=== PATIENT | male | born 1960 | race Caucasian/White ===

== ENCOUNTER 2016-10-18 15:42 | Inpatient (IN) | payer MEDICAID, OTHER ==
[2016-10-18] MEDS ORDERED: Etomidate 20 mg/10ml Inj IV ONE (16:00)
[2016-10-18] MEDS ORDERED: Succinylcholine Chloride 20 mg/ml Syr (5 ml) IV ONE (16:00)
[2016-10-18] MEDS ORDERED: Enalaprilat 2.5 MG/2 ML IV STA (16:05)
--- NOTE | 2016-10-18 16:08 | CT ---
PROCEDURE: CT HEAD WITHOUT CONTRAST. HISTORY: code stroke COMPARISON: None available. TECHNIQUE: Axial computed tomography images were obtained through the head/brain without intravenous contrast. Radiation dose: Total exam DLP = 1321.05 mGy-cm. FINDINGS: HEMORRHAGE: There is acute left basal ganglia hemorrhage. There is intraventricular hemorrhage. There is mass effect upon the left lateral aspect of the 3rd ventricle by the hemorrhagic left basal ganglia. There is no generalized midline shift. There is blood seen in the lateral, 3rd and 4th ventricles and foraminae of Luschka. BRAIN: There is no intracranial mass identified. Minimal cerebral atrophy. Mild to moderate periventricular white matter lucency consistent with chronic microvascular ischemic change. VENTRICLES: As above. Intraventricular hemorrhage. No hydrocephalus. CALVARIUM: Unremarkable. PARANASAL SINUSES: Air-fluid level in the sphenoid sinus common nonspecific. Please correlate for clinical concern of acute sinusitis. MASTOID AIR CELLS: Unremarkable as visualized. No inflammatory changes. OTHER FINDINGS: None. IMPRESSION: Left basal ganglia acute hemorrhage, possibly hypertensive, with associated intraventricular hemorrhage and mass effect upon the left lateral aspect of the 3rd ventricle with the tip shift of the 3rd ventricle towards the right side. No generalized midline shift. Air-fluid level in sphenoid sinus common nonspecific. Please correlate for concern regarding acute sinusitis. Mild involutional changes. The findings in this examination were discussed, by telephone, with Dr. Cornelius at 4:02 p.m. on 10/18/2016.
[2016-10-18 16:14] LABS: BASO # 0.1 K/uL (0.0-0.2); BASO % 0.7 % (0.0-2.0); EOS # 0.1 K/uL (0.0-0.7); HEMATOCRIT 38.7 % (35.0-51.0); LYMPH # 1.9 K/uL (1.0-4.3); LYMPH % 22.3 % (20.0-40.0); MEAN CELL VOLUME 81.9 fL (80.0-94.0); MEAN CORPUSCULAR HGB CONC 32.9 g/dL (33.0-37.0); MEAN PLATELET VOLUME 8.5 fL (7.2-11.7); MONO # 0.4 K/uL (0.0-0.8); MONO % 5.1 % (0.0-10.0); RED CELL DISTRIBUTION WIDTH 14.7 % (11.5-14.5); WHITE BLOOD COUNT 8.4 K/uL (4.8-10.8)
[2016-10-18] MEDS ORDERED: Enalaprilat 2.5 MG/2 ML ONE (16:16)
[2016-10-18 16:25] LABS: INR 1.1
[2016-10-18 16:32] LABS: CHLORIDE 101 mmol/L (98-107); SODIUM 142 mmol/L (132-148)
[2016-10-18 16:33] LABS: POTASSIUM 3.7 mmol/L (3.6-5.2)
[2016-10-18 16:34] LABS: CHOLESTEROL 202 mg/dL (0-199); GFR AFRICAN-AMERICAN > 60
[2016-10-18 16:35] LABS: ALB/GLOB RATIO 1.2 (1.0-2.1); ALKALINE PHOSPHATASE 67 U/L (38-126); ALT/SGPT 26 U/L (21-72); AST/SGOT 29 U/L (17-59); BILIRUBIN,TOTAL 0.7 mg/dL (0.2-1.3); BLOOD UREA NITROGEN 26 mg/dL (9-20); CALCIUM 8.2 mg/dl (8.6-10.4); CARBON DIOXIDE 27 mmol/L (22-30); GLUCOSE,RANDOM 124 mg/dL (75-110); TOTAL PROTEIN 7.1 g/dL (6.3-8.3)
[2016-10-18] MEDS ORDERED: Labetalol 25mg/5ml Syringe ONE (17:05)
[2016-10-18] MEDS ORDERED: Labetalol 25mg/5ml Syringe IVP STA (17:09)
[2016-10-18] MEDS ORDERED: Labetalol 300 MG in Dextrose 5% In Water 240 ML IV STA (17:24)
--- NOTE | 2016-10-18 17:36 | CP.PCM.HP ---
<Jh Salas - Last Filed: 10/18/16 17:30> History of Present Illness - History of Present Illness History of Present Illness: Internal Medicine H&P Dr. Carrero CC: Intracranial Bleed HPI: This is a 56yo M with unknown past medical history presenting for medical evaluation of intracranial bleed. The patient arrived to the ED intubated and sedated. The patients ventilator is presently set to FiO2 100%, PEEP 5, tidal volume 500mL, and a respiratory rate of 14. The patient is accompanied by his daughter who last saw the patient this morning around 10-11AM. The patient was asymptomatic at that time according to the daughter. The patient recently [place]. The daughter is unsure of the patients past medical history. The patient is per the daughter, but is currently . 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" Present on Admission - Present on Admission Any Indicators Present on Admission: No History of DVT/PE: No History of Uncontrolled Diabetes: No Urinary Catheter: No Decubitus Ulcer Present: No Review of Systems - Review of Systems Systems not reviewed;Unavailable: Intubated Past Patient History - Infectious Disease Hx of Infectious Diseases: None - Past Social History Smoking Status: Never Smoked - PSYCHIATRIC Hx Substance Use: No Meds Allergies/Adverse Reactions: Allergies Allergy/AdvReac Type Severity Reaction Status Date / Time No Known Allergies Allergy Verified 10/18/16 15:57 Physical Exam - Constitutional Additional comments: Critically Ill, Intubated and Sedated - Head Exam Head Exam: NORMOCEPHALIC Additional comments: ET Tube in Place - Eye Exam Eye Exam: EOMI, Normal appearance. absent: Scleral icterus Pupil Exam: Fixed, Miosis. absent: NORMAL ACCOMODATION, PERRL Additional comments: pupils 2mm B/L Non-reactive to light - ENT Exam ENT Exam: Mucous Membranes Moist - Neck Exam Neck exam: Positive for: Normal Inspection - Respiratory Exam Respiratory Exam: Rhonchi, NORMAL BREATHING PATTERN. absent: Accessory Muscle Use, Clear to Auscultation Bilateral, Rales - Cardiovascular Exam Cardiovascular Exam: Tachycardia, RRR, +S1, +S2. absent: Diastolic murmur, REGULAR RHYTHM, Systolic Murmur - GI/Abdominal Exam GI & Abdominal Exam: Normal Bowel Sounds, Soft. absent: Distended, Firm, Guarding, Tenderness - Extremities Exam Extremities exam: Positive for: normal capillary refill, normal inspection, pedal pulses present - Neurological Exam Additional comments: Corneal Reflex Intact Intubated and Sedated - Skin Skin Exam: Dry, Intact, Normal Color, Warm Results - Vital Signs Recent Vital Signs: Last Vital Signs Temp Pulse 71 10/18/16 15:45 Resp 16 10/18/16 15:45 BP 186/101 H 10/18/16 15:45 Pulse Ox 100 10/18/16 15:45 - Labs Result Diagrams: 10/18/16 16:09 10/18/16 16:09 Labs: Laboratory Results - last 24 hr 10/18/16 16:09 WBC 8.4 RBC 4.72 Hgb 12.7 Hct 38.7 MCV 81.9 MCH 27.0 MCHC 32.9 L RDW 14.7 H Plt Count 269 MPV 8.5 Neut % (Auto) 70.9 Lymph % (Auto) 22.3 [place] % (Auto) 5.1 Eos % (Auto) 1.0 Baso % (Auto) 0.7 Neut # 6.0 Lymph # 1.9 [place] # 0.4 Eos # 0.1 Baso # 0.1 PT 12.0 INR 1.1 APTT 29 Sodium 142 Potassium 3.7 Chloride 101 Carbon Dioxide 27 Anion Gap 18 BUN 26 H Creatinine 1.3 Est GFR ( Amer) > 60 Est GFR (Non-Af Amer) 57 Random Glucose 124 H Hemoglobin A1c 5.7 Calcium 8.2 L Total Bilirubin 0.7 AST 29 ALT 26 Alkaline Phosphatase 67 Ammonia < 9 L Troponin I 0.0180 Total Protein 7.1 Albumin 3.9 Globulin 3.2 Albumin/Globulin Ratio 1.2 Triglycerides 63 Cholesterol 202 H LDL Cholesterol Direct 130 H HDL Cholesterol 52 Alcohol, Quantitative < 10 Assessment & Plan - Assessment and Plan (Free Text) Assessment: This is a 56yo M with unknown past medical history presenting for medical evaluation of intracranial bleed. The patient arrived to the ED intubated and sedated. Plan: Neuro: -Sedated s/p etomidate and succinylcholine for intubation -Neurology Consult- Dr. Simpson- recommendations appreciated -Neurosurgery Consult- Dr. Grajeda- as per ER physician conversation with Dr. Grajeda- no surgical intervention indicated -Decrease ICP: Hyperventilate, Decadron 10mg IV q8 -Sedation as needed -Ativan 1mg IV Q6 PRN seizure -10/[address]- Left basal ganglia acute hemorrhage, possibly hypertensive, with associated intraventricular hemorrhage and mass effect upon the left lateral aspect of the 3rd ventricle with the tip shift of the 3rd ventricle towards the right side. No generalized midline shift. Air-fluid level in sphenoid sinus common nonspecific. Please correlate for concern regarding acute sinusitis. Mild involutional changes. Cardio: -Hypertensive Emergency -Labetalol 300mg IV drip at 2mg/min Resp: -Intubated -Hyperventilate to reduce ICP -F/U ABG -10/18 CXR- ET Tube proximal to brisa, no acute pulmonary pathology- official read pending -AM CXR and ABG -Head of Bed to 30* -Keep O2 Sat >92% GI: -Protonix 40mg IV daily -NPO -Place NGT Endo: -Maintain euglycemia -Accucheck ACHS -Novolin R Sliding Scale Low Heme: -Intracranial Bleed -Contraindication for anticoagulation -F/U AM CBC -No Coagulopathy Renal: -Possible Pre-renal Dehydration -No IVF at this time MSK: -Bed Bound -PT Eval : -Plaza in place -Maintain Plaza Care Prophylaxis: -GI- Protonix 40mg IV Daily -DVT- contraindicated 2/2 to intracranial bleed Gus Salas PGY1 - Date & Time Date: 10/18/16 Time: 18:20 Decision To Admit - Pt Status Changed To: Hospital Disposition Of: Inpatient - Admit Certification Admit to Inpatient:: After my assessment, the patient will require hospitalization for at least two midnights. This is because of the severity of symptoms shown, intensity of services needed, and/or the medical risk in this patient being treated as an outpatient. - InPatient: Physician Admission Certification:: After my assessment, the patient will require hospitalization for at least two midnights. This is because of the severity of symptoms shown, intensity of services needed, and/or the medical risk in this patient being treated as an outpatient. Patient will be admitted to the ICU for intesive care and monitoring. - . Bed Request Type: ICU Admitting Physician: Hussein Carrero <Mathew Bailey - Last Filed: 10/18/16 18:32> Results - Vital Signs Recent Vital Signs: Last Vital Signs Temp Pulse 71 10/18/16 15:45 Resp 16 10/18/16 15:45 BP 179/128 H 10/18/16 17:49 Pulse Ox 100 10/18/16 18:01 - Labs Result Diagrams: 10/18/16 16:09 10/18/16 16:09 Attending/Attestation - Attestation I have personally seen and examined this patient.: Yes I have fully participated in the care of the patient.: Yes I have reviewed all pertinent clinical information: Yes Notes (Text): 10/18/16 18:32 Patient seen and examined in the emergency room. Case discussed with house staff. CAT scan of the head reviewed As per neurosurgery neurosurgical intervention indicated Started on labetalol for blood pressure control Ventilatory support and hyperventilation Prognosis poor <Hussein Carrero - Last Filed: 10/19/16 14:17> Results - Vital Signs Recent Vital Signs: Last Vital Signs Temp 98.3 F 10/19/16 12:00 Pulse 88 10/19/16 13:06 Resp 19 10/19/16 13:06 BP 148/99 H 10/19/16 13:06 Pulse Ox 100 10/19/16 13:06 - Labs Result Diagrams: 10/19/16 06:12 10/19/16 06:12 Labs: Laboratory Results - last 24 hr 10/19/16 10/19/16 10/19/16 04:00 05:21 06:12 WBC 12.5 H RBC 4.81 Hgb 12.7 Hct 39.1 MCV 81.3 MCH 26.4 L MCHC 32.5 L RDW 14.9 H Plt Count 271 MPV 8.7 Neut % (Auto) 86.6 H Lymph % (Auto) 8.2 L [place] % (Auto) 4.7 Eos % (Auto) 0.0 Baso % (Auto) 0.5 Neut # 10.8 H Lymph # 1.0 [place] # 0.6 Eos # 0.0 Baso # 0.1 Neutrophils % (Manual) 87 H Lymphocytes % (Manual) 10 L Monocytes % (Manual) 3 Platelet Estimate Normal Hypochromasia (manual) Slight Poikilocytosis (manual Slight Anisocytosis (manual) Slight Tear Drop Cells Slight Ovalocytes Slight Beto Cells Slight PT INR APTT Puncture Site Rrad pCO2 38 pO2 214 H HCO3 27.4 ABG pH 7.46 H ABG Total CO2 28.2 H ABG O2 Saturation 98.5 H ABG Base Excess 3.1 H Kalyan Test Pos ABG Potassium 3.7 A-a O2 Difference 166.0 Respiratory Index 0.8 Sodium 139.0 139 Chloride 108.0 H 98 Glucose 143 H Lactate 1.2 Mechanical Rate 20 FiO2 60.0 Tidal Volume 500 PEEP 5 Potassium 3.8 Carbon Dioxide 25 Anion Gap 20 BUN 19 Creatinine 1.2 Est GFR ( Amer) > 60 Est GFR (Non-Af Amer) > 60 Random Glucose 135 H Hemoglobin A1c 5.7 Calcium 8.2 L Phosphorus 4.2 Magnesium 1.8 Total Bilirubin 0.9 AST 29 ALT 39 Alkaline Phosphatase 66 Total Protein 7.5 Albumin 3.9 Globulin 3.6 Albumin/Globulin Ratio 1.1 Arterial Blood Potassium 3.7 Urine Color Urine Clarity Urine pH Ur Specific [place] Urine Protein Urine Glucose (UA) Urine Ketones Urine Blood Urine Nitrate Urine Bilirubin Urine Urobilinogen Ur Leukocyte Esterase Urine WBC (Auto) Urine RBC (Auto) Ur Squamous Epith Cells Urine Bacteria Urine Opiates Screen Urine Methadone Screen Ur Barbiturates Screen Ur Phencyclidine Scrn Ur Amphetamines Screen U Benzodiazepines Scrn U Oth Cocaine Metabols U Cannabinoids Screen 10/19/16 10/19/16 07:20 07:57 WBC RBC Hgb Hct MCV MCH MCHC RDW Plt Count MPV Neut % (Auto) Lymph % (Auto) [place] % (Auto) Eos % (Auto) Baso % (Auto) Neut # Lymph # [place] # Eos # Baso # Neutrophils % (Manual) Lymphocytes % (Manual) Monocytes % (Manual) Platelet Estimate Hypochromasia (manual) Poikilocytosis (manual Anisocytosis (manual) Tear Drop Cells Ovalocytes Beto Cells PT 12.2 INR 1.1 APTT 32 Puncture Site pCO2 pO2 HCO3 ABG pH ABG Total CO2 ABG O2 Saturation ABG Base Excess Kalyan Test ABG Potassium A-a O2 Difference Respiratory Index Sodium Chloride Glucose Lactate Mechanical Rate FiO2 Tidal Volume PEEP Potassium Carbon Dioxide Anion Gap BUN Creatinine Est GFR ( Amer) Est GFR (Non-Af Amer) Random Glucose Hemoglobin A1c Calcium Phosphorus Magnesium Total Bilirubin AST ALT Alkaline Phosphatase Total Protein Albumin Globulin Albumin/Globulin Ratio Arterial Blood Potassium Urine Color Yellow Urine Clarity Clear Urine pH 5.0 Ur Specific [place] 1.025 Urine Protein 1+ H Urine Glucose (UA) Normal Urine Ketones Negative Urine Blood 2+ H Urine Nitrate Negative Urine Bilirubin Negative Urine Urobilinogen Normal Ur Leukocyte Esterase 2+ H Urine WBC (Auto) 26 H Urine RBC (Auto) 26 H Ur Squamous Epith Cells < 1 Urine Bacteria Rare Urine Opiates Screen Negative Urine Methadone Screen Negative Ur Barbiturates Screen Negative Ur Phencyclidine Scrn Negative Ur Amphetamines Screen Negative U Benzodiazepines Scrn Negative U Oth Cocaine Metabols Negative U Cannabinoids Screen Negative Attending/Attestation - Attestation I have personally seen and examined this patient.: Yes I have fully participated in the care of the patient.: Yes I have reviewed all pertinent clinical information: Yes Notes (Text): Patient with unclear pmh admitted with AMS, found to have basal ganglia hemorrhage; intubated for airway protection; Mental status worsening; at time of exam, only responding to painful stimuli by moving left arm; otherwise obtunded; constricted pupils; Per neurosurgery, no meaningful intervention possible and prognosis very poor; On labetalol drip to control BP; Will continue to monitor progress with neurology/neurosurgery input.
--- NOTE | 2016-10-18 17:55 | C.PDOC ---
Time Seen by Provider: 10/18/16 15:51 Chief Complaint (Nursing): Altered Mental Status History Per: EMS History/Exam Limitations: Clinical Condition Onset/Duration Of Symptoms: Sudden Onset (Just [employer] DES[employer]) Current Symptoms Are (Timing): Still Present Usual Baseline: Alert Oriented, Ambulatory Exacerbating Factor(s): Unknown Use Of Anticoag/Antiplatelets: Unknown Severity: Severe Additional History Per: Prior Records Associated Symptoms: Other (Unresponsive) Past Medical History Reviewed: Historical Data, Nursing Documentation, Vital Signs Vital Signs: Last Vital Signs Temp Pulse 71 10/18/16 15:45 Resp 16 10/18/16 15:45 BP 179/128 H 10/18/16 17:49 Pulse Ox 100 10/18/16 15:45 - Medical History PMH: No Chronic Diseases Family History: States: Unknown Family Hx - Social History Hx Alcohol Use: No Hx Substance Use: No Review Of Systems Review Of Systems: ROS cannot be obtained secondary to pt's inabilty to answer questions. Physical Exam - Physical Exam Appears: Toxic, In Acute Distress, Other (Unresponsive) Skin: Normal Color, Warm, Dry Head: Atraumatic Eye(s): bilateral: Abnormal Pupil (equal, but small) Neck: Normal ROM, No Midline Cervical Tenderness, No Step Off Deformity, Supple Chest: Symmetrical, No Deformity Cardiovascular: Rhythm Regular Respiratory: Normal Breath Sounds, No Accessory Muscle Use Gastrointestinal/Abdominal: Soft, No Tenderness, No Distention Extremity: Normal ROM, No Deformity Neurological/Psych: No Response To Commands Pain Response: No Response To Pain ED Course And Treatment - Laboratory Results Result Diagrams: 10/18/16 16:09 10/18/16 16:09 Lab Interpretation: No Acute Changes ECG: Interpreted By Me, Viewed By Me ECG Rhythm: Sinus Rhythm, Nonspecific Changes Interpretation Of ECG: LVH Rate From EC O2 Sat by Pulse Oximetry: 100 Pulse Ox Interpretation: Normal - Radiology CXR: Interpreted by Me, Viewed By Me CXR Interpretation: Yes: Other (ETT in place) - CT Scan/US CT head Other Rad Studies (CT/US): Read By Radiologist, Radiology Report Reviewed CT/US Interpretation: IMPRESSION: Left basal ganglia acute hemorrhage, possibly hypertensive, with associated intraventricular hemorrhage and mass effect upon the left lateral aspect of the 3rd ventricle with the tip shift of the 3rd ventricle towards the right side. No generalized midline shift. Air- fluid level in sphenoid sinus common nonspecific. Please correlate for concern regarding acute sinusitis. Mild involutional changes. - Physician Consult Information Physician Contacted: Kamran Grajeda (Neurosurg.) Outcome Of Conversation: He states prognosis is extremely poor. No neurosurgical intervension is warranted. Endotracheal Intubation - Endotracheal Intubation Intubated With ETT Size: 7 (7.5) Blade Type Used: Curved Indication: Airway Protection Intubated: Orally Pre-Intubation Airway Assessment: Ventilated And Oxygenated Medications Used During Pre-Intubation: Etomidate Paralyzed With: Succinylcholine Post-Intubation Assessment: ETT Secured AT (cm): (24), Breath Sounds Equal Bilat , Placement Confirmed Via CXR, Color Change W/End Tidal CO2 Detector, Oxygen Saturation: (99) Progress - Interventions Interventions:: Observation, Oxygen - Medications Administered Intravenous: Antihypertensive - Data Reviewed Data Reviewed: Lab, Diagnostic imaging, EKG, Old records - Patient Status Patient status: Partially improved, Critical - Critical Care Citical Care: Excluding Proc Time Critical Care Time: 60 minutes - Continuity of Care Discussed patient case with:: Family-HIPPA compliant, ED Nurse, On-call PMD-pt unassigned Discussed pt. case with budget consultant/specialty: Neurological Surgery, Pulmonary/ Crit. Care - Patient Plan Patient Plan: Admission, ICU rTPA Inclusion/Exclusion - Inclusion Criteria for Altepase Patient is 18 years or Older: Yes Clinical DX Ischemic Stroke Cause Neurological Deficit: No Time of Onset Established Less Than 270 Mins Before [place] Begin: Yes - Exclusion Criteria for Altepase Evidence of an Intracranial Hemorrhage: Yes Disposition Discussed With : Hussein Carrero Comment: He accepted pt on hospitalist service. Doctor Will See Patient In The: Hospital - Disposition Disposition: HOSPITALIZED Disposition Time: 18:00 Condition: SERIOUS - Clinical Impression Clinical Impression: Nontraumatic acute hemorrhage of basal ganglia
--- NOTE | 2016-10-18 18:24 | CP.PCM.CON ---
<Jh Salas - Last Filed: 10/18/16 18:22> History of Present Illness - History of Present Illness History of Present Illness: Critical Care Consultation Note Dr. Bailey CC: Intracranial Bleed HPI: This is a 56yo M with unknown past medical history presenting for critical care evaluation of intracranial bleed. The patient arrived to the ED intubated and sedated. The patients ventilator is presently set to FiO2 100%, PEEP 5, tidal volume 500mL, and a respiratory rate of 14. The patient is accompanied by his daughter who last saw the patient this morning around 10-11AM. The patient was asymptomatic at that time according to the daughter. The patient recently immig[place] in [place]. The daughter is unsure of the patients past medical history. The patient is per the daughter, but is currently . PMH: Unknown Surg: Unknown Allergy: Unknown Social: Recent Immigrant from [facility] Works for an "[employer]" Review of Systems - Review of Systems Systems not reviewed;Unavailable: Intubated Past Patient History - Infectious Disease Hx of Infectious Diseases: None - Past Social History Smoking Status: Never Smoked - PSYCHIATRIC Hx Substance Use: No Meds Allergies/Adverse Reactions: Allergies Allergy/AdvReac Type Severity Reaction Status Date / Time No Known Allergies Allergy Verified 10/18/16 15:57 - Medications Medications: Current Medications Labetalol HCl 300 mg/ Dextrose 300 mls @ 120 mls/hr IV .Q2H30M STA; 2 MG/MIN PRN Reason: Protocol Stop: 10/18/16 19:53 Last Admin: 10/18/16 17:49 Dose: 120 mls/hr Pantoprazole Sodium (Protonix Inj) 40 mg IVP DAILY OMAR Physical Exam - Additional Findings Additional findings: - Constitutional Additional comments: Critically Ill, Intubated and Sedated - Head Exam Head Exam: NORMOCEPHALIC Additional comments: ET Tube in Place - Eye Exam Eye Exam: EOMI, Normal appearance. absent: Scleral icterus Pupil Exam: Fixed, Miosis. absent: NORMAL ACCOMODATION, PERRL Additional comments: pupils 2mm B/L Non-reactive to light - ENT Exam ENT Exam: Mucous Membranes Moist - Neck Exam Neck exam: Positive for: Normal Inspection - Respiratory Exam Respiratory Exam: Rhonchi, NORMAL BREATHING PATTERN. absent: Accessory Muscle Use, Clear to Auscultation Bilateral, Rales - Cardiovascular Exam Cardiovascular Exam: Tachycardia, RRR, +S1, +S2. absent: Diastolic murmur, REGULAR RHYTHM, Systolic Murmur - GI/Abdominal Exam GI & Abdominal Exam: Normal Bowel Sounds, Soft. absent: Distended, Firm, Guarding, Tenderness - Extremities Exam Extremities exam: Positive for: normal capillary refill, normal inspection, pedal pulses present - Neurological Exam Additional comments: Corneal Reflex Intact Intubated and Sedated - Skin Skin Exam: Dry, Intact, Normal Color, Warm Results - Vital Signs Recent Vital Signs: Last Vital Signs Temp Pulse 71 10/18/16 15:45 Resp 16 10/18/16 15:45 BP 179/128 H 10/18/16 17:49 Pulse Ox 100 10/18/16 18:01 - Labs Result Diagrams: 10/18/16 16:09 10/18/16 16:09 Labs: Laboratory Results - last 24 hr 10/18/16 10/18/16 16:09 16:13 WBC 8.4 RBC 4.72 Hgb 12.7 Hct 38.7 MCV 81.9 MCH 27.0 MCHC 32.9 L RDW 14.7 H Plt Count 269 MPV 8.5 Neut % (Auto) 70.9 Lymph % (Auto) 22.3 [place] % (Auto) 5.1 Eos % (Auto) 1.0 Baso % (Auto) 0.7 Neut # 6.0 Lymph # 1.9 [place] # 0.4 Eos # 0.1 Baso # 0.1 PT 12.0 INR 1.1 APTT 29 Sodium 142 Potassium 3.7 Chloride 101 Carbon Dioxide 27 Anion Gap 18 BUN 26 H Creatinine 1.3 Est GFR ( Amer) > 60 Est GFR (Non-Af Amer) 57 Random Glucose 124 H Hemoglobin A1c 5.7 Calcium 8.2 L Total Bilirubin 0.7 AST 29 ALT 26 Alkaline Phosphatase 67 Ammonia < 9 L Troponin I 0.0180 Total Protein 7.1 Albumin 3.9 Globulin 3.2 Albumin/Globulin Ratio 1.2 Triglycerides 63 Cholesterol 202 H LDL Cholesterol Direct 130 H HDL Cholesterol 52 Alcohol, Quantitative < 10 Blood Type O POSITIVE Antibody Screen Negative Assessment & Plan - Assessment and Plan (Free Text) Assessment: This is a 56yo M with unknown past medical history presenting for medical evaluation of intracranial bleed. The patient arrived to the ED intubated and sedated. Plan: Neuro: -Sedated s/p etomidate and succinylcholine for intubation -Neurology Consult- Dr. Simpson- recommendations appreciated -Neurosurgery Consult- Dr. Grajeda- as per ER physician conversation with Dr. Grajeda- no surgical intervention indicated -Decrease ICP: Hyperventilate, Decadron 10mg IV q8 -Sedation as needed -Ativan 1mg IV Q6 PRN seizure -10/[address]- Left basal ganglia acute hemorrhage, possibly hypertensive, with associated intraventricular hemorrhage and mass effect upon the left lateral aspect of the 3rd ventricle with the tip shift of the 3rd ventricle towards the right side. No generalized midline shift. Air-fluid level in sphenoid sinus common nonspecific. Please correlate for concern regarding acute sinusitis. Mild involutional changes. Cardio: -Hypertensive Emergency -Labetalol 300mg IV drip at 2mg/min Resp: -Intubated -Hyperventilate to reduce ICP -F/U ABG -10/18 CXR- ET Tube proximal to brisa, no acute pulmonary pathology- official read pending -AM CXR and ABG -Head of Bed to 30* -Keep O2 Sat >92% GI: -Protonix 40mg IV daily -NPO -Place NGT Endo: -Maintain euglycemia -Accucheck ACHS -Novolin R Sliding Scale Low Heme: -Intracranial Bleed -Contraindication for anticoagulation -F/U AM CBC -No Coagulopathy Renal: -Possible Pre-renal Dehydration -No IVF at this time MSK: -Bed Bound -PT Eval : -Plaza in place -Maintain Plaza Care Prophylaxis: -GI- Protonix 40mg IV Daily -DVT- contraindicated 2/2 to intracranial bleed Gus Salas PGY1 - Date & Time Date: 10/18/16 Time: 18:24 <Mathew Bailey - Last Filed: 10/18/16 18:34> Meds - Medications Medications: Current Medications Labetalol HCl 300 mg/ Dextrose 300 mls @ 120 mls/hr IV .Q2H30M STA; 2 MG/MIN PRN Reason: Protocol Stop: 10/18/16 19:53 Last Admin: 10/18/16 17:49 Dose: 120 mls/hr Pantoprazole Sodium (Protonix Inj) 40 mg IVP DAILY OMAR Results - Vital Signs Recent Vital Signs: Last Vital Signs Temp Pulse 71 10/18/16 15:45 Resp 16 10/18/16 15:45 BP 179/128 H 10/18/16 17:49 Pulse Ox 100 10/18/16 18:01 - Labs Result Diagrams: 10/18/16 16:09 10/18/16 16:09 Attending/Attestation - Attestation Notes (Text): 10/18/16 18:34 I have personally seen and examined this patient.: Yes I have fully participated in the care of the patient.: Yes I have reviewed all pertinent clinical information: Yes Notes (Text): 10/18/16 18:32 Patient seen and examined in the emergency room. Case discussed with house staff. CAT scan of the head reviewed As per neurosurgery neurosurgical intervention indicated Started on labetalol for blood pressure control Ventilatory support and hyperventilation Prognosis poor
[2016-10-18] MEDS ORDERED: Labetalol 300 MG in Dextrose 5% In Water 240 ML IV SCH (20:30)
[2016-10-18] MEDS: niCARdipine IV 25 MG in Sodium Chloride 0.9% 240 ML IV SCH (20:40)
[2016-10-18] MEDS: Dexamethasone 4 mg/1 ml IV SCH (22:00)
[2016-10-18] MEDS: (Novolin R) Insulin Human Regular 100 units/ml vial SC SCH (22:00)
[2016-10-19] MEDS: niCARdipine IV 25 MG in Sodium Chloride 0.9% 240 ML IV SCH ×4 (01:30→16:14)
[2016-10-19 05:33] LABS: ABG ALLEN TEST POS; ABG MECHANICAL RATE 20; ATERIAL BLOOD GAS PEEP 5; DRAW SITE RRAD
[2016-10-19] MEDS: Dexamethasone 4 mg/1 ml IV SCH (05:47)
[2016-10-19 06:31] LABS: CHLORIDE 98 mmol/L (98-107)
[2016-10-19 06:32] LABS: POTASSIUM 3.8 mmol/L (3.6-5.2); SODIUM 139 mmol/L (132-148)
[2016-10-19 06:34] LABS: AST/SGOT 29 U/L (17-59); BILIRUBIN,TOTAL 0.9 mg/dL (0.2-1.3); CARBON DIOXIDE 25 mmol/L (22-30); GFR AFRICAN-AMERICAN > 60
[2016-10-19 06:35] LABS: ALB/GLOB RATIO 1.1 (1.0-2.1); ALKALINE PHOSPHATASE 66 U/L (38-126); ALT/SGPT 39 U/L (21-72); BLOOD UREA NITROGEN 19 mg/dL (9-20); CALCIUM 8.2 mg/dl (8.6-10.4); GLUCOSE,RANDOM 135 mg/dL (75-110); MAGNESIUM 1.8 mg/dL (1.6-2.3); PHOSPHOROUS 4.2 mg/dL (2.5-4.5); TOTAL PROTEIN 7.5 g/dL (6.3-8.3)
[2016-10-19] MEDS: (Novolin R) Insulin Human Regular 100 units/ml vial SC SCH ×3 (06:35→18:02)
[2016-10-19 06:39] LABS: BASO # 0.1 K/uL (0.0-0.2); BASO % 0.5 % (0.0-2.0); HEMATOCRIT 39.1 % (35.0-51.0); LYMPH % 8.2 % (20.0-40.0); MEAN CELL VOLUME 81.3 fL (80.0-94.0); MEAN CORPUSCULAR HEMOGLOBIN 26.4 pg (27.0-31.0); MEAN CORPUSCULAR HGB CONC 32.5 g/dL (33.0-37.0); MEAN PLATELET VOLUME 8.7 fL (7.2-11.7); MONO # 0.6 K/uL (0.0-0.8); MONO % 4.7 % (0.0-10.0); PLATELET COUNT 271 K/uL (130-400); RED CELL DISTRIBUTION WIDTH 14.9 % (11.5-14.5); WHITE BLOOD COUNT 12.5 K/uL (4.8-10.8)
[2016-10-19] MEDS ORDERED: Mannitol 12.5 gm/50 ml Inj IV ONE ×2 (07:30→15:26)
[2016-10-19 07:49] LABS: RBC URINE 26 /hpf (0-3); URINE BILIRUBIN NEGATIVE (NEGATIVE); URINE BLOOD 2+ (NEGATIVE); URINE COLOR Yellow (YELLOW); URINE GLUCOSE (UA) NORMAL (Normal); URINE KETONE NEGATIVE (NEGATIVE); URINE LEUKOCYTE ESTERASE 2+ Leu/uL (Negative); URINE PROTEIN 1+ mg/dL (NEGATIVE); URINE UROBILINOGEN NORMAL mg/dL (0.2-1.0); WBC URINE 26 /hpf (0-5)
--- NOTE | 2016-10-19 08:03 | CON ---
DATE: 10/19/2016 REASON FOR CONSULTATION: Abnormal CAT scan and change in mental status. CHIEF COMPLAINT: The patient was brought in to [facility] Emergency Room via EMT with a history of found him collapsed in the bus. Immediate CAT scan was done. The CAT scan showed intracerebral bleed. From neurological point of view, I was called in to evaluate him for further management. HISTORY OF PRESENT ILLNESS: The patient a 56-year-old right-handed unfortunate [employer] person who recently migrated 2 years. He had been found unresponsive in the bus. The patient was br ought in to [facility] and the workup does show left basal ganglia bleed with extension into the ventricles. The patient was intubated to stabilize his cardiopulmonary status. No seizures, no myoclonic jerks have been observed since his admission. PAST MEDICAL HISTORY: Hypertensive as per his son. It is controlled with medication. PERSONAL HISTORY: Denies smoking. Social drinking. ALLERGIES: No known allergies. REVIEW OF SYSTEMS: As per H and P. MEDICATIONS: Lorazepam, dexamethasone, nicardipine, Novolin. PHYSICAL EXAMINATION: VITAL SIGNS: Blood pressure 163/101 with mean arterial pressure of 116, pulse rate 89 regular, respi ratory rate 16, temperature afebrile. NEUROLOGIC EXAMINATION: The patient is examined in the presence of his daughter and sons. He is obt unded. Some spontaneous movement noted on his left side leg and arm. Eyes are closed. NECK: Supple, no carotid bruit. HEART: Sounds regular. MENTAL STATUS: On forcible of passive opening of eyelid, pupil sluggishly reactive to light, some di sconjugate gaze noted. Left eye moved to the left. Good corneal reflex. Gag is present. Right hank e hemiplegic, left side is increased tone. DEEP TENDON REFLEXES: Absent throughout. Plantars are upgoing on the right side; left side was mute . SENSORY: Not responding to pain stimuli on both sides. CONCLUSION: The patient has been presenting with obtundation (global cerebral dysfunction with patch y brainstem dysfunction) with right hemiplegia and left decerebration posture on noxious stimuli, con sistent with increased intracerebral pressure. BLOOD WORKUP: WBC 12.5, hemoglobin 12.7, hematocrit 39.1, platelet 271. Sodium 139, potassium 3.8, chloride 98, bicarbonate 20, BUN 19, creatinine 1.2, GFR more than 60, glucose 135. Cholesterol 202, HDL 52. RECOMMENDATIONS: 1. Keep the head in elevation. Keep the mean arterial pressure around 100. 2. Mannitol can be given to decrease intracerebral pressure. 3. Decadron is no use. That can be and discontinued. 4. Will repeat CT of the head to assess the bleeding progress. 5. EEG and carotid Doppler to assess the cerebral blood flow. ADDENDUM: The patient's condition has been well discussed with all family members. They are aware o f his critical illness. Enoc Simpson MD cc: [id number] TT: 10/19/2016 08:03:17 Confirmation # [id number] Dictation # [id number]
[2016-10-19 08:06] LABS: URINE BACTERIA RARE (<OCC)
[2016-10-19 08:13] LABS: INR 1.1
[2016-10-19 08:25] LABS: NEUTROPHIL 87 % (50-75); TOTAL CELLS COUNTED 100
--- NOTE | 2016-10-19 08:55 | CP.CCUPN ---
<Maritza,Jh - Last Filed: 10/19/16 13:36> CCU Subjective - Physician Review Subjective (Free Text): 10/19/16 08:53 Patient seen and examined at the bedside. The patient appears in no acute distress. No acute events overnight. The nursing staff reports no issues. The patient's family remains present at the bedside. The patient is intubated. The nicardipine drip has been decreased from 25mg/hr to 20mg/hr. The patient was sent for a repeat CT scan of the head this morning as per Dr. Simpson and the neurology service. Today, the patient was given 1 dose of 12.5g of mannitol. The patient's decadron was DC and his magnesium was replaced. Critical Care Time Spent (in minutes): 90 CCU Objective - Vital Signs / Intake & Output Vital Signs (Last 4 hours): Vital Signs Pulse Resp BP Pulse Ox 10/19/16 07:05 90 21 148/96 H 100 10/19/16 07:00 90 22 100 10/19/16 06:55 87 21 150/93 H 100 10/19/16 06:06 87 21 150/93 H 100 10/19/16 06:00 88 21 100 10/19/16 05:05 93 H 22 148/88 100 10/19/16 05:00 92 H 21 100 Intake and Output (Last 8hrs): Intake & Output 10/18/16 10/19/16 10/19/16 22:59 06:59 14:59 Intake Total 315 225 25 Output Total 400 700 100 Balance -85 -475 -75 Weight 72.575 kg Intake: Intake, IV Amount 315 225 25 Left Antecubital 315 225 25 Oral 0 0 Output: Urine 400 700 100 Urethral (Plaza) 400 700 100 - Physical Exam Physical Exam Limitations: Positive for: Other (intubated) Head: Positive for: Atraumatic, Normocephalic Pupils: Positive for: PERRL (minimal, sluggish reactivity to light), Pinpoint ( 2mm b/l) Conjunctiva: Positive for: Normal Pharnyx: Positive for: Other (cough and gag reflex intact) Respiratory/Chest: Positive for: Clear to Auscultation, Good Air Exchange. Negative for: Respiratory Distress, Accessory Muscle Use Cardiovascular: Positive for: Regular Rate and Rhythm, Normal S1, S2. Negative for: Murmurs Abdomen: Positive for: Normal Bowel Sounds. Negative for: Tenderness, Distention, Peritoneal Signs Upper Extremity: Positive for: Normal Inspection. Negative for: Cyanosis, Edema Lower Extremity: Positive for: Normal Inspection. Negative for: Edema Skin: Positive for: Warm, Dry, Normal Color. Negative for: Rashes Other physical findings (Free Text): intubated - Medications Active Medications: Active Medications Generic Name Dose Route Start Last Admin Trade Name Freq PRN Reason Stop Dose Admin Nicardipine HCl 25 mg/ Sodium 250 mls @ 50 mls/hr 10/18/16 20:30 10/19/16 04:25 Chloride IV 50 mls/hr .Q5H OMAR Administration Insulin Human Regular 0 unit 10/18/16 22:00 10/19/16 06:35 Novolin R SC Not Given ACHS OMAR Protocol Lorazepam 1 mg 10/18/16 19:26 Ativan IVP Q6H PRN Seizure activity Pantoprazole Sodium 40 mg 10/19/16 10:00 Protonix Inj IVP DAILY OMAR - Patient Studies Lab Studies: Lab Studies 10/19/16 10/19/16 10/19/16 Range/Units 07:57 07:20 06:12 WBC 12.5 H (4.8-10.8) K/uL RBC 4.81 (4.40-5.90) Mil/uL Hgb 12.7 (12.0-18.0) g/dL Hct 39.1 (35.0-51.0) % MCV 81.3 (80.0-94.0) fL MCH 26.4 L (27.0-31.0) pg MCHC 32.5 L (33.0-37.0) g/dL RDW 14.9 H (11.5-14.5) % Plt Count 271 (130-400) K/uL MPV 8.7 (7.2-11.7) fL Neut % (Auto) 86.6 H (50.0-75.0) % Lymph % (Auto) 8.2 L (20.0-40.0) % Woodson % (Auto) 4.7 (0.0-10.0) % Eos % (Auto) 0.0 (0.0-4.0) % Baso % (Auto) 0.5 (0.0-2.0) % Neut # 10.8 H (1.8-7.0) K/uL Lymph # 1.0 (1.0-4.3) K/uL Woodson # 0.6 (0.0-0.8) K/uL Eos # 0.0 (0.0-0.7) K/uL Baso # 0.1 (0.0-0.2) K/uL Neutrophils % (Manual) 87 H (50-75) % Lymphocytes % (Manual) 10 L (20-40) % Monocytes % (Manual) 3 (0-10) % Platelet Estimate Normal (NORMAL) Hypochromasia (manual) Slight Poikilocytosis (manual Slight Anisocytosis (manual) Slight Tear Drop Cells Slight Ovalocytes Slight [place] Cells Slight PT 12.2 (9.7-12.2) SECONDS INR 1.1 APTT 32 (21-34) SECONDS Puncture Site pCO2 (35-45) mm/Hg pO2 (80-100) mm/Hg HCO3 (21-28) mmol/L ABG pH (7.35-7.45) ABG Total CO2 (22-28) mmol/L ABG O2 Saturation (95-98) % ABG Base Excess (-2.0-3.0) mmol/L Kalyan Test ABG Potassium (3.6-5.2) mmol/L A-a O2 Difference mm/Hg Respiratory Index Glucose (75-110) mg/dl Lactate (0.7-2.1) mmol/L Mechanical Rate FiO2 % Tidal Volume PEEP Sodium 139 (132-148) mmol/L Potassium 3.8 (3.6-5.2) mmol/L Chloride 98 (98-107) mmol/L Carbon Dioxide 25 (22-30) mmol/L Anion Gap 20 (10-20) BUN 19 (9-20) mg/dL Creatinine 1.2 (0.8-1.5) MG/DL Est GFR ( Amer) > 60 Est GFR (Non-Af Amer) > 60 Random Glucose 135 H (75-110) mg/dL Hemoglobin A1c (4.2-6.5) % Calcium 8.2 L (8.6-10.4) mg/dl Phosphorus 4.2 (2.5-4.5) mg/dL Magnesium 1.8 (1.6-2.3) mg/dL Total Bilirubin 0.9 (0.2-1.3) mg/dL AST 29 (17-59) U/L ALT 39 (21-72) U/L Alkaline Phosphatase 66 (38-126) U/L Total Protein 7.5 (6.3-8.3) g/dL Albumin 3.9 (3.5-5.0) g/dL Globulin 3.6 (2.2-3.9) gm/dL Albumin/Globulin Ratio 1.1 (1.0-2.1) Arterial Blood Potassium (3.6-5.2) mmol/L Urine Color Yellow (YELLOW) Urine Clarity Clear (Clear) Urine pH 5.0 (5.0-8.0) Ur Specific [place] 1.025 (1.003-1.030) Urine Protein 1+ H (NEGATIVE) mg/dL Urine Glucose (UA) Normal (Normal) mg/dL Urine Ketones Negative (NEGATIVE) mg/dL Urine Blood 2+ H (NEGATIVE) Urine Nitrate Negative (NEGATIVE) Urine Bilirubin Negative (NEGATIVE) Urine Urobilinogen Normal (0.2-1.0) mg/dL Ur Leukocyte Esterase 2+ H (Negative) Eula/uL Urine WBC (Auto) 26 H (0-5) /hpf Urine RBC (Auto) 26 H (0-3) /hpf Ur Squamous Epith Cells < 1 (0-5) /hpf Urine Bacteria Rare (<OCC) Urine Opiates Screen Negative (NEGATIVE) Urine Methadone Screen Negative (NEGATIVE) Ur Barbiturates Screen Negative (NEGATIVE) Ur Phencyclidine Scrn Negative (NEGATIVE) Ur Amphetamines Screen Negative (NEGATIVE) U Benzodiazepines Scrn Negative (NEGATIVE) U Oth Cocaine Metabols Negative (NEGATIVE) U Cannabinoids Screen Negative (NEGATIVE) 10/19/16 10/19/16 Range/Units 05:21 04:00 WBC (4.8-10.8) K/uL RBC (4.40-5.90) Mil/uL Hgb (12.0-18.0) g/dL Hct (35.0-51.0) % MCV (80.0-94.0) fL MCH (27.0-31.0) pg MCHC (33.0-37.0) g/dL RDW (11.5-14.5) % Plt Count (130-400) K/uL MPV (7.2-11.7) fL Neut % (Auto) (50.0-75.0) % Lymph % (Auto) (20.0-40.0) % Woodson % (Auto) (0.0-10.0) % Eos % (Auto) (0.0-4.0) % Baso % (Auto) (0.0-2.0) % Neut # (1.8-7.0) K/uL Lymph # (1.0-4.3) K/uL Woodson # (0.0-0.8) K/uL Eos # (0.0-0.7) K/uL Baso # (0.0-0.2) K/uL Neutrophils % (Manual) (50-75) % Lymphocytes % (Manual) (20-40) % Monocytes % (Manual) (0-10) % Platelet Estimate (NORMAL) Hypochromasia (manual) Poikilocytosis (manual Anisocytosis (manual) Tear Drop Cells Ovalocytes [place] Cells PT (9.7-12.2) SECONDS INR APTT (21-34) SECONDS Puncture Site Rrad pCO2 38 (35-45) mm/Hg pO2 214 H (80-100) mm/Hg HCO3 27.4 (21-28) mmol/L ABG pH 7.46 H (7.35-7.45) ABG Total CO2 28.2 H (22-28) mmol/L ABG O2 Saturation 98.5 H (95-98) % ABG Base Excess 3.1 H (-2.0-3.0) mmol/L Kalyan Test Pos ABG Potassium 3.7 (3.6-5.2) mmol/L A-a O2 Difference 166.0 mm/Hg Respiratory Index 0.8 Glucose 143 H (75-110) mg/dl Lactate 1.2 (0.7-2.1) mmol/L Mechanical Rate 20 FiO2 60.0 % Tidal Volume 500 PEEP 5 Sodium 139.0 (132-148) mmol/L Potassium (3.6-5.2) mmol/L Chloride 108.0 H (98-107) mmol/L Carbon Dioxide (22-30) mmol/L Anion Gap (10-20) BUN (9-20) mg/dL Creatinine (0.8-1.5) MG/DL Est GFR ( Amer) Est GFR (Non-Af Amer) Random Glucose (75-110) mg/dL Hemoglobin A1c 5.7 (4.2-6.5) % Calcium (8.6-10.4) mg/dl Phosphorus (2.5-4.5) mg/dL Magnesium (1.6-2.3) mg/dL Total Bilirubin (0.2-1.3) mg/dL AST (17-59) U/L ALT (21-72) U/L Alkaline Phosphatase (38-126) U/L Total Protein (6.3-8.3) g/dL Albumin (3.5-5.0) g/dL Globulin (2.2-3.9) gm/dL Albumin/Globulin Ratio (1.0-2.1) Arterial Blood Potassium 3.7 (3.6-5.2) mmol/L Urine Color (YELLOW) Urine Clarity (Clear) Urine pH (5.0-8.0) Ur Specific [place] (1.003-1.030) Urine Protein (NEGATIVE) mg/dL Urine Glucose (UA) (Normal) mg/dL Urine Ketones (NEGATIVE) mg/dL Urine Blood (NEGATIVE) Urine Nitrate (NEGATIVE) Urine Bilirubin (NEGATIVE) Urine Urobilinogen (0.2-1.0) mg/dL Ur Leukocyte Esterase (Negative) Eula/uL Urine WBC (Auto) (0-5) /hpf Urine RBC (Auto) (0-3) /hpf Ur Squamous Epith Cells (0-5) /hpf Urine Bacteria (<OCC) Urine Opiates Screen (NEGATIVE) Urine Methadone Screen (NEGATIVE) Ur Barbiturates Screen (NEGATIVE) Ur Phencyclidine Scrn (NEGATIVE) Ur Amphetamines Screen (NEGATIVE) U Benzodiazepines Scrn (NEGATIVE) U Oth Cocaine Metabols (NEGATIVE) U Cannabinoids Screen (NEGATIVE) Laboratory Results - last 24 hr 10/19/16 10/19/16 10/19/16 04:00 05:21 06:12 WBC 12.5 H RBC 4.81 Hgb 12.7 Hct 39.1 MCV 81.3 MCH 26.4 L MCHC 32.5 L RDW 14.9 H Plt Count 271 MPV 8.7 Neut % (Auto) 86.6 H Lymph % (Auto) 8.2 L Woodson % (Auto) 4.7 Eos % (Auto) 0.0 Baso % (Auto) 0.5 Neut # 10.8 H Lymph # 1.0 Woodson # 0.6 Eos # 0.0 Baso # 0.1 Neutrophils % (Manual) 87 H Lymphocytes % (Manual) 10 L Monocytes % (Manual) 3 Platelet Estimate Normal Hypochromasia (manual) Slight Poikilocytosis (manual Slight Anisocytosis (manual) Slight Tear Drop Cells Slight Ovalocytes Slight [place] Cells Slight PT INR APTT Puncture Site Rrad pCO2 38 pO2 214 H HCO3 27.4 ABG pH 7.46 H ABG Total CO2 28.2 H ABG O2 Saturation 98.5 H ABG Base Excess 3.1 H Kalyan Test Pos ABG Potassium 3.7 A-a O2 Difference 166.0 Respiratory Index 0.8 Sodium 139.0 139 Chloride 108.0 H 98 Glucose 143 H Lactate 1.2 Mechanical Rate 20 FiO2 60.0 Tidal Volume 500 PEEP 5 Potassium 3.8 Carbon Dioxide 25 Anion Gap 20 BUN 19 Creatinine 1.2 Est GFR ( Amer) > 60 Est GFR (Non-Af Amer) > 60 Random Glucose 135 H Hemoglobin A1c 5.7 Calcium 8.2 L Phosphorus 4.2 Magnesium 1.8 Total Bilirubin 0.9 AST 29 ALT 39 Alkaline Phosphatase 66 Total Protein 7.5 Albumin 3.9 Globulin 3.6 Albumin/Globulin Ratio 1.1 Arterial Blood Potassium 3.7 Urine Color Urine Clarity Urine pH Ur Specific [place] Urine Protein Urine Glucose (UA) Urine Ketones Urine Blood Urine Nitrate Urine Bilirubin Urine Urobilinogen Ur Leukocyte Esterase Urine WBC (Auto) Urine RBC (Auto) Ur Squamous Epith Cells Urine Bacteria Urine Opiates Screen Urine Methadone Screen Ur Barbiturates Screen Ur Phencyclidine Scrn Ur Amphetamines Screen U Benzodiazepines Scrn U Oth Cocaine Metabols U Cannabinoids Screen 10/19/16 10/19/16 07:20 07:57 WBC RBC Hgb Hct MCV MCH MCHC RDW Plt Count MPV Neut % (Auto) Lymph % (Auto) Woodson % (Auto) Eos % (Auto) Baso % (Auto) Neut # Lymph # Woodson # Eos # Baso # Neutrophils % (Manual) Lymphocytes % (Manual) Monocytes % (Manual) Platelet Estimate Hypochromasia (manual) Poikilocytosis (manual Anisocytosis (manual) Tear Drop Cells Ovalocytes Beto Cells PT 12.2 INR 1.1 APTT 32 Puncture Site pCO2 pO2 HCO3 ABG pH ABG Total CO2 ABG O2 Saturation ABG Base Excess Kalyan Test ABG Potassium A-a O2 Difference Respiratory Index Sodium Chloride Glucose Lactate Mechanical Rate FiO2 Tidal Volume PEEP Potassium Carbon Dioxide Anion Gap BUN Creatinine Est GFR ( Amer) Est GFR (Non-Af Amer) Random Glucose Hemoglobin A1c Calcium Phosphorus Magnesium Total Bilirubin AST ALT Alkaline Phosphatase Total Protein Albumin Globulin Albumin/Globulin Ratio Arterial Blood Potassium Urine Color Yellow Urine Clarity Clear Urine pH 5.0 Ur Specific [place] 1.025 Urine Protein 1+ H Urine Glucose (UA) Normal Urine Ketones Negative Urine Blood 2+ H Urine Nitrate Negative Urine Bilirubin Negative Urine Urobilinogen Normal Ur Leukocyte Esterase 2+ H Urine WBC (Auto) 26 H Urine RBC (Auto) 26 H Ur Squamous Epith Cells < 1 Urine Bacteria Rare Urine Opiates Screen Negative Urine Methadone Screen Negative Ur Barbiturates Screen Negative Ur Phencyclidine Scrn Negative Ur Amphetamines Screen Negative U Benzodiazepines Scrn Negative U Oth Cocaine Metabols Negative U Cannabinoids Screen Negative Fingerstick Blood Sugar Results: 131 Review of Systems - Review of Systems Systems not reviewed;Unavailable: Intubated Critical Care Progress Note - Ventilator Checklist Head of Bed 30 Degrees: Yes - Vent Settings MODE:: PRVC TIDAL VOLUME:: 500 RESP RATE:: 20 FIO2:: 100 PEEP:: 5 PRESSURE SUPPORT:: 0 - Extremities/Vascular Does the Patient have a Central Venous Catheter?: No Does the Patient have a Plaza Catheter?: Yes Does the Patient need a Plaza Catheter?: Yes - Prophylaxis GI Prophylaxis GI: PPI - Prophylaxis DVT Prophylaxis DVT: Not Indicated (intracranial hemorrhage) - Nutrition Nutrition: Nutrition Category Date Time Status NPO Diet [DIET] Diets 10/18/16 Breakfast Active Assessment/Plan - Assessment and Plan (Free Text) Assessment: This is a 56yo M with unknown past medical history presenting for medical evaluation of intracranial bleed. The patient arrived to the ED intubated. Today the patient remains intubated. 1 dose of 12.5g of mannitol was given in the presence of clinical brain herniation as per Dr. Simpson and neuro. Plan: Neuro: -intubated -Neurology Consult- Dr. Simpson- keep head of bed elevated. maintain MAP around 100. Mannitol 12.5g x 1. DC decadron. Repeat CT head, EEG with carotid dopplers -Neurosurgery Consult- Dr. Grajeda- as per ER physician conversation with Dr. Grajeda- no surgical intervention indicated- will review follow up repeat CT head -Decrease ICP: Hyperventilate, Mannitol 12.5g IV x1 -Sedation as needed -Ativan 1mg IV Q6 PRN seizure -10/19 CT Head- Little interval change in the known 2.0 x 2.7 cm acute hematoma in the left thalamus with intraventricular extension of hemorrhage. Interval mild worsening of obstructive hydrocephalus. -10/[address]- Left basal ganglia acute hemorrhage, possibly hypertensive, with associated intraventricular hemorrhage and mass effect upon the left lateral aspect of the 3rd ventricle with the tip shift of the 3rd ventricle towards the right side. No generalized midline shift. Air-fluid level in sphenoid sinus common nonspecific. Please correlate for concern regarding acute sinusitis. Mild involutional changes. Cardio: -Hypertensive Emergency- reslolved -Nicardipine Drip 20ml/hr Resp: -Intubated -Hyperventilate to reduce ICP -ABG: -10/19 pH 7.46, CO2 38, O2 214, HCO3 27.4 -Imaging -10/19 CXR- New nasogastric tube extends to distal esophagus, above the diaphragm. Repositioning is advised. ET tube unchanged. No infiltrate. -10/18 CXR- ET Tube proximal to brisa, no acute pulmonary pathology- official read pending -AM CXR and ABG -Head of Bed to 30* -Keep O2 Sat >92% GI: -Protonix 40mg IV daily -NPO -NGT advanced Endo: -Maintain euglycemia -Accucheck ACHS -Novolin R Sliding Scale Low Heme: -Intracranial Bleed -Contraindication for anticoagulation -F/U AM CBC -No Coagulopathy Renal: -Possible Pre-renal Dehydration -NS 500ml bolus -IVF- NS 125ml/hr MSK: -Bed Bound -PT Eval : -Plaza in place -Maintain Plaza Care Prophylaxis: -GI- Protonix 40mg IV Daily -DVT- contraindicated /2 to intracranial bleed Gus Salas PGY1 - Date & Time Date: 10/19/16 Time: 08:58 <Mathew Bailey - Last Filed: 10/19/16 15:29> CCU Objective - Vital Signs / Intake & Output Vital Signs (Last 4 hours): Vital Signs Temp Pulse Resp BP Pulse Ox 10/19/16 15:00 78 20 100 10/19/16 14:44 78 20 100 10/19/16 14:06 86 21 160/89 H 100 10/19/16 14:00 82 21 100 10/19/16 13:09 87 20 100 10/19/16 13:06 88 19 148/99 H 100 10/19/16 13:00 88 20 100 10/19/16 12:06 86 20 147/88 100 10/19/16 12:05 85 20 100 10/19/16 12:00 98.3 F 89 18 100 Intake and Output (Last 8hrs): Intake & Output 10/19/16 10/19/16 10/19/16 06:59 14:59 22:59 Intake Total 225 870 125 Output Total 700 410 40 Balance -475 460 85 Intake: Intake, IV Amount 225 870 125 Left Antecubital 225 95 0 Right Forearm 775 125 Oral 0 Output: Urine 700 410 40 Urethral (Plaza) 700 410 40 Other: # Bowel Movements 0 0 - Medications Active Medications: Active Medications Generic Name Dose Route Start Last Admin Trade Name Freq PRN Reason Stop Dose Admin Sodium Chloride 1,000 mls @ 125 mls/hr 10/19/16 12:30 10/19/16 13:12 Sodium Chloride 0.9% IV 125 mls/hr .Q8H OMAR Administration Nicardipine HCl 25 mg/ Sodium 250 mls @ 25 mls/hr 10/19/16 16:00 Chloride IV .Q10H OMAR Protocol 2.5 MG/HR Insulin Human Regular 0 unit 10/19/16 18:00 Novolin R SC Q6 OMAR Protocol Lorazepam 1 mg 10/18/16 19:26 Ativan IVP Q6H PRN Seizure activity Mannitol 100 gm 10/19/16 15:26 Mannitol IV 10/19/16 15:27 ONCE ONE Pantoprazole Sodium 40 mg 10/19/16 10:00 10/19/16 09:25 Protonix Inj IVP 40 mg DAILY OMAR Administration - Patient Studies Lab Studies: Lab Studies 10/19/16 10/19/16 10/19/16 Range/Units 07:57 07:20 06:12 WBC 12.5 H (4.8-10.8) K/uL RBC 4.81 (4.40-5.90) Mil/uL Hgb 12.7 (12.0-18.0) g/dL Hct 39.1 (35.0-51.0) % MCV 81.3 (80.0-94.0) fL MCH 26.4 L (27.0-31.0) pg MCHC 32.5 L (33.0-37.0) g/dL RDW 14.9 H (11.5-14.5) % Plt Count 271 (130-400) K/uL MPV 8.7 (7.2-11.7) fL Neut % (Auto) 86.6 H (50.0-75.0) % Lymph % (Auto) 8.2 L (20.0-40.0) % Woodson % (Auto) 4.7 (0.0-10.0) % Eos % (Auto) 0.0 (0.0-4.0) % Baso % (Auto) 0.5 (0.0-2.0) % Neut # 10.8 H (1.8-7.0) K/uL Lymph # 1.0 (1.0-4.3) K/uL Woodson # 0.6 (0.0-0.8) K/uL Eos # 0.0 (0.0-0.7) K/uL Baso # 0.1 (0.0-0.2) K/uL Neutrophils % (Manual) 87 H (50-75) % Lymphocytes % (Manual) 10 L (20-40) % Monocytes % (Manual) 3 (0-10) % Platelet Estimate Normal (NORMAL) Hypochromasia (manual) Slight Poikilocytosis (manual Slight Anisocytosis (manual) Slight Tear Drop Cells Slight Ovalocytes Slight [place] Cells Slight PT 12.2 (9.7-12.2) SECONDS INR 1.1 APTT 32 (21-34) SECONDS Puncture Site pCO2 (35-45) mm/Hg pO2 (80-100) mm/Hg HCO3 (21-28) mmol/L ABG pH (7.35-7.45) ABG Total CO2 (22-28) mmol/L ABG O2 Saturation (95-98) % ABG Base Excess (-2.0-3.0) mmol/L Kalyan Test ABG Potassium (3.6-5.2) mmol/L A-a O2 Difference mm/Hg Respiratory Index Glucose (75-110) mg/dl Lactate (0.7-2.1) mmol/L Mechanical Rate FiO2 % Tidal Volume PEEP Sodium 139 (132-148) mmol/L Potassium 3.8 (3.6-5.2) mmol/L Chloride 98 (98-107) mmol/L Carbon Dioxide 25 (22-30) mmol/L Anion Gap 20 (10-20) BUN 19 (9-20) mg/dL Creatinine 1.2 (0.8-1.5) MG/DL Est GFR ( Amer) > 60 Est GFR (Non-Af Amer) > 60 Random Glucose 135 H (75-110) mg/dL Hemoglobin A1c (4.2-6.5) % Calcium 8.2 L (8.6-10.4) mg/dl Phosphorus 4.2 (2.5-4.5) mg/dL Magnesium 1.8 (1.6-2.3) mg/dL Total Bilirubin 0.9 (0.2-1.3) mg/dL AST 29 (17-59) U/L ALT 39 (21-72) U/L Alkaline Phosphatase 66 (38-126) U/L Total Protein 7.5 (6.3-8.3) g/dL Albumin 3.9 (3.5-5.0) g/dL Globulin 3.6 (2.2-3.9) gm/dL Albumin/Globulin Ratio 1.1 (1.0-2.1) Arterial Blood Potassium (3.6-5.2) mmol/L Urine Color Yellow (YELLOW) Urine Clarity Clear (Clear) Urine pH 5.0 (5.0-8.0) Ur Specific [place] 1.025 (1.003-1.030) Urine Protein 1+ H (NEGATIVE) mg/dL Urine Glucose (UA) Normal (Normal) mg/dL Urine Ketones Negative (NEGATIVE) mg/dL Urine Blood 2+ H (NEGATIVE) Urine Nitrate Negative (NEGATIVE) Urine Bilirubin Negative (NEGATIVE) Urine Urobilinogen Normal (0.2-1.0) mg/dL Ur Leukocyte Esterase 2+ H (Negative) Eula/uL Urine WBC (Auto) 26 H (0-5) /hpf Urine RBC (Auto) 26 H (0-3) /hpf Ur Squamous Epith Cells < 1 (0-5) /hpf Urine Bacteria Rare (<OCC) Urine Opiates Screen Negative (NEGATIVE) Urine Methadone Screen Negative (NEGATIVE) Ur Barbiturates Screen Negative (NEGATIVE) Ur Phencyclidine Scrn Negative (NEGATIVE) Ur Amphetamines Screen Negative (NEGATIVE) U Benzodiazepines Scrn Negative (NEGATIVE) U Oth Cocaine Metabols Negative (NEGATIVE) U Cannabinoids Screen Negative (NEGATIVE) 10/19/16 10/19/16 Range/Units 05:21 04:00 WBC (4.8-10.8) K/uL RBC (4.40-5.90) Mil/uL Hgb (12.0-18.0) g/dL Hct (35.0-51.0) % MCV (80.0-94.0) fL MCH (27.0-31.0) pg MCHC (33.0-37.0) g/dL RDW (11.5-14.5) % Plt Count (130-400) K/uL MPV (7.2-11.7) fL Neut % (Auto) (50.0-75.0) % Lymph % (Auto) (20.0-40.0) % Woodson % (Auto) (0.0-10.0) % Eos % (Auto) (0.0-4.0) % Baso % (Auto) (0.0-2.0) % Neut # (1.8-7.0) K/uL Lymph # (1.0-4.3) K/uL Woodson # (0.0-0.8) K/uL Eos # (0.0-0.7) K/uL Baso # (0.0-0.2) K/uL Neutrophils % (Manual) (50-75) % Lymphocytes % (Manual) (20-40) % Monocytes % (Manual) (0-10) % Platelet Estimate (NORMAL) Hypochromasia (manual) Poikilocytosis (manual Anisocytosis (manual) Tear Drop Cells Ovalocytes [place] Cells PT (9.7-12.2) SECONDS INR APTT (21-34) SECONDS Puncture Site Rrad pCO2 38 (35-45) mm/Hg pO2 214 H (80-100) mm/Hg HCO3 27.4 (21-28) mmol/L ABG pH 7.46 H (7.35-7.45) ABG Total CO2 28.2 H (22-28) mmol/L ABG O2 Saturation 98.5 H (95-98) % ABG Base Excess 3.1 H (-2.0-3.0) mmol/L Kalyan Test Pos ABG Potassium 3.7 (3.6-5.2) mmol/L A-a O2 Difference 166.0 mm/Hg Respiratory Index 0.8 Glucose 143 H (75-110) mg/dl Lactate 1.2 (0.7-2.1) mmol/L Mechanical Rate 20 FiO2 60.0 % Tidal Volume 500 PEEP 5 Sodium 139.0 (132-148) mmol/L Potassium (3.6-5.2) mmol/L Chloride 108.0 H (98-107) mmol/L Carbon Dioxide (22-30) mmol/L Anion Gap (10-20) BUN (9-20) mg/dL Creatinine (0.8-1.5) MG/DL Est GFR ( Amer) Est GFR (Non-Af Amer) Random Glucose (75-110) mg/dL Hemoglobin A1c 5.7 (4.2-6.5) % Calcium (8.6-10.4) mg/dl Phosphorus (2.5-4.5) mg/dL Magnesium (1.6-2.3) mg/dL Total Bilirubin (0.2-1.3) mg/dL AST (17-59) U/L ALT (21-72) U/L Alkaline Phosphatase (38-126) U/L Total Protein (6.3-8.3) g/dL Albumin (3.5-5.0) g/dL Globulin (2.2-3.9) gm/dL Albumin/Globulin Ratio (1.0-2.1) Arterial Blood Potassium 3.7 (3.6-5.2) mmol/L Urine Color (YELLOW) Urine Clarity (Clear) Urine pH (5.0-8.0) Ur Specific [place] (1.003-1.030) Urine Protein (NEGATIVE) mg/dL Urine Glucose (UA) (Normal) mg/dL Urine Ketones (NEGATIVE) mg/dL Urine Blood (NEGATIVE) Urine Nitrate (NEGATIVE) Urine Bilirubin (NEGATIVE) Urine Urobilinogen (0.2-1.0) mg/dL Ur Leukocyte Esterase (Negative) [place]/uL Urine WBC (Auto) (0-5) /hpf Urine RBC (Auto) (0-3) /hpf Ur Squamous Epith Cells (0-5) /hpf Urine Bacteria (<OCC) Urine Opiates Screen (NEGATIVE) Urine Methadone Screen (NEGATIVE) Ur Barbiturates Screen (NEGATIVE) Ur Phencyclidine Scrn (NEGATIVE) Ur Amphetamines Screen (NEGATIVE) U Benzodiazepines Scrn (NEGATIVE) U Oth Cocaine Metabols (NEGATIVE) U Cannabinoids Screen (NEGATIVE) Laboratory Results - last 24 hr 10/19/16 10/19/16 10/19/16 04:00 05:21 06:12 WBC 12.5 H RBC 4.81 Hgb 12.7 Hct 39.1 MCV 81.3 MCH 26.4 L MCHC 32.5 L RDW 14.9 H Plt Count 271 MPV 8.7 Neut % (Auto) 86.6 H Lymph % (Auto) 8.2 L [place] % (Auto) 4.7 Eos % (Auto) 0.0 Baso % (Auto) 0.5 Neut # 10.8 H Lymph # 1.0 Woodson # 0.6 Eos # 0.0 Baso # 0.1 Neutrophils % (Manual) 87 H Lymphocytes % (Manual) 10 L Monocytes % (Manual) 3 Platelet Estimate Normal Hypochromasia (manual) Slight Poikilocytosis (manual Slight Anisocytosis (manual) Slight Tear Drop Cells Slight Ovalocytes Slight Beto Cells Slight PT INR APTT Puncture Site Rrad pCO2 38 pO2 214 H HCO3 27.4 ABG pH 7.46 H ABG Total CO2 28.2 H ABG O2 Saturation 98.5 H ABG Base Excess 3.1 H Kalyan Test Pos ABG Potassium 3.7 A-a O2 Difference 166.0 Respiratory Index 0.8 Sodium 139.0 139 Chloride 108.0 H 98 Glucose 143 H Lactate 1.2 Mechanical Rate 20 FiO2 60.0 Tidal Volume 500 PEEP 5 Potassium 3.8 Carbon Dioxide 25 Anion Gap 20 BUN 19 Creatinine 1.2 Est GFR ( Amer) > 60 Est GFR (Non-Af Amer) > 60 Random Glucose 135 H Hemoglobin A1c 5.7 Calcium 8.2 L Phosphorus 4.2 Magnesium 1.8 Total Bilirubin 0.9 AST 29 ALT 39 Alkaline Phosphatase 66 Total Protein 7.5 Albumin 3.9 Globulin 3.6 Albumin/Globulin Ratio 1.1 Arterial Blood Potassium 3.7 Urine Color Urine Clarity Urine pH Ur Specific [place] Urine Protein Urine Glucose (UA) Urine Ketones Urine Blood Urine Nitrate Urine Bilirubin Urine Urobilinogen Ur Leukocyte Esterase Urine WBC (Auto) Urine RBC (Auto) Ur Squamous Epith Cells Urine Bacteria Urine Opiates Screen Urine Methadone Screen Ur Barbiturates Screen Ur Phencyclidine Scrn Ur Amphetamines Screen U Benzodiazepines Scrn U Oth Cocaine Metabols U Cannabinoids Screen 10/19/16 10/19/16 07:20 07:57 WBC RBC Hgb Hct MCV MCH MCHC RDW Plt Count MPV Neut % (Auto) Lymph % (Auto) [place] % (Auto) Eos % (Auto) Baso % (Auto) Neut # Lymph # [place] # Eos # Baso # Neutrophils % (Manual) Lymphocytes % (Manual) Monocytes % (Manual) Platelet Estimate Hypochromasia (manual) Poikilocytosis (manual Anisocytosis (manual) Tear Drop Cells Ovalocytes Beto Cells PT 12.2 INR 1.1 APTT 32 Puncture Site pCO2 pO2 HCO3 ABG pH ABG Total CO2 ABG O2 Saturation ABG Base Excess [place] Test ABG Potassium A-a O2 Difference Respiratory Index Sodium Chloride Glucose Lactate Mechanical Rate FiO2 Tidal Volume PEEP Potassium Carbon Dioxide Anion Gap BUN Creatinine Est GFR ( Amer) Est GFR (Non-Af Amer) Random Glucose Hemoglobin A1c Calcium Phosphorus Magnesium Total Bilirubin AST ALT Alkaline Phosphatase Total Protein Albumin Globulin Albumin/Globulin Ratio Arterial Blood Potassium Urine Color Yellow Urine Clarity Clear Urine pH 5.0 Ur Specific [place] 1.025 Urine Protein 1+ H Urine Glucose (UA) Normal Urine Ketones Negative Urine Blood 2+ H Urine Nitrate Negative Urine Bilirubin Negative Urine Urobilinogen Normal Ur Leukocyte Esterase 2+ H Urine WBC (Auto) 26 H Urine RBC (Auto) 26 H Ur Squamous Epith Cells < 1 Urine Bacteria Rare Urine Opiates Screen Negative Urine Methadone Screen Negative Ur Barbiturates Screen Negative Ur Phencyclidine Scrn Negative Ur Amphetamines Screen Negative U Benzodiazepines Scrn Negative U Oth Cocaine Metabols Negative U Cannabinoids Screen Negative Critical Care Progress Note - Nutrition Nutrition: Nutrition Category Date Time Status NPO Diet [DIET] Diets 10/18/16 Breakfast Active Attending/Attestation - Attestation I have personally seen and examined this patient.: Yes I have fully participated in the care of the patient.: Yes I have reviewed all pertinent clinical information: Yes Notes (Text): 10/19/16 15:27 Patient seen and examined in the intensive care unit. Case discussed withthe morning rounds. Remains intubated on ventilatory support Seen by neurology Positive gag and corneal reflexes Pupils pinpoint Mannitol 100 g 1 dose EEG Repeat CAT scan of the head noted Neurosurgical follow-up Started on Cardene drip at 2.5 mg per hour to keep the systolic pressure between 140s to 150
--- NOTE | 2016-10-19 09:30 | CT ---
PROCEDURE: CT HEAD WITHOUT CONTRAST. HISTORY: F/U COMPARISON: None available. TECHNIQUE: Axial computed tomography images were obtained through the head/brain without intravenous contrast. Radiation dose: Total exam DLP = 1130.89 mGy-cm. FINDINGS: HEMORRHAGE: Since the prior examination, there has been no significant interval change in the known 2.0 x 2.7 cm acute hematoma in the left thalamus with intraventricular extension of hemorrhage and resultant obstructive hydrocephalus. BRAIN: No mass effect or edema. No atrophy or chronic microvascular ischemic changes. VENTRICLES: Interval mild worsening of hydrocephalus. CALVARIUM: Unremarkable. PARANASAL SINUSES: There are fluid levels in the sphenoid, an expected finding in intubated patient. The remaining visualized paranasal sinuses are clear. MASTOID AIR CELLS: Unremarkable as visualized. No inflammatory changes. OTHER FINDINGS: None. IMPRESSION: Little interval change in the known 2.0 x 2.7 cm acute hematoma in the left thalamus with intraventricular extension of hemorrhage. Interval mild worsening of obstructive hydrocephalus.
--- NOTE | 2016-10-19 10:53 | CON ---
DATE: 10/18/2016 A rather unfortunate gentleman was found unresponsive, brought to the [facility] ER, found to be completely unresponsive with worsening clinical status. CT of the brain documented a large thalamic bleed. I was thus contacted. I reviewed the CAT scan. This is a basically massive deep mesencephalic hemorrhage, which is no t really compatible with any meaningful chance for survival. The hemorrhage has completely blown out his left thalamus. It has ruptured down into the mid brain, even down to the left joel. There is b lood filling the fourth ventricle and aqueduct, although at this point, there is really no hydrocepha jacqeulin. The entire brain looks quite disturbed. There is scattered subarachnoid blood. Again, I do no t think this is compatible with any meaningful survival. I related this impression to Dr. Cornelius in the ER, perhaps suggested not initiating any aggressive care, as again, the patient's prognosis is dismal. Kamran Grajeda MD cc: [id number] TT: 10/19/2016 10:53:00 Confirmation # [id number] Dictation # [id number] nav
--- NOTE | 2016-10-19 11:10 | RAD ---
HISTORY: ET Tube Evaluation COMPARISON: 10/18/2016 FINDINGS: LUNGS: No active pulmonary disease. PLEURA: No significant pleural effusion identified, no pneumothorax apparent. CARDIOVASCULAR: Normal heart size. ET tube unchanged. New nasogastric tube extends to the distal esophagus. It is seen to terminate above the diaphragm. . There is placement of the portion of the nasogastric tube external to the patient overlying the thorax and upper abdomen. Repositioning of the nasogastric tube is advised. OSSEOUS STRUCTURES: No significant abnormalities. VISUALIZED UPPER ABDOMEN: Normal. OTHER FINDINGS: None. IMPRESSION: New nasogastric tube extends to distal esophagus, above the diaphragm. Repositioning is advised. ET tube unchanged. No infiltrate.
--- NOTE | 2016-10-19 11:26 | RAD ---
HISTORY: AMS COMPARISON: None available. TECHNIQUE: Chest, one view. FINDINGS: Endotracheal tube terminates approximately 5.4 cm above the level of the brisa. LUNGS: No focal consolidation. Please note that chest x-ray has limited sensitivity for the detection of pulmonary masses. PLEURA: No significant pleural effusion identified. No definite pneumothorax . CARDIOVASCULAR: The cardiomediastinal silhouette appears within normal limits of size. OSSEOUS STRUCTURES: Degenerative changes. VISUALIZED UPPER ABDOMEN: Unremarkable. OTHER FINDINGS: None. IMPRESSION: Endotracheal tube terminates approximately 5.4 cm above the level of the brisa.
[2016-10-19] MEDS ORDERED: Propofol 10 mg/ml Inj (20 ML) ONE (11:34)
[2016-10-19] MEDS ORDERED: Propofol 10 mg/ml Inj (20 ML) IV ONE (11:53)
--- NOTE | 2016-10-19 11:59 | CON ---
DATE: 10/19/2016 This is a 56-year-old individual that [place] train, brought to the [facility] ER, found to have a very large thalamic hemorrhage that ruptured throughout the basal ganglia and down into the brainstem. I had counseled the Emergency Room physician last night that there is reall y no chance here of a meaningful recovery and I would suggest not initiating aggressive care. In any case, the patient was intubated, he was admitted to the ICU. He had a followup CT. Today, he is no w currently having a triple lumen central venous catheter placed. Thus, the patient is currently unavailable for examination to me. His CAT scan is basically unchange d. Most specifically as far as I am concerned, there has been no development of hydrocephalus despit e the intraventricular hemorrhage. By report from the nursing staff, he is only moving his left side slightly. He has disconjugate gaze. He is completely unresponsive. IMPRESSION AND PLAN: I reiterate my opinion that there really is minimal, if any, chance of a meanin gful recovery here and I believe the family should be spoken to about perhaps backing off the very ag gressive care he is currently receiving. Kamran Grajeda MD cc: [id number] TT: 10/19/2016 11:58:14 Confirmation # [id number] Dictation # [id number] samuel
[2016-10-19] MEDS ORDERED: Sodium Chloride 0.9% 500 ML IV ONE (12:26)
--- NOTE | 2016-10-19 12:26 | RAD ---
HISTORY: S/P TLC Attempt COMPARISON: 10/19/2016 FINDINGS: LUNGS: Endotracheal tube extending into the mid thoracic trachea. NG tube extending into the stomach. Additional external tubes and wires. No focal infiltrate or effusion. PLEURA: No significant pleural effusion identified, no pneumothorax apparent. CARDIOVASCULAR: Normal. OSSEOUS STRUCTURES: No significant abnormalities. VISUALIZED UPPER ABDOMEN: Normal. OTHER FINDINGS: None. IMPRESSION: Endotracheal tube extending into the mid thoracic trachea. NG tube extending into the stomach. Additional external tubes and wires. No focal infiltrate or effusion.
[2016-10-19] MEDS: Sodium Chloride 0.9% 1,000 ML IV SCH ×2 (13:12→20:47)
--- NOTE | 2016-10-19 16:39 | CP.PCM.PN ---
Subjective - Date & Time of Evaluation Date of Evaluation: 10/19/16 Time of Evaluation: 16:20 - Subjective Subjective: Patient's family reported that he moved his R arm; otherwise nursing reporting that patient moving both legs and L arm; Objective - Vital Signs/Intake and Output Vital Signs (last 24 hours): Temp Pulse Resp BP Pulse Ox 98.3 F 78 20 160/89 H 100 10/19/16 12:00 10/19/16 15:00 10/19/16 15:00 10/19/16 14:06 10/19/16 15:00 Intake and Output: 10/19/16 10/19/16 06:59 18:59 Intake Total 540 995 Output Total 1100 450 Balance -560 545 - Medications Medications: Current Medications Sodium Chloride (Sodium Chloride 0.9%) 1,000 mls @ 125 mls/hr IV .Q8H OMAR Last Admin: 10/19/16 13:12 Dose: 125 mls/hr Nicardipine HCl 25 mg/ Sodium (Chloride) 250 mls @ 25 mls/hr IV .Q10H OMAR; 2.5 MG/HR PRN Reason: Protocol Last Admin: 10/19/16 16:14 Dose: 25 mls/hr Mannitol (Mannitol) 250 mls @ 500 mls/hr IV .Q30M OMAR Stop: 10/19/16 16:59 Last Admin: 10/19/16 16:18 Dose: 500 mls/hr Insulin Human Regular (Novolin R) 0 unit SC Q6 OMAR PRN Reason: Protocol Lorazepam (Ativan) 1 mg IVP Q6H PRN PRN Reason: Seizure activity Pantoprazole Sodium (Protonix Inj) 40 mg IVP DAILY OMAR Last Admin: 10/19/16 09:25 Dose: 40 mg - Labs Labs: 10/19/16 06:12 10/19/16 06:12 PT 12.2 SECONDS (9.7-12.2) 10/19/16 07:57 INR 1.1 10/19/16 07:57 APTT 32 SECONDS (21-34) 10/19/16 07:57 - Constitutional Appears: Non-toxic, No Acute Distress - Head Exam Head Exam: NORMAL INSPECTION - Eye Exam Eye Exam: absent: Conjunctival injection, Scleral icterus Additional comments: pupils constricted - ENT Exam Additional comments: intubated - Neck Exam Neck Exam: Normal Inspection - Respiratory Exam Respiratory Exam: Clear to Ausculation Bilateral, NORMAL BREATHING PATTERN - Cardiovascular Exam Cardiovascular Exam: REGULAR RHYTHM, +S1, +S2 - GI/Abdominal Exam GI & Abdominal Exam: Soft. absent: Distended, Tenderness - Extremities Exam Extremities Exam: absent: Pedal Edema - Neurological Exam Additional comments: Obtunded; responds to painful stimuli; opens eyelids partially; - Skin Skin Exam: Warm. absent: Cyanosis Assessment and Plan (1) Intracranial hemorrhage Assessment & Plan: Basal ganglia hemorrhage; no role for surgical intervention per neurosurgery; no brain edema on CT today; Status: Acute (2) Hypertensive emergency Assessment & Plan: On nicardipine drip with goal SBP 140-150; Status: Acute (3) Altered mental status Assessment & Plan: Patient obtunded but more reactive today; seen by clinical staff to be moving 3/ 4 extremities; on keppra for seizure prophylaxis; Status: Acute (4) CVA (cerebral vascular accident) Assessment & Plan: Secondary to ICH; not moving R arm on my exam; clinically will need to follow extent of brain injury; Status: Acute
--- NOTE | 2016-10-19 18:15 | RAD ---
HISTORY: tlc placed COMPARISON: Chest x-ray performed 10/19/16 TECHNIQUE: Chest, one view. FINDINGS: Nasogastric tube extends expected location of the stomach. Left IJ approach central venous catheter terminates at the expected location of the left innominate vein. The endotracheal tube terminates approximately 5.4 cm above the brisa. LUNGS: No focal consolidation. Please note that chest x-ray has limited sensitivity for the detection of pulmonary masses. PLEURA: No significant pleural effusion identified. No definite pneumothorax . CARDIOVASCULAR: Heart size appears within normal limits. OSSEOUS STRUCTURES: Degenerative changes of the spine. VISUALIZED UPPER ABDOMEN: Unremarkable. OTHER FINDINGS: None. IMPRESSION: Left IJ approach central venous catheter terminates at the expected location of the left innominate vein. Nasogastric tube extends expected location of the stomach. The endotracheal tube terminates approximately 5.4 cm above the brisa.
--- NOTE | 2016-10-19 21:38 | EEG ---
DATE: 10/19/2016 SUBJECTIVE: This is a 16-channel electroencephalogram of obtunded adult. The study was performed at the bedside. The patient was intubated. The resting electroencephalogram consists of 20-30 microvo lt diffuse theta activity superimposed with delta activity seen in bilateral cortical leads. The EKG artifact contaminated the background rhythm. The photic stimulation did not evoke driving response noted at 2-20 Hz. IMPRESSION: This is abnormal electroencephalogram because of persistent slowing throughout the recor d suggestive of bilateral cerebral dysfunction. This is probably secondary to metabolic vascular or degenerative process. Please correlate the finding with the neurological and radiological studies. Enoc Simpson MD cc: [id number] TT: 10/19/2016 21:38:02 Confirmation # [id number] Dictation # [id number] hn
[2016-10-20] MEDS: (Novolin R) Insulin Human Regular 100 units/ml vial SC SCH ×4 (00:23→18:30)
[2016-10-20] MEDS: niCARdipine IV 25 MG in Sodium Chloride 0.9% 240 ML IV SCH ×5 (03:24→23:10)
[2016-10-20] MEDS: Sodium Chloride 0.9% 1,000 ML IV SCH ×3 (04:51→23:12)
[2016-10-20 05:35] LABS: ABG ALLEN TEST POS; ABG MECHANICAL RATE 20; ATERIAL BLOOD GAS PEEP 5; DRAW SITE RRAD
[2016-10-20 06:03] LABS: BASO % 0.1 % (0.0-2.0); HEMATOCRIT 37.8 % (35.0-51.0); LYMPH # 1.1 K/uL (1.0-4.3); LYMPH % 7.2 % (20.0-40.0); MEAN CELL VOLUME 81.3 fL (80.0-94.0); MEAN CORPUSCULAR HEMOGLOBIN 26.5 pg (27.0-31.0); MEAN CORPUSCULAR HGB CONC 32.6 g/dL (33.0-37.0); MEAN PLATELET VOLUME 8.9 fL (7.2-11.7); MONO % 6.7 % (0.0-10.0); PLATELET COUNT 243 K/uL (130-400); RED CELL DISTRIBUTION WIDTH 14.4 % (11.5-14.5); WHITE BLOOD COUNT 15.1 K/uL (4.8-10.8)
[2016-10-20 06:12] LABS: CHLORIDE 103 mmol/L (98-107); SODIUM 142 mmol/L (132-148)
[2016-10-20 06:15] LABS: ALB/GLOB RATIO 1.1 (1.0-2.1); ALKALINE PHOSPHATASE 62 U/L (38-126); AST/SGOT 23 U/L (17-59); BILIRUBIN,TOTAL 0.6 mg/dL (0.2-1.3); BLOOD UREA NITROGEN 22 mg/dL (9-20); CALCIUM 8.3 mg/dl (8.6-10.4); CARBON DIOXIDE 26 mmol/L (22-30); GFR AFRICAN-AMERICAN > 60; GLUCOSE,RANDOM 147 mg/dL (75-110); PHOSPHOROUS 3.5 mg/dL (2.5-4.5)
[2016-10-20 06:16] LABS: ALT/SGPT 29 U/L (21-72); MAGNESIUM 2.2 mg/dL (1.6-2.3)
[2016-10-20] MEDS ORDERED: Mannitol 12.5 gm/50 ml Inj IV ONE (07:30)
[2016-10-20 07:54] LABS: INR 1.1
--- NOTE | 2016-10-20 08:26 | CARD ---
APPROVED REPORT EKG Measurement Heart [id number] MT [id number] <Conclusion> Normal sinus rhythm Voltage criteria for left ventricular hypertrophy Abnormal ECG
--- NOTE | 2016-10-20 08:47 | RAD ---
HISTORY: ET Tube Eval COMPARISON: Chest x-ray performed 10/19/16 TECHNIQUE: Chest, one view. FINDINGS: Distal tip of an endotracheal tube terminates approximately 4.6 cm above the brisa. Left IJ approach central venous catheter terminates at the expected location of the left innominate vein. Nasogastric tube extends the expected location of the stomach. LUNGS: No focal consolidation. Please note that chest x-ray has limited sensitivity for the detection of pulmonary masses. PLEURA: No significant pleural effusion identified. No definite pneumothorax . CARDIOVASCULAR: Heart size appears within normal limits. OSSEOUS STRUCTURES: Degenerative changes of the spine. VISUALIZED UPPER ABDOMEN: Unremarkable. OTHER FINDINGS: None. IMPRESSION: Distal tip of an endotracheal tube terminates approximately 4.6 cm above the brias. Left IJ approach central venous catheter terminates at the expected location of the left innominate vein. Nasogastric tube extends the expected location of the stomach.
--- NOTE | 2016-10-20 08:55 | CP.CCUPN ---
<Jh Salas - Last Filed: 10/20/16 10:43> CCU Subjective - Physician Review Subjective (Free Text): 10/19/16 08:53 Patient seen and examined at the bedside. The patient appears in no acute distress. No acute events overnight. The nursing staff reports no issues. The patient's family remains present at the bedside. The patient is intubated. The nicardipine drip has been decreased from 25mg/hr to 20mg/hr. The patient was sent for a repeat CT scan of the head this morning as per Dr. Simpson and the neurology service. Today, the patient was given 1 dose of 12.5g of mannitol. The patient's decadron was DC and his magnesium was replaced. 10/20/16 08:52 Patient seen and examined at the bedside. The patient appears in no acute distress. No acute events overnight. The nursing staff reports no issues. The patient's family remains present at the bedside. The patient is intubated ( PEEP 5, RATE 20, FiO2 60, TV 500mL, Peak 14). The patient's clinical condition remains unchaged from prior examination. The patient has good strength in his left extremities, but minimal ability to move his right extremities. Today, the patient was given another 100g of mannitol, and a repeat CT head was ordered for evaluation of the intreacranial bleed and hydrocephalous. Critical Care Time Spent (in minutes): 90 CCU Objective - Vital Signs / Intake & Output Vital Signs (Last 4 hours): Vital Signs Pulse Resp BP Pulse Ox 10/20/16 07:06 104 H 16 152/92 H 100 10/20/16 07:00 89 16 100 10/20/16 06:34 74 21 100 10/20/16 06:06 95 H 18 160/94 H 100 10/20/16 06:01 95 H 100 10/20/16 05:31 87 18 100 10/20/16 05:06 88 19 152/75 H 100 10/20/16 05:00 89 20 100 Intake and Output (Last 8hrs): Intake & Output 10/19/16 10/20/16 10/20/16 22:59 06:59 14:59 Intake Total 1825 1390 185 Output Total 1295 1130 100 Balance 530 260 85 Weight 73.482 kg Intake: Intake, IV Amount 1685 1230 165 Left Antecubital 140 Right Forearm 625 Right Antecubital 500 Left Proximal Port 45 230 40 Internal Jugular Left Distal Port Internal 375 1000 125 Jugular Tube Feeding 140 160 20 Output: Urine 1295 1130 100 Urethral (Plaza) 1295 1130 100 Other: # Bowel Movements 0 - Physical Exam Head: Positive for: Atraumatic, Normocephalic Pupils: Positive for: PERRL (minimal reactivity, intact corneal reflex), Pinpoint (2mm b/l) Conjunctiva: Positive for: Normal Pharnyx: Positive for: Other (cough and gag reflex intact) Respiratory/Chest: Positive for: Clear to Auscultation, Good Air Exchange. Negative for: Respiratory Distress, Accessory Muscle Use Cardiovascular: Positive for: Regular Rate and Rhythm, Normal S1, S2. Negative for: Murmurs Abdomen: Positive for: Normal Bowel Sounds. Negative for: Tenderness, Distention, Peritoneal Signs Upper Extremity: Positive for: Normal Inspection. Negative for: Cyanosis, Edema Lower Extremity: Positive for: Normal Inspection. Negative for: Edema Neurological: Positive for: Other (5/5 strength L extremities, minimal 0-1/5 strength R extremities, (-) Babinski B/L) Skin: Positive for: Warm, Dry, Normal Color. Negative for: Rashes - Medications Active Medications: Active Medications Generic Name Dose Route Start Last Admin Trade Name Freq PRN Reason Stop Dose Admin Sodium Chloride 1,000 mls @ 125 mls/hr 10/19/16 12:30 10/20/16 04:51 Sodium Chloride 0.9% IV 125 mls/hr .Q8H OMAR Administration Nicardipine HCl 25 mg/ Sodium 250 mls @ 25 mls/hr 10/19/16 16:00 10/20/16 06:43 Chloride IV 50 mls/hr .Q10H OMAR Administration Protocol 2.5 MG/HR Mannitol 250 mls @ 166.667 mls/hr 10/20/16 09:00 Mannitol IV 10/20/16 10:29 .Q1H30M ONE Mannitol 250 mls @ 166.667 mls/hr 10/20/16 09:00 Mannitol IV 10/20/16 10:29 .Q1H30M ONE Insulin Human Regular 0 unit 10/19/16 18:00 10/20/16 05:32 Novolin R SC Not Given Q6 OMAR Protocol Lorazepam 1 mg 10/18/16 19:26 Ativan IVP Q6H PRN Seizure activity Pantoprazole Sodium 40 mg 10/19/16 10:00 10/19/16 09:25 Protonix Inj IVP 40 mg DAILY OMAR Administration - Patient Studies Lab Studies: Microbiology Studies 10/18/16 Unknown MRSA Culture (Admit) - Final Nose MRSA NOT DETECTED Lab Studies 10/20/16 10/20/16 10/20/16 Range/Units 05:57 05:29 05:25 WBC 15.1 H (4.8-10.8) K/uL RBC 4.65 (4.40-5.90) Mil/uL Hgb 12.3 (12.0-18.0) g/dL Hct 37.8 (35.0-51.0) % MCV 81.3 (80.0-94.0) fL MCH 26.5 L (27.0-31.0) pg MCHC 32.6 L (33.0-37.0) g/dL RDW 14.4 (11.5-14.5) % Plt Count 243 (130-400) K/uL MPV 8.9 (7.2-11.7) fL Neut % (Auto) 86.0 H (50.0-75.0) % Lymph % (Auto) 7.2 L (20.0-40.0) % Maury % (Auto) 6.7 (0.0-10.0) % Eos % (Auto) 0.0 (0.0-4.0) % Baso % (Auto) 0.1 (0.0-2.0) % Neut # 13.0 H (1.8-7.0) K/uL Lymph # 1.1 (1.0-4.3) K/uL Maury # 1.0 H (0.0-0.8) K/uL Eos # 0.0 (0.0-0.7) K/uL Baso # 0.0 (0.0-0.2) K/uL PT 11.9 (9.7-12.2) SECONDS INR 1.1 APTT 31 (21-34) SECONDS Puncture Site Rrad pCO2 37 (35-45) mm/Hg pO2 187 H (80-100) mm/Hg HCO3 26.9 (21-28) mmol/L ABG pH 7.46 H (7.35-7.45) ABG Total CO2 27.4 (22-28) mmol/L ABG O2 Saturation 98.4 H (95-98) % ABG Base Excess 2.5 (-2.0-3.0) mmol/L Kalyan Test Pos ABG Potassium 4.0 (3.6-5.2) mmol/L A-a O2 Difference 195.0 mm/Hg Respiratory Index 1.0 Glucose 151 H (75-110) mg/dl Lactate 0.8 (0.7-2.1) mmol/L Mechanical Rate 20 FiO2 60.0 % Tidal Volume 500 PEEP 5 Sodium 142 140.0 (132-148) mmol/L Potassium 4.0 (3.6-5.2) mmol/L Chloride 103 114.0 H (98-107) mmol/L Carbon Dioxide 26 (22-30) mmol/L Anion Gap 17 (10-20) BUN 22 H (9-20) mg/dL Creatinine 1.1 (0.8-1.5) MG/DL Est GFR ( Amer) > 60 Est GFR (Non-Af Amer) > 60 POC Glucose (mg/dL) 133 H (65-110) mg/dL Random Glucose 147 H (75-110) mg/dL Calcium 8.3 L (8.6-10.4) mg/dl Phosphorus 3.5 (2.5-4.5) mg/dL Magnesium 2.2 (1.6-2.3) mg/dL Total Bilirubin 0.6 (0.2-1.3) mg/dL AST 23 (17-59) U/L ALT 29 (21-72) U/L Alkaline Phosphatase 62 (38-126) U/L Total Protein 7.0 (6.3-8.3) g/dL Albumin 3.6 (3.5-5.0) g/dL Globulin 3.4 (2.2-3.9) gm/dL Albumin/Globulin Ratio 1.1 (1.0-2.1) Arterial Blood Potassium 4.0 (3.6-5.2) mmol/L 10/19/16 10/19/16 10/19/16 Range/Units 23:26 17:52 12:12 WBC (4.8-10.8) K/uL RBC (4.40-5.90) Mil/uL Hgb (12.0-18.0) g/dL Hct (35.0-51.0) % MCV (80.0-94.0) fL MCH (27.0-31.0) pg MCHC (33.0-37.0) g/dL RDW (11.5-14.5) % Plt Count (130-400) K/uL MPV (7.2-11.7) fL Neut % (Auto) (50.0-75.0) % Lymph % (Auto) (20.0-40.0) % Maury % (Auto) (0.0-10.0) % Eos % (Auto) (0.0-4.0) % Baso % (Auto) (0.0-2.0) % Neut # (1.8-7.0) K/uL Lymph # (1.0-4.3) K/uL Maury # (0.0-0.8) K/uL Eos # (0.0-0.7) K/uL Baso # (0.0-0.2) K/uL PT (9.7-12.2) SECONDS INR APTT (21-34) SECONDS Puncture Site pCO2 (35-45) mm/Hg pO2 (80-100) mm/Hg HCO3 (21-28) mmol/L ABG pH (7.35-7.45) ABG Total CO2 (22-28) mmol/L ABG O2 Saturation (95-98) % ABG Base Excess (-2.0-3.0) mmol/L Kalyan Test ABG Potassium (3.6-5.2) mmol/L A-a O2 Difference mm/Hg Respiratory Index Glucose (75-110) mg/dl Lactate (0.7-2.1) mmol/L Mechanical Rate FiO2 % Tidal Volume PEEP Sodium (132-148) mmol/L Potassium (3.6-5.2) mmol/L Chloride (98-107) mmol/L Carbon Dioxide (22-30) mmol/L Anion Gap (10-20) BUN (9-20) mg/dL Creatinine (0.8-1.5) MG/DL Est GFR ( Amer) Est GFR (Non-Af Amer) POC Glucose (mg/dL) 119 H 116 H 139 H (65-110) mg/dL Random Glucose (75-110) mg/dL Calcium (8.6-10.4) mg/dl Phosphorus (2.5-4.5) mg/dL Magnesium (1.6-2.3) mg/dL Total Bilirubin (0.2-1.3) mg/dL AST (17-59) U/L ALT (21-72) U/L Alkaline Phosphatase (38-126) U/L Total Protein (6.3-8.3) g/dL Albumin (3.5-5.0) g/dL Globulin (2.2-3.9) gm/dL Albumin/Globulin Ratio (1.0-2.1) Arterial Blood Potassium (3.6-5.2) mmol/L 10/19/16 Range/Units 06:31 WBC (4.8-10.8) K/uL RBC (4.40-5.90) Mil/uL Hgb (12.0-18.0) g/dL Hct (35.0-51.0) % MCV (80.0-94.0) fL MCH (27.0-31.0) pg MCHC (33.0-37.0) g/dL RDW (11.5-14.5) % Plt Count (130-400) K/uL MPV (7.2-11.7) fL Neut % (Auto) (50.0-75.0) % Lymph % (Auto) (20.0-40.0) % Maury % (Auto) (0.0-10.0) % Eos % (Auto) (0.0-4.0) % Baso % (Auto) (0.0-2.0) % Neut # (1.8-7.0) K/uL Lymph # (1.0-4.3) K/uL Maury # (0.0-0.8) K/uL Eos # (0.0-0.7) K/uL Baso # (0.0-0.2) K/uL PT (9.7-12.2) SECONDS INR APTT (21-34) SECONDS Puncture Site pCO2 (35-45) mm/Hg pO2 (80-100) mm/Hg HCO3 (21-28) mmol/L ABG pH (7.35-7.45) ABG Total CO2 (22-28) mmol/L ABG O2 Saturation (95-98) % ABG Base Excess (-2.0-3.0) mmol/L Kalyan Test ABG Potassium (3.6-5.2) mmol/L A-a O2 Difference mm/Hg Respiratory Index Glucose (75-110) mg/dl Lactate (0.7-2.1) mmol/L Mechanical Rate FiO2 % Tidal Volume PEEP Sodium (132-148) mmol/L Potassium (3.6-5.2) mmol/L Chloride (98-107) mmol/L Carbon Dioxide (22-30) mmol/L Anion Gap (10-20) BUN (9-20) mg/dL Creatinine (0.8-1.5) MG/DL Est GFR ( Amer) Est GFR (Non-Af Amer) POC Glucose (mg/dL) 131 H (65-110) mg/dL Random Glucose (75-110) mg/dL Calcium (8.6-10.4) mg/dl Phosphorus (2.5-4.5) mg/dL Magnesium (1.6-2.3) mg/dL Total Bilirubin (0.2-1.3) mg/dL AST (17-59) U/L ALT (21-72) U/L Alkaline Phosphatase (38-126) U/L Total Protein (6.3-8.3) g/dL Albumin (3.5-5.0) g/dL Globulin (2.2-3.9) gm/dL Albumin/Globulin Ratio (1.0-2.1) Arterial Blood Potassium (3.6-5.2) mmol/L Laboratory Results - last 24 hr 10/19/16 10/19/16 10/19/16 06:31 12:12 17:52 WBC RBC Hgb Hct MCV MCH MCHC RDW Plt Count MPV Neut % (Auto) Lymph % (Auto) Maury % (Auto) Eos % (Auto) Baso % (Auto) Neut # Lymph # Maury # Eos # Baso # PT INR APTT Puncture Site pCO2 pO2 HCO3 ABG pH ABG Total CO2 ABG O2 Saturation ABG Base Excess Kalyan Test ABG Potassium A-a O2 Difference Respiratory Index Sodium Chloride Glucose Lactate Mechanical Rate FiO2 Tidal Volume PEEP Potassium Carbon Dioxide Anion Gap BUN Creatinine Est GFR ( Amer) Est GFR (Non-Af Amer) POC Glucose (mg/dL) 131 H 139 H 116 H Random Glucose Calcium Phosphorus Magnesium Total Bilirubin AST ALT Alkaline Phosphatase Total Protein Albumin Globulin Albumin/Globulin Ratio Arterial Blood Potassium 10/19/16 10/20/16 10/20/16 23:26 05:25 05:29 WBC RBC Hgb Hct MCV MCH MCHC RDW Plt Count MPV Neut % (Auto) Lymph % (Auto) Maury % (Auto) Eos % (Auto) Baso % (Auto) Neut # Lymph # Maury # Eos # Baso # PT INR APTT Puncture Site Rrad pCO2 37 pO2 187 H HCO3 26.9 ABG pH 7.46 H ABG Total CO2 27.4 ABG O2 Saturation 98.4 H ABG Base Excess 2.5 Kalyan Test Pos ABG Potassium 4.0 A-a O2 Difference 195.0 Respiratory Index 1.0 Sodium 140.0 Chloride 114.0 H Glucose 151 H Lactate 0.8 Mechanical Rate 20 FiO2 60.0 Tidal Volume 500 PEEP 5 Potassium Carbon Dioxide Anion Gap BUN Creatinine Est GFR ( Amer) Est GFR (Non-Af Amer) POC Glucose (mg/dL) 119 H 133 H Random Glucose Calcium Phosphorus Magnesium Total Bilirubin AST ALT Alkaline Phosphatase Total Protein Albumin Globulin Albumin/Globulin Ratio Arterial Blood Potassium 4.0 10/20/16 05:57 WBC 15.1 H RBC 4.65 Hgb 12.3 Hct 37.8 MCV 81.3 MCH 26.5 L MCHC 32.6 L RDW 14.4 Plt Count 243 MPV 8.9 Neut % (Auto) 86.0 H Lymph % (Auto) 7.2 L Maury % (Auto) 6.7 Eos % (Auto) 0.0 Baso % (Auto) 0.1 Neut # 13.0 H Lymph # 1.1 Maury # 1.0 H Eos # 0.0 Baso # 0.0 PT 11.9 INR 1.1 APTT 31 Puncture Site pCO2 pO2 HCO3 ABG pH ABG Total CO2 ABG O2 Saturation ABG Base Excess Kalyan Test ABG Potassium A-a O2 Difference Respiratory Index Sodium 142 Chloride 103 Glucose Lactate Mechanical Rate FiO2 Tidal Volume PEEP Potassium 4.0 Carbon Dioxide 26 Anion Gap 17 BUN 22 H Creatinine 1.1 Est GFR ( Amer) > 60 Est GFR (Non-Af Amer) > 60 POC Glucose (mg/dL) Random Glucose 147 H Calcium 8.3 L Phosphorus 3.5 Magnesium 2.2 Total Bilirubin 0.6 AST 23 ALT 29 Alkaline Phosphatase 62 Total Protein 7.0 Albumin 3.6 Globulin 3.4 Albumin/Globulin Ratio 1.1 Arterial Blood Potassium Fingerstick Blood Sugar Results: 133 Review of Systems - Review of Systems Systems not reviewed;Unavailable: Intubated Critical Care Progress Note - Ventilator Checklist Head of Bed 30 Degrees: Yes - Vent Settings MODE:: PRVC TIDAL VOLUME:: 500 RESP RATE:: 20 FIO2:: 60 PEEP:: 5 PRESSURE SUPPORT:: 0 - Extremities/Vascular Does the Patient have a Central Venous Catheter?: Yes Insertion Site: Internal Jugular Vein Does the Patient need a Central Venous Catheter?: Yes Does the Patient have a Plaza Catheter?: Yes Does the Patient need a Plaza Catheter?: Yes - Restraints Justification for Restraints: High risk for self extubation, High risk for removing IV access - Prophylaxis GI Prophylaxis GI: PPI - Prophylaxis DVT Prophylaxis DVT: Not Indicated - Nutrition Nutrition: Nutrition Category Date Time Status NPO Diet [DIET] Diets 10/18/16 Breakfast Active Assessment/Plan - Assessment and Plan (Free Text) Assessment: This is a 56yo M with unknown past medical history presenting for medical evaluation of intracranial bleed. The patient arrived to the ED intubated. Today the patient remains intubated. Another dose of 100g of mannitol was given in the presence of clinical brain herniation/hydrocephalous as per Dr. Simpson and neuro. The patient is for repeat CT head today. Plan: Neuro: -intubated -Neurology Consult- Dr. Simpson- keep head of bed elevated. maintain MAP around 100. Mannitol 12.5g x 1. DC decadron. Repeat CT head, EEG with carotid dopplers -Neurosurgery Consult- Dr. Grajeda- minimal chance for recovery, revisit plan of care -Decrease ICP: Hyperventilate, Mannitol 100g IV x1 -Sedation as needed -Ativan 1mg IV Q6 PRN seizure -Repeat CT head today -10/19 CT Head- Little interval change in the known 2.0 x 2.7 cm acute hematoma in the left thalamus with intraventricular extension of hemorrhage. Interval mild worsening of obstructive hydrocephalus. -10/[address]- Left basal ganglia acute hemorrhage, possibly hypertensive, with associated intraventricular hemorrhage and mass effect upon the left lateral aspect of the 3rd ventricle with the tip shift of the 3rd ventricle towards the right side. No generalized midline shift. Air-fluid level in sphenoid sinus common nonspecific. Please correlate for concern regarding acute sinusitis. Mild involutional changes. -[facility]- 9 -[facility]- 14 Cardio: -Hypertensive Emergency- resolved -Nicardipine Drip- titrate to SBP 140-150 -A-Line placed 10/20/16 -TLC Left IJ placed 10/19/16 Resp: -Intubated: FiO2 50, PEEP 5, Rate 20, TV 500mL -FiO2 reduced from 60%-50% -ABG: -10/20 pH 7.46, CO2 37, O2 187, HCO3 26.9 -10/19 pH 7.46, CO2 38, O2 214, HCO3 27.4 -Imaging -10/20 CXR- Distal tip of an endotracheal tube terminates approximately 4.6 cm above the brisa. Left IJ approach central venous catheter terminates at the expected location of the left innominate vein. Nasogastric tube extends the expected location of the stomach. -10/19 CXR- New nasogastric tube extends to distal esophagus, above the diaphragm. Repositioning is advised. ET tube unchanged. No infiltrate. -10/18 CXR- ET Tube proximal to brisa, no acute pulmonary pathology- official read pending -AM CXR and ABG -Head of Bed to 30* -Keep O2 Sat >92% GI: -Protonix 40mg IV daily -NPO -NGT advanced Endo: -Maintain euglycemia -Accucheck ACHS -Novolin R Sliding Scale Low Heme: -Intracranial Bleed -Contraindication for anticoagulation -F/U AM CBC -No Coagulopathy Renal: -Possible Pre-renal Dehydration -NS 500ml bolus -IVF- NS 125ml/hr -Serum Osm 300 -Repeat BMP- is serum osm <310 redose mannitol 100g IV MSK: -Bed Bound -PT Eval : -Plaza in place -Maintain Plaza Care Prophylaxis: -GI- Protonix 40mg IV Daily -DVT- contraindicated 2/2 to intracranial bleed Gus Nassarndi PGY1 - Date & Time Date: 10/20/16 Time: 10:52 <Moose Larsen - Last Filed: 10/20/16 16:56> CCU Objective - Vital Signs / Intake & Output Vital Signs (Last 4 hours): Vital Signs Temp Pulse Resp BP Pulse Ox 10/20/16 16:43 98 H 19 150/81 10/20/16 16:28 109 H 21 168/85 H 100 10/20/16 16:21 139/61 10/20/16 16:13 97 H 20 159/91 H 100 10/20/16 16:00 99.0 F 97 H 20 100 10/20/16 15:58 98 H 21 155/83 H 100 10/20/16 15:43 107 H 20 163/90 H 100 10/20/16 15:28 101 H 21 160/81 H 10/20/16 15:13 106 H 21 161/81 H 98 10/20/16 15:00 97 H 19 100 10/20/16 14:58 106 H 21 152/83 H 99 10/20/16 14:43 102 H 21 149/87 99 10/20/16 14:28 93 H 20 133/79 100 10/20/16 14:13 138/78 10/20/16 14:00 90 20 100 10/20/16 13:58 93 H 19 139/80 99 10/20/16 13:43 97 H 21 164/85 H 10/20/16 13:28 91 H 20 145/76 99 10/20/16 13:13 103 H 20 154/88 H 10/20/16 13:00 100 H 21 100 10/20/16 12:58 160/90 H Intake and Output (Last 8hrs): Intake & Output 10/20/16 10/20/16 10/20/16 06:59 14:59 22:59 Intake Total 1390 1570 410 Output Total 1130 1325 400 Balance 260 245 10 Intake: Intake, IV Amount 1230 1390 350 Left Proximal Port 230 390 100 Internal Jugular Left Distal Port Internal 1000 1000 250 Jugular Tube Feeding 160 180 60 Output: Urine 1130 1325 400 Urethral (Plaza) 1130 1325 400 - Medications Active Medications: Active Medications Generic Name Dose Route Start Last Admin Trade Name Freq PRN Reason Stop Dose Admin Sodium Chloride 1,000 mls @ 125 mls/hr 10/19/16 12:30 10/20/16 04:51 Sodium Chloride 0.9% IV 125 mls/hr .Q8H OMAR Administration Nicardipine HCl 25 mg/ Sodium 250 mls @ 25 mls/hr 10/19/16 16:00 10/20/16 12:02 Chloride IV 50 mls/hr .Q10H OMAR Administration Protocol 2.5 MG/HR Insulin Human Regular 0 unit 10/19/16 18:00 10/20/16 12:12 Novolin R SC Not Given Q6 OMAR Protocol Lorazepam 1 mg 10/18/16 19:26 Ativan IVP Q6H PRN Seizure activity Pantoprazole Sodium 40 mg 10/19/16 10:00 10/20/16 09:39 Protonix Inj IVP 40 mg DAILY OMAR Administration - Patient Studies Lab Studies: Microbiology Studies 10/18/16 Unknown MRSA Culture (Admit) - Final Nose MRSA NOT DETECTED Lab Studies 10/20/16 10/20/16 10/20/16 Range/Units 11:35 05:57 05:29 WBC 15.1 H (4.8-10.8) K/uL RBC 4.65 (4.40-5.90) Mil/uL Hgb 12.3 (12.0-18.0) g/dL Hct 37.8 (35.0-51.0) % MCV 81.3 (80.0-94.0) fL MCH 26.5 L (27.0-31.0) pg MCHC 32.6 L (33.0-37.0) g/dL RDW 14.4 (11.5-14.5) % Plt Count 243 (130-400) K/uL MPV 8.9 (7.2-11.7) fL Neut % (Auto) 86.0 H (50.0-75.0) % Lymph % (Auto) 7.2 L (20.0-40.0) % Maury % (Auto) 6.7 (0.0-10.0) % Eos % (Auto) 0.0 (0.0-4.0) % Baso % (Auto) 0.1 (0.0-2.0) % Neut # 13.0 H (1.8-7.0) K/uL Lymph # 1.1 (1.0-4.3) K/uL Maury # 1.0 H (0.0-0.8) K/uL Eos # 0.0 (0.0-0.7) K/uL Baso # 0.0 (0.0-0.2) K/uL Neutrophils % (Manual) 84 H (50-75) % Lymphocytes % (Manual) 13 L (20-40) % Monocytes % (Manual) 3 (0-10) % Platelet Estimate Normal (NORMAL) Large Platelets Present Giant Platelets Present Poikilocytosis (manual Slight Anisocytosis (manual) Slight Microcytosis (manual) Slight Macrocytosis (manual) Slight Target Cells Slight Ovalocytes Slight [place] Cells Slight PT 11.9 (9.7-12.2) SECONDS INR 1.1 APTT 31 (21-34) SECONDS Puncture Site pCO2 (35-45) mm/Hg pO2 (80-100) mm/Hg HCO3 (21-28) mmol/L ABG pH (7.35-7.45) ABG Total CO2 (22-28) mmol/L ABG O2 Saturation (95-98) % ABG Base Excess (-2.0-3.0) mmol/L Kalyan Test ABG Potassium (3.6-5.2) mmol/L A-a O2 Difference mm/Hg Respiratory Index Glucose (75-110) mg/dl Lactate (0.7-2.1) mmol/L Mechanical Rate FiO2 % Tidal Volume PEEP Sodium 142 (132-148) mmol/L Potassium 4.0 (3.6-5.2) mmol/L Chloride 103 (98-107) mmol/L Carbon Dioxide 26 (22-30) mmol/L Anion Gap 17 (10-20) BUN 22 H (9-20) mg/dL Creatinine 1.1 (0.8-1.5) MG/DL Est GFR ( Amer) > 60 Est GFR (Non-Af Amer) > 60 POC Glucose (mg/dL) 85 133 H (65-110) mg/dL Random Glucose 147 H (75-110) mg/dL Calcium 8.3 L (8.6-10.4) mg/dl Phosphorus 3.5 (2.5-4.5) mg/dL Magnesium 2.2 (1.6-2.3) mg/dL Total Bilirubin 0.6 (0.2-1.3) mg/dL AST 23 (17-59) U/L ALT 29 (21-72) U/L Alkaline Phosphatase 62 (38-126) U/L Total Protein 7.0 (6.3-8.3) g/dL Albumin 3.6 (3.5-5.0) g/dL Globulin 3.4 (2.2-3.9) gm/dL Albumin/Globulin Ratio 1.1 (1.0-2.1) Arterial Blood Potassium (3.6-5.2) mmol/L 10/20/16 10/19/16 10/19/16 Range/Units 05:25 23:26 17:52 WBC (4.8-10.8) K/uL RBC (4.40-5.90) Mil/uL Hgb (12.0-18.0) g/dL Hct (35.0-51.0) % MCV (80.0-94.0) fL MCH (27.0-31.0) pg MCHC (33.0-37.0) g/dL RDW (11.5-14.5) % Plt Count (130-400) K/uL MPV (7.2-11.7) fL Neut % (Auto) (50.0-75.0) % Lymph % (Auto) (20.0-40.0) % Maury % (Auto) (0.0-10.0) % Eos % (Auto) (0.0-4.0) % Baso % (Auto) (0.0-2.0) % Neut # (1.8-7.0) K/uL Lymph # (1.0-4.3) K/uL Maury # (0.0-0.8) K/uL Eos # (0.0-0.7) K/uL Baso # (0.0-0.2) K/uL Neutrophils % (Manual) (50-75) % Lymphocytes % (Manual) (20-40) % Monocytes % (Manual) (0-10) % Platelet Estimate (NORMAL) Large Platelets Giant Platelets Poikilocytosis (manual Anisocytosis (manual) Microcytosis (manual) Macrocytosis (manual) Target Cells Ovalocytes [place] Cells PT (9.7-12.2) SECONDS INR APTT (21-34) SECONDS Puncture Site Rrad pCO2 37 (35-45) mm/Hg pO2 187 H (80-100) mm/Hg HCO3 26.9 (21-28) mmol/L ABG pH 7.46 H (7.35-7.45) ABG Total CO2 27.4 (22-28) mmol/L ABG O2 Saturation 98.4 H (95-98) % ABG Base Excess 2.5 (-2.0-3.0) mmol/L Kalyan Test Pos ABG Potassium 4.0 (3.6-5.2) mmol/L A-a O2 Difference 195.0 mm/Hg Respiratory Index 1.0 Glucose 151 H (75-110) mg/dl Lactate 0.8 (0.7-2.1) mmol/L Mechanical Rate 20 FiO2 60.0 % Tidal Volume 500 PEEP 5 Sodium 140.0 (132-148) mmol/L Potassium (3.6-5.2) mmol/L Chloride 114.0 H (98-107) mmol/L Carbon Dioxide (22-30) mmol/L Anion Gap (10-20) BUN (9-20) mg/dL Creatinine (0.8-1.5) MG/DL Est GFR ( Amer) Est GFR (Non-Af Amer) POC Glucose (mg/dL) 119 H 116 H (65-110) mg/dL Random Glucose (75-110) mg/dL Calcium (8.6-10.4) mg/dl Phosphorus (2.5-4.5) mg/dL Magnesium (1.6-2.3) mg/dL Total Bilirubin (0.2-1.3) mg/dL AST (17-59) U/L ALT (21-72) U/L Alkaline Phosphatase (38-126) U/L Total Protein (6.3-8.3) g/dL Albumin (3.5-5.0) g/dL Globulin (2.2-3.9) gm/dL Albumin/Globulin Ratio (1.0-2.1) Arterial Blood Potassium 4.0 (3.6-5.2) mmol/L 10/19/16 10/19/16 Range/Units 12:12 06:31 WBC (4.8-10.8) K/uL RBC (4.40-5.90) Mil/uL Hgb (12.0-18.0) g/dL Hct (35.0-51.0) % MCV (80.0-94.0) fL MCH (27.0-31.0) pg MCHC (33.0-37.0) g/dL RDW (11.5-14.5) % Plt Count (130-400) K/uL MPV (7.2-11.7) fL Neut % (Auto) (50.0-75.0) % Lymph % (Auto) (20.0-40.0) % Maury % (Auto) (0.0-10.0) % Eos % (Auto) (0.0-4.0) % Baso % (Auto) (0.0-2.0) % Neut # (1.8-7.0) K/uL Lymph # (1.0-4.3) K/uL Maury # (0.0-0.8) K/uL Eos # (0.0-0.7) K/uL Baso # (0.0-0.2) K/uL Neutrophils % (Manual) (50-75) % Lymphocytes % (Manual) (20-40) % Monocytes % (Manual) (0-10) % Platelet Estimate (NORMAL) Large Platelets Giant Platelets Poikilocytosis (manual Anisocytosis (manual) Microcytosis (manual) Macrocytosis (manual) Target Cells Ovalocytes [place] Cells PT (9.7-12.2) SECONDS INR APTT (21-34) SECONDS Puncture Site pCO2 (35-45) mm/Hg pO2 (80-100) mm/Hg HCO3 (21-28) mmol/L ABG pH (7.35-7.45) ABG Total CO2 (22-28) mmol/L ABG O2 Saturation (95-98) % ABG Base Excess (-2.0-3.0) mmol/L Kalyan Test ABG Potassium (3.6-5.2) mmol/L A-a O2 Difference mm/Hg Respiratory Index Glucose (75-110) mg/dl Lactate (0.7-2.1) mmol/L Mechanical Rate FiO2 % Tidal Volume PEEP Sodium (132-148) mmol/L Potassium (3.6-5.2) mmol/L Chloride (98-107) mmol/L Carbon Dioxide (22-30) mmol/L Anion Gap (10-20) BUN (9-20) mg/dL Creatinine (0.8-1.5) MG/DL Est GFR ( Amer) Est GFR (Non-Af Amer) POC Glucose (mg/dL) 139 H 131 H (65-110) mg/dL Random Glucose (75-110) mg/dL Calcium (8.6-10.4) mg/dl Phosphorus (2.5-4.5) mg/dL Magnesium (1.6-2.3) mg/dL Total Bilirubin (0.2-1.3) mg/dL AST (17-59) U/L ALT (21-72) U/L Alkaline Phosphatase (38-126) U/L Total Protein (6.3-8.3) g/dL Albumin (3.5-5.0) g/dL Globulin (2.2-3.9) gm/dL Albumin/Globulin Ratio (1.0-2.1) Arterial Blood Potassium (3.6-5.2) mmol/L Laboratory Results - last 24 hr 10/19/16 10/19/16 10/19/16 06:31 12:12 17:52 WBC RBC Hgb Hct MCV MCH MCHC RDW Plt Count MPV Neut % (Auto) Lymph % (Auto) Maury % (Auto) Eos % (Auto) Baso % (Auto) Neut # Lymph # Maury # Eos # Baso # Neutrophils % (Manual) Lymphocytes % (Manual) Monocytes % (Manual) Platelet Estimate Large Platelets Giant Platelets Poikilocytosis (manual Anisocytosis (manual) Microcytosis (manual) Macrocytosis (manual) Target Cells Ovalocytes Beto Cells PT INR APTT Puncture Site pCO2 pO2 HCO3 ABG pH ABG Total CO2 ABG O2 Saturation ABG Base Excess [place] Test ABG Potassium A-a O2 Difference Respiratory Index Sodium Chloride Glucose Lactate Mechanical Rate FiO2 Tidal Volume PEEP Potassium Carbon Dioxide Anion Gap BUN Creatinine Est GFR ( Amer) Est GFR (Non-Af Amer) POC Glucose (mg/dL) 131 H 139 H 116 H Random Glucose Calcium Phosphorus Magnesium Total Bilirubin AST ALT Alkaline Phosphatase Total Protein Albumin Globulin Albumin/Globulin Ratio Arterial Blood Potassium 10/19/16 10/20/16 10/20/16 23:26 05:25 05:29 WBC RBC Hgb Hct MCV MCH MCHC RDW Plt Count MPV Neut % (Auto) Lymph % (Auto) Maury % (Auto) Eos % (Auto) Baso % (Auto) Neut # Lymph # Maury # Eos # Baso # Neutrophils % (Manual) Lymphocytes % (Manual) Monocytes % (Manual) Platelet Estimate Large Platelets Giant Platelets Poikilocytosis (manual Anisocytosis (manual) Microcytosis (manual) Macrocytosis (manual) Target Cells Ovalocytes [place] Cells PT INR APTT Puncture Site Rrad pCO2 37 pO2 187 H HCO3 26.9 ABG pH 7.46 H ABG Total CO2 27.4 ABG O2 Saturation 98.4 H ABG Base Excess 2.5 Kalyan Test Pos ABG Potassium 4.0 A-a O2 Difference 195.0 Respiratory Index 1.0 Sodium 140.0 Chloride 114.0 H Glucose 151 H Lactate 0.8 Mechanical Rate 20 FiO2 60.0 Tidal Volume 500 PEEP 5 Potassium Carbon Dioxide Anion Gap BUN Creatinine Est GFR ( Amer) Est GFR (Non-Af Amer) POC Glucose (mg/dL) 119 H 133 H Random Glucose Calcium Phosphorus Magnesium Total Bilirubin AST ALT Alkaline Phosphatase Total Protein Albumin Globulin Albumin/Globulin Ratio Arterial Blood Potassium 4.0 10/20/16 10/20/16 05:57 11:35 WBC 15.1 H RBC 4.65 Hgb 12.3 Hct 37.8 MCV 81.3 MCH 26.5 L MCHC 32.6 L RDW 14.4 Plt Count 243 MPV 8.9 Neut % (Auto) 86.0 H Lymph % (Auto) 7.2 L Maury % (Auto) 6.7 Eos % (Auto) 0.0 Baso % (Auto) 0.1 Neut # 13.0 H Lymph # 1.1 Maury # 1.0 H Eos # 0.0 Baso # 0.0 Neutrophils % (Manual) 84 H Lymphocytes % (Manual) 13 L Monocytes % (Manual) 3 Platelet Estimate Normal Large Platelets Present Giant Platelets Present Poikilocytosis (manual Slight Anisocytosis (manual) Slight Microcytosis (manual) Slight Macrocytosis (manual) Slight Target Cells Slight Ovalocytes Slight [place] Cells Slight PT 11.9 INR 1.1 APTT 31 Puncture Site pCO2 pO2 HCO3 ABG pH ABG Total CO2 ABG O2 Saturation ABG Base Excess Kalyan Test ABG Potassium A-a O2 Difference Respiratory Index Sodium 142 Chloride 103 Glucose Lactate Mechanical Rate FiO2 Tidal Volume PEEP Potassium 4.0 Carbon Dioxide 26 Anion Gap 17 BUN 22 H Creatinine 1.1 Est GFR ( Amer) > 60 Est GFR (Non-Af Amer) > 60 POC Glucose (mg/dL) 85 Random Glucose 147 H Calcium 8.3 L Phosphorus 3.5 Magnesium 2.2 Total Bilirubin 0.6 AST 23 ALT 29 Alkaline Phosphatase 62 Total Protein 7.0 Albumin 3.6 Globulin 3.4 Albumin/Globulin Ratio 1.1 Arterial Blood Potassium Critical Care Progress Note - Nutrition Nutrition: Nutrition Category Date Time Status NPO Diet [DIET] Diets 10/18/16 Breakfast Active Attending/Attestation - Attestation I have personally seen and examined this patient.: Yes I have fully participated in the care of the patient.: Yes I have reviewed all pertinent clinical information: Yes Notes (Text): 10/20/16 16:56 Today: October Patient seen and examined, Medical records reviewed Pain issues, skin care, head of the bed elevation, GI/DVT prophylaxis, glycemic control were addressed, And management discussed and formulated. Agree with above treatment plans as transcribed in Dr. Salas note
[2016-10-20 09:01] LABS: GIANT PLATELETS PRESENT; LARGE PLATELETS PRESENT; NEUTROPHIL 84 % (50-75); TOTAL CELLS COUNTED 100
--- NOTE | 2016-10-20 13:23 | CT ---
PROCEDURE: CT HEAD WITHOUT CONTRAST. HISTORY: Intracranial Bleed Evaluation COMPARISON: 10/19/2016 TECHNIQUE: Axial computed tomography images were obtained through the head/brain without intravenous contrast. Radiation dose: Total exam DLP = 910.61 mGy-cm. FINDINGS: HEMORRHAGE: There is no significant interval change in size of 2.6 x 2.4 cm left thalamic hematoma with surrounding vasogenic edema and 4 mm midline shift from left to right. Again seen is intraventricular extension of hemorrhage with obstructive hydrocephalus, not significantly changed since the prior examination. There is mild periventricular edema. There is no evidence of herniation. BRAIN: Montoya-white matter differentiation is preserved. There is no evidence of extra-axial fluid collection VENTRICLES: Persistent moderate obstructive hydrocephalus. CALVARIUM: The skull base and calvarium are normal. PARANASAL SINUSES: There is fluid in the sphenoid sinus and mucoperiosteal thickening in the ethmoid air cells. The maxillary and frontal sinuses are clear. MASTOID AIR CELLS: Predominantly clear. OTHER FINDINGS: None. IMPRESSION: No significant interval change in known 2.6 x 2.4 cm left thalamic subacute hematoma with surrounding vasogenic edema, 4 mm midline shift from left to right and moderate obstructive hydrocephalus. No evidence of herniation. Continued follow-up imaging is advised.
--- NOTE | 2016-10-20 16:34 | PN ---
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 PHYSICAL EXAMINATION: VITAL SIGNS: Blood pressure 164/85,[id number], respiratory rate 16, temperature 98.2, pulse rate 97, regular. NEUROLOGIC: The patient is examined in the presence of his daughter. The patient is spontaneously opening the eyelid. Does not respond to visual threat. Corneal reflexes are present. Gag is intact. Right side flaccid, left side increased tone. Plantars are upgoing on both sides. His eye opening is spontaneous and I do not think it is related to any physiological response. CT of the head reviewed by me showed increasing ventricular size suggestive of obstructive hydrocephalus secondary to the bleed. Electroencephalogram shows bilateral slow activities without any paroxysmal activities. RECOMMENDATIONS: The patient's condition has been discussed with her daughter as well as CAT scan studies also showed to the patient's daughter to make her aware of his clinical illness. Enoc Simpson MD cc: [id number] TT: 10/20/2016 16:34:16 Confirmation # [id number] Dictation # [id number] DIXON
[2016-10-20 17:27] LABS: CHLORIDE 101 mmol/L (98-107); SODIUM 141 mmol/L (132-148)
[2016-10-20 17:28] LABS: POTASSIUM 3.8 mmol/L (3.6-5.2)
[2016-10-20 17:30] LABS: CARBON DIOXIDE 29 mmol/L (22-30); GFR AFRICAN-AMERICAN > 60
[2016-10-20 17:31] LABS: BLOOD UREA NITROGEN 18 mg/dL (9-20); GLUCOSE,RANDOM 137 mg/dL (75-110)
--- NOTE | 2016-10-20 20:18 | CP.PCM.PN ---
Subjective - Date & Time of Evaluation Date of Evaluation: 10/20/16 Time of Evaluation: 17:40 - Subjective Subjective: Per daughter, patient seen to move R arm; Objective - Vital Signs/Intake and Output Vital Signs (last 24 hours): Temp Pulse Resp BP Pulse Ox 99.4 F 103 H 22 162/73 H 100 10/20/16 20:00 10/20/16 20:11 10/20/16 20:11 10/20/16 20:11 10/20/16 20:11 Intake and Output: 10/20/16 10/21/16 18:59 06:59 Intake Total 2390 215 Output Total 2625 Balance -235 215 - Medications Medications: Current Medications Sodium Chloride (Sodium Chloride 0.9%) 1,000 mls @ 125 mls/hr IV .Q8H OMAR Last Admin: 10/20/16 17:18 Dose: 125 mls/hr Nicardipine HCl 25 mg/ Sodium (Chloride) 250 mls @ 25 mls/hr IV .Q10H OMAR; 2.5 MG/HR PRN Reason: Protocol Last Admin: 10/20/16 18:00 Dose: 50 mls/hr Insulin Human Regular (Novolin R) 0 unit SC Q6 OMAR PRN Reason: Protocol Last Admin: 10/20/16 18:30 Dose: Not Given Lorazepam (Ativan) 1 mg IVP Q6H PRN PRN Reason: Seizure activity Pantoprazole Sodium (Protonix Inj) 40 mg IVP DAILY OMAR Last Admin: 10/20/16 09:39 Dose: 40 mg - Labs Labs: 10/20/16 05:57 10/20/16 17:16 PT 11.9 SECONDS (9.7-12.2) 10/20/16 05:57 INR 1.1 10/20/16 05:57 APTT 31 SECONDS (21-34) 10/20/16 05:57 - Constitutional Appears: Non-toxic, No Acute Distress - Head Exam Head Exam: NORMAL INSPECTION - Eye Exam Eye Exam: Normal appearance. absent: Scleral icterus - ENT Exam ENT Exam: Mucous Membranes Moist - Neck Exam Neck Exam: Normal Inspection Additional comments: Intubated - Respiratory Exam Respiratory Exam: Clear to Ausculation Bilateral, NORMAL BREATHING PATTERN - Cardiovascular Exam Cardiovascular Exam: REGULAR RHYTHM, +S1, +S2 - Extremities Exam Extremities Exam: Normal Inspection. absent: Pedal Edema - Neurological Exam Neurological Exam: Altered Additional comments: Opens eyes to verbal stimuli; not following commands; spontaneously moving L arm and leg, minimal sporadic movement of R leg, no movement of R arm; - Skin Skin Exam: Warm. absent: Cyanosis Assessment and Plan (1) Intracranial hemorrhage Assessment & Plan: Accompanying vasogenic edema noted on head CT today; received mannitol to decrease intracranial pressure; will check serum osm; Status: Acute (2) Hypertensive emergency Assessment & Plan: On nicardipine drip with goal BP 140's-150; Status: Acute (3) Altered mental status Assessment & Plan: Progressively more alert since presentation, however, far from baseline; Status: Acute (4) CVA (cerebral vascular accident) Assessment & Plan: R side flaccid and L side spastic per neuro; discussed with daughter that overall prognosis for any meaningful recovery will take time to assess; Status: Acute
[2016-10-21] MEDS: (Novolin R) Insulin Human Regular 100 units/ml vial SC SCH ×2 (00:19→06:35)
[2016-10-21] MEDS: Sodium Chloride 0.9% 1,000 ML IV SCH ×2 (00:22→04:40)
[2016-10-21] MEDS: niCARdipine IV 25 MG in Sodium Chloride 0.9% 240 ML IV SCH ×4 (04:37→23:53)
[2016-10-21 05:47] LABS: ABG ALLEN TEST POS; ABG MECHANICAL RATE 20; ATERIAL BLOOD GAS PEEP 5; DRAW SITE RB
[2016-10-21 06:25] LABS: BASO % 0.1 % (0.0-2.0); HEMATOCRIT 37.2 % (35.0-51.0); LYMPH % 6.2 % (20.0-40.0); MEAN CELL VOLUME 80.7 fL (80.0-94.0); MEAN CORPUSCULAR HEMOGLOBIN 26.8 pg (27.0-31.0); MEAN CORPUSCULAR HGB CONC 33.2 g/dL (33.0-37.0); MEAN PLATELET VOLUME 8.8 fL (7.2-11.7); MONO # 1.4 K/uL (0.0-0.8); MONO % 8.1 % (0.0-10.0); PLATELET COUNT 241 K/uL (130-400); RED CELL DISTRIBUTION WIDTH 14.8 % (11.5-14.5); WHITE BLOOD COUNT 16.8 K/uL (4.8-10.8)
[2016-10-21 06:36] LABS: CHLORIDE 104 mmol/L (98-107)
[2016-10-21 06:37] LABS: POTASSIUM 3.5 mmol/L (3.6-5.2); SODIUM 146 mmol/L (132-148)
[2016-10-21 06:39] LABS: ALB/GLOB RATIO 1.1 (1.0-2.1); ALKALINE PHOSPHATASE 73 U/L (38-126); ALT/SGPT 35 U/L (21-72); AST/SGOT 29 U/L (17-59); BILIRUBIN,TOTAL 0.9 mg/dL (0.2-1.3); BLOOD UREA NITROGEN 20 mg/dL (9-20); CARBON DIOXIDE 28 mmol/L (22-30); GFR AFRICAN-AMERICAN > 60; TOTAL PROTEIN 7.1 g/dL (6.3-8.3)
[2016-10-21 06:40] LABS: CALCIUM 8.1 mg/dl (8.6-10.4); GLUCOSE,RANDOM 147 mg/dL (75-110); MAGNESIUM 2.1 mg/dL (1.6-2.3); PHOSPHOROUS 3.4 mg/dL (2.5-4.5)
[2016-10-21] MEDS ORDERED: Potassium Chloride 20 mEq/15 ml LIQ UD PO STA (07:15)
--- NOTE | 2016-10-21 08:15 | PN ---
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 PHYSICAL EXAMINATION: VITAL SIGNS: Blood pressure 177/84, mean arterial pressure of 98, respiratory rate 23, pulse rate 12 3. NEUROLOGIC: The patient is comatose. Eyes are closed. On forcibly opening the eyelid, disconjugate gaze. Corneal reflex is sluggish. Gag intact on manipulating the endotracheal tube. Flaccid right hemiplegia. Increased tone on his left side. Plantars are upgoing on both sides. CONCLUSION: Postanoxic encephalopathy secondary to intracerebral bleed. RECOMMENDATIONS: The patient's condition has not improved since he was admitted. Considering the WB C count is going up, patient may be treated appropriately with empirical antibiotics. Continue DVT p rophylaxis. No anticoagulation for the next 6 weeks. Considering his prognosis, it is not good for long-term management. The patient should be benefitted on tracheostomy and PEG placement. Enoc Simpson MD cc: [id number] TT: 10/21/2016 08:15:02 Confirmation # [id number] Dictation # [id number] samuel
--- NOTE | 2016-10-21 08:49 | RAD ---
HISTORY: ET Tube Eval COMPARISON: 10/20/2016 FINDINGS: LUNGS: Lines and tubes in stable position. Mild venous congestion. Right hilar prominence. Multiple overlying external tubes and wires. PLEURA: No significant pleural effusion identified, no pneumothorax apparent. CARDIOVASCULAR: Normal. OSSEOUS STRUCTURES: No significant abnormalities. VISUALIZED UPPER ABDOMEN: Normal. OTHER FINDINGS: None. IMPRESSION: Lines and tubes in stable position. Mild venous congestion. Right hilar prominence. Multiple overlying external tubes and wires.
[2016-10-21 08:59] LABS: NEUTROPHIL 86 % (50-75); TOTAL CELLS COUNTED 100
[2016-10-21] MEDS ORDERED: Potassium Chloride 20 mEq/15 ml LIQ UD PO ONE (09:21)
--- NOTE | 2016-10-21 14:04 | CP.CCUPN ---
<MaritzaJh - Last Filed: 10/21/16 13:51> CCU Subjective - Physician Review Subjective (Free Text): 10/19/16 08:53 Patient seen and examined at the bedside. The patient appears in no acute distress. No acute events overnight. The nursing staff reports no issues. The patient's family remains present at the bedside. The patient is intubated. The nicardipine drip has been decreased from 25mg/hr to 20mg/hr. The patient was sent for a repeat CT scan of the head this morning as per Dr. Simpson and the neurology service. Today, the patient was given 1 dose of 12.5g of mannitol. The patient's decadron was DC and his magnesium was replaced. 10/20/16 08:52 Patient seen and examined at the bedside. The patient appears in no acute distress. No acute events overnight. The nursing staff reports no issues. The patient's family remains present at the bedside. The patient is intubated ( PEEP 5, RATE 20, FiO2 60, TV 500mL, Peak 14). The patient's clinical condition remains unchaged from prior examination. The patient has good strength in his left extremities, but minimal ability to move his right extremities. Today, the patient was given another 100g of mannitol, and a repeat CT head was ordered for evaluation of the intreacranial bleed and hydrocephalous. 10/21/16 14:04 Patient seen and examined at the bedside. The patient appears in no acute distress. No acute events overnight. The nursing staff reports no issues. The patient's family remains present at the bedside. The patient is intubated ( PEEP 5, RATE 16, FiO2 30, TV 500mL, Peak 16). The patient, clinically, remains unchanged from prior examination. Today, the patient was noted to have transient A-Fib vs PACs, so an EKG was preformed. Cardiac echo was also ordered. For BP control, the patient was switched to PO meds to maintain BP at goal (SBP 140-150). The patient's potassium was replaced. Critical Care Time Spent (in minutes): 90 CCU Objective - Vital Signs / Intake & Output Vital Signs (Last 4 hours): Vital Signs Temp Pulse Resp BP Pulse Ox 10/21/16 12:17 121 H 24 153/74 H 97 10/21/16 12:00 99.2 F 129 H 25 H 99 10/21/16 11:47 157/77 H 10/21/16 11:32 118 H 23 99 10/21/16 11:17 116 H 21 153/77 H 10/21/16 11:04 109 H 20 100 10/21/16 11:00 105 H 20 100 10/21/16 10:47 106 H 21 147/71 98 10/21/16 10:36 107 H 22 146/79 99 10/21/16 10:24 102 H 21 99 10/21/16 10:17 122 H 21 173/82 H 98 10/21/16 10:00 122 H 24 100 Intake and Output (Last 8hrs): Intake & Output 10/20/16 10/21/16 10/21/16 22:59 06:59 14:59 Intake Total 1710 1800 1585 Output Total 1540 1090 725 Balance 170 710 860 Weight 73.482 kg Intake: IV 0 Intake, IV Amount 1400 1400 1165 Left Proximal Port 400 400 540 Internal Jugular Left Distal Port Internal 1000 1000 625 Jugular Left Antecubital 0 Right Forearm 0 Oral 120 Tube Feeding 310 400 300 Output: Urine 1540 1090 725 Urethral (Dumas) 1540 1090 725 - Physical Exam Head: Positive for: Atraumatic, Normocephalic Pupils: Positive for: PERRL (minimal reactivity, intact corneal reflex), Pinpoint (2mm b/l) Conjunctiva: Positive for: Normal Pharnyx: Positive for: Other (cough and gag reflex intact) Respiratory/Chest: Positive for: Clear to Auscultation, Good Air Exchange. Negative for: Respiratory Distress, Accessory Muscle Use Cardiovascular: Positive for: Regular Rate and Rhythm, Normal S1, S2. Negative for: Murmurs Abdomen: Positive for: Normal Bowel Sounds. Negative for: Tenderness, Distention, Peritoneal Signs Upper Extremity: Positive for: Normal Inspection. Negative for: Cyanosis, Edema Lower Extremity: Positive for: Normal Inspection. Negative for: Edema Neurological: Positive for: Other (5/5 strength L extremities, minimal 0-1/5 strength R extremities, (-) Babinski B/L, no response to pain right extremities) Skin: Positive for: Warm, Dry, Normal Color. Negative for: Rashes - Medications Active Medications: Active Medications Generic Name Dose Route Start Last Admin Trade Name Freq PRN Reason Stop Dose Admin Amlodipine Besylate 5 mg 10/21/16 12:30 10/21/16 12:38 Norvasc PO 5 mg DAILY OMAR Administration Nicardipine HCl 25 mg/ Sodium 250 mls @ 25 mls/hr 10/19/16 16:00 10/21/16 10:42 Chloride IV 12 mg/hr .Q10H OMAR Titration Protocol 2.5 MG/HR Labetalol HCl 100 mg 10/21/16 11:45 10/21/16 12:06 Trandate PO 100 mg Q12 OMAR Administration Lisinopril 5 mg 10/21/16 11:45 10/21/16 12:06 Zestril PO 5 mg DAILY OMAR Administration Pantoprazole Sodium 40 mg 10/19/16 10:00 10/21/16 10:00 Protonix Inj IVP 40 mg DAILY OMAR Administration - Patient Studies Lab Studies: Lab Studies 10/21/16 10/21/16 10/21/16 Range/Units 13:03 06:11 06:10 WBC 16.8 H (4.8-10.8) K/uL RBC 4.61 (4.40-5.90) Mil/uL Hgb 12.4 (12.0-18.0) g/dL Hct 37.2 (35.0-51.0) % MCV 80.7 (80.0-94.0) fL MCH 26.8 L (27.0-31.0) pg MCHC 33.2 (33.0-37.0) g/dL RDW 14.8 H (11.5-14.5) % Plt Count 241 (130-400) K/uL MPV 8.8 (7.2-11.7) fL Neut % (Auto) 85.6 H (50.0-75.0) % Lymph % (Auto) 6.2 L (20.0-40.0) % Garrett % (Auto) 8.1 (0.0-10.0) % Eos % (Auto) 0.0 (0.0-4.0) % Baso % (Auto) 0.1 (0.0-2.0) % Neut # 14.4 H (1.8-7.0) K/uL Lymph # 1.0 (1.0-4.3) K/uL Garrett # 1.4 H (0.0-0.8) K/uL Eos # 0.0 (0.0-0.7) K/uL Baso # 0.0 (0.0-0.2) K/uL Neutrophils % (Manual) 86 H (50-75) % Lymphocytes % (Manual) 5 L (20-40) % Monocytes % (Manual) 9 (0-10) % Toxic Granulation Present Platelet Estimate Normal (NORMAL) RBC Morphology Normal PT 11.7 (9.7-12.2) SECONDS INR 1.0 APTT 29 (21-34) SECONDS Puncture Site pCO2 (35-45) mm/Hg pO2 (80-100) mm/Hg HCO3 (21-28) mmol/L ABG pH (7.35-7.45) ABG Total CO2 (22-28) mmol/L ABG O2 Saturation (95-98) % ABG Base Excess (-2.0-3.0) mmol/L Kalyan Test ABG Potassium (3.6-5.2) mmol/L A-a O2 Difference mm/Hg Respiratory Index Glucose (75-110) mg/dl Lactate (0.7-2.1) mmol/L Mechanical Rate FiO2 % Tidal Volume PEEP Sodium (132-148) mmol/L Potassium (3.6-5.2) mmol/L Chloride (98-107) mmol/L Carbon Dioxide (22-30) mmol/L Anion Gap (10-20) BUN (9-20) mg/dL Creatinine (0.8-1.5) MG/DL Est GFR ( Amer) Est GFR (Non-Af Amer) POC Glucose (mg/dL) (65-110) mg/dL Random Glucose (75-110) mg/dL Serum Osmolality 310 H 306 H (272-300) mosm/kg Calcium (8.6-10.4) mg/dl Phosphorus (2.5-4.5) mg/dL Magnesium (1.6-2.3) mg/dL Total Bilirubin (0.2-1.3) mg/dL AST (17-59) U/L ALT (21-72) U/L Alkaline Phosphatase (38-126) U/L Total Protein (6.3-8.3) g/dL Albumin (3.5-5.0) g/dL Globulin (2.2-3.9) gm/dL Albumin/Globulin Ratio (1.0-2.1) Arterial Blood Potassium (3.6-5.2) mmol/L 10/21/16 10/21/16 10/21/16 Range/Units 06:07 06:03 05:21 WBC (4.8-10.8) K/uL RBC (4.40-5.90) Mil/uL Hgb (12.0-18.0) g/dL Hct (35.0-51.0) % MCV (80.0-94.0) fL MCH (27.0-31.0) pg MCHC (33.0-37.0) g/dL RDW (11.5-14.5) % Plt Count (130-400) K/uL MPV (7.2-11.7) fL Neut % (Auto) (50.0-75.0) % Lymph % (Auto) (20.0-40.0) % Garrett % (Auto) (0.0-10.0) % Eos % (Auto) (0.0-4.0) % Baso % (Auto) (0.0-2.0) % Neut # (1.8-7.0) K/uL Lymph # (1.0-4.3) K/uL Garrett # (0.0-0.8) K/uL Eos # (0.0-0.7) K/uL Baso # (0.0-0.2) K/uL Neutrophils % (Manual) (50-75) % Lymphocytes % (Manual) (20-40) % Monocytes % (Manual) (0-10) % Toxic Granulation Platelet Estimate (NORMAL) RBC Morphology PT (9.7-12.2) SECONDS INR APTT (21-34) SECONDS Puncture Site Rb pCO2 38 (35-45) mm/Hg pO2 79 L (80-100) mm/Hg HCO3 28.5 H (21-28) mmol/L ABG pH 7.48 H (7.35-7.45) ABG Total CO2 29.5 H (22-28) mmol/L ABG O2 Saturation 97.3 (95-98) % ABG Base Excess 4.6 H (-2.0-3.0) mmol/L Kalyan Test Pos ABG Potassium 3.4 L (3.6-5.2) mmol/L A-a O2 Difference 230.0 mm/Hg Respiratory Index 2.9 Glucose 145 H (75-110) mg/dl Lactate 0.6 L (0.7-2.1) mmol/L Mechanical Rate 20 FiO2 50.0 % Tidal Volume 500 PEEP 5 Sodium 146 147.0 (132-148) mmol/L Potassium 3.5 L (3.6-5.2) mmol/L Chloride 104 116.0 H (98-107) mmol/L Carbon Dioxide 28 (22-30) mmol/L Anion Gap 18 (10-20) BUN 20 (9-20) mg/dL Creatinine 1.1 (0.8-1.5) MG/DL Est GFR ( Amer) > 60 Est GFR (Non-Af Amer) > 60 POC Glucose (mg/dL) 139 H (65-110) mg/dL Random Glucose 147 H (75-110) mg/dL Serum Osmolality (272-300) mosm/kg Calcium 8.1 L (8.6-10.4) mg/dl Phosphorus 3.4 (2.5-4.5) mg/dL Magnesium 2.1 (1.6-2.3) mg/dL Total Bilirubin 0.9 (0.2-1.3) mg/dL AST 29 (17-59) U/L ALT 35 (21-72) U/L Alkaline Phosphatase 73 (38-126) U/L Total Protein 7.1 (6.3-8.3) g/dL Albumin 3.7 (3.5-5.0) g/dL Globulin 3.4 (2.2-3.9) gm/dL Albumin/Globulin Ratio 1.1 (1.0-2.1) Arterial Blood Potassium 3.4 L (3.6-5.2) mmol/L 10/20/16 10/20/16 10/20/16 Range/Units 23:50 18:01 17:16 WBC (4.8-10.8) K/uL RBC (4.40-5.90) Mil/uL Hgb (12.0-18.0) g/dL Hct (35.0-51.0) % MCV (80.0-94.0) fL MCH (27.0-31.0) pg MCHC (33.0-37.0) g/dL RDW (11.5-14.5) % Plt Count (130-400) K/uL MPV (7.2-11.7) fL Neut % (Auto) (50.0-75.0) % Lymph % (Auto) (20.0-40.0) % Garrett % (Auto) (0.0-10.0) % Eos % (Auto) (0.0-4.0) % Baso % (Auto) (0.0-2.0) % Neut # (1.8-7.0) K/uL Lymph # (1.0-4.3) K/uL Garrett # (0.0-0.8) K/uL Eos # (0.0-0.7) K/uL Baso # (0.0-0.2) K/uL Neutrophils % (Manual) (50-75) % Lymphocytes % (Manual) (20-40) % Monocytes % (Manual) (0-10) % Toxic Granulation Platelet Estimate (NORMAL) RBC Morphology PT (9.7-12.2) SECONDS INR APTT (21-34) SECONDS Puncture Site pCO2 (35-45) mm/Hg pO2 (80-100) mm/Hg HCO3 (21-28) mmol/L ABG pH (7.35-7.45) ABG Total CO2 (22-28) mmol/L ABG O2 Saturation (95-98) % ABG Base Excess (-2.0-3.0) mmol/L Kalyan Test ABG Potassium (3.6-5.2) mmol/L A-a O2 Difference mm/Hg Respiratory Index Glucose (75-110) mg/dl Lactate (0.7-2.1) mmol/L Mechanical Rate FiO2 % Tidal Volume PEEP Sodium 141 (132-148) mmol/L Potassium 3.8 (3.6-5.2) mmol/L Chloride 101 (98-107) mmol/L Carbon Dioxide 29 (22-30) mmol/L Anion Gap 15 (10-20) BUN 18 (9-20) mg/dL Creatinine 1.2 (0.8-1.5) MG/DL Est GFR ( Amer) > 60 Est GFR (Non-Af Amer) > 60 POC Glucose (mg/dL) 156 H 138 H (65-110) mg/dL Random Glucose 137 H (75-110) mg/dL Serum Osmolality (272-300) mosm/kg Calcium 8.0 L (8.6-10.4) mg/dl Phosphorus (2.5-4.5) mg/dL Magnesium (1.6-2.3) mg/dL Total Bilirubin (0.2-1.3) mg/dL AST (17-59) U/L ALT (21-72) U/L Alkaline Phosphatase (38-126) U/L Total Protein (6.3-8.3) g/dL Albumin (3.5-5.0) g/dL Globulin (2.2-3.9) gm/dL Albumin/Globulin Ratio (1.0-2.1) Arterial Blood Potassium (3.6-5.2) mmol/L Laboratory Results - last 24 hr 10/20/16 10/20/16 10/20/16 17:16 18:01 23:50 WBC RBC Hgb Hct MCV MCH MCHC RDW Plt Count MPV Neut % (Auto) Lymph % (Auto) Garrett % (Auto) Eos % (Auto) Baso % (Auto) Neut # Lymph # Garrett # Eos # Baso # Neutrophils % (Manual) Lymphocytes % (Manual) Monocytes % (Manual) Toxic Granulation Platelet Estimate RBC Morphology PT INR APTT Puncture Site pCO2 pO2 HCO3 ABG pH ABG Total CO2 ABG O2 Saturation ABG Base Excess Kalyan Test ABG Potassium A-a O2 Difference Respiratory Index Glucose Lactate Mechanical Rate FiO2 Tidal Volume PEEP Sodium 141 Potassium 3.8 Chloride 101 Carbon Dioxide 29 Anion Gap 15 BUN 18 Creatinine 1.2 Est GFR ( Amer) > 60 Est GFR (Non-Af Amer) > 60 POC Glucose (mg/dL) 138 H 156 H Random Glucose 137 H Serum Osmolality Calcium 8.0 L Phosphorus Magnesium Total Bilirubin AST ALT Alkaline Phosphatase Total Protein Albumin Globulin Albumin/Globulin Ratio Arterial Blood Potassium 10/21/16 10/21/16 10/21/16 05:21 06:03 06:07 WBC RBC Hgb Hct MCV MCH MCHC RDW Plt Count MPV Neut % (Auto) Lymph % (Auto) Garrett % (Auto) Eos % (Auto) Baso % (Auto) Neut # Lymph # Garrett # Eos # Baso # Neutrophils % (Manual) Lymphocytes % (Manual) Monocytes % (Manual) Toxic Granulation Platelet Estimate RBC Morphology PT INR APTT Puncture Site Rb pCO2 38 pO2 79 L HCO3 28.5 H ABG pH 7.48 H ABG Total CO2 29.5 H ABG O2 Saturation 97.3 ABG Base Excess 4.6 H Kalyan Test Pos ABG Potassium 3.4 L A-a O2 Difference 230.0 Respiratory Index 2.9 Glucose 145 H Lactate 0.6 L Mechanical Rate 20 FiO2 50.0 Tidal Volume 500 PEEP 5 Sodium 147.0 146 Potassium 3.5 L Chloride 116.0 H 104 Carbon Dioxide 28 Anion Gap 18 BUN 20 Creatinine 1.1 Est GFR ( Amer) > 60 Est GFR (Non-Af Amer) > 60 POC Glucose (mg/dL) 139 H Random Glucose 147 H Serum Osmolality Calcium 8.1 L Phosphorus 3.4 Magnesium 2.1 Total Bilirubin 0.9 AST 29 ALT 35 Alkaline Phosphatase 73 Total Protein 7.1 Albumin 3.7 Globulin 3.4 Albumin/Globulin Ratio 1.1 Arterial Blood Potassium 3.4 L 10/21/16 10/21/16 10/21/16 06:10 06:11 13:03 WBC 16.8 H RBC 4.61 Hgb 12.4 Hct 37.2 MCV 80.7 MCH 26.8 L MCHC 33.2 RDW 14.8 H Plt Count 241 MPV 8.8 Neut % (Auto) 85.6 H Lymph % (Auto) 6.2 L Garrett % (Auto) 8.1 Eos % (Auto) 0.0 Baso % (Auto) 0.1 Neut # 14.4 H Lymph # 1.0 Garrett # 1.4 H Eos # 0.0 Baso # 0.0 Neutrophils % (Manual) 86 H Lymphocytes % (Manual) 5 L Monocytes % (Manual) 9 Toxic Granulation Present Platelet Estimate Normal RBC Morphology Normal PT 11.7 INR 1.0 APTT 29 Puncture Site pCO2 pO2 HCO3 ABG pH ABG Total CO2 ABG O2 Saturation ABG Base Excess Kalyan Test ABG Potassium A-a O2 Difference Respiratory Index Glucose Lactate Mechanical Rate FiO2 Tidal Volume PEEP Sodium Potassium Chloride Carbon Dioxide Anion Gap BUN Creatinine Est GFR ( Amer) Est GFR (Non-Af Amer) POC Glucose (mg/dL) Random Glucose Serum Osmolality 306 H 310 H Calcium Phosphorus Magnesium Total Bilirubin AST ALT Alkaline Phosphatase Total Protein Albumin Globulin Albumin/Globulin Ratio Arterial Blood Potassium EKG/Cardiology Studies: Cardiology / EKG Studies 10/21/16 10:17 EKG [ELECTROCARDIOGRAM] Stat Comment: Mode Of Transportation: Reason For Exam: pvcs Fingerstick Blood Sugar Results: 139 Review of Systems - Review of Systems Systems not reviewed;Unavailable: Intubated Critical Care Progress Note - Ventilator Checklist Head of Bed 30 Degrees: Yes - Vent Settings MODE:: ASSIST CONTROL TIDAL VOLUME:: 500 RESP RATE:: 16 FIO2:: 30 PEEP:: 5 PRESSURE SUPPORT:: 0 - Prophylaxis GI Prophylaxis GI: PPI - Prophylaxis DVT Prophylaxis DVT: Not Indicated - Nutrition Nutrition: Nutrition Category Date Time Status NPO Diet [DIET] Diets 10/18/16 Breakfast Active Assessment/Plan (1) Altered mental status Current Visit: Yes Status: Resolved Comment: intubated (2) CVA (cerebral vascular accident) Current Visit: Yes Status: Acute (3) Hypertensive emergency Current Visit: Yes Status: Resolved (4) Intracranial hemorrhage Current Visit: Yes Status: Chronic (5) HTN (hypertension) Current Visit: Yes Status: Chronic - Assessment and Plan (Free Text) Assessment: This is a 56yo M with unknown past medical history presenting for medical evaluation of intracranial bleed. The patient arrived to the ED intubated. Today the patient remains intubated. Another dose of 100g of mannitol was given in the presence of clinical brain herniation/hydrocephalous as per Dr. Simpson and neuro. Plan: Neuro: -Intubated -Neurology consult - Dr. Simpson continue DVT prophylaxis. no anticoagulation for next 6 weeks. Consider empirical antibiotics for upward trending WBC. Patient may benefit from tracheostomy and PEG placement. -Sedation as needed -10/19 CT Head: little interval change in the known 2.0 x 2.7 acute hematoma in left thalamus with intra ventricular extension of hemorrhage. Interval mild worsening of obstructive hydrocephalus. -10/18 CT Head: Left basal ganglia acute hemorrhage, possibly hypertensive with associated intraventricular hemorrhage and mass effect upon the left lateral aspect of the 3rd ventricle with the tip shift of the 3rd ventricle towards the right side. No generalized midline shift. Air-fluid level in sphenoid sinus common nonspecific. --Please correlate for concern regarding acute sinusitis. Mild involutional changes. -GCS - 8T (E4 VT M3) -[place] [facility] 16 Cardio: -Hypertensive emergency resolved -Amlodipine 5 mg PO daily -Labetalol 100 mg PO Q12 -Lisinopril 5mg PO daily -TLC left IJ @ 15 cm placed 10/19/16 Resp: -Intubated: FiO2 30 PEEP 5 Rate 16 TV 500ml -FiO2 was reduced from 50%-30% 10/21/16 -FiO2 was reduced from 60%-50% 10/20/16 -ABG: -10/21 pH 7.48, CO2 38, O2 79, HCO3 28.5 -10/20 pH 7.46, CO2 37, O2 187 HCO3 26.9 -10/19 pH 7.46, CO2 38, O2 214, HCO3 27.4 -Imaging 10/21 CXR- Mild venous congestion. Right hilar prominence, lines and tubes in stable position. 10/20 CXR - Distal tip of an endotracheal tube terminates approximately 4.6 cm above the brisa. Left IJ approach Central venous catheter terminates at expected location of the left innominate vein. Nasogastric tube extends to expected location of the stomach 10/19 CXR New nasogastric tube extends to distal esophagus, above the diaphragm. Repositioning is advised. ET tube unchanged. No infiltrate. 10/18 CXR ET tube proximal to brisa, no acute pulmonary pathology official read pending -f/u AM CXR and ABG -Head of bed to 30* -Keep O2 Sat >92% GI: -Protonix 40 mg IV daily -NPO -NGT was advanced 10/20 Endo: -Maintain euglycemia -Accucheck ACHS -Novolin R sliding scale low Heme: -Intracranial bleed -Contraindication for anticoagulation -F/u AM CBC -No coagulopathy Renal: -Possible pre-renal dehydration -Serum Osm 307 using POC glucose of 139 -Hypokalemia - replcaed with 40mwq po - replace as needed MSK: -Bed bound : -Dumas in place -Maintain dumas care ID: Leukocytosis ID Consult- Dr. Chavez Prophylaxis: -GI- Protonix 40 mg IVP daily -DVT- contraindicated / to intracranial bleed Gus De Leóni PGY1 - Date & Time Date: 10/21/16 Time: 14:04 <Love Fraga - Last Filed: 10/21/16 18:26> CCU Objective - Vital Signs / Intake & Output Vital Signs (Last 4 hours): Vital Signs Temp Pulse Resp BP Pulse Ox 10/21/16 18:14 112 H 28 H 150/63 94 L 10/21/16 18:00 100 H 20 96 10/21/16 17:59 104 H 21 137/60 96 10/21/16 17:44 140/63 10/21/16 17:30 124 H 27 H 94 L 10/21/16 17:15 118 H 25 H 158/81 H 97 10/21/16 17:05 98 H 22 99 10/21/16 17:00 102 H 22 99 10/21/16 16:59 147/69 10/21/16 16:44 113 H 26 H 147/84 99 10/21/16 16:29 114 H 25 H 99 10/21/16 16:14 114 H 25 H 149/72 99 10/21/16 16:07 118 H 26 H 99 10/21/16 16:00 102.1 F H 115 H 26 H 99 10/21/16 15:59 111 H 25 H 143/79 99 10/21/16 15:47 109 H 24 145/74 10/21/16 15:44 117 H 26 H 151/72 H 99 10/21/16 15:39 101 H 23 99 10/21/16 15:29 109 H 26 H 137/69 99 10/21/16 15:14 96 H 21 139/79 99 10/21/16 15:00 103 H 23 100 10/21/16 14:59 100 H 22 130/63 100 10/21/16 14:44 101 H 22 133/72 100 10/21/16 14:29 102 H 22 134/61 100 Intake and Output (Last 8hrs): Intake & Output 10/21/16 10/21/16 10/21/16 06:59 14:59 22:59 Intake Total 1800 1985 610 Output Total 1090 850 350 Balance 710 1135 260 Intake: IV 0 Intake, IV Amount 1400 1465 350 Left Proximal Port 400 840 350 Internal Jugular Left Distal Port Internal 1000 625 Jugular Left Antecubital 0 Right Forearm 0 Oral 120 60 Tube Feeding 400 400 200 Output: Urine 1090 850 350 Urethral (Dumas) 1090 850 350 - Medications Active Medications: Active Medications Generic Name Dose Route Start Last Admin Trade Name Freq PRN Reason Stop Dose Admin Amlodipine Besylate 5 mg 10/21/16 12:30 10/21/16 12:38 Norvasc PO 5 mg DAILY OMAR Administration Moxifloxacin HCl 250 mls @ 167 mls/hr 10/21/16 18:00 10/21/16 17:19 Avelox Iv 400mg/250ml Ns IVPB 167 mls/hr Q24H OMAR Administration Levetiracetam 500 mg/ Sodium 105 mls @ 420 mls/hr 10/21/16 17:00 10/21/16 17:18 Chloride IVPB 420 mls/hr Q12H OMAR Administration Nicardipine HCl 25 mg/ Sodium 250 mls @ 50 mls/hr 10/21/16 18:15 Chloride IV .Q5H OMAR Protocol 5 MG/HR Labetalol HCl 100 mg 10/21/16 11:45 10/21/16 12:06 Trandate PO 100 mg Q12 OMAR Administration Lisinopril 5 mg 10/21/16 11:45 10/21/16 12:06 Zestril PO 5 mg DAILY OMAR Administration Pantoprazole Sodium 40 mg 10/19/16 10:00 10/21/16 10:00 Protonix Inj IVP 40 mg DAILY OMAR Administration - Patient Studies Lab Studies: Lab Studies 10/21/16 10/21/16 10/21/16 Range/Units 16:58 13:03 06:11 WBC 16.8 H (4.8-10.8) K/uL RBC 4.61 (4.40-5.90) Mil/uL Hgb 12.4 (12.0-18.0) g/dL Hct 37.2 (35.0-51.0) % MCV 80.7 (80.0-94.0) fL MCH 26.8 L (27.0-31.0) pg MCHC 33.2 (33.0-37.0) g/dL RDW 14.8 H (11.5-14.5) % Plt Count 241 (130-400) K/uL MPV 8.8 (7.2-11.7) fL Neut % (Auto) 85.6 H (50.0-75.0) % Lymph % (Auto) 6.2 L (20.0-40.0) % Garrett % (Auto) 8.1 (0.0-10.0) % Eos % (Auto) 0.0 (0.0-4.0) % Baso % (Auto) 0.1 (0.0-2.0) % Neut # 14.4 H (1.8-7.0) K/uL Lymph # 1.0 (1.0-4.3) K/uL Garrett # 1.4 H (0.0-0.8) K/uL Eos # 0.0 (0.0-0.7) K/uL Baso # 0.0 (0.0-0.2) K/uL Neutrophils % (Manual) 86 H (50-75) % Lymphocytes % (Manual) 5 L (20-40) % Monocytes % (Manual) 9 (0-10) % Toxic Granulation Present Platelet Estimate Normal (NORMAL) RBC Morphology Normal PT 11.7 (9.7-12.2) SECONDS INR 1.0 APTT 29 (21-34) SECONDS Puncture Site pCO2 (35-45) mm/Hg pO2 (80-100) mm/Hg HCO3 (21-28) mmol/L ABG pH (7.35-7.45) ABG Total CO2 (22-28) mmol/L ABG O2 Saturation (95-98) % ABG Base Excess (-2.0-3.0) mmol/L Kalyan Test ABG Potassium (3.6-5.2) mmol/L A-a O2 Difference mm/Hg Respiratory Index Glucose (75-110) mg/dl Lactate (0.7-2.1) mmol/L Mechanical Rate FiO2 % Tidal Volume PEEP Sodium (132-148) mmol/L Potassium (3.6-5.2) mmol/L Chloride (98-107) mmol/L Carbon Dioxide (22-30) mmol/L Anion Gap (10-20) BUN (9-20) mg/dL Creatinine (0.8-1.5) MG/DL Est GFR ( Amer) Est GFR (Non-Af Amer) POC Glucose (mg/dL) (65-110) mg/dL Random Glucose (75-110) mg/dL Serum Osmolality 310 H (272-300) mosm/kg Calcium (8.6-10.4) mg/dl Phosphorus (2.5-4.5) mg/dL Magnesium (1.6-2.3) mg/dL Total Bilirubin (0.2-1.3) mg/dL AST (17-59) U/L ALT (21-72) U/L Alkaline Phosphatase (38-126) U/L Total Protein (6.3-8.3) g/dL Albumin (3.5-5.0) g/dL Globulin (2.2-3.9) gm/dL Albumin/Globulin Ratio (1.0-2.1) Arterial Blood Potassium (3.6-5.2) mmol/L Urine Color Yellow (YELLOW) Urine Clarity Hazy (Clear) Urine pH 5.0 (5.0-8.0) Ur Specific [place] 1.019 (1.003-1.030) Urine Protein 1+ H (NEGATIVE) mg/dL Urine Glucose (UA) 1+ H (Normal) mg/dL Urine Ketones Negative (NEGATIVE) mg/dL Urine Blood 3+ H (NEGATIVE) Urine Nitrate Negative (NEGATIVE) Urine Bilirubin Negative (NEGATIVE) Urine Urobilinogen Normal (0.2-1.0) mg/dL Ur Leukocyte Esterase Trace (Negative) Eula/uL Urine WBC (Auto) 5 (0-5) /hpf Urine RBC (Auto) 34 H (0-3) /hpf Urine Bacteria Rare (<OCC) 10/21/16 10/21/16 10/21/16 Range/Units 06:10 06:07 06:03 WBC (4.8-10.8) K/uL RBC (4.40-5.90) Mil/uL Hgb (12.0-18.0) g/dL Hct (35.0-51.0) % MCV (80.0-94.0) fL MCH (27.0-31.0) pg MCHC (33.0-37.0) g/dL RDW (11.5-14.5) % Plt Count (130-400) K/uL MPV (7.2-11.7) fL Neut % (Auto) (50.0-75.0) % Lymph % (Auto) (20.0-40.0) % [place] % (Auto) (0.0-10.0) % Eos % (Auto) (0.0-4.0) % Baso % (Auto) (0.0-2.0) % Neut # (1.8-7.0) K/uL Lymph # (1.0-4.3) K/uL Garrett # (0.0-0.8) K/uL Eos # (0.0-0.7) K/uL Baso # (0.0-0.2) K/uL Neutrophils % (Manual) (50-75) % Lymphocytes % (Manual) (20-40) % Monocytes % (Manual) (0-10) % Toxic Granulation Platelet Estimate (NORMAL) RBC Morphology PT (9.7-12.2) SECONDS INR APTT (21-34) SECONDS Puncture Site pCO2 (35-45) mm/Hg pO2 (80-100) mm/Hg HCO3 (21-28) mmol/L ABG pH (7.35-7.45) ABG Total CO2 (22-28) mmol/L ABG O2 Saturation (95-98) % ABG Base Excess (-2.0-3.0) mmol/L [place] Test ABG Potassium (3.6-5.2) mmol/L A-a O2 Difference mm/Hg Respiratory Index Glucose (75-110) mg/dl Lactate (0.7-2.1) mmol/L Mechanical Rate FiO2 % Tidal Volume PEEP Sodium 146 (132-148) mmol/L Potassium 3.5 L (3.6-5.2) mmol/L Chloride 104 (98-107) mmol/L Carbon Dioxide 28 (22-30) mmol/L Anion Gap 18 (10-20) BUN 20 (9-20) mg/dL Creatinine 1.1 (0.8-1.5) MG/DL Est GFR ( Amer) > 60 Est GFR (Non-Af Amer) > 60 POC Glucose (mg/dL) 139 H (65-110) mg/dL Random Glucose 147 H (75-110) mg/dL Serum Osmolality 306 H (272-300) mosm/kg Calcium 8.1 L (8.6-10.4) mg/dl Phosphorus 3.4 (2.5-4.5) mg/dL Magnesium 2.1 (1.6-2.3) mg/dL Total Bilirubin 0.9 (0.2-1.3) mg/dL AST 29 (17-59) U/L ALT 35 (21-72) U/L Alkaline Phosphatase 73 (38-126) U/L Total Protein 7.1 (6.3-8.3) g/dL Albumin 3.7 (3.5-5.0) g/dL Globulin 3.4 (2.2-3.9) gm/dL Albumin/Globulin Ratio 1.1 (1.0-2.1) Arterial Blood Potassium (3.6-5.2) mmol/L Urine Color (YELLOW) Urine Clarity (Clear) Urine pH (5.0-8.0) Ur Specific [place] (1.003-1.030) Urine Protein (NEGATIVE) mg/dL Urine Glucose (UA) (Normal) mg/dL Urine Ketones (NEGATIVE) mg/dL Urine Blood (NEGATIVE) Urine Nitrate (NEGATIVE) Urine Bilirubin (NEGATIVE) Urine Urobilinogen (0.2-1.0) mg/dL Ur Leukocyte Esterase (Negative) E[place]/uL Urine WBC (Auto) (0-5) /hpf Urine RBC (Auto) (0-3) /hpf Urine Bacteria (<OCC) 10/21/16 10/20/16 Range/Units 05:21 23:50 WBC (4.8-10.8) K/uL RBC (4.40-5.90) Mil/uL Hgb (12.0-18.0) g/dL Hct (35.0-51.0) % MCV (80.0-94.0) fL MCH (27.0-31.0) pg MCHC (33.0-37.0) g/dL RDW (11.5-14.5) % Plt Count (130-400) K/uL MPV (7.2-11.7) fL Neut % (Auto) (50.0-75.0) % Lymph % (Auto) (20.0-40.0) % Garrett % (Auto) (0.0-10.0) % Eos % (Auto) (0.0-4.0) % Baso % (Auto) (0.0-2.0) % Neut # (1.8-7.0) K/uL Lymph # (1.0-4.3) K/uL Garrett # (0.0-0.8) K/uL Eos # (0.0-0.7) K/uL Baso # (0.0-0.2) K/uL Neutrophils % (Manual) (50-75) % Lymphocytes % (Manual) (20-40) % Monocytes % (Manual) (0-10) % Toxic Granulation Platelet Estimate (NORMAL) RBC Morphology PT (9.7-12.2) SECONDS INR APTT (21-34) SECONDS Puncture Site Rb pCO2 38 (35-45) mm/Hg pO2 79 L (80-100) mm/Hg HCO3 28.5 H (21-28) mmol/L ABG pH 7.48 H (7.35-7.45) ABG Total CO2 29.5 H (22-28) mmol/L ABG O2 Saturation 97.3 (95-98) % ABG Base Excess 4.6 H (-2.0-3.0) mmol/L Kalyan Test Pos ABG Potassium 3.4 L (3.6-5.2) mmol/L A-a O2 Difference 230.0 mm/Hg Respiratory Index 2.9 Glucose 145 H (75-110) mg/dl Lactate 0.6 L (0.7-2.1) mmol/L Mechanical Rate 20 FiO2 50.0 % Tidal Volume 500 PEEP 5 Sodium 147.0 (132-148) mmol/L Potassium (3.6-5.2) mmol/L Chloride 116.0 H (98-107) mmol/L Carbon Dioxide (22-30) mmol/L Anion Gap (10-20) BUN (9-20) mg/dL Creatinine (0.8-1.5) MG/DL Est GFR ( Amer) Est GFR (Non-Af Amer) POC Glucose (mg/dL) 156 H (65-110) mg/dL Random Glucose (75-110) mg/dL Serum Osmolality (272-300) mosm/kg Calcium (8.6-10.4) mg/dl Phosphorus (2.5-4.5) mg/dL Magnesium (1.6-2.3) mg/dL Total Bilirubin (0.2-1.3) mg/dL AST (17-59) U/L ALT (21-72) U/L Alkaline Phosphatase (38-126) U/L Total Protein (6.3-8.3) g/dL Albumin (3.5-5.0) g/dL Globulin (2.2-3.9) gm/dL Albumin/Globulin Ratio (1.0-2.1) Arterial Blood Potassium 3.4 L (3.6-5.2) mmol/L Urine Color (YELLOW) Urine Clarity (Clear) Urine pH (5.0-8.0) Ur Specific [place] (1.003-1.030) Urine Protein (NEGATIVE) mg/dL Urine Glucose (UA) (Normal) mg/dL Urine Ketones (NEGATIVE) mg/dL Urine Blood (NEGATIVE) Urine Nitrate (NEGATIVE) Urine Bilirubin (NEGATIVE) Urine Urobilinogen (0.2-1.0) mg/dL Ur Leukocyte Esterase (Negative) [place]/uL Urine WBC (Auto) (0-5) /hpf Urine RBC (Auto) (0-3) /hpf Urine Bacteria (<OCC) Laboratory Results - last 24 hr 10/20/16 10/21/16 10/21/16 23:50 05:21 06:03 WBC RBC Hgb Hct MCV MCH MCHC RDW Plt Count MPV Neut % (Auto) Lymph % (Auto) Garrett % (Auto) Eos % (Auto) Baso % (Auto) Neut # Lymph # Garrett # Eos # Baso # Neutrophils % (Manual) Lymphocytes % (Manual) Monocytes % (Manual) Toxic Granulation Platelet Estimate RBC Morphology PT INR APTT Puncture Site Rb pCO2 38 pO2 79 L HCO3 28.5 H ABG pH 7.48 H ABG Total CO2 29.5 H ABG O2 Saturation 97.3 ABG Base Excess 4.6 H Kalyan Test Pos ABG Potassium 3.4 L A-a O2 Difference 230.0 Respiratory Index 2.9 Sodium 147.0 Chloride 116.0 H Glucose 145 H Lactate 0.6 L Mechanical Rate 20 FiO2 50.0 Tidal Volume 500 PEEP 5 Potassium Carbon Dioxide Anion Gap BUN Creatinine Est GFR ( Amer) Est GFR (Non-Af Amer) POC Glucose (mg/dL) 156 H 139 H Random Glucose Serum Osmolality Calcium Phosphorus Magnesium Total Bilirubin AST ALT Alkaline Phosphatase Total Protein Albumin Globulin Albumin/Globulin Ratio Arterial Blood Potassium 3.4 L Urine Color Urine Clarity Urine pH Ur Specific [place] Urine Protein Urine Glucose (UA) Urine Ketones Urine Blood Urine Nitrate Urine Bilirubin Urine Urobilinogen Ur Leukocyte Esterase Urine WBC (Auto) Urine RBC (Auto) Urine Bacteria 10/21/16 10/21/16 10/21/16 06:07 06:10 06:11 WBC 16.8 H RBC 4.61 Hgb 12.4 Hct 37.2 MCV 80.7 MCH 26.8 L MCHC 33.2 RDW 14.8 H Plt Count 241 MPV 8.8 Neut % (Auto) 85.6 H Lymph % (Auto) 6.2 L Garrett % (Auto) 8.1 Eos % (Auto) 0.0 Baso % (Auto) 0.1 Neut # 14.4 H Lymph # 1.0 Garrett # 1.4 H Eos # 0.0 Baso # 0.0 Neutrophils % (Manual) 86 H Lymphocytes % (Manual) 5 L Monocytes % (Manual) 9 Toxic Granulation Present Platelet Estimate Normal RBC Morphology Normal PT 11.7 INR 1.0 APTT 29 Puncture Site pCO2 pO2 HCO3 ABG pH ABG Total CO2 ABG O2 Saturation ABG Base Excess Kaly[place] Test ABG Potassium A-a O2 Difference Respiratory Index Sodium 146 Chloride 104 Glucose Lactate Mechanical Rate FiO2 Tidal Volume PEEP Potassium 3.5 L Carbon Dioxide 28 Anion Gap 18 BUN 20 Creatinine 1.1 Est GFR ( Amer) > 60 Est GFR (Non-Af Amer) > 60 POC Glucose (mg/dL) Random Glucose 147 H Serum Osmolality 306 H Calcium 8.1 L Phosphorus 3.4 Magnesium 2.1 Total Bilirubin 0.9 AST 29 ALT 35 Alkaline Phosphatase 73 Total Protein 7.1 Albumin 3.7 Globulin 3.4 Albumin/Globulin Ratio 1.1 Arterial Blood Potassium Urine Color Urine Clarity Urine pH Ur Specific [place] Urine Protein Urine Glucose (UA) Urine Ketones Urine Blood Urine Nitrate Urine Bilirubin Urine Urobilinogen Ur Leukocyte Esterase Urine WBC (Auto) Urine RBC (Auto) Urine Bacteria 10/21/16 10/21/16 13:03 16:58 WBC RBC Hgb Hct MCV MCH MCHC RDW Plt Count MPV Neut % (Auto) Lymph % (Auto) Garrett % (Auto) Eos % (Auto) Baso % (Auto) Neut # Lymph # Garrett # Eos # Baso # Neutrophils % (Manual) Lymphocytes % (Manual) Monocytes % (Manual) Toxic Granulation Platelet Estimate RBC Morphology PT INR APTT Puncture Site pCO2 pO2 HCO3 ABG pH ABG Total CO2 ABG O2 Saturation ABG Base Excess [place]aly[place] Test ABG Potassium A-a O2 Difference Respiratory Index Sodium Chloride Glucose Lactate Mechanical Rate FiO2 Tidal Volume PEEP Potassium Carbon Dioxide Anion Gap BUN Creatinine Est GFR ( Amer) Est GFR (Non-Af Amer) POC Glucose (mg/dL) Random Glucose Serum Osmolality 310 H Calcium Phosphorus Magnesium Total Bilirubin AST ALT Alkaline Phosphatase Total Protein Albumin Globulin Albumin/Globulin Ratio Arterial Blood Potassium Urine Color Yellow Urine Clarity Hazy Urine pH 5.0 Ur Specific [place] 1.019 Urine Protein 1+ H Urine Glucose (UA) 1+ H Urine Ketones Negative Urine Blood 3+ H Urine Nitrate Negative Urine Bilirubin Negative Urine Urobilinogen Normal Ur Leukocyte Esterase Trace Urine WBC (Auto) 5 Urine RBC (Auto) 34 H Urine Bacteria Rare EKG/Cardiology Studies: Cardiology / EKG Studies 10/21/16 10:17 EKG [ELECTROCARDIOGRAM] Stat Comment: Mode Of Transportation: Reason For Exam: pvcs Critical Care Progress Note - Nutrition Nutrition: Nutrition Category Date Time Status NPO Diet [DIET] Diets 10/18/16 Breakfast Active Attending/Attestation - Attestation I have personally seen and examined this patient.: Yes I have fully participated in the care of the patient.: Yes I have reviewed all pertinent clinical information: Yes Notes (Text): 10/21/16 18:23 Patient seen and examined in the morning, no change neurologically from yesterday. CT scan of the head no change from yesterday. wbc count increasing, high fever this afternoon, ua from today negative, bc drawn today, moxifloxacin started. bp not controlled, start amlodipine, labetalol and lisinopril ordered echocardiogram Spoke with and updated about poor prognosis. Palliative care available.
[2016-10-21] MEDS ORDERED: Acetaminophen 650mg/20.3ml solution UD PO ONE (16:45)
[2016-10-21 17:18] LABS: RBC URINE 34 /hpf (0-3); URINE BACTERIA RARE (<OCC); URINE BILIRUBIN NEGATIVE (NEGATIVE); URINE BLOOD 3+ (NEGATIVE); URINE COLOR Yellow (YELLOW); URINE GLUCOSE (UA) 1+ mg/dL (Normal); URINE KETONE NEGATIVE (NEGATIVE); URINE LEUKOCYTE ESTERASE TRACE Leu/uL (Negative); URINE PROTEIN 1+ mg/dL (NEGATIVE); URINE UROBILINOGEN NORMAL mg/dL (0.2-1.0); WBC URINE 5 /hpf (0-5)
[2016-10-21] MEDS: levETIRAcetam 500 MG in Sodium Chloride 0.9% 100 ML IVPB SCH (17:18)
[2016-10-21] MEDS ORDERED: Moxifloxacin IV 400mg/250ml NS 250 ML IVPB SCH (18:00)
--- NOTE | 2016-10-21 18:18 | CARD ---
APPROVED REPORT EXAM: Two-dimensional and M-mode echocardiogram with Doppler and color Doppler. Other Information Quality : GoodRhythm : INDICATION CVA/TIA LV Function:Systolic RISK FACTORS Hypertension Hyperlipidemia M-Mode DIMENSIONS RVDd1.87 (2.1-3.2cm)Left Atrium (MM)4.16 (2.5-4.0cm) IVSd1.32 (0.7-1.1cm)Aortic Root3.33 (2.2-3.7cm) LVDd4.20 (4.0-5.6cm)Aortic Cusp Exc.1.74 (1.5-2.0cm) PWd1.28 (0.7-1.1cm)FS (%) 40 % LVDs2.50 (2.0-3.8cm)LVEF (%)72 (>50%) Aortic Valve AoV Peak Cgftjzxu547.8cm/sAoV VTI38.9cmAO Peak GR.20mmHg AO Mean GR.14mmHg Mitral Valve MV E Cuzwvlqy77.8cm/sMV A Vfevuwgf29.2cm/sE/A ratio1.2 TDI E/Lateral E'0.0E/Medial E'0.0 Tricuspid Valve TR Peak [id number]/sTR Peak Gr.39mjNdQYYM65vqEm LEFT VENTRICLE The left ventricle is normal size. There is mild to moderate concentric left ventricular hypertrophy. The left ventricular function is normal. The left ventricular ejection fraction is within the normal range. about 65% No regional wall motion abnormalities noted. The left ventricular diastolic function is inconclusive. No left ventricle thrombus noted on this study. There is no ventricular septal defect visualized. There is no left ventricular aneurysm. There is no mass noted in the left ventricle. RIGHT VENTRICLE The right ventricle is normal size. There is normal right ventricular wall thickness. The right ventricular systolic function is normal. ATRIA The left atrium size is slightly dilated. The right atrium size is normal. The interatrial septum is intact with no evidence for an atrial septal defect. AORTIC VALVE The aortic valve is normal in structure and function. No aortic regurgitation is present. There is no aortic valvular stenosis. There is no aortic valvular vegetation. MITRAL VALVE The mitral valve is normal in structure and function. There is no evidence of mitral valve prolapse. There is no mitral valve stenosis. There is no mitral valve regurgitation noted. TRICUSPID VALVE The tricuspid valve is normal in structure and function. There is no tricuspid valve regurgitation noted. There is no tricuspid valve prolapse or vegetation. There is no tricuspid valve stenosis. PULMONIC VALVE The pulmonary valve is normal in structure and function. There is no pulmonic valvular regurgitation. There is no pulmonic valvular stenosis. GREAT VESSELS The aortic root is normal in size. The ascending aorta is normal in size. The pulmonary artery is normal. The IVC is normal in size and collapses >50% with inspiration. PERICARDIAL EFFUSION The pericardium appears normal. There is no pleural effusion. <Conclusion> There is mild to moderate concentric left ventricular hypertrophy. Normal LV systolic function. Normal Doppler
--- NOTE | 2016-10-21 21:33 | CP.PCM.PN ---
Subjective - Date & Time of Evaluation Date of Evaluation: 10/21/16 Time of Evaluation: 16:00 - Subjective Subjective: Intubated; arrhythmias seen earlier in the day; Objective - Vital Signs/Intake and Output Vital Signs (last 24 hours): Temp Pulse Resp BP Pulse Ox 100 F H 109 H 27 H 152/79 H 96 10/21/16 20:00 10/21/16 21:00 10/21/16 21:00 10/21/16 20:59 10/21/16 21:00 Intake and Output: 10/21/16 10/22/16 18:59 06:59 Intake Total 2595 270 Output Total 1200 155 Balance 1395 115 - Medications Medications: Current Medications Acetaminophen (Tylenol 325mg Tab) 650 mg PO Q6 PRN PRN Reason: Fever >100.4 F Amlodipine Besylate (Norvasc) 5 mg PO DAILY [facility] Last Admin: 10/21/16 12:38 Dose: 5 mg Moxifloxacin HCl (Avelox Iv 400mg/250ml Ns) 250 mls @ 167 mls/hr IVPB Q24H [facility] Last Admin: 10/21/16 17:19 Dose: 167 mls/hr Levetiracetam 500 mg/ Sodium (Chloride) 105 mls @ 420 mls/hr IVPB Q12H [facility] Last Admin: 10/21/16 17:18 Dose: 420 mls/hr Nicardipine HCl 25 mg/ Sodium (Chloride) 250 mls @ 50 mls/hr IV .Q5H [facility]; 5 MG/ HR PRN Reason: Protocol Last Titration: 10/21/16 19:17 Dose: 2 mg/hr Labetalol HCl (Trandate) 100 mg PO Q12 [facility] Last Admin: 10/21/16 12:06 Dose: 100 mg Lisinopril (Zestril) 5 mg PO DAILY [facility] Last Admin: 10/21/16 12:06 Dose: 5 mg Pantoprazole Sodium (Protonix Inj) 40 mg IVP DAILY [facility] Last Admin: 10/21/16 10:00 Dose: 40 mg - Labs Labs: 10/21/16 06:11 10/21/16 06:07 PT 11.7 SECONDS (9.7-12.2) 10/21/16 06:11 INR 1.0 10/21/16 06:11 APTT 29 SECONDS (21-34) 10/21/16 06:11 - Constitutional Appears: No Acute Distress - Neurological Exam Neurological Exam: absent: Alert Assessment and Plan (1) Intracranial hemorrhage Status: Acute (2) Hypertensive emergency Status: Acute (3) Altered mental status Status: Acute (4) CVA (cerebral vascular accident) Status: Acute
[2016-10-22] MEDS: niCARdipine IV 25 MG in Sodium Chloride 0.9% 240 ML IV SCH ×3 (03:39→21:30)
[2016-10-22] MEDS: levETIRAcetam 500 MG in Sodium Chloride 0.9% 100 ML IVPB SCH (05:01)
[2016-10-22 05:47] LABS: ABG ALLEN TEST POS; ABG MECHANICAL RATE 16; ARTERIAL BLOOD HGB O2 SAT 92.9 % (95.0-98.0); ATERIAL BLOOD GAS PEEP 5; CARBOXYHEMOGLOBIN 1.2 % (0.5-1.5); DRAW SITE RB; HHB 5.3 % (0.0-5.0); METHEMOGLOBIN 0.6 % (0.0-3.0)
[2016-10-22] MEDS ORDERED: Metoprolol 1 mg/ml Inj IVP ONE (06:32)
[2016-10-22] MEDS ORDERED: Digoxin 500 mcg/2ml (0.5 mg/2ml) Inj IVP ONE (06:43)
[2016-10-22 06:53] LABS: BASO % 0.2 % (0.0-2.0); HEMATOCRIT 34.9 % (35.0-51.0); LYMPH # 1.3 K/uL (1.0-4.3); LYMPH % 8.9 % (20.0-40.0); MEAN CELL VOLUME 82.3 fL (80.0-94.0); MEAN CORPUSCULAR HEMOGLOBIN 27.2 pg (27.0-31.0); MEAN PLATELET VOLUME 9.2 fL (7.2-11.7); MONO # 1.5 K/uL (0.0-0.8); MONO % 10.3 % (0.0-10.0); PLATELET COUNT 201 K/uL (130-400); RED CELL DISTRIBUTION WIDTH 14.7 % (11.5-14.5); WHITE BLOOD COUNT 14.5 K/uL (4.8-10.8)
[2016-10-22 06:58] LABS: CHLORIDE 109 mmol/L (98-107)
[2016-10-22 06:59] LABS: POTASSIUM 3.3 mmol/L (3.6-5.2); SODIUM 152 mmol/L (132-148)
[2016-10-22 07:01] LABS: ALB/GLOB RATIO 0.8 (1.0-2.1); ALKALINE PHOSPHATASE 59 U/L (38-126); ALT/SGPT 49 U/L (21-72); AST/SGOT 38 U/L (17-59); BILIRUBIN,TOTAL 0.7 mg/dL (0.2-1.3); BLOOD UREA NITROGEN 29 mg/dL (9-20); CARBON DIOXIDE 29 mmol/L (22-30); GFR AFRICAN-AMERICAN > 60; GLUCOSE,RANDOM 134 mg/dL (75-110); TOTAL PROTEIN 6.4 g/dL (6.3-8.3)
[2016-10-22 07:02] LABS: CALCIUM 8.3 mg/dl (8.6-10.4); MAGNESIUM 2.3 mg/dL (1.6-2.3); PHOSPHOROUS 3.3 mg/dL (2.5-4.5)
[2016-10-22 09:08] LABS: NEUTROPHIL 78 % (50-75); TOTAL CELLS COUNTED 100
[2016-10-22 09:09] LABS: GIANT PLATELETS PRESENT; LARGE PLATELETS PRESENT
--- NOTE | 2016-10-22 09:39 | RAD ---
HISTORY: intubated COMPARISON: 10/21/2016 FINDINGS: LUNGS: Worsening consolidative changes in the right mid to lower lung zone. Lines and tubes in stable position. PLEURA: No significant pleural effusion identified, no pneumothorax apparent. CARDIOVASCULAR: Normal. OSSEOUS STRUCTURES: No significant abnormalities. VISUALIZED UPPER ABDOMEN: Normal. OTHER FINDINGS: None. IMPRESSION: Worsening consolidative changes in the right mid to lower lung zone. Lines and tubes in stable position.
[2016-10-22] MEDS ORDERED: Potassium Chloride 20 mEq/15 ml LIQ UD PO ONE (10:09)
[2016-10-22] MEDS: Sodium Chloride 0.9% 1,000 ML IV SCH ×2 (10:13→18:14)
--- NOTE | 2016-10-22 10:54 | CP.PCM.PN ---
Subjective - Date & Time of Evaluation Date of Evaluation: 10/22/16 Time of Evaluation: 10:30 - Subjective Subjective: Patient remains intubated at this time. When I saw patient was not responding to commands. He was then taken for a repeat CT imaging of the brain to further assess the bleeding and edema. Per discussion with family the at bedside. 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 They explain that there is also an uncle as well as a mother with this and they all have to go for frequent phelbotomy draws. Objective - Vital Signs/Intake and Output Vital Signs (last 24 hours): Temp Pulse Resp BP Pulse Ox 100.4 F H 95 H 22 129/79 97 10/22/16 08:00 10/22/16 09:14 10/22/16 09:14 10/22/16 09:14 10/22/16 09:14 Intake and Output: 10/22/16 10/22/16 06:59 18:59 Intake Total 1150 280 Output Total 940 350 Balance 210 -70 - Medications Medications: Current Medications Acetaminophen (Tylenol 325mg Tab) 650 mg PO Q6 PRN PRN Reason: Fever >100.4 F Last Admin: 10/22/16 08:03 Dose: 650 mg Amlodipine Besylate (Norvasc) 5 mg PO DAILY [facility] Last Admin: 10/22/16 09:37 Dose: 5 mg Moxifloxacin HCl (Avelox Iv 400mg/250ml Ns) 250 mls @ 167 mls/hr IVPB Q24H [facility] Last Admin: 10/21/16 17:19 Dose: 167 mls/hr Levetiracetam 500 mg/ Sodium (Chloride) 105 mls @ 420 mls/hr IVPB Q12H [facility] Last Admin: 10/22/16 05:01 Dose: 420 mls/hr Nicardipine HCl 25 mg/ Sodium (Chloride) 250 mls @ 50 mls/hr IV .Q5H OMAR; 5 MG/ HR PRN Reason: Protocol Last Admin: 10/22/16 10:27 Dose: Not Given Sodium Chloride (Sodium Chloride 0.9%) 1,000 mls @ 125 mls/hr IV .Q8H [facility] Last Admin: 10/22/16 10:13 Dose: 125 mls/hr Labetalol HCl (Trandate) 100 mg PO Q12 [facility] Last Admin: 10/22/16 09:37 Dose: 100 mg Lisinopril (Zestril) 5 mg PO DAILY [facility] Last Admin: 10/22/16 09:37 Dose: 5 mg Pantoprazole Sodium (Protonix Inj) 40 mg IVP DAILY [facility] Last Admin: 10/22/16 09:37 Dose: 40 mg - Labs Labs: 10/22/16 06:47 10/22/16 06:42 PT 11.7 SECONDS (9.7-12.2) 10/21/16 06:11 INR 1.0 10/21/16 06:11 APTT 29 SECONDS (21-34) 10/21/16 06:11 - Constitutional Appears: Chronically Ill - ENT Exam ENT Exam: Mucous Membranes Moist - Respiratory Exam Additional comments: Mechanical intubation - GI/Abdominal Exam GI & Abdominal Exam: Soft, Normal Bowel Sounds - Neurological Exam Neurological Exam: absent: Alert, Awake, CN II-XII Intact, Normal Gait, Oriented x3 Additional comments: Previous documention of some minimal movement, however when I saw and examined that was not present - Skin Skin Exam: Normal Color, Warm Assessment and Plan - Assessment and Plan (Free Text) Assessment: Assessment and Plan This is a 56 yo male who is currently intubated. He was brought to the ER intubated and sedated and found to have a lefth thalamic area bleeding. According to the family there is a history of HTN and Polycythemia Vera. (1) CVA / Intracranial hemorrhage 10/22: Patient went for 3rd CT scan of the head today. Pending the results. The imaging from 10/20 suggested 2.6 x 2.4 area left thalamic subacute hematoma and edema. They also noted a midline shift at that time. It did not look signifigantly changed from the first CT. Patient has been recivieng mannitol as well as keppra IV. (2) Hypertensive emergency 10/22: At this moment on norvasc and lisinopril. Systolic BPs have been in the 120s and 130s. Was recently on nicardipene drip, now off and on PO meds. 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 The patient's family explain that their mother and uncle require removal of excess blood in the past. (4) Leukocytosis 10/22: WBC decreased, on Avelox. Tmax today 100.4, yesterday was higher 102. Cultures were taken yesterday. (5) Altered mental status 10/22: This morning was intubated and not responding to voice calling or commands. Per previous notes there is some documentation of movement of the extremities. (6) Prophylactic measures 10/22: Protonix, avoid Heparin or Lovenox due to bleeding
--- NOTE | 2016-10-22 13:39 | CP.CCUPN ---
CCU Subjective - Physician Review Subjective (Free Text): 10/22/16 13:34 Pt seen/examined. SHAMAR o/n. remains unresponsive, off sedation Afebrile. VSS off cardene gtt intubated/unresponsive HEENT: eyes with downward gaze deviation. pupils 2mm nonreactive Supple Lungs: Coarse b/l CVS: S1, s2, RRR Abd: Soft, NT/ND, BS+ve Ext: No edema Neuro: unresponsive to verbal stimuli. Extensor posturing to deep noxious stimuli. Labs / Imaging / meds reviewed independently as noted below. Imp / Plan: 56M with PCV now with catastrophic L BG HGE c IVH extension and exam consistent with impending herniation will get stat CT Head and discuss with neuro/nsgy maintain BP control with SBP < 140 Na @ 152; may redose mannitol cont vent support cont TF IVF maintenance Gi / DVT PPx d/w family in depth at bedside and informed them that prognosis for meaningful recovery is poor. All questions answered to their satisfaction. Alexis Samuels MD CC Time spent 45min exclusive of procedures CCU Objective - Vital Signs / Intake & Output Vital Signs (Last 4 hours): Vital Signs Temp Pulse Resp BP Pulse Ox 10/22/16 13:00 91 H 24 98 10/22/16 12:59 90 24 153/85 H 98 10/22/16 12:58 89 24 98 10/22/16 12:57 88 24 98 10/22/16 12:44 86 24 151/81 H 98 10/22/16 12:29 88 24 152/81 H 98 10/22/16 12:14 83 24 143/78 96 10/22/16 12:00 100.4 F H 84 24 94 L 10/22/16 11:59 80 24 139/79 95 10/22/16 11:44 86 24 126/76 94 L 10/22/16 11:29 86 24 128/75 97 10/22/16 11:14 88 24 135/82 97 10/22/16 11:10 84 24 143/88 100 10/22/16 11:07 74 19 10/22/16 10:45 86 148/82 100 10/22/16 10:29 79 24 138/78 99 10/22/16 10:14 83 24 139/78 98 10/22/16 10:00 100 H 23 98 10/22/16 09:59 93 H 21 122/77 99 10/22/16 09:44 91 H 18 134/78 97 Intake and Output (Last 8hrs): Intake & Output 10/21/16 10/22/16 10/22/16 22:59 06:59 14:59 Intake Total 1603 962 3524 Output Total 565 725 700 Balance 455 15 380 Weight 156 lb 6.4 oz Intake: Intake, IV Amount 510 340 580 Left Proximal Port 510 240 580 Internal Jugular Left Distal Port Internal 100 Jugular Oral 110 Tube Feeding 400 400 350 Other 150 Output: Urine 565 725 700 Urethral ([place]) 565 725 700 Stool 0 0 0 Other: # Bowel Movements 0 - Medications Active Medications: Active Medications Generic Name Dose Route Start Last Admin Trade Name Freq PRN Reason Stop Dose Admin Acetaminophen 650 mg 10/21/16 20:56 10/22/16 08:03 Tylenol 325mg Tab PO 650 mg Q6 PRN Administration Fever >100.4 F Amlodipine Besylate 5 mg 10/21/16 12:30 10/22/16 09:37 Norvasc PO 5 mg DAILY OMAR Administration Moxifloxacin HCl 250 mls @ 167 mls/hr 10/21/16 18:00 10/21/16 17:19 Avelox Iv 400mg/250ml Ns IVPB 167 mls/hr Q24H OMAR Administration Levetiracetam 500 mg/ Sodium 105 mls @ 420 mls/hr 10/21/16 17:00 10/22/16 05:01 Chloride IVPB 420 mls/hr Q12H OMAR Administration Nicardipine HCl 25 mg/ Sodium 250 mls @ 50 mls/hr 10/21/16 18:15 10/22/16 10:27 Chloride IV Not Given .Q5H OMAR Protocol 5 MG/HR Sodium Chloride 1,000 mls @ 125 mls/hr 10/22/16 10:15 10/22/16 10:13 Sodium Chloride 0.9% IV 125 mls/hr .Q8H OMAR Administration Labetalol HCl 100 mg 10/21/16 11:45 10/22/16 09:37 Trandate PO 100 mg Q12 OMAR Administration Lisinopril 5 mg 10/21/16 11:45 10/22/16 09:37 Zestril PO 5 mg DAILY OMAR Administration Pantoprazole Sodium 40 mg 10/19/16 10:00 10/22/16 09:37 Protonix Inj IVP 40 mg DAILY OMAR Administration - Patient Studies Lab Studies: Microbiology Studies 10/21/16 16:54 Gram Stain - Final Trachasp Lab Studies 10/22/16 10/22/16 10/22/16 Range/Units 06:47 06:42 05:25 WBC 14.5 H (4.8-10.8) K/uL RBC 4.24 L (4.40-5.90) Mil/uL Hgb 11.5 L (12.0-18.0) g/dL Hct 34.9 L (35.0-51.0) % MCV 82.3 (80.0-94.0) fL MCH 27.2 (27.0-31.0) pg MCHC 33.0 (33.0-37.0) g/dL RDW 14.7 H (11.5-14.5) % Plt Count 201 (130-400) K/uL MPV 9.2 (7.2-11.7) fL Neut % (Auto) 80.6 H (50.0-75.0) % Lymph % (Auto) 8.9 L (20.0-40.0) % [place] % (Auto) 10.3 H (0.0-10.0) % Eos % (Auto) 0.0 (0.0-4.0) % Baso % (Auto) 0.2 (0.0-2.0) % Neut # 11.7 H (1.8-7.0) K/uL Lymph # 1.3 (1.0-4.3) K/uL [place] # 1.5 H (0.0-0.8) K/uL Eos # 0.0 (0.0-0.7) K/uL Baso # 0.0 (0.0-0.2) K/uL Neutrophils % (Manual) 78 H (50-75) % Band Neutrophils % 2 (0-2) % Lymphocytes % (Manual) 12 L (20-40) % Monocytes % (Manual) 8 (0-10) % Toxic Granulation Present Platelet Estimate Normal (NORMAL) Large Platelets Present Giant Platelets Present Polychromasia Slight Hypochromasia (manual) Slight Poikilocytosis (manual Slight Anisocytosis (manual) Slight Ovalocytes Slight Puncture Site Rb pCO2 33 L (35-45) mm/Hg pO2 57 L (80-100) mm/Hg HCO3 28.1 H (21-28) mmol/L ABG pH 7.52 H (7.35-7.45) ABG Total CO2 27.9 (22-28) mmol/L ABG O2 Saturation 94.6 L (95-98) % ABG Base Excess 4.2 H (-2.0-3.0) mmol/L ABG Hemoglobin 11.1 L (11.7-17.4) g/dL ABG Carboxyhemoglobin 1.2 (0.5-1.5) % POC ABG HHb (Measured) 5.3 H (0.0-5.0) % ABG Methemoglobin 0.6 (0.0-3.0) % [place] Test Pos A-a O2 Difference 116.0 mm/Hg Respiratory Index 2.0 Hgb O2 Saturation 92.9 L (95.0-98.0) % Mechanical Rate 16 FiO2 30.0 % Tidal Volume 500 PEEP 5 Sodium 152 H (132-148) mmol/L Potassium 3.3 L (3.6-5.2) mmol/L Chloride 109 H (98-107) mmol/L Carbon Dioxide 29 (22-30) mmol/L Anion Gap 17 (10-20) BUN 29 H (9-20) mg/dL Creatinine 1.3 (0.8-1.5) MG/DL Est GFR ( Amer) > 60 Est GFR (Non-Af Amer) 57 Random Glucose 134 H (75-110) mg/dL Calcium 8.3 L (8.6-10.4) mg/dl Phosphorus 3.3 (2.5-4.5) mg/dL Magnesium 2.3 (1.6-2.3) mg/dL Total Bilirubin 0.7 (0.2-1.3) mg/dL AST 38 (17-59) U/L ALT 49 (21-72) U/L Alkaline Phosphatase 59 (38-126) U/L Total Protein 6.4 (6.3-8.3) g/dL Albumin 2.9 L D (3.5-5.0) g/dL Globulin 3.5 (2.2-3.9) gm/dL Albumin/Globulin Ratio 0.8 L (1.0-2.1) Procalcitonin 0.16 L (0.19-0.49) NG/ML Urine Color (YELLOW) Urine Clarity (Clear) Urine pH (5.0-8.0) Ur Specific [place] (1.003-1.030) Urine Protein (NEGATIVE) mg/dL Urine Glucose (UA) (Normal) mg/dL Urine Ketones (NEGATIVE) mg/dL Urine Blood (NEGATIVE) Urine Nitrate (NEGATIVE) Urine Bilirubin (NEGATIVE) Urine Urobilinogen (0.2-1.0) mg/dL Ur Leukocyte Esterase (Negative) [place]/uL Urine WBC (Auto) (0-5) /hpf Urine RBC (Auto) (0-3) /hpf Urine Bacteria (<OCC) 10/21/16 Range/Units 16:58 WBC (4.8-10.8) K/uL RBC (4.40-5.90) Mil/uL Hgb (12.0-18.0) g/dL Hct (35.0-51.0) % MCV (80.0-94.0) fL MCH (27.0-31.0) pg MCHC (33.0-37.0) g/dL RDW (11.5-14.5) % Plt Count (130-400) K/uL MPV (7.2-11.7) fL Neut % (Auto) (50.0-75.0) % Lymph % (Auto) (20.0-40.0) % [place] % (Auto) (0.0-10.0) % Eos % (Auto) (0.0-4.0) % Baso % (Auto) (0.0-2.0) % Neut # (1.8-7.0) K/uL Lymph # (1.0-4.3) K/uL [place] # (0.0-0.8) K/uL Eos # (0.0-0.7) K/uL Baso # (0.0-0.2) K/uL Neutrophils % (Manual) (50-75) % Band Neutrophils % (0-2) % Lymphocytes % (Manual) (20-40) % Monocytes % (Manual) (0-10) % Toxic Granulation Platelet Estimate (NORMAL) Large Platelets Giant Platelets Polychromasia Hypochromasia (manual) Poikilocytosis (manual Anisocytosis (manual) Ovalocytes Puncture Site pCO2 (35-45) mm/Hg pO2 (80-100) mm/Hg HCO3 (21-28) mmol/L ABG pH (7.35-7.45) ABG Total CO2 (22-28) mmol/L ABG O2 Saturation (95-98) % ABG Base Excess (-2.0-3.0) mmol/L ABG Hemoglobin (11.7-17.4) g/dL ABG Carboxyhemoglobin (0.5-1.5) % POC ABG HHb (Measured) (0.0-5.0) % ABG Methemoglobin (0.0-3.0) % [place] Test A-a O2 Difference mm/Hg Respiratory Index Hgb O2 Saturation (95.0-98.0) % Mechanical Rate FiO2 % Tidal Volume PEEP Sodium (132-148) mmol/L Potassium (3.6-5.2) mmol/L Chloride (98-107) mmol/L Carbon Dioxide (22-30) mmol/L Anion Gap (10-20) BUN (9-20) mg/dL Creatinine (0.8-1.5) MG/DL Est GFR ( Amer) Est GFR (Non-Af Amer) Random Glucose (75-110) mg/dL Calcium (8.6-10.4) mg/dl Phosphorus (2.5-4.5) mg/dL Magnesium (1.6-2.3) mg/dL Total Bilirubin (0.2-1.3) mg/dL AST (17-59) U/L ALT (21-72) U/L Alkaline Phosphatase (38-126) U/L Total Protein (6.3-8.3) g/dL Albumin (3.5-5.0) g/dL Globulin (2.2-3.9) gm/dL Albumin/Globulin Ratio (1.0-2.1) Procalcitonin (0.19-0.49) NG/ML Urine Color Yellow (YELLOW) Urine Clarity Hazy (Clear) Urine pH 5.0 (5.0-8.0) Ur Specific [place] 1.019 (1.003-1.030) Urine Protein 1+ H (NEGATIVE) mg/dL Urine Glucose (UA) 1+ H (Normal) mg/dL Urine Ketones Negative (NEGATIVE) mg/dL Urine Blood 3+ H (NEGATIVE) Urine Nitrate Negative (NEGATIVE) Urine Bilirubin Negative (NEGATIVE) Urine Urobilinogen Normal (0.2-1.0) mg/dL Ur Leukocyte Esterase Trace (Negative) [place]/uL Urine WBC (Auto) 5 (0-5) /hpf Urine RBC (Auto) 34 H (0-3) /hpf Urine Bacteria Rare (<OCC) Laboratory Results - last 24 hr 10/21/16 10/22/16 10/22/16 16:58 05:25 06:42 WBC RBC Hgb Hct MCV MCH MCHC RDW Plt Count MPV Neut % (Auto) Lymph % (Auto) [place] % (Auto) Eos % (Auto) Baso % (Auto) Neut # Lymph # [place] # Eos # Baso # Neutrophils % (Manual) Band Neutrophils % Lymphocytes % (Manual) Monocytes % (Manual) Toxic Granulation Platelet Estimate Large Platelets Giant Platelets Polychromasia Hypochromasia (manual) Poikilocytosis (manual Anisocytosis (manual) Ovalocytes Puncture Site Rb pCO2 33 L pO2 57 L HCO3 28.1 H ABG pH 7.52 H ABG Total CO2 27.9 ABG O2 Saturation 94.6 L ABG Base Excess 4.2 H ABG Hemoglobin 11.1 L ABG Carboxyhemoglobin 1.2 POC ABG HHb (Measured) 5.3 H ABG Methemoglobin 0.6 [place] Test Pos A-a O2 Difference 116.0 Respiratory Index 2.0 Hgb O2 Saturation 92.9 L Mechanical Rate 16 FiO2 30.0 Tidal Volume 500 PEEP 5 Sodium 152 H Potassium 3.3 L Chloride 109 H Carbon Dioxide 29 Anion Gap 17 BUN 29 H Creatinine 1.3 Est GFR ( Amer) > 60 Est GFR (Non-Af Amer) 57 Random Glucose 134 H Calcium 8.3 L Phosphorus 3.3 Magnesium 2.3 Total Bilirubin 0.7 AST 38 ALT 49 Alkaline Phosphatase 59 Total Protein 6.4 Albumin 2.9 L D Globulin 3.5 Albumin/Globulin Ratio 0.8 L Procalcitonin 0.16 L Urine Color Yellow Urine Clarity Hazy Urine pH 5.0 Ur Specific [place] 1.019 Urine Protein 1+ H Urine Glucose (UA) 1+ H Urine Ketones Negative Urine Blood 3+ H Urine Nitrate Negative Urine Bilirubin Negative Urine Urobilinogen Normal Ur Leukocyte Esterase Trace Urine WBC (Auto) 5 Urine RBC (Auto) 34 H Urine Bacteria Rare 10/22/16 06:47 WBC 14.5 H RBC 4.24 L Hgb 11.5 L Hct 34.9 L MCV 82.3 MCH 27.2 MCHC 33.0 RDW 14.7 H Plt Count 201 MPV 9.2 Neut % (Auto) 80.6 H Lymph % (Auto) 8.9 L [place] % (Auto) 10.3 H Eos % (Auto) 0.0 Baso % (Auto) 0.2 Neut # 11.7 H Lymph # 1.3 [place] # 1.5 H Eos # 0.0 Baso # 0.0 Neutrophils % (Manual) 78 H Band Neutrophils % 2 Lymphocytes % (Manual) 12 L Monocytes % (Manual) 8 Toxic Granulation Present Platelet Estimate Normal Large Platelets Present Giant Platelets Present Polychromasia Slight Hypochromasia (manual) Slight Poikilocytosis (manual Slight Anisocytosis (manual) Slight Ovalocytes Slight Puncture Site pCO2 pO2 HCO3 ABG pH ABG Total CO2 ABG O2 Saturation ABG Base Excess ABG Hemoglobin ABG Carboxyhemoglobin POC ABG HHb (Measured) ABG Methemoglobin [place] Test A-a O2 Difference Respiratory Index Hgb O2 Saturation Mechanical Rate FiO2 Tidal Volume PEEP Sodium Potassium Chloride Carbon Dioxide Anion Gap BUN Creatinine Est GFR ( Amer) Est GFR (Non-Af Amer) Random Glucose Calcium Phosphorus Magnesium Total Bilirubin AST ALT Alkaline Phosphatase Total Protein Albumin Globulin Albumin/Globulin Ratio Procalcitonin Urine Color Urine Clarity Urine pH Ur Specific [place] Urine Protein Urine Glucose (UA) Urine Ketones Urine Blood Urine Nitrate Urine Bilirubin Urine Urobilinogen Ur Leukocyte Esterase Urine WBC (Auto) Urine RBC (Auto) Urine Bacteria Fingerstick Blood Sugar Results: 139 Critical Care Progress Note - Nutrition Nutrition: Nutrition Category Date Time Status NPO Diet [DIET] Diets 10/18/16 Breakfast Active
--- NOTE | 2016-10-22 14:04 | CT ---
PROCEDURE: CT HEAD WITHOUT CONTRAST. HISTORY: severe basal ganglia hemorrhage follow up COMPARISON: None available. TECHNIQUE: Axial computed tomography images were obtained through the head/brain without intravenous contrast. Radiation dose: Total exam DLP = 1377.8 mGy-cm. FINDINGS: HEMORRHAGE: Re- demonstrated is left basal ganglia at hematoma likely hypertensive in origin. There is a surrounding rim of low-attenuation in likely representing edema and possibly some necrotic brain tissue. . . The hemorrhage has dissected into the ventricular system with a moderately large amount of blood in the lateral ventricles, left greater than right, 3rd ventricle with layering hemorrhage in the atria/occipital horns. Hemorrhage is also seen within the 4th ventricle. BRAIN: Chronic white matter at as well as suspected bilateral basal nuclei ischemic changes. VENTRICLES: There is dilatation of the temporal and occipital horns as well as atria consistent with mild noncommunicating obstructive hydrocephalus. CALVARIUM: No acute calvarial fractures. PARANASAL SINUSES: Mild mucosal thickening within the ethmoid and sphenoid sinuses. . MASTOID AIR CELLS: Unremarkable as visualized. No inflammatory changes. OTHER FINDINGS: None. IMPRESSION: Re- demonstrated is left basal ganglia hematoma likely hypertensive in origin with a surrounding rim of low-attenuation edema. Large amount of intraventricular hemorrhage with the dilatation of the at temporal horns and atria consistent with noncommunicating obstructive type hydrocephalus. Chronic white matter ischemic changes. In addition, there also appear to be scattered chronic bilateral basal nuclei lacunar type infarcts.
[2016-10-22] MEDS ORDERED: Labetalol 25mg/5ml Syringe IV ONE (18:58)
--- NOTE | 2016-10-22 19:21 | PN ---
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 PATIENT EXAMINATION: He is comatose. Eyes are closed. Pupils are sluggishly reactive to light. Corneal reflex is sluggish. Gag impaired. Right-sided hemiplegia. Left side increased tone Plantars are upgoing on both sides. The patient on a 72-hour period, examination did not show any improvement. The CAT scan of the finding is also no progressive bleeding; however, obstructive hydrocephalus is well evident. The patient's condition has been well discussed with his son and also spent time of showing his CAT scan finding in the computer. Family totally aware of his irreversible neurological insult. Depending on their wish, the patient can continue further treatment including tracheostomy and PEG. Continue the present management. The patient's condition also well discussed with the womens volleyball coach. Enoc Simpson MD cc: [id number] TT: 10/22/2016 19:21:21 Confirmation # [id number] Dictation # [id number] vee DIXON
[2016-10-22] MEDS ORDERED: Labetalol 25mg/5ml Syringe IVP STA (20:02)
--- NOTE | 2016-10-22 20:26 | CP.PCM.PN ---
Subjective - Date & Time of Evaluation Date of Evaluation: 10/22/16 Time of Evaluation: 20:00 - Subjective Subjective: called by RN for pt biting ETT and vent alarm. assessed pt still unarousable to voice but now pt is localizing briskly with LUE to noxious stimuli opens eyes to noxious stimuli moving L toes spontaneously R remains hemiplegic will start low dose fentanyl for comfort order EEG holding keppra for now but will resume if there is any evidence for Sz activity notified neurology Alexis Samuels MD Objective - Vital Signs/Intake and Output Vital Signs (last 24 hours): Temp Pulse Resp BP Pulse Ox 102.3 F H 83 23 176/106 H 99 10/22/16 18:00 10/22/16 19:09 10/22/16 19:09 10/22/16 19:09 10/22/16 19:09 Intake and Output: 10/22/16 10/23/16 18:59 07:59 Intake Total 2005 175 Output Total 1125 140 Balance 880 35 - Medications Medications: Current Medications Acetaminophen (Tylenol 325mg Tab) 650 mg PO Q6 PRN PRN Reason: Fever >100.4 F Last Admin: 10/22/16 16:53 Dose: 650 mg Amlodipine Besylate (Norvasc) 10 mg PO DAILY [facility] Fentanyl (Fentanyl) 50 mcg IVP Q2 PRN PRN Reason: Sedation Heparin Sodium (Porcine) (Heparin) 5,000 units SC Q8 [facility] Last Admin: 10/22/16 14:17 Dose: 5,000 units Sodium Chloride (Sodium Chloride 0.9%) 1,000 mls @ 125 mls/hr IV .Q8H [facility] Last Admin: 10/22/16 18:14 Dose: 125 mls/hr Labetalol HCl (Trandate) 400 mg PO Q6 [facility] Lisinopril (Zestril) 20 mg PO DAILY [facility] Pantoprazole Sodium (Protonix Susp) 40 mg PO DAILY [facility] - Labs Labs: 10/22/16 06:47 10/22/16 06:42 PT 11.7 SECONDS (9.7-12.2) 10/21/16 06:11 INR 1.0 10/21/16 06:11 APTT 29 SECONDS (21-34) 10/21/16 06:11
[2016-10-23] MEDS: niCARdipine IV 25 MG in Sodium Chloride 0.9% 240 ML IV SCH ×5 (01:54→23:25)
[2016-10-23] MEDS: Sodium Chloride 0.9% 1,000 ML IV SCH (01:56)
[2016-10-23 05:15] LABS: ABG ALLEN TEST POS; ABG MECHANICAL RATE 24; ATERIAL BLOOD GAS PEEP 5; CARBOXYHEMOGLOBIN 0.9 % (0.5-1.5); DRAW SITE RR; HHB 4.4 % (0.0-5.0); METHEMOGLOBIN 0.7 % (0.0-3.0)
[2016-10-23 06:21] LABS: HEMATOCRIT 36.3 % (35.0-51.0); MEAN CELL VOLUME 82.4 fL (80.0-94.0); MEAN CORPUSCULAR HEMOGLOBIN 27.2 pg (27.0-31.0); MEAN PLATELET VOLUME 9.3 fL (7.2-11.7); RED CELL DISTRIBUTION WIDTH 14.5 % (11.5-14.5); WHITE BLOOD COUNT 14.5 K/uL (4.8-10.8)
[2016-10-23 06:28] LABS: CHLORIDE 109 mmol/L (98-107); POTASSIUM 3.7 mmol/L (3.6-5.2); SODIUM 151 mmol/L (132-148)
[2016-10-23 06:30] LABS: AST/SGOT 72 U/L (17-59); BILIRUBIN,TOTAL 0.7 mg/dL (0.2-1.3); CARBON DIOXIDE 26 mmol/L (22-30); GFR AFRICAN-AMERICAN > 60
[2016-10-23 06:31] LABS: ALB/GLOB RATIO 0.8 (1.0-2.1); ALKALINE PHOSPHATASE 86 U/L (38-126); ALT/SGPT 80 U/L (21-72); BLOOD UREA NITROGEN 27 mg/dL (9-20); CALCIUM 8.3 mg/dl (8.6-10.4); GLUCOSE,RANDOM 124 mg/dL (75-110); PHOSPHOROUS 3.8 mg/dL (2.5-4.5); TOTAL PROTEIN 6.9 g/dL (6.3-8.3)
[2016-10-23 06:32] LABS: MAGNESIUM 2.2 mg/dL (1.6-2.3)
[2016-10-23] MEDS: Pantoprazole 40 mg Susp UD PO SCH (09:14)
--- NOTE | 2016-10-23 09:38 | RAD ---
HISTORY: follow up COMPARISON: 10/22/2016 FINDINGS: LUNGS: Interval placement of a right-sided catheter projecting over the right upper abdomen and right heart extending to the the right atrium. Clinical correlation. Other lines and tubes in stable position. No evidence of pneumothorax. Mild venous congestion. Right hilar prominence. Biapical pleural thickening upper lobe granulomatous changes. PLEURA: As above. CARDIOVASCULAR: Normal. OSSEOUS STRUCTURES: No significant abnormalities. VISUALIZED UPPER ABDOMEN: Normal. OTHER FINDINGS: None. IMPRESSION: Interval placement of a right-sided catheter projecting over the right upper abdomen and right heart extending to the the right atrium. Clinical correlation. Other lines and tubes in stable position. No evidence of pneumothorax. Mild venous congestion. Right hilar prominence. Biapical pleural thickening upper lobe granulomatous changes.
--- NOTE | 2016-10-23 11:23 | CP.CCUPN ---
CCU Subjective - Physician Review Events Since Last Encounter (Free Text): 10/23/16 11:23 56-year-old male with a history of hypertension admitted with left basal ganglia hemorrhage and CVA with the some impending herniation. Patient is currently on ventilator. He is moving the left lower extremity and the left upper extremity minimally. Right sided he has a weakness. Currently patient is on Cardene drip for blood pressure control. He is on ventilator poorly responding. But last night patient has a significant agitation, morphine was given On examination: Vital signs reviewed Blood pressure stable currently. On ventilator. Full support ventilation. Chest good air entry bilaterally regular heart sound nontender abdomen extremities edema Labs reviewed Chest x-ray nonspecific. ET tube in good position. Sputum culture showing Klebsiella, on Avelox Assessment and recommendation: 56-year-old male with a history of hypertension admitted with the basal ganglia bleeding, complicated with the compression, and having acute respiratory failure on ventilator. Right-sided weakness. Possible pneumonia, most likely aspiration pneumonia, associated with the Klebsiella On antibiotic, currently on IV Avelox. We'll continue the current supportive care. But overall prognosis is poor. Patient will need a tracheostomy possibly. We'll try weaning process in the morning again Critical Care Time Spent (in minutes): 45 CCU Objective - Vital Signs / Intake & Output Vital Signs (Last 4 hours): Vital Signs Temp Pulse Resp BP Pulse Ox 10/23/16 10:00 91 H 22 135/76 98 10/23/16 09:00 89 21 124/74 97 10/23/16 08:00 99.8 F H 91 H 19 125/74 98 Intake and Output (Last 8hrs): Intake & Output 10/22/16 10/23/16 10/23/16 21:59 06:59 14:59 Intake Total 308 Output Total Balance 308 Weight Intake: Intake, IV Amount 8 Left Proximal Port Internal Jugular Left Distal Port Internal 8 Jugular Oral Tube Feeding 200 Other 100 Output: Urine Urethral (Plaza) Other: # Bowel Movements - Physical Exam Head: Positive for: Atraumatic, Normocephalic Pupils: Positive for: PERRL (minimal reactivity, intact corneal reflex), Pinpoint (2mm b/l) Conjunctiva: Positive for: Normal Pharnyx: Positive for: Other (cough and gag reflex intact) Respiratory/Chest: Positive for: Clear to Auscultation, Good Air Exchange. Negative for: Respiratory Distress, Accessory Muscle Use Cardiovascular: Positive for: Regular Rate and Rhythm, Normal S1, S2. Negative for: Murmurs Abdomen: Positive for: Normal Bowel Sounds. Negative for: Tenderness, Distention, Peritoneal Signs Upper Extremity: Positive for: Normal Inspection. Negative for: Cyanosis, Edema Lower Extremity: Positive for: Normal Inspection. Negative for: Edema Neurological: Positive for: Other (5/5 strength L extremities, minimal 0-1/5 strength R extremities, (-) Babinski B/L, no response to pain right extremities) Skin: Positive for: Warm, Dry, Normal Color. Negative for: Rashes - Medications Active Medications: Active Medications Generic Name Dose Route Start Last Admin Trade Name Freq PRN Reason Stop Dose Admin Acetaminophen 650 mg 10/21/16 20:56 10/22/16 16:53 Tylenol 325mg Tab PO 650 mg Q6 PRN Administration Fever >100.4 F Amlodipine Besylate 10 mg 10/22/16 13:45 10/23/16 09:14 Norvasc PO 10 mg DAILY OMAR Administration Fentanyl 50 mcg 10/22/16 20:04 10/23/16 05:54 Fentanyl IVP 50 mcg Q2 PRN Administration Sedation Nicardipine HCl 25 mg/ Sodium 250 mls @ 50 mls/hr 10/22/16 20:45 10/23/16 09:15 Chloride IV 0 mg/hr .Q5H OMAR Titration Protocol 5 MG/HR Moxifloxacin HCl 250 mls @ 167 mls/hr 10/23/16 10:30 Avelox Iv 400mg/250ml Ns IVPB Q24H OMAR Labetalol HCl 400 mg 10/23/16 00:00 10/23/16 05:55 Trandate PO 400 mg Q6 OMAR Administration Lisinopril 20 mg 10/22/16 20:15 10/23/16 09:14 Zestril PO 20 mg DAILY OMAR Administration Pantoprazole Sodium 40 mg 10/23/16 10:00 10/23/16 09:14 Protonix Susp PO 40 mg DAILY OMAR Administration - Patient Studies Lab Studies: Microbiology Studies 10/22/16 Unknown Urine Culture - Final Urine,[place] No Growth (<1,000 CFU/ML) 10/21/16 16:54 Gram Stain - Final Trachasp Sputum Culture - Final Klebsiella Pneumoniae Ssp Pneu 10/21/16 16:39 Blood Culture - Preliminary Blood-Venous NO GROWTH AFTER 24 HOURS 10/21/16 16:39 Blood Culture - Preliminary Blood-Venous NO GROWTH AFTER 24 HOURS Lab Studies 10/23/16 10/23/16 10/22/16 Range/Units 06:13 05:10 06:42 WBC 14.5 H (4.8-10.8) K/uL RBC 4.40 (4.40-5.90) Mil/uL Hgb 12.0 (12.0-18.0) g/dL Hct 36.3 (35.0-51.0) % MCV 82.4 (80.0-94.0) fL MCH 27.2 (27.0-31.0) pg MCHC 33.0 (33.0-37.0) g/dL RDW 14.5 (11.5-14.5) % Plt Count 201 (130-400) K/uL MPV 9.3 (7.2-11.7) fL Puncture Site Rr pCO2 33 L (35-45) mm/Hg pO2 66 L (80-100) mm/Hg HCO3 25.5 (21-28) mmol/L ABG pH 7.47 H (7.35-7.45) ABG Total CO2 25.0 (22-28) mmol/L ABG O2 Saturation 95.5 (95-98) % ABG Base Excess 0.8 (-2.0-3.0) mmol/L ABG Hemoglobin 12.1 (11.7-17.4) g/dL ABG Carboxyhemoglobin 0.9 (0.5-1.5) % POC ABG HHb (Measured) 4.4 (0.0-5.0) % ABG Methemoglobin 0.7 (0.0-3.0) % Kalyan Test Pos A-a O2 Difference 107.0 mm/Hg Respiratory Index 1.6 Hgb O2 Saturation 94.0 L (95.0-98.0) % Mechanical Rate 24 FiO2 30.0 % Tidal Volume 600 PEEP 5 Sodium 151 H (132-148) mmol/L Potassium 3.7 (3.6-5.2) mmol/L Chloride 109 H (98-107) mmol/L Carbon Dioxide 26 (22-30) mmol/L Anion Gap 20 (10-20) BUN 27 H (9-20) mg/dL Creatinine 1.2 (0.8-1.5) MG/DL Est GFR ( Amer) > 60 Est GFR (Non-Af Amer) > 60 Random Glucose 124 H (75-110) mg/dL Calcium 8.3 L (8.6-10.4) mg/dl Phosphorus 3.8 (2.5-4.5) mg/dL Magnesium 2.2 (1.6-2.3) mg/dL Total Bilirubin 0.7 (0.2-1.3) mg/dL AST 72 H D (17-59) U/L ALT 80 H D (21-72) U/L Alkaline Phosphatase 86 (38-126) U/L Total Protein 6.9 (6.3-8.3) g/dL Albumin 3.0 L (3.5-5.0) g/dL Globulin 3.9 (2.2-3.9) gm/dL Albumin/Globulin Ratio 0.8 L (1.0-2.1) Procalcitonin 0.16 L (0.19-0.49) NG/ML Laboratory Results - last 24 hr 10/22/16 10/23/16 10/23/16 06:42 05:10 06:13 WBC 14.5 H RBC 4.40 Hgb 12.0 Hct 36.3 MCV 82.4 MCH 27.2 MCHC 33.0 RDW 14.5 Plt Count 201 MPV 9.3 Puncture Site Rr pCO2 33 L pO2 66 L HCO3 25.5 ABG pH 7.47 H ABG Total CO2 25.0 ABG O2 Saturation 95.5 ABG Base Excess 0.8 ABG Hemoglobin 12.1 ABG Carboxyhemoglobin 0.9 POC ABG HHb (Measured) 4.4 ABG Methemoglobin 0.7 Kalyan Test Pos A-a O2 Difference 107.0 Respiratory Index 1.6 Hgb O2 Saturation 94.0 L Mechanical Rate 24 FiO2 30.0 Tidal Volume 600 PEEP 5 Sodium 151 H Potassium 3.7 Chloride 109 H Carbon Dioxide 26 Anion Gap 20 BUN 27 H Creatinine 1.2 Est GFR ( Amer) > 60 Est GFR (Non-Af Amer) > 60 Random Glucose 124 H Calcium 8.3 L Phosphorus 3.8 Magnesium 2.2 Total Bilirubin 0.7 AST 72 H D ALT 80 H D Alkaline Phosphatase 86 Total Protein 6.9 Albumin 3.0 L Globulin 3.9 Albumin/Globulin Ratio 0.8 L Procalcitonin 0.16 L Fingerstick Blood Sugar Results: 139 Critical Care Progress Note - Nutrition Nutrition: Nutrition Category Date Time Status NPO Diet [DIET] Diets 10/18/16 Breakfast Active
[2016-10-23] MEDS: Moxifloxacin IV 400mg/250ml NS 250 ML IVPB SCH (12:17)
--- NOTE | 2016-10-23 15:29 | CP.PCM.CON ---
History of Present Illness - History of Present Illness History of Present Illness: dictated Past Patient History - Infectious Disease Hx of Infectious Diseases: None - Past Medical History & Family History Past Medical History?: No - Past Social History Smoking Status: Former Smoker - CARDIAC Hx Cardiac Disorders: Yes Hx Hypertension: Yes - PULMONARY Hx Respiratory Disorders: Yes - NEUROLOGICAL Hx Neurological Disorder: Yes - HEENT Hx HEENT Problems: Yes - RENAL Hx Chronic Kidney Disease: Yes - ENDOCRINE/METABOLIC Hx Endocrine Disorders: Yes - HEMATOLOGICAL/ONCOLOGICAL Hx Blood Disorders: Yes - INTEGUMENTARY Hx Dermatological Problems: Yes - MUSCULOSKELETAL/RHEUMATOLOGICAL Hx Arthritis: Yes - GASTROINTESTINAL Hx Gastrointestinal Disorders: Yes - GENITOURINARY/GYNECOLOGICAL Hx Genitourinary Disorders: Yes - PSYCHIATRIC Hx Psychophysiologic Disorder: Yes Hx Substance Use: No - SURGICAL HISTORY Hx Surgeries: No - ANESTHESIA Hx Anesthesia: No Meds Allergies/Adverse Reactions: Allergies Allergy/AdvReac Type Severity Reaction Status Date / Time No Known Allergies Allergy Verified 10/18/16 15:57 - Medications Medications: Current Medications Acetaminophen (Tylenol 325mg Tab) 650 mg PO Q6 PRN PRN Reason: Fever >100.4 F Last Admin: 10/22/16 16:53 Dose: 650 mg Amlodipine Besylate (Norvasc) 10 mg PO DAILY [facility] Last Admin: 10/23/16 09:14 Dose: 10 mg Fentanyl (Fentanyl) 50 mcg IVP Q2 PRN PRN Reason: Sedation Last Admin: 10/23/16 05:54 Dose: 50 mcg Nicardipine HCl 25 mg/ Sodium (Chloride) 250 mls @ 50 mls/hr IV .Q5H OMAR; 5 MG/ HR PRN Reason: Protocol Last Admin: 10/23/16 12:20 Dose: Not Given Moxifloxacin HCl (Avelox Iv 400mg/250ml Ns) 250 mls @ 167 mls/hr IVPB Q24H OMAR Last Admin: 10/23/16 12:17 Dose: 167 mls/hr Labetalol HCl (Trandate) 400 mg PO Q6 OMAR Last Admin: 10/23/16 12:22 Dose: 400 mg Lisinopril (Zestril) 20 mg PO DAILY OMAR Last Admin: 10/23/16 09:14 Dose: 20 mg Pantoprazole Sodium (Protonix Susp) 40 mg PO DAILY OMAR Last Admin: 10/23/16 09:14 Dose: 40 mg Results - Vital Signs Recent Vital Signs: Last Vital Signs Temp 99.6 F 10/23/16 12:00 Pulse 84 10/23/16 15:00 Resp 19 10/23/16 15:00 BP 138/72 10/23/16 15:00 Pulse Ox 98 10/23/16 15:00 - Labs Result Diagrams: 10/23/16 06:13 10/23/16 06:13 Labs: Laboratory Results - last 24 hr 10/23/16 10/23/16 05:10 06:13 WBC 14.5 H RBC 4.40 Hgb 12.0 Hct 36.3 MCV 82.4 MCH 27.2 MCHC 33.0 RDW 14.5 Plt Count 201 MPV 9.3 Puncture Site Rr pCO2 33 L pO2 66 L HCO3 25.5 ABG pH 7.47 H ABG Total CO2 25.0 ABG O2 Saturation 95.5 ABG Base Excess 0.8 ABG Hemoglobin 12.1 ABG Carboxyhemoglobin 0.9 POC ABG HHb (Measured) 4.4 ABG Methemoglobin 0.7 Kalyan Test Pos A-a O2 Difference 107.0 Respiratory Index 1.6 Hgb O2 Saturation 94.0 L Mechanical Rate 24 FiO2 30.0 Tidal Volume 600 PEEP 5 Sodium 151 H Potassium 3.7 Chloride 109 H Carbon Dioxide 26 Anion Gap 20 BUN 27 H Creatinine 1.2 Est GFR ( Amer) > 60 Est GFR (Non-Af Amer) > 60 Random Glucose 124 H Calcium 8.3 L Phosphorus 3.8 Magnesium 2.2 Total Bilirubin 0.7 AST 72 H D ALT 80 H D Alkaline Phosphatase 86 Total Protein 6.9 Albumin 3.0 L Globulin 3.9 Albumin/Globulin Ratio 0.8 L
--- NOTE | 2016-10-23 19:44 | CP.PCM.PN ---
Subjective - Date & Time of Evaluation Date of Evaluation: 10/23/16 Time of Evaluation: 12:50 - Subjective Subjective: Patient spiking fever yesterday; Objective - Vital Signs/Intake and Output Vital Signs (last 24 hours): Temp Pulse Resp BP Pulse Ox 100.9 F H 89 22 154/92 H 99 10/23/16 19:00 10/23/16 19:00 10/23/16 19:00 10/23/16 19:00 10/23/16 19:00 Intake and Output: 10/23/16 10/24/16 18:59 06:59 Intake Total 1183 50 Output Total 1160 100 Balance 23 -50 - Medications Medications: Current Medications Acetaminophen (Tylenol 325mg Tab) 650 mg PO Q6 PRN PRN Reason: Fever >100.4 F Last Admin: 10/22/16 16:53 Dose: 650 mg Amlodipine Besylate (Norvasc) 10 mg PO DAILY [facility] Last Admin: 10/23/16 09:14 Dose: 10 mg Fentanyl (Fentanyl) 50 mcg IVP Q2 PRN PRN Reason: Sedation Last Admin: 10/23/16 05:54 Dose: 50 mcg Nicardipine HCl 25 mg/ Sodium (Chloride) 250 mls @ 50 mls/hr IV .Q5H OMAR; 5 MG/ HR PRN Reason: Protocol Last Admin: 10/23/16 16:50 Dose: Not Given Moxifloxacin HCl (Avelox Iv 400mg/250ml Ns) 250 mls @ 167 mls/hr IVPB Q24H OMAR Last Admin: 10/23/16 12:17 Dose: 167 mls/hr Labetalol HCl (Trandate) 400 mg PO Q6 OMAR Last Admin: 10/23/16 17:38 Dose: 400 mg Lisinopril (Zestril) 20 mg PO DAILY OMAR Last Admin: 10/23/16 09:14 Dose: 20 mg Pantoprazole Sodium (Protonix Susp) 40 mg PO DAILY OMAR Last Admin: 10/23/16 09:14 Dose: 40 mg - Labs Labs: 10/23/16 06:13 10/23/16 06:13 PT 11.7 SECONDS (9.7-12.2) 10/21/16 06:11 INR 1.0 10/21/16 06:11 APTT 29 SECONDS (21-34) 10/21/16 06:11 - Constitutional Appears: No Acute Distress - Head Exam Head Exam: NORMAL INSPECTION - Eye Exam Eye Exam: absent: Conjunctival injection, Scleral icterus Additional comments: spontaneous eye movements - ENT Exam ENT Exam: Mucous Membranes Moist - Neck Exam Neck Exam: Normal Inspection Additional comments: intubated - Respiratory Exam Respiratory Exam: Clear to Ausculation Bilateral, NORMAL BREATHING PATTERN - Cardiovascular Exam Cardiovascular Exam: REGULAR RHYTHM, +S1, +S2 - GI/Abdominal Exam GI & Abdominal Exam: Soft. absent: Distended - Extremities Exam Extremities Exam: Normal Inspection - Neurological Exam Neurological Exam: Altered Additional comments: Flaccid R arm and leg; spontaneously moving L toes; - Skin Skin Exam: Warm. absent: Cyanosis Assessment and Plan (1) Intracranial hemorrhage Assessment & Plan: Basal ganglia bleed with extension to ventricles; with small rim of associated edema but likely no more benefit from mannitol (also, already hyperosmolar with elevated Na); Status: Acute (2) Hypertensive emergency Assessment & Plan: Placed back on nicardipine drip; on PO lisinopril, labetalol and amlodipine; seeking to taper off drip; Status: Resolved (3) CVA (cerebral vascular accident) Assessment & Plan: Poor prognosis for any meaningful recovery of neurologic function per neurologist; discussed with son regarding trach/PEG; Status: Acute (4) Pneumonia Assessment & Plan: Klebsiella growing in tracheal culture; on avelox, continue; Status: Acute
--- NOTE | 2016-10-23 20:58 | CON ---
DATE: 10/23/2016 REASON FOR CONSULTATION: Requested for increasing WBC count. HISTORY OF PRESENT ILLNESS: This patient is a 56-year-old male. He was admitted with intracranial b leed. He is intubated. He is in ICU 4. I am asked to evaluate. The patient was accompanied with t he daughter in the morning of admission, which is 10/18. The daughter was unsure of the patient's past medical history as he has just immigrated to the [place] from the [place] in April and his past medical history is not known . ALLERGIES: No allergies known at that time when he was admitted. MEDICATIONS: At present include amlodipine, fentanyl, Trandate, Zestril. He is on Avelox, nicardipi ne, Protonix and Tylenol. He is being followed by the neurologist. He is in the ICU and he was started on antibiotic as his wh ite count was elevated. REVIEW OF SYSTEMS: I am unable to take review of systems, he remains intubated. PHYSICAL EXAMINATION: VITAL SIGNS: He is on a cooling blanket. Temperature is 99.6, pulse 91, blood pressure 128/78, resp irations are 22. He remains on mechanical ventilation, unresponsive. NECK: Supple. LUNGS: Clear at this time. No crackles or rales heard. HEART: S1, S2 is regular. No murmurs appreciated. ABDOMEN: Soft, nontender. EXTREMITIES: Have no edema at this time. SKIN: Has no rashes. LABORATORY DATA: Noted. Labs show white count is 14.5, hemoglobin 12, hematocrit 36.3, platelet cou nt is 201. His potassium is 3.7. Sodium 151, chloride 109, BUN is 27, creatinine is 1.2. Micro-wis e, a sputum grew Klebsiella, may have aspirated and Klebsiella which is sensitive to Cipro and very s ensitive to moxifloxacin and he is on that. He also had a CAT scan of the head done on 10/22, which s hows a redemonstrated left ganglia, , likely hypertensive in origin, surrounding rim of lower at tenuations likely representing edema and possibly some necrotic brain tissue hemorrhage has dissecte d into the ventricular system with a moderately large amount of blood in the lateral ventricle, left greater than right, third ventricle layering hemorrhage. So, he does have intracranial hemorrhage and remains intubated, has Klebsiella in the sputum. He is on Avelox, which will cover it for now. Prognosis remains guarded. Will follow. Lisa Chavez MD cc: [id number] TT: 10/23/2016 20:57:16 Confirmation # [id number] Dictation # [id number]
[2016-10-24 04:34] LABS: ABG ALLEN TEST POS; ABG MECHANICAL RATE 24; ARTERIAL BLOOD HGB O2 SAT 96.2 % (95.0-98.0); ATERIAL BLOOD GAS PEEP 5; CARBOXYHEMOGLOBIN 0.3 % (0.5-1.5); DRAW SITE RR; HHB 2.3 % (0.0-5.0); METHEMOGLOBIN 1.1 % (0.0-3.0)
[2016-10-24 06:33] LABS: BASO % 0.3 % (0.0-2.0); EOS % 0.2 % (0.0-4.0); HEMATOCRIT 33.7 % (35.0-51.0); LYMPH # 1.4 K/uL (1.0-4.3); LYMPH % 12.6 % (20.0-40.0); MEAN CELL VOLUME 82.3 fL (80.0-94.0); MEAN CORPUSCULAR HGB CONC 32.8 g/dL (33.0-37.0); MEAN PLATELET VOLUME 9.3 fL (7.2-11.7); MONO # 0.7 K/uL (0.0-0.8); MONO % 6.4 % (0.0-10.0); RED CELL DISTRIBUTION WIDTH 14.6 % (11.5-14.5); WHITE BLOOD COUNT 11.3 K/uL (4.8-10.8)
[2016-10-24 06:41] LABS: CHLORIDE 107 mmol/L (98-107)
[2016-10-24 06:42] LABS: POTASSIUM 3.7 mmol/L (3.6-5.2); SODIUM 150 mmol/L (132-148)
[2016-10-24 06:44] LABS: ALB/GLOB RATIO 0.8 (1.0-2.1); BILIRUBIN,TOTAL 0.5 mg/dL (0.2-1.3); CARBON DIOXIDE 29 mmol/L (22-30); GFR AFRICAN-AMERICAN > 60; TOTAL PROTEIN 6.2 g/dL (6.3-8.3)
[2016-10-24 06:45] LABS: ALKALINE PHOSPHATASE 93 U/L (38-126); ALT/SGPT 92 U/L (21-72); AST/SGOT 72 U/L (17-59); BLOOD UREA NITROGEN 34 mg/dL (9-20); CALCIUM 8.2 mg/dl (8.6-10.4); GLUCOSE,RANDOM 124 mg/dL (75-110); PHOSPHOROUS 4.6 mg/dL (2.5-4.5)
[2016-10-24 06:46] LABS: MAGNESIUM 2.3 mg/dL (1.6-2.3)
--- NOTE | 2016-10-24 08:02 | CP.CCUPN ---
CCU Subjective - Physician Review Subjective (Free Text): 10/24/16 21:01 Patient seen and examined at bedside. The patient appears to be in no acute distress with no noteworthy events per nursing. The patient had a fever over the weekend. Sputum cultures were positive for Klebsiella. Patient is on IV Avelox. The patient is intubated (FiO2 30 PEEP 5 RATE 24 TV 500ml, Peak 24). Patient is able to open eyes spontaneously and track with his eyes. Patient has weak movement with his left upper and lower extremities. Digits on left foot has spastic movements. Patient has minimal movement of right extremities and reacts to painful stimuli. [facility] unable [facility] at this time due to clinical status. Critical Care Time Spent (in minutes): 39 CCU Objective - Vital Signs / Intake & Output Vital Signs (Last 4 hours): Vital Signs Pulse Resp BP Pulse Ox 10/24/16 07:00 68 24 161/91 H 96 10/24/16 06:00 72 24 147/84 96 10/24/16 05:00 72 24 148/84 96 Intake and Output (Last 8hrs): Intake & Output 10/23/16 10/24/16 10/24/16 22:59 06:59 14:59 Intake Total 625 400 50 Output Total 870 720 70 Balance -245 -320 -20 Weight 0 oz Intake: Intake, IV Amount 0 0 0 Left Distal Port Internal 0 0 0 Jugular Tube Feeding 400 400 50 Other 225 Output: Urine 870 720 70 Urethral (Dumas) 870 720 70 - Physical Exam Head: Positive for: Atraumatic, Normocephalic Pupils: Positive for: PERRL (minimal reactivity, intact corneal reflex), Pinpoint (2mm b/l) Extroacular Muscles: Positive for: EOMI Conjunctiva: Positive for: Normal Mouth: Positive for: Moist Mucous Membranes Pharnyx: Positive for: Other (cough and gag reflex intact) Respiratory/Chest: Positive for: Clear to Auscultation, Good Air Exchange. Negative for: Respiratory Distress, Accessory Muscle Use Cardiovascular: Positive for: Regular Rate and Rhythm, Normal S1, S2. Negative for: Murmurs Abdomen: Positive for: Normal Bowel Sounds. Negative for: Tenderness, Distention, Peritoneal Signs Upper Extremity: Positive for: Normal Inspection. Negative for: Cyanosis, Edema Lower Extremity: Positive for: Normal Inspection. Negative for: Edema Neurological: Positive for: Other (5/5 strength L extremities, minimal 0-1/5 strength R extremities, (-) Babinski B/L, no response to pain right extremities) Skin: Positive for: Warm, Dry, Normal Color. Negative for: Rashes Psychiatric: Positive for: Alert - Medications Active Medications: Active Medications Generic Name Dose Route Start Last Admin Trade Name Freq PRN Reason Stop Dose Admin Acetaminophen 650 mg 10/21/16 20:56 10/22/16 16:53 Tylenol 325mg Tab PO 650 mg Q6 PRN Administration Fever >100.4 F Amlodipine Besylate 10 mg 10/22/16 13:45 10/23/16 09:14 Norvasc PO 10 mg DAILY [facility] Administration Fentanyl 50 mcg 10/22/16 20:04 10/23/16 21:30 Fentanyl IVP 50 mcg Q2 PRN Administration Sedation Moxifloxacin HCl 250 mls @ 167 mls/hr 10/23/16 10:30 10/23/16 12:17 Avelox Iv 400mg/250ml Ns IVPB 167 mls/hr Q24H [facility] Administration Labetalol HCl 400 mg 10/23/16 00:00 10/24/16 06:32 Trandate PO 400 mg Q6 [facility] Administration Lisinopril 20 mg 10/22/16 20:15 10/23/16 09:14 Zestril PO 20 mg DAILY [facility] Administration Pantoprazole Sodium 40 mg 10/23/16 10:00 10/23/16 09:14 Protonix Susp PO 40 mg DAILY [facility] Administration - Patient Studies Lab Studies: Microbiology Studies 10/21/16 16:39 Blood Culture - Preliminary Blood-Venous NO GROWTH AFTER 48 HOURS 10/21/16 16:39 Blood Culture - Preliminary Blood-Venous NO GROWTH AFTER 48 HOURS 10/22/16 Unknown Urine Culture - Final Urine,Dumas No Growth (<1,000 CFU/ML) 10/21/16 16:54 Gram Stain - Final Trachasp Sputum Culture - Final Klebsiella Pneumoniae Ssp Pneu Lab Studies 10/24/16 10/24/16 Range/Units 06:20 04:25 WBC 11.3 H (4.8-10.8) K/uL RBC 4.09 L (4.40-5.90) Mil/uL Hgb 11.0 L (12.0-18.0) g/dL Hct 33.7 L (35.0-51.0) % MCV 82.3 (80.0-94.0) fL MCH 27.0 (27.0-31.0) pg MCHC 32.8 L (33.0-37.0) g/dL RDW 14.6 H (11.5-14.5) % Plt Count 187 (130-400) K/uL MPV 9.3 (7.2-11.7) fL Neut % (Auto) 80.5 H (50.0-75.0) % Lymph % (Auto) 12.6 L (20.0-40.0) % Wolfe % (Auto) 6.4 (0.0-10.0) % Eos % (Auto) 0.2 (0.0-4.0) % Baso % (Auto) 0.3 (0.0-2.0) % Neut # 9.1 H (1.8-7.0) K/uL Lymph # 1.4 (1.0-4.3) K/uL Wolfe # 0.7 (0.0-0.8) K/uL Eos # 0.0 (0.0-0.7) K/uL Baso # 0.0 (0.0-0.2) K/uL Puncture Site Rr pCO2 35 (35-45) mm/Hg pO2 119 H (80-100) mm/Hg HCO3 26.5 (21-28) mmol/L ABG pH 7.47 H (7.35-7.45) ABG Total CO2 26.6 (22-28) mmol/L ABG O2 Saturation 97.7 (95-98) % ABG Base Excess 2.0 (-2.0-3.0) mmol/L ABG Hemoglobin 12.2 (11.7-17.4) g/dL ABG Carboxyhemoglobin 0.3 L (0.5-1.5) % POC ABG HHb (Measured) 2.3 (0.0-5.0) % ABG Methemoglobin 1.1 (0.0-3.0) % Kalyan Test Pos A-a O2 Difference 51.0 mm/Hg Respiratory Index 0.4 Hgb O2 Saturation 96.2 (95.0-98.0) % Mechanical Rate 24 FiO2 30.0 % Tidal Volume 500 PEEP 5 Sodium 150 H (132-148) mmol/L Potassium 3.7 (3.6-5.2) mmol/L Chloride 107 (98-107) mmol/L Carbon Dioxide 29 (22-30) mmol/L Anion Gap 18 (10-20) BUN 34 H (9-20) mg/dL Creatinine 1.3 (0.8-1.5) MG/DL Est GFR ( Amer) > 60 Est GFR (Non-Af Amer) 57 Random Glucose 124 H (75-110) mg/dL Calcium 8.2 L (8.6-10.4) mg/dl Phosphorus 4.6 H (2.5-4.5) mg/dL Magnesium 2.3 (1.6-2.3) mg/dL Total Bilirubin 0.5 (0.2-1.3) mg/dL AST 72 H (17-59) U/L ALT 92 H (21-72) U/L Alkaline Phosphatase 93 (38-126) U/L Total Protein 6.2 L (6.3-8.3) g/dL Albumin 2.7 L (3.5-5.0) g/dL Globulin 3.5 (2.2-3.9) gm/dL Albumin/Globulin Ratio 0.8 L (1.0-2.1) Laboratory Results - last 24 hr 10/24/16 10/24/16 04:25 06:20 WBC 11.3 H RBC 4.09 L Hgb 11.0 L Hct 33.7 L MCV 82.3 MCH 27.0 MCHC 32.8 L RDW 14.6 H Plt Count 187 MPV 9.3 Neut % (Auto) 80.5 H Lymph % (Auto) 12.6 L Wolfe % (Auto) 6.4 Eos % (Auto) 0.2 Baso % (Auto) 0.3 Neut # 9.1 H Lymph # 1.4 Wolfe # 0.7 Eos # 0.0 Baso # 0.0 Puncture Site Rr pCO2 35 pO2 119 H HCO3 26.5 ABG pH 7.47 H ABG Total CO2 26.6 ABG O2 Saturation 97.7 ABG Base Excess 2.0 ABG Hemoglobin 12.2 ABG Carboxyhemoglobin 0.3 L POC ABG HHb (Measured) 2.3 ABG Methemoglobin 1.1 Kalyan Test Pos A-a O2 Difference 51.0 Respiratory Index 0.4 Hgb O2 Saturation 96.2 Mechanical Rate 24 FiO2 30.0 Tidal Volume 500 PEEP 5 Sodium 150 H Potassium 3.7 Chloride 107 Carbon Dioxide 29 Anion Gap 18 BUN 34 H Creatinine 1.3 Est GFR ( Amer) > 60 Est GFR (Non-Af Amer) 57 Random Glucose 124 H Calcium 8.2 L Phosphorus 4.6 H Magnesium 2.3 Total Bilirubin 0.5 AST 72 H ALT 92 H Alkaline Phosphatase 93 Total Protein 6.2 L Albumin 2.7 L Globulin 3.5 Albumin/Globulin Ratio 0.8 L Fingerstick Blood Sugar Results: 139 Review of Systems - Review of Systems All systems: reviewed and no additional remarkable complaints except (as noted in subjective) Critical Care Progress Note - Prophylaxis GI Prophylaxis GI: PPI - Prophylaxis DVT Prophylaxis DVT: SCDs - Nutrition Nutrition: Nutrition Category Date Time Status NPO Diet [DIET] Diets 10/18/16 Breakfast Active Assessment/Plan - Assessment and Plan (Free Text) Assessment: 56 yo M with a past medical history of hypertension with no other past medical history presenting for medical evaluation of intracranial bleed. The patient arrived to the ED intubated for which he still remains intubated. Slow neurological progression noted. Plan: Neuro: Intubated Neurology consult - Dr. Simpson keep head of bed elevated. Maintain MAP at 100. Mannitol 12.5g x 1. DC decadron. Repeat Head CT, EEG with Carotid Dopplers Decrease ICP: Hyperventilate, mannitol 100 g IV x1 Sedation as needed- fetanyl discontinued Ativan 1 mg IV Q6 PRN seizure 10/24 CT Head: litter interval change in the size of left thalamic hemorrhage 2.4x2.9 cm with intraventricular extension of hemorrhage and mild obstructive hydrocephalus. 2 mm midline shift from left to right with no evidence of herniation. Near complete resolution of hemorrhage within 4th ventricle. 10/19 CT Head: little interval change in the known 2.0 x 2.7 acute hematoma in left thalamus with intra ventricular extension of hemorrhage. Interval mild worsening of obstructive hydrocephalus. 10/18 CT Head: Left basal ganglia acute hemorrhage, possibly hypertensive with associated intraventricular hemorrhage and mass effect upon the left lateral aspect of the 3rd ventricle with the tip shift of the 3rd ventricle towards the right side. No generalized midline shift. Air-fluid level in sphenoid sinus common nonspecific. Please correlate for concern regarding acute sinusitis. Mild involutional changes. GCS - 8T (E4 VT M4) FLANDREAU II 15.0, 22% estimated non-operative mortality Cardio: Hypertension TLC left IJ removed due to dual peripheral line access obtained Amlodipine 10 mg PO daily Hydralazine 25 mg PO BID Losartan 100 mg PO daily Labetalol 200 mg PO Q12H Pulm: Intubated: FiO2 30 PEEP 5 Rate 24 TV 500ml ABG: -10/24 pH 7.47, CO2 35, O2 119, HCO3 26.5 -10/23 pH 7.47, CO2 33, O2 66, HCO3 25.5 -10/22 pH 7.52, CO2 33, O2 57, HCO3 28.1 -10/21 pH 7.48, CO2 38, O2 79, HCO3 28.5 -10/20 pH 7.46, CO2 37, O2 187 HCO3 26.9 -10/19 pH 7.46, CO2 38, O2 214, HCO3 27.4 Imaging 10/24 CXR mild venous congestion. Mild right infrahilar prominence 10/23 CXR - Mild venous congestion. right hilar prominence. Biapical pleural thickening upper lobe granulomatous changes. lines and tubes in stable position. 10/22 CXR - Worsening consolidative changes to right mid to lower lung zone. lines and tubes in stable position. 10/20 CXR - Distal tip of an endotracheal tube terminates approximately 4.6 cm above the brisa. Left IJ approach Central venous catheter terminates at expected location of the left innominate vein. Nasogastric tube extends to expected location of the stomach 10/19 CXR New nasogastric tube extends to distal esophagus, above the diaphragm. Repositioning is advised. ET tube unchanged. No infiltrate. 10/18 CXR ET tube proximal to brisa, no acute pulmonary pathology official read pending -f/u AM CXR and ABG Head of bed to 30* Keep O2 Sat >92% GI: Protonix 40 mg IV daily NPO NGT was advanced 10/20 Endo: Maintain euglycemia Accucheck ACHS Novolin R sliding scale low Heme: Intracranial bleed Contraindication for anticoagulation F/u AM CBC No coagulopathy ID: Sputum cx: Klebsiella IV Avelox 250 cc @ 167 cc/hr IVPB Q24H Acetaminophen 650 mg Q6 PRN for fever Renal: Serum Osm 319 using POC glucose of 124 Repeat BMP if serum Osm <310 Hypokalemia repleted MSK: Bed bound PT Eval : I/O Balance- 1783/2330 = -547cc Dumas in place Maintain dumas care Prophylaxis: GI - Protonix 40 mg IVP daily DVT - contraindicated 2/2 to intracranial bleed Pallaitive care consult- F/U
--- NOTE | 2016-10-24 08:20 | PN ---
DATE: 10/23/2016 TIME OF EVALUATION: 7:05 a.m. NEUROLOGICAL PROBLEM: Status post hypertensive left thalamic bleed with intraventricular extension, presenting with obstructive hydrocephalus. PHYSICAL EXAMINATION: VITAL SIGNS: Blood pressure 128/78, mean arterial pressure of 94, respiratory rate 22, temperature 9 9.6 with a pulse rate 91. NEUROLOGIC: The patient is examined in the presence of his family members. He is comatose. On noxi ous stimuli, triple flexion of the left lower extremity, some movement of the left arm noted, partial opening of the eyelid. Verbally not communicable. Good corneal reflexes, disconjugate gaze. Oculo cephalic shows a disconjugate gaze. Gag impaired. Right-sided hemiplegia. CONCLUSION: Global encephalopathy, secondary to intraventricular bleed from left thalamic hypertensi ve bleed. The patient remains the same as my previous exam. RECOMMENDATIONS: The patient should have a CT of the head tomorrow and EEG to be done to assess any paroxysmal activities of the brain. Enoc Simpson MD cc: [id number] TT: 10/23/2016 14:30:15 Confirmation # [id number] Dictation # [id number]
--- NOTE | 2016-10-24 09:04 | CP.PCM.PN ---
Subjective - Date & Time of Evaluation Date of Evaluation: 10/24/16 Time of Evaluation: 08:30 - Subjective Subjective: Overall situation appears to be poor. Family not present at this moment He was able to open eyes very briefly for me and there is some minmal movments with the toes. He has just returned from the 4th CT imaging of the brain, the report is still pending at this time however it looks as if the area of hemmorage around the left basal ganglia could be getting worse with blood in the left and also the right ventricles. Systolic BPs mostly 140s and 150s. Objective - Vital Signs/Intake and Output Vital Signs (last 24 hours): Temp Pulse Resp BP Pulse Ox 100.1 F H 68 24 161/91 H 96 10/24/16 04:00 10/24/16 07:00 10/24/16 07:00 10/24/16 07:00 10/24/16 07:00 Intake and Output: 10/24/16 10/24/16 06:59 18:59 Intake Total 600 50 Output Total 1170 70 Balance -570 -20 - Medications Medications: Current Medications Acetaminophen (Tylenol 325mg Tab) 650 mg PO Q6 PRN PRN Reason: Fever >100.4 F Last Admin: 10/22/16 16:53 Dose: 650 mg Amlodipine Besylate (Norvasc) 10 mg PO DAILY [facility] Last Admin: 10/23/16 09:14 Dose: 10 mg Fentanyl (Fentanyl) 50 mcg IVP Q2 PRN PRN Reason: Sedation Last Admin: 10/23/16 21:30 Dose: 50 mcg Moxifloxacin HCl (Avelox Iv 400mg/250ml Ns) 250 mls @ 167 mls/hr IVPB Q24H [facility] Last Admin: 10/23/16 12:17 Dose: 167 mls/hr Labetalol HCl (Trandate) 400 mg PO Q6 [facility] Last Admin: 10/24/16 06:32 Dose: 400 mg Lisinopril (Zestril) 20 mg PO DAILY [facility] Last Admin: 10/23/16 09:14 Dose: 20 mg Pantoprazole Sodium (Protonix Susp) 40 mg PO DAILY [facility] Last Admin: 10/23/16 09:14 Dose: 40 mg - Labs Labs: 10/24/16 06:20 10/24/16 06:20 PT 11.7 SECONDS (9.7-12.2) 10/21/16 06:11 INR 1.0 10/21/16 06:11 APTT 29 SECONDS (21-34) 10/21/16 06:11 - Constitutional Appears: Chronically Ill - Head Exam Additional comments: Intubated and Only able to open eyes briefly - Eye Exam Eye Exam: absent: EOMI, Normal appearance, PERRL Pupil Exam: absent: NORMAL ACCOMODATION - ENT Exam ENT Exam: Mucous Membranes Moist - Respiratory Exam Respiratory Exam: Decreased Breath Sounds Additional comments: Mechanical respirations - Cardiovascular Exam Cardiovascular Exam: REGULAR RHYTHM - GI/Abdominal Exam GI & Abdominal Exam: Soft. absent: Tenderness - Neurological Exam Neurological Exam: Altered. absent: Alert, Awake, CN II-XII Intact, Normal Gait , Oriented x3 Neuro motor strength exam: Left Upper Extremity: 0, Right Upper Extremity: 0, Left Lower Extremity: 0, Right Lower Extremity: 0 Additional comments: When I saw this morning the extent of response was able to open and close eyes. - Skin Skin Exam: Warm Assessment and Plan - Assessment and Plan (Free Text) Assessment: This is a 56 yo male who is currently intubated. He was brought to the ER intubated and sedated and found to have a lefth thalamic area bleeding. According to the family there is a history of HTN and Polycythemia Vera. (1) CVA / Left basal ganglia hemorrhage 10/24: Unfourtunately it appears prognosis is worsening signifigantly. There is left basal ganglia bleeding with edema, dilation of ventricles. Blood pressure is more stable now. On Lisinopril and also Fenanyl IV 10/22: Patient went for 3rd CT scan of the head today. Pending the results. The imaging from 10/20 suggested 2.6 x 2.4 area left thalamic subacute hematoma and edema. They also noted a midline shift at that time. It did not look signifigantly changed from the first CT. Patient has been recivieng mannitol as well as keppra IV. (2) Hypertensive emergency 10/24: Labatelol was also added. Still on lisinopril and fentanyl 10/22: At this moment on norvasc and lisinopril. Systolic BPs have been in the 130s and 140s. Was recently on nicardipene drip, now off and on PO meds. 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 The patient's family explain that their mother and uncle require removal of excess blood in the past. (4) Pneumonia / Leukocytosis 10/24: WBC decreased, however still has elevated temperaures. Tmax 100.4 10/22: WBC decreased, on Avelox. Tmax today 100.4, yesterday was higher 102. Cultures were taken yesterday. (5) Altered mental status 10/22: This morning was intubated and not responding to voice calling or commands. Per previous notes there is some documentation of movement of the extremities. (6) Prophylactic measures 10/22: Protonix, avoid Heparin or Lovenox due to bleeding
--- NOTE | 2016-10-24 09:12 | CT ---
PROCEDURE: CT HEAD WITHOUT CONTRAST. HISTORY: follow up for bleed and assess hydrocephalus COMPARISON: 10/22/2016 TECHNIQUE: Axial computed tomography images were obtained through the head/brain without intravenous contrast. Radiation dose: Total exam DLP = 981.84 mGy-cm. FINDINGS: HEMORRHAGE: Given differences in slice selection, there is no significant interval change in size of the left thalamic hemorrhage which now measures 2.4 x 2.9 cm (transverse x anterior posterior). There is redemonstration of intraventricular extension of hemorrhage with blood in the left frontal horn, 3rd ventricle and layering in the occipital horns of the lateral ventricles. BRAIN: There is 2 mm midline shift from left to right. There is no evidence of herniation. There is near complete resolution of hemorrhage within the 4th ventricle. There is persistent mild obstructive hydrocephalus and periventricular edema. The there is no extra-axial fluid collection. VENTRICLES: Persistent mild obstructive hydrocephalus. CALVARIUM: Unremarkable. PARANASAL SINUSES: There are fluid levels in the sphenoid sinus and moderate mucosal thickening in the ethmoid air cells. MASTOID AIR CELLS: Predominantly clear. OTHER FINDINGS: None. IMPRESSION: Little interval change in the size of left thalamic hemorrhage which now measures 2.4 x 2.9 cm with intraventricular extension of hemorrhage and mild obstructive hydrocephalus. 2 mm midline shift from left to right. No evidence of herniation. Interval near complete resolution of hemorrhage within the 4th ventricle.
--- NOTE | 2016-10-24 09:22 | RAD ---
HISTORY: ett COMPARISON: 10/23/2016 FINDINGS: LUNGS: Apparent interval removal of a catheter device projecting over the right heart. Other lines and tubes in stable position. Mild venous congestion. Mild right infrahilar prominence. PLEURA: No significant pleural effusion identified, no pneumothorax apparent. CARDIOVASCULAR: Normal. OSSEOUS STRUCTURES: No significant abnormalities. VISUALIZED UPPER ABDOMEN: Normal. OTHER FINDINGS: None. IMPRESSION: Apparent interval removal of a catheter device projecting over the right heart. Other lines and tubes in stable position. Mild venous congestion. Mild right infrahilar prominence.
[2016-10-24] MEDS: Moxifloxacin IV 400mg/250ml NS 250 ML IVPB SCH (09:55)
[2016-10-24] MEDS: Pantoprazole 40 mg Susp UD PO SCH (10:12)
[2016-10-25 04:35] LABS: ABG ALLEN TEST POS; ABG MECHANICAL RATE 24; ARTERIAL BLOOD HGB O2 SAT 96.7 % (95.0-98.0); ATERIAL BLOOD GAS PEEP 5; CARBOXYHEMOGLOBIN 0.7 % (0.5-1.5); DRAW SITE RR; HHB 1.8 % (0.0-5.0); METHEMOGLOBIN 0.8 % (0.0-3.0)
[2016-10-25 06:22] LABS: BASO % 0.1 % (0.0-2.0); EOS % 0.2 % (0.0-4.0); HEMATOCRIT 35.9 % (35.0-51.0); LYMPH # 1.6 K/uL (1.0-4.3); LYMPH % 13.3 % (20.0-40.0); MEAN CELL VOLUME 82.2 fL (80.0-94.0); MEAN CORPUSCULAR HEMOGLOBIN 26.4 pg (27.0-31.0); MEAN CORPUSCULAR HGB CONC 32.1 g/dL (33.0-37.0); MEAN PLATELET VOLUME 9.5 fL (7.2-11.7); MONO % 8.3 % (0.0-10.0); RED CELL DISTRIBUTION WIDTH 14.5 % (11.5-14.5); WHITE BLOOD COUNT 12.2 K/uL (4.8-10.8)
[2016-10-25 06:29] LABS: CHLORIDE 108 mmol/L (98-107); POTASSIUM 3.8 mmol/L (3.6-5.2); SODIUM 148 mmol/L (132-148)
[2016-10-25 06:31] LABS: AST/SGOT 79 U/L (17-59); BILIRUBIN,TOTAL 0.4 mg/dL (0.2-1.3); CARBON DIOXIDE 25 mmol/L (22-30); GFR AFRICAN-AMERICAN > 60
[2016-10-25 06:32] LABS: ALB/GLOB RATIO 0.9 (1.0-2.1); ALKALINE PHOSPHATASE 117 U/L (38-126); ALT/SGPT 98 U/L (21-72); BLOOD UREA NITROGEN 35 mg/dL (9-20); GLUCOSE,RANDOM 109 mg/dL (75-110); MAGNESIUM 2.3 mg/dL (1.6-2.3); PHOSPHOROUS 4.5 mg/dL (2.5-4.5); TOTAL PROTEIN 6.4 g/dL (6.3-8.3)
--- NOTE | 2016-10-25 08:40 | RAD ---
HISTORY: intubated COMPARISON: 10/24/2016 FINDINGS: LUNGS: Lines and tubes are in stable position. No focal infiltrate or effusion. Mild right hilar prominence. Overlapping external devices limit evaluation of the right lung apex. PLEURA: No significant pleural effusion identified, no pneumothorax apparent. CARDIOVASCULAR: Normal. OSSEOUS STRUCTURES: No significant abnormalities. VISUALIZED UPPER ABDOMEN: Normal. OTHER FINDINGS: None. IMPRESSION: Lines and tubes are in stable position. No focal infiltrate or effusion. Mild right hilar prominence. Overlapping external devices limit evaluation of the right lung apex.
[2016-10-25] MEDS: Pantoprazole 40 mg Susp UD PO SCH (09:51)
[2016-10-25] MEDS: Moxifloxacin IV 400mg/250ml NS 250 ML IVPB SCH (09:52)
--- NOTE | 2016-10-25 10:14 | CP.PCM.PN ---
Subjective - Date & Time of Evaluation Date of Evaluation: 10/25/16 Time of Evaluation: 10:00 - Subjective Subjective: Remains mehcaically intubated Today patient was opening and closing his eyes. He was able to look to me when name was called. He was able to move his toes Was not able to grasp my hand. Not able to move arms or legs when I saw him. Yesterday underwent the forth head CT. It suggest that the patient there was little change in the sie of the left thalamic hemmorage - 2.4 and 2.9/ also noted there is mild hydrocephalus as well. And also a midline shift from left to right. Family member present U expained to family thier question s and concers, Prognosis for a meaningful recoverk appears really low. Objective - Vital Signs/Intake and Output Vital Signs (last 24 hours): Temp Pulse Resp BP Pulse Ox 100.0 F H 83 24 140/88 99 10/25/16 08:00 10/25/16 09:00 10/25/16 09:00 10/25/16 08:46 10/25/16 09:00 Intake and Output: 10/25/16 10/25/16 06:59 18:59 Intake Total 750 200 Output Total 700 250 Balance 50 -50 - Medications Medications: Current Medications Acetaminophen (Tylenol 325mg Tab) 650 mg PO Q6 PRN PRN Reason: Fever >100.4 F Last Admin: 10/25/16 05:45 Dose: 650 mg Amlodipine Besylate (Norvasc) 10 mg PO DAILY [facility] Last Admin: 10/25/16 09:51 Dose: 10 mg Hydralazine HCl (Apresoline) 25 mg PO BID [facility] Last Admin: 10/25/16 09:52 Dose: 25 mg Moxifloxacin HCl (Avelox Iv 400mg/250ml Ns) 250 mls @ 167 mls/hr IVPB Q24H [facility] Last Admin: 10/25/16 09:52 Dose: 167 mls/hr Labetalol HCl (Trandate) 200 mg PO Q12 [facility] Last Admin: 10/25/16 09:51 Dose: 200 mg Losartan Potassium (Cozaar) 100 mg PO DAILY [facility] Last Admin: 10/25/16 09:52 Dose: 100 mg Pantoprazole Sodium (Protonix Susp) 40 mg PO DAILY [facility] Last Admin: 10/25/16 09:51 Dose: 40 mg - Labs Labs: 10/25/16 06:08 10/25/16 06:08 PT 11.7 SECONDS (9.7-12.2) 10/21/16 06:11 INR 1.0 10/21/16 06:11 APTT 29 SECONDS (21-34) 10/21/16 06:11 - Constitutional Appears: Confused, Cachectic, Chronically Ill - Head Exam Additional comments: Intubated - ENT Exam ENT Exam: Mucous Membranes Moist - Respiratory Exam Respiratory Exam: Decreased Breath Sounds, Rhonchi - Cardiovascular Exam Cardiovascular Exam: REGULAR RHYTHM - GI/Abdominal Exam GI & Abdominal Exam: Soft, Normal Bowel Sounds - Back Exam Back Exam: NORMAL INSPECTION - Neurological Exam Neuro motor strength exam: Left Upper Extremity: 0, Right Upper Extremity: 0, Left Lower Extremity: 2/1, Right Lower Extremity: 2/1 - Psychiatric Exam Psychiatric exam: Depressed, Flat Affect - Skin Skin Exam: Pallor Assessment and Plan - Assessment and Plan (Free Text) Assessment: This is a 56 yo male who is currently intubated. He was brought to the ER intubated and sedated and found to have a lefth thalamic area bleeding. According to the family there is a history of HTN and Polycythemia Vera. (1) CVA / Left basal ganglia hemorrhage 10/25: Today seemed more awake alert. I discussed this family at [facility] 10/24: Unfourtunately it appears prognosis is worsening signifigantly. There is left basal ganglia bleeding with edema, dilation of ventricles. Blood pressure is more stable now. On Lisinopril and also Fenanyl IV 10/22: Patient went for 3rd CT scan of the head today. Pending the results. The imaging from 10/20 suggested 2.6 x 2.4 area left thalamic subacute hematoma and edema. They also noted a midline shift at that time. It did not look signifigantly changed from the first CT. Patient has been recivieng mannitol as well as keppra IV. (2) Hypertensive emergency 10/25 Better npow/ 10/24: Labatelol was also added. Still on lisinopril and fentanyl 10/22: At this moment on norvasc and lisinopril. Systolic BPs have been in the 130s and 140s. Was recently on nicardipene drip, now off and on PO meds. 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 The patient's family explain that their mother and uncle require removal of excess blood in the past. (4) Pneumonia / Leukocytosis 10/24: WBC decreased, however still has elevated temperaures. Tmax 100.4 10/22: WBC decreased, on Avelox. Tmax today 100.4, yesterday was higher 102. Cultures were taken yesterday. (5) Altered mental status 10/22: This morning was intubated and not responding to voice calling or commands. Per previous notes there is some documentation of movement of the extremities. (6) Prophylactic measures 10/22: Protonix, avoid Heparin or Lovenox due to bleeding
--- NOTE | 2016-10-25 14:50 | CARD ---
APPROVED REPORT EKG Measurement Heart [id number] <Conclusion> Poor data quality, interpretation may be adversely affected Suspect arm lead reversal, interpretation assumes no reversal Sinus tachycardia Right axis deviation Voltage criteria for left ventricular hypertrophy ST & T wave abnormality, consider lateral ischemia Abnormal ECG
--- NOTE | 2016-10-25 17:21 | CP.CCUPN ---
<Serg Ledbetter - Last Filed: 10/25/16 17:23> CCU Subjective - Physician Review Subjective (Free Text): 10/24/16 21:01 Patient seen and examined at bedside. The patient appears to be in no acute distress with no noteworthy events per nursing. The patient had a fever over the weekend. Sputum cultures were positive for Klebsiella. Patient is on IV Avelox. The patient is intubated (FiO2 30 PEEP 5 RATE 24 TV 500ml, Peak 24). Patient is able to open eyes spontaneously and track with his eyes. Patient has weak movement with his left upper and lower extremities. Digits on left foot has spastic movements. Patient has minimal movement of right extremities and reacts to painful stimuli. Patient unable to comply wth ROS at this time due to clinical status. 10/25/16 17:23 Patient seen and examined at bedside in no acute distress. Tamara were no noteworthy events per nursing. Patient has nonpurposeful movements in his left upper and lower extremities. Digits on left foot has spastic movements. Patient has minimal movement of right extremities and occasionally reacts to painful stimuli. Patient unable to comply with ROS at this time due to clinical status. Critical Care Time Spent (in minutes): 45 CCU Objective - Vital Signs / Intake & Output Vital Signs (Last 4 hours): Vital Signs Temp Pulse Resp BP Pulse Ox 10/25/16 16:54 82 24 149/86 100 10/25/16 16:33 92 H 19 100 10/25/16 16:00 100.7 F H 84 24 100 10/25/16 15:47 81 24 151/93 H 100 10/25/16 15:04 80 25 H 100 10/25/16 15:00 79 24 100 10/25/16 14:46 80 24 136/82 100 10/25/16 14:00 82 24 100 10/25/16 13:46 83 24 128/84 100 10/25/16 13:24 82 24 100 Intake and Output (Last 8hrs): Intake & Output 10/25/16 10/25/16 10/25/16 06:59 14:59 22:59 Intake Total 450 900 180 Output Total 550 680 270 Balance -100 220 -90 Weight 169 lb 8 oz Intake: Intake, IV Amount 250 0 Right Forearm 250 0 Oral 250 30 Tube Feeding 400 400 150 Other 50 Output: Urine 550 680 270 Urethral (Dumas) 550 680 270 Other: # Bowel Movements 0 0 - Physical Exam Physical Exam Limitations: Positive for: Clinical Condition Head: Positive for: Atraumatic, Normocephalic Pupils: Positive for: PERRL (minimal reactivity, intact corneal reflex) Extroacular Muscles: Positive for: EOMI Conjunctiva: Positive for: Normal Ears: Positive for: Normal Mouth: Positive for: Moist Mucous Membranes Pharnyx: Positive for: Other (cough and gag reflex intact) Nose (External): Positive for: Atraumatic Respiratory/Chest: Positive for: Clear to Auscultation, Good Air Exchange. Negative for: Respiratory Distress, Accessory Muscle Use Cardiovascular: Positive for: Regular Rate and Rhythm, Normal S1, S2. Negative for: Murmurs Abdomen: Positive for: Normal Bowel Sounds. Negative for: Tenderness, Distention, Peritoneal Signs Upper Extremity: Positive for: Normal Inspection. Negative for: Cyanosis, Edema Lower Extremity: Positive for: Normal Inspection. Negative for: Edema Neurological: Positive for: Other (minimal 0-1/5 strength R extremities, (-) Babinski B/L, no response to pain right extremities; some response in left extremitied. left sided respones are nonpurposeful and increased in comparison to the right side) Skin: Positive for: Warm, Dry, Normal Color. Negative for: Rashes Psychiatric: Positive for: Alert - Medications Active Medications: Active Medications Generic Name Dose Route Start Last Admin Trade Name Freq PRN Reason Stop Dose Admin Acetaminophen 650 mg 10/21/16 20:56 10/25/16 11:51 Tylenol 325mg Tab PO 650 mg Q6 PRN Administration Fever >100.4 F Amlodipine Besylate 10 mg 10/22/16 13:45 10/25/16 09:51 Norvasc PO 10 mg DAILY OMAR Administration Hydralazine HCl 25 mg 10/24/16 10:00 10/25/16 09:52 Apresoline PO 25 mg BID OMAR Administration Moxifloxacin HCl 250 mls @ 167 mls/hr 10/23/16 10:30 10/25/16 09:52 Avelox Iv 400mg/250ml Ns IVPB 167 mls/hr Q24H OMRA Administration Labetalol HCl 200 mg 10/24/16 10:00 10/25/16 09:51 Trandate PO 200 mg Q12 OMAR Administration Losartan Potassium 100 mg 10/24/16 10:00 10/25/16 09:52 Cozaar PO 100 mg DAILY OMAR Administration Pantoprazole Sodium 40 mg 10/23/16 10:00 10/25/16 09:51 Protonix Susp PO 40 mg DAILY OMAR Administration - Patient Studies Lab Studies: Microbiology Studies 10/21/16 16:39 Blood Culture - Preliminary Blood-Venous NO GROWTH AFTER 3 DAYS 10/21/16 16:39 Blood Culture - Preliminary Blood-Venous NO GROWTH AFTER 3 DAYS Lab Studies 10/25/16 10/25/16 Range/Units 06:08 04:25 WBC 12.2 H (4.8-10.8) K/uL RBC 4.36 L (4.40-5.90) Mil/uL Hgb 11.5 L (12.0-18.0) g/dL Hct 35.9 (35.0-51.0) % MCV 82.2 (80.0-94.0) fL MCH 26.4 L (27.0-31.0) pg MCHC 32.1 L (33.0-37.0) g/dL RDW 14.5 (11.5-14.5) % Plt Count 227 (130-400) K/uL MPV 9.5 (7.2-11.7) fL Neut % (Auto) 78.1 H (50.0-75.0) % Lymph % (Auto) 13.3 L (20.0-40.0) % [place] % (Auto) 8.3 (0.0-10.0) % Eos % (Auto) 0.2 (0.0-4.0) % Baso % (Auto) 0.1 (0.0-2.0) % Neut # 9.5 H (1.8-7.0) K/uL Lymph # 1.6 (1.0-4.3) K/uL [place] # 1.0 H (0.0-0.8) K/uL Eos # 0.0 (0.0-0.7) K/uL Baso # 0.0 (0.0-0.2) K/uL Puncture Site Rr pCO2 36 (35-45) mm/Hg pO2 113 H (80-100) mm/Hg HCO3 27.0 (21-28) mmol/L ABG pH 7.47 H (7.35-7.45) ABG Total CO2 27.3 (22-28) mmol/L ABG O2 Saturation 98.2 H (95-98) % ABG Base Excess 2.7 (-2.0-3.0) mmol/L ABG Hemoglobin 14.7 (11.7-17.4) g/dL ABG Carboxyhemoglobin 0.7 (0.5-1.5) % POC ABG HHb (Measured) 1.8 (0.0-5.0) % ABG Methemoglobin 0.8 (0.0-3.0) % Kalyan Test Pos A-a O2 Difference 56.0 mm/Hg Respiratory Index 0.5 Hgb O2 Saturation 96.7 (95.0-98.0) % Mechanical Rate 24 FiO2 30.0 % Tidal Volume 500 PEEP 5 Sodium 148 (132-148) mmol/L Potassium 3.8 (3.6-5.2) mmol/L Chloride 108 H (98-107) mmol/L Carbon Dioxide 25 (22-30) mmol/L Anion Gap 19 (10-20) BUN 35 H (9-20) mg/dL Creatinine 1.4 (0.8-1.5) MG/DL Est GFR ( Amer) > 60 Est GFR (Non-Af Amer) 52 Random Glucose 109 (75-110) mg/dL Calcium 8.0 L (8.6-10.4) mg/dl Phosphorus 4.5 (2.5-4.5) mg/dL Magnesium 2.3 (1.6-2.3) mg/dL Total Bilirubin 0.4 (0.2-1.3) mg/dL AST 79 H (17-59) U/L ALT 98 H (21-72) U/L Alkaline Phosphatase 117 (38-126) U/L Total Protein 6.4 (6.3-8.3) g/dL Albumin 3.0 L (3.5-5.0) g/dL Globulin 3.3 (2.2-3.9) gm/dL Albumin/Globulin Ratio 0.9 L (1.0-2.1) Laboratory Results - last 24 hr 10/25/16 10/25/16 04:25 06:08 WBC 12.2 H RBC 4.36 L Hgb 11.5 L Hct 35.9 MCV 82.2 MCH 26.4 L MCHC 32.1 L RDW 14.5 Plt Count 227 MPV 9.5 Neut % (Auto) 78.1 H Lymph % (Auto) 13.3 L [place] % (Auto) 8.3 Eos % (Auto) 0.2 Baso % (Auto) 0.1 Neut # 9.5 H Lymph # 1.6 [place] # 1.0 H Eos # 0.0 Baso # 0.0 Puncture Site Rr pCO2 36 pO2 113 H HCO3 27.0 ABG pH 7.47 H ABG Total CO2 27.3 ABG O2 Saturation 98.2 H ABG Base Excess 2.7 ABG Hemoglobin 14.7 ABG Carboxyhemoglobin 0.7 POC ABG HHb (Measured) 1.8 ABG Methemoglobin 0.8 Kalyan Test Pos A-a O2 Difference 56.0 Respiratory Index 0.5 Hgb O2 Saturation 96.7 Mechanical Rate 24 FiO2 30.0 Tidal Volume 500 PEEP 5 Sodium 148 Potassium 3.8 Chloride 108 H Carbon Dioxide 25 Anion Gap 19 BUN 35 H Creatinine 1.4 Est GFR ( Amer) > 60 Est GFR (Non-Af Amer) 52 Random Glucose 109 Calcium 8.0 L Phosphorus 4.5 Magnesium 2.3 Total Bilirubin 0.4 AST 79 H ALT 98 H Alkaline Phosphatase 117 Total Protein 6.4 Albumin 3.0 L Globulin 3.3 Albumin/Globulin Ratio 0.9 L Fingerstick Blood Sugar Results: 139 Review of Systems - Review of Systems Review of Systems: as noted in subjective Critical Care Progress Note - Prophylaxis GI Prophylaxis GI: PPI - Nutrition Nutrition: Nutrition Category Date Time Status NPO Diet [DIET] Diets 10/18/16 Breakfast Active Assessment/Plan - Assessment and Plan (Free Text) Assessment: 56 yo M with a past medical history of hypertension with no other past medical history presenting for medical evaluation of intracranial bleed. The patient arrived to the ED intubated for which he still remains intubated. Slow neurological progression noted. Plan: Neuro: Intubated Neurology consult - Dr. Simpson keep head of bed elevated. Maintain MAP at 100. Mannitol 12.5g x 1. DC decadron. Repeat Head CT, EEG with Carotid Dopplers Decrease ICP: Hyperventilate, mannitol 100 g IV x1 Sedation as needed- fetanyl discontinued Ativan 1 mg IV Q6 PRN seizure 3/13 CT Head: litter interval change in the size of left thalamic hemorrhage 2.4x2.9 cm with intraventricular extension of hemorrhage and mild obstructive hydrocephalus. 2 mm midline shift from left to right with no evidence of herniation. Near complete resolution of hemorrhage within 4th ventricle. 10/19 CT Head: little interval change in the known 2.0 x 2.7 acute hematoma in left thalamus with intra ventricular extension of hemorrhage. Interval mild worsening of obstructive hydrocephalus. 10/18 CT Head: Left basal ganglia acute hemorrhage, possibly hypertensive with associated intraventricular hemorrhage and mass effect upon the left lateral aspect of the 3rd ventricle with the tip shift of the 3rd ventricle towards the right side. No generalized midline shift. Air-fluid level in sphenoid sinus common nonspecific. Please correlate for concern regarding acute sinusitis. Mild involutional changes. GCS - 8T (E4 VT M4) [place]QUI II 15.0, 22% estimated non-operative mortality Cardio: Hypertension TLC left IJ removed due to dual peripheral line access obtained Amlodipine 10 mg PO daily Hydralazine 25 mg PO BID Losartan 100 mg PO daily Labetalol 200 mg PO Q12H Pulm: Intubated: FiO2 30 PEEP 5 Rate 24 TV 500ml ABG: -10/25 pH 7.47, CO2 36, O2 113, HCO3 27 -10/24 pH 7.47, CO2 35, O2 119, HCO3 26.5 Imaging 10/25 CXR lines and tubes are stable. No focal infiltrates or effusions noted; mild hilar prominence; overlapping structures limit evaluation of right lung apex 10/24 CXR mild venous congestion. Mild right infrahilar prominence -f/u AM CXR and ABG Head of bed to 30* Keep O2 Sat >92% GI: Protonix 40 mg IV daily NPO NGT was advanced 10/20 Endo: Maintain euglycemia Accucheck ACHS Novolin R sliding scale low Heme: Intracranial bleed Contraindication for anticoagulation F/u AM CBC No coagulopathy ID: Sputum cx: Klebsiella IV Avelox 250 cc IVPB Q24H Acetaminophen 650 mg Q6 PRN for fever Renal: Serum Osm 319 using POC glucose of 124 Repeat BMP if serum Osm <310 MSK: Bed bound- Turn Q2 H PT Eval indicated : I/O Balance- stable Dumas in place Maintain dumas care Prophylaxis: GI - Protonix 40 mg IVP daily DVT - contraindicated 09/15 to intracranial bleed Palliative care consult- F/U Planning: Will discuss need for possible Tracheostomy and PEG placement with family <Mathew Bailey - Last Filed: 10/25/16 18:25> CCU Objective - Vital Signs / Intake & Output Vital Signs (Last 4 hours): Vital Signs Temp Pulse Resp BP Pulse Ox 10/25/16 18:00 80 24 100 10/25/16 17:46 76 15 150/84 100 10/25/16 17:40 99.7 F H 100 10/25/16 17:39 81 25 H 100 10/25/16 17:00 85 24 100 10/25/16 16:54 82 24 149/86 100 10/25/16 16:33 92 H 19 100 10/25/16 16:00 100.7 F H 84 24 100 10/25/16 15:47 81 24 151/93 H 100 10/25/16 15:04 80 25 H 100 10/25/16 15:00 79 24 100 10/25/16 14:46 80 24 136/82 100 Intake and Output (Last 8hrs): Intake & Output 10/25/16 10/25/16 10/25/16 06:59 14:59 22:59 Intake Total 450 900 230 Output Total 550 680 350 Balance -100 220 -120 Weight 169 lb 8 oz Intake: Intake, IV Amount 250 0 Right Forearm 250 0 Oral 250 30 Tube Feeding 400 400 200 Other 50 Output: Urine 550 680 350 Urethral ([place]) 550 680 350 Other: # Bowel Movements 0 0 - Medications Active Medications: Active Medications Generic Name Dose Route Start Last Admin Trade Name Freq PRN Reason Stop Dose Admin Acetaminophen 650 mg 10/21/16 20:56 10/25/16 11:51 Tylenol 325mg Tab PO 650 mg Q6 PRN Administration Fever >100.4 F Amlodipine Besylate 10 mg 10/22/16 13:45 10/25/16 09:51 Norvasc PO 10 mg DAILY OMAR Administration Hydralazine HCl 25 mg 10/24/16 10:00 10/25/16 17:44 Apresoline PO 25 mg BID OMAR Administration Moxifloxacin HCl 250 mls @ 167 mls/hr 10/23/16 10:30 10/25/16 09:52 Avelox Iv 400mg/250ml Ns IVPB 167 mls/hr Q24H OMAR Administration Labetalol HCl 200 mg 10/24/16 10:00 10/25/16 09:51 Trandate PO 200 mg Q12 OMAR Administration Losartan Potassium 100 mg 10/24/16 10:00 10/25/16 09:52 Cozaar PO 100 mg DAILY OMAR Administration Pantoprazole Sodium 40 mg 10/23/16 10:00 10/25/16 09:51 Protonix Susp PO 40 mg DAILY OMRA Administration - Patient Studies Lab Studies: Microbiology Studies 10/21/16 16:39 Blood Culture - Preliminary Blood-Venous NO GROWTH AFTER 4 DAYS 10/21/16 16:39 Blood Culture - Preliminary Blood-Venous NO GROWTH AFTER 4 DAYS Lab Studies 10/25/16 10/25/16 Range/Units 06:08 04:25 WBC 12.2 H (4.8-10.8) K/uL RBC 4.36 L (4.40-5.90) Mil/uL Hgb 11.5 L (12.0-18.0) g/dL Hct 35.9 (35.0-51.0) % MCV 82.2 (80.0-94.0) fL MCH 26.4 L (27.0-31.0) pg MCHC 32.1 L (33.0-37.0) g/dL RDW 14.5 (11.5-14.5) % Plt Count 227 (130-400) K/uL MPV 9.5 (7.2-11.7) fL Neut % (Auto) 78.1 H (50.0-75.0) % Lymph % (Auto) 13.3 L (20.0-40.0) % [place] % (Auto) 8.3 (0.0-10.0) % Eos % (Auto) 0.2 (0.0-4.0) % Baso % (Auto) 0.1 (0.0-2.0) % Neut # 9.5 H (1.8-7.0) K/uL Lymph # 1.6 (1.0-4.3) K/uL [place] # 1.0 H (0.0-0.8) K/uL Eos # 0.0 (0.0-0.7) K/uL Baso # 0.0 (0.0-0.2) K/uL Puncture Site Rr pCO2 36 (35-45) mm/Hg pO2 113 H (80-100) mm/Hg HCO3 27.0 (21-28) mmol/L ABG pH 7.47 H (7.35-7.45) ABG Total CO2 27.3 (22-28) mmol/L ABG O2 Saturation 98.2 H (95-98) % ABG Base Excess 2.7 (-2.0-3.0) mmol/L ABG Hemoglobin 14.7 (11.7-17.4) g/dL ABG Carboxyhemoglobin 0.7 (0.5-1.5) % POC ABG HHb (Measured) 1.8 (0.0-5.0) % ABG Methemoglobin 0.8 (0.0-3.0) % Kalyan Test Pos A-a O2 Difference 56.0 mm/Hg Respiratory Index 0.5 Hgb O2 Saturation 96.7 (95.0-98.0) % Mechanical Rate 24 FiO2 30.0 % Tidal Volume 500 PEEP 5 Sodium 148 (132-148) mmol/L Potassium 3.8 (3.6-5.2) mmol/L Chloride 108 H (98-107) mmol/L Carbon Dioxide 25 (22-30) mmol/L Anion Gap 19 (10-20) BUN 35 H (9-20) mg/dL Creatinine 1.4 (0.8-1.5) MG/DL Est GFR ( Amer) > 60 Est GFR (Non-Af Amer) 52 Random Glucose 109 (75-110) mg/dL Calcium 8.0 L (8.6-10.4) mg/dl Phosphorus 4.5 (2.5-4.5) mg/dL Magnesium 2.3 (1.6-2.3) mg/dL Total Bilirubin 0.4 (0.2-1.3) mg/dL AST 79 H (17-59) U/L ALT 98 H (21-72) U/L Alkaline Phosphatase 117 (38-126) U/L Total Protein 6.4 (6.3-8.3) g/dL Albumin 3.0 L (3.5-5.0) g/dL Globulin 3.3 (2.2-3.9) gm/dL Albumin/Globulin Ratio 0.9 L (1.0-2.1) Laboratory Results - last 24 hr 10/25/16 10/25/16 04:25 06:08 WBC 12.2 H RBC 4.36 L Hgb 11.5 L Hct 35.9 MCV 82.2 MCH 26.4 L MCHC 32.1 L RDW 14.5 Plt Count 227 MPV 9.5 Neut % (Auto) 78.1 H Lymph % (Auto) 13.3 L [place] % (Auto) 8.3 Eos % (Auto) 0.2 Baso % (Auto) 0.1 Neut # 9.5 H Lymph # 1.6 [place] # 1.0 H Eos # 0.0 Baso # 0.0 Puncture Site Rr pCO2 36 pO2 113 H HCO3 27.0 ABG pH 7.47 H ABG Total CO2 27.3 ABG O2 Saturation 98.2 H ABG Base Excess 2.7 ABG Hemoglobin 14.7 ABG Carboxyhemoglobin 0.7 POC ABG HHb (Measured) 1.8 ABG Methemoglobin 0.8 [place]alyan Test Pos A-a O2 Difference 56.0 Respiratory Index 0.5 Hgb O2 Saturation 96.7 Mechanical Rate 24 FiO2 30.0 Tidal Volume 500 PEEP 5 Sodium 148 Potassium 3.8 Chloride 108 H Carbon Dioxide 25 Anion Gap 19 BUN 35 H Creatinine 1.4 Est GFR ( Amer) > 60 Est GFR (Non-Af Amer) 52 Random Glucose 109 Calcium 8.0 L Phosphorus 4.5 Magnesium 2.3 Total Bilirubin 0.4 AST 79 H ALT 98 H Alkaline Phosphatase 117 Total Protein 6.4 Albumin 3.0 L Globulin 3.3 Albumin/Globulin Ratio 0.9 L Critical Care Progress Note - Nutrition Nutrition: Nutrition Category Date Time Status NPO Diet [DIET] Diets 10/18/16 Breakfast Active Attending/Attestation - Attestation I have personally seen and examined this patient.: Yes I have fully participated in the care of the patient.: Yes I have reviewed all pertinent clinical information: Yes Notes (Text): 10/25/16 18:24 Patient seen and examined in the intensive care unit. Patient has nonpurposeful movement of the extremities Awaiting family decision for terminal extubation versus trach and PEG
[2016-10-26 05:42] LABS: ABG ALLEN TEST POS; ABG MECHANICAL RATE 24; ARTERIAL BLOOD HGB O2 SAT 96.9 % (95.0-98.0); ATERIAL BLOOD GAS PEEP 5; DRAW SITE RR; HHB 1.6 % (0.0-5.0); METHEMOGLOBIN 0.5 % (0.0-3.0)
[2016-10-26 06:20] LABS: BASO % 0.2 % (0.0-2.0); EOS # 0.1 K/uL (0.0-0.7); EOS % 0.4 % (0.0-4.0); HEMATOCRIT 39.8 % (35.0-51.0); LYMPH # 1.7 K/uL (1.0-4.3); LYMPH % 13.6 % (20.0-40.0); MEAN CELL VOLUME 84.2 fL (80.0-94.0); MEAN CORPUSCULAR HEMOGLOBIN 26.6 pg (27.0-31.0); MEAN CORPUSCULAR HGB CONC 31.6 g/dL (33.0-37.0); MEAN PLATELET VOLUME 9.8 fL (7.2-11.7); MONO % 7.7 % (0.0-10.0); NRBC % 0.1 % (0.0-2.0); RED CELL DISTRIBUTION WIDTH 14.3 % (11.5-14.5); WHITE BLOOD COUNT 12.8 K/uL (4.8-10.8)
[2016-10-26 06:25] LABS: CHLORIDE 108 mmol/L (98-107); POTASSIUM 4.2 mmol/L (3.6-5.2); SODIUM 148 mmol/L (132-148)
[2016-10-26 06:27] LABS: BILIRUBIN,TOTAL 0.5 mg/dL (0.2-1.3); GFR AFRICAN-AMERICAN > 60
[2016-10-26 06:28] LABS: ALB/GLOB RATIO 0.8 (1.0-2.1); ALKALINE PHOSPHATASE 134 U/L (38-126); ALT/SGPT 113 U/L (21-72); AST/SGOT 70 U/L (17-59); BLOOD UREA NITROGEN 34 mg/dL (9-20); CALCIUM 8.3 mg/dl (8.6-10.4); CARBON DIOXIDE 26 mmol/L (22-30); GLUCOSE,RANDOM 104 mg/dL (75-110); PHOSPHOROUS 4.7 mg/dL (2.5-4.5); TOTAL PROTEIN 6.9 g/dL (6.3-8.3)
[2016-10-26 06:29] LABS: MAGNESIUM 2.6 mg/dL (1.6-2.3)
--- NOTE | 2016-10-26 07:54 | PN ---
DATE: 10/26/2016 TIME OF EVALUATION: 7:25 a.m. NEUROLOGICAL PROBLEM: Post hypertensive intracerebral and intraventricular bleed. PHYSICAL EXAMINATION: VITAL SIGNS: Blood pressure 161/94, mean arterial pressure 107, respiratory rate 18, temperature afe brile. NEUROLOGIC: The patient is verbally arousable, looking at person on calling. Visual cue is present. Some response noted on his left side. Spontaneous movement of the left lower extremity in response to sequential stockings. Recent CAT scan did not show any progression of his internal bleed as well as intraventricular hemorr nakia. At this point, patient attained maximum response from neuro point of view from this admission. For t he continuation to keep his nutritional status as well as avoiding infectious process, the patient sh ould be treated with a PEG as well as tracheostomy. Following this, the patient can be moved to the floor and rehabilitation. No antiplatelets for next 4-6 weeks. Blood pressure should be maintained to keep the mean arterial pressure around 100. Enoc Simpson MD cc: [id number] TT: 10/26/2016 07:53:30 Confirmation # [id number] Dictation # [id number] samuel
--- NOTE | 2016-10-26 08:55 | RAD ---
HISTORY: intubated COMPARISON: 10/25/2016 FINDINGS: LUNGS: Lines and tubes in stable position. Mild venous congestion. Right hilar prominence. PLEURA: No significant pleural effusion identified, no pneumothorax apparent. CARDIOVASCULAR: Normal. OSSEOUS STRUCTURES: No significant abnormalities. VISUALIZED UPPER ABDOMEN: Normal. OTHER FINDINGS: None. IMPRESSION: Lines and tubes in stable position. Mild venous congestion. Right hilar prominence.
--- NOTE | 2016-10-26 09:06 | EEG ---
DATE: 10/24/2016 This is a 16-channel electroencephalogram of obtunded adult on vent. The study was performed at the bedside in the unit. The resting electroencephalogram consists of diffuse 30-40 microvolt theta activities mixed with 3-4 Hz delta activities noted diffusely in bilateral cortical leads. This frequency of activity is josé miguel nuously noted from the beginning to the end without any paroxysmal activities. IMPRESSION: This is an abnormal electroencephalogram because of persistent slow activity throughout the record suggestive of bilateral cerebral dysfunction. This is probably secondary to metabolic vas cular degenerative process. This could be postictal phenomenon also, please correlate clinically. This is an abnormal electroencephalogram because of persistent slowing throughout the record suggesti ve of bilateral cerebral dysfunction. During the study, neither electroencephalographic paroxysmal a ctivities nor focal slowing noted. Enoc Simpson MD cc: [id number] TT: 10/26/2016 07:10:06 Confirmation # [id number] Dictation # [id number] tn
[2016-10-26] MEDS: Pantoprazole 40 mg Susp UD PO SCH (09:49)
[2016-10-26] MEDS: Moxifloxacin IV 400mg/250ml NS 250 ML IVPB SCH (09:49)
[2016-10-26] MEDS ORDERED: Sodium Chloride 0.9% 500 ML IV ONE (12:06)
--- NOTE | 2016-10-26 13:13 | CP.PCM.CON ---
History of Present Illness - History of Present Illness History of Present Illness: PGY-1 note for General Surgery, Dr. Almonte Pt is a 56 year old male with unknown PMHx, and no PSHx, who [place] in by EMS [place] Pt arrived to ED intubated and sedated. CT showed left basal ganglia hemorrhage. He has required mechanical ventilation and sedation since admission. ICU believes pt will will require mechanical ventilation for an extended period. Current vent settings: FiO2 30, PEEP 5, Rate 24, TV 500ml. Surgery was consulted to place tracheostomy. ROS unobtainable at this time due to pts clinical status. PMHx: family denies PSHx: none Social Hx: recent immigrant from [place]; Works for [employer]; but currently Allergies: No known allergies Review of Systems - Review of Systems Systems not reviewed;Unavailable: Altered Mental Status, Intubated Past Patient History - Infectious Disease Hx of Infectious Diseases: None - Past Medical History & Family History Past Medical History?: No - Past Social History Smoking Status: Former Smoker - CARDIAC Hx Cardiac Disorders: Yes Hx Hypertension: Yes - PULMONARY Hx Respiratory Disorders: Yes - NEUROLOGICAL Hx Neurological Disorder: Yes - HEENT Hx HEENT Problems: Yes - RENAL Hx Chronic Kidney Disease: Yes - ENDOCRINE/METABOLIC Hx Endocrine Disorders: Yes - HEMATOLOGICAL/ONCOLOGICAL Hx Blood Disorders: Yes - INTEGUMENTARY Hx Dermatological Problems: Yes - MUSCULOSKELETAL/RHEUMATOLOGICAL Hx Arthritis: Yes - GASTROINTESTINAL Hx Gastrointestinal Disorders: Yes - GENITOURINARY/GYNECOLOGICAL Hx Genitourinary Disorders: Yes - PSYCHIATRIC Hx Psychophysiologic Disorder: Yes Hx Substance Use: No - SURGICAL HISTORY Hx Surgeries: No - ANESTHESIA Hx Anesthesia: No Meds Allergies/Adverse Reactions: Allergies Allergy/AdvReac Type Severity Reaction Status Date / Time No Known Allergies Allergy Verified 10/18/16 15:57 - Medications Medications: Current Medications Acetaminophen (Tylenol 325mg Tab) 650 mg PO Q6 PRN PRN Reason: Fever >100.4 F Last Admin: 10/25/16 20:06 Dose: 650 mg Amlodipine Besylate (Norvasc) 10 mg PO DAILY [facility] Last Admin: 10/26/16 09:49 Dose: 10 mg Hydralazine HCl (Apresoline) 25 mg PO BID OMAR Last Admin: 10/26/16 09:49 Dose: 25 mg Moxifloxacin HCl (Avelox Iv 400mg/250ml Ns) 250 mls @ 167 mls/hr IVPB Q24H [facility] Last Admin: 10/26/16 09:49 Dose: 167 mls/hr Labetalol HCl (Trandate) 200 mg PO Q12 [facility] Last Admin: 10/26/16 09:49 Dose: 200 mg Losartan Potassium (Cozaar) 100 mg PO DAILY [facility] Last Admin: 10/26/16 12:16 Dose: Not Given Pantoprazole Sodium (Protonix Susp) 40 mg PO DAILY [facility] Last Admin: 10/26/16 09:49 Dose: 40 mg Physical Exam - Head Exam Head Exam: ATRAUMATIC, NORMOCEPHALIC - Eye Exam Eye Exam: EOMI, PERRL (minimal reactivity) - ENT Exam ENT Exam: Mucous Membranes Moist - Respiratory Exam Respiratory Exam: Clear to Auscultation Bilateral. absent: Respiratory Distress - Cardiovascular Exam Cardiovascular Exam: REGULAR RHYTHM, +S1, +S2. absent: Systolic Murmur - GI/Abdominal Exam GI & Abdominal Exam: Soft. absent: Tenderness - Extremities Exam Extremities exam: Positive for: normal inspection, pedal pulses present. Negative for: pedal edema - Neurological Exam Additional comments: Minimal response to noxious stimuli. Left sided response non-purposeful movements. Negative babinski b/l. - Skin Skin Exam: Normal Color, Warm Results - Vital Signs Recent Vital Signs: Last Vital Signs Temp 99.0 F 10/26/16 12:00 Pulse 85 10/26/16 10:55 Resp 8 L 10/26/16 10:55 BP 112/64 10/26/16 10:55 Pulse Ox 100 10/26/16 10:55 - Labs Result Diagrams: 10/26/16 06:08 10/26/16 06:08 Labs: Laboratory Results - last 24 hr 10/26/16 10/26/16 05:25 06:08 WBC 12.8 H RBC 4.73 Hgb 12.6 Hct 39.8 MCV 84.2 D MCH 26.6 L MCHC 31.6 L RDW 14.3 Plt Count 212 MPV 9.8 Neut % (Auto) 78.1 H Lymph % (Auto) 13.6 L [place] % (Auto) 7.7 Eos % (Auto) 0.4 Baso % (Auto) 0.2 Neut # 10.0 H Lymph # 1.7 [place] # 1.0 H Eos # 0.1 Baso # 0.0 Puncture Site Rr pCO2 32 L pO2 92 HCO3 26.6 ABG pH 7.50 H ABG Total CO2 26.0 ABG O2 Saturation 98.4 H ABG Base Excess 2.2 ABG Hemoglobin 12.0 ABG Carboxyhemoglobin 1.0 POC ABG HHb (Measured) 1.6 ABG Methemoglobin 0.5 Kalyan Test Pos A-a O2 Difference 82.0 Respiratory Index 0.9 Hgb O2 Saturation 96.9 Mechanical Rate 24 FiO2 30.0 Tidal Volume 500 PEEP 5 Sodium 148 Potassium 4.2 Chloride 108 H Carbon Dioxide 26 Anion Gap 18 BUN 34 H Creatinine 1.3 Est GFR ( Amer) > 60 Est GFR (Non-Af Amer) 57 Random Glucose 104 Calcium 8.3 L Phosphorus 4.7 H Magnesium 2.6 H Total Bilirubin 0.5 AST 70 H ALT 113 H Alkaline Phosphatase 134 H Total Protein 6.9 Albumin 3.1 L Globulin 3.8 Albumin/Globulin Ratio 0.8 L Assessment & Plan - Assessment and Plan (Free Text) Assessment: 56yo male with intracranial bleed. Extended mechanical ventilation necessary. Plan: Tracheostomy tentatively scheduled for Monday, provided family consents to procedure. Dr. Almonte will discuss with daughter tomorrow. Continue management per ICU. d/w Dr. Almonte
--- NOTE | 2016-10-26 14:50 | CP.PCM.PN ---
Subjective - Date & Time of Evaluation Date of Evaluation: 10/26/16 Time of Evaluation: 02:50 - Subjective Subjective: dictated Objective - Vital Signs/Intake and Output Vital Signs (last 24 hours): Temp Pulse Resp BP Pulse Ox 99.0 F 81 12 105/70 100 10/26/16 12:00 10/26/16 13:00 10/26/16 13:00 10/26/16 11:58 10/26/16 13:00 Intake and Output: 10/26/16 10/26/16 06:59 18:59 Intake Total 650 500 Output Total 1125 475 Balance -475 25 - Medications Medications: Current Medications Acetaminophen (Tylenol 325mg Tab) 650 mg PO Q6 PRN PRN Reason: Fever >100.4 F Last Admin: 10/25/16 20:06 Dose: 650 mg Amlodipine Besylate (Norvasc) 10 mg PO DAILY [facility] Last Admin: 10/26/16 09:49 Dose: 10 mg Hydralazine HCl (Apresoline) 25 mg PO BID [facility] Last Admin: 10/26/16 09:49 Dose: 25 mg Moxifloxacin HCl (Avelox Iv 400mg/250ml Ns) 250 mls @ 167 mls/hr IVPB Q24H [facility] Last Admin: 10/26/16 09:49 Dose: 167 mls/hr Labetalol HCl (Trandate) 200 mg PO Q12 [facility] Last Admin: 10/26/16 09:49 Dose: 200 mg Losartan Potassium (Cozaar) 100 mg PO DAILY [facility] Last Admin: 10/26/16 12:16 Dose: Not Given Pantoprazole Sodium (Protonix Susp) 40 mg PO DAILY [facility] Last Admin: 10/26/16 09:49 Dose: 40 mg - Labs Labs: 10/26/16 06:08 10/26/16 06:08 PT 11.7 SECONDS (9.7-12.2) 10/21/16 06:11 INR 1.0 10/21/16 06:11 APTT 29 SECONDS (21-34) 10/21/16 06:11
--- NOTE | 2016-10-26 16:31 | CP.PCM.CON ---
<Pallavi Cerda - Last Filed: 10/26/16 17:11> History of Present Illness - History of Present Illness History of Present Illness: Gastroenterology Fellow/PGY4 Consult Note 56 year old male with prior medical history of hypertension presenting after being found down and intubated by EMS in the field. History obtained by record review and ICU team requesting GI consultation for PEG placement evaluation. Patient was in usual state of health around 10-11AM on date of presentation as witnessed by daughter. Patient was later found unresponsive, intubated in the filed by EMS, then leading to ER presentation. 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 Ongoing medical management of hypertensive emergency currently improved and requiring IVF bolus for episode of hypotension per nursing at bedside. Family- unknown, patient intubated Social-unknown, patient intubated Surgery-unknown, patient intubated Review of Systems - Review of Systems Systems not reviewed;Unavailable: Altered Mental Status, Intubated Past Patient History - Infectious Disease Hx of Infectious Diseases: None - Past Medical History & Family History Past Medical History?: No - Past Social History Smoking Status: Former Smoker - CARDIAC Hx Cardiac Disorders: Yes Hx Hypertension: Yes - PULMONARY Hx Respiratory Disorders: Yes - NEUROLOGICAL Hx Neurological Disorder: Yes - HEENT Hx HEENT Problems: Yes - RENAL Hx Chronic Kidney Disease: Yes - ENDOCRINE/METABOLIC Hx Endocrine Disorders: Yes - HEMATOLOGICAL/ONCOLOGICAL Hx Blood Disorders: Yes - INTEGUMENTARY Hx Dermatological Problems: Yes - MUSCULOSKELETAL/RHEUMATOLOGICAL Hx Arthritis: Yes - GASTROINTESTINAL Hx Gastrointestinal Disorders: Yes - GENITOURINARY/GYNECOLOGICAL Hx Genitourinary Disorders: Yes - PSYCHIATRIC Hx Psychophysiologic Disorder: Yes Hx Substance Use: No - SURGICAL HISTORY Hx Surgeries: No - ANESTHESIA Hx Anesthesia: No Meds Allergies/Adverse Reactions: Allergies Allergy/AdvReac Type Severity Reaction Status Date / Time No Known Allergies Allergy Verified 10/18/16 15:57 - Medications Medications: Current Medications Acetaminophen (Tylenol 325mg Tab) 650 mg PO Q6 PRN PRN Reason: Fever >100.4 F Last Admin: 10/25/16 20:06 Dose: 650 mg Amlodipine Besylate (Norvasc) 10 mg PO DAILY [facility] Last Admin: 10/26/16 09:49 Dose: 10 mg Hydralazine HCl (Apresoline) 25 mg PO BID [facility] Last Admin: 10/26/16 09:49 Dose: 25 mg Moxifloxacin HCl (Avelox Iv 400mg/250ml Ns) 250 mls @ 167 mls/hr IVPB Q24H [facility] Last Admin: 10/26/16 09:49 Dose: 167 mls/hr Labetalol HCl (Trandate) 200 mg PO Q12 [facility] Last Admin: 10/26/16 09:49 Dose: 200 mg Losartan Potassium (Cozaar) 100 mg PO DAILY [facility] Last Admin: 10/26/16 12:16 Dose: Not Given Pantoprazole Sodium (Protonix Susp) 40 mg PO DAILY [facility] Last Admin: 10/26/16 09:49 Dose: 40 mg Physical Exam - Constitutional Appears: Chronically Ill, Other - Head Exam Head Exam: ATRAUMATIC, NORMOCEPHALIC - Eye Exam Eye Exam: EOMI, PERRL Pupil Exam: PERRL. absent: Miosis, Mydriatic - ENT Exam ENT Exam: Mucous Membranes Dry, Normal Oropharynx - Neck Exam Neck exam: Positive for: Normal Inspection - Respiratory Exam Respiratory Exam: Clear to Auscultation Bilateral. absent: Rales, Rhonchi, Wheezes - Cardiovascular Exam Cardiovascular Exam: RRR, +S1, +S2. absent: Gallop, Rubs - GI/Abdominal Exam GI & Abdominal Exam: Normal Bowel Sounds, Soft. absent: Distended, Firm, Guarding, Organomegaly, Rebound, Rigid, Tenderness - Extremities Exam Extremities exam: Positive for: normal inspection. Negative for: pedal edema - Neurological Exam Additional comments: intubated, PERRL, equivocal Right Babinski, downgoing left Babinski - Skin Skin Exam: Dry, Intact, Normal Color, Warm Results - Vital Signs Recent Vital Signs: Last Vital Signs Temp 99.0 F 10/26/16 12:00 Pulse 81 10/26/16 13:00 Resp 12 10/26/16 13:00 BP 105/70 10/26/16 11:58 Pulse Ox 100 10/26/16 13:00 - Labs Result Diagrams: 10/26/16 06:08 10/26/16 06:08 Labs: Laboratory Results - last 24 hr 10/26/16 10/26/16 05:25 06:08 WBC 12.8 H RBC 4.73 Hgb 12.6 Hct 39.8 MCV 84.2 D MCH 26.6 L MCHC 31.6 L RDW 14.3 Plt Count 212 MPV 9.8 Neut % (Auto) 78.1 H Lymph % (Auto) 13.6 L [place] % (Auto) 7.7 Eos % (Auto) 0.4 Baso % (Auto) 0.2 Neut # 10.0 H Lymph # 1.7 [place] # 1.0 H Eos # 0.1 Baso # 0.0 Puncture Site Rr pCO2 32 L pO2 92 HCO3 26.6 ABG pH 7.50 H ABG Total CO2 26.0 ABG O2 Saturation 98.4 H ABG Base Excess 2.2 ABG Hemoglobin 12.0 ABG Carboxyhemoglobin 1.0 POC ABG HHb (Measured) 1.6 ABG Methemoglobin 0.5 [place] Test Pos A-a O2 Difference 82.0 Respiratory Index 0.9 Hgb O2 Saturation 96.9 Mechanical Rate 24 FiO2 30.0 Tidal Volume 500 PEEP 5 Sodium 148 Potassium 4.2 Chloride 108 H Carbon Dioxide 26 Anion Gap 18 BUN 34 H Creatinine 1.3 Est GFR ( Amer) > 60 Est GFR (Non-Af Amer) 57 Random Glucose 104 Calcium 8.3 L Phosphorus 4.7 H Magnesium 2.6 H Total Bilirubin 0.5 AST 70 H ALT 113 H Alkaline Phosphatase 134 H Total Protein 6.9 Albumin 3.1 L Globulin 3.8 Albumin/Globulin Ratio 0.8 L Assessment & Plan - Assessment and Plan (Free Text) Assessment: 56 year old male with prior medical history of hypertension presenting after being found down and intubated by EMS in the field. History obtained by record review and ICU team requesting GI consultation for PEG placement evaluation. 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 >would be able to perform procedure or Monday if family agrees to proceed with PEG placement >will make further recommendations based on clinical course <Geo Farfan Y - Last Filed: 10/26/16 17:31> Meds - Medications Medications: Current Medications Acetaminophen (Tylenol 325mg Tab) 650 mg PO Q6 PRN PRN Reason: Fever >100.4 F Last Admin: 10/25/16 20:06 Dose: 650 mg Amlodipine Besylate (Norvasc) 10 mg PO DAILY [facility] Last Admin: 10/26/16 09:49 Dose: 10 mg Hydralazine HCl (Apresoline) 25 mg PO BID [facility] Last Admin: 10/26/16 09:49 Dose: 25 mg Moxifloxacin HCl (Avelox Iv 400mg/250ml Ns) 250 mls @ 167 mls/hr IVPB Q24H [facility] Last Admin: 10/26/16 09:49 Dose: 167 mls/hr Labetalol HCl (Trandate) 200 mg PO Q12 [facility] Last Admin: 10/26/16 09:49 Dose: 200 mg Losartan Potassium (Cozaar) 100 mg PO DAILY [facility] Last Admin: 10/26/16 12:16 Dose: Not Given Pantoprazole Sodium (Protonix Susp) 40 mg PO DAILY [facility] Last Admin: 10/26/16 09:49 Dose: 40 mg Results - Vital Signs Recent Vital Signs: Last Vital Signs Temp 99.0 F 10/26/16 12:00 Pulse 81 10/26/16 13:00 Resp 12 10/26/16 13:00 BP 105/70 10/26/16 11:58 Pulse Ox 100 10/26/16 13:00 - Labs Result Diagrams: 10/26/16 06:08 10/26/16 06:08 Labs: Laboratory Results - last 24 hr 10/26/16 10/26/16 05:25 06:08 WBC 12.8 H RBC 4.73 Hgb 12.6 Hct 39.8 MCV 84.2 D MCH 26.6 L MCHC 31.6 L RDW 14.3 Plt Count 212 MPV 9.8 Neut % (Auto) 78.1 H Lymph % (Auto) 13.6 L [place] % (Auto) 7.7 Eos % (Auto) 0.4 Baso % (Auto) 0.2 Neut # 10.0 H Lymph # 1.7 [place] # 1.0 H Eos # 0.1 Baso # 0.0 Puncture Site Rr pCO2 32 L pO2 92 HCO3 26.6 ABG pH 7.50 H ABG Total CO2 26.0 ABG O2 Saturation 98.4 H ABG Base Excess 2.2 ABG Hemoglobin 12.0 ABG Carboxyhemoglobin 1.0 POC ABG HHb (Measured) 1.6 ABG Methemoglobin 0.5 [place] Test Pos A-a O2 Difference 82.0 Respiratory Index 0.9 Hgb O2 Saturation 96.9 Mechanical Rate 24 FiO2 30.0 Tidal Volume 500 PEEP 5 Sodium 148 Potassium 4.2 Chloride 108 H Carbon Dioxide 26 Anion Gap 18 BUN 34 H Creatinine 1.3 Est GFR ( Amer) > 60 Est GFR (Non-Af Amer) 57 Random Glucose 104 Calcium 8.3 L Phosphorus 4.7 H Magnesium 2.6 H Total Bilirubin 0.5 AST 70 H ALT 113 H Alkaline Phosphatase 134 H Total Protein 6.9 Albumin 3.1 L Globulin 3.8 Albumin/Globulin Ratio 0.8 L Attending/Attestation - Attestation I have personally seen and examined this patient.: Yes I have fully participated in the care of the patient.: Yes I have reviewed all pertinent clinical information: Yes Notes (Text): 10/26/16 17:22 I have seen and examined patient with GI fellow. Agree with above documentation with the following additions. In brief, this is a 56 year old male with history of HTN who was brought to the hospital after being found unresponsive by daughter. Workup in hospital revealed large hemorrhagic CVA, patient currently intubated in intensive care unit. GI called for evaluation of gastrostomy placement. Patient is unable to provide additional information given change in mental status, additional history obtained via chart review, discussion with nursing staff, and discussion with patient's who is at bedside. Prior to hemorrhagic event, there was no reported abdominal pain, nausea, vomiting, diarrhea, fever/chills, weight loss, or change in bowel habits. Unknown prior endoscopic history. Additional physical examination: Psych: unable to assess HTN Change in mental status, acute hemorrhagic CVA - Discussion regarding potential PEG placement held with patient's and nursing staff at bedside. Risks/benefits of potential procedure were explained to them in detail and she understands and agrees with treatment plan. She will discuss with her family members and inform the GI team regarding decision to proceed with feeding tube placement. - Surgical consultation has been called for tracheostomy placement - Continue with blood pressure management as per critical care team - Follow up neurology recommendations - Continue with OGT feeding as tolerated - Will continue to monitor patient clinical course - Overall patient prognosis is poor
--- NOTE | 2016-10-26 17:27 | CP.CCUPN ---
<Serg Ledbetter - Last Filed: 10/26/16 17:21> CCU Subjective - Physician Review Subjective (Free Text): 10/24/16 21:01 Patient seen and examined at bedside. The patient appears to be in no acute distress with no noteworthy events per nursing. The patient had a fever over the weekend. Sputum cultures were positive for Klebsiella. Patient is on IV Avelox. The patient is intubated (FiO2 30 PEEP 5 RATE 24 TV 500ml, Peak 24). Patient is able to open eyes spontaneously and track with his eyes. Patient has weak movement with his left upper and lower extremities. Digits on left foot has spastic movements. Patient has minimal movement of right extremities and reacts to painful stimuli. Patient unable to comply wth ROS at this time due to clinical status. 10/25/16 17:23 Patient seen and examined at bedside in no acute distress. There were no noteworthy events per nursing. Patient has nonpurposeful movements in his left upper and lower extremities. Digits on left foot has spastic movements. Patient has minimal movement of right extremities and occasionally reacts to painful stimuli. Patient unable to comply with ROS at this time due to clinical status. 10/26/16 17:21 Patient seen and examined bedside in no acute distress. The patient is intubated (FiO2 30 PEEP 5 RATE 24 TV 500ml, Peak 24). Patient opens eyes spontaneously. Patient has weak movement with his left upper and lower extremities. Digits on left foot has spastic movements. Patient has minimal movement of right extremities and reacts to painful stimuli. Patient unable to comply with ROS at this time due to clinical status. CCU Objective - Vital Signs / Intake & Output Intake and Output (Last 8hrs): Intake & Output 10/26/16 10/26/16 10/26/16 06:59 14:59 22:59 Intake Total 400 500 Output Total 770 475 Balance -370 25 Weight 145 lb 3 oz Intake: Intake, IV Amount 250 Right Forearm 250 Tube Feeding 400 250 Output: Urine 770 475 Urethral (Dumas) 770 475 - Physical Exam Head: Positive for: Atraumatic, Normocephalic Pupils: Positive for: PERRL (minimal reactivity, intact corneal reflex) Extroacular Muscles: Positive for: EOMI Conjunctiva: Positive for: Normal Ears: Positive for: Normal Mouth: Positive for: Moist Mucous Membranes Pharnyx: Positive for: Other (cough and gag reflex intact) Nose (External): Positive for: Atraumatic Respiratory/Chest: Positive for: Clear to Auscultation, Good Air Exchange. Negative for: Respiratory Distress, Accessory Muscle Use Cardiovascular: Positive for: Regular Rate and Rhythm, Normal S1, S2. Negative for: Murmurs Abdomen: Positive for: Normal Bowel Sounds. Negative for: Tenderness, Distention, Peritoneal Signs Upper Extremity: Positive for: Normal Inspection. Negative for: Cyanosis, Edema Lower Extremity: Positive for: Normal Inspection. Negative for: Edema Neurological: Positive for: Other (minimal 0-1/5 strength R extremities, (-) Babinski B/L, no response to pain right extremities; some response in left extremitied. left sided respones are nonpurposeful and increased in comparison to the right side) Skin: Positive for: Warm, Dry, Normal Color. Negative for: Rashes Psychiatric: Positive for: Alert - Medications Active Medications: Active Medications Generic Name Dose Route Start Last Admin Trade Name Freq PRN Reason Stop Dose Admin Acetaminophen 650 mg 10/21/16 20:56 10/25/16 20:06 Tylenol 325mg Tab PO 650 mg Q6 PRN Administration Fever >100.4 F Amlodipine Besylate 10 mg 10/22/16 13:45 10/26/16 09:49 Norvasc PO 10 mg DAILY OMAR Administration Hydralazine HCl 25 mg 10/24/16 10:00 10/26/16 09:49 Apresoline PO 25 mg BID OMAR Administration Moxifloxacin HCl 250 mls @ 167 mls/hr 10/23/16 10:30 10/26/16 09:49 Avelox Iv 400mg/250ml Ns IVPB 167 mls/hr Q24H OMAR Administration Labetalol HCl 200 mg 10/24/16 10:00 10/26/16 09:49 Trandate PO 200 mg Q12 OMAR Administration Losartan Potassium 100 mg 10/24/16 10:00 10/26/16 12:16 Cozaar PO Not Given DAILY OMAR Pantoprazole Sodium 40 mg 10/23/16 10:00 10/26/16 09:49 Protonix Susp PO 40 mg DAILY OMAR Administration - Patient Studies Lab Studies: Microbiology Studies 10/25/16 16:07 Urine Culture - Final Urine,Dumas No Growth (<1,000 CFU/ML) 10/25/16 16:07 Gram Stain - Final Trachasp Sputum Culture - Preliminary Gram Negative Jesus Gram Negative Jesus#2 10/21/16 16:39 Blood Culture - Preliminary Blood-Venous NO GROWTH AFTER 4 DAYS 10/21/16 16:39 Blood Culture - Preliminary Blood-Venous NO GROWTH AFTER 4 DAYS Lab Studies 10/26/16 10/26/16 Range/Units 06:08 05:25 WBC 12.8 H (4.8-10.8) K/uL RBC 4.73 (4.40-5.90) Mil/uL Hgb 12.6 (12.0-18.0) g/dL Hct 39.8 (35.0-51.0) % MCV 84.2 D (80.0-94.0) fL MCH 26.6 L (27.0-31.0) pg MCHC 31.6 L (33.0-37.0) g/dL RDW 14.3 (11.5-14.5) % Plt Count 212 (130-400) K/uL MPV 9.8 (7.2-11.7) fL Neut % (Auto) 78.1 H (50.0-75.0) % Lymph % (Auto) 13.6 L (20.0-40.0) % Nye % (Auto) 7.7 (0.0-10.0) % Eos % (Auto) 0.4 (0.0-4.0) % Baso % (Auto) 0.2 (0.0-2.0) % Neut # 10.0 H (1.8-7.0) K/uL Lymph # 1.7 (1.0-4.3) K/uL Nye # 1.0 H (0.0-0.8) K/uL Eos # 0.1 (0.0-0.7) K/uL Baso # 0.0 (0.0-0.2) K/uL Puncture Site Rr pCO2 32 L (35-45) mm/Hg pO2 92 (80-100) mm/Hg HCO3 26.6 (21-28) mmol/L ABG pH 7.50 H (7.35-7.45) ABG Total CO2 26.0 (22-28) mmol/L ABG O2 Saturation 98.4 H (95-98) % ABG Base Excess 2.2 (-2.0-3.0) mmol/L ABG Hemoglobin 12.0 (11.7-17.4) g/dL ABG Carboxyhemoglobin 1.0 (0.5-1.5) % POC ABG HHb (Measured) 1.6 (0.0-5.0) % ABG Methemoglobin 0.5 (0.0-3.0) % Kalyan Test Pos A-a O2 Difference 82.0 mm/Hg Respiratory Index 0.9 Hgb O2 Saturation 96.9 (95.0-98.0) % Mechanical Rate 24 FiO2 30.0 % Tidal Volume 500 PEEP 5 Sodium 148 (132-148) mmol/L Potassium 4.2 (3.6-5.2) mmol/L Chloride 108 H (98-107) mmol/L Carbon Dioxide 26 (22-30) mmol/L Anion Gap 18 (10-20) BUN 34 H (9-20) mg/dL Creatinine 1.3 (0.8-1.5) MG/DL Est GFR ( Amer) > 60 Est GFR (Non-Af Amer) 57 Random Glucose 104 (75-110) mg/dL Calcium 8.3 L (8.6-10.4) mg/dl Phosphorus 4.7 H (2.5-4.5) mg/dL Magnesium 2.6 H (1.6-2.3) mg/dL Total Bilirubin 0.5 (0.2-1.3) mg/dL AST 70 H (17-59) U/L ALT 113 H (21-72) U/L Alkaline Phosphatase 134 H (38-126) U/L Total Protein 6.9 (6.3-8.3) g/dL Albumin 3.1 L (3.5-5.0) g/dL Globulin 3.8 (2.2-3.9) gm/dL Albumin/Globulin Ratio 0.8 L (1.0-2.1) Laboratory Results - last 24 hr 10/26/16 10/26/16 05:25 06:08 WBC 12.8 H RBC 4.73 Hgb 12.6 Hct 39.8 MCV 84.2 D MCH 26.6 L MCHC 31.6 L RDW 14.3 Plt Count 212 MPV 9.8 Neut % (Auto) 78.1 H Lymph % (Auto) 13.6 L Nye % (Auto) 7.7 Eos % (Auto) 0.4 Baso % (Auto) 0.2 Neut # 10.0 H Lymph # 1.7 Nye # 1.0 H Eos # 0.1 Baso # 0.0 Puncture Site Rr pCO2 32 L pO2 92 HCO3 26.6 ABG pH 7.50 H ABG Total CO2 26.0 ABG O2 Saturation 98.4 H ABG Base Excess 2.2 ABG Hemoglobin 12.0 ABG Carboxyhemoglobin 1.0 POC ABG HHb (Measured) 1.6 ABG Methemoglobin 0.5 Kalyan Test Pos A-a O2 Difference 82.0 Respiratory Index 0.9 Hgb O2 Saturation 96.9 Mechanical Rate 24 FiO2 30.0 Tidal Volume 500 PEEP 5 Sodium 148 Potassium 4.2 Chloride 108 H Carbon Dioxide 26 Anion Gap 18 BUN 34 H Creatinine 1.3 Est GFR ( Amer) > 60 Est GFR (Non-Af Amer) 57 Random Glucose 104 Calcium 8.3 L Phosphorus 4.7 H Magnesium 2.6 H Total Bilirubin 0.5 AST 70 H ALT 113 H Alkaline Phosphatase 134 H Total Protein 6.9 Albumin 3.1 L Globulin 3.8 Albumin/Globulin Ratio 0.8 L Fingerstick Blood Sugar Results: 139 Review of Systems - Review of Systems Review of Systems: as noted in subjective Critical Care Progress Note - Nutrition Nutrition: Nutrition Category Date Time Status NPO Diet [DIET] Diets 10/18/16 Breakfast Active Assessment/Plan - Assessment and Plan (Free Text) Assessment: This is a 56 yo M with a past medical history of hypertension and no known other past medical history presenting for medical evaluation of intracranial bleed. The patient arrived to the ED intubated. Patient remains intubated with unchanged clinical status. Planning for trach and PEG discussed with family; however awaiting final decision. Plan: Neuro: Intubated Neurology consult - Dr. Simpson advise to schedule trach and PEG- waiting on family decision. Hold antiplatelets for 4-6 weeks and maintain blood pressure above 100 systolic. Sedation as needed 10/24 CT Head: little interval change in the size of left thalamic hemorrhage 2.4x2.9 cm with intraventricular extension of hemorrhage and mild obstructive hydrocephalus. 2 mm midline shift from left to right with no evidence of herniation. Near complete resolution of hemorrhage within 4th ventricle. 10/19 CT Head: little interval change in the known 2.0 x 2.7 acute hematoma in left thalamus with intra ventricular extension of hemorrhage. Interval mild worsening of obstructive hydrocephalus. 10/18 CT Head: Left basal ganglia acute hemorrhage, possibly hypertensive with associated intraventricular hemorrhage and mass effect upon the left lateral aspect of the 3rd ventricle with the tip shift of the 3rd ventricle towards the right side. No generalized midline shift. Air-fluid level in sphenoid sinus common nonspecific. Please correlate for concern regarding acute sinusitis. Mild involutional changes. GCS - 8T (E4 VT M4) ZUNI II 12.0, 12% estimated non-operative mortality Cardio: Hypotensive earlier- Held hydralazine dose for evening. Monitor overnight line placed 10/20/16 TLC left IJ @ 15 cm placed 10/19/16 Amlodipine 10 mg POQD Hydralazine 25 mg POBID Losartan 100 mg POQD Labetalol 200 mg PO Q12H Pulm: Intubated: FiO2 30 PEEP 5 Rate 24 TV 500ml (PEEP settings adjusted CPAP 5, Pressure support 1.5) ABG: -10/26 pH 7.5, CO2 32, O2 91, HCO3 26.6 -10/24 pH 7.47, CO2 35, O2 119, HCO3 26.5 -10/23 pH 7.47, CO2 33, O2 66, HCO3 25.5 -10/22 pH 7.52, CO2 33, O2 57, HCO3 28.1 -10/21 pH 7.48, CO2 38, O2 79, HCO3 28.5 -10/20 pH 7.46, CO2 37, O2 187 HCO3 26.9 -10/19 pH 7.46, CO2 38, O2 214, HCO3 27.4 Imaging 10/26 CXR - Mild venous congestion. Right hilar prominence 10/24 CXR Mild venous congestion. Mild right infrahilar prominence 10/23 CXR - Mild venous congestion. right hilar prominence. Biapical pleural thickening upper lobe granulomatous changes. lines and tubes in stable position. 10/22 CXR - Worsening consolidative changes to right mid to lower lung zone. lines and tubes in stable position. 10/20 CXR - Distal tip of an endotracheal tube terminates approximately 4.6 cm above the brisa. Left IJ approach Central venous catheter terminates at expected location of the left innominate vein. Nasogastric tube extends to expected location of the stomach 10/19 CXR New nasogastric tube extends to distal esophagus, above the diaphragm. Repositioning is advised. ET tube unchanged. No infiltrate. 10/18 CXR ET tube proximal to brisa, no acute pulmonary pathology official read pending -f/u AM CXR and ABG Head of bed to 30* Keep O2 Sat >92% f/u General surgery consult for tracheostomy and PEG placement GI: Protonix 40 mg IV daily NPO NGT was advanced 10/20 Endo: Maintain euglycemia Accucheck ACHS Novolin R sliding scale low Heme: H&H: 12.6/39.8 Intracranial bleed Contraindication for anticoagulation F/u AM CBC No coagulopathy ID: Sputum cx: Klebsiella IV Avelox 250 cc @ 167 cc/hr IVPB Q24H Acetaminophen 650 mg Q6 PRN for fever f/u sputum cx Renal: BUN/Cr: 34/ 1.3 Serum Osm 314 using POC glucose of 104 Repeat BMP if serum Osm <310 MSK: OOB, PT Eval- F/U : I/O Balance- 178/2154 = -375cc Dumas in place Maintain dumas care Prophylaxis: GI - Protonix 40 mg IVP daily DVT - contraindicated 2/ to intracranial bleed <Mathew Bailey S - Last Filed: 10/26/16 18:21> CCU Objective - Vital Signs / Intake & Output Vital Signs (Last 4 hours): Vital Signs Temp Pulse Resp BP Pulse Ox 10/26/16 17:00 81 11 L 100 10/26/16 16:46 123/78 10/26/16 16:00 99.2 F 90 12 100 10/26/16 15:46 95 H 12 100 10/26/16 15:00 92 H 12 100 10/26/16 14:46 121/82 Intake and Output (Last 8hrs): Intake & Output 10/26/16 10/26/16 10/26/16 06:59 14:59 22:59 Intake Total 400 600 100 Output Total 770 615 120 Balance -370 -15 -20 Weight 145 lb 3 oz Intake: Intake, IV Amount 250 Right Forearm 250 Tube Feeding 400 350 100 Output: Urine 770 615 120 Urethral ([place]) 770 615 120 - Medications Active Medications: Active Medications Generic Name Dose Route Start Last Admin Trade Name Freq PRN Reason Stop Dose Admin Acetaminophen 650 mg 10/21/16 20:56 10/25/16 20:06 Tylenol 325mg Tab PO 650 mg Q6 PRN Administration Fever >100.4 F Amlodipine Besylate 10 mg 10/22/16 13:45 10/26/16 09:49 Norvasc PO 10 mg DAILY OMAR Administration Hydralazine HCl 25 mg 10/24/16 10:00 10/26/16 09:49 Apresoline PO 25 mg BID OMAR Administration Moxifloxacin HCl 250 mls @ 167 mls/hr 10/23/16 10:30 10/26/16 09:49 Avelox Iv 400mg/250ml Ns IVPB 167 mls/hr Q24H OMAR Administration Labetalol HCl 200 mg 10/24/16 10:00 10/26/16 09:49 Trandate PO 200 mg Q12 OMAR Administration Losartan Potassium 100 mg 10/24/16 10:00 10/26/16 12:16 Cozaar PO Not Given DAILY OMAR Pantoprazole Sodium 40 mg 10/23/16 10:00 10/26/16 09:49 Protonix Susp PO 40 mg DAILY OMAR Administration - Patient Studies Lab Studies: Microbiology Studies 10/21/16 16:39 Blood Culture - Final Blood-Venous NO GROWTH AFTER 5 DAYS Gram Stain - Final TEST NOT PERFORMED 10/21/16 16:39 Blood Culture - Final Blood-Venous NO GROWTH AFTER 5 DAYS Gram Stain - Final TEST NOT PERFORMED 10/25/16 16:07 Blood Culture - Preliminary Blood-Venous NO GROWTH AFTER 24 HOURS 10/25/16 16:07 Blood Culture - Preliminary Blood-Venous NO GROWTH AFTER 24 HOURS 10/25/16 16:07 Urine Culture - Final Urine,Dumas No Growth (<1,000 CFU/ML) 10/25/16 16:07 Gram Stain - Final Trachasp Sputum Culture - Preliminary Gram Negative Jesus Gram Negative Jesus#2 Lab Studies 10/26/16 10/26/16 Range/Units 06:08 05:25 WBC 12.8 H (4.8-10.8) K/uL RBC 4.73 (4.40-5.90) Mil/uL Hgb 12.6 (12.0-18.0) g/dL Hct 39.8 (35.0-51.0) % MCV 84.2 D (80.0-94.0) fL MCH 26.6 L (27.0-31.0) pg MCHC 31.6 L (33.0-37.0) g/dL RDW 14.3 (11.5-14.5) % Plt Count 212 (130-400) K/uL MPV 9.8 (7.2-11.7) fL Neut % (Auto) 78.1 H (50.0-75.0) % Lymph % (Auto) 13.6 L (20.0-40.0) % Nye % (Auto) 7.7 (0.0-10.0) % Eos % (Auto) 0.4 (0.0-4.0) % Baso % (Auto) 0.2 (0.0-2.0) % Neut # 10.0 H (1.8-7.0) K/uL Lymph # 1.7 (1.0-4.3) K/uL Nye # 1.0 H (0.0-0.8) K/uL Eos # 0.1 (0.0-0.7) K/uL Baso # 0.0 (0.0-0.2) K/uL Puncture Site Rr pCO2 32 L (35-45) mm/Hg pO2 92 (80-100) mm/Hg HCO3 26.6 (21-28) mmol/L ABG pH 7.50 H (7.35-7.45) ABG Total CO2 26.0 (22-28) mmol/L ABG O2 Saturation 98.4 H (95-98) % ABG Base Excess 2.2 (-2.0-3.0) mmol/L ABG Hemoglobin 12.0 (11.7-17.4) g/dL ABG Carboxyhemoglobin 1.0 (0.5-1.5) % POC ABG HHb (Measured) 1.6 (0.0-5.0) % ABG Methemoglobin 0.5 (0.0-3.0) % Kalyan Test Pos A-a O2 Difference 82.0 mm/Hg Respiratory Index 0.9 Hgb O2 Saturation 96.9 (95.0-98.0) % Mechanical Rate 24 FiO2 30.0 % Tidal Volume 500 PEEP 5 Sodium 148 (132-148) mmol/L Potassium 4.2 (3.6-5.2) mmol/L Chloride 108 H (98-107) mmol/L Carbon Dioxide 26 (22-30) mmol/L Anion Gap 18 (10-20) BUN 34 H (9-20) mg/dL Creatinine 1.3 (0.8-1.5) MG/DL Est GFR ( Amer) > 60 Est GFR (Non-Af Amer) 57 Random Glucose 104 (75-110) mg/dL Calcium 8.3 L (8.6-10.4) mg/dl Phosphorus 4.7 H (2.5-4.5) mg/dL Magnesium 2.6 H (1.6-2.3) mg/dL Total Bilirubin 0.5 (0.2-1.3) mg/dL AST 70 H (17-59) U/L ALT 113 H (21-72) U/L Alkaline Phosphatase 134 H (38-126) U/L Total Protein 6.9 (6.3-8.3) g/dL Albumin 3.1 L (3.5-5.0) g/dL Globulin 3.8 (2.2-3.9) gm/dL Albumin/Globulin Ratio 0.8 L (1.0-2.1) Laboratory Results - last 24 hr 10/26/16 10/26/16 05:25 06:08 WBC 12.8 H RBC 4.73 Hgb 12.6 Hct 39.8 MCV 84.2 D MCH 26.6 L MCHC 31.6 L RDW 14.3 Plt Count 212 MPV 9.8 Neut % (Auto) 78.1 H Lymph % (Auto) 13.6 L Nye % (Auto) 7.7 Eos % (Auto) 0.4 Baso % (Auto) 0.2 Neut # 10.0 H Lymph # 1.7 Nye # 1.0 H Eos # 0.1 Baso # 0.0 Puncture Site Rr pCO2 32 L pO2 92 HCO3 26.6 ABG pH 7.50 H ABG Total CO2 26.0 ABG O2 Saturation 98.4 H ABG Base Excess 2.2 ABG Hemoglobin 12.0 ABG Carboxyhemoglobin 1.0 POC ABG HHb (Measured) 1.6 ABG Methemoglobin 0.5 Kalyan Test Pos A-a O2 Difference 82.0 Respiratory Index 0.9 Hgb O2 Saturation 96.9 Mechanical Rate 24 FiO2 30.0 Tidal Volume 500 PEEP 5 Sodium 148 Potassium 4.2 Chloride 108 H Carbon Dioxide 26 Anion Gap 18 BUN 34 H Creatinine 1.3 Est GFR ( Amer) > 60 Est GFR (Non-Af Amer) 57 Random Glucose 104 Calcium 8.3 L Phosphorus 4.7 H Magnesium 2.6 H Total Bilirubin 0.5 AST 70 H ALT 113 H Alkaline Phosphatase 134 H Total Protein 6.9 Albumin 3.1 L Globulin 3.8 Albumin/Globulin Ratio 0.8 L Critical Care Progress Note - Nutrition Nutrition: Nutrition Category Date Time Status NPO Diet [DIET] Diets 10/18/16 Breakfast Active Attending/Attestation - Attestation I have personally seen and examined this patient.: Yes I have fully participated in the care of the patient.: Yes I have reviewed all pertinent clinical information: Yes Notes (Text): 10/26/16 18:20 Patient seen and examined in the intensive care unit. Case discussed withthe morning rounds. Trach and PEG insertion once the family decides Follow simple commands Tolerating CPAP
--- NOTE | 2016-10-26 19:25 | CP.PCM.PN ---
Subjective - Date & Time of Evaluation Date of Evaluation: 10/26/16 Time of Evaluation: 19:25 - Subjective Subjective: on vent does not respond trial of cpap moves left hand spont Objective - Vital Signs/Intake and Output Vital Signs (last 24 hours): Temp Pulse Resp BP Pulse Ox 99.2 F 81 11 L 123/78 100 10/26/16 16:00 10/26/16 17:00 10/26/16 17:00 10/26/16 16:46 10/26/16 17:00 Intake and Output: 10/26/16 10/27/16 18:59 06:59 Intake Total 700 Output Total 735 Balance -35 - Medications Medications: Current Medications Acetaminophen (Tylenol 325mg Tab) 650 mg PO Q6 PRN PRN Reason: Fever >100.4 F Last Admin: 10/25/16 20:06 Dose: 650 mg Amlodipine Besylate (Norvasc) 10 mg PO DAILY [facility] Last Admin: 10/26/16 09:49 Dose: 10 mg Hydralazine HCl (Apresoline) 25 mg PO BID [facility] Last Admin: 10/26/16 09:49 Dose: 25 mg Moxifloxacin HCl (Avelox Iv 400mg/250ml Ns) 250 mls @ 167 mls/hr IVPB Q24H [facility] Last Admin: 10/26/16 09:49 Dose: 167 mls/hr Labetalol HCl (Trandate) 200 mg PO Q12 [facility] Last Admin: 10/26/16 09:49 Dose: 200 mg Losartan Potassium (Cozaar) 100 mg PO DAILY [facility] Last Admin: 10/26/16 12:16 Dose: Not Given Pantoprazole Sodium (Protonix Susp) 40 mg PO DAILY [facility] Last Admin: 10/26/16 09:49 Dose: 40 mg - Labs Labs: 10/26/16 06:08 10/26/16 06:08 PT 11.7 SECONDS (9.7-12.2) 10/21/16 06:11 INR 1.0 10/21/16 06:11 APTT 29 SECONDS (21-34) 10/21/16 06:11 - Constitutional Appears: No Acute Distress - Head Exam Head Exam: ATRAUMATIC - Respiratory Exam Respiratory Exam: Clear to Ausculation Bilateral, NORMAL BREATHING PATTERN - Cardiovascular Exam Cardiovascular Exam: REGULAR RHYTHM, +S1, +S2 - GI/Abdominal Exam GI & Abdominal Exam: Soft, Normal Bowel Sounds. absent: Tenderness - Neurological Exam Neurological Exam: absent: Alert, Awake, Oriented x3 Assessment and Plan - Assessment and Plan (Free Text) Assessment: This is a 56 yo M with a past medical history of hypertension and no known other past medical history presenting for medical evaluation of intracranial bleed. The patient arrived to the ED intubated. Patient remains intubated with unchanged clinical status. Planning for trach and PEG discussed with family; however awaiting final decision. Plan: Neuro: Intubated Neurology consult - Dr. Simpson advise to schedule trach and PEG- waiting on family decision. Hold antiplatelets for 4-6 weeks and maintain blood pressure above 100 systolic. Sedation as needed 10/24 CT Head: little interval change in the size of left thalamic hemorrhage 2.4x2.9 cm with intraventricular extension of hemorrhage and mild obstructive hydrocephalus. 2 mm midline shift from left to right with no evidence of herniation. Near complete resolution of hemorrhage within 4th ventricle. 10/19 CT Head: little interval change in the known 2.0 x 2.7 acute hematoma in left thalamus with intra ventricular extension of hemorrhage. Interval mild worsening of obstructive hydrocephalus. 10/18 CT Head: Left basal ganglia acute hemorrhage, possibly hypertensive with associated intraventricular hemorrhage and mass effect upon the left lateral aspect of the 3rd ventricle with the tip shift of the 3rd ventricle towards the right side. No generalized midline shift. Air-fluid level in sphenoid sinus common nonspecific. Please correlate for concern regarding acute sinusitis. Mild involutional changes. GCS - 8T (E4 VT M4) [place] II 12.0, 12% estimated non-operative mortality Cardio: Hypotensive earlier- Held hydralazine dose for evening. Monitor overnight line placed 10/20/16 TLC left IJ @ 15 cm placed 10/19/16 Amlodipine 10 mg POQD Hydralazine 25 mg POBID Losartan 100 mg POQD Labetalol 200 mg PO Q12H Pulm: Intubated: FiO2 30 PEEP 5 Rate 24 TV 500ml (PEEP settings adjusted CPAP 5, Pressure support 1.5) ABG: -10/26 pH 7.5, CO2 32, O2 91, HCO3 26.6 -10/24 pH 7.47, CO2 35, O2 119, HCO3 26.5 -10/23 pH 7.47, CO2 33, O2 66, HCO3 25.5 -10/22 pH 7.52, CO2 33, O2 57, HCO3 28.1 -10/21 pH 7.48, CO2 38, O2 79, HCO3 28.5 -10/20 pH 7.46, CO2 37, O2 187 HCO3 26.9 -10/19 pH 7.46, CO2 38, O2 214, HCO3 27.4 Imaging 10/26 CXR - Mild venous congestion. Right hilar prominence 10/24 CXR Mild venous congestion. Mild right infrahilar prominence 10/23 CXR - Mild venous congestion. right hilar prominence. Biapical pleural thickening upper lobe granulomatous changes. lines and tubes in stable position. 10/22 CXR - Worsening consolidative changes to right mid to lower lung zone. lines and tubes in stable position. 10/20 CXR - Distal tip of an endotracheal tube terminates approximately 4.6 cm above the brisa. Left IJ approach Central venous catheter terminates at expected location of the left innominate vein. Nasogastric tube extends to expected location of the stomach 10/19 CXR New nasogastric tube extends to distal esophagus, above the diaphragm. Repositioning is advised. ET tube unchanged. No infiltrate. 10/18 CXR ET tube proximal to brisa, no acute pulmonary pathology official read pending -f/u AM CXR and ABG Head of bed to 30* Keep O2 Sat >92% f/u General surgery consult for tracheostomy and PEG placement GI: Protonix 40 mg IV daily NPO NGT was advanced 10/20 Endo: Maintain euglycemia Accucheck ACHS Novolin R sliding scale low Heme: H&H: 12.6/39.8 Intracranial bleed Contraindication for anticoagulation F/u AM CBC No coagulopathy ID: Sputum cx: Klebsiella IV Avelox 250 cc @ 167 cc/hr IVPB Q24H Acetaminophen 650 mg Q6 PRN for fever f/u sputum cx Renal: BUN/Cr: 34/ 1.3 Serum Osm 314 using POC glucose of 104 Repeat BMP if serum Osm <310 MSK: OOB, PT Eval- F/U : I/O Balance- 1788/2154 = -375cc Dum[place] in place Maintain dumas care Prophylaxis: GI - Protonix 40 mg IVP daily DVT - contraindicated 2/2 to intracranial bleed
[2016-10-27] MEDS ORDERED: Iodixanol 320 MG/ML 100 ML BOTTLE IV ONE (00:05)
[2016-10-27 05:26] LABS: ABG ALLEN TEST POS; ABG MECHANICAL RATE 24; ARTERIAL BLOOD HGB O2 SAT 95.1 % (95.0-98.0); ATERIAL BLOOD GAS PEEP 5; CARBOXYHEMOGLOBIN 0.8 % (0.5-1.5); DRAW SITE RR; HHB 3.2 % (0.0-5.0); METHEMOGLOBIN 0.9 % (0.0-3.0)
[2016-10-27 06:50] LABS: CHLORIDE 108 mmol/L (98-107)
[2016-10-27 06:51] LABS: POTASSIUM 3.8 mmol/L (3.6-5.2); SODIUM 148 mmol/L (132-148)
[2016-10-27 06:52] LABS: BASO % 0.2 % (0.0-2.0); EOS # 0.1 K/uL (0.0-0.7); EOS % 0.5 % (0.0-4.0); HEMATOCRIT 35.3 % (35.0-51.0); LYMPH # 1.9 K/uL (1.0-4.3); MEAN CELL VOLUME 81.9 fL (80.0-94.0); MEAN CORPUSCULAR HEMOGLOBIN 26.6 pg (27.0-31.0); MEAN CORPUSCULAR HGB CONC 32.4 g/dL (33.0-37.0); MEAN PLATELET VOLUME 9.7 fL (7.2-11.7); MONO % 7.1 % (0.0-10.0); RED CELL DISTRIBUTION WIDTH 14.1 % (11.5-14.5); WHITE BLOOD COUNT 14.3 K/uL (4.8-10.8)
[2016-10-27 06:53] LABS: ALB/GLOB RATIO 0.8 (1.0-2.1); AST/SGOT 68 U/L (17-59); BILIRUBIN,TOTAL 0.4 mg/dL (0.2-1.3); CARBON DIOXIDE 27 mmol/L (22-30); GFR AFRICAN-AMERICAN > 60; TOTAL PROTEIN 6.5 g/dL (6.3-8.3)
[2016-10-27 06:54] LABS: ALKALINE PHOSPHATASE 115 U/L (38-126); ALT/SGPT 102 U/L (21-72); BLOOD UREA NITROGEN 40 mg/dL (9-20); CALCIUM 8.2 mg/dl (8.6-10.4); GLUCOSE,RANDOM 122 mg/dL (75-110); MAGNESIUM 2.5 mg/dL (1.6-2.3); PHOSPHOROUS 4.6 mg/dL (2.5-4.5)
--- NOTE | 2016-10-27 08:43 | PN ---
DATE: 10/27/2016 NEUROLOGICAL PROBLEM: Status post hypertensive bleed with left thalamic bleed extension to intravent ricular hemorrhage and obstructive hydrocephalus. PHYSICAL EXAMINATION: VITAL SIGNS: Blood pressure 134/87, mean heart rate at present 98, respiratory rate 24, with a pulse rate 77, regular. NEUROLOGIC: The patient seems to be awake, trying to communicate visual fixation is there, plus spon taneous movement of the left side. The patient's examination is unchanged to compare with yesterday's exam. The patient's condition discussed with the door closer. The patient is a good candidate for PEG and track for [facility] rehabilitation. The patient will be followed while he is in the hospital. Enoc Simpson MD cc: [id number] TT: 10/27/2016 08:43:04 Confirmation # [id number] Dictation # [id number] [email or web address]
--- NOTE | 2016-10-27 08:43 | RAD ---
HISTORY: intubated COMPARISON: 10/26/2016 FINDINGS: LUNGS: No active pulmonary disease. PLEURA: No significant pleural effusion identified, no pneumothorax apparent. CARDIOVASCULAR: Normal. OSSEOUS STRUCTURES: No significant abnormalities. VISUALIZED UPPER ABDOMEN: Normal. OTHER FINDINGS: Endotracheal tube and nasogastric tube in satisfactory position IMPRESSION: No active disease.
--- NOTE | 2016-10-27 09:27 | CP.PCM.PN ---
Subjective - Date & Time of Evaluation Date of Evaluation: 10/27/16 Time of Evaluation: 09:22 - Subjective Subjective: PGY-1 note for General Surgery Pt S&E. Remains on mechanical ventilation (settings: 500/5/30%). Pt opens eyes spontaneously, and responds to noxious stimuli. ROS unobtainable due to patients clinical status. Will discuss with daughter today about getting consent for tracheostomy. Objective - Vital Signs/Intake and Output Vital Signs (last 24 hours): Temp Pulse Resp BP Pulse Ox 99 F 77 24 134/87 100 10/27/16 04:00 10/27/16 07:00 10/27/16 07:00 10/27/16 06:46 10/27/16 07:00 Intake and Output: 10/27/16 10/27/16 06:59 18:59 Intake Total 650 50 Output Total 815 185 Balance -165 -135 - Medications Medications: Current Medications Acetaminophen (Tylenol 325mg Tab) 650 mg PO Q6 PRN PRN Reason: Fever >100.4 F Last Admin: 10/26/16 21:09 Dose: 650 mg Amlodipine Besylate (Norvasc) 10 mg PO DAILY [facility] Last Admin: 10/26/16 09:49 Dose: 10 mg Hydralazine HCl (Apresoline) 25 mg PO BID [facility] Last Admin: 10/26/16 09:49 Dose: 25 mg Moxifloxacin HCl (Avelox Iv 400mg/250ml Ns) 250 mls @ 167 mls/hr IVPB Q24H [facility] Last Admin: 10/26/16 09:49 Dose: 167 mls/hr Labetalol HCl (Trandate) 200 mg PO Q12 [facility] Last Admin: 10/26/16 21:09 Dose: 200 mg Losartan Potassium (Cozaar) 100 mg PO DAILY [facility] Last Admin: 10/26/16 12:16 Dose: Not Given Pantoprazole Sodium (Protonix Susp) 40 mg PO DAILY [facility] Last Admin: 10/26/16 09:49 Dose: 40 mg - Labs Labs: 10/27/16 06:34 10/27/16 06:34 PT 11.7 SECONDS (9.7-12.2) 10/21/16 06:11 INR 1.0 10/21/16 06:11 APTT 29 SECONDS (21-34) 10/21/16 06:11 - Head Exam Head Exam: ATRAUMATIC, NORMOCEPHALIC - Eye Exam Eye Exam: PERRL (sluggish in reaction) - ENT Exam ENT Exam: Mucous Membranes Moist - Respiratory Exam Respiratory Exam: Clear to Ausculation Bilateral, NORMAL BREATHING PATTERN Additional comments: On mechanical ventilation - Cardiovascular Exam Cardiovascular Exam: REGULAR RHYTHM, +S1, +S2 - GI/Abdominal Exam GI & Abdominal Exam: Soft, Normal Bowel Sounds - Neurological Exam Neurological Exam: absent: Alert, Oriented x3 Assessment and Plan - Assessment and Plan (Free Text) Assessment: Tracheostomy tentatively scheduled for Monday, provided family consents to procedure. Family meeting at 9PM this evening for final decision. Continue management per ICU.
[2016-10-27] MEDS ORDERED: Sodium Chloride 0.9% 1,000 ML IV SCH (10:00)
[2016-10-27] MEDS: Pantoprazole 40 mg Susp UD PO SCH (10:35)
[2016-10-27] MEDS: Moxifloxacin IV 400mg/250ml NS 250 ML IVPB SCH (10:36)
--- NOTE | 2016-10-27 11:36 | CP.PCM.PN ---
<Pallavi Cerda - Last Filed: 10/27/16 18:10> Subjective - Date & Time of Evaluation Date of Evaluation: 10/27/16 Time of Evaluation: 11:34 - Subjective Subjective: Gastroenterology Fellow/PGY4 Progress Note Patient opens eyes spontaneously. Nursing notes followed command to opening mouth for oral hygiene. A 12-point review of systems unable to be completed due to intubation and hemorrhagic stroke. Objective - Vital Signs/Intake and Output Vital Signs (last 24 hours): Temp Pulse Resp BP Pulse Ox 99 F 77 24 134/87 100 10/27/16 04:00 10/27/16 07:00 10/27/16 07:00 10/27/16 06:46 10/27/16 07:00 Intake and Output: 10/27/16 10/27/16 06:59 18:59 Intake Total 650 50 Output Total 815 185 Balance -165 -135 - Medications Medications: Current Medications Acetaminophen (Tylenol 325mg Tab) 650 mg PO Q6 PRN PRN Reason: Fever >100.4 F Last Admin: 10/26/16 21:09 Dose: 650 mg Amlodipine Besylate (Norvasc) 10 mg PO DAILY [facility] Last Admin: 10/26/16 09:49 Dose: 10 mg Hydralazine HCl (Apresoline) 25 mg PO BID [facility] Last Admin: 10/26/16 09:49 Dose: 25 mg Moxifloxacin HCl (Avelox Iv 400mg/250ml Ns) 250 mls @ 167 mls/hr IVPB Q24H [facility] Last Admin: 10/27/16 10:36 Dose: 167 mls/hr Sodium Chloride (Sodium Chloride 0.9%) 1,000 mls @ 75 mls/hr IV .[id number] [facility] Stop: 10/27/16 23:19 Last Admin: 10/27/16 10:37 Dose: 75 mls/hr Labetalol HCl (Trandate) 200 mg PO Q12 [facility] Last Admin: 10/27/16 10:35 Dose: 200 mg Losartan Potassium (Cozaar) 100 mg PO DAILY [facility] Last Admin: 10/27/16 10:35 Dose: 100 mg Pantoprazole Sodium (Protonix Susp) 40 mg PO DAILY [facility] Last Admin: 10/27/16 10:35 Dose: 40 mg - Labs Labs: 10/27/16 06:34 10/27/16 06:34 PT 11.7 SECONDS (9.7-12.2) 10/21/16 06:11 INR 1.0 10/21/16 06:11 APTT 29 SECONDS (21-34) 10/21/16 06:11 - Constitutional Appears: Non-toxic, No Acute Distress - Head Exam Head Exam: ATRAUMATIC, NORMOCEPHALIC - Eye Exam Eye Exam: PERRL Pupil Exam: PERRL. absent: Miosis, Mydriatic - ENT Exam ENT Exam: Mucous Membranes Moist, Normal Oropharynx - Neck Exam Neck Exam: Normal Inspection - Respiratory Exam Respiratory Exam: Clear to Ausculation Bilateral. absent: Rales, Rhonchi, Wheezes - Cardiovascular Exam Cardiovascular Exam: RRR, +S1, +S2. absent: Gallop, Rubs - GI/Abdominal Exam GI & Abdominal Exam: Soft, Normal Bowel Sounds. absent: Distended, Firm, Guarding, Rigid, Tenderness, Mass, Organomegaly, Rebound - Extremities Exam Extremities Exam: Normal Inspection. absent: Pedal Edema - Neurological Exam Additional comments: intubated, PERRL, equivocal RLE Babinski, downgoing LLE Babinski - Psychiatric Exam Additional comments: intubated, hemorrhagic stroke, unable to assess - Skin Skin Exam: Dry, Intact, Normal Color, Warm Assessment and Plan - Assessment and Plan (Free Text) Assessment: 56 year old male with prior medical history of hypertension presenting after being found down and intubated by EMS in the field. History obtained by record review and ICU team requesting GI consultation for PEG placement evaluation. 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 Plan: >discussion held with at bedside yesterday and daughter at bedside today >discussion of risks vs benefit of PEG placement to family, with expressing understanding >additional family to discuss treatment plan, will provide update on decision for PEG placement on Monday >patient would benefit from PEG placement given hemorrhagic stroke >will follow up with family tomorrow on decision for PEG placement >continue OGT tube feeds >surgery managing- evaluation for tracheostomy placement >will make further recommendations based on clinical course <Geo Farfan - Last Filed: 10/27/16 20:25> Objective - Vital Signs/Intake and Output Vital Signs (last 24 hours): Temp Pulse Resp BP Pulse Ox 100.1 F H 91 H 11 L 139/79 100 10/27/16 20:00 10/27/16 20:00 10/27/16 20:00 10/27/16 19:47 10/27/16 20:00 Intake and Output: 10/27/16 10/28/16 18:59 06:59 Intake Total 1300 50 Output Total 915 Balance 385 50 - Medications Medications: Current Medications Acetaminophen (Tylenol 325mg Tab) 650 mg PO Q6 PRN PRN Reason: Fever >100.4 F Last Admin: 10/26/16 21:09 Dose: 650 mg Amlodipine Besylate (Norvasc) 10 mg PO DAILY [facility] Last Admin: 10/27/16 16:15 Dose: 10 mg Hydralazine HCl (Apresoline) 25 mg PO BID [facility] Last Admin: 10/26/16 09:49 Dose: 25 mg Moxifloxacin HCl (Avelox Iv 400mg/250ml Ns) 250 mls @ 167 mls/hr IVPB Q24H [facility] Last Admin: 10/27/16 10:36 Dose: 167 mls/hr Sodium Chloride (Sodium Chloride 0.9%) 1,000 mls @ 75 mls/hr IV .[id number] [facility] Stop: 10/27/16 23:19 Last Admin: 10/27/16 10:37 Dose: 75 mls/hr Labetalol HCl (Trandate) 200 mg PO Q12 [facility] Last Admin: 10/27/16 10:35 Dose: 200 mg Losartan Potassium (Cozaar) 100 mg PO DAILY [facility] Last Admin: 10/27/16 10:35 Dose: 100 mg Pantoprazole Sodium (Protonix Susp) 40 mg PO DAILY [facility] Last Admin: 10/27/16 10:35 Dose: 40 mg - Labs Labs: 10/27/16 06:34 10/27/16 06:34 PT 11.7 SECONDS (9.7-12.2) 10/21/16 06:11 INR 1.0 10/21/16 06:11 APTT 29 SECONDS (21-34) 10/21/16 06:11 Attending/Attestation - Attestation I have personally seen and examined this patient.: Yes I have fully participated in the care of the patient.: Yes I have reviewed all pertinent clinical information, including history, physical exam and plan: Yes Notes (Text): 10/27/16 20:22 I have seen and examined patient with GI fellow. No acute events overnight. According to nursing staff, there is no abdominal pain, nausea, vomiting, fever/ chills. Tolerating OGT feeding without difficulty. He remains intubated, though is able to follow simple commands. Hypertensive emergency, acute hemorrhagic CVA - Case discussed with patient's daughter at bedside. Family is in agreement to proceed forward with PEG placement. Risks/benefits of procedure have been discussed with them in great detail and they agree with treatment plan. - Will tentatively plan for procedure tomorrow, NPO after midnight.
--- NOTE | 2016-10-27 17:04 | CP.CCUPN ---
<Serg Ledbetter - Last Filed: 10/27/16 17:49> CCU Subjective - Physician Review Subjective (Free Text): 10/24/16 21:01 Patient seen and examined at bedside. The patient appears to be in no acute distress with no noteworthy events per nursing. The patient had a fever over the weekend. Sputum cultures were positive for Klebsiella. Patient is on IV Avelox. The patient is intubated (FiO2 30 PEEP 5 RATE 24 TV 500ml, Peak 24). Patient is able to open eyes spontaneously and track with his eyes. Patient has weak movement with his left upper and lower extremities. Digits on left foot has spastic movements. Patient has minimal movement of right extremities and reacts to painful stimuli. Patient unable to comply wth ROS at this time due to clinical status. 10/25/16 17:23 Patient seen and examined at bedside in no acute distress. There were no noteworthy events per nursing. Patient has nonpurposeful movements in his left upper and lower extremities. Digits on left foot has spastic movements. Patient has minimal movement of right extremities and occasionally reacts to painful stimuli. Patient unable to comply with ROS at this time due to clinical status. 10/26/16 17:21 Patient seen and examined bedside in no acute distress. The patient is intubated (FiO2 30 PEEP 5 RATE 24 TV 500ml, Peak 24). Patient opens eyes spontaneously. Patient has weak movement with his left upper and lower extremities. Digits on left foot has spastic movements. Patient has minimal movement of right extremities and reacts to painful stimuli. Patient unable to comply with ROS at this time due to clinical status. 10/27/16 17:02 Patient seen and examined at beside in no acute distress. Patient is intubated ( FiO2 30 PEEP 5 RATE 24 TV 500 ml, Peak ). There were no noteworthy events per nursing. Patient has horizontal nystagmus and intermittently opens eyes when addressed/stimulated. Patient has nonpurposeful movements of left extremities. Patient has minimal movement of right extremities. Patient is unable to comply with ROS at this time due to clinical status. CCU Objective - Vital Signs / Intake & Output Vital Signs (Last 4 hours): Vital Signs Pulse Resp BP Pulse Ox 10/27/16 14:00 93 H 15 100 10/27/16 13:46 135/87 Intake and Output (Last 8hrs): Intake & Output 10/27/16 10/27/1610/27/17 06:59 14:59 22:59 Intake Total 400 800 Output Total 555 665 Balance -155 135 Weight 144 lb Intake: Intake, IV Amount 400 Right Forearm 400 Tube Feeding 400 400 Output: Urine 555 665 Urethral ([place]) 555 665 - Physical Exam Head: Positive for: Atraumatic, Normocephalic Pupils: Positive for: PERRL (minimal reactivity, intact corneal reflex) Extroacular Muscles: Positive for: EOMI Conjunctiva: Positive for: Normal Ears: Positive for: Normal Mouth: Positive for: Moist Mucous Membranes Pharnyx: Positive for: Other (cough and gag reflex intact) Nose (External): Positive for: Atraumatic Respiratory/Chest: Positive for: Clear to Auscultation, Good Air Exchange. Negative for: Respiratory Distress, Accessory Muscle Use Cardiovascular: Positive for: Regular Rate and Rhythm, Normal S1, S2. Negative for: Murmurs Abdomen: Positive for: Normal Bowel Sounds. Negative for: Tenderness, Distention, Peritoneal Signs Upper Extremity: Positive for: Normal Inspection. Negative for: Cyanosis, Edema Lower Extremity: Positive for: Normal Inspection. Negative for: Edema Neurological: Positive for: Other (minimal 0-1/5 strength R extremities, (-) Babinski B/L, no response to pain right extremities; some response in left extremitied. left sided respones are nonpurposeful and increased in comparison to the right side) Skin: Positive for: Warm, Dry, Normal Color. Negative for: Rashes Psychiatric: Positive for: Alert - Medications Active Medications: Active Medications Generic Name Dose Route Start Last Admin Trade Name Freq PRN Reason Stop Dose Admin Acetaminophen 650 mg 10/21/16 20:56 10/26/16 21:09 Tylenol 325mg Tab PO 650 mg Q6 PRN Administration Fever >100.4 F Amlodipine Besylate 10 mg 10/22/16 13:45 10/27/16 16:15 Norvasc PO 10 mg DAILY OMAR Administration Hydralazine HCl 25 mg 10/24/16 10:00 10/26/16 09:49 Apresoline PO 25 mg BID OMAR Administration Moxifloxacin HCl 250 mls @ 167 mls/hr 10/23/16 10:30 10/27/16 10:36 Avelox Iv 400mg/250ml Ns IVPB 167 mls/hr Q24H OMAR Administration Sodium Chloride 1,000 mls @ 75 mls/hr 10/27/16 10:00 10/27/16 10:37 Sodium Chloride 0.9% IV 10/27/16 23:19 75 mls/hr .[id number] OMAR Administration Labetalol HCl 200 mg 10/24/16 10:00 10/27/16 10:35 Trandate PO 200 mg Q12 OMAR Administration Losartan Potassium 100 mg 10/24/16 10:00 10/27/16 10:35 Cozaar PO 100 mg DAILY OMAR Administration Pantoprazole Sodium 40 mg 10/23/16 10:00 10/27/16 10:35 Protonix Susp PO 40 mg DAILY OMAR Administration - Patient Studies Lab Studies: Microbiology Studies 10/25/16 16:07 Gram Stain - Final Trachasp Sputum Culture - Final Serratia Marcescens Enterobacter Aerogenes 10/21/16 16:39 Blood Culture - Final Blood-Venous NO GROWTH AFTER 5 DAYS Gram Stain - Final TEST NOT PERFORMED 10/21/16 16:39 Blood Culture - Final Blood-Venous NO GROWTH AFTER 5 DAYS Gram Stain - Final TEST NOT PERFORMED 10/25/16 16:07 Blood Culture - Preliminary Blood-Venous NO GROWTH AFTER 24 HOURS 10/25/16 16:07 Blood Culture - Preliminary Blood-Venous NO GROWTH AFTER 24 HOURS Lab Studies 10/27/16 10/27/16 Range/Units 06:34 05:16 WBC 14.3 H (4.8-10.8) K/uL RBC 4.32 L (4.40-5.90) Mil/uL Hgb 11.5 L (12.0-18.0) g/dL Hct 35.3 (35.0-51.0) % MCV 81.9 D (80.0-94.0) fL MCH 26.6 L (27.0-31.0) pg MCHC 32.4 L (33.0-37.0) g/dL RDW 14.1 (11.5-14.5) % Plt Count 248 (130-400) K/uL MPV 9.7 (7.2-11.7) fL Neut % (Auto) 79.2 H (50.0-75.0) % Lymph % (Auto) 13.0 L (20.0-40.0) % Wirt % (Auto) 7.1 (0.0-10.0) % Eos % (Auto) 0.5 (0.0-4.0) % Baso % (Auto) 0.2 (0.0-2.0) % Neut # 11.3 H (1.8-7.0) K/uL Lymph # 1.9 (1.0-4.3) K/uL Wirt # 1.0 H (0.0-0.8) K/uL Eos # 0.1 (0.0-0.7) K/uL Baso # 0.0 (0.0-0.2) K/uL Puncture Site Rr pCO2 33 L (35-45) mm/Hg pO2 74 L (80-100) mm/Hg HCO3 26.5 (21-28) mmol/L ABG pH 7.49 H (7.35-7.45) ABG Total CO2 26.1 (22-28) mmol/L ABG O2 Saturation 96.7 (95-98) % ABG Base Excess 2.1 (-2.0-3.0) mmol/L ABG Hemoglobin 11.5 L (11.7-17.4) g/dL ABG Carboxyhemoglobin 0.8 (0.5-1.5) % POC ABG HHb (Measured) 3.2 (0.0-5.0) % ABG Methemoglobin 0.9 (0.0-3.0) % Kalyan Test Pos A-a O2 Difference 99.0 mm/Hg Respiratory Index 1.3 Hgb O2 Saturation 95.1 (95.0-98.0) % Mechanical Rate 24 FiO2 30.0 % Tidal Volume 500 PEEP 5 Sodium 148 (132-148) mmol/L Potassium 3.8 (3.6-5.2) mmol/L Chloride 108 H (98-107) mmol/L Carbon Dioxide 27 (22-30) mmol/L Anion Gap 17 (10-20) BUN 40 H (9-20) mg/dL Creatinine 1.4 (0.8-1.5) MG/DL Est GFR ( Amer) > 60 Est GFR (Non-Af Amer) 52 Random Glucose 122 H (75-110) mg/dL Calcium 8.2 L (8.6-10.4) mg/dl Phosphorus 4.6 H (2.5-4.5) mg/dL Magnesium 2.5 H (1.6-2.3) mg/dL Total Bilirubin 0.4 (0.2-1.3) mg/dL AST 68 H (17-59) U/L ALT 102 H (21-72) U/L Alkaline Phosphatase 115 (38-126) U/L Total Protein 6.5 (6.3-8.3) g/dL Albumin 2.8 L (3.5-5.0) g/dL Globulin 3.7 (2.2-3.9) gm/dL Albumin/Globulin Ratio 0.8 L (1.0-2.1) Laboratory Results - last 24 hr 10/27/16 10/27/16 05:16 06:34 WBC 14.3 H RBC 4.32 L Hgb 11.5 L Hct 35.3 MCV 81.9 D MCH 26.6 L MCHC 32.4 L RDW 14.1 Plt Count 248 MPV 9.7 Neut % (Auto) 79.2 H Lymph % (Auto) 13.0 L Wirt % (Auto) 7.1 Eos % (Auto) 0.5 Baso % (Auto) 0.2 Neut # 11.3 H Lymph # 1.9 Wirt # 1.0 H Eos # 0.1 Baso # 0.0 Puncture Site Rr pCO2 33 L pO2 74 L HCO3 26.5 ABG pH 7.49 H ABG Total CO2 26.1 ABG O2 Saturation 96.7 ABG Base Excess 2.1 ABG Hemoglobin 11.5 L ABG Carboxyhemoglobin 0.8 POC ABG HHb (Measured) 3.2 ABG Methemoglobin 0.9 Kalyan Test Pos A-a O2 Difference 99.0 Respiratory Index 1.3 Hgb O2 Saturation 95.1 Mechanical Rate 24 FiO2 30.0 Tidal Volume 500 PEEP 5 Sodium 148 Potassium 3.8 Chloride 108 H Carbon Dioxide 27 Anion Gap 17 BUN 40 H Creatinine 1.4 Est GFR ( Amer) > 60 Est GFR (Non-Af Amer) 52 Random Glucose 122 H Calcium 8.2 L Phosphorus 4.6 H Magnesium 2.5 H Total Bilirubin 0.4 AST 68 H ALT 102 H Alkaline Phosphatase 115 Total Protein 6.5 Albumin 2.8 L Globulin 3.7 Albumin/Globulin Ratio 0.8 L Fingerstick Blood Sugar Results: 139 Review of Systems - Review of Systems Review of Systems: as noted in subjective Critical Care Progress Note - Nutrition Nutrition: Nutrition Category Date Time Status NPO Diet [DIET] Diets 10/18/16 Breakfast Active Assessment/Plan - Assessment and Plan (Free Text) Assessment: This is a 56 yo M with a past medical history of hypertension and otherwise unknown past medical history presenting for medical evaluation of intracranial bleed. The patient arrived to the ED intubated. Patient remains intubated with unchanged clinical status. Trach and PEG discussed with family; awaiting final decision. As per surgery, trach is tentatively placed for Monday with family agreement. Plan: Neuro: Intubated Neurology consult - Dr. Simpson advised to schedule trach and PEG. Hold antiplatelets for 4-6 weeks and maintain blood pressure above 100 systolic. Sedation as needed 10/24 CT Head: Little interval change in the size of left thalamic hemorrhage 2.4x2.9 cm with intraventricular extension of hemorrhage and mild obstructive hydrocephalus. 2 mm midline shift from left to right with no evidence of herniation. Near complete resolution of hemorrhage within 4th ventricle. 10/19 CT Head: little interval change in the known 2.0 x 2.7 acute hematoma in left thalamus with intra ventricular extension of hemorrhage. Interval mild worsening of obstructive hydrocephalus. 10/18 CT Head: Left basal ganglia acute hemorrhage, possibly hypertensive with associated intraventricular hemorrhage and mass effect upon the left lateral aspect of the 3rd ventricle with the tip shift of the 3rd ventricle towards the right side. No generalized midline shift. Air-fluid level in sphenoid sinus common nonspecific. Please correlate for concern regarding acute sinusitis. Mild involutional changes. GCS - 8T (E4 VT M4) MARY'S IGLOO II 10.0, 12% estimated non-operative mortality Cardio: Hypertension line placed 10/20/16 TLC left IJ @ 15 cm placed 10/19/16 Amlodipine 10 mg POQD Hydralazine 25 mg POBID Losartan 100 mg POQD Labetalol 200 mg PO Q12H Pulm: Intubated: FiO2 30 PEEP 5 Rate 24 TV 500ml CPAP trial ABG: -10/27 pH 7.49, CO2 33, O2 74, HCO3 26.5 -10/26 pH 7.5, CO2 32, O2 91, HCO3 26.6 Considerations for PEG tube to be placed pending family decision later tonight at 9PM. Conversation with daughter Debbi regarding family to be in agreement before surgical team can proceed. Imaging 10/27 CXR No active disease 10/26 CXR - Mild venous congestion. Right hilar prominence -f/u AM CXR and ABG Head of bed to 30* Keep O2 Sat >92% f/u General surgery consult for tracheostomy and PEG placement. GI: NPO NGT was advanced 10/20 Considerations for PEG tube to be placed pending family decision later tonight. Conversation with daughter Debbi regarding family to be in agreement before GI team can proceed. Endo: Maintain euglycemia Heme: H&H: 11.5/35.3 Intracranial bleed Contraindication for anticoagulation F/u AM CBC No coagulopathy ID: 10/[id number] Sputum cx: Serratia marcescens and Enterobactor aerogenes 10/21 Sputum cx: Klebsiella pneumoniae Hold change of antibiotics. Fully aware of the low grade temperature, and increase in WBCs. Patient is hemodynamically stable. IV Avelox 250 cc @ 167 cc/hr IVPB Q24H Acetaminophen 650 mg Q6 PRN for fever Renal: BUN/Cr: 40/1.4 MSK: OOB, PT Eval : I/O Balance- 1450/1685 = -[address] Maintain dumas care Prophylaxis: GI - Protonix 40 mg IVP daily DVT - contraindicated 2/2 to intracranial bleed <Moose Larsen - Last Filed: 10/27/16 18:11> CCU Objective - Vital Signs / Intake & Output Intake and Output (Last 8hrs): Intake & Output 10/27/16 10/27/16 10/27/16 06:59 14:59 22:59 Intake Total 400 800 Output Total 555 665 Balance -155 135 Weight 144 lb Intake: Intake, IV Amount 400 Right Forearm 400 Tube Feeding 400 400 Output: Urine 555 665 Urethral ([place]) 555 665 - Medications Active Medications: Active Medications Generic Name Dose Route Start Last Admin Trade Name Freq PRN Reason Stop Dose Admin Acetaminophen 650 mg 10/21/16 20:56 10/26/16 21:09 Tylenol 325mg Tab PO 650 mg Q6 PRN Administration Fever >100.4 F Amlodipine Besylate 10 mg 10/22/16 13:45 10/27/16 16:15 Norvasc PO 10 mg DAILY OMAR Administration Hydralazine HCl 25 mg 10/24/16 10:00 10/26/16 09:49 Apresoline PO 25 mg BID OMAR Administration Moxifloxacin HCl 250 mls @ 167 mls/hr 10/23/16 10:30 10/27/16 10:36 Avelox Iv 400mg/250ml Ns IVPB 167 mls/hr Q24H OMAR Administration Sodium Chloride 1,000 mls @ 75 mls/hr 10/27/16 10:00 10/27/16 10:37 Sodium Chloride 0.9% IV 10/27/16 23:19 75 mls/hr .[id number] OMAR Administration Labetalol HCl 200 mg 10/24/16 10:00 10/27/16 10:35 Trandate PO 200 mg Q12 OMAR Administration Losartan Potassium 100 mg 10/24/16 10:00 10/27/16 10:35 Cozaar PO 100 mg DAILY OMAR Administration Pantoprazole Sodium 40 mg 10/23/16 10:00 10/27/16 10:35 Protonix Susp PO 40 mg DAILY OMAR Administration - Patient Studies Lab Studies: Microbiology Studies 10/25/16 16:07 Blood Culture - Preliminary Blood-Venous NO GROWTH AFTER 48 HOURS 10/25/16 16:07 Blood Culture - Preliminary Blood-Venous NO GROWTH AFTER 48 HOURS 10/25/16 16:07 Gram Stain - Final Trachasp Sputum Culture - Final Serratia Marcescens Enterobacter Aerogenes 10/21/16 16:39 Blood Culture - Final Blood-Venous NO GROWTH AFTER 5 DAYS Gram Stain - Final TEST NOT PERFORMED 10/21/16 16:39 Blood Culture - Final Blood-Venous NO GROWTH AFTER 5 DAYS Gram Stain - Final TEST NOT PERFORMED Lab Studies 10/27/16 10/27/16 Range/Units 06:34 05:16 WBC 14.3 H (4.8-10.8) K/uL RBC 4.32 L (4.40-5.90) Mil/uL Hgb 11.5 L (12.0-18.0) g/dL Hct 35.3 (35.0-51.0) % MCV 81.9 D (80.0-94.0) fL MCH 26.6 L (27.0-31.0) pg MCHC 32.4 L (33.0-37.0) g/dL RDW 14.1 (11.5-14.5) % Plt Count 248 (130-400) K/uL MPV 9.7 (7.2-11.7) fL Neut % (Auto) 79.2 H (50.0-75.0) % Lymph % (Auto) 13.0 L (20.0-40.0) % Wirt % (Auto) 7.1 (0.0-10.0) % Eos % (Auto) 0.5 (0.0-4.0) % Baso % (Auto) 0.2 (0.0-2.0) % Neut # 11.3 H (1.8-7.0) K/uL Lymph # 1.9 (1.0-4.3) K/uL Wirt # 1.0 H (0.0-0.8) K/uL Eos # 0.1 (0.0-0.7) K/uL Baso # 0.0 (0.0-0.2) K/uL Puncture Site Rr pCO2 33 L (35-45) mm/Hg pO2 74 L (80-100) mm/Hg HCO3 26.5 (21-28) mmol/L ABG pH 7.49 H (7.35-7.45) ABG Total CO2 26.1 (22-28) mmol/L ABG O2 Saturation 96.7 (95-98) % ABG Base Excess 2.1 (-2.0-3.0) mmol/L ABG Hemoglobin 11.5 L (11.7-17.4) g/dL ABG Carboxyhemoglobin 0.8 (0.5-1.5) % POC ABG HHb (Measured) 3.2 (0.0-5.0) % ABG Methemoglobin 0.9 (0.0-3.0) % Kalyan Test Pos A-a O2 Difference 99.0 mm/Hg Respiratory Index 1.3 Hgb O2 Saturation 95.1 (95.0-98.0) % Mechanical Rate 24 FiO2 30.0 % Tidal Volume 500 PEEP 5 Sodium 148 (132-148) mmol/L Potassium 3.8 (3.6-5.2) mmol/L Chloride 108 H (98-107) mmol/L Carbon Dioxide 27 (22-30) mmol/L Anion Gap 17 (10-20) BUN 40 H (9-20) mg/dL Creatinine 1.4 (0.8-1.5) MG/DL Est GFR ( Amer) > 60 Est GFR (Non-Af Amer) 52 Random Glucose 122 H (75-110) mg/dL Calcium 8.2 L (8.6-10.4) mg/dl Phosphorus 4.6 H (2.5-4.5) mg/dL Magnesium 2.5 H (1.6-2.3) mg/dL Total Bilirubin 0.4 (0.2-1.3) mg/dL AST 68 H (17-59) U/L ALT 102 H (21-72) U/L Alkaline Phosphatase 115 (38-126) U/L Total Protein 6.5 (6.3-8.3) g/dL Albumin 2.8 L (3.5-5.0) g/dL Globulin 3.7 (2.2-3.9) gm/dL Albumin/Globulin Ratio 0.8 L (1.0-2.1) Laboratory Results - last 24 hr 10/27/16 10/27/16 05:16 06:34 WBC 14.3 H RBC 4.32 L Hgb 11.5 L Hct 35.3 MCV 81.9 D MCH 26.6 L MCHC 32.4 L RDW 14.1 Plt Count 248 MPV 9.7 Neut % (Auto) 79.2 H Lymph % (Auto) 13.0 L Wirt % (Auto) 7.1 Eos % (Auto) 0.5 Baso % (Auto) 0.2 Neut # 11.3 H Lymph # 1.9 Wirt # 1.0 H Eos # 0.1 Baso # 0.0 Puncture Site Rr pCO2 33 L pO2 74 L HCO3 26.5 ABG pH 7.49 H ABG Total CO2 26.1 ABG O2 Saturation 96.7 ABG Base Excess 2.1 ABG Hemoglobin 11.5 L ABG Carboxyhemoglobin 0.8 POC ABG HHb (Measured) 3.2 ABG Methemoglobin 0.9 Kalyan Test Pos A-a O2 Difference 99.0 Respiratory Index 1.3 Hgb O2 Saturation 95.1 Mechanical Rate 24 FiO2 30.0 Tidal Volume 500 PEEP 5 Sodium 148 Potassium 3.8 Chloride 108 H Carbon Dioxide 27 Anion Gap 17 BUN 40 H Creatinine 1.4 Est GFR ( Amer) > 60 Est GFR (Non-Af Amer) 52 Random Glucose 122 H Calcium 8.2 L Phosphorus 4.6 H Magnesium 2.5 H Total Bilirubin 0.4 AST 68 H ALT 102 H Alkaline Phosphatase 115 Total Protein 6.5 Albumin 2.8 L Globulin 3.7 Albumin/Globulin Ratio 0.8 L Critical Care Progress Note - Nutrition Nutrition: Nutrition Category Date Time Status NPO Diet [DIET] Diets 10/18/16 Breakfast Active Attending/Attestation - Attestation I have personally seen and examined this patient.: Yes I have fully participated in the care of the patient.: Yes I have reviewed all pertinent clinical information: Yes Notes (Text): 10/27/16 18:11 Today: October The Patient was seen and examined at the bedside, Medical records reviewed, all clinical/lab/hemodynamic/radiographic data were reviewed and management issues were discussed and formulated, Events reviewed Pain issues, skin care, head of the bed elevation, GI/DVT prophylaxis, glycemic control were addressed. Agree with above treatment plans as transcribed in Dr. Ledbetter note
--- NOTE | 2016-10-27 17:36 | CP.PCM.PN ---
Subjective - Date & Time of Evaluation Date of Evaluation: 10/27/16 Time of Evaluation: 17:35 - Subjective Subjective: non verbal on vent opens eyes to command and spont left arm ? questionalbe response on command spont left arm and left leg movements no movements on right side of body Objective - Vital Signs/Intake and Output Vital Signs (last 24 hours): Temp Pulse Resp BP Pulse Ox 99.8 F H 93 H 15 135/87 100 10/27/16 12:00 10/27/16 14:00 10/27/16 14:00 10/27/16 13:46 10/27/16 14:00 Intake and Output: 10/27/16 10/27/16 06:59 18:59 Intake Total 650 800 Output Total 815 665 Balance -165 135 - Medications Medications: Current Medications Acetaminophen (Tylenol 325mg Tab) 650 mg PO Q6 PRN PRN Reason: Fever >100.4 F Last Admin: 10/26/16 21:09 Dose: 650 mg Amlodipine Besylate (Norvasc) 10 mg PO DAILY [facility] Last Admin: 10/27/16 16:15 Dose: 10 mg Hydralazine HCl (Apresoline) 25 mg PO BID [facility] Last Admin: 10/26/16 09:49 Dose: 25 mg Moxifloxacin HCl (Avelox Iv 400mg/250ml Ns) 250 mls @ 167 mls/hr IVPB Q24H [facility] Last Admin: 10/27/16 10:36 Dose: 167 mls/hr Sodium Chloride (Sodium Chloride 0.9%) 1,000 mls @ 75 mls/hr IV .[id number] [facility] Stop: 10/27/16 23:19 Last Admin: 10/27/16 10:37 Dose: 75 mls/hr Labetalol HCl (Trandate) 200 mg PO Q12 [facility] Last Admin: 10/27/16 10:35 Dose: 200 mg Losartan Potassium (Cozaar) 100 mg PO DAILY [facility] Last Admin: 10/27/16 10:35 Dose: 100 mg Pantoprazole Sodium (Protonix Susp) 40 mg PO DAILY [facility] Last Admin: 10/27/16 10:35 Dose: 40 mg - Labs Labs: 10/27/16 06:34 10/27/16 06:34 PT 11.7 SECONDS (9.7-12.2) 10/21/16 06:11 INR 1.0 10/21/16 06:11 APTT 29 SECONDS (21-34) 10/21/16 06:11 - Constitutional Appears: No Acute Distress - Head Exam Head Exam: ATRAUMATIC - ENT Exam Additional comments: et - Respiratory Exam Respiratory Exam: Clear to Ausculation Bilateral - Cardiovascular Exam Cardiovascular Exam: REGULAR RHYTHM, +S1, +S2 - GI/Abdominal Exam GI & Abdominal Exam: Soft, Normal Bowel Sounds. absent: Tenderness - Neurological Exam Neurological Exam: absent: Alert, Awake, Oriented x3 Assessment and Plan - Assessment and Plan (Free Text) Assessment: This is a 56 yo M with a past medical history of hypertension and otherwise unknown past medical history presenting for medical evaluation of intracranial bleed. The patient arrived to the ED intubated. Patient remains intubated with unchanged clinical status. Trach and PEG discussed with family; awaiting final decision. As per surgery, trach is tentatively placed for Monday with family agreement. Plan: Neuro: Intubated Neurology consult - Dr. Simpson advised to schedule trach and PEG. Hold antiplatelets for 4-6 weeks and maintain blood pressure above 100 systolic. Sedation as needed 10/24 CT Head: Little interval change in the size of left thalamic hemorrhage 2.4x2.9 cm with intraventricular extension of hemorrhage and mild obstructive hydrocephalus. 2 mm midline shift from left to right with no evidence of herniation. Near complete resolution of hemorrhage within 4th ventricle. 10/19 CT Head: little interval change in the known 2.0 x 2.7 acute hematoma in left thalamus with intra ventricular extension of hemorrhage. Interval mild worsening of obstructive hydrocephalus. 10/18 CT Head: Left basal ganglia acute hemorrhage, possibly hypertensive with associated intraventricular hemorrhage and mass effect upon the left lateral aspect of the 3rd ventricle with the tip shift of the 3rd ventricle towards the right side. No generalized midline shift. Air-fluid level in sphenoid sinus common nonspecific. Please correlate for concern regarding acute sinusitis. Mild involutional changes. GCS - 8T (E4 VT M4) ANGOON II 10.0, 12% estimated non-operative mortality Cardio: Hypertension line placed 10/20/16 TLC left IJ @ 15 cm placed 10/19/16 Amlodipine 10 mg POQD Hydralazine 25 mg POBID Losartan 100 mg POQD Labetalol 200 mg PO Q12H Pulm: Intubated: FiO2 30 PEEP 5 Rate 24 TV 500ml CPAP trial ABG: -10/27 pH 7.49, CO2 33, O2 74, HCO3 26.5 -10/26 pH 7.5, CO2 32, O2 91, HCO3 26.6 Considerations for PEG tube to be placed pending family decision later tonight at 9PM. Conversation with daughter Debbi regarding family to be in agreement before surgical team can proceed. Imaging 10/27 CXR No active disease 10/26 CXR - Mild venous congestion. Right hilar prominence -f/u AM CXR and ABG Head of bed to 30* Keep O2 Sat >92% f/u General surgery consult for tracheostomy and PEG placement. GI: NPO NGT was advanced 10/20 Considerations for PEG tube to be placed pending family decision later tonight. Conversation with daughter Debbi regarding family to be in agreement before GI team can proceed. Endo: Maintain euglycemia Heme: H&H: 11.5/35.3 Intracranial bleed Contraindication for anticoagulation F/u AM CBC No coagulopathy ID: 10/25 Sputum cx: Serratia marcescens and Enterobactor aerogenes 10/21 Sputum cx: Klebsiella pneumoniae Hold change of antibiotics. Fully aware of the low grade temperature, and increase in WBCs. Patient is hemodynamically stable. IV Avelox 250 cc @ 167 cc/hr IVPB Q24H Acetaminophen 650 mg Q6 PRN for fever Renal: BUN/Cr: 40/1.4 MSK: OOB, PT Eval : I/O Balance- 1450/1685 = -[address] Maintain dumas care Prophylaxis: GI - Protonix 40 mg IVP daily DVT - contraindicated 2/2 to intracranial bleed
--- NOTE | 2016-10-27 22:11 | CP.PCM.PN ---
Subjective - Date & Time of Evaluation Date of Evaluation: 10/27/16 Time of Evaluation: 03:30 - Subjective Subjective: dictated Objective - Vital Signs/Intake and Output Vital Signs (last 24 hours): Temp Pulse Resp BP Pulse Ox 100.1 F H 83 24 118/71 98 10/27/16 21:14 10/27/16 22:00 10/27/16 22:00 10/27/16 21:46 10/27/16 22:00 Intake and Output: 10/27/16 10/28/16 18:59 06:59 Intake Total 1300 375 Output Total 915 Balance 385 375 - Medications Medications: Current Medications Acetaminophen (Tylenol 325mg Tab) 650 mg PO Q6 PRN PRN Reason: Fever >100.4 F Last Admin: 10/27/16 21:14 Dose: 650 mg Amlodipine Besylate (Norvasc) 10 mg PO DAILY [facility] Last Admin: 10/27/16 16:15 Dose: 10 mg Hydralazine HCl (Apresoline) 25 mg PO BID [facility] Last Admin: 10/26/16 09:49 Dose: 25 mg Moxifloxacin HCl (Avelox Iv 400mg/250ml Ns) 250 mls @ 167 mls/hr IVPB Q24H [facility] Last Admin: 10/27/16 10:36 Dose: 167 mls/hr Sodium Chloride (Sodium Chloride 0.9%) 1,000 mls @ 75 mls/hr IV .[id number] [facility] Stop: 10/27/16 23:19 Last Admin: 10/27/16 10:37 Dose: 75 mls/hr Labetalol HCl (Trandate) 200 mg PO Q12 [facility] Last Admin: 10/27/16 21:13 Dose: 200 mg Losartan Potassium (Cozaar) 100 mg PO DAILY [facility] Last Admin: 10/27/16 10:35 Dose: 100 mg Pantoprazole Sodium (Protonix Susp) 40 mg PO DAILY [facility] Last Admin: 10/27/16 10:35 Dose: 40 mg - Labs Labs: 10/27/16 06:34 10/27/16 06:34 PT 11.7 SECONDS (9.7-12.2) 10/21/16 06:11 INR 1.0 10/21/16 06:11 APTT 29 SECONDS (21-34) 10/21/16 06:11
--- NOTE | 2016-10-27 22:55 | PN ---
DATE: 10/27/2016 The patient remains with a low grade temperature of 100.1. PHYSICAL EXAMINATION: VITAL SIGNS: Heart rate is 91. Blood pressure is 118/71, respirations are 24. GENERAL: He remains lethargic. He moves his lower extremity, left one, not the right. He remains i ntubated. His daughter is at the bedside. He says he will be getting a trach and she is going to ta lk to her brothers. He seems to be moving his left leg and no movement on the right side, and remain s intubated. NECK: Supple. LUNGS: Clear. No crackles or rales present. HEART: S1, S2 regular. ABDOMEN: Soft, nontender, no guarding, no rigidity present. EXTREMITIES: Has foot protectors on at this time. LABORATORY DATA: Noted. Labs show white count is 14.3, it went up from 12.8, hemoglobin is 11.5, he matocrit 35.3, platelets are 248. Chemistry shows sodium is 148, potassium 3.8, chloride 108, CO2 i s 27, BUN is 40, creatinine is 1.4. Micro shows gram sputum has Serratia and Enterobacter and these are both sensitive to Cipro. ALLERGIES: The patient has no known allergies. He is running a temp. Urine culture is negative. He is status post recent hemorrhagic cerebrovascul ar accident. At this time, chest x-ray shows no active disease, so probably he aspirated and . His Creatin ine is 1.4. MEDICATIONS: He is on moxifloxacin which should be similar to Cipro. At this time, we will continue it. If he continues to have low grade temperatures, as he is not skye rgic to any medicine, we can change to cefepime and will follow. The patient had a CVA with acute re spiratory failure, altered mental status, and has Enterobacter and Klebsiella, most likely due to asp iration. Lisa Chavez MD cc: [id number] TT: 10/27/2016 22:54:25 Confirmation # [id number] Dictation # [id number] ln
[2016-10-27] MEDS: Cefepime IV 1 gm in Dextrose 50 ML IVPB SCH (23:02)
[2016-10-28 05:51] LABS: ABG ALLEN TEST POS; ABG MECHANICAL RATE 24; ARTERIAL BLOOD HGB O2 SAT 95.2 % (95.0-98.0); ATERIAL BLOOD GAS PEEP 5; CARBOXYHEMOGLOBIN 0.9 % (0.5-1.5); DRAW SITE RR; HHB 3.5 % (0.0-5.0); METHEMOGLOBIN 0.4 % (0.0-3.0)
[2016-10-28 06:04] LABS: BASO # 0.1 K/uL (0.0-0.2); BASO % 0.4 % (0.0-2.0); EOS # 0.1 K/uL (0.0-0.7); EOS % 0.4 % (0.0-4.0); HEMATOCRIT 35.2 % (35.0-51.0); LYMPH # 1.8 K/uL (1.0-4.3); LYMPH % 11.1 % (20.0-40.0); MEAN CELL VOLUME 82.4 fL (80.0-94.0); MEAN CORPUSCULAR HEMOGLOBIN 25.9 pg (27.0-31.0); MEAN CORPUSCULAR HGB CONC 31.5 g/dL (33.0-37.0); MEAN PLATELET VOLUME 9.7 fL (7.2-11.7); MONO # 1.1 K/uL (0.0-0.8); MONO % 6.7 % (0.0-10.0); RED CELL DISTRIBUTION WIDTH 14.2 % (11.5-14.5); WHITE BLOOD COUNT 16.1 K/uL (4.8-10.8)
[2016-10-28 06:11] LABS: INR 1.3
[2016-10-28 06:21] LABS: CHLORIDE 109 mmol/L (98-107); POTASSIUM 3.9 mmol/L (3.6-5.2); SODIUM 149 mmol/L (132-148)
[2016-10-28 06:23] LABS: AST/SGOT 60 U/L (17-59); BILIRUBIN,TOTAL 0.7 mg/dL (0.2-1.3); GFR AFRICAN-AMERICAN > 60
[2016-10-28 06:24] LABS: ALB/GLOB RATIO 0.9 (1.0-2.1); ALKALINE PHOSPHATASE 112 U/L (38-126); ALT/SGPT 100 U/L (21-72); BLOOD UREA NITROGEN 44 mg/dL (9-20); CARBON DIOXIDE 27 mmol/L (22-30); GLUCOSE,RANDOM 111 mg/dL (75-110); PHOSPHOROUS 5.1 mg/dL (2.5-4.5); TOTAL PROTEIN 6.3 g/dL (6.3-8.3)
[2016-10-28 06:25] LABS: CALCIUM 7.7 mg/dl (8.6-10.4); MAGNESIUM 2.5 mg/dL (1.6-2.3)
--- NOTE | 2016-10-28 08:46 | CP.CCUPN ---
<Serg Ledbetter - Last Filed: 10/28/16 22:43> CCU Subjective - Physician Review Subjective (Free Text): 10/24/16 21:01 Patient seen and examined at bedside. The patient appears to be in no acute distress with no noteworthy events per nursing. The patient had a fever over the weekend. Sputum cultures were positive for Klebsiella. Patient is on IV Avelox. The patient is intubated (FiO2 30 PEEP 5 RATE 24 TV 500ml, Peak 24). Patient is able to open eyes spontaneously and track with his eyes. Patient has weak movement with his left upper and lower extremities. Digits on left foot has spastic movements. Patient has minimal movement of right extremities and reacts to painful stimuli. Patient unable to comply wth ROS at this time due to clinical status. 10/25/16 17:23 Patient seen and examined at bedside in no acute distress. There were no noteworthy events per nursing. Patient has nonpurposeful movements in his left upper and lower extremities. Digits on left foot has spastic movements. Patient has minimal movement of right extremities and occasionally reacts to painful stimuli. Patient unable to comply with ROS at this time due to clinical status. 10/26/16 17:21 Patient seen and examined bedside in no acute distress. The patient is intubated (FiO2 30 PEEP 5 RATE 24 TV 500ml, Peak 24). Patient opens eyes spontaneously. Patient has weak movement with his left upper and lower extremities. Digits on left foot has spastic movements. Patient has minimal movement of right extremities and reacts to painful stimuli. Patient unable to comply with ROS at this time due to clinical status. 10/27/16 17:02 Patient seen and examined at beside in no acute distress. Patient is intubated ( FiO2 30 PEEP 5 RATE 24 TV 500 ml, Peak ). There were no noteworthy events per nursing. Patient has horizontal nystagmus and intermittently opens eyes when addressed/stimulated. Patient has nonpurposeful movements of left extremities. Patient has minimal movement of right extremities. Patient is unable to comply with ROS at this time due to clinical status. 10/28/16 22:38 Patient seen and examined at beside in no acute distress. Patient is intubated ( FiO2 30 PEEP 5 RATE 24 TV 500 ml). Patient tolerated CPAP yesterday. There were no noteworthy events per nursing. Patient is noted to open eyes spontaneously, and nod in response to questions. He is moving his left upper and lower extremities on his own. GCS 10T ([id number]). Patient received a percutaneous tracheostomy today. Resting in bed. PEG procedure postponed for another time. An ROS could not be obtained due to clinical status. CCU Objective - Vital Signs / Intake & Output Vital Signs (Last 4 hours): Vital Signs Temp Pulse Resp BP Pulse Ox 10/28/16 08:00 99.0 F 101 H 16 98 10/28/16 07:46 100 H 17 127/94 H 96 10/28/16 07:00 103 H 24 97 10/28/16 06:47 100 H 15 135/89 97 10/28/16 06:09 99 H 17 98 10/28/16 06:00 98 H 18 98 10/28/16 05:47 96 H 17 131/81 100 10/28/16 05:45 98 H 17 98 10/28/16 05:00 84 24 98 Intake and Output (Last 8hrs): Intake & Output 10/27/16 10/28/16 10/28/16 22:59 06:59 14:59 Intake Total 875 300 0 Output Total 250 1070 Balance 625 300 -1070 Weight 144 lb 8 oz Intake: Intake, IV Amount 525 200 0 Right Forearm 525 200 0 Oral 0 Tube Feeding 350 100 Output: Urine 250 1070 Urethral ([place]) 250 1070 Other: # Bowel Movements 0 - Physical Exam Head: Positive for: Atraumatic, Normocephalic Pupils: Positive for: PERRL (minimal reactivity, intact corneal reflex), Other ( some spontaneous eye movements) Extroacular Muscles: Positive for: EOMI Conjunctiva: Positive for: Normal Ears: Positive for: Normal Mouth: Positive for: Moist Mucous Membranes Pharnyx: Positive for: Other (cough and gag reflex intact) Nose (External): Positive for: Atraumatic Respiratory/Chest: Positive for: Clear to Auscultation, Good Air Exchange. Negative for: Respiratory Distress, Accessory Muscle Use Cardiovascular: Positive for: Regular Rate and Rhythm, Normal S1, S2. Negative for: Murmurs Abdomen: Positive for: Normal Bowel Sounds. Negative for: Tenderness, Distention, Peritoneal Signs Upper Extremity: Positive for: Normal Inspection. Negative for: Cyanosis, Edema Lower Extremity: Positive for: Normal Inspection. Negative for: Edema Neurological: Positive for: Other (minimal 0-1/5 strength R extremities, (-) Babinski B/L, no response to pain right extremities; some response in left extremitied. left sided respones are nonpurposeful and increased in comparison to the right side) Skin: Positive for: Warm, Dry, Normal Color. Negative for: Rashes Psychiatric: Positive for: Alert - Medications Active Medications: Active Medications Generic Name Dose Route Start Last Admin Trade Name Freq PRN Reason Stop Dose Admin Acetaminophen 650 mg 10/21/16 20:56 10/27/16 21:14 Tylenol 325mg Tab PO 650 mg Q6 PRN Administration Fever >100.4 F Amlodipine Besylate 10 mg 10/22/16 13:45 10/27/16 16:15 Norvasc PO 10 mg DAILY [facility] Administration Hydralazine HCl 25 mg 10/24/16 10:00 10/26/16 09:49 Apresoline PO 25 mg BID [facility] Administration Cefepime HCl 50 mls @ 100 mls/hr 10/27/16 23:00 10/27/16 23:02 Maxipime Iv 1 Gm Premix IVPB 100 mls/hr Q12H [facility] Administration Labetalol HCl 200 mg 10/24/16 10:00 10/27/16 21:13 Trandate PO 200 mg Q12 [facility] Administration Losartan Potassium 100 mg 10/24/16 10:00 10/27/16 10:35 Cozaar PO 100 mg DAILY [facility] Administration Pantoprazole Sodium 40 mg 10/23/16 10:00 10/27/16 10:35 Protonix Susp PO 40 mg DAILY [facility] Administration - Patient Studies Lab Studies: Microbiology Studies 10/25/16 16:07 Blood Culture - Preliminary Blood-Venous NO GROWTH AFTER 48 HOURS 10/25/16 16:07 Blood Culture - Preliminary Blood-Venous NO GROWTH AFTER 48 HOURS 10/25/16 16:07 Gram Stain - Final Trachasp Sputum Culture - Final Serratia Marcescens Enterobacter Aerogenes Lab Studies 10/28/16 10/28/16 Range/Units 05:59 05:09 WBC 16.1 H (4.8-10.8) K/uL RBC 4.27 L (4.40-5.90) Mil/uL Hgb 11.1 L (12.0-18.0) g/dL Hct 35.2 (35.0-51.0) % MCV 82.4 (80.0-94.0) fL MCH 25.9 L (27.0-31.0) pg MCHC 31.5 L (33.0-37.0) g/dL RDW 14.2 (11.5-14.5) % Plt Count 253 (130-400) K/uL MPV 9.7 (7.2-11.7) fL Neut % (Auto) 81.4 H (50.0-75.0) % Lymph % (Auto) 11.1 L (20.0-40.0) % [place] % (Auto) 6.7 (0.0-10.0) % Eos % (Auto) 0.4 (0.0-4.0) % Baso % (Auto) 0.4 (0.0-2.0) % Neut # 13.1 H (1.8-7.0) K/uL Lymph # 1.8 (1.0-4.3) K/uL [place] # 1.1 H (0.0-0.8) K/uL Eos # 0.1 (0.0-0.7) K/uL Baso # 0.1 (0.0-0.2) K/uL PT 14.2 H (9.7-12.2) SECONDS INR 1.3 APTT 30 (21-34) SECONDS Puncture Site Rr pCO2 35 (35-45) mm/Hg pO2 73 L (80-100) mm/Hg HCO3 25.9 (21-28) mmol/L ABG pH 7.46 H (7.35-7.45) ABG Total CO2 26.0 (22-28) mmol/L ABG O2 Saturation 96.5 (95-98) % ABG Base Excess 1.3 (-2.0-3.0) mmol/L ABG Hemoglobin 12.4 (11.7-17.4) g/dL ABG Carboxyhemoglobin 0.9 (0.5-1.5) % POC ABG HHb (Measured) 3.5 (0.0-5.0) % ABG Methemoglobin 0.4 (0.0-3.0) % [place] Test Pos A-a O2 Difference 97.0 mm/Hg Respiratory Index 1.3 Hgb O2 Saturation 95.2 (95.0-98.0) % Mechanical Rate 24 FiO2 30.0 % Tidal Volume 500 PEEP 5 Sodium 149 H (132-148) mmol/L Potassium 3.9 (3.6-5.2) mmol/L Chloride 109 H (98-107) mmol/L Carbon Dioxide 27 (22-30) mmol/L Anion Gap 17 (10-20) BUN 44 H (9-20) mg/dL Creatinine 1.4 (0.8-1.5) MG/DL Est GFR ( Amer) > 60 Est GFR (Non-Af Amer) 52 Random Glucose 111 H (75-110) mg/dL Calcium 7.7 L (8.6-10.4) mg/dl Phosphorus 5.1 H (2.5-4.5) mg/dL Magnesium 2.5 H (1.6-2.3) mg/dL Total Bilirubin 0.7 (0.2-1.3) mg/dL AST 60 H (17-59) U/L ALT 100 H (21-72) U/L Alkaline Phosphatase 112 (38-126) U/L Total Protein 6.3 (6.3-8.3) g/dL Albumin 3.0 L (3.5-5.0) g/dL Globulin 3.3 (2.2-3.9) gm/dL Albumin/Globulin Ratio 0.9 L (1.0-2.1) Laboratory Results - last 24 hr 10/28/16 10/28/16 05:09 05:59 WBC 16.1 H RBC 4.27 L Hgb 11.1 L Hct 35.2 MCV 82.4 MCH 25.9 L MCHC 31.5 L RDW 14.2 Plt Count 253 MPV 9.7 Neut % (Auto) 81.4 H Lymph % (Auto) 11.1 L [place] % (Auto) 6.7 Eos % (Auto) 0.4 Baso % (Auto) 0.4 Neut # 13.1 H Lymph # 1.8 [place] # 1.1 H Eos # 0.1 Baso # 0.1 PT 14.2 H INR 1.3 APTT 30 Puncture Site Rr pCO2 35 pO2 73 L HCO3 25.9 ABG pH 7.46 H ABG Total CO2 26.0 ABG O2 Saturation 96.5 ABG Base Excess 1.3 ABG Hemoglobin 12.4 ABG Carboxyhemoglobin 0.9 POC ABG HHb (Measured) 3.5 ABG Methemoglobin 0.4 [place] Test Pos A-a O2 Difference 97.0 Respiratory Index 1.3 Hgb O2 Saturation 95.2 Mechanical Rate 24 FiO2 30.0 Tidal Volume 500 PEEP 5 Sodium 149 H Potassium 3.9 Chloride 109 H Carbon Dioxide 27 Anion Gap 17 BUN 44 H Creatinine 1.4 Est GFR ( Amer) > 60 Est GFR (Non-Af Amer) 52 Random Glucose 111 H Calcium 7.7 L Phosphorus 5.1 H Magnesium 2.5 H Total Bilirubin 0.7 AST 60 H ALT 100 H Alkaline Phosphatase 112 Total Protein 6.3 Albumin 3.0 L Globulin 3.3 Albumin/Globulin Ratio 0.9 L Fingerstick Blood Sugar Results: 139 Review of Systems - Review of Systems Review of Systems: as noted in subjective Critical Care Progress Note - Nutrition Nutrition: Nutrition Category Date Time Status NPO Diet [DIET] Diets 10/28/16 Breakfast Active Assessment/Plan - Assessment and Plan (Free Text) Assessment: This is a 56 yo M with a past medical history of hypertension and otherwise unknown past medical history presenting for medical evaluation of intracranial bleed. The patient arrived to the ED intubated. Patient remains intubated with unchanged clinical status. Trach and PEG discussed with family; awaiting final decision. Trach placed today. PEG rescheduled due to time constraints. Plan: Neuro: Intubated Neurology consult - Dr. Simpson advise to schedule trach and PEG. Hold antiplatelets for 4-6 weeks and maintain blood pressure above 100 systolic. Sedation as needed 10/24 CT Head: little interval change in the size of left thalamic hemorrhage 2.4x2.9 cm with intraventricular extension of hemorrhage and mild obstructive hydrocephalus. 2 mm midline shift from left to right with no evidence of herniation. Near complete resolution of hemorrhage within 4th ventricle. 10/19 CT Head: little interval change in the known 2.0 x 2.7 acute hematoma in left thalamus with intra ventricular extension of hemorrhage. Interval mild worsening of obstructive hydrocephalus. 10/18 CT Head: Left basal ganglia acute hemorrhage, possibly hypertensive with associated intraventricular hemorrhage and mass effect upon the left lateral aspect of the 3rd ventricle with the tip shift of the 3rd ventricle towards the right side. No generalized midline shift. Air-fluid level in sphenoid sinus common nonspecific. Please correlate for concern regarding acute sinusitis. Mild involutional changes. GCS - 8T (E4 VT M4) ALATNA II 10.0, 12% estimated non-operative mortality Cardio: Hypertension line placed 10/20/16 TLC left IJ @ 15 cm placed 10/19/16 Amlodipine 10 mg POQD Hydralazine 25 mg POBID Losartan 100 mg POQD Labetalol 200 mg PO Q12H Pulm: Intubated: FiO2 30 PEEP 5 Rate 24 TV 500ml CPAP trial s/p tracheostomy today ABG: -10/28 pH 7.46, CO2 35, O2 73, HCO3 25.9 -10/27 pH 7.49, CO2 33, O2 74, HCO3 26.5 -10/26 pH 7.5, CO2 32, O2 91, HCO3 26.6 -10/24 pH 7.47, CO2 35, O2 119, HCO3 26.5 -10/23 pH 7.47, CO2 33, O2 66, HCO3 25.5 -10/22 pH 7.52, CO2 33, O2 57, HCO3 28.1 -10/21 pH 7.48, CO2 38, O2 79, HCO3 28.5 -10/20 pH 7.46, CO2 37, O2 187 HCO3 26.9 -10/19 pH 7.46, CO2 38, O2 214, HCO3 27.4 Imaging 10/28 CXR No focal airspace opacity 10/27 CXR No active disease 10/26 CXR - Mild venous congestion. Right hilar prominence 10/24 CXR Mild venous congestion. Mild right infrahilar prominence 10/23 CXR - Mild venous congestion. right hilar prominence. Biapical pleural thickening upper lobe granulomatous changes. lines and tubes in stable position. 10/22 CXR - Worsening consolidative changes to right mid to lower lung zone. lines and tubes in stable position. 10/20 CXR - Distal tip of an endotracheal tube terminates approximately 4.6 cm above the brisa. Left IJ approach Central venous catheter terminates at expected location of the left innominate vein. Nasogastric tube extends to expected location of the stomach 10/19 CXR New nasogastric tube extends to distal esophagus, above the diaphragm. Repositioning is advised. ET tube unchanged. No infiltrate. 10/18 CXR ET tube proximal to brisa, no acute pulmonary pathology official read pending -f/u AM CXR and ABG Head of bed to 30* Keep O2 Sat >92% f/u General surgery consult for tracheostomy and PEG placement GI: NPO NGT was advanced 10/20 Patient is getting PEG today Endo: Maintain euglycemia Heme: H&H: 11.1/35.2 Intracranial bleed Contraindication for anticoagulation F/u AM CBC No coagulopathy ID: [id number] Sputum cx: Serratia marcescens and Enterobactor aerogenes 10/21 Sputum cx: Klebsiella pneumoniae Hold change of antibiotics. Fully aware of the low grade temperature, and increase in WBCs. Patient is hemodynamically stable. IV Cefepime 1 gram 50 cc @ 100cc/hr Acetaminophen 650 mg Q6 PRN for fever Renal: BUN/Cr: 44/1.4 MSK: OOBTC, PT Eval and treat Check PEG and tracheostomy site for drainage, erythema, hematoma, signs of infection. : I/O Balance- = 1060cc Dumas in place Maintain dumas care Prophylaxis: GI - Protonix 40 mg IVP daily DVT - contraindicated / to intracranial bleed <Moose Larsen M - Last Filed: 11/03/16 23:50> CCU Objective - Vital Signs / Intake & Output Intake and Output (Last 8hrs): Intake & Output 11/03/16 11/03/16 11/04/16 14:59 22:59 06:59 Intake Total 1250 Output Total 300 400 Balance -300 850 Intake: Intake, IV Amount 250 Right Forearm 250 Tube Feeding 800 Other 200 Output: Urine 300 400 Condom 300 400 Other: # Voids Urethral ([place]) 0 - Medications Active Medications: Active Medications Generic Name Dose Route Start Last Admin Trade Name Freq PRN Reason Stop Dose Admin Acetaminophen 650 mg 10/21/16 20:56 10/31/16 22:08 Tylenol 325mg Tab PO 650 mg Q6 PRN Administration Fever >100.4 F Amlodipine Besylate 10 mg 10/22/16 13:45 11/03/16 11:39 Norvasc PO 10 mg DAILY [facility] Administration Hydralazine HCl 25 mg 10/24/16 10:00 10/26/16 09:49 Apresoline PO 25 mg BID [facility] Administration Vancomycin HCl 1 gm/ Sodium 250 mls @ 166.7 mls/hr 11/01/16 11:15 11/03/16 11: 39 Chloride IVPB 166.7 mls/hr Q24H [facility] Administration Losartan Potassium 100 mg 10/24/16 10:00 11/03/16 11:39 Cozaar PO 100 mg DAILY [facility] Administration Metoprolol Tartrate 50 mg 10/31/16 10:00 11/03/16 17:26 Lopressor PO 50 mg BID [facility] Administration Pantoprazole Sodium 40 mg 10/23/16 10:00 11/03/16 11:39 Protonix Susp PO 40 mg DAILY [facility] Administration - Patient Studies Lab Studies: Microbiology Studies 11/01/16 17:30 Blood Culture - Preliminary Blood-Venous NO GROWTH AFTER 48 HOURS 11/01/16 15:09 Blood Culture - Preliminary Blood-Venous NO GROWTH AFTER 48 HOURS 11/01/16 22:40 Urine Culture - Final Urine No Growth (<1,000 CFU/ML) Lab Studies 11/03/16 Range/Units 06:59 WBC 16.7 H (4.8-10.8) K/uL RBC 4.50 (4.40-5.90) Mil/uL Hgb 11.8 L (12.0-18.0) g/dL Hct 37.5 (35.0-51.0) % MCV 83.4 (80.0-94.0) fL MCH 26.2 L (27.0-31.0) pg MCHC 31.4 L (33.0-37.0) g/dL RDW 14.3 (11.5-14.5) % Plt Count 326 (130-400) K/uL MPV 10.6 (7.2-11.7) fL Neut % (Auto) 85.3 H (50.0-75.0) % Lymph % (Auto) 8.4 L (20.0-40.0) % [place] % (Auto) 5.4 (0.0-10.0) % Eos % (Auto) 0.6 (0.0-4.0) % Baso % (Auto) 0.3 (0.0-2.0) % Neut # 14.2 H (1.8-7.0) K/uL Lymph # 1.4 (1.0-4.3) K/uL [place] # 0.9 H (0.0-0.8) K/uL Eos # 0.1 (0.0-0.7) K/uL Baso # 0.0 (0.0-0.2) K/uL Neutrophils % (Manual) 88 H (50-75) % Lymphocytes % (Manual) 7 L (20-40) % Monocytes % (Manual) 4 (0-10) % Eosinophils % (Manual) 1 (0-4) % Platelet Estimate Normal (NORMAL) RBC Morphology Normal Sodium 155 H (132-148) mmol/L Potassium 3.9 (3.6-5.2) mmol/L Chloride 113 H (98-107) mmol/L Carbon Dioxide 25 (22-30) mmol/L Anion Gap 21 H (10-20) BUN 47 H (9-20) mg/dL Creatinine 1.2 (0.8-1.5) MG/DL Est GFR ( Amer) > 60 Est GFR (Non-Af Amer) > 60 Random Glucose 105 (75-110) mg/dL Calcium 9.0 (8.6-10.4) mg/dl Magnesium 2.7 H (1.6-2.3) mg/dL Total Bilirubin 0.7 (0.2-1.3) mg/dL AST 54 (17-59) U/L ALT 76 H (21-72) U/L Alkaline Phosphatase 105 (38-126) U/L Total Protein 7.1 (6.3-8.3) g/dL Albumin 3.2 L (3.5-5.0) g/dL Globulin 3.8 (2.2-3.9) gm/dL Albumin/Globulin Ratio 0.8 L (1.0-2.1) Laboratory Results - last 24 hr 11/03/16 06:59 WBC 16.7 H RBC 4.50 Hgb 11.8 L Hct 37.5 MCV 83.4 MCH 26.2 L MCHC 31.4 L RDW 14.3 Plt Count 326 MPV 10.6 Neut % (Auto) 85.3 H Lymph % (Auto) 8.4 L [place] % (Auto) 5.4 Eos % (Auto) 0.6 Baso % (Auto) 0.3 Neut # 14.2 H Lymph # 1.4 [place] # 0.9 H Eos # 0.1 Baso # 0.0 Neutrophils % (Manual) 88 H Lymphocytes % (Manual) 7 L Monocytes % (Manual) 4 Eosinophils % (Manual) 1 Platelet Estimate Normal RBC Morphology Normal Sodium 155 H Potassium 3.9 Chloride 113 H Carbon Dioxide 25 Anion Gap 21 H BUN 47 H Creatinine 1.2 Est GFR ( Amer) > 60 Est GFR (Non-Af Amer) > 60 Random Glucose 105 Calcium 9.0 Magnesium 2.7 H Total Bilirubin 0.7 AST 54 ALT 76 H Alkaline Phosphatase 105 Total Protein 7.1 Albumin 3.2 L Globulin 3.8 Albumin/Globulin Ratio 0.8 L Attending/Attestation - Attestation I have personally seen and examined this patient.: Yes I have fully participated in the care of the patient.: Yes I have reviewed all pertinent clinical information: Yes Notes (Text): Today: Friday, October 28, 2016 The Patient was seen and examined at the bedside, Medical records reviewed, all clinical/lab/hemodynamic/radiographic data were reviewed and management issues were discussed and formulated, Events reviewed Pain issues, skin care, head of the bed elevation, glycemic control were addressed. Agree with above treatment plans as transcribed in Dr. Ledbetter note
[2016-10-28] MEDS: Pantoprazole 40 mg Susp UD PO SCH (09:30)
[2016-10-28] MEDS: Cefepime IV 1 gm in Dextrose 50 ML IVPB SCH ×2 (10:04→23:12)
--- NOTE | 2016-10-28 10:11 | RAD ---
HISTORY: intubated COMPARISON: No prior. FINDINGS: LUNGS: No focal airspace opacity. PLEURA: No significant pleural effusion identified, no pneumothorax apparent. CARDIOVASCULAR: Normal. OSSEOUS STRUCTURES: No significant abnormalities. VISUALIZED UPPER ABDOMEN: Upper abdomen is suboptimally evaluated. OTHER FINDINGS: ET tube and feeding tube again seen. IMPRESSION: No focal airspace opacity.
[2016-10-28] MEDS ORDERED: Midazolam 2 MG/2 ML VIAL ONE (12:19)
--- NOTE | 2016-10-28 12:43 | PCM.SURG1 ---
Surgeon's Initial Post Op Note - Surgeon's Notes Surgeon: Dr. Almonte Business Intelligence Analyst: Dr. Domínguez, PGy2; Dr. Peres PGY3 Type of Anesthesia: General Endo Pre-Operative Diagnosis: Respiratory Failure, Intracranial Hemorrhage Operative Findings: same Post-Operative Diagnosis: same Operation Performed: Percutaneous Tracheostomy. Flexible Bronchoscopy Specimen/Specimens Removed: none Estimated Blood Loss: EBL {In ML}: 5 Blood Products Given: N/A Drains Used: No Drains Post-Op Condition: Good Date of Surgery/Procedure: 10/28/16 Time of Surgery/Procedure: 12:43
--- NOTE | 2016-10-28 12:44 | PCM.SURG1 ---
Surgeon's Initial Post Op Note - Surgeon's Notes Surgeon: Gage Tobacco Stemmer: Sang PGY2, PGY3 Type of Anesthesia: General Endo Pre-Operative Diagnosis: Intracranial hemorrhage Operative Findings: good trach placement Post-Operative Diagnosis: Intracranial hemorrhage Operation Performed: Percutaneous Tracheostomy, Broncoscopy Specimen/Specimens Removed: N/A Estimated Blood Loss: EBL {In ML}: 5 Blood Products Given: N/A Drains Used: No Drains Post-Op Condition: Good Date of Surgery/Procedure: 10/28/16 Time of Surgery/Procedure: 12:00
--- NOTE | 2016-10-28 15:23 | OP ---
PROCEDURE DATE: 10/28/2016 SURGEON: Dr. Johanna Almonte. SHELL MOLD BONDING MACHINE OPERATOR: Dr. Domínguez and Dr. Peres. ANESTHESIA: General, LAND SUR[employer]Y TECHNICIAN Georges and Dr. Castle. PREOPERATIVE DIAGNOSIS: Respiratory failure, intracranial hemorrhage. POSTOPERATIVE DIAGNOSIS: Respiratory failure, intracranial hemorrhage. PROCEDURE: Percutaneous tracheostomy with flexible bronchoscopy. DESCRIPTION OF OPERATION: With the patient on the bed in the supine position, a shoulder roll was pl aced to hyperextend the neck and the neck was prepped and draped in the usual sterile manner. The ar ea of the cricoid cartilage was palpated and the area of approximately the second tracheal ring was i dentified. The skin overlying this was infiltrated with 1.5% lidocaine with epinephrine and a small longitudinal incision was made in the midline. Under bronchoscopic vision, the needle was placed int o the trachea and the guidewire was passed followed by the small dilator. The small dilator was olga mona and the second larger dilator was passed over the guidewire and positioned at the black line at t he skin level to dilate the opening to the full size 8 mm diameter. When this had been placed, the d ilator was removed and the final dilator with the attached tracheostomy tube was then passed over the wire and small obturator and positioned in the trachea. Again, this was done under bronchoscopic vi joshua confirming intraluminal placement of the tube. The wire, obturator and dilator were removed and the cuff of the 8 mm Shiley tube was insufflated and the inner cannula placed and the ventilator att ached to the tracheostomy tube. Bronchoscopy was again performed via the tracheostomy again confirmi ng position well above the brisa and the right and left mainstem bronchi were each suctioned of a sm all amount of blood. The tracheostomy tube was connected. The tracheostomy tube was sutured in plac e with 2-0 silk sutures as well as tracheostomy tape and a dry sterile dressing was applied. The pat ient tolerated the procedure well and transferred back to the ICU in stable condition. Blood loss fo r the procedure was 5 mL. Johanna Almonte MD cc: 58 TT: 10/28/2016 15:22:45 tn
[2016-10-29 04:43] LABS: ABG MECHANICAL RATE 24; ARTERIAL BLOOD HGB O2 SAT 95.7 % (95.0-98.0); ATERIAL BLOOD GAS PEEP 5; CARBOXYHEMOGLOBIN 0.9 % (0.5-1.5); DRAW SITE RB; HHB 2.7 % (0.0-5.0); METHEMOGLOBIN 0.7 % (0.0-3.0)
[2016-10-29 06:50] LABS: WHITE BLOOD COUNT 14.8 K/uL (4.8-10.8)
[2016-10-29 07:08] LABS: CHLORIDE 113 mmol/L (98-107); SODIUM 151 mmol/L (132-148)
[2016-10-29 07:09] LABS: POTASSIUM 4.1 mmol/L (3.6-5.2)
[2016-10-29 07:10] LABS: GFR AFRICAN-AMERICAN > 60
[2016-10-29 07:11] LABS: ALB/GLOB RATIO 0.8 (1.0-2.1); ALKALINE PHOSPHATASE 101 U/L (38-126); ALT/SGPT 88 U/L (21-72); AST/SGOT 49 U/L (17-59); BILIRUBIN,TOTAL 0.5 mg/dL (0.2-1.3); BLOOD UREA NITROGEN 43 mg/dL (9-20); CARBON DIOXIDE 24 mmol/L (22-30); GLUCOSE,RANDOM 128 mg/dL (75-110); PHOSPHOROUS 4.2 mg/dL (2.5-4.5); TOTAL PROTEIN 6.7 g/dL (6.3-8.3)
[2016-10-29 07:12] LABS: MAGNESIUM 2.6 mg/dL (1.6-2.3)
[2016-10-29 07:13] LABS: BASO % 0.2 % (0.0-2.0); EOS # 0.1 K/uL (0.0-0.7); EOS % 0.9 % (0.0-4.0); HEMATOCRIT 35.1 % (35.0-51.0); LYMPH # 1.2 K/uL (1.0-4.3); MEAN CELL VOLUME 82.9 fL (80.0-94.0); MEAN CORPUSCULAR HEMOGLOBIN 26.7 pg (27.0-31.0); MEAN CORPUSCULAR HGB CONC 32.2 g/dL (33.0-37.0); MONO # 0.9 K/uL (0.0-0.8); MONO % 6.2 % (0.0-10.0); PLATELET COUNT 268 K/uL (130-400); RED CELL DISTRIBUTION WIDTH 14.2 % (11.5-14.5)
--- NOTE | 2016-10-29 08:25 | CP.PCM.PN ---
Subjective - Date & Time of Evaluation Date of Evaluation: 10/29/16 Time of Evaluation: 08:24 - Subjective Subjective: Gen Surg: Dr Almonte Pt S&E. s/p Trach POD#1. NAEO. Trach in good position. No air leak. No bleeding noted. will remove sutures POD#10 d/w Dr Almonte Objective - Vital Signs/Intake and Output Vital Signs (last 24 hours): Temp Pulse Resp BP Pulse Ox 99.3 F 95 H 18 132/86 97 10/29/16 08:00 10/29/16 08:00 10/29/16 08:00 10/29/16 07:35 10/29/16 08:00 Intake and Output: 10/29/16 10/29/16 06:59 18:59 Intake Total 650 130 Output Total 880 145 Balance -230 -15 - Medications Medications: Current Medications Acetaminophen (Tylenol 325mg Tab) 650 mg PO Q6 PRN PRN Reason: Fever >100.4 F Last Admin: 10/28/16 17:10 Dose: 650 mg Amlodipine Besylate (Norvasc) 10 mg PO DAILY [facility] Last Admin: 10/28/16 09:30 Dose: 10 mg Hydralazine HCl (Apresoline) 25 mg PO BID [facility] Last Admin: 10/26/16 09:49 Dose: 25 mg Cefepime HCl (Maxipime Iv 1 Gm Premix) 50 mls @ 100 mls/hr IVPB Q12H [facility] Last Admin: 10/28/16 23:12 Dose: 100 mls/hr Labetalol HCl (Trandate) 200 mg PO Q12 [facility] Last Admin: 10/28/16 21:03 Dose: 200 mg Losartan Potassium (Cozaar) 100 mg PO DAILY [facility] Last Admin: 10/28/16 09:30 Dose: 100 mg Pantoprazole Sodium (Protonix Susp) 40 mg PO DAILY [facility] Last Admin: 10/28/16 09:30 Dose: 40 mg - Labs Labs: 10/29/16 06:36 10/29/16 06:36 PT 14.2 SECONDS (9.7-12.2) H 10/28/16 05:59 INR 1.3 10/28/16 05:59 APTT 30 SECONDS (21-34) 10/28/16 05:59 - Constitutional Appears: Chronically Ill - ENT Exam Additional comments: trach in good position, c/d/i - Respiratory Exam Respiratory Exam: absent: Accessory Muscle Use, Respiratory Distress - Cardiovascular Exam Cardiovascular Exam: absent: Tachycardia
[2016-10-29 09:00] LABS: EOSINOPHIL 2 % (0-4); NEUTROPHIL 84 % (50-75); TOTAL CELLS COUNTED 100
[2016-10-29] MEDS: Pantoprazole 40 mg Susp UD PO SCH (09:39)
[2016-10-29] MEDS ORDERED: POLYETHYLENE GLYCOL 3350 17 GM/Dose PACKET PO ONE (10:15)
[2016-10-29] MEDS: Cefepime IV 1 gm in Dextrose 50 ML IVPB SCH ×2 (10:57→22:05)
--- NOTE | 2016-10-29 11:54 | RAD ---
HISTORY: s/p Tracheostomy COMPARISON: No prior. FINDINGS: LUNGS: Interval placement of a tracheotomy and tracheostomy tube placement which appears to be in good position. . In situ NGT, the tip of which overlies left upper quadrant of the abdomen. Opacity in the right lung base may represent atelectasis and or infiltrate PLEURA: No significant pleural effusion identified, no pneumothorax apparent. CARDIOVASCULAR: Normal. OSSEOUS STRUCTURES: No significant abnormalities. VISUALIZED UPPER ABDOMEN: Normal. OTHER FINDINGS: None. IMPRESSION: Interval a tracheotomy and placement of tracheostomy tube. In situ NGT. Atelectasis and or infiltrate right lung base.
--- NOTE | 2016-10-29 18:35 | RAD ---
HISTORY: intubated COMPARISON: Comparison chest 10/28/2016. FINDINGS: LUNGS: In situ tracheostomy tube remains in good position. Interval improvement previously noted patchy atelectasis and or infiltrate right lung base. PLEURA: No significant pleural effusion identified, no pneumothorax apparent. CARDIOVASCULAR: Normal. OSSEOUS STRUCTURES: No significant abnormalities. VISUALIZED UPPER ABDOMEN: Normal. OTHER FINDINGS: None. IMPRESSION: Interval improvement previously noted patchy atelectasis and or infiltrate right lung base. Tracheostomy tube remains in good position.
--- NOTE | 2016-10-29 18:41 | CP.PCM.PN ---
Subjective - Date & Time of Evaluation Date of Evaluation: 10/29/16 Time of Evaluation: 18:41 - Subjective Subjective: doing well post trach Objective - Vital Signs/Intake and Output Vital Signs (last 24 hours): Temp Pulse Resp BP Pulse Ox 99.6 F 88 19 137/89 96 10/29/16 16:00 10/29/16 18:36 10/29/16 18:36 10/29/16 18:36 10/29/16 18:36 Intake and Output: 10/29/16 10/29/16 06:59 18:59 Intake Total 650 1230 Output Total 880 715 Balance -230 515 - Medications Medications: Current Medications Acetaminophen (Tylenol 325mg Tab) 650 mg PO Q6 PRN PRN Reason: Fever >100.4 F Last Admin: 10/29/16 09:39 Dose: 650 mg Amlodipine Besylate (Norvasc) 10 mg PO DAILY [facility] Last Admin: 10/29/16 09:39 Dose: 10 mg Hydralazine HCl (Apresoline) 25 mg PO BID [facility] Last Admin: 10/26/16 09:49 Dose: 25 mg Cefepime HCl (Maxipime Iv 1 Gm Premix) 50 mls @ 100 mls/hr IVPB Q12H [facility] Last Admin: 10/29/16 10:57 Dose: 100 mls/hr Labetalol HCl (Trandate) 200 mg PO Q12 [facility] Last Admin: 10/29/16 09:39 Dose: 200 mg Losartan Potassium (Cozaar) 100 mg PO DAILY [facility] Last Admin: 10/29/16 09:39 Dose: 100 mg Pantoprazole Sodium (Protonix Susp) 40 mg PO DAILY [facility] Last Admin: 10/29/16 09:39 Dose: 40 mg - Labs Labs: 10/29/16 06:36 10/29/16 06:36 PT 14.2 SECONDS (9.7-12.2) H 10/28/16 05:59 INR 1.3 10/28/16 05:59 APTT 30 SECONDS (21-34) 10/28/16 05:59 - Constitutional Appears: Non-toxic, No Acute Distress - ENT Exam Additional comments: trach - Respiratory Exam Respiratory Exam: Clear to Ausculation Bilateral - Cardiovascular Exam Cardiovascular Exam: REGULAR RHYTHM, +S1, +S2 - GI/Abdominal Exam GI & Abdominal Exam: Soft, Normal Bowel Sounds. absent: Tenderness - Neurological Exam Neuro motor strength exam: Left Upper Extremity: 2/1, Right Upper Extremity: 0, Left Lower Extremity: 2/1, Right Lower Extremity: 0 Assessment and Plan - Assessment and Plan (Free Text) Assessment: This is a 56 yo M with a past medical history of hypertension and otherwise unknown past medical history presenting for medical evaluation of intracranial bleed. The patient arrived to the ED intubated. Patient remains intubated with unchanged clinical status. Trach and PEG discussed with family; awaiting final decision. Trach . PEG rescheduled due to time constraints. Plan: Neuro: Intubated Neurology consult - Dr. Simpson advise to schedule trach and PEG. Hold antiplatelets for 4-6 weeks and maintain blood pressure above 100 systolic. Sedation as needed 10/24 CT Head: little interval change in the size of left thalamic hemorrhage 2.4x2.9 cm with intraventricular extension of hemorrhage and mild obstructive hydrocephalus. 2 mm midline shift from left to right with no evidence of herniation. Near complete resolution of hemorrhage within 4th ventricle. 10/19 CT Head: little interval change in the known 2.0 x 2.7 acute hematoma in left thalamus with intra ventricular extension of hemorrhage. Interval mild worsening of obstructive hydrocephalus. 10/18 CT Head: Left basal ganglia acute hemorrhage, possibly hypertensive with associated intraventricular hemorrhage and mass effect upon the left lateral aspect of the 3rd ventricle with the tip shift of the 3rd ventricle towards the right side. No generalized midline shift. Air-fluid level in sphenoid sinus common nonspecific. Please correlate for concern regarding acute sinusitis. Mild involutional changes. GCS - 8T (E4 VT M4) TAZLINA II 10.0, 12% estimated non-operative mortality Cardio: Hypertension line placed 10/20/16 TLC left IJ @ 15 cm placed 10/19/16 Amlodipine 10 mg POQD Hydralazine 25 mg POBID Losartan 100 mg POQD Labetalol 200 mg PO Q12H Pulm: Intubated: FiO2 30 PEEP 5 Rate 24 TV 500ml CPAP trial s/p tracheostomy today ABG: -10/28 pH 7.46, CO2 35, O2 73, HCO3 25.9 -10/27 pH 7.49, CO2 33, O2 74, HCO3 26.5 -10/26 pH 7.5, CO2 32, O2 91, HCO3 26.6 -10/24 pH 7.47, CO2 35, O2 119, HCO3 26.5 -10/23 pH 7.47, CO2 33, O2 66, HCO3 25.5 -10/22 pH 7.52, CO2 33, O2 57, HCO3 28.1 -10/21 pH 7.48, CO2 38, O2 79, HCO3 28.5 -10/20 pH 7.46, CO2 37, O2 187 HCO3 26.9 -10/19 pH 7.46, CO2 38, O2 214, HCO3 27.4 Imaging 10/28 CXR No focal airspace opacity 10/27 CXR No active disease 10/26 CXR - Mild venous congestion. Right hilar prominence 10/24 CXR Mild venous congestion. Mild right infrahilar prominence 10/23 CXR - Mild venous congestion. right hilar prominence. Biapical pleural thickening upper lobe granulomatous changes. lines and tubes in stable position. 10/22 CXR - Worsening consolidative changes to right mid to lower lung zone. lines and tubes in stable position. 10/20 CXR - Distal tip of an endotracheal tube terminates approximately 4.6 cm above the brisa. Left IJ approach Central venous catheter terminates at expected location of the left innominate vein. Nasogastric tube extends to expected location of the stomach 10/19 CXR New nasogastric tube extends to distal esophagus, above the diaphragm. Repositioning is advised. ET tube unchanged. No infiltrate. 10/18 CXR ET tube proximal to brisa, no acute pulmonary pathology official read pending -f/u AM CXR and ABG Head of bed to 30* Keep O2 Sat >92% f/u General surgery consult for tracheostomy and PEG placement GI: NPO NGT was advanced 10/20 Patient is getting PEG today Endo: Maintain euglycemia Heme: H&H: 11.1/35.2 Intracranial bleed Contraindication for anticoagulation F/u AM CBC No coagulopathy ID: [id number] Sputum cx: Serratia marcescens and Enterobactor aerogenes 10/21 Sputum cx: Klebsiella pneumoniae Hold change of antibiotics. Fully aware of the low grade temperature, and increase in WBCs. Patient is hemodynamically stable. IV Cefepime 1 gram 50 cc @ 100cc/hr Acetaminophen 650 mg Q6 PRN for fever Renal: BUN/Cr: 44/1.4 MSK: OOBTC, PT Eval and treat Check PEG and tracheostomy site for drainage, erythema, hematoma, signs of infection. : I/O Balance- = 1060cc Dumas in place Maintain dumas care Prophylaxis: GI - Protonix 40 mg IVP daily DVT - contraindicated 2/2 to intracranial bleed
--- NOTE | 2016-10-29 18:42 | CP.PCM.PN ---
Subjective - Date & Time of Evaluation Date of Evaluation: 10/28/16 Time of Evaluation: 16:07 - Subjective Subjective: s/p trach today more awake opens eyes spont does not move right side at all Objective - Vital Signs/Intake and Output Vital Signs (last 24 hours): Temp Pulse Resp BP Pulse Ox 99.6 F 88 19 137/89 96 10/29/16 16:00 10/29/16 18:36 10/29/16 18:36 10/29/16 18:36 10/29/16 18:36 Intake and Output: 10/29/16 10/29/16 06:59 18:59 Intake Total 650 1230 Output Total 880 715 Balance -230 515 - Medications Medications: Current Medications Acetaminophen (Tylenol 325mg Tab) 650 mg PO Q6 PRN PRN Reason: Fever >100.4 F Last Admin: 10/29/16 09:39 Dose: 650 mg Amlodipine Besylate (Norvasc) 10 mg PO DAILY [facility] Last Admin: 10/29/16 09:39 Dose: 10 mg Hydralazine HCl (Apresoline) 25 mg PO BID [facility] Last Admin: 10/26/16 09:49 Dose: 25 mg Cefepime HCl (Maxipime Iv 1 Gm Premix) 50 mls @ 100 mls/hr IVPB Q12H [facility] Last Admin: 10/29/16 10:57 Dose: 100 mls/hr Labetalol HCl (Trandate) 200 mg PO Q12 [facility] Last Admin: 10/29/16 09:39 Dose: 200 mg Losartan Potassium (Cozaar) 100 mg PO DAILY [facility] Last Admin: 10/29/16 09:39 Dose: 100 mg Pantoprazole Sodium (Protonix Susp) 40 mg PO DAILY [facility] Last Admin: 10/29/16 09:39 Dose: 40 mg - Labs Labs: 10/29/16 06:36 10/29/16 06:36 PT 14.2 SECONDS (9.7-12.2) H 10/28/16 05:59 INR 1.3 10/28/16 05:59 APTT 30 SECONDS (21-34) 10/28/16 05:59 - Constitutional Appears: Non-toxic - Head Exam Head Exam: ATRAUMATIC - Eye Exam Additional comments: trach - Respiratory Exam Respiratory Exam: Clear to Ausculation Bilateral, NORMAL BREATHING PATTERN - Cardiovascular Exam Cardiovascular Exam: REGULAR RHYTHM, +S1, +S2 - GI/Abdominal Exam GI & Abdominal Exam: Soft. absent: Tenderness - Neurological Exam Neurological Exam: Alert, Awake. absent: Oriented x3 Neuro motor strength exam: Left Upper Extremity: 2/1, Right Upper Extremity: 0, Left Lower Extremity: 2/1, Right Lower Extremity: 0 Assessment and Plan - Assessment and Plan (Free Text) Assessment: This is a 56 yo M with a past medical history of hypertension and otherwise unknown past medical history presenting for medical evaluation of intracranial bleed. The patient arrived to the ED intubated. Patient remains intubated with unchanged clinical status. Trach and PEG discussed with family; awaiting final decision. Trach placed today. PEG rescheduled due to time constraints. Plan: Neuro: Intubated Neurology consult - Dr. Simpson advise to schedule trach and PEG. Hold antiplatelets for 4-6 weeks and maintain blood pressure above 100 systolic. Sedation as needed 10/24 CT Head: little interval change in the size of left thalamic hemorrhage 2.4x2.9 cm with intraventricular extension of hemorrhage and mild obstructive hydrocephalus. 2 mm midline shift from left to right with no evidence of herniation. Near complete resolution of hemorrhage within 4th ventricle. 10/19 CT Head: little interval change in the known 2.0 x 2.7 acute hematoma in left thalamus with intra ventricular extension of hemorrhage. Interval mild worsening of obstructive hydrocephalus. 10/18 CT Head: Left basal ganglia acute hemorrhage, possibly hypertensive with associated intraventricular hemorrhage and mass effect upon the left lateral aspect of the 3rd ventricle with the tip shift of the 3rd ventricle towards the right side. No generalized midline shift. Air-fluid level in sphenoid sinus common nonspecific. Please correlate for concern regarding acute sinusitis. Mild involutional changes. GCS - 8T (E4 VT M4) QUECHAN II 10.0, 12% estimated non-operative mortality Cardio: Hypertension line placed 10/20/16 TLC left IJ @ 15 cm placed 10/19/16 Amlodipine 10 mg POQD Hydralazine 25 mg POBID Losartan 100 mg POQD Labetalol 200 mg PO Q12H Pulm: Intubated: FiO2 30 PEEP 5 Rate 24 TV 500ml CPAP trial s/p tracheostomy today ABG: -10/28 pH 7.46, CO2 35, O2 73, HCO3 25.9 -10/27 pH 7.49, CO2 33, O2 74, HCO3 26.5 -10/26 pH 7.5, CO2 32, O2 91, HCO3 26.6 -10/24 pH 7.47, CO2 35, O2 119, HCO3 26.5 -10/23 pH 7.47, CO2 33, O2 66, HCO3 25.5 -10/22 pH 7.52, CO2 33, O2 57, HCO3 28.1 -10/21 pH 7.48, CO2 38, O2 79, HCO3 28.5 -10/20 pH 7.46, CO2 37, O2 187 HCO3 26.9 -10/19 pH 7.46, CO2 38, O2 214, HCO3 27.4 Imaging 10/28 CXR No focal airspace opacity 10/27 CXR No active disease 10/26 CXR - Mild venous congestion. Right hilar prominence 10/24 CXR Mild venous congestion. Mild right infrahilar prominence 10/23 CXR - Mild venous congestion. right hilar prominence. Biapical pleural thickening upper lobe granulomatous changes. lines and tubes in stable position. 10/22 CXR - Worsening consolidative changes to right mid to lower lung zone. lines and tubes in stable position. 10/20 CXR - Distal tip of an endotracheal tube terminates approximately 4.6 cm above the brisa. Left IJ approach Central venous catheter terminates at expected location of the left innominate vein. Nasogastric tube extends to expected location of the stomach 10/19 CXR New nasogastric tube extends to distal esophagus, above the diaphragm. Repositioning is advised. ET tube unchanged. No infiltrate. 10/18 CXR ET tube proximal to brisa, no acute pulmonary pathology official read pending -f/u AM CXR and ABG Head of bed to 30* Keep O2 Sat >92% f/u General surgery consult for tracheostomy and PEG placement GI: NPO NGT was advanced 10/20 Patient is getting PEG today Endo: Maintain euglycemia Heme: H&H: 11.1/35.2 Intracranial bleed Contraindication for anticoagulation F/u AM CBC No coagulopathy ID: 10/25 Sputum cx: Serratia marcescens and Enterobactor aerogenes 10/21 Sputum cx: Klebsiella pneumoniae Hold change of antibiotics. Fully aware of the low grade temperature, and increase in WBCs. Patient is hemodynamically stable. IV Cefepime 1 gram 50 cc @ 100cc/hr Acetaminophen 650 mg Q6 PRN for fever Renal: BUN/Cr: 44/1.4 MSK: OOBTC, PT Eval and treat Check PEG and tracheostomy site for drainage, erythema, hematoma, signs of infection. : I/O Balance- = 1060cc Dumas in place Maintain dumas care Prophylaxis: GI - Protonix 40 mg IVP daily DVT - contraindicated 2/2 to intracranial bleed
--- NOTE | 2016-10-30 07:51 | CP.PCM.PN ---
Subjective - Date & Time of Evaluation Date of Evaluation: 10/30/16 Time of Evaluation: 07:10 - Subjective Subjective: Gen Surg: Dr Almonte Pt S&E this AM, awake and alert, able to answer yes/no questions. FiO2 30%, Peep 5, RR 24, TV 500. Pt is s/p Trach POD#2. No air leak noted. No bleeding noted. Sutures to be removed on POD #10. Review of vitals is normal. d/w Dr Almonte Objective - Vital Signs/Intake and Output Vital Signs (last 24 hours): Temp Pulse Resp BP Pulse Ox 97.6 F 83 24 130/84 99 10/30/16 04:00 10/30/16 07:00 10/30/16 07:00 10/30/16 06:36 10/30/16 07:00 Intake and Output: 10/30/16 10/30/16 06:59 18:59 Intake Total 900 Output Total 830 Balance 70 - Medications Medications: Current Medications Acetaminophen (Tylenol 325mg Tab) 650 mg PO Q6 PRN PRN Reason: Fever >100.4 F Last Admin: 10/29/16 09:39 Dose: 650 mg Amlodipine Besylate (Norvasc) 10 mg PO DAILY [facility] Last Admin: 10/29/16 09:39 Dose: 10 mg Hydralazine HCl (Apresoline) 25 mg PO BID [facility] Last Admin: 10/26/16 09:49 Dose: 25 mg Cefepime HCl (Maxipime Iv 1 Gm Premix) 50 mls @ 100 mls/hr IVPB Q12H [facility] Last Admin: 10/29/16 22:05 Dose: 100 mls/hr Labetalol HCl (Trandate) 200 mg PO Q12 [facility] Last Admin: 10/29/16 21:28 Dose: 200 mg Losartan Potassium (Cozaar) 100 mg PO DAILY [facility] Last Admin: 10/29/16 09:39 Dose: 100 mg Pantoprazole Sodium (Protonix Susp) 40 mg PO DAILY [facility] Last Admin: 10/29/16 09:39 Dose: 40 mg - Labs Labs: 10/29/16 06:36 10/29/16 06:36 PT 14.2 SECONDS (9.7-12.2) H 10/28/16 05:59 INR 1.3 10/28/16 05:59 APTT 30 SECONDS (21-34) 10/28/16 05:59 - Constitutional Appears: No Acute Distress - Head Exam Head Exam: NORMOCEPHALIC - Eye Exam Eye Exam: Normal appearance - ENT Exam ENT Exam: Mucous Membranes Moist - Cardiovascular Exam Cardiovascular Exam: absent: Tachycardia - Skin Skin Exam: Dry, Normal Color, Warm
[2016-10-30 08:15] LABS: BASO # 0.1 K/uL (0.0-0.2); BASO % 0.5 % (0.0-2.0); EOS # 0.2 K/uL (0.0-0.7); EOS % 1.6 % (0.0-4.0); HEMATOCRIT 35.5 % (35.0-51.0); LYMPH # 1.5 K/uL (1.0-4.3); LYMPH % 9.7 % (20.0-40.0); MEAN CELL VOLUME 82.9 fL (80.0-94.0); MEAN CORPUSCULAR HEMOGLOBIN 26.3 pg (27.0-31.0); MEAN CORPUSCULAR HGB CONC 31.7 g/dL (33.0-37.0); MEAN PLATELET VOLUME 9.5 fL (7.2-11.7); MONO % 6.5 % (0.0-10.0); NRBC % 0.1 % (0.0-2.0); PLATELET COUNT 257 K/uL (130-400); RED CELL DISTRIBUTION WIDTH 14.6 % (11.5-14.5)
[2016-10-30 08:21] LABS: CHLORIDE 112 mmol/L (98-107)
[2016-10-30 08:22] LABS: POTASSIUM 4.1 mmol/L (3.6-5.2); SODIUM 150 mmol/L (132-148)
[2016-10-30 08:24] LABS: CARBON DIOXIDE 25 mmol/L (22-30); GFR AFRICAN-AMERICAN > 60
[2016-10-30 08:25] LABS: ALB/GLOB RATIO 0.8 (1.0-2.1); ALKALINE PHOSPHATASE 95 U/L (38-126); ALT/SGPT 83 U/L (21-72); AST/SGOT 45 U/L (17-59); BILIRUBIN,TOTAL 0.6 mg/dL (0.2-1.3); BLOOD UREA NITROGEN 39 mg/dL (9-20); CALCIUM 8.2 mg/dl (8.6-10.4); GLUCOSE,RANDOM 145 mg/dL (75-110); PHOSPHOROUS 4.4 mg/dL (2.5-4.5); TOTAL PROTEIN 6.7 g/dL (6.3-8.3)
[2016-10-30 08:26] LABS: MAGNESIUM 2.6 mg/dL (1.6-2.3)
[2016-10-30] MEDS: Pantoprazole 40 mg Susp UD PO SCH (09:55)
[2016-10-30 10:04] LABS: NEUTROPHIL 88 % (50-75); TOTAL CELLS COUNTED 100
[2016-10-30] MEDS: Cefepime IV 1 gm in Dextrose 50 ML IVPB SCH ×2 (10:04→23:07)
[2016-10-30 10:05] LABS: LARGE PLATELETS PRESENT
--- NOTE | 2016-10-30 11:14 | CP.PCM.PN ---
<PrashantPallavi - Last Filed: 10/30/16 11:11> Subjective - Date & Time of Evaluation Date of Evaluation: 10/30/16 Time of Evaluation: 11:11 - Subjective Subjective: Gastroenterology Fellow/PGY4 Progress Note Patient opens eyes spontaneously. Family notes patient is responsive to their conversation. Tracheostomy placed monday. Nursing denies any acute events overnight. A 12-point review of systems unable to be completed due to intubation and hemorrhagic stroke. Objective - Vital Signs/Intake and Output Vital Signs (last 24 hours): Temp Pulse Resp BP Pulse Ox 100.1 F H 86 20 123/77 95 10/30/16 08:00 10/30/16 10:36 10/30/16 10:36 10/30/16 10:36 10/30/16 10:36 Intake and Output: 10/30/16 10/30/16 06:59 18:59 Intake Total 900 430 Output Total 830 145 Balance 70 285 - Medications Medications: Current Medications Acetaminophen (Tylenol 325mg Tab) 650 mg PO Q6 PRN PRN Reason: Fever >100.4 F Last Admin: 10/29/16 09:39 Dose: 650 mg Amlodipine Besylate (Norvasc) 10 mg PO DAILY [facility] Last Admin: 10/30/16 10:05 Dose: Not Given Hydralazine HCl (Apresoline) 25 mg PO BID [facility] Last Admin: 10/26/16 09:49 Dose: 25 mg Cefepime HCl (Maxipime Iv 1 Gm Premix) 50 mls @ 100 mls/hr IVPB Q12H [facility] Last Admin: 10/30/16 10:04 Dose: 100 mls/hr Dextrose (Dextrose 5% In Water 1000 Ml) 1,000 mls @ 75 mls/hr IV .[id number] [facility] Labetalol HCl (Trandate) 200 mg PO Q12 [facility] Last Admin: 10/30/16 09:55 Dose: 200 mg Losartan Potassium (Cozaar) 100 mg PO DAILY [facility] Last Admin: 10/30/16 10:04 Dose: Not Given Pantoprazole Sodium (Protonix Susp) 40 mg PO DAILY [facility] Last Admin: 10/30/16 09:55 Dose: 40 mg - Labs Labs: 10/30/16 08:10 10/30/16 08:10 PT 14.2 SECONDS (9.7-12.2) H 10/28/16 05:59 INR 1.3 10/28/16 05:59 APTT 30 SECONDS (21-34) 10/28/16 05:59 - Constitutional Appears: Non-toxic, Chronically Ill - Head Exam Head Exam: ATRAUMATIC, NORMOCEPHALIC - Eye Exam Eye Exam: EOMI, PERRL Pupil Exam: PERRL. absent: Miosis, Mydriatic - ENT Exam ENT Exam: Mucous Membranes Moist, Normal Oropharynx - Neck Exam Neck Exam: Full ROM, Normal Inspection - Respiratory Exam Respiratory Exam: Clear to Ausculation Bilateral. absent: Rales, Rhonchi, Wheezes - Cardiovascular Exam Cardiovascular Exam: RRR, +S1, +S2. absent: Gallop, Rubs - GI/Abdominal Exam GI & Abdominal Exam: Soft, Normal Bowel Sounds. absent: Distended, Firm, Guarding, Rigid, Tenderness, Mass, Organomegaly, Rebound - Extremities Exam Extremities Exam: absent: Pedal Edema - Neurological Exam Additional comments: intubated, EOMI, PERRL, downgoing left Babinski, equivocal Right Babinski - Psychiatric Exam Additional comments: intubated, unable to assess - Skin Skin Exam: Dry, Intact, Normal Color, Warm Assessment and Plan - Assessment and Plan (Free Text) Assessment: 56 year old male with prior medical history of hypertension presenting after being found down and intubated by EMS in the field. History obtained by record review and ICU team requesting GI consultation for PEG placement evaluation. 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 Plan: >discussion held with family at bedside - agree with continued plan for PEG placement Monday >counselled on risks vs benefit of PEG placement to family, with expressing understanding >consent on chart from >hold OGT tube feeds after midnight >NPO after midnight >ensure electrolytes stable prior to procedure >Na goal 145 >further recommendations after PEG placement <Johnson Collier MD - Last Filed: 10/30/16 13:26> Objective - Vital Signs/Intake and Output Vital Signs (last 24 hours): Temp Pulse Resp BP Pulse Ox 99.6 F 85 20 127/80 99 10/30/16 12:00 10/30/16 12:00 10/30/16 12:00 10/30/16 11:36 10/30/16 12:00 Intake and Output: 10/30/16 10/30/16 06:59 18:59 Intake Total 900 605 Output Total 830 205 Balance 70 400 - Medications Medications: Current Medications Acetaminophen (Tylenol 325mg Tab) 650 mg PO Q6 PRN PRN Reason: Fever >100.4 F Last Admin: 10/29/16 09:39 Dose: 650 mg Amlodipine Besylate (Norvasc) 10 mg PO DAILY [facility] Last Admin: 10/30/16 10:05 Dose: Not Given Hydralazine HCl (Apresoline) 25 mg PO BID [facility] Last Admin: 10/26/16 09:49 Dose: 25 mg Cefepime HCl (Maxipime Iv 1 Gm Premix) 50 mls @ 100 mls/hr IVPB Q12H [facility] Last Admin: 10/30/16 10:04 Dose: 100 mls/hr Dextrose (Dextrose 5% In Water 1000 Ml) 1,000 mls @ 75 mls/hr IV .[id number] [facility] Last Admin: 10/30/16 11:16 Dose: 75 mls/hr Labetalol HCl (Trandate) 200 mg PO Q12 [facility] Last Admin: 10/30/16 09:55 Dose: 200 mg Losartan Potassium (Cozaar) 100 mg PO DAILY [facility] Last Admin: 10/30/16 10:04 Dose: Not Given Pantoprazole Sodium (Protonix Susp) 40 mg PO DAILY [facility] Last Admin: 10/30/16 09:55 Dose: 40 mg - Labs Labs: 10/30/16 08:10 10/30/16 08:10 PT 14.2 SECONDS (9.7-12.2) H 10/28/16 05:59 INR 1.3 10/28/16 05:59 APTT 30 SECONDS (21-34) 10/28/16 05:59 Attending/Attestation - Attestation I have personally seen and examined this patient.: Yes I have fully participated in the care of the patient.: Yes I have reviewed all pertinent clinical information, including history, physical exam and plan: Yes Notes (Text): 10/30/16 13:24 Patient seen and examined at bedside with Gi fellow. This is a 56 year old male with prior medical history of hypertension intubated on the field with intracerebral hemorrhagic stroke. Gi consulted for PEG placement. s/p trach placement. Has low grade fever for past 24 hours with Na 150. Will need metabolic stability prior to procedure. NPO past midnight. Hold OGT feeds and tentative PEG placement tomorrow am. Discussed with son and daughter at the bedside in MICU.
[2016-10-30] MEDS: Sodium Chloride 0.45% 1,000 ML IV SCH ×2 (16:03→23:07)
--- NOTE | 2016-10-30 22:40 | CP.PCM.PN ---
<Sebastián Kate - Last Filed: 10/30/16 22:36> Subjective - Date & Time of Evaluation Date of Evaluation: 10/30/16 Time of Evaluation: 09:00 - Subjective Subjective: Medicine Note- Hospitalist Service Patient was seen and examined at bedside. Daughter was at bedside. Patient was awake and alert, unable to speak. However with daughter translating, patient is able to follow commands and responds with nodding his head. Peg tube placement for tomorrow. No events overnight, per nursing. Objective - Vital Signs/Intake and Output Vital Signs (last 24 hours): Temp Pulse Resp BP Pulse Ox 98.4 F 80 24 133/94 H 100 10/30/16 20:00 10/30/16 22:00 10/30/16 22:00 10/30/16 21:56 10/30/16 22:00 Intake and Output: 10/30/16 10/31/16 18:59 06:59 Intake Total 1785 175 Output Total 900 Balance 885 175 - Medications Medications: Current Medications Acetaminophen (Tylenol 325mg Tab) 650 mg PO Q6 PRN PRN Reason: Fever >100.4 F Last Admin: 10/30/16 16:03 Dose: 650 mg Amlodipine Besylate (Norvasc) 10 mg PO DAILY [facility] Last Admin: 10/30/16 10:05 Dose: Not Given Hydralazine HCl (Apresoline) 25 mg PO BID [facility] Last Admin: 10/26/16 09:49 Dose: 25 mg Cefepime HCl (Maxipime Iv 1 Gm Premix) 50 mls @ 100 mls/hr IVPB Q12H [facility] Last Admin: 10/30/16 10:04 Dose: 100 mls/hr Sodium Chloride (Sodium Chloride 0.45%) 1,000 mls @ 125 mls/hr IV .Q8H [facility] Last Admin: 10/30/16 16:03 Dose: 125 mls/hr Labetalol HCl (Trandate) 200 mg PO Q12 [facility] Last Admin: 10/30/16 21:09 Dose: 200 mg Losartan Potassium (Cozaar) 100 mg PO DAILY [facility] Last Admin: 10/30/16 10:04 Dose: Not Given Pantoprazole Sodium (Protonix Susp) 40 mg PO DAILY [facility] Last Admin: 10/30/16 09:55 Dose: 40 mg - Labs Labs: 10/30/16 08:10 10/30/16 08:10 PT 14.2 SECONDS (9.7-12.2) H 10/28/16 05:59 INR 1.3 10/28/16 05:59 APTT 30 SECONDS (21-34) 10/28/16 05:59 - Constitutional Appears: Non-toxic, No Acute Distress - Head Exam Head Exam: ATRAUMATIC, NORMAL INSPECTION, NORMOCEPHALIC - Eye Exam Pupil Exam: NORMAL ACCOMODATION - ENT Exam ENT Exam: Mucous Membranes Moist - Respiratory Exam Respiratory Exam: Clear to Ausculation Bilateral, NORMAL BREATHING PATTERN. absent: Rales, Rhonchi, Wheezes, Respiratory Distress - Cardiovascular Exam Cardiovascular Exam: REGULAR RHYTHM, +S1, +S2 - GI/Abdominal Exam GI & Abdominal Exam: Soft, Normal Bowel Sounds. absent: Tenderness, Diminished Bowel Sounds, Hypoactive Bowel Sounds - Extremities Exam Extremities Exam: Normal Capillary Refill, Normal Inspection - Neurological Exam Neurological Exam: Alert, Awake, CN II-XII Intact, Oriented x3 Neuro motor strength exam: Left Upper Extremity: 3, Right Upper Extremity: 2/1, Left Lower Extremity: 2/1, Right Lower Extremity: 2/1 - Psychiatric Exam Psychiatric exam: Normal Affect, Normal Mood - Skin Skin Exam: Dry, Intact, Normal Color, Warm Assessment and Plan - Assessment and Plan (Free Text) Assessment: This is a 56 yo M with a past medical history of hypertension and otherwise unknown past medical history presenting for medical evaluation of intracranial bleed. The patient arrived to the ED intubated. Patient remains intubated with unchanged clinical status. s/p Trach placement. PEG discussed with family; Plan: Neuro: Intubated Neurology consult - Dr. Simpson advise to schedule trach and PEG. Hold antiplatelets for 4-6 weeks and maintain blood pressure above 100 systolic. Sedation as needed 10/24 CT Head: little interval change in the size of left thalamic hemorrhage 2.4x2.9 cm with intraventricular extension of hemorrhage and mild obstructive hydrocephalus. 2 mm midline shift from left to right with no evidence of herniation. Near complete resolution of hemorrhage within 4th ventricle. 10/19 CT Head: little interval change in the known 2.0 x 2.7 acute hematoma in left thalamus with intra ventricular extension of hemorrhage. Interval mild worsening of obstructive hydrocephalus. 10/18 CT Head: Left basal ganglia acute hemorrhage, possibly hypertensive with associated intraventricular hemorrhage and mass effect upon the left lateral aspect of the 3rd ventricle with the tip shift of the 3rd ventricle towards the right side. No generalized midline shift. Air-fluid level in sphenoid sinus common nonspecific. Please correlate for concern regarding acute sinusitis. Mild involutional changes. GCS - 8T (E4 VT M4) SITKA II 10.0, 12% estimated non-operative mortality Cardio: Hypertension line placed 10/20/16 TLC left IJ @ 15 cm placed 10/19/16 Amlodipine 10 mg POQD Hydralazine 25 mg POBID Losartan 100 mg POQD Labetalol 200 mg PO Q12H Pulm: CPAP trial s/p tracheostomy ABG: -10/28 pH 7.46, CO2 35, O2 73, HCO3 25.9 -10/27 pH 7.49, CO2 33, O2 74, HCO3 26.5 -10/26 pH 7.5, CO2 32, O2 91, HCO3 26.6 -10/24 pH 7.47, CO2 35, O2 119, HCO3 26.5 -10/23 pH 7.47, CO2 33, O2 66, HCO3 25.5 -10/22 pH 7.52, CO2 33, O2 57, HCO3 28.1 -10/21 pH 7.48, CO2 38, O2 79, HCO3 28.5 -10/20 pH 7.46, CO2 37, O2 187 HCO3 26.9 -10/19 pH 7.46, CO2 38, O2 214, HCO3 27.4 Imaging 10/28 CXR No focal airspace opacity 10/27 CXR No active disease 10/26 CXR - Mild venous congestion. Right hilar prominence 10/24 CXR Mild venous congestion. Mild right infrahilar prominence 10/23 CXR - Mild venous congestion. right hilar prominence. Biapical pleural thickening upper lobe granulomatous changes. lines and tubes in stable position. 10/22 CXR - Worsening consolidative changes to right mid to lower lung zone. lines and tubes in stable position. 10/20 CXR - Distal tip of an endotracheal tube terminates approximately 4.6 cm above the brisa. Left IJ approach Central venous catheter terminates at expected location of the left innominate vein. Nasogastric tube extends to expected location of the stomach 10/19 CXR New nasogastric tube extends to distal esophagus, above the diaphragm. Repositioning is advised. ET tube unchanged. No infiltrate. 10/18 CXR ET tube proximal to brisa, no acute pulmonary pathology official read pending -f/u AM CXR and ABG Head of bed to 30* Keep O2 Sat >92% f/u General surgery consult for tracheostomy and PEG placement GI: NPO after MN for peg tube placement tomorrow NGT was advanced 10/20 Consulted GI- Dr. Renteria Endo: Maintain euglycemia Heme: H&H: 11.2/35.5 Intracranial bleed Contraindication for anticoagulation F/u AM CBC No coagulopathy ID: [id number] Sputum cx: Serratia marcescens and Enterobactor aerogenes 10/21 Sputum cx: Klebsiella pneumoniae Hold change of antibiotics. Fully aware of the low grade temperature, and increase in WBCs. Patient is hemodynamically stable. IV Cefepime 1 gram 50 cc @ 100cc/hr Acetaminophen 650 mg Q6 PRN for fever Renal: BUN/Cr: 39/1.3. Improving Na- 150 today. Started on 08/15 NS @ 100cc/hr MSK: OOBTC, PT Eval and treat Check tracheostomy site for drainage, erythema, hematoma, signs of infection. : I/O Balance- = 1060cc Dumas in place Maintain dumas care Prophylaxis: GI - Protonix 40 mg IVP daily DVT - contraindicated 09/15 to intracranial bleed <Hussein Carrero - Last Filed: 11/22/16 22:28> Objective - Vital Signs/Intake and Output Vital Signs (last 24 hours): Temp Pulse Resp BP Pulse Ox 98.4 F 80 20 125/71 100 11/22/16 16:00 11/22/16 16:13 11/22/16 16:00 11/22/16 16:00 11/22/16 16:00 Intake and Output: 11/22/16 11/23/16 18:59 06:59 Output Total 600 Balance -600 - Medications Medications: Current Medications Acetaminophen (Tylenol 325mg Tab) 650 mg PO Q6 PRN PRN Reason: Fever >100.4 F Last Admin: 11/22/16 11:00 Dose: 650 mg Acetylcysteine (Acetylcysteine 20%) 4 ml INH Q6H [facility] Last Admin: 11/22/16 19:30 Dose: 4 ml Albuterol Sulfate (Albuterol 0.083% Inhal Kim (2.5 Mg/3 Ml) Ud) 2.5 mg INH RQ6 [facility] Last Admin: 11/22/16 19:30 Dose: 2.5 mg Amlodipine Besylate (Norvasc) 5 mg PO DAILY [facility] Last Admin: 11/22/16 11:00 Dose: 5 mg Aspirin (Aspirin Chewable) 81 mg GT DAILY [facility] Last Admin: 11/22/16 11:00 Dose: 81 mg Fluconazole (Diflucan Iv 200 Mg/100 Ml Ns) 100 mls @ 100 mls/hr IVPB Q24H [facility] Last Admin: 11/22/16 20:00 Dose: 100 mls/hr Pantoprazole Sodium (Protonix Susp) 40 mg PO DAILY [facility] Last Admin: 11/22/16 11:00 Dose: 40 mg Rosuvastatin Calcium (Crestor) 5 mg GT HS [facility] Last Admin: 11/22/16 21:39 Dose: 5 mg Saccharomyces Boulardii (Florastor) 250 mg PO BID [facility] Last Admin: 11/22/16 17:40 Dose: 250 mg - Labs Labs: 11/20/16 05:57 11/20/16 05:57 PT 12.9 SECONDS (9.7-12.2) H 11/15/16 13:58 INR 1.2 11/15/16 13:58 APTT 39 SECONDS (21-34) H 11/15/16 13:58 Assessment and Plan (1) Intracranial hemorrhage Status: Acute (2) CVA (cerebral vascular accident) Status: Acute (3) Pneumonia Status: Acute Attending/Attestation - Attestation I have personally seen and examined this patient.: Yes I have fully participated in the care of the patient.: Yes I have reviewed all pertinent clinical information, including history, physical exam and plan: Yes
[2016-10-31 06:36] LABS: BASO % 0.1 % (0.0-2.0); EOS # 0.3 K/uL (0.0-0.7); EOS % 1.5 % (0.0-4.0); LYMPH # 1.3 K/uL (1.0-4.3); LYMPH % 7.4 % (20.0-40.0); MEAN CELL VOLUME 82.7 fL (80.0-94.0); MEAN CORPUSCULAR HGB CONC 31.5 g/dL (33.0-37.0); MEAN PLATELET VOLUME 9.8 fL (7.2-11.7); MONO % 5.9 % (0.0-10.0); PLATELET COUNT 266 K/uL (130-400); RED CELL DISTRIBUTION WIDTH 13.9 % (11.5-14.5); WHITE BLOOD COUNT 17.9 K/uL (4.8-10.8)
[2016-10-31 06:45] LABS: CHLORIDE 108 mmol/L (98-107)
[2016-10-31 06:46] LABS: SODIUM 145 mmol/L (132-148)
[2016-10-31 06:47] LABS: POTASSIUM 4.3 mmol/L (3.6-5.2)
[2016-10-31 06:49] LABS: ALB/GLOB RATIO 0.8 (1.0-2.1); ALKALINE PHOSPHATASE 94 U/L (38-126); ALT/SGPT 87 U/L (21-72); AST/SGOT 55 U/L (17-59); BILIRUBIN,TOTAL 0.6 mg/dL (0.2-1.3); BLOOD UREA NITROGEN 36 mg/dL (9-20); CALCIUM 7.8 mg/dl (8.6-10.4); CARBON DIOXIDE 26 mmol/L (22-30); GFR AFRICAN-AMERICAN > 60; GLUCOSE,RANDOM 106 mg/dL (75-110); TOTAL PROTEIN 6.4 g/dL (6.3-8.3)
[2016-10-31 07:00] LABS: INR 1.3
--- NOTE | 2016-10-31 07:16 | CP.CCUPN ---
CCU Subjective - Physician Review Subjective (Free Text): 10/24/16 21:01 Patient seen and examined at bedside. The patient appears to be in no acute distress with no noteworthy events per nursing. The patient had a fever over the weekend. Sputum cultures were positive for Klebsiella. Patient is on IV Avelox. The patient is intubated (FiO2 30 PEEP 5 RATE 24 TV 500ml, Peak 24). Patient is able to open eyes spontaneously and track with his eyes. Patient has weak movement with his left upper and lower extremities. Digits on left foot has spastic movements. Patient has minimal movement of right extremities and reacts to painful stimuli. Patient unable to comply wt ROS at this time due to clinical status. 10/25/16 17:23 Patient seen and examined at bedside in no acute distress. There were no noteworthy events per nursing. Patient has nonpurposeful movements in his left upper and lower extremities. Digits on left foot has spastic movements. Patient has minimal movement of right extremities and occasionally reacts to painful stimuli. Patient unable to comply with ROS at this time due to clinical status. 10/26/16 17:21 Patient seen and examined bedside in no acute distress. The patient is intubated (FiO2 30 PEEP 5 RATE 24 TV 500ml, Peak 24). Patient opens eyes spontaneously. Patient has weak movement with his left upper and lower extremities. Digits on left foot has spastic movements. Patient has minimal movement of right extremities and reacts to painful stimuli. Patient unable to comply with ROS at this time due to clinical status. 10/27/16 17:02 Patient seen and examined at beside in no acute distress. Patient is intubated ( FiO2 30 PEEP 5 RATE 24 TV 500 ml, Peak ). There were no noteworthy events per nursing. Patient has horizontal nystagmus and intermittently opens eyes when addressed/stimulated. Patient has nonpurposeful movements of left extremities. Patient has minimal movement of right extremities. Patient is unable to comply with ROS at this time due to clinical status. 10/28/16 22:38 Patient seen and examined at beside in no acute distress. Patient is intubated ( FiO2 30 PEEP 5 RATE 24 TV 500 ml). Patient tolerated CPAP yesterday. There were no noteworthy events per nursing. Patient is noted to open eyes spontaneously, and nod in response to questions. He is moving his left upper and lower extremities on his own. GCS 10T ([id number]). Patient received a percutaneous tracheostomy today. Resting in bed. PEG procedure postponed for another time. An ROS could not be obtained due to clinical status. CCU Objective - Vital Signs / Intake & Output Vital Signs (Last 4 hours): Vital Signs Temp Pulse Resp BP Pulse Ox 10/31/16 07:00 82 11 L 100 10/31/16 06:36 79 25 H 135/93 H 100 10/31/16 06:25 93 H 15 100 10/31/16 06:00 80 24 100 10/31/16 05:36 82 24 138/92 H 10/31/16 05:17 82 17 100 10/31/16 05:00 83 10 L 100 10/31/16 04:44 77 24 127/79 10/31/16 04:02 81 19 100 10/31/16 04:00 98 F 79 21 100 10/31/16 03:37 90 21 108/76 97 Intake and Output (Last 8hrs): Intake & Output 10/30/16 10/31/16 10/31/16 22:59 06:59 14:59 Intake Total 1075 2000 Output Total 900 800 Balance 175 1200 Weight 140 lb Intake: Intake, IV Amount 525 1550 Right Forearm 525 1550 Oral 300 Tube Feeding 250 250 Other 200 Output: Urine 900 800 Urethral (Plaza) 900 800 Other: # Bowel Movements 0 1 - Physical Exam Head: Positive for: Atraumatic, Normocephalic Pupils: Positive for: PERRL (minimal reactivity, intact corneal reflex), Other ( some spontaneous eye movements) Extroacular Muscles: Positive for: EOMI Conjunctiva: Positive for: Normal Ears: Positive for: Normal Mouth: Positive for: Moist Mucous Membranes Pharnyx: Positive for: Other (cough and gag reflex intact) Nose (External): Positive for: Atraumatic Respiratory/Chest: Positive for: Clear to Auscultation, Good Air Exchange. Negative for: Respiratory Distress, Accessory Muscle Use Cardiovascular: Positive for: Regular Rate and Rhythm, Normal S1, S2. Negative for: Murmurs Abdomen: Positive for: Normal Bowel Sounds. Negative for: Tenderness, Distention, Peritoneal Signs Upper Extremity: Positive for: Normal Inspection. Negative for: Cyanosis, Edema Lower Extremity: Positive for: Normal Inspection. Negative for: Edema Neurological: Positive for: Other (minimal 0-1/5 strength R extremities, (-) Babinski B/L, no response to pain right extremities; some response in left extremitied. left sided respones are nonpurposeful and increased in comparison to the right side) Skin: Positive for: Warm, Dry, Normal Color. Negative for: Rashes Psychiatric: Positive for: Alert - Medications Active Medications: Active Medications Generic Name Dose Route Start Last Admin Trade Name Freq PRN Reason Stop Dose Admin Acetaminophen 650 mg 10/21/16 20:56 10/30/16 16:03 Tylenol 325mg Tab PO 650 mg Q6 PRN Administration Fever >100.4 F Amlodipine Besylate 10 mg 10/22/16 13:45 10/30/16 10:05 Norvasc PO Not Given DAILY [facility] Hydralazine HCl 25 mg 10/24/16 10:00 10/26/16 09:49 Apresoline PO 25 mg BID [facility] Administration Cefepime HCl 50 mls @ 100 mls/hr 10/27/16 23:00 10/30/16 23:07 Maxipime Iv 1 Gm Premix IVPB 100 mls/hr Q12H [facility] Administration Sodium Chloride 1,000 mls @ 125 mls/hr 10/30/16 15:00 10/30/16 23:07 Sodium Chloride 0.45% IV 125 mls/hr .Q8H [facility] Administration Labetalol HCl 200 mg 10/24/16 10:00 10/30/16 21:09 Trandate PO 200 mg Q12 [facility] Administration Losartan Potassium 100 mg 10/24/16 10:00 10/30/16 10:04 Cozaar PO Not Given DAILY [facility] Pantoprazole Sodium 40 mg 10/23/16 10:00 10/30/16 09:55 Protonix Susp PO 40 mg DAILY [facility] Administration - Patient Studies Lab Studies: Microbiology Studies 10/25/16 16:07 Blood Culture - Final Blood-Venous NO GROWTH AFTER 5 DAYS Gram Stain - Final TEST NOT PERFORMED 10/25/16 16:07 Blood Culture - Final Blood-Venous NO GROWTH AFTER 5 DAYS Gram Stain - Final TEST NOT PERFORMED Lab Studies 10/31/16 10/30/16 Range/Units 06:21 08:10 WBC 17.9 H 15.0 H (4.8-10.8) K/uL RBC 4.23 L 4.28 L (4.40-5.90) Mil/uL Hgb 11.0 L 11.2 L (12.0-18.0) g/dL Hct 35.0 35.5 (35.0-51.0) % MCV 82.7 82.9 (80.0-94.0) fL MCH 26.0 L 26.3 L (27.0-31.0) pg MCHC 31.5 L 31.7 L (33.0-37.0) g/dL RDW 13.9 14.6 H (11.5-14.5) % Plt Count 266 257 (130-400) K/uL MPV 9.8 9.5 (7.2-11.7) fL Neut % (Auto) 85.1 H 81.7 H (50.0-75.0) % Lymph % (Auto) 7.4 L 9.7 L (20.0-40.0) % [place] % (Auto) 5.9 6.5 (0.0-10.0) % Eos % (Auto) 1.5 1.6 (0.0-4.0) % Baso % (Auto) 0.1 0.5 (0.0-2.0) % Neut # 15.2 H 12.3 H (1.8-7.0) K/uL Lymph # 1.3 1.5 (1.0-4.3) K/uL [place] # 1.0 H 1.0 H (0.0-0.8) K/uL Eos # 0.3 0.2 (0.0-0.7) K/uL Baso # 0.0 0.1 (0.0-0.2) K/uL Neutrophils % (Manual) 88 H (50-75) % Band Neutrophils % 1 (0-2) % Lymphocytes % (Manual) 7 L (20-40) % Monocytes % (Manual) 4 (0-10) % Platelet Estimate Normal (NORMAL) Large Platelets Present Hypochromasia (manual) Slight Poikilocytosis (manual Slight Anisocytosis (manual) Slight Tear Drop Cells Slight Ovalocytes Slight Schistocytes Slight Sodium 145 150 H (132-148) mmol/L Potassium 4.3 4.1 (3.6-5.2) mmol/L Chloride 108 H 112 H (98-107) mmol/L Carbon Dioxide 26 25 (22-30) mmol/L Anion Gap 15 16 (10-20) BUN 36 H 39 H (9-20) mg/dL Creatinine 1.1 1.3 (0.8-1.5) MG/DL Est GFR ( Amer) > 60 > 60 Est GFR (Non-Af Amer) > 60 57 Random Glucose 106 145 H (75-110) mg/dL Calcium 7.8 L 8.2 L (8.6-10.4) mg/dl Phosphorus 4.4 (2.5-4.5) mg/dL Magnesium 2.6 H (1.6-2.3) mg/dL Total Bilirubin 0.6 0.6 (0.2-1.3) mg/dL AST 55 45 (17-59) U/L ALT 87 H 83 H (21-72) U/L Alkaline Phosphatase 94 95 (38-126) U/L Total Protein 6.4 6.7 (6.3-8.3) g/dL Albumin 2.8 L 2.9 L (3.5-5.0) g/dL Globulin 3.5 3.8 (2.2-3.9) gm/dL Albumin/Globulin Ratio 0.8 L 0.8 L (1.0-2.1) Laboratory Results - last 24 hr 10/30/16 10/31/16 08:10 06:21 WBC 15.0 H 17.9 H RBC 4.28 L 4.23 L Hgb 11.2 L 11.0 L Hct 35.5 35.0 MCV 82.9 82.7 MCH 26.3 L 26.0 L MCHC 31.7 L 31.5 L RDW 14.6 H 13.9 Plt Count 257 266 MPV 9.5 9.8 Neut % (Auto) 81.7 H 85.1 H Lymph % (Auto) 9.[address] [place] % (Auto) 6.5 5.9 Eos % (Auto) 1.6 1.5 Baso % (Auto) 0.5 0.1 Neut # 12.3 H 15.2 H Lymph # 1.[address] [place] # 1.0 H 1.0 H Eos # 0.2 0.3 Baso # 0.1 0.0 Neutrophils % (Manual) 88 H Band Neutrophils % 1 Lymphocytes % (Manual) 7 L Monocytes % (Manual) 4 Platelet Estimate Normal Large Platelets Present Hypochromasia (manual) Slight Poikilocytosis (manual Slight Anisocytosis (manual) Slight Tear Drop Cells Slight Ovalocytes Slight Schistocytes Slight Sodium 150 H 145 Potassium 4.1 4.3 Chloride 112 H 108 H Carbon Dioxide 25 26 Anion Gap 16 15 BUN 39 H 36 H Creatinine 1.3 1.1 Est GFR ( Amer) > 60 > 60 Est GFR (Non-Af Amer) 57 > 60 Random Glucose 145 H 106 Calcium 8.2 L 7.8 L Phosphorus 4.4 Magnesium 2.6 H Total Bilirubin 0.6 0.6 AST 45 55 ALT 83 H 87 H Alkaline Phosphatase 95 94 Total Protein 6.7 6.4 Albumin 2.9 L 2.8 L Globulin 3.8 3.5 Albumin/Globulin Ratio 0.8 L 0.8 L Fingerstick Blood Sugar Results: 139 Critical Care Progress Note - Nutrition Nutrition: Nutrition Category Date Time Status NPO Diet [DIET] Diets 10/31/16 Breakfast Active
[2016-10-31] MEDS: Sodium Chloride 0.45% 1,000 ML IV SCH (08:25)
[2016-10-31] MEDS: Pantoprazole 40 mg Susp UD PO SCH (09:26)
[2016-10-31 09:40] LABS: NEUTROPHIL 85 % (50-75); TOTAL CELLS COUNTED 100
--- NOTE | 2016-10-31 09:43 | CP.CCUPN ---
<AnatolyLyndaandrew - Last Filed: 10/31/16 13:37> CCU Subjective - Physician Review Subjective (Free Text): 10/24/16 21:01 Patient seen and examined at bedside. The patient appears to be in no acute distress with no noteworthy events per nursing. The patient had a fever over the weekend. Sputum cultures were positive for Klebsiella. Patient is on IV Avelox. The patient is intubated (FiO2 30 PEEP 5 RATE 24 TV 500ml, Peak 24). Patient is able to open eyes spontaneously and track with his eyes. Patient has weak movement with his left upper and lower extremities. Digits on left foot has spastic movements. Patient has minimal movement of right extremities and reacts to painful stimuli. Patient unable to comply wth ROS at this time due to clinical status. 10/25/16 17:23 Patient seen and examined at bedside in no acute distress. There were no noteworthy events per nursing. Patient has nonpurposeful movements in his left upper and lower extremities. Digits on left foot has spastic movements. Patient has minimal movement of right extremities and occasionally reacts to painful stimuli. Patient unable to comply with ROS at this time due to clinical status. 10/26/16 17:21 Patient seen and examined bedside in no acute distress. The patient is intubated (FiO2 30 PEEP 5 RATE 24 TV 500ml, Peak 24). Patient opens eyes spontaneously. Patient has weak movement with his left upper and lower extremities. Digits on left foot has spastic movements. Patient has minimal movement of right extremities and reacts to painful stimuli. Patient unable to comply with ROS at this time due to clinical status. 10/27/16 17:02 Patient seen and examined at beside in no acute distress. Patient is intubated ( FiO2 30 PEEP 5 RATE 24 TV 500 ml, Peak ). There were no noteworthy events per nursing. Patient has horizontal nystagmus and intermittently opens eyes when addressed/stimulated. Patient has nonpurposeful movements of left extremities. Patient has minimal movement of right extremities. Patient is unable to comply with ROS at this time due to clinical status. 10/28/16 22:38 Patient seen and examined at beside in no acute distress. Patient is intubated ( FiO2 30 PEEP 5 RATE 24 TV 500 ml). Patient tolerated CPAP yesterday. There were no noteworthy events per nursing. Patient is noted to open eyes spontaneously, and nod in response to questions. He is moving his left upper and lower extremities on his own. GCS 10T ([id number]). Patient received a percutaneous tracheostomy today. Resting in bed. PEG procedure postponed for another time. An ROS could not be obtained due to clinical status. 10/31/16 12:01 Pt seen and examined in no acute distress. Patient s/p trach on 10/28/16. Patient was to go for PEG today however last spiked a fever 16:03 on 10/30/16 though currently afebrile. Patient is noted to open eyes spontaneously, and nod in response to questions. An ROS could not be obtained due to clinical status. CCU Objective - Vital Signs / Intake & Output Vital Signs (Last 4 hours): Vital Signs Pulse Resp BP Pulse Ox 10/31/16 09:00 79 24 100 10/31/16 08:36 85 24 137/96 H 100 10/31/16 08:03 91 H 24 100 10/31/16 08:00 85 21 100 10/31/16 07:58 85 24 100 10/31/16 07:36 87 24 148/97 H 10/31/16 07:09 79 13 100 10/31/16 07:00 82 11 L 100 10/31/16 06:36 79 25 H 135/93 H 100 10/31/16 06:25 93 H 15 100 10/31/16 06:00 80 24 100 Intake and Output (Last 8hrs): Intake & Output 10/30/16 10/31/16 10/31/16 22:59 06:59 14:59 Intake Total 1075 2000 Output Total 900 800 Balance 175 1200 Weight 140 lb Intake: Intake, IV Amount 525 1550 Right Forearm 525 1550 Oral 300 Tube Feeding 250 250 Other 200 Output: Urine 900 800 Urethral (Plaza) 900 800 Other: # Bowel Movements 0 1 - Physical Exam Head: Positive for: Atraumatic, Normocephalic Pupils: Positive for: PERRL (minimal reactivity, intact corneal reflex), Other ( some spontaneous eye movements) Extroacular Muscles: Positive for: EOMI Conjunctiva: Positive for: Normal Ears: Positive for: Normal Mouth: Positive for: Moist Mucous Membranes Pharnyx: Positive for: Other (cough and gag reflex intact) Nose (External): Positive for: Atraumatic Neck: Positive for: Other (trach in place) Respiratory/Chest: Positive for: Clear to Auscultation, Good Air Exchange. Negative for: Respiratory Distress, Accessory Muscle Use Cardiovascular: Positive for: Regular Rate and Rhythm, Normal S1, S2. Negative for: Murmurs Abdomen: Positive for: Normal Bowel Sounds. Negative for: Tenderness, Distention, Peritoneal Signs Upper Extremity: Positive for: Normal Inspection. Negative for: Cyanosis, Edema Lower Extremity: Positive for: Normal Inspection. Negative for: Edema Neurological: Positive for: Other (minimal 0-1/5 strength R extremities, (-) Babinski B/L, no response to pain right extremities; some response in left extremitied. left sided respones are nonpurposeful and increased in comparison to the right side) Skin: Positive for: Warm, Dry, Normal Color. Negative for: Rashes Psychiatric: Positive for: Alert - Medications Active Medications: Active Medications Generic Name Dose Route Start Last Admin Trade Name Freq PRN Reason Stop Dose Admin Acetaminophen 650 mg 10/21/16 20:56 10/30/16 16:03 Tylenol 325mg Tab PO 650 mg Q6 PRN Administration Fever >100.4 F Amlodipine Besylate 10 mg 10/22/16 13:45 10/31/16 09:27 Norvasc PO 10 mg DAILY OMAR Administration Hydralazine HCl 25 mg 10/24/16 10:00 10/26/16 09:49 Apresoline PO 25 mg BID OMAR Administration Cefepime HCl 50 mls @ 100 mls/hr 10/27/16 23:00 10/30/16 23:07 Maxipime Iv 1 Gm Premix IVPB 100 mls/hr Q12H OMAR Administration Losartan Potassium 100 mg 10/24/16 10:00 10/30/16 10:04 Cozaar PO Not Given DAILY OMAR Metoprolol Tartrate 50 mg 10/31/16 10:00 Lopressor PO BID OMAR Pantoprazole Sodium 40 mg 10/23/16 10:00 10/31/16 09:26 Protonix Susp PO 40 mg DAILY OMAR Administration - Patient Studies Lab Studies: Microbiology Studies 10/25/16 16:07 Blood Culture - Final Blood-Venous NO GROWTH AFTER 5 DAYS Gram Stain - Final TEST NOT PERFORMED 10/25/16 16:07 Blood Culture - Final Blood-Venous NO GROWTH AFTER 5 DAYS Gram Stain - Final TEST NOT PERFORMED Lab Studies 10/31/16 10/30/16 Range/Units 06:21 08:10 WBC 17.9 H (4.8-10.8) K/uL RBC 4.23 L (4.40-5.90) Mil/uL Hgb 11.0 L (12.0-18.0) g/dL Hct 35.0 (35.0-51.0) % MCV 82.7 (80.0-94.0) fL MCH 26.0 L (27.0-31.0) pg MCHC 31.5 L (33.0-37.0) g/dL RDW 13.9 (11.5-14.5) % Plt Count 266 (130-400) K/uL MPV 9.8 (7.2-11.7) fL Neut % (Auto) 85.1 H (50.0-75.0) % Lymph % (Auto) 7.4 L (20.0-40.0) % Door % (Auto) 5.9 (0.0-10.0) % Eos % (Auto) 1.5 (0.0-4.0) % Baso % (Auto) 0.1 (0.0-2.0) % Neut # 15.2 H (1.8-7.0) K/uL Lymph # 1.3 (1.0-4.3) K/uL Door # 1.0 H (0.0-0.8) K/uL Eos # 0.3 (0.0-0.7) K/uL Baso # 0.0 (0.0-0.2) K/uL Neutrophils % (Manual) 85 H 88 H (50-75) % Band Neutrophils % 5 H 1 (0-2) % Lymphocytes % (Manual) 4 L 7 L (20-40) % Monocytes % (Manual) 6 4 (0-10) % Platelet Estimate Normal Normal (NORMAL) Large Platelets Present Hypochromasia (manual) Slight Poikilocytosis (manual Slight Slight Anisocytosis (manual) Slight Tear Drop Cells Slight Ovalocytes Slight Slight Aurora Cells Slight Schistocytes Slight PT 15.0 H (9.7-12.2) SECONDS INR 1.3 Sodium 145 (132-148) mmol/L Potassium 4.3 (3.6-5.2) mmol/L Chloride 108 H (98-107) mmol/L Carbon Dioxide 26 (22-30) mmol/L Anion Gap 15 (10-20) BUN 36 H (9-20) mg/dL Creatinine 1.1 (0.8-1.5) MG/DL Est GFR ( Amer) > 60 Est GFR (Non-Af Amer) > 60 Random Glucose 106 (75-110) mg/dL Calcium 7.8 L (8.6-10.4) mg/dl Total Bilirubin 0.6 (0.2-1.3) mg/dL AST 55 (17-59) U/L ALT 87 H (21-72) U/L Alkaline Phosphatase 94 (38-126) U/L Total Protein 6.4 (6.3-8.3) g/dL Albumin 2.8 L (3.5-5.0) g/dL Globulin 3.5 (2.2-3.9) gm/dL Albumin/Globulin Ratio 0.8 L (1.0-2.1) Laboratory Results - last 24 hr 10/30/16 10/31/16 08:10 06:21 WBC 17.9 H RBC 4.23 L Hgb 11.0 L Hct 35.0 MCV 82.7 MCH 26.0 L MCHC 31.5 L RDW 13.9 Plt Count 266 MPV 9.8 Neut % (Auto) 85.1 H Lymph % (Auto) 7.4 L Door % (Auto) 5.9 Eos % (Auto) 1.5 Baso % (Auto) 0.1 Neut # 15.2 H Lymph # 1.3 Door # 1.0 H Eos # 0.3 Baso # 0.0 Neutrophils % (Manual) 88 H 85 H Band Neutrophils % 1 5 H Lymphocytes % (Manual) 7 L 4 L Monocytes % (Manual) 4 6 Platelet Estimate Normal Normal Large Platelets Present Hypochromasia (manual) Slight Poikilocytosis (manual Slight Slight Anisocytosis (manual) Slight Tear Drop Cells Slight Ovalocytes Slight Slight Aurora Cells Slight Schistocytes Slight PT 15.0 H INR 1.3 Sodium 145 Potassium 4.3 Chloride 108 H Carbon Dioxide 26 Anion Gap 15 BUN 36 H Creatinine 1.1 Est GFR ( Amer) > 60 Est GFR (Non-Af Amer) > 60 Random Glucose 106 Calcium 7.8 L Total Bilirubin 0.6 AST 55 ALT 87 H Alkaline Phosphatase 94 Total Protein 6.4 Albumin 2.8 L Globulin 3.5 Albumin/Globulin Ratio 0.8 L Fingerstick Blood Sugar Results: 139 Review of Systems - Review of Systems Review of Systems: as noted in subjective Assessment/Plan - Assessment and Plan (Free Text) Assessment: 56 yo M with a past medical history of hypertension and otherwise unknown past medical history presenting for medical evaluation of intracranial bleed. The patient arrived to the ED intubated. Patient remains intubated with unchanged clinical status. Trach placed 10/28/16 and PEG to be placed on 10/31 however patient has not been afebrile 24 hrs with increase in white count noted today. Plan: Neuro: Intubated Neurology consult - Dr. Simpson Hold antiplatelets for 4-6 weeks and maintain blood pressure above 100 systolic. Sedation as needed 10/24 CT Head: little interval change in the size of left thalamic hemorrhage 2.4x2.9 cm with intraventricular extension of hemorrhage and mild obstructive hydrocephalus. 2 mm midline shift from left to right with no evidence of herniation. Near complete resolution of hemorrhage within 4th ventricle. 10/19 CT Head: little interval change in the known 2.0 x 2.7 acute hematoma in left thalamus with intra ventricular extension of hemorrhage. Interval mild worsening of obstructive hydrocephalus. 10/18 CT Head: Left basal ganglia acute hemorrhage, possibly hypertensive with associated intraventricular hemorrhage and mass effect upon the left lateral aspect of the 3rd ventricle with the tip shift of the 3rd ventricle towards the right side. No generalized midline shift. Air-fluid level in sphenoid sinus common nonspecific. Please correlate for concern regarding acute sinusitis. Mild involutional changes. GCS - 8T (E4 VT M4) [place] 10.0, 12% estimated non-operative mortality Cardio: Hypertension line placed 10/20/16 TLC left IJ @ 15 cm placed 10/19/16 Amlodipine 10 mg POQD Hydralazine 25 mg POBID Losartan 100 mg POQD Labetalol 200 mg PO Q12H Pulm: FiO2 30 PEEP 5 Rate 24 TV 500ml;s/p tracheostomy 10/28/16 CPAP trial s/p tracheostomy 10/28/16 ABG: -10/28 pH 7.46, CO2 35, O2 73, HCO3 25.9 -10/27 pH 7.49, CO2 33, O2 74, HCO3 26.5 Imaging 10/31/16- ETT and NGT noted- continued improvement right lung base 10/28 CXR No focal airspace opacity 10/27 CXR No active disease -f/u AM CXR and ABG Head of bed to 30* Keep O2 Sat >92% GI: NPO NGT was advanced 10/20 Patient was to receive PEG today but has not been afebrile more than 24 hrs. Leukocytosis noted as well. Endo: Maintain euglycemia Heme: WBC 17.9 10/31, was 15 10/30. F/U UA, UC, Sputum cultures H&H:stable Intracranial bleed Contraindication for anticoagulation F/u AM CBC No coagulopathy ID: [id number] Sputum cx: Serratia marcescens and Enterobactor aerogenes 10/21 Sputum cx: Klebsiella pneumoniae Hold change of antibiotics. Fully aware of the low grade temperature, and increase in WBCs. Patient is hemodynamically stable. IV Cefepime 1 gram 50 cc @ 100cc/hr Acetaminophen 650 mg Q6 PRN for fever Renal: BUN/Cr: 44/1.4 MSK: OOBTC, PT Eval and treat Check PEG and tracheostomy site for drainage, erythema, hematoma, signs of infection. : I/O Balance- = 1060cc [place] d/c; [place] cath inserted Prophylaxis: GI - Protonix 40 mg IVP daily DVT - contraindicated / to intracranial bleed <Elfego Zamarripa - Last Filed: 10/31/16 15:31> CCU Subjective - Physician Review Events Since Last Encounter (Free Text): 10/31/16 15:30 Patient's overall condition is unchanging. Had a fever last night, currently receiving NG tube feeding. Patient was supposed to have the PEG tube but it was discontinued because of the fever. Vital signs stable otherwise. Edema noted. Patient is moving the left side Assessment and recommendation: 56-year-old male admitted with a CVA. Hemorrhagic CVA, with hypotension related, but the right-sided weakness. For possible feeding tube PEG tube once the fever is controlled. We'll try CPAP trial CCU Objective - Vital Signs / Intake & Output Vital Signs (Last 4 hours): Vital Signs Temp Pulse Resp BP Pulse Ox 10/31/16 15:00 84 21 100 10/31/16 14:36 122/75 10/31/16 14:35 84 20 100 10/31/16 14:00 82 19 100 10/31/16 13:36 83 20 126/72 100 10/31/16 13:00 88 19 100 10/31/16 12:55 86 19 100 10/31/16 12:36 95 H 14 126/81 100 10/31/16 12:19 83 21 100 10/31/16 12:00 100 F H 83 20 99 10/31/16 11:36 82 19 138/83 99 Intake and Output (Last 8hrs): Intake & Output 10/31/16 10/31/16 10/31/16 06:59 14:59 22:59 Intake Total 2000 550 Output Total 800 450 Balance 1200 100 Weight 140 lb Intake: Intake, IV Amount 1550 500 Right Forearm 1550 500 Oral 0 Tube Feeding 250 50 Other 200 Output: Urine 800 450 Urethral (Plaza) 800 450 Other: # Bowel Movements 1 1 - Medications Active Medications: Active Medications Generic Name Dose Route Start Last Admin Trade Name Freq PRN Reason Stop Dose Admin Acetaminophen 650 mg 10/21/16 20:56 10/30/16 16:03 Tylenol 325mg Tab PO 650 mg Q6 PRN Administration Fever >100.4 F Amlodipine Besylate 10 mg 10/22/16 13:45 10/31/16 09:27 Norvasc PO 10 mg DAILY OMAR Administration Hydralazine HCl 25 mg 10/24/16 10:00 10/26/16 09:49 Apresoline PO 25 mg BID OMAR Administration Cefepime HCl 50 mls @ 100 mls/hr 10/27/16 23:00 10/31/16 11:17 Maxipime Iv 1 Gm Premix IVPB 100 mls/hr Q12H OMAR Administration Losartan Potassium 100 mg 10/24/16 10:00 10/31/16 11:17 Cozaar PO Not Given DAILY OMAR Metoprolol Tartrate 50 mg 10/31/16 10:00 10/31/16 10:58 Lopressor PO Not Given BID OMAR Pantoprazole Sodium 40 mg 10/23/16 10:00 10/31/16 09:26 Protonix Susp PO 40 mg DAILY OMAR Administration - Patient Studies Lab Studies: Microbiology Studies 10/25/16 16:07 Blood Culture - Final Blood-Venous NO GROWTH AFTER 5 DAYS Gram Stain - Final TEST NOT PERFORMED 10/25/16 16:07 Blood Culture - Final Blood-Venous NO GROWTH AFTER 5 DAYS Gram Stain - Final TEST NOT PERFORMED Lab Studies 10/31/16 10/31/16 Range/Units 10:21 06:21 WBC 17.9 H (4.8-10.8) K/uL RBC 4.23 L (4.40-5.90) Mil/uL Hgb 11.0 L (12.0-18.0) g/dL Hct 35.0 (35.0-51.0) % MCV 82.7 (80.0-94.0) fL MCH 26.0 L (27.0-31.0) pg MCHC 31.5 L (33.0-37.0) g/dL RDW 13.9 (11.5-14.5) % Plt Count 266 (130-400) K/uL MPV 9.8 (7.2-11.7) fL Neut % (Auto) 85.1 H (50.0-75.0) % Lymph % (Auto) 7.4 L (20.0-40.0) % Door % (Auto) 5.9 (0.0-10.0) % Eos % (Auto) 1.5 (0.0-4.0) % Baso % (Auto) 0.1 (0.0-2.0) % Neut # 15.2 H (1.8-7.0) K/uL Lymph # 1.3 (1.0-4.3) K/uL Door # 1.0 H (0.0-0.8) K/uL Eos # 0.3 (0.0-0.7) K/uL Baso # 0.0 (0.0-0.2) K/uL Neutrophils % (Manual) 85 H (50-75) % Band Neutrophils % 5 H (0-2) % Lymphocytes % (Manual) 4 L (20-40) % Monocytes % (Manual) 6 (0-10) % Platelet Estimate Normal (NORMAL) Poikilocytosis (manual Slight Ovalocytes Slight Beto Cells Slight PT 15.0 H (9.7-12.2) SECONDS INR 1.3 Sodium 145 (132-148) mmol/L Potassium 4.3 (3.6-5.2) mmol/L Chloride 108 H (98-107) mmol/L Carbon Dioxide 26 (22-30) mmol/L Anion Gap 15 (10-20) BUN 36 H (9-20) mg/dL Creatinine 1.1 (0.8-1.5) MG/DL Est GFR ( Amer) > 60 Est GFR (Non-Af Amer) > 60 Random Glucose 106 (75-110) mg/dL Calcium 7.8 L (8.6-10.4) mg/dl Total Bilirubin 0.6 (0.2-1.3) mg/dL AST 55 (17-59) U/L ALT 87 H (21-72) U/L Alkaline Phosphatase 94 (38-126) U/L Total Protein 6.4 (6.3-8.3) g/dL Albumin 2.8 L (3.5-5.0) g/dL Globulin 3.5 (2.2-3.9) gm/dL Albumin/Globulin Ratio 0.8 L (1.0-2.1) Urine Color Yellow (YELLOW) Urine Clarity Hazy (Clear) Urine pH 5.0 (5.0-8.0) Ur Specific [place] 1.024 (1.003-1.030) Urine Protein 1+ H (NEGATIVE) mg/dL Urine Glucose (UA) Normal (Normal) mg/dL Urine Ketones Negative (NEGATIVE) mg/dL Urine Blood Negative (NEGATIVE) Urine Nitrate Negative (NEGATIVE) Urine Bilirubin Negative (NEGATIVE) Urine Urobilinogen Normal (0.2-1.0) mg/dL Ur Leukocyte Esterase Neg (Negative) [place]/uL Urine WBC (Auto) 1 (0-5) /hpf Urine RBC (Auto) 2 (0-3) /hpf Uric Acid Crystals Occ H (<OCC) /hpf Laboratory Results - last 24 hr 10/31/16 10/31/16 06:21 10:21 WBC 17.9 H RBC 4.23 L Hgb 11.0 L Hct 35.0 MCV 82.7 MCH 26.0 L MCHC 31.5 L RDW 13.9 Plt Count 266 MPV 9.8 Neut % (Auto) 85.1 H Lymph % (Auto) 7.4 L Door % (Auto) 5.9 Eos % (Auto) 1.5 Baso % (Auto) 0.1 Neut # 15.2 H Lymph # 1.3 Door # 1.0 H Eos # 0.3 Baso # 0.0 Neutrophils % (Manual) 85 H Band Neutrophils % 5 H Lymphocytes % (Manual) 4 L Monocytes % (Manual) 6 Platelet Estimate Normal Poikilocytosis (manual Slight Ovalocytes Slight Beto Cells Slight PT 15.0 H INR 1.3 Sodium 145 Potassium 4.3 Chloride 108 H Carbon Dioxide 26 Anion Gap 15 BUN 36 H Creatinine 1.1 Est GFR ( Amer) > 60 Est GFR (Non-Af Amer) > 60 Random Glucose 106 Calcium 7.8 L Total Bilirubin 0.6 AST 55 ALT 87 H Alkaline Phosphatase 94 Total Protein 6.4 Albumin 2.8 L Globulin 3.5 Albumin/Globulin Ratio 0.8 L Urine Color Yellow Urine Clarity Hazy Urine pH 5.0 Ur Specific [place] 1.024 Urine Protein 1+ H Urine Glucose (UA) Normal Urine Ketones Negative Urine Blood Negative Urine Nitrate Negative Urine Bilirubin Negative Urine Urobilinogen Normal Ur Leukocyte Esterase Neg Urine WBC (Auto) 1 Urine RBC (Auto) 2 Uric Acid Crystals Occ H
[2016-10-31 10:38] LABS: RBC URINE 2 /hpf (0-3); URINE BILIRUBIN NEGATIVE (NEGATIVE); URINE BLOOD NEGATIVE (NEGATIVE); URINE COLOR Yellow (YELLOW); URINE GLUCOSE (UA) NORMAL (Normal); URINE KETONE NEGATIVE (NEGATIVE); URINE LEUKOCYTE ESTERASE NEG Leu/uL (Negative); URINE PROTEIN 1+ mg/dL (NEGATIVE); URINE URIC ACID CRYSTALS OCC /hpf (<OCC); URINE UROBILINOGEN NORMAL mg/dL (0.2-1.0); WBC URINE 1 /hpf (0-5)
--- NOTE | 2016-10-31 11:01 | RAD ---
HISTORY: rule out infiltrative disease, pneumonia COMPARISON: No prior. FINDINGS: LUNGS: In situ tracheostomy tube remains in good position. NGT with tip overlying the left upper quadrant of the abdomen unchanged. Continued improvement right lung base. . . PLEURA: No significant pleural effusion identified, no pneumothorax apparent. CARDIOVASCULAR: Normal. OSSEOUS STRUCTURES: No significant abnormalities. VISUALIZED UPPER ABDOMEN: Normal. OTHER FINDINGS: None. IMPRESSION: ETT and NGT as above. Continued improvement right lung base.
[2016-10-31] MEDS: Cefepime IV 1 gm in Dextrose 50 ML IVPB SCH ×2 (11:17→22:09)
--- NOTE | 2016-10-31 11:45 | CP.PCM.PN ---
<Pallavi Cerda - Last Filed: 10/31/16 14:03> Subjective - Date & Time of Evaluation Date of Evaluation: 10/31/16 Time of Evaluation: 11:42 - Subjective Subjective: Gastroenterology Fellow/PGY4 Progress Note Patient remains on ventilator support with trach placed monday. Nursing denies any acute events overnight. A 12-point review of systems unable to be completed due to intubation and hemorrhagic stroke. Objective - Vital Signs/Intake and Output Vital Signs (last 24 hours): Temp Pulse Resp BP Pulse Ox 99.1 F 85 16 122/82 99 10/31/16 08:00 10/31/16 11:00 10/31/16 11:00 10/31/16 10:56 10/31/16 11:00 Intake and Output: 10/31/16 10/31/16 06:59 18:59 Intake Total 2175 550 Output Total 800 450 Balance 1375 100 - Medications Medications: Current Medications Acetaminophen (Tylenol 325mg Tab) 650 mg PO Q6 PRN PRN Reason: Fever >100.4 F Last Admin: 10/30/16 16:03 Dose: 650 mg Amlodipine Besylate (Norvasc) 10 mg PO DAILY [facility] Last Admin: 10/31/16 09:27 Dose: 10 mg Hydralazine HCl (Apresoline) 25 mg PO BID [facility] Last Admin: 10/26/16 09:49 Dose: 25 mg Cefepime HCl (Maxipime Iv 1 Gm Premix) 50 mls @ 100 mls/hr IVPB Q12H [facility] Last Admin: 10/31/16 11:17 Dose: 100 mls/hr Losartan Potassium (Cozaar) 100 mg PO DAILY [facility] Last Admin: 10/31/16 11:17 Dose: Not Given Metoprolol Tartrate (Lopressor) 50 mg PO BID [facility] Last Admin: 10/31/16 10:58 Dose: Not Given Pantoprazole Sodium (Protonix Susp) 40 mg PO DAILY [facility] Last Admin: 10/31/16 09:26 Dose: 40 mg - Labs Labs: 10/31/16 06:21 10/31/16 06:21 PT 15.0 SECONDS (9.7-12.2) H 10/31/16 06:21 INR 1.3 10/31/16 06:21 APTT 30 SECONDS (21-34) 10/28/16 05:59 - Constitutional Appears: Non-toxic, No Acute Distress - Head Exam Head Exam: ATRAUMATIC, NORMOCEPHALIC - Eye Exam Eye Exam: PERRL Pupil Exam: PERRL. absent: Miosis, Mydriatic - Neck Exam Neck Exam: Normal Inspection - Respiratory Exam Respiratory Exam: Clear to Ausculation Bilateral. absent: Rales, Rhonchi, Wheezes - Cardiovascular Exam Cardiovascular Exam: RRR, +S1, +S2. absent: Gallop, Rubs - GI/Abdominal Exam GI & Abdominal Exam: Soft, Normal Bowel Sounds. absent: Distended, Firm, Guarding, Rigid, Tenderness, Organomegaly, Rebound - Extremities Exam Extremities Exam: absent: Pedal Edema - Neurological Exam Additional comments: tracheostomy in place on ventilator support - Psychiatric Exam Additional comments: tracheostomy in place, on ventilator support - Skin Skin Exam: Dry, Intact, Normal Color, Warm Assessment and Plan - Assessment and Plan (Free Text) Assessment: 56 year old male with prior medical history of hypertension presenting after being found down and intubated by EMS in the field. History obtained by record review and ICU team requesting GI consultation for PEG placement evaluation. 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 Notes to have low grade temperatures and leukocytosis within last 24 hours. Plan: >PEG placement postponed due to leukocytosis and fever curve >family aware with expressing understanding >consent on chart from >continue OGT tube feeds >await improvement in leukocytosis and afebrile for 24 hours prior to PEG placement >further recommendations as follow clinical course <Johnson Collier MD - Last Filed: 10/31/16 19:34> Objective - Vital Signs/Intake and Output Vital Signs (last 24 hours): Temp Pulse Resp BP Pulse Ox 100 F H 84 21 122/75 100 10/31/16 12:00 10/31/16 15:00 10/31/16 15:00 10/31/16 14:36 10/31/16 15:00 Intake and Output: 10/31/16 11/01/16 18:59 06:59 Intake Total 950 Output Total 450 Balance 500 - Medications Medications: Current Medications Acetaminophen (Tylenol 325mg Tab) 650 mg PO Q6 PRN PRN Reason: Fever >100.4 F Last Admin: 10/30/16 16:03 Dose: 650 mg Amlodipine Besylate (Norvasc) 10 mg PO DAILY [facility] Last Admin: 10/31/16 09:27 Dose: 10 mg Hydralazine HCl (Apresoline) 25 mg PO BID [facility] Last Admin: 10/26/16 09:49 Dose: 25 mg Cefepime HCl (Maxipime Iv 1 Gm Premix) 50 mls @ 100 mls/hr IVPB Q12H [facility] Last Admin: 10/31/16 11:17 Dose: 100 mls/hr Losartan Potassium (Cozaar) 100 mg PO DAILY [facility] Last Admin: 10/31/16 11:17 Dose: Not Given Metoprolol Tartrate (Lopressor) 50 mg PO BID [facility] Last Admin: 10/31/16 18:29 Dose: 50 mg Pantoprazole Sodium (Protonix Susp) 40 mg PO DAILY [facility] Last Admin: 10/31/16 09:26 Dose: 40 mg - Labs Labs: 10/31/16 06:21 10/31/16 06:21 PT 15.0 SECONDS (9.7-12.2) H 10/31/16 06:21 INR 1.3 10/31/16 06:21 APTT 30 SECONDS (21-34) 10/28/16 05:59 Attending/Attestation - Attestation I have personally seen and examined this patient.: Yes I have fully participated in the care of the patient.: Yes I have reviewed all pertinent clinical information, including history, physical exam and plan: Yes Notes (Text): 10/31/16 19:31 Patient seen and examined at bedside with GI fellow. This is a 56 year old male with prior medical history of hypertension intubated on the field with intracerebral hemorrhagic stroke. Gi consulted for PEG placement. s/p trach placement. Planned for PEG today but was cancelled for new low grade fever and uptrending WBC on antibiotics. Will hold off till acute infection is controlled. Please call prn once sepsis resolves. Thank you for letting us participate in the care of this patient
--- NOTE | 2016-10-31 16:56 | CP.PCM.PN ---
<Marybel Taylor - Last Filed: 10/31/16 16:53> Subjective - Date & Time of Evaluation Date of Evaluation: 10/31/16 Time of Evaluation: 09:15 - Subjective Subjective: Internal medicine progress note for Dr. Saldana- Marybel Taylor, PGY-1 Pt S & E at bedside. Pt trached/collared, non verbal, able to follow simple commands in [place]. No events overnight per nursing. Patient for PEG today. Objective - Vital Signs/Intake and Output Vital Signs (last 24 hours): Temp Pulse Resp BP Pulse Ox 100 F H 84 21 122/75 100 10/31/16 12:00 10/31/16 15:00 10/31/16 15:00 10/31/16 14:36 10/31/16 15:00 Intake and Output: 10/31/16 10/31/16 06:59 18:59 Intake Total 2175 950 Output Total 800 450 Balance 1375 500 - Medications Medications: Current Medications Acetaminophen (Tylenol 325mg Tab) 650 mg PO Q6 PRN PRN Reason: Fever >100.4 F Last Admin: 10/30/16 16:03 Dose: 650 mg Amlodipine Besylate (Norvasc) 10 mg PO DAILY [facility] Last Admin: 10/31/16 09:27 Dose: 10 mg Hydralazine HCl (Apresoline) 25 mg PO BID [facility] Last Admin: 10/26/16 09:49 Dose: 25 mg Cefepime HCl (Maxipime Iv 1 Gm Premix) 50 mls @ 100 mls/hr IVPB Q12H [facility] Last Admin: 10/31/16 11:17 Dose: 100 mls/hr Losartan Potassium (Cozaar) 100 mg PO DAILY [facility] Last Admin: 10/31/16 11:17 Dose: Not Given Metoprolol Tartrate (Lopressor) 50 mg PO BID [facility] Last Admin: 10/31/16 10:58 Dose: Not Given Pantoprazole Sodium (Protonix Susp) 40 mg PO DAILY [facility] Last Admin: 10/31/16 09:26 Dose: 40 mg - Labs Labs: 10/31/16 06:21 10/31/16 06:21 PT 15.0 SECONDS (9.7-12.2) H 10/31/16 06:21 INR 1.3 10/31/16 06:21 APTT 30 SECONDS (21-34) 10/28/16 05:59 - Constitutional Appears: Non-toxic, No Acute Distress, Older Than Stated Age - Head Exam Head Exam: ATRAUMATIC, NORMAL INSPECTION, NORMOCEPHALIC Additional comments: Trach collar in place, on mechanical vent - Eye Exam Eye Exam: EOMI, Normal appearance, PERRL Pupil Exam: NORMAL ACCOMODATION, PERRL - ENT Exam ENT Exam: Mucous Membranes Moist, Normal Exam - Neck Exam Neck Exam: absent: Normal Inspection (trach collar in place, no secretions noted ) - Respiratory Exam Respiratory Exam: Clear to Ausculation Bilateral, NORMAL BREATHING PATTERN. absent: Rhonchi, Wheezes, Stridor - Cardiovascular Exam Cardiovascular Exam: REGULAR RHYTHM, +S1, +S2 - GI/Abdominal Exam GI & Abdominal Exam: Soft, Normal Bowel Sounds. absent: Tenderness - Extremities Exam Extremities Exam: Normal Inspection. absent: Pedal Edema - Neurological Exam Neurological Exam: Alert, Awake. absent: Oriented x3 Additional comments: non verbal, non able to assess - Psychiatric Exam Psychiatric exam: Normal Affect, Normal Mood - Skin Skin Exam: Dry, Intact, Normal Color, Warm Assessment and Plan - Assessment and Plan (Free Text) Assessment: Neuro: Intubated Neurology consult - Dr. Simpson advise to schedule trach and PEG. Hold antiplatelets for 4-6 weeks and maintain blood pressure above 100 systolic. Sedation as needed 10/24 CT Head: little interval change in the size of left thalamic hemorrhage 2.4x2.9 cm with intraventricular extension of hemorrhage and mild obstructive hydrocephalus. 2 mm midline shift from left to right with no evidence of herniation. Near complete resolution of hemorrhage within 4th ventricle. 10/19 CT Head: little interval change in the known 2.0 x 2.7 acute hematoma in left thalamus with intra ventricular extension of hemorrhage. Interval mild worsening of obstructive hydrocephalus. 10/18 CT Head: Left basal ganglia acute hemorrhage, possibly hypertensive with associated intraventricular hemorrhage and mass effect upon the left lateral aspect of the 3rd ventricle with the tip shift of the 3rd ventricle towards the right side. No generalized midline shift. Air-fluid level in sphenoid sinus common nonspecific. Please correlate for concern regarding acute sinusitis. Mild involutional changes. GCS - 8T (E4 VT M4) [place] II 10.0, 12% estimated non-operative mortality Cardio: Hypertension line placed 10/20/16 TLC left IJ @ 15 cm placed 10/19/16 Amlodipine 10 mg POQD Hydralazine 25 mg POBID Losartan 100 mg POQD Labetalol 200 mg PO Q12H Pulm: CPAP trial s/p tracheostomy ABG: -10/28 pH 7.46, CO2 35, O2 73, HCO3 25.9 -10/27 pH 7.49, CO2 33, O2 74, HCO3 26.5 -10/26 pH 7.5, CO2 32, O2 91, HCO3 26.6 -10/24 pH 7.47, CO2 35, O2 119, HCO3 26.5 -10/23 pH 7.47, CO2 33, O2 66, HCO3 25.5 -10/22 pH 7.52, CO2 33, O2 57, HCO3 28.1 -10/21 pH 7.48, CO2 38, O2 79, HCO3 28.5 -10/20 pH 7.46, CO2 37, O2 187 HCO3 26.9 -10/19 pH 7.46, CO2 38, O2 214, HCO3 27.4 Imaging 10/28 CXR No focal airspace opacity 10/27 CXR No active disease 10/26 CXR - Mild venous congestion. Right hilar prominence 10/24 CXR Mild venous congestion. Mild right infrahilar prominence 10/23 CXR - Mild venous congestion. right hilar prominence. Biapical pleural thickening upper lobe granulomatous changes. lines and tubes in stable position. 10/22 CXR - Worsening consolidative changes to right mid to lower lung zone. lines and tubes in stable position. 10/20 CXR - Distal tip of an endotracheal tube terminates approximately 4.6 cm above the brisa. Left IJ approach Central venous catheter terminates at expected location of the left innominate vein. Nasogastric tube extends to expected location of the stomach 10/19 CXR New nasogastric tube extends to distal esophagus, above the diaphragm. Repositioning is advised. ET tube unchanged. No infiltrate. 10/18 CXR ET tube proximal to brisa, no acute pulmonary pathology official read pending -f/u AM CXR and ABG Head of bed to 30* Keep O2 Sat >92% f/u General surgery consult for tracheostomy and PEG placement GI: NPO after MN for peg tube placement tomorrow NGT was advanced 10/20 Consulted GI- Dr. Renteria Endo: Maintain euglycemia Heme: H&H: 11.2/35.5 Intracranial bleed Contraindication for anticoagulation F/u AM CBC No coagulopathy ID: 10/25 Sputum cx: Serratia marcescens and Enterobactor aerogenes 10/21 Sputum cx: Klebsiella pneumoniae Hold change of antibiotics. Fully aware of the low grade temperature, and increase in WBCs. Patient is hemodynamically stable. IV Cefepime 1 gram 50 cc @ 100cc/hr Acetaminophen 650 mg Q6 PRN for fever Renal: BUN/Cr: 39/1.3. Improving Na- 150 today. Started on 08/15 NS @ 100cc/hr MSK: OOBTC, PT Eval and treat Check tracheostomy site for drainage, erythema, hematoma, signs of infection. : I/O Balance- = 1060cc Dum[place] in place Maintain dumas care Prophylaxis: GI - Protonix 40 mg IVP daily DVT - contraindicated 09/15 to intracranial bleed Dispo: For PEG today SW eval for possible LTAC after PEG placement DW attending <Johny Saldana H - Last Filed: 10/31/16 17:22> Objective - Vital Signs/Intake and Output Vital Signs (last 24 hours): Temp Pulse Resp BP Pulse Ox 100 F H 84 21 122/75 100 10/31/16 12:00 10/31/16 15:00 10/31/16 15:00 10/31/16 14:36 10/31/16 15:00 Intake and Output: 10/31/16 10/31/16 06:59 18:59 Intake Total 2175 950 Output Total 800 450 Balance 1375 500 - Medications Medications: Current Medications Acetaminophen (Tylenol 325mg Tab) 650 mg PO Q6 PRN PRN Reason: Fever >100.4 F Last Admin: 10/30/16 16:03 Dose: 650 mg Amlodipine Besylate (Norvasc) 10 mg PO DAILY [facility] Last Admin: 10/31/16 09:27 Dose: 10 mg Hydralazine HCl (Apresoline) 25 mg PO BID [facility] Last Admin: 10/26/16 09:49 Dose: 25 mg Cefepime HCl (Maxipime Iv 1 Gm Premix) 50 mls @ 100 mls/hr IVPB Q12H [facility] Last Admin: 10/31/16 11:17 Dose: 100 mls/hr Losartan Potassium (Cozaar) 100 mg PO DAILY [facility] Last Admin: 10/31/16 11:17 Dose: Not Given Metoprolol Tartrate (Lopressor) 50 mg PO BID [facility] Last Admin: 10/31/16 10:58 Dose: Not Given Pantoprazole Sodium (Protonix Susp) 40 mg PO DAILY [facility] Last Admin: 10/31/16 09:26 Dose: 40 mg - Labs Labs: 10/31/16 06:21 10/31/16 06:21 PT 15.0 SECONDS (9.7-12.2) H 10/31/16 06:21 INR 1.3 10/31/16 06:21 APTT 30 SECONDS (21-34) 10/28/16 05:59 Attending/Attestation - Attestation I have personally seen and examined this patient.: Yes I have fully participated in the care of the patient.: Yes I have reviewed all pertinent clinical information, including history, physical exam and plan: Yes Notes (Text): 10/31/16 17:21 Medical Attending: Patient was seen and examined by me. The above note by the resident does have some information that is old and needs to be updated. I will discuss this tommorow. Otherwise at this point the patient now has a trach and also currently pending PEG placement at this time. At most the patient was able to open and close his eyes when we called his name during the exam. thank you Johny Saldana
--- NOTE | 2016-11-01 06:34 | CP.PCM.PN ---
<Marybel Taylor - Last Filed: 11/01/16 14:59> Subjective - Date & Time of Evaluation Date of Evaluation: 11/01/16 Time of Evaluation: 07:00 - Subjective Subjective: Internal medicine progress note for Dr. Saldana- Marybel Taylor, PGY-1 Pt S & E at bedside. Pt continues with fevers overnight, no other changes from baseline. Patient awake, alert, able to follow simple commands in Chinese, moving arms and legs. Objective - Vital Signs/Intake and Output Vital Signs (last 24 hours): Temp Pulse Resp BP Pulse Ox 98.5 F 80 20 130/84 99 11/01/16 00:44 11/01/16 00:44 11/01/16 00:44 11/01/16 00:44 11/01/16 00:44 Intake and Output: 10/31/16 11/01/16 18:59 06:59 Intake Total 950 Output Total 450 Balance 500 - Medications Medications: Current Medications Acetaminophen (Tylenol 325mg Tab) 650 mg PO Q6 PRN PRN Reason: Fever >100.4 F Last Admin: 10/31/16 22:08 Dose: 650 mg Amlodipine Besylate (Norvasc) 10 mg PO DAILY [facility] Last Admin: 10/31/16 09:27 Dose: 10 mg Hydralazine HCl (Apresoline) 25 mg PO BID [facility] Last Admin: 10/26/16 09:49 Dose: 25 mg Cefepime HCl (Maxipime Iv 1 Gm Premix) 50 mls @ 100 mls/hr IVPB Q12H [facility] Last Admin: 10/31/16 22:09 Dose: 100 mls/hr Losartan Potassium (Cozaar) 100 mg PO DAILY [facility] Last Admin: 10/31/16 11:17 Dose: Not Given Metoprolol Tartrate (Lopressor) 50 mg PO BID [facility] Last Admin: 10/31/16 18:29 Dose: 50 mg Pantoprazole Sodium (Protonix Susp) 40 mg PO DAILY [facility] Last Admin: 10/31/16 09:26 Dose: 40 mg - Labs Labs: 10/31/16 06:21 10/31/16 06:21 PT 15.0 SECONDS (9.7-12.2) H 10/31/16 06:21 INR 1.3 10/31/16 06:21 APTT 30 SECONDS (21-34) 10/28/16 05:59 - Constitutional Appears: Non-toxic, No Acute Distress - Head Exam Head Exam: ATRAUMATIC, NORMAL INSPECTION, NORMOCEPHALIC - Eye Exam Eye Exam: EOMI, Normal appearance, PERRL Pupil Exam: NORMAL ACCOMODATION, PERRL - ENT Exam ENT Exam: Mucous Membranes Moist, Normal Exam Additional comments: OG feeding tube in place - Neck Exam Additional comments: Trach collar in place, no drainage - Respiratory Exam Respiratory Exam: Clear to Ausculation Bilateral, NORMAL BREATHING PATTERN. absent: Accessory Muscle Use, Rales, Rhonchi, Wheezes - Cardiovascular Exam Cardiovascular Exam: REGULAR RHYTHM, +S1, +S2 - GI/Abdominal Exam GI & Abdominal Exam: Soft, Normal Bowel Sounds. absent: Distended, Firm, Guarding, Rigid, Tenderness - Extremities Exam Extremities Exam: Full ROM, Normal Inspection. absent: Pedal Edema - Neurological Exam Neurological Exam: Alert, Awake - Psychiatric Exam Additional comments: unable to assess- non verbal, trach collar in place - Skin Skin Exam: Diaphoretic, Intact, Normal Color, Warm Assessment and Plan - Assessment and Plan (Free Text) Assessment: Neuro: Trach tube in place Pt follows simple commands in Chinese Neurology consult - Dr. Simpson advise to schedule trach and PEG. Hold antiplatelets for 4-6 weeks and maintain blood pressure above 100 systolic. Sedation as needed 10/24 CT Head: little interval change in the size of left thalamic hemorrhage 2.4x2.9 cm with intraventricular extension of hemorrhage and mild obstructive hydrocephalus. 2 mm midline shift from left to right with no evidence of herniation. Near complete resolution of hemorrhage within 4th ventricle. 10/19 CT Head: little interval change in the known 2.0 x 2.7 acute hematoma in left thalamus with intra ventricular extension of hemorrhage. Interval mild worsening of obstructive hydrocephalus. 10/18 CT Head: Left basal ganglia acute hemorrhage, possibly hypertensive with associated intraventricular hemorrhage and mass effect upon the left lateral aspect of the 3rd ventricle with the tip shift of the 3rd ventricle towards the right side. No generalized midline shift. Air-fluid level in sphenoid sinus common nonspecific. Please correlate for concern regarding acute sinusitis. Mild involutional changes. GCS - 8T (E4 VT M4) [place] II 10.0, 12% estimated non-operative mortality Cardio: Hypertension - controlled line placed 10/20/16 TLC left IJ @ 15 cm placed 10/19/16 Amlodipine 10 mg POQD Hydralazine 25 mg POBID Losartan 100 mg POQD Labetalol 200 mg PO Q12H Pulm: On mech vent s/p tracheostomy Trach tube care ABG: -10/29 pH 7.46, CO 35, O2 90, HCO3 26.0 -10/28 pH 7.46, CO2 35, O2 73, HCO3 25.9 -10/27 pH 7.49, CO2 33, O2 74, HCO3 26.5 -10/26 pH 7.5, CO2 32, O2 91, HCO3 26.6 -10/24 pH 7.47, CO2 35, O2 119, HCO3 26.5 -10/23 pH 7.47, CO2 33, O2 66, HCO3 25.5 -10/22 pH 7.52, CO2 33, O2 57, HCO3 28.1 -10/21 pH 7.48, CO2 38, O2 79, HCO3 28.5 -10/20 pH 7.46, CO2 37, O2 187 HCO3 26.9 -10/19 pH 7.46, CO2 38, O2 214, HCO3 27.4 Imaging 10/31 CXR -In situ tracheostomy tube remains in good position. NGT w/tip overlying LUQ of the abdomen unchanged. Continued improvement right lung base. 10/28 CXR No focal airspace opacity 10/27 CXR No active disease 10/26 CXR - Mild venous congestion. Right hilar prominence 10/24 CXR Mild venous congestion. Mild right infrahilar prominence 10/23 CXR - Mild venous congestion. right hilar prominence. Biapical pleural thickening upper lobe granulomatous changes. lines and tubes in stable position. 10/22 CXR - Worsening consolidative changes to right mid to lower lung zone. lines and tubes in stable position. 10/20 CXR - Distal tip of an endotracheal tube terminates approximately 4.6 cm above the brisa. Left IJ approach Central venous catheter terminates at expected location of the left innominate vein. Nasogastric tube extends to expected location of the stomach 10/19 CXR New nasogastric tube extends to distal esophagus, above the diaphragm. Repositioning is advised. ET tube unchanged. No infiltrate. 10/18 CXR ET tube proximal to brisa, no acute pulmonary pathology official read pending -f/u AM CXR and ABG Head of bed to 30* Keep O2 Sat >92% f/u General surgery consult for tracheostomy and PEG placement GI: Feeding tube via oropharynx replaced 11/01 Position verified by CXR NGT was advanced 10/20 - d/c'd Consulted GI- Dr. Renteria- PEG tube placement when not having fevers/ leukocytosis Endo: Maintain euglycemia Heme: H&H: 11.4/35.7- stable Intracranial bleed No coagulopathy Contraindication for anticoagulation ID: Leukocytosis 19.3 from 17.9 Febrile over last 24H - Tmax 101.6 -Started Vanco 1gm Q24H -FU vanco through 11/02 11/01- apr work up sent: blood cxr, urine cxr, CXR, C diff stool 10/31- Trach asp cx pending 10/31 - Urine (dumas) cxr neg 10/25 Sputum cx: Serratia marcescens and Enterobactor aerogenes 10/21 Sputum cx: Klebsiella pneumoniae Hold change of antibiotics. Fully aware of the low grade temperature, and increase in WBCs. Patient is hemodynamically stable. IV Cefepime 1 gram 50 cc @ 100cc/hr Acetaminophen 650 mg Q6 PRN for fever ID following- Kathy Renal: BUN/Cr: 37/1.2-Improving Electrolytes WNL Free water flushes 200c Q8H Monitor MSK: OOBTC, PT Eval and treat Check tracheostomy site for drainage, erythema, hematoma, signs of infection. : I/O Balance- 950/450= 500cc Monitor Prophylaxis: GI - Protonix 40 mg IVP daily DVT - contraindicated 2/2 to intracranial bleed Dispo: FU septic W/U PEG placement when no longer spiking fevers SW eval for possible LTAC after PEG placement DW attending <Johny Saldana - Last Filed: 11/01/16 15:33> Objective - Vital Signs/Intake and Output Vital Signs (last 24 hours): Temp Pulse Resp BP Pulse Ox 98.5 F 90 20 143/90 100 11/01/16 08:50 11/01/16 08:50 11/01/16 08:50 11/01/16 08:50 11/01/16 08:50 - Medications Medications: Current Medications Acetaminophen (Tylenol 325mg Tab) 650 mg PO Q6 PRN PRN Reason: Fever >100.4 F Last Admin: 10/31/16 22:08 Dose: 650 mg Amlodipine Besylate (Norvasc) 10 mg PO DAILY [facility] Last Admin: 11/01/16 10:04 Dose: 10 mg Hydralazine HCl (Apresoline) 25 mg PO BID [facility] Last Admin: 10/26/16 09:49 Dose: 25 mg Cefepime HCl (Maxipime Iv 1 Gm Premix) 50 mls @ 100 mls/hr IVPB Q12H [facility] Last Admin: 11/01/16 11:10 Dose: 100 mls/hr Vancomycin HCl 1 gm/ Sodium (Chloride) 250 mls @ 166.7 mls/hr IVPB Q24H [facility] Last Admin: 11/01/16 14:05 Dose: 166.7 mls/hr Losartan Potassium (Cozaar) 100 mg PO DAILY [facility] Last Admin: 11/01/16 10:04 Dose: 100 mg Metoprolol Tartrate (Lopressor) 50 mg PO BID [facility] Last Admin: 11/01/16 10:04 Dose: 50 mg Pantoprazole Sodium (Protonix Susp) 40 mg PO DAILY [facility] Last Admin: 11/01/16 10:04 Dose: 40 mg - Labs Labs: 11/01/16 08:03 11/01/16 08:03 PT 15.0 SECONDS (9.7-12.2) H 10/31/16 06:21 INR 1.3 10/31/16 06:21 APTT 30 SECONDS (21-34) 10/28/16 05:59 Attending/Attestation - Attestation I have personally seen and examined this patient.: Yes I have fully participated in the care of the patient.: Yes I have reviewed all pertinent clinical information, including history, physical exam and plan: Yes Notes (Text): 11/01/16 15:30 Medical Attending: Patient was seen and examined by me. Agree with the above note by the resident. Because of the fevers the patient has not been able to have PEG tube placement. The patient remains on mechincal ventilation via trach at this time. He also remains on IV abx as well, the WBC did increase to 19. ID has been notified. The most recent cultures that were positive were from 10/28 from the trach that were Serratia Sandra thank you Johny Saldana
[2016-11-01 08:11] LABS: BASO # 0.1 K/uL (0.0-0.2); BASO % 0.3 % (0.0-2.0); EOS # 0.2 K/uL (0.0-0.7); HEMATOCRIT 35.7 % (35.0-51.0); LYMPH # 1.4 K/uL (1.0-4.3); MEAN CELL VOLUME 81.8 fL (80.0-94.0); MEAN CORPUSCULAR HEMOGLOBIN 26.1 pg (27.0-31.0); MEAN CORPUSCULAR HGB CONC 31.9 g/dL (33.0-37.0); MEAN PLATELET VOLUME 9.5 fL (7.2-11.7); MONO # 0.9 K/uL (0.0-0.8); MONO % 4.9 % (0.0-10.0); PLATELET COUNT 290 K/uL (130-400); WHITE BLOOD COUNT 19.3 K/uL (4.8-10.8)
[2016-11-01 08:30] LABS: CHLORIDE 107 mmol/L (98-107)
[2016-11-01 08:31] LABS: POTASSIUM 4.1 mmol/L (3.6-5.2); SODIUM 145 mmol/L (132-148)
[2016-11-01 08:33] LABS: ALB/GLOB RATIO 0.9 (1.0-2.1); ALKALINE PHOSPHATASE 105 U/L (38-126); ALT/SGPT 75 U/L (21-72); AST/SGOT 49 U/L (17-59); BILIRUBIN,TOTAL 0.4 mg/dL (0.2-1.3); BLOOD UREA NITROGEN 37 mg/dL (9-20); CARBON DIOXIDE 24 mmol/L (22-30); GFR AFRICAN-AMERICAN > 60; GLUCOSE,RANDOM 139 mg/dL (75-110); TOTAL PROTEIN 6.7 g/dL (6.3-8.3)
[2016-11-01 08:34] LABS: CALCIUM 8.2 mg/dl (8.6-10.4); MAGNESIUM 2.3 mg/dL (1.6-2.3); PHOSPHOROUS 3.7 mg/dL (2.5-4.5)
[2016-11-01] MEDS: Pantoprazole 40 mg Susp UD PO SCH (10:04)
[2016-11-01 10:16] LABS: EOSINOPHIL 1 % (0-4); TOTAL CELLS COUNTED 100
[2016-11-01 10:21] LABS: GIANT PLATELETS PRESENT; NEUTROPHIL 84 % (50-75)
[2016-11-01] MEDS: Cefepime IV 1 gm in Dextrose 50 ML IVPB SCH ×2 (11:10→22:07)
--- NOTE | 2016-11-01 12:56 | RAD ---
HISTORY: s/p NGT insertion COMPARISON: 10/31/2016 and 10/25/2016 FINDINGS: LUNGS: Compared to 10/25/2016 exam the right infrahilar bronchovascular markings appear slightly increased in their prominence -either due to technique or a interval developing patchy infiltrate here. PLEURA: No significant pleural effusion identified, no pneumothorax apparent. CARDIOVASCULAR: Normal. OSSEOUS STRUCTURES: No significant abnormalities. VISUALIZED UPPER ABDOMEN: Normal. OTHER FINDINGS: The in situ tracheostomy tube is similar in position. The NG tube tip is in the gastric fundal region. IMPRESSION: The in situ tracheostomy tube and NG tube positions are as before Mild interval prominence of the right infrahilar bronchovascular markings either due to technique or subtle interval patchy infiltrate. Clinical follow-up recommended
--- NOTE | 2016-11-02 06:11 | CP.PCM.PN ---
<Marybel Taylor - Last Filed: 11/02/16 14:23> Subjective - Date & Time of Evaluation Date of Evaluation: 11/02/16 Time of Evaluation: 06:06 - Subjective Subjective: Internal medicine progress note for Dr. Saldana-Marybel Taylor, PGY-1 Pt S & E at bedside. Pt resting comfortably, arousable to voice, following simple commands in Mongolian. Still non verbal, moving extremities. Objective - Vital Signs/Intake and Output Vital Signs (last 24 hours): Temp Pulse Resp BP Pulse Ox 100.3 F H 94 H 18 128/87 98 11/02/16 00:00 11/02/16 00:00 11/02/16 00:00 11/02/16 00:00 11/02/16 00:00 Intake and Output: 11/01/16 11/02/16 18:59 06:59 Intake Total 500 Output Total 300 Balance 200 - Medications Medications: Current Medications Acetaminophen (Tylenol 325mg Tab) 650 mg PO Q6 PRN PRN Reason: Fever >100.4 F Last Admin: 10/31/16 22:08 Dose: 650 mg Amlodipine Besylate (Norvasc) 10 mg PO DAILY [facility] Last Admin: 11/01/16 10:04 Dose: 10 mg Hydralazine HCl (Apresoline) 25 mg PO BID [facility] Last Admin: 10/26/16 09:49 Dose: 25 mg Vancomycin HCl 1 gm/ Sodium (Chloride) 250 mls @ 166.7 mls/hr IVPB Q24H [facility] Last Admin: 11/01/16 14:05 Dose: 166.7 mls/hr Losartan Potassium (Cozaar) 100 mg PO DAILY [facility] Last Admin: 11/01/16 10:04 Dose: 100 mg Metoprolol Tartrate (Lopressor) 50 mg PO BID [facility] Last Admin: 11/01/16 17:31 Dose: 50 mg Pantoprazole Sodium (Protonix Susp) 40 mg PO DAILY [facility] Last Admin: 11/01/16 10:04 Dose: 40 mg - Labs Labs: 11/01/16 08:03 11/01/16 08:03 PT 15.0 SECONDS (9.7-12.2) H 10/31/16 06:21 INR 1.3 10/31/16 06:21 APTT 30 SECONDS (21-34) 10/28/16 05:59 - Constitutional Appears: Non-toxic, No Acute Distress - Head Exam Head Exam: ATRAUMATIC, NORMAL INSPECTION, NORMOCEPHALIC - Eye Exam Eye Exam: EOMI, Normal appearance, PERRL Pupil Exam: NORMAL ACCOMODATION, PERRL - ENT Exam ENT Exam: Mucous Membranes Moist, Normal Exam Additional comments: OG feeding tube in place - Neck Exam Neck Exam: Full ROM, Normal Inspection - Respiratory Exam Respiratory Exam: Clear to Ausculation Bilateral, NORMAL BREATHING PATTERN. absent: Rales, Rhonchi, Wheezes, Stridor Additional comments: Trach collar in place, on mech vent - Cardiovascular Exam Cardiovascular Exam: REGULAR RHYTHM, +S1, +S2 - GI/Abdominal Exam GI & Abdominal Exam: Soft, Normal Bowel Sounds. absent: Tenderness - Extremities Exam Extremities Exam: Normal Inspection. absent: Pedal Edema - Neurological Exam Neurological Exam: Alert, Awake - Psychiatric Exam Additional comments: Unable to assess, non verbal - Skin Skin Exam: Diaphoretic, Intact, Normal Color, Warm Assessment and Plan - Assessment and Plan (Free Text) Assessment: Neuro: Trach tube in place Continues to follows simple commands in Mongolian Neurology consult - Dr. Simpson advise to schedule trach and PEG. Hold antiplatelets for 4-6 weeks and maintain blood pressure above 100 systolic. Sedation as needed 10/24 CT Head: little interval change in the size of left thalamic hemorrhage 2.4x2.9 cm with intraventricular extension of hemorrhage and mild obstructive hydrocephalus. 2 mm midline shift from left to right with no evidence of herniation. Near complete resolution of hemorrhage within 4th ventricle. 10/19 CT Head: little interval change in the known 2.0 x 2.7 acute hematoma in left thalamus with intra ventricular extension of hemorrhage. Interval mild worsening of obstructive hydrocephalus. 10/18 CT Head: Left basal ganglia acute hemorrhage, possibly hypertensive with associated intraventricular hemorrhage and mass effect upon the left lateral aspect of the 3rd ventricle with the tip shift of the 3rd ventricle towards the right side. No generalized midline shift. Air-fluid level in sphenoid sinus common nonspecific. Please correlate for concern regarding acute sinusitis. Mild involutional changes. GCS - 8T (E4 VT M4) SALAMATOF II 10.0, 12% estimated non-operative mortality Cardio: Hypertension - controlled line placed 10/20/16 TLC left IJ @ 15 cm placed 10/19/16 Amlodipine 10 mg POQD Hydralazine 25 mg PO BID - currently being held- BP WNL Losartan 100 mg POQD Labetalol 200 mg PO Q12H Pulm: On mech vent s/p tracheostomy Trach tube care ABG: -10/29 pH 7.46, CO 35, O2 90, HCO3 26.0 -10/28 pH 7.46, CO2 35, O2 73, HCO3 25.9 -10/27 pH 7.49, CO2 33, O2 74, HCO3 26.5 -10/26 pH 7.5, CO2 32, O2 91, HCO3 26.6 -10/24 pH 7.47, CO2 35, O2 119, HCO3 26.5 -10/23 pH 7.47, CO2 33, O2 66, HCO3 25.5 -10/22 pH 7.52, CO2 33, O2 57, HCO3 28.1 -10/21 pH 7.48, CO2 38, O2 79, HCO3 28.5 -10/20 pH 7.46, CO2 37, O2 187 HCO3 26.9 -10/19 pH 7.46, CO2 38, O2 214, HCO3 27.4 Imaging 11/02 CXR - Interval improvement in the right lower lung since the previous study. Appropriate position of the right-sided PICC line with the tip is likely at the SVC right atrium junction 11/01 CXR - The in situ tracheostomy tube and NG tube positions are as before. Mild interval prominence of the right infrahilar bronchovascular markings either due to technique or subtle interval patchy infiltrate. Clinical follow- up recommended 10/31 CXR -In situ tracheostomy tube remains in good position. NGT w/tip overlying LUQ of the abdomen unchanged. Continued improvement right lung base. 10/28 CXR No focal airspace opacity 10/27 CXR No active disease 10/26 CXR - Mild venous congestion. Right hilar prominence 10/24 CXR Mild venous congestion. Mild right infrahilar prominence 10/23 CXR - Mild venous congestion. right hilar prominence. Biapical pleural thickening upper lobe granulomatous changes. lines and tubes in stable position. 10/22 CXR - Worsening consolidative changes to right mid to lower lung zone. lines and tubes in stable position. 10/20 CXR - Distal tip of an endotracheal tube terminates approximately 4.6 cm above the brisa. Left IJ approach Central venous catheter terminates at expected location of the left innominate vein. Nasogastric tube extends to expected location of the stomach 10/19 CXR New nasogastric tube extends to distal esophagus, above the diaphragm. Repositioning is advised. ET tube unchanged. No infiltrate. 10/18 CXR ET tube proximal to brisa, no acute pulmonary pathology official read pending -f/u AM CXR and ABG Head of bed to 30* Keep O2 Sat >92% f/u General surgery consult for tracheostomy and PEG placement GI: Feeding tube via oropharynx replaced 11/01 Position verified by CXR NGT was advanced 10/20 - d/c'd Consulted GI- Dr. Renteria- PEG tube placement when not having fevers/ leukocytosis Endo: Maintain euglycemia Heme: H&H: 11.8/37.5- stable Intracranial bleed No coagulopathy Contraindication for anticoagulation ID: Leukocytosis 16.9 from 19.3 Febrile over last 24H - Tmax 101.4 -Started Vanco 1gm Q24H -FU vanco through 11/02 11/01- apr work up sent: blood cxr, urine cxr, CXR, C diff stool 10/31- Trach asp cx pending 10/31 - Urine ([place]) cxr neg 10/25 Sputum cx: Serratia marcescens and Enterobactor aerogenes 10/21 Sputum cx: Klebsiella pneumoniae Hold change of antibiotics. Fully aware of the low grade temperature, and increase in WBCs. Patient is hemodynamically stable. IV Cefepime 1 gram 50 cc @ 100cc/hr Acetaminophen 650 mg Q6 PRN for fever ID following- Kathy Renal: BUN/Cr: 42/1.2- stable Electrolytes WNL Free water flushes 200c Q8H Monitor MSK: OOBTC, PT Eval and treat Check tracheostomy site for drainage, erythema, hematoma, signs of infection. : I/O Balance- 950/450= 500cc Monitor Prophylaxis: GI - Protonix 40 mg IVP daily DVT - contraindicated 09/15 to intracranial bleed Dispo: FU septic W/U- pending PICC line- gave verbal consent over the phone- consent in chart PEG placement when no longer spiking fevers SW eval for possible LTAC after PEG placement DW attending <Johny Saldana H - Last Filed: 11/02/16 15:51> Objective - Vital Signs/Intake and Output Vital Signs (last 24 hours): Temp Pulse Resp BP Pulse Ox 99.3 F 95 H 20 107/74 100 11/02/16 08:00 11/02/16 08:00 11/02/16 08:00 11/02/16 08:00 11/02/16 08:00 Intake and Output: 11/02/16 11/02/16 06:59 18:59 Intake Total 500 Output Total 300 Balance 200 - Medications Medications: Current Medications Acetaminophen (Tylenol 325mg Tab) 650 mg PO Q6 PRN PRN Reason: Fever >100.4 F Last Admin: 10/31/16 22:08 Dose: 650 mg Amlodipine Besylate (Norvasc) 10 mg PO DAILY [facility] Last Admin: 11/02/16 09:15 Dose: 10 mg Hydralazine HCl (Apresoline) 25 mg PO BID [facility] Last Admin: 10/26/16 09:49 Dose: 25 mg Vancomycin HCl 1 gm/ Sodium (Chloride) 250 mls @ 166.7 mls/hr IVPB Q24H [facility] Last Admin: 11/02/16 15:12 Dose: 166.7 mls/hr Losartan Potassium (Cozaar) 100 mg PO DAILY [facility] Last Admin: 11/02/16 09:15 Dose: 100 mg Metoprolol Tartrate (Lopressor) 50 mg PO BID [facility] Last Admin: 11/02/16 09:15 Dose: 50 mg Pantoprazole Sodium (Protonix Susp) 40 mg PO DAILY [facility] Last Admin: 11/02/16 09:15 Dose: 40 mg - Labs Labs: 11/02/16 07:10 11/02/16 07:10 PT 15.0 SECONDS (9.7-12.2) H 10/31/16 06:21 INR 1.3 10/31/16 06:21 APTT 30 SECONDS (21-34) 10/28/16 05:59 Attending/Attestation - Attestation I have personally seen and examined this patient.: Yes I have fully participated in the care of the patient.: Yes I have reviewed all pertinent clinical information, including history, physical exam and plan: Yes Notes (Text): Medical Attending: Patient was seen and examined by me. Agree with the above note by the resident. The patient was awake, alert, he was able to minimally interact with us during the exam. Family member present as well. The patient was also turned today during the exam - he did not have any open wounds at this time. At this time does not have a PEG tube. thank you Johny Saldana
[2016-11-02 07:47] LABS: BASO % 0.2 % (0.0-2.0); EOS # 0.1 K/uL (0.0-0.7); EOS % 0.7 % (0.0-4.0); HEMATOCRIT 37.5 % (35.0-51.0); LYMPH % 6.1 % (20.0-40.0); MEAN CELL VOLUME 82.4 fL (80.0-94.0); MEAN CORPUSCULAR HGB CONC 31.5 g/dL (33.0-37.0); MONO # 0.9 K/uL (0.0-0.8); MONO % 5.5 % (0.0-10.0); PLATELET COUNT 329 K/uL (130-400); RED CELL DISTRIBUTION WIDTH 13.9 % (11.5-14.5); WHITE BLOOD COUNT 16.9 K/uL (4.8-10.8)
[2016-11-02 07:52] LABS: CHLORIDE 111 mmol/L (98-107); SODIUM 150 mmol/L (132-148)
[2016-11-02 07:53] LABS: POTASSIUM 4.2 mmol/L (3.6-5.2)
[2016-11-02 07:54] LABS: GFR AFRICAN-AMERICAN > 60
[2016-11-02 07:55] LABS: ALB/GLOB RATIO 0.8 (1.0-2.1); ALKALINE PHOSPHATASE 108 U/L (38-126); ALT/SGPT 87 U/L (21-72); AST/SGOT 63 U/L (17-59); BILIRUBIN,TOTAL 0.4 mg/dL (0.2-1.3); BLOOD UREA NITROGEN 42 mg/dL (9-20); CARBON DIOXIDE 24 mmol/L (22-30); GLUCOSE,RANDOM 137 mg/dL (75-110); TOTAL PROTEIN 6.9 g/dL (6.3-8.3)
[2016-11-02 07:56] LABS: CALCIUM 8.3 mg/dl (8.6-10.4); MAGNESIUM 2.6 mg/dL (1.6-2.3)
[2016-11-02 08:40] LABS: BASOPHIL 1 % (0-2); MYELOCYTE 1 % (0-0); NEUTROPHIL 89 % (50-75); TOTAL CELLS COUNTED 100
[2016-11-02 08:41] LABS: LARGE PLATELETS PRESENT
[2016-11-02] MEDS: Pantoprazole 40 mg Susp UD PO SCH (09:15)
--- NOTE | 2016-11-02 14:26 | RAD ---
PROCEDURE: CHEST RADIOGRAPH, 1 VIEW HISTORY: verify right PICC COMPARISON: Comparison is made to the previous study dated 11/01/2016 FINDINGS: LUNGS: Interval improvement in the right lower lobe since the previous exam. Otherwise no interval change. PLEURA: No pneumothorax or pleural fluid seen. CARDIOVASCULAR: Normal. OSSEOUS STRUCTURES: No significant abnormalities. VISUALIZED UPPER ABDOMEN: Normal. OTHER FINDINGS: Interval insertion of right-sided PICC line with the tip is likely at the SVC right atrium junction. IMPRESSION: Interval improvement in the right lower lung since the previous study. Appropriate position of the right-sided PICC line with the tip is likely at the SVC right atrium junction .
[2016-11-03 07:25] LABS: BASO % 0.3 % (0.0-2.0); EOS # 0.1 K/uL (0.0-0.7); EOS % 0.6 % (0.0-4.0); HEMATOCRIT 37.5 % (35.0-51.0); LYMPH # 1.4 K/uL (1.0-4.3); LYMPH % 8.4 % (20.0-40.0); MEAN CELL VOLUME 83.4 fL (80.0-94.0); MEAN CORPUSCULAR HEMOGLOBIN 26.2 pg (27.0-31.0); MEAN CORPUSCULAR HGB CONC 31.4 g/dL (33.0-37.0); MEAN PLATELET VOLUME 10.6 fL (7.2-11.7); MONO # 0.9 K/uL (0.0-0.8); MONO % 5.4 % (0.0-10.0); PLATELET COUNT 326 K/uL (130-400); RED CELL DISTRIBUTION WIDTH 14.3 % (11.5-14.5); WHITE BLOOD COUNT 16.7 K/uL (4.8-10.8)
[2016-11-03 07:26] LABS: CHLORIDE 113 mmol/L (98-107)
[2016-11-03 07:27] LABS: POTASSIUM 3.9 mmol/L (3.6-5.2); SODIUM 155 mmol/L (132-148)
[2016-11-03 07:29] LABS: ALB/GLOB RATIO 0.8 (1.0-2.1); ALKALINE PHOSPHATASE 105 U/L (38-126); AST/SGOT 54 U/L (17-59); BILIRUBIN,TOTAL 0.7 mg/dL (0.2-1.3); BLOOD UREA NITROGEN 47 mg/dL (9-20); CARBON DIOXIDE 25 mmol/L (22-30); GFR AFRICAN-AMERICAN > 60; GLUCOSE,RANDOM 105 mg/dL (75-110); TOTAL PROTEIN 7.1 g/dL (6.3-8.3)
[2016-11-03 07:30] LABS: ALT/SGPT 76 U/L (21-72); MAGNESIUM 2.7 mg/dL (1.6-2.3)
[2016-11-03 08:57] LABS: EOSINOPHIL 1 % (0-4); NEUTROPHIL 88 % (50-75); TOTAL CELLS COUNTED 100
--- NOTE | 2016-11-03 10:00 | RAD ---
HISTORY: OGT position COMPARISON: 11/02/2016 at 1325 hours and 11/01/2016 FINDINGS: LUNGS: No active pulmonary disease. The right infrahilar bronchovascular marking confluence on the current study most similar to 11/01/2016 study. PLEURA: No significant pleural effusion identified, no pneumothorax apparent. CARDIOVASCULAR: Normal. OSSEOUS STRUCTURES: No significant abnormalities. VISUALIZED UPPER ABDOMEN: Normal. OTHER FINDINGS: right-sided PICC line tip at the SVC right atrial junction. Tracheostomy in place. OCT tip in stomach IMPRESSION: Support lines tubes - normally positioned No interval pathology noted
[2016-11-03] MEDS: Pantoprazole 40 mg Susp UD PO SCH (11:39)
--- NOTE | 2016-11-03 13:41 | CP.PCM.PN ---
<Marybel Taylor - Last Filed: 11/03/16 14:48> Subjective - Date & Time of Evaluation Date of Evaluation: 11/03/16 Time of Evaluation: 10:15 - Subjective Subjective: Internal medicine progress note for Dr. Saldana-Marybel Taylor, PGY-1 Pt S & E at bedside. Pt w/some SOB when being turned for cleaning over night as per nursing. Pt resting comfortably in bed, arousable to voice, following simple commands in [place]. Objective - Vital Signs/Intake and Output Vital Signs (last 24 hours): Temp Pulse Resp BP Pulse Ox 98.2 F 123 H 20 134/93 H 99 11/03/16 08:00 11/03/16 08:00 11/03/16 08:00 11/03/16 08:00 11/03/16 08:00 Intake and Output: 11/03/16 11/03/16 06:59 18:59 Intake Total 400 Output Total 1000 300 Balance -600 -300 - Medications Medications: Current Medications Acetaminophen (Tylenol 325mg Tab) 650 mg PO Q6 PRN PRN Reason: Fever >100.4 F Last Admin: 10/31/16 22:08 Dose: 650 mg Amlodipine Besylate (Norvasc) 10 mg PO DAILY [facility] Last Admin: 11/03/16 11:39 Dose: 10 mg Hydralazine HCl (Apresoline) 25 mg PO BID [facility] Last Admin: 10/26/16 09:49 Dose: 25 mg Vancomycin HCl 1 gm/ Sodium (Chloride) 250 mls @ 166.7 mls/hr IVPB Q24H [facility] Last Admin: 11/03/16 11:39 Dose: 166.7 mls/hr Losartan Potassium (Cozaar) 100 mg PO DAILY [facility] Last Admin: 11/03/16 11:39 Dose: 100 mg Metoprolol Tartrate (Lopressor) 50 mg PO BID [facility] Last Admin: 11/03/16 11:40 Dose: 50 mg Pantoprazole Sodium (Protonix Susp) 40 mg PO DAILY [facility] Last Admin: 11/03/16 11:39 Dose: 40 mg - Labs Labs: 11/03/16 06:59 11/03/16 06:59 PT 15.0 SECONDS (9.7-12.2) H 10/31/16 06:21 INR 1.3 10/31/16 06:21 APTT 30 SECONDS (21-34) 10/28/16 05:59 - Constitutional Appears: Non-toxic, No Acute Distress - Head Exam Head Exam: ATRAUMATIC, NORMAL INSPECTION, NORMOCEPHALIC Additional comments: OGT in place Trach collar in place - Eye Exam Eye Exam: EOMI, Normal appearance, PERRL Pupil Exam: NORMAL ACCOMODATION, PERRL - ENT Exam ENT Exam: Mucous Membranes Moist, Normal Exam Additional comments: Poor dentition - Neck Exam Additional comments: Trach collar in place, no drainage or mucus noted - on CPAP via mech vent - Respiratory Exam Respiratory Exam: Clear to Ausculation Bilateral, NORMAL BREATHING PATTERN. absent: Prolonged Expiratory Phase, Rales, Rhonchi, Wheezes, Stridor - Cardiovascular Exam Cardiovascular Exam: REGULAR RHYTHM, +S1, +S2 - GI/Abdominal Exam GI & Abdominal Exam: Soft, Normal Bowel Sounds. absent: Distended - Extremities Exam Extremities Exam: Normal Inspection - Neurological Exam Neurological Exam: Alert, Awake Additional comments: Unable to assess more, pt not verbal - Psychiatric Exam Additional comments: Unable to assess, non verbal - Skin Skin Exam: Diaphoretic, Intact, Normal Color, Warm Assessment and Plan - Assessment and Plan (Free Text) Assessment: Neuro: Trach tube in place Continues to follows simple commands in [place] Neurology consult - Dr. Simpson advise to schedule trach and PEG. Hold antiplatelets for 4-6 weeks and maintain blood pressure above 100 systolic. Sedation as needed 10/24 CT Head: little interval change in the size of left thalamic hemorrhage 2.4x2.9 cm with intraventricular extension of hemorrhage and mild obstructive hydrocephalus. 2 mm midline shift from left to right with no evidence of herniation. Near complete resolution of hemorrhage within 4th ventricle. 10/19 CT Head: little interval change in the known 2.0 x 2.7 acute hematoma in left thalamus with intra ventricular extension of hemorrhage. Interval mild worsening of obstructive hydrocephalus. 10/18 CT Head: Left basal ganglia acute hemorrhage, possibly hypertensive with associated intraventricular hemorrhage and mass effect upon the left lateral aspect of the 3rd ventricle with the tip shift of the 3rd ventricle towards the right side. No generalized midline shift. Air-fluid level in sphenoid sinus common nonspecific. Please correlate for concern regarding acute sinusitis. Mild involutional changes. GCS - 8T (E4 VT M4) [place] CHIN II 10.0, 12% estimated non-operative mortality 11/03- FU CT brain w/o cont for re-evaluation of bleed Cardio: Hypertension - controlled BP 134/94 line placed 10/20/16 TLC left IJ @ 15 cm placed 10/19/16 Amlodipine 10 mg POQD Hydralazine 25 mg PO BID - currently being held- BP WNL Losartan 100 mg POQD Labetalol 200 mg PO Q12H Pulm: On [facility] vent s/p tracheostomy Trach tube care CPAP ABG: -10/29 pH 7.46, CO 35, O2 90, HCO3 26.0 -10/28 pH 7.46, CO2 35, O2 73, HCO3 25.9 -10/27 pH 7.49, CO2 33, O2 74, HCO3 26.5 -10/26 pH 7.5, CO2 32, O2 91, HCO3 26.6 -10/24 pH 7.47, CO2 35, O2 119, HCO3 26.5 -10/23 pH 7.47, CO2 33, O2 66, HCO3 25.5 -10/22 pH 7.52, CO2 33, O2 57, HCO3 28.1 -10/21 pH 7.48, CO2 38, O2 79, HCO3 28.5 -10/20 pH 7.46, CO2 37, O2 187 HCO3 26.9 -10/19 pH 7.46, CO2 38, O2 214, HCO3 27.4 Imaging 11/02/CXR - repeat CXR for replacement of OGT w/Support lines tubes - normally positioned No interval pathology noted 11/02 CXR - Interval improvement in the right lower lung since the previous study. Appropriate position of the right-sided PICC line with the tip is likely at the SVC right atrium junction 11/01 CXR - The in situ tracheostomy tube and NG tube positions are as before. Mild interval prominence of the right infrahilar bronchovascular markings either due to technique or subtle interval patchy infiltrate. Clinical follow- up recommended 10/31 CXR -In situ tracheostomy tube remains in good position. NGT w/tip overlying LUQ of the abdomen unchanged. Continued improvement right lung base. 10/28 CXR No focal airspace opacity 10/27 CXR No active disease 10/26 CXR - Mild venous congestion. Right hilar prominence 10/24 CXR Mild venous congestion. Mild right infrahilar prominence 10/23 CXR - Mild venous congestion. right hilar prominence. Biapical pleural thickening upper lobe granulomatous changes. lines and tubes in stable position. 10/22 CXR - Worsening consolidative changes to right mid to lower lung zone. lines and tubes in stable position. 10/20 CXR - Distal tip of an endotracheal tube terminates approximately 4.6 cm above the brisa. Left IJ approach Central venous catheter terminates at expected location of the left innominate vein. Nasogastric tube extends to expected location of the stomach 10/19 CXR New nasogastric tube extends to distal esophagus, above the diaphragm. Repositioning is advised. ET tube unchanged. No infiltrate. 10/18 CXR ET tube proximal to brisa, no acute pulmonary pathology official read pending -f/u AM CXR and ABG Head of bed to 30* Keep O2 Sat >92% f/u General surgery consult for tracheostomy and PEG placement GI: Feeding tube via oropharynx replaced 11/02 after pt removed position verified by CXR Feeding tube via oropharynx replaced 11/01 Position verified by CXR NGT was advanced 10/20 - d/c'd Consulted GI- Dr. Renteria- PEG tube placement when not having fevers/ leukocytosis Endo: Maintain euglycemia Heme: H&H: 11.8/37.5- stable Intracranial bleed No coagulopathy Contraindication for anticoagulation ID: Leukocytosis 16.7 from 16.9 Afebrile over last 24H -Started Vanco 1gm Q24H vanco through 11/02 - 5.1 11/01- apr work up sent: blood cxr, urine cxr, CXR, C diff stool Blood cxr neg x 24H urine cxr neg 10/31- Trach asp cx - normal kalin 10/31 - Urine ([place]) cxr neg 10/25 Sputum cx: Serratia marcescens and Enterobactor aerogenes 10/21 Sputum cx: Klebsiella pneumoniae Hold change of antibiotics. Fully aware of the low grade temperature, and increase in WBCs. Patient is hemodynamically stable. IV Cefepime 1 gram 50 cc @ 100cc/hr Acetaminophen 650 mg Q6 PRN for fever ID following- Kathy Renal: BUN/Cr: 47/1.2- stable Hypernatremia Na 155 Increased Free water flushes 200c Q8H to 300cc Q8H Monitor MSK: OOBTC, PT Eval and treat Check tracheostomy site for drainage, erythema, hematoma, signs of infection. : I/O Balance- 400/1000= 600cc Condom catheter in place Monitor Prophylaxis: GI - Protonix 40 mg IVP daily DVT - contraindicated 09/15 to intracranial bleed Dispo: FU septic W/U- pending CT brain for re-evaluation of bleed PICC line placed PEG placement when no longer spiking fevers SW eval for possible LTAC after PEG placement DW attending <Johny Saldana H - Last Filed: 11/03/16 15:15> Objective - Vital Signs/Intake and Output Vital Signs (last 24 hours): Temp Pulse Resp BP Pulse Ox 98.2 F 123 H 20 134/93 H 99 11/03/16 08:00 11/03/16 08:00 11/03/16 08:00 11/03/16 08:00 11/03/16 08:00 Intake and Output: 11/03/16 11/03/16 06:59 18:59 Intake Total 400 Output Total 1000 300 Balance -600 -300 - Medications Medications: Current Medications Acetaminophen (Tylenol 325mg Tab) 650 mg PO Q6 PRN PRN Reason: Fever >100.4 F Last Admin: 10/31/16 22:08 Dose: 650 mg Amlodipine Besylate (Norvasc) 10 mg PO DAILY [facility] Last Admin: 11/03/16 11:39 Dose: 10 mg Hydralazine HCl (Apresoline) 25 mg PO BID [facility] Last Admin: 10/26/16 09:49 Dose: 25 mg Vancomycin HCl 1 gm/ Sodium (Chloride) 250 mls @ 166.7 mls/hr IVPB Q24H [facility] Last Admin: 11/03/16 11:39 Dose: 166.7 mls/hr Losartan Potassium (Cozaar) 100 mg PO DAILY [facility] Last Admin: 11/03/16 11:39 Dose: 100 mg Metoprolol Tartrate (Lopressor) 50 mg PO BID [facility] Last Admin: 11/03/16 11:40 Dose: 50 mg Pantoprazole Sodium (Protonix Susp) 40 mg PO DAILY [facility] Last Admin: 11/03/16 11:39 Dose: 40 mg - Labs Labs: 11/03/16 06:59 11/03/16 06:59 PT 15.0 SECONDS (9.7-12.2) H 10/31/16 06:21 INR 1.3 10/31/16 06:21 APTT 30 SECONDS (21-34) 10/28/16 05:59 Attending/Attestation - Attestation I have personally seen and examined this patient.: Yes I have fully participated in the care of the patient.: Yes I have reviewed all pertinent clinical information, including history, physical exam and plan: Yes Notes (Text): Medical Attending: Patient was seen and examined by me as well. Reviewed above note by resident and agree. Family member was present today and we discussed. I explained to them at length the problems that we could potentially face because the patient is not able to walk or move. These included open sacral wounds as well as the development of PE The patient still had an elevated temperature in the morning. At this time does not have PEG tube. The patient currently has OGT, also yesterday had a PICC Line placed as well. thank you Johny Saldana
--- NOTE | 2016-11-03 16:42 | CT ---
PROCEDURE: CT HEAD WITHOUT CONTRAST. HISTORY: re-evaluation of brain bleed COMPARISON: Comparison made with prior CT scan of the brain dated 10/24/2016 TECHNIQUE: Axial computed tomography images were obtained through the head/brain without intravenous contrast. Radiation dose: Total exam DLP = 1137.99 mGy-cm. FINDINGS: HEMORRHAGE: Previously noted left basal ganglia hematoma has undergone both decreased size and density. Well-demarcated rim of low-attenuation that probably represents some combination of edema and necrotic brain tissue surrounds the hematoma extending peripherally into the anterolateral and posterolateral margins of the left basal ganglia. There is persistent compression of the left lateral ventricle as well as 3rd ventricle. Decreased amount of intraventricular hemorrhage. The ventricles are slightly less dilated than the prior study however temporal horns and atria remain somewhat more prominent than lateral ventricles and 3rd ventricle. BRAIN: Mild chronic periventricular, subcortical and few scattered basal nuclei ischemic changes are also felt to be present. Moderate generalized volume loss VENTRICLES: As above. CALVARIUM: No acute calvarial fracture seen. Sclerotic density right frontal calvarium likely represents bone island or osteoma. Small dural calcification left frontal region. PARANASAL SINUSES: Unremarkable as visualized. No significant inflammatory changes. MASTOID AIR CELLS: Unremarkable as visualized. No inflammatory changes. OTHER FINDINGS: None. IMPRESSION: Interval decrease in size and density left basal ganglia hematoma however well-circumscribed peripheral rim of low-attenuation edema about the hematoma likely represent some combination of brain edema as well as of brain necrosis. Intraventricular hemorrhage has diminished. Ventricles have also decreased in size though the temporal horns and atria remain prominent compared to the compressed remaining ventricular system. There is persistent compression of the 3rd and left lateral ventricle Chronic white matter and basal nuclei ischemic changes.
[2016-11-04 07:09] LABS: POTASSIUM 3.8 mmol/L (3.6-5.2)
[2016-11-04 07:11] LABS: BILIRUBIN,TOTAL 0.5 mg/dL (0.2-1.3); TOTAL PROTEIN 6.9 g/dL (6.3-8.3)
[2016-11-04 07:12] LABS: CALCIUM 8.7 mg/dl (8.6-10.4); MAGNESIUM 2.6 mg/dL (1.6-2.3)
[2016-11-04 07:20] LABS: BASO % 0.1 % (0.0-2.0); EOS % 0.1 % (0.0-4.0); HEMATOCRIT 40.2 % (35.0-51.0); LYMPH % 5.1 % (20.0-40.0); MEAN CELL VOLUME 83.8 fL (80.0-94.0); MEAN CORPUSCULAR HGB CONC 31.1 g/dL (33.0-37.0); MEAN PLATELET VOLUME 10.4 fL (7.2-11.7); MONO % 5.4 % (0.0-10.0); PLATELET COUNT 289 K/uL (130-400); RED CELL DISTRIBUTION WIDTH 14.4 % (11.5-14.5); WHITE BLOOD COUNT 19.4 K/uL (4.8-10.8)
[2016-11-04 07:45] LABS: ALB/GLOB RATIO 0.9 (1.0-2.1)
[2016-11-04] MEDS: Pantoprazole 40 mg Susp UD PO SCH (09:30)
[2016-11-04] MEDS: Sodium Chloride 0.45% 1,000 ML IV SCH ×2 (09:31→22:29)
[2016-11-04 10:48] LABS: BASOPHIL 1 % (0-2); MYELOCYTE 1 % (0-0); NEUTROPHIL 85 % (50-75); TOTAL CELLS COUNTED 100
--- NOTE | 2016-11-04 20:04 | CP.PCM.PN ---
Addendum entered and electronically signed by Marybel Taylor DO 11/04/16 20:09: Spoke with mary at bedside regarding CT brain findings at 5pm today. Original Note: <Marybel Taylor - Last Filed: 11/04/16 20:00> Subjective - Date & Time of Evaluation Date of Evaluation: 11/04/16 Time of Evaluation: 10:30 - Subjective Subjective: Internal medicine progress note for Dr. Saldana-Marybel Taylor, PGY-1 Pt S & E at bedside. Pt stable overnight as per nursing. Pt resting comfortably in bed, sleeping. Objective - Vital Signs/Intake and Output Vital Signs (last 24 hours): Temp Pulse Resp BP Pulse Ox 99.2 F 102 H 24 124/72 100 11/04/16 15:20 11/04/16 15:20 11/04/16 15:20 11/04/16 15:30 11/04/16 15:20 Intake and Output: 11/04/16 11/05/16 18:59 06:59 Intake Total 1200 Output Total 900 Balance 300 - Medications Medications: Current Medications Acetaminophen (Tylenol 325mg Tab) 650 mg PO Q6 PRN PRN Reason: Fever >100.4 F Last Admin: 11/04/16 09:55 Dose: 650 mg Amlodipine Besylate (Norvasc) 10 mg PO DAILY [facility] Last Admin: 11/04/16 09:30 Dose: 10 mg Hydralazine HCl (Apresoline) 25 mg PO BID [facility] Last Admin: 10/26/16 09:49 Dose: 25 mg Vancomycin HCl 1 gm/ Sodium (Chloride) 250 mls @ 166.7 mls/hr IVPB Q24H [facility] Last Admin: 11/04/16 10:21 Dose: 166.7 mls/hr Sodium Chloride (Sodium Chloride 0.45%) 1,000 mls @ 100 mls/hr IV .Q10H [facility] Last Admin: 11/04/16 09:31 Dose: 100 mls/hr Cefepime HCl 1 gm/ Dextrose 50 mls @ 100 mls/hr IVPB Q8H [facility] Last Admin: 11/04/16 15:59 Dose: 100 mls/hr Losartan Potassium (Cozaar) 100 mg PO DAILY [facility] Last Admin: 11/04/16 09:29 Dose: 100 mg Metoprolol Tartrate (Lopressor) 50 mg PO BID [facility] Last Admin: 11/04/16 17:33 Dose: 50 mg Pantoprazole Sodium (Protonix Susp) 40 mg PO DAILY [facility] Last Admin: 11/04/16 09:30 Dose: 40 mg - Labs Labs: 11/04/16 06:51 11/04/16 06:51 PT 15.0 SECONDS (9.7-12.2) H 10/31/16 06:21 INR 1.3 10/31/16 06:21 APTT 30 SECONDS (21-34) 10/28/16 05:59 - Constitutional Appears: Non-toxic, No Acute Distress - Head Exam Head Exam: ATRAUMATIC, NORMAL INSPECTION, NORMOCEPHALIC - Eye Exam Eye Exam: Normal appearance - Neck Exam Additional comments: Trach collar in place- no drainage or secretions - Respiratory Exam Respiratory Exam: Clear to Ausculation Bilateral, NORMAL BREATHING PATTERN. absent: Rales, Rhonchi, Wheezes, Respiratory Distress - Cardiovascular Exam Cardiovascular Exam: REGULAR RHYTHM, +S1, +S2 - GI/Abdominal Exam GI & Abdominal Exam: Soft, Normal Bowel Sounds. absent: Tenderness - Extremities Exam Extremities Exam: Full ROM, Normal Inspection - Back Exam Back Exam: NORMAL INSPECTION Additional comments: no sacral ulcers noted,l no skin break down - Neurological Exam Neurological Exam: Alert, Awake. absent: Oriented x3 - Psychiatric Exam Additional comments: non verbal, unable to assess - Skin Skin Exam: Dry, Intact, Normal Color, Warm Assessment and Plan - Assessment and Plan (Free Text) Assessment: Neuro: Trach tube in place Continues to follows simple commands in [place] Neurology consult - Dr. Simpson advise to schedule trach and PEG. Hold antiplatelets for 4-6 weeks and maintain blood pressure above 100 systolic. Sedation as needed 10/24 CT Head: little interval change in the size of left thalamic hemorrhage 2.4x2.9 cm with intraventricular extension of hemorrhage and mild obstructive hydrocephalus. 2 mm midline shift from left to right with no evidence of herniation. Near complete resolution of hemorrhage within 4th ventricle. 10/19 CT Head: little interval change in the known 2.0 x 2.7 acute hematoma in left thalamus with intra ventricular extension of hemorrhage. Interval mild worsening of obstructive hydrocephalus. 10/18 CT Head: Left basal ganglia acute hemorrhage, possibly hypertensive with associated intraventricular hemorrhage and mass effect upon the left lateral aspect of the 3rd ventricle with the tip shift of the 3rd ventricle towards the right side. No generalized midline shift. Air-fluid level in sphenoid sinus common nonspecific. Please correlate for concern regarding acute sinusitis. Mild involutional changes. GCS - 8T (E4 VT M4) [place] II 10.0, 12% estimated non-operative mortality 11/03- CT brain w/o cont for re-evaluation of bleed w/findings of Interval decrease in size and density left basal ganglia hematoma however well- circumscribed peripheral rim of low-attenuation edema about the hematoma likely represent some combination of brain edema as well as of brain necrosis. Intraventricular hemorrhage has diminished. Ventricles have also decreased in size though the temporal horns and atria remain prominent compared to the compressed remaining ventricular system. There is persistent compression of the 3rd and left lateral ventricle Chronic white matter and basal nuclei ischemic changes. Cardio: Hypertension - controlled BP 122/88 line placed 10/20/16 TLC left IJ @ 15 cm placed 10/19/16- discontinued Amlodipine 10 mg POQD Hydralazine 25 mg PO BID - currently being held- BP WNL Losartan 100 mg POQD Labetalol 200 mg PO Q12H [facility] Trach tube care CPAP ABG: -10/29 pH 7.46, CO 35, O2 90, HCO3 26.0 -10/28 pH 7.46, CO2 35, O2 73, HCO3 25.9 -16 pH 7.49, CO2 33, O2 74, HCO3 26.5 -10/26 pH 7.5, CO2 32, O2 91, HCO3 26.6 -10/24 pH 7.47, CO2 35, O2 119, HCO3 26.5 -10/23 pH 7.47, CO2 33, O2 66, HCO3 25.5 -11 pH 7.52, CO2 33, O2 57, HCO3 28.1 -10 pH 7.48, CO2 38, O2 79, HCO3 28.5 -10/20 pH 7.46, CO2 37, O2 187 HCO3 26.9 -8 pH 7.46, CO2 38, O2 214, HCO3 27.4 Imaging 11/02/CXR - repeat CXR for replacement of OGT w/Support lines tubes - normally positioned No interval pathology noted 11/02 CXR - Interval improvement in the right lower lung since the previous study. Appropriate position of the right-sided PICC line with the tip is likely at the SVC right atrium junction 11/01 CXR - The in situ tracheostomy tube and NG tube positions are as before. Mild interval prominence of the right infrahilar bronchovascular markings either due to technique or subtle interval patchy infiltrate. Clinical follow- up recommended 10/31 CXR -In situ tracheostomy tube remains in good position. NGT w/tip overlying LUQ of the abdomen unchanged. Continued improvement right lung base. 10/28 CXR No focal airspace opacity 10/27 CXR No active disease 10/26 CXR - Mild venous congestion. Right hilar prominence 10/24 CXR Mild venous congestion. Mild right infrahilar prominence 10/23 CXR - Mild venous congestion. right hilar prominence. Biapical pleural thickening upper lobe granulomatous changes. lines and tubes in stable position. 10/22 CXR - Worsening consolidative changes to right mid to lower lung zone. lines and tubes in stable position. 10/20 CXR - Distal tip of an endotracheal tube terminates approximately 4.6 cm above the brisa. Left IJ approach Central venous catheter terminates at expected location of the left innominate vein. Nasogastric tube extends to expected location of the stomach 10/19 CXR New nasogastric tube extends to distal esophagus, above the diaphragm. Repositioning is advised. ET tube unchanged. No infiltrate. 10/18 CXR ET tube proximal to brisa, no acute pulmonary pathology official read pending Head of bed to 30* Keep O2 Sat >92% GI: Feeding tube via oropharynx replaced 11/02 after pt removed position verified by CXR Feeding tube via oropharynx replaced 11/01 Position verified by CXR NGT was advanced 10/20 - d/c'd Consulted GI- Dr. Renteria- PEG tube placement when not having fevers/ leukocytosis Endo: Maintain euglycemia Heme: H&H: 12.5/40.2- stable Intracranial bleed No coagulopathy Contraindication for anticoagulation ID: Leukocytosis 19.4 from 16.7 - trending up Afebrile over last 24H -Started Vanco 1gm Q24H vanco through 11/02 - 5.1 11/01- sept work up sent: blood cxr, urine cxr, CXR, C diff stool Blood cxr neg x 48H urine cxr neg Bandemia 5 FU Vanc trough at 9am 3/25 3/20- Trach asp cx - normal kalin 10/31 - Urine ([place]) cxr neg 10/25 Sputum cx: Serratia marcescens and Enterobactor aerogenes 10/21 Sputum cx: Klebsiella pneumoniae Hold change of antibiotics. Fully aware of the low grade temperature, and increase in WBCs. Patient is hemodynamically stable. IV Cefepime 1 gram Q8H Acetaminophen 650 mg Q6 PRN for fever ID following- Kathy Renal: BUN/Cr: 47/1.2- stable Hypernatremia Na 161 Increased Free water flushes 200c Q8H to 300cc Q8H Started 1/2NS@ 100 Slowed tube feeds to 25cc Monitor MSK: PT Eval and treat Check tracheostomy site for drainage, erythema, hematoma, signs of infection. : I/O Balance- 1200/900= 300cc Condom catheter in place Monitor Prophylaxis: GI - Protonix 40 mg IVP daily DVT - contraindicated 2/2 to intracranial bleed Dispo: FU septic W/U for etiology of fevers PICC line in place PEG placement when no longer spiking fevers SW eval for possible LTAC after PEG placement DW attending <Johny Saldana H - Last Filed: 11/05/16 07:39> Objective - Vital Signs/Intake and Output Vital Signs (last 24 hours): Temp Pulse Resp BP Pulse Ox 101 F H 104 H 20 113/78 100 11/05/16 00:00 11/05/16 00:00 11/05/16 00:00 11/05/16 00:00 11/05/16 00:00 - Medications Medications: Current Medications Acetaminophen (Tylenol 325mg Tab) 650 mg PO Q6 PRN PRN Reason: Fever >100.4 F Last Admin: 11/05/16 01:28 Dose: 650 mg Amlodipine Besylate (Norvasc) 10 mg PO DAILY [facility] Last Admin: 11/04/16 09:30 Dose: 10 mg Hydralazine HCl (Apresoline) 25 mg PO BID [facility] Last Admin: 10/26/16 09:49 Dose: 25 mg Vancomycin HCl 1 gm/ Sodium (Chloride) 250 mls @ 166.7 mls/hr IVPB Q24H [facility] Last Admin: 11/04/16 10:21 Dose: 166.7 mls/hr Sodium Chloride (Sodium Chloride 0.45%) 1,000 mls @ 100 mls/hr IV .Q10H [facility] Last Admin: 11/04/16 22:29 Dose: 100 mls/hr Cefepime HCl 1 gm/ Dextrose 50 mls @ 100 mls/hr IVPB Q8H [facility] Last Admin: 11/05/16 06:31 Dose: 100 mls/hr Losartan Potassium (Cozaar) 100 mg PO DAILY [facility] Last Admin: 11/04/16 09:29 Dose: 100 mg Metoprolol Tartrate (Lopressor) 50 mg PO BID [facility] Last Admin: 11/04/16 17:33 Dose: 50 mg Pantoprazole Sodium (Protonix Susp) 40 mg PO DAILY [facility] Last Admin: 11/04/16 09:30 Dose: 40 mg - Labs Labs: 11/04/16 06:51 11/04/16 06:51 PT 15.0 SECONDS (9.7-12.2) H 10/31/16 06:21 INR 1.3 10/31/16 06:21 APTT 30 SECONDS (21-34) 10/28/16 05:59 Attending/Attestation - Attestation I have personally seen and examined this patient.: Yes I have fully participated in the care of the patient.: Yes I have reviewed all pertinent clinical information, including history, physical exam and plan: Yes Notes (Text): 11/05/16 07:35 Medical Attending: Patient was seen and examined by me. Agree with the above note by the resident The patient had return of the CT, it suggest the following: " Interval decrease in size and density left basal ganglia hematoma however well-circumscribed peripheral rim of low-attenuation edema about the hematoma likely represent some combination of brain edema as well as of brain necrosis. Intraventricular hemorrhage has diminished. Ventricles have also decreased in size though the temporal horns and atria remain prominent compared to the compressed remaining ventricular system. There is persistent compression of the 3rd and left lateral ventricle " Patient still does have fever. Currently does not have OGT placed on hold since having fevers. WBC is also elevated as well and he remains on PO abx. thank you Johny Saldana
--- NOTE | 2016-11-05 01:46 | CP.PCM.PN ---
<Johny Pereira - Last Filed: 11/05/16 09:38> Subjective - Date & Time of Evaluation Date of Evaluation: 11/05/16 Time of Evaluation: 00:35 - Subjective Subjective: Internal medicine progress note for Dr. Saldana. Patient seen and examined at bedside. Patient with fever overnight, Tmax 101 at midnight, tylenol administered. Pt resting comfortably in bed, sleeping, but arousable to voice, not following simple commands in [place]e. ROS unobtainable due to medical condition. Objective - Vital Signs/Intake and Output Vital Signs (last 24 hours): Temp Pulse Resp BP Pulse Ox 101 F H 104 H 20 113/78 100 11/05/16 00:00 11/05/16 00:00 11/05/16 00:00 11/05/16 00:00 11/05/16 00:00 Intake and Output: 11/04/16 11/05/16 18:59 06:59 Intake Total 1200 Output Total 900 Balance 300 - Medications Medications: Current Medications Acetaminophen (Tylenol 325mg Tab) 650 mg PO Q6 PRN PRN Reason: Fever >100.4 F Last Admin: 11/05/16 01:28 Dose: 650 mg Amlodipine Besylate (Norvasc) 10 mg PO DAILY [facility] Last Admin: 11/04/16 09:30 Dose: 10 mg Hydralazine HCl (Apresoline) 25 mg PO BID [facility] Last Admin: 10/26/16 09:49 Dose: 25 mg Vancomycin HCl 1 gm/ Sodium (Chloride) 250 mls @ 166.7 mls/hr IVPB Q24H [facility] Last Admin: 11/04/16 10:21 Dose: 166.7 mls/hr Sodium Chloride (Sodium Chloride 0.45%) 1,000 mls @ 100 mls/hr IV .Q10H [facility] Last Admin: 11/04/16 22:29 Dose: 100 mls/hr Cefepime HCl 1 gm/ Dextrose 50 mls @ 100 mls/hr IVPB Q8H [facility] Last Admin: 11/04/16 22:28 Dose: 100 mls/hr Losartan Potassium (Cozaar) 100 mg PO DAILY [facility] Last Admin: 11/04/16 09:29 Dose: 100 mg Metoprolol Tartrate (Lopressor) 50 mg PO BID [facility] Last Admin: 11/04/16 17:33 Dose: 50 mg Pantoprazole Sodium (Protonix Susp) 40 mg PO DAILY [facility] Last Admin: 11/04/16 09:30 Dose: 40 mg - Labs Labs: 11/04/16 06:51 11/04/16 06:51 PT 15.0 SECONDS (9.7-12.2) H 10/31/16 06:21 INR 1.3 10/31/16 06:21 APTT 30 SECONDS (21-34) 10/28/16 05:59 - Additional Findings Additional findings: - Constitutional Appears: Non-toxic, No Acute Distress - Head Exam Head Exam: ATRAUMATIC, NORMAL INSPECTION, NORMOCEPHALIC - Eye Exam Eye Exam: Normal appearance - Neck Exam Additional comments: Trach collar in place- no drainage or secretions - Respiratory Exam Respiratory Exam: Clear to Ausculation Bilateral, NORMAL BREATHING PATTERN. absent: Rales, Rhonchi, Wheezes, Respiratory Distress - Cardiovascular Exam Cardiovascular Exam: REGULAR RHYTHM, +S1, +S2 - GI/Abdominal Exam GI & Abdominal Exam: Soft, Normal Bowel Sounds. absent: Tenderness - Extremities Exam Extremities Exam: Full ROM, Normal Inspection - Back Exam Back Exam: NORMAL INSPECTION Additional comments: no sacral ulcers noted, no skin break down - Neurological Exam Neurological Exam: Alert, Awake. absent: Oriented x3 - Psychiatric Exam Additional comments: non verbal, unable to assess - Skin Skin Exam: Dry, Intact, Normal Color, Warm Assessment and Plan - Assessment and Plan (Free Text) Assessment: Neuro: 11/05: Trach tube in place, resting comfortably. Arousable but will not follow simple commands today. 11/04: Continues to follows simple commands in [place] Neurology consult - Dr. Simpson advise to schedule trach and PEG. Hold antiplatelets for 4-6 weeks and maintain blood pressure above 100 systolic. Sedation as needed 10/24 CT Head: little interval change in the size of left thalamic hemorrhage 2.4x2.9 cm with intraventricular extension of hemorrhage and mild obstructive hydrocephalus. 2 mm midline shift from left to right with no evidence of herniation. Near complete resolution of hemorrhage within 4th ventricle. 10/19 CT Head: little interval change in the known 2.0 x 2.7 acute hematoma in left thalamus with intra ventricular extension of hemorrhage. Interval mild worsening of obstructive hydrocephalus. 10/18 CT Head: Left basal ganglia acute hemorrhage, possibly hypertensive with associated intraventricular hemorrhage and mass effect upon the left lateral aspect of the 3rd ventricle with the tip shift of the 3rd ventricle towards the right side. No generalized midline shift. Air-fluid level in sphenoid sinus common nonspecific. Please correlate for concern regarding acute sinusitis. Mild involutional changes. GCS - 8T (E4 VT M4) [place] II 10.0, 12% estimated non-operative mortality 11/03- CT brain w/o cont for re-evaluation of bleed w/findings of Interval decrease in size and density left basal ganglia hematoma however well- circumscribed peripheral rim of low-attenuation edema about the hematoma likely represent some combination of brain edema as well as of brain necrosis. Intraventricular hemorrhage has diminished. Ventricles have also decreased in size though the temporal horns and atria remain prominent compared to the compressed remaining ventricular system. There is persistent compression of the 3rd and left lateral ventricle Chronic white matter and basal nuclei ischemic changes. Cardio: 11/05: BP WNL Hypertension - controlled BP 122/88 line placed 10/20/16 TLC left IJ @ 15 cm placed 10/19/16- discontinued Amlodipine 10 mg POQD Hydralazine 25 mg PO BID - currently being held- BP WNL Losartan 100 mg POQD Labetalol 200 mg PO Q12H Pulm: 11/05: Trach in place. On mech vent s/p tracheostomy Trach tube care CPAP ABG: -10/29 pH 7.46, CO 35, O2 90, HCO3 26.0 -10/28 pH 7.46, CO2 35, O2 73, HCO3 25.9 -16 pH 7.49, CO2 33, O2 74, HCO3 26.5 -15 pH 7.5, CO2 32, O2 91, HCO3 26.6 -10/24 pH 7.47, CO2 35, O2 119, HCO3 26.5 -12 pH 7.47, CO2 33, O2 66, HCO3 25.5 -11 pH 7.52, CO2 33, O2 57, HCO3 28.1 -10 pH 7.48, CO2 38, O2 79, HCO3 28.5 -10/20 pH 7.46, CO2 37, O2 187 HCO3 26.9 -8 pH 7.46, CO2 38, O2 214, HCO3 27.4 Imaging 11/02/CXR - repeat CXR for replacement of OGT w/Support lines tubes - normally positioned No interval pathology noted 11/02 CXR - Interval improvement in the right lower lung since the previous study. Appropriate position of the right-sided PICC line with the tip is likely at the SVC right atrium junction 11/01 CXR - The in situ tracheostomy tube and NG tube positions are as before. Mild interval prominence of the right infrahilar bronchovascular markings either due to technique or subtle interval patchy infiltrate. Clinical follow- up recommended 10/31 CXR -In situ tracheostomy tube remains in good position. NGT w/tip overlying LUQ of the abdomen unchanged. Continued improvement right lung base. 10/28 CXR No focal airspace opacity 10/27 CXR No active disease 10/26 CXR - Mild venous congestion. Right hilar prominence 10/24 CXR Mild venous congestion. Mild right infrahilar prominence 10/23 CXR - Mild venous congestion. right hilar prominence. Biapical pleural thickening upper lobe granulomatous changes. lines and tubes in stable position. 10/22 CXR - Worsening consolidative changes to right mid to lower lung zone. lines and tubes in stable position. 10/20 CXR - Distal tip of an endotracheal tube terminates approximately 4.6 cm above the brisa. Left IJ approach Central venous catheter terminates at expected location of the left innominate vein. Nasogastric tube extends to expected location of the stomach 10/19 CXR New nasogastric tube extends to distal esophagus, above the diaphragm. Repositioning is advised. ET tube unchanged. No infiltrate. 10/18 CXR ET tube proximal to brisa, no acute pulmonary pathology official read pending Head of bed to 30* Keep O2 Sat >92% GI: Feeding tube via oropharynx replaced 11/02 after pt removed position verified by CXR Feeding tube via oropharynx replaced 11/01 Position verified by CXR NGT was advanced 10/20 - d/c'd Consulted GI- Dr. Renteria- PEG tube placement when not having fevers/ leukocytosis Endo: Maintain euglycemia Heme: 11/05: H&H low, stable, continue to monitor H&H: 12.5/40.2- stable Intracranial bleed No coagulopathy Contraindication for anticoagulation ID: 11/05: Leukocytosis 21.8 from 19.4, 16.7 - trending up 11/05: Vanc trough - 5.1 Afebrile over last 24H -Started Vanco 1gm Q24H vanco through 11/02 - 5.1 11/01- apr work up sent: blood cxr, urine cxr, CXR, C diff stool Blood cxr neg x 48H urine cxr neg Bandemia 5 10/31- Trach asp cx - normal kalin 10/31 - Urine ([place]) cxr neg 10/25 Sputum cx: Serratia marcescens and Enterobactor aerogenes 10/21 Sputum cx: Klebsiella pneumoniae Hold change of antibiotics. Fully aware of the low grade temperature, and increase in WBCs. Patient is hemodynamically stable. IV Cefepime 1 gram Q8H Acetaminophen 650 mg Q6 PRN for fever ID following- Kathy Renal: 11/05: BUN/Cr: mildly elevated, stable 47/1.2- stable Hypernatremia Na 161 Increased Free water flushes 200c Q8H to 300cc Q8H Started 1/2NS@ 100 Slowed tube feeds to 25cc Monitor MSK: PT Eval and treat Check tracheostomy site for drainage, erythema, hematoma, signs of infection. : I/O Balance- 1200/900= 300cc Condom catheter in place Monitor Prophylaxis: GI - Protonix 40 mg IVP daily DVT - contraindicated 09/15 to intracranial bleed Dispo: FU septic W/U for etiology of fevers PICC line in place PEG placement when no longer spiking fevers SW eval for possible LTAC after PEG placement <Johny Saldana H - Last Filed: 11/05/16 10:49> Objective - Vital Signs/Intake and Output Vital Signs (last 24 hours): Temp Pulse Resp BP Pulse Ox 102.7 F H 104 H 20 117/77 95 11/05/16 09:59 11/05/16 08:15 11/05/16 08:00 11/05/16 08:00 11/05/16 08:00 - Medications Medications: Current Medications Acetaminophen (Tylenol 325mg Tab) 650 mg PO Q6 PRN PRN Reason: Fever >100.4 F Last Admin: 11/05/16 09:59 Dose: 650 mg Amlodipine Besylate (Norvasc) 10 mg PO DAILY [facility] Last Admin: 11/05/16 10:06 Dose: 10 mg Hydralazine HCl (Apresoline) 25 mg PO BID [facility] Last Admin: 10/26/16 09:49 Dose: 25 mg Vancomycin HCl 1 gm/ Sodium (Chloride) 250 mls @ 166.7 mls/hr IVPB Q24H [facility] Last Admin: 11/04/16 10:21 Dose: 166.7 mls/hr Sodium Chloride (Sodium Chloride 0.45%) 1,000 mls @ 100 mls/hr IV .Q10H [facility] Last Admin: 11/05/16 10:06 Dose: 100 mls/hr Cefepime HCl 1 gm/ Dextrose 50 mls @ 100 mls/hr IVPB Q8H [facility] Last Admin: 11/05/16 06:31 Dose: 100 mls/hr Losartan Potassium (Cozaar) 100 mg PO DAILY [facility] Last Admin: 11/05/16 10:06 Dose: 100 mg Metoprolol Tartrate (Lopressor) 50 mg PO BID [facility] Last Admin: 11/05/16 10:06 Dose: 50 mg Pantoprazole Sodium (Protonix Susp) 40 mg PO DAILY [facility] Last Admin: 11/05/16 10:05 Dose: 40 mg - Labs Labs: 11/05/16 07:27 11/05/16 07:27 PT 15.0 SECONDS (9.7-12.2) H 10/31/16 06:21 INR 1.3 10/31/16 06:21 APTT 30 SECONDS (21-34) 10/28/16 05:59 Attending/Attestation - Attestation I have personally seen and examined this patient.: Yes I have fully participated in the care of the patient.: Yes I have reviewed all pertinent clinical information, including history, physical exam and plan: Yes Notes (Text): 11/05/16 10:45 Medical Attending: Patient was seen and examined by me. He is still having elevated temperautres as well as an elevated WBC. Will stop one of his BP mediations, he is on IV abx at this time. The most recent cultures have been negative for three days but will repeat the UA, blood cultures again. The PICC Line was just placed 2 days ago, will also check another chest XRAY today. With reguards to the higher Na, yesterday decreased the OGT feeds - also changed to 1/2 NSS and there are free water flushes Reviewed the new head CT from yesterday and it does show that the bleeding has abated, but he still has unfortunately extensive brain damage. Overall situation/prognosis is not good. The previous few days I emphasized to some of the family members at bedside that because of the extensive brain damage he is very vulnerable to PE/DVT since he cannot be on anticoagulation. thank you Johny Saldana
[2016-11-05 07:48] LABS: BASO # 0.1 K/uL (0.0-0.2); BASO % 0.3 % (0.0-2.0); EOS % 0.1 % (0.0-4.0); HEMATOCRIT 38.7 % (35.0-51.0); LYMPH # 1.6 K/uL (1.0-4.3); LYMPH % 7.5 % (20.0-40.0); MEAN CELL VOLUME 84.5 fL (80.0-94.0); MEAN CORPUSCULAR HEMOGLOBIN 26.1 pg (27.0-31.0); MEAN CORPUSCULAR HGB CONC 30.9 g/dL (33.0-37.0); MONO # 1.1 K/uL (0.0-0.8); PLATELET COUNT 247 K/uL (130-400); RED CELL DISTRIBUTION WIDTH 14.6 % (11.5-14.5); WHITE BLOOD COUNT 21.8 K/uL (4.8-10.8)
[2016-11-05 08:02] LABS: POTASSIUM 3.8 mmol/L (3.6-5.2)
[2016-11-05 08:04] LABS: ALB/GLOB RATIO 0.8 (1.0-2.1); TOTAL PROTEIN 7.1 g/dL (6.3-8.3)
[2016-11-05 08:05] LABS: CALCIUM 8.4 mg/dl (8.6-10.4); MAGNESIUM 2.6 mg/dL (1.6-2.3)
[2016-11-05 08:06] LABS: BILIRUBIN,TOTAL 0.9 mg/dL (0.2-1.3)
[2016-11-05] MEDS: Pantoprazole 40 mg Susp UD PO SCH (10:05)
[2016-11-05] MEDS: Sodium Chloride 0.45% 1,000 ML IV SCH ×2 (10:06→14:21)
[2016-11-05 10:17] LABS: NEUTROPHIL 86 % (50-75); TOTAL CELLS COUNTED 100
[2016-11-05] MEDS ORDERED: Sodium Chloride 0.45% 1,000 ML IV SCH (11:10)
--- NOTE | 2016-11-05 12:58 | RAD ---
HISTORY: fever, on trach COMPARISON: 11/02/2016 FINDINGS: LUNGS: Patchy opacity at both bases, representing interval change. Followup advised. Possible pneumonia. PLEURA: No significant pleural effusion identified, no pneumothorax apparent. CARDIOVASCULAR: Tracheostomy tube. Right PICC catheter. Unchanged. Nasogastric tube unchanged. OSSEOUS STRUCTURES: No significant abnormalities. VISUALIZED UPPER ABDOMEN: Normal. OTHER FINDINGS: None. IMPRESSION: Bibasilar pulmonary opacities new since prior examination. Possible pneumonia. Followup advised. Lines and tubes unchanged.
--- NOTE | 2016-11-05 20:49 | CP.PCM.PN ---
Subjective - Date & Time of Evaluation Date of Evaluation: 11/05/16 Time of Evaluation: 03:15 - Subjective Subjective: dictated Objective - Vital Signs/Intake and Output Vital Signs (last 24 hours): Temp Pulse Resp BP Pulse Ox 102.5 F H 115 H 20 133/84 96 11/05/16 16:00 11/05/16 16:00 11/05/16 16:00 11/05/16 16:00 11/05/16 16:00 - Medications Medications: Current Medications Acetaminophen (Tylenol 325mg Tab) 650 mg PO Q6 PRN PRN Reason: Fever >100.4 F Last Admin: 11/05/16 09:59 Dose: 650 mg Amlodipine Besylate (Norvasc) 10 mg PO DAILY [facility] Last Admin: 11/05/16 10:06 Dose: 10 mg Hydralazine HCl (Apresoline) 25 mg PO BID [facility] Last Admin: 10/26/16 09:49 Dose: 25 mg Vancomycin HCl 1 gm/ Sodium (Chloride) 250 mls @ 166.7 mls/hr IVPB Q24H [facility] Last Admin: 11/05/16 12:08 Dose: 166.7 mls/hr Sodium Chloride (Sodium Chloride 0.45%) 1,000 mls @ 175 mls/hr IV .Q5H43M [facility] Last Admin: 11/05/16 14:21 Dose: 175 mls/hr Meropenem 500 mg/ Sodium (Chloride) 100 mls @ 100 mls/hr IVPB Q8 [facility] Metoprolol Tartrate (Lopressor) 50 mg PO BID [facility] Last Admin: 11/05/16 18:44 Dose: Not Given Pantoprazole Sodium (Protonix Susp) 40 mg PO DAILY [facility] Last Admin: 11/05/16 10:05 Dose: 40 mg Pantoprazole Sodium (Protonix Inj) 40 mg IVP DAILY [facility] Last Admin: 11/05/16 15:26 Dose: 40 mg - Labs Labs: 11/05/16 07:27 11/05/16 07:27 PT 15.0 SECONDS (9.7-12.2) H 10/31/16 06:21 INR 1.3 10/31/16 06:21 APTT 30 SECONDS (21-34) 10/28/16 05:59
--- NOTE | 2016-11-05 22:13 | PN ---
DATE: 11/05/2016 SUBJECTIVE: The patient was seen today as he was febrile. He had temperature of 103 and family was at the bedside. I was told that the triple lumen and NG tube has already been removed as he was havi ng fevers. He remains with a trach vent at this time. No feeding tube. No NG tube and NG tube was removed. PHYSICAL EXAMINATION: NECK: Supple. LUNGS: Clear. Coarse breath sounds heard. HEART: S1, S2 is tachycardic. ABDOMEN: Soft, nontender, no guarding, no rigidity present. EXTREMITIES: Have heat protectors. MEDICATIONS: He is on Tylenol, Norvasc. He is on cefepime 1 gram q.8, hydralazine, Lopressor, Christophe nix, and he is on vancomycin 1 gram. He is on Protonix. LABORATORY DATA: Show white count is 21.8 today, hemoglobin 11.9, hematocrit 38.7, platelet count is 247. Chemistry shows his sodium is 163. He remains very dry with hypernatremia, potassium 3.8, chl oride of 120. His AST is 62, ALT is 91, and alk phos 114. Cultures: Urine culture, blood cultures which were done on 11/01 are negative. His tracheal aspirate in the past had Serratia and Enterobact er, which were sensitive to cefepime, Rocephin and imipenem. He is status post stroke and I want to see his chest x-ray. Today, chest x-ray showed bibasilar pulmonary opacities, new since prior examin ation, possible pneumonia. He may have aspirated as the tube had come out. ASSESSMENT AND PLAN: I would change the Maxipime to meropenem at this time and will follow as he is febrile. Lisa Chavez MD cc: [id number] TT: 11/05/2016 22:12:40 Confirmation # [id number] Dictation # [id number] mn
[2016-11-05] MEDS ORDERED: Cefepime 1 GM in Sodium Chloride 0.9% 100 ML IVPB SCH (23:00)
[2016-11-05] MEDS: Meropenem 500 MG in Sodium Chloride 0.9% 100 ML IVPB SCH (23:18)
--- NOTE | 2016-11-06 00:11 | CP.PCM.PN ---
<Johny Pereira - Last Filed: 11/06/16 05:56> Subjective - Date & Time of Evaluation Date of Evaluation: 11/06/16 Time of Evaluation: 00:15 - Subjective Subjective: Internal medicine progress note for Dr. Saldana. Patient seen and examined at bedside. No acute events per nursing. Patient currently afebrile, cooling blanket in place, tylenol PRN. Pt resting comfortably in bed, awake, watching TV. He is able to follow simple commands in [place]ian like sticking out his tongue, or moving his R arm. ROS unobtainable due to medical condition. Objective - Vital Signs/Intake and Output Vital Signs (last 24 hours): Temp Pulse Resp BP Pulse Ox 102.5 F H 115 H 20 133/84 96 11/05/16 16:00 11/05/16 16:00 11/05/16 16:00 11/05/16 16:00 11/05/16 16:00 - Medications Medications: Current Medications Acetaminophen (Tylenol 325mg Tab) 650 mg PO Q6 PRN PRN Reason: Fever >100.4 F Last Admin: 11/05/16 09:59 Dose: 650 mg Amlodipine Besylate (Norvasc) 10 mg PO DAILY [facility] Last Admin: 11/05/16 10:06 Dose: 10 mg Hydralazine HCl (Apresoline) 25 mg PO BID [facility] Last Admin: 10/26/16 09:49 Dose: 25 mg Vancomycin HCl 1 gm/ Sodium (Chloride) 250 mls @ 166.7 mls/hr IVPB Q24H [facility] Last Admin: 11/05/16 12:08 Dose: 166.7 mls/hr Sodium Chloride (Sodium Chloride 0.45%) 1,000 mls @ 175 mls/hr IV .Q5H43M [facility] Last Admin: 11/05/16 14:21 Dose: 175 mls/hr Meropenem 500 mg/ Sodium (Chloride) 100 mls @ 100 mls/hr IVPB Q8 [facility] Last Admin: 11/05/16 23:18 Dose: 100 mls/hr Metoprolol Tartrate (Lopressor) 50 mg PO BID [facility] Last Admin: 11/05/16 18:44 Dose: Not Given Pantoprazole Sodium (Protonix Susp) 40 mg PO DAILY [facility] Last Admin: 11/05/16 10:05 Dose: 40 mg Pantoprazole Sodium (Protonix Inj) 40 mg IVP DAILY [facility] Last Admin: 11/05/16 15:26 Dose: 40 mg - Labs Labs: 11/05/16 07:27 11/05/16 07:27 PT 15.0 SECONDS (9.7-12.2) H 10/31/16 06:21 INR 1.3 10/31/16 06:21 APTT 30 SECONDS (21-34) 10/28/16 05:59 - Additional Findings Additional findings: - Constitutional Appears: Non-toxic, No Acute Distress - Head Exam Head Exam: ATRAUMATIC, NORMAL INSPECTION, NORMOCEPHALIC -OGT removed - Eye Exam Eye Exam: Normal appearance - Neck Exam Additional comments: Trach collar in place- no drainage or secretions - Respiratory Exam Respiratory Exam: Clear to Ausculation Bilateral, NORMAL BREATHING PATTERN. absent: Rales, Rhonchi, Wheezes, Respiratory Distress - Cardiovascular Exam Cardiovascular Exam: REGULAR RHYTHM, +S1, +S2 - GI/Abdominal Exam GI & Abdominal Exam: Soft, Normal Bowel Sounds. absent: Tenderness - Extremities Exam Extremities Exam: Full ROM, Normal Inspection - Back Exam Back Exam: NORMAL INSPECTION Additional comments: no sacral ulcers noted, no skin break down - Neurological Exam Neurological Exam: Alert, Awake. absent: Oriented x3 -Can move L arm; Does not move R arm -follows simple commands to move L arm and stick out tongue - Psychiatric Exam Additional comments: non verbal, unable to assess - Skin Skin Exam: Dry, Intact, Normal Color, Warm Assessment and Plan - Assessment and Plan (Free Text) Assessment: Neuro: 11/06: Trach in place, resting comfortably. Follows simple commands to protrude tongue and move L arm 11/05: did not follow simple commands 11/04: Continues to follows simple commands in [place]ian Neurology consult - Dr. Simpson advise to schedule trach and PEG. Hold antiplatelets for 4-6 weeks and maintain blood pressure above 100 systolic. Sedation as needed 10/24 CT Head: little interval change in the size of left thalamic hemorrhage 2.4x2.9 cm with intraventricular extension of hemorrhage and mild obstructive hydrocephalus. 2 mm midline shift from left to right with no evidence of herniation. Near complete resolution of hemorrhage within 4th ventricle. 10/19 CT Head: little interval change in the known 2.0 x 2.7 acute hematoma in left thalamus with intra ventricular extension of hemorrhage. Interval mild worsening of obstructive hydrocephalus. 10/18 CT Head: Left basal ganglia acute hemorrhage, possibly hypertensive with associated intraventricular hemorrhage and mass effect upon the left lateral aspect of the 3rd ventricle with the tip shift of the 3rd ventricle towards the right side. No generalized midline shift. Air-fluid level in sphenoid sinus common nonspecific. Please correlate for concern regarding acute sinusitis. Mild involutional changes. GCS - 8T (E4 VT M4) [place] 10.0, 12% estimated non-operative mortality 11/03- CT brain w/o cont for re-evaluation of bleed w/findings of Interval decrease in size and density left basal ganglia hematoma however well- circumscribed peripheral rim of low-attenuation edema about the hematoma likely represent some combination of brain edema as well as of brain necrosis. Intraventricular hemorrhage has diminished. Ventricles have also decreased in size though the temporal horns and atria remain prominent compared to the compressed remaining ventricular system. There is persistent compression of the 3rd and left lateral ventricle Chronic white matter and basal nuclei ischemic changes. Cardio: 11/06: BP elevated 161/99; continue to monitor 11/05: BP WNL Hypertension - controlled BP 122/88 line placed 10/20/16 TLC left IJ @ 15 cm placed 10/19/16- discontinued Amlodipine 10 mg POQD Hydralazine 25 mg PO BID - currently being held- BP WNL Losartan 100 mg POQD Labetalol 200 mg PO Q12H Pulm: 11/06: Trach in place. On [facility] vent s/p tracheostomy Trach tube care CPAP ABG: -10/29 pH 7.46, CO 35, O2 90, HCO3 26.0 -10/28 pH 7.46, CO2 35, O2 73, HCO3 25.9 -10/27 pH 7.49, CO2 33, O2 74, HCO3 26.5 -10/26 pH 7.5, CO2 32, O2 91, HCO3 26.6 -10/24 pH 7.47, CO2 35, O2 119, HCO3 26.5 -10/23 pH 7.47, CO2 33, O2 66, HCO3 25.5 -10/22 pH 7.52, CO2 33, O2 57, HCO3 28.1 -10/21 pH 7.48, CO2 38, O2 79, HCO3 28.5 -10/20 pH 7.46, CO2 37, O2 187 HCO3 26.9 -10/19 pH 7.46, CO2 38, O2 214, HCO3 27.4 Imaging 11/02/CXR - repeat CXR for replacement of OGT w/Support lines tubes - normally positioned No interval pathology noted 11/02 CXR - Interval improvement in the right lower lung since the previous study. Appropriate position of the right-sided PICC line with the tip is likely at the SVC right atrium junction 11/01 CXR - The in situ tracheostomy tube and NG tube positions are as before. Mild interval prominence of the right infrahilar bronchovascular markings either due to technique or subtle interval patchy infiltrate. Clinical follow- up recommended 10/31 CXR -In situ tracheostomy tube remains in good position. NGT w/tip overlying LUQ of the abdomen unchanged. Continued improvement right lung base. 10/28 CXR No focal airspace opacity 10/27 CXR No active disease 10/26 CXR - Mild venous congestion. Right hilar prominence 10/24 CXR Mild venous congestion. Mild right infrahilar prominence 10/23 CXR - Mild venous congestion. right hilar prominence. Biapical pleural thickening upper lobe granulomatous changes. lines and tubes in stable position. 10/22 CXR - Worsening consolidative changes to right mid to lower lung zone. lines and tubes in stable position. 10/20 CXR - Distal tip of an endotracheal tube terminates approximately 4.6 cm above the brisa. Left IJ approach Central venous catheter terminates at expected location of the left innominate vein. Nasogastric tube extends to expected location of the stomach 10/19 CXR New nasogastric tube extends to distal esophagus, above the diaphragm. Repositioning is advised. ET tube unchanged. No infiltrate. 10/18 CXR ET tube proximal to brisa, no acute pulmonary pathology official read pending Head of bed to 30* Keep O2 Sat >92% GI: 11/05: OGT removed due to possible contribution to fever/sepsis. Feeding tube via oropharynx replaced 11/02 after pt removed position verified by CXR Feeding tube via oropharynx replaced 11/01 Position verified by CXR NGT was advanced 10/20 - d/c'd Consulted GI- Dr. Renteria- PEG tube placement when not having fevers/ leukocytosis Endo: Maintain euglycemia Heme: 11/06: f/u H&H, monitor 11/05-11/06: H&H low, stable, continue to monitor H&H: 12.5/40.2- stable Intracranial bleed No coagulopathy Contraindication for anticoagulation ID: 11/06: Continue to monitor WBC 11/05: Leukocytosis 21.8 from 19.4, 16.7 - trending up 11/05: Vanc trough - 5.1 Afebrile over last 24H -Started Vanco 1gm Q24H vanco through 11/02 - 5.1 11/01- apr work up sent: blood cxr, urine cxr, CXR, C diff stool Blood cxr neg x 48H urine cxr neg Bandemia 5 10/31- Trach asp cx - normal kalin 10/31 - Urine ([place]) cxr neg 10/25 Sputum cx: Serratia marcescens and Enterobactor aerogenes 10/21 Sputum cx: Klebsiella pneumoniae Hold change of antibiotics. Fully aware of the low grade temperature, and increase in WBCs. Patient is hemodynamically stable. IV Cefepime 1 gram Q8H Acetaminophen 650 mg Q6 PRN for fever ID following- Kathy Renal: 11/06: continue to monitor 11/05: BUN/Cr: mildly elevated, stable 47/1.2- stable Hypernatremia Na 161 Increased Free water flushes 200c Q8H to 300cc Q8H Started 1/2NS@ 100 Slowed tube feeds to 25cc Monitor MSK: PT Eval and treat Check tracheostomy site for drainage, erythema, hematoma, signs of infection. : 11/05: I/O balance 300mL I/O Balance- 1200/900= 300cc Condom catheter in place Monitor Prophylaxis: GI - Protonix 40 mg IVP daily DVT - contraindicated 09/15 to intracranial bleed Dispo: FU septic W/U for etiology of fevers PICC line in place PEG placement when no longer spiking fevers SW eval for possible LTAC after PEG placement <Johny Saldana H - Last Filed: 11/06/16 10:54> Objective - Vital Signs/Intake and Output Vital Signs (last 24 hours): Temp Pulse Resp BP Pulse Ox 98.4 F 82 20 115/82 99 11/06/16 08:45 11/06/16 08:45 11/06/16 08:45 11/06/16 08:45 11/06/16 08:45 Intake and Output: 11/06/16 11/06/16 06:59 18:59 Intake Total 1325 Output Total 300 Balance 1025 - Medications Medications: Current Medications Acetaminophen (Tylenol 325mg Tab) 650 mg PO Q6 PRN PRN Reason: Fever >100.4 F Last Admin: 11/05/16 09:59 Dose: 650 mg Hydralazine HCl (Apresoline) 25 mg PO BID [facility] Last Admin: 10/26/16 09:49 Dose: 25 mg Vancomycin HCl 1 gm/ Sodium (Chloride) 250 mls @ 166.7 mls/hr IVPB Q24H [facility] Last Admin: 11/06/16 10:41 Dose: 166.7 mls/hr Sodium Chloride (Sodium Chloride 0.45%) 1,000 mls @ 175 mls/hr IV .Q5H43M [facility] Last Admin: 11/06/16 05:55 Dose: Not Given Meropenem 500 mg/ Sodium (Chloride) 100 mls @ 100 mls/hr IVPB Q8 [facility] Last Admin: 11/06/16 05:37 Dose: 100 mls/hr Pantoprazole Sodium (Protonix Inj) 40 mg IVP DAILY [facility] Last Admin: 11/06/16 10:42 Dose: 40 mg - Labs Labs: 11/06/16 07:09 11/06/16 07:09 PT 15.0 SECONDS (9.7-12.2) H 10/31/16 06:21 INR 1.3 10/31/16 06:21 APTT 30 SECONDS (21-34) 10/28/16 05:59 Attending/Attestation - Attestation I have personally seen and examined this patient.: Yes I have fully participated in the care of the patient.: Yes I have reviewed all pertinent clinical information, including history, physical exam and plan: Yes Notes (Text): Medical Attending: Patient was seen and examined by me. There was still some fever overnight and he now has cooling blankets. The abx were changed to include Meropenom IV, he is still on Vancomycin. We removed the OGT, we were concerned it could be causing infection - a chest XRAY yesterday suggest NEW bibasilar pulmonary opacities that could be pneumonia , the WBC decreased from yesterday with the change in abx as well as removal of the OGT. Will repeat the CXRAY again. Because of the elevated temperatures, and WBC - will hold the norvasc. His BP has been stable for the time being, we are give IVF As mentioned before the patient has had an extensive intracranial hemmorage and a repeat CT from 10/07 shows that the bleeding has abated, but he still has unfortunately extensive brain damage. Overall situation/prognosis is not good. Yesterday I met the patient's male relatives (normally it is two women) and I updated him/emphasized to the family members at bedside that because of the extensive brain damage he is very vulnerable to PE/DVT since he cannot be on anticoagulation. He is also very vulnerable to sacral wounds as well as other infections. thank you Johny Saldana 11/06/16 10:54
[2016-11-06] MEDS: Sodium Chloride 0.45% 1,000 ML IV SCH ×4 (01:12→12:11)
[2016-11-06] MEDS: Meropenem 500 MG in Sodium Chloride 0.9% 100 ML IVPB SCH ×3 (05:37→21:28)
[2016-11-06 07:35] LABS: BASO # 0.1 K/uL (0.0-0.2); BASO % 0.8 % (0.0-2.0); EOS % 0.2 % (0.0-4.0); HEMATOCRIT 37.6 % (35.0-51.0); LYMPH # 1.4 K/uL (1.0-4.3); LYMPH % 7.2 % (20.0-40.0); MEAN CELL VOLUME 83.8 fL (80.0-94.0); MEAN CORPUSCULAR HEMOGLOBIN 26.3 pg (27.0-31.0); MEAN CORPUSCULAR HGB CONC 31.4 g/dL (33.0-37.0); MEAN PLATELET VOLUME 10.7 fL (7.2-11.7); MONO # 0.8 K/uL (0.0-0.8); MONO % 4.1 % (0.0-10.0); PLATELET COUNT 210 K/uL (130-400); RED CELL DISTRIBUTION WIDTH 14.2 % (11.5-14.5); WHITE BLOOD COUNT 19.1 K/uL (4.8-10.8)
[2016-11-06 07:40] LABS: CHLORIDE 120 mmol/L (98-107)
[2016-11-06 07:41] LABS: POTASSIUM 3.8 mmol/L (3.6-5.2)
[2016-11-06 07:43] LABS: ALB/GLOB RATIO 0.8 (1.0-2.1); ALKALINE PHOSPHATASE 106 U/L (38-126); AST/SGOT 37 U/L (17-59); BILIRUBIN,TOTAL 0.9 mg/dL (0.2-1.3); BLOOD UREA NITROGEN 52 mg/dL (9-20); CARBON DIOXIDE 20 mmol/L (22-30); GFR AFRICAN-AMERICAN > 60; GLUCOSE,RANDOM 117 mg/dL (75-110); TOTAL PROTEIN 6.2 g/dL (6.3-8.3)
[2016-11-06 07:44] LABS: ALT/SGPT 63 U/L (21-72); CALCIUM 8.1 mg/dl (8.6-10.4); MAGNESIUM 2.5 mg/dL (1.6-2.3)
[2016-11-06 08:11] LABS: SODIUM 160 mmol/L (132-148)
[2016-11-06 09:58] LABS: NEUTROPHIL 82 % (50-75); TOTAL CELLS COUNTED 100
[2016-11-06 10:01] LABS: LARGE PLATELETS PRESENT
[2016-11-06] MEDS: Pantoprazole 40 mg Susp UD PO SCH (10:44)
[2016-11-07] MEDS: Sodium Chloride 0.45% 1,000 ML IV SCH ×4 (04:48→22:06)
[2016-11-07] MEDS: Meropenem 500 MG in Sodium Chloride 0.9% 100 ML IVPB SCH ×3 (05:38→22:03)
--- NOTE | 2016-11-07 11:01 | CP.PCM.PN ---
<Marybel Taylor - Last Filed: 11/07/16 16:56> Subjective - Date & Time of Evaluation Date of Evaluation: 11/07/16 Time of Evaluation: 07:15 - Subjective Subjective: Internal medicine progress note for Dr. Carrero-Marybel Taylor, PGY-1 Pt S & E at bedside. Per nursing- pt had PICC line and OGT removed overweekend. No other reports. Pt awake and alert during evaluation, continues to be non-verbal. No distress. Objective - Vital Signs/Intake and Output Vital Signs (last 24 hours): Temp Pulse Resp BP Pulse Ox 99 F 95 H 20 117/76 100 11/07/16 07:56 11/07/16 08:56 11/07/16 07:56 11/07/16 07:56 11/07/16 07:56 Intake and Output: 11/07/16 11/07/16 06:59 18:59 Intake Total 100 1400 Output Total 400 Balance 100 1000 - Medications Medications: Current Medications Acetaminophen (Tylenol 325mg Tab) 650 mg PO Q6 PRN PRN Reason: Fever >100.4 F Last Admin: 11/05/16 09:59 Dose: 650 mg Hydralazine HCl (Apresoline) 25 mg PO BID [facility] Last Admin: 10/26/16 09:49 Dose: 25 mg Vancomycin HCl 1 gm/ Sodium (Chloride) 250 mls @ 166.7 mls/hr IVPB Q24H [facility] Last Admin: 11/06/16 10:41 Dose: 166.7 mls/hr Sodium Chloride (Sodium Chloride 0.45%) 1,000 mls @ 175 mls/hr IV .Q5H43M [facility] Last Admin: 11/07/16 04:48 Dose: 175 mls/hr Meropenem 500 mg/ Sodium (Chloride) 100 mls @ 100 mls/hr IVPB Q8 [facility] Last Admin: 11/07/16 05:38 Dose: 100 mls/hr Pantoprazole Sodium (Protonix Inj) 40 mg IVP DAILY [facility] Last Admin: 11/07/16 09:18 Dose: 40 mg - Labs Labs: 11/06/16 07:09 11/06/16 07:09 PT 15.0 SECONDS (9.7-12.2) H 10/31/16 06:21 INR 1.3 10/31/16 06:21 APTT 30 SECONDS (21-34) 10/28/16 05:59 - Constitutional Appears: Non-toxic, No Acute Distress - Head Exam Head Exam: ATRAUMATIC, NORMAL INSPECTION, NORMOCEPHALIC - Eye Exam Eye Exam: EOMI, Normal appearance, PERRL Pupil Exam: NORMAL ACCOMODATION, PERRL - ENT Exam ENT Exam: Mucous Membranes Moist, Normal Exam Additional comments: Trach collar in place- no drainage noted - Neck Exam Additional comments: Trach collar - Respiratory Exam Respiratory Exam: Clear to Ausculation Bilateral, NORMAL BREATHING PATTERN. absent: Rales, Rhonchi, Wheezes, Respiratory Distress - Cardiovascular Exam Cardiovascular Exam: REGULAR RHYTHM, +S1, +S2 - GI/Abdominal Exam GI & Abdominal Exam: Soft, Normal Bowel Sounds. absent: Tenderness - Extremities Exam Extremities Exam: Normal Inspection. absent: Pedal Edema - Neurological Exam Neurological Exam: Alert, Awake. absent: CN II-XII Intact, Oriented x3 Additional comments: Non verbal - Psychiatric Exam Additional comments: non verbal - Skin Skin Exam: Intact, Normal Color, Warm Additional comments: Grossly oily face, otherwise dry skin Assessment and Plan - Assessment and Plan (Free Text) Assessment: Neuro/Intracranial bleed: 11/07: Resting comfortably, trach in place 11/06: Trach in place, resting comfortably. Follows simple commands to protrude tongue and move L arm 11/05: did not follow simple commands 11/04: Continues to follows simple commands in [place] [facility] consult - Dr. Simpson advise to schedule trach and PEG. Hold antiplatelets for 4-6 weeks and maintain blood pressure above 100 systolic. Sedation as needed 10/24 CT Head: little interval change in the size of left thalamic hemorrhage 2.4x2.9 cm with intraventricular extension of hemorrhage and mild obstructive hydrocephalus. 2 mm midline shift from left to right with no evidence of herniation. Near complete resolution of hemorrhage within 4th ventricle. 10/19 CT Head: little interval change in the known 2.0 x 2.7 acute hematoma in left thalamus with intra ventricular extension of hemorrhage. Interval mild worsening of obstructive hydrocephalus. 10/18 CT Head: Left basal ganglia acute hemorrhage, possibly hypertensive with associated intraventricular hemorrhage and mass effect upon the left lateral aspect of the 3rd ventricle with the tip shift of the 3rd ventricle towards the right side. No generalized midline shift. Air-fluid level in sphenoid sinus common nonspecific. Please correlate for concern regarding acute sinusitis. Mild involutional changes. GCS - 8T (E4 VT M4) [place] II 10.0, 12% estimated non-operative mortality 11/03- CT brain w/o cont for re-evaluation of bleed w/findings of Interval decrease in size and density left basal ganglia hematoma however well- circumscribed peripheral rim of low-attenuation edema about the hematoma likely represent some combination of brain edema as well as of brain necrosis. Intraventricular hemorrhage has diminished. Ventricles have also decreased in size though the temporal horns and atria remain prominent compared to the compressed remaining ventricular system. There is persistent compression of the 3rd and left lateral ventricle Chronic white matter and basal nuclei ischemic changes. Cardio/HTN: 11/06: BP elevated 161/99; continue to monitor 11/05: BP WNL Hypertension - controlled BP 122/88 line placed 10/20/16 TLC left IJ @ 15 cm placed 10/19/16- discontinued Amlodipine 10 mg POQD Hydralazine 25 mg PO BID - currently being held- BP WNL Losartan 100 mg POQD Labetalol 200 mg PO Q12H Pulm/Respiratory failure on mechanical vent: 11/06: Trach in place. On [facility] vent s/p tracheostomy Trach tube care CPAP ABG: -10/29 pH 7.46, CO 35, O2 90, HCO3 26.0 -10/28 pH 7.46, CO2 35, O2 73, HCO3 25.9 -16 pH 7.49, CO2 33, O2 74, HCO3 26.5 -15 pH 7.5, CO2 32, O2 91, HCO3 26.6 -10/24 pH 7.47, CO2 35, O2 119, HCO3 26.5 -12 pH 7.47, CO2 33, O2 66, HCO3 25.5 -11 pH 7.52, CO2 33, O2 57, HCO3 28.1 -10 pH 7.48, CO2 38, O2 79, HCO3 28.5 -10/20 pH 7.46, CO2 37, O2 187 HCO3 26.9 -8 pH 7.46, CO2 38, O2 214, HCO3 27.4 Imaging 11/02/CXR - repeat CXR for replacement of OGT w/Support lines tubes - normally positioned No interval pathology noted 11/02 CXR - Interval improvement in the right lower lung since the previous study. Appropriate position of the right-sided PICC line with the tip is likely at the SVC right atrium junction 11/01 CXR - The in situ tracheostomy tube and NG tube positions are as before. Mild interval prominence of the right infrahilar bronchovascular markings either due to technique or subtle interval patchy infiltrate. Clinical follow- up recommended 10/31 CXR -In situ tracheostomy tube remains in good position. NGT w/tip overlying LUQ of the abdomen unchanged. Continued improvement right lung base. 10/28 CXR No focal airspace opacity 10/27 CXR No active disease 10/26 CXR - Mild venous congestion. Right hilar prominence 10/24 CXR Mild venous congestion. Mild right infrahilar prominence 10/23 CXR - Mild venous congestion. right hilar prominence. Biapical pleural thickening upper lobe granulomatous changes. lines and tubes in stable position. 10/22 CXR - Worsening consolidative changes to right mid to lower lung zone. lines and tubes in stable position. 10/20 CXR - Distal tip of an endotracheal tube terminates approximately 4.6 cm above the brisa. Left IJ approach Central venous catheter terminates at expected location of the left innominate vein. Nasogastric tube extends to expected location of the stomach 10/19 CXR New nasogastric tube extends to distal esophagus, above the diaphragm. Repositioning is advised. ET tube unchanged. No infiltrate. 10/18 CXR ET tube proximal to brisa, no acute pulmonary pathology official read pending Head of bed to 30* Keep O2 Sat >92% GI: 11/07: NPO- no access to stomach 11/05: OGT removed due to possible contribution to fever/sepsis. Feeding tube via oropharynx replaced 11/02 after pt removed position verified by CXR Feeding tube via oropharynx replaced 11/01 Position verified by CXR NGT was advanced 10/20 - d/c'd Consulted GI- Dr. Renteria- PEG tube placement when not having fevers/ leukocytosis Endo: Maintain euglycemia Heme: 11/07: FU H/H 11/06: f/u H&H, monitor 11/05-11/06: H&H low, stable, continue to monitor H&H: 12.5/40.2- stable Intracranial bleed No coagulopathy Contraindication for anticoagulation ID: 11/07: Afebrile over last 24H, FU WBC 11/06: Continue to monitor WBC 11/05: Leukocytosis 21.8 from 19.4, 16.7 - trending up 11/05: Vanc trough - 5.1 Afebrile over last 24H -Started Vanco 1gm Q24H vanco through 11/02 - 5.1 11/01- sept work up sent: blood cxr, urine cxr, CXR, C diff stool Blood cxr neg x 48H urine cxr neg Bandemia 5 10/31- Trach asp cx - normal kalin 10/31 - Urine ([place]) cxr neg 10/25 Sputum cx: Serratia marcescens and Enterobactor aerogenes 10/21 Sputum cx: Klebsiella pneumoniae Hold change of antibiotics. Fully aware of the low grade temperature, and increase in WBCs. Patient is hemodynamically stable. IV Cefepime 1 gram Q8H Acetaminophen 650 mg Q6 PRN for fever ID following- Kathy Hypernatremia: FU Na level Cont free water flushes 300cc Q8H Cont 1/2NS@ 175 Not currently on tube feeds Monitor MSK: PT Eval and treat Monitor tracheostomy site for drainage, erythema, hematoma, signs of infection. : 11/07: [id number] Monitor Prophylaxis: GI - Protonix 40 mg IVP daily DVT - contraindicated 09/15 to intracranial bleed Dispo: FU labs FU w/attending re: PICC replacement SW eval for possible LTAC after PEG placement Will replace OGT DW attending <Hussein Carrero - Last Filed: 11/08/16 10:31> Objective - Vital Signs/Intake and Output Vital Signs (last 24 hours): Temp Pulse Resp BP Pulse Ox 98.6 F 91 H 20 148/95 H 98 11/08/16 07:40 11/08/16 08:21 11/08/16 07:40 11/08/16 07:40 11/08/16 07:40 Intake and Output: 11/08/16 11/08/16 06:59 18:59 Intake Total 2800 Output Total 1300 Balance 1500 - Medications Medications: Current Medications Acetaminophen (Tylenol 325mg Tab) 650 mg PO Q6 PRN PRN Reason: Fever >100.4 F Last Admin: 11/05/16 09:59 Dose: 650 mg Hydralazine HCl (Apresoline) 25 mg PO BID [facility] Last Admin: 10/26/16 09:49 Dose: 25 mg Vancomycin HCl 1 gm/ Sodium (Chloride) 250 mls @ 166.7 mls/hr IVPB Q24H [facility] Last Admin: 11/08/16 10:16 Dose: 166.7 mls/hr Sodium Chloride (Sodium Chloride 0.45%) 1,000 mls @ 175 mls/hr IV .Q5H43M [facility] Last Admin: 11/08/16 10:17 Dose: 175 mls/hr Meropenem 500 mg/ Sodium (Chloride) 100 mls @ 100 mls/hr IVPB Q8 [facility] Last Admin: 11/08/16 05:26 Dose: 100 mls/hr Pantoprazole Sodium (Protonix Inj) 40 mg IVP DAILY [facility] Last Admin: 11/08/16 10:16 Dose: 40 mg - Labs Labs: 11/08/16 06:56 11/08/16 06:56 PT 15.0 SECONDS (9.7-12.2) H 10/31/16 06:21 INR 1.3 10/31/16 06:21 APTT 30 SECONDS (21-34) 10/28/16 05:59 Assessment and Plan (1) Intracranial hemorrhage Status: Acute (2) CVA (cerebral vascular accident) Status: Acute (3) Pneumonia Status: Acute Attending/Attestation - Attestation I have personally seen and examined this patient.: Yes I have fully participated in the care of the patient.: Yes I have reviewed all pertinent clinical information, including history, physical exam and plan: Yes Notes (Text): Patient admitted with htn emergency and acute basal ganglia hemorrhage; s/p tracheostomy; PEG being deferred until infection free; Has been afebrile since ~24 hrs; abx switched from cefepime to meropenem yesterday; gram neg oleg in tracheal aspirate; Hypernatremia improving, will continue 1/2NS at 170 cc/hr, should decrease tomorrow; HTN med currently being held in setting of fever and low/normal BP; Dispo: Patient will need 24 hr nursing care; no insurance.
[2016-11-07 12:16] LABS: CHLORIDE 120 mmol/L (98-107)
[2016-11-07 12:17] LABS: POTASSIUM 3.7 mmol/L (3.6-5.2); SODIUM 153 mmol/L (132-148)
[2016-11-07 12:18] LABS: BASO # 0.1 K/uL (0.0-0.2); BASO % 0.4 % (0.0-2.0); EOS % 0.2 % (0.0-4.0); HEMATOCRIT 35.8 % (35.0-51.0); LYMPH # 1.5 K/uL (1.0-4.3); LYMPH % 9.2 % (20.0-40.0); MEAN CELL VOLUME 83.1 fL (80.0-94.0); MEAN CORPUSCULAR HEMOGLOBIN 25.7 pg (27.0-31.0); MEAN PLATELET VOLUME 10.9 fL (7.2-11.7); MONO # 0.6 K/uL (0.0-0.8); MONO % 3.8 % (0.0-10.0); NRBC % 0.1 % (0.0-2.0); PLATELET COUNT 201 K/uL (130-400); RED CELL DISTRIBUTION WIDTH 14.2 % (11.5-14.5); WHITE BLOOD COUNT 16.3 K/uL (4.8-10.8)
[2016-11-07 12:19] LABS: ALB/GLOB RATIO 0.7 (1.0-2.1); ALKALINE PHOSPHATASE 84 U/L (38-126); AST/SGOT 31 U/L (17-59); BILIRUBIN,TOTAL 0.5 mg/dL (0.2-1.3); CARBON DIOXIDE 20 mmol/L (22-30); GFR AFRICAN-AMERICAN > 60; TOTAL PROTEIN 5.7 g/dL (6.3-8.3)
[2016-11-07 12:20] LABS: ALT/SGPT 47 U/L (21-72); BLOOD UREA NITROGEN 51 mg/dL (9-20); GLUCOSE,RANDOM 97 mg/dL (75-110); MAGNESIUM 2.3 mg/dL (1.6-2.3); PHOSPHOROUS 4.1 mg/dL (2.5-4.5)
[2016-11-07 12:54] LABS: NEUTROPHIL 83 % (50-75); TOTAL CELLS COUNTED 100
[2016-11-08] MEDS: Sodium Chloride 0.45% 1,000 ML IV SCH ×6 (03:40→20:55)
[2016-11-08] MEDS: Meropenem 500 MG in Sodium Chloride 0.9% 100 ML IVPB SCH ×3 (05:26→22:12)
[2016-11-08 07:22] LABS: CHLORIDE 118 mmol/L (98-107); POTASSIUM 3.7 mmol/L (3.6-5.2); SODIUM 152 mmol/L (132-148)
[2016-11-08 07:24] LABS: AST/SGOT 35 U/L (17-59); BILIRUBIN,TOTAL 0.5 mg/dL (0.2-1.3); CARBON DIOXIDE 21 mmol/L (22-30); GFR AFRICAN-AMERICAN > 60
[2016-11-08 07:25] LABS: ALB/GLOB RATIO 0.7 (1.0-2.1); ALKALINE PHOSPHATASE 83 U/L (38-126); ALT/SGPT 41 U/L (21-72); BLOOD UREA NITROGEN 40 mg/dL (9-20); CALCIUM 7.9 mg/dl (8.6-10.4); GLUCOSE,RANDOM 90 mg/dL (75-110); TOTAL PROTEIN 5.6 g/dL (6.3-8.3)
[2016-11-08 07:26] LABS: MAGNESIUM 2.4 mg/dL (1.6-2.3)
[2016-11-08 08:28] LABS: BASO % 0.2 % (0.0-2.0); EOS % 0.3 % (0.0-4.0); HEMATOCRIT 33.5 % (35.0-51.0); LYMPH # 1.1 K/uL (1.0-4.3); LYMPH % 9.6 % (20.0-40.0); MEAN CELL VOLUME 83.3 fL (80.0-94.0); MEAN CORPUSCULAR HEMOGLOBIN 25.9 pg (27.0-31.0); MEAN CORPUSCULAR HGB CONC 31.1 g/dL (33.0-37.0); MEAN PLATELET VOLUME 11.2 fL (7.2-11.7); MONO # 0.4 K/uL (0.0-0.8); MONO % 3.6 % (0.0-10.0); PLATELET COUNT 176 K/uL (130-400); RED CELL DISTRIBUTION WIDTH 13.8 % (11.5-14.5); WHITE BLOOD COUNT 11.9 K/uL (4.8-10.8)
--- NOTE | 2016-11-08 08:28 | RAD ---
HISTORY: OGT placement COMPARISON: 11/05/2016 FINDINGS: LUNGS: Tracheostomy tube in place. Other lines and tubes in stable position. Mild patchy increased markings in the right infrahilar region. Biapical pleural thickening. PLEURA: No significant pleural effusion identified, no pneumothorax apparent. CARDIOVASCULAR: Normal. OSSEOUS STRUCTURES: No significant abnormalities. VISUALIZED UPPER ABDOMEN: Normal. OTHER FINDINGS: None. IMPRESSION: Tracheostomy tube in place. Other lines and tubes in stable position. Mild patchy increased markings in the right infrahilar region. Biapical pleural thickening.
[2016-11-08 09:07] LABS: NEUTROPHIL 89 % (50-75); TOTAL CELLS COUNTED 100
--- NOTE | 2016-11-08 09:25 | CP.PCM.PN ---
<Marybel Taylor - Last Filed: 11/08/16 15:41> Subjective - Date & Time of Evaluation Date of Evaluation: 11/08/16 Time of Evaluation: 07:30 - Subjective Subjective: Internal medicine progress note for Hospitalist service- Marybel Taylor, PGY-1 Pt S & E at bedside. Per nursing- no overnight events. Pt stable, continues to open eyes, minimally responsive to following commands in [place]ic. Objective - Vital Signs/Intake and Output Vital Signs (last 24 hours): Temp Pulse Resp BP Pulse Ox 98.6 F 91 H 20 148/95 H 98 11/08/16 07:40 11/08/16 08:21 11/08/16 07:40 11/08/16 07:40 11/08/16 07:40 Intake and Output: 11/08/16 11/08/16 06:59 18:59 Intake Total 2800 Output Total 1300 Balance 1500 - Medications Medications: Current Medications Acetaminophen (Tylenol 325mg Tab) 650 mg PO Q6 PRN PRN Reason: Fever >100.4 F Last Admin: 11/05/16 09:59 Dose: 650 mg Hydralazine HCl (Apresoline) 25 mg PO BID [facility] Last Admin: 10/26/16 09:49 Dose: 25 mg Vancomycin HCl 1 gm/ Sodium (Chloride) 250 mls @ 166.7 mls/hr IVPB Q24H [facility] Last Admin: 11/07/16 11:02 Dose: 166.7 mls/hr Sodium Chloride (Sodium Chloride 0.45%) 1,000 mls @ 175 mls/hr IV .Q5H43M [facility] Last Admin: 11/08/16 05:26 Dose: 175 mls/hr Meropenem 500 mg/ Sodium (Chloride) 100 mls @ 100 mls/hr IVPB Q8 [facility] Last Admin: 11/08/16 05:26 Dose: 100 mls/hr Pantoprazole Sodium (Protonix Inj) 40 mg IVP DAILY [facility] Last Admin: 11/07/16 09:18 Dose: 40 mg - Labs Labs: 11/08/16 06:56 11/08/16 06:56 PT 15.0 SECONDS (9.7-12.2) H 10/31/16 06:21 INR 1.3 10/31/16 06:21 APTT 30 SECONDS (21-34) 10/28/16 05:59 - Constitutional Appears: Non-toxic, No Acute Distress, Cachectic - Head Exam Head Exam: ATRAUMATIC, NORMAL INSPECTION, NORMOCEPHALIC - Eye Exam Eye Exam: EOMI, Normal appearance, PERRL Pupil Exam: NORMAL ACCOMODATION, PERRL - ENT Exam ENT Exam: Mucous Membranes Moist, Normal Exam - Neck Exam Additional comments: Trach collar in place - Respiratory Exam Respiratory Exam: Clear to Ausculation Bilateral, NORMAL BREATHING PATTERN. absent: Rales, Rhonchi, Wheezes, Stridor - Cardiovascular Exam Cardiovascular Exam: REGULAR RHYTHM, +S1, +S2 - GI/Abdominal Exam GI & Abdominal Exam: Soft, Normal Bowel Sounds. absent: Tenderness - Extremities Exam Extremities Exam: Normal Inspection. absent: Pedal Edema, Tenderness - Neurological Exam Neurological Exam: Alert, Awake. absent: Oriented x3 Additional comments: Non verbal - Psychiatric Exam Additional comments: Non verbal - Skin Skin Exam: Intact, Normal Color, Warm. 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 Follows simple commands to protrude tongue and move L arm 11/05: did not follow simple commands 11/04: Continues to follows simple commands in [place] Neurology consult - Dr. Simpson advise to schedule trach and PEG. Hold antiplatelets for 4-6 weeks and maintain blood pressure above 100 systolic. Sedation as needed 10/24 CT Head: little interval change in the size of left thalamic hemorrhage 2.4x2.9 cm with intraventricular extension of hemorrhage and mild obstructive hydrocephalus. 2 mm midline shift from left to right with no evidence of herniation. Near complete resolution of hemorrhage within 4th ventricle. 10/19 CT Head: little interval change in the known 2.0 x 2.7 acute hematoma in left thalamus with intra ventricular extension of hemorrhage. Interval mild worsening of obstructive hydrocephalus. 10/18 CT Head: Left basal ganglia acute hemorrhage, possibly hypertensive with associated intraventricular hemorrhage and mass effect upon the left lateral aspect of the 3rd ventricle with the tip shift of the 3rd ventricle towards the right side. No generalized midline shift. Air-fluid level in sphenoid sinus common nonspecific. Please correlate for concern regarding acute sinusitis. Mild involutional changes. GCS - 8T (E4 VT M4) [place] 10.0, 12% estimated non-operative mortality 11/03- CT brain w/o cont for re-evaluation of bleed w/findings of Interval decrease in size and density left basal ganglia hematoma however well- circumscribed peripheral rim of low-attenuation edema about the hematoma likely represent some combination of brain edema as well as of brain necrosis. Intraventricular hemorrhage has diminished. Ventricles have also decreased in size though the temporal horns and atria remain prominent compared to the compressed remaining ventricular system. There is persistent compression of the 3rd and left lateral ventricle Chronic white matter and basal nuclei ischemic changes. HTN: 11/08: BP 148/95, slight elevated, but mostly WNL- continue to hold Hydralazine 11/06: BP elevated 161/99; continue to monitor 11/05: BP WNL Amlodipine 10 mg POQD Hydralazine 25 mg PO BID - currently being held- BP WNL Losartan 100 mg POQD Labetalol 200 mg PO Q12H Respiratory failure on trach collar /mechanical vent: 11/08: Trial pt on trach collar w/o mech vent 11/07: Trach collar w/CPAP 11/06: Trach in place. On mech vent s/p tracheostomy Trach tube care CPAP ABG: -10/29 pH 7.46, CO 35, O2 90, HCO3 26.0 -10/28 pH 7.46, CO2 35, O2 73, HCO3 25.9 -16 pH 7.49, CO2 33, O2 74, HCO3 26.5 -15 pH 7.5, CO2 32, O2 91, HCO3 26.6 -13 pH 7.47, CO2 35, O2 119, HCO3 26.5 -12 pH 7.47, CO2 33, O2 66, HCO3 25.5 -11 pH 7.52, CO2 33, O2 57, HCO3 28.1 -10 pH 7.48, CO2 38, O2 79, HCO3 28.5 -9 pH 7.46, CO2 37, O2 187 HCO3 26.9 -/8 pH 7.46, CO2 38, O2 214, HCO3 27.4 Imaging 11/08 CXR-Tracheostomy tube in place. Other lines and tubes in stable position. Mild patchy increased markings in the right infrahilar region. Biapical pleural thickening. 11/02/CXR - repeat CXR for replacement of OGT w/Support lines tubes - normally positioned No interval pathology noted 11/02 CXR - Interval improvement in the right lower lung since the previous study. Appropriate position of the right-sided PICC line with the tip is likely at the SVC right atrium junction 11/01 CXR - The in situ tracheostomy tube and NG tube positions are as before. Mild interval prominence of the right infrahilar bronchovascular markings either due to technique or subtle interval patchy infiltrate. Clinical follow- up recommended 10/31 CXR -In situ tracheostomy tube remains in good position. NGT w/tip overlying LUQ of the abdomen unchanged. Continued improvement right lung base. 10/28 CXR No focal airspace opacity 10/27 CXR No active disease 10/26 CXR - Mild venous congestion. Right hilar prominence 10/24 CXR Mild venous congestion. Mild right infrahilar prominence 10/23 CXR - Mild venous congestion. right hilar prominence. Biapical pleural thickening upper lobe granulomatous changes. lines and tubes in stable position. 10/22 CXR - Worsening consolidative changes to right mid to lower lung zone. lines and tubes in stable position. 10/20 CXR - Distal tip of an endotracheal tube terminates approximately 4.6 cm above the brisa. Left IJ approach Central venous catheter terminates at expected location of the left innominate vein. Nasogastric tube extends to expected location of the stomach 10/19 CXR New nasogastric tube extends to distal esophagus, above the diaphragm. Repositioning is advised. ET tube unchanged. No infiltrate. 10/18 CXR ET tube proximal to brisa, no acute pulmonary pathology official read pending Head of bed to 30* Keep O2 Sat >92% Dysphagia 11/08- OGT placed last night, position verified- ok to use OGT for tube feeds 11/07: NPO- no access to stomach 11/05: OGT removed due to possible contribution to fever/sepsis. Feeding tube via oropharynx replaced 11/02 after pt removed position verified by CXR Feeding tube via oropharynx replaced 11/01 Position verified by CXR NGT was advanced 10/20 - d/c'd Consulted GI- Dr. Renteria- PEG tube placement when not having fevers/ leukocytosis Anemia 11/08: H/H 10.4/33.5 11/07: H/H 11.1/35.8 11/06: f/u H&H, monitor 11/05-11/06: H&H low, stable, continue to monitor H&H: 12.5/40.2- stable Intracranial bleed No coagulopathy Contraindication for anticoagulation Monitor Sepsis- resolving 11/08: Afebrile over last 24H, WBC 11.9, Bands 3 11/07: Afebrile over last 24H, WBC 16.3, Bands 6 Trach asp pos for Gram neg rods Blood cxr neg x 48H 11/06: Continue to monitor WBC 11/05: Leukocytosis 21.8 from 19.4, 16.7 - trending up 11/05: Vanc trough - 5.1 Afebrile over last 24H -Started Vanco 1gm Q24H vanco through 11/02 - 5.1 11/01- apr work up sent: blood cxr, urine cxr, CXR, C diff stool Blood cxr neg x 48H urine cxr neg Bandemia 5 10/31- Trach asp cx - normal kalin 10/31 - Urine ([place]) cxr neg 10/25 Sputum cx: Serratia marcescens and Enterobactor aerogenes 10/21 Sputum cx: Klebsiella pneumoniae Hold change of antibiotics. Fully aware of the low grade temperature, and increase in WBCs. Patient is hemodynamically stable. IV Cefepime 1 gram Q8H Acetaminophen 650 mg Q6 PRN for fever ID following- Kathy- continue Merrem and Vanco due to aspiration and pos Enterobacter Aerogenes Per Micro- Enterobacter aerogenes sensitive to merrem cont merrem Hypernatremia: Na 152- continues to down trend Na 153- down trending Cont free water flushes 300cc Q8H Cont 1/2NS@ 175 Re-started tube feeds Monitor Muscular deconditioning due to being bed bound PT Eval and treat Monitor tracheostomy site for drainage, erythema, hematoma, signs of infection. Prophylaxis: GI - Protonix 40 mg IVP daily DVT - contraindicated 2/2 to intracranial bleed Dispo: Con current mgmt Will rec-consult GI when pt is stable for PEG tube placement Restarted tube feeds Cont condom catheter Cont general body care FU w/attending re: PICC replacement SW eval for possible LTAC after PEG placement DW attending <Apple Vidal V - Last Filed: 11/08/16 18:59> Objective - Vital Signs/Intake and Output Vital Signs (last 24 hours): Temp Pulse Resp BP Pulse Ox 98.8 F 79 20 118/74 100 11/08/16 15:15 11/08/16 15:15 11/08/16 15:15 11/08/16 15:15 11/08/16 15:15 Intake and Output: 11/08/16 11/08/16 06:59 18:59 Intake Total 2800 1810 Output Total 1300 800 Balance 1500 1010 - Medications Medications: Current Medications Acetaminophen (Tylenol 325mg Tab) 650 mg PO Q6 PRN PRN Reason: Fever >100.4 F Last Admin: 11/05/16 09:59 Dose: 650 mg Hydralazine HCl (Apresoline) 25 mg PO BID [facility] Last Admin: 10/26/16 09:49 Dose: 25 mg Vancomycin HCl 1 gm/ Sodium (Chloride) 250 mls @ 166.7 mls/hr IVPB Q24H [facility] Last Admin: 11/08/16 10:16 Dose: 166.7 mls/hr Sodium Chloride (Sodium Chloride 0.45%) 1,000 mls @ 175 mls/hr IV .Q5H43M [facility] Last Admin: 11/08/16 10:17 Dose: 175 mls/hr Meropenem 500 mg/ Sodium (Chloride) 100 mls @ 100 mls/hr IVPB Q8 [facility] Last Admin: 11/08/16 13:26 Dose: 100 mls/hr Pantoprazole Sodium (Protonix Inj) 40 mg IVP DAILY [facility] Last Admin: 11/08/16 10:16 Dose: 40 mg - Labs Labs: 11/08/16 06:56 11/08/16 06:56 PT 15.0 SECONDS (9.7-12.2) H 10/31/16 06:21 INR 1.3 10/31/16 06:21 APTT 30 SECONDS (21-34) 10/28/16 05:59 Attending/Attestation - Attestation I have personally seen and examined this patient.: Yes I have fully participated in the care of the patient.: Yes I have reviewed all pertinent clinical information, including history, physical exam and plan: Yes Notes (Text): Patient seen, examined and case discussed with day-time resident. Patient seen at bedside with daughter at bedside. Patient had OGT tube replaced today; restarted free water flushes and IV fluids. Patient understands [place]ic; able to move left upper and left lower extremities passively unable to move right upper and lower extremities. Patient will blink at bedside and attempt to be communicative. Patient started trach collar trial; saturating well above 98% discussed with respiratory therapist. Patient's sputum culture is sensitive to Meropenem; resident checked with laboratory to confirm sensitivity and will continue Vancomcyin per discussion with infectious disease to cover for aspiration. Will order for vancomycin trough. Patient has yeast in urine; started for Diflucan 200mg IV Q 24hours Per neurology prior note (10/26/16), patient to hold antiplatelet therapy for 4- 6 weeks (which is about December 07 2016). Discontinue hydralazine. Patient's blood pressure controlled. Patient is afebrile and leukocytosis improving. Will monitor sodium if continues to downtrending; will reconsult GI to peg placement.
[2016-11-08] MEDS: Fluconazole IV 200mg/100 ml NS 100 ML IVPB SCH (20:45)
[2016-11-09] MEDS: Sodium Chloride 0.45% 1,000 ML IV SCH ×2 (03:00→12:29)
[2016-11-09] MEDS: Meropenem 500 MG in Sodium Chloride 0.9% 100 ML IVPB SCH ×3 (05:15→21:36)
[2016-11-09 07:47] LABS: BASO # 0.1 K/uL (0.0-0.2); BASO % 0.5 % (0.0-2.0); EOS # 0.1 K/uL (0.0-0.7); EOS % 0.8 % (0.0-4.0); HEMATOCRIT 39.3 % (35.0-51.0); LYMPH # 1.3 K/uL (1.0-4.3); LYMPH % 9.1 % (20.0-40.0); MEAN CELL VOLUME 83.7 fL (80.0-94.0); MEAN CORPUSCULAR HGB CONC 31.1 g/dL (33.0-37.0); MEAN PLATELET VOLUME 10.9 fL (7.2-11.7); MONO # 0.6 K/uL (0.0-0.8); MONO % 4.2 % (0.0-10.0); NRBC % 0.1 % (0.0-2.0); PLATELET COUNT 191 K/uL (130-400); RED CELL DISTRIBUTION WIDTH 14.1 % (11.5-14.5); WHITE BLOOD COUNT 14.1 K/uL (4.8-10.8)
[2016-11-09 08:04] LABS: CHLORIDE 110 mmol/L (98-107); POTASSIUM 3.8 mmol/L (3.6-5.2); SODIUM 147 mmol/L (132-148)
[2016-11-09 08:06] LABS: ALB/GLOB RATIO 0.7 (1.0-2.1); ALKALINE PHOSPHATASE 96 U/L (38-126); AST/SGOT 58 U/L (17-59); BILIRUBIN,TOTAL 0.7 mg/dL (0.2-1.3); CARBON DIOXIDE 22 mmol/L (22-30); GFR AFRICAN-AMERICAN > 60; TOTAL PROTEIN 6.3 g/dL (6.3-8.3)
[2016-11-09 08:07] LABS: ALT/SGPT 47 U/L (21-72); BLOOD UREA NITROGEN 29 mg/dL (9-20); GLUCOSE,RANDOM 101 mg/dL (75-110); PHOSPHOROUS 3.1 mg/dL (2.5-4.5)
[2016-11-09 08:08] LABS: MAGNESIUM 2.3 mg/dL (1.6-2.3)
[2016-11-09 08:35] LABS: EOSINOPHIL 1 % (0-4); NEUTROPHIL 85 % (50-75); TOTAL CELLS COUNTED 100
[2016-11-09] MEDS ORDERED: Fluconazole IV 200mg/100 ml NS 100 ML IVPB SCH (10:00)
--- NOTE | 2016-11-09 11:24 | CP.PCM.PN ---
Addendum entered and electronically signed by Marybel Taylor DO 11/09/16 11:36: Per ID: increase vanc to 1gm Q12H, FU vanc peak and trough on 3rd dose, cont diflucan Original Note: <Marybel Taylor - Last Filed: 11/09/16 11:24> Subjective - Date & Time of Evaluation Date of Evaluation: 11/09/16 Time of Evaluation: 06:15 - Subjective Subjective: Internal medicine progress note for Hospitalist service- Marybel Taylor, PGY-1 Pt S & E at bedside. Pt stable, continues to follow simple commands in Croatian with left side of body only. No events overnight per nursing. Objective - Vital Signs/Intake and Output Vital Signs (last 24 hours): Temp Pulse Resp BP Pulse Ox 97.8 F 73 20 164/94 H 99 11/09/16 07:19 11/09/16 07:19 11/09/16 07:19 11/09/16 07:19 11/09/16 07:19 Intake and Output: 11/09/16 11/09/16 06:59 18:59 Intake Total 3545 Output Total 1200 Balance 2345 - Medications Medications: Current Medications Acetaminophen (Tylenol 325mg Tab) 650 mg PO Q6 PRN PRN Reason: Fever >100.4 F Last Admin: 11/05/16 09:59 Dose: 650 mg Vancomycin HCl 1 gm/ Sodium (Chloride) 250 mls @ 166.7 mls/hr IVPB Q24H [facility] Last Admin: 11/08/16 10:16 Dose: 166.7 mls/hr Meropenem 500 mg/ Sodium (Chloride) 100 mls @ 100 mls/hr IVPB Q8 OMAR Last Admin: 11/09/16 05:15 Dose: 100 mls/hr Fluconazole (Diflucan Iv 200 Mg/100 Ml Ns) 100 mls @ 100 mls/hr IVPB Q24H [facility] Last Admin: 11/08/16 20:45 Dose: 100 mls/hr Sodium Chloride (Sodium Chloride 0.45%) 1,000 mls @ 75 mls/hr IV .[id number] [facility] Pantoprazole Sodium (Protonix Inj) 40 mg IVP DAILY [facility] Last Admin: 11/08/16 10:16 Dose: 40 mg Saccharomyces Boulardii (Florastor) 250 mg PO BID [facility] - Labs Labs: 11/09/16 07:37 11/09/16 07:37 PT 15.0 SECONDS (9.7-12.2) H 10/31/16 06:21 INR 1.3 10/31/16 06:21 APTT 30 SECONDS (21-34) 10/28/16 05:59 - Constitutional Appears: Non-toxic, No Acute Distress - Head Exam Head Exam: ATRAUMATIC, NORMAL INSPECTION, NORMOCEPHALIC - Eye Exam Eye Exam: EOMI, Normal appearance, PERRL Pupil Exam: NORMAL ACCOMODATION, PERRL - ENT Exam ENT Exam: Mucous Membranes Moist, Normal Exam - Neck Exam Additional comments: Trach collar in place - Respiratory Exam Respiratory Exam: Clear to Ausculation Bilateral, NORMAL BREATHING PATTERN. absent: Accessory Muscle Use, Chest Wall Tenderness, Prolonged Expiratory Phase , Rales, Rhonchi, Wheezes, Respiratory Distress, Stridor - Cardiovascular Exam Cardiovascular Exam: REGULAR RHYTHM, +S1, +S2 - GI/Abdominal Exam GI & Abdominal Exam: Soft, Normal Bowel Sounds. absent: Distended, Tenderness - Extremities Exam Extremities Exam: Normal Inspection. absent: Pedal Edema - Neurological Exam Neurological Exam: Alert, Awake. 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 Follows simple commands to protrude tongue and move L arm 11/05: did not follow simple commands 11/04: Continues to follows simple commands in Croatian Neurology consult - Dr. Simpson advise to schedule trach and PEG. Hold antiplatelets for 4-6 weeks and maintain blood pressure above 100 systolic. Sedation as needed 10/24 CT Head: little interval change in the size of left thalamic hemorrhage 2.4x2.9 cm with intraventricular extension of hemorrhage and mild obstructive hydrocephalus. 2 mm midline shift from left to right with no evidence of herniation. Near complete resolution of hemorrhage within 4th ventricle. 10/19 CT Head: little interval change in the known 2.0 x 2.7 acute hematoma in left thalamus with intra ventricular extension of hemorrhage. Interval mild worsening of obstructive hydrocephalus. 10/18 CT Head: Left basal ganglia acute hemorrhage, possibly hypertensive with associated intraventricular hemorrhage and mass effect upon the left lateral aspect of the 3rd ventricle with the tip shift of the 3rd ventricle towards the right side. No generalized midline shift. Air-fluid level in sphenoid sinus common nonspecific. Please correlate for concern regarding acute sinusitis. Mild involutional changes. GCS - 8T (E4 VT M4) [place] II 10.0, 12% estimated non-operative mortality 11/03- CT brain w/o cont for re-evaluation of bleed w/findings of Interval decrease in size and density left basal ganglia hematoma however well- circumscribed peripheral rim of low-attenuation edema about the hematoma likely represent some combination of brain edema as well as of brain necrosis. Intraventricular hemorrhage has diminished. Ventricles have also decreased in size though the temporal horns and atria remain prominent compared to the compressed remaining ventricular system. There is persistent compression of the 3rd and left lateral ventricle Chronic white matter and basal nuclei ischemic changes. HTN: 11/09: BP 169/94- same as previous 11/08: BP 148/95, slight elevated, but mostly WNL- continue to hold Hydralazine 11/06: BP elevated 161/99; continue to monitor 11/05: BP WNL Amlodipine 10 mg POQD Hydralazine 25 mg PO BID - currently being held- BP WNL Losartan 100 mg POQD Labetalol 200 mg PO Q12H Respiratory failure on trach collar /mechanical vent: 11/08: Trial pt on trach collar w/o mech vent Pulm consulted for trach weaning protocol- Leo 11/08: Trial pt on trach collar w/o mech vent 11/07: Trach collar w/CPAP 11/06: Trach in place. On mech vent s/p tracheostomy Trach tube care CPAP ABG: -10/29 pH 7.46, CO 35, O2 90, HCO3 26.0 -10/28 pH 7.46, CO2 35, O2 73, HCO3 25.9 -10/27 pH 7.49, CO2 33, O2 74, HCO3 26.5 -10/26 pH 7.5, CO2 32, O2 91, HCO3 26.6 -3/13 pH 7.47, CO2 35, O2 119, HCO3 26.5 -10/23 pH 7.47, CO2 33, O2 66, HCO3 25.5 -10/22 pH 7.52, CO2 33, O2 57, HCO3 28.1 -10/21 pH 7.48, CO2 38, O2 79, HCO3 28.5 -10/20 pH 7.46, CO2 37, O2 187 HCO3 26.9 -10/19 pH 7.46, CO2 38, O2 214, HCO3 27.4 Imaging 11/08 CXR-Tracheostomy tube in place. Other lines and tubes in stable position. Mild patchy increased markings in the right infrahilar region. Biapical pleural thickening. 11/02/CXR - repeat CXR for replacement of OGT w/Support lines tubes - normally positioned No interval pathology noted 11/02 CXR - Interval improvement in the right lower lung since the previous study. Appropriate position of the right-sided PICC line with the tip is likely at the SVC right atrium junction 11/01 CXR - The in situ tracheostomy tube and NG tube positions are as before. Mild interval prominence of the right infrahilar bronchovascular markings either due to technique or subtle interval patchy infiltrate. Clinical follow- up recommended 10/31 CXR -In situ tracheostomy tube remains in good position. NGT w/tip overlying LUQ of the abdomen unchanged. Continued improvement right lung base. 10/28 CXR No focal airspace opacity 10/27 CXR No active disease 10/26 CXR - Mild venous congestion. Right hilar prominence 10/24 CXR Mild venous congestion. Mild right infrahilar prominence 10/23 CXR - Mild venous congestion. right hilar prominence. Biapical pleural thickening upper lobe granulomatous changes. lines and tubes in stable position. 10/22 CXR - Worsening consolidative changes to right mid to lower lung zone. lines and tubes in stable position. 10/20 CXR - Distal tip of an endotracheal tube terminates approximately 4.6 cm above the brisa. Left IJ approach Central venous catheter terminates at expected location of the left innominate vein. Nasogastric tube extends to expected location of the stomach 10/19 CXR New nasogastric tube extends to distal esophagus, above the diaphragm. Repositioning is advised. ET tube unchanged. No infiltrate. 10/18 CXR ET tube proximal to brisa, no acute pulmonary pathology official read pending Head of bed to 30* Keep O2 Sat >92% Dysphagia 11/09: Tube feeds at 30cc/hr, no reported residuals. Advance by 10cc per day until goal of 50cc. 11/08- OGT placed last night, position verified- ok to use OGT for tube feeds 11/07: NPO- no access to stomach 11/05: OGT removed due to possible contribution to fever/sepsis. Feeding tube via oropharynx replaced 11/02 after pt removed position verified by CXR Feeding tube via oropharynx replaced 11/01 Position verified by CXR NGT was advanced 10/20 - d/c'd Consulted GI- Dr. Renteria- PEG tube placement when not having fevers/ leukocytosis Anemia- resolving 11/09: 12.2/39.3 11/08: H/H 10.4/33.5 11/07: H/H 11.1/35.8 11/06: f/u H&H, monitor 11/05-11/06: H&H low, stable, continue to monitor H&H: 12.5/40.2- stable Intracranial bleed No coagulopathy Contraindication for anticoagulation Monitor Sepsis 11/09: Afebrile over last 24H, WBC increased from 11.9 to 14.1; Blood/urine/ sputum cxr sent Vanc trough 8.4 Urine cxr pos for yeast Diflucan 200mg Q24H ordered ID consulted for adjustement of antibiotics/antifungals- awaiting recs 11/08: Afebrile over last 24H, WBC 11.9, Bands 3 11/07: Afebrile over last 24H, WBC 16.3, Bands 6 Trach asp pos for Gram neg rods Blood cxr neg x 48H 11/06: Continue to monitor WBC 11/05: Leukocytosis 21.8 from 19.4, 16.7 - trending up 11/05: Vanc trough - 5.1 Afebrile over last 24H -Started Vanco 1gm Q24H vanco through 11/02 - 5.1 11/01- apr work up sent: blood cxr, urine cxr, CXR, C diff stool Blood cxr neg x 48H urine cxr neg Bandemia 5 10/31- Trach asp cx - normal kalin 10/31 - Urine ([place]) cxr neg 10/25 Sputum cx: Serratia marcescens and Enterobactor aerogenes 10/21 Sputum cx: Klebsiella pneumoniae Hold change of antibiotics. Fully aware of the low grade temperature, and increase in WBCs. Patient is hemodynamically stable. IV Cefepime 1 gram Q8H Acetaminophen 650 mg Q6 PRN for fever ID following- Kathy- continue Merrem and Vanco due to aspiration and pos Enterobacter Aerogenes Per Micro- Enterobacter aerogenes sensitive to merrem cont merrem Hypernatremia- resolved: Na 147- WNL Na 152- continues to down trend Na 153- down trending Cont free water flushes 300cc Q8H Decreased 1/2NS@ 175 to 75cc/Hr Cont tube feeds Monitor Muscular deconditioning due to being bed bound PT Eval and treat Monitor tracheostomy site for drainage, erythema, hematoma, signs of infection. Prophylaxis: GI - Protonix 40 mg IVP daily DVT - contraindicated 2/2 to intracranial bleed Dispo: Con current mgmt Will rec-consult GI when pt is stable for PEG tube placement Cont tube feeds FU alcantara cultures FU ID recs FU Pulm recs Cont condom catheter Cont general body care SW eval for possible LTAC after PEG placement DW attending <Apple Vidal V - Last Filed: 11/09/16 23:39> Objective - Vital Signs/Intake and Output Vital Signs (last 24 hours): Temp Pulse Resp BP Pulse Ox 98.5 F 77 20 142/91 H 100 11/09/16 15:10 11/09/16 15:10 11/09/16 15:10 11/09/16 15:10 11/09/16 15:10 Intake and Output: 11/09/16 11/10/16 18:59 06:59 Intake Total 2320 Output Total 2800 Balance -480 - Medications Medications: Current Medications Acetaminophen (Tylenol 325mg Tab) 650 mg PO Q6 PRN PRN Reason: Fever >100.4 F Last Admin: 11/05/16 09:59 Dose: 650 mg Meropenem 500 mg/ Sodium (Chloride) 100 mls @ 100 mls/hr IVPB Q8 OMAR Last Admin: 11/09/16 21:36 Dose: 100 mls/hr Fluconazole (Diflucan Iv 200 Mg/100 Ml Ns) 100 mls @ 100 mls/hr IVPB Q24H [facility] Last Admin: 11/09/16 21:35 Dose: 100 mls/hr Sodium Chloride (Sodium Chloride 0.45%) 1,000 mls @ 75 mls/hr IV .[id number] [facility] Last Admin: 11/09/16 12:29 Dose: 75 mls/hr Vancomycin/Sodium Chloride (Vancocin) 200 mls @ 133.333 mls/hr IVPB Q12H [facility] Last Admin: 11/09/16 13:30 Dose: 133.333 mls/hr Pantoprazole Sodium (Protonix Inj) 40 mg IVP DAILY [facility] Last Admin: 11/09/16 11:30 Dose: 40 mg Saccharomyces Boulardii (Florastor) 250 mg PO BID [facility] Last Admin: 11/09/16 18:39 Dose: 250 mg - Labs Labs: 11/09/16 07:37 11/09/16 07:37 PT 15.0 SECONDS (9.7-12.2) H 10/31/16 06:21 INR 1.3 10/31/16 06:21 APTT 30 SECONDS (21-34) 10/28/16 05:59 Attending/Attestation - Attestation I have personally seen and examined this patient.: Yes I have fully participated in the care of the patient.: Yes I have reviewed all pertinent clinical information, including history, physical exam and plan: Yes Notes (Text): Patient seen, examined and case discussed with day-time resident. Patient's sodium continues to improved while on IV fluids and free water flushes via OGT. Patient also has persistent leukocytosis. Per ID, patient's vancomycin increased 1gram IV Q 12hours and f/u trough and to continue IV Diflucan for urine in yeast and IV meropenem given most recent sputum culture. Repeat cultures today and monitor for temperature and white count. If patient's leukocytosis improved while on antibiotics, will reconsult GI to consider peg placement. Patient is on trach collar off vent, saturating well. Will consult pulm to assist with weaning for patient's acute respiratory failure. Will repeat chest xray tomorrow. Pending result of sputum culure. (1) Intracranial hemorrhage Assessment & Plan: 10/18 CT Head: Left basal ganglia acute hemorrhage, possibly hypertensive with associated intraventricular hemorrhage and mass effect upon the left lateral aspect of the 3rd ventricle with the tip shift of the 3rd ventricle towards the right side. No generalized midline shift. Air-fluid level in sphenoid sinus common nonspecific. Please correlate for concern regarding acute sinusitis. Mild involutional changes. 10/19 CT Head: little interval change in the known 2.0 x 2.7 acute hematoma in left thalamus with intra ventricular extension of hemorrhage. Interval mild worsening of obstructive hydrocephalus. 10/24 CT Head: little interval change in the size of left thalamic hemorrhage 2.4x2.9 cm with intraventricular extension of hemorrhage and mild obstructive hydrocephalus. 2 mm midline shift from left to right with no evidence of herniation. Near complete resolution of hemorrhage within 4th ventricle. 11/03/16 CT Head; Interval decrease in size and density left basal ganglia hematoma; well-circumscribed peripheral rim of low attentuation edema about hematoma; combination of brain edema and brain necrosis; intraventricular hemorrhage has diminished. Ventricles hae also decreased in size temporal horns and atria remain prominent. Persistent compression of the 3rd and left lateral ventricle Neurosurgery per initial consult-->patient's prognosis dismal at beginning of admission Neurology (Dr. Simpson) on board-->per 10/26 note: patient has attained maximum response from neuro point of view from this admission; keep nutritional status and avoid infectious; treat with peg/trach; no antiplatelets for next 4-6 weeks (today is 2 week travis 11/09/16); maintain MAP ~100 Status: Acute (2) Hypertensive emergency Assessment & Plan: off anti-hypertensives medications Patient is currently on IV 1/2 NS 75cc/hr Will monitor blood pressure; mildly elevated Maintain MAP ~100 per neurology guidelines (3) Acute respiratory failure Assessment & Plan: s/p tracheostomy 10/28/16 Patient completed trach collar. Patient underwent trach collar trial yesterday, saturating well off vent. Pulmonary (Dr. Bailey) consulted to assist with weaning protocol Status: Acute (4) CVA (cerebral vascular accident) Assessment & Plan: Hemorrhagic stroke with associated hypotension and basal ganglia involvement (5) Sepsis Per 11/05; Fever 103F and associated leukocytosis: 21.8; infection: pneumonia Infectious disease on board (Dr. Chavez) 10/21 Sputum-Klebsiella (sensitive to Maxipime) 10/25 Serratia and Enterobacter (sensitive to Maxipime) 10/31 Sputum: normal 11/06: Enterobacter which is sensitive Meropenem 3/26 Urine culture: yeast All prior cultures are negative Abx: Meropenem 500mg IV Q 8 hours (active since 11/05/16) Vancomycin 1 gram IV W 12 hours (active since 11/01/16; dose adjusted for 11/09) (6) Hypernatremia within normal limits cut 1/2NS 175cc/hr to 75 cc/hr Free water: 250 water Q 4hours flushes withpeg (7) Prophylactic care * peg/trach * pending skilled nursing mangement * on free water flushes and IV fluids * chemical anticoagulation contraindicated given intravnetricula hemorrhage *
[2016-11-09] MEDS: Saccharomyces Boulardi 250 mg Cap PO SCH ×2 (11:30→18:39)
[2016-11-09] MEDS: Vancomycin 1 gm/NS 200 ml 200 ML IVPB SCH (13:30)
[2016-11-09] MEDS: Fluconazole IV 200mg/100 ml NS 100 ML IVPB SCH (21:35)
[2016-11-10] MEDS: Sodium Chloride 0.45% 1,000 ML IV SCH ×3 (00:30→14:43)
[2016-11-10] MEDS: Vancomycin 1 gm/NS 200 ml 200 ML IVPB SCH ×2 (01:00→13:54)
[2016-11-10] MEDS: Meropenem 500 MG in Sodium Chloride 0.9% 100 ML IVPB SCH ×3 (05:00→21:34)
[2016-11-10 07:36] LABS: CHLORIDE 108 mmol/L (98-107); SODIUM 142 mmol/L (132-148)
[2016-11-10 07:37] LABS: POTASSIUM 3.6 mmol/L (3.6-5.2)
[2016-11-10 07:39] LABS: ALB/GLOB RATIO 0.7 (1.0-2.1); ALKALINE PHOSPHATASE 85 U/L (38-126); ALT/SGPT 41 U/L (21-72); AST/SGOT 44 U/L (17-59); BILIRUBIN,TOTAL 0.4 mg/dL (0.2-1.3); BLOOD UREA NITROGEN 21 mg/dL (9-20); CARBON DIOXIDE 25 mmol/L (22-30); GFR AFRICAN-AMERICAN > 60; GLUCOSE,RANDOM 121 mg/dL (75-110); TOTAL PROTEIN 5.5 g/dL (6.3-8.3)
[2016-11-10 07:40] LABS: CALCIUM 7.7 mg/dl (8.6-10.4); MAGNESIUM 2.1 mg/dL (1.6-2.3); PHOSPHOROUS 2.6 mg/dL (2.5-4.5)
[2016-11-10 07:41] LABS: BASO % 0.3 % (0.0-2.0); EOS # 0.2 K/uL (0.0-0.7); EOS % 1.8 % (0.0-4.0); HEMATOCRIT 36.1 % (35.0-51.0); LYMPH # 1.2 K/uL (1.0-4.3); LYMPH % 9.5 % (20.0-40.0); MEAN CORPUSCULAR HEMOGLOBIN 26.2 pg (27.0-31.0); MEAN PLATELET VOLUME 10.6 fL (7.2-11.7); MONO # 0.6 K/uL (0.0-0.8); MONO % 4.6 % (0.0-10.0); PLATELET COUNT 180 K/uL (130-400); RED CELL DISTRIBUTION WIDTH 13.6 % (11.5-14.5); WHITE BLOOD COUNT 12.6 K/uL (4.8-10.8)
[2016-11-10 09:14] LABS: EOSINOPHIL 1 % (0-4); NEUTROPHIL 81 % (50-75); TOTAL CELLS COUNTED 100
[2016-11-10 09:17] LABS: LARGE PLATELETS PRESENT
[2016-11-10] MEDS: Saccharomyces Boulardi 250 mg Cap PO SCH ×2 (10:58→17:43)
[2016-11-10] MEDS ORDERED: Acetylcysteine 20% Inhal Soln (4ml) INH SCH (15:45)
--- NOTE | 2016-11-10 15:48 | CP.PCM.PN ---
<Marybel Taylor - Last Filed: 11/10/16 15:46> Subjective - Date & Time of Evaluation Date of Evaluation: 11/10/16 Time of Evaluation: 06:15 - Subjective Subjective: Internal medicine progress note for Hospitalist service- Marybel Taylor, PGY-1 Pt S & E at bedside. Pt stable, no changes overnight. No events overnight per nursing. Has some audible secretions. Objective - Vital Signs/Intake and Output Vital Signs (last 24 hours): Temp Pulse Resp BP Pulse Ox 98.6 F 82 19 135/90 97 11/10/16 07:26 11/10/16 07:26 11/10/16 07:26 11/10/16 07:26 11/10/16 07:26 Intake and Output: 11/10/16 11/10/16 06:59 18:59 Intake Total 1115 Output Total 700 700 Balance 415 -700 - Medications Medications: Current Medications Acetaminophen (Tylenol 325mg Tab) 650 mg PO Q6 PRN PRN Reason: Fever >100.4 F Last Admin: 11/05/16 09:59 Dose: 650 mg Acetylcysteine (Acetylcysteine 20%) 4 ml INH Q6H OMAR Meropenem 500 mg/ Sodium (Chloride) 100 mls @ 100 mls/hr IVPB Q8 OMAR Last Admin: 11/10/16 14:42 Dose: 100 mls/hr Fluconazole (Diflucan Iv 200 Mg/100 Ml Ns) 100 mls @ 100 mls/hr IVPB Q24H OMAR Last Admin: 11/09/16 21:35 Dose: 100 mls/hr Vancomycin/Sodium Chloride (Vancocin) 200 mls @ 133.333 mls/hr IVPB Q12H OMAR Last Admin: 11/10/16 13:54 Dose: Not Given Pantoprazole Sodium (Protonix Inj) 40 mg IVP DAILY OMAR Last Admin: 11/10/16 10:58 Dose: 40 mg Saccharomyces Boulardii (Florastor) 250 mg PO BID OMAR Last Admin: 11/10/16 10:58 Dose: 250 mg - Labs Labs: 11/10/16 07:06 11/10/16 07:06 PT 15.0 SECONDS (9.7-12.2) H 10/31/16 06:21 INR 1.3 10/31/16 06:21 APTT 30 SECONDS (21-34) 10/28/16 05:59 - Constitutional Appears: Non-toxic, No Acute Distress - Head Exam Head Exam: ATRAUMATIC, NORMAL INSPECTION, NORMOCEPHALIC - Eye Exam Eye Exam: EOMI, Normal appearance, PERRL Pupil Exam: NORMAL ACCOMODATION, PERRL - ENT Exam ENT Exam: Mucous Membranes Moist, Normal Exam - Neck Exam Additional comments: trach collar in place - Respiratory Exam Respiratory Exam: Clear to Ausculation Bilateral, NORMAL BREATHING PATTERN. absent: Rales, Rhonchi, Wheezes, Respiratory Distress Additional comments: audible secretions when breathing - Cardiovascular Exam Cardiovascular Exam: REGULAR RHYTHM, +S1, +S2 - GI/Abdominal Exam GI & Abdominal Exam: Soft, Normal Bowel Sounds. absent: Distended, Firm, Guarding, Rigid - Extremities Exam Extremities Exam: Normal Inspection. absent: Full ROM (unable to move left side of body), Pedal Edema - Neurological Exam Neurological Exam: Alert, Awake. 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 Follows simple commands to protrude tongue and move L arm 11/05: did not follow simple commands 11/04: Continues to follows simple commands in Khmer Neurology consult - Dr. Simpson advise to schedule trach and PEG. Hold antiplatelets for 4-6 weeks and maintain blood pressure above 100 systolic. Sedation as needed 10/24 CT Head: little interval change in the size of left thalamic hemorrhage 2.4x2.9 cm with intraventricular extension of hemorrhage and mild obstructive hydrocephalus. 2 mm midline shift from left to right with no evidence of herniation. Near complete resolution of hemorrhage within 4th ventricle. 10/19 CT Head: little interval change in the known 2.0 x 2.7 acute hematoma in left thalamus with intra ventricular extension of hemorrhage. Interval mild worsening of obstructive hydrocephalus. 10/18 CT Head: Left basal ganglia acute hemorrhage, possibly hypertensive with associated intraventricular hemorrhage and mass effect upon the left lateral aspect of the 3rd ventricle with the tip shift of the 3rd ventricle towards the right side. No generalized midline shift. Air-fluid level in sphenoid sinus common nonspecific. Please correlate for concern regarding acute sinusitis. Mild involutional changes. GCS - 8T (E4 VT M4) NENANA II 10.0, 12% estimated non-operative mortality 11/03- CT brain w/o cont for re-evaluation of bleed w/findings of Interval decrease in size and density left basal ganglia hematoma however well- circumscribed peripheral rim of low-attenuation edema about the hematoma likely represent some combination of brain edema as well as of brain necrosis. Intraventricular hemorrhage has diminished. Ventricles have also decreased in size though the temporal horns and atria remain prominent compared to the compressed remaining ventricular system. There is persistent compression of the 3rd and left lateral ventricle Chronic white matter and basal nuclei ischemic changes. HTN: 11/10: BP 135/90, will d/c IVF 11/09: BP 169/94- same as previous 11/08: BP 148/95, slight elevated, but mostly WNL- continue to hold Hydralazine 11/06: BP elevated 161/99; continue to monitor 11/05: BP WNL Amlodipine 10 mg POQD Hydralazine 25 mg PO BID - currently being held- BP WNL Losartan 100 mg POQD Labetalol 200 mg PO Q12H Respiratory failure on trach collar /mechanical vent: 11/10: On trach collar, pulm consulted for potential weaning, mucomyst ordered for secretions 11/08: Trial pt on trach collar w/o mech vent Pulm consulted for trach weaning protocol- Leo 11/08: Trial pt on trach collar w/o mech vent 11/07: Trach collar w/CPAP 11/06: Trach in place. On mech vent s/p tracheostomy Trach tube care CPAP ABG: -10/29 pH 7.46, CO 35, O2 90, HCO3 26.0 -10/28 pH 7.46, CO2 35, O2 73, HCO3 25.9 -10/27 pH 7.49, CO2 33, O2 74, HCO3 26.5 -10/26 pH 7.5, CO2 32, O2 91, HCO3 26.6 -10/24 pH 7.47, CO2 35, O2 119, HCO3 26.5 -10/23 pH 7.47, CO2 33, O2 66, HCO3 25.5 -10/22 pH 7.52, CO2 33, O2 57, HCO3 28.1 -10/21 pH 7.48, CO2 38, O2 79, HCO3 28.5 -10/20 pH 7.46, CO2 37, O2 187 HCO3 26.9 -10/19 pH 7.46, CO2 38, O2 214, HCO3 27.4 Imaging 11/08 CXR-Tracheostomy tube in place. Other lines and tubes in stable position. Mild patchy increased markings in the right infrahilar region. Biapical pleural thickening. 11/02/CXR - repeat CXR for replacement of OGT w/Support lines tubes - normally positioned No interval pathology noted 11/02 CXR - Interval improvement in the right lower lung since the previous study. Appropriate position of the right-sided PICC line with the tip is likely at the SVC right atrium junction 11/01 CXR - The in situ tracheostomy tube and NG tube positions are as before. Mild interval prominence of the right infrahilar bronchovascular markings either due to technique or subtle interval patchy infiltrate. Clinical follow- up recommended 10/31 CXR -In situ tracheostomy tube remains in good position. NGT w/tip overlying LUQ of the abdomen unchanged. Continued improvement right lung base. 10/28 CXR No focal airspace opacity 10/27 CXR No active disease 10/26 CXR - Mild venous congestion. Right hilar prominence 10/24 CXR Mild venous congestion. Mild right infrahilar prominence 10/23 CXR - Mild venous congestion. right hilar prominence. Biapical pleural thickening upper lobe granulomatous changes. lines and tubes in stable position. 10/22 CXR - Worsening consolidative changes to right mid to lower lung zone. lines and tubes in stable position. 10/20 CXR - Distal tip of an endotracheal tube terminates approximately 4.6 cm above the brisa. Left IJ approach Central venous catheter terminates at expected location of the left innominate vein. Nasogastric tube extends to expected location of the stomach 10/19 CXR New nasogastric tube extends to distal esophagus, above the diaphragm. Repositioning is advised. ET tube unchanged. No infiltrate. 10/18 CXR ET tube proximal to brisa, no acute pulmonary pathology official read pending Head of bed to 30* Keep O2 Sat >92% Dysphagia 11/10: Tube feeds stable 11/09: Tube feeds at 30cc/hr, no reported residuals. Advance by 10cc per day until goal of 50cc. 11/08- OGT placed last night, position verified- ok to use OGT for tube feeds 11/07: NPO- no access to stomach 11/05: OGT removed due to possible contribution to fever/sepsis. Feeding tube via oropharynx replaced 11/02 after pt removed position verified by CXR Feeding tube via oropharynx replaced 11/01 Position verified by CXR NGT was advanced 10/20 - d/c'd Consulted GI- Dr. Renteria- PEG tube placement when not having fevers/ leukocytosis Anemia- resolving 11/10: H/H- 11.5/36.1 11/09: H/H- 12.2/39.3 11/08: H/H- 10.4/33.5 11/07: H/H- 11.1/35.8 11/06: f/u H&H, monitor 11/05-11/06: H&H low, stable, continue to monitor H&H: 12.5/40.2- stable Intracranial bleed No coagulopathy Contraindication for anticoagulation Monitor Sepsis- resolving 11/10: Afebrile over last 24H, WBC down trending, no w 12.6 from 14.1, Blood cx neg x 4 D, repeat urine cxr pos for yeast 11/09: Afebrile over last 24H, WBC increased from 11.9 to 14.1; Blood/urine/ sputum cxr sent Vanc trough 8.4 Urine cxr pos for yeast Diflucan 200mg Q24H ordered ID consulted for adjustement of antibiotics/antifungals- awaiting recs 11/08: Afebrile over last 24H, WBC 11.9, Bands 3 11/07: Afebrile over last 24H, WBC 16.3, Bands 6 Trach asp pos for Gram neg rods Blood cxr neg x 48H 11/06: Continue to monitor WBC 11/05: Leukocytosis 21.8 from 19.4, 16.7 - trending up 11/05: Vanc trough - 5.1 Afebrile over last 24H -Started Vanco 1gm Q24H vanco through 11/02 - 5.1 11/01- apr work up sent: blood cxr, urine cxr, CXR, C diff stool Blood cxr neg x 48H urine cxr neg Bandemia 5 10/31- Trach asp cx - normal kalin 10/31 - Urine (d[place]) cxr neg 10/25 Sputum cx: Serratia marcescens and Enterobactor aerogenes 10/21 Sputum cx: Klebsiella pneumoniae Hold change of antibiotics. Fully aware of the low grade temperature, and increase in WBCs. Patient is hemodynamically stable. IV Cefepime 1 gram Q8H Acetaminophen 650 mg Q6 PRN for fever ID following- Kathy- continue Merrem and Vanco due to aspiration and pos Enterobacter Aerogenes Per Micro- Enterobacter aerogenes sensitive to merrem cont merrem Per ID: increase vanc to 1gm Q12H, FU vanc peak and trough on 3rd dose, cont diflucan Vanc trough 13.8- Vanco held, no peak done due to high trough Hypernatremia- resolved: Na 142- WNL, will d/c IVF, cont free water flushes Na 147- WNL Na 152- continues to down trend Na 153- down trending Cont free water flushes 300cc Q8H Decreased 1/2NS@ 175 to 75cc/Hr- d/c'd Cont tube feeds Monitor Muscular deconditioning due to being bed bound PT Eval and treat Monitor tracheostomy site for drainage, erythema, hematoma, signs of infection. Prophylaxis: GI - Protonix 40 mg IVP daily DVT - contraindicated 2/2 to intracranial bleed Dispo: Con current mgmt Will rec-consult GI when pt is stable for PEG tube placement Cont tube feeds FU alcantara cultures FU ID recs FU Pulm recs Cont condom catheter Cont general body care SW eval for possible LTAC after PEG placement DW attending <Apple Vidal V - Last Filed: 11/10/16 18:15> Objective - Vital Signs/Intake and Output Vital Signs (last 24 hours): Temp Pulse Resp BP Pulse Ox 97.5 F L 85 20 145/90 100 11/10/16 15:05 11/10/16 15:05 11/10/16 15:05 11/10/16 15:05 11/10/16 15:05 Intake and Output: 11/10/16 11/10/16 06:59 18:59 Intake Total 1115 995 Output Total 700 700 Balance 415 295 - Medications Medications: Current Medications Acetaminophen (Tylenol 325mg Tab) 650 mg PO Q6 PRN PRN Reason: Fever >100.4 F Last Admin: 11/05/16 09:59 Dose: 650 mg Acetylcysteine (Acetylcysteine 20%) 4 ml INH Q6H OMAR Meropenem 500 mg/ Sodium (Chloride) 100 mls @ 100 mls/hr IVPB Q8 OMAR Last Admin: 11/10/16 14:42 Dose: 100 mls/hr Fluconazole (Diflucan Iv 200 Mg/100 Ml Ns) 100 mls @ 100 mls/hr IVPB Q24H OMAR Last Admin: 11/09/16 21:35 Dose: 100 mls/hr Vancomycin/Sodium Chloride (Vancocin) 200 mls @ 133.333 mls/hr IVPB Q12H OMAR Last Admin: 11/10/16 13:54 Dose: Not Given Pantoprazole Sodium (Protonix Inj) 40 mg IVP DAILY OMAR Last Admin: 11/10/16 10:58 Dose: 40 mg Saccharomyces Boulardii (Florastor) 250 mg PO BID OMAR Last Admin: 11/10/16 17:43 Dose: 250 mg - Labs Labs: 11/10/16 07:06 11/10/16 07:06 PT 15.0 SECONDS (9.7-12.2) H 10/31/16 06:21 INR 1.3 10/31/16 06:21 APTT 30 SECONDS (21-34) 10/28/16 05:59 Attending/Attestation - Attestation I have personally seen and examined this patient.: Yes I have fully participated in the care of the patient.: Yes I have reviewed all pertinent clinical information, including history, physical exam and plan: Yes Notes (Text): Patient seen, examined and case discussed with day-time resident. Patient seen at bedside, sitting upright, smiling, undestanding basic commands in Khmer, saturating well on trach collar off vent. Discontinue IV fluids; continue free water flushes Patient's leukocytosis is improving. Vancomcyin was initially held overnight because of elevated trough. F/u Infectious disease; if patient's white count continues to improve and sodium to improve, will reconsult GI for peg placement. Repeat urine culture: positive for yeast, 11/09 blood cultures: negative for 24 hours X2, pending sputum culture (1) Intracranial hemorrhage Assessment & Plan: 10/18 CT Head: Left basal ganglia acute hemorrhage, possibly hypertensive with associated intraventricular hemorrhage and mass effect upon the left lateral aspect of the 3rd ventricle with the tip shift of the 3rd ventricle towards the right side. No generalized midline shift. Air-fluid level in sphenoid sinus common nonspecific. Please correlate for concern regarding acute sinusitis. Mild involutional changes. 10/19 CT Head: little interval change in the known 2.0 x 2.7 acute hematoma in left thalamus with intra ventricular extension of hemorrhage. Interval mild worsening of obstructive hydrocephalus. 10/24 CT Head: little interval change in the size of left thalamic hemorrhage 2.4x2.9 cm with intraventricular extension of hemorrhage and mild obstructive hydrocephalus. 2 mm midline shift from left to right with no evidence of herniation. Near complete resolution of hemorrhage within 4th ventricle. 11/03/16 CT Head; Interval decrease in size and density left basal ganglia hematoma; well-circumscribed peripheral rim of low attentuation edema about hematoma; combination of brain edema and brain necrosis; intraventricular hemorrhage has diminished. Ventricles hae also decreased in size temporal horns and atria remain prominent. Persistent compression of the 3rd and left lateral ventricle Neurosurgery per initial consult-->patient's prognosis dismal at beginning of admission Neurology (Dr. Simpson) on board-->per 10/26 note: patient has attained maximum response from neuro point of view from this admission; keep nutritional status and avoid infectious; treat with peg/trach; no antiplatelets for next 4-6 weeks (6 week travis 12/07/16); maintain MAP ~100) Status: Acute (2) Hypertensive emergency Assessment & Plan: Controlled off anti-hypertensives medications discontinue IV fluids Will monitor blood pressure; may need to restart antihypertensives Maintain MAP ~100 per neurology guidelines (3) Acute respiratory failure Assessment & Plan: s/p tracheostomy 10/28/16 Patient completed trach collar. Patient underwent trach collar trial yesterday, saturating well off vent. Pulmonary (Dr. Bailey) consulted to assist with weaning protocol Mucomyst PRN to help thin out secretions Duonebs PRN shortness of breathe Status: Acute (4) CVA (cerebral vascular accident) Assessment & Plan: Hemorrhagic stroke with associated hypotension and basal ganglia involvement [id number] Cholestrol: 202, TG: LDL:130 HDL:52 pending peg placement prior to starting statin when patient stabilized from infection Patient is off anti-platelet per neurology at least 4-6 weeks (12/07/16) Blood pressure control monitoring (5) Sepsis Per 11/05; Fever 103F and associated leukocytosis: 21.8; infection: pneumonia Infectious disease on board (Dr. Chavez) 10/21 Sputum-Klebsiella (sensitive to Maxipime) 10/25 Serratia and Enterobacter (sensitive to Maxipime) 10/31 Sputum: normal 11/06: Enterobacter which is sensitive Meropenem (switch from Maxipime) 11/06 Urine culture: yeast 11/09 Urine culture: yeast All prior cultures are negative Current: Blood cultures: 11/09: no growth for 24 hours X2 pending repeat sputum culture Abx: Meropenem 500mg IV Q 8 hours (active since 11/05/16) Vancomycin 1 gram IV W 12 hours (active since 11/01/16; dose adjusted for 11/09) Diflucan 200mg IV Q 24hours (active since 11/08/16) (6) Hypernatremia Normalized discontinued1/2NS 175cc/hr to 75 cc/hr Free water: 250 water Q 4hours flushes with OGT (not peg) (7) Prophylactic care * peg/trach * pending rn long term care mangement * on free water flushes and off IV fluids * chemical anticoagulation contraindicated given intravnetricula hemorrhage 11/10/16 18:14
[2016-11-10] MEDS: Fluconazole IV 200mg/100 ml NS 100 ML IVPB SCH (20:35)
[2016-11-11] MEDS: Albuterol 0.083% Inhal Sol (2.5 mg/3 mL) UD INH PRN ×2 (01:13→07:54)
[2016-11-11] MEDS: Meropenem 500 MG in Sodium Chloride 0.9% 100 ML IVPB SCH ×3 (05:19→21:42)
[2016-11-11 07:18] LABS: BASO % 0.3 % (0.0-2.0); EOS # 0.3 K/uL (0.0-0.7); EOS % 2.8 % (0.0-4.0); HEMATOCRIT 34.8 % (35.0-51.0); LYMPH # 1.4 K/uL (1.0-4.3); MEAN CELL VOLUME 81.3 fL (80.0-94.0); MEAN CORPUSCULAR HEMOGLOBIN 25.9 pg (27.0-31.0); MEAN CORPUSCULAR HGB CONC 31.9 g/dL (33.0-37.0); MEAN PLATELET VOLUME 10.4 fL (7.2-11.7); MONO # 0.7 K/uL (0.0-0.8); MONO % 5.7 % (0.0-10.0); RED CELL DISTRIBUTION WIDTH 13.2 % (11.5-14.5); WHITE BLOOD COUNT 12.3 K/uL (4.8-10.8)
[2016-11-11 07:39] LABS: CHLORIDE 104 mmol/L (98-107); SODIUM 144 mmol/L (132-148)
[2016-11-11 07:40] LABS: POTASSIUM 3.8 mmol/L (3.6-5.2)
[2016-11-11 07:41] LABS: GFR AFRICAN-AMERICAN > 60
[2016-11-11 07:42] LABS: ALB/GLOB RATIO 0.7 (1.0-2.1); ALKALINE PHOSPHATASE 89 U/L (38-126); ALT/SGPT 56 U/L (21-72); AST/SGOT 58 U/L (17-59); BILIRUBIN,TOTAL 0.9 mg/dL (0.2-1.3); BLOOD UREA NITROGEN 17 mg/dL (9-20); CARBON DIOXIDE 26 mmol/L (22-30); GLUCOSE,RANDOM 99 mg/dL (75-110); TOTAL PROTEIN 5.7 g/dL (6.3-8.3)
[2016-11-11 07:43] LABS: CALCIUM 7.6 mg/dl (8.6-10.4)
[2016-11-11] MEDS: Acetylcysteine 20% Inhal Soln (4ml) INH SCH ×2 (07:54→14:00)
--- NOTE | 2016-11-11 09:43 | CP.PCM.CON ---
History of Present Illness - History of Present Illness History of Present Illness: Pt is a 56yo M that presented with an intracranial brain bleed on 10/18/2016, pt was intubated on admission and was kept sedated. Tracheostomy was performed on , pulmonology consulted for vent weaning. Pt was seen and examined at bedside today, pt was awake and alert, responded to questioning with yes or no shakes of the head. Pt was however nonverbal due to tracheostomy. ROS unobtainable. Pt was breathing well off Vent today, most recent settings were for PS/CPAP Fio2 30%, PEEP 5, PS 8. Pt was in no acute distress, no acute events reported overnight to nursing. Medical history obtained from records. PMH: denies PSH: none Allergies: NKDA Meds: unknown Social: recent immigrant from [facility] Review of Systems - Review of Systems Systems not reviewed;Unavailable: Intubated Past Patient History - Infectious Disease Hx of Infectious Diseases: None - Past Medical History & Family History Past Medical History?: No - Past Social History Smoking Status: Former Smoker - CARDIAC Hx Cardiac Disorders: Yes Hx Hypertension: Yes - PULMONARY Hx Respiratory Disorders: Yes - NEUROLOGICAL Hx Neurological Disorder: Yes - HEENT Hx HEENT Problems: Yes - RENAL Hx Chronic Kidney Disease: Yes - ENDOCRINE/METABOLIC Hx Endocrine Disorders: Yes - HEMATOLOGICAL/ONCOLOGICAL Hx Blood Disorders: Yes - INTEGUMENTARY Hx Dermatological Problems: Yes - MUSCULOSKELETAL/RHEUMATOLOGICAL Hx Arthritis: Yes - GASTROINTESTINAL Hx Gastrointestinal Disorders: Yes - GENITOURINARY/GYNECOLOGICAL Hx Genitourinary Disorders: Yes - PSYCHIATRIC Hx Psychophysiologic Disorder: Yes Hx Substance Use: No - SURGICAL HISTORY Hx Surgeries: No - ANESTHESIA Hx Anesthesia: No Meds Allergies/Adverse Reactions: Allergies Allergy/AdvReac Type Severity Reaction Status Date / Time No Known Allergies Allergy Verified 10/18/16 15:57 - Medications Medications: Current Medications Acetaminophen (Tylenol 325mg Tab) 650 mg PO Q6 PRN PRN Reason: Fever >100.4 F Last Admin: 11/05/16 09:59 Dose: 650 mg Acetylcysteine (Acetylcysteine 20%) 4 ml INH Q6H OMAR Last Admin: 11/11/16 07:54 Dose: 4 ml Albuterol Sulfate (Albuterol 0.083% Inhal Kim (2.5 Mg/3 Ml) Ud) 2.5 mg INH RQ6 OMAR Meropenem 500 mg/ Sodium (Chloride) 100 mls @ 100 mls/hr IVPB Q8 [facility] Last Admin: 11/11/16 05:19 Dose: 100 mls/hr Fluconazole (Diflucan Iv 200 Mg/100 Ml Ns) 100 mls @ 100 mls/hr IVPB Q24H [facility] Last Admin: 11/10/16 20:35 Dose: 100 mls/hr Vancomycin/Sodium Chloride (Vancocin) 200 mls @ 133.333 mls/hr IVPB Q12H [facility] Last Admin: 11/10/16 13:54 Dose: Not Given Pantoprazole Sodium (Protonix Inj) 40 mg IVP DAILY [facility] Last Admin: 11/10/16 10:58 Dose: 40 mg Saccharomyces Boulardii (Florastor) 250 mg PO BID [facility] Last Admin: 11/10/16 17:43 Dose: 250 mg Physical Exam - Constitutional Appears: Well, Non-toxic, No Acute Distress - Head Exam Head Exam: ATRAUMATIC, NORMAL INSPECTION - Eye Exam Eye Exam: Normal appearance - Respiratory Exam Respiratory Exam: NORMAL BREATHING PATTERN. absent: Rales, Rhonchi, Wheezes - Cardiovascular Exam Cardiovascular Exam: +S1, +S2 - Skin Skin Exam: Dry, Intact, Normal Color Results - Vital Signs Recent Vital Signs: Last Vital Signs Temp 98.1 F 11/11/16 08:02 Pulse 88 11/11/16 08:02 Resp 20 11/11/16 08:02 BP 134/91 H 11/11/16 08:02 Pulse Ox 100 11/11/16 08:02 - Labs Result Diagrams: 11/11/16 07:01 11/11/16 07:01 Labs: Laboratory Results - last 24 hr 11/11/16 07:01 WBC 12.3 H RBC 4.28 L Hgb 11.1 L Hct 34.8 L MCV 81.3 MCH 25.9 L MCHC 31.9 L RDW 13.2 Plt Count 205 MPV 10.4 Neut % (Auto) 80.2 H Lymph % (Auto) 11.0 L [place] % (Auto) 5.7 Eos % (Auto) 2.8 Baso % (Auto) 0.3 Neut # 9.9 H Lymph # 1.4 [place] # 0.7 Eos # 0.3 Baso # 0.0 Sodium 144 Potassium 3.8 Chloride 104 Carbon Dioxide 26 Anion Gap 18 BUN 17 Creatinine 0.8 Est GFR ( Amer) > 60 Est GFR (Non-Af Amer) > 60 Random Glucose 99 Calcium 7.6 L Phosphorus 3.0 Magnesium 2.0 Total Bilirubin 0.9 AST 58 ALT 56 Alkaline Phosphatase 89 Total Protein 5.7 L Albumin 2.4 L Globulin 3.3 Albumin/Globulin Ratio 0.7 L Assessment & Plan - Assessment and Plan (Free Text) Plan: 1) Respiratory Failure currently on mechanical ventilation w/ Tracheostomy Continue weaning with trials off vent continue nebulizer treatments - Date & Time Date: 11/11/16 Time: 09:48
[2016-11-11] MEDS: Saccharomyces Boulardi 250 mg Cap PO SCH ×2 (10:32→17:40)
[2016-11-11] MEDS: Vancomycin 1 gm/NS 200 ml 200 ML IVPB SCH (13:12)
[2016-11-11] MEDS: Albuterol 0.083% Inhal Sol (2.5 mg/3 mL) UD INH SCH (14:05)
--- NOTE | 2016-11-11 17:52 | CP.PCM.PN ---
<Marybel Taylor - Last Filed: 11/11/16 17:50> Subjective - Date & Time of Evaluation Date of Evaluation: 11/11/16 Time of Evaluation: 06:55 - Subjective Subjective: Internal medicine progress note for Hospitalist service- Marybel Taylor, PGY-1 Pt S & E at bedside No changes overnight, pt stable, no events. Objective - Vital Signs/Intake and Output Vital Signs (last 24 hours): Temp Pulse Resp BP Pulse Ox 98.5 F 87 24 131/79 100 11/11/16 15:06 11/11/16 15:06 11/11/16 15:06 11/11/16 15:06 11/11/16 15:06 Intake and Output: 11/11/16 11/11/16 06:59 18:59 Intake Total 510 710 Output Total 1600 650 Balance -1090 60 - Medications Medications: Current Medications Acetaminophen (Tylenol 325mg Tab) 650 mg PO Q6 PRN PRN Reason: Fever >100.4 F Last Admin: 11/05/16 09:59 Dose: 650 mg Acetylcysteine (Acetylcysteine 20%) 4 ml INH Q6H OMAR Last Admin: 11/11/16 14:00 Dose: 4 ml Albuterol Sulfate (Albuterol 0.083% Inhal Kim (2.5 Mg/3 Ml) Ud) 2.5 mg INH RQ6 OMAR Last Admin: 11/11/16 14:05 Dose: 2.5 mg Amlodipine Besylate (Norvasc) 5 mg PO DAILY OMAR Last Admin: 11/11/16 11:48 Dose: 5 mg Meropenem 500 mg/ Sodium (Chloride) 100 mls @ 100 mls/hr IVPB Q8 OMAR Last Admin: 11/11/16 14:53 Dose: 100 mls/hr Fluconazole (Diflucan Iv 200 Mg/100 Ml Ns) 100 mls @ 100 mls/hr IVPB Q24H OMAR Last Admin: 11/10/16 20:35 Dose: 100 mls/hr Vancomycin/Sodium Chloride (Vancocin) 200 mls @ 133.333 mls/hr IVPB Q12H OMAR Last Admin: 11/11/16 13:12 Dose: 133.333 mls/hr Pantoprazole Sodium (Protonix Inj) 40 mg IVP DAILY OMAR Last Admin: 03/31/17 10:31 Dose: 40 mg Saccharomyces Boulardii (Florastor) 250 mg PO BID OMAR Last Admin: 11/11/16 17:40 Dose: 250 mg - Labs Labs: 11/11/16 07:01 11/11/16 07:01 PT 15.0 SECONDS (9.7-12.2) H 10/31/16 06:21 INR 1.3 10/31/16 06:21 APTT 30 SECONDS (21-34) 10/28/16 05:59 - Constitutional Appears: Non-toxic, No Acute Distress - Head Exam Head Exam: ATRAUMATIC, NORMAL INSPECTION, NORMOCEPHALIC - Eye Exam Eye Exam: EOMI, Normal appearance, PERRL Pupil Exam: NORMAL ACCOMODATION, PERRL - ENT Exam ENT Exam: Mucous Membranes Moist, Normal Exam - Neck Exam Neck Exam: absent: Full ROM Additional comments: Trach collar in place - Respiratory Exam Respiratory Exam: Clear to Ausculation Bilateral, NORMAL BREATHING PATTERN. absent: Rales, Rhonchi, Wheezes - Cardiovascular Exam Cardiovascular Exam: REGULAR RHYTHM, +S1, +S2 - GI/Abdominal Exam GI & Abdominal Exam: Soft, Normal Bowel Sounds. absent: Tenderness - Extremities Exam Extremities Exam: Normal Inspection. absent: Full ROM Additional comments: Does not move Left side of body - Neurological Exam Neurological Exam: Alert, Awake. 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 Follows simple commands to protrude tongue and move L arm 11/05: did not follow simple commands 11/04: Continues to follows simple commands in [place] Neurology consult - Dr. Simpson advise to schedule trach and PEG. Hold antiplatelets for 4-6 weeks and maintain blood pressure above 100 systolic. Sedation as needed 10/24 CT Head: little interval change in the size of left thalamic hemorrhage 2.4x2.9 cm with intraventricular extension of hemorrhage and mild obstructive hydrocephalus. 2 mm midline shift from left to right with no evidence of herniation. Near complete resolution of hemorrhage within 4th ventricle. 10/19 CT Head: little interval change in the known 2.0 x 2.7 acute hematoma in left thalamus with intra ventricular extension of hemorrhage. Interval mild worsening of obstructive hydrocephalus. 10/18 CT Head: Left basal ganglia acute hemorrhage, possibly hypertensive with associated intraventricular hemorrhage and mass effect upon the left lateral aspect of the 3rd ventricle with the tip shift of the 3rd ventricle towards the right side. No generalized midline shift. Air-fluid level in sphenoid sinus common nonspecific. Please correlate for concern regarding acute sinusitis. Mild involutional changes. GCS - 8T (E4 VT M4) [place] II 10.0, 12% estimated non-operative mortality 11/03- CT brain w/o cont for re-evaluation of bleed w/findings of Interval decrease in size and density left basal ganglia hematoma however well- circumscribed peripheral rim of low-attenuation edema about the hematoma likely represent some combination of brain edema as well as of brain necrosis. Intraventricular hemorrhage has diminished. Ventricles have also decreased in size though the temporal horns and atria remain prominent compared to the compressed remaining ventricular system. There is persistent compression of the 3rd and left lateral ventricle Chronic white matter and basal nuclei ischemic changes. December 07- reassess pt need for anticoagulation with neurology HTN: 11/11: BP 134/91, started Norvasc 5mg Daily 11/10: BP 135/90, will d/c IVF 11/09: BP 169/94- same as previous 11/08: BP 148/95, slight elevated, but mostly WNL- continue to hold Hydralazine 11/06: BP elevated 161/99; continue to monitor 11/05: BP WNL Amlodipine 10 mg POQD Hydralazine 25 mg PO BID - currently being held- BP WNL Losartan 100 mg POQD Labetalol 200 mg PO Q12H Respiratory failure on trach collar /mechanical vent: 11/11: Pulm recs- Continue weaning with trials off vent, continue nebulizer treatments 11/10: On trach collar, pulm consulted for potential weaning, mucomyst ordered for secretions 11/08: Trial pt on trach collar w/o mech vent Pulm consulted for trach weaning protocol- Leo 11/08: Trial pt on trach collar w/o mech vent 11/07: Trach collar w/CPAP 11/06: Trach in place. On mech vent s/p tracheostomy Trach tube care CPAP ABG: -10/29 pH 7.46, CO 35, O2 90, HCO3 26.0 -10/28 pH 7.46, CO2 35, O2 73, HCO3 25.9 -10/27 pH 7.49, CO2 33, O2 74, HCO3 26.5 -10/26 pH 7.5, CO2 32, O2 91, HCO3 26.6 -10/24 pH 7.47, CO2 35, O2 119, HCO3 26.5 -10/23 pH 7.47, CO2 33, O2 66, HCO3 25.5 -10/22 pH 7.52, CO2 33, O2 57, HCO3 28.1 -10/21 pH 7.48, CO2 38, O2 79, HCO3 28.5 -10/20 pH 7.46, CO2 37, O2 187 HCO3 26.9 -10/19 pH 7.46, CO2 38, O2 214, HCO3 27.4 Imaging 11/08 CXR-Tracheostomy tube in place. Other lines and tubes in stable position. Mild patchy increased markings in the right infrahilar region. Biapical pleural thickening. 11/02/CXR - repeat CXR for replacement of OGT w/Support lines tubes - normally positioned No interval pathology noted 11/02 CXR - Interval improvement in the right lower lung since the previous study. Appropriate position of the right-sided PICC line with the tip is likely at the SVC right atrium junction 11/01 CXR - The in situ tracheostomy tube and NG tube positions are as before. Mild interval prominence of the right infrahilar bronchovascular markings either due to technique or subtle interval patchy infiltrate. Clinical follow- up recommended 10/31 CXR -In situ tracheostomy tube remains in good position. NGT w/tip overlying LUQ of the abdomen unchanged. Continued improvement right lung base. 10/28 CXR No focal airspace opacity 10/27 CXR No active disease 10/26 CXR - Mild venous congestion. Right hilar prominence 10/24 CXR Mild venous congestion. Mild right infrahilar prominence 10/23 CXR - Mild venous congestion. right hilar prominence. Biapical pleural thickening upper lobe granulomatous changes. lines and tubes in stable position. 10/22 CXR - Worsening consolidative changes to right mid to lower lung zone. lines and tubes in stable position. 10/20 CXR - Distal tip of an endotracheal tube terminates approximately 4.6 cm above the brisa. Left IJ approach Central venous catheter terminates at expected location of the left innominate vein. Nasogastric tube extends to expected location of the stomach 10/19 CXR New nasogastric tube extends to distal esophagus, above the diaphragm. Repositioning is advised. ET tube unchanged. No infiltrate. 10/18 CXR ET tube proximal to brisa, no acute pulmonary pathology official read pending Head of bed to 30* Keep O2 Sat >92% Dysphagia 11/11: Pt w/10cc residuals- kept at rate of 20cc/hr, will consider increasing by 10cc tomorrow if no residuals 11/10: Tube feeds stable 11/09: Tube feeds at 30cc/hr, no reported residuals. Advance by 10cc per day until goal of 50cc. 11/08- OGT placed last night, position verified- ok to use OGT for tube feeds 11/07: NPO- no access to stomach 11/05: OGT removed due to possible contribution to fever/sepsis. Feeding tube via oropharynx replaced 11/02 after pt removed position verified by CXR Feeding tube via oropharynx replaced 11/01 Position verified by CXR NGT was advanced 10/20 - d/c'd Consulted GI- Dr. Renteria- PEG tube placement when not having fevers/ leukocytosis Anemia- resolving 11/11: H/H- 11.1/34.8 11/10: H/H- 11.5/36.1 11/09: H/H- 12.2/39.3 11/08: H/H- 10.4/33.5 11/07: H/H- 11.1/35.8 11/06: f/u H&H, monitor 11/05-11/06: H&H low, stable, continue to monitor H&H: 12.5/40.2- stable Intracranial bleed No coagulopathy Contraindication for anticoagulation Monitor Sepsis- resolving 11/11: Afebrile over last 24H, WBC down trending, now 12.3 from 12.6, per ID: resume vancomcyin; trough 10-15; and monitor wbc count FU sputum cxr- talked to lab- results will be available on 11/12- so far only normal kalin growing FU vanc trough on 11/12 before 3rd dose 11/10: Afebrile over last 24H, WBC down trending, no w 12.6 from 14.1, Blood cx neg x 4 D, repeat urine cxr pos for yeast 11/09: Afebrile over last 24H, WBC increased from 11.9 to 14.1; Blood/urine/ sputum cxr sent Vanc trough 8.4 Urine cxr pos for yeast Diflucan 200mg Q24H ordered ID consulted for adjustement of antibiotics/antifungals- awaiting recs 11/08: Afebrile over last 24H, WBC 11.9, Bands 3 11/07: Afebrile over last 24H, WBC 16.3, Bands 6 Trach asp pos for Gram neg rods Blood cxr neg x 48H 11/06: Continue to monitor WBC 11/05: Leukocytosis 21.8 from 19.4, 16.7 - trending up 11/05: Vanc trough - 5.1 Afebrile over last 24H -Started Vanco 1gm Q24H vanco through 11/02 - 5.1 11/01- apr work up sent: blood cxr, urine cxr, CXR, C diff stool Blood cxr neg x 48H urine cxr neg Bandemia 5 10/31- Trach asp cx - normal kalin 10/31 - Urine ([place]) cxr neg 10/25 Sputum cx: Serratia marcescens and Enterobactor aerogenes 10/21 Sputum cx: Klebsiella pneumoniae Hold change of antibiotics. Fully aware of the low grade temperature, and increase in WBCs. Patient is hemodynamically stable. IV Cefepime 1 gram Q8H Acetaminophen 650 mg Q6 PRN for fever ID following- Kathy- continue Merrem and Vanco due to aspiration and pos Enterobacter Aerogenes Per Micro- Enterobacter aerogenes sensitive to merrem cont merrem Per ID: increase vanc to 1gm Q12H, FU vanc peak and trough on 3rd dose, cont diflucan Vanc trough 13.8- Vanco held, no peak done due to high trough Hypernatremia- resolved: Na 144- Cont free water flushes Na 142- WNL, will d/c IVF, cont free water flushes Na 147- WNL Na 152- continues to down trend Na 153- down trending Cont free water flushes 300cc Q8H Decreased 1/2NS@ 175 to 75cc/Hr- d/c'd Cont tube feeds Monitor Muscular deconditioning due to being bed bound PT Eval and treat Monitor tracheostomy site for drainage, erythema, hematoma, signs of infection. Prophylaxis: GI - Protonix 40 mg IVP daily DVT - contraindicated 2/2 to intracranial bleed Dispo: Con current mgmt Will rec-consult GI when pt is stable for PEG tube placement Cont tube feeds ID following Pulm following Cont condom catheter Cont general body care SW eval for possible LTAC after PEG placement DW attending <Apple Vidal V - Last Filed: 11/27/16 20:03> Objective - Vital Signs/Intake and Output Vital Signs (last 24 hours): Temp Pulse Resp BP Pulse Ox 98.1 F 82 20 131/85 99 11/27/16 15:15 11/27/16 16:29 11/27/16 15:15 11/27/16 15:15 11/27/16 15:15 Intake and Output: 11/27/16 11/28/16 18:59 06:59 Intake Total 1760 Output Total 600 Balance 1160 - Medications Medications: Current Medications Acetaminophen (Tylenol 325mg Tab) 650 mg PO Q6 PRN PRN Reason: Fever >100.4 F Last Admin: 11/24/16 09:59 Dose: 650 mg Acetylcysteine (Acetylcysteine 20%) 4 ml INH Q6H OMAR Last Admin: 11/27/16 19:10 Dose: 4 ml Albuterol Sulfate (Albuterol 0.083% Inhal Kim (2.5 Mg/3 Ml) Ud) 2.5 mg INH RQ6 OMAR Last Admin: 11/27/16 19:10 Dose: 2.5 mg Amlodipine Besylate (Norvasc) 5 mg PO DAILY OMAR Last Admin: 11/27/16 09:52 Dose: 5 mg Aspirin (Aspirin Chewable) 81 mg GT DAILY OMAR Last Admin: 11/27/16 09:52 Dose: 81 mg Fluconazole (Diflucan Iv 200 Mg/100 Ml Ns) 100 mls @ 100 mls/hr IVPB Q24H [facility] Last Admin: 11/27/16 18:59 Dose: 100 mls/hr Pantoprazole Sodium (Protonix Susp) 40 mg PO DAILY [facility] Last Admin: 11/27/16 09:52 Dose: 40 mg Rosuvastatin Calcium (Crestor) 5 mg GT HS OMAR Last Admin: 11/26/16 21:16 Dose: 5 mg Saccharomyces Boulardii (Florastor) 250 mg PO BID OMAR Last Admin: 11/27/16 17:49 Dose: 250 mg - Labs Labs: 11/23/16 07:15 11/23/16 07:15 PT 12.9 SECONDS (9.7-12.2) H 11/15/16 13:58 INR 1.2 11/15/16 13:58 APTT 39 SECONDS (21-34) H 11/15/16 13:58 Attending/Attestation - Attestation I have personally seen and examined this patient.: Yes I have fully participated in the care of the patient.: Yes I have reviewed all pertinent clinical information, including history, physical exam and plan: Yes Notes (Text): This is late computer entry for 11/11/16 Patient seen, examined, and case discussed with day-time resident. Patient seen, examined, with daughters at bedside. Follow-up vancomycin trough. Patient's OGT feedings at 10cc/hr. Monitor leukocytosis and hypernatremia; when stablized; patient is eligible for peg placement and will reconsult GI Assessment/Plan (1) Intracranial hemorrhage Assessment & Plan: 10/18 CT Head: Left basal ganglia acute hemorrhage, possibly hypertensive with associated intraventricular hemorrhage and mass effect upon the left lateral aspect of the 3rd ventricle with the tip shift of the 3rd ventricle towards the right side. No generalized midline shift. Air-fluid level in sphenoid sinus common nonspecific. Please correlate for concern regarding acute sinusitis. Mild involutional changes. 10/19 CT Head: little interval change in the known 2.0 x 2.7 acute hematoma in left thalamus with intra ventricular extension of hemorrhage. Interval mild worsening of obstructive hydrocephalus. 10/24 CT Head: little interval change in the size of left thalamic hemorrhage 2.4x2.9 cm with intraventricular extension of hemorrhage and mild obstructive hydrocephalus. 2 mm midline shift from left to right with no evidence of herniation. Near complete resolution of hemorrhage within 4th ventricle. 11/03/16 CT Head; Interval decrease in size and density left basal ganglia hematoma; well-circumscribed peripheral rim of low attentuation edema about hematoma; combination of brain edema and brain necrosis; intraventricular hemorrhage has diminished. Ventricles hae also decreased in size temporal horns and atria remain prominent. Persistent compression of the 3rd and left lateral ventricle * Neurosurgery per initial consult-->patient's prognosis dismal at beginning of admission * Neurology (Dr. Simpson) on board-->per 10/26 note: patient has attained maximum response from neuro point of view from this admission; keep nutritional status and avoid infectious; treat with peg/trach; no antiplatelets for next 4-6 weeks (; maintain MAP ~100) Status: Acute (2) Hypertensive emergency Assessment & Plan: * Controlled * Norvasc 5mg PO daily * monitor vital signs (3) Acute respiratory failure Assessment & Plan: * s/p tracheostomy 10/28/16 * Patient completed trach collar. * Saturating well. * Monitor dressing change of trach site * Pulmonary (Dr. Bailey) consulted to assist with weaning protocol * Mucomyst PRN to help thin out secretions * Duonebs PRN shortness of breathe * monitor and may need suctioning PRN Status: resolved (4) CVA (cerebral vascular accident) Assessment & Plan: * Hemorrhagic stroke with associated hypotension and basal ganglia involvement * [id number]:5.7 * Cholestrol: 202, TG: LDL:130 HDL:52 * Blood pressure control monitoring (5) Sepsis Per 11/05; Fever 103F and associated leukocytosis: 21.8; infection: pneumonia Infectious disease on board (Dr. Chavez) 10/21 Sputum-Klebsiella (sensitive to Maxipime) 10/25 Serratia and Enterobacter (sensitive to Maxipime) 10/31 Sputum: normal 11/06: Enterobacter which is sensitive Meropenem (switch from Maxipime) 11/06 Urine culture: yeast 11/09 Urine culture: yeast Blood cultures: 11/09: monitor Repeat sputum: follow-up Patient is currently on Vancomycin, Meropenem and on Diflucan; f/u Vancomycin level monitor leukocytosis (6) Hypernatremia * monitor * d/c IV fluids; on free water flushes (7) Prophylactic care * Will need PT/OT * s/p trach collar trial, weaning per pulm
[2016-11-11] MEDS: Fluconazole IV 200mg/100 ml NS 100 ML IVPB SCH (20:00)
[2016-11-12] MEDS: Vancomycin 1 gm/NS 200 ml 200 ML IVPB SCH ×2 (01:18→11:48)
[2016-11-12] MEDS: Acetylcysteine 20% Inhal Soln (4ml) INH SCH ×4 (01:26→19:30)
[2016-11-12] MEDS: Albuterol 0.083% Inhal Sol (2.5 mg/3 mL) UD INH SCH ×4 (01:27→19:30)
--- NOTE | 2016-11-12 02:52 | CP.PCM.PN ---
<Jennifer Freed - Last Filed: 11/12/16 04:05> Subjective - Date & Time of Evaluation Date of Evaluation: 11/12/16 Time of Evaluation: 02:30 - Subjective Subjective: PGY [address] Vidal: Patient seen and examined at bedside. Family present in the room. No acute events. Patient responded to questioning with yes or no shakes of the head. He denied any pain. Objective - Vital Signs/Intake and Output Vital Signs (last 24 hours): Temp Pulse Resp BP Pulse Ox 98.9 F 75 20 123/81 99 11/12/16 00:22 11/12/16 00:22 11/12/16 00:22 11/12/16 00:22 11/12/16 00:22 Intake and Output: 11/11/16 11/12/16 18:59 06:59 Intake Total 710 610 Output Total 650 1000 Balance 60 -390 - Medications Medications: Current Medications Acetaminophen (Tylenol 325mg Tab) 650 mg PO Q6 PRN PRN Reason: Fever >100.4 F Last Admin: 11/05/16 09:59 Dose: 650 mg Acetylcysteine (Acetylcysteine 20%) 4 ml INH Q6H OMAR Last Admin: 11/12/16 01:26 Dose: 4 ml Albuterol Sulfate (Albuterol 0.083% Inhal Kim (2.5 Mg/3 Ml) Ud) 2.5 mg INH RQ6 OMAR Last Admin: 11/12/16 01:27 Dose: 2.5 mg Amlodipine Besylate (Norvasc) 5 mg PO DAILY OMAR Last Admin: 11/11/16 11:48 Dose: 5 mg Meropenem 500 mg/ Sodium (Chloride) 100 mls @ 100 mls/hr IVPB Q8 OMAR Last Admin: 11/11/16 21:42 Dose: 100 mls/hr Fluconazole (Diflucan Iv 200 Mg/100 Ml Ns) 100 mls @ 100 mls/hr IVPB Q24H OMAR Last Admin: 11/11/16 20:00 Dose: 100 mls/hr Vancomycin/Sodium Chloride (Vancocin) 200 mls @ 133.333 mls/hr IVPB Q12H OMAR Last Admin: 11/12/16 01:18 Dose: 133.333 mls/hr Pantoprazole Sodium (Protonix Inj) 40 mg IVP DAILY [facility] Last Admin: 11/11/16 10:31 Dose: 40 mg Saccharomyces Dejuani (Florastor) 250 mg PO BID OMAR Last Admin: 11/11/16 17:40 Dose: 250 mg - Labs Labs: 11/11/16 07:01 11/11/16 07:01 PT 15.0 SECONDS (9.7-12.2) H 10/31/16 06:21 INR 1.3 10/31/16 06:21 APTT 30 SECONDS (21-34) 10/28/16 05:59 - Constitutional Appears: Non-toxic, No Acute Distress, Chronically Ill - Head Exam Head Exam: ATRAUMATIC, NORMAL INSPECTION - Eye Exam Eye Exam: EOMI, Normal appearance, PERRL Pupil Exam: NORMAL ACCOMODATION - ENT Exam ENT Exam: Mucous Membranes Moist - Neck Exam Additional comments: Trach in place - Respiratory Exam Respiratory Exam: Clear to Ausculation Bilateral, NORMAL BREATHING PATTERN. absent: Respiratory Distress - Cardiovascular Exam Cardiovascular Exam: REGULAR RHYTHM, +S1, +S2 - GI/Abdominal Exam GI & Abdominal Exam: Soft, Normal Bowel Sounds. 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 Follows simple commands to protrude tongue and move L arm 11/05: did not follow simple commands 11/04: Continues to follows simple commands in [place] Neurology consult - Dr. Simpson advise to schedule trach and PEG. Hold antiplatelets for 4-6 weeks and maintain blood pressure above 100 systolic. Sedation as needed 10/24 CT Head: little interval change in the size of left thalamic hemorrhage 2.4x2.9 cm with intraventricular extension of hemorrhage and mild obstructive hydrocephalus. 2 mm midline shift from left to right with no evidence of herniation. Near complete resolution of hemorrhage within 4th ventricle. 10/19 CT Head: little interval change in the known 2.0 x 2.7 acute hematoma in left thalamus with intra ventricular extension of hemorrhage. Interval mild worsening of obstructive hydrocephalus. 10/18 CT Head: Left basal ganglia acute hemorrhage, possibly hypertensive with associated intraventricular hemorrhage and mass effect upon the left lateral aspect of the 3rd ventricle with the tip shift of the 3rd ventricle towards the right side. No generalized midline shift. Air-fluid level in sphenoid sinus common nonspecific. Please correlate for concern regarding acute sinusitis. Mild involutional changes. GCS - 8T (E4 VT M4) YOCHA DEHE II 10.0, 12% estimated non-operative mortality 11/03- CT brain w/o cont for re-evaluation of bleed w/findings of Interval decrease in size and density left basal ganglia hematoma however well- circumscribed peripheral rim of low-attenuation edema about the hematoma likely represent some combination of brain edema as well as of brain necrosis. Intraventricular hemorrhage has diminished. Ventricles have also decreased in size though the temporal horns and atria remain prominent compared to the compressed remaining ventricular system. There is persistent compression of the 3rd and left lateral ventricle Chronic white matter and basal nuclei ischemic changes. December 07- reassess pt need for anticoagulation with neurology HTN: 11/12: BP controlled 11/11: BP 134/91, started Norvasc 5mg Daily 11/10: BP 135/90, will d/c IVF 11/09: BP 169/94- same as previous 11/08: BP 148/95, slight elevated, but mostly WNL- continue to hold Hydralazine 11/06: BP elevated 161/99; continue to monitor 11/05: BP WNL Amlodipine 10 mg POQD Hydralazine 25 mg PO BID - currently being held- BP WNL Losartan 100 mg POQD Labetalol 200 mg PO Q12H Respiratory failure on trach collar /mechanical vent: 11/11: Pulm recs- Continue weaning with trials off vent, continue nebulizer treatments 11/10: On trach collar, pulm consulted for potential weaning, mucomyst ordered for secretions 11/08: Trial pt on trach collar w/o mech vent Pulm consulted for trach weaning protocol- Leo 11/08: Trial pt on trach collar w/o mech vent 11/07: Trach collar w/CPAP 11/06: Trach in place. On mech vent s/p tracheostomy Trach tube care CPAP ABG: -10/29 pH 7.46, CO 35, O2 90, HCO3 26.0 -10/28 pH 7.46, CO2 35, O2 73, HCO3 25.9 -10/27 pH 7.49, CO2 33, O2 74, HCO3 26.5 -10/26 pH 7.5, CO2 32, O2 91, HCO3 26.6 -10/24 pH 7.47, CO2 35, O2 119, HCO3 26.5 -10/23 pH 7.47, CO2 33, O2 66, HCO3 25.5 -10/22 pH 7.52, CO2 33, O2 57, HCO3 28.1 -10/21 pH 7.48, CO2 38, O2 79, HCO3 28.5 -10/20 pH 7.46, CO2 37, O2 187 HCO3 26.9 -10/19 pH 7.46, CO2 38, O2 214, HCO3 27.4 Imaging 11/08 CXR-Tracheostomy tube in place. Other lines and tubes in stable position. Mild patchy increased markings in the right infrahilar region. Biapical pleural thickening. 11/02/CXR - repeat CXR for replacement of OGT w/Support lines tubes - normally positioned No interval pathology noted 11/02 CXR - Interval improvement in the right lower lung since the previous study. Appropriate position of the right-sided PICC line with the tip is likely at the SVC right atrium junction 11/01 CXR - The in situ tracheostomy tube and NG tube positions are as before. Mild interval prominence of the right infrahilar bronchovascular markings either due to technique or subtle interval patchy infiltrate. Clinical follow- up recommended 10/31 CXR -In situ tracheostomy tube remains in good position. NGT w/tip overlying LUQ of the abdomen unchanged. Continued improvement right lung base. 10/28 CXR No focal airspace opacity 10/27 CXR No active disease 10/26 CXR - Mild venous congestion. Right hilar prominence 10/24 CXR Mild venous congestion. Mild right infrahilar prominence 10/23 CXR - Mild venous congestion. right hilar prominence. Biapical pleural thickening upper lobe granulomatous changes. lines and tubes in stable position. 10/22 CXR - Worsening consolidative changes to right mid to lower lung zone. lines and tubes in stable position. 10/20 CXR - Distal tip of an endotracheal tube terminates approximately 4.6 cm above the brisa. Left IJ approach Central venous catheter terminates at expected location of the left innominate vein. Nasogastric tube extends to expected location of the stomach 10/19 CXR New nasogastric tube extends to distal esophagus, above the diaphragm. Repositioning is advised. ET tube unchanged. No infiltrate. 10/18 CXR ET tube proximal to brisa, no acute pulmonary pathology official read pending Head of bed to 30* Keep O2 Sat >92% Dysphagia 11/11: Pt w/10cc residuals- kept at rate of 20cc/hr, will consider increasing by 10cc tomorrow if no residuals 11/10: Tube feeds stable 11/09: Tube feeds at 30cc/hr, no reported residuals. Advance by 10cc per day until goal of 50cc. 11/08- OGT placed last night, position verified- ok to use OGT for tube feeds 11/07: NPO- no access to stomach 11/05: OGT removed due to possible contribution to fever/sepsis. Feeding tube via oropharynx replaced 11/02 after pt removed position verified by CXR Feeding tube via oropharynx replaced 11/01 Position verified by CXR NGT was advanced 10/20 - d/c'd Consulted GI- Dr. Renteria- PEG tube placement when not having fevers/ leukocytosis Anemia- resolving 11/11: H/H- 11.1/34.8 11/10: H/H- 11.5/36.1 11/09: H/H- 12.2/39.3 11/08: H/H- 10.4/33.5 11/07: H/H- 11.1/35.8 11/06: f/u H&H, monitor 11/05-11/06: H&H low, stable, continue to monitor H&H: 12.5/40.2- stable Intracranial bleed No coagulopathy Contraindication for anticoagulation Monitor Sepsis- resolving 11/12: Afebrile overnight, f/u am labs 11/11: Afebrile over last 24H, WBC down trending, now 12.3 from 12.6, per ID: resume vancomcyin; trough 10-15; and monitor wbc count FU sputum cxr- talked to lab- results will be available on 11/12- so far only normal kalin growing FU vanc trough on 11/12 before 3rd dose 11/10: Afebrile over last 24H, WBC down trending, no w 12.6 from 14.1, Blood cx neg x 4 D, repeat urine cxr pos for yeast 11/09: Afebrile over last 24H, WBC increased from 11.9 to 14.1; Blood/urine/ sputum cxr sent Vanc trough 8.4 Urine cxr pos for yeast Diflucan 200mg Q24H ordered ID consulted for adjustement of antibiotics/antifungals- awaiting recs 11/08: Afebrile over last 24H, WBC 11.9, Bands 3 11/07: Afebrile over last 24H, WBC 16.3, Bands 6 Trach asp pos for Gram neg rods Blood cxr neg x 48H 11/06: Continue to monitor WBC 11/05: Leukocytosis 21.8 from 19.4, 16.7 - trending up 11/05: Vanc trough - 5.1 Afebrile over last 24H -Started Vanco 1gm Q24H vanco through 11/02 - 5.1 11/01- apr work up sent: blood cxr, urine cxr, CXR, C diff stool Blood cxr neg x 48H urine cxr neg Bandemia 5 10/31- Trach asp cx - normal kalin 10/31 - Urine (d[place]) cxr neg 10/25 Sputum cx: Serratia marcescens and Enterobactor aerogenes 10/21 Sputum cx: Klebsiella pneumoniae Hold change of antibiotics. Fully aware of the low grade temperature, and increase in WBCs. Patient is hemodynamically stable. IV Cefepime 1 gram Q8H Acetaminophen 650 mg Q6 PRN for fever ID following- Kathy- continue Merrem and Vanco due to aspiration and pos Enterobacter Aerogenes Per Micro- Enterobacter aerogenes sensitive to merrem cont merrem Per ID: increase vanc to 1gm Q12H, FU vanc peak and trough on 3rd dose, cont diflucan Vanc trough 13.8- Vanco held, no peak done due to high trough Hypernatremia- resolved: Monitor am labs Na 144- Cont free water flushes Na 142- WNL, will d/c IVF, cont free water flushes Na 147- WNL Na 152- continues to down trend Na 153- down trending Cont free water flushes 300cc Q8H Decreased 1/2NS@ 175 to 75cc/Hr- d/c'd Cont tube feeds Muscular deconditioning due to being bed bound PT Eval and treat Monitor tracheostomy site for drainage, erythema, hematoma, signs of infection. Prophylaxis: GI - Protonix 40 mg IVP daily DVT - contraindicated 2/2 to intracranial bleed Dispo: Con current mgmt Will rec-consult GI when pt is stable for PEG tube placement Cont tube feeds ID following Pulm following Cont condom catheter Cont general body care SW eval for possible LTAC after PEG placement <Apple Vidal V - Last Filed: 11/27/16 20:05> Objective - Vital Signs/Intake and Output Vital Signs (last 24 hours): Temp Pulse Resp BP Pulse Ox 98.1 F 82 20 131/85 99 11/27/16 15:15 11/27/16 16:29 11/27/16 15:15 11/27/16 15:15 11/27/16 15:15 Intake and Output: 11/27/16 11/28/16 18:59 06:59 Intake Total 1760 Output Total 600 Balance 1160 - Medications Medications: Current Medications Acetaminophen (Tylenol 325mg Tab) 650 mg PO Q6 PRN PRN Reason: Fever >100.4 F Last Admin: 11/24/16 09:59 Dose: 650 mg Acetylcysteine (Acetylcysteine 20%) 4 ml INH Q6H OMAR Last Admin: 11/27/16 19:10 Dose: 4 ml Albuterol Sulfate (Albuterol 0.083% Inhal Kim (2.5 Mg/3 Ml) Ud) 2.5 mg INH RQ6 OMAR Last Admin: 11/27/16 19:10 Dose: 2.5 mg Amlodipine Besylate (Norvasc) 5 mg PO DAILY OMAR Last Admin: 11/27/16 09:52 Dose: 5 mg Aspirin (Aspirin Chewable) 81 mg GT DAILY OMAR Last Admin: 11/27/16 09:52 Dose: 81 mg Fluconazole (Diflucan Iv 200 Mg/100 Ml Ns) 100 mls @ 100 mls/hr IVPB Q24H [facility] Last Admin: 11/27/16 18:59 Dose: 100 mls/hr Pantoprazole Sodium (Protonix Susp) 40 mg PO DAILY OMAR Last Admin: 11/27/16 09:52 Dose: 40 mg Rosuvastatin Calcium (Crestor) 5 mg GT HS [facility] Last Admin: 11/26/16 21:16 Dose: 5 mg Saccharomyces Boulardii (Florastor) 250 mg PO BID [facility] Last Admin: 11/27/16 17:49 Dose: 250 mg - Labs Labs: 11/23/16 07:15 11/23/16 07:15 PT 12.9 SECONDS (9.7-12.2) H 11/15/16 13:58 INR 1.2 11/15/16 13:58 APTT 39 SECONDS (21-34) H 11/15/16 13:58 Attending/Attestation - Attestation I have personally seen and examined this patient.: Yes I have fully participated in the care of the patient.: Yes I have reviewed all pertinent clinical information, including history, physical exam and plan: Yes Notes (Text): This is late computer entry for 11/12/16 Patient seen, examined, and case discussed with day-time resident. Patient seen, examined, with daughters at bedside. Follow-up vancomycin trough-->elevated; held vancomycin; Monitor leukocytosis; hypernatremia resolved; when stabilized; patient is eligible for peg placement and will reconsult GI Assessment/Plan (1) Intracranial hemorrhage Assessment & Plan: 10/18 CT Head: Left basal ganglia acute hemorrhage, possibly hypertensive with associated intraventricular hemorrhage and mass effect upon the left lateral aspect of the 3rd ventricle with the tip shift of the 3rd ventricle towards the right side. No generalized midline shift. Air-fluid level in sphenoid sinus common nonspecific. Please correlate for concern regarding acute sinusitis. Mild involutional changes. 10/19 CT Head: little interval change in the known 2.0 x 2.7 acute hematoma in left thalamus with intra ventricular extension of hemorrhage. Interval mild worsening of obstructive hydrocephalus. 10/24 CT Head: little interval change in the size of left thalamic hemorrhage 2.4x2.9 cm with intraventricular extension of hemorrhage and mild obstructive hydrocephalus. 2 mm midline shift from left to right with no evidence of herniation. Near complete resolution of hemorrhage within 4th ventricle. 11/03/16 CT Head; Interval decrease in size and density left basal ganglia hematoma; well-circumscribed peripheral rim of low attentuation edema about hematoma; combination of brain edema and brain necrosis; intraventricular hemorrhage has diminished. Ventricles hae also decreased in size temporal horns and atria remain prominent. Persistent compression of the 3rd and left lateral ventricle * Neurosurgery per initial consult-->patient's prognosis dismal at beginning of admission * Neurology (Dr. Simpson) on board-->per 10/26 note: patient has attained maximum response from neuro point of view from this admission; keep nutritional status and avoid infectious; treat with peg/trach; no antiplatelets for next 4-6 weeks (; maintain MAP ~100) Status: Acute (2) Hypertensive emergency Assessment & Plan: * Controlled * Norvasc 5mg PO daily * monitor vital signs (3) Acute respiratory failure Assessment & Plan: * s/p tracheostomy 10/28/16 * Patient completed trach collar. * Saturating well. * Monitor dressing change of trach site * Pulmonary (Dr. Bailey) consulted to assist with weaning protocol * Mucomyst PRN to help thin out secretions * Duonebs PRN shortness of breathe * monitor and may need suctioning PRN Status: resolved (4) CVA (cerebral vascular accident) Assessment & Plan: * Hemorrhagic stroke with associated hypotension and basal ganglia involvement * [id number]:5.7 * Cholestrol: 202, TG: LDL:130 HDL:52 * Blood pressure control monitoring (5) Sepsis Per 11/05; Fever 103F and associated leukocytosis: 21.8; infection: pneumonia Infectious disease on board (Dr. Chavez) 10/21 Sputum-Klebsiella (sensitive to Maxipime) 10/25 Serratia and Enterobacter (sensitive to Maxipime) 10/31 Sputum: normal 11/06: Enterobacter which is sensitive Meropenem (switch from Maxipime) 11/06 Urine culture: yeast 11/09 Urine culture: yeast Blood cultures: 11/09: monitor Repeat sputum: follow-up Patient is currently on Vancomycin, Meropenem and on Diflucan; trough level elevated monitor leukocytosis (6) Hypernatremia * monitor * d/c IV fluids; on free water flushes * normalized (7) Prophylactic care * Will need PT/OT * s/p trach collar trial, weaning per pulm
[2016-11-12] MEDS: Meropenem 500 MG in Sodium Chloride 0.9% 100 ML IVPB SCH ×2 (05:31→22:15)
[2016-11-12] MEDS: Saccharomyces Boulardi 250 mg Cap PO SCH ×2 (11:00→17:40)
[2016-11-12 12:14] LABS: BASO % 0.3 % (0.0-2.0); EOS # 0.3 K/uL (0.0-0.7); EOS % 2.5 % (0.0-4.0); HEMATOCRIT 37.5 % (35.0-51.0); LYMPH # 1.7 K/uL (1.0-4.3); LYMPH % 13.4 % (20.0-40.0); MEAN CELL VOLUME 82.2 fL (80.0-94.0); MEAN CORPUSCULAR HEMOGLOBIN 25.9 pg (27.0-31.0); MEAN CORPUSCULAR HGB CONC 31.5 g/dL (33.0-37.0); MEAN PLATELET VOLUME 10.2 fL (7.2-11.7); MONO # 0.8 K/uL (0.0-0.8); MONO % 6.6 % (0.0-10.0); RED CELL DISTRIBUTION WIDTH 13.4 % (11.5-14.5); WHITE BLOOD COUNT 12.7 K/uL (4.8-10.8)
[2016-11-12 12:21] LABS: CHLORIDE 99 mmol/L (98-107); SODIUM 140 mmol/L (132-148)
[2016-11-12 12:22] LABS: POTASSIUM 3.6 mmol/L (3.6-5.2)
[2016-11-12 12:23] LABS: BILIRUBIN,TOTAL 0.8 mg/dL (0.2-1.3); CARBON DIOXIDE 31 mmol/L (22-30); GFR AFRICAN-AMERICAN > 60
[2016-11-12 12:24] LABS: ALB/GLOB RATIO 0.8 (1.0-2.1); ALKALINE PHOSPHATASE 103 U/L (38-126); ALT/SGPT 65 U/L (21-72); AST/SGOT 54 U/L (17-59); BLOOD UREA NITROGEN 16 mg/dL (9-20); CALCIUM 8.2 mg/dl (8.6-10.4); GLUCOSE,RANDOM 115 mg/dL (75-110); MAGNESIUM 2.1 mg/dL (1.6-2.3); TOTAL PROTEIN 6.2 g/dL (6.3-8.3)
[2016-11-12] MEDS: Fluconazole IV 200mg/100 ml NS 100 ML IVPB SCH (20:15)
[2016-11-13] MEDS: Acetylcysteine 20% Inhal Soln (4ml) INH SCH ×4 (01:03→19:29)
[2016-11-13] MEDS: Albuterol 0.083% Inhal Sol (2.5 mg/3 mL) UD INH SCH ×4 (01:04→19:29)
--- NOTE | 2016-11-13 01:21 | CP.PCM.PN ---
<Sung Keller - Last Filed: 11/13/16 01:15> Subjective - Date & Time of Evaluation Date of Evaluation: 11/13/16 Time of Evaluation: 01:15 - Subjective Subjective: PGY-1 note for medicine service. Pt seen and examined at bedside. Pt's family there at bedside as well. They state that he responds to their questions with yes and no movements of his head. No acute events per nursing staff. Objective - Vital Signs/Intake and Output Vital Signs (last 24 hours): Temp Pulse Resp BP Pulse Ox 98.8 F 91 H 20 140/87 99 11/13/16 00:00 11/13/16 00:00 11/13/16 00:00 11/13/16 00:00 11/13/16 00:00 Intake and Output: 11/12/16 11/13/16 18:59 06:59 Intake Total 360 Output Total 600 Balance -240 - Medications Medications: Current Medications Acetaminophen (Tylenol 325mg Tab) 650 mg PO Q6 PRN PRN Reason: Fever >100.4 F Last Admin: 11/05/16 09:59 Dose: 650 mg Acetylcysteine (Acetylcysteine 20%) 4 ml INH Q6H [facility] Last Admin: 11/13/16 01:03 Dose: 4 ml Albuterol Sulfate (Albuterol 0.083% Inhal Kim (2.5 Mg/3 Ml) Ud) 2.5 mg INH RQ6 OMAR Last Admin: 11/13/16 01:04 Dose: 2.5 mg Amlodipine Besylate (Norvasc) 5 mg PO DAILY OMAR Last Admin: 11/12/16 11:00 Dose: 5 mg Meropenem 500 mg/ Sodium (Chloride) 100 mls @ 100 mls/hr IVPB Q8 O[facility] Last Admin: 11/12/16 22:15 Dose: 100 mls/hr Fluconazole (Diflucan Iv 200 Mg/100 Ml Ns) 100 mls @ 100 mls/hr IVPB Q24H [facility] Last Admin: 11/12/16 20:15 Dose: 100 mls/hr Vancomycin/Sodium Chloride (Vancocin) 200 mls @ 133.333 mls/hr IVPB Q12H [facility] Last Admin: 11/12/16 11:48 Dose: 133.333 mls/hr Pantoprazole Sodium (Protonix Inj) 40 mg IVP DAILY [facility] Last Admin: 11/12/16 11:00 Dose: 40 mg Saccharomyces Trinitydii (Florastor) 250 mg PO BID [facility] Last Admin: 11/12/16 17:40 Dose: 250 mg - Labs Labs: 11/12/16 12:01 11/12/16 12:05 PT 15.0 SECONDS (9.7-12.2) H 10/31/16 06:21 INR 1.3 10/31/16 06:21 APTT 30 SECONDS (21-34) 10/28/16 05:59 - Constitutional Appears: Non-toxic, No Acute Distress, Chronically Ill - Head Exam Head Exam: ATRAUMATIC, NORMOCEPHALIC - ENT Exam Additional comments: feeding tube in place - Neck Exam Additional comments: Trach noted with secretions - Respiratory Exam Respiratory Exam: Clear to Ausculation Bilateral, NORMAL BREATHING PATTERN - Cardiovascular Exam Cardiovascular Exam: +S1, +S2 - GI/Abdominal Exam GI & Abdominal Exam: Soft, Normal Bowel Sounds - Neurological Exam Neurological Exam: Alert, Awake - Skin Skin Exam: Dry, Warm Assessment and Plan - Assessment and Plan (Free Text) Assessment: 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 Follows simple commands to protrude tongue and move L arm 11/05: did not follow simple commands 11/04: Continues to follows simple commands in [place] Neu[facility] consult - Dr. Simpson advise to schedule trach and PEG. Hold antiplatelets for 4-6 weeks and maintain blood pressure above 100 systolic. Sedation as needed 10/24 CT Head: little interval change in the size of left thalamic hemorrhage 2.4x2.9 cm with intraventricular extension of hemorrhage and mild obstructive hydrocephalus. 2 mm midline shift from left to right with no evidence of herniation. Near complete resolution of hemorrhage within 4th ventricle. 10/19 CT Head: little interval change in the known 2.0 x 2.7 acute hematoma in left thalamus with intra ventricular extension of hemorrhage. Interval mild worsening of obstructive hydrocephalus. 10/18 CT Head: Left basal ganglia acute hemorrhage, possibly hypertensive with associated intraventricular hemorrhage and mass effect upon the left lateral aspect of the 3rd ventricle with the tip shift of the 3rd ventricle towards the right side. No generalized midline shift. Air-fluid level in sphenoid sinus common nonspecific. Please correlate for concern regarding acute sinusitis. Mild involutional changes. GCS - 8T (E4 VT M4) VENETIE II 10.0, 12% estimated non-operative mortality 11/03- CT brain w/o cont for re-evaluation of bleed w/findings of Interval decrease in size and density left basal ganglia hematoma however well- circumscribed peripheral rim of low-attenuation edema about the hematoma likely represent some combination of brain edema as well as of brain necrosis. Intraventricular hemorrhage has diminished. Ventricles have also decreased in size though the temporal horns and atria remain prominent compared to the compressed remaining ventricular system. There is persistent compression of the 3rd and left lateral ventricle Chronic white matter and basal nuclei ischemic changes. December 07- reassess pt need for anticoagulation with neurology HTN: 11/12: BP controlled 11/11: BP 134/91, started Norvasc 5mg Daily 11/10: BP 135/90, will d/c IVF 11/09: BP 169/94- same as previous 11/08: BP 148/95, slight elevated, but mostly WNL- continue to hold Hydralazine 11/06: BP elevated 161/99; continue to monitor 11/05: BP WNL Amlodipine 10 mg POQD Hydralazine 25 mg PO BID - currently being held- BP WNL Losartan 100 mg POQD Labetalol 200 mg PO Q12H Respiratory failure on trach collar /mechanical vent: 11/13: Off of vent, tolerating well. 11/11: Pulm recs- Continue weaning with trials off vent, continue nebulizer treatments 11/10: On trach collar, pulm consulted for potential weaning, mucomyst ordered for secretions 11/08: Trial pt on trach collar w/o mech vent Pulm consulted for trach weaning protocol- Leo 11/08: Trial pt on trach collar w/o mech vent 11/07: Trach collar w/CPAP 11/06: Trach in place. On [facility] vent s/p tracheostomy Trach tube care CPAP ABG: -10/29 pH 7.46, CO 35, O2 90, HCO3 26.0 -10/28 pH 7.46, CO2 35, O2 73, HCO3 25.9 -10/27 pH 7.49, CO2 33, O2 74, HCO3 26.5 -10/26 pH 7.5, CO2 32, O2 91, HCO3 26.6 -10/24 pH 7.47, CO2 35, O2 119, HCO3 26.5 -10/23 pH 7.47, CO2 33, O2 66, HCO3 25.5 -10/22 pH 7.52, CO2 33, O2 57, HCO3 28.1 -10/21 pH 7.48, CO2 38, O2 79, HCO3 28.5 -10/20 pH 7.46, CO2 37, O2 187 HCO3 26.9 -10/19 pH 7.46, CO2 38, O2 214, HCO3 27.4 Imaging 11/08 CXR-Tracheostomy tube in place. Other lines and tubes in stable position. Mild patchy increased markings in the right infrahilar region. Biapical pleural thickening. 11/02/CXR - repeat CXR for replacement of OGT w/Support lines tubes - normally positioned No interval pathology noted 11/02 CXR - Interval improvement in the right lower lung since the previous study. Appropriate position of the right-sided PICC line with the tip is likely at the SVC right atrium junction 11/01 CXR - The in situ tracheostomy tube and NG tube positions are as before. Mild interval prominence of the right infrahilar bronchovascular markings either due to technique or subtle interval patchy infiltrate. Clinical follow- up recommended 10/31 CXR -In situ tracheostomy tube remains in good position. NGT w/tip overlying LUQ of the abdomen unchanged. Continued improvement right lung base. 10/28 CXR No focal airspace opacity 10/27 CXR No active disease 10/26 CXR - Mild venous congestion. Right hilar prominence 10/24 CXR Mild venous congestion. Mild right infrahilar prominence 10/23 CXR - Mild venous congestion. right hilar prominence. Biapical pleural thickening upper lobe granulomatous changes. lines and tubes in stable position. 10/22 CXR - Worsening consolidative changes to right mid to lower lung zone. lines and tubes in stable position. 10/20 CXR - Distal tip of an endotracheal tube terminates approximately 4.6 cm above the brisa. Left IJ approach Central venous catheter terminates at expected location of the left innominate vein. Nasogastric tube extends to expected location of the stomach 10/19 CXR New nasogastric tube extends to distal esophagus, above the diaphragm. Repositioning is advised. ET tube unchanged. No infiltrate. 10/18 CXR ET tube proximal to brisa, no acute pulmonary pathology official read pending Head of bed to 30* Keep O2 Sat >92% Dysphagia 11/11: Pt w/10cc residuals- kept at rate of 20cc/hr, will consider increasing by 10cc tomorrow if no residuals 11/10: Tube feeds stable 11/09: Tube feeds at 30cc/hr, no reported residuals. Advance by 10cc per day until goal of 50cc. 11/08- OGT placed last night, position verified- ok to use OGT for tube feeds 11/07: NPO- no access to stomach 11/05: OGT removed due to possible contribution to fever/sepsis. Feeding tube via oropharynx replaced 11/02 after pt removed position verified by CXR Feeding tube via oropharynx replaced 11/01 Position verified by CXR NGT was advanced 10/20 - d/c'd Consulted GI- Dr. Renteria- PEG tube placement when not having fevers/ leukocytosis Anemia- resolving 11/11: H/H- 11.1/34.8 11/10: H/H- 11.5/36.1 11/09: H/H- 12.2/39.3 11/08: H/H- 10.4/33.5 11/07: H/H- 11.1/35.8 11/06: f/u H&H, monitor 11/05-11/06: H&H low, stable, continue to monitor H&H: 12.5/40.2- stable Intracranial bleed No coagulopathy Contraindication for anticoagulation Monitor Sepsis- resolving 11/13: Afebrile, labs stable 11/12: Afebrile overnight, f/u am labs 11/11: Afebrile over last 24H, WBC down trending, now 12.3 from 12.6, per ID: resume vancomcyin; trough 10-15; and monitor wbc count FU sputum cxr- talked to lab- results will be available on 11/12- so far only normal kalin growing FU vanc trough on 11/12 before 3rd dose 11/10: Afebrile over last 24H, WBC down trending, no w 12.6 from 14.1, Blood cx neg x 4 D, repeat urine cxr pos for yeast 11/09: Afebrile over last 24H, WBC increased from 11.9 to 14.1; Blood/urine/ sputum cxr sent Vanc trough 8.4 Urine cxr pos for yeast Diflucan 200mg Q24H ordered ID consulted for adjustement of antibiotics/antifungals- awaiting recs 11/08: Afebrile over last 24H, WBC 11.9, Bands 3 11/07: Afebrile over last 24H, WBC 16.3, Bands 6 Trach asp pos for Gram neg rods Blood cxr neg x 48H 11/06: Continue to monitor WBC 11/05: Leukocytosis 21.8 from 19.4, 16.7 - trending up 11/05: Vanc trough - 5.1 Afebrile over last 24H -Started Vanco 1gm Q24H vanco through 11/02 - 5.1 11/01- apr work up sent: blood cxr, urine cxr, CXR, C diff stool Blood cxr neg x 48H urine cxr neg Bandemia 5 10/31- Trach asp cx - normal kalin 10/31 - Urine ([place]) cxr neg 10/25 Sputum cx: Serratia marcescens and Enterobactor aerogenes 10/21 Sputum cx: Klebsiella pneumoniae Hold change of antibiotics. Fully aware of the low grade temperature, and increase in WBCs. Patient is hemodynamically stable. IV Cefepime 1 gram Q8H Acetaminophen 650 mg Q6 PRN for fever ID following- Kathy- continue Merrem and Vanco due to aspiration and pos Enterobacter Aerogenes Per Micro- Enterobacter aerogenes sensitive to merrem cont merrem Per ID: increase vanc to 1gm Q12H, FU vanc peak and trough on 3rd dose, cont diflucan Vanc trough 13.8- Vanco held, no peak done due to high trough Hypernatremia- resolved: Monitor am labs Na 144- Cont free water flushes Na 142- WNL, will d/c IVF, cont free water flushes Na 147- WNL Na 152- continues to down trend Na 153- down trending Cont free water flushes 300cc Q8H Decreased 1/2NS@ 175 to 75cc/Hr- d/c'd Cont tube feeds Muscular deconditioning due to being bed bound PT Eval and treat Monitor tracheostomy site for drainage, erythema, hematoma, signs of infection. Prophylaxis: GI - Protonix 40 mg IVP daily DVT - contraindicated 2/2 to intracranial bleed Dispo: Con current mgmt Will rec-consult GI when pt is stable for PEG tube placement Cont tube feeds ID following Pulm following Cont condom catheter Cont general body care SW eval for possible LTAC after PEG placement <Apple Vidal V - Last Filed: 11/27/16 20:07> Objective - Vital Signs/Intake and Output Vital Signs (last 24 hours): Temp Pulse Resp BP Pulse Ox 98.1 F 82 20 131/85 99 11/27/16 15:15 11/27/16 16:29 11/27/16 15:15 11/27/16 15:15 11/27/16 15:15 Intake and Output: 11/27/16 11/28/16 18:59 06:59 Intake Total 1760 Output Total 600 Balance 1160 - Medications Medications: Current Medications Acetaminophen (Tylenol 325mg Tab) 650 mg PO Q6 PRN PRN Reason: Fever >100.4 F Last Admin: 11/24/16 09:59 Dose: 650 mg Acetylcysteine (Acetylcysteine 20%) 4 ml INH Q6H [facility] Last Admin: 11/27/16 19:10 Dose: 4 ml Albuterol Sulfate (Albuterol 0.083% Inhal Kim (2.5 Mg/3 Ml) Ud) 2.5 mg INH RQ6 OMAR Last Admin: 11/27/16 19:10 Dose: 2.5 mg Amlodipine Besylate (Norvasc) 5 mg PO DAILY O[facility] Last Admin: 11/27/16 09:52 Dose: 5 mg Aspirin (Aspirin Chewable) 81 mg GT DAILY [facility] Last Admin: 11/27/16 09:52 Dose: 81 mg Fluconazole (Diflucan Iv 200 Mg/100 Ml Ns) 100 mls @ 100 mls/hr IVPB Q24H [facility] Last Admin: 11/27/16 18:59 Dose: 100 mls/hr Pantoprazole Sodium (Protonix Susp) 40 mg PO DAILY OMAR Last Admin: 11/27/16 09:52 Dose: 40 mg Rosuvastatin Calcium (Crestor) 5 mg GT HS [facility] Last Admin: 11/26/16 21:16 Dose: 5 mg Saccharomyces Boulardii (Florastor) 250 mg PO BID [facility] Last Admin: 11/27/16 17:49 Dose: 250 mg - Labs Labs: 11/23/16 07:15 11/23/16 07:15 PT 12.9 SECONDS (9.7-12.2) H 11/15/16 13:58 INR 1.2 11/15/16 13:58 APTT 39 SECONDS (21-34) H 11/15/16 13:58 Attending/Attestation - Attestation I have personally seen and examined this patient.: Yes I have fully participated in the care of the patient.: Yes I have reviewed all pertinent clinical information, including history, physical exam and plan: Yes Notes (Text): This is late computer entry for 11/13/16 Patient seen, examined, and case discussed with day-time resident. Patient seen, examined, with daughters at bedside. Follow-up random vancomycin; held day prior; infectious disease continue vanco to cover for aspiration Monitor leukocytosis improved; hypernatremia resolved; when stabilized; patient is eligible for peg placement and will reconsult GI Assessment/Plan (1) Intracranial hemorrhage Assessment & Plan: 10/18 CT Head: Left basal ganglia acute hemorrhage, possibly hypertensive with associated intraventricular hemorrhage and mass effect upon the left lateral aspect of the 3rd ventricle with the tip shift of the 3rd ventricle towards the right side. No generalized midline shift. Air-fluid level in sphenoid sinus common nonspecific. Please correlate for concern regarding acute sinusitis. Mild involutional changes. 10/19 CT Head: little interval change in the known 2.0 x 2.7 acute hematoma in left thalamus with intra ventricular extension of hemorrhage. Interval mild worsening of obstructive hydrocephalus. 10/24 CT Head: little interval change in the size of left thalamic hemorrhage 2.4x2.9 cm with intraventricular extension of hemorrhage and mild obstructive hydrocephalus. 2 mm midline shift from left to right with no evidence of herniation. Near complete resolution of hemorrhage within 4th ventricle. 11/03/16 CT Head; Interval decrease in size and density left basal ganglia hematoma; well-circumscribed peripheral rim of low attentuation edema about hematoma; combination of brain edema and brain necrosis; intraventricular hemorrhage has diminished. Ventricles hae also decreased in size temporal horns and atria remain prominent. Persistent compression of the 3rd and left lateral ventricle * Neurosurgery per initial consult-->patient's prognosis dismal at beginning of admission * Neurology (Dr. Simpson) on board-->per 10/26 note: patient has attained maximum response from neuro point of view from this admission; keep nutritional status and avoid infectious; treat with peg/trach; no antiplatelets for next 4-6 weeks (; maintain MAP ~100) Status: Acute (2) Hypertensive emergency Assessment & Plan: * Controlled * Norvasc 5mg PO daily * monitor vital signs (3) Acute respiratory failure Assessment & Plan: * s/p tracheostomy 10/28/16 * Patient completed trach collar. * Saturating well. * Monitor dressing change of trach site * Pulmonary (Dr. Bailey) consulted to assist with weaning protocol * Mucomyst PRN to help thin out secretions * Duonebs PRN shortness of breathe * monitor and may need suctioning PRN Status: resolved (4) CVA (cerebral vascular accident) Assessment & Plan: * Hemorrhagic stroke with associated hypotension and basal ganglia involvement * [id number]:5.7 * Cholestrol: 202, TG: LDL:130 HDL:52 * Blood pressure control monitoring (5) Sepsis Per 11/05; Fever 103F and associated leukocytosis: 21.8; infection: pneumonia Infectious disease on board (Dr. Chavez) 10/21 Sputum-Klebsiella (sensitive to Maxipime) 10/25 Serratia and Enterobacter (sensitive to Maxipime) 10/31 Sputum: normal 11/06: Enterobacter which is sensitive Meropenem (switch from Maxipime) 11/06 Urine culture: yeast 11/09 Urine culture: yeast Blood cultures: 11/09: monitor Repeat sputum: follow-up Patient is currently on Vancomycin held prior, Meropenem and on Diflucan; trough level elevated monitor leukocytosis (6) Hypernatremia * monitor * d/c IV fluids; on free water flushes * normalized (7) Prophylactic care * Will need PT/OT * s/p trach collar trial, weaning per pulm
[2016-11-13] MEDS: Vancomycin 1 gm/NS 200 ml 200 ML IVPB SCH ×2 (02:11→14:51)
[2016-11-13] MEDS: Meropenem 500 MG in Sodium Chloride 0.9% 100 ML IVPB SCH ×3 (05:16→21:56)
[2016-11-13 07:11] LABS: BASO % 0.4 % (0.0-2.0); EOS # 0.3 K/uL (0.0-0.7); EOS % 2.8 % (0.0-4.0); HEMATOCRIT 34.6 % (35.0-51.0); LYMPH % 8.5 % (20.0-40.0); MEAN CORPUSCULAR HEMOGLOBIN 26.3 pg (27.0-31.0); MEAN CORPUSCULAR HGB CONC 32.1 g/dL (33.0-37.0); MEAN PLATELET VOLUME 9.5 fL (7.2-11.7); MONO # 0.9 K/uL (0.0-0.8); MONO % 7.5 % (0.0-10.0); PLATELET COUNT 253 K/uL (130-400); RED CELL DISTRIBUTION WIDTH 13.9 % (11.5-14.5); WHITE BLOOD COUNT 12.2 K/uL (4.8-10.8)
[2016-11-13 07:26] LABS: CHLORIDE 99 mmol/L (98-107); SODIUM 138 mmol/L (132-148)
[2016-11-13 07:28] LABS: BILIRUBIN,TOTAL 0.7 mg/dL (0.2-1.3); GFR AFRICAN-AMERICAN > 60
[2016-11-13 07:29] LABS: ALB/GLOB RATIO 0.8 (1.0-2.1); ALKALINE PHOSPHATASE 97 U/L (38-126); ALT/SGPT 56 U/L (21-72); AST/SGOT 43 U/L (17-59); BLOOD UREA NITROGEN 17 mg/dL (9-20); CARBON DIOXIDE 31 mmol/L (22-30); GLUCOSE,RANDOM 100 mg/dL (75-110); PHOSPHOROUS 3.1 mg/dL (2.5-4.5); TOTAL PROTEIN 5.8 g/dL (6.3-8.3)
[2016-11-13 07:30] LABS: MAGNESIUM 2.1 mg/dL (1.6-2.3)
[2016-11-13 08:47] LABS: EOSINOPHIL 2 % (0-4); NEUTROPHIL 82 % (50-75); TOTAL CELLS COUNTED 100
[2016-11-13] MEDS: Saccharomyces Boulardi 250 mg Cap PO SCH ×2 (11:14→17:33)
[2016-11-13] MEDS: Fluconazole IV 200mg/100 ml NS 100 ML IVPB SCH (20:00)
[2016-11-14] MEDS: Acetylcysteine 20% Inhal Soln (4ml) INH SCH ×4 (01:10→19:48)
[2016-11-14] MEDS: Albuterol 0.083% Inhal Sol (2.5 mg/3 mL) UD INH SCH ×4 (01:10→19:48)
[2016-11-14] MEDS: Vancomycin 1 gm/NS 200 ml 200 ML IVPB SCH ×2 (02:00→14:37)
[2016-11-14] MEDS: Meropenem 500 MG in Sodium Chloride 0.9% 100 ML IVPB SCH ×3 (05:00→21:28)
[2016-11-14 07:31] LABS: BASO % 0.3 % (0.0-2.0); EOS # 0.4 K/uL (0.0-0.7); EOS % 3.9 % (0.0-4.0); HEMATOCRIT 35.2 % (35.0-51.0); LYMPH % 10.1 % (20.0-40.0); MEAN CELL VOLUME 81.7 fL (80.0-94.0); MEAN CORPUSCULAR HEMOGLOBIN 26.3 pg (27.0-31.0); MEAN CORPUSCULAR HGB CONC 32.1 g/dL (33.0-37.0); MEAN PLATELET VOLUME 9.4 fL (7.2-11.7); MONO # 0.8 K/uL (0.0-0.8); MONO % 8.1 % (0.0-10.0); NRBC % 0.2 % (0.0-2.0); RED CELL DISTRIBUTION WIDTH 13.7 % (11.5-14.5); WHITE BLOOD COUNT 9.7 K/uL (4.8-10.8)
[2016-11-14 07:39] LABS: CHLORIDE 95 mmol/L (98-107); POTASSIUM 3.8 mmol/L (3.6-5.2); SODIUM 138 mmol/L (132-148)
[2016-11-14 07:41] LABS: BILIRUBIN,TOTAL 0.6 mg/dL (0.2-1.3); CARBON DIOXIDE 31 mmol/L (22-30); GFR AFRICAN-AMERICAN > 60
[2016-11-14 07:42] LABS: ALB/GLOB RATIO 0.8 (1.0-2.1); ALKALINE PHOSPHATASE 105 U/L (38-126); ALT/SGPT 57 U/L (21-72); AST/SGOT 40 U/L (17-59); BLOOD UREA NITROGEN 16 mg/dL (9-20); GLUCOSE,RANDOM 88 mg/dL (75-110); TOTAL PROTEIN 6.3 g/dL (6.3-8.3)
[2016-11-14] MEDS: Pantoprazole 40 mg EC Tab PO SCH (10:00)
[2016-11-14] MEDS: Saccharomyces Boulardi 250 mg Cap PO SCH ×2 (10:00→18:37)
--- NOTE | 2016-11-14 10:52 | CP.PCM.PN ---
<Marybel Taylor - Last Filed: 11/14/16 15:36> Subjective - Date & Time of Evaluation Date of Evaluation: 11/14/16 Time of Evaluation: 06:15 - Subjective Subjective: Internal medicine progress note for Hospitalist service- Marybel Taylor, PGY-1 Pt S & E at bedside. Pt stable as per nursing- no acute events overnight, awake, alert, sometimes followings simple commands in [place]- does not move left side of body. Objective - Vital Signs/Intake and Output Vital Signs (last 24 hours): Temp Pulse Resp BP Pulse Ox 98.4 F 90 20 146/95 H 100 11/14/16 08:00 11/14/16 08:00 11/14/16 08:00 11/14/16 08:00 11/14/16 08:00 Intake and Output: 11/14/16 11/14/16 06:59 18:59 Intake Total 760 Output Total 500 Balance 260 - Medications Medications: Current Medications Acetaminophen (Tylenol 325mg Tab) 650 mg PO Q6 PRN PRN Reason: Fever >100.4 F Last Admin: 11/05/16 09:59 Dose: 650 mg Acetylcysteine (Acetylcysteine 20%) 4 ml INH Q6H [facility] Last Admin: 11/14/16 08:09 Dose: 4 ml Albuterol Sulfate (Albuterol 0.083% Inhal Kim (2.5 Mg/3 Ml) Ud) 2.5 mg INH RQ6 [facility] Last Admin: 11/14/16 08:09 Dose: 2.5 mg Amlodipine Besylate (Norvasc) 5 mg PO DAILY [facility] Last Admin: 11/13/16 11:14 Dose: 5 mg Meropenem 500 mg/ Sodium (Chloride) 100 mls @ 100 mls/hr IVPB Q8 [facility] Last Admin: 11/14/16 05:00 Dose: 100 mls/hr Fluconazole (Diflucan Iv 200 Mg/100 Ml Ns) 100 mls @ 100 mls/hr IVPB Q24H [facility] Last Admin: 11/13/16 20:00 Dose: 100 mls/hr Vancomycin/Sodium Chloride (Vancocin) 200 mls @ 133.333 mls/hr IVPB Q12H [facility] Stop: 11/18/16 03:01 Last Admin: 11/14/16 02:00 Dose: 133.333 mls/hr Pantoprazole Sodium (Protonix Ec Tab) 40 mg PO DAILY [facility] Saccharomyces Tyronulardii (Florastor) 250 mg PO BID [facility] Last Admin: 11/13/16 17:33 Dose: 250 mg - Labs Labs: 11/14/16 07:24 11/14/16 07:24 PT 15.0 SECONDS (9.7-12.2) H 10/31/16 06:21 INR 1.3 10/31/16 06:21 APTT 30 SECONDS (21-34) 10/28/16 05:59 - Constitutional Appears: Non-toxic, No Acute Distress - Head Exam Head Exam: ATRAUMATIC, NORMAL INSPECTION, NORMOCEPHALIC - Eye Exam Eye Exam: EOMI, Normal appearance, PERRL Pupil Exam: NORMAL ACCOMODATION, PERRL - ENT Exam ENT Exam: Mucous Membranes Moist, Normal Exam Additional comments: OGT in place Poor dentition - Neck Exam Neck Exam: absent: Full ROM Additional comments: Trach collar in place - Respiratory Exam Respiratory Exam: Clear to Ausculation Bilateral, NORMAL BREATHING PATTERN. absent: Rales, Rhonchi, Wheezes - Cardiovascular Exam Cardiovascular Exam: REGULAR RHYTHM, +S1, +S2 - GI/Abdominal Exam GI & Abdominal Exam: Soft, Normal Bowel Sounds. absent: Tenderness - Extremities Exam Extremities Exam: Normal Capillary Refill. 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 Follows simple commands to protrude tongue and move L arm 11/05: did not follow simple commands 11/04: Continues to follows simple commands in [place] Neurology consult - Dr. Simpson advise to schedule trach and PEG. Hold antiplatelets for 4-6 weeks and maintain blood pressure above 100 systolic. Sedation as needed 10/24 CT Head: little interval change in the size of left thalamic hemorrhage 2.4x2.9 cm with intraventricular extension of hemorrhage and mild obstructive hydrocephalus. 2 mm midline shift from left to right with no evidence of herniation. Near complete resolution of hemorrhage within 4th ventricle. 10/19 CT Head: little interval change in the known 2.0 x 2.7 acute hematoma in left thalamus with intra ventricular extension of hemorrhage. Interval mild worsening of obstructive hydrocephalus. 10/18 CT Head: Left basal ganglia acute hemorrhage, possibly hypertensive with associated intraventricular hemorrhage and mass effect upon the left lateral aspect of the 3rd ventricle with the tip shift of the 3rd ventricle towards the right side. No generalized midline shift. Air-fluid level in sphenoid sinus common nonspecific. Please correlate for concern regarding acute sinusitis. Mild involutional changes. GCS - 8T (E4 VT M4) [place] II 10.0, 12% estimated non-operative mortality 11/03- CT brain w/o cont for re-evaluation of bleed w/findings of Interval decrease in size and density left basal ganglia hematoma however well- circumscribed peripheral rim of low-attenuation edema about the hematoma likely represent some combination of brain edema as well as of brain necrosis. Intraventricular hemorrhage has diminished. Ventricles have also decreased in size though the temporal horns and atria remain prominent compared to the compressed remaining ventricular system. There is persistent compression of the 3rd and left lateral ventricle Chronic white matter and basal nuclei ischemic changes. December 07- reassess pt need for anticoagulation with neurology HTN: 11/14:BP 146/95, cont Norvasc 11/12: BP controlled 11/11: BP 134/91, started Norvasc 5mg Daily 11/10: BP 135/90, will d/c IVF 11/09: BP 169/94- same as previous 11/08: BP 148/95, slight elevated, but mostly WNL- continue to hold Hydralazine 11/06: BP elevated 161/99; continue to monitor 11/05: BP WNL Amlodipine 10 mg POQD Hydralazine 25 mg PO BID - currently being held- BP WNL Losartan 100 mg POQD Labetalol 200 mg PO Q12H Respiratory failure on trach collar /mechanical vent: 11/14: Still tolerating trach collar off vent, pulm following 11/13: Off of vent, tolerating well. 11/11: Pulm recs- Continue weaning with trials off vent, continue nebulizer treatments 11/10: On trach collar, pulm consulted for potential weaning, mucomyst ordered for secretions 11/08: Trial pt on trach collar w/o mech vent Pulm consulted for trach weaning protocol- Leo 11/08: Trial pt on trach collar w/o mech vent 11/07: Trach collar w/CPAP 11/06: Trach in place. On mech vent s/p tracheostomy Trach tube care CPAP ABG: -10/29 pH 7.46, CO 35, O2 90, HCO3 26.0 -10/28 pH 7.46, CO2 35, O2 73, HCO3 25.9 -10/27 pH 7.49, CO2 33, O2 74, HCO3 26.5 -10/26 pH 7.5, CO2 32, O2 91, HCO3 26.6 -13 pH 7.47, CO2 35, O2 119, HCO3 26.5 -12 pH 7.47, CO2 33, O2 66, HCO3 25.5 -11 pH 7.52, CO2 33, O2 57, HCO3 28.1 -10 pH 7.48, CO2 38, O2 79, HCO3 28.5 -9 pH 7.46, CO2 37, O2 187 HCO3 26.9 -8 pH 7.46, CO2 38, O2 214, HCO3 27.4 Imaging 11/08 CXR-Tracheostomy tube in place. Other lines and tubes in stable position. Mild patchy increased markings in the right infrahilar region. Biapical pleural thickening. 11/02/CXR - repeat CXR for replacement of OGT w/Support lines tubes - normally positioned No interval pathology noted 11/02 CXR - Interval improvement in the right lower lung since the previous study. Appropriate position of the right-sided PICC line with the tip is likely at the SVC right atrium junction 11/01 CXR - The in situ tracheostomy tube and NG tube positions are as before. Mild interval prominence of the right infrahilar bronchovascular markings either due to technique or subtle interval patchy infiltrate. Clinical follow- up recommended 10/31 CXR -In situ tracheostomy tube remains in good position. NGT w/tip overlying LUQ of the abdomen unchanged. Continued improvement right lung base. 10/28 CXR No focal airspace opacity 10/27 CXR No active disease 10/26 CXR - Mild venous congestion. Right hilar prominence 10/24 CXR Mild venous congestion. Mild right infrahilar prominence 10/23 CXR - Mild venous congestion. right hilar prominence. Biapical pleural thickening upper lobe granulomatous changes. lines and tubes in stable position. 10/22 CXR - Worsening consolidative changes to right mid to lower lung zone. lines and tubes in stable position. 10/20 CXR - Distal tip of an endotracheal tube terminates approximately 4.6 cm above the brisa. Left IJ approach Central venous catheter terminates at expected location of the left innominate vein. Nasogastric tube extends to expected location of the stomach 10/19 CXR New nasogastric tube extends to distal esophagus, above the diaphragm. Repositioning is advised. ET tube unchanged. No infiltrate. 10/18 CXR ET tube proximal to brisa, no acute pulmonary pathology official read pending Head of bed to 30* Keep O2 Sat >92% Dysphagia 11/14: No residuals overnight, ok to increase rate to 30cc/hr, GI re-consulted for PEG tube placement 11/11: Pt w/10cc residuals- kept at rate of 20cc/hr, will consider increasing by 10cc tomorrow if no residuals 11/10: Tube feeds stable 11/09: Tube feeds at 30cc/hr, no reported residuals. Advance by 10cc per day until goal of 50cc. 11/08- OGT placed last night, position verified- ok to use OGT for tube feeds 11/07: NPO- no access to stomach 11/05: OGT removed due to possible contribution to fever/sepsis. Feeding tube via oropharynx replaced 11/02 after pt removed position verified by CXR Feeding tube via oropharynx replaced 11/01 Position verified by CXR NGT was advanced 10/20 - d/c'd Consulted GI- Dr. Renteria- PEG tube placement when not having fevers/ leukocytosis Anemia- resolving 11/14: H/H - 11.3/35.2 11/11: H/H- 11.1/34.8 11/10: H/H- 11.5/36.1 11/09: H/H- 12.2/39.3 11/08: H/H- 10.4/33.5 11/07: H/H- 11.1/35.8 11/06: f/u H&H, monitor 11/05-11/06: H&H low, stable, continue to monitor H&H: 12.5/40.2- stable Intracranial bleed No coagulopathy Contraindication for anticoagulation Monitor Sepsis- resolving 11/14: Afebrile over last 24H, no leukocytosis 11/13: Afebrile, labs stable 11/12: Afebrile overnight, f/u am labs 11/11: Afebrile over last 24H, WBC down trending, now 12.3 from 12.6, per ID: resume vancomcyin; trough 10-15; and monitor wbc count FU sputum cxr- talked to lab- results will be available on 11/12- so far only normal kalin growing FU vanc trough on 11/12 before 3rd dose 11/10: Afebrile over last 24H, WBC down trending, no w 12.6 from 14.1, Blood cx neg x 4 D, repeat urine cxr pos for yeast 11/09: Afebrile over last 24H, WBC increased from 11.9 to 14.1; Blood/urine/ sputum cxr sent Vanc trough 8.4 Urine cxr pos for yeast Diflucan 200mg Q24H ordered ID consulted for adjustement of antibiotics/antifungals- awaiting recs 11/08: Afebrile over last 24H, WBC 11.9, Bands 3 11/07: Afebrile over last 24H, WBC 16.3, Bands 6 Trach asp pos for Gram neg rods Blood cxr neg x 48H 11/06: Continue to monitor WBC 11/05: Leukocytosis 21.8 from 19.4, 16.7 - trending up 11/05: Vanc trough - 5.1 Afebrile over last 24H -Started Vanco 1gm Q24H vanco through 11/02 - 5.1 11/01- apr work up sent: blood cxr, urine cxr, CXR, C diff stool Blood cxr neg x 48H urine cxr neg Bandemia 5 10/31- Trach asp cx - normal kalin 10/31 - Urine ([place]) cxr neg 10/25 Sputum cx: Serratia marcescens and Enterobactor aerogenes 10/21 Sputum cx: Klebsiella pneumoniae Hold change of antibiotics. Fully aware of the low grade temperature, and increase in WBCs. Patient is hemodynamically stable. IV Cefepime 1 gram Q8H Acetaminophen 650 mg Q6 PRN for fever ID following- Kathy- continue Merrem and Vanco due to aspiration and pos Enterobacter Aerogenes Per Micro- Enterobacter aerogenes sensitive to merrem cont merrem Per ID: increase vanc to 1gm Q12H, FU vanc peak and trough on 3rd dose, cont diflucan Vanc trough 13.8- Vanco held, no peak done due to high trough Hypernatremia- resolved: Na 138- cont free water flushes Na 144- Cont free water flushes Na 142- WNL, will d/c IVF, cont free water flushes Na 147- WNL Na 152- continues to down trend Na 153- down trending Cont free water flushes 300cc Q8H Decreased 1/2NS@ 175 to 75cc/Hr- d/c'd Cont tube feeds Muscular deconditioning due to being bed bound PT Eval and treat Monitor tracheostomy site for drainage, erythema, hematoma, signs of infection. Prophylaxis: GI - Protonix 40 mg IVP daily DVT - contraindicated 2/2 to intracranial bleed Dispo: Con current mgmt Re-consulted GI for PEG tube placement Cont tube feeds ID following Pulm following Cont condom catheter Cont general body care SW eval for possible LTAC after PEG placement DW attending <Johny Saldana H - Last Filed: 11/14/16 16:06> Objective - Vital Signs/Intake and Output Vital Signs (last 24 hours): Temp Pulse Resp BP Pulse Ox 98.4 F 90 20 146/95 H 100 11/14/16 08:00 11/14/16 08:00 11/14/16 08:00 11/14/16 08:00 11/14/16 08:00 Intake and Output: 11/14/16 11/14/16 06:59 18:59 Intake Total 760 160 Output Total 500 Balance 260 160 - Medications Medications: Current Medications Acetaminophen (Tylenol 325mg Tab) 650 mg PO Q6 PRN PRN Reason: Fever >100.4 F Last Admin: 11/05/16 09:59 Dose: 650 mg Acetylcysteine (Acetylcysteine 20%) 4 ml INH Q6H [facility] Last Admin: 11/14/16 14:23 Dose: 4 ml Albuterol Sulfate (Albuterol 0.083% Inhal Kim (2.5 Mg/3 Ml) Ud) 2.5 mg INH RQ6 OMAR Last Admin: 11/14/16 14:23 Dose: 2.5 mg Amlodipine Besylate (Norvasc) 5 mg PO DAILY [facility] Last Admin: 11/14/16 10:00 Dose: 5 mg Meropenem 500 mg/ Sodium (Chloride) 100 mls @ 100 mls/hr IVPB Q8 [facility] Last Admin: 11/14/16 14:10 Dose: 100 mls/hr Fluconazole (Diflucan Iv 200 Mg/100 Ml Ns) 100 mls @ 100 mls/hr IVPB Q24H [facility] Last Admin: 11/13/16 20:00 Dose: 100 mls/hr Vancomycin/Sodium Chloride (Vancocin) 200 mls @ 133.333 mls/hr IVPB Q12H [facility] Stop: 11/18/16 03:01 Last Admin: 11/14/16 14:37 Dose: 133.333 mls/hr Pantoprazole Sodium (Protonix Ec Tab) 40 mg PO DAILY [facility] Last Admin: 11/14/16 10:00 Dose: 40 mg Saccharomyces Boulardii (Florastor) 250 mg PO BID [facility] Last Admin: 11/14/16 10:00 Dose: 250 mg - Labs Labs: 11/14/16 07:24 11/14/16 07:24 PT 15.0 SECONDS (9.7-12.2) H 10/31/16 06:21 INR 1.3 10/31/16 06:21 APTT 30 SECONDS (21-34) 10/28/16 05:59 Attending/Attestation - Attestation I have personally seen and examined this patient.: Yes I have fully participated in the care of the patient.: Yes I have reviewed all pertinent clinical information, including history, physical exam and plan: Yes Notes (Text): 11/14/16 16:04 Medical Attending: Patient was seen and examined by me. Agree with the above note by the resident. The patient WBC is now decreased, also has been afebrile at this time. Still has the OGT so will try to reach to GI to see if the PEG can be placed now thank you Johny Saldana
--- NOTE | 2016-11-14 11:37 | CP.PCM.PN ---
Subjective - Date & Time of Evaluation Date of Evaluation: 11/14/16 Time of Evaluation: 10:40 - Subjective Subjective: Pt was seen and examined at bedside today, pt was awake and alert breathing without ventilator assistance. Pt is nonverbal due to tracheostomy; ROS unobtainable. Pt was in no acute distress, no acute events reported overnight to nursing; nursing provided suction to remove secreations and is replacing dressings around tracheostomy site. Objective - Vital Signs/Intake and Output Vital Signs (last 24 hours): Temp Pulse Resp BP Pulse Ox 98.4 F 90 20 146/95 H 100 11/14/16 08:00 11/14/16 08:00 11/14/16 08:00 11/14/16 08:00 11/14/16 08:00 Intake and Output: 11/14/16 11/14/16 06:59 18:59 Intake Total 760 Output Total 500 Balance 260 - Medications Medications: Current Medications Acetaminophen (Tylenol 325mg Tab) 650 mg PO Q6 PRN PRN Reason: Fever >100.4 F Last Admin: 11/05/16 09:59 Dose: 650 mg Acetylcysteine (Acetylcysteine 20%) 4 ml INH Q6H [facility] Last Admin: 11/14/16 08:09 Dose: 4 ml Albuterol Sulfate (Albuterol 0.083% Inhal Kim (2.5 Mg/3 Ml) Ud) 2.5 mg INH RQ6 [facility] Last Admin: 11/14/16 08:09 Dose: 2.5 mg Amlodipine Besylate (Norvasc) 5 mg PO DAILY [facility] Last Admin: 11/13/16 11:14 Dose: 5 mg Meropenem 500 mg/ Sodium (Chloride) 100 mls @ 100 mls/hr IVPB Q8 [facility] Last Admin: 11/14/16 05:00 Dose: 100 mls/hr Fluconazole (Diflucan Iv 200 Mg/100 Ml Ns) 100 mls @ 100 mls/hr IVPB Q24H [facility] Last Admin: 11/13/16 20:00 Dose: 100 mls/hr Vancomycin/Sodium Chloride (Vancocin) 200 mls @ 133.333 mls/hr IVPB Q12H [facility] Stop: 11/18/16 03:01 Last Admin: 11/14/16 02:00 Dose: 133.333 mls/hr Pantoprazole Sodium (Protonix Ec Tab) 40 mg PO DAILY [facility] Saccharomyces Boulardii (Florastor) 250 mg PO BID [facility] Last Admin: 11/13/16 17:33 Dose: 250 mg - Labs Labs: 11/14/16 07:24 11/14/16 07:24 PT 15.0 SECONDS (9.7-12.2) H 10/31/16 06:21 INR 1.3 10/31/16 06:21 APTT 30 SECONDS (21-34) 10/28/16 05:59 - Constitutional Appears: Well, No Acute Distress - Head Exam Head Exam: ATRAUMATIC, NORMOCEPHALIC - Respiratory Exam Respiratory Exam: Clear to Ausculation Bilateral, NORMAL BREATHING PATTERN Additional comments: Tracheostomy with dressings CDI - Cardiovascular Exam Cardiovascular Exam: +S1, +S2. absent: Murmur - Neurological Exam Neurological Exam: Alert, Awake - Psychiatric Exam Psychiatric exam: Normal Affect, Normal Mood - Skin Skin Exam: Dry, Intact, Normal Color, Warm Assessment and Plan - Assessment and Plan (Free Text) Assessment: Respiratory Failure Plan: Respiratory Failure continue nebulizer treatments ventilator wean completed; will monitor vitals LTAC disposition not possible at this time due to lack of insurance/other documentation
[2016-11-14] MEDS: Fluconazole IV 200mg/100 ml NS 100 ML IVPB SCH (19:48)
[2016-11-15] MEDS: Vancomycin 1 gm/NS 200 ml 200 ML IVPB SCH ×2 (02:12→16:01)
[2016-11-15] MEDS: Meropenem 500 MG in Sodium Chloride 0.9% 100 ML IVPB SCH ×3 (05:52→21:38)
[2016-11-15 07:20] LABS: CHLORIDE 94 mmol/L (98-107)
[2016-11-15 07:21] LABS: POTASSIUM 3.8 mmol/L (3.6-5.2); SODIUM 137 mmol/L (132-148)
[2016-11-15 07:23] LABS: ALB/GLOB RATIO 0.8 (1.0-2.1); ALKALINE PHOSPHATASE 108 U/L (38-126); AST/SGOT 34 U/L (17-59); BILIRUBIN,TOTAL 0.7 mg/dL (0.2-1.3); BLOOD UREA NITROGEN 16 mg/dL (9-20); CARBON DIOXIDE 32 mmol/L (22-30); GFR AFRICAN-AMERICAN > 60; GLUCOSE,RANDOM 102 mg/dL (75-110); TOTAL PROTEIN 6.5 g/dL (6.3-8.3)
[2016-11-15 07:24] LABS: ALT/SGPT 49 U/L (21-72); CALCIUM 8.3 mg/dl (8.6-10.4); PHOSPHOROUS 2.8 mg/dL (2.5-4.5)
[2016-11-15 07:31] LABS: BASO % 0.3 % (0.0-2.0); EOS # 0.4 K/uL (0.0-0.7); EOS % 3.6 % (0.0-4.0); HEMATOCRIT 35.5 % (35.0-51.0); LYMPH # 1.3 K/uL (1.0-4.3); MEAN CELL VOLUME 82.6 fL (80.0-94.0); MEAN CORPUSCULAR HEMOGLOBIN 26.5 pg (27.0-31.0); MONO # 0.8 K/uL (0.0-0.8); MONO % 7.7 % (0.0-10.0); WHITE BLOOD COUNT 10.1 K/uL (4.8-10.8)
--- NOTE | 2016-11-15 07:58 | CP.PCM.PN ---
<King Elizabeth - Last Filed: 11/15/16 08:22> Subjective - Date & Time of Evaluation Date of Evaluation: 11/15/16 Time of Evaluation: 07:10 - Subjective Subjective: PGY4 GI Fellow Progress Note Patient seen and examined bedside this morning. We have been re-consulted on this patient for PEG evaluation. In short, this is a 56 year old male with PMHx significant for hypertension who was found unresponsive at home. Patient has since been diagnosed with hemorrhagic CVA and hypertensive emergency. Prior to this he was also being treated for pneumonia on broad spectrum antibiotics. His fever curve has improved significantly and he no longer has leukocytosis. Since our last visit he has also had interval placement of trach collar. The patient responds to some questions in Czech/Guinean. Following only certain commands. 12 system ROS cannot be completed given clinical condition. Objective - Vital Signs/Intake and Output Vital Signs (last 24 hours): Temp Pulse Resp BP Pulse Ox 98.3 F 84 20 142/83 100 11/15/16 00:10 11/15/16 00:10 11/15/16 00:10 11/15/16 00:10 11/15/16 00:10 Intake and Output: 11/15/16 11/15/16 06:59 18:59 Intake Total 660 630 Output Total 450 600 Balance 210 30 - Medications Medications: Current Medications Acetaminophen (Tylenol 325mg Tab) 650 mg PO Q6 PRN PRN Reason: Fever >100.4 F Last Admin: 11/05/16 09:59 Dose: 650 mg Acetylcysteine (Acetylcysteine 20%) 4 ml INH Q6H [facility] Last Admin: 11/14/16 19:48 Dose: 4 ml Albuterol Sulfate (Albuterol 0.083% Inhal Kim (2.5 Mg/3 Ml) Ud) 2.5 mg INH RQ6 [facility] Last Admin: 11/14/16 19:48 Dose: 2.5 mg Amlodipine Besylate (Norvasc) 5 mg PO DAILY [facility] Last Admin: 11/14/16 10:00 Dose: 5 mg Meropenem 500 mg/ Sodium (Chloride) 100 mls @ 100 mls/hr IVPB Q8 [facility] Last Admin: 11/15/16 05:52 Dose: 100 mls/hr Fluconazole (Diflucan Iv 200 Mg/100 Ml Ns) 100 mls @ 100 mls/hr IVPB Q24H [facility] Last Admin: 11/14/16 19:48 Dose: 100 mls/hr Vancomycin/Sodium Chloride (Vancocin) 200 mls @ 133.333 mls/hr IVPB Q12H [facility] Stop: 11/18/16 03:01 Last Admin: 11/15/16 02:12 Dose: 133.333 mls/hr Pantoprazole Sodium (Protonix Ec Tab) 40 mg PO DAILY [facility] Last Admin: 11/14/16 10:00 Dose: 40 mg Saccharomyces Boulardii (Florastor) 250 mg PO BID [facility] Last Admin: 11/14/16 18:37 Dose: 250 mg - Labs Labs: 11/15/16 07:00 11/15/16 07:00 PT 15.0 SECONDS (9.7-12.2) H 10/31/16 06:21 INR 1.3 10/31/16 06:21 APTT 30 SECONDS (21-34) 10/28/16 05:59 - Constitutional Appears: No Acute Distress - Eye Exam Eye Exam: PERRL - ENT Exam ENT Exam: Mucous Membranes Dry Additional comments: OGT in place, TF running at low rate - Respiratory Exam Respiratory Exam: Clear to Ausculation Bilateral. absent: Rales, Rhonchi, Wheezes Additional comments: trach collar noted - Cardiovascular Exam Cardiovascular Exam: RRR, +S1, +S2 - GI/Abdominal Exam GI & Abdominal Exam: Soft, Normal Bowel Sounds. absent: Distended, Firm, Guarding, Rigid, Tenderness, Organomegaly - Exam Additional comments: [place] catheter in place - Extremities Exam Extremities Exam: Normal Inspection. absent: Pedal Edema Additional comments: right hemiplegia - Neurological Exam Neurological Exam: Alert, Awake - Skin Skin Exam: Dry, Warm Assessment and Plan - Assessment and Plan (Free Text) Assessment: Patient is a 56yo male with PMHx significant for HTN who was found unresponsive and subsequently diagnosed with hemorrhagic CVA. -Hemorrhagic CVA -Respiratory failure 2/2 above requiring tracheostomy -Pneumonia, resolving -Dysphagia 2/2 above Plan: -Will discuss PEG placement with family -Plan for PEG placement tomorrow pending consent from family, will call today -NPO past midnight, please stop tube feeding this evening -Continue antibiotics as indicated -Would recommend elevating HOB when tube feeds running -Check PT/INR <Geo Farfan - Last Filed: 11/15/16 08:27> Objective - Vital Signs/Intake and Output Vital Signs (last 24 hours): Temp Pulse Resp BP Pulse Ox 98.3 F 84 20 142/83 100 11/15/16 00:10 11/15/16 00:10 11/15/16 00:10 11/15/16 00:10 11/15/16 00:10 Intake and Output: 11/15/16 11/15/16 06:59 18:59 Intake Total 660 630 Output Total 450 600 Balance 210 30 - Medications Medications: Current Medications Acetaminophen (Tylenol 325mg Tab) 650 mg PO Q6 PRN PRN Reason: Fever >100.4 F Last Admin: 11/05/16 09:59 Dose: 650 mg Acetylcysteine (Acetylcysteine 20%) 4 ml INH Q6H [facility] Last Admin: 11/15/16 08:15 Dose: 4 ml Albuterol Sulfate (Albuterol 0.083% Inhal Kim (2.5 Mg/3 Ml) Ud) 2.5 mg INH RQ6 [facility] Last Admin: 11/15/16 08:15 Dose: 2.5 mg Amlodipine Besylate (Norvasc) 5 mg PO DAILY [facility] Last Admin: 11/14/16 10:00 Dose: 5 mg Meropenem 500 mg/ Sodium (Chloride) 100 mls @ 100 mls/hr IVPB Q8 [facility] Last Admin: 11/15/16 05:52 Dose: 100 mls/hr Fluconazole (Diflucan Iv 200 Mg/100 Ml Ns) 100 mls @ 100 mls/hr IVPB Q24H [facility] Last Admin: 11/14/16 19:48 Dose: 100 mls/hr Vancomycin/Sodium Chloride (Vancocin) 200 mls @ 133.333 mls/hr IVPB Q12H [facility] Stop: 11/18/16 03:01 Last Admin: 11/15/16 02:12 Dose: 133.333 mls/hr Pantoprazole Sodium (Protonix Ec Tab) 40 mg PO DAILY [facility] Last Admin: 11/14/16 10:00 Dose: 40 mg Saccharomyces Boulardii (Florastor) 250 mg PO BID [facility] Last Admin: 11/14/16 18:37 Dose: 250 mg - Labs Labs: 11/15/16 07:00 11/15/16 07:00 PT 15.0 SECONDS (9.7-12.2) H 10/31/16 06:21 INR 1.3 10/31/16 06:21 APTT 30 SECONDS (21-34) 10/28/16 05:59 Attending/Attestation - Attestation I have personally seen and examined this patient.: Yes I have fully participated in the care of the patient.: Yes I have reviewed all pertinent clinical information, including history, physical exam and plan: Yes Notes (Text): 11/15/16 08:24 I have seen and examined patient with GI fellow. No acute events overnight. He is tolerating OGT feeding without difficulty. No reported abdominal pain, nausea, vomiting. Review of vitals from today are normal. HTN, complicated by hemorrhagic CVA with hemiparesis s/p tracheostomy Pneumonia - Continue with antibiotic therapy - OGT feeding as tolerated, recommend head of bed elevation during feeding particularly given ongoing therapy for pneumonia - Obtain INR - Will need to have detailed conversation with patient's family regarding risks/ benefits of procedure. Provided they agree, will tentatively plan for PEG placement tomorrow, NPO after midnight.
[2016-11-15] MEDS: Acetylcysteine 20% Inhal Soln (4ml) INH SCH ×3 (08:15→19:28)
[2016-11-15] MEDS: Albuterol 0.083% Inhal Sol (2.5 mg/3 mL) UD INH SCH ×3 (08:15→19:30)
--- NOTE | 2016-11-15 09:46 | CP.PCM.PN ---
<Marybel Taylor - Last Filed: 11/15/16 12:59> Subjective - Date & Time of Evaluation Date of Evaluation: 11/15/16 Time of Evaluation: 07:20 - Subjective Subjective: Internal medicine progress note for Hospitalist service- Marybel Taylor, PGY-1 Pt S & E at bedside. Pt without any acute event overnight as per nursing, follows minimal commands in Dominican- does not move Left side of body. Awake and alert. Objective - Vital Signs/Intake and Output Vital Signs (last 24 hours): Temp Pulse Resp BP Pulse Ox 97.7 F 84 20 134/88 99 11/15/16 07:00 11/15/16 08:21 11/15/16 07:00 11/15/16 07:00 11/15/16 07:00 Intake and Output: 11/15/16 11/15/16 06:59 18:59 Intake Total 660 630 Output Total 450 600 Balance 210 30 - Medications Medications: Current Medications Acetaminophen (Tylenol 325mg Tab) 650 mg PO Q6 PRN PRN Reason: Fever >100.4 F Last Admin: 11/05/16 09:59 Dose: 650 mg Acetylcysteine (Acetylcysteine 20%) 4 ml INH Q6H [facility] Last Admin: 11/15/16 08:15 Dose: 4 ml Albuterol Sulfate (Albuterol 0.083% Inhal Kim (2.5 Mg/3 Ml) Ud) 2.5 mg INH RQ6 [facility] Last Admin: 11/15/16 08:15 Dose: 2.5 mg Amlodipine Besylate (Norvasc) 5 mg PO DAILY [facility] Last Admin: 11/14/16 10:00 Dose: 5 mg Meropenem 500 mg/ Sodium (Chloride) 100 mls @ 100 mls/hr IVPB Q8 [facility] Last Admin: 11/15/16 05:52 Dose: 100 mls/hr Fluconazole (Diflucan Iv 200 Mg/100 Ml Ns) 100 mls @ 100 mls/hr IVPB Q24H [facility] Last Admin: 11/14/16 19:48 Dose: 100 mls/hr Vancomycin/Sodium Chloride (Vancocin) 200 mls @ 133.333 mls/hr IVPB Q12H [facility] Stop: 11/18/16 03:01 Last Admin: 11/15/16 02:12 Dose: 133.333 mls/hr Pantoprazole Sodium (Protonix Ec Tab) 40 mg PO DAILY [facility] Last Admin: 11/14/16 10:00 Dose: 40 mg Saccharomyces Boulardii (Florastor) 250 mg PO BID [facility] Last Admin: 11/14/16 18:37 Dose: 250 mg - Labs Labs: 11/15/16 07:00 11/15/16 07:00 PT 15.0 SECONDS (9.7-12.2) H 10/31/16 06:21 INR 1.3 10/31/16 06:21 APTT 30 SECONDS (21-34) 10/28/16 05:59 - Constitutional Appears: Non-toxic, No Acute Distress - Head Exam Head Exam: ATRAUMATIC, NORMAL INSPECTION, NORMOCEPHALIC - Eye Exam Eye Exam: EOMI, Normal appearance, PERRL Pupil Exam: NORMAL ACCOMODATION, PERRL - ENT Exam ENT Exam: Mucous Membranes Moist, Normal Exam Additional comments: Poor dentition - Neck Exam Neck Exam: absent: Full ROM Additional comments: Pt looks to right - Respiratory Exam Respiratory Exam: Clear to Ausculation Bilateral, NORMAL BREATHING PATTERN. absent: Rales, Rhonchi, Wheezes, Respiratory Distress Additional comments: ON trach collar - Cardiovascular Exam Cardiovascular Exam: REGULAR RHYTHM, +S1, +S2 - GI/Abdominal Exam GI & Abdominal Exam: Soft, Normal Bowel Sounds. absent: Tenderness - Extremities Exam Extremities Exam: absent: Full ROM (only moves right side), Pedal Edema, Tenderness - Neurological Exam Neurological Exam: Alert, Awake. 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 11/15: Stable, no changes, trach collar in place 11/14: trach collar in place 11/13: Pt still with secretions, respiratory informed and will address 11/11: Secretions continued, started duonebs and mucomyst, informed nursing to do trach care and suctioning 11/10: Pt with audible secretions on trach collar- nursing informed, OGT in place 11/09: Pt resting comfortably in bed, trach to trach collar- tolerating w/some secretions as per respiratory, OGT In place 11/08: Resting comfortably, trach in place, OGT in place, does not 11/07: Resting comfortably, trach in place 11/06: Trach in place, resting comfortably. Follows simple commands to protrude tongue and move L arm 11/05: did not follow simple commands 11/04: Continues to follows simple commands in Dominican Neurology consult - Dr. Simpson advise to schedule trach and PEG. Hold antiplatelets for 4-6 weeks and maintain blood pressure above 100 systolic. Sedation as needed 10/24 CT Head: little interval change in the size of left thalamic hemorrhage 2.4x2.9 cm with intraventricular extension of hemorrhage and mild obstructive hydrocephalus. 2 mm midline shift from left to right with no evidence of herniation. Near complete resolution of hemorrhage within 4th ventricle. 10/19 CT Head: little interval change in the known 2.0 x 2.7 acute hematoma in left thalamus with intra ventricular extension of hemorrhage. Interval mild worsening of obstructive hydrocephalus. 10/18 CT Head: Left basal ganglia acute hemorrhage, possibly hypertensive with associated intraventricular hemorrhage and mass effect upon the left lateral aspect of the 3rd ventricle with the tip shift of the 3rd ventricle towards the right side. No generalized midline shift. Air-fluid level in sphenoid sinus common nonspecific. Please correlate for concern regarding acute sinusitis. Mild involutional changes. GCS - 8T (E4 VT M4) [place] 10.0, 12% estimated non-operative mortality 11/03- CT brain w/o cont for re-evaluation of bleed w/findings of Interval decrease in size and density left basal ganglia hematoma however well- circumscribed peripheral rim of low-attenuation edema about the hematoma likely represent some combination of brain edema as well as of brain necrosis. Intraventricular hemorrhage has diminished. Ventricles have also decreased in size though the temporal horns and atria remain prominent compared to the compressed remaining ventricular system. There is persistent compression of the 3rd and left lateral ventricle Chronic white matter and basal nuclei ischemic changes. December 07- reassess pt need for anticoagulation with neurology HTN: 11/15: BP 142/83, cont Norvasc/monitor VS 11/14:BP 146/95, cont Norvasc 11/12: BP controlled 11/11: BP 134/91, started Norvasc 5mg Daily 11/10: BP 135/90, will d/c IVF 11/09: BP 169/94- same as previous 11/08: BP 148/95, slight elevated, but mostly WNL- continue to hold Hydralazine 11/06: BP elevated 161/99; continue to monitor 11/05: BP WNL Amlodipine 10 mg POQD Hydralazine 25 mg PO BID - currently being held- BP WNL Losartan 100 mg POQD Labetalol 200 mg PO Q12H Respiratory failure on trach collar /mechanical vent: 11/15: Pulm following- cont trach collar, pulm toilet 11/14: Still tolerating trach collar off vent, pulm following 11/13: Off of vent, tolerating well. 11/11: Pulm recs- Continue weaning with trials off vent, continue nebulizer treatments 11/10: On trach collar, pulm consulted for potential weaning, mucomyst ordered for secretions 11/08: Trial pt on trach collar w/o mech vent Pulm consulted for trach weaning protocol- Leo 11/08: Trial pt on trach collar w/o mech vent 11/07: Trach collar w/CPAP 11/06: Trach in place. On mech vent s/p tracheostomy Trach tube care CPAP ABG: -10/29 pH 7.46, CO 35, O2 90, HCO3 26.0 -10/28 pH 7.46, CO2 35, O2 73, HCO3 25.9 -10/27 pH 7.49, CO2 33, O2 74, HCO3 26.5 -15 pH 7.5, CO2 32, O2 91, HCO3 26.6 -10/24 pH 7.47, CO2 35, O2 119, HCO3 26.5 -12 pH 7.47, CO2 33, O2 66, HCO3 25.5 -11 pH 7.52, CO2 33, O2 57, HCO3 28.1 -10 pH 7.48, CO2 38, O2 79, HCO3 28.5 -9 pH 7.46, CO2 37, O2 187 HCO3 26.9 -8 pH 7.46, CO2 38, O2 214, HCO3 27.4 Imaging 11/08 CXR-Tracheostomy tube in place. Other lines and tubes in stable position. Mild patchy increased markings in the right infrahilar region. Biapical pleural thickening. 11/02/CXR - repeat CXR for replacement of OGT w/Support lines tubes - normally positioned No interval pathology noted 11/02 CXR - Interval improvement in the right lower lung since the previous study. Appropriate position of the right-sided PICC line with the tip is likely at the SVC right atrium junction 11/01 CXR - The in situ tracheostomy tube and NG tube positions are as before. Mild interval prominence of the right infrahilar bronchovascular markings either due to technique or subtle interval patchy infiltrate. Clinical follow- up recommended 10/31 CXR -In situ tracheostomy tube remains in good position. NGT w/tip overlying LUQ of the abdomen unchanged. Continued improvement right lung base. 10/28 CXR No focal airspace opacity 10/27 CXR No active disease 10/26 CXR - Mild venous congestion. Right hilar prominence 10/24 CXR Mild venous congestion. Mild right infrahilar prominence 10/23 CXR - Mild venous congestion. right hilar prominence. Biapical pleural thickening upper lobe granulomatous changes. lines and tubes in stable position. 10/22 CXR - Worsening consolidative changes to right mid to lower lung zone. lines and tubes in stable position. 10/20 CXR - Distal tip of an endotracheal tube terminates approximately 4.6 cm above the brisa. Left IJ approach Central venous catheter terminates at expected location of the left innominate vein. Nasogastric tube extends to expected location of the stomach 10/19 CXR New nasogastric tube extends to distal esophagus, above the diaphragm. Repositioning is advised. ET tube unchanged. No infiltrate. 10/18 CXR ET tube proximal to brisa, no acute pulmonary pathology official read pending Head of bed to 30* Keep O2 Sat >92% Dysphagia 11/15: PEG tube in AM per GI, told Tube feeds after MN- NPO and nursing order in 11/14: No residuals overnight, ok to increase rate to 30cc/hr, GI re-consulted for PEG tube placement 11/11: Pt w/10cc residuals- kept at rate of 20cc/hr, will consider increasing by 10cc tomorrow if no residuals 11/10: Tube feeds stable 11/09: Tube feeds at 30cc/hr, no reported residuals. Advance by 10cc per day until goal of 50cc. 11/08- OGT placed last night, position verified- ok to use OGT for tube feeds 11/07: NPO- no access to stomach 11/05: OGT removed due to possible contribution to fever/sepsis. Feeding tube via oropharynx replaced 11/02 after pt removed position verified by CXR Feeding tube via oropharynx replaced 11/01 Position verified by CXR NGT was advanced 10/20 - d/c'd Consulted GI- Dr. Renteria- PEG tube placement when not having fevers/ leukocytosis Anemia- resolving 11/15: H/H- 11.4/35.5, FU PT/INR/PTT 11/14: H/H - 11.3/35.2 11/11: H/H- 11.1/34.8 11/10: H/H- 11.5/36.1 11/09: H/H- 12.2/39.3 11/08: H/H- 10.4/33.5 11/07: H/H- 11.1/35.8 11/06: f/u H&H, monitor 11/05-11/06: H&H low, stable, continue to monitor H&H: 12.5/40.2- stable Intracranial bleed No coagulopathy Contraindication for anticoagulation Monitor Sepsis- resolving 11/15: Afebrile over last 24H, no leukocytosis- stable FU Vanc trough at 1pm 11/15 11/14: Afebrile over last 24H, no leukocytosis 11/13: Afebrile, labs stable 11/12: Afebrile overnight, f/u am labs 11/11: Afebrile over last 24H, WBC down trending, now 12.3 from 12.6, per ID: resume vancomcyin; trough 10-15; and monitor wbc count FU sputum cxr- talked to lab- results will be available on 11/12- so far only normal kalin growing FU vanc trough on 11/12 before 3rd dose 11/10: Afebrile over last 24H, WBC down trending, no w 12.6 from 14.1, Blood cx neg x 4 D, repeat urine cxr pos for yeast 11/09: Afebrile over last 24H, WBC increased from 11.9 to 14.1; Blood/urine/ sputum cxr sent Vanc trough 8.4 Urine cxr pos for yeast Diflucan 200mg Q24H ordered ID consulted for adjustement of antibiotics/antifungals- awaiting recs 11/08: Afebrile over last 24H, WBC 11.9, Bands 3 11/07: Afebrile over last 24H, WBC 16.3, Bands 6 Trach asp pos for Gram neg rods Blood cxr neg x 48H 11/06: Continue to monitor WBC 11/05: Leukocytosis 21.8 from 19.4, 16.7 - trending up 11/05: Vanc trough - 5.1 Afebrile over last 24H -Started Vanco 1gm Q24H vanco through 11/02 - 5.1 11/01- apr work up sent: blood cxr, urine cxr, CXR, C diff stool Blood cxr neg x 48H urine cxr neg Bandemia 5 10/31- Trach asp cx - normal kalin 10/31 - Urine ([place]) cxr neg 10/25 Sputum cx: Serratia marcescens and Enterobactor aerogenes 10/21 Sputum cx: Klebsiella pneumoniae Hold change of antibiotics. Fully aware of the low grade temperature, and increase in WBCs. Patient is hemodynamically stable. IV Cefepime 1 gram Q8H Acetaminophen 650 mg Q6 PRN for fever ID following- Kathy- continue Merrem and Vanco due to aspiration and pos Enterobacter Aerogenes Per Micro- Enterobacter aerogenes sensitive to merrem cont merrem Per ID: increase vanc to 1gm Q12H, FU vanc peak and trough on 3rd dose, cont diflucan Vanc trough 13.8- Vanco held, no peak done due to high trough Hypernatremia- resolved: Na 137- cont free water flushes, monitor Na 138- cont free water flushes Na 144- Cont free water flushes Na 142- WNL, will d/c IVF, cont free water flushes Na 147- WNL Na 152- continues to down trend Na 153- down trending Cont free water flushes 300cc Q8H Decreased 1/2NS@ 175 to 75cc/Hr- d/c'd Cont tube feeds Muscular deconditioning due to being bed bound PT Eval and treat Monitor tracheostomy site for drainage, erythema, hematoma, signs of infection. Prophylaxis: GI - Protonix 40 mg IVP daily DVT - contraindicated 2/ to intracranial bleed WIll re-asses VTE needs on 12/07 Dispo: Con current mgmt Cont tube feeds until MN tonight, then hold for PEG placement in AM ID following Pulm following Cont condom catheter Cont general body care SW eval for possible LTAC after PEG placement Per GI- PEG placement tomorrow pending family consent, NPO past MN - nursing notified, order in DW attending <Johny Saldana - Last Filed: 11/15/16 13:51> Objective - Vital Signs/Intake and Output Vital Signs (last 24 hours): Temp Pulse Resp BP Pulse Ox 97.7 F 84 20 134/88 99 11/15/16 07:00 11/15/16 08:21 11/15/16 07:00 11/15/16 07:00 11/15/16 07:00 Intake and Output: 11/15/16 11/15/16 06:59 18:59 Intake Total 660 630 Output Total 450 600 Balance 210 30 - Medications Medications: Current Medications Acetaminophen (Tylenol 325mg Tab) 650 mg PO Q6 PRN PRN Reason: Fever >100.4 F Last Admin: 11/15/16 10:23 Dose: 650 mg Acetylcysteine (Acetylcysteine 20%) 4 ml INH Q6H [facility] Last Admin: 11/15/16 08:15 Dose: 4 ml Albuterol Sulfate (Albuterol 0.083% Inhal Kim (2.5 Mg/3 Ml) Ud) 2.5 mg INH RQ6 [facility] Last Admin: 11/15/16 08:15 Dose: 2.5 mg Amlodipine Besylate (Norvasc) 5 mg PO DAILY [facility] Last Admin: 11/15/16 10:26 Dose: 5 mg Meropenem 500 mg/ Sodium (Chloride) 100 mls @ 100 mls/hr IVPB Q8 [facility] Last Admin: 11/15/16 05:52 Dose: 100 mls/hr Fluconazole (Diflucan Iv 200 Mg/100 Ml Ns) 100 mls @ 100 mls/hr IVPB Q24H [facility] Last Admin: 11/14/16 19:48 Dose: 100 mls/hr Vancomycin/Sodium Chloride (Vancocin) 200 mls @ 133.333 mls/hr IVPB Q12H [facility] Stop: 11/18/16 03:01 Last Admin: 11/15/16 02:12 Dose: 133.333 mls/hr Pantoprazole Sodium (Protonix Ec Tab) 40 mg PO DAILY [facility] Last Admin: 11/15/16 10:26 Dose: 40 mg Saccharomyces Boulardii (Florastor) 250 mg PO BID [facility] Last Admin: 11/15/16 10:22 Dose: 250 mg - Labs Labs: 11/15/16 07:00 11/15/16 07:00 PT 15.0 SECONDS (9.7-12.2) H 10/31/16 06:21 INR 1.3 10/31/16 06:21 APTT 30 SECONDS (21-34) 10/28/16 05:59 Attending/Attestation - Attestation I have personally seen and examined this patient.: Yes I have fully participated in the care of the patient.: Yes I have reviewed all pertinent clinical information, including history, physical exam and plan: Yes Notes (Text): 11/15/16 13:49 Medical Attending: Patient was seen and examined by me. Agree with the above note by the resident. The patient will hopefully get placement of PEG tube soon. WBC count is stable and he is afebrile. Mental status has not changed from before as mentioned in the note by the resident. He is not on a trach collar and breathing on his own. thank you Johny Saldana
[2016-11-15] MEDS: Saccharomyces Boulardi 250 mg Cap PO SCH ×2 (10:22→17:40)
[2016-11-15] MEDS: Pantoprazole 40 mg EC Tab PO SCH (10:26)
[2016-11-15 14:10] LABS: INR 1.2
--- NOTE | 2016-11-15 14:32 | CP.PCM.PN ---
Subjective - Date & Time of Evaluation Date of Evaluation: 11/15/16 Time of Evaluation: 13:40 - Subjective Subjective: Pt was seen and examined at bedside today, pt was awake and alert breathing without ventilator assistance. Pt is nonverbal due to tracheostomy; while the patient is limitedly able to respond to direction specific ROS unobtainable. Pt was in no acute distress, nursing reports low calcium ad albumin values with nutrition recommendations made to the medicine team; nursing is providing suction to remove secretions and is replacing dressings around tracheostomy site. Pt is scheduled for PEG placement. Objective - Vital Signs/Intake and Output Vital Signs (last 24 hours): Temp Pulse Resp BP Pulse Ox 97.7 F 84 20 134/88 99 11/15/16 07:00 11/15/16 08:21 11/15/16 07:00 11/15/16 07:00 11/15/16 07:00 Intake and Output: 11/15/16 11/15/16 06:59 18:59 Intake Total 660 630 Output Total 450 600 Balance 210 30 - Medications Medications: Current Medications Acetaminophen (Tylenol 325mg Tab) 650 mg PO Q6 PRN PRN Reason: Fever >100.4 F Last Admin: 11/15/16 10:23 Dose: 650 mg Acetylcysteine (Acetylcysteine 20%) 4 ml INH Q6H [facility] Last Admin: 11/15/16 14:11 Dose: 4 ml Albuterol Sulfate (Albuterol 0.083% Inhal Kim (2.5 Mg/3 Ml) Ud) 2.5 mg INH RQ6 [facility] Last Admin: 11/15/16 14:11 Dose: 2.5 mg Amlodipine Besylate (Norvasc) 5 mg PO DAILY [facility] Last Admin: 11/15/16 10:26 Dose: 5 mg Meropenem 500 mg/ Sodium (Chloride) 100 mls @ 100 mls/hr IVPB Q8 [facility] Last Admin: 11/15/16 13:50 Dose: 100 mls/hr Fluconazole (Diflucan Iv 200 Mg/100 Ml Ns) 100 mls @ 100 mls/hr IVPB Q24H [facility] Last Admin: 11/14/16 19:48 Dose: 100 mls/hr Vancomycin/Sodium Chloride (Vancocin) 200 mls @ 133.333 mls/hr IVPB Q12H [facility] Stop: 11/18/16 03:01 Last Admin: 11/15/16 02:12 Dose: 133.333 mls/hr Pantoprazole Sodium (Protonix Ec Tab) 40 mg PO DAILY [facility] Last Admin: 11/15/16 10:26 Dose: 40 mg Saccharomyces Boulardii (Florastor) 250 mg PO BID [facility] Last Admin: 11/15/16 10:22 Dose: 250 mg - Labs Labs: 11/15/16 07:00 11/15/16 07:00 PT 15.0 SECONDS (9.7-12.2) H 10/31/16 06:21 INR 1.3 10/31/16 06:21 APTT 30 SECONDS (21-34) 10/28/16 05:59 - Constitutional Appears: Well, No Acute Distress - Head Exam Head Exam: ATRAUMATIC, NORMOCEPHALIC - Respiratory Exam Respiratory Exam: Rhonchi, NORMAL BREATHING PATTERN. absent: Clear to Ausculation Bilateral - Cardiovascular Exam Cardiovascular Exam: +S1, +S2. absent: Murmur - Neurological Exam Neurological Exam: Alert, Awake, Oriented x3 - Psychiatric Exam Psychiatric exam: Normal Affect, Normal Mood - Skin Skin Exam: Dry, Intact, Normal Color, Warm Assessment and Plan - Assessment and Plan (Free Text) Assessment: Respiratory Failure Plan: Respiratory Failure Continue nebulizer treatments Ventilator wean completed LTAC disposition not possible at this time due to lack of insurance/other documentation PEG placement will be attempted with additional discharge management to follow Continue current management and follow-up as needed.
[2016-11-15] MEDS: Fluconazole IV 200mg/100 ml NS 100 ML IVPB SCH (20:48)
[2016-11-16] MEDS: Albuterol 0.083% Inhal Sol (2.5 mg/3 mL) UD INH SCH ×4 (02:38→20:20)
[2016-11-16] MEDS: Acetylcysteine 20% Inhal Soln (4ml) INH SCH ×4 (02:39→20:19)
[2016-11-16] MEDS: Vancomycin 1 gm/NS 200 ml 200 ML IVPB SCH ×2 (03:40→18:03)
[2016-11-16] MEDS: Meropenem 500 MG in Sodium Chloride 0.9% 100 ML IVPB SCH ×2 (05:46→13:46)
[2016-11-16 06:41] LABS: BASO % 0.3 % (0.0-2.0); EOS # 0.3 K/uL (0.0-0.7); EOS % 3.4 % (0.0-4.0); HEMATOCRIT 38.1 % (35.0-51.0); LYMPH # 1.1 K/uL (1.0-4.3); MEAN CELL VOLUME 81.6 fL (80.0-94.0); MEAN CORPUSCULAR HEMOGLOBIN 26.3 pg (27.0-31.0); MEAN CORPUSCULAR HGB CONC 32.3 g/dL (33.0-37.0); MEAN PLATELET VOLUME 8.9 fL (7.2-11.7); MONO # 0.7 K/uL (0.0-0.8); MONO % 8.2 % (0.0-10.0); RED CELL DISTRIBUTION WIDTH 14.1 % (11.5-14.5); WHITE BLOOD COUNT 8.9 K/uL (4.8-10.8)
[2016-11-16 06:55] LABS: CHLORIDE 93 mmol/L (98-107)
[2016-11-16 06:56] LABS: POTASSIUM 4.1 mmol/L (3.6-5.2); SODIUM 139 mmol/L (132-148)
[2016-11-16 06:58] LABS: ALB/GLOB RATIO 0.8 (1.0-2.1); CARBON DIOXIDE 32 mmol/L (22-30); GFR AFRICAN-AMERICAN > 60; TOTAL PROTEIN 7.1 g/dL (6.3-8.3)
[2016-11-16 06:59] LABS: ALKALINE PHOSPHATASE 114 U/L (38-126); ALT/SGPT 48 U/L (21-72); AST/SGOT 56 U/L (17-59); BLOOD UREA NITROGEN 16 mg/dL (9-20); CALCIUM 8.2 mg/dl (8.6-10.4); GLUCOSE,RANDOM 82 mg/dL (75-110); MAGNESIUM 1.9 mg/dL (1.6-2.3); PHOSPHOROUS 3.3 mg/dL (2.5-4.5)
[2016-11-16] MEDS: Pantoprazole 40 mg EC Tab PO SCH (10:00)
--- NOTE | 2016-11-16 10:27 | CP.PCM.PN ---
<Marybel Taylor - Last Filed: 11/16/16 10:24> Subjective - Date & Time of Evaluation Date of Evaluation: 11/16/16 Time of Evaluation: 10:15 - Subjective Subjective: Internal medicine progress note for Hospitalist service- Marybel Taylor, PGY-1 Pt S & E at bedside. No events overnight as per nursing- tube feeds held at NC for PEG placement today. Still follows minimal commands in Qatari- does not move Left side of body. Awake and alert Objective - Vital Signs/Intake and Output Vital Signs (last 24 hours): Temp Pulse Resp BP Pulse Ox 98.1 F 81 20 143/94 H 100 11/16/16 08:24 11/16/16 08:59 11/16/16 08:24 11/16/16 08:24 11/16/16 08:24 Intake and Output: 11/16/16 11/16/16 06:59 18:59 Intake Total 780 Output Total 750 Balance 30 - Medications Medications: Current Medications Acetaminophen (Tylenol 325mg Tab) 650 mg PO Q6 PRN PRN Reason: Fever >100.4 F Last Admin: 11/15/16 10:23 Dose: 650 mg Acetylcysteine (Acetylcysteine 20%) 4 ml INH Q6H [facility] Last Admin: 11/16/16 08:16 Dose: 4 ml Albuterol Sulfate (Albuterol 0.083% Inhal Kim (2.5 Mg/3 Ml) Ud) 2.5 mg INH RQ6 [facility] Last Admin: 11/16/16 08:16 Dose: 2.5 mg Amlodipine Besylate (Norvasc) 5 mg PO DAILY [facility] Last Admin: 11/15/16 10:26 Dose: 5 mg Meropenem 500 mg/ Sodium (Chloride) 100 mls @ 100 mls/hr IVPB Q8 [facility] Last Admin: 11/16/16 05:46 Dose: 100 mls/hr Fluconazole (Diflucan Iv 200 Mg/100 Ml Ns) 100 mls @ 100 mls/hr IVPB Q24H [facility] Last Admin: 11/15/16 20:48 Dose: 100 mls/hr Vancomycin/Sodium Chloride (Vancocin) 200 mls @ 133.333 mls/hr IVPB Q12H [facility] Stop: 11/18/16 03:01 Last Admin: 11/16/16 03:40 Dose: 133.333 mls/hr Pantoprazole Sodium (Protonix Ec Tab) 40 mg PO DAILY [facility] Last Admin: 11/15/16 10:26 Dose: 40 mg Saccharomyces Boulardii (Florastor) 250 mg PO BID [facility] Last Admin: 11/15/16 17:40 Dose: 250 mg - Labs Labs: 11/16/16 06:29 11/16/16 06:29 PT 12.9 SECONDS (9.7-12.2) H 11/15/16 13:58 INR 1.2 11/15/16 13:58 APTT 39 SECONDS (21-34) H 11/15/16 13:58 - Constitutional Appears: Non-toxic, No Acute Distress - Head Exam Head Exam: ATRAUMATIC, NORMAL INSPECTION, NORMOCEPHALIC - Eye Exam Eye Exam: EOMI, Normal appearance, PERRL Pupil Exam: NORMAL ACCOMODATION, PERRL - ENT Exam ENT Exam: Mucous Membranes Moist, Normal Exam - Neck Exam Neck Exam: absent: Full ROM (looks to right) Additional comments: On trach collar - Respiratory Exam Respiratory Exam: Clear to Ausculation Bilateral, NORMAL BREATHING PATTERN. absent: Rhonchi, Wheezes - Cardiovascular Exam Cardiovascular Exam: REGULAR RHYTHM, +S1, +S2 - GI/Abdominal Exam GI & Abdominal Exam: Soft, Normal Bowel Sounds. 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 11/16: Stable on trach collar, no changes 11/15: Stable, no changes, trach collar in place 11/14: trach collar in place 11/13: Pt still with secretions, respiratory informed and will address 11/11: Secretions continued, started duonebs and mucomyst, informed nursing to do trach care and suctioning 11/10: Pt with audible secretions on trach collar- nursing informed, OGT in place 11/09: Pt resting comfortably in bed, trach to trach collar- tolerating w/some secretions as per respiratory, OGT In place 11/08: Resting comfortably, trach in place, OGT in place, does not 11/07: Resting comfortably, trach in place 11/06: Trach in place, resting comfortably. Follows simple commands to protrude tongue and move L arm 11/05: did not follow simple commands 11/04: Continues to follows simple commands in Qatari Neurology consult - Dr. Simpson advise to schedule trach and PEG. Hold antiplatelets for 4-6 weeks and maintain blood pressure above 100 systolic. Sedation as needed 10/24 CT Head: little interval change in the size of left thalamic hemorrhage 2.4x2.9 cm with intraventricular extension of hemorrhage and mild obstructive hydrocephalus. 2 mm midline shift from left to right with no evidence of herniation. Near complete resolution of hemorrhage within 4th ventricle. 10/19 CT Head: little interval change in the known 2.0 x 2.7 acute hematoma in left thalamus with intra ventricular extension of hemorrhage. Interval mild worsening of obstructive hydrocephalus. 10/18 CT Head: Left basal ganglia acute hemorrhage, possibly hypertensive with associated intraventricular hemorrhage and mass effect upon the left lateral aspect of the 3rd ventricle with the tip shift of the 3rd ventricle towards the right side. No generalized midline shift. Air-fluid level in sphenoid sinus common nonspecific. Please correlate for concern regarding acute sinusitis. Mild involutional changes. GCS - 8T (E4 VT M4) [place] II 10.0, 12% estimated non-operative mortality 11/03- CT brain w/o cont for re-evaluation of bleed w/findings of Interval decrease in size and density left basal ganglia hematoma however well- circumscribed peripheral rim of low-attenuation edema about the hematoma likely represent some combination of brain edema as well as of brain necrosis. Intraventricular hemorrhage has diminished. Ventricles have also decreased in size though the temporal horns and atria remain prominent compared to the compressed remaining ventricular system. There is persistent compression of the 3rd and left lateral ventricle Chronic white matter and basal nuclei ischemic changes. December 07- reassess pt need for anticoagulation with neurology HTN: 11/16: BP 138/88,- cont Norvasc 11/15: BP 142/83, cont Norvasc/monitor VS 11/14:BP 146/95, cont Norvasc 11/12: BP controlled 11/11: BP 134/91, started Norvasc 5mg Daily 11/10: BP 135/90, will d/c IVF 11/09: BP 169/94- same as previous 11/08: BP 148/95, slight elevated, but mostly WNL- continue to hold Hydralazine 11/06: BP elevated 161/99; continue to monitor 11/05: BP WNL Amlodipine 10 mg POQD Hydralazine 25 mg PO BID - currently being held- BP WNL Losartan 100 mg POQD Labetalol 200 mg PO Q12H Respiratory failure on trach collar /mechanical vent: 11/16: Pulm following - pt on T tube for PEG 11/15: Pulm following- cont trach collar, pulm toilet 11/14: Still tolerating trach collar off vent, pulm following 11/13: Off of vent, tolerating well. 11/11: Pulm recs- Continue weaning with trials off vent, continue nebulizer treatments 11/10: On trach collar, pulm consulted for potential weaning, mucomyst ordered for secretions 11/08: Trial pt on trach collar w/o mech vent Pulm consulted for trach weaning protocol- Leo 11/08: Trial pt on trach collar w/o mech vent 11/07: Trach collar w/CPAP 11/06: Trach in place. On mech vent s/p tracheostomy Trach tube care CPAP ABG: -10/29 pH 7.46, CO 35, O2 90, HCO3 26.0 -10/28 pH 7.46, CO2 35, O2 73, HCO3 25.9 -10/27 pH 7.49, CO2 33, O2 74, HCO3 26.5 -15 pH 7.5, CO2 32, O2 91, HCO3 26.6 -10/24 pH 7.47, CO2 35, O2 119, HCO3 26.5 -10/23 pH 7.47, CO2 33, O2 66, HCO3 25.5 -11 pH 7.52, CO2 33, O2 57, HCO3 28.1 -10/21 pH 7.48, CO2 38, O2 79, HCO3 28.5 -10/20 pH 7.46, CO2 37, O2 187 HCO3 26.9 -8 pH 7.46, CO2 38, O2 214, HCO3 27.4 Imaging 11/08 CXR-Tracheostomy tube in place. Other lines and tubes in stable position. Mild patchy increased markings in the right infrahilar region. Biapical pleural thickening. 11/02/CXR - repeat CXR for replacement of OGT w/Support lines tubes - normally positioned No interval pathology noted 11/02 CXR - Interval improvement in the right lower lung since the previous study. Appropriate position of the right-sided PICC line with the tip is likely at the SVC right atrium junction 11/01 CXR - The in situ tracheostomy tube and NG tube positions are as before. Mild interval prominence of the right infrahilar bronchovascular markings either due to technique or subtle interval patchy infiltrate. Clinical follow- up recommended 10/31 CXR -In situ tracheostomy tube remains in good position. NGT w/tip overlying LUQ of the abdomen unchanged. Continued improvement right lung base. 10/28 CXR No focal airspace opacity 10/27 CXR No active disease 10/26 CXR - Mild venous congestion. Right hilar prominence 10/24 CXR Mild venous congestion. Mild right infrahilar prominence 10/23 CXR - Mild venous congestion. right hilar prominence. Biapical pleural thickening upper lobe granulomatous changes. lines and tubes in stable position. 10/22 CXR - Worsening consolidative changes to right mid to lower lung zone. lines and tubes in stable position. 10/20 CXR - Distal tip of an endotracheal tube terminates approximately 4.6 cm above the brisa. Left IJ approach Central venous catheter terminates at expected location of the left innominate vein. Nasogastric tube extends to expected location of the stomach 10/19 CXR New nasogastric tube extends to distal esophagus, above the diaphragm. Repositioning is advised. ET tube unchanged. No infiltrate. 10/18 CXR ET tube proximal to brisa, no acute pulmonary pathology official read pending Head of bed to 30* Keep O2 Sat >92% Dysphagia 11/16: PEG tube today, tube feeds held 11/15: PEG tube in AM per GI, told Tube feeds after MN- NPO and nursing order in 11/14: No residuals overnight, ok to increase rate to 30cc/hr, GI re-consulted for PEG tube placement 11/11: Pt w/10cc residuals- kept at rate of 20cc/hr, will consider increasing by 10cc tomorrow if no residuals 11/10: Tube feeds stable 11/09: Tube feeds at 30cc/hr, no reported residuals. Advance by 10cc per day until goal of 50cc. 11/08- OGT placed last night, position verified- ok to use OGT for tube feeds 11/07: NPO- no access to stomach 11/05: OGT removed due to possible contribution to fever/sepsis. Feeding tube via oropharynx replaced 11/02 after pt removed position verified by CXR Feeding tube via oropharynx replaced 11/01 Position verified by CXR NGT was advanced 10/20 - d/c'd Consulted GI- Dr. Renteria- PEG tube placement when not having fevers/ leukocytosis Anemia- resolving 11/16: H/H 12.2/38.1m PT 12.9, INR 1.2, PTT 39 11/15: H/H- 11.4/35.5, FU PT/INR/PTT 11/14: H/H - 11.3/35.2 11/11: H/H- 11.1/34.8 11/10: H/H- 11.5/36.1 11/09: H/H- 12.2/39.3 11/08: H/H- 10.4/33.5 11/07: H/H- 11.1/35.8 11/06: f/u H&H, monitor 11/05-11/06: H&H low, stable, continue to monitor H&H: 12.5/40.2- stable Intracranial bleed No coagulopathy Contraindication for anticoagulation Monitor Sepsis- resolving 11/16: Afebrile over last 24H, no leukocytosis- stable, no changes 11/15: Afebrile over last 24H, no leukocytosis- stable FU Vanc trough at 1pm 11/15 11/14: Afebrile over last 24H, no leukocytosis 11/13: Afebrile, labs stable 11/12: Afebrile overnight, f/u am labs 11/11: Afebrile over last 24H, WBC down trending, now 12.3 from 12.6, per ID: resume vancomcyin; trough 10-15; and monitor wbc count FU sputum cxr- talked to lab- results will be available on 11/12- so far only normal kalin growing FU vanc trough on 11/12 before 3rd dose 11/10: Afebrile over last 24H, WBC down trending, no w 12.6 from 14.1, Blood cx neg x 4 D, repeat urine cxr pos for yeast 11/09: Afebrile over last 24H, WBC increased from 11.9 to 14.1; Blood/urine/ sputum cxr sent Vanc trough 8.4 Urine cxr pos for yeast Diflucan 200mg Q24H ordered ID consulted for adjustement of antibiotics/antifungals- awaiting recs 11/08: Afebrile over last 24H, WBC 11.9, Bands 3 11/07: Afebrile over last 24H, WBC 16.3, Bands 6 Trach asp pos for Gram neg rods Blood cxr neg x 48H 11/06: Continue to monitor WBC 11/05: Leukocytosis 21.8 from 19.4, 16.7 - trending up 11/05: Vanc trough - 5.1 Afebrile over last 24H -Started Vanco 1gm Q24H vanco through 11/02 - 5.1 11/01- apr work up sent: blood cxr, urine cxr, CXR, C diff stool Blood cxr neg x 48H urine cxr neg Bandemia 5 10/31- Trach asp cx - normal kalin 10/31 - Urine ([place]) cxr neg 10/25 Sputum cx: Serratia marcescens and Enterobactor aerogenes 10/21 Sputum cx: Klebsiella pneumoniae Hold change of antibiotics. Fully aware of the low grade temperature, and increase in WBCs. Patient is hemodynamically stable. IV Cefepime 1 gram Q8H Acetaminophen 650 mg Q6 PRN for fever ID following- Kathy- continue Merrem and Vanco due to aspiration and pos Enterobacter Aerogenes Per Micro- Enterobacter aerogenes sensitive to merrem cont merrem Per ID: increase vanc to 1gm Q12H, FU vanc peak and trough on 3rd dose, cont diflucan Vanc trough 13.8- Vanco held, no peak done due to high trough Hypernatremia- resolved: Na 139- Cont the free water flushes, monitor Na 137- cont free water flushes, monitor Na 138- cont free water flushes Na 144- Cont free water flushes Na 142- WNL, will d/c IVF, cont free water flushes Na 147- WNL Na 152- continues to down trend Na 153- down trending Cont free water flushes 300cc Q8H Decreased 1/2NS@ 175 to 75cc/Hr- d/c'd Cont tube feeds Muscular deconditioning due to being bed bound PT Eval and treat Monitor tracheostomy site for drainage, erythema, hematoma, signs of infection. Prophylaxis: GI - Protonix 40 mg IVP daily DVT - contraindicated 09/15 to intracranial bleed WIll re-asses VTE needs on 12/07 Dispo: Con current mgmt ID following Pulm following Cont condom catheter Cont general body care SW eval for possible LTAC after PEG placement PEG tube with GI today DW attending <Johny Saldana H - Last Filed: 11/16/16 13:53> Objective - Vital Signs/Intake and Output Vital Signs (last 24 hours): Temp Pulse Resp BP Pulse Ox 98.1 F 81 20 143/94 H 100 11/16/16 13:15 11/16/16 13:15 11/16/16 13:15 11/16/16 13:15 11/16/16 13:15 Intake and Output: 11/16/16 11/16/16 06:59 18:59 Intake Total 780 0 Output Total 750 Balance 30 0 - Medications Medications: Current Medications Acetaminophen (Tylenol 325mg Tab) 650 mg PO Q6 PRN PRN Reason: Fever >100.4 F Last Admin: 11/15/16 10:23 Dose: 650 mg Acetylcysteine (Acetylcysteine 20%) 4 ml INH Q6H [facility] Last Admin: 11/16/16 08:16 Dose: 4 ml Albuterol Sulfate (Albuterol 0.083% Inhal Kim (2.5 Mg/3 Ml) Ud) 2.5 mg INH RQ6 [facility] Last Admin: 11/16/16 08:16 Dose: 2.5 mg Amlodipine Besylate (Norvasc) 5 mg PO DAILY [facility] Last Admin: 11/15/16 10:26 Dose: 5 mg Meropenem 500 mg/ Sodium (Chloride) 100 mls @ 100 mls/hr IVPB Q8 [facility] Last Admin: 11/16/16 05:46 Dose: 100 mls/hr Fluconazole (Diflucan Iv 200 Mg/100 Ml Ns) 100 mls @ 100 mls/hr IVPB Q24H [facility] Last Admin: 11/15/16 20:48 Dose: 100 mls/hr Vancomycin/Sodium Chloride (Vancocin) 200 mls @ 133.333 mls/hr IVPB Q12H [facility] Stop: 11/18/16 03:01 Last Admin: 11/16/16 03:40 Dose: 133.333 mls/hr Pantoprazole Sodium (Protonix Ec Tab) 40 mg PO DAILY [facility] Last Admin: 11/15/16 10:26 Dose: 40 mg Saccharomyces Boulardii (Florastor) 250 mg PO BID [facility] Last Admin: 11/15/16 17:40 Dose: 250 mg - Labs Labs: 11/16/16 06:29 11/16/16 06:29 PT 12.9 SECONDS (9.7-12.2) H 11/15/16 13:58 INR 1.2 11/15/16 13:58 APTT 39 SECONDS (21-34) H 11/15/16 13:58 Attending/Attestation - Attestation I have personally seen and examined this patient.: Yes I have fully participated in the care of the patient.: Yes I have reviewed all pertinent clinical information, including history, physical exam and plan: Yes Notes (Text): Medical Attending: Reviewed above by resident and agree, Patient is currently pending placement of PEG some time later today.
[2016-11-16] MEDS: Saccharomyces Boulardi 250 mg Cap PO SCH ×2 (11:45→18:03)
[2016-11-16] MEDS ORDERED: Propofol 10 mg/ml Inj (20 ML) ONE (13:05)
[2016-11-16] MEDS: Lactated Ringer's 1,000 ML IV SCH (14:48)
[2016-11-16] MEDS: Fluconazole IV 200mg/100 ml NS 100 ML IVPB SCH (20:00)
--- NOTE | 2016-11-16 21:12 | CP.PCM.PN ---
Subjective - Date & Time of Evaluation Date of Evaluation: 11/16/16 Time of Evaluation: 02:30 - Subjective Subjective: dictated Objective - Vital Signs/Intake and Output Vital Signs (last 24 hours): Temp Pulse Resp BP Pulse Ox 97.9 F 92 H 20 150/99 H 100 11/16/16 18:33 11/16/16 18:33 11/16/16 18:33 11/16/16 18:33 11/16/16 18:33 Intake and Output: 11/16/16 11/17/16 18:59 06:59 Intake Total 300 Balance 300 - Medications Medications: Current Medications Acetaminophen (Tylenol 325mg Tab) 650 mg PO Q6 PRN PRN Reason: Fever >100.4 F Last Admin: 11/15/16 10:23 Dose: 650 mg Acetylcysteine (Acetylcysteine 20%) 4 ml INH Q6H [facility] Last Admin: 11/16/16 20:19 Dose: 4 ml Albuterol Sulfate (Albuterol 0.083% Inhal Kim (2.5 Mg/3 Ml) Ud) 2.5 mg INH RQ6 [facility] Last Admin: 11/16/16 20:20 Dose: 2.5 mg Amlodipine Besylate (Norvasc) 5 mg PO DAILY [facility] Last Admin: 11/16/16 10:00 Dose: Not Given Meropenem 500 mg/ Sodium (Chloride) 100 mls @ 100 mls/hr IVPB Q8 [facility] Last Admin: 11/16/16 13:46 Dose: Not Given Fluconazole (Diflucan Iv 200 Mg/100 Ml Ns) 100 mls @ 100 mls/hr IVPB Q24H [facility] Last Admin: 11/15/16 20:48 Dose: 100 mls/hr Vancomycin/Sodium Chloride (Vancocin) 200 mls @ 133.333 mls/hr IVPB Q12H [facility] Stop: 11/18/16 03:01 Last Admin: 11/16/16 18:03 Dose: 133.333 mls/hr Lactated Ringer's (Lactated Ringer's) 1,000 mls @ 125 mls/hr IV .Q8H [facility] Last Admin: 11/16/16 14:48 Dose: 125 mls/hr Pantoprazole Sodium (Protonix Ec Tab) 40 mg PO DAILY [facility] Last Admin: 11/16/16 10:00 Dose: Not Given Saccharomyces Boulardii (Florastor) 250 mg PO BID [facility] Last Admin: 11/16/16 18:03 Dose: 250 mg - Labs Labs: 11/16/16 06:29 11/16/16 06:29 PT 12.9 SECONDS (9.7-12.2) H 11/15/16 13:58 INR 1.2 11/15/16 13:58 APTT 39 SECONDS (21-34) H 11/15/16 13:58
[2016-11-17] MEDS: Lactated Ringer's 1,000 ML IV SCH ×3 (01:00→22:07)
[2016-11-17] MEDS: Acetylcysteine 20% Inhal Soln (4ml) INH SCH ×4 (01:17→20:48)
[2016-11-17] MEDS: Albuterol 0.083% Inhal Sol (2.5 mg/3 mL) UD INH SCH ×4 (01:17→20:48)
[2016-11-17] MEDS: Vancomycin 1 gm/NS 200 ml 200 ML IVPB SCH ×2 (03:05→15:12)
[2016-11-17] MEDS: Meropenem 500 MG in Sodium Chloride 0.9% 100 ML IVPB SCH ×4 (05:37→22:07)
[2016-11-17 06:53] LABS: BASO % 0.6 % (0.0-2.0); EOS # 0.2 K/uL (0.0-0.7); HEMATOCRIT 36.5 % (35.0-51.0); LYMPH # 1.1 K/uL (1.0-4.3); LYMPH % 13.5 % (20.0-40.0); MEAN CELL VOLUME 81.6 fL (80.0-94.0); MEAN CORPUSCULAR HEMOGLOBIN 26.6 pg (27.0-31.0); MEAN CORPUSCULAR HGB CONC 32.6 g/dL (33.0-37.0); MEAN PLATELET VOLUME 9.2 fL (7.2-11.7); MONO # 0.6 K/uL (0.0-0.8); MONO % 7.5 % (0.0-10.0); RED CELL DISTRIBUTION WIDTH 13.7 % (11.5-14.5); WHITE BLOOD COUNT 8.1 K/uL (4.8-10.8)
--- NOTE | 2016-11-17 06:54 | CP.PCM.PN ---
<King Elizabeth - Last Filed: 11/17/16 07:57> Subjective - Date & Time of Evaluation Date of Evaluation: 11/17/16 Time of Evaluation: 06:20 - Subjective Subjective: PGY4 GI Fellow Progress Note Patient seen and examined bedside this morning. The patient makes eye contact and nods with some questions asked in Zambian. Denies any discomfort at this time. Tube feeds remain held as requested. 12 system ROS cannot be performed given clinical condition. Objective - Vital Signs/Intake and Output Vital Signs (last 24 hours): Temp Pulse Resp BP Pulse Ox 98.9 F 88 18 150/89 96 11/17/16 00:00 11/17/16 00:00 11/17/16 00:00 11/17/16 00:00 11/17/16 00:00 Intake and Output: 11/16/16 11/17/16 18:59 06:59 Intake Total 300 Balance 300 - Medications Medications: Current Medications Acetaminophen (Tylenol 325mg Tab) 650 mg PO Q6 PRN PRN Reason: Fever >100.4 F Last Admin: 11/15/16 10:23 Dose: 650 mg Acetylcysteine (Acetylcysteine 20%) 4 ml INH Q6H [facility] Last Admin: 11/17/16 01:17 Dose: 4 ml Albuterol Sulfate (Albuterol 0.083% Inhal Kim (2.5 Mg/3 Ml) Ud) 2.5 mg INH RQ6 OMAR Last Admin: 11/17/16 01:17 Dose: 2.5 mg Amlodipine Besylate (Norvasc) 5 mg PO DAILY [facility] Last Admin: 11/16/16 10:00 Dose: Not Given Meropenem 500 mg/ Sodium (Chloride) 100 mls @ 100 mls/hr IVPB Q8 O[facility] Last Admin: 11/17/16 05:37 Dose: 100 mls/hr Fluconazole (Diflucan Iv 200 Mg/100 Ml Ns) 100 mls @ 100 mls/hr IVPB Q24H [facility] Last Admin: 11/15/16 20:48 Dose: 100 mls/hr Vancomycin/Sodium Chloride (Vancocin) 200 mls @ 133.333 mls/hr IVPB Q12H [facility] Stop: 11/18/16 03:01 Last Admin: 11/17/16 03:05 Dose: 133.333 mls/hr Lactated Ringer's (Lactated Ringer's) 1,000 mls @ 125 mls/hr IV .Q8H [facility] Last Admin: 11/17/16 01:00 Dose: 125 mls/hr Pantoprazole Sodium (Protonix Ec Tab) 40 mg PO DAILY [facility] Last Admin: 11/16/16 10:00 Dose: Not Given Saccharomyces Boulardii (Florastor) 250 mg PO BID [facility] Last Admin: 11/16/16 18:03 Dose: 250 mg - Labs Labs: 11/16/16 06:29 11/16/16 06:29 PT 12.9 SECONDS (9.7-12.2) H 11/15/16 13:58 INR 1.2 11/15/16 13:58 APTT 39 SECONDS (21-34) H 11/15/16 13:58 - Constitutional Appears: No Acute Distress - Eye Exam Eye Exam: PERRL - ENT Exam ENT Exam: Mucous Membranes Dry - Respiratory Exam Respiratory Exam: Clear to Ausculation Bilateral. absent: Rales, Rhonchi, Wheezes - Cardiovascular Exam Cardiovascular Exam: RRR, +S1, +S2 - GI/Abdominal Exam GI & Abdominal Exam: Soft, Normal Bowel Sounds. absent: Distended, Firm, Guarding, Rigid, Tenderness, Organomegaly Additional comments: PEG site intact, clean and dry - no erythema or tenderness, bumper loosened to 3 - Extremities Exam Extremities Exam: Normal Inspection. absent: Pedal Edema Additional comments: right hemiplegia - Neurological Exam Neurological Exam: Alert, Awake Neuro motor strength exam: Right Upper Extremity: 0, Right Lower Extremity: 0 - Skin Skin Exam: Dry, Warm Assessment and Plan - Assessment and Plan (Free Text) Assessment: Patient is a 56yo male with PMHx significant for HTN who was found unresponsive and subsequently diagnosed with hemorrhagic CVA. -Hemorrhagic CVA -Respiratory failure 2/2 above requiring tracheostomy -Dysphagia 2/2 above Plan: -S/P successful PEG placement POD#1 -PEG site evaluated, no issues; bumper loosened to 3 -OK to use for meds/FWF now; start TF at noon -Continue antibiotics as indicated for resolving pneumonia per primary service -Recommend nutrition/scrap cutter eval for ongoing TF recommendations -Will sign off. Please reconsult if needed. Thank you for allowing us to participate in the care of your patient. <Geo Farfan Y - Last Filed: 11/17/16 08:53> Objective - Vital Signs/Intake and Output Vital Signs (last 24 hours): Temp Pulse Resp BP Pulse Ox 98.3 F 78 20 120/81 99 11/17/16 08:37 11/17/16 08:40 11/17/16 08:37 11/17/16 08:37 11/17/16 08:37 Intake and Output: 11/17/16 11/17/16 06:59 18:59 Intake Total 1350 Output Total 400 Balance 950 - Medications Medications: Current Medications Acetaminophen (Tylenol 325mg Tab) 650 mg PO Q6 PRN PRN Reason: Fever >100.4 F Last Admin: 11/15/16 10:23 Dose: 650 mg Acetylcysteine (Acetylcysteine 20%) 4 ml INH Q6H [facility] Last Admin: 11/17/16 07:42 Dose: 4 ml Albuterol Sulfate (Albuterol 0.083% Inhal Kim (2.5 Mg/3 Ml) Ud) 2.5 mg INH RQ6 OMAR Last Admin: 11/17/16 07:42 Dose: 2.5 mg Amlodipine Besylate (Norvasc) 5 mg PO DAILY [facility] Last Admin: 11/16/16 10:00 Dose: Not Given Meropenem 500 mg/ Sodium (Chloride) 100 mls @ 100 mls/hr IVPB Q8 [facility] Last Admin: 11/17/16 05:37 Dose: 100 mls/hr Fluconazole (Diflucan Iv 200 Mg/100 Ml Ns) 100 mls @ 100 mls/hr IVPB Q24H [facility] Last Admin: 11/15/16 20:48 Dose: 100 mls/hr Vancomycin/Sodium Chloride (Vancocin) 200 mls @ 133.333 mls/hr IVPB Q12H [facility] Stop: 11/18/16 03:01 Last Admin: 11/17/16 03:05 Dose: 133.333 mls/hr Lactated Ringer's (Lactated Ringer's) 1,000 mls @ 125 mls/hr IV .Q8H [facility] Last Admin: 11/17/16 06:09 Dose: Not Given Pantoprazole Sodium (Protonix Ec Tab) 40 mg PO DAILY [facility] Last Admin: 11/16/16 10:00 Dose: Not Given Saccharomyces Boulardii (Florastor) 250 mg PO BID [facility] Last Admin: 11/16/16 18:03 Dose: 250 mg - Labs Labs: 11/17/16 06:25 11/17/16 06:25 PT 12.9 SECONDS (9.7-12.2) H 11/15/16 13:58 INR 1.2 11/15/16 13:58 APTT 39 SECONDS (21-34) H 11/15/16 13:58 Attending/Attestation - Attestation I have personally seen and examined this patient.: Yes I have fully participated in the care of the patient.: Yes I have reviewed all pertinent clinical information, including history, physical exam and plan: Yes Notes (Text): 11/17/16 08:50 I have seen and examined patient with GI fellow. No acute events overnight, no reported abdominal pain, nausea, vomiting, fever/chills. S/p PEG placement yesterday. Bumper loosened to 3 cm from abdominal wall. Review of vitals from today are normal. HTN Hemorrhagic CVA with residual hemiparesis Respiratory failure s/p tracheostomy s/p PEG placement - May begin use of PEG for feeding purposes this afternoon, follow up dietary recommendations - Flush with 30 cc water q8h, monitor for residuals - Continue with antibiotic therapy as per medical team - No ongoing GI issues, will sign off case. Please reconsult as necessary, thank you.
[2016-11-17 06:56] LABS: CHLORIDE 98 mmol/L (98-107); POTASSIUM 4.3 mmol/L (3.6-5.2); SODIUM 137 mmol/L (132-148)
[2016-11-17 06:58] LABS: ALB/GLOB RATIO 0.8 (1.0-2.1); ALKALINE PHOSPHATASE 119 U/L (38-126); ALT/SGPT 41 U/L (21-72); AST/SGOT 31 U/L (17-59); BILIRUBIN,TOTAL 1.2 mg/dL (0.2-1.3); BLOOD UREA NITROGEN 19 mg/dL (9-20); CARBON DIOXIDE 26 mmol/L (22-30); GFR AFRICAN-AMERICAN > 60; TOTAL PROTEIN 7.3 g/dL (6.3-8.3)
[2016-11-17 06:59] LABS: CALCIUM 8.6 mg/dl (8.6-10.4); GLUCOSE,RANDOM 69 mg/dL (75-110); MAGNESIUM 1.8 mg/dL (1.6-2.3); PHOSPHOROUS 3.9 mg/dL (2.5-4.5)
[2016-11-17] MEDS: Saccharomyces Boulardi 250 mg Cap PO SCH ×2 (11:00→17:29)
[2016-11-17] MEDS: Pantoprazole 40 mg EC Tab PO SCH (11:00)
--- NOTE | 2016-11-17 11:10 | CP.PCM.PN ---
<Marybel Taylor - Last Filed: 11/17/16 11:12> Subjective - Date & Time of Evaluation Date of Evaluation: 11/17/16 Time of Evaluation: 06:20 - Subjective Subjective: Internal medicine progress note for Hospitalist service- Marybel Taylor, PGY-1 Pt S & E at bedside. Pt awake and alert, POD#1 s/p PEG tube placement, resting comfortably in bed. PEG tube ok'd for use as of noon on 11/17. Objective - Vital Signs/Intake and Output Vital Signs (last 24 hours): Temp Pulse Resp BP Pulse Ox 98.3 F 78 20 120/81 99 11/17/16 08:37 11/17/16 08:40 11/17/16 08:37 11/17/16 08:37 11/17/16 08:37 Intake and Output: 11/17/16 11/17/16 06:59 18:59 Intake Total 1350 Output Total 400 Balance 950 - Medications Medications: Current Medications Acetaminophen (Tylenol 325mg Tab) 650 mg PO Q6 PRN PRN Reason: Fever >100.4 F Last Admin: 11/15/16 10:23 Dose: 650 mg Acetylcysteine (Acetylcysteine 20%) 4 ml INH Q6H [facility] Last Admin: 11/17/16 07:42 Dose: 4 ml Albuterol Sulfate (Albuterol 0.083% Inhal Kim (2.5 Mg/3 Ml) Ud) 2.5 mg INH RQ6 OMAR Last Admin: 11/17/16 07:42 Dose: 2.5 mg Amlodipine Besylate (Norvasc) 5 mg PO DAILY [facility] Last Admin: 11/16/16 10:00 Dose: Not Given Meropenem 500 mg/ Sodium (Chloride) 100 mls @ 100 mls/hr IVPB Q8 [facility] Last Admin: 11/17/16 05:37 Dose: 100 mls/hr Fluconazole (Diflucan Iv 200 Mg/100 Ml Ns) 100 mls @ 100 mls/hr IVPB Q24H [facility] Last Admin: 11/15/16 20:48 Dose: 100 mls/hr Vancomycin/Sodium Chloride (Vancocin) 200 mls @ 133.333 mls/hr IVPB Q12H [facility] Stop: 11/18/16 03:01 Last Admin: 11/17/16 03:05 Dose: 133.333 mls/hr Lactated Ringer's (Lactated Ringer's) 1,000 mls @ 125 mls/hr IV .Q8H [facility] Last Admin: 11/17/16 06:09 Dose: Not Given Pantoprazole Sodium (Protonix Ec Tab) 40 mg PO DAILY [facility] Last Admin: 11/16/16 10:00 Dose: Not Given Saccharomyces Boulardii (Florastor) 250 mg PO BID [facility] Last Admin: 11/16/16 18:03 Dose: 250 mg - Labs Labs: 11/17/16 06:25 11/17/16 06:25 PT 12.9 SECONDS (9.7-12.2) H 11/15/16 13:58 INR 1.2 11/15/16 13:58 APTT 39 SECONDS (21-34) H 11/15/16 13:58 - Constitutional Appears: Non-toxic, No Acute Distress - Head Exam Head Exam: ATRAUMATIC, NORMAL INSPECTION, NORMOCEPHALIC - Eye Exam Eye Exam: EOMI, Normal appearance, PERRL Pupil Exam: NORMAL ACCOMODATION, PERRL - ENT Exam ENT Exam: Mucous Membranes Moist, Normal Exam Additional comments: poor dentition - Neck Exam Neck Exam: absent: Full ROM (looks to the left, can't move head to right) Additional comments: trach collar in place - Respiratory Exam Respiratory Exam: Clear to Ausculation Bilateral, NORMAL BREATHING PATTERN. absent: Rales, Rhonchi, Wheezes, Respiratory Distress, Stridor - Cardiovascular Exam Cardiovascular Exam: REGULAR RHYTHM, +S1, +S2 - GI/Abdominal Exam GI & Abdominal Exam: Soft, Normal Bowel Sounds. absent: Distended, Firm, Guarding, Rigid, Tenderness Additional comments: PEG tube in place over LUQ, dressing in place- C/D/I - Extremities Exam Extremities Exam: Normal Inspection. 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 4/6: On trach collar, stable, lots of secretions 4/5: Stable on trach collar, no changes 4/4: Stable, no changes, trach collar in place 11/14: trach collar in place 11/13: Pt still with secretions, respiratory informed and will address 11/11: Secretions continued, started duonebs and mucomyst, informed nursing to do trach care and suctioning 11/10: Pt with audible secretions on trach collar- nursing informed, OGT in place 11/09: Pt resting comfortably in bed, trach to trach collar- tolerating w/some secretions as per respiratory, OGT In place 11/08: Resting comfortably, trach in place, OGT in place, does not 11/07: Resting comfortably, trach in place 11/06: Trach in place, resting comfortably. Follows simple commands to protrude tongue and move L arm 11/05: did not follow simple commands 11/04: Continues to follows simple commands in Greek Neurology consult - Dr. Simpson advise to schedule trach and PEG. Hold antiplatelets for 4-6 weeks and maintain blood pressure above 100 systolic. Sedation as needed 10/24 CT Head: little interval change in the size of left thalamic hemorrhage 2.4x2.9 cm with intraventricular extension of hemorrhage and mild obstructive hydrocephalus. 2 mm midline shift from left to right with no evidence of herniation. Near complete resolution of hemorrhage within 4th ventricle. 10/19 CT Head: little interval change in the known 2.0 x 2.7 acute hematoma in left thalamus with intra ventricular extension of hemorrhage. Interval mild worsening of obstructive hydrocephalus. 10/18 CT Head: Left basal ganglia acute hemorrhage, possibly hypertensive with associated intraventricular hemorrhage and mass effect upon the left lateral aspect of the 3rd ventricle with the tip shift of the 3rd ventricle towards the right side. No generalized midline shift. Air-fluid level in sphenoid sinus common nonspecific. Please correlate for concern regarding acute sinusitis. Mild involutional changes. GCS - 8T (E4 VT M4) SAMISH II 10.0, 12% estimated non-operative mortality 11/03- CT brain w/o cont for re-evaluation of bleed w/findings of Interval decrease in size and density left basal ganglia hematoma however well- circumscribed peripheral rim of low-attenuation edema about the hematoma likely represent some combination of brain edema as well as of brain necrosis. Intraventricular hemorrhage has diminished. Ventricles have also decreased in size though the temporal horns and atria remain prominent compared to the compressed remaining ventricular system. There is persistent compression of the 3rd and left lateral ventricle Chronic white matter and basal nuclei ischemic changes. December 07- reassess pt need for anticoagulation with neurology HTN: 11/17: 150/89; cont Norvasc 11/16: BP 138/88,- cont Norvasc 11/15: BP 142/83, cont Norvasc/monitor VS 11/14:BP 146/95, cont Norvasc 11/12: BP controlled 11/11: BP 134/91, started Norvasc 5mg Daily 11/10: BP 135/90, will d/c IVF 11/09: BP 169/94- same as previous 11/08: BP 148/95, slight elevated, but mostly WNL- continue to hold Hydralazine 11/06: BP elevated 161/99; continue to monitor 11/05: BP WNL Amlodipine 10 mg POQD Hydralazine 25 mg PO BID - currently being held- BP WNL Losartan 100 mg POQD Labetalol 200 mg PO Q12H Respiratory failure on trach collar /mechanical vent: 11/17: Pulm following, pt on 30%FiO2 via trach collar- stable 11/16: Pulm following - pt on T tube for PEG 11/15: Pulm following- cont trach collar, pulm toilet 11/14: Still tolerating trach collar off vent, pulm following 11/13: Off of vent, tolerating well. 11/11: Pulm recs- Continue weaning with trials off vent, continue nebulizer treatments 11/10: On trach collar, pulm consulted for potential weaning, mucomyst ordered for secretions 11/08: Trial pt on trach collar w/o mech vent Pulm consulted for trach weaning protocol- Leo 11/08: Trial pt on trach collar w/o mech vent 11/07: Trach collar w/CPAP 11/06: Trach in place. On mech vent s/p tracheostomy Trach tube care CPAP ABG: -10/29 pH 7.46, CO 35, O2 90, HCO3 26.0 -10/28 pH 7.46, CO2 35, O2 73, HCO3 25.9 -10/27 pH 7.49, CO2 33, O2 74, HCO3 26.5 -10/26 pH 7.5, CO2 32, O2 91, HCO3 26.6 -10/24 pH 7.47, CO2 35, O2 119, HCO3 26.5 -10/23 pH 7.47, CO2 33, O2 66, HCO3 25.5 -10/22 pH 7.52, CO2 33, O2 57, HCO3 28.1 -10/21 pH 7.48, CO2 38, O2 79, HCO3 28.5 -10/20 pH 7.46, CO2 37, O2 187 HCO3 26.9 -10/19 pH 7.46, CO2 38, O2 214, HCO3 27.4 Imaging 11/08 CXR-Tracheostomy tube in place. Other lines and tubes in stable position. Mild patchy increased markings in the right infrahilar region. Biapical pleural thickening. 11/02/CXR - repeat CXR for replacement of OGT w/Support lines tubes - normally positioned No interval pathology noted 11/02 CXR - Interval improvement in the right lower lung since the previous study. Appropriate position of the right-sided PICC line with the tip is likely at the SVC right atrium junction 11/01 CXR - The in situ tracheostomy tube and NG tube positions are as before. Mild interval prominence of the right infrahilar bronchovascular markings either due to technique or subtle interval patchy infiltrate. Clinical follow- up recommended 10/31 CXR -In situ tracheostomy tube remains in good position. NGT w/tip overlying LUQ of the abdomen unchanged. Continued improvement right lung base. 10/28 CXR No focal airspace opacity 10/27 CXR No active disease 10/26 CXR - Mild venous congestion. Right hilar prominence 10/24 CXR Mild venous congestion. Mild right infrahilar prominence 10/23 CXR - Mild venous congestion. right hilar prominence. Biapical pleural thickening upper lobe granulomatous changes. lines and tubes in stable position. 10/22 CXR - Worsening consolidative changes to right mid to lower lung zone. lines and tubes in stable position. 10/20 CXR - Distal tip of an endotracheal tube terminates approximately 4.6 cm above the brisa. Left IJ approach Central venous catheter terminates at expected location of the left innominate vein. Nasogastric tube extends to expected location of the stomach 10/19 CXR New nasogastric tube extends to distal esophagus, above the diaphragm. Repositioning is advised. ET tube unchanged. No infiltrate. 10/18 CXR ET tube proximal to brisa, no acute pulmonary pathology official read pending Head of bed to 30* Keep O2 Sat >92% Dysphagia 11/17: PEG tube placed, tube feeds to start at noon, Dietary recs- Isosource 1.5, goal rate 50ml; Free water flushes 300cc Q8H 11/16: PEG tube today, tube feeds held 11/15: PEG tube in AM per GI, told Tube feeds after MN- NPO and nursing order in 11/14: No residuals overnight, ok to increase rate to 30cc/hr, GI re-consulted for PEG tube placement 11/11: Pt w/10cc residuals- kept at rate of 20cc/hr, will consider increasing by 10cc tomorrow if no residuals 11/10: Tube feeds stable 11/09: Tube feeds at 30cc/hr, no reported residuals. Advance by 10cc per day until goal of 50cc. 11/08- OGT placed last night, position verified- ok to use OGT for tube feeds 11/07: NPO- no access to stomach 11/05: OGT removed due to possible contribution to fever/sepsis. Feeding tube via oropharynx replaced 11/02 after pt removed position verified by CXR Feeding tube via oropharynx replaced 11/01 Position verified by CXR NGT was advanced 10/20 - d/c'd Consulted GI- Dr. Renteria- PEG tube placement when not having fevers/ leukocytosis Anemia- resolving 11/16: H/H 11.9/36.5 11/16: H/H 12.2/38.1; PT 12.9, INR 1.2, PTT 39 11/15: H/H- 11.4/35.5, FU PT/INR/PTT 11/14: H/H - 11.3/35.2 11/11: H/H- 11.1/34.8 11/10: H/H- 11.5/36.1 11/09: H/H- 12.2/39.3 11/08: H/H- 10.4/33.5 11/07: H/H- 11.1/35.8 11/06: f/u H&H, monitor 11/05-11/06: H&H low, stable, continue to monitor H&H: 12.5/40.2- stable Intracranial bleed No coagulopathy Contraindication for anticoagulation Monitor Sepsis- resolving 11/17: Afebrile over last 24H, no leukocytosis- stable, no changes 11/16: Afebrile over last 24H, no leukocytosis- stable, no changes 11/15: Afebrile over last 24H, no leukocytosis- stable FU Vanc trough at 1pm 11/15 11/14: Afebrile over last 24H, no leukocytosis 11/13: Afebrile, labs stable 11/12: Afebrile overnight, f/u am labs 11/11: Afebrile over last 24H, WBC down trending, now 12.3 from 12.6, per ID: resume vancomcyin; trough 10-15; and monitor wbc count FU sputum cxr- talked to lab- results will be available on 11/12- so far only normal kalin growing FU vanc trough on 11/12 before 3rd dose 11/10: Afebrile over last 24H, WBC down trending, no w 12.6 from 14.1, Blood cx neg x 4 D, repeat urine cxr pos for yeast 11/09: Afebrile over last 24H, WBC increased from 11.9 to 14.1; Blood/urine/ sputum cxr sent Vanc trough 8.4 Urine cxr pos for yeast Diflucan 200mg Q24H ordered ID consulted for adjustement of antibiotics/antifungals- awaiting recs 11/08: Afebrile over last 24H, WBC 11.9, Bands 3 11/07: Afebrile over last 24H, WBC 16.3, Bands 6 Trach asp pos for Gram neg rods Blood cxr neg x 48H 11/06: Continue to monitor WBC 11/05: Leukocytosis 21.8 from 19.4, 16.7 - trending up 11/05: Vanc trough - 5.1 Afebrile over last 24H -Started Vanco 1gm Q24H vanco through 11/02 - 5.1 11/01- apr work up sent: blood cxr, urine cxr, CXR, C diff stool Blood cxr neg x 48H urine cxr neg Bandemia 5 10/31- Trach asp cx - normal kalin 10/31 - Urine ([place]) cxr neg 10/25 Sputum cx: Serratia marcescens and Enterobactor aerogenes 10/21 Sputum cx: Klebsiella pneumoniae Hold change of antibiotics. Fully aware of the low grade temperature, and increase in WBCs. Patient is hemodynamically stable. IV Cefepime 1 gram Q8H Acetaminophen 650 mg Q6 PRN for fever ID following- Kathy- continue Merrem and Vanco due to aspiration and pos Enterobacter Aerogenes Per Micro- Enterobacter aerogenes sensitive to merrem cont merrem Per ID: increase vanc to 1gm Q12H, FU vanc peak and trough on 3rd dose, cont diflucan Vanc trough 13.8- Vanco held, no peak done due to high trough Muscular deconditioning due to being bed bound PT Eval and treat Monitor tracheostomy site for drainage, erythema, hematoma, signs of infection. Prophylaxis: GI - Protonix 40 mg IVP daily DVT - contraindicated 09/15 to intracranial bleed WIll re-asses VTE needs on 12/07 Dispo: Con current mgmt ID following Pulm following Cont condom catheter Cont general body care SW eval for possible LTAC after PEG placement PEG tube placed Labs Q3days DW attending <Johny Saldana - Last Filed: 11/17/16 15:29> Objective - Vital Signs/Intake and Output Vital Signs (last 24 hours): Temp Pulse Resp BP Pulse Ox 98.3 F 78 20 120/81 99 11/17/16 08:37 11/17/16 08:40 11/17/16 08:37 11/17/16 08:37 11/17/16 08:37 Intake and Output: 11/17/16 11/17/16 06:59 18:59 Intake Total 1350 Output Total 1100 Balance 250 - Medications Medications: Current Medications Acetaminophen (Tylenol 325mg Tab) 650 mg PO Q6 PRN PRN Reason: Fever >100.4 F Last Admin: 11/15/16 10:23 Dose: 650 mg Acetylcysteine (Acetylcysteine 20%) 4 ml INH Q6H [facility] Last Admin: 11/17/16 13:31 Dose: 4 ml Albuterol Sulfate (Albuterol 0.083% Inhal Kim (2.5 Mg/3 Ml) Ud) 2.5 mg INH RQ6 OMAR Last Admin: 11/17/16 13:31 Dose: 2.5 mg Amlodipine Besylate (Norvasc) 5 mg PO DAILY [facility] Last Admin: 11/17/16 11:00 Dose: 5 mg Meropenem 500 mg/ Sodium (Chloride) 100 mls @ 100 mls/hr IVPB Q8 [facility] Last Admin: 11/17/16 14:00 Dose: 100 mls/hr Fluconazole (Diflucan Iv 200 Mg/100 Ml Ns) 100 mls @ 100 mls/hr IVPB Q24H [facility] Last Admin: 11/15/16 20:48 Dose: 100 mls/hr Vancomycin/Sodium Chloride (Vancocin) 200 mls @ 133.333 mls/hr IVPB Q12H [facility] Stop: 11/18/16 03:01 Last Admin: 11/17/16 15:12 Dose: 133.333 mls/hr Pantoprazole Sodium (Protonix Ec Tab) 40 mg PO DAILY [facility] Last Admin: 11/17/16 11:00 Dose: 40 mg Saccharomyces Boulardii (Florastor) 250 mg PO BID [facility] Last Admin: 11/17/16 11:00 Dose: 250 mg - Labs Labs: 11/17/16 06:25 11/17/16 06:25 PT 12.9 SECONDS (9.7-12.2) H 11/15/16 13:58 INR 1.2 11/15/16 13:58 APTT 39 SECONDS (21-34) H 11/15/16 13:58 Attending/Attestation - Attestation I have personally seen and examined this patient.: Yes I have fully participated in the care of the patient.: Yes I have reviewed all pertinent clinical information, including history, physical exam and plan: Yes Notes (Text): 11/17/16 15:28 Medical Attending: Patient was seen and examined by me. Agree with the above note by the resident. The patient as mentioned before was able to move hands minimally. He is S/P pegtube placement, the tube feed were started at a slow rate and will be increased over time. Currently the lab work is stable, WBC is decreased, and he does not have a fever thank you Johny Saldana
[2016-11-17] MEDS: Fluconazole IV 200mg/100 ml NS 100 ML IVPB SCH (20:36)
[2016-11-18] MEDS: Albuterol 0.083% Inhal Sol (2.5 mg/3 mL) UD INH SCH ×4 (01:13→19:10)
[2016-11-18] MEDS: Acetylcysteine 20% Inhal Soln (4ml) INH SCH ×4 (01:13→19:10)
[2016-11-18] MEDS: Vancomycin 1 gm/NS 200 ml 200 ML IVPB SCH (03:06)
[2016-11-18] MEDS: Meropenem 500 MG in Sodium Chloride 0.9% 100 ML IVPB SCH ×3 (06:04→21:08)
--- NOTE | 2016-11-18 06:15 | CP.PCM.PN ---
<Marybel Taylor - Last Filed: 11/18/16 14:59> Subjective - Date & Time of Evaluation Date of Evaluation: 11/18/16 Time of Evaluation: 06:12 - Subjective Subjective: Internal medicine progress note for Hospitalist service- Marybel Taylor, PGY-1 Pt S & E at bedside. Pt resting comfortably in bed, no events over night per nursing- no residuals. Tube feeds will be increased to 30cc/hr today. Objective - Vital Signs/Intake and Output Vital Signs (last 24 hours): Temp Pulse Resp BP Pulse Ox 98.3 F 74 20 145/89 100 11/18/16 00:00 11/18/16 00:00 11/18/16 00:00 11/18/16 00:00 11/18/16 00:00 Intake and Output: 11/17/16 11/18/16 18:59 06:59 Intake Total 1350 540 Output Total 1100 1300 Balance 250 -760 - Medications Medications: Current Medications Acetaminophen (Tylenol 325mg Tab) 650 mg PO Q6 PRN PRN Reason: Fever >100.4 F Last Admin: 11/15/16 10:23 Dose: 650 mg Acetylcysteine (Acetylcysteine 20%) 4 ml INH Q6H OMAR Last Admin: 11/18/16 01:13 Dose: 4 ml Albuterol Sulfate (Albuterol 0.083% Inhal Kim (2.5 Mg/3 Ml) Ud) 2.5 mg INH RQ6 OMAR Last Admin: 11/18/16 01:13 Dose: 2.5 mg Amlodipine Besylate (Norvasc) 5 mg PO DAILY OMAR Last Admin: 11/17/16 11:00 Dose: 5 mg Meropenem 500 mg/ Sodium (Chloride) 100 mls @ 100 mls/hr IVPB Q8 OMAR Last Admin: 11/18/16 06:04 Dose: 100 mls/hr Fluconazole (Diflucan Iv 200 Mg/100 Ml Ns) 100 mls @ 100 mls/hr IVPB Q24H OMAR Last Admin: 11/17/16 20:36 Dose: 100 mls/hr Pantoprazole Sodium (Protonix Ec Tab) 40 mg PO DAILY OMAR Last Admin: 11/17/16 11:00 Dose: 40 mg Saccharomyces Boulardii (Florastor) 250 mg PO BID OMAR Last Admin: 11/17/16 17:29 Dose: 250 mg - Labs Labs: 11/17/16 06:25 11/17/16 06:25 PT 12.9 SECONDS (9.7-12.2) H 11/15/16 13:58 INR 1.2 11/15/16 13:58 APTT 39 SECONDS (21-34) H 11/15/16 13:58 - Constitutional Appears: Non-toxic, No Acute Distress - Head Exam Head Exam: ATRAUMATIC, NORMAL INSPECTION, NORMOCEPHALIC - Eye Exam Eye Exam: EOMI, Normal appearance, PERRL Pupil Exam: NORMAL ACCOMODATION, PERRL - ENT Exam ENT Exam: Mucous Membranes Moist, Normal Exam - Neck Exam Neck Exam: absent: Full ROM (looks to left, can't move head to right) Additional comments: trach collar in place, some secretions noted - Respiratory Exam Respiratory Exam: Clear to Ausculation Bilateral, NORMAL BREATHING PATTERN. absent: Rales, Rhonchi, Wheezes - Cardiovascular Exam Cardiovascular Exam: REGULAR RHYTHM, +S1, +S2 - GI/Abdominal Exam GI & Abdominal Exam: Soft, Normal Bowel Sounds. absent: Tenderness Additional comments: PEG tube in place, dressing - C/D/I - Extremities Exam Extremities Exam: Normal Inspection. absent: Full ROM (can't move right side of body), Pedal Edema - Neurological Exam Neurological Exam: Alert. 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 11/18: Trach collar in place, stable 11/17: On trach collar, stable, lots of secretions 11/16: Stable on trach collar, no changes 11/15: Stable, no changes, trach collar in place 11/14: trach collar in place 11/13: Pt still with secretions, respiratory informed and will address 11/11: Secretions continued, started duonebs and mucomyst, informed nursing to do trach care and suctioning 11/10: Pt with audible secretions on trach collar- nursing informed, OGT in place 11/09: Pt resting comfortably in bed, trach to trach collar- tolerating w/some secretions as per respiratory, OGT In place 11/08: Resting comfortably, trach in place, OGT in place, does not 11/07: Resting comfortably, trach in place 11/06: Trach in place, resting comfortably. Follows simple commands to protrude tongue and move L arm 11/05: did not follow simple commands 11/04: Continues to follows simple commands in [place] Neurology consult - Dr. Smipson advise to schedule trach and PEG. Hold antiplatelets for 4-6 weeks and maintain blood pressure above 100 systolic. Sedation as needed 10/24 CT Head: little interval change in the size of left thalamic hemorrhage 2.4x2.9 cm with intraventricular extension of hemorrhage and mild obstructive hydrocephalus. 2 mm midline shift from left to right with no evidence of herniation. Near complete resolution of hemorrhage within 4th ventricle. 10/19 CT Head: little interval change in the known 2.0 x 2.7 acute hematoma in left thalamus with intra ventricular extension of hemorrhage. Interval mild worsening of obstructive hydrocephalus. 10/18 CT Head: Left basal ganglia acute hemorrhage, possibly hypertensive with associated intraventricular hemorrhage and mass effect upon the left lateral aspect of the 3rd ventricle with the tip shift of the 3rd ventricle towards the right side. No generalized midline shift. Air-fluid level in sphenoid sinus common nonspecific. Please correlate for concern regarding acute sinusitis. Mild involutional changes. GCS - 8T (E4 VT M4) IGIUGIG II 10.0, 12% estimated non-operative mortality 11/03- CT brain w/o cont for re-evaluation of bleed w/findings of Interval decrease in size and density left basal ganglia hematoma however well- circumscribed peripheral rim of low-attenuation edema about the hematoma likely represent some combination of brain edema as well as of brain necrosis. Intraventricular hemorrhage has diminished. Ventricles have also decreased in size though the temporal horns and atria remain prominent compared to the compressed remaining ventricular system. There is persistent compression of the 3rd and left lateral ventricle Chronic white matter and basal nuclei ischemic changes. December 07- reassess pt need for anticoagulation with neurology HTN: 11/18: BP 145/89; Cont Norvasc 11/17: 150/89; cont Norvasc 11/16: BP 138/88,- cont Norvasc 11/15: BP 142/83, cont Norvasc/monitor VS 11/14:BP 146/95, cont Norvasc 11/12: BP controlled 11/11: BP 134/91, started Norvasc 5mg Daily 11/10: BP 135/90, will d/c IVF 11/09: BP 169/94- same as previous 11/08: BP 148/95, slight elevated, but mostly WNL- continue to hold Hydralazine 11/06: BP elevated 161/99; continue to monitor 11/05: BP WNL Amlodipine 10 mg POQD Hydralazine 25 mg PO BID - currently being held- BP WNL Losartan 100 mg POQD Labetalol 200 mg PO Q12H Respiratory failure on trach collar /mechanical vent: 11/18: Trach collar at 30% FiO2, pulm following 11/17: Pulm following, pt on 30%FiO2 via trach collar- stable 11/16: Pulm following - pt on T tube for PEG 11/15: Pulm following- cont trach collar, pulm toilet 11/14: Still tolerating trach collar off vent, pulm following 11/13: Off of vent, tolerating well. 11/11: Pulm recs- Continue weaning with trials off vent, continue nebulizer treatments 11/10: On trach collar, pulm consulted for potential weaning, mucomyst ordered for secretions 11/08: Trial pt on trach collar w/o mech vent Pulm consulted for trach weaning protocol- Leo 11/08: Trial pt on trach collar w/o mech vent 11/07: Trach collar w/CPAP 11/06: Trach in place. On mech vent s/p tracheostomy Trach tube care CPAP ABG: -10/29 pH 7.46, CO 35, O2 90, HCO3 26.0 -10/28 pH 7.46, CO2 35, O2 73, HCO3 25.9 -16 pH 7.49, CO2 33, O2 74, HCO3 26.5 -15 pH 7.5, CO2 32, O2 91, HCO3 26.6 -10/24 pH 7.47, CO2 35, O2 119, HCO3 26.5 -10/23 pH 7.47, CO2 33, O2 66, HCO3 25.5 -11 pH 7.52, CO2 33, O2 57, HCO3 28.1 -10 pH 7.48, CO2 38, O2 79, HCO3 28.5 -10/20 pH 7.46, CO2 37, O2 187 HCO3 26.9 -3/8 pH 7.46, CO2 38, O2 214, HCO3 27.4 Imaging 11/08 CXR-Tracheostomy tube in place. Other lines and tubes in stable position. Mild patchy increased markings in the right infrahilar region. Biapical pleural thickening. 11/02/CXR - repeat CXR for replacement of OGT w/Support lines tubes - normally positioned No interval pathology noted 11/02 CXR - Interval improvement in the right lower lung since the previous study. Appropriate position of the right-sided PICC line with the tip is likely at the SVC right atrium junction 11/01 CXR - The in situ tracheostomy tube and NG tube positions are as before. Mild interval prominence of the right infrahilar bronchovascular markings either due to technique or subtle interval patchy infiltrate. Clinical follow- up recommended 10/31 CXR -In situ tracheostomy tube remains in good position. NGT w/tip overlying LUQ of the abdomen unchanged. Continued improvement right lung base. 10/28 CXR No focal airspace opacity 10/27 CXR No active disease 10/26 CXR - Mild venous congestion. Right hilar prominence 10/24 CXR Mild venous congestion. Mild right infrahilar prominence 10/23 CXR - Mild venous congestion. right hilar prominence. Biapical pleural thickening upper lobe granulomatous changes. lines and tubes in stable position. 10/22 CXR - Worsening consolidative changes to right mid to lower lung zone. lines and tubes in stable position. 10/20 CXR - Distal tip of an endotracheal tube terminates approximately 4.6 cm above the brisa. Left IJ approach Central venous catheter terminates at expected location of the left innominate vein. Nasogastric tube extends to expected location of the stomach 10/19 CXR New nasogastric tube extends to distal esophagus, above the diaphragm. Repositioning is advised. ET tube unchanged. No infiltrate. 10/18 CXR ET tube proximal to brisa, no acute pulmonary pathology official read pending Head of bed to 30* Keep O2 Sat >92% Dysphagia 11/18: Tube feeds to 30cc today, keep free water flushes 11/17: PEG tube placed, tube feeds to start at noon, Dietary recs- Isosource 1.5, goal rate 50ml; Free water flushes 300cc Q8H 11/16: PEG tube today, tube feeds held 11/15: PEG tube in AM per GI, told Tube feeds after MN- NPO and nursing order in 11/14: No residuals overnight, ok to increase rate to 30cc/hr, GI re-consulted for PEG tube placement 11/11: Pt w/10cc residuals- kept at rate of 20cc/hr, will consider increasing by 10cc tomorrow if no residuals 11/10: Tube feeds stable 11/09: Tube feeds at 30cc/hr, no reported residuals. Advance by 10cc per day until goal of 50cc. 11/08- OGT placed last night, position verified- ok to use OGT for tube feeds 11/07: NPO- no access to stomach 11/05: OGT removed due to possible contribution to fever/sepsis. Feeding tube via oropharynx replaced 11/02 after pt removed position verified by CXR Feeding tube via oropharynx replaced 11/01 Position verified by CXR NGT was advanced 10/20 - d/c'd Consulted GI- Dr. Renteria- PEG tube placement when not having fevers/ leukocytosis Anemia- stable 11/18: No labs 11/17: H/H 11.9/36.5 11/16: H/H 12.2/38.1; PT 12.9, INR 1.2, PTT 39 11/15: H/H- 11.4/35.5, FU PT/INR/PTT 11/14: H/H - 11.3/35.2 11/11: H/H- 11.1/34.8 11/10: H/H- 11.5/36.1 11/09: H/H- 12.2/39.3 11/08: H/H- 10.4/33.5 11/07: H/H- 11.1/35.8 11/06: f/u H&H, monitor 11/05-11/06: H&H low, stable, continue to monitor H&H: 12.5/40.2- stable Intracranial bleed No coagulopathy Contraindication for anticoagulation Monitor Sepsis- resolving 11/18: Afebrile over last 24H, no labs today, per ID- de-escalate Abx- do not renew Vanc, will cont merrem over the weekend, then d/c on 11/21. Change the dumas if urine cx still positive for yeast. 11/17: Afebrile over last 24H, no leukocytosis- stable, no changes 11/16: Afebrile over last 24H, no leukocytosis- stable, no changes 11/15: Afebrile over last 24H, no leukocytosis- stable FU Vanc trough at 1pm 11/15 11/14: Afebrile over last 24H, no leukocytosis 11/13: Afebrile, labs stable 11/12: Afebrile overnight, f/u am labs 11/11: Afebrile over last 24H, WBC down trending, now 12.3 from 12.6, per ID: resume vancomcyin; trough 10-15; and monitor wbc count FU sputum cxr- talked to lab- results will be available on 11/12- so far only normal kalin growing FU vanc trough on 11/12 before 3rd dose 11/10: Afebrile over last 24H, WBC down trending, no w 12.6 from 14.1, Blood cx neg x 4 D, repeat urine cxr pos for yeast 11/09: Afebrile over last 24H, WBC increased from 11.9 to 14.1; Blood/urine/ sputum cxr sent Vanc trough 8.4 Urine cxr pos for yeast Diflucan 200mg Q24H ordered ID consulted for adjustement of antibiotics/antifungals- awaiting recs 11/08: Afebrile over last 24H, WBC 11.9, Bands 3 11/07: Afebrile over last 24H, WBC 16.3, Bands 6 Trach asp pos for Gram neg rods Blood cxr neg x 48H 11/06: Continue to monitor WBC 11/05: Leukocytosis 21.8 from 19.4, 16.7 - trending up 11/05: Vanc trough - 5.1 Afebrile over last 24H -Started Vanco 1gm Q24H vanco through 11/02 - 5.1 11/01- apr work up sent: blood cxr, urine cxr, CXR, C diff stool Blood cxr neg x 48H urine cxr neg Bandemia 5 10/31- Trach asp cx - normal kalin 10/31 - Urine (dumas) cxr neg 10/25 Sputum cx: Serratia marcescens and Enterobactor aerogenes 10/21 Sputum cx: Klebsiella pneumoniae Hold change of antibiotics. Fully aware of the low grade temperature, and increase in WBCs. Patient is hemodynamically stable. IV Cefepime 1 gram Q8H Acetaminophen 650 mg Q6 PRN for fever ID following- Kathy- continue Merrem and Vanco due to aspiration and pos Enterobacter Aerogenes Per Micro- Enterobacter aerogenes sensitive to merrem cont merrem Per ID: increase vanc to 1gm Q12H, FU vanc peak and trough on 3rd dose, cont diflucan Vanc trough 13.8- Vanco held, no peak done due to high trough Muscular deconditioning due to being bed bound PT Eval and treat Monitor tracheostomy site for drainage, erythema, hematoma, signs of infection. Prophylaxis: GI - Protonix 40 mg IVP daily DVT - contraindicated 09/15 to intracranial bleed WIll re-asses VTE needs on 12/07 Dispo: Con current mgmt ID following Pulm following Cont condom catheter Cont general body care SW eval for possible LTAC after PEG placement PEG tube with tube feeding in place Labs Q3days DW attending <Johny Saldana H - Last Filed: 11/18/16 15:16> Objective - Vital Signs/Intake and Output Vital Signs (last 24 hours): Temp Pulse Resp BP Pulse Ox 98.7 F 93 H 20 152/88 H 100 11/18/16 08:00 11/18/16 08:00 11/18/16 08:00 11/18/16 08:00 11/18/16 08:00 Intake and Output: 11/18/16 11/18/16 06:59 18:59 Intake Total 1380 Output Total 1900 Balance -520 - Medications Medications: Current Medications Acetaminophen (Tylenol 325mg Tab) 650 mg PO Q6 PRN PRN Reason: Fever >100.4 F Last Admin: 11/15/16 10:23 Dose: 650 mg Acetylcysteine (Acetylcysteine 20%) 4 ml INH Q6H OMAR Last Admin: 11/18/16 14:04 Dose: 4 ml Albuterol Sulfate (Albuterol 0.083% Inhal Kim (2.5 Mg/3 Ml) Ud) 2.5 mg INH RQ6 OMAR Last Admin: 11/18/16 14:04 Dose: 2.5 mg Amlodipine Besylate (Norvasc) 5 mg PO DAILY OMAR Last Admin: 11/18/16 10:49 Dose: 5 mg Meropenem 500 mg/ Sodium (Chloride) 100 mls @ 100 mls/hr IVPB Q8 OMAR Stop: 11/21/16 10:00 Last Admin: 11/18/16 14:21 Dose: 100 mls/hr Fluconazole (Diflucan Iv 200 Mg/100 Ml Ns) 100 mls @ 100 mls/hr IVPB Q24H OMAR Last Admin: 11/17/16 20:36 Dose: 100 mls/hr Pantoprazole Sodium (Protonix Susp) 40 mg PO DAILY [facility] Last Admin: 11/18/16 10:50 Dose: 40 mg Saccharomyces Boulardii (Florastor) 250 mg PO BID [facility] Last Admin: 11/18/16 10:49 Dose: 250 mg - Labs Labs: 11/17/16 06:25 11/17/16 06:25 PT 12.9 SECONDS (9.7-12.2) H 11/15/16 13:58 INR 1.2 11/15/16 13:58 APTT 39 SECONDS (21-34) H 11/15/16 13:58 Attending/Attestation - Attestation I have personally seen and examined this patient.: Yes I have fully participated in the care of the patient.: Yes I have reviewed all pertinent clinical information, including history, physical exam and plan: Yes Notes (Text): Medical attending: The patient is status post PEG tube placement, earlier in the day he was on 40/hr mL of Isosource via the PEG tube. With the increase that up to 50 at this time. Family members were present at bedside as well. We had a night clerk tried explained to the family members was going on, unfortunately this family member seems to be not as well informed his other family members. We had explained to her that very likely Mr. Benz is not expected to have further recovery of his weaknesses. We explained to this family member that because of the extensive damage the patient had to his brain during the bleeding that very likely this will be how he remains for the remainder of his life thank you Johny Saldana
[2016-11-18] MEDS: Saccharomyces Boulardi 250 mg Cap PO SCH ×2 (10:49→17:42)
[2016-11-18] MEDS: Pantoprazole 40 mg Susp UD PO SCH (10:50)
[2016-11-18] MEDS: Fluconazole IV 200mg/100 ml NS 100 ML IVPB SCH (20:44)
[2016-11-19] MEDS: Albuterol 0.083% Inhal Sol (2.5 mg/3 mL) UD INH SCH ×4 (01:44→20:01)
[2016-11-19] MEDS: Acetylcysteine 20% Inhal Soln (4ml) INH SCH ×4 (01:44→20:02)
[2016-11-19] MEDS: Meropenem 500 MG in Sodium Chloride 0.9% 100 ML IVPB SCH ×3 (05:37→23:00)
--- NOTE | 2016-11-19 08:01 | CP.PCM.PN ---
<Sung Keller - Last Filed: 11/19/16 07:58> Subjective - Date & Time of Evaluation Date of Evaluation: 11/19/16 Time of Evaluation: 07:58 - Subjective Subjective: PGY-1 note for hospitalist service Pt seen and examined at bedside. No acute events per nursing staff. Pt resting comfortably and tolerating tube feeds. Objective - Vital Signs/Intake and Output Vital Signs (last 24 hours): Temp Pulse Resp BP Pulse Ox 98.5 F 90 18 115/74 97 11/19/16 00:00 11/19/16 00:00 11/19/16 00:00 11/19/16 00:00 11/19/16 00:00 Intake and Output: 11/19/16 11/19/16 06:59 18:59 Intake Total 620 Output Total 900 Balance -280 - Medications Medications: Current Medications Acetaminophen (Tylenol 325mg Tab) 650 mg PO Q6 PRN PRN Reason: Fever >100.4 F Last Admin: 11/15/16 10:23 Dose: 650 mg Acetylcysteine (Acetylcysteine 20%) 4 ml INH Q6H OMAR Last Admin: 11/19/16 01:44 Dose: 4 ml Albuterol Sulfate (Albuterol 0.083% Inhal Kim (2.5 Mg/3 Ml) Ud) 2.5 mg INH RQ6 OMAR Last Admin: 11/19/16 01:44 Dose: 2.5 mg Amlodipine Besylate (Norvasc) 5 mg PO DAILY OMAR Last Admin: 11/18/16 10:49 Dose: 5 mg Meropenem 500 mg/ Sodium (Chloride) 100 mls @ 100 mls/hr IVPB Q8 OMAR Stop: 11/21/16 10:00 Last Admin: 11/19/16 05:37 Dose: 100 mls/hr Fluconazole (Diflucan Iv 200 Mg/100 Ml Ns) 100 mls @ 100 mls/hr IVPB Q24H OMAR Last Admin: 11/18/16 20:44 Dose: 100 mls/hr Pantoprazole Sodium (Protonix Susp) 40 mg PO DAILY OMAR Last Admin: 11/18/16 10:50 Dose: 40 mg Saccharomyces Boulardii (Florastor) 250 mg PO BID OMAR Last Admin: 11/18/16 17:42 Dose: 250 mg - Labs Labs: 11/17/16 06:25 11/17/16 06:25 PT 12.9 SECONDS (9.7-12.2) H 11/15/16 13:58 INR 1.2 11/15/16 13:58 APTT 39 SECONDS (21-34) H 11/15/16 13:58 - Constitutional Appears: Non-toxic, Chronically Ill - Head Exam Head Exam: ATRAUMATIC, NORMOCEPHALIC - ENT Exam ENT Exam: Mucous Membranes Moist - Respiratory Exam Respiratory Exam: Clear to Ausculation Bilateral, NORMAL BREATHING PATTERN - Cardiovascular Exam Cardiovascular Exam: +S1, +S2 - GI/Abdominal Exam GI & Abdominal Exam: Soft, Normal Bowel Sounds - Neurological Exam Neurological Exam: Alert, Awake - Skin Skin Exam: Dry, Warm Assessment and Plan - Assessment and Plan (Free Text) Assessment: 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 11/19: Minimal secretions at trach, stable 11/18: Trach collar in place, stable 11/17: On trach collar, stable, lots of secretions 11/16: Stable on trach collar, no changes 11/15: Stable, no changes, trach collar in place 11/14: trach collar in place 11/13: Pt still with secretions, respiratory informed and will address 11/11: Secretions continued, started duonebs and mucomyst, informed nursing to do trach care and suctioning 11/10: Pt with audible secretions on trach collar- nursing informed, OGT in place 11/09: Pt resting comfortably in bed, trach to trach collar- tolerating w/some secretions as per respiratory, OGT In place 11/08: Resting comfortably, trach in place, OGT in place, does not 11/07: Resting comfortably, trach in place 11/06: Trach in place, resting comfortably. Follows simple commands to protrude tongue and move L arm 11/05: did not follow simple commands 11/04: Continues to follows simple commands in [place] [facility] consult - Dr. Simpson advise to schedule trach and PEG. Hold antiplatelets for 4-6 weeks and maintain blood pressure above 100 systolic. Sedation as needed 10/24 CT Head: little interval change in the size of left thalamic hemorrhage 2.4x2.9 cm with intraventricular extension of hemorrhage and mild obstructive hydrocephalus. 2 mm midline shift from left to right with no evidence of herniation. Near complete resolution of hemorrhage within 4th ventricle. 10/19 CT Head: little interval change in the known 2.0 x 2.7 acute hematoma in left thalamus with intra ventricular extension of hemorrhage. Interval mild worsening of obstructive hydrocephalus. 10/18 CT Head: Left basal ganglia acute hemorrhage, possibly hypertensive with associated intraventricular hemorrhage and mass effect upon the left lateral aspect of the 3rd ventricle with the tip shift of the 3rd ventricle towards the right side. No generalized midline shift. Air-fluid level in sphenoid sinus common nonspecific. Please correlate for concern regarding acute sinusitis. Mild involutional changes. GCS - 8T (E4 VT M4) [place] 10.0, 12% estimated non-operative mortality 11/03- CT brain w/o cont for re-evaluation of bleed w/findings of Interval decrease in size and density left basal ganglia hematoma however well- circumscribed peripheral rim of low-attenuation edema about the hematoma likely represent some combination of brain edema as well as of brain necrosis. Intraventricular hemorrhage has diminished. Ventricles have also decreased in size though the temporal horns and atria remain prominent compared to the compressed remaining ventricular system. There is persistent compression of the 3rd and left lateral ventricle Chronic white matter and basal nuclei ischemic changes. December 07- reassess pt need for anticoagulation with neurology HTN: 11/19: BP stable, c/w current management 11/18: BP 145/89; Cont Norvasc 11/17: 150/89; cont Norvasc 11/16: BP 138/88,- cont Norvasc 11/15: BP 142/83, cont Norvasc/monitor VS 11/14:BP 146/95, cont Norvasc 11/12: BP controlled 11/11: BP 134/91, started Norvasc 5mg Daily 11/10: BP 135/90, will d/c IVF 11/09: BP 169/94- same as previous 11/08: BP 148/95, slight elevated, but mostly WNL- continue to hold Hydralazine 11/06: BP elevated 161/99; continue to monitor 11/05: BP WNL Amlodipine 10 mg POQD Hydralazine 25 mg PO BID - currently being held- BP WNL Losartan 100 mg POQD Labetalol 200 mg PO Q12H Respiratory failure on trach collar /mechanical vent: 11/20: no changes, pul following 11/18: Trach collar at 30% FiO2, pulm following 11/17: Pulm following, pt on 30%FiO2 via trach collar- stable 11/16: Pulm following - pt on T tube for PEG 11/15: Pulm following- cont trach collar, pulm toilet 11/14: Still tolerating trach collar off vent, pulm following 11/13: Off of vent, tolerating well. 11/11: Pulm recs- Continue weaning with trials off vent, continue nebulizer treatments 11/10: On trach collar, pulm consulted for potential weaning, mucomyst ordered for secretions 11/08: Trial pt on trach collar w/o mech vent Pulm consulted for trach weaning protocol- Leo 11/08: Trial pt on trach collar w/o mech vent 11/07: Trach collar w/CPAP 11/06: Trach in place. On mech vent s/p tracheostomy Trach tube care CPAP ABG: -10/29 pH 7.46, CO 35, O2 90, HCO3 26.0 -10/28 pH 7.46, CO2 35, O2 73, HCO3 25.9 -16 pH 7.49, CO2 33, O2 74, HCO3 26.5 -15 pH 7.5, CO2 32, O2 91, HCO3 26.6 -13 pH 7.47, CO2 35, O2 119, HCO3 26.5 -12 pH 7.47, CO2 33, O2 66, HCO3 25.5 -11 pH 7.52, CO2 33, O2 57, HCO3 28.1 -10 pH 7.48, CO2 38, O2 79, HCO3 28.5 -9 pH 7.46, CO2 37, O2 187 HCO3 26.9 -8 pH 7.46, CO2 38, O2 214, HCO3 27.4 Imaging 11/08 CXR-Tracheostomy tube in place. Other lines and tubes in stable position. Mild patchy increased markings in the right infrahilar region. Biapical pleural thickening. 11/02/CXR - repeat CXR for replacement of OGT w/Support lines tubes - normally positioned No interval pathology noted 11/02 CXR - Interval improvement in the right lower lung since the previous study. Appropriate position of the right-sided PICC line with the tip is likely at the SVC right atrium junction 11/01 CXR - The in situ tracheostomy tube and NG tube positions are as before. Mild interval prominence of the right infrahilar bronchovascular markings either due to technique or subtle interval patchy infiltrate. Clinical follow- up recommended 10/31 CXR -In situ tracheostomy tube remains in good position. NGT w/tip overlying LUQ of the abdomen unchanged. Continued improvement right lung base. 10/28 CXR No focal airspace opacity 10/27 CXR No active disease 10/26 CXR - Mild venous congestion. Right hilar prominence 10/24 CXR Mild venous congestion. Mild right infrahilar prominence 10/23 CXR - Mild venous congestion. right hilar prominence. Biapical pleural thickening upper lobe granulomatous changes. lines and tubes in stable position. 10/22 CXR - Worsening consolidative changes to right mid to lower lung zone. lines and tubes in stable position. 10/20 CXR - Distal tip of an endotracheal tube terminates approximately 4.6 cm above the brisa. Left IJ approach Central venous catheter terminates at expected location of the left innominate vein. Nasogastric tube extends to expected location of the stomach 10/19 CXR New nasogastric tube extends to distal esophagus, above the diaphragm. Repositioning is advised. ET tube unchanged. No infiltrate. 10/18 CXR ET tube proximal to brisa, no acute pulmonary pathology official read pending Head of bed to 30* Keep O2 Sat >92% Dysphagia 11/19: tolerating feedings 11/18: Tube feeds to 30cc today, keep free water flushes 11/17: PEG tube placed, tube feeds to start at noon, Dietary recs- Isosource 1.5, goal rate 50ml; Free water flushes 300cc Q8H 11/16: PEG tube today, tube feeds held 11/15: PEG tube in AM per GI, told Tube feeds after MN- NPO and nursing order in 11/14: No residuals overnight, ok to increase rate to 30cc/hr, GI re-consulted for PEG tube placement 11/11: Pt w/10cc residuals- kept at rate of 20cc/hr, will consider increasing by 10cc tomorrow if no residuals 11/10: Tube feeds stable 11/09: Tube feeds at 30cc/hr, no reported residuals. Advance by 10cc per day until goal of 50cc. 11/08- OGT placed last night, position verified- ok to use OGT for tube feeds 11/07: NPO- no access to stomach 11/05: OGT removed due to possible contribution to fever/sepsis. Feeding tube via oropharynx replaced 11/02 after pt removed position verified by CXR Feeding tube via oropharynx replaced 11/01 Position verified by CXR NGT was advanced 10/20 - d/c'd Consulted GI- Dr. Renteria- PEG tube placement when not having fevers/ leukocytosis Anemia- stable 11/18: No labs 11/17: H/H 11.9/36.5 11/16: H/H 12.2/38.1; PT 12.9, INR 1.2, PTT 39 11/15: H/H- 11.4/35.5, FU PT/INR/PTT 11/14: H/H - 11.3/35.2 11/11: H/H- 11.1/34.8 11/10: H/H- 11.5/36.1 11/09: H/H- 12.2/39.3 11/08: H/H- 10.4/33.5 11/07: H/H- 11.1/35.8 11/06: f/u H&H, monitor 11/05-11/06: H&H low, stable, continue to monitor H&H: 12.5/40.2- stable Intracranial bleed No coagulopathy Contraindication for anticoagulation Monitor Sepsis- resolving 11/19: no changes, afebrile 11/18: Afebrile over last 24H, no labs today, per ID- de-escalate Abx- do not renew Vanc, will cont merrem over the weekend, then d/c on 11/21. Change the dumas if urine cx still positive for yeast. 11/17: Afebrile over last 24H, no leukocytosis- stable, no changes 11/16: Afebrile over last 24H, no leukocytosis- stable, no changes 11/15: Afebrile over last 24H, no leukocytosis- stable FU Vanc trough at 1pm 11/15 11/14: Afebrile over last 24H, no leukocytosis 11/13: Afebrile, labs stable 11/12: Afebrile overnight, f/u am labs 11/11: Afebrile over last 24H, WBC down trending, now 12.3 from 12.6, per ID: resume vancomcyin; trough 10-15; and monitor wbc count FU sputum cxr- talked to lab- results will be available on 11/12- so far only normal kalin growing FU vanc trough on 11/12 before 3rd dose 11/10: Afebrile over last 24H, WBC down trending, no w 12.6 from 14.1, Blood cx neg x 4 D, repeat urine cxr pos for yeast 11/09: Afebrile over last 24H, WBC increased from 11.9 to 14.1; Blood/urine/ sputum cxr sent Vanc trough 8.4 Urine cxr pos for yeast Diflucan 200mg Q24H ordered ID consulted for adjustement of antibiotics/antifungals- awaiting recs 11/08: Afebrile over last 24H, WBC 11.9, Bands 3 11/07: Afebrile over last 24H, WBC 16.3, Bands 6 Trach asp pos for Gram neg rods Blood cxr neg x 48H 11/06: Continue to monitor WBC 11/05: Leukocytosis 21.8 from 19.4, 16.7 - trending up 11/05: Vanc trough - 5.1 Afebrile over last 24H -Started Vanco 1gm Q24H vanco through 11/02 - 5.1 11/01- apr work up sent: blood cxr, urine cxr, CXR, C diff stool Blood cxr neg x 48H urine cxr neg Bandemia 5 10/31- Trach asp cx - normal kalin 10/31 - Urine ([place]) cxr neg 10/25 Sputum cx: Serratia marcescens and Enterobactor aerogenes 10/21 Sputum cx: Klebsiella pneumoniae Hold change of antibiotics. Fully aware of the low grade temperature, and increase in WBCs. Patient is hemodynamically stable. IV Cefepime 1 gram Q8H Acetaminophen 650 mg Q6 PRN for fever ID following- Kathy- continue Merrem and Vanco due to aspiration and pos Enterobacter Aerogenes Per Micro- Enterobacter aerogenes sensitive to merrem cont merrem Per ID: increase vanc to 1gm Q12H, FU vanc peak and trough on 3rd dose, cont diflucan Vanc trough 13.8- Vanco held, no peak done due to high trough Muscular deconditioning due to being bed bound PT Eval and treat Monitor tracheostomy site for drainage, erythema, hematoma, signs of infection. Prophylaxis: GI - Protonix 40 mg IVP daily DVT - contraindicated 09/15 to intracranial bleed WIll re-asses VTE needs on 12/07 Dispo: Con current mgmt ID following Pulm following Cont condom catheter Cont general body care SW eval for possible LTAC after PEG placement PEG tube with tube feeding in place Labs Q3days <Johny Saldana H - Last Filed: 11/19/16 12:30> Objective - Vital Signs/Intake and Output Vital Signs (last 24 hours): Temp Pulse Resp BP Pulse Ox 98.0 F 95 H 20 130/88 99 11/19/16 08:10 11/19/16 08:33 11/19/16 08:10 11/19/16 08:10 11/19/16 08:10 Intake and Output: 11/19/16 11/19/16 06:59 18:59 Intake Total 620 720 Output Total 900 600 Balance -280 120 - Medications Medications: Current Medications Acetaminophen (Tylenol 325mg Tab) 650 mg PO Q6 PRN PRN Reason: Fever >100.4 F Last Admin: 11/15/16 10:23 Dose: 650 mg Acetylcysteine (Acetylcysteine 20%) 4 ml INH Q6H [facility] Last Admin: 11/19/16 08:23 Dose: 4 ml Albuterol Sulfate (Albuterol 0.083% Inhal Kim (2.5 Mg/3 Ml) Ud) 2.5 mg INH RQ6 OMAR Last Admin: 11/19/16 08:23 Dose: 2.5 mg Amlodipine Besylate (Norvasc) 5 mg PO DAILY [facility] Last Admin: 11/19/16 10:56 Dose: 5 mg Meropenem 500 mg/ Sodium (Chloride) 100 mls @ 100 mls/hr IVPB Q8 OMAR Stop: 11/21/16 10:00 Last Admin: 11/19/16 05:37 Dose: 100 mls/hr Fluconazole (Diflucan Iv 200 Mg/100 Ml Ns) 100 mls @ 100 mls/hr IVPB Q24H [facility] Last Admin: 11/18/16 20:44 Dose: 100 mls/hr Pantoprazole Sodium (Protonix Susp) 40 mg PO DAILY [facility] Last Admin: 11/19/16 10:56 Dose: 40 mg Saccharomyces Boherbdii (Florastor) 250 mg PO BID OMAR Last Admin: 11/19/16 10:56 Dose: 250 mg - Labs Labs: 11/17/16 06:25 11/17/16 06:25 PT 12.9 SECONDS (9.7-12.2) H 11/15/16 13:58 INR 1.2 11/15/16 13:58 APTT 39 SECONDS (21-34) H 11/15/16 13:58 Attending/Attestation - Attestation I have personally seen and examined this patient.: Yes I have fully participated in the care of the patient.: Yes I have reviewed all pertinent clinical information, including history, physical exam and plan: Yes Notes (Text): Medical Attending: Patient was seen and examined by me. Agree with the above note by the resident The patient is clinically not changed from before. The situation remains the same. A family member name Minerva eBnz was in the room, from [place], we had an extended discussion Now has PEG tube, feeds at 50 cc hr. thank you Johny Saldana
[2016-11-19] MEDS: Pantoprazole 40 mg Susp UD PO SCH (10:56)
[2016-11-19] MEDS: Saccharomyces Boulardi 250 mg Cap PO SCH ×2 (10:56→18:27)
[2016-11-19] MEDS: Fluconazole IV 200mg/100 ml NS 100 ML IVPB SCH (21:00)
--- NOTE | 2016-11-20 01:07 | CP.PCM.PN ---
<Jennifer Freed - Last Filed: 11/20/16 01:04> Subjective - Date & Time of Evaluation Date of Evaluation: 11/20/16 Time of Evaluation: 00:25 - Subjective Subjective: PGY-1 note for hospitalist service Pt seen and examined at bedside. No acute events per nursing staff. Pt resting comfortably and tolerating tube feeds. Nods head no when asked if in pain but otherwise can't answer other questions to obtain full ROS. Objective - Vital Signs/Intake and Output Vital Signs (last 24 hours): Temp Pulse Resp BP Pulse Ox 97.4 F L 83 20 136/83 99 11/19/16 23:59 11/19/16 23:59 11/19/16 23:59 11/19/16 23:59 11/19/16 23:59 Intake and Output: 11/19/16 11/20/16 18:59 06:59 Intake Total 720 Output Total 1200 Balance -480 - Medications Medications: Current Medications Acetaminophen (Tylenol 325mg Tab) 650 mg PO Q6 PRN PRN Reason: Fever >100.4 F Last Admin: 11/15/16 10:23 Dose: 650 mg Acetylcysteine (Acetylcysteine 20%) 4 ml INH Q6H [facility] Last Admin: 11/19/16 20:02 Dose: 4 ml Albuterol Sulfate (Albuterol 0.083% Inhal Kim (2.5 Mg/3 Ml) Ud) 2.5 mg INH RQ6 OMAR Last Admin: 11/19/16 20:01 Dose: 2.5 mg Amlodipine Besylate (Norvasc) 5 mg PO DAILY [facility] Last Admin: 11/19/16 10:56 Dose: 5 mg Meropenem 500 mg/ Sodium (Chloride) 100 mls @ 100 mls/hr IVPB Q8 [facility] Stop: 11/21/16 10:00 Last Admin: 11/19/16 23:00 Dose: 100 mls/hr Fluconazole (Diflucan Iv 200 Mg/100 Ml Ns) 100 mls @ 100 mls/hr IVPB Q24H [facility] Last Admin: 11/19/16 21:00 Dose: 100 mls/hr Pantoprazole Sodium (Protonix Susp) 40 mg PO DAILY [facility] Last Admin: 11/19/16 10:56 Dose: 40 mg Saccharomyces Boulardii (Florastor) 250 mg PO BID [facility] Last Admin: 11/19/16 18:27 Dose: 250 mg - Labs Labs: 11/17/16 06:25 11/17/16 06:25 PT 12.9 SECONDS (9.7-12.2) H 11/15/16 13:58 INR 1.2 11/15/16 13:58 APTT 39 SECONDS (21-34) H 11/15/16 13:58 - Constitutional Appears: Non-toxic, No Acute Distress - Head Exam Head Exam: ATRAUMATIC, NORMAL INSPECTION - Eye Exam Eye Exam: EOMI, Normal appearance, PERRL Pupil Exam: NORMAL ACCOMODATION - ENT Exam ENT Exam: Mucous Membranes Moist - Neck Exam Additional comments: Trach in place - Respiratory Exam Respiratory Exam: Clear to Ausculation Bilateral, NORMAL BREATHING PATTERN. absent: Accessory Muscle Use, Chest Wall Tenderness, Respiratory Distress - Cardiovascular Exam Cardiovascular Exam: REGULAR RHYTHM, +S1, +S2 - GI/Abdominal Exam GI & Abdominal Exam: Soft, Normal Bowel Sounds. absent: Distended, Firm, Guarding, Tenderness Additional comments: Peg in place - Extremities Exam Extremities Exam: Normal Inspection. absent: Calf Tenderness, Pedal Edema - Back Exam Back Exam: NORMAL INSPECTION. 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 11/19: Minimal secretions at trach, stable 11/18: Trach collar in place, stable 11/17: On trach collar, stable, lots of secretions 11/16: Stable on trach collar, no changes 11/15: Stable, no changes, trach collar in place 11/14: trach collar in place 11/13: Pt still with secretions, respiratory informed and will address 11/11: Secretions continued, started duonebs and mucomyst, informed nursing to do trach care and suctioning 11/10: Pt with audible secretions on trach collar- nursing informed, OGT in place 11/09: Pt resting comfortably in bed, trach to trach collar- tolerating w/some secretions as per respiratory, OGT In place 11/08: Resting comfortably, trach in place, OGT in place, does not 11/07: Resting comfortably, trach in place 11/06: Trach in place, resting comfortably. Follows simple commands to protrude tongue and move L arm 11/05: did not follow simple commands 11/04: Continues to follows simple commands in [place] Neu[facility] consult - Dr. Simpson advise to schedule trach and PEG. Hold antiplatelets for 4-6 weeks and maintain blood pressure above 100 systolic. Sedation as needed 10/24 CT Head: little interval change in the size of left thalamic hemorrhage 2.4x2.9 cm with intraventricular extension of hemorrhage and mild obstructive hydrocephalus. 2 mm midline shift from left to right with no evidence of herniation. Near complete resolution of hemorrhage within 4th ventricle. 10/19 CT Head: little interval change in the known 2.0 x 2.7 acute hematoma in left thalamus with intra ventricular extension of hemorrhage. Interval mild worsening of obstructive hydrocephalus. 10/18 CT Head: Left basal ganglia acute hemorrhage, possibly hypertensive with associated intraventricular hemorrhage and mass effect upon the left lateral aspect of the 3rd ventricle with the tip shift of the 3rd ventricle towards the right side. No generalized midline shift. Air-fluid level in sphenoid sinus common nonspecific. Please correlate for concern regarding acute sinusitis. Mild involutional changes. GCS - 8T (E4 VT M4) [place] II 10.0, 12% estimated non-operative mortality 11/03- CT brain w/o cont for re-evaluation of bleed w/findings of Interval decrease in size and density left basal ganglia hematoma however well- circumscribed peripheral rim of low-attenuation edema about the hematoma likely represent some combination of brain edema as well as of brain necrosis. Intraventricular hemorrhage has diminished. Ventricles have also decreased in size though the temporal horns and atria remain prominent compared to the compressed remaining ventricular system. There is persistent compression of the 3rd and left lateral ventricle Chronic white matter and basal nuclei ischemic changes. December 07- reassess pt need for anticoagulation with neurology HTN: 11/19: BP stable, c/w current management 11/18: BP 145/89; Cont Norvasc 11/17: 150/89; cont Norvasc 11/16: BP 138/88,- cont Norvasc 11/15: BP 142/83, cont Norvasc/monitor VS 11/14:BP 146/95, cont Norvasc 11/12: BP controlled 11/11: BP 134/91, started Norvasc 5mg Daily 11/10: BP 135/90, will d/c IVF 11/09: BP 169/94- same as previous 11/08: BP 148/95, slight elevated, but mostly WNL- continue to hold Hydralazine 11/06: BP elevated 161/99; continue to monitor 11/05: BP WNL Amlodipine 10 mg POQD Hydralazine 25 mg PO BID - currently being held- BP WNL Losartan 100 mg POQD Labetalol 200 mg PO Q12H Respiratory failure on trach collar /mechanical vent: 11/20: no changes, pul following 11/18: Trach collar at 30% FiO2, pulm following 11/17: Pulm following, pt on 30%FiO2 via trach collar- stable 11/16: Pulm following - pt on T tube for PEG 11/15: Pulm following- cont trach collar, pulm toilet 11/14: Still tolerating trach collar off vent, pulm following 11/13: Off of vent, tolerating well. 11/11: Pulm recs- Continue weaning with trials off vent, continue nebulizer treatments 11/10: On trach collar, pulm consulted for potential weaning, mucomyst ordered for secretions 11/08: Trial pt on trach collar w/o mech vent Pulm consulted for trach weaning protocol- Leo 11/08: Trial pt on trach collar w/o mech vent 11/07: Trach collar w/CPAP 11/06: Trach in place. On mech vent s/p tracheostomy Trach tube care CPAP ABG: -10/29 pH 7.46, CO 35, O2 90, HCO3 26.0 -10/28 pH 7.46, CO2 35, O2 73, HCO3 25.9 -10/27 pH 7.49, CO2 33, O2 74, HCO3 26.5 -10/26 pH 7.5, CO2 32, O2 91, HCO3 26.6 -10/24 pH 7.47, CO2 35, O2 119, HCO3 26.5 -10/23 pH 7.47, CO2 33, O2 66, HCO3 25.5 -10/22 pH 7.52, CO2 33, O2 57, HCO3 28.1 -10/21 pH 7.48, CO2 38, O2 79, HCO3 28.5 -10/20 pH 7.46, CO2 37, O2 187 HCO3 26.9 -10/19 pH 7.46, CO2 38, O2 214, HCO3 27.4 Imaging 11/08 CXR-Tracheostomy tube in place. Other lines and tubes in stable position. Mild patchy increased markings in the right infrahilar region. Biapical pleural thickening. 11/02/CXR - repeat CXR for replacement of OGT w/Support lines tubes - normally positioned No interval pathology noted 11/02 CXR - Interval improvement in the right lower lung since the previous study. Appropriate position of the right-sided PICC line with the tip is likely at the SVC right atrium junction 11/01 CXR - The in situ tracheostomy tube and NG tube positions are as before. Mild interval prominence of the right infrahilar bronchovascular markings either due to technique or subtle interval patchy infiltrate. Clinical follow- up recommended 10/31 CXR -In situ tracheostomy tube remains in good position. NGT w/tip overlying LUQ of the abdomen unchanged. Continued improvement right lung base. 10/28 CXR No focal airspace opacity 10/27 CXR No active disease 10/26 CXR - Mild venous congestion. Right hilar prominence 10/24 CXR Mild venous congestion. Mild right infrahilar prominence 10/23 CXR - Mild venous congestion. right hilar prominence. Biapical pleural thickening upper lobe granulomatous changes. lines and tubes in stable position. 10/22 CXR - Worsening consolidative changes to right mid to lower lung zone. lines and tubes in stable position. 10/20 CXR - Distal tip of an endotracheal tube terminates approximately 4.6 cm above the brisa. Left IJ approach Central venous catheter terminates at expected location of the left innominate vein. Nasogastric tube extends to expected location of the stomach 10/19 CXR New nasogastric tube extends to distal esophagus, above the diaphragm. Repositioning is advised. ET tube unchanged. No infiltrate. 10/18 CXR ET tube proximal to brisa, no acute pulmonary pathology official read pending Head of bed to 30* Keep O2 Sat >92% Dysphagia 11/19: tolerating feedings 11/18: Tube feeds to 30cc today, keep free water flushes 11/17: PEG tube placed, tube feeds to start at noon, Dietary recs- Isosource 1.5, goal rate 50ml; Free water flushes 300cc Q8H 11/16: PEG tube today, tube feeds held 11/15: PEG tube in AM per GI, told Tube feeds after MN- NPO and nursing order in 11/14: No residuals overnight, ok to increase rate to 30cc/hr, GI re-consulted for PEG tube placement 11/11: Pt w/10cc residuals- kept at rate of 20cc/hr, will consider increasing by 10cc tomorrow if no residuals 11/10: Tube feeds stable 11/09: Tube feeds at 30cc/hr, no reported residuals. Advance by 10cc per day until goal of 50cc. 11/08- OGT placed last night, position verified- ok to use OGT for tube feeds 11/07: NPO- no access to stomach 11/05: OGT removed due to possible contribution to fever/sepsis. Feeding tube via oropharynx replaced 11/02 after pt removed position verified by CXR Feeding tube via oropharynx replaced 11/01 Position verified by CXR NGT was advanced 10/20 - d/c'd Consulted GI- Dr. Renteria- PEG tube placement when not having fevers/ leukocytosis Anemia- stable 11/18: No labs 11/17: H/H 11.9/36.5 11/16: H/H 12.2/38.1; PT 12.9, INR 1.2, PTT 39 11/15: H/H- 11.4/35.5, FU PT/INR/PTT 11/14: H/H - 11.3/35.2 11/11: H/H- 11.1/34.8 11/10: H/H- 11.5/36.1 11/09: H/H- 12.2/39.3 11/08: H/H- 10.4/33.5 11/07: H/H- 11.1/35.8 11/06: f/u H&H, monitor 11/05-11/06: H&H low, stable, continue to monitor H&H: 12.5/40.2- stable Intracranial bleed No coagulopathy Contraindication for anticoagulation Monitor Sepsis- resolving 11/19: no changes, afebrile 11/18: Afebrile over last 24H, no labs today, per ID- de-escalate Abx- do not renew Vanc, will cont merrem over the weekend, then d/c on 11/21. Change the dumas if urine cx still positive for yeast. 11/17: Afebrile over last 24H, no leukocytosis- stable, no changes 11/16: Afebrile over last 24H, no leukocytosis- stable, no changes 11/15: Afebrile over last 24H, no leukocytosis- stable FU Vanc trough at 1pm 11/15 11/14: Afebrile over last 24H, no leukocytosis 11/13: Afebrile, labs stable 11/12: Afebrile overnight, f/u am labs 11/11: Afebrile over last 24H, WBC down trending, now 12.3 from 12.6, per ID: resume vancomcyin; trough 10-15; and monitor wbc count FU sputum cxr- talked to lab- results will be available on 11/12- so far only normal kalin growing FU vanc trough on 11/12 before 3rd dose 11/10: Afebrile over last 24H, WBC down trending, no w 12.6 from 14.1, Blood cx neg x 4 D, repeat urine cxr pos for yeast 11/09: Afebrile over last 24H, WBC increased from 11.9 to 14.1; Blood/urine/ sputum cxr sent Vanc trough 8.4 Urine cxr pos for yeast Diflucan 200mg Q24H ordered ID consulted for adjustement of antibiotics/antifungals- awaiting recs 11/08: Afebrile over last 24H, WBC 11.9, Bands 3 11/07: Afebrile over last 24H, WBC 16.3, Bands 6 Trach asp pos for Gram neg rods Blood cxr neg x 48H 11/06: Continue to monitor WBC 11/05: Leukocytosis 21.8 from 19.4, 16.7 - trending up 11/05: Vanc trough - 5.1 Afebrile over last 24H -Started Vanco 1gm Q24H vanco through 11/02 - 5.1 11/01- apr work up sent: blood cxr, urine cxr, CXR, C diff stool Blood cxr neg x 48H urine cxr neg Bandemia 5 10/31- Trach asp cx - normal kalin 3/20 - Urine ([place]) cxr neg 10/25 Sputum cx: Serratia marcescens and Enterobactor aerogenes 10/21 Sputum cx: Klebsiella pneumoniae Hold change of antibiotics. Fully aware of the low grade temperature, and increase in WBCs. Patient is hemodynamically stable. IV Cefepime 1 gram Q8H Acetaminophen 650 mg Q6 PRN for fever ID following- Kathy- continue Merrem and Vanco due to aspiration and pos Enterobacter Aerogenes Per Micro- Enterobacter aerogenes sensitive to merrem cont merrem Per ID: increase vanc to 1gm Q12H, FU vanc peak and trough on 3rd dose, cont diflucan Vanc trough 13.8- Vanco held, no peak done due to high trough Muscular deconditioning due to being bed bound PT Eval and treat Monitor tracheostomy site for drainage, erythema, hematoma, signs of infection. Prophylaxis: GI - Protonix 40 mg IVP daily DVT - contraindicated 09/15 to intracranial bleed WIll re-asses VTE needs on 12/07 Dispo: Con current mgmt ID following Pulm following Cont condom catheter Cont general body care SW eval for possible LTAC after PEG placement PEG tube with tube feeding in place- 50 cc/hour Labs Q3days <Jhony Saldana H - Last Filed: 11/20/16 12:00> Objective - Vital Signs/Intake and Output Vital Signs (last 24 hours): Temp Pulse Resp BP Pulse Ox 97.8 F 73 20 151/89 H 100 11/20/16 08:36 11/20/16 08:36 11/20/16 08:36 11/20/16 08:36 11/20/16 08:36 Intake and Output: 11/20/16 11/20/16 06:59 18:59 Intake Total 800 Output Total 300 Balance 500 - Medications Medications: Current Medications Acetaminophen (Tylenol 325mg Tab) 650 mg PO Q6 PRN PRN Reason: Fever >100.4 F Last Admin: 11/15/16 10:23 Dose: 650 mg Acetylcysteine (Acetylcysteine 20%) 4 ml INH Q6H [facility] Last Admin: 11/20/16 07:52 Dose: 4 ml Albuterol Sulfate (Albuterol 0.083% Inhal Kim (2.5 Mg/3 Ml) Ud) 2.5 mg INH RQ6 OMAR Last Admin: 11/20/16 07:52 Dose: 2.5 mg Amlodipine Besylate (Norvasc) 5 mg PO DAILY [facility] Last Admin: 11/20/16 09:32 Dose: 5 mg Meropenem 500 mg/ Sodium (Chloride) 100 mls @ 100 mls/hr IVPB Q8 [facility] Stop: 11/21/16 10:00 Last Admin: 11/20/16 05:27 Dose: 100 mls/hr Fluconazole (Diflucan Iv 200 Mg/100 Ml Ns) 100 mls @ 100 mls/hr IVPB Q24H [facility] Last Admin: 11/19/16 21:00 Dose: 100 mls/hr Pantoprazole Sodium (Protonix Susp) 40 mg PO DAILY [facility] Last Admin: 11/20/16 09:33 Dose: 40 mg Saccharomyces Boulardii (Florastor) 250 mg PO BID [facility] Last Admin: 11/20/16 09:32 Dose: 250 mg - Labs Labs: 11/20/16 05:57 11/20/16 05:57 PT 12.9 SECONDS (9.7-12.2) H 11/15/16 13:58 INR 1.2 11/15/16 13:58 APTT 39 SECONDS (21-34) H 11/15/16 13:58 Attending/Attestation - Attestation I have personally seen and examined this patient.: Yes I have fully participated in the care of the patient.: Yes I have reviewed all pertinent clinical information, including history, physical exam and plan: Yes Notes (Text): 11/20/16 11:57 Medical Attending: Patient was seen and examined by me, agree with the above note by the resident. Currently at 50 cc /hr of Isosource PEG feeds. Currently no change from before, situation remains the same. Yesterday I had a long conversation with family at bedside however this morning no one was present, though I did impress upon them that unfourtunately it seems that patient will be in hospital for a very long period of time thank you Johny Saldana
[2016-11-20] MEDS: Acetylcysteine 20% Inhal Soln (4ml) INH SCH ×4 (01:16→20:50)
[2016-11-20] MEDS: Albuterol 0.083% Inhal Sol (2.5 mg/3 mL) UD INH SCH ×4 (01:16→20:51)
[2016-11-20] MEDS: Meropenem 500 MG in Sodium Chloride 0.9% 100 ML IVPB SCH ×3 (05:27→21:37)
[2016-11-20 06:04] LABS: BASO % 0.5 % (0.0-2.0); EOS # 0.5 K/uL (0.0-0.7); EOS % 6.4 % (0.0-4.0); HEMATOCRIT 34.2 % (35.0-51.0); LYMPH # 1.3 K/uL (1.0-4.3); LYMPH % 15.2 % (20.0-40.0); MEAN CELL VOLUME 81.8 fL (80.0-94.0); MEAN CORPUSCULAR HEMOGLOBIN 26.3 pg (27.0-31.0); MEAN CORPUSCULAR HGB CONC 32.1 g/dL (33.0-37.0); MEAN PLATELET VOLUME 8.5 fL (7.2-11.7); MONO # 0.9 K/uL (0.0-0.8); MONO % 10.6 % (0.0-10.0); RED CELL DISTRIBUTION WIDTH 13.6 % (11.5-14.5); WHITE BLOOD COUNT 8.6 K/uL (4.8-10.8)
[2016-11-20 06:16] LABS: CHLORIDE 96 mmol/L (98-107); POTASSIUM 4.3 mmol/L (3.6-5.2); SODIUM 141 mmol/L (132-148)
[2016-11-20 06:18] LABS: GFR AFRICAN-AMERICAN > 60
[2016-11-20 06:19] LABS: ALB/GLOB RATIO 0.8 (1.0-2.1); ALKALINE PHOSPHATASE 107 U/L (38-126); ALT/SGPT 47 U/L (21-72); AST/SGOT 39 U/L (17-59); BILIRUBIN,TOTAL 0.6 mg/dL (0.2-1.3); BLOOD UREA NITROGEN 20 mg/dL (9-20); CALCIUM 8.1 mg/dl (8.6-10.4); CARBON DIOXIDE 33 mmol/L (22-30); GLUCOSE,RANDOM 104 mg/dL (75-110); MAGNESIUM 1.9 mg/dL (1.6-2.3); PHOSPHOROUS 3.4 mg/dL (2.5-4.5); TOTAL PROTEIN 6.5 g/dL (6.3-8.3)
[2016-11-20] MEDS: Saccharomyces Boulardi 250 mg Cap PO SCH ×2 (09:32→17:34)
[2016-11-20] MEDS: Pantoprazole 40 mg Susp UD PO SCH (09:33)
[2016-11-20] MEDS: Fluconazole IV 200mg/100 ml NS 100 ML IVPB SCH (21:37)
[2016-11-21] MEDS: Acetylcysteine 20% Inhal Soln (4ml) INH SCH ×4 (02:06→19:47)
[2016-11-21] MEDS: Albuterol 0.083% Inhal Sol (2.5 mg/3 mL) UD INH SCH ×4 (02:06→19:48)
[2016-11-21] MEDS: Meropenem 500 MG in Sodium Chloride 0.9% 100 ML IVPB SCH (06:00)
[2016-11-21] MEDS: Saccharomyces Boulardi 250 mg Cap PO SCH ×2 (09:23→17:42)
[2016-11-21] MEDS: Pantoprazole 40 mg Susp UD PO SCH (09:23)
--- NOTE | 2016-11-21 11:10 | CP.PCM.PN ---
<Marybel Taylor - Last Filed: 11/21/16 11:12> Subjective - Date & Time of Evaluation Date of Evaluation: 11/21/16 Time of Evaluation: 07:00 - Subjective Subjective: Internal medicine progress note for Hospitalist service- Marybel Taylor, PGY-1 Pt S & E at bedside. Pt resting comfortably in bed, no events over night per nursing- no residuals, tube feeds at goal of 50cc/hr. Objective - Vital Signs/Intake and Output Vital Signs (last 24 hours): Temp Pulse Resp BP Pulse Ox 98.7 F 86 20 125/83 100 11/21/16 08:00 11/21/16 08:00 11/21/16 08:00 11/21/16 08:00 11/21/16 08:00 Intake and Output: 11/21/16 11/21/16 06:59 18:59 Intake Total 900 800 Output Total 500 550 Balance 400 250 - Medications Medications: Current Medications Acetaminophen (Tylenol 325mg Tab) 650 mg PO Q6 PRN PRN Reason: Fever >100.4 F Last Admin: 11/15/16 10:23 Dose: 650 mg Acetylcysteine (Acetylcysteine 20%) 4 ml INH Q6H OMAR Last Admin: 11/21/16 07:53 Dose: 4 ml Albuterol Sulfate (Albuterol 0.083% Inhal Kim (2.5 Mg/3 Ml) Ud) 2.5 mg INH RQ6 OMAR Last Admin: 11/21/16 07:53 Dose: 2.5 mg Amlodipine Besylate (Norvasc) 5 mg PO DAILY OMAR Last Admin: 11/21/16 09:23 Dose: 5 mg Aspirin (Aspirin Chewable) 81 mg GT DAILY [facility] Fluconazole (Diflucan Iv 200 Mg/100 Ml Ns) 100 mls @ 100 mls/hr IVPB Q24H OMAR Last Admin: 11/20/16 21:37 Dose: 100 mls/hr Pantoprazole Sodium (Protonix Susp) 40 mg PO DAILY OMAR Last Admin: 11/21/16 09:23 Dose: 40 mg Saccharomyces Boulardii (Florastor) 250 mg PO BID OMAR Last Admin: 11/21/16 09:23 Dose: 250 mg - Labs Labs: 11/20/16 05:57 11/20/16 05:57 PT 12.9 SECONDS (9.7-12.2) H 11/15/16 13:58 INR 1.2 11/15/16 13:58 APTT 39 SECONDS (21-34) H 11/15/16 13:58 - Constitutional Appears: Non-toxic, No Acute Distress - Head Exam Head Exam: ATRAUMATIC, NORMAL INSPECTION, NORMOCEPHALIC - Eye Exam Eye Exam: EOMI, Normal appearance, PERRL Pupil Exam: NORMAL ACCOMODATION, PERRL - ENT Exam ENT Exam: Mucous Membranes Moist, Normal Exam - Neck Exam Neck Exam: absent: Full ROM (does not turn head to right) Additional comments: trach collar in place - Respiratory Exam Respiratory Exam: Clear to Ausculation Bilateral, NORMAL BREATHING PATTERN. absent: Rales, Rhonchi, Wheezes, Respiratory Distress, Stridor - Cardiovascular Exam Cardiovascular Exam: REGULAR RHYTHM, +S1, +S2 - GI/Abdominal Exam GI & Abdominal Exam: Soft, Normal Bowel Sounds. absent: Tenderness Additional comments: PEG tube in place- dressing - C/D/I - Extremities Exam Extremities Exam: absent: Full ROM (does not move right side of body), Pedal Edema - Neurological Exam Neurological Exam: Alert, Awake. 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 11/21: Trach collar in place, secretions audible- nursing notified; ASA 81 mg daily started as per neuro 11/19: Minimal secretions at trach, stable 11/18: Trach collar in place, stable 11/17: On trach collar, stable, lots of secretions 11/16: Stable on trach collar, no changes 11/15: Stable, no changes, trach collar in place 11/14: trach collar in place 11/13: Pt still with secretions, respiratory informed and will address 11/11: Secretions continued, started duonebs and mucomyst, informed nursing to do trach care and suctioning 11/10: Pt with audible secretions on trach collar- nursing informed, OGT in place 11/09: Pt resting comfortably in bed, trach to trach collar- tolerating w/some secretions as per respiratory, OGT In place 11/08: Resting comfortably, trach in place, OGT in place, does not 11/07: Resting comfortably, trach in place 11/06: Trach in place, resting comfortably. Follows simple commands to protrude tongue and move L arm 11/05: did not follow simple commands 11/04: Continues to follows simple commands in [place] Neu[facility] consult - Dr. Simpson advise to schedule trach and PEG. Hold antiplatelets for 4-6 weeks and maintain blood pressure above 100 systolic. Sedation as needed 10/24 CT Head: little interval change in the size of left thalamic hemorrhage 2.4x2.9 cm with intraventricular extension of hemorrhage and mild obstructive hydrocephalus. 2 mm midline shift from left to right with no evidence of herniation. Near complete resolution of hemorrhage within 4th ventricle. 10/19 CT Head: little interval change in the known 2.0 x 2.7 acute hematoma in left thalamus with intra ventricular extension of hemorrhage. Interval mild worsening of obstructive hydrocephalus. 10/18 CT Head: Left basal ganglia acute hemorrhage, possibly hypertensive with associated intraventricular hemorrhage and mass effect upon the left lateral aspect of the 3rd ventricle with the tip shift of the 3rd ventricle towards the right side. No generalized midline shift. Air-fluid level in sphenoid sinus common nonspecific. Please correlate for concern regarding acute sinusitis. Mild involutional changes. GCS - 8T (E4 VT M4) EMMONAK II 10.0, 12% estimated non-operative mortality 11/03- CT brain w/o cont for re-evaluation of bleed w/findings of Interval decrease in size and density left basal ganglia hematoma however well- circumscribed peripheral rim of low-attenuation edema about the hematoma likely represent some combination of brain edema as well as of brain necrosis. Intraventricular hemorrhage has diminished. Ventricles have also decreased in size though the temporal horns and atria remain prominent compared to the compressed remaining ventricular system. There is persistent compression of the 3rd and left lateral ventricle Chronic white matter and basal nuclei ischemic changes. December 07- reassess pt need for anticoagulation with neurology HTN: 11/21: BP 128/89, cont Norvasc 11/19: BP stable, c/w current management 11/18: BP 145/89; Cont Norvasc 11/17: 150/89; cont Norvasc 11/16: BP 138/88,- cont Norvasc 11/15: BP 142/83, cont Norvasc/monitor VS 11/14:BP 146/95, cont Norvasc 11/12: BP controlled 11/11: BP 134/91, started Norvasc 5mg Daily 11/10: BP 135/90, will d/c IVF 11/09: BP 169/94- same as previous 11/08: BP 148/95, slight elevated, but mostly WNL- continue to hold Hydralazine 11/06: BP elevated 161/99; continue to monitor 11/05: BP WNL Amlodipine 10 mg POQD Hydralazine 25 mg PO BID - currently being held- BP WNL Losartan 100 mg POQD Labetalol 200 mg PO Q12H Respiratory failure on trach collar: 11/21: Trach collar at 30%FiO2, pulm following, trach care as per respiratory and nursing 11/20: no changes, pul following 11/18: Trach collar at 30% FiO2, pulm following 11/17: Pulm following, pt on 30%FiO2 via trach collar- stable 11/16: Pulm following - pt on T tube for PEG 11/15: Pulm following- cont trach collar, pulm toilet 11/14: Still tolerating trach collar off vent, pulm following 11/13: Off of vent, tolerating well. 11/11: Pulm recs- Continue weaning with trials off vent, continue nebulizer treatments 11/10: On trach collar, pulm consulted for potential weaning, mucomyst ordered for secretions 11/08: Trial pt on trach collar w/o mech vent Pulm consulted for trach weaning protocol- Leo 11/08: Trial pt on trach collar w/o mech vent 11/07: Trach collar w/CPAP 11/06: Trach in place. On mech vent s/p tracheostomy Trach tube care CPAP ABG: -10/29 pH 7.46, CO 35, O2 90, HCO3 26.0 -10/28 pH 7.46, CO2 35, O2 73, HCO3 25.9 -10/27 pH 7.49, CO2 33, O2 74, HCO3 26.5 -10/26 pH 7.5, CO2 32, O2 91, HCO3 26.6 -10/24 pH 7.47, CO2 35, O2 119, HCO3 26.5 -10/23 pH 7.47, CO2 33, O2 66, HCO3 25.5 -10/22 pH 7.52, CO2 33, O2 57, HCO3 28.1 -10/21 pH 7.48, CO2 38, O2 79, HCO3 28.5 -10/20 pH 7.46, CO2 37, O2 187 HCO3 26.9 -10/19 pH 7.46, CO2 38, O2 214, HCO3 27.4 Imaging 11/08 CXR-Tracheostomy tube in place. Other lines and tubes in stable position. Mild patchy increased markings in the right infrahilar region. Biapical pleural thickening. 11/02/CXR - repeat CXR for replacement of OGT w/Support lines tubes - normally positioned No interval pathology noted 11/02 CXR - Interval improvement in the right lower lung since the previous study. Appropriate position of the right-sided PICC line with the tip is likely at the SVC right atrium junction 11/01 CXR - The in situ tracheostomy tube and NG tube positions are as before. Mild interval prominence of the right infrahilar bronchovascular markings either due to technique or subtle interval patchy infiltrate. Clinical follow- up recommended 10/31 CXR -In situ tracheostomy tube remains in good position. NGT w/tip overlying LUQ of the abdomen unchanged. Continued improvement right lung base. 10/28 CXR No focal airspace opacity 10/27 CXR No active disease 10/26 CXR - Mild venous congestion. Right hilar prominence 10/24 CXR Mild venous congestion. Mild right infrahilar prominence 10/23 CXR - Mild venous congestion. right hilar prominence. Biapical pleural thickening upper lobe granulomatous changes. lines and tubes in stable position. 10/22 CXR - Worsening consolidative changes to right mid to lower lung zone. lines and tubes in stable position. 10/20 CXR - Distal tip of an endotracheal tube terminates approximately 4.6 cm above the brisa. Left IJ approach Central venous catheter terminates at expected location of the left innominate vein. Nasogastric tube extends to expected location of the stomach 10/19 CXR New nasogastric tube extends to distal esophagus, above the diaphragm. Repositioning is advised. ET tube unchanged. No infiltrate. 10/18 CXR ET tube proximal to brisa, no acute pulmonary pathology official read pending Head of bed to 30* Keep O2 Sat >92% Dysphagia 11/21: Pt at goal of 50cc/hr tube feeds, PEG tube in place, no drainage noted 11/19: tolerating feedings 11/18: Tube feeds to 30cc today, keep free water flushes 11/17: PEG tube placed, tube feeds to start at noon, Dietary recs- Isosource 1.5, goal rate 50ml; Free water flushes 300cc Q8H 11/16: PEG tube today, tube feeds held 11/15: PEG tube in AM per GI, told Tube feeds after MN- NPO and nursing order in 11/14: No residuals overnight, ok to increase rate to 30cc/hr, GI re-consulted for PEG tube placement 11/11: Pt w/10cc residuals- kept at rate of 20cc/hr, will consider increasing by 10cc tomorrow if no residuals 11/10: Tube feeds stable 11/09: Tube feeds at 30cc/hr, no reported residuals. Advance by 10cc per day until goal of 50cc. 11/08- OGT placed last night, position verified- ok to use OGT for tube feeds 11/07: NPO- no access to stomach 11/05: OGT removed due to possible contribution to fever/sepsis. Feeding tube via oropharynx replaced 11/02 after pt removed position verified by CXR Feeding tube via oropharynx replaced 11/01 Position verified by CXR NGT was advanced 10/20 - d/c'd Consulted GI- Dr. Renteria- PEG tube placement when not having fevers/ leukocytosis Anemia- stable 11/21: Labs from 11/20: H/H 11/34.2- stable 11/18: No labs 11/17: H/H 11.9/36.5 11/16: H/H 12.2/38.1; PT 12.9, INR 1.2, PTT 39 11/15: H/H- 11.4/35.5, FU PT/INR/PTT 11/14: H/H - 11.3/35.2 11/11: H/H- 11.1/34.8 11/10: H/H- 11.5/36.1 11/09: H/H- 12.2/39.3 11/08: H/H- 10.4/33.5 11/07: H/H- 11.1/35.8 11/06: f/u H&H, monitor 11/05-11/06: H&H low, stable, continue to monitor H&H: 12.5/40.2- stable Intracranial bleed No coagulopathy Contraindication for anticoagulation Monitor Sepsis- resolved 11/21: Per ID- ok to de-escalate Antibiotics- Vanc discontinued last week, Merrem discontinued today, will continue Diflucan until repeat Urine cx resulted - [place] catheter changed on 11/18 11/19: no changes, afebrile 11/18: Afebrile over last 24H, no labs today, per ID- de-escalate Abx- do not renew Vanc, will cont merrem over the weekend, then d/c on 11/21. Change the [place] catheter if urine cx still positive for yeast. 11/17: Afebrile over last 24H, no leukocytosis- stable, no changes 11/16: Afebrile over last 24H, no leukocytosis- stable, no changes 11/15: Afebrile over last 24H, no leukocytosis- stable FU Vanc trough at 1pm 11/15 11/14: Afebrile over last 24H, no leukocytosis 11/13: Afebrile, labs stable 11/12: Afebrile overnight, f/u am labs 11/11: Afebrile over last 24H, WBC down trending, now 12.3 from 12.6, per ID: resume vancomcyin; trough 10-15; and monitor wbc count FU sputum cxr- talked to lab- results will be available on 11/12- so far only normal kalin growing FU vanc trough on 11/12 before 3rd dose 11/10: Afebrile over last 24H, WBC down trending, no w 12.6 from 14.1, Blood cx neg x 4 D, repeat urine cxr pos for yeast 11/09: Afebrile over last 24H, WBC increased from 11.9 to 14.1; Blood/urine/ sputum cxr sent Vanc trough 8.4 Urine cxr pos for yeast Diflucan 200mg Q24H ordered ID consulted for adjustement of antibiotics/antifungals- awaiting recs 11/08: Afebrile over last 24H, WBC 11.9, Bands 3 11/07: Afebrile over last 24H, WBC 16.3, Bands 6 Trach asp pos for Gram neg rods Blood cxr neg x 48H 11/06: Continue to monitor WBC 11/05: Leukocytosis 21.8 from 19.4, 16.7 - trending up 11/05: Vanc trough - 5.1 Afebrile over last 24H -Started Vanco 1gm Q24H vanco through 11/02 - 5.1 11/01- apr work up sent: blood cxr, urine cxr, CXR, C diff stool Blood cxr neg x 48H urine cxr neg Bandemia 5 10/31- Trach asp cx - normal kalin 10/31 - Urine ([place]) cxr neg 10/25 Sputum cx: Serratia marcescens and Enterobactor aerogenes 10/21 Sputum cx: Klebsiella pneumoniae Hold change of antibiotics. Fully aware of the low grade temperature, and increase in WBCs. Patient is hemodynamically stable. IV Cefepime 1 gram Q8H Acetaminophen 650 mg Q6 PRN for fever ID following- Kathy- continue Merrem and Vanco due to aspiration and pos Enterobacter Aerogenes Per Micro- Enterobacter aerogenes sensitive to merrem cont merrem Per ID: increase vanc to 1gm Q12H, FU vanc peak and trough on 3rd dose, cont diflucan Vanc trough 13.8- Vanco held, no peak done due to high trough Muscular deconditioning due to being bed bound PT Eval and treat Monitor tracheostomy site for drainage, erythema, hematoma, signs of infection. Prophylaxis: GI - Protonix 40 mg IVP daily DVT - contraindicated 09/15 to intracranial bleed WIll re-asses VTE needs on 12/07 Dispo: Con current mgmt ID following Pulm following Cont condom catheter Cont general body care SW eval for possible LTAC after PEG placement PEG tube with tube feeding in place @ goal of 50 cc/hour per dietary Labs Q3days DW attending <Apple Vidal V - Last Filed: 11/21/16 23:03> Objective - Vital Signs/Intake and Output Vital Signs (last 24 hours): Temp Pulse Resp BP Pulse Ox 98.5 F 84 20 123/81 99 11/21/16 15:15 11/21/16 15:15 11/21/16 15:15 11/21/16 15:15 11/21/16 15:15 Intake and Output: 11/21/16 11/22/16 18:59 06:59 Intake Total 1500 Output Total 1050 Balance 450 - Medications Medications: Current Medications Acetaminophen (Tylenol 325mg Tab) 650 mg PO Q6 PRN PRN Reason: Fever >100.4 F Last Admin: 11/15/16 10:23 Dose: 650 mg Acetylcysteine (Acetylcysteine 20%) 4 ml INH Q6H [facility] Last Admin: 11/21/16 19:47 Dose: 4 ml Albuterol Sulfate (Albuterol 0.083% Inhal Kim (2.5 Mg/3 Ml) Ud) 2.5 mg INH RQ6 OMAR Last Admin: 11/21/16 19:48 Dose: 2.5 mg Amlodipine Besylate (Norvasc) 5 mg PO DAILY O[facility] Last Admin: 11/21/16 09:23 Dose: 5 mg Aspirin (Aspirin Chewable) 81 mg GT DAILY [facility] Last Admin: 11/21/16 11:12 Dose: 81 mg Fluconazole (Diflucan Iv 200 Mg/100 Ml Ns) 100 mls @ 100 mls/hr IVPB Q24H [facility] Last Admin: 11/21/16 21:55 Dose: 100 mls/hr Pantoprazole Sodium (Protonix Susp) 40 mg PO DAILY [facility] Last Admin: 11/21/16 09:23 Dose: 40 mg Saccharomyces Boulardii (Florastor) 250 mg PO BID [facility] Last Admin: 11/21/16 17:42 Dose: 250 mg - Labs Labs: 11/20/16 05:57 11/20/16 05:57 PT 12.9 SECONDS (9.7-12.2) H 11/15/16 13:58 INR 1.2 11/15/16 13:58 APTT 39 SECONDS (21-34) H 11/15/16 13:58 Attending/Attestation - Attestation I have personally seen and examined this patient.: Yes I have fully participated in the care of the patient.: Yes I have reviewed all pertinent clinical information, including history, physical exam and plan: Yes Notes (Text): Patient seen, examined, and case discussed with day-time resident. Patient is afebrile, white count has normalized. Patient is off IV abx per prior discussion with ID. Patient is on Diflucan; pending repeat urine culture to see if yeast has cleared. Discussed with neurology, patient to start baby aspirin as anti-platelet; given prior wait 4-6 week recommendation noted in prior neurology note. Patient is tolerating peg feeding. Discussed with patient's daughter at bedside , they are working to secure insurance for the patient for possible LTAC consideration. (1) Intracranial hemorrhage Assessment & Plan: 10/18 CT Head: Left basal ganglia acute hemorrhage, possibly hypertensive with associated intraventricular hemorrhage and mass effect upon the left lateral aspect of the 3rd ventricle with the tip shift of the 3rd ventricle towards the right side. No generalized midline shift. Air-fluid level in sphenoid sinus common nonspecific. Please correlate for concern regarding acute sinusitis. Mild involutional changes. 10/19 CT Head: little interval change in the known 2.0 x 2.7 acute hematoma in left thalamus with intra ventricular extension of hemorrhage. Interval mild worsening of obstructive hydrocephalus. 10/24 CT Head: little interval change in the size of left thalamic hemorrhage 2.4x2.9 cm with intraventricular extension of hemorrhage and mild obstructive hydrocephalus. 2 mm midline shift from left to right with no evidence of herniation. Near complete resolution of hemorrhage within 4th ventricle. 11/03/16 CT Head; Interval decrease in size and density left basal ganglia hematoma; well-circumscribed peripheral rim of low attentuation edema about hematoma; combination of brain edema and brain necrosis; intraventricular hemorrhage has diminished. Ventricles hae also decreased in size temporal horns and atria remain prominent. Persistent compression of the 3rd and left lateral ventricle Neurosurgery per initial consult-->patient's prognosis dismal at beginning of admission Neurology (Dr. Simpson) on board-->per 10/26 note: patient has attained maximum response from neuro point of view from this admission; keep nutritional status and avoid infectious; treat with peg/trach; no antiplatelets for next 4-6 weeks (; maintain MAP ~100) Started on baby aspirin 81mg PO daily; discussed with neurology Status: Acute (2) Hypertensive emergency Assessment & Plan: Controlled Norvasc 5mg PO daily monitor vital signs (3) Acute respiratory failure Assessment & Plan: s/p tracheostomy 10/28/16 Patient completed trach collar. Weaning completed; off ventilator Saturating well. Monitor dressing change of trach site Pulmonary (Dr. Bailey) consulted to assist with weaning protocol Mucomyst PRN to help thin out secretions Duonebs PRN shortness of breathe Status: resolved (4) CVA (cerebral vascular accident) Assessment & Plan: Hemorrhagic stroke with associated hypotension and basal ganglia involvement [id number] Cholestrol: 202, TG: LDL:130 HDL:52 Started on Aspirin 81mg PO daily Blood pressure control monitoring Start on Crestor 5mg POqHS s/p peg placement; feedings via peg started on 11/17/16; monitor for residual (5) Sepsis Per 11/05; Fever 103F and associated leukocytosis: 21.8; infection: pneumonia Infectious disease on board (Dr. Chavez) 10/21 Sputum-Klebsiella (sensitive to Maxipime) 10/25 Serratia and Enterobacter (sensitive to Maxipime) 10/31 Sputum: normal 11/06: Enterobacter which is sensitive Meropenem (switch from Maxipime) 11/06 Urine culture: yeast 11/09 Urine culture: yeast Blood cultures: 11/09: no growth for 5 days X2 Repeat sputum: normal kalin pending repeat urine culture 11/21/16 * D/c Meropenem today * Off vancomycin already * Renewed Diflucan until repeat urine culture is completed (6) Hypernatremia * Free water: 300 water Q 8hours flushes peg * sodium normalized (7) Prophylactic care * s/p peg placement * Weaned off vent; saturating well on trach * Will need PT/OT * Family trying to secure insurance for the patient and coordinate with case management * follow-up with dietary for further recommendations
[2016-11-21] MEDS: Fluconazole IV 200mg/100 ml NS 100 ML IVPB SCH (21:55)
[2016-11-22] MEDS: Acetylcysteine 20% Inhal Soln (4ml) INH SCH ×4 (01:36→19:30)
[2016-11-22] MEDS: Albuterol 0.083% Inhal Sol (2.5 mg/3 mL) UD INH SCH ×4 (01:36→19:30)
[2016-11-22] MEDS: Saccharomyces Boulardi 250 mg Cap PO SCH ×2 (11:00→17:40)
[2016-11-22] MEDS: Pantoprazole 40 mg Susp UD PO SCH (11:00)
--- NOTE | 2016-11-22 11:36 | CP.PCM.PN ---
<Marybel Taylor - Last Filed: 11/22/16 11:33> Subjective - Date & Time of Evaluation Date of Evaluation: 11/22/16 Time of Evaluation: 06:15 - Subjective Subjective: Internal medicine progress note for Hospitalist service- Marybel Taylor, PGY-1 Pt S & E at bedside. Pt resting comfortably in bed, no events over night per nursing- no residuals, pt and family member at bedside instructed on self rehab exercises as per nursing. Objective - Vital Signs/Intake and Output Vital Signs (last 24 hours): Temp Pulse Resp BP Pulse Ox 98.3 F 79 20 119/77 100 11/22/16 08:00 11/22/16 08:41 11/22/16 08:00 11/22/16 08:00 11/22/16 08:00 Intake and Output: 11/22/16 11/22/16 06:59 18:59 Intake Total 1400 Output Total 1000 Balance 400 - Medications Medications: Current Medications Acetaminophen (Tylenol 325mg Tab) 650 mg PO Q6 PRN PRN Reason: Fever >100.4 F Last Admin: 11/22/16 11:00 Dose: 650 mg Acetylcysteine (Acetylcysteine 20%) 4 ml INH Q6H [facility] Last Admin: 11/22/16 07:34 Dose: 4 ml Albuterol Sulfate (Albuterol 0.083% Inhal Kim (2.5 Mg/3 Ml) Ud) 2.5 mg INH RQ6 [facility] Last Admin: 11/22/16 07:34 Dose: 2.5 mg Amlodipine Besylate (Norvasc) 5 mg PO DAILY [facility] Last Admin: 11/22/16 11:00 Dose: 5 mg Aspirin (Aspirin Chewable) 81 mg GT DAILY [facility] Last Admin: 11/22/16 11:00 Dose: 81 mg Fluconazole (Diflucan Iv 200 Mg/100 Ml Ns) 100 mls @ 100 mls/hr IVPB Q24H [facility] Last Admin: 11/21/16 21:55 Dose: 100 mls/hr Pantoprazole Sodium (Protonix Susp) 40 mg PO DAILY [facility] Last Admin: 11/22/16 11:00 Dose: 40 mg Rosuvastatin Calcium (Crestor) 5 mg GT HS [facility] Saccharomyces Boulardii (Florastor) 250 mg PO BID [facility] Last Admin: 11/22/16 11:00 Dose: 250 mg - Labs Labs: 11/20/16 05:57 11/20/16 05:57 PT 12.9 SECONDS (9.7-12.2) H 11/15/16 13:58 INR 1.2 11/15/16 13:58 APTT 39 SECONDS (21-34) H 11/15/16 13:58 - Constitutional Appears: Non-toxic, No Acute Distress, Cachectic - Head Exam Head Exam: ATRAUMATIC, NORMAL INSPECTION, NORMOCEPHALIC - Eye Exam Eye Exam: EOMI, Normal appearance, PERRL Pupil Exam: NORMAL ACCOMODATION - ENT Exam ENT Exam: Mucous Membranes Moist, Normal Exam - Neck Exam Neck Exam: Normal Inspection. absent: Full ROM (does not turn head to right) Additional comments: trach collar in place - Respiratory Exam Respiratory Exam: Clear to Ausculation Bilateral, NORMAL BREATHING PATTERN. absent: Accessory Muscle Use, Chest Wall Tenderness, Rales, Rhonchi, Wheezes, Respiratory Distress, Stridor - Cardiovascular Exam Cardiovascular Exam: REGULAR RHYTHM, +S1, +S2 - GI/Abdominal Exam GI & Abdominal Exam: Soft, Normal Bowel Sounds. absent: Tenderness Additional comments: PEG tube in place, dressing C/D/I - Extremities Exam Extremities Exam: Normal Inspection. absent: Full ROM (Does not move Right side ), Pedal Edema - Neurological Exam Neurological Exam: Alert, Awake Additional comments: Non verbal - Psychiatric Exam Additional comments: Non verbal - Skin Skin Exam: Dry, Intact, Normal Color, Warm Assessment and Plan - Assessment and Plan (Free Text) Assessment: 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 11/22: Trach collar in place, no secretions audible this morning, cont ASA daily 11/21: Trach collar in place, secretions audible- nursing notified; ASA 81 mg daily started as per neuro 11/19: Minimal secretions at trach, stable 11/18: Trach collar in place, stable 11/17: On trach collar, stable, lots of secretions 11/16: Stable on trach collar, no changes 11/15: Stable, no changes, trach collar in place 11/14: trach collar in place 11/13: Pt still with secretions, respiratory informed and will address 11/11: Secretions continued, started duonebs and mucomyst, informed nursing to do trach care and suctioning 11/10: Pt with audible secretions on trach collar- nursing informed, OGT in place 11/09: Pt resting comfortably in bed, trach to trach collar- tolerating w/some secretions as per respiratory, OGT In place 11/08: Resting comfortably, trach in place, OGT in place, does not 11/07: Resting comfortably, trach in place 11/06: Trach in place, resting comfortably. Follows simple commands to protrude tongue and move L arm 11/05: did not follow simple commands 11/04: Continues to follows simple commands in [place] Neurology consult - Dr. Simpson advise to schedule trach and PEG. Hold antiplatelets for 4-6 weeks and maintain blood pressure above 100 systolic. Sedation as needed 10/24 CT Head: little interval change in the size of left thalamic hemorrhage 2.4x2.9 cm with intraventricular extension of hemorrhage and mild obstructive hydrocephalus. 2 mm midline shift from left to right with no evidence of herniation. Near complete resolution of hemorrhage within 4th ventricle. 10/19 CT Head: little interval change in the known 2.0 x 2.7 acute hematoma in left thalamus with intra ventricular extension of hemorrhage. Interval mild worsening of obstructive hydrocephalus. 10/18 CT Head: Left basal ganglia acute hemorrhage, possibly hypertensive with associated intraventricular hemorrhage and mass effect upon the left lateral aspect of the 3rd ventricle with the tip shift of the 3rd ventricle towards the right side. No generalized midline shift. Air-fluid level in sphenoid sinus common nonspecific. Please correlate for concern regarding acute sinusitis. Mild involutional changes. GCS - 8T (E4 VT M4) [place] II 10.0, 12% estimated non-operative mortality 11/03- CT brain w/o cont for re-evaluation of bleed w/findings of Interval decrease in size and density left basal ganglia hematoma however well- circumscribed peripheral rim of low-attenuation edema about the hematoma likely represent some combination of brain edema as well as of brain necrosis. Intraventricular hemorrhage has diminished. Ventricles have also decreased in size though the temporal horns and atria remain prominent compared to the compressed remaining ventricular system. There is persistent compression of the 3rd and left lateral ventricle Chronic white matter and basal nuclei ischemic changes. December 07- reassess pt need for anticoagulation with neurology HTN: 11/22: BP 118/78, cont Norvasc/monitor 11/21: BP 128/89, cont Norvasc 11/19: BP stable, c/w current management 11/18: BP 145/89; Cont Norvasc 11/17: 150/89; cont Norvasc 11/16: BP 138/88,- cont Norvasc 11/15: BP 142/83, cont Norvasc/monitor VS 11/14:BP 146/95, cont Norvasc 11/12: BP controlled 11/11: BP 134/91, started Norvasc 5mg Daily 11/10: BP 135/90, will d/c IVF 11/09: BP 169/94- same as previous 11/08: BP 148/95, slight elevated, but mostly WNL- continue to hold Hydralazine 11/06: BP elevated 161/99; continue to monitor 11/05: BP WNL Amlodipine 10 mg POQD Hydralazine 25 mg PO BID - currently being held- BP WNL Losartan 100 mg POQD Labetalol 200 mg PO Q12H Respiratory failure on trach collar: 11/22: TC in place, care as per respiratory, nursing, pulm following 11/21: Trach collar at 30%FiO2, pulm following, trach care as per respiratory and nursing 11/20: no changes, pul following 11/18: Trach collar at 30% FiO2, pulm following 11/17: Pulm following, pt on 30%FiO2 via trach collar- stable 11/16: Pulm following - pt on T tube for PEG 11/15: Pulm following- cont trach collar, pulm toilet 11/14: Still tolerating trach collar off vent, pulm following 11/13: Off of vent, tolerating well. 11/11: Pulm recs- Continue weaning with trials off vent, continue nebulizer treatments 11/10: On trach collar, pulm consulted for potential weaning, mucomyst ordered for secretions 11/08: Trial pt on trach collar w/o mech vent Pulm consulted for trach weaning protocol- Leo 11/08: Trial pt on trach collar w/o mech vent 11/07: Trach collar w/CPAP 11/06: Trach in place. On mech vent s/p tracheostomy Trach tube care CPAP ABG: -10/29 pH 7.46, CO 35, O2 90, HCO3 26.0 -10/28 pH 7.46, CO2 35, O2 73, HCO3 25.9 -10/27 pH 7.49, CO2 33, O2 74, HCO3 26.5 -10/26 pH 7.5, CO2 32, O2 91, HCO3 26.6 -10/24 pH 7.47, CO2 35, O2 119, HCO3 26.5 -10/23 pH 7.47, CO2 33, O2 66, HCO3 25.5 -10/22 pH 7.52, CO2 33, O2 57, HCO3 28.1 -10/21 pH 7.48, CO2 38, O2 79, HCO3 28.5 -10/20 pH 7.46, CO2 37, O2 187 HCO3 26.9 -10/19 pH 7.46, CO2 38, O2 214, HCO3 27.4 Imaging 11/08 CXR-Tracheostomy tube in place. Other lines and tubes in stable position. Mild patchy increased markings in the right infrahilar region. Biapical pleural thickening. 11/02/CXR - repeat CXR for replacement of OGT w/Support lines tubes - normally positioned No interval pathology noted 11/02 CXR - Interval improvement in the right lower lung since the previous study. Appropriate position of the right-sided PICC line with the tip is likely at the SVC right atrium junction 11/01 CXR - The in situ tracheostomy tube and NG tube positions are as before. Mild interval prominence of the right infrahilar bronchovascular markings either due to technique or subtle interval patchy infiltrate. Clinical follow- up recommended 10/31 CXR -In situ tracheostomy tube remains in good position. NGT w/tip overlying LUQ of the abdomen unchanged. Continued improvement right lung base. 10/28 CXR No focal airspace opacity 10/27 CXR No active disease 10/26 CXR - Mild venous congestion. Right hilar prominence 10/24 CXR Mild venous congestion. Mild right infrahilar prominence 10/23 CXR - Mild venous congestion. right hilar prominence. Biapical pleural thickening upper lobe granulomatous changes. lines and tubes in stable position. 10/22 CXR - Worsening consolidative changes to right mid to lower lung zone. lines and tubes in stable position. 10/20 CXR - Distal tip of an endotracheal tube terminates approximately 4.6 cm above the brisa. Left IJ approach Central venous catheter terminates at expected location of the left innominate vein. Nasogastric tube extends to expected location of the stomach 10/19 CXR New nasogastric tube extends to distal esophagus, above the diaphragm. Repositioning is advised. ET tube unchanged. No infiltrate. 10/18 CXR ET tube proximal to brisa, no acute pulmonary pathology official read pending Head of bed to 30* Keep O2 Sat >92% Dysphagia 11/22: No residuals, dietary reconsulted for recs 11/21: Pt at goal of 50cc/hr tube feeds, PEG tube in place, no drainage noted 11/19: tolerating feedings 11/18: Tube feeds to 30cc today, keep free water flushes 11/17: PEG tube placed, tube feeds to start at noon, Dietary recs- Isosource 1.5, goal rate 50ml; Free water flushes 300cc Q8H 11/16: PEG tube today, tube feeds held 11/15: PEG tube in AM per GI, told Tube feeds after MN- NPO and nursing order in 11/14: No residuals overnight, ok to increase rate to 30cc/hr, GI re-consulted for PEG tube placement 11/11: Pt w/10cc residuals- kept at rate of 20cc/hr, will consider increasing by 10cc tomorrow if no residuals 11/10: Tube feeds stable 11/09: Tube feeds at 30cc/hr, no reported residuals. Advance by 10cc per day until goal of 50cc. 11/08- OGT placed last night, position verified- ok to use OGT for tube feeds 11/07: NPO- no access to stomach 11/05: OGT removed due to possible contribution to fever/sepsis. Feeding tube via oropharynx replaced 11/02 after pt removed position verified by CXR Feeding tube via oropharynx replaced 11/01 Position verified by CXR NGT was advanced 10/20 - d/c'd Consulted GI- Dr. Renteria- PEG tube placement when not having fevers/ leukocytosis Anemia- stable 11/22: No labs today 11/21: Labs from 11/20: H/H 11/34.2- stable 11/18: No labs 11/17: H/H 11.9/36.5 11/16: H/H 12.2/38.1; PT 12.9, INR 1.2, PTT 39 11/15: H/H- 11.4/35.5, FU PT/INR/PTT 11/14: H/H - 11.3/35.2 11/11: H/H- 11.1/34.8 11/10: H/H- 11.5/36.1 11/09: H/H- 12.2/39.3 11/08: H/H- 10.4/33.5 11/07: H/H- 11.1/35.8 11/06: f/u H&H, monitor 11/05-11/06: H&H low, stable, continue to monitor H&H: 12.5/40.2- stable Intracranial bleed No coagulopathy Contraindication for anticoagulation Monitor Sepsis- resolved 11/22: FU urine cx- if negative, will d/c Diflucan. Pt off Merrem and vanc. 11/21: Per ID- ok to de-escalate Antibiotics- Vanc discontinued last week, Merrem discontinued today, will continue Diflucan until repeat Urine cx resulted - [place] catheter changed on 11/18 11/19: no changes, afebrile 11/18: Afebrile over last 24H, no labs today, per ID- de-escalate Abx- do not renew Vanc, will cont merrem over the weekend, then d/c on 11/21. Change the [place] catheter if urine cx still positive for yeast. 11/17: Afebrile over last 24H, no leukocytosis- stable, no changes 11/16: Afebrile over last 24H, no leukocytosis- stable, no changes 11/15: Afebrile over last 24H, no leukocytosis- stable FU Vanc trough at 1pm 11/15 11/14: Afebrile over last 24H, no leukocytosis 11/13: Afebrile, labs stable 11/12: Afebrile overnight, f/u am labs 11/11: Afebrile over last 24H, WBC down trending, now 12.3 from 12.6, per ID: resume vancomcyin; trough 10-15; and monitor wbc count FU sputum cxr- talked to lab- results will be available on 11/12- so far only normal kalin growing FU vanc trough on 11/12 before 3rd dose 11/10: Afebrile over last 24H, WBC down trending, no w 12.6 from 14.1, Blood cx neg x 4 D, repeat urine cxr pos for yeast 11/09: Afebrile over last 24H, WBC increased from 11.9 to 14.1; Blood/urine/ sputum cxr sent Vanc trough 8.4 Urine cxr pos for yeast Diflucan 200mg Q24H ordered ID consulted for adjustement of antibiotics/antifungals- awaiting recs 11/08: Afebrile over last 24H, WBC 11.9, Bands 3 11/07: Afebrile over last 24H, WBC 16.3, Bands 6 Trach asp pos for Gram neg rods Blood cxr neg x 48H 11/06: Continue to monitor WBC 11/05: Leukocytosis 21.8 from 19.4, 16.7 - trending up 11/05: Vanc trough - 5.1 Afebrile over last 24H -Started Vanco 1gm Q24H vanco through 11/02 - 5.1 11/01- apr work up sent: blood cxr, urine cxr, CXR, C diff stool Blood cxr neg x 48H urine cxr neg Bandemia 5 10/31- Trach asp cx - normal kalin 10/31 - Urine ([place]) cxr neg 10/25 Sputum cx: Serratia marcescens and Enterobactor aerogenes 10/21 Sputum cx: Klebsiella pneumoniae Hold change of antibiotics. Fully aware of the low grade temperature, and increase in WBCs. Patient is hemodynamically stable. IV Cefepime 1 gram Q8H Acetaminophen 650 mg Q6 PRN for fever ID following- Kathy- continue Merrem and Vanco due to aspiration and pos Enterobacter Aerogenes Per Micro- Enterobacter aerogenes sensitive to merrem cont merrem Per ID: increase vanc to 1gm Q12H, FU vanc peak and trough on 3rd dose, cont diflucan Vanc trough 13.8- Vanco held, no peak done due to high trough Muscular deconditioning due to being bed bound PT/OT to work with pt Pt and family member at bedside instructed on self-rehab exercises Monitor tracheostomy site for drainage, erythema, hematoma, signs of infection. Prophylaxis: GI - Protonix 40 mg IVP daily DVT - contraindicated 09/15 to intracranial bleed WIll re-asses VTE needs on 12/07 Dispo: Con current mgmt ID following Pulm following Cont condom catheter Cont general body care SW eval for possible LTAC after PEG placement PEG tube with tube feeding in place @ goal of 50 cc/hour per dietary Labs Q3days PT/OT Dietary re-evaluation for nutritional requirements, possible supplements DW attending <Apple Vidal V - Last Filed: 11/22/16 17:45> Objective - Vital Signs/Intake and Output Vital Signs (last 24 hours): Temp Pulse Resp BP Pulse Ox 98.4 F 80 20 125/71 100 11/22/16 16:00 11/22/16 16:13 11/22/16 16:00 11/22/16 16:00 11/22/16 16:00 Intake and Output: 11/22/16 11/22/16 06:59 18:59 Intake Total 1400 Output Total 1000 600 Balance 400 -600 - Medications Medications: Current Medications Acetaminophen (Tylenol 325mg Tab) 650 mg PO Q6 PRN PRN Reason: Fever >100.4 F Last Admin: 11/22/16 11:00 Dose: 650 mg Acetylcysteine (Acetylcysteine 20%) 4 ml INH Q6H [facility] Last Admin: 11/22/16 13:51 Dose: 4 ml Albuterol Sulfate (Albuterol 0.083% Inhal Kim (2.5 Mg/3 Ml) Ud) 2.5 mg INH RQ6 [facility] Last Admin: 11/22/16 13:51 Dose: 2.5 mg Amlodipine Besylate (Norvasc) 5 mg PO DAILY [facility] Last Admin: 11/22/16 11:00 Dose: 5 mg Aspirin (Aspirin Chewable) 81 mg GT DAILY [facility] Last Admin: 11/22/16 11:00 Dose: 81 mg Fluconazole (Diflucan Iv 200 Mg/100 Ml Ns) 100 mls @ 100 mls/hr IVPB Q24H [facility] Last Admin: 11/21/16 21:55 Dose: 100 mls/hr Pantoprazole Sodium (Protonix Susp) 40 mg PO DAILY [facility] Last Admin: 11/22/16 11:00 Dose: 40 mg Rosuvastatin Calcium (Crestor) 5 mg GT HS [facility] Saccharomyces Boulardii (Florastor) 250 mg PO BID [facility] Last Admin: 11/22/16 11:00 Dose: 250 mg - Labs Labs: 11/20/16 05:57 11/20/16 05:57 PT 12.9 SECONDS (9.7-12.2) H 11/15/16 13:58 INR 1.2 11/15/16 13:58 APTT 39 SECONDS (21-34) H 11/15/16 13:58 Attending/Attestation - Attestation I have personally seen and examined this patient.: Yes I have fully participated in the care of the patient.: Yes I have reviewed all pertinent clinical information, including history, physical exam and plan: Yes Notes (Text): Patient seen, examined, and case discussed with day-time resident. Patient seen at bedside with daughter, patient attempting his own version of physical therapy by pulling his right arm. Pending repeat urine culture result to determine if discontinue Diflucan. No new events. Family attempting to secure patient for insurance; and hopefully will be able to establish shelter care facility or LTAC for the patient if this is accomplished. Reconsult PT/OT (1) Intracranial hemorrhage Assessment & Plan: 10/18 CT Head: Left basal ganglia acute hemorrhage, possibly hypertensive with associated intraventricular hemorrhage and mass effect upon the left lateral aspect of the 3rd ventricle with the tip shift of the 3rd ventricle towards the right side. No generalized midline shift. Air-fluid level in sphenoid sinus common nonspecific. Please correlate for concern regarding acute sinusitis. Mild involutional changes. 10/19 CT Head: little interval change in the known 2.0 x 2.7 acute hematoma in left thalamus with intra ventricular extension of hemorrhage. Interval mild worsening of obstructive hydrocephalus. 10/24 CT Head: little interval change in the size of left thalamic hemorrhage 2.4x2.9 cm with intraventricular extension of hemorrhage and mild obstructive hydrocephalus. 2 mm midline shift from left to right with no evidence of herniation. Near complete resolution of hemorrhage within 4th ventricle. 11/03/16 CT Head; Interval decrease in size and density left basal ganglia hematoma; well-circumscribed peripheral rim of low attentuation edema about hematoma; combination of brain edema and brain necrosis; intraventricular hemorrhage has diminished. Ventricles hae also decreased in size temporal horns and atria remain prominent. Persistent compression of the 3rd and left lateral ventricle Neurosurgery per initial consult-->patient's prognosis dismal at beginning of admission Neurology (Dr. Simpson) on board-->per 10/26 note: patient has attained maximum response from neuro point of view from this admission; keep nutritional status and avoid infectious; treat with peg/trach; no antiplatelets for next 4-6 weeks (; maintain MAP ~100) On baby aspirin 81mg PO daily; discussed with neurology with 11/22/16 Status: Acute (2) Hypertensive emergency Assessment & Plan: Controlled Norvasc 5mg PO daily monitor vital signs (3) Acute respiratory failure Assessment & Plan: s/p tracheostomy 10/28/16 Patient completed trach collar. Weaning completed; off ventilator Saturating well. Monitor dressing change of trach site Pulmonary (Dr. Bailey) consulted to assist with weaning protocol Mucomyst PRN to help thin out secretions Duonebs PRN shortness of breathe Status: resolved (4) CVA (cerebral vascular accident) Assessment & Plan: Hemorrhagic stroke with associated hypotension and basal ganglia involvement [id number] Cholestrol: 202, TG: LDL:130 HDL:52 Started on Aspirin 81mg PO daily Blood pressure control monitoring Start on Crestor 5mg POqHS s/p peg placement; feedings via peg started on 11/17/16; monitor for residual [place] referral for any further recommendations (5) Sepsis Per 11/05; Fever 103F and associated leukocytosis: 21.8; infection: pneumonia Infectious disease on board (Dr. Chavez) 10/21 Sputum-Klebsiella (sensitive to Maxipime) 10/25 Serratia and Enterobacter (sensitive to Maxipime) 10/31 Sputum: normal 11/06: Enterobacter which is sensitive Meropenem (switch from Maxipime) 11/06 Urine culture: yeast 11/09 Urine culture: yeast Blood cultures: 11/09: no growth for 5 days X2 Repeat sputum: normal kalin pending repeat urine culture 11/21/16 * D/c Meropenem 11/22/16 * Renewed Diflucan until repeat urine culture is completed (6) Hypernatremia * Free water: 300 water Q 8hours flushes peg * sodium normalized (7) Prophylactic care * s/p peg placement * Weaned off vent; saturating well on trach * Will need PT/OT * Family trying to secure insurance for the patient and coordinate with case management * follow-up with dietary for further recommendations * on peg feedings/fluid flushes
[2016-11-22] MEDS: Fluconazole IV 200mg/100 ml NS 100 ML IVPB SCH (20:00)
[2016-11-23] MEDS: Albuterol 0.083% Inhal Sol (2.5 mg/3 mL) UD INH SCH ×4 (01:02→19:39)
[2016-11-23] MEDS: Acetylcysteine 20% Inhal Soln (4ml) INH SCH ×4 (01:02→19:39)
[2016-11-23 07:24] LABS: BASO % 0.5 % (0.0-2.0); EOS # 0.5 K/uL (0.0-0.7); EOS % 5.8 % (0.0-4.0); HEMATOCRIT 33.3 % (35.0-51.0); LYMPH # 1.5 K/uL (1.0-4.3); LYMPH % 18.6 % (20.0-40.0); MEAN CELL VOLUME 81.1 fL (80.0-94.0); MEAN CORPUSCULAR HEMOGLOBIN 26.2 pg (27.0-31.0); MEAN CORPUSCULAR HGB CONC 32.3 g/dL (33.0-37.0); MEAN PLATELET VOLUME 8.9 fL (7.2-11.7); MONO # 0.5 K/uL (0.0-0.8); MONO % 6.7 % (0.0-10.0); RED CELL DISTRIBUTION WIDTH 13.8 % (11.5-14.5); WHITE BLOOD COUNT 7.9 K/uL (4.8-10.8)
[2016-11-23 07:45] LABS: CHLORIDE 93 mmol/L (98-107); SODIUM 135 mmol/L (132-148)
[2016-11-23 07:46] LABS: POTASSIUM 4.3 mmol/L (3.6-5.2)
[2016-11-23 07:47] LABS: GFR AFRICAN-AMERICAN > 60
[2016-11-23 07:48] LABS: ALB/GLOB RATIO 0.8 (1.0-2.1); ALKALINE PHOSPHATASE 107 U/L (38-126); ALT/SGPT 38 U/L (21-72); AST/SGOT 29 U/L (17-59); BILIRUBIN,TOTAL 0.3 mg/dL (0.2-1.3); BLOOD UREA NITROGEN 23 mg/dL (9-20); CARBON DIOXIDE 31 mmol/L (22-30); GLUCOSE,RANDOM 90 mg/dL (75-110); PHOSPHOROUS 3.8 mg/dL (2.5-4.5); TOTAL PROTEIN 6.5 g/dL (6.3-8.3)
[2016-11-23 07:49] LABS: CALCIUM 8.6 mg/dl (8.6-10.4)
[2016-11-23] MEDS: Pantoprazole 40 mg Susp UD PO SCH (10:45)
[2016-11-23] MEDS: Saccharomyces Boulardi 250 mg Cap PO SCH ×2 (10:46→17:51)
--- NOTE | 2016-11-23 14:30 | CP.PCM.PN ---
<Marybel Taylor - Last Filed: 11/23/16 14:27> Subjective - Date & Time of Evaluation Date of Evaluation: 11/23/16 Time of Evaluation: 06:20 - Subjective Subjective: Internal medicine progress note for Hospitalist service- Marybel Taylor, PGY-1 Pt S & E at bedside. Pt resting comfortably in bed, no events over night per nursing- no residuals, pt tolerating goal of 60cc tube feeds/hr. Stable. Objective - Vital Signs/Intake and Output Vital Signs (last 24 hours): Temp Pulse Resp BP Pulse Ox 97.9 F 74 20 122/81 100 11/23/16 08:00 11/23/16 08:01 11/23/16 08:00 11/23/16 08:00 11/23/16 08:00 Intake and Output: 11/23/16 11/23/16 06:59 18:59 Intake Total 1660 Output Total 875 Balance 785 - Medications Medications: Current Medications Acetaminophen (Tylenol 325mg Tab) 650 mg PO Q6 PRN PRN Reason: Fever >100.4 F Last Admin: 11/23/16 10:45 Dose: 650 mg Acetylcysteine (Acetylcysteine 20%) 4 ml INH Q6H [facility] Last Admin: 11/23/16 13:34 Dose: 4 ml Albuterol Sulfate (Albuterol 0.083% Inhal Kim (2.5 Mg/3 Ml) Ud) 2.5 mg INH RQ6 [facility] Last Admin: 11/23/16 13:34 Dose: 2.5 mg Amlodipine Besylate (Norvasc) 5 mg PO DAILY [facility] Last Admin: 11/23/16 10:45 Dose: 5 mg Aspirin (Aspirin Chewable) 81 mg GT DAILY [facility] Last Admin: 11/23/16 10:45 Dose: 81 mg Fluconazole (Diflucan Iv 200 Mg/100 Ml Ns) 100 mls @ 100 mls/hr IVPB Q24H [facility] Last Admin: 11/22/16 20:00 Dose: 100 mls/hr Pantoprazole Sodium (Protonix Susp) 40 mg PO DAILY [facility] Last Admin: 11/23/16 10:45 Dose: 40 mg Rosuvastatin Calcium (Crestor) 5 mg GT HS [facility] Last Admin: 11/22/16 21:39 Dose: 5 mg Saccharomyces Boulardii (Florastor) 250 mg PO BID [facility] Last Admin: 11/23/16 10:46 Dose: 250 mg - Labs Labs: 11/23/16 07:15 11/23/16 07:15 PT 12.9 SECONDS (9.7-12.2) H 11/15/16 13:58 INR 1.2 11/15/16 13:58 APTT 39 SECONDS (21-34) H 11/15/16 13:58 - Constitutional Appears: Non-toxic, No Acute Distress, Cachectic - Head Exam Head Exam: ATRAUMATIC, NORMAL INSPECTION, NORMOCEPHALIC - Eye Exam Eye Exam: EOMI, Normal appearance, PERRL Pupil Exam: NORMAL ACCOMODATION, PERRL - ENT Exam ENT Exam: Mucous Membranes Moist, Normal Exam - Neck Exam Neck Exam: absent: Full ROM (looks to left, can't turn head to right) Additional comments: trach collar in place, audible secretions - Respiratory Exam Respiratory Exam: Clear to Ausculation Bilateral, NORMAL BREATHING PATTERN. absent: Rales, Rhonchi, Wheezes, Stridor - Cardiovascular Exam Cardiovascular Exam: REGULAR RHYTHM, +S1, +S2 - GI/Abdominal Exam GI & Abdominal Exam: Soft, Normal Bowel Sounds. 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 11/23: Stable, trach collar care as per nursing, continues with copious secretions 11/22: Trach collar in place, no secretions audible this morning, cont ASA daily 11/21: Trach collar in place, secretions audible- nursing notified; ASA 81 mg daily started as per neuro 11/19: Minimal secretions at trach, stable 11/18: Trach collar in place, stable 11/17: On trach collar, stable, lots of secretions 11/16: Stable on trach collar, no changes 11/15: Stable, no changes, trach collar in place 11/14: trach collar in place 11/13: Pt still with secretions, respiratory informed and will address 11/11: Secretions continued, started duonebs and mucomyst, informed nursing to do trach care and suctioning 11/10: Pt with audible secretions on trach collar- nursing informed, OGT in place 11/09: Pt resting comfortably in bed, trach to trach collar- tolerating w/some secretions as per respiratory, OGT In place 11/08: Resting comfortably, trach in place, OGT in place, does not 11/07: Resting comfortably, trach in place 11/06: Trach in place, resting comfortably. Follows simple commands to protrude tongue and move L arm 11/05: did not follow simple commands 11/04: Continues to follows simple commands in [place] Neurology consult - Dr. Simpson advise to schedule trach and PEG. Hold antiplatelets for 4-6 weeks and maintain blood pressure above 100 systolic. Sedation as needed 10/24 CT Head: little interval change in the size of left thalamic hemorrhage 2.4x2.9 cm with intraventricular extension of hemorrhage and mild obstructive hydrocephalus. 2 mm midline shift from left to right with no evidence of herniation. Near complete resolution of hemorrhage within 4th ventricle. 10/19 CT Head: little interval change in the known 2.0 x 2.7 acute hematoma in left thalamus with intra ventricular extension of hemorrhage. Interval mild worsening of obstructive hydrocephalus. 10/18 CT Head: Left basal ganglia acute hemorrhage, possibly hypertensive with associated intraventricular hemorrhage and mass effect upon the left lateral aspect of the 3rd ventricle with the tip shift of the 3rd ventricle towards the right side. No generalized midline shift. Air-fluid level in sphenoid sinus common nonspecific. Please correlate for concern regarding acute sinusitis. Mild involutional changes. GCS - 8T (E4 VT M4) NULATO II 10.0, 12% estimated non-operative mortality 11/03- CT brain w/o cont for re-evaluation of bleed w/findings of Interval decrease in size and density left basal ganglia hematoma however well- circumscribed peripheral rim of low-attenuation edema about the hematoma likely represent some combination of brain edema as well as of brain necrosis. Intraventricular hemorrhage has diminished. Ventricles have also decreased in size though the temporal horns and atria remain prominent compared to the compressed remaining ventricular system. There is persistent compression of the 3rd and left lateral ventricle Chronic white matter and basal nuclei ischemic changes. December 07- reassess pt need for anticoagulation with neurology HTN: 11/23: 126/78m cont Norvasc 11/22: BP 118/78, cont Norvasc/monitor 11/21: BP 128/89, cont Norvasc 11/19: BP stable, c/w current management 11/18: BP 145/89; Cont Norvasc 11/17: 150/89; cont Norvasc 11/16: BP 138/88,- cont Norvasc 11/15: BP 142/83, cont Norvasc/monitor VS 11/14:BP 146/95, cont Norvasc 11/12: BP controlled 11/11: BP 134/91, started Norvasc 5mg Daily 11/10: BP 135/90, will d/c IVF 11/09: BP 169/94- same as previous 11/08: BP 148/95, slight elevated, but mostly WNL- continue to hold Hydralazine 11/06: BP elevated 161/99; continue to monitor 11/05: BP WNL Amlodipine 10 mg POQD Hydralazine 25 mg PO BID - currently being held- BP WNL Losartan 100 mg POQD Labetalol 200 mg PO Q12H Respiratory failure on trach collar: 11/23: Trach collar in place, pt tolerating, pulm following 11/22: TC in place, care as per respiratory, nursing, pulm following 11/21: Trach collar at 30%FiO2, pulm following, trach care as per respiratory and nursing 11/20: no changes, pul following 11/18: Trach collar at 30% FiO2, pulm following 11/17: Pulm following, pt on 30%FiO2 via trach collar- stable 11/16: Pulm following - pt on T tube for PEG 11/15: Pulm following- cont trach collar, pulm toilet 11/14: Still tolerating trach collar off vent, pulm following 11/13: Off of vent, tolerating well. 11/11: Pulm recs- Continue weaning with trials off vent, continue nebulizer treatments 11/10: On trach collar, pulm consulted for potential weaning, mucomyst ordered for secretions 11/08: Trial pt on trach collar w/o mech vent Pulm consulted for trach weaning protocol- Leo 11/08: Trial pt on trach collar w/o mech vent 11/07: Trach collar w/CPAP 11/06: Trach in place. On mech vent s/p tracheostomy Trach tube care CPAP ABG: -10/29 pH 7.46, CO 35, O2 90, HCO3 26.0 -10/28 pH 7.46, CO2 35, O2 73, HCO3 25.9 -10/27 pH 7.49, CO2 33, O2 74, HCO3 26.5 -10/26 pH 7.5, CO2 32, O2 91, HCO3 26.6 -10/24 pH 7.47, CO2 35, O2 119, HCO3 26.5 -10/23 pH 7.47, CO2 33, O2 66, HCO3 25.5 -10/22 pH 7.52, CO2 33, O2 57, HCO3 28.1 -10/21 pH 7.48, CO2 38, O2 79, HCO3 28.5 -10/20 pH 7.46, CO2 37, O2 187 HCO3 26.9 -10/19 pH 7.46, CO2 38, O2 214, HCO3 27.4 Imaging 11/08 CXR-Tracheostomy tube in place. Other lines and tubes in stable position. Mild patchy increased markings in the right infrahilar region. Biapical pleural thickening. 11/02/CXR - repeat CXR for replacement of OGT w/Support lines tubes - normally positioned No interval pathology noted 11/02 CXR - Interval improvement in the right lower lung since the previous study. Appropriate position of the right-sided PICC line with the tip is likely at the SVC right atrium junction 11/01 CXR - The in situ tracheostomy tube and NG tube positions are as before. Mild interval prominence of the right infrahilar bronchovascular markings either due to technique or subtle interval patchy infiltrate. Clinical follow- up recommended 10/31 CXR -In situ tracheostomy tube remains in good position. NGT w/tip overlying LUQ of the abdomen unchanged. Continued improvement right lung base. 10/28 CXR No focal airspace opacity 10/27 CXR No active disease 10/26 CXR - Mild venous congestion. Right hilar prominence 10/24 CXR Mild venous congestion. Mild right infrahilar prominence 10/23 CXR - Mild venous congestion. right hilar prominence. Biapical pleural thickening upper lobe granulomatous changes. lines and tubes in stable position. 10/22 CXR - Worsening consolidative changes to right mid to lower lung zone. lines and tubes in stable position. 10/20 CXR - Distal tip of an endotracheal tube terminates approximately 4.6 cm above the brisa. Left IJ approach Central venous catheter terminates at expected location of the left innominate vein. Nasogastric tube extends to expected location of the stomach 10/19 CXR New nasogastric tube extends to distal esophagus, above the diaphragm. Repositioning is advised. ET tube unchanged. No infiltrate. 10/18 CXR ET tube proximal to brisa, no acute pulmonary pathology official read pending Head of bed to 30* Keep O2 Sat >92% Dysphagia 11/23: Dietary recs for goal of 60cc/hr tube feeds, pt tolerating new goal, no residuals. PEG tube in place. 11/22: No residuals, dietary reconsulted for recs 11/21: Pt at goal of 50cc/hr tube feeds, PEG tube in place, no drainage noted 11/19: tolerating feedings 11/18: Tube feeds to 30cc today, keep free water flushes 11/17: PEG tube placed, tube feeds to start at noon, Dietary recs- Isosource 1.5, goal rate 50ml; Free water flushes 300cc Q8H 11/16: PEG tube today, tube feeds held 11/15: PEG tube in AM per GI, told Tube feeds after MN- NPO and nursing order in 11/14: No residuals overnight, ok to increase rate to 30cc/hr, GI re-consulted for PEG tube placement 11/11: Pt w/10cc residuals- kept at rate of 20cc/hr, will consider increasing by 10cc tomorrow if no residuals 11/10: Tube feeds stable 11/09: Tube feeds at 30cc/hr, no reported residuals. Advance by 10cc per day until goal of 50cc. 11/08- OGT placed last night, position verified- ok to use OGT for tube feeds 11/07: NPO- no access to stomach 11/05: OGT removed due to possible contribution to fever/sepsis. Feeding tube via oropharynx replaced 11/02 after pt removed position verified by CXR Feeding tube via oropharynx replaced 11/01 Position verified by CXR NGT was advanced 10/20 - d/c'd Consulted GI- Dr. Renteria- PEG tube placement when not having fevers/ leukocytosis Anemia- stable 11/23: H/H 10.8/33.3 11/22: No labs today 11/21: Labs from 11/20: H/H 11/34.2- stable 11/18: No labs 11/17: H/H 11.9/36.5 11/16: H/H 12.2/38.1; PT 12.9, INR 1.2, PTT 39 11/15: H/H- 11.4/35.5, FU PT/INR/PTT 11/14: H/H - 11.3/35.2 11/11: H/H- 11.1/34.8 11/10: H/H- 11.5/36.1 11/09: H/H- 12.2/39.3 11/08: H/H- 10.4/33.5 11/07: H/H- 11.1/35.8 11/06: f/u H&H, monitor 11/05-11/06: H&H low, stable, continue to monitor H&H: 12.5/40.2- stable Intracranial bleed No coagulopathy Contraindication for anticoagulation Monitor Sepsis- resolved 11/23: urine cx pos for yeast again. ID informed, told to continue Diflucan. 11/22: FU urine cx- if negative, will d/c Diflucan. Pt off Merrem and vanc. 11/21: Per ID- ok to de-escalate Antibiotics- Vanc discontinued last week, Merrem discontinued today, will continue Diflucan until repeat Urine cx resulted - [place] catheter changed on 11/18 11/19: no changes, afebrile 11/18: Afebrile over last 24H, no labs today, per ID- de-escalate Abx- do not renew Vanc, will cont merrem over the weekend, then d/c on 11/21. Change the [place] catheter if urine cx still positive for yeast. 11/17: Afebrile over last 24H, no leukocytosis- stable, no changes 11/16: Afebrile over last 24H, no leukocytosis- stable, no changes 11/15: Afebrile over last 24H, no leukocytosis- stable FU Vanc trough at 1pm 11/15 11/14: Afebrile over last 24H, no leukocytosis 11/13: Afebrile, labs stable 11/12: Afebrile overnight, f/u am labs 11/11: Afebrile over last 24H, WBC down trending, now 12.3 from 12.6, per ID: resume vancomcyin; trough 10-15; and monitor wbc count FU sputum cxr- talked to lab- results will be available on 11/12- so far only normal kalin growing FU vanc trough on 11/12 before 3rd dose 11/10: Afebrile over last 24H, WBC down trending, no w 12.6 from 14.1, Blood cx neg x 4 D, repeat urine cxr pos for yeast 11/09: Afebrile over last 24H, WBC increased from 11.9 to 14.1; Blood/urine/ sputum cxr sent Vanc trough 8.4 Urine cxr pos for yeast Diflucan 200mg Q24H ordered ID consulted for adjustement of antibiotics/antifungals- awaiting recs 11/08: Afebrile over last 24H, WBC 11.9, Bands 3 11/07: Afebrile over last 24H, WBC 16.3, Bands 6 Trach asp pos for Gram neg rods Blood cxr neg x 48H 11/06: Continue to monitor WBC 11/05: Leukocytosis 21.8 from 19.4, 16.7 - trending up 11/05: Vanc trough - 5.1 Afebrile over last 24H -Started Vanco 1gm Q24H vanco through 11/02 - 5.1 11/01- apr work up sent: blood cxr, urine cxr, CXR, C diff stool Blood cxr neg x 48H urine cxr neg Bandemia 5 10/31- Trach asp cx - normal kalin 10/31 - Urine ([place]) cxr neg 10/25 Sputum cx: Serratia marcescens and Enterobactor aerogenes 10/21 Sputum cx: Klebsiella pneumoniae Hold change of antibiotics. Fully aware of the low grade temperature, and increase in WBCs. Patient is hemodynamically stable. IV Cefepime 1 gram Q8H Acetaminophen 650 mg Q6 PRN for fever ID following- Kathy- continue Merrem and Vanco due to aspiration and pos Enterobacter Aerogenes Per Micro- Enterobacter aerogenes sensitive to merrem cont merrem Per ID: increase vanc to 1gm Q12H, FU vanc peak and trough on 3rd dose, cont diflucan Vanc trough 13.8- Vanco held, no peak done due to high trough Muscular deconditioning due to being bed bound PT/OT to work with pt Pt and family member at bedside instructed on self-rehab exercises Monitor tracheostomy site for drainage, erythema, hematoma, signs of infection. Prophylaxis: GI - Protonix 40 mg IVP daily DVT - contraindicated 09/15 to intracranial bleed WIll re-asses VTE needs on 12/07 Dispo: Con current mgmt ID following Pulm following Cont condom catheter Cont general body care SW eval for possible LTAC after PEG placement PEG tube with tube feeding in place @ goal of 60 cc/hour per dietary Labs Q3days PT/OT Pt in process of being added to 's insurance DW attending <Apple Vidal V - Last Filed: 11/24/16 20:28> Objective - Vital Signs/Intake and Output Vital Signs (last 24 hours): Temp Pulse Resp BP Pulse Ox 97.4 F L 76 20 113/75 100 11/24/16 15:10 11/24/16 16:11 11/24/16 15:10 11/24/16 15:10 11/24/16 15:10 Intake and Output: 11/24/16 11/25/16 18:59 06:59 Output Total 600 Balance -600 - Medications Medications: Current Medications Acetaminophen (Tylenol 325mg Tab) 650 mg PO Q6 PRN PRN Reason: Fever >100.4 F Last Admin: 11/24/16 09:59 Dose: 650 mg Acetylcysteine (Acetylcysteine 20%) 4 ml INH Q6H [facility] Last Admin: 11/24/16 13:23 Dose: 4 ml Albuterol Sulfate (Albuterol 0.083% Inhal Kim (2.5 Mg/3 Ml) Ud) 2.5 mg INH RQ6 [facility] Last Admin: 11/24/16 13:23 Dose: 2.5 mg Amlodipine Besylate (Norvasc) 5 mg PO DAILY [facility] Last Admin: 11/24/16 09:59 Dose: 5 mg Aspirin (Aspirin Chewable) 81 mg GT DAILY [facility] Last Admin: 11/24/16 09:59 Dose: 81 mg Fluconazole (Diflucan Iv 200 Mg/100 Ml Ns) 100 mls @ 100 mls/hr IVPB Q24H [facility] Last Admin: 11/23/16 20:00 Dose: 100 mls/hr Pantoprazole Sodium (Protonix Susp) 40 mg PO DAILY [facility] Last Admin: 11/24/16 09:59 Dose: 40 mg Rosuvastatin Calcium (Crestor) 5 mg GT HS [facility] Last Admin: 11/23/16 21:24 Dose: 5 mg Saccharomyces Boulardii (Florastor) 250 mg PO BID [facility] Last Admin: 11/24/16 18:18 Dose: 250 mg - Labs Labs: 11/23/16 07:15 11/23/16 07:15 PT 12.9 SECONDS (9.7-12.2) H 11/15/16 13:58 INR 1.2 11/15/16 13:58 APTT 39 SECONDS (21-34) H 11/15/16 13:58 Attending/Attestation - Attestation I have personally seen and examined this patient.: Yes I have fully participated in the care of the patient.: Yes I have reviewed all pertinent clinical information, including history, physical exam and plan: Yes Notes (Text): This is late computer entry for 11/23/16. Patient seen, examined, and case discussed with day-time resident. Patient seen at bedside. Patient tolerate new goal of 60cc/hr via peg feedings and water flushes at 400cc Q 8hours adjusted accordingly. patient has persistent yeast in urine; will follow-up with infectious disease for any further recommendation Family attempting to secure patient for insurance; and hopefully will be able to establish bilingual customer service care facility or LTAC for the patient if this is accomplished. (1) Intracranial hemorrhage Assessment & Plan: 10/18 CT Head: Left basal ganglia acute hemorrhage, possibly hypertensive with associated intraventricular hemorrhage and mass effect upon the left lateral aspect of the 3rd ventricle with the tip shift of the 3rd ventricle towards the right side. No generalized midline shift. Air-fluid level in sphenoid sinus common nonspecific. Please correlate for concern regarding acute sinusitis. Mild involutional changes. 10/19 CT Head: little interval change in the known 2.0 x 2.7 acute hematoma in left thalamus with intra ventricular extension of hemorrhage. Interval mild worsening of obstructive hydrocephalus. 10/24 CT Head: little interval change in the size of left thalamic hemorrhage 2.4x2.9 cm with intraventricular extension of hemorrhage and mild obstructive hydrocephalus. 2 mm midline shift from left to right with no evidence of herniation. Near complete resolution of hemorrhage within 4th ventricle. 11/03/16 CT Head; Interval decrease in size and density left basal ganglia hematoma; well-circumscribed peripheral rim of low attentuation edema about hematoma; combination of brain edema and brain necrosis; intraventricular hemorrhage has diminished. Ventricles hae also decreased in size temporal horns and atria remain prominent. Persistent compression of the 3rd and left lateral ventricle * Neurosurgery per initial consult-->patient's prognosis dismal at beginning of admission * Neurology (Dr. Simpson) on board-->per 10/26 note: patient has attained maximum response from neuro point of view from this admission; keep nutritional status and avoid infectious; treat with peg/trach; no antiplatelets for next 4-6 weeks (; maintain MAP ~100) * On baby aspirin 81mg PO daily; discussed with neurology with 11/22/16 Status: Acute (2) Hypertensive emergency Assessment & Plan: * Controlled * Norvasc 5mg PO daily * monitor vital signs (3) Acute respiratory failure Assessment & Plan: * s/p tracheostomy 10/28/16 * Patient completed trach collar. * Weaning completed; off ventilator * Saturating well. * Monitor dressing change of trach site * Pulmonary (Dr. Bailey) consulted to assist with weaning protocol * Mucomyst PRN to help thin out secretions * Duonebs PRN shortness of breathe * monitor and may need suctioning PRN Status: resolved (4) CVA (cerebral vascular accident) Assessment & Plan: * Hemorrhagic stroke with associated hypotension and basal ganglia involvement * [id number]:5.7 * Cholestrol: 202, TG: LDL:130 HDL:52 * Started on Aspirin 81mg PO daily * Blood pressure control monitoring * Start on Crestor 5mg POqHS * s/p peg placement; feedings via peg started on 11/17/16; monitor for residual * Patient currently on 60cc/hr with 400cc Q 8 hours of water flushes (5) Sepsis Per 11/05; Fever 103F and associated leukocytosis: 21.8; infection: pneumonia Infectious disease on board (Dr. Chavez) 10/21 Sputum-Klebsiella (sensitive to Maxipime) 10/25 Serratia and Enterobacter (sensitive to Maxipime) 10/31 Sputum: normal 11/06: Enterobacter which is sensitive Meropenem (switch from Maxipime) 11/06 Urine culture: yeast 11/09 Urine culture: yeast Blood cultures: 11/09: no growth for 5 days X2 Repeat sputum: normal kalin Urine culture: yeast-->f/u with Dr. Chavez for any further recommendation * D/c Meropenem 11/22/16 * Renewed Diflucan until repeat urine culture is completed (6) Hypernatremia * Free water: 400 water Q 8hours flushes peg * sodium normalized (7) Prophylactic care * s/p peg placement * Weaned off vent; saturating well on trach * Will need PT/OT * Family trying to secure insurance for the patient and coordinate with case management * follow-up with dietary for further recommendations * on peg feedings/fluid flushes
[2016-11-23] MEDS: Fluconazole IV 200mg/100 ml NS 100 ML IVPB SCH (20:00)
[2016-11-24] MEDS: Albuterol 0.083% Inhal Sol (2.5 mg/3 mL) UD INH SCH ×4 (01:03→20:28)
[2016-11-24] MEDS: Acetylcysteine 20% Inhal Soln (4ml) INH SCH ×4 (01:03→20:28)
--- NOTE | 2016-11-24 09:20 | CP.PCM.PN ---
<Marybel Taylor - Last Filed: 11/24/16 11:42> Subjective - Date & Time of Evaluation Date of Evaluation: 11/24/16 Time of Evaluation: 06:20 - Subjective Subjective: Internal medicine progress note for Hospitalist service- Marybel Taylor, PGY-1 Pt S & E at bedside. Pt resting comfortably in bed, no events over night per nursing. Pt awake, alert, able to move left side of body. Stable. Objective - Vital Signs/Intake and Output Vital Signs (last 24 hours): Temp Pulse Resp BP Pulse Ox 97.4 F L 76 20 122/78 100 11/24/16 07:58 11/24/16 08:11 11/24/16 07:58 11/24/16 07:58 11/24/16 07:58 Intake and Output: 11/24/16 11/24/16 06:59 18:59 Intake Total 1860 Output Total 750 Balance 1110 - Medications Medications: Current Medications Acetaminophen (Tylenol 325mg Tab) 650 mg PO Q6 PRN PRN Reason: Fever >100.4 F Last Admin: 11/23/16 10:45 Dose: 650 mg Acetylcysteine (Acetylcysteine 20%) 4 ml INH Q6H [facility] Last Admin: 11/24/16 07:37 Dose: 4 ml Albuterol Sulfate (Albuterol 0.083% Inhal Kim (2.5 Mg/3 Ml) Ud) 2.5 mg INH RQ6 [facility] Last Admin: 11/24/16 07:37 Dose: 2.5 mg Amlodipine Besylate (Norvasc) 5 mg PO DAILY [facility] Last Admin: 11/23/16 10:45 Dose: 5 mg Aspirin (Aspirin Chewable) 81 mg GT DAILY [facility] Last Admin: 11/23/16 10:45 Dose: 81 mg Fluconazole (Diflucan Iv 200 Mg/100 Ml Ns) 100 mls @ 100 mls/hr IVPB Q24H [facility] Last Admin: 11/23/16 20:00 Dose: 100 mls/hr Pantoprazole Sodium (Protonix Susp) 40 mg PO DAILY [facility] Last Admin: 11/23/16 10:45 Dose: 40 mg Rosuvastatin Calcium (Crestor) 5 mg GT HS [facility] Last Admin: 11/23/16 21:24 Dose: 5 mg Saccharomyces Boulardii (Florastor) 250 mg PO BID [facility] Last Admin: 11/23/16 17:51 Dose: 250 mg - Labs Labs: 11/23/16 07:15 11/23/16 07:15 PT 12.9 SECONDS (9.7-12.2) H 11/15/16 13:58 INR 1.2 11/15/16 13:58 APTT 39 SECONDS (21-34) H 11/15/16 13:58 - Constitutional Appears: Non-toxic, No Acute Distress - Head Exam Head Exam: ATRAUMATIC, NORMAL INSPECTION, NORMOCEPHALIC - Eye Exam Eye Exam: EOMI, Normal appearance, PERRL Pupil Exam: NORMAL ACCOMODATION, PERRL - ENT Exam ENT Exam: Mucous Membranes Moist, Normal Exam - Neck Exam Neck Exam: absent: Full ROM (looks to left, can't turn head right) Additional comments: trach collar in place, copious yellow secretions noted- dressing changed - Respiratory Exam Respiratory Exam: Clear to Ausculation Bilateral, NORMAL BREATHING PATTERN - Cardiovascular Exam Cardiovascular Exam: REGULAR RHYTHM, +S1, +S2 - GI/Abdominal Exam GI & Abdominal Exam: Soft, Normal Bowel Sounds. absent: Tenderness Additional comments: PEG tube in place, non tender - Extremities Exam Extremities Exam: Normal Inspection. 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 11/24: Trach collar with copious secretions, trach care as per nursing 11/23: Stable, trach collar care as per nursing, continues with copious secretions 11/22: Trach collar in place, no secretions audible this morning, cont ASA daily 11/21: Trach collar in place, secretions audible- nursing notified; ASA 81 mg daily started as per neuro 11/19: Minimal secretions at trach, stable 11/18: Trach collar in place, stable 6: On trach collar, stable, lots of secretions 45: Stable on trach collar, no changes 11/15: Stable, no changes, trach collar in place 11/14: trach collar in place 11/13: Pt still with secretions, respiratory informed and will address 11/11: Secretions continued, started duonebs and mucomyst, informed nursing to do trach care and suctioning 11/10: Pt with audible secretions on trach collar- nursing informed, OGT in place 11/09: Pt resting comfortably in bed, trach to trach collar- tolerating w/some secretions as per respiratory, OGT In place 11/08: Resting comfortably, trach in place, OGT in place, does not 11/07: Resting comfortably, trach in place 11/06: Trach in place, resting comfortably. Follows simple commands to protrude tongue and move L arm 11/05: did not follow simple commands 11/04: Continues to follows simple commands in [place] Neurology consult - Dr. Simpson advise to schedule trach and PEG. Hold antiplatelets for 4-6 weeks and maintain blood pressure above 100 systolic. Sedation as needed 10/24 CT Head: little interval change in the size of left thalamic hemorrhage 2.4x2.9 cm with intraventricular extension of hemorrhage and mild obstructive hydrocephalus. 2 mm midline shift from left to right with no evidence of herniation. Near complete resolution of hemorrhage within 4th ventricle. 10/19 CT Head: little interval change in the known 2.0 x 2.7 acute hematoma in left thalamus with intra ventricular extension of hemorrhage. Interval mild worsening of obstructive hydrocephalus. 10/18 CT Head: Left basal ganglia acute hemorrhage, possibly hypertensive with associated intraventricular hemorrhage and mass effect upon the left lateral aspect of the 3rd ventricle with the tip shift of the 3rd ventricle towards the right side. No generalized midline shift. Air-fluid level in sphenoid sinus common nonspecific. Please correlate for concern regarding acute sinusitis. Mild involutional changes. GCS - 8T (E4 VT M4) [place] II 10.0, 12% estimated non-operative mortality 11/03- CT brain w/o cont for re-evaluation of bleed w/findings of Interval decrease in size and density left basal ganglia hematoma however well- circumscribed peripheral rim of low-attenuation edema about the hematoma likely represent some combination of brain edema as well as of brain necrosis. Intraventricular hemorrhage has diminished. Ventricles have also decreased in size though the temporal horns and atria remain prominent compared to the compressed remaining ventricular system. There is persistent compression of the 3rd and left lateral ventricle Chronic white matter and basal nuclei ischemic changes. December 07- reassess pt need for anticoagulation with neurology HTN: 11/24: BP WNL- cont Norvasc 11/23: 126/78m cont Norvasc 11/22: BP 118/78, cont Norvasc/monitor 11/21: BP 128/89, cont Norvasc 11/19: BP stable, c/w current management 11/18: BP 145/89; Cont Norvasc 11/17: 150/89; cont Norvasc 11/16: BP 138/88,- cont Norvasc 11/15: BP 142/83, cont Norvasc/monitor VS 11/14:BP 146/95, cont Norvasc 11/12: BP controlled 11/11: BP 134/91, started Norvasc 5mg Daily 11/10: BP 135/90, will d/c IVF 11/09: BP 169/94- same as previous 11/08: BP 148/95, slight elevated, but mostly WNL- continue to hold Hydralazine 11/06: BP elevated 161/99; continue to monitor 11/05: BP WNL Amlodipine 10 mg POQD Hydralazine 25 mg PO BID - currently being held- BP WNL Losartan 100 mg POQD Labetalol 200 mg PO Q12H Respiratory failure on trach collar: 11/24: Trach collar with secretions, non bloody, pulm following 11/23: Trach collar in place, pt tolerating, pulm following 11/22: TC in place, care as per respiratory, nursing, pulm following 11/21: Trach collar at 30%FiO2, pulm following, trach care as per respiratory and nursing 11/20: no changes, pul following 11/18: Trach collar at 30% FiO2, pulm following 11/17: Pulm following, pt on 30%FiO2 via trach collar- stable 11/16: Pulm following - pt on T tube for PEG 11/15: Pulm following- cont trach collar, pulm toilet 11/14: Still tolerating trach collar off vent, pulm following 11/13: Off of vent, tolerating well. 11/11: Pulm recs- Continue weaning with trials off vent, continue nebulizer treatments 11/10: On trach collar, pulm consulted for potential weaning, mucomyst ordered for secretions 11/08: Trial pt on trach collar w/o mech vent Pulm consulted for trach weaning protocol- Leo 11/08: Trial pt on trach collar w/o mech vent 11/07: Trach collar w/CPAP 11/06: Trach in place. On mech vent s/p tracheostomy Trach tube care CPAP ABG: -10/29 pH 7.46, CO 35, O2 90, HCO3 26.0 -10/28 pH 7.46, CO2 35, O2 73, HCO3 25.9 -10/27 pH 7.49, CO2 33, O2 74, HCO3 26.5 -10/26 pH 7.5, CO2 32, O2 91, HCO3 26.6 -10/24 pH 7.47, CO2 35, O2 119, HCO3 26.5 -10/23 pH 7.47, CO2 33, O2 66, HCO3 25.5 -10/22 pH 7.52, CO2 33, O2 57, HCO3 28.1 -10/21 pH 7.48, CO2 38, O2 79, HCO3 28.5 -10/20 pH 7.46, CO2 37, O2 187 HCO3 26.9 -10/19 pH 7.46, CO2 38, O2 214, HCO3 27.4 Imaging 11/08 CXR-Tracheostomy tube in place. Other lines and tubes in stable position. Mild patchy increased markings in the right infrahilar region. Biapical pleural thickening. 11/02/CXR - repeat CXR for replacement of OGT w/Support lines tubes - normally positioned No interval pathology noted 11/02 CXR - Interval improvement in the right lower lung since the previous study. Appropriate position of the right-sided PICC line with the tip is likely at the SVC right atrium junction 11/01 CXR - The in situ tracheostomy tube and NG tube positions are as before. Mild interval prominence of the right infrahilar bronchovascular markings either due to technique or subtle interval patchy infiltrate. Clinical follow- up recommended 10/31 CXR -In situ tracheostomy tube remains in good position. NGT w/tip overlying LUQ of the abdomen unchanged. Continued improvement right lung base. 10/28 CXR No focal airspace opacity 10/27 CXR No active disease 10/26 CXR - Mild venous congestion. Right hilar prominence 10/24 CXR Mild venous congestion. Mild right infrahilar prominence 10/23 CXR - Mild venous congestion. right hilar prominence. Biapical pleural thickening upper lobe granulomatous changes. lines and tubes in stable position. 10/22 CXR - Worsening consolidative changes to right mid to lower lung zone. lines and tubes in stable position. 10/20 CXR - Distal tip of an endotracheal tube terminates approximately 4.6 cm above the brisa. Left IJ approach Central venous catheter terminates at expected location of the left innominate vein. Nasogastric tube extends to expected location of the stomach 10/19 CXR New nasogastric tube extends to distal esophagus, above the diaphragm. Repositioning is advised. ET tube unchanged. No infiltrate. 10/18 CXR ET tube proximal to brisa, no acute pulmonary pathology official read pending Head of bed to 30* Keep O2 Sat >92% Dysphagia 11/24: PEG tube in place, no residuals as per nursing, tolerating 60cc/hr tube feeds 11/23: Dietary recs for goal of 60cc/hr tube feeds, pt tolerating new goal, no residuals. PEG tube in place. 11/22: No residuals, dietary reconsulted for recs 11/21: Pt at goal of 50cc/hr tube feeds, PEG tube in place, no drainage noted 11/19: tolerating feedings 11/18: Tube feeds to 30cc today, keep free water flushes 11/17: PEG tube placed, tube feeds to start at noon, Dietary recs- Isosource 1.5, goal rate 50ml; Free water flushes 300cc Q8H 11/16: PEG tube today, tube feeds held 11/15: PEG tube in AM per GI, told Tube feeds after MN- NPO and nursing order in 11/14: No residuals overnight, ok to increase rate to 30cc/hr, GI re-consulted for PEG tube placement 11/11: Pt w/10cc residuals- kept at rate of 20cc/hr, will consider increasing by 10cc tomorrow if no residuals 11/10: Tube feeds stable 11/09: Tube feeds at 30cc/hr, no reported residuals. Advance by 10cc per day until goal of 50cc. 11/08- OGT placed last night, position verified- ok to use OGT for tube feeds 11/07: NPO- no access to stomach 11/05: OGT removed due to possible contribution to fever/sepsis. Feeding tube via oropharynx replaced 11/02 after pt removed position verified by CXR Feeding tube via oropharynx replaced 11/01 Position verified by CXR NGT was advanced 10/20 - d/c'd Consulted GI- Dr. Renteria- PEG tube placement when not having fevers/ leukocytosis Anemia- stable 11/24: No labs today 11/23: H/H 10.8/33.3 11/22: No labs today 11/21: Labs from 11/20: H/H 11/34.2- stable 11/18: No labs 11/17: H/H 11.9/36.5 11/16: H/H 12.2/38.1; PT 12.9, INR 1.2, PTT 39 11/15: H/H- 11.4/35.5, FU PT/INR/PTT 11/14: H/H - 11.3/35.2 11/11: H/H- 11.1/34.8 11/10: H/H- 11.5/36.1 11/09: H/H- 12.2/39.3 11/08: H/H- 10.4/33.5 11/07: H/H- 11.1/35.8 11/06: f/u H&H, monitor 11/05-11/06: H&H low, stable, continue to monitor H&H: 12.5/40.2- stable Intracranial bleed No coagulopathy Contraindication for anticoagulation Monitor Sepsis- resolved 11/24: Cont diflucan 11/23: urine cx pos for yeast again. ID informed, told to continue Diflucan. 11/22: FU urine cx- if negative, will d/c Diflucan. Pt off Merrem and vanc. 11/21: Per ID- ok to de-escalate Antibiotics- Vanc discontinued last week, Merrem discontinued today, will continue Diflucan until repeat Urine cx resulted - [place] catheter changed on 11/18 11/19: no changes, afebrile 11/18: Afebrile over last 24H, no labs today, per ID- de-escalate Abx- do not renew Vanc, will cont merrem over the weekend, then d/c on 11/21. Change the [place] catheter if urine cx still positive for yeast. 11/17: Afebrile over last 24H, no leukocytosis- stable, no changes 11/16: Afebrile over last 24H, no leukocytosis- stable, no changes 11/15: Afebrile over last 24H, no leukocytosis- stable FU Vanc trough at 1pm 11/15 11/14: Afebrile over last 24H, no leukocytosis 11/13: Afebrile, labs stable 11/12: Afebrile overnight, f/u am labs 11/11: Afebrile over last 24H, WBC down trending, now 12.3 from 12.6, per ID: resume vancomcyin; trough 10-15; and monitor wbc count FU sputum cxr- talked to lab- results will be available on 11/12- so far only normal kalin growing FU vanc trough on 11/12 before 3rd dose 11/10: Afebrile over last 24H, WBC down trending, no w 12.6 from 14.1, Blood cx neg x 4 D, repeat urine cxr pos for yeast 11/09: Afebrile over last 24H, WBC increased from 11.9 to 14.1; Blood/urine/ sputum cxr sent Vanc trough 8.4 Urine cxr pos for yeast Diflucan 200mg Q24H ordered ID consulted for adjustement of antibiotics/antifungals- awaiting recs 11/08: Afebrile over last 24H, WBC 11.9, Bands 3 11/07: Afebrile over last 24H, WBC 16.3, Bands 6 Trach asp pos for Gram neg rods Blood cxr neg x 48H 11/06: Continue to monitor WBC 11/05: Leukocytosis 21.8 from 19.4, 16.7 - trending up 11/05: Vanc trough - 5.1 Afebrile over last 24H -Started Vanco 1gm Q24H vanco through 11/02 - 5.1 11/01- apr work up sent: blood cxr, urine cxr, CXR, C diff stool Blood cxr neg x 48H urine cxr neg Bandemia 5 10/31- Trach asp cx - normal kalin 10/31 - Urine ([place]) cxr neg 10/25 Sputum cx: Serratia marcescens and Enterobactor aerogenes 10/21 Sputum cx: Klebsiella pneumoniae Hold change of antibiotics. Fully aware of the low grade temperature, and increase in WBCs. Patient is hemodynamically stable. IV Cefepime 1 gram Q8H Acetaminophen 650 mg Q6 PRN for fever ID following- Kathy- continue Merrem and Vanco due to aspiration and pos Enterobacter Aerogenes Per Micro- Enterobacter aerogenes sensitive to merrem cont merrem Per ID: increase vanc to 1gm Q12H, FU vanc peak and trough on 3rd dose, cont diflucan Vanc trough 13.8- Vanco held, no peak done due to high trough Muscular deconditioning due to being bed bound PT/OT to work with pt Pt and family member at bedside instructed on self-rehab exercises Monitor tracheostomy site for drainage, erythema, hematoma, signs of infection. Prophylaxis: GI - Protonix 40 mg IVP daily DVT - contraindicated 09/15 to intracranial bleed WIll re-asses VTE needs on 12/07 Dispo: Con current mgmt ID following Pulm following Cont condom catheter Cont general body care SW eval for possible LTAC after PEG placement PEG tube with tube feeding in place @ goal of 60 cc/hour per dietary Labs Q7days PT/OT Pt in process of being added to 's insurance DW attending <Apple Vidal V - Last Filed: 11/24/16 20:30> Objective - Vital Signs/Intake and Output Vital Signs (last 24 hours): Temp Pulse Resp BP Pulse Ox 97.4 F L 76 20 113/75 100 11/24/16 15:10 11/24/16 16:11 11/24/16 15:10 11/24/16 15:10 11/24/16 15:10 Intake and Output: 11/24/16 11/25/16 18:59 06:59 Output Total 600 Balance -600 - Medications Medications: Current Medications Acetaminophen (Tylenol 325mg Tab) 650 mg PO Q6 PRN PRN Reason: Fever >100.4 F Last Admin: 11/24/16 09:59 Dose: 650 mg Acetylcysteine (Acetylcysteine 20%) 4 ml INH Q6H [facility] Last Admin: 11/24/16 13:23 Dose: 4 ml Albuterol Sulfate (Albuterol 0.083% Inhal Kim (2.5 Mg/3 Ml) Ud) 2.5 mg INH RQ6 [facility] Last Admin: 11/24/16 13:23 Dose: 2.5 mg Amlodipine Besylate (Norvasc) 5 mg PO DAILY [facility] Last Admin: 11/24/16 09:59 Dose: 5 mg Aspirin (Aspirin Chewable) 81 mg GT DAILY [facility] Last Admin: 11/24/16 09:59 Dose: 81 mg Fluconazole (Diflucan Iv 200 Mg/100 Ml Ns) 100 mls @ 100 mls/hr IVPB Q24H [facility] Last Admin: 11/23/16 20:00 Dose: 100 mls/hr Pantoprazole Sodium (Protonix Susp) 40 mg PO DAILY [facility] Last Admin: 11/24/16 09:59 Dose: 40 mg Rosuvastatin Calcium (Crestor) 5 mg GT HS [facility] Last Admin: 11/23/16 21:24 Dose: 5 mg Saccharomyces Boulardii (Florastor) 250 mg PO BID [facility] Last Admin: 11/24/16 18:18 Dose: 250 mg - Labs Labs: 11/23/16 07:15 11/23/16 07:15 PT 12.9 SECONDS (9.7-12.2) H 11/15/16 13:58 INR 1.2 11/15/16 13:58 APTT 39 SECONDS (21-34) H 11/15/16 13:58 Attending/Attestation - Attestation I have personally seen and examined this patient.: Yes I have fully participated in the care of the patient.: Yes I have reviewed all pertinent clinical information, including history, physical exam and plan: Yes Notes (Text): Patient seen, examined, and case discussed with day-time resident. No new events. Patient is tolerating feeds and fluid flushes. Patient to continue IV Diflucan for yeast in urine. Family trying to arrange for insurance for the patient at this time. Continue present management (1) Intracranial hemorrhage Assessment & Plan: 10/18 CT Head: Left basal ganglia acute hemorrhage, possibly hypertensive with associated intraventricular hemorrhage and mass effect upon the left lateral aspect of the 3rd ventricle with the tip shift of the 3rd ventricle towards the right side. No generalized midline shift. Air-fluid level in sphenoid sinus common nonspecific. Please correlate for concern regarding acute sinusitis. Mild involutional changes. 10/19 CT Head: little interval change in the known 2.0 x 2.7 acute hematoma in left thalamus with intra ventricular extension of hemorrhage. Interval mild worsening of obstructive hydrocephalus. 10/24 CT Head: little interval change in the size of left thalamic hemorrhage 2.4x2.9 cm with intraventricular extension of hemorrhage and mild obstructive hydrocephalus. 2 mm midline shift from left to right with no evidence of herniation. Near complete resolution of hemorrhage within 4th ventricle. 11/03/16 CT Head; Interval decrease in size and density left basal ganglia hematoma; well-circumscribed peripheral rim of low attentuation edema about hematoma; combination of brain edema and brain necrosis; intraventricular hemorrhage has diminished. Ventricles hae also decreased in size temporal horns and atria remain prominent. Persistent compression of the 3rd and left lateral ventricle * Neurosurgery per initial consult-->patient's prognosis dismal at beginning of admission * Neurology (Dr. Simpson) on board-->per 10/26 note: patient has attained maximum response from neuro point of view from this admission; keep nutritional status and avoid infectious; treat with peg/trach; no antiplatelets for next 4-6 weeks (; maintain MAP ~100) * On baby aspirin 81mg PO daily; discussed with neurology with 11/22/16 Status: Acute (2) Hypertensive emergency Assessment & Plan: * Controlled * Norvasc 5mg PO daily * monitor vital signs (3) Acute respiratory failure Assessment & Plan: * s/p tracheostomy 10/28/16 * Patient completed trach collar. * Weaning completed; off ventilator * Saturating well. * Monitor dressing change of trach site * Pulmonary (Dr. Bailey) consulted to assist with weaning protocol * Mucomyst PRN to help thin out secretions * Duonebs PRN shortness of breathe * monitor and may need suctioning PRN Status: resolved (4) CVA (cerebral vascular accident) Assessment & Plan: * Hemorrhagic stroke with associated hypotension and basal ganglia involvement * iaiiynaatpl2q:5.7 * Cholestrol: 202, TG: LDL:130 HDL:52 * Started on Aspirin 81mg PO daily * Blood pressure control monitoring * Start on Crestor 5mg POqHS * s/p peg placement; feedings via peg started on 11/17/16; monitor for residual * Patient currently on 60cc/hr with 400cc Q 8 hours of water flushes (5) Sepsis Per 11/05; Fever 103F and associated leukocytosis: 21.8; infection: pneumonia Infectious disease on board (Dr. Chavez) 10/21 Sputum-Klebsiella (sensitive to Maxipime) 10/25 Serratia and Enterobacter (sensitive to Maxipime) 3/20 Sputum: normal 11/06: Enterobacter which is sensitive Meropenem (switch from Maxipime) 11/06 Urine culture: yeast 11/09 Urine culture: yeast Blood cultures: 11/09: no growth for 5 days X2 Repeat sputum: normal kalin Urine culture: yeast-->f/u with Dr. Chavez for any further recommendation * D/c Meropenem 11/22/16 * Renewed Diflucan until repeat urine culture is completed (6) Hypernatremia * Free water: 400 water Q 8hours flushes peg * sodium normalized (7) Prophylactic care * s/p peg placement * Weaned off vent; saturating well on trach * Will need PT/OT * Family trying to secure insurance for the patient and coordinate with case management * follow-up with dietary for further recommendations * on peg feedings/fluid flushes
[2016-11-24] MEDS: Saccharomyces Boulardi 250 mg Cap PO SCH ×2 (09:59→18:18)
[2016-11-24] MEDS: Pantoprazole 40 mg Susp UD PO SCH (09:59)
[2016-11-24] MEDS: Fluconazole IV 200mg/100 ml NS 100 ML IVPB SCH (20:00)
[2016-11-25] MEDS: Acetylcysteine 20% Inhal Soln (4ml) INH SCH ×3 (01:06→13:16)
[2016-11-25] MEDS: Albuterol 0.083% Inhal Sol (2.5 mg/3 mL) UD INH SCH ×3 (01:07→13:16)
--- NOTE | 2016-11-25 07:40 | CP.PCM.PN ---
<Marybel Taylor - Last Filed: 11/25/16 10:24> Subjective - Date & Time of Evaluation Date of Evaluation: 11/25/16 Time of Evaluation: 06:15 - Subjective Subjective: Internal medicine progress note for Hospitalist service- Marybel Taylor, PGY-1 Pt S & E at bedside. Pt awake and alert in bed, comfortably, currently having body care provided. Nursing reports residuals of 5cc overnight. No other events. Objective - Vital Signs/Intake and Output Vital Signs (last 24 hours): Temp Pulse Resp BP Pulse Ox 97.5 F L 75 20 106/71 100 11/25/16 00:05 11/25/16 00:46 11/25/16 00:05 11/25/16 00:05 11/25/16 00:05 - Medications Medications: Current Medications Acetaminophen (Tylenol 325mg Tab) 650 mg PO Q6 PRN PRN Reason: Fever >100.4 F Last Admin: 11/24/16 09:59 Dose: 650 mg Acetylcysteine (Acetylcysteine 20%) 4 ml INH Q6H OMAR Last Admin: 11/25/16 07:25 Dose: 4 ml Albuterol Sulfate (Albuterol 0.083% Inhal Kim (2.5 Mg/3 Ml) Ud) 2.5 mg INH RQ6 OMAR Last Admin: 11/25/16 07:25 Dose: 2.5 mg Amlodipine Besylate (Norvasc) 5 mg PO DAILY O[facility] Last Admin: 11/24/16 09:59 Dose: 5 mg Aspirin (Aspirin Chewable) 81 mg GT DAILY OMAR Last Admin: 11/24/16 09:59 Dose: 81 mg Fluconazole (Diflucan Iv 200 Mg/100 Ml Ns) 100 mls @ 100 mls/hr IVPB Q24H OMAR Last Admin: 11/24/16 20:00 Dose: 100 mls/hr Pantoprazole Sodium (Protonix Susp) 40 mg PO DAILY OMAR Last Admin: 11/24/16 09:59 Dose: 40 mg Rosuvastatin Calcium (Crestor) 5 mg GT HS O[facility] Last Admin: 11/24/16 21:47 Dose: 5 mg Saccharomyces Boulardii (Florastor) 250 mg PO BID OMAR Last Admin: 11/24/16 18:18 Dose: 250 mg - Labs Labs: 11/23/16 07:15 11/23/16 07:15 PT 12.9 SECONDS (9.7-12.2) H 11/15/16 13:58 INR 1.2 11/15/16 13:58 APTT 39 SECONDS (21-34) H 11/15/16 13:58 - Constitutional Appears: Non-toxic, No Acute Distress - Head Exam Head Exam: ATRAUMATIC, NORMAL INSPECTION, NORMOCEPHALIC - Eye Exam Eye Exam: EOMI, Normal appearance, PERRL Pupil Exam: NORMAL ACCOMODATION, PERRL - ENT Exam ENT Exam: Mucous Membranes Moist, Normal Exam Additional comments: Trach collar in place- non bloody - Neck Exam Neck Exam: Normal Inspection. absent: Full ROM (only looks to left, does not turn head to right) - Respiratory Exam Respiratory Exam: Clear to Ausculation Bilateral, NORMAL BREATHING PATTERN - Cardiovascular Exam Cardiovascular Exam: REGULAR RHYTHM, +S1, +S2 - GI/Abdominal Exam GI & Abdominal Exam: Soft, Normal Bowel Sounds. absent: Tenderness Additional comments: PEG tube in place with dressing - Extremities Exam Extremities Exam: Normal Inspection. absent: Full ROM (only moves left side of body), Pedal Edema - Neurological Exam Neurological Exam: Alert, Awake Additional comments: Non verbal - Psychiatric Exam Additional comments: Non verbal - Skin Skin Exam: Dry, Intact, Normal Color, Warm Assessment and Plan - Assessment and Plan (Free Text) Assessment: 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 11/25: Trach care being provided by nursing, secretions noted, trach collar in place 11/24: Trach collar with copious secretions, trach care as per nursing 11/23: Stable, trach collar care as per nursing, continues with copious secretions 11/22: Trach collar in place, no secretions audible this morning, cont ASA daily 11/21: Trach collar in place, secretions audible- nursing notified; ASA 81 mg daily started as per neuro 11/19: Minimal secretions at trach, stable 11/18: Trach collar in place, stable 11/17: On trach collar, stable, lots of secretions 11/16: Stable on trach collar, no changes 11/15: Stable, no changes, trach collar in place 11/14: trach collar in place 11/13: Pt still with secretions, respiratory informed and will address 11/11: Secretions continued, started duonebs and mucomyst, informed nursing to do trach care and suctioning 11/10: Pt with audible secretions on trach collar- nursing informed, OGT in place 11/09: Pt resting comfortably in bed, trach to trach collar- tolerating w/some secretions as per respiratory, OGT In place 11/08: Resting comfortably, trach in place, OGT in place, does not 11/07: Resting comfortably, trach in place 11/06: Trach in place, resting comfortably. Follows simple commands to protrude tongue and move L arm 11/05: did not follow simple commands 11/04: Continues to follows simple commands in [place] Neurology consult - Dr. Simpson advise to schedule trach and PEG. Hold antiplatelets for 4-6 weeks and maintain blood pressure above 100 systolic. Sedation as needed 10/24 CT Head: little interval change in the size of left thalamic hemorrhage 2.4x2.9 cm with intraventricular extension of hemorrhage and mild obstructive hydrocephalus. 2 mm midline shift from left to right with no evidence of herniation. Near complete resolution of hemorrhage within 4th ventricle. 10/19 CT Head: little interval change in the known 2.0 x 2.7 acute hematoma in left thalamus with intra ventricular extension of hemorrhage. Interval mild worsening of obstructive hydrocephalus. 10/18 CT Head: Left basal ganglia acute hemorrhage, possibly hypertensive with associated intraventricular hemorrhage and mass effect upon the left lateral aspect of the 3rd ventricle with the tip shift of the 3rd ventricle towards the right side. No generalized midline shift. Air-fluid level in sphenoid sinus common nonspecific. Please correlate for concern regarding acute sinusitis. Mild involutional changes. GCS - 8T (E4 VT M4) [place] II 10.0, 12% estimated non-operative mortality 11/03- CT brain w/o cont for re-evaluation of bleed w/findings of Interval decrease in size and density left basal ganglia hematoma however well- circumscribed peripheral rim of low-attenuation edema about the hematoma likely represent some combination of brain edema as well as of brain necrosis. Intraventricular hemorrhage has diminished. Ventricles have also decreased in size though the temporal horns and atria remain prominent compared to the compressed remaining ventricular system. There is persistent compression of the 3rd and left lateral ventricle Chronic white matter and basal nuclei ischemic changes. December 07- reassess pt need for anticoagulation with neurology HTN: 11/25: BP 106/71- cont Norvasc 11/24: BP WNL- cont Norvasc 11/23: 126/78m cont Norvasc 11/22: BP 118/78, cont Norvasc/monitor 11/21: BP 128/89, cont Norvasc 11/19: BP stable, c/w current management 11/18: BP 145/89; Cont Norvasc 11/17: 150/89; cont Norvasc 11/16: BP 138/88,- cont Norvasc 11/15: BP 142/83, cont Norvasc/monitor VS 11/14:BP 146/95, cont Norvasc 11/12: BP controlled 11/11: BP 134/91, started Norvasc 5mg Daily 11/10: BP 135/90, will d/c IVF 11/09: BP 169/94- same as previous 11/08: BP 148/95, slight elevated, but mostly WNL- continue to hold Hydralazine 11/06: BP elevated 161/99; continue to monitor 11/05: BP WNL Amlodipine 10 mg POQD Hydralazine 25 mg PO BID - currently being held- BP WNL Losartan 100 mg POQD Labetalol 200 mg PO Q12H Respiratory failure on trach collar: 11/25: Pulm following, trach collar in place, mucus secretions noted, being cleaned up by nursing 11/24: Trach collar with secretions, non bloody, pulm following 11/23: Trach collar in place, pt tolerating, pulm following 11/22: TC in place, care as per respiratory, nursing, pulm following 11/21: Trach collar at 30%FiO2, pulm following, trach care as per respiratory and nursing 11/20: no changes, pul following 11/18: Trach collar at 30% FiO2, pulm following 11/17: Pulm following, pt on 30%FiO2 via trach collar- stable 11/16: Pulm following - pt on T tube for PEG 11/15: Pulm following- cont trach collar, pulm toilet 11/14: Still tolerating trach collar off vent, pulm following 11/13: Off of vent, tolerating well. 11/11: Pulm recs- Continue weaning with trials off vent, continue nebulizer treatments 11/10: On trach collar, pulm consulted for potential weaning, mucomyst ordered for secretions 11/08: Trial pt on trach collar w/o mech vent Pulm consulted for trach weaning protocol- Leo 11/08: Trial pt on trach collar w/o mech vent 11/07: Trach collar w/CPAP 11/06: Trach in place. On mech vent s/p tracheostomy Trach tube care CPAP ABG: -10/29 pH 7.46, CO 35, O2 90, HCO3 26.0 -10/28 pH 7.46, CO2 35, O2 73, HCO3 25.9 -10/27 pH 7.49, CO2 33, O2 74, HCO3 26.5 -10/26 pH 7.5, CO2 32, O2 91, HCO3 26.6 -10/24 pH 7.47, CO2 35, O2 119, HCO3 26.5 -10/23 pH 7.47, CO2 33, O2 66, HCO3 25.5 -10/22 pH 7.52, CO2 33, O2 57, HCO3 28.1 -10/21 pH 7.48, CO2 38, O2 79, HCO3 28.5 -10/20 pH 7.46, CO2 37, O2 187 HCO3 26.9 -10/19 pH 7.46, CO2 38, O2 214, HCO3 27.4 Imaging 11/08 CXR-Tracheostomy tube in place. Other lines and tubes in stable position. Mild patchy increased markings in the right infrahilar region. Biapical pleural thickening. 11/02/CXR - repeat CXR for replacement of OGT w/Support lines tubes - normally positioned No interval pathology noted 11/02 CXR - Interval improvement in the right lower lung since the previous study. Appropriate position of the right-sided PICC line with the tip is likely at the SVC right atrium junction 11/01 CXR - The in situ tracheostomy tube and NG tube positions are as before. Mild interval prominence of the right infrahilar bronchovascular markings either due to technique or subtle interval patchy infiltrate. Clinical follow- up recommended 10/31 CXR -In situ tracheostomy tube remains in good position. NGT w/tip overlying LUQ of the abdomen unchanged. Continued improvement right lung base. 10/28 CXR No focal airspace opacity 10/27 CXR No active disease 10/26 CXR - Mild venous congestion. Right hilar prominence 10/24 CXR Mild venous congestion. Mild right infrahilar prominence 10/23 CXR - Mild venous congestion. right hilar prominence. Biapical pleural thickening upper lobe granulomatous changes. lines and tubes in stable position. 10/22 CXR - Worsening consolidative changes to right mid to lower lung zone. lines and tubes in stable position. 10/20 CXR - Distal tip of an endotracheal tube terminates approximately 4.6 cm above the brisa. Left IJ approach Central venous catheter terminates at expected location of the left innominate vein. Nasogastric tube extends to expected location of the stomach 10/19 CXR New nasogastric tube extends to distal esophagus, above the diaphragm. Repositioning is advised. ET tube unchanged. No infiltrate. 10/18 CXR ET tube proximal to brisa, no acute pulmonary pathology official read pending Head of bed to 30* Keep O2 Sat >92% Dysphagia 11/25: PEG in place, residuals of 5cc/night per nursing 11/24: PEG tube in place, no residuals as per nursing, tolerating 60cc/hr tube feeds 11/23: Dietary recs for goal of 60cc/hr tube feeds, pt tolerating new goal, no residuals. PEG tube in place. 11/22: No residuals, dietary reconsulted for recs 11/21: Pt at goal of 50cc/hr tube feeds, PEG tube in place, no drainage noted 11/19: tolerating feedings 11/18: Tube feeds to 30cc today, keep free water flushes 11/17: PEG tube placed, tube feeds to start at noon, Dietary recs- Isosource 1.5, goal rate 50ml; Free water flushes 300cc Q8H 11/16: PEG tube today, tube feeds held 11/15: PEG tube in AM per GI, told Tube feeds after MN- NPO and nursing order in 11/14: No residuals overnight, ok to increase rate to 30cc/hr, GI re-consulted for PEG tube placement 11/11: Pt w/10cc residuals- kept at rate of 20cc/hr, will consider increasing by 10cc tomorrow if no residuals 11/10: Tube feeds stable 11/09: Tube feeds at 30cc/hr, no reported residuals. Advance by 10cc per day until goal of 50cc. 11/08- OGT placed last night, position verified- ok to use OGT for tube feeds 11/07: NPO- no access to stomach 11/05: OGT removed due to possible contribution to fever/sepsis. Feeding tube via oropharynx replaced 11/02 after pt removed position verified by CXR Feeding tube via oropharynx replaced 11/01 Position verified by CXR NGT was advanced 10/20 - d/c'd Consulted GI- Dr. Renteria- PEG tube placement when not having fevers/ leukocytosis Anemia- stable 11/25: No labs today 11/24: No labs today 11/23: H/H 10.8/33.3 11/22: No labs today 11/21: Labs from 11/20: H/H 11/34.2- stable 11/18: No labs 11/17: H/H 11.9/36.5 11/16: H/H 12.2/38.1; PT 12.9, INR 1.2, PTT 39 11/15: H/H- 11.4/35.5, FU PT/INR/PTT 11/14: H/H - 11.3/35.2 11/11: H/H- 11.1/34.8 11/10: H/H- 11.5/36.1 11/09: H/H- 12.2/39.3 11/08: H/H- 10.4/33.5 11/07: H/H- 11.1/35.8 11/06: f/u H&H, monitor 11/05-11/06: H&H low, stable, continue to monitor H&H: 12.5/40.2- stable Intracranial bleed No coagulopathy Contraindication for anticoagulation Monitor Sepsis- resolved 11/25: Cont Diflucan as per ID, FU repeat Urine cx ordered today 11/24: Cont diflucan 11/23: urine cx pos for yeast again. ID informed, told to continue Diflucan. 11/22: FU urine cx- if negative, will d/c Diflucan. Pt off Merrem and vanc. 11/21: Per ID- ok to de-escalate Antibiotics- Vanc discontinued last week, Merrem discontinued today, will continue Diflucan until repeat Urine cx resulted - [place] catheter changed on 11/18 11/19: no changes, afebrile 11/18: Afebrile over last 24H, no labs today, per ID- de-escalate Abx- do not renew Vanc, will cont merrem over the weekend, then d/c on 11/21. Change the [place] catheter if urine cx still positive for yeast. 11/17: Afebrile over last 24H, no leukocytosis- stable, no changes 11/16: Afebrile over last 24H, no leukocytosis- stable, no changes 11/15: Afebrile over last 24H, no leukocytosis- stable FU Vanc trough at 1pm 11/15 11/14: Afebrile over last 24H, no leukocytosis 11/13: Afebrile, labs stable 11/12: Afebrile overnight, f/u am labs 11/11: Afebrile over last 24H, WBC down trending, now 12.3 from 12.6, per ID: resume vancomcyin; trough 10-15; and monitor wbc count FU sputum cxr- talked to lab- results will be available on 11/12- so far only normal kalin growing FU vanc trough on 11/12 before 3rd dose 11/10: Afebrile over last 24H, WBC down trending, no w 12.6 from 14.1, Blood cx neg x 4 D, repeat urine cxr pos for yeast 11/09: Afebrile over last 24H, WBC increased from 11.9 to 14.1; Blood/urine/ sputum cxr sent Vanc trough 8.4 Urine cxr pos for yeast Diflucan 200mg Q24H ordered ID consulted for adjustement of antibiotics/antifungals- awaiting recs 11/08: Afebrile over last 24H, WBC 11.9, Bands 3 11/07: Afebrile over last 24H, WBC 16.3, Bands 6 Trach asp pos for Gram neg rods Blood cxr neg x 48H 11/06: Continue to monitor WBC 11/05: Leukocytosis 21.8 from 19.4, 16.7 - trending up 11/05: Vanc trough - 5.1 Afebrile over last 24H -Started Vanco 1gm Q24H vanco through 11/02 - 5.1 11/01- apr work up sent: blood cxr, urine cxr, CXR, C diff stool Blood cxr neg x 48H urine cxr neg Bandemia 5 10/31- Trach asp cx - normal kalin 10/31 - Urine ([place]) cxr neg 10/25 Sputum cx: Serratia marcescens and Enterobactor aerogenes 10/21 Sputum cx: Klebsiella pneumoniae Hold change of antibiotics. Fully aware of the low grade temperature, and increase in WBCs. Patient is hemodynamically stable. IV Cefepime 1 gram Q8H Acetaminophen 650 mg Q6 PRN for fever ID following- Kathy- continue Merrem and Vanco due to aspiration and pos Enterobacter Aerogenes Per Micro- Enterobacter aerogenes sensitive to merrem cont merrem Per ID: increase vanc to 1gm Q12H, FU vanc peak and trough on 3rd dose, cont diflucan Vanc trough 13.8- Vanco held, no peak done due to high trough Muscular deconditioning due to being bed bound PT/OT to work with pt Pt and family member at bedside instructed on self-rehab exercises Monitor tracheostomy site for drainage, erythema, hematoma, signs of infection. Prophylaxis: GI - Protonix 40 mg IVP daily DVT - contraindicated 09/15 to intracranial bleed WIll re-asses VTE needs on 12/07 Dispo: Con current mgmt ID following Pulm following Cont condom catheter Cont general body care SW eval for possible LTAC after PEG placement PEG tube with tube feeding in place @ goal of 60 cc/hour per dietary Labs Q7days PT/OT Pt in process of being added to 's insurance DW attending <Apple Vidal V - Last Filed: 11/25/16 17:58> Objective - Vital Signs/Intake and Output Vital Signs (last 24 hours): Temp Pulse Resp BP Pulse Ox 97.1 F L 80 20 117/78 100 11/25/16 15:15 11/25/16 15:15 11/25/16 15:15 11/25/16 15:15 11/25/16 15:15 Intake and Output: 11/25/16 11/25/16 06:59 18:59 Intake Total 880 880 Output Total 400 800 Balance 480 80 - Medications Medications: Current Medications Acetaminophen (Tylenol 325mg Tab) 650 mg PO Q6 PRN PRN Reason: Fever >100.4 F Last Admin: 11/24/16 09:59 Dose: 650 mg Acetylcysteine (Acetylcysteine 20%) 4 ml INH Q6H OMAR Last Admin: 11/25/16 13:16 Dose: 4 ml Albuterol Sulfate (Albuterol 0.083% Inhal Kim (2.5 Mg/3 Ml) Ud) 2.5 mg INH RQ6 [facility] Last Admin: 11/25/16 13:16 Dose: 2.5 mg Amlodipine Besylate (Norvasc) 5 mg PO DAILY [facility] Last Admin: 11/25/16 09:58 Dose: 5 mg Aspirin (Aspirin Chewable) 81 mg GT DAILY [facility] Last Admin: 11/25/16 09:58 Dose: 81 mg Fluconazole (Diflucan Iv 200 Mg/100 Ml Ns) 100 mls @ 100 mls/hr IVPB Q24H [facility] Last Admin: 11/24/16 20:00 Dose: 100 mls/hr Pantoprazole Sodium (Protonix Susp) 40 mg PO DAILY [facility] Last Admin: 11/25/16 09:58 Dose: 40 mg Rosuvastatin Calcium (Crestor) 5 mg GT HS [facility] Last Admin: 11/24/16 21:47 Dose: 5 mg Saccharomyces Boulardii (Florastor) 250 mg PO BID [facility] Last Admin: 11/25/16 09:58 Dose: 250 mg - Labs Labs: 11/23/16 07:15 11/23/16 07:15 PT 12.9 SECONDS (9.7-12.2) H 11/15/16 13:58 INR 1.2 11/15/16 13:58 APTT 39 SECONDS (21-34) H 11/15/16 13:58 Attending/Attestation - Attestation I have personally seen and examined this patient.: Yes I have fully participated in the care of the patient.: Yes I have reviewed all pertinent clinical information, including history, physical exam and plan: Yes Notes (Text): Patient seen, examined, and case discussed with day-time resident. Patient seen, examined, with daughters at bedside. Patient ordered for repeat urine culture; given yeast in prior culture. Family trying to arrange for insurance for the patient at this time. Patient not suitable for home; will need constant monitoring, rehabilitation, and monitoring of peg feeds. Patient currently has a persistent yeast in the urine which has not resolved with Diflucan IV. Continue present management Assessment/Plan (1) Intracranial hemorrhage Assessment & Plan: 10/18 CT Head: Left basal ganglia acute hemorrhage, possibly hypertensive with associated intraventricular hemorrhage and mass effect upon the left lateral aspect of the 3rd ventricle with the tip shift of the 3rd ventricle towards the right side. No generalized midline shift. Air-fluid level in sphenoid sinus common nonspecific. Please correlate for concern regarding acute sinusitis. Mild involutional changes. 10/19 CT Head: little interval change in the known 2.0 x 2.7 acute hematoma in left thalamus with intra ventricular extension of hemorrhage. Interval mild worsening of obstructive hydrocephalus. 10/24 CT Head: little interval change in the size of left thalamic hemorrhage 2.4x2.9 cm with intraventricular extension of hemorrhage and mild obstructive hydrocephalus. 2 mm midline shift from left to right with no evidence of herniation. Near complete resolution of hemorrhage within 4th ventricle. 11/03/16 CT Head; Interval decrease in size and density left basal ganglia hematoma; well-circumscribed peripheral rim of low attentuation edema about hematoma; combination of brain edema and brain necrosis; intraventricular hemorrhage has diminished. Ventricles hae also decreased in size temporal horns and atria remain prominent. Persistent compression of the 3rd and left lateral ventricle * Neurosurgery per initial consult-->patient's prognosis dismal at beginning of admission * Neurology (Dr. Simpson) on board-->per 10/26 note: patient has attained maximum response from neuro point of view from this admission; keep nutritional status and avoid infectious; treat with peg/trach; no antiplatelets for next 4-6 weeks (; maintain MAP ~100) * On baby aspirin 81mg PO daily; discussed with neurology with 11/22/16 Status: Acute (2) Hypertensive emergency Assessment & Plan: * Controlled * Norvasc 5mg PO daily * monitor vital signs (3) Acute respiratory failure Assessment & Plan: * s/p tracheostomy 10/28/16 * Patient completed trach collar. * Weaning completed; off ventilator * Saturating well. * Monitor dressing change of trach site * Pulmonary (Dr. Bailey) consulted to assist with weaning protocol * Mucomyst PRN to help thin out secretions * Duonebs PRN shortness of breathe * monitor and may need suctioning PRN Status: resolved (4) CVA (cerebral vascular accident) Assessment & Plan: * Hemorrhagic stroke with associated hypotension and basal ganglia involvement * [id number]:5.7 * Cholestrol: 202, TG: LDL:130 HDL:52 * Started on Aspirin 81mg PO daily * Blood pressure control monitoring * Start on Crestor 5mg POqHS * s/p peg placement; feedings via peg started on 11/17/16; monitor for residual * Patient currently on 60cc/hr with 400cc Q 8 hours of water flushes (5) Sepsis Per 11/05; Fever 103F and associated leukocytosis: 21.8; infection: pneumonia Infectious disease on board (Dr. Chavez) 10/21 Sputum-Klebsiella (sensitive to Maxipime) 10/25 Serratia and Enterobacter (sensitive to Maxipime) 10/31 Sputum: normal 11/06: Enterobacter which is sensitive Meropenem (switch from Maxipime) 11/06 Urine culture: yeast 11/09 Urine culture: yeast Blood cultures: 11/09: no growth for 5 days X2 Repeat sputum: normal kalin Urine culture: yeast-->f/u with Dr. Chavez for any further recommendation * D/c Meropenem 11/22/16 * Renewed Diflucan until repeat urine culture is completed (6) Hypernatremia * Free water: 400 water Q 8hours flushes peg * sodium normalized (7) Prophylactic care * s/p peg placement * Weaned off vent; saturating well on trach * Will need PT/OT * Family trying to secure insurance for the patient and coordinate with case management * follow-up with dietary for further recommendations * on peg feedings/fluid flushes Disposition * Pending insurance for retirement care facility for rehabilitation and peg feedings, will need constant monitoring. Patient currently wears mittens to prevent him from pulling on his tubes and is unsafe for home.
[2016-11-25] MEDS: Saccharomyces Boulardi 250 mg Cap PO SCH ×2 (09:58→18:50)
[2016-11-25] MEDS: Pantoprazole 40 mg Susp UD PO SCH (09:58)
[2016-11-25] MEDS: Fluconazole IV 200mg/100 ml NS 100 ML IVPB SCH (20:50)
--- NOTE | 2016-11-25 23:32 | CP.PCM.PN ---
<ArianneKarena - Last Filed: 11/26/16 00:33> Subjective - Date & Time of Evaluation Date of Evaluation: 11/26/16 Time of Evaluation: 00:45 - Subjective Subjective: Patient seen and examined at bedside. Patient awake and alert. Nursing denies acute events. Patient able to move left side of body. Objective - Vital Signs/Intake and Output Vital Signs (last 24 hours): Temp Pulse Resp BP Pulse Ox 97.1 F L 80 20 117/78 100 11/25/16 15:15 11/25/16 15:15 11/25/16 15:15 11/25/16 15:15 11/25/16 15:15 Intake and Output: 11/25/16 11/26/16 18:59 06:59 Intake Total 880 880 Output Total 800 500 Balance 80 380 - Medications Medications: Current Medications Acetaminophen (Tylenol 325mg Tab) 650 mg PO Q6 PRN PRN Reason: Fever >100.4 F Last Admin: 11/24/16 09:59 Dose: 650 mg Acetylcysteine (Acetylcysteine 20%) 4 ml INH Q6H OMAR Last Admin: 11/25/16 13:16 Dose: 4 ml Albuterol Sulfate (Albuterol 0.083% Inhal Kim (2.5 Mg/3 Ml) Ud) 2.5 mg INH RQ6 OMAR Last Admin: 11/25/16 13:16 Dose: 2.5 mg Amlodipine Besylate (Norvasc) 5 mg PO DAILY O[facility] Last Admin: 11/25/16 09:58 Dose: 5 mg Aspirin (Aspirin Chewable) 81 mg GT DAILY O[facility] Last Admin: 11/25/16 09:58 Dose: 81 mg Fluconazole (Diflucan Iv 200 Mg/100 Ml Ns) 100 mls @ 100 mls/hr IVPB Q24H O[facility] Last Admin: 11/25/16 20:50 Dose: 100 mls/hr Pantoprazole Sodium (Protonix Susp) 40 mg PO DAILY O[facility] Last Admin: 11/25/16 09:58 Dose: 40 mg Rosuvastatin Calcium (Crestor) 5 mg GT HS O[facility] Last Admin: 11/25/16 22:17 Dose: 5 mg Saccharomyces Boulardii (Florastor) 250 mg PO BID OMAR Last Admin: 11/25/16 18:50 Dose: 250 mg - Labs Labs: 11/23/16 07:15 11/23/16 07:15 PT 12.9 SECONDS (9.7-12.2) H 11/15/16 13:58 INR 1.2 11/15/16 13:58 APTT 39 SECONDS (21-34) H 11/15/16 13:58 - Constitutional Appears: Non-toxic, No Acute Distress - Head Exam Head Exam: ATRAUMATIC, NORMAL INSPECTION, NORMOCEPHALIC - Eye Exam Eye Exam: EOMI, Normal appearance, PERRL - ENT Exam ENT Exam: Mucous Membranes Moist Additional comments: trach in place, no blood noted - Neck Exam Neck Exam: absent: Full ROM Additional comments: turns head to left - Respiratory Exam Respiratory Exam: Clear to Ausculation Bilateral, NORMAL BREATHING PATTERN. absent: Decreased Breath Sounds - Cardiovascular Exam Cardiovascular Exam: +S1, +S2. absent: Tachycardia - GI/Abdominal Exam GI & Abdominal Exam: Soft, Normal Bowel Sounds. absent: Tenderness Additional comments: PEG tube in place - Extremities Exam Extremities Exam: Normal Inspection Additional comments: moves only left side of body - Neurological Exam Neurological Exam: Alert, Awake Additional comments: non verbal Assessment and Plan - Assessment and Plan (Free Text) Assessment: 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 11/26: Trach care per nurse and collar in place 11/25: Trach care being provided by nursing, secretions noted, trach collar in place 11/24: Trach collar with copious secretions, trach care as per nursing 11/23: Stable, trach collar care as per nursing, continues with copious secretions 11/22: Trach collar in place, no secretions audible this morning, cont ASA daily 11/21: Trach collar in place, secretions audible- nursing notified; ASA 81 mg daily started as per neuro 11/19: Minimal secretions at trach, stable 11/18: Trach collar in place, stable 11/17: On trach collar, stable, lots of secretions 11/16: Stable on trach collar, no changes 11/15: Stable, no changes, trach collar in place 11/14: trach collar in place 11/13: Pt still with secretions, respiratory informed and will address 11/11: Secretions continued, started duonebs and mucomyst, informed nursing to do trach care and suctioning 11/10: Pt with audible secretions on trach collar- nursing informed, OGT in place 11/09: Pt resting comfortably in bed, trach to trach collar- tolerating w/some secretions as per respiratory, OGT In place 11/08: Resting comfortably, trach in place, OGT in place, does not 11/07: Resting comfortably, trach in place 11/06: Trach in place, resting comfortably. Follows simple commands to protrude tongue and move L arm 11/05: did not follow simple commands 11/04: Continues to follows simple commands in [place] Neurology consult - Dr. Simpson advise to schedule trach and PEG. Hold antiplatelets for 4-6 weeks and maintain blood pressure above 100 systolic. Sedation as needed 10/24 CT Head: little interval change in the size of left thalamic hemorrhage 2.4x2.9 cm with intraventricular extension of hemorrhage and mild obstructive hydrocephalus. 2 mm midline shift from left to right with no evidence of herniation. Near complete resolution of hemorrhage within 4th ventricle. 10/19 CT Head: little interval change in the known 2.0 x 2.7 acute hematoma in left thalamus with intra ventricular extension of hemorrhage. Interval mild worsening of obstructive hydrocephalus. 10/18 CT Head: Left basal ganglia acute hemorrhage, possibly hypertensive with associated intraventricular hemorrhage and mass effect upon the left lateral aspect of the 3rd ventricle with the tip shift of the 3rd ventricle towards the right side. No generalized midline shift. Air-fluid level in sphenoid sinus common nonspecific. Please correlate for concern regarding acute sinusitis. Mild involutional changes. GCS - 8T (E4 VT M4) SELDOVIA II 10.0, 12% estimated non-operative mortality 11/03- CT brain w/o cont for re-evaluation of bleed w/findings of Interval decrease in size and density left basal ganglia hematoma however well- circumscribed peripheral rim of low-attenuation edema about the hematoma likely represent some combination of brain edema as well as of brain necrosis. Intraventricular hemorrhage has diminished. Ventricles have also decreased in size though the temporal horns and atria remain prominent compared to the compressed remaining ventricular system. There is persistent compression of the 3rd and left lateral ventricle Chronic white matter and basal nuclei ischemic changes. December 07- reassess pt need for anticoagulation with neurology HTN: 11/26: BP 117/78; cont Norvasc 11/25: BP 106/71- cont Norvasc 11/24: BP WNL- cont Norvasc 11/23: 126/78m cont Norvasc 11/22: BP 118/78, cont Norvasc/monitor 11/21: BP 128/89, cont Norvasc 11/19: BP stable, c/w current management 11/18: BP 145/89; Cont Norvasc 11/17: 150/89; cont Norvasc 11/16: BP 138/88,- cont Norvasc 11/15: BP 142/83, cont Norvasc/monitor VS 11/14:BP 146/95, cont Norvasc 11/12: BP controlled 11/11: BP 134/91, started Norvasc 5mg Daily 11/10: BP 135/90, will d/c IVF 11/09: BP 169/94- same as previous 11/08: BP 148/95, slight elevated, but mostly WNL- continue to hold Hydralazine 11/06: BP elevated 161/99; continue to monitor 11/05: BP WNL Amlodipine 10 mg POQD Hydralazine 25 mg PO BID - currently being held- BP WNL Losartan 100 mg POQD Labetalol 200 mg PO Q12H Respiratory failure on trach collar: 11/26: Trach collor non-bloody. No acute distress. 11/25: Pulm following, trach collar in place, mucus secretions noted, being cleaned up by nursing 11/24: Trach collar with secretions, non bloody, pulm following 11/23: Trach collar in place, pt tolerating, pulm following 11/22: TC in place, care as per respiratory, nursing, pulm following 11/21: Trach collar at 30%FiO2, pulm following, trach care as per respiratory and nursing 11/20: no changes, pul following 11/18: Trach collar at 30% FiO2, pulm following 11/17: Pulm following, pt on 30%FiO2 via trach collar- stable 11/16: Pulm following - pt on T tube for PEG 11/15: Pulm following- cont trach collar, pulm toilet 11/14: Still tolerating trach collar off vent, pulm following 11/13: Off of vent, tolerating well. 11/11: Pulm recs- Continue weaning with trials off vent, continue nebulizer treatments 11/10: On trach collar, pulm consulted for potential weaning, mucomyst ordered for secretions 11/08: Trial pt on trach collar w/o mech vent Pulm consulted for trach weaning protocol- Leo 11/08: Trial pt on trach collar w/o mech vent 11/07: Trach collar w/CPAP 11/06: Trach in place. On mech vent s/p tracheostomy Trach tube care CPAP ABG: -10/29 pH 7.46, CO 35, O2 90, HCO3 26.0 -10/28 pH 7.46, CO2 35, O2 73, HCO3 25.9 -10/27 pH 7.49, CO2 33, O2 74, HCO3 26.5 -10/26 pH 7.5, CO2 32, O2 91, HCO3 26.6 -10/24 pH 7.47, CO2 35, O2 119, HCO3 26.5 -10/23 pH 7.47, CO2 33, O2 66, HCO3 25.5 -10/22 pH 7.52, CO2 33, O2 57, HCO3 28.1 -10/21 pH 7.48, CO2 38, O2 79, HCO3 28.5 -10/20 pH 7.46, CO2 37, O2 187 HCO3 26.9 -10/19 pH 7.46, CO2 38, O2 214, HCO3 27.4 Imaging 11/08 CXR-Tracheostomy tube in place. Other lines and tubes in stable position. Mild patchy increased markings in the right infrahilar region. Biapical pleural thickening. 11/02/CXR - repeat CXR for replacement of OGT w/Support lines tubes - normally positioned No interval pathology noted 11/02 CXR - Interval improvement in the right lower lung since the previous study. Appropriate position of the right-sided PICC line with the tip is likely at the SVC right atrium junction 11/01 CXR - The in situ tracheostomy tube and NG tube positions are as before. Mild interval prominence of the right infrahilar bronchovascular markings either due to technique or subtle interval patchy infiltrate. Clinical follow- up recommended 10/31 CXR -In situ tracheostomy tube remains in good position. NGT w/tip overlying LUQ of the abdomen unchanged. Continued improvement right lung base. 10/28 CXR No focal airspace opacity 10/27 CXR No active disease 10/26 CXR - Mild venous congestion. Right hilar prominence 10/24 CXR Mild venous congestion. Mild right infrahilar prominence 10/23 CXR - Mild venous congestion. right hilar prominence. Biapical pleural thickening upper lobe granulomatous changes. lines and tubes in stable position. 10/22 CXR - Worsening consolidative changes to right mid to lower lung zone. lines and tubes in stable position. 10/20 CXR - Distal tip of an endotracheal tube terminates approximately 4.6 cm above the brisa. Left IJ approach Central venous catheter terminates at expected location of the left innominate vein. Nasogastric tube extends to expected location of the stomach 10/19 CXR New nasogastric tube extends to distal esophagus, above the diaphragm. Repositioning is advised. ET tube unchanged. No infiltrate. 10/18 CXR ET tube proximal to brisa, no acute pulmonary pathology official read pending Head of bed to 30* Keep O2 Sat >92% Dysphagia 11/26: PEG in place. Monitor for residuals of tube feeds 11/25: PEG in place, residuals of 5cc/night per nursing 11/24: PEG tube in place, no residuals as per nursing, tolerating 60cc/hr tube feeds 11/23: Dietary recs for goal of 60cc/hr tube feeds, pt tolerating new goal, no residuals. PEG tube in place. 11/22: No residuals, dietary reconsulted for recs 11/21: Pt at goal of 50cc/hr tube feeds, PEG tube in place, no drainage noted 11/19: tolerating feedings 11/18: Tube feeds to 30cc today, keep free water flushes 11/17: PEG tube placed, tube feeds to start at noon, Dietary recs- Isosource 1.5, goal rate 50ml; Free water flushes 300cc Q8H 11/16: PEG tube today, tube feeds held 11/15: PEG tube in AM per GI, told Tube feeds after MN- NPO and nursing order in 11/14: No residuals overnight, ok to increase rate to 30cc/hr, GI re-consulted for PEG tube placement 11/11: Pt w/10cc residuals- kept at rate of 20cc/hr, will consider increasing by 10cc tomorrow if no residuals 11/10: Tube feeds stable 11/09: Tube feeds at 30cc/hr, no reported residuals. Advance by 10cc per day until goal of 50cc. 11/08- OGT placed last night, position verified- ok to use OGT for tube feeds 11/07: NPO- no access to stomach 11/05: OGT removed due to possible contribution to fever/sepsis. Feeding tube via oropharynx replaced 11/02 after pt removed position verified by CXR Feeding tube via oropharynx replaced 11/01 Position verified by CXR NGT was advanced 10/20 - d/c'd Consulted GI- Dr. Renteria- PEG tube placement when not having fevers/ leukocytosis Anemia- stable 11/26: No labs 11/25: No labs today 11/24: No labs today 11/23: H/H 10.8/33.3 11/22: No labs today 11/21: Labs from 11/20: H/H 11/34.2- stable 11/18: No labs 11/17: H/H 11.9/36.5 11/16: H/H 12.2/38.1; PT 12.9, INR 1.2, PTT 39 11/15: H/H- 11.4/35.5, FU PT/INR/PTT 11/14: H/H - 11.3/35.2 11/11: H/H- 11.1/34.8 11/10: H/H- 11.5/36.1 11/09: H/H- 12.2/39.3 11/08: H/H- 10.4/33.5 11/07: H/H- 11.1/35.8 11/06: f/u H&H, monitor 11/05-11/06: H&H low, stable, continue to monitor H&H: 12.5/40.2- stable Intracranial bleed No coagulopathy Contraindication for anticoagulation Monitor Sepsis- resolved 11/26: Continue Diflucan as per ID, FU repeat Urine cx ordered today 11/25: Cont Diflucan as per ID, FU repeat Urine cx ordered today 11/24: Cont diflucan 11/23: urine cx pos for yeast again. ID informed, told to continue Diflucan. 11/22: FU urine cx- if negative, will d/c Diflucan. Pt off Merrem and vanc. 11/21: Per ID- ok to de-escalate Antibiotics- Vanc discontinued last week, Merrem discontinued today, will continue Diflucan until repeat Urine cx resulted - [place] catheter changed on 11/18 11/19: no changes, afebrile 11/18: Afebrile over last 24H, no labs today, per ID- de-escalate Abx- do not renew Vanc, will cont merrem over the weekend, then d/c on 11/21. Change the [place] catheter if urine cx still positive for yeast. 11/17: Afebrile over last 24H, no leukocytosis- stable, no changes 11/16: Afebrile over last 24H, no leukocytosis- stable, no changes 11/15: Afebrile over last 24H, no leukocytosis- stable FU Vanc trough at 1pm 11/15 11/14: Afebrile over last 24H, no leukocytosis 11/13: Afebrile, labs stable 11/12: Afebrile overnight, f/u am labs 11/11: Afebrile over last 24H, WBC down trending, now 12.3 from 12.6, per ID: resume vancomcyin; trough 10-15; and monitor wbc count FU sputum cxr- talked to lab- results will be available on 11/12- so far only normal kalin growing FU vanc trough on 11/12 before 3rd dose 11/10: Afebrile over last 24H, WBC down trending, no w 12.6 from 14.1, Blood cx neg x 4 D, repeat urine cxr pos for yeast 11/09: Afebrile over last 24H, WBC increased from 11.9 to 14.1; Blood/urine/ sputum cxr sent Vanc trough 8.4 Urine cxr pos for yeast Diflucan 200mg Q24H ordered ID consulted for adjustement of antibiotics/antifungals- awaiting recs 11/08: Afebrile over last 24H, WBC 11.9, Bands 3 11/07: Afebrile over last 24H, WBC 16.3, Bands 6 Trach asp pos for Gram neg rods Blood cxr neg x 48H 11/06: Continue to monitor WBC 11/05: Leukocytosis 21.8 from 19.4, 16.7 - trending up 11/05: Vanc trough - 5.1 Afebrile over last 24H -Started Vanco 1gm Q24H vanco through 11/02 - 5.1 11/01- apr work up sent: blood cxr, urine cxr, CXR, C diff stool Blood cxr neg x 48H urine cxr neg Bandemia 5 10/31- Trach asp cx - normal kalin 10/31 - Urine ([place]) cxr neg 10/25 Sputum cx: Serratia marcescens and Enterobactor aerogenes 10/21 Sputum cx: Klebsiella pneumoniae Hold change of antibiotics. Fully aware of the low grade temperature, and increase in WBCs. Patient is hemodynamically stable. IV Cefepime 1 gram Q8H Acetaminophen 650 mg Q6 PRN for fever ID following- Kathy- continue Merrem and Vanco due to aspiration and pos Enterobacter Aerogenes Per Micro- Enterobacter aerogenes sensitive to merrem cont merrem Per ID: increase vanc to 1gm Q12H, FU vanc peak and trough on 3rd dose, cont diflucan Vanc trough 13.8- Vanco held, no peak done due to high trough Muscular deconditioning due to being bed bound PT/OT to work with pt Pt and family member at bedside instructed on self-rehab exercises Monitor tracheostomy site for drainage, erythema, hematoma, signs of infection. Prophylaxis: GI - Protonix 40 mg IVP daily DVT - contraindicated 09/15 to intracranial bleed WIll re-asses VTE needs on 12/07 Dispo: Con current mgmt ID following Pulm following Cont condom catheter Cont general body care SW eval for possible LTAC after PEG placement PEG tube with tube feeding in place @ goal of 60 cc/hour per dietary Labs Q7days PT/OT Pt in process of being added to 's insurance <Apple Vidal V - Last Filed: 11/26/16 12:15> Objective - Vital Signs/Intake and Output Vital Signs (last 24 hours): Temp Pulse Resp BP Pulse Ox 98.2 F 69 20 117/77 100 11/26/16 08:00 11/26/16 10:36 11/26/16 08:00 11/26/16 08:00 11/26/16 08:00 Intake and Output: 11/26/16 11/26/16 06:59 18:59 Intake Total 880 480 Output Total 500 300 Balance 380 180 - Medications Medications: Current Medications Acetaminophen (Tylenol 325mg Tab) 650 mg PO Q6 PRN PRN Reason: Fever >100.4 F Last Admin: 11/24/16 09:59 Dose: 650 mg Acetylcysteine (Acetylcysteine 20%) 4 ml INH Q6H [facility] Last Admin: 11/26/16 07:41 Dose: 4 ml Albuterol Sulfate (Albuterol 0.083% Inhal Kim (2.5 Mg/3 Ml) Ud) 2.5 mg INH RQ6 OMAR Last Admin: 11/26/16 07:40 Dose: 2.5 mg Amlodipine Besylate (Norvasc) 5 mg PO DAILY [facility] Last Admin: 11/26/16 09:57 Dose: 5 mg Aspirin (Aspirin Chewable) 81 mg GT DAILY [facility] Last Admin: 11/26/16 09:56 Dose: 81 mg Fluconazole (Diflucan Iv 200 Mg/100 Ml Ns) 100 mls @ 100 mls/hr IVPB Q24H [facility] Last Admin: 11/25/16 20:50 Dose: 100 mls/hr Pantoprazole Sodium (Protonix Susp) 40 mg PO DAILY [facility] Last Admin: 11/26/16 09:57 Dose: 40 mg Rosuvastatin Calcium (Crestor) 5 mg GT HS [facility] Last Admin: 11/25/16 22:17 Dose: 5 mg Saccharomyces Boulardii (Florastor) 250 mg PO BID [facility] Last Admin: 11/26/16 09:56 Dose: 250 mg - Labs Labs: 11/23/16 07:15 11/23/16 07:15 PT 12.9 SECONDS (9.7-12.2) H 11/15/16 13:58 INR 1.2 11/15/16 13:58 APTT 39 SECONDS (21-34) H 11/15/16 13:58 Attending/Attestation - Attestation I have personally seen and examined this patient.: Yes I have fully participated in the care of the patient.: Yes I have reviewed all pertinent clinical information, including history, physical exam and plan: Yes Notes (Text): Patient seen, examined, and case discussed with day-time resident. Patient seen, examined, with daughters at bedside. Repeat urine culture shows contamination. Repeat urine studies today. Family trying to arrange for insurance for the patient at this time. Patient not suitable for home; will need constant monitoring, rehabilitation, and monitoring of peg feeds. Patient currently has a persistent yeast in the urine which has not resolved with Diflucan IV. Continue present management Assessment/Plan (1) Intracranial hemorrhage Assessment & Plan: 10/18 CT Head: Left basal ganglia acute hemorrhage, possibly hypertensive with associated intraventricular hemorrhage and mass effect upon the left lateral aspect of the 3rd ventricle with the tip shift of the 3rd ventricle towards the right side. No generalized midline shift. Air-fluid level in sphenoid sinus common nonspecific. Please correlate for concern regarding acute sinusitis. Mild involutional changes. 10/19 CT Head: little interval change in the known 2.0 x 2.7 acute hematoma in left thalamus with intra ventricular extension of hemorrhage. Interval mild worsening of obstructive hydrocephalus. 10/24 CT Head: little interval change in the size of left thalamic hemorrhage 2.4x2.9 cm with intraventricular extension of hemorrhage and mild obstructive hydrocephalus. 2 mm midline shift from left to right with no evidence of herniation. Near complete resolution of hemorrhage within 4th ventricle. 11/03/16 CT Head; Interval decrease in size and density left basal ganglia hematoma; well-circumscribed peripheral rim of low attentuation edema about hematoma; combination of brain edema and brain necrosis; intraventricular hemorrhage has diminished. Ventricles hae also decreased in size temporal horns and atria remain prominent. Persistent compression of the 3rd and left lateral ventricle * Neurosurgery per initial consult-->patient's prognosis dismal at beginning of admission * Neurology (Dr. Simpson) on board-->per 10/26 note: patient has attained maximum response from neuro point of view from this admission; keep nutritional status and avoid infectious; treat with peg/trach; no antiplatelets for next 4-6 weeks (; maintain MAP ~100) * On baby aspirin 81mg PO daily; discussed with neurology with 11/22/16 Status: Acute (2) Hypertensive emergency Assessment & Plan: * Controlled * Norvasc 5mg PO daily * monitor vital signs (3) Acute respiratory failure Assessment & Plan: * s/p tracheostomy 10/28/16 * Patient completed trach collar. * Weaning completed; off ventilator * Saturating well. * Monitor dressing change of trach site * Pulmonary (Dr. Bailey) consulted to assist with weaning protocol * Mucomyst PRN to help thin out secretions * Duonebs PRN shortness of breathe * monitor and may need suctioning PRN Status: resolved (4) CVA (cerebral vascular accident) Assessment & Plan: * Hemorrhagic stroke with associated hypotension and basal ganglia involvement * [id number]:5.7 * Cholestrol: 202, TG: LDL:130 HDL:52 * Started on Aspirin 81mg PO daily * Blood pressure control monitoring * Start on Crestor 5mg POqHS * s/p peg placement; feedings via peg started on 11/17/16; monitor for residual * Patient currently on 60cc/hr with 400cc Q 8 hours of water flushes (5) Sepsis Per 11/05; Fever 103F and associated leukocytosis: 21.8; infection: pneumonia Infectious disease on board (Dr. Chavez) 10/21 Sputum-Klebsiella (sensitive to Maxipime) 10/25 Serratia and Enterobacter (sensitive to Maxipime) 10/31 Sputum: normal 11/06: Enterobacter which is sensitive Meropenem (switch from Maxipime) 11/06 Urine culture: yeast 11/09 Urine culture: yeast Blood cultures: 11/09: no growth for 5 days X2 Repeat sputum: normal kalin Repeat urine studies today; patient has persistent yeast in the blood * D/c Meropenem 11/22/16 * Renewed Diflucan until repeat urine culture is completed (6) Hypernatremia * Free water: 400 water Q 8hours flushes peg * sodium normalized (7) Prophylactic care * s/p peg placement * Weaned off vent; saturating well on trach * Will need PT/OT * Family trying to secure insurance for the patient and coordinate with case management * follow-up with dietary for further recommendations * on peg feedings/fluid flushes Disposition * Pending insurance for longterm care facility for rehabilitation and peg feedings, will need constant monitoring. Patient currently wears mittens to prevent him from pulling on his tubes and is unsafe for home.
[2016-11-26] MEDS: Acetylcysteine 20% Inhal Soln (4ml) INH SCH ×4 (01:59→19:46)
[2016-11-26] MEDS: Albuterol 0.083% Inhal Sol (2.5 mg/3 mL) UD INH SCH ×4 (01:59→19:46)
[2016-11-26] MEDS: Saccharomyces Boulardi 250 mg Cap PO SCH ×2 (09:56→18:10)
[2016-11-26] MEDS: Pantoprazole 40 mg Susp UD PO SCH (09:57)
[2016-11-26] MEDS: Fluconazole IV 200mg/100 ml NS 100 ML IVPB SCH (20:00)
[2016-11-27] MEDS: Albuterol 0.083% Inhal Sol (2.5 mg/3 mL) UD INH SCH ×3 (01:54→19:10)
[2016-11-27] MEDS: Acetylcysteine 20% Inhal Soln (4ml) INH SCH ×4 (01:54→19:10)
--- NOTE | 2016-11-27 02:59 | CP.PCM.PN ---
<ArianneKarena - Last Filed: 11/27/16 03:04> Subjective - Date & Time of Evaluation Date of Evaluation: 11/27/16 Time of Evaluation: 02:57 - Subjective Subjective: Patient seen and examined at patient. Patient awake and alert, smiling. He denies chest pain and abdominal pain. No acute events overnight per nursing. Objective - Vital Signs/Intake and Output Vital Signs (last 24 hours): Temp Pulse Resp BP Pulse Ox 98.3 F 82 20 125/81 100 11/27/16 00:00 11/27/16 00:00 11/27/16 00:00 11/27/16 00:00 11/27/16 00:00 Intake and Output: 11/26/16 11/27/16 18:59 06:59 Intake Total 480 Output Total 300 Balance 180 - Medications Medications: Current Medications Acetaminophen (Tylenol 325mg Tab) 650 mg PO Q6 PRN PRN Reason: Fever >100.4 F Last Admin: 11/24/16 09:59 Dose: 650 mg Acetylcysteine (Acetylcysteine 20%) 4 ml INH Q6H OMAR Last Admin: 11/27/16 01:54 Dose: 4 ml Albuterol Sulfate (Albuterol 0.083% Inhal Kim (2.5 Mg/3 Ml) Ud) 2.5 mg INH RQ6 OMAR Last Admin: 11/27/16 01:54 Dose: 2.5 mg Amlodipine Besylate (Norvasc) 5 mg PO DAILY OMAR Last Admin: 11/26/16 09:57 Dose: 5 mg Aspirin (Aspirin Chewable) 81 mg GT DAILY ON LICENSE OF [facility] Last Admin: 11/26/16 09:56 Dose: 81 mg Fluconazole (Diflucan Iv 200 Mg/100 Ml Ns) 100 mls @ 100 mls/hr IVPB Q24H OMAR Last Admin: 11/26/16 20:00 Dose: 100 mls/hr Pantoprazole Sodium (Protonix Susp) 40 mg PO DAILY OMAR Last Admin: 11/26/16 09:57 Dose: 40 mg Rosuvastatin Calcium (Crestor) 5 mg GT HS OMAR Last Admin: 11/26/16 21:16 Dose: 5 mg Saccharomyces Boulardii (Florastor) 250 mg PO BID ON LICENSE OF [facility] Last Admin: 11/26/16 18:10 Dose: 250 mg - Labs Labs: 11/23/16 07:15 04/12/17 07:15 PT 12.9 SECONDS (9.7-12.2) H 11/15/16 13:58 INR 1.2 11/15/16 13:58 APTT 39 SECONDS (21-34) H 11/15/16 13:58 - Constitutional Appears: Non-toxic, No Acute Distress - Head Exam Head Exam: ATRAUMATIC, NORMAL INSPECTION, NORMOCEPHALIC - Eye Exam Eye Exam: EOMI - Neck Exam Additional comments: trach in place - Cardiovascular Exam Cardiovascular Exam: +S1, +S2. 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 11/27: Continue current management 11/26: Trach care per nurse and collar in place 11/25: Trach care being provided by nursing, secretions noted, trach collar in place 11/24: Trach collar with copious secretions, trach care as per nursing 11/23: Stable, trach collar care as per nursing, continues with copious secretions 11/22: Trach collar in place, no secretions audible this morning, cont ASA daily 11/21: Trach collar in place, secretions audible- nursing notified; ASA 81 mg daily started as per neuro 11/19: Minimal secretions at trach, stable 11/18: Trach collar in place, stable 11/17: On trach collar, stable, lots of secretions 11/16: Stable on trach collar, no changes 11/15: Stable, no changes, trach collar in place 11/14: trach collar in place 11/13: Pt still with secretions, respiratory informed and will address 11/11: Secretions continued, started duonebs and mucomyst, informed nursing to do trach care and suctioning 11/10: Pt with audible secretions on trach collar- nursing informed, OGT in place 11/09: Pt resting comfortably in bed, trach to trach collar- tolerating w/some secretions as per respiratory, OGT In place 11/08: Resting comfortably, trach in place, OGT in place, does not 11/07: Resting comfortably, trach in place 11/06: Trach in place, resting comfortably. Follows simple commands to protrude tongue and move L arm 11/05: did not follow simple commands 11/04: Continues to follows simple commands in [place] Neurology consult - Dr. Simpson advise to schedule trach and PEG. Hold antiplatelets for 4-6 weeks and maintain blood pressure above 100 systolic. Sedation as needed 10/24 CT Head: little interval change in the size of left thalamic hemorrhage 2.4x2.9 cm with intraventricular extension of hemorrhage and mild obstructive hydrocephalus. 2 mm midline shift from left to right with no evidence of herniation. Near complete resolution of hemorrhage within 4th ventricle. 10/19 CT Head: little interval change in the known 2.0 x 2.7 acute hematoma in left thalamus with intra ventricular extension of hemorrhage. Interval mild worsening of obstructive hydrocephalus. 10/18 CT Head: Left basal ganglia acute hemorrhage, possibly hypertensive with associated intraventricular hemorrhage and mass effect upon the left lateral aspect of the 3rd ventricle with the tip shift of the 3rd ventricle towards the right side. No generalized midline shift. Air-fluid level in sphenoid sinus common nonspecific. Please correlate for concern regarding acute sinusitis. Mild involutional changes. GCS - 8T (E4 VT M4) [facility] [place] [facility] 10.0, 12% estimated non-operative mortality 11/03- CT brain w/o cont for re-evaluation of bleed w/findings of Interval decrease in size and density left basal ganglia hematoma however well- circumscribed peripheral rim of low-attenuation edema about the hematoma likely represent some combination of brain edema as well as of brain necrosis. Intraventricular hemorrhage has diminished. Ventricles have also decreased in size though the temporal horns and atria remain prominent compared to the compressed remaining ventricular system. There is persistent compression of the 3rd and left lateral ventricle Chronic white matter and basal nuclei ischemic changes. December 07- reassess pt need for anticoagulation with neurology Hypertensive emergency: 11/27: BP 125/81; continue Norvasc 11/26: BP 117/78; cont Norvasc 11/25: BP 106/71- cont Norvasc 11/24: BP WNL- cont Norvasc 11/23: 126/78m cont Norvasc 11/22: BP 118/78, cont Norvasc/monitor 11/21: BP 128/89, cont Norvasc 11/19: BP stable, c/w current management 11/18: BP 145/89; Cont Norvasc 11/17: 150/89; cont Norvasc 11/16: BP 138/88,- cont Norvasc 11/15: BP 142/83, cont Norvasc/monitor VS 11/14:BP 146/95, cont Norvasc 11/12: BP controlled 11/11: BP 134/91, started Norvasc 5mg Daily 11/10: BP 135/90, will d/c IVF 11/09: BP 169/94- same as previous 11/08: BP 148/95, slight elevated, but mostly WNL- continue to hold Hydralazine 11/06: BP elevated 161/99; continue to monitor 11/05: BP WNL Amlodipine 10 mg POQD Hydralazine 25 mg PO BID - currently being held- BP WNL Losartan 100 mg POQD Labetalol 200 mg PO Q12H Acute Respiratory failure: 11/26: Trach collor non-bloody. No acute distress. 11/25: Pulm following, trach collar in place, mucus secretions noted, being cleaned up by nursing 11/24: Trach collar with secretions, non bloody, pulm following 11/23: Trach collar in place, pt tolerating, pulm following 11/22: TC in place, care as per respiratory, nursing, pulm following 11/21: Trach collar at 30%FiO2, pulm following, trach care as per respiratory and nursing 11/20: no changes, pul following 11/18: Trach collar at 30% FiO2, pulm following 11/17: Pulm following, pt on 30%FiO2 via trach collar- stable 11/16: Pulm following - pt on T tube for PEG 11/15: Pulm following- cont trach collar, pulm toilet 11/14: Still tolerating trach collar off vent, pulm following 11/13: Off of vent, tolerating well. 11/11: Pulm recs- Continue weaning with trials off vent, continue nebulizer treatments 11/10: On trach collar, pulm consulted for potential weaning, mucomyst ordered for secretions 11/08: Trial pt on trach collar w/o mech vent Pulm consulted for trach weaning protocol- Leo 11/08: Trial pt on trach collar w/o mech vent 11/07: Trach collar w/CPAP 11/06: Trach in place. On mech vent s/p tracheostomy Trach tube care CPAP ABG: -10/29 pH 7.46, CO 35, O2 90, HCO3 26.0 -10/28 pH 7.46, CO2 35, O2 73, HCO3 25.9 -10/27 pH 7.49, CO2 33, O2 74, HCO3 26.5 -10/26 pH 7.5, CO2 32, O2 91, HCO3 26.6 -10/24 pH 7.47, CO2 35, O2 119, HCO3 26.5 -10/23 pH 7.47, CO2 33, O2 66, HCO3 25.5 -10/22 pH 7.52, CO2 33, O2 57, HCO3 28.1 -10/21 pH 7.48, CO2 38, O2 79, HCO3 28.5 -10/20 pH 7.46, CO2 37, O2 187 HCO3 26.9 -10/19 pH 7.46, CO2 38, O2 214, HCO3 27.4 Imaging 11/08 CXR-Tracheostomy tube in place. Other lines and tubes in stable position. Mild patchy increased markings in the right infrahilar region. Biapical pleural thickening. 11/02/CXR - repeat CXR for replacement of OGT w/Support lines tubes - normally positioned No interval pathology noted 11/02 CXR - Interval improvement in the right lower lung since the previous study. Appropriate position of the right-sided PICC line with the tip is likely at the SVC right atrium junction 11/01 CXR - The in situ tracheostomy tube and NG tube positions are as before. Mild interval prominence of the right infrahilar bronchovascular markings either due to technique or subtle interval patchy infiltrate. Clinical follow- up recommended 10/31 CXR -In situ tracheostomy tube remains in good position. NGT w/tip overlying LUQ of the abdomen unchanged. Continued improvement right lung base. 10/28 CXR No focal airspace opacity 10/27 CXR No active disease 10/26 CXR - Mild venous congestion. Right hilar prominence 10/24 CXR Mild venous congestion. Mild right infrahilar prominence 10/23 CXR - Mild venous congestion. right hilar prominence. Biapical pleural thickening upper lobe granulomatous changes. lines and tubes in stable position. 10/22 CXR - Worsening consolidative changes to right mid to lower lung zone. lines and tubes in stable position. 10/20 CXR - Distal tip of an endotracheal tube terminates approximately 4.6 cm above the brisa. Left IJ approach Central venous catheter terminates at expected location of the left innominate vein. Nasogastric tube extends to expected location of the stomach 10/19 CXR New nasogastric tube extends to distal esophagus, above the diaphragm. Repositioning is advised. ET tube unchanged. No infiltrate. 10/18 CXR ET tube proximal to brisa, no acute pulmonary pathology official read pending Head of bed to 30* Keep O2 Sat >92% Dysphagia 11/27: Continue current management 11/26: PEG in place. Monitor for residuals of tube feeds 11/25: PEG in place, residuals of 5cc/night per nursing 11/24: PEG tube in place, no residuals as per nursing, tolerating 60cc/hr tube feeds 11/23: Dietary recs for goal of 60cc/hr tube feeds, pt tolerating new goal, no residuals. PEG tube in place. 11/22: No residuals, dietary reconsulted for recs 11/21: Pt at goal of 50cc/hr tube feeds, PEG tube in place, no drainage noted 11/19: tolerating feedings 11/18: Tube feeds to 30cc today, keep free water flushes 11/17: PEG tube placed, tube feeds to start at noon, Dietary recs- Isosource 1.5, goal rate 50ml; Free water flushes 300cc Q8H 11/16: PEG tube today, tube feeds held 11/15: PEG tube in AM per GI, told Tube feeds after MN- NPO and nursing order in 11/14: No residuals overnight, ok to increase rate to 30cc/hr, GI re-consulted for PEG tube placement 11/11: Pt w/10cc residuals- kept at rate of 20cc/hr, will consider increasing by 10cc tomorrow if no residuals 11/10: Tube feeds stable 11/09: Tube feeds at 30cc/hr, no reported residuals. Advance by 10cc per day until goal of 50cc. 11/08- OGT placed last night, position verified- ok to use OGT for tube feeds 11/07: NPO- no access to stomach 11/05: OGT removed due to possible contribution to fever/sepsis. Feeding tube via oropharynx replaced 11/02 after pt removed position verified by CXR Feeding tube via oropharynx replaced 11/01 Position verified by CXR NGT was advanced 10/20 - d/c'd Consulted GI- Dr. Renteria- PEG tube placement when not having fevers/ leukocytosis Anemia- stable 11/27: Hemoglobin stable 10.8 11/26: No labs 11/25: No labs today 11/24: No labs today 11/23: H/H 10.8/33.3 11/22: No labs today 11/21: Labs from 11/20: H/H 11/34.2- stable 11/18: No labs 11/17: H/H 11.9/36.5 11/16: H/H 12.2/38.1; PT 12.9, INR 1.2, PTT 39 11/15: H/H- 11.4/35.5, FU PT/INR/PTT 11/14: H/H - 11.3/35.2 11/11: H/H- 11.1/34.8 11/10: H/H- 11.5/36.1 11/09: H/H- 12.2/39.3 11/08: H/H- 10.4/33.5 11/07: H/H- 11.1/35.8 11/06: f/u H&H, monitor 11/05-11/06: H&H low, stable, continue to monitor H&H: 12.5/40.2- stable Intracranial bleed No coagulopathy Contraindication for anticoagulation Monitor Sepsis- resolved 11/26: Continue Diflucan as per ID, FU repeat Urine cx ordered today 11/25: Cont Diflucan as per ID, FU repeat Urine cx ordered today 11/24: Cont diflucan 11/23: urine cx pos for yeast again. ID informed, told to continue Diflucan. 11/22: FU urine cx- if negative, will d/c Diflucan. Pt off Merrem and vanc. 11/21: Per ID- ok to de-escalate Antibiotics- Vanc discontinued last week, Merrem discontinued today, will continue Diflucan until repeat Urine cx resulted - [place] catheter changed on 11/18 11/19: no changes, afebrile 11/18: Afebrile over last 24H, no labs today, per ID- de-escalate Abx- do not renew Vanc, will cont merrem over the weekend, then d/c on 11/21. Change the [place] catheter if urine cx still positive for yeast. 11/17: Afebrile over last 24H, no leukocytosis- stable, no changes 11/16: Afebrile over last 24H, no leukocytosis- stable, no changes 11/15: Afebrile over last 24H, no leukocytosis- stable FU Vanc trough at 1pm 11/15 11/14: Afebrile over last 24H, no leukocytosis 11/13: Afebrile, labs stable 11/12: Afebrile overnight, f/u am labs 11/11: Afebrile over last 24H, WBC down trending, now 12.3 from 12.6, per ID: resume vancomcyin; trough 10-15; and monitor wbc count FU sputum cxr- talked to lab- results will be available on 11/12- so far only normal kalin growing FU vanc trough on 11/12 before 3rd dose 11/10: Afebrile over last 24H, WBC down trending, no w 12.6 from 14.1, Blood cx neg x 4 D, repeat urine cxr pos for yeast 11/09: Afebrile over last 24H, WBC increased from 11.9 to 14.1; Blood/urine/ sputum cxr sent Vanc trough 8.4 Urine cxr pos for yeast Diflucan 200mg Q24H ordered ID consulted for adjustement of antibiotics/antifungals- awaiting recs 11/08: Afebrile over last 24H, WBC 11.9, Bands 3 11/07: Afebrile over last 24H, WBC 16.3, Bands 6 Trach asp pos for Gram neg rods Blood cxr neg x 48H 11/06: Continue to monitor WBC 11/05: Leukocytosis 21.8 from 19.4, 16.7 - trending up 11/05: Vanc trough - 5.1 Afebrile over last 24H -Started Vanco 1gm Q24H vanco through 11/02 - 5.1 11/01- apr work up sent: blood cxr, urine cxr, CXR, C diff stool Blood cxr neg x 48H urine cxr neg Bandemia 5 10/31- Trach asp cx - normal kalin 10/31 - Urine ([place]) cxr neg 10/25 Sputum cx: Serratia marcescens and Enterobactor aerogenes 10/21 Sputum cx: Klebsiella pneumoniae Hold change of antibiotics. Fully aware of the low grade temperature, and increase in WBCs. Patient is hemodynamically stable. IV Cefepime 1 gram Q8H Acetaminophen 650 mg Q6 PRN for fever ID following- Kathy- continue Merrem and Vanco due to aspiration and pos Enterobacter Aerogenes Per Micro- Enterobacter aerogenes sensitive to merrem cont merrem Per ID: increase vanc to 1gm Q12H, FU vanc peak and trough on 3rd dose, cont diflucan Vanc trough 13.8- Vanco held, no peak done due to high trough Muscular deconditioning due to being bed bound PT/OT to work with pt Pt and family member at bedside instructed on self-rehab exercises Monitor tracheostomy site for drainage, erythema, hematoma, signs of infection. Prophylaxis: GI - Protonix 40 mg IVP daily DVT - contraindicated 09/15 to intracranial bleed WIll re-asses VTE needs on 12/07 Dispo: Con current mgmt ID following Pulm following Cont condom catheter Cont general body care SW eval for possible LTAC after PEG placement PEG tube with tube feeding in place @ goal of 60 cc/hour per dietary Labs Q7days PT/OT Pt in process of being added to 's insurance <Apple Vidal V - Last Filed: 11/27/16 19:55> Objective - Vital Signs/Intake and Output Vital Signs (last 24 hours): Temp Pulse Resp BP Pulse Ox 98.1 F 82 20 131/85 99 11/27/16 15:15 11/27/16 16:29 11/27/16 15:15 11/27/16 15:15 11/27/16 15:15 Intake and Output: 11/27/16 11/28/16 18:59 06:59 Intake Total 1760 Output Total 600 Balance 1160 - Medications Medications: Current Medications Acetaminophen (Tylenol 325mg Tab) 650 mg PO Q6 PRN PRN Reason: Fever >100.4 F Last Admin: 11/24/16 09:59 Dose: 650 mg Acetylcysteine (Acetylcysteine 20%) 4 ml INH Q6H OMAR Last Admin: 11/27/16 19:10 Dose: 4 ml Albuterol Sulfate (Albuterol 0.083% Inhal Kim (2.5 Mg/3 Ml) Ud) 2.5 mg INH RQ6 ON LICENSE OF [facility] Last Admin: 11/27/16 19:10 Dose: 2.5 mg Amlodipine Besylate (Norvasc) 5 mg PO DAILY ON LICENSE OF [facility] Last Admin: 11/27/16 09:52 Dose: 5 mg Aspirin (Aspirin Chewable) 81 mg GT DAILY ON LICENSE OF [facility] Last Admin: 11/27/16 09:52 Dose: 81 mg Fluconazole (Diflucan Iv 200 Mg/100 Ml Ns) 100 mls @ 100 mls/hr IVPB Q24H ON LICENSE OF [facility] Last Admin: 11/27/16 18:59 Dose: 100 mls/hr Pantoprazole Sodium (Protonix Susp) 40 mg PO DAILY ON LICENSE OF [facility] Last Admin: 11/27/16 09:52 Dose: 40 mg Rosuvastatin Calcium (Crestor) 5 mg GT HS ON LICENSE OF [facility] Last Admin: 11/26/16 21:16 Dose: 5 mg Saccharomyces Boulardii (Florastor) 250 mg PO BID ON LICENSE OF [facility] Last Admin: 11/27/16 17:49 Dose: 250 mg - Labs Labs: 11/23/16 07:15 11/23/16 07:15 PT 12.9 SECONDS (9.7-12.2) H 11/15/16 13:58 INR 1.2 11/15/16 13:58 APTT 39 SECONDS (21-34) H 11/15/16 13:58 Attending/Attestation - Attestation I have personally seen and examined this patient.: Yes I have fully participated in the care of the patient.: Yes I have reviewed all pertinent clinical information, including history, physical exam and plan: Yes Notes (Text): Patient seen, examined, and case discussed with day-time resident. Patient seen, examined this morning. no family at bedside pending repeat urine studies from 11/26/16 Family trying to arrange for insurance for the patient at this time. Patient not suitable for home; will need constant monitoring, rehabilitation, and monitoring of peg feeds. Patient currently has a persistent yeast in the urine which has not resolved with Diflucan IV. Continue present management Assessment/Plan (1) Intracranial hemorrhage Assessment & Plan: 10/18 CT Head: Left basal ganglia acute hemorrhage, possibly hypertensive with associated intraventricular hemorrhage and mass effect upon the left lateral aspect of the 3rd ventricle with the tip shift of the 3rd ventricle towards the right side. No generalized midline shift. Air-fluid level in sphenoid sinus common nonspecific. Please correlate for concern regarding acute sinusitis. Mild involutional changes. 10/19 CT Head: little interval change in the known 2.0 x 2.7 acute hematoma in left thalamus with intra ventricular extension of hemorrhage. Interval mild worsening of obstructive hydrocephalus. 10/24 CT Head: little interval change in the size of left thalamic hemorrhage 2.4x2.9 cm with intraventricular extension of hemorrhage and mild obstructive hydrocephalus. 2 mm midline shift from left to right with no evidence of herniation. Near complete resolution of hemorrhage within 4th ventricle. 11/03/16 CT Head; Interval decrease in size and density left basal ganglia hematoma; well-circumscribed peripheral rim of low attentuation edema about hematoma; combination of brain edema and brain necrosis; intraventricular hemorrhage has diminished. Ventricles hae also decreased in size temporal horns and atria remain prominent. Persistent compression of the 3rd and left lateral ventricle * Neurosurgery per initial consult-->patient's prognosis dismal at beginning of admission * Neurology (Dr. Simpson) on board-->per 10/26 note: patient has attained maximum response from neuro point of view from this admission; keep nutritional status and avoid infectious; treat with peg/trach; no antiplatelets for next 4-6 weeks (; maintain MAP ~100) * On baby aspirin 81mg PO daily; discussed with neurology with 11/22/16 Status: Acute (2) Hypertensive emergency Assessment & Plan: * Controlled * Norvasc 5mg PO daily * monitor vital signs (3) Acute respiratory failure Assessment & Plan: * s/p tracheostomy 10/28/16 * Patient completed trach collar. * Weaning completed; off ventilator * Saturating well. * Monitor dressing change of trach site * Pulmonary (Dr. Bailey) consulted to assist with weaning protocol * Mucomyst PRN to help thin out secretions * Duonebs PRN shortness of breathe * monitor and may need suctioning PRN Status: resolved (4) CVA (cerebral vascular accident) Assessment & Plan: * Hemorrhagic stroke with associated hypotension and basal ganglia involvement * [id number] * Cholestrol: 202, TG: LDL:130 HDL:52 * Started on Aspirin 81mg PO daily * Blood pressure control monitoring * Start on Crestor 5mg POqHS * s/p peg placement; feedings via peg started on 11/17/16; monitor for residual * Patient currently on 60cc/hr with 400cc Q 8 hours of water flushes (5) Sepsis Per 11/05; Fever 103F and associated leukocytosis: 21.8; infection: pneumonia Infectious disease on board (Dr. Chavez) 10/21 Sputum-Klebsiella (sensitive to Maxipime) 10/25 Serratia and Enterobacter (sensitive to Maxipime) 10/31 Sputum: normal 11/06: Enterobacter which is sensitive Meropenem (switch from Maxipime) 11/06 Urine culture: yeast 11/09 Urine culture: yeast Blood cultures: 11/09: no growth for 5 days X2 Repeat sputum: normal kalin Repeat urine studies today; patient has persistent yeast in the blood * D/c Meropenem 11/22/16 * Renewed Diflucan until repeat urine culture is completed (6) Hypernatremia * Free water: 400 water Q 8hours flushes peg * sodium normalized (7) Prophylactic care * s/p peg placement * Weaned off vent; saturating well on trach * Will need PT/OT * Family trying to secure insurance for the patient and coordinate with case management * follow-up with dietary for further recommendations * on peg feedings/fluid flushes Disposition * Pending insurance for care home care facility for rehabilitation and peg feedings, will need constant monitoring. Patient currently wears mittens to prevent him from pulling on his tubes and is unsafe for home.
[2016-11-27 06:48] LABS: RBC URINE 2 /hpf (0-3); URINE BILIRUBIN NEGATIVE (NEGATIVE); URINE BLOOD NEGATIVE (NEGATIVE); URINE COLOR Yellow (YELLOW); URINE GLUCOSE (UA) NORMAL (Normal); URINE KETONE NEGATIVE (NEGATIVE)
[2016-11-27] MEDS: Pantoprazole 40 mg Susp UD PO SCH (09:52)
[2016-11-27] MEDS: Saccharomyces Boulardi 250 mg Cap PO SCH ×2 (09:52→17:49)
[2016-11-27] MEDS: Fluconazole IV 200mg/100 ml NS 100 ML IVPB SCH (18:59)
[2016-11-28] MEDS: Albuterol 0.083% Inhal Sol (2.5 mg/3 mL) UD INH SCH ×4 (01:34→19:59)
[2016-11-28] MEDS: Acetylcysteine 20% Inhal Soln (4ml) INH SCH ×4 (01:34→19:59)
[2016-11-28] MEDS: Pantoprazole 40 mg Susp UD PO SCH (10:39)
[2016-11-28] MEDS: Saccharomyces Boulardi 250 mg Cap PO SCH ×2 (10:39→17:11)
[2016-11-28 12:39] LABS: URINE BACTERIA RARE (<OCC); URINE CALCIUM OXALATE CRYSTALS MANY /hpf (<OCC); URINE LEUKOCYTE ESTERASE TRACE Leu/uL (Negative); URINE PROTEIN NEGATIVE (NEGATIVE); WBC URINE 6 /hpf (0-5)
--- NOTE | 2016-11-28 14:43 | CP.PCM.PN ---
<Marybel Taylor - Last Filed: 11/28/16 14:44> Subjective - Date & Time of Evaluation Date of Evaluation: 11/28/16 Time of Evaluation: 06:20 - Subjective Subjective: Internal medicine progress note for Hospitalist service- Marybel Taylor, PGY-1 Pt S & E at bedside. Pt asleep, arousable to verbal stimuli. Trach collar in place, secretions noted. Nursing informed. No events overnight as per nursing. Objective - Vital Signs/Intake and Output Vital Signs (last 24 hours): Temp Pulse Resp BP Pulse Ox 97.9 F 67 20 108/72 100 11/28/16 08:00 11/28/16 08:00 11/28/16 08:00 11/28/16 08:00 11/28/16 08:00 Intake and Output: 11/28/16 11/28/16 06:59 18:59 Intake Total 1860 Output Total 950 Balance 910 - Medications Medications: Current Medications Acetaminophen (Tylenol 325mg Tab) 650 mg PO Q6 PRN PRN Reason: Fever >100.4 F Last Admin: 11/24/16 09:59 Dose: 650 mg Acetylcysteine (Acetylcysteine 20%) 4 ml INH Q6H [facility] Last Admin: 11/28/16 13:27 Dose: 4 ml Albuterol Sulfate (Albuterol 0.083% Inhal Kim (2.5 Mg/3 Ml) Ud) 2.5 mg INH RQ6 [facility] Last Admin: 11/28/16 13:28 Dose: 2.5 mg Amlodipine Besylate (Norvasc) 5 mg PO DAILY [facility] Last Admin: 11/28/16 10:39 Dose: 5 mg Aspirin (Aspirin Chewable) 81 mg GT DAILY [facility] Last Admin: 11/28/16 10:39 Dose: 81 mg Fluconazole (Diflucan Iv 200 Mg/100 Ml Ns) 100 mls @ 100 mls/hr IVPB Q24H [facility] Last Admin: 11/27/16 18:59 Dose: 100 mls/hr Pantoprazole Sodium (Protonix Susp) 40 mg PO DAILY [facility] Last Admin: 11/28/16 10:39 Dose: 40 mg Rosuvastatin Calcium (Crestor) 5 mg GT HS [facility] Last Admin: 11/27/16 21:00 Dose: 5 mg Saccharomyces Boulardii (Florastor) 250 mg PO BID [facility] Last Admin: 11/28/16 10:39 Dose: 250 mg - Labs Labs: 11/23/16 07:15 11/23/16 07:15 PT 12.9 SECONDS (9.7-12.2) H 11/15/16 13:58 INR 1.2 11/15/16 13:58 APTT 39 SECONDS (21-34) H 11/15/16 13:58 - Constitutional Appears: Non-toxic, No Acute Distress - Head Exam Head Exam: ATRAUMATIC, NORMAL INSPECTION, NORMOCEPHALIC - Eye Exam Eye Exam: EOMI, Normal appearance, PERRL Pupil Exam: NORMAL ACCOMODATION, PERRL - ENT Exam ENT Exam: Mucous Membranes Moist, Normal Exam - Neck Exam Additional comments: trach collar in place, secretions noted- yellow - Respiratory Exam Respiratory Exam: Clear to Ausculation Bilateral, NORMAL BREATHING PATTERN - Cardiovascular Exam Cardiovascular Exam: REGULAR RHYTHM, +S1, +S2. absent: Murmur - GI/Abdominal Exam GI & Abdominal Exam: Soft, Normal Bowel Sounds. absent: Tenderness Additional comments: PEG tube in place - Extremities Exam Extremities Exam: Normal Capillary Refill, Normal Inspection. 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 11/28: Trach collar in place with secretions- cleaned up, respiratory informed that pt needs suctioning 11/25: Trach care being provided by nursing, secretions noted, trach collar in place 11/24: Trach collar with copious secretions, trach care as per nursing 11/23: Stable, trach collar care as per nursing, continues with copious secretions 11/22: Trach collar in place, no secretions audible this morning, cont ASA daily 11/21: Trach collar in place, secretions audible- nursing notified; ASA 81 mg daily started as per neuro 11/19: Minimal secretions at trach, stable 11/18: Trach collar in place, stable 11/17: On trach collar, stable, lots of secretions 11/16: Stable on trach collar, no changes 11/15: Stable, no changes, trach collar in place 11/14: trach collar in place 11/13: Pt still with secretions, respiratory informed and will address 11/11: Secretions continued, started duonebs and mucomyst, informed nursing to do trach care and suctioning 11/10: Pt with audible secretions on trach collar- nursing informed, OGT in place 11/09: Pt resting comfortably in bed, trach to trach collar- tolerating w/some secretions as per respiratory, OGT In place 11/08: Resting comfortably, trach in place, OGT in place, does not 11/07: Resting comfortably, trach in place 11/06: Trach in place, resting comfortably. Follows simple commands to protrude tongue and move L arm 11/05: did not follow simple commands 11/04: Continues to follows simple commands in Turk[place] Neurology consult - Dr. Simpson advise to schedule trach and PEG. Hold antiplatelets for 4-6 weeks and maintain blood pressure above 100 systolic. Sedation as needed 10/24 CT Head: little interval change in the size of left thalamic hemorrhage 2.4x2.9 cm with intraventricular extension of hemorrhage and mild obstructive hydrocephalus. 2 mm midline shift from left to right with no evidence of herniation. Near complete resolution of hemorrhage within 4th ventricle. 10/19 CT Head: little interval change in the known 2.0 x 2.7 acute hematoma in left thalamus with intra ventricular extension of hemorrhage. Interval mild worsening of obstructive hydrocephalus. 10/18 CT Head: Left basal ganglia acute hemorrhage, possibly hypertensive with associated intraventricular hemorrhage and mass effect upon the left lateral aspect of the 3rd ventricle with the tip shift of the 3rd ventricle towards the right side. No generalized midline shift. Air-fluid level in sphenoid sinus common nonspecific. Please correlate for concern regarding acute sinusitis. Mild involutional changes. GCS - 8T (E4 VT M4) [place] II 10.0, 12% estimated non-operative mortality 11/03- CT brain w/o cont for re-evaluation of bleed w/findings of Interval decrease in size and density left basal ganglia hematoma however well- circumscribed peripheral rim of low-attenuation edema about the hematoma likely represent some combination of brain edema as well as of brain necrosis. Intraventricular hemorrhage has diminished. Ventricles have also decreased in size though the temporal horns and atria remain prominent compared to the compressed remaining ventricular system. There is persistent compression of the 3rd and left lateral ventricle Chronic white matter and basal nuclei ischemic changes. December 07- reassess pt need for anticoagulation with neurology HTN: 11/28: BP 108/68- Cont Norvasc 11/25: BP 106/71- cont Norvasc 11/24: BP WNL- cont Norvasc 11/23: 126/78m cont Norvasc 11/22: BP 118/78, cont Norvasc/monitor 11/21: BP 128/89, cont Norvasc 11/19: BP stable, c/w current management 11/18: BP 145/89; Cont Norvasc 11/17: 150/89; cont Norvasc 11/16: BP 138/88,- cont Norvasc 11/15: BP 142/83, cont Norvasc/monitor VS 11/14:BP 146/95, cont Norvasc 11/12: BP controlled 11/11: BP 134/91, started Norvasc 5mg Daily 11/10: BP 135/90, will d/c IVF 11/09: BP 169/94- same as previous 11/08: BP 148/95, slight elevated, but mostly WNL- continue to hold Hydralazine 11/06: BP elevated 161/99; continue to monitor 11/05: BP WNL Amlodipine 10 mg POQD Hydralazine 25 mg PO BID - currently being held- BP WNL Losartan 100 mg POQD Labetalol 200 mg PO Q12H Respiratory failure on trach collar: 11/28: Pulm re-consulted for recs regarding weaning pt off trach collar 11/25: Pulm following, trach collar in place, mucus secretions noted, being cleaned up by nursing 11/24: Trach collar with secretions, non bloody, pulm following 11/23: Trach collar in place, pt tolerating, pulm following 11/22: TC in place, care as per respiratory, nursing, pulm following 11/21: Trach collar at 30%FiO2, pulm following, trach care as per respiratory and nursing 11/20: no changes, pul following 11/18: Trach collar at 30% FiO2, pulm following 11/17: Pulm following, pt on 30%FiO2 via trach collar- stable 11/16: Pulm following - pt on T tube for PEG 11/15: Pulm following- cont trach collar, pulm toilet 11/14: Still tolerating trach collar off vent, pulm following 11/13: Off of vent, tolerating well. 11/11: Pulm recs- Continue weaning with trials off vent, continue nebulizer treatments 11/10: On trach collar, pulm consulted for potential weaning, mucomyst ordered for secretions 11/08: Trial pt on trach collar w/o mech vent Pulm consulted for trach weaning protocol- Leo 11/08: Trial pt on trach collar w/o mech vent 11/07: Trach collar w/CPAP 11/06: Trach in place. On mech vent s/p tracheostomy Trach tube care CPAP ABG: -10/29 pH 7.46, CO 35, O2 90, HCO3 26.0 -10/28 pH 7.46, CO2 35, O2 73, HCO3 25.9 -10/27 pH 7.49, CO2 33, O2 74, HCO3 26.5 -10/26 pH 7.5, CO2 32, O2 91, HCO3 26.6 -10/24 pH 7.47, CO2 35, O2 119, HCO3 26.5 -12 pH 7.47, CO2 33, O2 66, HCO3 25.5 -11 pH 7.52, CO2 33, O2 57, HCO3 28.1 -10 pH 7.48, CO2 38, O2 79, HCO3 28.5 -9 pH 7.46, CO2 37, O2 187 HCO3 26.9 -8 pH 7.46, CO2 38, O2 214, HCO3 27.4 Imaging 11/08 CXR-Tracheostomy tube in place. Other lines and tubes in stable position. Mild patchy increased markings in the right infrahilar region. Biapical pleural thickening. 11/02/CXR - repeat CXR for replacement of OGT w/Support lines tubes - normally positioned No interval pathology noted 11/02 CXR - Interval improvement in the right lower lung since the previous study. Appropriate position of the right-sided PICC line with the tip is likely at the SVC right atrium junction 11/01 CXR - The in situ tracheostomy tube and NG tube positions are as before. Mild interval prominence of the right infrahilar bronchovascular markings either due to technique or subtle interval patchy infiltrate. Clinical follow- up recommended 10/31 CXR -In situ tracheostomy tube remains in good position. NGT w/tip overlying LUQ of the abdomen unchanged. Continued improvement right lung base. 10/28 CXR No focal airspace opacity 10/27 CXR No active disease 10/26 CXR - Mild venous congestion. Right hilar prominence 10/24 CXR Mild venous congestion. Mild right infrahilar prominence 10/23 CXR - Mild venous congestion. right hilar prominence. Biapical pleural thickening upper lobe granulomatous changes. lines and tubes in stable position. 10/22 CXR - Worsening consolidative changes to right mid to lower lung zone. lines and tubes in stable position. 10/20 CXR - Distal tip of an endotracheal tube terminates approximately 4.6 cm above the brisa. Left IJ approach Central venous catheter terminates at expected location of the left innominate vein. Nasogastric tube extends to expected location of the stomach 10/19 CXR New nasogastric tube extends to distal esophagus, above the diaphragm. Repositioning is advised. ET tube unchanged. No infiltrate. 10/18 CXR ET tube proximal to brisa, no acute pulmonary pathology official read pending Head of bed to 30* Keep O2 Sat >92% Dysphagia 11/28: PEG tube in place 11/25: PEG in place, residuals of 5cc/night per nursing 11/24: PEG tube in place, no residuals as per nursing, tolerating 60cc/hr tube feeds 11/23: Dietary recs for goal of 60cc/hr tube feeds, pt tolerating new goal, no residuals. PEG tube in place. 11/22: No residuals, dietary reconsulted for recs 11/21: Pt at goal of 50cc/hr tube feeds, PEG tube in place, no drainage noted 11/19: tolerating feedings 11/18: Tube feeds to 30cc today, keep free water flushes 11/17: PEG tube placed, tube feeds to start at noon, Dietary recs- Isosource 1.5, goal rate 50ml; Free water flushes 300cc Q8H 11/16: PEG tube today, tube feeds held 11/15: PEG tube in AM per GI, told Tube feeds after MN- NPO and nursing order in 11/14: No residuals overnight, ok to increase rate to 30cc/hr, GI re-consulted for PEG tube placement 11/11: Pt w/10cc residuals- kept at rate of 20cc/hr, will consider increasing by 10cc tomorrow if no residuals 11/10: Tube feeds stable 11/09: Tube feeds at 30cc/hr, no reported residuals. Advance by 10cc per day until goal of 50cc. 11/08- OGT placed last night, position verified- ok to use OGT for tube feeds 11/07: NPO- no access to stomach 11/05: OGT removed due to possible contribution to fever/sepsis. Feeding tube via oropharynx replaced 11/02 after pt removed position verified by CXR Feeding tube via oropharynx replaced 11/01 Position verified by CXR NGT was advanced 10/20 - d/c'd Consulted GI- Dr. Renteria- PEG tube placement when not having fevers/ leukocytosis Anemia- stable 11/24-: No labs today 11/23: H/H 10.8/33.3 11/22: No labs today 11/21: Labs from 11/20: H/H 11/34.2- stable 11/18: No labs 11/17: H/H 11.9/36.5 11/16: H/H 12.2/38.1; PT 12.9, INR 1.2, PTT 39 11/15: H/H- 11.4/35.5, FU PT/INR/PTT 11/14: H/H - 11.3/35.2 11/11: H/H- 11.1/34.8 11/10: H/H- 11.5/36.1 11/09: H/H- 12.2/39.3 11/08: H/H- 10.4/33.5 11/07: H/H- 11.1/35.8 11/06: f/u H&H, monitor 11/05-11/06: H&H low, stable, continue to monitor H&H: 12.5/40.2- stable Intracranial bleed No coagulopathy Contraindication for anticoagulation Monitor Sepsis- resolved 11/28: Will repeat Urine Cx tomorrow, continue Diflucan 11/25: Cont Diflucan as per ID, FU repeat Urine cx ordered today 11/24: Cont diflucan 4/12: urine cx pos for yeast again. ID informed, told to continue Diflucan. 11/22: FU urine cx- if negative, will d/c Diflucan. Pt off Merrem and vanc. 11/21: Per ID- ok to de-escalate Antibiotics- Vanc discontinued last week, Merrem discontinued today, will continue Diflucan until repeat Urine cx resulted - [place] catheter changed on 11/18 11/19: no changes, afebrile 11/18: Afebrile over last 24H, no labs today, per ID- de-escalate Abx- do not renew Vanc, will cont merrem over the weekend, then d/c on 11/21. Change the [place] catheter if urine cx still positive for yeast. 11/17: Afebrile over last 24H, no leukocytosis- stable, no changes 11/16: Afebrile over last 24H, no leukocytosis- stable, no changes 11/15: Afebrile over last 24H, no leukocytosis- stable FU Vanc trough at 1pm 11/15 11/14: Afebrile over last 24H, no leukocytosis 11/13: Afebrile, labs stable 11/12: Afebrile overnight, f/u am labs 11/11: Afebrile over last 24H, WBC down trending, now 12.3 from 12.6, per ID: resume vancomcyin; trough 10-15; and monitor wbc count FU sputum cxr- talked to lab- results will be available on 11/12- so far only normal kalin growing FU vanc trough on 11/12 before 3rd dose 11/10: Afebrile over last 24H, WBC down trending, no w 12.6 from 14.1, Blood cx neg x 4 D, repeat urine cxr pos for yeast 11/09: Afebrile over last 24H, WBC increased from 11.9 to 14.1; Blood/urine/ sputum cxr sent Vanc trough 8.4 Urine cxr pos for yeast Diflucan 200mg Q24H ordered ID consulted for adjustement of antibiotics/antifungals- awaiting recs 11/08: Afebrile over last 24H, WBC 11.9, Bands 3 11/07: Afebrile over last 24H, WBC 16.3, Bands 6 Trach asp pos for Gram neg rods Blood cxr neg x 48H 11/06: Continue to monitor WBC 11/05: Leukocytosis 21.8 from 19.4, 16.7 - trending up 11/05: Vanc trough - 5.1 Afebrile over last 24H -Started Vanco 1gm Q24H vanco through 11/02 - 5.1 11/01- apr work up sent: blood cxr, urine cxr, CXR, C diff stool Blood cxr neg x 48H urine cxr neg Bandemia 5 10/31- Trach asp cx - normal kalin 10/31 - Urine ([place]) cxr neg 10/25 Sputum cx: Serratia marcescens and Enterobactor aerogenes 10/21 Sputum cx: Klebsiella pneumoniae Hold change of antibiotics. Fully aware of the low grade temperature, and increase in WBCs. Patient is hemodynamically stable. IV Cefepime 1 gram Q8H Acetaminophen 650 mg Q6 PRN for fever ID following- Kathy- continue Merrem and Vanco due to aspiration and pos Enterobacter Aerogenes Per Micro- Enterobacter aerogenes sensitive to merrem cont merrem Per ID: increase vanc to 1gm Q12H, FU vanc peak and trough on 3rd dose, cont diflucan Vanc trough 13.8- Vanco held, no peak done due to high trough Muscular deconditioning due to being bed bound PT/OT to work with pt Pt and family member at bedside instructed on self-rehab exercises Monitor tracheostomy site for drainage, erythema, hematoma, signs of infection. Prophylaxis: GI - Protonix 40 mg IVP daily DVT - contraindicated 09/15 to intracranial bleed WIll re-asses VTE needs on 12/07 Dispo: Con current mgmt ID following Pulm following Cont condom catheter Cont general body care SW eval for possible LTAC after PEG placement PEG tube with tube feeding in place @ goal of 60 cc/hour per dietary Labs Q7days PT/OT Pt in process of being added to 's insurance DW attending <Johny Saldana - Last Filed: 11/28/16 15:15> Objective - Vital Signs/Intake and Output Vital Signs (last 24 hours): Temp Pulse Resp BP Pulse Ox 97.9 F 67 20 108/72 100 11/28/16 08:00 11/28/16 08:00 11/28/16 08:00 11/28/16 08:00 11/28/16 08:00 Intake and Output: 04/17/17 04/17/17 06:59 18:59 Intake Total 1860 Output Total 950 Balance 910 - Medications Medications: Current Medications Acetaminophen (Tylenol 325mg Tab) 650 mg PO Q6 PRN PRN Reason: Fever >100.4 F Last Admin: 11/24/16 09:59 Dose: 650 mg Acetylcysteine (Acetylcysteine 20%) 4 ml INH Q6H [facility] Last Admin: 11/28/16 13:27 Dose: 4 ml Albuterol Sulfate (Albuterol 0.083% Inhal Kim (2.5 Mg/3 Ml) Ud) 2.5 mg INH RQ6 [facility] Last Admin: 11/28/16 13:28 Dose: 2.5 mg Amlodipine Besylate (Norvasc) 5 mg PO DAILY [facility] Last Admin: 11/28/16 10:39 Dose: 5 mg Aspirin (Aspirin Chewable) 81 mg GT DAILY [facility] Last Admin: 11/28/16 10:39 Dose: 81 mg Fluconazole (Diflucan Iv 200 Mg/100 Ml Ns) 100 mls @ 100 mls/hr IVPB Q24H [facility] Last Admin: 11/27/16 18:59 Dose: 100 mls/hr Pantoprazole Sodium (Protonix Susp) 40 mg PO DAILY [facility] Last Admin: 11/28/16 10:39 Dose: 40 mg Rosuvastatin Calcium (Crestor) 5 mg GT HS [facility] Last Admin: 11/27/16 21:00 Dose: 5 mg Saccharomyces Boulardii (Florastor) 250 mg PO BID [facility] Last Admin: 11/28/16 10:39 Dose: 250 mg - Labs Labs: 11/23/16 07:15 11/23/16 07:15 PT 12.9 SECONDS (9.7-12.2) H 11/15/16 13:58 INR 1.2 11/15/16 13:58 APTT 39 SECONDS (21-34) H 11/15/16 13:58 Attending/Attestation - Attestation I have personally seen and examined this patient.: Yes I have fully participated in the care of the patient.: Yes I have reviewed all pertinent clinical information, including history, physical exam and plan: Yes
[2016-11-28] MEDS: Fluconazole IV 200mg/100 ml NS 100 ML IVPB SCH (19:36)
[2016-11-29] MEDS: Acetylcysteine 20% Inhal Soln (4ml) INH SCH ×4 (01:19→19:06)
[2016-11-29] MEDS: Albuterol 0.083% Inhal Sol (2.5 mg/3 mL) UD INH SCH ×4 (01:19→19:06)
[2016-11-29 08:08] LABS: RBC URINE 5 /hpf (0-3); URINE BACTERIA MANY (<OCC); URINE BILIRUBIN NEGATIVE (NEGATIVE); URINE BLOOD NEGATIVE (NEGATIVE); URINE CALCIUM OXALATE CRYSTALS FEW /hpf (<OCC); URINE COLOR Yellow (YELLOW); URINE GLUCOSE (UA) NORMAL (Normal); URINE HYALINE CAST 0-2 /lpf (0-2); URINE KETONE NEGATIVE (NEGATIVE); URINE LEUKOCYTE ESTERASE 2+ Leu/uL (Negative); URINE PROTEIN NEGATIVE (NEGATIVE); WBC URINE 27 /hpf (0-5)
[2016-11-29] MEDS: Pantoprazole 40 mg Susp UD PO SCH (10:09)
[2016-11-29] MEDS: Saccharomyces Boulardi 250 mg Cap PO SCH ×2 (10:09→18:02)
--- NOTE | 2016-11-29 15:30 | CP.PCM.PN ---
Addendum entered and electronically signed by Marybel Taylor DO 11/29/16 16:10: [place] catheter changed per request from ID. Original Note: <Marybel Taylor - Last Filed: 11/29/16 15:22> Subjective - Date & Time of Evaluation Date of Evaluation: 11/29/16 Time of Evaluation: 06:20 - Subjective Subjective: Internal medicine progress note for Hospitalist service- Marybel Taylor, PGY-1 Pt S & E at bedside. Pt asleep, arousable to verbal stimuli. Tracks with eyes. No events overnight as per nursing. Objective - Vital Signs/Intake and Output Vital Signs (last 24 hours): Temp Pulse Resp BP Pulse Ox 98.1 F 78 20 120/70 100 11/29/16 08:00 11/29/16 11:53 11/29/16 08:00 11/29/16 08:00 11/29/16 08:00 Intake and Output: 11/29/16 11/29/16 06:59 18:59 Intake Total 1660 275 Output Total 1100 Balance 560 275 - Medications Medications: Current Medications Acetaminophen (Tylenol 325mg Tab) 650 mg PO Q6 PRN PRN Reason: Fever >100.4 F Last Admin: 11/29/16 13:19 Dose: 650 mg Acetylcysteine (Acetylcysteine 20%) 4 ml INH Q6H OMAR Last Admin: 11/29/16 13:58 Dose: 4 ml Albuterol Sulfate (Albuterol 0.083% Inhal Kim (2.5 Mg/3 Ml) Ud) 2.5 mg INH RQ6 OMAR Last Admin: 11/29/16 13:58 Dose: 2.5 mg Amlodipine Besylate (Norvasc) 5 mg PO DAILY OMAR Last Admin: 11/29/16 10:09 Dose: 5 mg Aspirin (Aspirin Chewable) 81 mg GT DAILY OMAR Last Admin: 11/29/16 10:09 Dose: 81 mg Fluconazole (Diflucan Iv 200 Mg/100 Ml Ns) 100 mls @ 100 mls/hr IVPB Q24H OMAR Last Admin: 11/28/16 19:36 Dose: 100 mls/hr Pantoprazole Sodium (Protonix Susp) 40 mg PO DAILY OMAR Last Admin: 11/29/16 10:09 Dose: 40 mg Rosuvastatin Calcium (Crestor) 5 mg GT HS OMAR Last Admin: 11/28/16 21:18 Dose: 5 mg Saccharomyces Boherbdii (Florastor) 250 mg PO BID OMAR Last Admin: 11/29/16 10:09 Dose: 250 mg - Labs Labs: 11/23/16 07:15 11/23/16 07:15 PT 12.9 SECONDS (9.7-12.2) H 11/15/16 13:58 INR 1.2 11/15/16 13:58 APTT 39 SECONDS (21-34) H 11/15/16 13:58 - Constitutional Appears: Non-toxic, No Acute Distress - Head Exam Head Exam: ATRAUMATIC, NORMAL INSPECTION, NORMOCEPHALIC - Eye Exam Eye Exam: EOMI, Normal appearance, PERRL Pupil Exam: NORMAL ACCOMODATION, PERRL - ENT Exam ENT Exam: Mucous Membranes Moist, Normal Exam - Neck Exam Additional comments: Cannot move head to look to left Trach collar in place - Respiratory Exam Respiratory Exam: Clear to Ausculation Bilateral, NORMAL BREATHING PATTERN - Cardiovascular Exam Cardiovascular Exam: REGULAR RHYTHM, +S1, +S2. absent: Murmur - GI/Abdominal Exam GI & Abdominal Exam: Soft, Normal Bowel Sounds. absent: Tenderness Additional comments: PEG tube in place - Extremities Exam Extremities Exam: Normal Capillary Refill, Normal Inspection. 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 11/29: Trach collar with secretions, asked pulm to re-evaluate for either weaning or valve 11/28: Trach collar in place with secretions- cleaned up, respiratory informed that pt needs suctioning 11/25: Trach care being provided by nursing, secretions noted, trach collar in place 11/24: Trach collar with copious secretions, trach care as per nursing 11/23: Stable, trach collar care as per nursing, continues with copious secretions 11/22: Trach collar in place, no secretions audible this morning, cont ASA daily 11/21: Trach collar in place, secretions audible- nursing notified; ASA 81 mg daily started as per neuro 11/19: Minimal secretions at trach, stable 11/18: Trach collar in place, stable 11/17: On trach collar, stable, lots of secretions 11/16: Stable on trach collar, no changes 11/15: Stable, no changes, trach collar in place 11/14: trach collar in place 11/13: Pt still with secretions, respiratory informed and will address 11/11: Secretions continued, started duonebs and mucomyst, informed nursing to do trach care and suctioning 11/10: Pt with audible secretions on trach collar- nursing informed, OGT in place 11/09: Pt resting comfortably in bed, trach to trach collar- tolerating w/some secretions as per respiratory, OGT In place 11/08: Resting comfortably, trach in place, OGT in place, does not 11/07: Resting comfortably, trach in place 11/06: Trach in place, resting comfortably. Follows simple commands to protrude tongue and move L arm 11/05: did not follow simple commands 11/04: Continues to follows simple commands in [place] Neurology consult - Dr. Simpson advise to schedule trach and PEG. Hold antiplatelets for 4-6 weeks and maintain blood pressure above 100 systolic. Sedation as needed 10/24 CT Head: little interval change in the size of left thalamic hemorrhage 2.4x2.9 cm with intraventricular extension of hemorrhage and mild obstructive hydrocephalus. 2 mm midline shift from left to right with no evidence of herniation. Near complete resolution of hemorrhage within 4th ventricle. 10/19 CT Head: little interval change in the known 2.0 x 2.7 acute hematoma in left thalamus with intra ventricular extension of hemorrhage. Interval mild worsening of obstructive hydrocephalus. 10/18 CT Head: Left basal ganglia acute hemorrhage, possibly hypertensive with associated intraventricular hemorrhage and mass effect upon the left lateral aspect of the 3rd ventricle with the tip shift of the 3rd ventricle towards the right side. No generalized midline shift. Air-fluid level in sphenoid sinus common nonspecific. Please correlate for concern regarding acute sinusitis. Mild involutional changes. GCS - 8T (E4 VT M4) TLINGIT & HAIDA II 10.0, 12% estimated non-operative mortality 11/03- CT brain w/o cont for re-evaluation of bleed w/findings of Interval decrease in size and density left basal ganglia hematoma however well- circumscribed peripheral rim of low-attenuation edema about the hematoma likely represent some combination of brain edema as well as of brain necrosis. Intraventricular hemorrhage has diminished. Ventricles have also decreased in size though the temporal horns and atria remain prominent compared to the compressed remaining ventricular system. There is persistent compression of the 3rd and left lateral ventricle Chronic white matter and basal nuclei ischemic changes. December 07- reassess pt need for anticoagulation with neurology HTN: 11/29: 120/70- Cont Norvasc 11/28: BP 108/68- Cont Norvasc 11/25: BP 106/71- cont Norvasc 11/24: BP WNL- cont Norvasc 11/23: 126/78m cont Norvasc 11/22: BP 118/78, cont Norvasc/monitor 11/21: BP 128/89, cont Norvasc 11/19: BP stable, c/w current management 11/18: BP 145/89; Cont Norvasc 11/17: 150/89; cont Norvasc 11/16: BP 138/88,- cont Norvasc 11/15: BP 142/83, cont Norvasc/monitor VS 11/14:BP 146/95, cont Norvasc 11/12: BP controlled 11/11: BP 134/91, started Norvasc 5mg Daily 11/10: BP 135/90, will d/c IVF 11/09: BP 169/94- same as previous 11/08: BP 148/95, slight elevated, but mostly WNL- continue to hold Hydralazine 11/06: BP elevated 161/99; continue to monitor 11/05: BP WNL Amlodipine 10 mg POQD Hydralazine 25 mg PO BID - currently being held- BP WNL Losartan 100 mg POQD Labetalol 200 mg PO Q12H Respiratory failure on trach collar: 11/29: Awaiting pulm recs regarding weaning vs. valve for Trach collar 11/28: Pulm re-consulted for recs regarding weaning pt off trach collar 11/25: Pulm following, trach collar in place, mucus secretions noted, being cleaned up by nursing 11/24: Trach collar with secretions, non bloody, pulm following 11/23: Trach collar in place, pt tolerating, pulm following 11/22: TC in place, care as per respiratory, nursing, pulm following 11/21: Trach collar at 30%FiO2, pulm following, trach care as per respiratory and nursing 11/20: no changes, pul following 11/18: Trach collar at 30% FiO2, pulm following 11/17: Pulm following, pt on 30%FiO2 via trach collar- stable 11/16: Pulm following - pt on T tube for PEG 11/15: Pulm following- cont trach collar, pulm toilet 11/14: Still tolerating trach collar off vent, pulm following 11/13: Off of vent, tolerating well. 11/11: Pulm recs- Continue weaning with trials off vent, continue nebulizer treatments 11/10: On trach collar, pulm consulted for potential weaning, mucomyst ordered for secretions 11/08: Trial pt on trach collar w/o mech vent Pulm consulted for trach weaning protocol- Leo 11/08: Trial pt on trach collar w/o mech vent 11/07: Trach collar w/CPAP 11/06: Trach in place. On mech vent s/p tracheostomy Trach tube care CPAP ABG: -10/29 pH 7.46, CO 35, O2 90, HCO3 26.0 -10/28 pH 7.46, CO2 35, O2 73, HCO3 25.9 -16 pH 7.49, CO2 33, O2 74, HCO3 26.5 -15 pH 7.5, CO2 32, O2 91, HCO3 26.6 -13 pH 7.47, CO2 35, O2 119, HCO3 26.5 -12 pH 7.47, CO2 33, O2 66, HCO3 25.5 -11 pH 7.52, CO2 33, O2 57, HCO3 28.1 -10 pH 7.48, CO2 38, O2 79, HCO3 28.5 -9 pH 7.46, CO2 37, O2 187 HCO3 26.9 -/8 pH 7.46, CO2 38, O2 214, HCO3 27.4 Imaging 11/08 CXR-Tracheostomy tube in place. Other lines and tubes in stable position. Mild patchy increased markings in the right infrahilar region. Biapical pleural thickening. 11/02/CXR - repeat CXR for replacement of OGT w/Support lines tubes - normally positioned No interval pathology noted 11/02 CXR - Interval improvement in the right lower lung since the previous study. Appropriate position of the right-sided PICC line with the tip is likely at the SVC right atrium junction 11/01 CXR - The in situ tracheostomy tube and NG tube positions are as before. Mild interval prominence of the right infrahilar bronchovascular markings either due to technique or subtle interval patchy infiltrate. Clinical follow- up recommended 10/31 CXR -In situ tracheostomy tube remains in good position. NGT w/tip overlying LUQ of the abdomen unchanged. Continued improvement right lung base. 10/28 CXR No focal airspace opacity 10/27 CXR No active disease 10/26 CXR - Mild venous congestion. Right hilar prominence 10/24 CXR Mild venous congestion. Mild right infrahilar prominence 10/23 CXR - Mild venous congestion. right hilar prominence. Biapical pleural thickening upper lobe granulomatous changes. lines and tubes in stable position. 10/22 CXR - Worsening consolidative changes to right mid to lower lung zone. lines and tubes in stable position. 10/20 CXR - Distal tip of an endotracheal tube terminates approximately 4.6 cm above the brisa. Left IJ approach Central venous catheter terminates at expected location of the left innominate vein. Nasogastric tube extends to expected location of the stomach 10/19 CXR New nasogastric tube extends to distal esophagus, above the diaphragm. Repositioning is advised. ET tube unchanged. No infiltrate. 10/18 CXR ET tube proximal to brisa, no acute pulmonary pathology official read pending Head of bed to 30* Keep O2 Sat >92% Dysphagia 11/29: PEG tube in place, no residuals, tolerating tube feeds- cont 11/28: PEG tube in place 11/25: PEG in place, residuals of 5cc/night per nursing 11/24: PEG tube in place, no residuals as per nursing, tolerating 60cc/hr tube feeds 11/23: Dietary recs for goal of 60cc/hr tube feeds, pt tolerating new goal, no residuals. PEG tube in place. 11/22: No residuals, dietary reconsulted for recs 11/21: Pt at goal of 50cc/hr tube feeds, PEG tube in place, no drainage noted 11/19: tolerating feedings 11/18: Tube feeds to 30cc today, keep free water flushes 11/17: PEG tube placed, tube feeds to start at noon, Dietary recs- Isosource 1.5, goal rate 50ml; Free water flushes 300cc Q8H 11/16: PEG tube today, tube feeds held 11/15: PEG tube in AM per GI, told Tube feeds after MN- NPO and nursing order in 11/14: No residuals overnight, ok to increase rate to 30cc/hr, GI re-consulted for PEG tube placement 11/11: Pt w/10cc residuals- kept at rate of 20cc/hr, will consider increasing by 10cc tomorrow if no residuals 11/10: Tube feeds stable 11/09: Tube feeds at 30cc/hr, no reported residuals. Advance by 10cc per day until goal of 50cc. 11/08- OGT placed last night, position verified- ok to use OGT for tube feeds 11/07: NPO- no access to stomach 11/05: OGT removed due to possible contribution to fever/sepsis. Feeding tube via oropharynx replaced 11/02 after pt removed position verified by CXR Feeding tube via oropharynx replaced 11/01 Position verified by CXR NGT was advanced 10/20 - d/c'd Consulted GI- Dr. Renteria- PEG tube placement when not having fevers/ leukocytosis Anemia- stable 11/24-: No labs today 11/23: H/H 10.8/33.3 11/22: No labs today 11/21: Labs from 11/20: H/H 11/34.2- stable 11/18: No labs 11/17: H/H 11.9/36.5 11/16: H/H 12.2/38.1; PT 12.9, INR 1.2, PTT 39 11/15: H/H- 11.4/35.5, FU PT/INR/PTT 11/14: H/H - 11.3/35.2 11/11: H/H- 11.1/34.8 11/10: H/H- 11.5/36.1 11/09: H/H- 12.2/39.3 11/08: H/H- 10.4/33.5 11/07: H/H- 11.1/35.8 11/06: f/u H&H, monitor 11/05-11/06: H&H low, stable, continue to monitor H&H: 12.5/40.2- stable Intracranial bleed No coagulopathy Contraindication for anticoagulation Monitor Sepsis- resolved 11/29: Repeat urine cxr grew multiple species, prior urine cx pos for pseudomonas - per ID- d/c Diflucan, start Cipro 400mg Q12H 11/28: Will repeat Urine Cx tomorrow, continue Diflucan 11/25: Cont Diflucan as per ID, FU repeat Urine cx ordered today 11/24: Cont diflucan 11/23: urine cx pos for yeast again. ID informed, told to continue Diflucan. 11/22: FU urine cx- if negative, will d/c Diflucan. Pt off Merrem and vanc. 11/21: Per ID- ok to de-escalate Antibiotics- Vanc discontinued last week, Merrem discontinued today, will continue Diflucan until repeat Urine cx resulted - [place] catheter changed on 11/18 11/19: no changes, afebrile 11/18: Afebrile over last 24H, no labs today, per ID- de-escalate Abx- do not renew Vanc, will cont merrem over the weekend, then d/c on 11/21. Change the [place] catheter if urine cx still positive for yeast. 11/17: Afebrile over last 24H, no leukocytosis- stable, no changes 11/16: Afebrile over last 24H, no leukocytosis- stable, no changes 11/15: Afebrile over last 24H, no leukocytosis- stable FU Vanc trough at 1pm 11/15 11/14: Afebrile over last 24H, no leukocytosis 11/13: Afebrile, labs stable 11/12: Afebrile overnight, f/u am labs 11/11: Afebrile over last 24H, WBC down trending, now 12.3 from 12.6, per ID: resume vancomcyin; trough 10-15; and monitor wbc count FU sputum cxr- talked to lab- results will be available on 11/12- so far only normal kalin growing FU vanc trough on 11/12 before 3rd dose 11/10: Afebrile over last 24H, WBC down trending, no w 12.6 from 14.1, Blood cx neg x 4 D, repeat urine cxr pos for yeast 11/09: Afebrile over last 24H, WBC increased from 11.9 to 14.1; Blood/urine/ sputum cxr sent Vanc trough 8.4 Urine cxr pos for yeast Diflucan 200mg Q24H ordered ID consulted for adjustement of antibiotics/antifungals- awaiting recs 11/08: Afebrile over last 24H, WBC 11.9, Bands 3 11/07: Afebrile over last 24H, WBC 16.3, Bands 6 Trach asp pos for Gram neg rods Blood cxr neg x 48H 11/06: Continue to monitor WBC 11/05: Leukocytosis 21.8 from 19.4, 16.7 - trending up 11/05: Vanc trough - 5.1 Afebrile over last 24H -Started Vanco 1gm Q24H vanco through 11/02 - 5.1 11/01- apr work up sent: blood cxr, urine cxr, CXR, C diff stool Blood cxr neg x 48H urine cxr neg Bandemia 5 10/31- Trach asp cx - normal kalin 10/31 - Urine ([place]) cxr neg 10/25 Sputum cx: Serratia marcescens and Enterobactor aerogenes 10/21 Sputum cx: Klebsiella pneumoniae Hold change of antibiotics. Fully aware of the low grade temperature, and increase in WBCs. Patient is hemodynamically stable. IV Cefepime 1 gram Q8H Acetaminophen 650 mg Q6 PRN for fever ID following- Kathy- continue Merrem and Vanco due to aspiration and pos Enterobacter Aerogenes Per Micro- Enterobacter aerogenes sensitive to merrem cont merrem Per ID: increase vanc to 1gm Q12H, FU vanc peak and trough on 3rd dose, cont diflucan Vanc trough 13.8- Vanco held, no peak done due to high trough Muscular deconditioning due to being bed bound PT/OT to work with pt Pt and family member at bedside instructed on self-rehab exercises Monitor tracheostomy site for drainage, erythema, hematoma, signs of infection. Prophylaxis: GI - Protonix 40 mg IVP daily DVT - contraindicated 09/15 to intracranial bleed WIll re-asses VTE needs on 12/07 Dispo: Con current mgmt ID following Pulm following Cont condom catheter Cont general body care SW eval for possible LTAC after PEG placement PEG tube with tube feeding in place @ goal of 60 cc/hour per dietary Labs Q7days PT/OT Pt in process of being added to 's insurance SW informed that pt's family is unable to afford/provide care for pt at home DW attending <Johny Saldana H - Last Filed: 11/29/16 16:42> Objective - Vital Signs/Intake and Output Vital Signs (last 24 hours): Temp Pulse Resp BP Pulse Ox 98.1 F 78 20 120/70 100 11/29/16 08:00 11/29/16 11:53 11/29/16 08:00 11/29/16 08:00 11/29/16 08:00 Intake and Output: 11/29/16 11/29/16 06:59 18:59 Intake Total 1660 275 Output Total 1100 300 Balance 560 -25 - Medications Medications: Current Medications Acetaminophen (Tylenol 325mg Tab) 650 mg PO Q6 PRN PRN Reason: Fever >100.4 F Last Admin: 11/29/16 13:19 Dose: 650 mg Acetylcysteine (Acetylcysteine 20%) 4 ml INH Q6H OMAR Last Admin: 11/29/16 13:58 Dose: 4 ml Albuterol Sulfate (Albuterol 0.083% Inhal Kim (2.5 Mg/3 Ml) Ud) 2.5 mg INH RQ6 OMAR Last Admin: 11/29/16 13:58 Dose: 2.5 mg Amlodipine Besylate (Norvasc) 5 mg PO DAILY OMAR Last Admin: 11/29/16 10:09 Dose: 5 mg Aspirin (Aspirin Chewable) 81 mg GT DAILY OMAR Last Admin: 11/29/16 10:09 Dose: 81 mg Ciprofloxacin (Cipro 400mg/200ml Dsw) 200 mls @ 133 mls/hr IVPB Q12H OMAR Pantoprazole Sodium (Protonix Susp) 40 mg PO DAILY OMAR Last Admin: 11/29/16 10:09 Dose: 40 mg Rosuvastatin Calcium (Crestor) 5 mg GT HS OMAR Last Admin: 11/28/16 21:18 Dose: 5 mg Saccharomyces Boulardii (Florastor) 250 mg PO BID OMAR Last Admin: 11/29/16 10:09 Dose: 250 mg - Labs Labs: 11/23/16 07:15 11/23/16 07:15 PT 12.9 SECONDS (9.7-12.2) H 11/15/16 13:58 INR 1.2 11/15/16 13:58 APTT 39 SECONDS (21-34) H 11/15/16 13:58 Attending/Attestation - Attestation I have personally seen and examined this patient.: Yes I have fully participated in the care of the patient.: Yes I have reviewed all pertinent clinical information, including history, physical exam and plan: Yes
[2016-11-29] MEDS: Ciprofloxacin 400mg/200ml D5W 200 ML IVPB SCH (17:05)
[2016-11-30] MEDS: Albuterol 0.083% Inhal Sol (2.5 mg/3 mL) UD INH SCH ×4 (01:29→19:49)
[2016-11-30] MEDS: Acetylcysteine 20% Inhal Soln (4ml) INH SCH ×4 (01:29→19:47)
[2016-11-30] MEDS: Ciprofloxacin 400mg/200ml D5W 200 ML IVPB SCH ×2 (04:35→17:57)
[2016-11-30 07:35] LABS: BASO % 0.4 % (0.0-2.0); EOS # 0.5 K/uL (0.0-0.7); EOS % 7.1 % (0.0-4.0); LYMPH # 1.3 K/uL (1.0-4.3); LYMPH % 18.3 % (20.0-40.0); MEAN CELL VOLUME 81.8 fL (80.0-94.0); MEAN CORPUSCULAR HEMOGLOBIN 26.4 pg (27.0-31.0); MEAN CORPUSCULAR HGB CONC 32.3 g/dL (33.0-37.0); MEAN PLATELET VOLUME 9.3 fL (7.2-11.7); MONO # 0.8 K/uL (0.0-0.8); MONO % 10.3 % (0.0-10.0); RED CELL DISTRIBUTION WIDTH 14.2 % (11.5-14.5); WHITE BLOOD COUNT 7.3 K/uL (4.8-10.8)
[2016-11-30 07:42] LABS: CHLORIDE 99 mmol/L (98-107)
[2016-11-30 07:43] LABS: SODIUM 137 mmol/L (132-148)
[2016-11-30 07:45] LABS: AST/SGOT 40 U/L (17-59); BILIRUBIN,TOTAL 0.3 mg/dL (0.2-1.3); CARBON DIOXIDE 28 mmol/L (22-30); GFR AFRICAN-AMERICAN > 60
[2016-11-30 07:46] LABS: ALB/GLOB RATIO 0.9 (1.0-2.1); ALKALINE PHOSPHATASE 120 U/L (38-126); ALT/SGPT 67 U/L (21-72); BLOOD UREA NITROGEN 22 mg/dL (9-20); CALCIUM 8.5 mg/dl (8.6-10.4); GLUCOSE,RANDOM 119 mg/dL (75-110); MAGNESIUM 1.8 mg/dL (1.6-2.3); PHOSPHOROUS 3.7 mg/dL (2.5-4.5); TOTAL PROTEIN 6.6 g/dL (6.3-8.3)
[2016-11-30] MEDS: Saccharomyces Boulardi 250 mg Cap PO SCH ×2 (09:17→17:57)
[2016-11-30] MEDS: Pantoprazole 40 mg Susp UD PO SCH (09:17)
--- NOTE | 2016-11-30 11:21 | CP.PCM.PN ---
Subjective - Date & Time of Evaluation Date of Evaluation: 11/30/16 Time of Evaluation: 10:00 - Subjective Subjective: Pt was seen and examined at bedside. Non-verbal, family provided history including concern for blood tinged sputum. Denied SOB, chest pain, nausea, and vomiting. Pt family interested in decanulation procedure. Objective - Vital Signs/Intake and Output Vital Signs (last 24 hours): Temp Pulse Resp BP Pulse Ox 97.8 F 89 20 111/72 100 11/30/16 07:00 11/30/16 07:00 11/30/16 07:00 11/30/16 07:00 11/30/16 07:00 Intake and Output: 11/30/16 11/30/16 06:59 18:59 Intake Total 1810 Output Total 800 Balance 1010 - Medications Medications: Current Medications Acetaminophen (Tylenol 325mg Tab) 650 mg PO Q6 PRN PRN Reason: Fever >100.4 F Last Admin: 11/29/16 13:19 Dose: 650 mg Acetylcysteine (Acetylcysteine 20%) 4 ml INH Q6H OMAR Last Admin: 11/30/16 08:13 Dose: 4 ml Albuterol Sulfate (Albuterol 0.083% Inhal Kim (2.5 Mg/3 Ml) Ud) 2.5 mg INH RQ6 OMAR Last Admin: 11/30/16 08:12 Dose: 2.5 mg Amlodipine Besylate (Norvasc) 5 mg PO DAILY OMAR Last Admin: 11/30/16 09:17 Dose: 5 mg Aspirin (Aspirin Chewable) 81 mg GT DAILY OMAR Last Admin: 11/30/16 09:17 Dose: 81 mg Ciprofloxacin (Cipro 400mg/200ml Dsw) 200 mls @ 133 mls/hr IVPB Q12H OMAR Last Admin: 11/30/16 04:35 Dose: 133 mls/hr Pantoprazole Sodium (Protonix Susp) 40 mg PO DAILY OMAR Last Admin: 11/30/16 09:17 Dose: 40 mg Rosuvastatin Calcium (Crestor) 5 mg GT HS OMAR Last Admin: 11/29/16 22:18 Dose: 5 mg Saccharomyces Boulardii (Florastor) 250 mg PO BID OMAR Last Admin: 11/30/16 09:17 Dose: 250 mg - Labs Labs: 11/30/16 07:19 11/30/16 07:19 PT 12.9 SECONDS (9.7-12.2) H 11/15/16 13:58 INR 1.2 11/15/16 13:58 APTT 39 SECONDS (21-34) H 11/15/16 13:58 - Constitutional Appears: Well, No Acute Distress - Head Exam Head Exam: ATRAUMATIC, NORMOCEPHALIC - Respiratory Exam Respiratory Exam: Clear to Ausculation Bilateral, NORMAL BREATHING PATTERN. absent: Rales, Rhonchi, Wheezes, Respiratory Distress - Cardiovascular Exam Cardiovascular Exam: +S1, +S2. absent: Murmur - Neurological Exam Neurological Exam: Alert, Awake, Oriented x3 - Psychiatric Exam Psychiatric exam: Normal Affect, Normal Mood - Skin Skin Exam: Dry, Intact, Normal Color, Warm Assessment and Plan - Assessment and Plan (Free Text) Assessment: Respiratory failure Plan: Continue albuterol Continue antibiotics Decanulation completed; pulse ox after procedure 99% on 3L Continue current management; follow up if necessary.
--- NOTE | 2016-11-30 14:19 | CP.PCM.PN ---
<Marybel Taylor - Last Filed: 11/30/16 14:13> Subjective - Date & Time of Evaluation Date of Evaluation: 11/30/16 Time of Evaluation: 06:20 - Subjective Subjective: Internal medicine progress note for Hospitalist service- Marybel Taylor, PGY-1 Pt S & E at bedside. Pt resting comfortably in bed- trach collar disconnected from trach collar tubing- tubing on floor. Per nursing- pt has increased ROM of RUE- has removed his trach tubing once before. Objective - Vital Signs/Intake and Output Vital Signs (last 24 hours): Temp Pulse Resp BP Pulse Ox 97.8 F 89 20 111/72 100 11/30/16 07:00 11/30/16 07:00 11/30/16 07:00 11/30/16 07:00 11/30/16 07:00 Intake and Output: 11/30/16 11/30/16 06:59 18:59 Intake Total 1810 Output Total 800 Balance 1010 - Medications Medications: Current Medications Acetaminophen (Tylenol 325mg Tab) 650 mg PO Q6 PRN PRN Reason: Fever >100.4 F Last Admin: 11/29/16 13:19 Dose: 650 mg Acetylcysteine (Acetylcysteine 20%) 4 ml INH Q6H OMAR Last Admin: 11/30/16 13:42 Dose: 4 ml Albuterol Sulfate (Albuterol 0.083% Inhal Kim (2.5 Mg/3 Ml) Ud) 2.5 mg INH RQ6 OMAR Last Admin: 11/30/16 13:42 Dose: 2.5 mg Amlodipine Besylate (Norvasc) 5 mg PO DAILY OMAR Last Admin: 11/30/16 09:17 Dose: 5 mg Aspirin (Aspirin Chewable) 81 mg GT DAILY OMAR Last Admin: 11/30/16 09:17 Dose: 81 mg Ciprofloxacin (Cipro 400mg/200ml Dsw) 200 mls @ 133 mls/hr IVPB Q12H [facility] Last Admin: 11/30/16 04:35 Dose: 133 mls/hr Pantoprazole Sodium (Protonix Susp) 40 mg PO DAILY OMAR Last Admin: 11/30/16 09:17 Dose: 40 mg Rosuvastatin Calcium (Crestor) 5 mg GT HS OMAR Last Admin: 11/29/16 22:18 Dose: 5 mg Saccharomyces Boulardii (Florastor) 250 mg PO BID OMAR Last Admin: 11/30/16 09:17 Dose: 250 mg - Labs Labs: 11/30/16 07:19 11/30/16 07:19 PT 12.9 SECONDS (9.7-12.2) H 11/15/16 13:58 INR 1.2 11/15/16 13:58 APTT 39 SECONDS (21-34) H 11/15/16 13:58 - Constitutional Appears: Non-toxic, No Acute Distress - Head Exam Head Exam: ATRAUMATIC, NORMAL INSPECTION, NORMOCEPHALIC - Eye Exam Eye Exam: EOMI, Normal appearance, PERRL Pupil Exam: NORMAL ACCOMODATION, PERRL - ENT Exam ENT Exam: Mucous Membranes Moist, Normal Exam - Neck Exam Neck Exam: absent: Full ROM (difficulty looking right) Additional comments: trach collar in place - Respiratory Exam Respiratory Exam: Clear to Ausculation Bilateral, NORMAL BREATHING PATTERN - Cardiovascular Exam Cardiovascular Exam: REGULAR RHYTHM, +S1, +S2. absent: Murmur - GI/Abdominal Exam GI & Abdominal Exam: Soft, Normal Bowel Sounds. absent: Tenderness Additional comments: PEG tube in place - Extremities Exam Extremities Exam: Normal Capillary Refill, Normal Inspection. 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 11/30: Pt with increased ROM of RUE after rehab efforts of family 11/29: Trach collar with secretions, asked pulm to re-evaluate for either weaning or valve 11/28: Trach collar in place with secretions- cleaned up, respiratory informed that pt needs suctioning 11/25: Trach care being provided by nursing, secretions noted, trach collar in place 11/24: Trach collar with copious secretions, trach care as per nursing 11/23: Stable, trach collar care as per nursing, continues with copious secretions 11/22: Trach collar in place, no secretions audible this morning, cont ASA daily 11/21: Trach collar in place, secretions audible- nursing notified; ASA 81 mg daily started as per neuro 11/19: Minimal secretions at trach, stable 11/18: Trach collar in place, stable 11/17: On trach collar, stable, lots of secretions 11/16: Stable on trach collar, no changes 11/15: Stable, no changes, trach collar in place 11/14: trach collar in place 11/13: Pt still with secretions, respiratory informed and will address 11/11: Secretions continued, started duonebs and mucomyst, informed nursing to do trach care and suctioning 11/10: Pt with audible secretions on trach collar- nursing informed, OGT in place 11/09: Pt resting comfortably in bed, trach to trach collar- tolerating w/some secretions as per respiratory, OGT In place 11/08: Resting comfortably, trach in place, OGT in place, does not 11/07: Resting comfortably, trach in place 11/06: Trach in place, resting comfortably. Follows simple commands to protrude tongue and move L arm 11/05: did not follow simple commands 11/04: Continues to follows simple commands in Romansh Neurology consult - Dr. Simpson advise to schedule trach and PEG. Hold antiplatelets for 4-6 weeks and maintain blood pressure above 100 systolic. Sedation as needed 10/24 CT Head: little interval change in the size of left thalamic hemorrhage 2.4x2.9 cm with intraventricular extension of hemorrhage and mild obstructive hydrocephalus. 2 mm midline shift from left to right with no evidence of herniation. Near complete resolution of hemorrhage within 4th ventricle. 10/19 CT Head: little interval change in the known 2.0 x 2.7 acute hematoma in left thalamus with intra ventricular extension of hemorrhage. Interval mild worsening of obstructive hydrocephalus. 10/18 CT Head: Left basal ganglia acute hemorrhage, possibly hypertensive with associated intraventricular hemorrhage and mass effect upon the left lateral aspect of the 3rd ventricle with the tip shift of the 3rd ventricle towards the right side. No generalized midline shift. Air-fluid level in sphenoid sinus common nonspecific. Please correlate for concern regarding acute sinusitis. Mild involutional changes. GCS - 8T (E4 VT M4) [place] PASS II 10.0, 12% estimated non-operative mortality 11/03- CT brain w/o cont for re-evaluation of bleed w/findings of Interval decrease in size and density left basal ganglia hematoma however well- circumscribed peripheral rim of low-attenuation edema about the hematoma likely represent some combination of brain edema as well as of brain necrosis. Intraventricular hemorrhage has diminished. Ventricles have also decreased in size though the temporal horns and atria remain prominent compared to the compressed remaining ventricular system. There is persistent compression of the 3rd and left lateral ventricle Chronic white matter and basal nuclei ischemic changes. December 07- reassess pt need for anticoagulation with neurology HTN: 11/30: 111/72- well controlled on Norvasc, cont 11/29: 120/70- Cont Norvasc 11/28: BP 108/68- Cont Norvasc 11/25: BP 106/71- cont Norvasc 11/24: BP WNL- cont Norvasc 11/23: 126/78m cont Norvasc 11/22: BP 118/78, cont Norvasc/monitor 11/21: BP 128/89, cont Norvasc 11/19: BP stable, c/w current management 11/18: BP 145/89; Cont Norvasc 11/17: 150/89; cont Norvasc 11/16: BP 138/88,- cont Norvasc 11/15: BP 142/83, cont Norvasc/monitor VS 11/14:BP 146/95, cont Norvasc 11/12: BP controlled 11/11: BP 134/91, started Norvasc 5mg Daily 11/10: BP 135/90, will d/c IVF 11/09: BP 169/94- same as previous 11/08: BP 148/95, slight elevated, but mostly WNL- continue to hold Hydralazine 11/06: BP elevated 161/99; continue to monitor 11/05: BP WNL Amlodipine 10 mg POQD Hydralazine 25 mg PO BID - currently being held- BP WNL Losartan 100 mg POQD Labetalol 200 mg PO Q12H Respiratory failure on trach collar: 11/30: Pulm recs- cont albuterol, ABx, decannulated- pO2 after procedure 99% on 3L, cont current mgmt 11/29: Awaiting pulm recs regarding weaning vs. valve for Trach collar 11/28: Pulm re-consulted for recs regarding weaning pt off trach collar 11/25: Pulm following, trach collar in place, mucus secretions noted, being cleaned up by nursing 11/24: Trach collar with secretions, non bloody, pulm following 11/23: Trach collar in place, pt tolerating, pulm following 11/22: TC in place, care as per respiratory, nursing, pulm following 11/21: Trach collar at 30%FiO2, pulm following, trach care as per respiratory and nursing 11/20: no changes, pul following 11/18: Trach collar at 30% FiO2, pulm following 11/17: Pulm following, pt on 30%FiO2 via trach collar- stable 11/16: Pulm following - pt on T tube for PEG 11/15: Pulm following- cont trach collar, pulm toilet 11/14: Still tolerating trach collar off vent, pulm following 11/13: Off of vent, tolerating well. 11/11: Pulm recs- Continue weaning with trials off vent, continue nebulizer treatments 11/10: On trach collar, pulm consulted for potential weaning, mucomyst ordered for secretions 11/08: Trial pt on trach collar w/o mech vent Pulm consulted for trach weaning protocol- Leo 11/08: Trial pt on trach collar w/o mech vent 11/07: Trach collar w/CPAP 11/06: Trach in place. On mech vent s/p tracheostomy Trach tube care CPAP ABG: -10/29 pH 7.46, CO 35, O2 90, HCO3 26.0 -10/28 pH 7.46, CO2 35, O2 73, HCO3 25.9 -16 pH 7.49, CO2 33, O2 74, HCO3 26.5 -15 pH 7.5, CO2 32, O2 91, HCO3 26.6 -10/24 pH 7.47, CO2 35, O2 119, HCO3 26.5 -12 pH 7.47, CO2 33, O2 66, HCO3 25.5 -11 pH 7.52, CO2 33, O2 57, HCO3 28.1 -10 pH 7.48, CO2 38, O2 79, HCO3 28.5 -10/20 pH 7.46, CO2 37, O2 187 HCO3 26.9 -8 pH 7.46, CO2 38, O2 214, HCO3 27.4 Imaging 11/08 CXR-Tracheostomy tube in place. Other lines and tubes in stable position. Mild patchy increased markings in the right infrahilar region. Biapical pleural thickening. 11/02/CXR - repeat CXR for replacement of OGT w/Support lines tubes - normally positioned No interval pathology noted 11/02 CXR - Interval improvement in the right lower lung since the previous study. Appropriate position of the right-sided PICC line with the tip is likely at the SVC right atrium junction 11/01 CXR - The in situ tracheostomy tube and NG tube positions are as before. Mild interval prominence of the right infrahilar bronchovascular markings either due to technique or subtle interval patchy infiltrate. Clinical follow- up recommended 10/31 CXR -In situ tracheostomy tube remains in good position. NGT w/tip overlying LUQ of the abdomen unchanged. Continued improvement right lung base. 10/28 CXR No focal airspace opacity 10/27 CXR No active disease 10/26 CXR - Mild venous congestion. Right hilar prominence 10/24 CXR Mild venous congestion. Mild right infrahilar prominence 10/23 CXR - Mild venous congestion. right hilar prominence. Biapical pleural thickening upper lobe granulomatous changes. lines and tubes in stable position. 10/22 CXR - Worsening consolidative changes to right mid to lower lung zone. lines and tubes in stable position. 10/20 CXR - Distal tip of an endotracheal tube terminates approximately 4.6 cm above the brisa. Left IJ approach Central venous catheter terminates at expected location of the left innominate vein. Nasogastric tube extends to expected location of the stomach 10/19 CXR New nasogastric tube extends to distal esophagus, above the diaphragm. Repositioning is advised. ET tube unchanged. No infiltrate. 10/18 CXR ET tube proximal to brisa, no acute pulmonary pathology official read pending Head of bed to 30* Keep O2 Sat >92% Dysphagia 11/30: PEG tube in place, no residuals, tolerating tube feeds, will cont 11/29: PEG tube in place, no residuals, tolerating tube feeds- cont 11/28: PEG tube in place 11/25: PEG in place, residuals of 5cc/night per nursing 11/24: PEG tube in place, no residuals as per nursing, tolerating 60cc/hr tube feeds 11/23: Dietary recs for goal of 60cc/hr tube feeds, pt tolerating new goal, no residuals. PEG tube in place. 4/11: No residuals, dietary reconsulted for recs 11/21: Pt at goal of 50cc/hr tube feeds, PEG tube in place, no drainage noted 11/19: tolerating feedings 11/18: Tube feeds to 30cc today, keep free water flushes 11/17: PEG tube placed, tube feeds to start at noon, Dietary recs- Isosource 1.5, goal rate 50ml; Free water flushes 300cc Q8H 11/16: PEG tube today, tube feeds held 11/15: PEG tube in AM per GI, told Tube feeds after MN- NPO and nursing order in 11/14: No residuals overnight, ok to increase rate to 30cc/hr, GI re-consulted for PEG tube placement 11/11: Pt w/10cc residuals- kept at rate of 20cc/hr, will consider increasing by 10cc tomorrow if no residuals 11/10: Tube feeds stable 11/09: Tube feeds at 30cc/hr, no reported residuals. Advance by 10cc per day until goal of 50cc. 11/08- OGT placed last night, position verified- ok to use OGT for tube feeds 11/07: NPO- no access to stomach 11/05: OGT removed due to possible contribution to fever/sepsis. Feeding tube via oropharynx replaced 11/02 after pt removed position verified by CXR Feeding tube via oropharynx replaced 11/01 Position verified by CXR NGT was advanced 10/20 - d/c'd Consulted GI- Dr. Renterai- PEG tube placement when not having fevers/ leukocytosis Anemia- stable 11/30: H/H 10.3/32 11/24-: No labs today 11/23: H/H 10.8/33.3 11/22: No labs today 11/21: Labs from 11/20: H/H 11/34.2- stable 11/18: No labs 11/17: H/H 11.9/36.5 11/16: H/H 12.2/38.1; PT 12.9, INR 1.2, PTT 39 11/15: H/H- 11.4/35.5, FU PT/INR/PTT 11/14: H/H - 11.3/35.2 11/11: H/H- 11.1/34.8 11/10: H/H- 11.5/36.1 11/09: H/H- 12.2/39.3 11/08: H/H- 10.4/33.5 11/07: H/H- 11.1/35.8 11/06: f/u H&H, monitor 11/05-11/06: H&H low, stable, continue to monitor H&H: 12.5/40.2- stable Intracranial bleed No coagulopathy Contraindication for anticoagulation Monitor Sepsis- resolved 11/30: Cont Cipro as per ID for UTI 11/29: Repeat urine cxr grew multiple species, prior urine cx pos for pseudomonas - per ID- d/c Diflucan, start Cipro 400mg Q12H 11/28: Will repeat Urine Cx tomorrow, continue Diflucan 11/25: Cont Diflucan as per ID, FU repeat Urine cx ordered today 11/24: Cont diflucan 11/23: urine cx pos for yeast again. ID informed, told to continue Diflucan. 11/22: FU urine cx- if negative, will d/c Diflucan. Pt off Merrem and vanc. 11/21: Per ID- ok to de-escalate Antibiotics- Vanc discontinued last week, Merrem discontinued today, will continue Diflucan until repeat Urine cx resulted - [place] catheter changed on 11/18 11/19: no changes, afebrile 11/18: Afebrile over last 24H, no labs today, per ID- de-escalate Abx- do not renew Vanc, will cont merrem over the weekend, then d/c on 11/21. Change the [place] catheter if urine cx still positive for yeast. 11/17: Afebrile over last 24H, no leukocytosis- stable, no changes 11/16: Afebrile over last 24H, no leukocytosis- stable, no changes 11/15: Afebrile over last 24H, no leukocytosis- stable FU Vanc trough at 1pm 11/15 11/14: Afebrile over last 24H, no leukocytosis 11/13: Afebrile, labs stable 11/12: Afebrile overnight, f/u am labs 11/11: Afebrile over last 24H, WBC down trending, now 12.3 from 12.6, per ID: resume vancomcyin; trough 10-15; and monitor wbc count FU sputum cxr- talked to lab- results will be available on 11/12- so far only normal kalin growing FU vanc trough on 11/12 before 3rd dose 11/10: Afebrile over last 24H, WBC down trending, no w 12.6 from 14.1, Blood cx neg x 4 D, repeat urine cxr pos for yeast 11/09: Afebrile over last 24H, WBC increased from 11.9 to 14.1; Blood/urine/ sputum cxr sent Vanc trough 8.4 Urine cxr pos for yeast Diflucan 200mg Q24H ordered ID consulted for adjustement of antibiotics/antifungals- awaiting recs 11/08: Afebrile over last 24H, WBC 11.9, Bands 3 11/07: Afebrile over last 24H, WBC 16.3, Bands 6 Trach asp pos for Gram neg rods Blood cxr neg x 48H 11/06: Continue to monitor WBC 11/05: Leukocytosis 21.8 from 19.4, 16.7 - trending up 11/05: Vanc trough - 5.1 Afebrile over last 24H -Started Vanco 1gm Q24H vanco through 11/02 - 5.1 11/01- apr work up sent: blood cxr, urine cxr, CXR, C diff stool Blood cxr neg x 48H urine cxr neg Bandemia 5 10/31- Trach asp cx - normal kalin 10/31 - Urine ([place]) cxr neg 10/25 Sputum cx: Serratia marcescens and Enterobactor aerogenes 10/21 Sputum cx: Klebsiella pneumoniae Hold change of antibiotics. Fully aware of the low grade temperature, and increase in WBCs. Patient is hemodynamically stable. IV Cefepime 1 gram Q8H Acetaminophen 650 mg Q6 PRN for fever ID following- Kathy- continue Merrem and Vanco due to aspiration and pos Enterobacter Aerogenes Per Micro- Enterobacter aerogenes sensitive to merrem cont merrem Per ID: increase vanc to 1gm Q12H, FU vanc peak and trough on 3rd dose, cont diflucan Vanc trough 13.8- Vanco held, no peak done due to high trough Muscular deconditioning due to being bed bound PT/OT to work with pt Pt and family member at bedside instructed on self-rehab exercises Monitor tracheostomy site for drainage, erythema, hematoma, signs of infection. Prophylaxis: GI - Protonix 40 mg IVP daily DVT - contraindicated 09/15 to intracranial bleed WIll re-asses VTE needs on 12/07 Dispo: Con current mgmt ID following Pulm following Cont condom catheter Cont general body care SW eval for possible LTAC after PEG placement PEG tube with tube feeding in place @ goal of 60 cc/hour per dietary Labs Q7days PT/OT Pt in process of being added to 's insurance SW informed that pt's family is unable to afford/provide care for pt at home Decannulated trach today as per pulm- monitor DW attending <Johny Saldana H - Last Filed: 11/30/16 16:28> Objective - Vital Signs/Intake and Output Vital Signs (last 24 hours): Temp Pulse Resp BP Pulse Ox 98.3 F 88 20 128/79 100 11/30/16 15:00 11/30/16 15:00 11/30/16 15:00 11/30/16 15:00 11/30/16 15:00 Intake and Output: 11/30/16 11/30/16 06:59 18:59 Intake Total 1810 680 Output Total 800 300 Balance 1010 380 - Medications Medications: Current Medications Acetaminophen (Tylenol 325mg Tab) 650 mg PO Q6 PRN PRN Reason: Fever >100.4 F Last Admin: 11/29/16 13:19 Dose: 650 mg Acetylcysteine (Acetylcysteine 20%) 4 ml INH Q6H OMAR Last Admin: 11/30/16 13:42 Dose: 4 ml Albuterol Sulfate (Albuterol 0.083% Inhal Kim (2.5 Mg/3 Ml) Ud) 2.5 mg INH RQ6 OMAR Last Admin: 11/30/16 13:42 Dose: 2.5 mg Amlodipine Besylate (Norvasc) 5 mg PO DAILY OMAR Last Admin: 11/30/16 09:17 Dose: 5 mg Aspirin (Aspirin Chewable) 81 mg GT DAILY OMAR Last Admin: 11/30/16 09:17 Dose: 81 mg Ciprofloxacin (Cipro 400mg/200ml Dsw) 200 mls @ 133 mls/hr IVPB Q12H OMAR Last Admin: 11/30/16 04:35 Dose: 133 mls/hr Pantoprazole Sodium (Protonix Susp) 40 mg PO DAILY OMAR Last Admin: 11/30/16 09:17 Dose: 40 mg Rosuvastatin Calcium (Crestor) 5 mg GT HS OMAR Last Admin: 11/29/16 22:18 Dose: 5 mg Saccharomyces Boulardii (Florastor) 250 mg PO BID OMAR Last Admin: 11/30/16 09:17 Dose: 250 mg - Labs Labs: 11/30/16 07:19 11/30/16 07:19 PT 12.9 SECONDS (9.7-12.2) H 11/15/16 13:58 INR 1.2 11/15/16 13:58 APTT 39 SECONDS (21-34) H 11/15/16 13:58 Attending/Attestation - Attestation I have personally seen and examined this patient.: Yes I have fully participated in the care of the patient.: Yes I have reviewed all pertinent clinical information, including history, physical exam and plan: Yes Notes (Text): Medical Attending: Patient was seen and examined by me. Agree with the above note by the resident The patient appeared to be well today. Hopefully later in the day the trach can be removed, or if need be changed over to a fenerstrated trach. thank you Johny Saldana
[2016-12-01] MEDS: Acetylcysteine 20% Inhal Soln (4ml) INH SCH ×4 (01:51→19:49)
[2016-12-01] MEDS: Albuterol 0.083% Inhal Sol (2.5 mg/3 mL) UD INH SCH ×4 (01:51→19:49)
[2016-12-01] MEDS: Ciprofloxacin 400mg/200ml D5W 200 ML IVPB SCH ×2 (05:18→17:00)
[2016-12-01] MEDS: Saccharomyces Boulardi 250 mg Cap PO SCH ×2 (10:31→18:00)
[2016-12-01] MEDS: Pantoprazole 40 mg Susp UD PO SCH (10:31)
--- NOTE | 2016-12-01 11:47 | CP.PCM.PN ---
<Marybel Taylor - Last Filed: 12/01/16 11:44> Subjective - Date & Time of Evaluation Date of Evaluation: 12/01/16 Time of Evaluation: 07:20 - Subjective Subjective: Internal medicine progress note for Hospitalist service- Marybel Taylor, PGY-1 Pt S & E at bedside. Pt resting comfortably in bed, no acute distress, trach site with dressing in place-C/D/I- pt attempting to verbalize, mouthing words. Pt able to lift RUE approximately 6cm off bed. No events overnight per nursing. Objective - Vital Signs/Intake and Output Vital Signs (last 24 hours): Temp Pulse Resp BP Pulse Ox 98 F 94 H 20 137/78 97 12/01/16 07:16 12/01/16 07:16 12/01/16 07:16 12/01/16 07:16 12/01/16 07:16 Intake and Output: 12/01/16 12/01/16 06:59 18:59 Intake Total 1760 Output Total 750 Balance 1010 - Medications Medications: Current Medications Acetaminophen (Tylenol 325mg Tab) 650 mg PO Q6 PRN PRN Reason: Fever >100.4 F Last Admin: 11/29/16 13:19 Dose: 650 mg Acetylcysteine (Acetylcysteine 20%) 4 ml INH Q6H [facility] Last Admin: 12/01/16 08:11 Dose: 4 ml Albuterol Sulfate (Albuterol 0.083% Inhal Kim (2.5 Mg/3 Ml) Ud) 2.5 mg INH RQ6 [facility] Last Admin: 12/01/16 08:11 Dose: 2.5 mg Amlodipine Besylate (Norvasc) 5 mg PO DAILY [facility] Last Admin: 12/01/16 10:31 Dose: 5 mg Aspirin (Aspirin Chewable) 81 mg GT DAILY [facility] Last Admin: 12/01/16 10:31 Dose: 81 mg Ciprofloxacin (Cipro 400mg/200ml Dsw) 200 mls @ 133 mls/hr IVPB Q12H [facility] Last Admin: 12/01/16 05:18 Dose: 133 mls/hr Pantoprazole Sodium (Protonix Susp) 40 mg PO DAILY [facility] Last Admin: 12/01/16 10:31 Dose: 40 mg Rosuvastatin Calcium (Crestor) 5 mg GT HS [facility] Last Admin: 11/30/16 21:44 Dose: 5 mg Saccharomyces Boulardii (Florastor) 250 mg PO BID [facility] Last Admin: 12/01/16 10:31 Dose: 250 mg - Labs Labs: 11/30/16 07:19 11/30/16 07:19 PT 12.9 SECONDS (9.7-12.2) H 11/15/16 13:58 INR 1.2 11/15/16 13:58 APTT 39 SECONDS (21-34) H 11/15/16 13:58 - Constitutional Appears: Non-toxic, No Acute Distress, Cachectic - Head Exam Head Exam: ATRAUMATIC, NORMAL INSPECTION, NORMOCEPHALIC - Eye Exam Eye Exam: EOMI, Normal appearance, PERRL Pupil Exam: NORMAL ACCOMODATION, PERRL - ENT Exam ENT Exam: Mucous Membranes Moist, Normal Exam - Neck Exam Additional comments: tracheostomy site with dressing in place- C/D/I - Respiratory Exam Respiratory Exam: Clear to Ausculation Bilateral, NORMAL BREATHING PATTERN - Cardiovascular Exam Cardiovascular Exam: REGULAR RHYTHM, +S1, +S2. absent: Murmur - GI/Abdominal Exam GI & Abdominal Exam: Soft, Normal Bowel Sounds. absent: Tenderness Additional comments: PEG tube in place - Extremities Exam Extremities Exam: Normal Capillary Refill, Normal Inspection. absent: Full ROM (increased ROM of RUE, still decreased vs. 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 12/01: Increased ROM of RUE 11/30: Pt with increased ROM of RUE after rehab efforts of family 11/29: Trach collar with secretions, asked pulm to re-evaluate for either weaning or valve 11/28: Trach collar in place with secretions- cleaned up, respiratory informed that pt needs suctioning 11/25: Trach care being provided by nursing, secretions noted, trach collar in place 11/24: Trach collar with copious secretions, trach care as per nursing 11/23: Stable, trach collar care as per nursing, continues with copious secretions 11/22: Trach collar in place, no secretions audible this morning, cont ASA daily 4/10: Trach collar in place, secretions audible- nursing notified; ASA 81 mg daily started as per neuro 11/19: Minimal secretions at trach, stable 11/18: Trach collar in place, stable 11/17: On trach collar, stable, lots of secretions 11/16: Stable on trach collar, no changes 11/15: Stable, no changes, trach collar in place 11/14: trach collar in place 11/13: Pt still with secretions, respiratory informed and will address 11/11: Secretions continued, started duonebs and mucomyst, informed nursing to do trach care and suctioning 11/10: Pt with audible secretions on trach collar- nursing informed, OGT in place 11/09: Pt resting comfortably in bed, trach to trach collar- tolerating w/some secretions as per respiratory, OGT In place 11/08: Resting comfortably, trach in place, OGT in place, does not 11/07: Resting comfortably, trach in place 11/06: Trach in place, resting comfortably. Follows simple commands to protrude tongue and move L arm 11/05: did not follow simple commands 11/04: Continues to follows simple commands in English Neurology consult - Dr. Simpson advise to schedule trach and PEG. Hold antiplatelets for 4-6 weeks and maintain blood pressure above 100 systolic. Sedation as needed 10/24 CT Head: little interval change in the size of left thalamic hemorrhage 2.4x2.9 cm with intraventricular extension of hemorrhage and mild obstructive hydrocephalus. 2 mm midline shift from left to right with no evidence of herniation. Near complete resolution of hemorrhage within 4th ventricle. 10/19 CT Head: little interval change in the known 2.0 x 2.7 acute hematoma in left thalamus with intra ventricular extension of hemorrhage. Interval mild worsening of obstructive hydrocephalus. 10/18 CT Head: Left basal ganglia acute hemorrhage, possibly hypertensive with associated intraventricular hemorrhage and mass effect upon the left lateral aspect of the 3rd ventricle with the tip shift of the 3rd ventricle towards the right side. No generalized midline shift. Air-fluid level in sphenoid sinus common nonspecific. Please correlate for concern regarding acute sinusitis. Mild involutional changes. GCS - 8T (E4 VT M4) KW[place] II 10.0, 12% estimated non-operative mortality 11/03- CT brain w/o cont for re-evaluation of bleed w/findings of Interval decrease in size and density left basal ganglia hematoma however well- circumscribed peripheral rim of low-attenuation edema about the hematoma likely represent some combination of brain edema as well as of brain necrosis. Intraventricular hemorrhage has diminished. Ventricles have also decreased in size though the temporal horns and atria remain prominent compared to the compressed remaining ventricular system. There is persistent compression of the 3rd and left lateral ventricle Chronic white matter and basal nuclei ischemic changes. December 07- reassess pt need for anticoagulation with neurology HTN: 12/01: BP 137/78- cont Norvasc 11/30: 111/72- well controlled on Norvasc, cont 11/29: 120/70- Cont Norvasc 11/28: BP 108/68- Cont Norvasc 11/25: BP 106/71- cont Norvasc 11/24: BP WNL- cont Norvasc 11/23: 126/78m cont Norvasc 11/22: BP 118/78, cont Norvasc/monitor 11/21: BP 128/89, cont Norvasc 11/19: BP stable, c/w current management 11/18: BP 145/89; Cont Norvasc 11/17: 150/89; cont Norvasc 11/16: BP 138/88,- cont Norvasc 11/15: BP 142/83, cont Norvasc/monitor VS 11/14:BP 146/95, cont Norvasc 11/12: BP controlled 11/11: BP 134/91, started Norvasc 5mg Daily 11/10: BP 135/90, will d/c IVF 11/09: BP 169/94- same as previous 11/08: BP 148/95, slight elevated, but mostly WNL- continue to hold Hydralazine 11/06: BP elevated 161/99; continue to monitor 11/05: BP WNL Amlodipine 10 mg POQD Hydralazine 25 mg PO BID - currently being held- BP WNL Losartan 100 mg POQD Labetalol 200 mg PO Q12H Respiratory failure - resolved 12/01: Trachestomy decannulated, pt tolerating Room air, tracheostomy site with dressing in place 11/30: Pulm recs- cont albuterol, ABx, decannulated- pO2 after procedure 99% on 3L, cont current mgmt 11/29: Awaiting pulm recs regarding weaning vs. valve for Trach collar 11/28: Pulm re-consulted for recs regarding weaning pt off trach collar 11/25: Pulm following, trach collar in place, mucus secretions noted, being cleaned up by nursing 11/24: Trach collar with secretions, non bloody, pulm following 11/23: Trach collar in place, pt tolerating, pulm following 11/22: TC in place, care as per respiratory, nursing, pulm following 11/21: Trach collar at 30%FiO2, pulm following, trach care as per respiratory and nursing 11/20: no changes, pul following 11/18: Trach collar at 30% FiO2, pulm following 11/17: Pulm following, pt on 30%FiO2 via trach collar- stable 11/16: Pulm following - pt on T tube for PEG 11/15: Pulm following- cont trach collar, pulm toilet 11/14: Still tolerating trach collar off vent, pulm following 11/13: Off of vent, tolerating well. 11/11: Pulm recs- Continue weaning with trials off vent, continue nebulizer treatments 11/10: On trach collar, pulm consulted for potential weaning, mucomyst ordered for secretions 11/08: Trial pt on trach collar w/o mech vent Pulm consulted for trach weaning protocol- Leo 11/08: Trial pt on trach collar w/o mech vent 11/07: Trach collar w/CPAP 11/06: Trach in place. On mech vent s/p tracheostomy Trach tube care CPAP ABG: -10/29 pH 7.46, CO 35, O2 90, HCO3 26.0 -10/28 pH 7.46, CO2 35, O2 73, HCO3 25.9 -10/27 pH 7.49, CO2 33, O2 74, HCO3 26.5 -10/26 pH 7.5, CO2 32, O2 91, HCO3 26.6 -10/24 pH 7.47, CO2 35, O2 119, HCO3 26.5 -10/23 pH 7.47, CO2 33, O2 66, HCO3 25.5 -10/22 pH 7.52, CO2 33, O2 57, HCO3 28.1 -10/21 pH 7.48, CO2 38, O2 79, HCO3 28.5 -10/20 pH 7.46, CO2 37, O2 187 HCO3 26.9 -10/19 pH 7.46, CO2 38, O2 214, HCO3 27.4 Imaging 11/08 CXR-Tracheostomy tube in place. Other lines and tubes in stable position. Mild patchy increased markings in the right infrahilar region. Biapical pleural thickening. 11/02/CXR - repeat CXR for replacement of OGT w/Support lines tubes - normally positioned No interval pathology noted 11/02 CXR - Interval improvement in the right lower lung since the previous study. Appropriate position of the right-sided PICC line with the tip is likely at the SVC right atrium junction 11/01 CXR - The in situ tracheostomy tube and NG tube positions are as before. Mild interval prominence of the right infrahilar bronchovascular markings either due to technique or subtle interval patchy infiltrate. Clinical follow- up recommended 10/31 CXR -In situ tracheostomy tube remains in good position. NGT w/tip overlying LUQ of the abdomen unchanged. Continued improvement right lung base. 10/28 CXR No focal airspace opacity 10/27 CXR No active disease 10/26 CXR - Mild venous congestion. Right hilar prominence 10/24 CXR Mild venous congestion. Mild right infrahilar prominence 10/23 CXR - Mild venous congestion. right hilar prominence. Biapical pleural thickening upper lobe granulomatous changes. lines and tubes in stable position. 10/22 CXR - Worsening consolidative changes to right mid to lower lung zone. lines and tubes in stable position. 10/20 CXR - Distal tip of an endotracheal tube terminates approximately 4.6 cm above the brisa. Left IJ approach Central venous catheter terminates at expected location of the left innominate vein. Nasogastric tube extends to expected location of the stomach 10/19 CXR New nasogastric tube extends to distal esophagus, above the diaphragm. Repositioning is advised. ET tube unchanged. No infiltrate. 10/18 CXR ET tube proximal to birsa, no acute pulmonary pathology official read pending Head of bed to 30* Keep O2 Sat >92% Dysphagia 12/01: PEG tube in place, ordered Prostat for additional protein 11/30: PEG tube in place, no residuals, tolerating tube feeds, will cont 11/29: PEG tube in place, no residuals, tolerating tube feeds- cont 11/28: PEG tube in place 11/25: PEG in place, residuals of 5cc/night per nursing 11/24: PEG tube in place, no residuals as per nursing, tolerating 60cc/hr tube feeds 11/23: Dietary recs for goal of 60cc/hr tube feeds, pt tolerating new goal, no residuals. PEG tube in place. 11/22: No residuals, dietary reconsulted for recs 11/21: Pt at goal of 50cc/hr tube feeds, PEG tube in place, no drainage noted 11/19: tolerating feedings 11/18: Tube feeds to 30cc today, keep free water flushes 11/17: PEG tube placed, tube feeds to start at noon, Dietary recs- Isosource 1.5, goal rate 50ml; Free water flushes 300cc Q8H 11/16: PEG tube today, tube feeds held 11/15: PEG tube in AM per GI, told Tube feeds after MN- NPO and nursing order in 11/14: No residuals overnight, ok to increase rate to 30cc/hr, GI re-consulted for PEG tube placement 11/11: Pt w/10cc residuals- kept at rate of 20cc/hr, will consider increasing by 10cc tomorrow if no residuals 11/10: Tube feeds stable 11/09: Tube feeds at 30cc/hr, no reported residuals. Advance by 10cc per day until goal of 50cc. 11/08- OGT placed last night, position verified- ok to use OGT for tube feeds 11/07: NPO- no access to stomach 11/05: OGT removed due to possible contribution to fever/sepsis. Feeding tube via oropharynx replaced 11/02 after pt removed position verified by CXR Feeding tube via oropharynx replaced 11/01 Position verified by CXR NGT was advanced 10/20 - d/c'd Consulted GI- Dr. Renteria- PEG tube placement when not having fevers/ leukocytosis Anemia- stable 12/01: No labs today 11/30: H/H 10.3/32 11/24-: No labs today 11/23: H/H 10.8/33.3 11/22: No labs today 11/21: Labs from 11/20: H/H 11/34.2- stable 11/18: No labs 4/6: H/H 11.9/36.5 11/16: H/H 12.2/38.1; PT 12.9, INR 1.2, PTT 39 11/15: H/H- 11.4/35.5, FU PT/INR/PTT 11/14: H/H - 11.3/35.2 11/11: H/H- 11.1/34.8 11/10: H/H- 11.5/36.1 11/09: H/H- 12.2/39.3 11/08: H/H- 10.4/33.5 11/07: H/H- 11.1/35.8 11/06: f/u H&H, monitor 11/05-11/06: H&H low, stable, continue to monitor H&H: 12.5/40.2- stable Intracranial bleed No coagulopathy Contraindication for anticoagulation Monitor Sepsis- resolved 11/30-: Cont Cipro as per ID for UTI 11/29: Repeat urine cxr grew multiple species, prior urine cx pos for pseudomonas - per ID- d/c Diflucan, start Cipro 400mg Q12H 11/28: Will repeat Urine Cx tomorrow, continue Diflucan 11/25: Cont Diflucan as per ID, FU repeat Urine cx ordered today 11/24: Cont diflucan 11/23: urine cx pos for yeast again. ID informed, told to continue Diflucan. 11/22: FU urine cx- if negative, will d/c Diflucan. Pt off Merrem and vanc. 11/21: Per ID- ok to de-escalate Antibiotics- Vanc discontinued last week, Merrem discontinued today, will continue Diflucan until repeat Urine cx resulted - [place] catheter changed on 11/18 11/19: no changes, afebrile 11/18: Afebrile over last 24H, no labs today, per ID- de-escalate Abx- do not renew Vanc, will cont merrem over the weekend, then d/c on 11/21. Change the [place] catheter if urine cx still positive for yeast. 11/17: Afebrile over last 24H, no leukocytosis- stable, no changes 11/16: Afebrile over last 24H, no leukocytosis- stable, no changes 11/15: Afebrile over last 24H, no leukocytosis- stable FU Vanc trough at 1pm 11/15 11/14: Afebrile over last 24H, no leukocytosis 11/13: Afebrile, labs stable 11/12: Afebrile overnight, f/u am labs 11/11: Afebrile over last 24H, WBC down trending, now 12.3 from 12.6, per ID: resume vancomcyin; trough 10-15; and monitor wbc count FU sputum cxr- talked to lab- results will be available on 11/12- so far only normal kalin growing FU vanc trough on 11/12 before 3rd dose 11/10: Afebrile over last 24H, WBC down trending, no w 12.6 from 14.1, Blood cx neg x 4 D, repeat urine cxr pos for yeast 11/09: Afebrile over last 24H, WBC increased from 11.9 to 14.1; Blood/urine/ sputum cxr sent Vanc trough 8.4 Urine cxr pos for yeast Diflucan 200mg Q24H ordered ID consulted for adjustement of antibiotics/antifungals- awaiting recs 11/08: Afebrile over last 24H, WBC 11.9, Bands 3 11/07: Afebrile over last 24H, WBC 16.3, Bands 6 Trach asp pos for Gram neg rods Blood cxr neg x 48H 11/06: Continue to monitor WBC 11/05: Leukocytosis 21.8 from 19.4, 16.7 - trending up 11/05: Vanc trough - 5.1 Afebrile over last 24H -Started Vanco 1gm Q24H vanco through 11/02 - 5.1 11/01- apr work up sent: blood cxr, urine cxr, CXR, C diff stool Blood cxr neg x 48H urine cxr neg Bandemia 5 10/31- Trach asp cx - normal kalin 10/31 - Urine ([place]) cxr neg 10/25 Sputum cx: Serratia marcescens and Enterobactor aerogenes 10/21 Sputum cx: Klebsiella pneumoniae Hold change of antibiotics. Fully aware of the low grade temperature, and increase in WBCs. Patient is hemodynamically stable. IV Cefepime 1 gram Q8H Acetaminophen 650 mg Q6 PRN for fever ID following- Kathy- continue Merrem and Vanco due to aspiration and pos Enterobacter Aerogenes Per Micro- Enterobacter aerogenes sensitive to merrem cont merrem Per ID: increase vanc to 1gm Q12H, FU vanc peak and trough on 3rd dose, cont diflucan Vanc trough 13.8- Vanco held, no peak done due to high trough Muscular deconditioning due to being bed bound Cont PT/OT Pt and family member at bedside instructed on self-rehab exercises Monitor tracheostomy site for drainage, erythema, hematoma, signs of infection. Prophylaxis: GI - Protonix 40 mg IVP daily DVT - contraindicated 09/15 to intracranial bleed WIll re-asses VTE needs on 12/07 Dispo: Con current mgmt ID following Pulm following Cont condom catheter Cont general body care SW eval for possible LTAC after PEG placement PEG tube with tube feeding in place @ goal of 60 cc/hour per dietary Labs Q7days PT/OT Pt in process of being added to 's insurance SW informed that pt's family is unable to afford/provide care for pt at home Pt tolerating decannulation of tracheostomy Prostat with tube feeds DW attending <Johny Saldana H - Last Filed: 12/01/16 15:55> Objective - Vital Signs/Intake and Output Vital Signs (last 24 hours): Temp Pulse Resp BP Pulse Ox 98 F 94 H 20 137/78 97 12/01/16 07:16 12/01/16 14:44 12/01/16 07:16 12/01/16 07:16 12/01/16 07:16 Intake and Output: 12/01/16 12/01/16 06:59 18:59 Intake Total 1760 480 Output Total 750 800 Balance 1010 -320 - Medications Medications: Current Medications Acetaminophen (Tylenol 325mg Tab) 650 mg PO Q6 PRN PRN Reason: Fever >100.4 F Last Admin: 11/29/16 13:19 Dose: 650 mg Acetylcysteine (Acetylcysteine 20%) 4 ml INH Q6H [facility] Last Admin: 12/01/16 08:11 Dose: 4 ml Albuterol Sulfate (Albuterol 0.083% Inhal Kim (2.5 Mg/3 Ml) Ud) 2.5 mg INH RQ6 [facility] Last Admin: 12/01/16 08:11 Dose: 2.5 mg Amlodipine Besylate (Norvasc) 5 mg PO DAILY [facility] Last Admin: 12/01/16 10:31 Dose: 5 mg Aspirin (Aspirin Chewable) 81 mg GT DAILY [facility] Last Admin: 12/01/16 10:31 Dose: 81 mg Ciprofloxacin (Cipro 400mg/200ml Dsw) 200 mls @ 133 mls/hr IVPB Q12H [facility] Last Admin: 12/01/16 05:18 Dose: 133 mls/hr Pantoprazole Sodium (Protonix Susp) 40 mg PO DAILY [facility] Last Admin: 12/01/16 10:31 Dose: 40 mg Rosuvastatin Calcium (Crestor) 5 mg GT HS [facility] Last Admin: 11/30/16 21:44 Dose: 5 mg Saccharomyces Boulardii (Florastor) 250 mg PO BID [facility] Last Admin: 12/01/16 10:31 Dose: 250 mg - Labs Labs: 11/30/16 07:19 11/30/16 07:19 PT 12.9 SECONDS (9.7-12.2) H 11/15/16 13:58 INR 1.2 11/15/16 13:58 APTT 39 SECONDS (21-34) H 11/15/16 13:58 Attending/Attestation - Attestation I have personally seen and examined this patient.: Yes I have fully participated in the care of the patient.: Yes I have reviewed all pertinent clinical information, including history, physical exam and plan: Yes Notes (Text): 12/01/16 15:54 Medical attending: Patient was seen and examined by me, agrees the above note by biomedical service engineer. The patient had his trach removed successfully yesterday. He's doing very well today he is able to somewhat move his right arm as well very minimal flexion and extension and this is a positive change from before her family members were present as well. Per my discussion with caseworkers were try to arrange for a telephone conference with the patient's son sometime tomorrow other than this the situation remains the same he still on IV antibiotics right now for UTI Thank you very much, Johny Saldana
[2016-12-02] MEDS: Albuterol 0.083% Inhal Sol (2.5 mg/3 mL) UD INH SCH ×4 (01:03→20:12)
[2016-12-02] MEDS: Acetylcysteine 20% Inhal Soln (4ml) INH SCH ×4 (01:03→20:12)
[2016-12-02] MEDS: Ciprofloxacin 400mg/200ml D5W 200 ML IVPB SCH ×2 (04:28→17:00)
--- NOTE | 2016-12-02 07:42 | CP.PCM.PN ---
Subjective - Date & Time of Evaluation Date of Evaluation: 12/02/16 Time of Evaluation: 07:41 - Subjective Subjective: Patient seen and examined at bedside. Patient denies complaints including chest pain, shortness of breath, abdominal pain, nausea, and vomiting. He is able to follow commands and demonstrates full strength of his left side. Weakness to right side noted. Objective - Vital Signs/Intake and Output Vital Signs (last 24 hours): Temp Pulse Resp BP Pulse Ox 98.5 F 97 H 20 116/77 98 12/01/16 23:39 12/01/16 23:39 12/01/16 23:39 12/01/16 23:39 12/01/16 23:39 Intake and Output: 12/02/16 12/02/16 06:59 18:59 Intake Total 1810 Output Total 800 Balance 1010 - Medications Medications: Current Medications Acetaminophen (Tylenol 325mg Tab) 650 mg PO Q6 PRN PRN Reason: Fever >100.4 F Last Admin: 11/29/16 13:19 Dose: 650 mg Acetylcysteine (Acetylcysteine 20%) 4 ml INH Q6H OMAR Last Admin: 12/02/16 01:03 Dose: 4 ml Albuterol Sulfate (Albuterol 0.083% Inhal Kim (2.5 Mg/3 Ml) Ud) 2.5 mg INH RQ6 OMAR Last Admin: 12/02/16 01:03 Dose: 2.5 mg Amlodipine Besylate (Norvasc) 5 mg PO DAILY OMAR Last Admin: 12/01/16 10:31 Dose: 5 mg Aspirin (Aspirin Chewable) 81 mg GT DAILY [facility] Last Admin: 12/01/16 10:31 Dose: 81 mg Ciprofloxacin (Cipro 400mg/200ml Dsw) 200 mls @ 133 mls/hr IVPB Q12H OMAR Last Admin: 12/02/16 04:28 Dose: 133 mls/hr Pantoprazole Sodium (Protonix Susp) 40 mg PO DAILY [facility] Last Admin: 12/01/16 10:31 Dose: 40 mg Rosuvastatin Calcium (Crestor) 5 mg GT HS OMAR Last Admin: 12/01/16 21:39 Dose: 5 mg Saccharomyces Boulardii (Florastor) 250 mg PO BID OMAR Last Admin: 12/01/16 18:00 Dose: 250 mg - Labs Labs: 11/30/16 07:19 11/30/16 07:19 PT 12.9 SECONDS (9.7-12.2) H 11/15/16 13:58 INR 1.2 11/15/16 13:58 APTT 39 SECONDS (21-34) H 11/15/16 13:58 - Constitutional Appears: Non-toxic, No Acute Distress - Head Exam Head Exam: ATRAUMATIC, NORMAL INSPECTION, NORMOCEPHALIC - Eye Exam Eye Exam: EOMI, Normal appearance, PERRL - ENT Exam ENT Exam: Mucous Membranes Moist - Respiratory Exam Respiratory Exam: Clear to Ausculation Bilateral, NORMAL BREATHING PATTERN. absent: Rales, Rhonchi, Wheezes - Cardiovascular Exam Cardiovascular Exam: +S1, +S2. absent: Tachycardia - GI/Abdominal Exam GI & Abdominal Exam: Soft, Normal Bowel Sounds. 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 12/01: Increased ROM of RUE 11/30: Pt with increased ROM of RUE after rehab efforts of family 11/29: Trach collar with secretions, asked pulm to re-evaluate for either weaning or valve 11/28: Trach collar in place with secretions- cleaned up, respiratory informed that pt needs suctioning 11/25: Trach care being provided by nursing, secretions noted, trach collar in place 11/24: Trach collar with copious secretions, trach care as per nursing 11/23: Stable, trach collar care as per nursing, continues with copious secretions 11/22: Trach collar in place, no secretions audible this morning, cont ASA daily 11/21: Trach collar in place, secretions audible- nursing notified; ASA 81 mg daily started as per neuro 11/19: Minimal secretions at trach, stable 11/18: Trach collar in place, stable 6: On trach collar, stable, lots of secretions 45: Stable on trach collar, no changes 11/15: Stable, no changes, trach collar in place 11/14: trach collar in place 42: Pt still with secretions, respiratory informed and will address 11/11: Secretions continued, started duonebs and mucomyst, informed nursing to do trach care and suctioning 11/10: Pt with audible secretions on trach collar- nursing informed, OGT in place 11/09: Pt resting comfortably in bed, trach to trach collar- tolerating w/some secretions as per respiratory, OGT In place 11/08: Resting comfortably, trach in place, OGT in place, does not 11/07: Resting comfortably, trach in place 11/06: Trach in place, resting comfortably. Follows simple commands to protrude tongue and move L arm 11/05: did not follow simple commands 11/04: Continues to follows simple commands in [place] Neurology consult - Dr. Simpson advise to schedule trach and PEG. Hold antiplatelets for 4-6 weeks and maintain blood pressure above 100 systolic. Sedation as needed 10/24 CT Head: little interval change in the size of left thalamic hemorrhage 2.4x2.9 cm with intraventricular extension of hemorrhage and mild obstructive hydrocephalus. 2 mm midline shift from left to right with no evidence of herniation. Near complete resolution of hemorrhage within 4th ventricle. 10/19 CT Head: little interval change in the known 2.0 x 2.7 acute hematoma in left thalamus with intra ventricular extension of hemorrhage. Interval mild worsening of obstructive hydrocephalus. 10/18 CT Head: Left basal ganglia acute hemorrhage, possibly hypertensive with associated intraventricular hemorrhage and mass effect upon the left lateral aspect of the 3rd ventricle with the tip shift of the 3rd ventricle towards the right side. No generalized midline shift. Air-fluid level in sphenoid sinus common nonspecific. Please correlate for concern regarding acute sinusitis. Mild involutional changes. GCS - 8T (E4 VT M4) CHITINA II 10.0, 12% estimated non-operative mortality 11/03- CT brain w/o cont for re-evaluation of bleed w/findings of Interval decrease in size and density left basal ganglia hematoma however well- circumscribed peripheral rim of low-attenuation edema about the hematoma likely represent some combination of brain edema as well as of brain necrosis. Intraventricular hemorrhage has diminished. Ventricles have also decreased in size though the temporal horns and atria remain prominent compared to the compressed remaining ventricular system. There is persistent compression of the 3rd and left lateral ventricle Chronic white matter and basal nuclei ischemic changes. December 07- reassess pt need for anticoagulation with neurology HTN: 12/01: BP 137/78- cont Norvasc 11/30: 111/72- well controlled on Norvasc, cont 11/29: 120/70- Cont Norvasc 11/28: BP 108/68- Cont Norvasc 11/25: BP 106/71- cont Norvasc 11/24: BP WNL- cont Norvasc 11/23: 126/78m cont Norvasc 11/22: BP 118/78, cont Norvasc/monitor 11/21: BP 128/89, cont Norvasc 11/19: BP stable, c/w current management 11/18: BP 145/89; Cont Norvasc 11/17: 150/89; cont Norvasc 11/16: BP 138/88,- cont Norvasc 11/15: BP 142/83, cont Norvasc/monitor VS 11/14:BP 146/95, cont Norvasc 11/12: BP controlled 11/11: BP 134/91, started Norvasc 5mg Daily 11/10: BP 135/90, will d/c IVF 11/09: BP 169/94- same as previous 11/08: BP 148/95, slight elevated, but mostly WNL- continue to hold Hydralazine 11/06: BP elevated 161/99; continue to monitor 11/05: BP WNL Amlodipine 10 mg POQD Hydralazine 25 mg PO BID - currently being held- BP WNL Losartan 100 mg POQD Labetalol 200 mg PO Q12H Respiratory failure - resolved 12/01: Trachestomy decannulated, pt tolerating Room air, tracheostomy site with dressing in place 11/30: Pulm recs- cont albuterol, ABx, decannulated- pO2 after procedure 99% on 3L, cont current mgmt 11/29: Awaiting pulm recs regarding weaning vs. valve for Trach collar 11/28: Pulm re-consulted for recs regarding weaning pt off trach collar 11/25: Pulm following, trach collar in place, mucus secretions noted, being cleaned up by nursing 11/24: Trach collar with secretions, non bloody, pulm following 11/23: Trach collar in place, pt tolerating, pulm following 11/22: TC in place, care as per respiratory, nursing, pulm following 11/21: Trach collar at 30%FiO2, pulm following, trach care as per respiratory and nursing 11/20: no changes, pul following 11/18: Trach collar at 30% FiO2, pulm following 11/17: Pulm following, pt on 30%FiO2 via trach collar- stable 11/16: Pulm following - pt on T tube for PEG 11/15: Pulm following- cont trach collar, pulm toilet 11/14: Still tolerating trach collar off vent, pulm following 11/13: Off of vent, tolerating well. 11/11: Pulm recs- Continue weaning with trials off vent, continue nebulizer treatments 11/10: On trach collar, pulm consulted for potential weaning, mucomyst ordered for secretions 11/08: Trial pt on trach collar w/o mech vent Pulm consulted for trach weaning protocol- Leo 11/08: Trial pt on trach collar w/o mech vent 11/07: Trach collar w/CPAP 11/06: Trach in place. On mech vent s/p tracheostomy Trach tube care CPAP ABG: -10/29 pH 7.46, CO 35, O2 90, HCO3 26.0 -10/28 pH 7.46, CO2 35, O2 73, HCO3 25.9 -16 pH 7.49, CO2 33, O2 74, HCO3 26.5 -15 pH 7.5, CO2 32, O2 91, HCO3 26.6 -13 pH 7.47, CO2 35, O2 119, HCO3 26.5 -12 pH 7.47, CO2 33, O2 66, HCO3 25.5 -11 pH 7.52, CO2 33, O2 57, HCO3 28.1 -10 pH 7.48, CO2 38, O2 79, HCO3 28.5 -9 pH 7.46, CO2 37, O2 187 HCO3 26.9 -8 pH 7.46, CO2 38, O2 214, HCO3 27.4 Imaging 11/08 CXR-Tracheostomy tube in place. Other lines and tubes in stable position. Mild patchy increased markings in the right infrahilar region. Biapical pleural thickening. 11/02/CXR - repeat CXR for replacement of OGT w/Support lines tubes - normally positioned No interval pathology noted 11/02 CXR - Interval improvement in the right lower lung since the previous study. Appropriate position of the right-sided PICC line with the tip is likely at the SVC right atrium junction 11/01 CXR - The in situ tracheostomy tube and NG tube positions are as before. Mild interval prominence of the right infrahilar bronchovascular markings either due to technique or subtle interval patchy infiltrate. Clinical follow- up recommended 10/31 CXR -In situ tracheostomy tube remains in good position. NGT w/tip overlying LUQ of the abdomen unchanged. Continued improvement right lung base. 10/28 CXR No focal airspace opacity 10/27 CXR No active disease 10/26 CXR - Mild venous congestion. Right hilar prominence 10/24 CXR Mild venous congestion. Mild right infrahilar prominence 10/23 CXR - Mild venous congestion. right hilar prominence. Biapical pleural thickening upper lobe granulomatous changes. lines and tubes in stable position. 10/22 CXR - Worsening consolidative changes to right mid to lower lung zone. lines and tubes in stable position. 10/20 CXR - Distal tip of an endotracheal tube terminates approximately 4.6 cm above the brisa. Left IJ approach Central venous catheter terminates at expected location of the left innominate vein. Nasogastric tube extends to expected location of the stomach 10/19 CXR New nasogastric tube extends to distal esophagus, above the diaphragm. Repositioning is advised. ET tube unchanged. No infiltrate. 10/18 CXR ET tube proximal to brisa, no acute pulmonary pathology official read pending Head of bed to 30* Keep O2 Sat >92% Dysphagia 12/01: PEG tube in place, ordered Prostat for additional protein 11/30: PEG tube in place, no residuals, tolerating tube feeds, will cont 11/29: PEG tube in place, no residuals, tolerating tube feeds- cont 11/28: PEG tube in place 11/25: PEG in place, residuals of 5cc/night per nursing 11/24: PEG tube in place, no residuals as per nursing, tolerating 60cc/hr tube feeds 11/23: Dietary recs for goal of 60cc/hr tube feeds, pt tolerating new goal, no residuals. PEG tube in place. 11/22: No residuals, dietary reconsulted for recs 11/21: Pt at goal of 50cc/hr tube feeds, PEG tube in place, no drainage noted 11/19: tolerating feedings 11/18: Tube feeds to 30cc today, keep free water flushes 11/17: PEG tube placed, tube feeds to start at noon, Dietary recs- Isosource 1.5, goal rate 50ml; Free water flushes 300cc Q8H 11/16: PEG tube today, tube feeds held 11/15: PEG tube in AM per GI, told Tube feeds after MN- NPO and nursing order in 11/14: No residuals overnight, ok to increase rate to 30cc/hr, GI re-consulted for PEG tube placement 11/11: Pt w/10cc residuals- kept at rate of 20cc/hr, will consider increasing by 10cc tomorrow if no residuals 11/10: Tube feeds stable 11/09: Tube feeds at 30cc/hr, no reported residuals. Advance by 10cc per day until goal of 50cc. 11/08- OGT placed last night, position verified- ok to use OGT for tube feeds 11/07: NPO- no access to stomach 11/05: OGT removed due to possible contribution to fever/sepsis. Feeding tube via oropharynx replaced 11/02 after pt removed position verified by CXR Feeding tube via oropharynx replaced 11/01 Position verified by CXR NGT was advanced 10/20 - d/c'd Consulted GI- Dr. Renteria- PEG tube placement when not having fevers/ leukocytosis Anemia- stable 12/01: No labs today 11/30: H/H 10.3/32 11/24-: No labs today 11/23: H/H 10.8/33.3 11/22: No labs today 11/21: Labs from 11/20: H/H 11/34.2- stable 11/18: No labs 11/17: H/H 11.9/36.5 11/16: H/H 12.2/38.1; PT 12.9, INR 1.2, PTT 39 11/15: H/H- 11.4/35.5, FU PT/INR/PTT 11/14: H/H - 11.3/35.2 11/11: H/H- 11.1/34.8 11/10: H/H- 11.5/36.1 11/09: H/H- 12.2/39.3 11/08: H/H- 10.4/33.5 11/07: H/H- 11.1/35.8 11/06: f/u H&H, monitor 11/05-11/06: H&H low, stable, continue to monitor H&H: 12.5/40.2- stable Intracranial bleed No coagulopathy Contraindication for anticoagulation Monitor Sepsis- resolved 11/30-: Cont Cipro as per ID for UTI 11/29: Repeat urine cxr grew multiple species, prior urine cx pos for pseudomonas - per ID- d/c Diflucan, start Cipro 400mg Q12H 11/28: Will repeat Urine Cx tomorrow, continue Diflucan 11/25: Cont Diflucan as per ID, FU repeat Urine cx ordered today 11/24: Cont diflucan 11/23: urine cx pos for yeast again. ID informed, told to continue Diflucan. 11/22: FU urine cx- if negative, will d/c Diflucan. Pt off Merrem and vanc. 11/21: Per ID- ok to de-escalate Antibiotics- Vanc discontinued last week, Merrem discontinued today, will continue Diflucan until repeat Urine cx resulted - [place] catheter changed on 11/18 11/19: no changes, afebrile 11/18: Afebrile over last 24H, no labs today, per ID- de-escalate Abx- do not renew Vanc, will cont merrem over the weekend, then d/c on 11/21. Change the [place] catheter if urine cx still positive for yeast. 11/17: Afebrile over last 24H, no leukocytosis- stable, no changes 11/16: Afebrile over last 24H, no leukocytosis- stable, no changes 11/15: Afebrile over last 24H, no leukocytosis- stable FU Vanc trough at 1pm 11/15 11/14: Afebrile over last 24H, no leukocytosis 11/13: Afebrile, labs stable 11/12: Afebrile overnight, f/u am labs 11/11: Afebrile over last 24H, WBC down trending, now 12.3 from 12.6, per ID: resume vancomcyin; trough 10-15; and monitor wbc count FU sputum cxr- talked to lab- results will be available on 11/12- so far only normal kalin growing FU vanc trough on 11/12 before 3rd dose 11/10: Afebrile over last 24H, WBC down trending, no w 12.6 from 14.1, Blood cx neg x 4 D, repeat urine cxr pos for yeast 11/09: Afebrile over last 24H, WBC increased from 11.9 to 14.1; Blood/urine/ sputum cxr sent Vanc trough 8.4 Urine cxr pos for yeast Diflucan 200mg Q24H ordered ID consulted for adjustement of antibiotics/antifungals- awaiting recs 11/08: Afebrile over last 24H, WBC 11.9, Bands 3 11/07: Afebrile over last 24H, WBC 16.3, Bands 6 Trach asp pos for Gram neg rods Blood cxr neg x 48H 11/06: Continue to monitor WBC 11/05: Leukocytosis 21.8 from 19.4, 16.7 - trending up 11/05: Vanc trough - 5.1 Afebrile over last 24H -Started Vanco 1gm Q24H vanco through 11/02 - 5.1 11/01- apr work up sent: blood cxr, urine cxr, CXR, C diff stool Blood cxr neg x 48H urine cxr neg Bandemia 5 10/31- Trach asp cx - normal kalin 10/31 - Urine ([place]) cxr neg 10/25 Sputum cx: Serratia marcescens and Enterobactor aerogenes 10/21 Sputum cx: Klebsiella pneumoniae Hold change of antibiotics. Fully aware of the low grade temperature, and increase in WBCs. Patient is hemodynamically stable. IV Cefepime 1 gram Q8H Acetaminophen 650 mg Q6 PRN for fever ID following- Kathy- continue Merrem and Vanco due to aspiration and pos Enterobacter Aerogenes Per Micro- Enterobacter aerogenes sensitive to merrem cont merrem Per ID: increase vanc to 1gm Q12H, FU vanc peak and trough on 3rd dose, cont diflucan Vanc trough 13.8- Vanco held, no peak done due to high trough Muscular deconditioning due to being bed bound Cont PT/OT Pt and family member at bedside instructed on self-rehab exercises Monitor tracheostomy site for drainage, erythema, hematoma, signs of infection. Prophylaxis: GI - Protonix 40 mg IVP daily DVT - contraindicated 09/15 to intracranial bleed WIll re-asses VTE needs on 12/07 Dispo: Con current mgmt ID following Pulm following Cont condom catheter Cont general body care SW eval for possible LTAC after PEG placement PEG tube with tube feeding in place @ goal of 60 cc/hour per dietary Labs Q7days PT/OT Pt in process of being added to 's insurance SW informed that pt's family is unable to afford/provide care for pt at home Pt tolerating decannulation of tracheostomy Prostat with tube feeds
[2016-12-02] MEDS: Pantoprazole 40 mg Susp UD PO SCH (09:31)
[2016-12-02] MEDS: Saccharomyces Boulardi 250 mg Cap PO SCH ×2 (09:31→17:53)
--- NOTE | 2016-12-03 01:27 | CP.PCM.PN ---
<Marybel Taylor - Last Filed: 12/03/16 01:24> Subjective - Date & Time of Evaluation Date of Evaluation: 12/03/16 Time of Evaluation: 01:24 - Subjective Subjective: Internal medicine progress note for Hospitalist service- Marybel Taylor, PGY-1 Pt S & E at bedside Pt is awake, alert, able to move Right side of body a little, able to shift in bed. Pt follows simple commands, is interactive and smiling. No problems as per nursing. Objective - Vital Signs/Intake and Output Vital Signs (last 24 hours): Temp Pulse Resp BP Pulse Ox 97.6 F 91 H 18 112/74 97 12/03/16 00:00 12/03/16 00:00 12/03/16 00:00 12/03/16 00:00 12/03/16 00:00 Intake and Output: 12/02/16 12/03/16 18:59 06:59 Intake Total 680 930 Output Total 750 800 Balance -70 130 - Medications Medications: Current Medications Acetaminophen (Tylenol 325mg Tab) 650 mg PO Q6 PRN PRN Reason: Fever >100.4 F Last Admin: 11/29/16 13:19 Dose: 650 mg Acetylcysteine (Acetylcysteine 20%) 4 ml INH Q6H [facility] Last Admin: 12/02/16 20:12 Dose: 4 ml Albuterol Sulfate (Albuterol 0.083% Inhal Kim (2.5 Mg/3 Ml) Ud) 2.5 mg INH RQ6 O[facility] Last Admin: 12/02/16 20:12 Dose: 2.5 mg Amlodipine Besylate (Norvasc) 5 mg PO DAILY [facility] Last Admin: 12/02/16 09:32 Dose: 5 mg Aspirin (Aspirin Chewable) 81 mg GT DAILY [facility] Last Admin: 12/02/16 09:31 Dose: 81 mg Ciprofloxacin (Cipro 400mg/200ml Dsw) 200 mls @ 133 mls/hr IVPB Q12H OMAR Last Admin: 12/02/16 17:00 Dose: 133 mls/hr Pantoprazole Sodium (Protonix Susp) 40 mg PO DAILY [facility] Last Admin: 12/02/16 09:31 Dose: 40 mg Rosuvastatin Calcium (Crestor) 5 mg GT HS [facility] Last Admin: 12/02/16 21:59 Dose: 5 mg Saccharomyces Boulardii (Florastor) 250 mg PO BID [facility] Last Admin: 12/02/16 17:53 Dose: 250 mg - Labs Labs: 11/30/16 07:19 11/30/16 07:19 PT 12.9 SECONDS (9.7-12.2) H 11/15/16 13:58 INR 1.2 11/15/16 13:58 APTT 39 SECONDS (21-34) H 11/15/16 13:58 - Constitutional Appears: Non-toxic, No Acute Distress, Cachectic - Head Exam Head Exam: ATRAUMATIC, NORMAL INSPECTION, NORMOCEPHALIC - Eye Exam Eye Exam: EOMI, Normal appearance, PERRL Pupil Exam: NORMAL ACCOMODATION, PERRL - ENT Exam ENT Exam: Mucous Membranes Moist, Normal Exam - Neck Exam Additional comments: neck with dressing in place-C/D/I - Respiratory Exam Respiratory Exam: Clear to Ausculation Bilateral, NORMAL BREATHING PATTERN - Cardiovascular Exam Cardiovascular Exam: REGULAR RHYTHM, +S1, +S2. absent: Murmur - GI/Abdominal Exam GI & Abdominal Exam: Soft, Normal Bowel Sounds. 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 12/03: Pt able to lift RUE a little, RLE a little 12/01: Increased ROM of RUE 11/30: Pt with increased ROM of RUE after rehab efforts of family 11/29: Trach collar with secretions, asked pulm to re-evaluate for either weaning or valve 11/28: Trach collar in place with secretions- cleaned up, respiratory informed that pt needs suctioning 11/25: Trach care being provided by nursing, secretions noted, trach collar in place 11/24: Trach collar with copious secretions, trach care as per nursing 11/23: Stable, trach collar care as per nursing, continues with copious secretions 11/22: Trach collar in place, no secretions audible this morning, cont ASA daily 11/21: Trach collar in place, secretions audible- nursing notified; ASA 81 mg daily started as per neuro 11/19: Minimal secretions at trach, stable 11/18: Trach collar in place, stable 11/17: On trach collar, stable, lots of secretions 11/16: Stable on trach collar, no changes 11/15: Stable, no changes, trach collar in place 11/14: trach collar in place 11/13: Pt still with secretions, respiratory informed and will address 11/11: Secretions continued, started duonebs and mucomyst, informed nursing to do trach care and suctioning 11/10: Pt with audible secretions on trach collar- nursing informed, OGT in place 11/09: Pt resting comfortably in bed, trach to trach collar- tolerating w/some secretions as per respiratory, OGT In place 11/08: Resting comfortably, trach in place, OGT in place, does not 11/07: Resting comfortably, trach in place 11/06: Trach in place, resting comfortably. Follows simple commands to protrude tongue and move L arm 11/05: did not follow simple commands 11/04: Continues to follows simple commands in [place] Neurology consult - Dr. Simpson advise to schedule trach and PEG. Hold antiplatelets for 4-6 weeks and maintain blood pressure above 100 systolic. Sedation as needed 10/24 CT Head: little interval change in the size of left thalamic hemorrhage 2.4x2.9 cm with intraventricular extension of hemorrhage and mild obstructive hydrocephalus. 2 mm midline shift from left to right with no evidence of herniation. Near complete resolution of hemorrhage within 4th ventricle. 10/19 CT Head: little interval change in the known 2.0 x 2.7 acute hematoma in left thalamus with intra ventricular extension of hemorrhage. Interval mild worsening of obstructive hydrocephalus. 10/18 CT Head: Left basal ganglia acute hemorrhage, possibly hypertensive with associated intraventricular hemorrhage and mass effect upon the left lateral aspect of the 3rd ventricle with the tip shift of the 3rd ventricle towards the right side. No generalized midline shift. Air-fluid level in sphenoid sinus common nonspecific. Please correlate for concern regarding acute sinusitis. Mild involutional changes. GCS - 8T (E4 VT M4) [place] II 10.0, 12% estimated non-operative mortality 11/03- CT brain w/o cont for re-evaluation of bleed w/findings of Interval decrease in size and density left basal ganglia hematoma however well- circumscribed peripheral rim of low-attenuation edema about the hematoma likely represent some combination of brain edema as well as of brain necrosis. Intraventricular hemorrhage has diminished. Ventricles have also decreased in size though the temporal horns and atria remain prominent compared to the compressed remaining ventricular system. There is persistent compression of the 3rd and left lateral ventricle Chronic white matter and basal nuclei ischemic changes. December 07- reassess pt need for anticoagulation with neurology HTN: 12/03: BP 112/74 - well controlled with Norvasc 12/01: BP 137/78- cont Norvasc 11/30: 111/72- well controlled on Norvasc, cont 11/29: 120/70- Cont Norvasc 11/28: BP 108/68- Cont Norvasc 11/25: BP 106/71- cont Norvasc 11/24: BP WNL- cont Norvasc 11/23: 126/78m cont Norvasc 11/22: BP 118/78, cont Norvasc/monitor 11/21: BP 128/89, cont Norvasc 11/19: BP stable, c/w current management 11/18: BP 145/89; Cont Norvasc 11/17: 150/89; cont Norvasc 11/16: BP 138/88,- cont Norvasc 11/15: BP 142/83, cont Norvasc/monitor VS 11/14:BP 146/95, cont Norvasc 11/12: BP controlled 11/11: BP 134/91, started Norvasc 5mg Daily 11/10: BP 135/90, will d/c IVF 11/09: BP 169/94- same as previous 11/08: BP 148/95, slight elevated, but mostly WNL- continue to hold Hydralazine 11/06: BP elevated 161/99; continue to monitor 11/05: BP WNL Amlodipine 10 mg POQD Hydralazine 25 mg PO BID - currently being held- BP WNL Losartan 100 mg POQD Labetalol 200 mg PO Q12H Respiratory failure - resolved 12/03: Pt doing well without trach on room air, tracheostomy site with dressing in place- C/D/I 12/01: Trachestomy decannulated, pt tolerating Room air, tracheostomy site with dressing in place 11/30: Pulm recs- cont albuterol, ABx, decannulated- pO2 after procedure 99% on 3L, cont current mgmt 11/29: Awaiting pulm recs regarding weaning vs. valve for Trach collar 11/28: Pulm re-consulted for recs regarding weaning pt off trach collar 11/25: Pulm following, trach collar in place, mucus secretions noted, being cleaned up by nursing 11/24: Trach collar with secretions, non bloody, pulm following 11/23: Trach collar in place, pt tolerating, pulm following 11/22: TC in place, care as per respiratory, nursing, pulm following 11/21: Trach collar at 30%FiO2, pulm following, trach care as per respiratory and nursing 11/20: no changes, pul following 11/18: Trach collar at 30% FiO2, pulm following 11/17: Pulm following, pt on 30%FiO2 via trach collar- stable 11/16: Pulm following - pt on T tube for PEG 11/15: Pulm following- cont trach collar, pulm toilet 11/14: Still tolerating trach collar off vent, pulm following 11/13: Off of vent, tolerating well. 11/11: Pulm recs- Continue weaning with trials off vent, continue nebulizer treatments 11/10: On trach collar, pulm consulted for potential weaning, mucomyst ordered for secretions 11/08: Trial pt on trach collar w/o mech vent Pulm consulted for trach weaning protocol- Leo 11/08: Trial pt on trach collar w/o mech vent 11/07: Trach collar w/CPAP 11/06: Trach in place. On mech vent s/p tracheostomy Trach tube care CPAP ABG: -10/29 pH 7.46, CO 35, O2 90, HCO3 26.0 -10/28 pH 7.46, CO2 35, O2 73, HCO3 25.9 -10/27 pH 7.49, CO2 33, O2 74, HCO3 26.5 -10/26 pH 7.5, CO2 32, O2 91, HCO3 26.6 -10/24 pH 7.47, CO2 35, O2 119, HCO3 26.5 -10/23 pH 7.47, CO2 33, O2 66, HCO3 25.5 -10/22 pH 7.52, CO2 33, O2 57, HCO3 28.1 -10/21 pH 7.48, CO2 38, O2 79, HCO3 28.5 -10/20 pH 7.46, CO2 37, O2 187 HCO3 26.9 -10/19 pH 7.46, CO2 38, O2 214, HCO3 27.4 Imaging 11/08 CXR-Tracheostomy tube in place. Other lines and tubes in stable position. Mild patchy increased markings in the right infrahilar region. Biapical pleural thickening. 11/02/CXR - repeat CXR for replacement of OGT w/Support lines tubes - normally positioned No interval pathology noted 11/02 CXR - Interval improvement in the right lower lung since the previous study. Appropriate position of the right-sided PICC line with the tip is likely at the SVC right atrium junction 11/01 CXR - The in situ tracheostomy tube and NG tube positions are as before. Mild interval prominence of the right infrahilar bronchovascular markings either due to technique or subtle interval patchy infiltrate. Clinical follow- up recommended 10/31 CXR -In situ tracheostomy tube remains in good position. NGT w/tip overlying LUQ of the abdomen unchanged. Continued improvement right lung base. 10/28 CXR No focal airspace opacity 10/27 CXR No active disease 10/26 CXR - Mild venous congestion. Right hilar prominence 10/24 CXR Mild venous congestion. Mild right infrahilar prominence 10/23 CXR - Mild venous congestion. right hilar prominence. Biapical pleural thickening upper lobe granulomatous changes. lines and tubes in stable position. 10/22 CXR - Worsening consolidative changes to right mid to lower lung zone. lines and tubes in stable position. 10/20 CXR - Distal tip of an endotracheal tube terminates approximately 4.6 cm above the brisa. Left IJ approach Central venous catheter terminates at expected location of the left innominate vein. Nasogastric tube extends to expected location of the stomach 10/19 CXR New nasogastric tube extends to distal esophagus, above the diaphragm. Repositioning is advised. ET tube unchanged. No infiltrate. 10/18 CXR ET tube proximal to brisa, no acute pulmonary pathology official read pending Head of bed to 30* Keep O2 Sat >92% Dysphagia 12/03: PEG tube in place, continue tube feeding with Protein supplementation 12/01: PEG tube in place, ordered Prostat for additional protein 11/30: PEG tube in place, no residuals, tolerating tube feeds, will cont 11/29: PEG tube in place, no residuals, tolerating tube feeds- cont 11/28: PEG tube in place 11/25: PEG in place, residuals of 5cc/night per nursing 11/24: PEG tube in place, no residuals as per nursing, tolerating 60cc/hr tube feeds 11/23: Dietary recs for goal of 60cc/hr tube feeds, pt tolerating new goal, no residuals. PEG tube in place. 11/22: No residuals, dietary reconsulted for recs 11/21: Pt at goal of 50cc/hr tube feeds, PEG tube in place, no drainage noted 11/19: tolerating feedings 11/18: Tube feeds to 30cc today, keep free water flushes 11/17: PEG tube placed, tube feeds to start at noon, Dietary recs- Isosource 1.5, goal rate 50ml; Free water flushes 300cc Q8H 11/16: PEG tube today, tube feeds held 11/15: PEG tube in AM per GI, told Tube feeds after MN- NPO and nursing order in 11/14: No residuals overnight, ok to increase rate to 30cc/hr, GI re-consulted for PEG tube placement 11/11: Pt w/10cc residuals- kept at rate of 20cc/hr, will consider increasing by 10cc tomorrow if no residuals 11/10: Tube feeds stable 11/09: Tube feeds at 30cc/hr, no reported residuals. Advance by 10cc per day until goal of 50cc. 11/08- OGT placed last night, position verified- ok to use OGT for tube feeds 11/07: NPO- no access to stomach 11/05: OGT removed due to possible contribution to fever/sepsis. Feeding tube via oropharynx replaced 11/02 after pt removed position verified by CXR Feeding tube via oropharynx replaced 11/01 Position verified by CXR NGT was advanced 10/20 - d/c'd Consulted GI- Dr. Renteria- PEG tube placement when not having fevers/ leukocytosis Anemia- stable 12/03: No labs today 12/01: No labs today 11/30: H/H 10.3/32 11/24-: No labs today 11/23: H/H 10.8/33.3 11/22: No labs today 11/21: Labs from 11/20: H/H 11/34.2- stable 11/18: No labs 11/17: H/H 11.9/36.5 11/16: H/H 12.2/38.1; PT 12.9, INR 1.2, PTT 39 11/15: H/H- 11.4/35.5, FU PT/INR/PTT 11/14: H/H - 11.3/35.2 11/11: H/H- 11.1/34.8 11/10: H/H- 11.5/36.1 11/09: H/H- 12.2/39.3 11/08: H/H- 10.4/33.5 11/07: H/H- 11.1/35.8 11/06: f/u H&H, monitor 11/05-11/06: H&H low, stable, continue to monitor H&H: 12.5/40.2- stable Intracranial bleed No coagulopathy Contraindication for anticoagulation Monitor Sepsis- resolved 11/30-: Cont Cipro as per ID for UTI 11/29: Repeat urine cxr grew multiple species, prior urine cx pos for pseudomonas - per ID- d/c Diflucan, start Cipro 400mg Q12H 11/28: Will repeat Urine Cx tomorrow, continue Diflucan 11/25: Cont Diflucan as per ID, FU repeat Urine cx ordered today 11/24: Cont diflucan 11/23: urine cx pos for yeast again. ID informed, told to continue Diflucan. 11/22: FU urine cx- if negative, will d/c Diflucan. Pt off Merrem and vanc. 11/21: Per ID- ok to de-escalate Antibiotics- Vanc discontinued last week, Merrem discontinued today, will continue Diflucan until repeat Urine cx resulted - [place] catheter changed on 11/18 11/19: no changes, afebrile 11/18: Afebrile over last 24H, no labs today, per ID- de-escalate Abx- do not renew Vanc, will cont merrem over the weekend, then d/c on 11/21. Change the [place] catheter if urine cx still positive for yeast. 11/17: Afebrile over last 24H, no leukocytosis- stable, no changes 11/16: Afebrile over last 24H, no leukocytosis- stable, no changes 11/15: Afebrile over last 24H, no leukocytosis- stable FU Vanc trough at 1pm 11/15 11/14: Afebrile over last 24H, no leukocytosis 11/13: Afebrile, labs stable 11/12: Afebrile overnight, f/u am labs 11/11: Afebrile over last 24H, WBC down trending, now 12.3 from 12.6, per ID: resume vancomcyin; trough 10-15; and monitor wbc count FU sputum cxr- talked to lab- results will be available on 11/12- so far only normal kalin growing FU vanc trough on 11/12 before 3rd dose 11/10: Afebrile over last 24H, WBC down trending, no w 12.6 from 14.1, Blood cx neg x 4 D, repeat urine cxr pos for yeast 11/09: Afebrile over last 24H, WBC increased from 11.9 to 14.1; Blood/urine/ sputum cxr sent Vanc trough 8.4 Urine cxr pos for yeast Diflucan 200mg Q24H ordered ID consulted for adjustement of antibiotics/antifungals- awaiting recs 11/08: Afebrile over last 24H, WBC 11.9, Bands 3 11/07: Afebrile over last 24H, WBC 16.3, Bands 6 Trach asp pos for Gram neg rods Blood cxr neg x 48H 11/06: Continue to monitor WBC 11/05: Leukocytosis 21.8 from 19.4, 16.7 - trending up 11/05: Vanc trough - 5.1 Afebrile over last 24H -Started Vanco 1gm Q24H vanco through 11/02 - 5.1 11/01- apr work up sent: blood cxr, urine cxr, CXR, C diff stool Blood cxr neg x 48H urine cxr neg Bandemia 5 10/31- Trach asp cx - normal kalin 10/31 - Urine ([place]) cxr neg 10/25 Sputum cx: Serratia marcescens and Enterobactor aerogenes 10/21 Sputum cx: Klebsiella pneumoniae Hold change of antibiotics. Fully aware of the low grade temperature, and increase in WBCs. Patient is hemodynamically stable. IV Cefepime 1 gram Q8H Acetaminophen 650 mg Q6 PRN for fever ID following- Kathy- continue Merrem and Vanco due to aspiration and pos Enterobacter Aerogenes Per Micro- Enterobacter aerogenes sensitive to merrem cont merrem Per ID: increase vanc to 1gm Q12H, FU vanc peak and trough on 3rd dose, cont diflucan Vanc trough 13.8- Vanco held, no peak done due to high trough Muscular deconditioning due to being bed bound Cont PT/OT Pt and family member at bedside instructed on self-rehab exercises Monitor tracheostomy site for drainage, erythema, hematoma, signs of infection. Prophylaxis: GI - Protonix 40 mg IVP daily DVT - contraindicated 09/15 to intracranial bleed WIll re-asses VTE needs on 12/07 Dispo: Con current mgmt ID following Pulm following Cont condom catheter Cont general body care SW eval for possible LTAC after PEG placement PEG tube with tube feeding in place @ goal of 60 cc/hour per dietary Labs Q7days PT/OT Pt in process of being added to 's insurance SW informed that pt's family is unable to afford/provide care for pt at home Pt tolerating decannulation of tracheostomy Prostat with tube feeds <Johny Saldana H - Last Filed: 12/03/16 10:42> Objective - Vital Signs/Intake and Output Vital Signs (last 24 hours): Temp Pulse Resp BP Pulse Ox 97.9 F 100 H 20 114/72 100 12/03/16 08:00 12/03/16 08:00 12/03/16 08:00 12/03/16 08:00 12/03/16 08:00 Intake and Output: 12/03/16 12/03/16 06:59 18:59 Intake Total 1810 Output Total 1300 Balance 510 - Medications Medications: Current Medications Acetaminophen (Tylenol 325mg Tab) 650 mg PO Q6 PRN PRN Reason: Fever >100.4 F Last Admin: 11/29/16 13:19 Dose: 650 mg Acetylcysteine (Acetylcysteine 20%) 4 ml INH Q6H [facility] Last Admin: 12/03/16 07:35 Dose: 4 ml Albuterol Sulfate (Albuterol 0.083% Inhal Kim (2.5 Mg/3 Ml) Ud) 2.5 mg INH RQ6 [facility] Last Admin: 12/03/16 07:35 Dose: 2.5 mg Amlodipine Besylate (Norvasc) 5 mg PO DAILY [facility] Last Admin: 12/03/16 10:29 Dose: 5 mg Aspirin (Aspirin Chewable) 81 mg GT DAILY [facility] Last Admin: 12/03/16 10:29 Dose: 81 mg Ciprofloxacin (Cipro 400mg/200ml Dsw) 200 mls @ 133 mls/hr IVPB Q12H [facility] Last Admin: 12/03/16 04:26 Dose: 133 mls/hr Pantoprazole Sodium (Protonix Susp) 40 mg PO DAILY [facility] Last Admin: 12/03/16 10:29 Dose: 40 mg Rosuvastatin Calcium (Crestor) 5 mg GT HS [facility] Last Admin: 12/02/16 21:59 Dose: 5 mg Saccharomyces Boulardii (Florastor) 250 mg PO BID [facility] Last Admin: 12/03/16 10:29 Dose: 250 mg - Labs Labs: 11/30/16 07:19 11/30/16 07:19 PT 12.9 SECONDS (9.7-12.2) H 11/15/16 13:58 INR 1.2 11/15/16 13:58 APTT 39 SECONDS (21-34) H 11/15/16 13:58 Attending/Attestation - Attestation I have personally seen and examined this patient.: Yes I have fully participated in the care of the patient.: Yes I have reviewed all pertinent clinical information, including history, physical exam and plan: Yes Notes (Text): 12/03/16 10:40 Medical Attending: Patient was seen and examined by me. Agree with the above note by the resident. The patient's son was present at bedside. He explained that as of now his family would not be able to care for the patient at home. He explained they live on the second floor and there is often nobody present at home. Also the cost of the tube feeds and visiting nurse would be too high for them to afford There maybe another meeting today with upper caser/social worker palliative care. thank you Johny Saldana
[2016-12-03] MEDS: Albuterol 0.083% Inhal Sol (2.5 mg/3 mL) UD INH SCH ×4 (01:53→19:09)
[2016-12-03] MEDS: Acetylcysteine 20% Inhal Soln (4ml) INH SCH ×4 (01:53→19:09)
[2016-12-03] MEDS: Ciprofloxacin 400mg/200ml D5W 200 ML IVPB SCH ×2 (04:26→17:56)
[2016-12-03] MEDS: Pantoprazole 40 mg Susp UD PO SCH (10:29)
[2016-12-03] MEDS: Saccharomyces Boulardi 250 mg Cap PO SCH ×2 (10:29→17:56)
--- NOTE | 2016-12-04 00:41 | CP.PCM.PN ---
<Marybel Taylor - Last Filed: 12/04/16 00:38> Subjective - Date & Time of Evaluation Date of Evaluation: 12/04/16 Time of Evaluation: 00:38 - Subjective Subjective: Internal medicine progress note for Hospitalist service- Marybel Taylor, PGY-1 Pt S & E at bedside Pt asleep, arousable to verbal stimuli - able to shake head to questions in kosovan. NAD. No reports per nursing. Objective - Vital Signs/Intake and Output Vital Signs (last 24 hours): Temp Pulse Resp BP Pulse Ox 98.4 F 91 H 20 123/80 97 12/03/16 23:31 12/03/16 23:31 12/03/16 23:31 12/03/16 23:31 12/03/16 23:31 Intake and Output: 12/03/16 12/04/16 18:59 06:59 Intake Total 680 850 Output Total 500 Balance 180 850 - Medications Medications: Current Medications Acetaminophen (Tylenol 325mg Tab) 650 mg PO Q6 PRN PRN Reason: Fever >100.4 F Last Admin: 11/29/16 13:19 Dose: 650 mg Acetylcysteine (Acetylcysteine 20%) 4 ml INH Q6H OMAR Last Admin: 12/03/16 19:09 Dose: 4 ml Albuterol Sulfate (Albuterol 0.083% Inhal Kim (2.5 Mg/3 Ml) Ud) 2.5 mg INH RQ6 OMAR Last Admin: 12/03/16 19:09 Dose: 2.5 mg Amlodipine Besylate (Norvasc) 5 mg PO DAILY [facility] Last Admin: 12/03/16 10:29 Dose: 5 mg Aspirin (Aspirin Chewable) 81 mg GT DAILY [facility] Last Admin: 12/03/16 10:29 Dose: 81 mg Ciprofloxacin (Cipro 400mg/200ml Dsw) 200 mls @ 133 mls/hr IVPB Q12H OMAR Last Admin: 12/03/16 17:56 Dose: 133 mls/hr Rosuvastatin Calcium (Crestor) 5 mg GT HS [facility] Last Admin: 12/03/16 21:28 Dose: 5 mg Saccharomyces Boulardii (Florastor) 250 mg PO BID OMAR Last Admin: 12/03/16 17:56 Dose: 250 mg - Labs Labs: 11/30/16 07:19 11/30/16 07:19 PT 12.9 SECONDS (9.7-12.2) H 11/15/16 13:58 INR 1.2 11/15/16 13:58 APTT 39 SECONDS (21-34) H 11/15/16 13:58 - Constitutional Appears: Well, Non-toxic, No Acute Distress, Cachectic - Head Exam Head Exam: ATRAUMATIC, NORMAL INSPECTION, NORMOCEPHALIC - Eye Exam Eye Exam: EOMI, Normal appearance, PERRL Pupil Exam: NORMAL ACCOMODATION, PERRL - ENT Exam ENT Exam: Mucous Membranes Moist, Normal Exam - Neck Exam Neck Exam: absent: Full ROM (difficulty turning head to right), Normal Inspection (dressing in place over decannulated tracheostomy site- C/D/I) - Respiratory Exam Respiratory Exam: Clear to Ausculation Bilateral, NORMAL BREATHING PATTERN - Cardiovascular Exam Cardiovascular Exam: REGULAR RHYTHM, +S1, +S2. absent: Murmur - GI/Abdominal Exam GI & Abdominal Exam: Soft, Normal Bowel Sounds. absent: Tenderness Additional comments: PEG tube in place - Extremities Exam Extremities Exam: Normal Inspection. 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 12/04: Pt continues to be able to move Right sided extremities a little bit 12/03: Pt able to lift RUE a little, RLE a little 12/01: Increased ROM of RUE 11/30: Pt with increased ROM of RUE after rehab efforts of family 11/29: Trach collar with secretions, asked pulm to re-evaluate for either weaning or valve 11/28: Trach collar in place with secretions- cleaned up, respiratory informed that pt needs suctioning 11/25: Trach care being provided by nursing, secretions noted, trach collar in place 11/24: Trach collar with copious secretions, trach care as per nursing 11/23: Stable, trach collar care as per nursing, continues with copious secretions 11/22: Trach collar in place, no secretions audible this morning, cont ASA daily 11/21: Trach collar in place, secretions audible- nursing notified; ASA 81 mg daily started as per neuro 11/19: Minimal secretions at trach, stable 11/18: Trach collar in place, stable 11/17: On trach collar, stable, lots of secretions 11/16: Stable on trach collar, no changes 11/15: Stable, no changes, trach collar in place 11/14: trach collar in place 11/13: Pt still with secretions, respiratory informed and will address 11/11: Secretions continued, started duonebs and mucomyst, informed nursing to do trach care and suctioning 11/10: Pt with audible secretions on trach collar- nursing informed, OGT in place 11/09: Pt resting comfortably in bed, trach to trach collar- tolerating w/some secretions as per respiratory, OGT In place 11/08: Resting comfortably, trach in place, OGT in place, does not 11/07: Resting comfortably, trach in place 11/06: Trach in place, resting comfortably. Follows simple commands to protrude tongue and move L arm 11/05: did not follow simple commands 11/04: Continues to follows simple commands in [place] Neurology consult - Dr. Simpson advise to schedule trach and PEG. Hold antiplatelets for 4-6 weeks and maintain blood pressure above 100 systolic. Sedation as needed 10/24 CT Head: little interval change in the size of left thalamic hemorrhage 2.4x2.9 cm with intraventricular extension of hemorrhage and mild obstructive hydrocephalus. 2 mm midline shift from left to right with no evidence of herniation. Near complete resolution of hemorrhage within 4th ventricle. 10/19 CT Head: little interval change in the known 2.0 x 2.7 acute hematoma in left thalamus with intra ventricular extension of hemorrhage. Interval mild worsening of obstructive hydrocephalus. 10/18 CT Head: Left basal ganglia acute hemorrhage, possibly hypertensive with associated intraventricular hemorrhage and mass effect upon the left lateral aspect of the 3rd ventricle with the tip shift of the 3rd ventricle towards the right side. No generalized midline shift. Air-fluid level in sphenoid sinus common nonspecific. Please correlate for concern regarding acute sinusitis. Mild involutional changes. GCS - 8T (E4 VT M4) [place] II 10.0, 12% estimated non-operative mortality 11/03- CT brain w/o cont for re-evaluation of bleed w/findings of Interval decrease in size and density left basal ganglia hematoma however well- circumscribed peripheral rim of low-attenuation edema about the hematoma likely represent some combination of brain edema as well as of brain necrosis. Intraventricular hemorrhage has diminished. Ventricles have also decreased in size though the temporal horns and atria remain prominent compared to the compressed remaining ventricular system. There is persistent compression of the 3rd and left lateral ventricle Chronic white matter and basal nuclei ischemic changes. December 07- reassess pt need for anticoagulation with neurology HTN: 12/04: BP WNL 12/03: BP 112/74 - well controlled with Norvasc 12/01: BP 137/78- cont Norvasc 11/30: 111/72- well controlled on Norvasc, cont 11/29: 120/70- Cont Norvasc 11/28: BP 108/68- Cont Norvasc 11/25: BP 106/71- cont Norvasc 11/24: BP WNL- cont Norvasc 11/23: 126/78m cont Norvasc 11/22: BP 118/78, cont Norvasc/monitor 11/21: BP 128/89, cont Norvasc 11/19: BP stable, c/w current management 11/18: BP 145/89; Cont Norvasc 11/17: 150/89; cont Norvasc 11/16: BP 138/88,- cont Norvasc 11/15: BP 142/83, cont Norvasc/monitor VS 11/14:BP 146/95, cont Norvasc 11/12: BP controlled 11/11: BP 134/91, started Norvasc 5mg Daily 11/10: BP 135/90, will d/c IVF 11/09: BP 169/94- same as previous 11/08: BP 148/95, slight elevated, but mostly WNL- continue to hold Hydralazine 11/06: BP elevated 161/99; continue to monitor 11/05: BP WNL Amlodipine 10 mg POQD Hydralazine 25 mg PO BID - currently being held- BP WNL Losartan 100 mg POQD Labetalol 200 mg PO Q12H Respiratory failure - resolved 12/04: Pt tolerating RA- dressing over trach site C/D/I 12/03: Pt doing well without trach on room air, tracheostomy site with dressing in place- C/D/I 12/01: Trachestomy decannulated, pt tolerating Room air, tracheostomy site with dressing in place 11/30: Pulm recs- cont albuterol, ABx, decannulated- pO2 after procedure 99% on 3L, cont current mgmt 11/29: Awaiting pulm recs regarding weaning vs. valve for Trach collar 11/28: Pulm re-consulted for recs regarding weaning pt off trach collar 11/25: Pulm following, trach collar in place, mucus secretions noted, being cleaned up by nursing 11/24: Trach collar with secretions, non bloody, pulm following 11/23: Trach collar in place, pt tolerating, pulm following 11/22: TC in place, care as per respiratory, nursing, pulm following 11/21: Trach collar at 30%FiO2, pulm following, trach care as per respiratory and nursing 11/20: no changes, pul following 11/18: Trach collar at 30% FiO2, pulm following 11/17: Pulm following, pt on 30%FiO2 via trach collar- stable 11/16: Pulm following - pt on T tube for PEG 11/15: Pulm following- cont trach collar, pulm toilet 11/14: Still tolerating trach collar off vent, pulm following 11/13: Off of vent, tolerating well. 11/11: Pulm recs- Continue weaning with trials off vent, continue nebulizer treatments 11/10: On trach collar, pulm consulted for potential weaning, mucomyst ordered for secretions 11/08: Trial pt on trach collar w/o mech vent Pulm consulted for trach weaning protocol- Leo 11/08: Trial pt on trach collar w/o mech vent 11/07: Trach collar w/CPAP 11/06: Trach in place. On mech vent s/p tracheostomy Trach tube care CPAP ABG: -10/29 pH 7.46, CO 35, O2 90, HCO3 26.0 -10/28 pH 7.46, CO2 35, O2 73, HCO3 25.9 -10/27 pH 7.49, CO2 33, O2 74, HCO3 26.5 -10/26 pH 7.5, CO2 32, O2 91, HCO3 26.6 -10/24 pH 7.47, CO2 35, O2 119, HCO3 26.5 -10/23 pH 7.47, CO2 33, O2 66, HCO3 25.5 -10/22 pH 7.52, CO2 33, O2 57, HCO3 28.1 -10/21 pH 7.48, CO2 38, O2 79, HCO3 28.5 -10/20 pH 7.46, CO2 37, O2 187 HCO3 26.9 -10/19 pH 7.46, CO2 38, O2 214, HCO3 27.4 Imaging 11/08 CXR-Tracheostomy tube in place. Other lines and tubes in stable position. Mild patchy increased markings in the right infrahilar region. Biapical pleural thickening. 11/02/CXR - repeat CXR for replacement of OGT w/Support lines tubes - normally positioned No interval pathology noted 11/02 CXR - Interval improvement in the right lower lung since the previous study. Appropriate position of the right-sided PICC line with the tip is likely at the SVC right atrium junction 11/01 CXR - The in situ tracheostomy tube and NG tube positions are as before. Mild interval prominence of the right infrahilar bronchovascular markings either due to technique or subtle interval patchy infiltrate. Clinical follow- up recommended 10/31 CXR -In situ tracheostomy tube remains in good position. NGT w/tip overlying LUQ of the abdomen unchanged. Continued improvement right lung base. 10/28 CXR No focal airspace opacity 10/27 CXR No active disease 10/26 CXR - Mild venous congestion. Right hilar prominence 10/24 CXR Mild venous congestion. Mild right infrahilar prominence 10/23 CXR - Mild venous congestion. right hilar prominence. Biapical pleural thickening upper lobe granulomatous changes. lines and tubes in stable position. 10/22 CXR - Worsening consolidative changes to right mid to lower lung zone. lines and tubes in stable position. 10/20 CXR - Distal tip of an endotracheal tube terminates approximately 4.6 cm above the brisa. Left IJ approach Central venous catheter terminates at expected location of the left innominate vein. Nasogastric tube extends to expected location of the stomach 10/19 CXR New nasogastric tube extends to distal esophagus, above the diaphragm. Repositioning is advised. ET tube unchanged. No infiltrate. 10/18 CXR ET tube proximal to brisa, no acute pulmonary pathology official read pending Head of bed to 30* Keep O2 Sat >92% Dysphagia 12/04: Tolerating tube feedings with prostat 12/03: PEG tube in place, continue tube feeding with Protein supplementation 12/01: PEG tube in place, ordered Prostat for additional protein 11/30: PEG tube in place, no residuals, tolerating tube feeds, will cont 11/29: PEG tube in place, no residuals, tolerating tube feeds- cont 11/28: PEG tube in place 11/25: PEG in place, residuals of 5cc/night per nursing 11/24: PEG tube in place, no residuals as per nursing, tolerating 60cc/hr tube feeds 11/23: Dietary recs for goal of 60cc/hr tube feeds, pt tolerating new goal, no residuals. PEG tube in place. 11/22: No residuals, dietary reconsulted for recs 11/21: Pt at goal of 50cc/hr tube feeds, PEG tube in place, no drainage noted 11/19: tolerating feedings 11/18: Tube feeds to 30cc today, keep free water flushes 11/17: PEG tube placed, tube feeds to start at noon, Dietary recs- Isosource 1.5, goal rate 50ml; Free water flushes 300cc Q8H 11/16: PEG tube today, tube feeds held 11/15: PEG tube in AM per GI, told Tube feeds after MN- NPO and nursing order in 11/14: No residuals overnight, ok to increase rate to 30cc/hr, GI re-consulted for PEG tube placement 11/11: Pt w/10cc residuals- kept at rate of 20cc/hr, will consider increasing by 10cc tomorrow if no residuals 11/10: Tube feeds stable 11/09: Tube feeds at 30cc/hr, no reported residuals. Advance by 10cc per day until goal of 50cc. 11/08- OGT placed last night, position verified- ok to use OGT for tube feeds 11/07: NPO- no access to stomach 11/05: OGT removed due to possible contribution to fever/sepsis. Feeding tube via oropharynx replaced 11/02 after pt removed position verified by CXR Feeding tube via oropharynx replaced 11/01 Position verified by CXR NGT was advanced 10/20 - d/c'd Consulted GI- Dr. Renteria- PEG tube placement when not having fevers/ leukocytosis Anemia- stable 12/04: No labs today 12/03: No labs today 12/01: No labs today 11/30: H/H 10.3/32 11/24-: No labs today 11/23: H/H 10.8/33.3 11/22: No labs today 11/21: Labs from 11/20: H/H 11/34.2- stable 11/18: No labs 11/17: H/H 11.9/36.5 11/16: H/H 12.2/38.1; PT 12.9, INR 1.2, PTT 39 11/15: H/H- 11.4/35.5, FU PT/INR/PTT 11/14: H/H - 11.3/35.2 11/11: H/H- 11.1/34.8 11/10: H/H- 11.5/36.1 11/09: H/H- 12.2/39.3 11/08: H/H- 10.4/33.5 11/07: H/H- 11.1/35.8 11/06: f/u H&H, monitor 11/05-11/06: H&H low, stable, continue to monitor H&H: 12.5/40.2- stable Intracranial bleed No coagulopathy Contraindication for anticoagulation Monitor Sepsis- resolved 11/30-: Cont Cipro as per ID for UTI 11/29: Repeat urine cxr grew multiple species, prior urine cx pos for pseudomonas - per ID- d/c Diflucan, start Cipro 400mg Q12H 11/28: Will repeat Urine Cx tomorrow, continue Diflucan 11/25: Cont Diflucan as per ID, FU repeat Urine cx ordered today 11/24: Cont diflucan 11/23: urine cx pos for yeast again. ID informed, told to continue Diflucan. 11/22: FU urine cx- if negative, will d/c Diflucan. Pt off Merrem and vanc. 11/21: Per ID- ok to de-escalate Antibiotics- Vanc discontinued last week, Merrem discontinued today, will continue Diflucan until repeat Urine cx resulted - [place] catheter changed on 11/18 11/19: no changes, afebrile 11/18: Afebrile over last 24H, no labs today, per ID- de-escalate Abx- do not renew Vanc, will cont merrem over the weekend, then d/c on 11/21. Change the [place] catheter if urine cx still positive for yeast. 11/17: Afebrile over last 24H, no leukocytosis- stable, no changes 11/16: Afebrile over last 24H, no leukocytosis- stable, no changes 11/15: Afebrile over last 24H, no leukocytosis- stable FU Vanc trough at 1pm 11/15 11/14: Afebrile over last 24H, no leukocytosis 11/13: Afebrile, labs stable 11/12: Afebrile overnight, f/u am labs 11/11: Afebrile over last 24H, WBC down trending, now 12.3 from 12.6, per ID: resume vancomcyin; trough 10-15; and monitor wbc count FU sputum cxr- talked to lab- results will be available on 11/12- so far only normal kalin growing FU vanc trough on 11/12 before 3rd dose 11/10: Afebrile over last 24H, WBC down trending, no w 12.6 from 14.1, Blood cx neg x 4 D, repeat urine cxr pos for yeast 11/09: Afebrile over last 24H, WBC increased from 11.9 to 14.1; Blood/urine/ sputum cxr sent Vanc trough 8.4 Urine cxr pos for yeast Diflucan 200mg Q24H ordered ID consulted for adjustement of antibiotics/antifungals- awaiting recs 11/08: Afebrile over last 24H, WBC 11.9, Bands 3 11/07: Afebrile over last 24H, WBC 16.3, Bands 6 Trach asp pos for Gram neg rods Blood cxr neg x 48H 11/06: Continue to monitor WBC 11/05: Leukocytosis 21.8 from 19.4, 16.7 - trending up 11/05: Vanc trough - 5.1 Afebrile over last 24H -Started Vanco 1gm Q24H vanco through 11/02 - 5.1 11/01- apr work up sent: blood cxr, urine cxr, CXR, C diff stool Blood cxr neg x 48H urine cxr neg Bandemia 5 10/31- Trach asp cx - normal kalin 10/31 - Urine ([place]) cxr neg 10/25 Sputum cx: Serratia marcescens and Enterobactor aerogenes 10/21 Sputum cx: Klebsiella pneumoniae Hold change of antibiotics. Fully aware of the low grade temperature, and increase in WBCs. Patient is hemodynamically stable. IV Cefepime 1 gram Q8H Acetaminophen 650 mg Q6 PRN for fever ID following- Kathy- continue Merrem and Vanco due to aspiration and pos Enterobacter Aerogenes Per Micro- Enterobacter aerogenes sensitive to merrem cont merrem Per ID: increase vanc to 1gm Q12H, FU vanc peak and trough on 3rd dose, cont diflucan Vanc trough 13.8- Vanco held, no peak done due to high trough Muscular deconditioning due to being bed bound Cont PT/OT Pt and family member at bedside instructed on self-rehab exercises Monitor tracheostomy site for drainage, erythema, hematoma, signs of infection. Prophylaxis: GI - Protonix 40 mg IVP daily DVT - contraindicated 09/15 to intracranial bleed WIll re-asses VTE needs on 12/07 Dispo: Con current mgmt ID following Pulm following Cont condom catheter Cont general body care SW eval for possible LTAC after PEG placement PEG tube with tube feeding in place @ goal of 60 cc/hour per dietary Labs Q7days PT/OT Pt in process of being added to 's insurance SW informed that pt's family is unable to afford/provide care for pt at home Pt tolerating decannulation of tracheostomy Prostat with tube feeds Need to re-assess urine culture, possibly this week <Johny Saldana H - Last Filed: 12/04/16 12:00> Objective - Vital Signs/Intake and Output Vital Signs (last 24 hours): Temp Pulse Resp BP Pulse Ox 97.8 F 78 20 122/79 100 12/04/16 08:18 12/04/16 08:18 12/04/16 08:18 12/04/16 08:18 12/04/16 08:18 Intake and Output: 12/04/16 12/04/16 06:59 18:59 Intake Total 1730 Output Total 400 Balance 1330 - Medications Medications: Current Medications Acetaminophen (Tylenol 325mg Tab) 650 mg PO Q6 PRN PRN Reason: Fever >100.4 F Last Admin: 11/29/16 13:19 Dose: 650 mg Acetylcysteine (Acetylcysteine 20%) 4 ml INH Q6H OMAR Last Admin: 12/04/16 08:01 Dose: 4 ml Albuterol Sulfate (Albuterol 0.083% Inhal Kim (2.5 Mg/3 Ml) Ud) 2.5 mg INH RQ6 OMAR Last Admin: 12/04/16 08:01 Dose: 2.5 mg Amlodipine Besylate (Norvasc) 5 mg PO DAILY [facility] Last Admin: 12/04/16 10:02 Dose: 5 mg Aspirin (Aspirin Chewable) 81 mg GT DAILY [facility] Last Admin: 12/04/16 10:02 Dose: 81 mg Ciprofloxacin (Cipro 400mg/200ml Dsw) 200 mls @ 133 mls/hr IVPB Q12H OMAR Last Admin: 12/04/16 04:12 Dose: 133 mls/hr Pantoprazole Sodium (Protonix Susp) 40 mg GT DAILY [facility] Last Admin: 12/04/16 10:02 Dose: 40 mg Rosuvastatin Calcium (Crestor) 5 mg GT HS [facility] Last Admin: 12/03/16 21:28 Dose: 5 mg Saccharomyces Boulardii (Florastor) 250 mg PO BID [facility] Last Admin: 12/04/16 10:03 Dose: 250 mg - Labs Labs: 11/30/16 07:19 11/30/16 07:19 PT 12.9 SECONDS (9.7-12.2) H 11/15/16 13:58 INR 1.2 11/15/16 13:58 APTT 39 SECONDS (21-34) H 11/15/16 13:58 Attending/Attestation - Attestation I have personally seen and examined this patient.: Yes I have fully participated in the care of the patient.: Yes I have reviewed all pertinent clinical information, including history, physical exam and plan: Yes Notes (Text): Medical Attending: Patient was seen and examined, yesterday I had long discussion with the patient's son from [place]. There was maybe going to be a family meeting yesterday with social/skilled nursing case manager but it did not happen. I updated the patient's son with events of the week. He explained to me that it would be very difficult for them to care for the patient at home - also cost would be an issue as well thank you Johny Saldana
[2016-12-04] MEDS: Acetylcysteine 20% Inhal Soln (4ml) INH SCH ×4 (02:20→20:34)
[2016-12-04] MEDS: Albuterol 0.083% Inhal Sol (2.5 mg/3 mL) UD INH SCH ×4 (02:21→20:34)
[2016-12-04] MEDS: Ciprofloxacin 400mg/200ml D5W 200 ML IVPB SCH ×2 (04:12→18:00)
[2016-12-04] MEDS ORDERED: Pantoprazole 40 mg EC Tab PO SCH (10:00)
[2016-12-04] MEDS: Pantoprazole 40 mg Susp UD GT SCH (10:02)
[2016-12-04] MEDS: Saccharomyces Boulardi 250 mg Cap PO SCH ×2 (10:03→18:51)
[2016-12-05] MEDS: Acetylcysteine 20% Inhal Soln (4ml) INH SCH ×4 (02:09→19:12)
[2016-12-05] MEDS: Albuterol 0.083% Inhal Sol (2.5 mg/3 mL) UD INH SCH ×4 (02:09→19:12)
[2016-12-05] MEDS: Ciprofloxacin 400mg/200ml D5W 200 ML IVPB SCH ×2 (04:22→17:00)
--- NOTE | 2016-12-05 09:09 | CP.PCM.PN ---
<Karena Acuña - Last Filed: 12/05/16 13:33> Subjective - Date & Time of Evaluation Date of Evaluation: 12/05/16 Time of Evaluation: 09:09 - Subjective Subjective: Patient seen and examined at bedside. Patient aphasic. He denies chest pain and shortness of breath but admits to abdominal pain. No acute events per nursing. Urinalysis was positive on 11/29/16; however, culture showed multiple species. Plan to repeat urinalysis and culture. Objective - Vital Signs/Intake and Output Vital Signs (last 24 hours): Temp Pulse Resp BP Pulse Ox 98 F 97 H 20 127/76 100 12/05/16 07:50 12/05/16 07:50 12/05/16 07:50 12/05/16 07:50 12/05/16 07:50 Intake and Output: 12/05/16 12/05/16 06:59 18:59 Intake Total 1760 Output Total 1100 Balance 660 - Medications Medications: Current Medications Acetaminophen (Tylenol 325mg Tab) 650 mg PO Q6 PRN PRN Reason: Fever >100.4 F Last Admin: 11/29/16 13:19 Dose: 650 mg Acetylcysteine (Acetylcysteine 20%) 4 ml INH Q6H [facility] Last Admin: 12/05/16 07:33 Dose: 4 ml Albuterol Sulfate (Albuterol 0.083% Inhal Kim (2.5 Mg/3 Ml) Ud) 2.5 mg INH RQ6 [facility] Last Admin: 12/05/16 07:33 Dose: 2.5 mg Amlodipine Besylate (Norvasc) 5 mg PO DAILY [facility] Last Admin: 12/04/16 10:02 Dose: 5 mg Aspirin (Aspirin Chewable) 81 mg GT DAILY [facility] Last Admin: 12/04/16 10:02 Dose: 81 mg Ciprofloxacin (Cipro 400mg/200ml Dsw) 200 mls @ 133 mls/hr IVPB Q12H [facility] Last Admin: 12/05/16 04:22 Dose: 133 mls/hr Pantoprazole Sodium (Protonix Susp) 40 mg GT DAILY [facility] Last Admin: 12/04/16 10:02 Dose: 40 mg Rosuvastatin Calcium (Crestor) 5 mg GT HS [facility] Last Admin: 12/04/16 22:49 Dose: 5 mg Saccharomyces Boulardii (Florastor) 250 mg PO BID [facility] Last Admin: 12/04/16 18:51 Dose: 250 mg - Labs Labs: 11/30/16 07:19 11/30/16 07:19 PT 12.9 SECONDS (9.7-12.2) H 11/15/16 13:58 INR 1.2 11/15/16 13:58 APTT 39 SECONDS (21-34) H 11/15/16 13:58 - Constitutional Appears: Non-toxic, No Acute Distress - Head Exam Head Exam: ATRAUMATIC, NORMAL INSPECTION, NORMOCEPHALIC - Eye Exam Eye Exam: Normal appearance, PERRL - ENT Exam ENT Exam: Mucous Membranes Moist - Neck Exam Neck Exam: Normal Inspection - Respiratory Exam Respiratory Exam: Clear to Ausculation Bilateral, NORMAL BREATHING PATTERN. absent: Rales, Rhonchi, Wheezes - Cardiovascular Exam Cardiovascular Exam: +S1, +S2. absent: Tachycardia - GI/Abdominal Exam GI & Abdominal Exam: Firm, Tenderness, Normal Bowel Sounds - Extremities Exam Extremities Exam: Normal Inspection. 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 12/05: demonstrates some movement of RUE 12/03: Pt able to lift RUE a little, RLE a little 12/01: Increased ROM of RUE 11/30: Pt with increased ROM of RUE after rehab efforts of family 11/29: Trach collar with secretions, asked pulm to re-evaluate for either weaning or valve 11/28: Trach collar in place with secretions- cleaned up, respiratory informed that pt needs suctioning 11/25: Trach care being provided by nursing, secretions noted, trach collar in place 11/24: Trach collar with copious secretions, trach care as per nursing 11/23: Stable, trach collar care as per nursing, continues with copious secretions 11/22: Trach collar in place, no secretions audible this morning, cont ASA daily 11/21: Trach collar in place, secretions audible- nursing notified; ASA 81 mg daily started as per neuro 11/19: Minimal secretions at trach, stable 11/18: Trach collar in place, stable 4/6: On trach collar, stable, lots of secretions 11/16: Stable on trach collar, no changes 11/15: Stable, no changes, trach collar in place 11/14: trach collar in place 11/13: Pt still with secretions, respiratory informed and will address 11/11: Secretions continued, started duonebs and mucomyst, informed nursing to do trach care and suctioning 11/10: Pt with audible secretions on trach collar- nursing informed, OGT in place 11/09: Pt resting comfortably in bed, trach to trach collar- tolerating w/some secretions as per respiratory, OGT In place 11/08: Resting comfortably, trach in place, OGT in place, does not 11/07: Resting comfortably, trach in place 11/06: Trach in place, resting comfortably. Follows simple commands to protrude tongue and move L arm 11/05: did not follow simple commands 11/04: Continues to follows simple commands in [place] Neurology consult - Dr. Simpson advise to schedule trach and PEG. Hold antiplatelets for 4-6 weeks and maintain blood pressure above 100 systolic. Sedation as needed 10/24 CT Head: little interval change in the size of left thalamic hemorrhage 2.4x2.9 cm with intraventricular extension of hemorrhage and mild obstructive hydrocephalus. 2 mm midline shift from left to right with no evidence of herniation. Near complete resolution of hemorrhage within 4th ventricle. 10/19 CT Head: little interval change in the known 2.0 x 2.7 acute hematoma in left thalamus with intra ventricular extension of hemorrhage. Interval mild worsening of obstructive hydrocephalus. 10/18 CT Head: Left basal ganglia acute hemorrhage, possibly hypertensive with associated intraventricular hemorrhage and mass effect upon the left lateral aspect of the 3rd ventricle with the tip shift of the 3rd ventricle towards the right side. No generalized midline shift. Air-fluid level in sphenoid sinus common nonspecific. Please correlate for concern regarding acute sinusitis. Mild involutional changes. GCS - 8T (E4 VT M4) [place] II 10.0, 12% estimated non-operative mortality 11/03- CT brain w/o cont for re-evaluation of bleed w/findings of Interval decrease in size and density left basal ganglia hematoma however well- circumscribed peripheral rim of low-attenuation edema about the hematoma likely represent some combination of brain edema as well as of brain necrosis. Intraventricular hemorrhage has diminished. Ventricles have also decreased in size though the temporal horns and atria remain prominent compared to the compressed remaining ventricular system. There is persistent compression of the 3rd and left lateral ventricle Chronic white matter and basal nuclei ischemic changes. December 07- reassess pt need for anticoagulation with neurology HTN: 12/05: normotensive 12/04: BP WNL 12/03: BP 112/74 - well controlled with Norvasc 12/01: BP 137/78- cont Norvasc 11/30: 111/72- well controlled on Norvasc, cont 11/29: 120/70- Cont Norvasc 11/28: BP 108/68- Cont Norvasc 11/25: BP 106/71- cont Norvasc 11/24: BP WNL- cont Norvasc 11/23: 126/78m cont Norvasc 11/22: BP 118/78, cont Norvasc/monitor 11/21: BP 128/89, cont Norvasc 11/19: BP stable, c/w current management 11/18: BP 145/89; Cont Norvasc 11/17: 150/89; cont Norvasc 11/16: BP 138/88,- cont Norvasc 11/15: BP 142/83, cont Norvasc/monitor VS 11/14:BP 146/95, cont Norvasc 11/12: BP controlled 11/11: BP 134/91, started Norvasc 5mg Daily 11/10: BP 135/90, will d/c IVF 11/09: BP 169/94- same as previous 11/08: BP 148/95, slight elevated, but mostly WNL- continue to hold Hydralazine 11/06: BP elevated 161/99; continue to monitor 11/05: BP WNL Amlodipine 10 mg POQD Hydralazine 25 mg PO BID - currently being held- BP WNL Losartan 100 mg POQD Labetalol 200 mg PO Q12H Respiratory failure - resolved 12/04: Pt tolerating RA- dressing over trach site C/D/I 12/03: Pt doing well without trach on room air, tracheostomy site with dressing in place- C/D/I 12/01: Trachestomy decannulated, pt tolerating Room air, tracheostomy site with dressing in place 11/30: Pulm recs- cont albuterol, ABx, decannulated- pO2 after procedure 99% on 3L, cont current mgmt 11/29: Awaiting pulm recs regarding weaning vs. valve for Trach collar 11/28: Pulm re-consulted for recs regarding weaning pt off trach collar 11/25: Pulm following, trach collar in place, mucus secretions noted, being cleaned up by nursing 11/24: Trach collar with secretions, non bloody, pulm following 11/23: Trach collar in place, pt tolerating, pulm following 11/22: TC in place, care as per respiratory, nursing, pulm following 11/21: Trach collar at 30%FiO2, pulm following, trach care as per respiratory and nursing 11/20: no changes, pul following 11/18: Trach collar at 30% FiO2, pulm following 11/17: Pulm following, pt on 30%FiO2 via trach collar- stable 11/16: Pulm following - pt on T tube for PEG 11/15: Pulm following- cont trach collar, pulm toilet 11/14: Still tolerating trach collar off vent, pulm following 11/13: Off of vent, tolerating well. 11/11: Pulm recs- Continue weaning with trials off vent, continue nebulizer treatments 11/10: On trach collar, pulm consulted for potential weaning, mucomyst ordered for secretions 11/08: Trial pt on trach collar w/o mech vent Pulm consulted for trach weaning protocol- Leo 11/08: Trial pt on trach collar w/o mech vent 11/07: Trach collar w/CPAP 11/06: Trach in place. On mech vent s/p tracheostomy Trach tube care CPAP ABG: -10/29 pH 7.46, CO 35, O2 90, HCO3 26.0 -10/28 pH 7.46, CO2 35, O2 73, HCO3 25.9 -10/27 pH 7.49, CO2 33, O2 74, HCO3 26.5 -10/26 pH 7.5, CO2 32, O2 91, HCO3 26.6 -10/24 pH 7.47, CO2 35, O2 119, HCO3 26.5 -10/23 pH 7.47, CO2 33, O2 66, HCO3 25.5 -10/22 pH 7.52, CO2 33, O2 57, HCO3 28.1 -10/21 pH 7.48, CO2 38, O2 79, HCO3 28.5 -10/20 pH 7.46, CO2 37, O2 187 HCO3 26.9 -10/19 pH 7.46, CO2 38, O2 214, HCO3 27.4 Imaging 11/08 CXR-Tracheostomy tube in place. Other lines and tubes in stable position. Mild patchy increased markings in the right infrahilar region. Biapical pleural thickening. 11/02/CXR - repeat CXR for replacement of OGT w/Support lines tubes - normally positioned No interval pathology noted 11/02 CXR - Interval improvement in the right lower lung since the previous study. Appropriate position of the right-sided PICC line with the tip is likely at the SVC right atrium junction 11/01 CXR - The in situ tracheostomy tube and NG tube positions are as before. Mild interval prominence of the right infrahilar bronchovascular markings either due to technique or subtle interval patchy infiltrate. Clinical follow- up recommended 10/31 CXR -In situ tracheostomy tube remains in good position. NGT w/tip overlying LUQ of the abdomen unchanged. Continued improvement right lung base. 10/28 CXR No focal airspace opacity 10/27 CXR No active disease 10/26 CXR - Mild venous congestion. Right hilar prominence 10/24 CXR Mild venous congestion. Mild right infrahilar prominence 10/23 CXR - Mild venous congestion. right hilar prominence. Biapical pleural thickening upper lobe granulomatous changes. lines and tubes in stable position. 10/22 CXR - Worsening consolidative changes to right mid to lower lung zone. lines and tubes in stable position. 10/20 CXR - Distal tip of an endotracheal tube terminates approximately 4.6 cm above the brisa. Left IJ approach Central venous catheter terminates at expected location of the left innominate vein. Nasogastric tube extends to expected location of the stomach 10/19 CXR New nasogastric tube extends to distal esophagus, above the diaphragm. Repositioning is advised. ET tube unchanged. No infiltrate. 10/18 CXR ET tube proximal to brisa, no acute pulmonary pathology official read pending Head of bed to 30* Keep O2 Sat >92% Dysphagia 12/05: Tolerating tube feedings with prostat 12/03: PEG tube in place, continue tube feeding with Protein supplementation 12/01: PEG tube in place, ordered Prostat for additional protein 11/30: PEG tube in place, no residuals, tolerating tube feeds, will cont 11/29: PEG tube in place, no residuals, tolerating tube feeds- cont 11/28: PEG tube in place 11/25: PEG in place, residuals of 5cc/night per nursing 11/24: PEG tube in place, no residuals as per nursing, tolerating 60cc/hr tube feeds 11/23: Dietary recs for goal of 60cc/hr tube feeds, pt tolerating new goal, no residuals. PEG tube in place. 11/22: No residuals, dietary reconsulted for recs 11/21: Pt at goal of 50cc/hr tube feeds, PEG tube in place, no drainage noted 11/19: tolerating feedings 11/18: Tube feeds to 30cc today, keep free water flushes 11/17: PEG tube placed, tube feeds to start at noon, Dietary recs- Isosource 1.5, goal rate 50ml; Free water flushes 300cc Q8H 11/16: PEG tube today, tube feeds held 11/15: PEG tube in AM per GI, told Tube feeds after MN- NPO and nursing order in 11/14: No residuals overnight, ok to increase rate to 30cc/hr, GI re-consulted for PEG tube placement 11/11: Pt w/10cc residuals- kept at rate of 20cc/hr, will consider increasing by 10cc tomorrow if no residuals 11/10: Tube feeds stable 11/09: Tube feeds at 30cc/hr, no reported residuals. Advance by 10cc per day until goal of 50cc. 11/08- OGT placed last night, position verified- ok to use OGT for tube feeds 11/07: NPO- no access to stomach 11/05: OGT removed due to possible contribution to fever/sepsis. Feeding tube via oropharynx replaced 11/02 after pt removed position verified by CXR Feeding tube via oropharynx replaced 11/01 Position verified by CXR NGT was advanced 10/20 - d/c'd Consulted GI- Dr. Renteria- PEG tube placement when not having fevers/ leukocytosis Anemia- stable 12/05: No labs today 12/04: No labs today 12/03: No labs today 12/01: No labs today 11/30: H/H 10. 11/24-: No labs today 11/23: H/H 10.8/33.3 11/22: No labs today 11/21: Labs from 11/20: H/H 11/34.2- stable 11/18: No labs 11/17: H/H 11.9/36.5 11/16: H/H 12.2/38.1; PT 12.9, INR 1.2, PTT 39 11/15: H/H- 11.4/35.5, FU PT/INR/PTT 11/14: H/H - 11.3/35.2 11/11: H/H- 11.1/34.8 11/10: H/H- 11.5/36.1 11/09: H/H- 12.2/39.3 11/08: H/H- 10.4/33.5 11/07: H/H- 11.1/35.8 11/06: f/u H&H, monitor 11/05-11/06: H&H low, stable, continue to monitor H&H: 12.5/40.2- stable Intracranial bleed No coagulopathy Contraindication for anticoagulation Monitor Sepsis- resolved 12/05: Continue Cipro. Follow-up repeat UA and culture. WIll change condom catheter. 11/30-: Cont Cipro as per ID for UTI 11/29: Repeat urine cxr grew multiple species, prior urine cx pos for pseudomonas - per ID- d/c Diflucan, start Cipro 400mg Q12H 11/28: Will repeat Urine Cx tomorrow, continue Diflucan 11/25: Cont Diflucan as per ID, FU repeat Urine cx ordered today 11/24: Cont diflucan 11/23: urine cx pos for yeast again. ID informed, told to continue Diflucan. 11/22: FU urine cx- if negative, will d/c Diflucan. Pt off Merrem and vanc. 11/21: Per ID- ok to de-escalate Antibiotics- Vanc discontinued last week, Merrem discontinued today, will continue Diflucan until repeat Urine cx resulted - [place] catheter changed on 11/18 11/19: no changes, afebrile 11/18: Afebrile over last 24H, no labs today, per ID- de-escalate Abx- do not renew Vanc, will cont merrem over the weekend, then d/c on 11/21. Change the [place] catheter if urine cx still positive for yeast. 11/17: Afebrile over last 24H, no leukocytosis- stable, no changes 11/16: Afebrile over last 24H, no leukocytosis- stable, no changes 11/15: Afebrile over last 24H, no leukocytosis- stable FU Vanc trough at 1pm 11/15 11/14: Afebrile over last 24H, no leukocytosis 11/13: Afebrile, labs stable 11/12: Afebrile overnight, f/u am labs 11/11: Afebrile over last 24H, WBC down trending, now 12.3 from 12.6, per ID: resume vancomcyin; trough -15; and monitor wbc count FU sputum cxr- talked to lab- results will be available on 11/12- so far only normal kalin growing FU vanc trough on 11/12 before 3rd dose 11/10: Afebrile over last 24H, WBC down trending, no w 12.6 from 14.1, Blood cx neg x 4 D, repeat urine cxr pos for yeast 11/09: Afebrile over last 24H, WBC increased from 11.9 to 14.1; Blood/urine/ sputum cxr sent Vanc trough 8.4 Urine cxr pos for yeast Diflucan 200mg Q24H ordered ID consulted for adjustement of antibiotics/antifungals- awaiting recs 11/08: Afebrile over last 24H, WBC 11.9, Bands 3 11/07: Afebrile over last 24H, WBC 16.3, Bands 6 Trach asp pos for Gram neg rods Blood cxr neg x 48H 11/06: Continue to monitor WBC 11/05: Leukocytosis 21.8 from 19.4, 16.7 - trending up 11/05: Vanc trough - 5.1 Afebrile over last 24H -Started Vanco 1gm Q24H vanco through 11/02 - 5.1 11/01- apr work up sent: blood cxr, urine cxr, CXR, C diff stool Blood cxr neg x 48H urine cxr neg Bandemia 5 10/31- Trach asp cx - normal kalin 10/31 - Urine ([place]) cxr neg 10/25 Sputum cx: Serratia marcescens and Enterobactor aerogenes 10/21 Sputum cx: Klebsiella pneumoniae Hold change of antibiotics. Fully aware of the low grade temperature, and increase in WBCs. Patient is hemodynamically stable. IV Cefepime 1 gram Q8H Acetaminophen 650 mg Q6 PRN for fever ID following- Kathy- continue Merrem and Vanco due to aspiration and pos Enterobacter Aerogenes Per Micro- Enterobacter aerogenes sensitive to merrem cont merrem Per ID: increase vanc to 1gm Q12H, FU vanc peak and trough on 3rd dose, cont diflucan Vanc trough 13.8- Vanco held, no peak done due to high trough Muscular deconditioning due to being bed bound Cont PT/OT Pt and family member at bedside instructed on self-rehab exercises Monitor tracheostomy site for drainage, erythema, hematoma, signs of infection. Prophylaxis: GI - Protonix 40 mg IVP daily DVT - contraindicated 09/15 to intracranial bleed WIll re-asses VTE needs on 12/07 Dispo: Con current mgmt ID following Pulm following Cont condom catheter Cont general body care SW eval for possible LTAC after PEG placement PEG tube with tube feeding in place @ goal of 60 cc/hour per dietary Labs Q7days PT/OT Pt in process of being added to 's insurance SW informed that pt's family is unable to afford/provide care for pt at home Pt tolerating decannulation of tracheostomy Prostat with tube feeds <Johny Saldana H - Last Filed: 12/05/16 14:35> Objective - Vital Signs/Intake and Output Vital Signs (last 24 hours): Temp Pulse Resp BP Pulse Ox 98 F 97 H 20 127/76 100 12/05/16 07:50 12/05/16 07:50 12/05/16 07:50 12/05/16 07:50 12/05/16 07:50 Intake and Output: 12/05/16 12/05/16 06:59 18:59 Intake Total 1760 Output Total 1100 Balance 660 - Medications Medications: Current Medications Acetaminophen (Tylenol 325mg Tab) 650 mg PO Q6 PRN PRN Reason: Fever >100.4 F Last Admin: 11/29/16 13:19 Dose: 650 mg Acetylcysteine (Acetylcysteine 20%) 4 ml INH Q6H [facility] Last Admin: 12/05/16 13:32 Dose: 4 ml Albuterol Sulfate (Albuterol 0.083% Inhal Kim (2.5 Mg/3 Ml) Ud) 2.5 mg INH RQ6 [facility] Last Admin: 12/05/16 13:32 Dose: 2.5 mg Amlodipine Besylate (Norvasc) 5 mg PO DAILY [facility] Last Admin: 12/05/16 11:04 Dose: 5 mg Aspirin (Aspirin Chewable) 81 mg GT DAILY [facility] Last Admin: 12/05/16 11:05 Dose: 81 mg Ciprofloxacin (Cipro 400mg/200ml Dsw) 200 mls @ 133 mls/hr IVPB Q12H [facility] Last Admin: 12/05/16 04:22 Dose: 133 mls/hr Pantoprazole Sodium (Protonix Susp) 40 mg GT DAILY [facility] Last Admin: 12/05/16 11:05 Dose: 40 mg Rosuvastatin Calcium (Crestor) 5 mg GT HS [facility] Last Admin: 12/04/16 22:49 Dose: 5 mg Saccharomyces Boulardii (Florastor) 250 mg PO BID [facility] Last Admin: 12/05/16 11:05 Dose: 250 mg - Labs Labs: 11/30/16 07:19 11/30/16 07:19 PT 12.9 SECONDS (9.7-12.2) H 11/15/16 13:58 INR 1.2 11/15/16 13:58 APTT 39 SECONDS (21-34) H 11/15/16 13:58 Attending/Attestation - Attestation I have personally seen and examined this patient.: Yes I have fully participated in the care of the patient.: Yes I have reviewed all pertinent clinical information, including history, physical exam and plan: Yes Notes (Text): Medical attending: Patient was seen and examined by me, agrees the above note by medical concierge. Currently tenderness not been much change at this time. As mentioned yesterday we had a meeting with the patient's son over the weekend and I gave him an update with the situation. In the meantime we'll continue IV antibiotics, we should also changed the catheter this time. Otherwise the situation is unchanged from before Johny Saldana
[2016-12-05] MEDS: Saccharomyces Boulardi 250 mg Cap PO SCH ×2 (11:05→17:28)
[2016-12-05] MEDS: Pantoprazole 40 mg Susp UD GT SCH (11:05)
[2016-12-05 12:32] LABS: RBC URINE 2 /hpf (0-3); URINE BILIRUBIN NEGATIVE (NEGATIVE); URINE BLOOD NEGATIVE (NEGATIVE); URINE COLOR Yellow (YELLOW); URINE GLUCOSE (UA) NORMAL (Normal); URINE KETONE NEGATIVE (NEGATIVE); URINE LEUKOCYTE ESTERASE NEG Leu/uL (Negative); URINE PROTEIN NEGATIVE (NEGATIVE); WBC URINE 2 /hpf (0-5)
[2016-12-06] MEDS: Acetylcysteine 20% Inhal Soln (4ml) INH SCH ×4 (01:40→20:09)
[2016-12-06] MEDS: Albuterol 0.083% Inhal Sol (2.5 mg/3 mL) UD INH SCH ×4 (01:41→20:09)
[2016-12-06] MEDS: Pantoprazole 40 mg Susp UD GT SCH (10:18)
[2016-12-06] MEDS: Saccharomyces Boulardi 250 mg Cap PO SCH ×2 (10:18→18:38)
--- NOTE | 2016-12-06 10:37 | CP.PCM.PN ---
<ArianneKarena - Last Filed: 12/06/16 10:34> Subjective - Date & Time of Evaluation Date of Evaluation: 12/06/16 Time of Evaluation: 10:34 - Subjective Subjective: Patient seen and examined at bedside. No acute events per nursing overnight. Patient denies pain to chest and abdomen as well as shortness of breath. He is resting comfortably and able to move his right hand. Strength preserved to left upper extremity. Objective - Vital Signs/Intake and Output Vital Signs (last 24 hours): Temp Pulse Resp BP Pulse Ox 98.6 F 90 20 122/82 98 12/06/16 07:56 12/06/16 07:56 12/06/16 07:56 12/06/16 07:56 12/06/16 07:56 Intake and Output: 12/06/16 12/06/16 06:59 18:59 Intake Total 880 1080 Output Total 450 500 Balance 430 580 - Medications Medications: Current Medications Acetaminophen (Tylenol 325mg Tab) 650 mg PO Q6 PRN PRN Reason: Fever >100.4 F Last Admin: 11/29/16 13:19 Dose: 650 mg Acetylcysteine (Acetylcysteine 20%) 4 ml INH Q6H [facility] Last Admin: 12/06/16 07:37 Dose: 4 ml Albuterol Sulfate (Albuterol 0.083% Inhal Kim (2.5 Mg/3 Ml) Ud) 2.5 mg INH RQ6 OMAR Last Admin: 12/06/16 07:38 Dose: 2.5 mg Amlodipine Besylate (Norvasc) 5 mg PO DAILY [facility] Last Admin: 12/06/16 10:18 Dose: 5 mg Ciprofloxacin (Cipro 400mg/200ml Dsw) 200 mls @ 133 mls/hr IVPB Q12H [facility] Last Admin: 12/05/16 17:00 Dose: 133 mls/hr Pantoprazole Sodium (Protonix Susp) 40 mg GT DAILY [facility] Last Admin: 12/06/16 10:18 Dose: 40 mg Rosuvastatin Calcium (Crestor) 5 mg GT HS [facility] Last Admin: 12/05/16 22:02 Dose: 5 mg Saccharomyces Boulardii (Florastor) 250 mg PO BID [facility] Last Admin: 12/06/16 10:18 Dose: 250 mg - Labs Labs: 11/30/16 07:19 11/30/16 07:19 PT 12.9 SECONDS (9.7-12.2) H 11/15/16 13:58 INR 1.2 11/15/16 13:58 APTT 39 SECONDS (21-34) H 11/15/16 13:58 - Constitutional Appears: Non-toxic, No Acute Distress - Head Exam Head Exam: ATRAUMATIC, NORMAL INSPECTION, NORMOCEPHALIC - Eye Exam Eye Exam: Normal appearance, PERRL - ENT Exam ENT Exam: Mucous Membranes Moist - Respiratory Exam Respiratory Exam: Clear to Ausculation Bilateral, NORMAL BREATHING PATTERN. absent: Rales, Rhonchi, Wheezes - Cardiovascular Exam Cardiovascular Exam: +S1, +S2. absent: Tachycardia - GI/Abdominal Exam GI & Abdominal Exam: Soft, Normal Bowel Sounds. absent: Distended, Firm, Tenderness Additional comments: PEG site intact, no drainage or surrounding erythema - Extremities Exam Extremities Exam: Normal Inspection. 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 12/06: Continues to demonstrate some movement of RUE 12/03: Pt able to lift RUE a little, RLE a little 12/01: Increased ROM of RUE 11/30: Pt with increased ROM of RUE after rehab efforts of family 11/29: Trach collar with secretions, asked pulm to re-evaluate for either weaning or valve 11/28: Trach collar in place with secretions- cleaned up, respiratory informed that pt needs suctioning 11/25: Trach care being provided by nursing, secretions noted, trach collar in place 11/24: Trach collar with copious secretions, trach care as per nursing 11/23: Stable, trach collar care as per nursing, continues with copious secretions 11/22: Trach collar in place, no secretions audible this morning, cont ASA daily 11/21: Trach collar in place, secretions audible- nursing notified; ASA 81 mg daily started as per neuro 11/19: Minimal secretions at trach, stable 11/18: Trach collar in place, stable 11/17: On trach collar, stable, lots of secretions 11/16: Stable on trach collar, no changes 11/15: Stable, no changes, trach collar in place 11/14: trach collar in place 11/13: Pt still with secretions, respiratory informed and will address 11/11: Secretions continued, started duonebs and mucomyst, informed nursing to do trach care and suctioning 11/10: Pt with audible secretions on trach collar- nursing informed, OGT in place 11/09: Pt resting comfortably in bed, trach to trach collar- tolerating w/some secretions as per respiratory, OGT In place 11/08: Resting comfortably, trach in place, OGT in place, does not 11/07: Resting comfortably, trach in place 11/06: Trach in place, resting comfortably. Follows simple commands to protrude tongue and move L arm 11/05: did not follow simple commands 11/04: Continues to follows simple commands in [place] Neurology consult - Dr. Simpson advise to schedule trach and PEG. Hold antiplatelets for 4-6 weeks and maintain blood pressure above 100 systolic. Sedation as needed 10/24 CT Head: little interval change in the size of left thalamic hemorrhage 2.4x2.9 cm with intraventricular extension of hemorrhage and mild obstructive hydrocephalus. 2 mm midline shift from left to right with no evidence of herniation. Near complete resolution of hemorrhage within 4th ventricle. 10/19 CT Head: little interval change in the known 2.0 x 2.7 acute hematoma in left thalamus with intra ventricular extension of hemorrhage. Interval mild worsening of obstructive hydrocephalus. 10/18 CT Head: Left basal ganglia acute hemorrhage, possibly hypertensive with associated intraventricular hemorrhage and mass effect upon the left lateral aspect of the 3rd ventricle with the tip shift of the 3rd ventricle towards the right side. No generalized midline shift. Air-fluid level in sphenoid sinus common nonspecific. Please correlate for concern regarding acute sinusitis. Mild involutional changes. GCS - 8T (E4 VT M4) POARCH II 10.0, 12% estimated non-operative mortality 11/03- CT brain w/o cont for re-evaluation of bleed w/findings of Interval decrease in size and density left basal ganglia hematoma however well- circumscribed peripheral rim of low-attenuation edema about the hematoma likely represent some combination of brain edema as well as of brain necrosis. Intraventricular hemorrhage has diminished. Ventricles have also decreased in size though the temporal horns and atria remain prominent compared to the compressed remaining ventricular system. There is persistent compression of the 3rd and left lateral ventricle Chronic white matter and basal nuclei ischemic changes. December 07- reassess pt need for anticoagulation with neurology HTN: 12/06: normotensive 12/04: BP WNL 12/03: BP 112/74 - well controlled with Norvasc 12/01: BP 137/78- cont Norvasc 11/30: 111/72- well controlled on Norvasc, cont 11/29: 120/70- Cont Norvasc 11/28: BP 108/68- Cont Norvasc 11/25: BP 106/71- cont Norvasc 11/24: BP WNL- cont Norvasc 11/23: 126/78m cont Norvasc 11/22: BP 118/78, cont Norvasc/monitor 11/21: BP 128/89, cont Norvasc 11/19: BP stable, c/w current management 11/18: BP 145/89; Cont Norvasc 11/17: 150/89; cont Norvasc 11/16: BP 138/88,- cont Norvasc 11/15: BP 142/83, cont Norvasc/monitor VS 11/14:BP 146/95, cont Norvasc 11/12: BP controlled 11/11: BP 134/91, started Norvasc 5mg Daily 11/10: BP 135/90, will d/c IVF 11/09: BP 169/94- same as previous 11/08: BP 148/95, slight elevated, but mostly WNL- continue to hold Hydralazine 11/06: BP elevated 161/99; continue to monitor 11/05: BP WNL Amlodipine 10 mg POQD Hydralazine 25 mg PO BID - currently being held- BP WNL Losartan 100 mg POQD Labetalol 200 mg PO Q12H Respiratory failure - resolved 12/06: Pt tolerating RA- dressing over trach site C/D/I 12/03: Pt doing well without trach on room air, tracheostomy site with dressing in place- C/D/I 12/01: Trachestomy decannulated, pt tolerating Room air, tracheostomy site with dressing in place 11/30: Pulm recs- cont albuterol, ABx, decannulated- pO2 after procedure 99% on 3L, cont current mgmt 11/29: Awaiting pulm recs regarding weaning vs. valve for Trach collar 11/28: Pulm re-consulted for recs regarding weaning pt off trach collar 11/25: Pulm following, trach collar in place, mucus secretions noted, being cleaned up by nursing 11/24: Trach collar with secretions, non bloody, pulm following 11/23: Trach collar in place, pt tolerating, pulm following 11/22: TC in place, care as per respiratory, nursing, pulm following 11/21: Trach collar at 30%FiO2, pulm following, trach care as per respiratory and nursing 11/20: no changes, pul following 11/18: Trach collar at 30% FiO2, pulm following 11/17: Pulm following, pt on 30%FiO2 via trach collar- stable 11/16: Pulm following - pt on T tube for PEG 11/15: Pulm following- cont trach collar, pulm toilet 11/14: Still tolerating trach collar off vent, pulm following 11/13: Off of vent, tolerating well. 11/11: Pulm recs- Continue weaning with trials off vent, continue nebulizer treatments 11/10: On trach collar, pulm consulted for potential weaning, mucomyst ordered for secretions 11/08: Trial pt on trach collar w/o mech vent Pulm consulted for trach weaning protocol- Leo 11/08: Trial pt on trach collar w/o mech vent 11/07: Trach collar w/CPAP 11/06: Trach in place. On mech vent s/p tracheostomy Trach tube care CPAP ABG: -10/29 pH 7.46, CO 35, O2 90, HCO3 26.0 -10/28 pH 7.46, CO2 35, O2 73, HCO3 25.9 -10/27 pH 7.49, CO2 33, O2 74, HCO3 26.5 -10/26 pH 7.5, CO2 32, O2 91, HCO3 26.6 -10/24 pH 7.47, CO2 35, O2 119, HCO3 26.5 -10/23 pH 7.47, CO2 33, O2 66, HCO3 25.5 -10/22 pH 7.52, CO2 33, O2 57, HCO3 28.1 -10/21 pH 7.48, CO2 38, O2 79, HCO3 28.5 -10/20 pH 7.46, CO2 37, O2 187 HCO3 26.9 -10/19 pH 7.46, CO2 38, O2 214, HCO3 27.4 Imaging 11/08 CXR-Tracheostomy tube in place. Other lines and tubes in stable position. Mild patchy increased markings in the right infrahilar region. Biapical pleural thickening. 11/02/CXR - repeat CXR for replacement of OGT w/Support lines tubes - normally positioned No interval pathology noted 11/02 CXR - Interval improvement in the right lower lung since the previous study. Appropriate position of the right-sided PICC line with the tip is likely at the SVC right atrium junction 11/01 CXR - The in situ tracheostomy tube and NG tube positions are as before. Mild interval prominence of the right infrahilar bronchovascular markings either due to technique or subtle interval patchy infiltrate. Clinical follow- up recommended 10/31 CXR -In situ tracheostomy tube remains in good position. NGT w/tip overlying LUQ of the abdomen unchanged. Continued improvement right lung base. 10/28 CXR No focal airspace opacity 10/27 CXR No active disease 10/26 CXR - Mild venous congestion. Right hilar prominence 10/24 CXR Mild venous congestion. Mild right infrahilar prominence 10/23 CXR - Mild venous congestion. right hilar prominence. Biapical pleural thickening upper lobe granulomatous changes. lines and tubes in stable position. 10/22 CXR - Worsening consolidative changes to right mid to lower lung zone. lines and tubes in stable position. 10/20 CXR - Distal tip of an endotracheal tube terminates approximately 4.6 cm above the brisa. Left IJ approach Central venous catheter terminates at expected location of the left innominate vein. Nasogastric tube extends to expected location of the stomach 10/19 CXR New nasogastric tube extends to distal esophagus, above the diaphragm. Repositioning is advised. ET tube unchanged. No infiltrate. 10/18 CXR ET tube proximal to brisa, no acute pulmonary pathology official read pending Head of bed to 30* Keep O2 Sat >92% Dysphagia 12/06: Tolerating tube feedings with prostat 12/03: PEG tube in place, continue tube feeding with Protein supplementation 12/01: PEG tube in place, ordered Prostat for additional protein 11/30: PEG tube in place, no residuals, tolerating tube feeds, will cont 11/29: PEG tube in place, no residuals, tolerating tube feeds- cont 11/28: PEG tube in place 11/25: PEG in place, residuals of 5cc/night per nursing 11/24: PEG tube in place, no residuals as per nursing, tolerating 60cc/hr tube feeds 11/23: Dietary recs for goal of 60cc/hr tube feeds, pt tolerating new goal, no residuals. PEG tube in place. 11/22: No residuals, dietary reconsulted for recs 11/21: Pt at goal of 50cc/hr tube feeds, PEG tube in place, no drainage noted 11/19: tolerating feedings 11/18: Tube feeds to 30cc today, keep free water flushes 11/17: PEG tube placed, tube feeds to start at noon, Dietary recs- Isosource 1.5, goal rate 50ml; Free water flushes 300cc Q8H 11/16: PEG tube today, tube feeds held 11/15: PEG tube in AM per GI, told Tube feeds after MN- NPO and nursing order in 11/14: No residuals overnight, ok to increase rate to 30cc/hr, GI re-consulted for PEG tube placement 11/11: Pt w/10cc residuals- kept at rate of 20cc/hr, will consider increasing by 10cc tomorrow if no residuals 11/10: Tube feeds stable 11/09: Tube feeds at 30cc/hr, no reported residuals. Advance by 10cc per day until goal of 50cc. 11/08- OGT placed last night, position verified- ok to use OGT for tube feeds 11/07: NPO- no access to stomach 11/05: OGT removed due to possible contribution to fever/sepsis. Feeding tube via oropharynx replaced 11/02 after pt removed position verified by CXR Feeding tube via oropharynx replaced 11/01 Position verified by CXR NGT was advanced 10/20 - d/c'd Consulted GI- Dr. Renteria- PEG tube placement when not having fevers/ leukocytosis Anemia- stable 12/06: labs for tomorrow 12/05: No labs today 12/04: No labs today 12/03: No labs today 12/01: No labs today 11/30: H/H 10. 11/24-: No labs today 11/23: H/H 10.8/33.3 11/22: No labs today 11/21: Labs from 11/20: H/H 11/34.2- stable 11/18: No labs 11/17: H/H 11.9/36.5 11/16: H/H 12.2/38.1; PT 12.9, INR 1.2, PTT 39 11/15: H/H- 11.4/35.5, FU PT/INR/PTT 11/14: H/H - 11.3/35.2 11/11: H/H- 11.1/34.8 11/10: H/H- 11.5/36.1 11/09: H/H- 12.2/39.3 11/08: H/H- 10.4/33.5 11/07: H/H- 11.1/35.8 11/06: f/u H&H, monitor 11/05-11/06: H&H low, stable, continue to monitor H&H: 12.5/40.2- stable Intracranial bleed No coagulopathy Contraindication for anticoagulation Monitor Sepsis- resolved 12/06: Continue Cipro. Repeat UA (12/05): color yellow, clarity hazy, pH 6.0, sp gravity 1.019, nitrate negative, leukocyte esterase negative, WBC 2. Will follow -up cx. 12/05: Continue Cipro. Follow-up repeat UA and culture. WIll change condom catheter. 11/30-: Cont Cipro as per ID for UTI 11/29: Repeat urine cxr grew multiple species, prior urine cx pos for pseudomonas - per ID- d/c Diflucan, start Cipro 400mg Q12H 11/28: Will repeat Urine Cx tomorrow, continue Diflucan 11/25: Cont Diflucan as per ID, FU repeat Urine cx ordered today 11/24: Cont diflucan 11/23: urine cx pos for yeast again. ID informed, told to continue Diflucan. 11/22: FU urine cx- if negative, will d/c Diflucan. Pt off Merrem and vanc. 11/21: Per ID- ok to de-escalate Antibiotics- Vanc discontinued last week, Merrem discontinued today, will continue Diflucan until repeat Urine cx resulted - [place] catheter changed on 11/18 11/19: no changes, afebrile 11/18: Afebrile over last 24H, no labs today, per ID- de-escalate Abx- do not renew Vanc, will cont merrem over the weekend, then d/c on 11/21. Change the [place] catheter if urine cx still positive for yeast. 11/17: Afebrile over last 24H, no leukocytosis- stable, no changes 11/16: Afebrile over last 24H, no leukocytosis- stable, no changes 11/15: Afebrile over last 24H, no leukocytosis- stable FU Vanc trough at 1pm 11/15 11/14: Afebrile over last 24H, no leukocytosis 11/13: Afebrile, labs stable 11/12: Afebrile overnight, f/u am labs 11/11: Afebrile over last 24H, WBC down trending, now 12.3 from 12.6, per ID: resume vancomcyin; trough 10-15; and monitor wbc count FU sputum cxr- talked to lab- results will be available on 11/12- so far only normal kalin growing FU vanc trough on 11/12 before 3rd dose 11/10: Afebrile over last 24H, WBC down trending, no w 12.6 from 14.1, Blood cx neg x 4 D, repeat urine cxr pos for yeast 11/09: Afebrile over last 24H, WBC increased from 11.9 to 14.1; Blood/urine/ sputum cxr sent Vanc trough 8.4 Urine cxr pos for yeast Diflucan 200mg Q24H ordered ID consulted for adjustement of antibiotics/antifungals- awaiting recs 11/08: Afebrile over last 24H, WBC 11.9, Bands 3 11/07: Afebrile over last 24H, WBC 16.3, Bands 6 Trach asp pos for Gram neg rods Blood cxr neg x 48H 11/06: Continue to monitor WBC 11/05: Leukocytosis 21.8 from 19.4, 16.7 - trending up 11/05: Vanc trough - 5.1 Afebrile over last 24H -Started Vanco 1gm Q24H vanco through 11/02 - 5.1 11/01- apr work up sent: blood cxr, urine cxr, CXR, C diff stool Blood cxr neg x 48H urine cxr neg Bandemia 5 10/31- Trach asp cx - normal kalin 10/31 - Urine ([place]) cxr neg 10/25 Sputum cx: Serratia marcescens and Enterobactor aerogenes 10/21 Sputum cx: Klebsiella pneumoniae Hold change of antibiotics. Fully aware of the low grade temperature, and increase in WBCs. Patient is hemodynamically stable. IV Cefepime 1 gram Q8H Acetaminophen 650 mg Q6 PRN for fever ID following- Kathy- continue Merrem and Vanco due to aspiration and pos Enterobacter Aerogenes Per Micro- Enterobacter aerogenes sensitive to merrem cont merrem Per ID: increase vanc to 1gm Q12H, FU vanc peak and trough on 3rd dose, cont diflucan Vanc trough 13.8- Vanco held, no peak done due to high trough Muscular deconditioning due to being bed bound Cont PT/OT Pt and family member at bedside instructed on self-rehab exercises Monitor tracheostomy site for drainage, erythema, hematoma, signs of infection. Prophylaxis: GI - Protonix 40 mg IVP daily DVT - contraindicated 09/15 to intracranial bleed WIll re-asses VTE needs on 12/07 Dispo: Con current mgmt ID following Pulm following Cont condom catheter Cont general body care SW eval for possible LTAC after PEG placement PEG tube with tube feeding in place @ goal of 60 cc/hour per dietary Labs Q7days PT/OT Pt in process of being added to 's insurance SW informed that pt's family is unable to afford/provide care for pt at home Pt tolerating decannulation of tracheostomy Prostat with tube feeds <Apple Vidal V - Last Filed: 12/06/16 22:58> Objective - Vital Signs/Intake and Output Vital Signs (last 24 hours): Temp Pulse Resp BP Pulse Ox 98.5 F 87 20 124/77 100 12/06/16 15:00 12/06/16 15:00 12/06/16 15:00 12/06/16 15:00 12/06/16 15:00 Intake and Output: 12/06/16 12/07/16 18:59 06:59 Intake Total 1560 Output Total 1000 Balance 560 - Medications Medications: Current Medications Acetaminophen (Tylenol 325mg Tab) 650 mg PO Q6 PRN PRN Reason: Fever >100.4 F Last Admin: 11/29/16 13:19 Dose: 650 mg Acetylcysteine (Acetylcysteine 20%) 4 ml INH Q6H [facility] Last Admin: 12/06/16 20:09 Dose: 4 ml Albuterol Sulfate (Albuterol 0.083% Inhal Kim (2.5 Mg/3 Ml) Ud) 2.5 mg INH RQ6 OMAR Last Admin: 12/06/16 20:09 Dose: 2.5 mg Amlodipine Besylate (Norvasc) 5 mg PO DAILY [facility] Last Admin: 12/06/16 10:18 Dose: 5 mg Ciprofloxacin (Cipro 400mg/200ml Dsw) 200 mls @ 133 mls/hr IVPB Q12H [facility] Last Admin: 12/06/16 18:37 Dose: 133 mls/hr Pantoprazole Sodium (Protonix Susp) 40 mg GT DAILY [facility] Last Admin: 12/06/16 10:18 Dose: 40 mg Rosuvastatin Calcium (Crestor) 5 mg GT HS [facility] Last Admin: 12/05/16 22:02 Dose: 5 mg Saccharomyces Boulardii (Florastor) 250 mg PO BID [facility] Last Admin: 12/06/16 18:38 Dose: 250 mg - Labs Labs: 11/30/16 07:19 11/30/16 07:19 PT 12.9 SECONDS (9.7-12.2) H 11/15/16 13:58 INR 1.2 11/15/16 13:58 APTT 39 SECONDS (21-34) H 11/15/16 13:58 Attending/Attestation - Attestation I have personally seen and examined this patient.: Yes I have fully participated in the care of the patient.: Yes I have reviewed all pertinent clinical information, including history, physical exam and plan: Yes Notes (Text): Patient seen, examined, and case discussed with day-time resident. Patient seen, examined this morning. no family at bedside pending repeat urine studies from 12/05/16; UA appears improved. Most recent urine culture shows patient has Pseudomonas. Patient is currently on IV abx. Family trying to arrange for insurance for the patient at this time. Patient not suitable for home; will need constant monitoring, rehabilitation, and monitoring of peg feeds. Patient does not have family member who can provide constant care. Patient appropriate for fdc facility; will need aggressive PT/OT. Assessment/Plan (1) Intracranial hemorrhage Assessment & Plan: 10/18 CT Head: Left basal ganglia acute hemorrhage, possibly hypertensive with associated intraventricular hemorrhage and mass effect upon the left lateral aspect of the 3rd ventricle with the tip shift of the 3rd ventricle towards the right side. No generalized midline shift. Air-fluid level in sphenoid sinus common nonspecific. Please correlate for concern regarding acute sinusitis. Mild involutional changes. 10/19 CT Head: little interval change in the known 2.0 x 2.7 acute hematoma in left thalamus with intra ventricular extension of hemorrhage. Interval mild worsening of obstructive hydrocephalus. 10/24 CT Head: little interval change in the size of left thalamic hemorrhage 2.4x2.9 cm with intraventricular extension of hemorrhage and mild obstructive hydrocephalus. 2 mm midline shift from left to right with no evidence of herniation. Near complete resolution of hemorrhage within 4th ventricle. 11/03/16 CT Head; Interval decrease in size and density left basal ganglia hematoma; well-circumscribed peripheral rim of low attentuation edema about hematoma; combination of brain edema and brain necrosis; intraventricular hemorrhage has diminished. Ventricles hae also decreased in size temporal horns and atria remain prominent. Persistent compression of the 3rd and left lateral ventricle * Neurosurgery per initial consult-->patient's prognosis dismal at beginning of admission * Neurology (Dr. Simpson) on board-->per 10/26 note: patient has attained maximum response from neuro point of view from this admission; keep nutritional status and avoid infectious; treat with peg/trach; no antiplatelets for next 4-6 weeks (; maintain MAP ~100) * On baby aspirin 81mg PO daily; discussed with neurology with 11/22/16 Status: Acute (2) Hypertensive emergency Assessment & Plan: * Controlled * Norvasc 5mg PO daily * monitor vital signs (3) Acute respiratory failure Assessment & Plan: * s/p tracheostomy 10/28/16 * Patient completed trach collar. * Weaning completed; off ventilator * Saturating well. * Monitor dressing change of trach site * Pulmonary (Dr. Bailey) consulted to assist with weaning protocol * Mucomyst PRN to help thin out secretions * Duonebs PRN shortness of breathe * monitor and may need suctioning PRN * Completed decannulation on 10/30/16; saturating well * Consulted speech-->patient not appropriate for speak-easy valve status post decannulation; encourage speaking; also recommended ENT consult if necessary Status: resolved (4) CVA (cerebral vascular accident) Assessment & Plan: * Hemorrhagic stroke with associated hypotension and basal ganglia involvement * [id number]:5.7 * Cholestrol: 202, TG: LDL:130 HDL:52 * Aspirin 81mg PO daily * Blood pressure control monitoring * Start on Crestor 5mg POqHS * s/p peg placement; feedings via peg started on 11/17/16; monitor for residual * Patient currently on 60cc/hr with 400cc Q 8 hours of water flushes (5) Sepsis Per 11/05; Fever 103F and associated leukocytosis: 21.8; infection: pneumonia Infectious disease on board (Dr. Chavez) 10/21 Sputum-Klebsiella (sensitive to Maxipime) 10/25 Serratia and Enterobacter (sensitive to Maxipime) 10/31 Sputum: normal 11/06: Enterobacter which is sensitive Meropenem (switch from Maxipime) 11/06 Urine culture: yeast 11/09 Urine culture: yeast 11/21 Urine culture: yeast 11/26: Urine culture: Pseudomonas Blood cultures: 11/09: no growth for 5 days X2 Repeat sputum: normal kalin * Patient is currently on Ciprofloxcin 400mg IV Q12 (since 11/29/16); awaiting repeat urine culture from 12/05 (6) Hypernatremia * Free water: 400 water Q 8hours flushes peg * sodium normalized (7) Prophylactic care * s/p peg placement * Weaned off vent; saturating well s/p decanulation * Continue with aggressive PT/OT-->latest PT noted recommending for subacute/ LTAC * Family trying to secure insurance for the patient and coordinate with case management * follow-up with dietary for further recommendations * on peg feedings/fluid flushes Disposition * Pending insurance for [facility] care facility for rehabilitation and peg feedings, will need constant monitoring. Patient currently wears mittens to prevent him from pulling on his tubes and is unsafe for home.
[2016-12-06] MEDS: Ciprofloxacin 400mg/200ml D5W 200 ML IVPB SCH (18:37)
[2016-12-07] MEDS: Acetylcysteine 20% Inhal Soln (4ml) INH SCH ×4 (01:11→20:21)
[2016-12-07] MEDS: Albuterol 0.083% Inhal Sol (2.5 mg/3 mL) UD INH SCH ×4 (01:11→20:21)
[2016-12-07] MEDS: Ciprofloxacin 400mg/200ml D5W 200 ML IVPB SCH ×2 (04:23→16:30)
[2016-12-07 08:07] LABS: BASO # 0.1 K/uL (0.0-0.2); BASO % 0.7 % (0.0-2.0); EOS # 0.3 K/uL (0.0-0.7); EOS % 4.1 % (0.0-4.0); HEMATOCRIT 32.4 % (35.0-51.0); LYMPH # 1.4 K/uL (1.0-4.3); LYMPH % 17.2 % (20.0-40.0); MEAN CELL VOLUME 82.6 fL (80.0-94.0); MEAN CORPUSCULAR HGB CONC 31.4 g/dL (33.0-37.0); MEAN PLATELET VOLUME 9.8 fL (7.2-11.7); MONO # 0.7 K/uL (0.0-0.8); MONO % 8.4 % (0.0-10.0); RED CELL DISTRIBUTION WIDTH 15.2 % (11.5-14.5)
[2016-12-07 08:13] LABS: CHLORIDE 98 mmol/L (98-107)
[2016-12-07 08:14] LABS: POTASSIUM 3.9 mmol/L (3.6-5.2); SODIUM 138 mmol/L (132-148)
[2016-12-07 08:16] LABS: ALB/GLOB RATIO 0.9 (1.0-2.1); ALKALINE PHOSPHATASE 112 U/L (38-126); AST/SGOT 68 U/L (17-59); BILIRUBIN,TOTAL 0.4 mg/dL (0.2-1.3); BLOOD UREA NITROGEN 20 mg/dL (9-20); CARBON DIOXIDE 30 mmol/L (22-30); GFR AFRICAN-AMERICAN > 60; GLUCOSE,RANDOM 105 mg/dL (75-110); PHOSPHOROUS 4.6 mg/dL (2.5-4.5); TOTAL PROTEIN 6.8 g/dL (6.3-8.3)
[2016-12-07 08:17] LABS: ALT/SGPT 132 U/L (21-72); CALCIUM 8.7 mg/dl (8.6-10.4); MAGNESIUM 1.9 mg/dL (1.6-2.3)
[2016-12-07] MEDS: Pantoprazole 40 mg Susp UD GT SCH (09:36)
[2016-12-07] MEDS: Saccharomyces Boulardi 250 mg Cap PO SCH ×2 (09:36→17:53)
--- NOTE | 2016-12-07 15:39 | CP.PCM.PN ---
<ArianneKarena - Last Filed: 12/07/16 15:34> Subjective - Date & Time of Evaluation Date of Evaluation: 12/07/16 Time of Evaluation: 15:34 - Subjective Subjective: Patient seen and examined at bedside. Patient appears more lethargic today. He denies chest pain, shortness of breath, nausea, vomiting, and abdominal pain. Patient demonstrates ability to move both right upper and lower extremities. Patient also was able to say hello when prompted. Plan to see if patient will be accepted by [facility] or LT[facility]. Objective - Vital Signs/Intake and Output Vital Signs (last 24 hours): Temp Pulse Resp BP Pulse Ox 98 F 90 20 109/69 97 12/07/16 07:56 12/07/16 07:56 12/07/16 07:56 12/07/16 07:56 12/07/16 07:56 Intake and Output: 12/07/16 12/07/16 06:59 18:59 Intake Total 1080 680 Output Total 650 400 Balance 430 280 - Medications Medications: Current Medications Acetaminophen (Tylenol 325mg Tab) 650 mg PO Q6 PRN PRN Reason: Fever >100.4 F Last Admin: 11/29/16 13:19 Dose: 650 mg Acetylcysteine (Acetylcysteine 20%) 4 ml INH Q6H [facility] Last Admin: 12/07/16 14:04 Dose: 4 ml Albuterol Sulfate (Albuterol 0.083% Inhal Kim (2.5 Mg/3 Ml) Ud) 2.5 mg INH RQ6 [facility] Last Admin: 12/07/16 14:02 Dose: 2.5 mg Amlodipine Besylate (Norvasc) 5 mg PO DAILY [facility] Last Admin: 12/07/16 09:36 Dose: 5 mg Aspirin (Aspirin Chewable) 81 mg GT DAILY [facility] Last Admin: 12/07/16 09:36 Dose: 81 mg Aspirin (Aspirin Chewable) 81 mg GT DAILY [facility] Last Admin: 12/07/16 09:37 Dose: Not Given Ciprofloxacin (Cipro 400mg/200ml Dsw) 200 mls @ 133 mls/hr IVPB Q12H [facility] Last Admin: 12/07/16 04:23 Dose: 133 mls/hr Pantoprazole Sodium (Protonix Susp) 40 mg GT DAILY [facility] Last Admin: 12/07/16 09:36 Dose: 40 mg Rosuvastatin Calcium (Crestor) 5 mg GT HS [facility] Last Admin: 12/06/16 23:16 Dose: 5 mg Saccharomyces Boulardii (Florastor) 250 mg PO BID [facility] Last Admin: 12/07/16 09:36 Dose: 250 mg - Labs Labs: 12/07/16 07:53 12/07/16 07:53 PT 12.9 SECONDS (9.7-12.2) H 11/15/16 13:58 INR 1.2 11/15/16 13:58 APTT 39 SECONDS (21-34) H 11/15/16 13:58 - Constitutional Appears: Non-toxic, No Acute Distress - Head Exam Head Exam: ATRAUMATIC, NORMAL INSPECTION, NORMOCEPHALIC - Eye Exam Eye Exam: EOMI, Normal appearance, PERRL - ENT Exam ENT Exam: Mucous Membranes Moist - Neck Exam Neck Exam: Full ROM, Normal Inspection - Respiratory Exam Respiratory Exam: Clear to Ausculation Bilateral. absent: Rales, Rhonchi, Wheezes - Cardiovascular Exam Cardiovascular Exam: +S1, +S2 - GI/Abdominal Exam GI & Abdominal Exam: Soft, Normal Bowel Sounds. absent: Distended, Rigid, Tenderness - Extremities Exam Extremities Exam: absent: Pedal Edema, Tenderness Additional comments: limited range of motion of right upper and lower extremity. Improved significantly from previous days. 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 12/06: Continues to demonstrate some movement of RUE 12/03: Pt able to lift RUE a little, RLE a little 12/01: Increased ROM of RUE 11/30: Pt with increased ROM of RUE after rehab efforts of family 11/29: Trach collar with secretions, asked pulm to re-evaluate for either weaning or valve 11/28: Trach collar in place with secretions- cleaned up, respiratory informed that pt needs suctioning 11/25: Trach care being provided by nursing, secretions noted, trach collar in place 11/24: Trach collar with copious secretions, trach care as per nursing 11/23: Stable, trach collar care as per nursing, continues with copious secretions 11/22: Trach collar in place, no secretions audible this morning, cont ASA daily 11/21: Trach collar in place, secretions audible- nursing notified; ASA 81 mg daily started as per neuro 11/19: Minimal secretions at trach, stable 11/18: Trach collar in place, stable 11/17: On trach collar, stable, lots of secretions 11/16: Stable on trach collar, no changes 11/15: Stable, no changes, trach collar in place 11/14: trach collar in place 11/13: Pt still with secretions, respiratory informed and will address 11/11: Secretions continued, started duonebs and mucomyst, informed nursing to do trach care and suctioning 11/10: Pt with audible secretions on trach collar- nursing informed, OGT in place 11/09: Pt resting comfortably in bed, trach to trach collar- tolerating w/some secretions as per respiratory, OGT In place 11/08: Resting comfortably, trach in place, OGT in place, does not 11/07: Resting comfortably, trach in place 11/06: Trach in place, resting comfortably. Follows simple commands to protrude tongue and move L arm 11/05: did not follow simple commands 11/04: Continues to follows simple commands in [place] Neurology consult - Dr. Simpson advise to schedule trach and PEG. Hold antiplatelets for 4-6 weeks and maintain blood pressure above 100 systolic. Sedation as needed 10/24 CT Head: little interval change in the size of left thalamic hemorrhage 2.4x2.9 cm with intraventricular extension of hemorrhage and mild obstructive hydrocephalus. 2 mm midline shift from left to right with no evidence of herniation. Near complete resolution of hemorrhage within 4th ventricle. 10/19 CT Head: little interval change in the known 2.0 x 2.7 acute hematoma in left thalamus with intra ventricular extension of hemorrhage. Interval mild worsening of obstructive hydrocephalus. 10/18 CT Head: Left basal ganglia acute hemorrhage, possibly hypertensive with associated intraventricular hemorrhage and mass effect upon the left lateral aspect of the 3rd ventricle with the tip shift of the 3rd ventricle towards the right side. No generalized midline shift. Air-fluid level in sphenoid sinus common nonspecific. Please correlate for concern regarding acute sinusitis. Mild involutional changes. GCS - 8T (E4 VT M4) [place] II 10.0, 12% estimated non-operative mortality 11/03- CT brain w/o cont for re-evaluation of bleed w/findings of Interval decrease in size and density left basal ganglia hematoma however well- circumscribed peripheral rim of low-attenuation edema about the hematoma likely represent some combination of brain edema as well as of brain necrosis. Intraventricular hemorrhage has diminished. Ventricles have also decreased in size though the temporal horns and atria remain prominent compared to the compressed remaining ventricular system. There is persistent compression of the 3rd and left lateral ventricle Chronic white matter and basal nuclei ischemic changes. December 07- reassess pt need for anticoagulation with neurology HTN: 12/07: normotensive Amlodipine 10 mg POQD Hydralazine 25 mg PO BID - currently being held- BP WNL Losartan 100 mg POQD Labetalol 200 mg PO Q12H Respiratory failure - resolved 12/07: Pt tolerating room air- dressing over trach site C/D/I Imaging 11/08 CXR-Tracheostomy tube in place. Other lines and tubes in stable position. Mild patchy increased markings in the right infrahilar region. Biapical pleural thickening. 11/02/CXR - repeat CXR for replacement of OGT w/Support lines tubes - normally positioned No interval pathology noted 11/02 CXR - Interval improvement in the right lower lung since the previous study. Appropriate position of the right-sided PICC line with the tip is likely at the SVC right atrium junction 11/01 CXR - The in situ tracheostomy tube and NG tube positions are as before. Mild interval prominence of the right infrahilar bronchovascular markings either due to technique or subtle interval patchy infiltrate. Clinical follow- up recommended 10/31 CXR -In situ tracheostomy tube remains in good position. NGT w/tip overlying LUQ of the abdomen unchanged. Continued improvement right lung base. 10/28 CXR No focal airspace opacity 10/27 CXR No active disease 10/26 CXR - Mild venous congestion. Right hilar prominence 10/24 CXR Mild venous congestion. Mild right infrahilar prominence 10/23 CXR - Mild venous congestion. right hilar prominence. Biapical pleural thickening upper lobe granulomatous changes. lines and tubes in stable position. 10/22 CXR - Worsening consolidative changes to right mid to lower lung zone. lines and tubes in stable position. 10/20 CXR - Distal tip of an endotracheal tube terminates approximately 4.6 cm above the brisa. Left IJ approach Central venous catheter terminates at expected location of the left innominate vein. Nasogastric tube extends to expected location of the stomach 10/19 CXR New nasogastric tube extends to distal esophagus, above the diaphragm. Repositioning is advised. ET tube unchanged. No infiltrate. 10/18 CXR ET tube proximal to brisa, no acute pulmonary pathology official read pending Head of bed to 30* Keep O2 Sat >92% Dysphagia 12/07: PEG in place, tolerating tube feedings well 11/05: OGT removed due to possible contribution to fever/sepsis. Feeding tube via oropharynx replaced 11/02 after pt removed position verified by CXR Feeding tube via oropharynx replaced 11/01 Position verified by CXR NGT was advanced 10/20 - d/c'd Consulted GI- Dr. Renteria- PEG tube placement when not having fevers/ leukocytosis Anemia- stable 12/07: Hemoglobin stable at 10.2 H&H: 12.5/40.2- stable Intracranial bleed No coagulopathy Contraindication for anticoagulation Monitor Sepsis- resolved 12/06: Continue Cipro. Repeat UA (12/05): color yellow, clarity hazy, pH 6.0, sp gravity 1.019, nitrate negative, leukocyte esterase negative, WBC 2. Urine culture pending. 12/05: Continue Cipro. Follow-up repeat UA and culture. WIll change condom catheter. 11/30-: Cont Cipro as per ID for UTI 11/29: Repeat urine cxr grew multiple species, prior urine cx pos for pseudomonas - per ID- d/c Diflucan, start Cipro 400mg Q12H 11/28: Will repeat Urine Cx tomorrow, continue Diflucan 11/25: Cont Diflucan as per ID, FU repeat Urine cx ordered today 11/24: Cont diflucan 11/23: urine cx pos for yeast again. ID informed, told to continue Diflucan. 11/22: FU urine cx- if negative, will d/c Diflucan. Pt off Merrem and vanc. 11/21: Per ID- ok to de-escalate Antibiotics- Vanc discontinued last week, Merrem discontinued today, will continue Diflucan until repeat Urine cx resulted - [place] catheter changed on 11/18 11/19: no changes, afebrile 11/18: Afebrile over last 24H, no labs today, per ID- de-escalate Abx- do not renew Vanc, will cont merrem over the weekend, then d/c on 11/21. Change the [place] catheter if urine cx still positive for yeast. 11/17: Afebrile over last 24H, no leukocytosis- stable, no changes 11/16: Afebrile over last 24H, no leukocytosis- stable, no changes 11/15: Afebrile over last 24H, no leukocytosis- stable FU Vanc trough at 1pm 11/15 11/14: Afebrile over last 24H, no leukocytosis 11/13: Afebrile, labs stable 11/12: Afebrile overnight, f/u am labs 11/11: Afebrile over last 24H, WBC down trending, now 12.3 from 12.6, per ID: resume vancomcyin; trough 10-15; and monitor wbc count FU sputum cxr- talked to lab- results will be available on 11/12- so far only normal kalin growing FU vanc trough on 11/12 before 3rd dose 11/10: Afebrile over last 24H, WBC down trending, no w 12.6 from 14.1, Blood cx neg x 4 D, repeat urine cxr pos for yeast 11/09: Afebrile over last 24H, WBC increased from 11.9 to 14.1; Blood/urine/ sputum cxr sent Vanc trough 8.4 Urine cxr pos for yeast Diflucan 200mg Q24H ordered ID consulted for adjustement of antibiotics/antifungals- awaiting recs 11/08: Afebrile over last 24H, WBC 11.9, Bands 3 11/07: Afebrile over last 24H, WBC 16.3, Bands 6 Trach asp pos for Gram neg rods Blood cxr neg x 48H 11/06: Continue to monitor WBC 11/05: Leukocytosis 21.8 from 19.4, 16.7 - trending up 11/05: Vanc trough - 5.1 Afebrile over last 24H -Started Vanco 1gm Q24H vanco through 3/22 - 5.1 11/01- apr work up sent: blood cxr, urine cxr, CXR, C diff stool Blood cxr neg x 48H urine cxr neg Bandemia 5 10/31- Trach asp cx - normal kalin 10/31 - Urine ([place]) cxr neg 10/25 Sputum cx: Serratia marcescens and Enterobactor aerogenes 10/21 Sputum cx: Klebsiella pneumoniae Hold change of antibiotics. Fully aware of the low grade temperature, and increase in WBCs. Patient is hemodynamically stable. IV Cefepime 1 gram Q8H Acetaminophen 650 mg Q6 PRN for fever ID following- Kathy- continue Merrem and Vanco due to aspiration and pos Enterobacter Aerogenes Per Micro- Enterobacter aerogenes sensitive to merrem cont merrem Per ID: increase vanc to 1gm Q12H, FU vanc peak and trough on 3rd dose, cont diflucan Vanc trough 13.8- Vanco held, no peak done due to high trough Muscular deconditioning due to being bed bound Cont PT/OT Pt and family member at bedside instructed on self-rehab exercises Monitor tracheostomy site for drainage, erythema, hematoma, signs of infection. Prophylaxis: GI - Protonix 40 mg IVP daily DVT - contraindicated 09/15 to intracranial bleed WIll re-asses VTE needs on 12/07 Dispo: Assess patient for possible transfer to LTAC or [facility] ID following Pulm following Cont condom catheter Cont general body care SW eval for possible LTAC after PEG placement PEG tube with tube feeding in place @ goal of 60 cc/hour per dietary Labs Q7days PT/OT Pt in process of being added to 's insurance SW informed that pt's family is unable to afford/provide care for pt at home Pt tolerating decannulation of tracheostomy Prostat with tube feeds ENT, Dr. Nuno, to evaluate for vocal cord dysfunction. However, patient demonstrates ability to speak today. <Apple Vidal V - Last Filed: 12/07/16 22:48> Objective - Vital Signs/Intake and Output Vital Signs (last 24 hours): Temp Pulse Resp BP Pulse Ox 98.8 F 90 20 103/68 99 12/07/16 15:00 12/07/16 15:00 12/07/16 15:00 12/07/16 15:00 12/07/16 15:00 Intake and Output: 12/07/16 12/08/16 18:59 06:59 Intake Total 680 1080 Output Total 400 Balance 280 1080 - Medications Medications: Current Medications Acetaminophen (Tylenol 325mg Tab) 650 mg PO Q6 PRN PRN Reason: Fever >100.4 F Last Admin: 11/29/16 13:19 Dose: 650 mg Acetylcysteine (Acetylcysteine 20%) 4 ml INH Q6H [facility] Last Admin: 12/07/16 20:21 Dose: 4 ml Albuterol Sulfate (Albuterol 0.083% Inhal Kim (2.5 Mg/3 Ml) Ud) 2.5 mg INH RQ6 [facility] Last Admin: 12/07/16 20:21 Dose: 2.5 mg Amlodipine Besylate (Norvasc) 5 mg PO DAILY [facility] Last Admin: 12/07/16 09:36 Dose: 5 mg Aspirin (Aspirin Chewable) 81 mg GT DAILY [facility] Last Admin: 12/07/16 09:36 Dose: 81 mg Aspirin (Aspirin Chewable) 81 mg GT DAILY [facility] Last Admin: 12/07/16 09:37 Dose: Not Given Ciprofloxacin (Cipro 400mg/200ml Dsw) 200 mls @ 133 mls/hr IVPB Q12H [facility] Last Admin: 12/07/16 16:30 Dose: 133 mls/hr Pantoprazole Sodium (Protonix Susp) 40 mg GT DAILY [facility] Last Admin: 12/07/16 09:36 Dose: 40 mg Rosuvastatin Calcium (Crestor) 5 mg GT HS [facility] Last Admin: 12/07/16 22:00 Dose: 5 mg Saccharomyces Boulardii (Florastor) 250 mg PO BID [facility] Last Admin: 12/07/16 17:53 Dose: 250 mg - Labs Labs: 12/07/16 07:53 12/07/16 07:53 PT 12.9 SECONDS (9.7-12.2) H 11/15/16 13:58 INR 1.2 11/15/16 13:58 APTT 39 SECONDS (21-34) H 11/15/16 13:58 Attending/Attestation - Attestation I have personally seen and examined this patient.: Yes I have fully participated in the care of the patient.: Yes I have reviewed all pertinent clinical information, including history, physical exam and plan: Yes Notes (Text): Patient seen, examined, and case discussed with day-time resident. Patient seen, examined this morning. no family at bedside. Patient is moving right upper and lower extremities passively, which is marked improvement and when asked to say hello, patient is able to speak it back. Patient will benefit from aggressive PT/OT. pending repeat urine studies from 12/05/16 are contaminated; ordered for repeat. Patient is currently on IV abx. Family trying to arrange for insurance for the patient at this time. Discussed with case management, will need to clarify with family the type of care patient will need include 24 hour monitoring, being taught and administer peg feedings, and will need PT/OT. Ideally, patient should go to acute rehab, but due to lack of insurance this remains a problem. Discussed with ENT, recommend [facility]Pi for gastritis and vocal cord therapy outpatient. Assessment/Plan (1) Intracranial hemorrhage Assessment & Plan: 10/18 CT Head: Left basal ganglia acute hemorrhage, possibly hypertensive with associated intraventricular hemorrhage and mass effect upon the left lateral aspect of the 3rd ventricle with the tip shift of the 3rd ventricle towards the right side. No generalized midline shift. Air-fluid level in sphenoid sinus common nonspecific. Please correlate for concern regarding acute sinusitis. Mild involutional changes. 10/19 CT Head: little interval change in the known 2.0 x 2.7 acute hematoma in left thalamus with intra ventricular extension of hemorrhage. Interval mild worsening of obstructive hydrocephalus. 10/24 CT Head: little interval change in the size of left thalamic hemorrhage 2.4x2.9 cm with intraventricular extension of hemorrhage and mild obstructive hydrocephalus. 2 mm midline shift from left to right with no evidence of herniation. Near complete resolution of hemorrhage within 4th ventricle. 11/03/16 CT Head; Interval decrease in size and density left basal ganglia hematoma; well-circumscribed peripheral rim of low attentuation edema about hematoma; combination of brain edema and brain necrosis; intraventricular hemorrhage has diminished. Ventricles hae also decreased in size temporal horns and atria remain prominent. Persistent compression of the 3rd and left lateral ventricle * Neurosurgery per initial consult-->patient's prognosis dismal at beginning of admission * Neurology (Dr. Simpson) on board-->per 10/26 note: patient has attained maximum response from neuro point of view from this admission; keep nutritional status and avoid infectious; treat with peg/trach; no antiplatelets for next 4-6 weeks (; maintain MAP ~100) * On baby aspirin 81mg PO daily; discussed with neurology with 11/22/16 Status: Acute (2) Hypertensive emergency Assessment & Plan: * Controlled * Norvasc 5mg PO daily * monitor vital signs (3) Acute respiratory failure Assessment & Plan: * s/p tracheostomy 10/28/16 * Patient completed trach collar. * Weaning completed; off ventilator * Saturating well. * Monitor dressing change of trach site * Pulmonary (Dr. Bailey) consulted to assist with weaning protocol * Mucomyst PRN to help thin out secretions * Duonebs PRN shortness of breathe * monitor and may need suctioning PRN * Completed decannulation on 10/30/16; saturating well * Consulted speech-->patient not appropriate for speak-easy valve status post decannulation; encourage speaking * Discussed with ENT Status: resolved (4) CVA (cerebral vascular accident) Assessment & Plan: * Hemorrhagic stroke with associated hypotension and basal ganglia involvement * [id number]:5.7 * Cholestrol: 202, TG: LDL:130 HDL:52 * Aspirin 81mg PO daily * Blood pressure control monitoring * Start on Crestor 5mg POqHS * s/p peg placement; feedings via peg started on 11/17/16; monitor for residual * Patient currently on 60cc/hr with 400cc Q 8 hours of water flushes (5) Sepsis Per 11/05; Fever 103F and associated leukocytosis: 21.8; infection: pneumonia Infectious disease on board (Dr. Chavez) 10/21 Sputum-Klebsiella (sensitive to Maxipime) 10/25 Serratia and Enterobacter (sensitive to Maxipime) 10/31 Sputum: normal 11/06: Enterobacter which is sensitive Meropenem (switch from Maxipime) 11/06 Urine culture: yeast 11/09 Urine culture: yeast 11/21 Urine culture: yeast 11/26: Urine culture: Pseudomonas Blood cultures: 11/09: no growth for 5 days X2 Repeat sputum: normal kalin * Patient is currently on Ciprofloxcin 400mg IV Q12 (since 11/29/16); ordered for repeat urine culture 12/07 given prior contamination (6) Hypernatremia * Free water: 400 water Q 8hours flushes peg * sodium normalized (7) Prophylactic care * s/p peg placement * Weaned off vent; saturating well s/p decanulation * Continue with aggressive PT/OT-->latest PT noted recommending for subacute/ LTAC * Family trying to secure insurance for the patient and coordinate with case management * follow-up with dietary for further recommendations * on peg feedings/fluid flushes Disposition * Pending insurance for [facility] supervisor care facility for rehabilitation and peg feedings, will need constant monitoring. Patient currently wears mittens to prevent him from pulling on his tubes and is unsafe for home. Will need to clarify with family regarding the type of care patient will need with both patient's son and daughters.
--- NOTE | 2016-12-08 00:27 | OP ---
PROCEDURE DATE: 12/07/2016 PREOPERATIVE DIAGNOSIS: Hoarseness. POSTOPERATIVE DIAGNOSIS: Hoarseness. PROCEDURE: Flexible laryngoscopy. SIGNIFICANT FINDINGS: Vocal cords do not come together fully and there is no erythema. The patient has secretions in the throat. PROCEDURE: The patient was placed in a seated position. The flexible laryngoscope was inserted into the left nasal cavity, passed through the nasopharynx, oropharynx, hypopharynx. The pharyngeal wall s, base of tongue, vallecula, epiglottis, AE folds, false cords, true cords, piriform sinuses, aryten oids were brought into view. No masses or lesions were noted. The right nose was noted to be erythe matous. There were a lot of secretions noted in the throat. The vocal cords are mobile bilaterally; however, did not come together fully. When they came together, excessive air was escaping. Scope w as removed. The patient tolerated the procedure well. The patient has gastritis as noted by GI. Ca re gastritis as per GI, he is having reflux because of it and reflux management as for gastrointestin al. Excessive secretions, he has a PEG in place. He had hemorrhage in the head, which is probably w hy he cannot swallow normally. As far as his vocal cords go, they are not meeting in the middle. Th e patient should follow up as an outpatient to be seen for vocal cord injections. Michael Nuno MD cc: [id number] TT: 12/08/2016 00:26:23 mt
[2016-12-08] MEDS: Acetylcysteine 20% Inhal Soln (4ml) INH SCH ×4 (01:31→19:13)
[2016-12-08] MEDS: Albuterol 0.083% Inhal Sol (2.5 mg/3 mL) UD INH SCH ×4 (01:32→19:13)
[2016-12-08] MEDS: Ciprofloxacin 400mg/200ml D5W 200 ML IVPB SCH ×2 (05:11→17:40)
[2016-12-08] MEDS: Saccharomyces Boulardi 250 mg Cap PO SCH ×2 (10:15→17:39)
[2016-12-08] MEDS: Pantoprazole 40 mg Susp UD GT SCH (10:15)
--- NOTE | 2016-12-08 11:10 | CP.PCM.PN ---
<ArianneKarena - Last Filed: 12/08/16 12:03> Subjective - Date & Time of Evaluation Date of Evaluation: 12/08/16 Time of Evaluation: 11:07 - Subjective Subjective: Patient seen and examined at bedside. Patient doing well and continues to speak when asked questions. He denies chest pain, shortness of breath, nausea, vomiting, and abdominal pain. Patient continues to demonstrate ability to move both right upper and lower extremities. Per nurse case management, pending discussion with family to clarify if family member would be available to provide PEG feedings. Objective - Vital Signs/Intake and Output Vital Signs (last 24 hours): Temp Pulse Resp BP Pulse Ox 98.7 F 85 20 112/71 100 12/08/16 08:08 12/08/16 08:08 12/08/16 08:08 12/08/16 08:08 12/08/16 08:08 Intake and Output: 12/08/16 12/08/16 06:59 18:59 Intake Total 1960 Output Total 400 Balance 1560 - Medications Medications: Current Medications Acetaminophen (Tylenol 325mg Tab) 650 mg PO Q6 PRN PRN Reason: Fever >100.4 F Last Admin: 11/29/16 13:19 Dose: 650 mg Acetylcysteine (Acetylcysteine 20%) 4 ml INH Q6H [facility] Last Admin: 12/08/16 07:55 Dose: 4 ml Albuterol Sulfate (Albuterol 0.083% Inhal Kim (2.5 Mg/3 Ml) Ud) 2.5 mg INH RQ6 [facility] Last Admin: 12/08/16 07:55 Dose: 2.5 mg Amlodipine Besylate (Norvasc) 5 mg PO DAILY [facility] Last Admin: 12/08/16 10:15 Dose: 5 mg Aspirin (Aspirin Chewable) 81 mg GT DAILY [facility] Last Admin: 12/08/16 10:15 Dose: 81 mg Ciprofloxacin (Cipro 400mg/200ml Dsw) 200 mls @ 133 mls/hr IVPB Q12H [facility] Last Admin: 12/08/16 05:11 Dose: 133 mls/hr Pantoprazole Sodium (Protonix Susp) 40 mg GT DAILY [facility] Last Admin: 12/08/16 10:15 Dose: 40 mg Rosuvastatin Calcium (Crestor) 5 mg GT HS [facility] Last Admin: 12/07/16 22:00 Dose: 5 mg Saccharomyces Boulardii (Florastor) 250 mg PO BID [facility] Last Admin: 12/08/16 10:15 Dose: 250 mg - Labs Labs: 12/07/16 07:53 12/07/16 07:53 PT 12.9 SECONDS (9.7-12.2) H 11/15/16 13:58 INR 1.2 11/15/16 13:58 APTT 39 SECONDS (21-34) H 11/15/16 13:58 - Constitutional Appears: Non-toxic, No Acute Distress - Head Exam Head Exam: ATRAUMATIC, NORMAL INSPECTION, NORMOCEPHALIC - Eye Exam Eye Exam: EOMI, PERRL - ENT Exam ENT Exam: Mucous Membranes Moist - Neck Exam Neck Exam: Normal Inspection - Respiratory Exam Respiratory Exam: Clear to Ausculation Bilateral, NORMAL BREATHING PATTERN. absent: Rales, Rhonchi, Wheezes - Cardiovascular Exam Cardiovascular Exam: +S1, +S2. absent: Tachycardia - GI/Abdominal Exam GI & Abdominal Exam: Soft, Normal Bowel Sounds. absent: Tenderness - Extremities Exam Extremities Exam: Normal Inspection. 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 12/07: Demonstrates increased movement of right upper and lower extremity. 12/06: Continues to demonstrate some movement of RUE 12/03: Pt able to lift RUE a little, RLE a little 12/01: Increased ROM of RUE 11/30: Pt with increased ROM of RUE after rehab efforts of family 11/29: Trach collar with secretions, asked pulm to re-evaluate for either weaning or valve 11/28: Trach collar in place with secretions- cleaned up, respiratory informed that pt needs suctioning 11/25: Trach care being provided by nursing, secretions noted, trach collar in place 11/24: Trach collar with copious secretions, trach care as per nursing 11/23: Stable, trach collar care as per nursing, continues with copious secretions 11/22: Trach collar in place, no secretions audible this morning, cont ASA daily 11/21: Trach collar in place, secretions audible- nursing notified; ASA 81 mg daily started as per neuro 11/19: Minimal secretions at trach, stable 11/18: Trach collar in place, stable 11/17: On trach collar, stable, lots of secretions 11/16: Stable on trach collar, no changes 11/15: Stable, no changes, trach collar in place 11/14: trach collar in place 11/13: Pt still with secretions, respiratory informed and will address 11/11: Secretions continued, started duonebs and mucomyst, informed nursing to do trach care and suctioning 11/10: Pt with audible secretions on trach collar- nursing informed, OGT in place 11/09: Pt resting comfortably in bed, trach to trach collar- tolerating w/some secretions as per respiratory, OGT In place 11/08: Resting comfortably, trach in place, OGT in place, does not 11/07: Resting comfortably, trach in place 11/06: Trach in place, resting comfortably. Follows simple commands to protrude tongue and move L arm 11/05: did not follow simple commands 11/04: Continues to follows simple commands in [place] Neurology consult - Dr. Simpson advise to schedule trach and PEG. Hold antiplatelets for 4-6 weeks and maintain blood pressure above 100 systolic. Sedation as needed 10/24 CT Head: little interval change in the size of left thalamic hemorrhage 2.4x2.9 cm with intraventricular extension of hemorrhage and mild obstructive hydrocephalus. 2 mm midline shift from left to right with no evidence of herniation. Near complete resolution of hemorrhage within 4th ventricle. 10/19 CT Head: little interval change in the known 2.0 x 2.7 acute hematoma in left thalamus with intra ventricular extension of hemorrhage. Interval mild worsening of obstructive hydrocephalus. 10/18 CT Head: Left basal ganglia acute hemorrhage, possibly hypertensive with associated intraventricular hemorrhage and mass effect upon the left lateral aspect of the 3rd ventricle with the tip shift of the 3rd ventricle towards the right side. No generalized midline shift. Air-fluid level in sphenoid sinus common nonspecific. Please correlate for concern regarding acute sinusitis. Mild involutional changes. GCS - 8T (E4 VT M4) [place] II 10.0, 12% estimated non-operative mortality 11/03- CT brain w/o cont for re-evaluation of bleed w/findings of Interval decrease in size and density left basal ganglia hematoma however well- circumscribed peripheral rim of low-attenuation edema about the hematoma likely represent some combination of brain edema as well as of brain necrosis. Intraventricular hemorrhage has diminished. Ventricles have also decreased in size though the temporal horns and atria remain prominent compared to the compressed remaining ventricular system. There is persistent compression of the 3rd and left lateral ventricle Chronic white matter and basal nuclei ischemic changes. December 07- reassess pt need for anticoagulation with neurology HTN: 12/08: continues to be normotensive Amlodipine 10 mg POQD Hydralazine 25 mg PO BID - currently being held- BP WNL Losartan 100 mg POQD Labetalol 200 mg PO Q12H Respiratory failure - resolved 12/08: Pt tolerating room air- dressing over trach site C/D/I Imaging 11/08 CXR-Tracheostomy tube in place. Other lines and tubes in stable position. Mild patchy increased markings in the right infrahilar region. Biapical pleural thickening. 11/02/CXR - repeat CXR for replacement of OGT w/Support lines tubes - normally positioned No interval pathology noted 11/02 CXR - Interval improvement in the right lower lung since the previous study. Appropriate position of the right-sided PICC line with the tip is likely at the SVC right atrium junction 11/01 CXR - The in situ tracheostomy tube and NG tube positions are as before. Mild interval prominence of the right infrahilar bronchovascular markings either due to technique or subtle interval patchy infiltrate. Clinical follow- up recommended 10/31 CXR -In situ tracheostomy tube remains in good position. NGT w/tip overlying LUQ of the abdomen unchanged. Continued improvement right lung base. 10/28 CXR No focal airspace opacity 10/27 CXR No active disease 10/26 CXR - Mild venous congestion. Right hilar prominence 10/24 CXR Mild venous congestion. Mild right infrahilar prominence 10/23 CXR - Mild venous congestion. right hilar prominence. Biapical pleural thickening upper lobe granulomatous changes. lines and tubes in stable position. 10/22 CXR - Worsening consolidative changes to right mid to lower lung zone. lines and tubes in stable position. 10/20 CXR - Distal tip of an endotracheal tube terminates approximately 4.6 cm above the brisa. Left IJ approach Central venous catheter terminates at expected location of the left innominate vein. Nasogastric tube extends to expected location of the stomach 10/19 CXR New nasogastric tube extends to distal esophagus, above the diaphragm. Repositioning is advised. ET tube unchanged. No infiltrate. 10/18 CXR ET tube proximal to brisa, no acute pulmonary pathology official read pending Head of bed to 30* Keep O2 Sat >92% Dysphagia 12/07: PEG in place, tolerating tube feedings well 11/05: OGT removed due to possible contribution to fever/sepsis. Feeding tube via oropharynx replaced 11/02 after pt removed position verified by CXR Feeding tube via oropharynx replaced 11/01 Position verified by CXR NGT was advanced 10/20 - d/c'd Consulted GI- Dr. Renteria- PEG tube placement when not having fevers/ leukocytosis Anemia- stable 12/07: Hemoglobin stable at 10.2 H&H: 12.5/40.2- stable Intracranial bleed No coagulopathy Contraindication for anticoagulation Monitor Sepsis- resolved 12/06: Continue Cipro. Repeat UA (12/05): color yellow, clarity hazy, pH 6.0, sp gravity 1.019, nitrate negative, leukocyte esterase negative, WBC 2. Urine culture grew multiple species, likely contamination. Will repeat UA and culture. 12/05: Continue Cipro. Follow-up repeat UA and culture. WIll change condom catheter. 11/30-: Cont Cipro as per ID for UTI 11/29: Repeat urine cxr grew multiple species, prior urine cx pos for pseudomonas - per ID- d/c Diflucan, start Cipro 400mg Q12H 11/28: Will repeat Urine Cx tomorrow, continue Diflucan 11/25: Cont Diflucan as per ID, FU repeat Urine cx ordered today 11/24: Cont diflucan 11/23: urine cx pos for yeast again. ID informed, told to continue Diflucan. 11/22: FU urine cx- if negative, will d/c Diflucan. Pt off Merrem and vanc. 11/21: Per ID- ok to de-escalate Antibiotics- Vanc discontinued last week, Merrem discontinued today, will continue Diflucan until repeat Urine cx resulted - [place] catheter changed on 11/18 11/19: no changes, afebrile 11/18: Afebrile over last 24H, no labs today, per ID- de-escalate Abx- do not renew Vanc, will cont merrem over the weekend, then d/c on 11/21. Change the [place] catheter if urine cx still positive for yeast. 11/17: Afebrile over last 24H, no leukocytosis- stable, no changes 11/16: Afebrile over last 24H, no leukocytosis- stable, no changes 11/15: Afebrile over last 24H, no leukocytosis- stable FU Vanc trough at 1pm 11/15 11/14: Afebrile over last 24H, no leukocytosis 11/13: Afebrile, labs stable 11/12: Afebrile overnight, f/u am labs 11/11: Afebrile over last 24H, WBC down trending, now 12.3 from 12.6, per ID: resume vancomcyin; trough 10-15; and monitor wbc count FU sputum cxr- talked to lab- results will be available on 11/12- so far only normal kalin growing FU vanc trough on 11/12 before 3rd dose 11/10: Afebrile over last 24H, WBC down trending, no w 12.6 from 14.1, Blood cx neg x 4 D, repeat urine cxr pos for yeast 11/09: Afebrile over last 24H, WBC increased from 11.9 to 14.1; Blood/urine/ sputum cxr sent Vanc trough 8.4 Urine cxr pos for yeast Diflucan 200mg Q24H ordered ID consulted for adjustement of antibiotics/antifungals- awaiting recs 11/08: Afebrile over last 24H, WBC 11.9, Bands 3 11/07: Afebrile over last 24H, WBC 16.3, Bands 6 Trach asp pos for Gram neg rods Blood cxr neg x 48H 11/06: Continue to monitor WBC 11/05: Leukocytosis 21.8 from 19.4, 16.7 - trending up 11/05: Vanc trough - 5.1 Afebrile over last 24H -Started Vanco 1gm Q24H vanco through 11/02 - 5.1 11/01- apr work up sent: blood cxr, urine cxr, CXR, C diff stool Blood cxr neg x 48H urine cxr neg Bandemia 5 10/31- Trach asp cx - normal kalin 10/31 - Urine ([place]) cxr neg 10/25 Sputum cx: Serratia marcescens and Enterobactor aerogenes 10/21 Sputum cx: Klebsiella pneumoniae Hold change of antibiotics. Fully aware of the low grade temperature, and increase in WBCs. Patient is hemodynamically stable. IV Cefepime 1 gram Q8H Acetaminophen 650 mg Q6 PRN for fever ID following- Kathy- continue Merrem and Vanco due to aspiration and pos Enterobacter Aerogenes Per Micro- Enterobacter aerogenes sensitive to merrem cont merrem Per ID: increase vanc to 1gm Q12H, FU vanc peak and trough on 3rd dose, cont diflucan Vanc trough 13.8- Vanco held, no peak done due to high trough Muscular deconditioning due to being bed bound Cont PT/OT Pt and family member at bedside instructed on self-rehab exercises Monitor tracheostomy site for drainage, erythema, hematoma, signs of infection. Prophylaxis: GI - Protonix 40 mg IVP daily DVT - contraindicated 09/15 to intracranial bleed WIll re-asses VTE needs on 12/07 Dispo: Assess patient for possible transfer to LTAC or [facility] ID following Pulm following Cont condom catheter Cont general body care SW eval for possible LTAC after PEG placement PEG tube with tube feeding in place @ goal of 60 cc/hour per dietary Labs Q7days PT/OT Pt in process of being added to 's insurance SW informed that pt's family is unable to afford/provide care for pt at home Pt tolerating decannulation of tracheostomy Prostat with tube feeds ENT, Dr. Nuno, to evaluate for vocal cord dysfunction. Per evaluation, vocal cord dysfunction present as they do not come together fully. Suggests reflux management and follow-up as outpatient for vocal cord injections. Case management will be following up with family in regards to ability to provide PEG feeds if patient discharged home. <Apple Vidal V - Last Filed: 12/08/16 21:42> Objective - Vital Signs/Intake and Output Vital Signs (last 24 hours): Temp Pulse Resp BP Pulse Ox 98.6 F 87 20 115/77 100 12/08/16 17:50 12/08/16 17:50 12/08/16 17:50 12/08/16 17:50 12/08/16 17:50 Intake and Output: 12/08/16 12/09/16 18:59 06:59 Intake Total 680 Output Total 500 Balance 180 - Medications Medications: Current Medications Acetaminophen (Tylenol 325mg Tab) 650 mg PO Q6 PRN PRN Reason: Fever >100.4 F Last Admin: 11/29/16 13:19 Dose: 650 mg Acetylcysteine (Acetylcysteine 20%) 4 ml INH Q6H [facility] Last Admin: 12/08/16 19:13 Dose: 4 ml Albuterol Sulfate (Albuterol 0.083% Inhal Kim (2.5 Mg/3 Ml) Ud) 2.5 mg INH RQ6 [facility] Last Admin: 12/08/16 19:13 Dose: 2.5 mg Amlodipine Besylate (Norvasc) 5 mg PO DAILY [facility] Last Admin: 12/08/16 10:15 Dose: 5 mg Aspirin (Aspirin Chewable) 81 mg GT DAILY [facility] Last Admin: 12/08/16 10:15 Dose: 81 mg Ciprofloxacin (Cipro 400mg/200ml Dsw) 200 mls @ 133 mls/hr IVPB Q12H [facility] Last Admin: 12/08/16 17:40 Dose: 133 mls/hr Pantoprazole Sodium (Protonix Susp) 40 mg GT DAILY [facility] Last Admin: 12/08/16 10:15 Dose: 40 mg Pneumococcal Polyvalent Vaccine (Pneumovax 23 Vaccine) 0.5 ml IM .ONCE ONE Stop: 12/10/16 10:01 Rosuvastatin Calcium (Crestor) 5 mg GT HS [facility] Last Admin: 12/07/16 22:00 Dose: 5 mg Saccharomyces Boulardii (Florastor) 250 mg PO BID [facility] Last Admin: 12/08/16 17:39 Dose: 250 mg - Labs Labs: 12/07/16 07:53 12/07/16 07:53 PT 12.9 SECONDS (9.7-12.2) H 11/15/16 13:58 INR 1.2 11/15/16 13:58 APTT 39 SECONDS (21-34) H 11/15/16 13:58 Attending/Attestation - Attestation I have personally seen and examined this patient.: Yes I have fully participated in the care of the patient.: Yes I have reviewed all pertinent clinical information, including history, physical exam and plan: Yes Notes (Text): Patient seen, examined, and case discussed with day-time resident. Patient seen, examined this morning. no family at bedside. Patient is moving right upper and lower extremities passively, which is marked improvement and when asked to say hello, patient is able to speak it back; when encouraged to speak patient follows. This is markedly improvement. Patient will benefit from aggressive PT/OT. pending repeat urine studies from 12/05/16 are contaminated; ordered for repeat . Patient is currently on IV abx. Family trying to arrange for insurance for the patient at this time. Discussed with case management, will need to clarify with family the type of care patient will need include 24 hour monitoring, being taught and administer peg feedings, and will need PT/OT. Ideally, patient should go to acute rehab, but due to lack of insurance this remains a problem. Assessment/Plan (1) Intracranial hemorrhage Assessment & Plan: 10/18 CT Head: Left basal ganglia acute hemorrhage, possibly hypertensive with associated intraventricular hemorrhage and mass effect upon the left lateral aspect of the 3rd ventricle with the tip shift of the 3rd ventricle towards the right side. No generalized midline shift. Air-fluid level in sphenoid sinus common nonspecific. Please correlate for concern regarding acute sinusitis. Mild involutional changes. 10/19 CT Head: little interval change in the known 2.0 x 2.7 acute hematoma in left thalamus with intra ventricular extension of hemorrhage. Interval mild worsening of obstructive hydrocephalus. 10/24 CT Head: little interval change in the size of left thalamic hemorrhage 2.4x2.9 cm with intraventricular extension of hemorrhage and mild obstructive hydrocephalus. 2 mm midline shift from left to right with no evidence of herniation. Near complete resolution of hemorrhage within 4th ventricle. 11/03/16 CT Head; Interval decrease in size and density left basal ganglia hematoma; well-circumscribed peripheral rim of low attentuation edema about hematoma; combination of brain edema and brain necrosis; intraventricular hemorrhage has diminished. Ventricles hae also decreased in size temporal horns and atria remain prominent. Persistent compression of the 3rd and left lateral ventricle * Neurosurgery per initial consult-->patient's prognosis dismal at beginning of admission * Neurology (Dr. Simpson) on board-->per 10/26 note: patient has attained maximum response from neuro point of view from this admission; keep nutritional status and avoid infectious; treat with peg/trach; no antiplatelets for next 4-6 weeks (; maintain MAP ~100) * On baby aspirin 81mg PO daily; discussed with neurology with 11/22/16 Status: Acute (2) Hypertensive emergency Assessment & Plan: * Controlled * Norvasc 5mg PO daily * monitor vital signs (3) Acute respiratory failure Assessment & Plan: * s/p tracheostomy 10/28/16 * Patient completed trach collar. * Weaning completed; off ventilator * Saturating well. * Monitor dressing change of trach site * Pulmonary (Dr. Bailey) consulted to assist with weaning protocol * Mucomyst PRN to help thin out secretions * Duonebs PRN shortness of breathe * monitor and may need suctioning PRN * Completed decannulation on 10/30/16; saturating well * Consulted speech-->patient not appropriate for speak-easy valve status post decannulation; encourage speaking * Discussed with ENT Status: resolved (4) CVA (cerebral vascular accident) Assessment & Plan: * Hemorrhagic stroke with associated hypotension and basal ganglia involvement * [id number]:5.7 * Cholestrol: 202, TG: LDL:130 HDL:52 * Aspirin 81mg PO daily * Blood pressure control monitoring * Start on Crestor 5mg POqHS * s/p peg placement; feedings via peg started on 11/17/16; monitor for residual * Patient currently on 60cc/hr with 400cc Q 8 hours of water flushes (5) Sepsis Per 11/05; Fever 103F and associated leukocytosis: 21.8; infection: pneumonia Infectious disease on board (Dr. Chavez) 10/21 Sputum-Klebsiella (sensitive to Maxipime) 10/25 Serratia and Enterobacter (sensitive to Maxipime) 10/31 Sputum: normal 11/06: Enterobacter which is sensitive Meropenem (switch from Maxipime) 11/06 Urine culture: yeast 11/09 Urine culture: yeast 11/21 Urine culture: yeast 11/26: Urine culture: Pseudomonas Blood cultures: 11/09: no growth for 5 days X2 Repeat sputum: normal kalin * Patient is currently on Ciprofloxcin 400mg IV Q12 (since 11/29/16); ordered for repeat urine culture 12/07 given prior contamination (6) Hypernatremia * Free water: 400 water Q 8hours flushes peg * sodium normalized (7) Prophylactic care * s/p peg placement * Weaned off vent; saturating well s/p decanulation * Continue with aggressive PT/OT-->latest PT noted recommending for subacute/ LTAC * Family trying to secure insurance for the patient and coordinate with case management * follow-up with dietary for further recommendations * on peg feedings/fluid flushes Disposition * Pending insurance for assisted care facility for rehabilitation and peg feedings, will need constant monitoring. Patient currently wears mittens to prevent him from pulling on his tubes and is unsafe for home. Will need to clarify with family regarding the type of care patient will need with both patient's son and daughters.
[2016-12-09] MEDS: Acetylcysteine 20% Inhal Soln (4ml) INH SCH ×2 (01:27→07:30)
[2016-12-09] MEDS: Albuterol 0.083% Inhal Sol (2.5 mg/3 mL) UD INH SCH ×4 (01:27→19:53)
[2016-12-09] MEDS: Ciprofloxacin 400mg/200ml D5W 200 ML IVPB SCH ×2 (04:12→17:59)
[2016-12-09] MEDS: Saccharomyces Boulardi 250 mg Cap PO SCH ×2 (09:32→17:59)
[2016-12-09] MEDS: Pantoprazole 40 mg Susp UD GT SCH (09:32)
--- NOTE | 2016-12-09 16:49 | CP.PCM.PN ---
<Karena Acuña - Last Filed: 12/09/16 17:37> Subjective - Date & Time of Evaluation Date of Evaluation: 12/09/16 Time of Evaluation: 16:45 - Subjective Subjective: Patient seen and examined at bedside. Patient continues to demonstrate speech but voice is hoarse. He has increased strength of his right upper and lower extremity. Patient denies chest pain, palpitations, shortness of breath, abdominal pain, nausea, vomiting, constipation, diarrhea, and dysuria. Objective - Vital Signs/Intake and Output Vital Signs (last 24 hours): Temp Pulse Resp BP Pulse Ox 97.2 F L 95 H 20 106/67 97 12/09/16 07:36 12/09/16 07:36 12/09/16 07:36 12/09/16 07:36 12/09/16 07:36 Intake and Output: 12/09/16 12/09/16 06:59 18:59 Intake Total 880 1760 Output Total 600 1150 Balance 280 610 - Medications Medications: Current Medications Acetaminophen (Tylenol 325mg Tab) 650 mg PO Q6 PRN PRN Reason: Fever >100.4 F Last Admin: 11/29/16 13:19 Dose: 650 mg Albuterol Sulfate (Albuterol 0.083% Inhal Kim (2.5 Mg/3 Ml) Ud) 2.5 mg INH RQ6 [facility] Last Admin: 12/09/16 13:32 Dose: 2.5 mg Aspirin (Aspirin Chewable) 81 mg GT DAILY [facility] Last Admin: 12/09/16 09:32 Dose: 81 mg Ciprofloxacin (Cipro 400mg/200ml Dsw) 200 mls @ 133 mls/hr IVPB Q12H [facility] Last Admin: 12/09/16 04:12 Dose: 133 mls/hr Pantoprazole Sodium (Protonix Susp) 40 mg GT DAILY [facility] Last Admin: 12/09/16 09:32 Dose: 40 mg Pneumococcal Polyvalent Vaccine (Pneumovax 23 Vaccine) 0.5 ml IM .ONCE ONE Stop: 12/10/16 10:01 Rosuvastatin Calcium (Crestor) 5 mg GT HS [facility] Last Admin: 12/08/16 21:56 Dose: 5 mg Saccharomyces Boulardii (Florastor) 250 mg PO BID [facility] Last Admin: 12/09/16 09:32 Dose: 250 mg - Labs Labs: 12/07/16 07:53 12/07/16 07:53 PT 12.9 SECONDS (9.7-12.2) H 11/15/16 13:58 INR 1.2 11/15/16 13:58 APTT 39 SECONDS (21-34) H 11/15/16 13:58 - Constitutional Appears: Non-toxic, No Acute Distress - Head Exam Head Exam: ATRAUMATIC, NORMAL INSPECTION, NORMOCEPHALIC - Eye Exam Eye Exam: EOMI, Normal appearance, PERRL - ENT Exam ENT Exam: Mucous Membranes Moist - Neck Exam Neck Exam: Normal Inspection - Respiratory Exam Respiratory Exam: Clear to Ausculation Bilateral, NORMAL BREATHING PATTERN. absent: Rales, Rhonchi, Wheezes - Cardiovascular Exam Cardiovascular Exam: +S1, +S2. absent: Tachycardia - GI/Abdominal Exam GI & Abdominal Exam: Soft, Normal Bowel Sounds. absent: Guarding, Tenderness Additional comments: PEG site intact, no discharge or surrounding erythema - Extremities Exam Extremities Exam: Normal Inspection. 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 12/07: Demonstrates increased movement of right upper and lower extremity. 12/06: Continues to demonstrate some movement of RUE 12/03: Pt able to lift RUE a little, RLE a little 12/01: Increased ROM of RUE 11/30: Pt with increased ROM of RUE after rehab efforts of family 11/29: Trach collar with secretions, asked pulm to re-evaluate for either weaning or valve 11/28: Trach collar in place with secretions- cleaned up, respiratory informed that pt needs suctioning 11/25: Trach care being provided by nursing, secretions noted, trach collar in place 11/24: Trach collar with copious secretions, trach care as per nursing 11/23: Stable, trach collar care as per nursing, continues with copious secretions 11/22: Trach collar in place, no secretions audible this morning, cont ASA daily 11/21: Trach collar in place, secretions audible- nursing notified; ASA 81 mg daily started as per neuro 11/19: Minimal secretions at trach, stable 11/18: Trach collar in place, stable 11/17: On trach collar, stable, lots of secretions 11/16: Stable on trach collar, no changes 11/15: Stable, no changes, trach collar in place 11/14: trach collar in place 11/13: Pt still with secretions, respiratory informed and will address 11/11: Secretions continued, started duonebs and mucomyst, informed nursing to do trach care and suctioning 11/10: Pt with audible secretions on trach collar- nursing informed, OGT in place 11/09: Pt resting comfortably in bed, trach to trach collar- tolerating w/some secretions as per respiratory, OGT In place 11/08: Resting comfortably, trach in place, OGT in place, does not 11/07: Resting comfortably, trach in place 11/06: Trach in place, resting comfortably. Follows simple commands to protrude tongue and move L arm 11/05: did not follow simple commands 11/04: Continues to follows simple commands in [place] Neurology consult - Dr. Simpson advise to schedule trach and PEG. Hold antiplatelets for 4-6 weeks and maintain blood pressure above 100 systolic. Sedation as needed 10/24 CT Head: little interval change in the size of left thalamic hemorrhage 2.4x2.9 cm with intraventricular extension of hemorrhage and mild obstructive hydrocephalus. 2 mm midline shift from left to right with no evidence of herniation. Near complete resolution of hemorrhage within 4th ventricle. 10/19 CT Head: little interval change in the known 2.0 x 2.7 acute hematoma in left thalamus with intra ventricular extension of hemorrhage. Interval mild worsening of obstructive hydrocephalus. 10/18 CT Head: Left basal ganglia acute hemorrhage, possibly hypertensive with associated intraventricular hemorrhage and mass effect upon the left lateral aspect of the 3rd ventricle with the tip shift of the 3rd ventricle towards the right side. No generalized midline shift. Air-fluid level in sphenoid sinus common nonspecific. Please correlate for concern regarding acute sinusitis. Mild involutional changes. GCS - 8T (E4 VT M4) [place] II 10.0, 12% estimated non-operative mortality 11/03- CT brain w/o cont for re-evaluation of bleed w/findings of Interval decrease in size and density left basal ganglia hematoma however well- circumscribed peripheral rim of low-attenuation edema about the hematoma likely represent some combination of brain edema as well as of brain necrosis. Intraventricular hemorrhage has diminished. Ventricles have also decreased in size though the temporal horns and atria remain prominent compared to the compressed remaining ventricular system. There is persistent compression of the 3rd and left lateral ventricle Chronic white matter and basal nuclei ischemic changes. December 07- reassess pt need for anticoagulation with neurology HTN: 12/09: continues to be normotensive Amlodipine 10 mg POQD Hydralazine 25 mg PO BID - currently being held- BP WNL Losartan 100 mg POQD Labetalol 200 mg PO Q12H Respiratory failure - resolved 12/09: Pt tolerating room air- dressing over trach site C/D/I Imaging 11/08 CXR-Tracheostomy tube in place. Other lines and tubes in stable position. Mild patchy increased markings in the right infrahilar region. Biapical pleural thickening. 11/02/CXR - repeat CXR for replacement of OGT w/Support lines tubes - normally positioned No interval pathology noted 11/02 CXR - Interval improvement in the right lower lung since the previous study. Appropriate position of the right-sided PICC line with the tip is likely at the SVC right atrium junction 11/01 CXR - The in situ tracheostomy tube and NG tube positions are as before. Mild interval prominence of the right infrahilar bronchovascular markings either due to technique or subtle interval patchy infiltrate. Clinical follow- up recommended 10/31 CXR -In situ tracheostomy tube remains in good position. NGT w/tip overlying LUQ of the abdomen unchanged. Continued improvement right lung base. 10/28 CXR No focal airspace opacity 10/27 CXR No active disease 10/26 CXR - Mild venous congestion. Right hilar prominence 10/24 CXR Mild venous congestion. Mild right infrahilar prominence 10/23 CXR - Mild venous congestion. right hilar prominence. Biapical pleural thickening upper lobe granulomatous changes. lines and tubes in stable position. 10/22 CXR - Worsening consolidative changes to right mid to lower lung zone. lines and tubes in stable position. 10/20 CXR - Distal tip of an endotracheal tube terminates approximately 4.6 cm above the brisa. Left IJ approach Central venous catheter terminates at expected location of the left innominate vein. Nasogastric tube extends to expected location of the stomach 10/19 CXR New nasogastric tube extends to distal esophagus, above the diaphragm. Repositioning is advised. ET tube unchanged. No infiltrate. 10/18 CXR ET tube proximal to brisa, no acute pulmonary pathology official read pending Head of bed to 30* Keep O2 Sat >92% Dysphagia 12/09: PEG in place, tolerating tube feedings well. Will need to get in touch with family regarding PEG feedings at home to determine if patient is candidate for discharge. 11/05: OGT removed due to possible contribution to fever/sepsis. Feeding tube via oropharynx replaced 11/02 after pt removed position verified by CXR Feeding tube via oropharynx replaced 11/01 Position verified by CXR NGT was advanced 10/20 - d/c'd Consulted GI- Dr. Renteria- PEG tube placement when not having fevers/ leukocytosis Anemia- stable 12/09: Hemoglobin stable at 10.2 H&H: 12.5/40.2- stable Intracranial bleed No coagulopathy Contraindication for anticoagulation Monitor Sepsis- resolved 12/09: Urine culture preliminary- gram positive cocci 12/06: Continue Cipro. Repeat UA (12/05): color yellow, clarity hazy, pH 6.0, sp gravity 1.019, nitrate negative, leukocyte esterase negative, WBC 2. Urine culture grew multiple species, likely contamination. Will repeat UA and culture. 12/05: Continue Cipro. Follow-up repeat UA and culture. WIll change condom catheter. 11/30-: Cont Cipro as per ID for UTI 11/29: Repeat urine cxr grew multiple species, prior urine cx pos for pseudomonas - per ID- d/c Diflucan, start Cipro 400mg Q12H 11/28: Will repeat Urine Cx tomorrow, continue Diflucan 11/25: Cont Diflucan as per ID, FU repeat Urine cx ordered today 11/24: Cont diflucan 11/23: urine cx pos for yeast again. ID informed, told to continue Diflucan. 11/22: FU urine cx- if negative, will d/c Diflucan. Pt off Merrem and vanc. 11/21: Per ID- ok to de-escalate Antibiotics- Vanc discontinued last week, Merrem discontinued today, will continue Diflucan until repeat Urine cx resulted - [place] catheter changed on 11/18 11/19: no changes, afebrile 11/18: Afebrile over last 24H, no labs today, per ID- de-escalate Abx- do not renew Vanc, will cont merrem over the weekend, then d/c on 11/21. Change the [place] catheter if urine cx still positive for yeast. 11/17: Afebrile over last 24H, no leukocytosis- stable, no changes 11/16: Afebrile over last 24H, no leukocytosis- stable, no changes 11/15: Afebrile over last 24H, no leukocytosis- stable FU Vanc trough at 1pm 11/15 11/14: Afebrile over last 24H, no leukocytosis 11/13: Afebrile, labs stable 11/12: Afebrile overnight, f/u am labs 11/11: Afebrile over last 24H, WBC down trending, now 12.3 from 12.6, per ID: resume vancomcyin; trough 10-15; and monitor wbc count FU sputum cxr- talked to lab- results will be available on 11/12- so far only normal kalin growing FU vanc trough on 11/12 before 3rd dose 11/10: Afebrile over last 24H, WBC down trending, no w 12.6 from 14.1, Blood cx neg x 4 D, repeat urine cxr pos for yeast 11/09: Afebrile over last 24H, WBC increased from 11.9 to 14.1; Blood/urine/ sputum cxr sent Vanc trough 8.4 Urine cxr pos for yeast Diflucan 200mg Q24H ordered ID consulted for adjustement of antibiotics/antifungals- awaiting recs 11/08: Afebrile over last 24H, WBC 11.9, Bands 3 11/07: Afebrile over last 24H, WBC 16.3, Bands 6 Trach asp pos for Gram neg rods Blood cxr neg x 48H 11/06: Continue to monitor WBC 11/05: Leukocytosis 21.8 from 19.4, 16.7 - trending up 11/05: Vanc trough - 5.1 Afebrile over last 24H -Started Vanco 1gm Q24H vanco through 11/02 - 5.1 11/01- apr work up sent: blood cxr, urine cxr, CXR, C diff stool Blood cxr neg x 48H urine cxr neg Bandemia 5 10/31- Trach asp cx - normal kalin 10/31 - Urine ([place]) cxr neg 10/25 Sputum cx: Serratia marcescens and Enterobactor aerogenes 10/21 Sputum cx: Klebsiella pneumoniae Hold change of antibiotics. Fully aware of the low grade temperature, and increase in WBCs. Patient is hemodynamically stable. IV Cefepime 1 gram Q8H Acetaminophen 650 mg Q6 PRN for fever ID following- Kathy- continue Merrem and Vanco due to aspiration and pos Enterobacter Aerogenes Per Micro- Enterobacter aerogenes sensitive to merrem cont merrem Per ID: increase vanc to 1gm Q12H, FU vanc peak and trough on 3rd dose, cont diflucan Vanc trough 13.8- Vanco held, no peak done due to high trough Muscular deconditioning due to being bed bound Cont PT/OT Pt and family member at bedside instructed on self-rehab exercises Monitor tracheostomy site for drainage, erythema, hematoma, signs of infection. Prophylaxis: GI - Protonix 40 mg IVP daily DVT - contraindicated 09/15 to intracranial bleed WIll re-asses VTE needs on 12/07 Dispo: Assess patient for possible transfer to LTAC or [facility] ID following Pulm following Cont condom catheter Cont general body care SW eval for possible LTAC after PEG placement PEG tube with tube feeding in place @ goal of 60 cc/hour per dietary Labs Q7days PT/OT Pt in process of being added to 's insurance SW informed that pt's family is unable to afford/provide care for pt at home Pt tolerating decannulation of tracheostomy Prostat with tube feeds ENT, Dr. Nuno, to evaluate for vocal cord dysfunction. Per evaluation, vocal cord dysfunction present as they do not come together fully. Suggests reflux management and follow-up as outpatient for vocal cord injections. Case management will be following up with family in regards to ability to provide PEG feeds if patient discharged home. <Apple Vidal V - Last Filed: 12/09/16 19:57> Objective - Vital Signs/Intake and Output Vital Signs (last 24 hours): Temp Pulse Resp BP Pulse Ox 97.4 F L 92 H 22 120/72 98 12/09/16 15:00 04/28/17 15:00 12/09/16 15:00 12/09/16 15:00 12/09/16 15:00 Intake and Output: 12/09/16 12/10/16 18:59 06:59 Intake Total 1760 Output Total 1150 Balance 610 - Medications Medications: Current Medications Acetaminophen (Tylenol 325mg Tab) 650 mg PO Q6 PRN PRN Reason: Fever >100.4 F Last Admin: 11/29/16 13:19 Dose: 650 mg Albuterol Sulfate (Albuterol 0.083% Inhal Kim (2.5 Mg/3 Ml) Ud) 2.5 mg INH RQ6 [facility] Last Admin: 12/09/16 19:53 Dose: 2.5 mg Aspirin (Aspirin Chewable) 81 mg GT DAILY [facility] Last Admin: 12/09/16 09:32 Dose: 81 mg Pantoprazole Sodium (Protonix Susp) 40 mg GT DAILY [facility] Last Admin: 12/09/16 09:32 Dose: 40 mg Pneumococcal Polyvalent Vaccine (Pneumovax 23 Vaccine) 0.5 ml IM .ONCE ONE Stop: 12/10/16 10:01 Rosuvastatin Calcium (Crestor) 5 mg GT HS [facility] Last Admin: 12/08/16 21:56 Dose: 5 mg Saccharomyces Boulardii (Florastor) 250 mg PO BID [facility] Last Admin: 12/09/16 17:59 Dose: 250 mg - Labs Labs: 12/07/16 07:53 12/07/16 07:53 PT 12.9 SECONDS (9.7-12.2) H 11/15/16 13:58 INR 1.2 11/15/16 13:58 APTT 39 SECONDS (21-34) H 11/15/16 13:58 Attending/Attestation - Attestation I have personally seen and examined this patient.: Yes I have fully participated in the care of the patient.: Yes I have reviewed all pertinent clinical information, including history, physical exam and plan: Yes Notes (Text): Patient seen, examined, and case discussed with day-time resident. Patient seen, examined this morning. no family at bedside. Patient is moving right upper and lower extremities passively, which is marked improvement and when asked to say hello, patient is able to speak it back; when encouraged to speak patient follows. This is markedly improvement. Patient will benefit from aggressive PT/OT. pending repeat urine studies. Patient is on IV abx for urinary tract infection. Family trying to arrange for insurance for the patient at this time. Discussed with case management, will need to clarify with family the type of care patient will need include 24 hour monitoring, being taught and administer peg feedings, and will need PT/OT. Ideally, patient should go to acute rehab, but due to lack of insurance this remains a problem. Assessment/Plan (1) Intracranial hemorrhage Assessment & Plan: 10/18 CT Head: Left basal ganglia acute hemorrhage, possibly hypertensive with associated intraventricular hemorrhage and mass effect upon the left lateral aspect of the 3rd ventricle with the tip shift of the 3rd ventricle towards the right side. No generalized midline shift. Air-fluid level in sphenoid sinus common nonspecific. Please correlate for concern regarding acute sinusitis. Mild involutional changes. 10/19 CT Head: little interval change in the known 2.0 x 2.7 acute hematoma in left thalamus with intra ventricular extension of hemorrhage. Interval mild worsening of obstructive hydrocephalus. 10/24 CT Head: little interval change in the size of left thalamic hemorrhage 2.4x2.9 cm with intraventricular extension of hemorrhage and mild obstructive hydrocephalus. 2 mm midline shift from left to right with no evidence of herniation. Near complete resolution of hemorrhage within 4th ventricle. 11/03/16 CT Head; Interval decrease in size and density left basal ganglia hematoma; well-circumscribed peripheral rim of low attentuation edema about hematoma; combination of brain edema and brain necrosis; intraventricular hemorrhage has diminished. Ventricles hae also decreased in size temporal horns and atria remain prominent. Persistent compression of the 3rd and left lateral ventricle * Neurosurgery per initial consult-->patient's prognosis dismal at beginning of admission * Neurology (Dr. Simpson) on board-->per 10/26 note: patient has attained maximum response from neuro point of view from this admission; keep nutritional status and avoid infectious; treat with peg/trach; no antiplatelets for next 4-6 weeks (; maintain MAP ~100) * On baby aspirin 81mg PO daily; discussed with neurology with 11/22/16 Status: Acute (2) Hypertensive emergency Assessment & Plan: * Controlled * Norvasc 5mg PO daily * monitor vital signs (3) Acute respiratory failure Assessment & Plan: * s/p tracheostomy 10/28/16 * Patient completed trach collar. * Weaning completed; off ventilator * Saturating well. * Monitor dressing change of trach site * Pulmonary (Dr. Bailey) consulted to assist with weaning protocol * Mucomyst PRN to help thin out secretions * Duonebs PRN shortness of breathe * monitor and may need suctioning PRN * Completed decannulation on 10/30/16; saturating well * Consulted speech-->patient not appropriate for speak-easy valve status post decannulation; encourage speaking * Discussed with ENT Status: resolved (4) CVA (cerebral vascular accident) Assessment & Plan: * Hemorrhagic stroke with associated hypotension and basal ganglia involvement * [id number]:5.7 * Cholestrol: 202, TG: LDL:130 HDL:52 * Aspirin 81mg PO daily * Blood pressure control monitoring * Start on Crestor 5mg POqHS * s/p peg placement; feedings via peg started on 11/17/16; monitor for residual * Patient currently on 60cc/hr with 400cc Q 8 hours of water flushes (5) Sepsis Assessment & Plan: Per 11/05; Fever 103F and associated leukocytosis: 21.8; infection: pneumonia Infectious disease on board (Dr. Chavez) 10/21 Sputum-Klebsiella (sensitive to Maxipime) 10/25 Serratia and Enterobacter (sensitive to Maxipime) 10/31 Sputum: normal 11/06: Enterobacter which is sensitive Meropenem (switch from Maxipime) 11/06 Urine culture: yeast 11/09 Urine culture: yeast 11/21 Urine culture: yeast 11/26: Urine culture: Pseudomonas Blood cultures: 11/09: no growth for 5 days X2 Repeat sputum: normal kalin * Patient is currently on Ciprofloxcin 400mg IV Q12 (since 11/29/16); ordered for repeat urine culture 12/07 given prior contamination (6) Hypernatremia * Free water: 400 water Q 8hours flushes peg * sodium normalized (7) Prophylactic care * s/p peg placement * Weaned off vent; saturating well s/p decanulation * Continue with aggressive PT/OT-->latest PT noted recommending for subacute/ LTAC * Family trying to secure insurance for the patient and coordinate with case management * follow-up with dietary for further recommendations * on peg feedings/fluid flushes Disposition * Pending insurance for [facility] care facility for rehabilitation and peg feedings, will need constant monitoring. Patient currently wears mittens to prevent him from pulling on his tubes and is unsafe for home. Will need to clarify with family regarding the type of care patient will need with both patient's son and daughters.
--- NOTE | 2016-12-10 01:20 | CP.PCM.PN ---
Addendum entered and electronically signed by Karena Acuña DO 12/10/16 11: 33: Urine Culture: grew VRE, sensitive to Tigecycline. Will inform ID, Dr. Chavez. Plan to change [place] condom catheter. Original Note: <Oh Costa - Last Filed: 12/10/16 01:16> Subjective - Date & Time of Evaluation Date of Evaluation: 12/10/16 Time of Evaluation: 01:16 - Subjective Subjective: PGY-1 medicine Progress Note for Dr. Vidal Patient seen and examined at bedside. No acute event overnight. Patient resting in bed comfortably. Patient has a hoarse voice. Patietn is able to use his right sided extremities. Denies fever/chills, cp, palpitations, SOB, abd pain, n /v/d and constipation. Objective - Vital Signs/Intake and Output Vital Signs (last 24 hours): Temp Pulse Resp BP Pulse Ox 97.7 F 95 H 20 126/76 97 12/09/16 23:35 12/09/16 23:35 12/09/16 23:35 12/09/16 23:35 12/09/16 23:35 Intake and Output: 12/09/16 12/10/16 18:59 06:59 Intake Total 1760 200 Output Total 1150 200 Balance 610 0 - Medications Medications: Current Medications Acetaminophen (Tylenol 325mg Tab) 650 mg PO Q6 PRN PRN Reason: Fever >100.4 F Last Admin: 11/29/16 13:19 Dose: 650 mg Albuterol Sulfate (Albuterol 0.083% Inhal Kim (2.5 Mg/3 Ml) Ud) 2.5 mg INH RQ6 [facility] Last Admin: 12/09/16 19:53 Dose: 2.5 mg Aspirin (Aspirin Chewable) 81 mg GT DAILY [facility] Last Admin: 12/09/16 09:32 Dose: 81 mg Pantoprazole Sodium (Protonix Susp) 40 mg GT DAILY [facility] Last Admin: 12/09/16 09:32 Dose: 40 mg Pneumococcal Polyvalent Vaccine (Pneumovax 23 Vaccine) 0.5 ml IM .ONCE ONE Stop: 12/10/16 10:01 Rosuvastatin Calcium (Crestor) 5 mg GT HS [facility] Last Admin: 12/09/16 21:48 Dose: 5 mg Saccharomyces Boulardii (Florastor) 250 mg PO BID [facility] Last Admin: 12/09/16 17:59 Dose: 250 mg - Labs Labs: 12/07/16 07:53 12/07/16 07:53 PT 12.9 SECONDS (9.7-12.2) H 11/15/16 13:58 INR 1.2 11/15/16 13:58 APTT 39 SECONDS (21-34) H 11/15/16 13:58 - Constitutional Appears: Non-toxic, No Acute Distress - Head Exam Head Exam: ATRAUMATIC, NORMOCEPHALIC - Eye Exam Eye Exam: EOMI, Normal appearance Pupil Exam: PERRL - ENT Exam ENT Exam: Mucous Membranes Moist - Respiratory Exam Respiratory Exam: Clear to Ausculation Bilateral, NORMAL BREATHING PATTERN - Cardiovascular Exam Cardiovascular Exam: REGULAR RHYTHM, +S1, +S2 - GI/Abdominal Exam GI & Abdominal Exam: Soft, Normal Bowel Sounds. 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 12/07: Demonstrates increased movement of right upper and lower extremity. 12/06: Continues to demonstrate some movement of RUE 12/03: Pt able to lift RUE a little, RLE a little 12/01: Increased ROM of RUE 11/30: Pt with increased ROM of RUE after rehab efforts of family 11/29: Trach collar with secretions, asked pulm to re-evaluate for either weaning or valve 11/28: Trach collar in place with secretions- cleaned up, respiratory informed that pt needs suctioning 11/25: Trach care being provided by nursing, secretions noted, trach collar in place 11/24: Trach collar with copious secretions, trach care as per nursing 11/23: Stable, trach collar care as per nursing, continues with copious secretions 11/22: Trach collar in place, no secretions audible this morning, cont ASA daily 11/21: Trach collar in place, secretions audible- nursing notified; ASA 81 mg daily started as per neuro 11/19: Minimal secretions at trach, stable 11/18: Trach collar in place, stable 11/17: On trach collar, stable, lots of secretions 11/16: Stable on trach collar, no changes 11/15: Stable, no changes, trach collar in place 11/14: trach collar in place 11/13: Pt still with secretions, respiratory informed and will address 11/11: Secretions continued, started duonebs and mucomyst, informed nursing to do trach care and suctioning 11/10: Pt with audible secretions on trach collar- nursing informed, OGT in place 11/09: Pt resting comfortably in bed, trach to trach collar- tolerating w/some secretions as per respiratory, OGT In place 11/08: Resting comfortably, trach in place, OGT in place, does not 11/07: Resting comfortably, trach in place 11/06: Trach in place, resting comfortably. Follows simple commands to protrude tongue and move L arm 11/05: did not follow simple commands 11/04: Continues to follows simple commands in [place] Neurology consult - Dr. Simpson advise to schedule trach and PEG. Hold antiplatelets for 4-6 weeks and maintain blood pressure above 100 systolic. Sedation as needed 10/24 CT Head: little interval change in the size of left thalamic hemorrhage 2.4x2.9 cm with intraventricular extension of hemorrhage and mild obstructive hydrocephalus. 2 mm midline shift from left to right with no evidence of herniation. Near complete resolution of hemorrhage within 4th ventricle. 10/19 CT Head: little interval change in the known 2.0 x 2.7 acute hematoma in left thalamus with intra ventricular extension of hemorrhage. Interval mild worsening of obstructive hydrocephalus. 10/18 CT Head: Left basal ganglia acute hemorrhage, possibly hypertensive with associated intraventricular hemorrhage and mass effect upon the left lateral aspect of the 3rd ventricle with the tip shift of the 3rd ventricle towards the right side. No generalized midline shift. Air-fluid level in sphenoid sinus common nonspecific. Please correlate for concern regarding acute sinusitis. Mild involutional changes. GCS - 8T (E4 VT M4) SOKAOGON II 10.0, 12% estimated non-operative mortality 11/03- CT brain w/o cont for re-evaluation of bleed w/findings of Interval decrease in size and density left basal ganglia hematoma however well- circumscribed peripheral rim of low-attenuation edema about the hematoma likely represent some combination of brain edema as well as of brain necrosis. Intraventricular hemorrhage has diminished. Ventricles have also decreased in size though the temporal horns and atria remain prominent compared to the compressed remaining ventricular system. There is persistent compression of the 3rd and left lateral ventricle Chronic white matter and basal nuclei ischemic changes. December 07- reassess pt need for anticoagulation with neurology HTN: Amlodipine 10 mg POQD Hydralazine 25 mg PO BID - currently being held- BP WNL Losartan 100 mg POQD Labetalol 200 mg PO Q12H Respiratory failure - resolved 12/10: Pt tolerating room air- dressing over trach site C/D/I Imaging 11/08 CXR-Tracheostomy tube in place. Other lines and tubes in stable position. Mild patchy increased markings in the right infrahilar region. Biapical pleural thickening. 11/02/CXR - repeat CXR for replacement of OGT w/Support lines tubes - normally positioned No interval pathology noted 11/02 CXR - Interval improvement in the right lower lung since the previous study. Appropriate position of the right-sided PICC line with the tip is likely at the SVC right atrium junction 11/01 CXR - The in situ tracheostomy tube and NG tube positions are as before. Mild interval prominence of the right infrahilar bronchovascular markings either due to technique or subtle interval patchy infiltrate. Clinical follow- up recommended 10/31 CXR -In situ tracheostomy tube remains in good position. NGT w/tip overlying LUQ of the abdomen unchanged. Continued improvement right lung base. 10/28 CXR No focal airspace opacity 10/27 CXR No active disease 10/26 CXR - Mild venous congestion. Right hilar prominence 10/24 CXR Mild venous congestion. Mild right infrahilar prominence 10/23 CXR - Mild venous congestion. right hilar prominence. Biapical pleural thickening upper lobe granulomatous changes. lines and tubes in stable position. 10/22 CXR - Worsening consolidative changes to right mid to lower lung zone. lines and tubes in stable position. 10/20 CXR - Distal tip of an endotracheal tube terminates approximately 4.6 cm above the brisa. Left IJ approach Central venous catheter terminates at expected location of the left innominate vein. Nasogastric tube extends to expected location of the stomach 10/19 CXR New nasogastric tube extends to distal esophagus, above the diaphragm. Repositioning is advised. ET tube unchanged. No infiltrate. 10/18 CXR ET tube proximal to brisa, no acute pulmonary pathology official read pending Head of bed to 30* Keep O2 Sat >92% Dysphagia 12/10: DC planning 12/09: PEG in place, tolerating tube feedings well. Will need to get in touch with family regarding PEG feedings at home to determine if patient is candidate for discharge. 11/05: OGT removed due to possible contribution to fever/sepsis. Feeding tube via oropharynx replaced 11/02 after pt removed position verified by CXR Feeding tube via oropharynx replaced 11/01 Position verified by CXR NGT was advanced 10/20 - d/c'd Consulted GI- Dr. Renteria- PEG tube placement when not having fevers/ leukocytosis Anemia- stable 12/10: Hemoglobin stable Intracranial bleed No coagulopathy Contraindication for anticoagulation Monitor Sepsis- resolved 12/09: Urine culture preliminary- gram positive cocci 12/06: Continue Cipro. Repeat UA (12/05): color yellow, clarity hazy, pH 6.0, sp gravity 1.019, nitrate negative, leukocyte esterase negative, WBC 2. Urine culture grew multiple species, likely contamination. Will repeat UA and culture. 12/05: Continue Cipro. Follow-up repeat UA and culture. WIll change condom catheter. 11/30-: Cont Cipro as per ID for UTI 11/29: Repeat urine cxr grew multiple species, prior urine cx pos for pseudomonas - per ID- d/c Diflucan, start Cipro 400mg Q12H 11/28: Will repeat Urine Cx tomorrow, continue Diflucan 11/25: Cont Diflucan as per ID, FU repeat Urine cx ordered today 11/24: Cont diflucan 11/23: urine cx pos for yeast again. ID informed, told to continue Diflucan. 11/22: FU urine cx- if negative, will d/c Diflucan. Pt off Merrem and vanc. 11/21: Per ID- ok to de-escalate Antibiotics- Vanc discontinued last week, Merrem discontinued today, will continue Diflucan until repeat Urine cx resulted - [place] catheter changed on 11/18 11/19: no changes, afebrile 11/18: Afebrile over last 24H, no labs today, per ID- de-escalate Abx- do not renew Vanc, will cont merrem over the weekend, then d/c on 11/21. Change the [place] catheter if urine cx still positive for yeast. 11/17: Afebrile over last 24H, no leukocytosis- stable, no changes 11/16: Afebrile over last 24H, no leukocytosis- stable, no changes 11/15: Afebrile over last 24H, no leukocytosis- stable FU Vanc trough at 1pm 11/15 11/14: Afebrile over last 24H, no leukocytosis 11/13: Afebrile, labs stable 11/12: Afebrile overnight, f/u am labs 11/11: Afebrile over last 24H, WBC down trending, now 12.3 from 12.6, per ID: resume vancomcyin; trough 10-15; and monitor wbc count FU sputum cxr- talked to lab- results will be available on 11/12- so far only normal kalin growing FU vanc trough on 11/12 before 3rd dose 11/10: Afebrile over last 24H, WBC down trending, no w 12.6 from 14.1, Blood cx neg x 4 D, repeat urine cxr pos for yeast 11/09: Afebrile over last 24H, WBC increased from 11.9 to 14.1; Blood/urine/ sputum cxr sent Vanc trough 8.4 Urine cxr pos for yeast Diflucan 200mg Q24H ordered ID consulted for adjustement of antibiotics/antifungals- awaiting recs 11/08: Afebrile over last 24H, WBC 11.9, Bands 3 11/07: Afebrile over last 24H, WBC 16.3, Bands 6 Trach asp pos for Gram neg rods Blood cxr neg x 48H 11/06: Continue to monitor WBC 11/05: Leukocytosis 21.8 from 19.4, 16.7 - trending up 11/05: Vanc trough - 5.1 Afebrile over last 24H -Started Vanco 1gm Q24H vanco through 11/02 - 5.1 11/01- apr work up sent: blood cxr, urine cxr, CXR, C diff stool Blood cxr neg x 48H urine cxr neg Bandemia 5 10/31- Trach asp cx - normal kalin 10/31 - Urine ([place]) cxr neg 10/25 Sputum cx: Serratia marcescens and Enterobactor aerogenes 10/21 Sputum cx: Klebsiella pneumoniae Hold change of antibiotics. Fully aware of the low grade temperature, and increase in WBCs. Patient is hemodynamically stable. IV Cefepime 1 gram Q8H Acetaminophen 650 mg Q6 PRN for fever ID following- Kathy- continue Merrem and Vanco due to aspiration and pos Enterobacter Aerogenes Per Micro- Enterobacter aerogenes sensitive to merrem cont merrem Per ID: increase vanc to 1gm Q12H, FU vanc peak and trough on 3rd dose, cont diflucan Vanc trough 13.8- Vanco held, no peak done due to high trough Muscular deconditioning due to being bed bound Cont PT/OT Pt and family member at bedside instructed on self-rehab exercises Monitor tracheostomy site for drainage, erythema, hematoma, signs of infection. Prophylaxis: GI - Protonix 40 mg IVP daily DVT - contraindicated 09/15 to intracranial bleed WIll re-asses VTE needs on 12/07 Dispo: Assess patient for possible transfer to LTAC or [facility] ID following Pulm following Cont condom catheter Cont general body care SW eval for possible LTAC after PEG placement PEG tube with tube feeding in place @ goal of 60 cc/hour per dietary Labs Q7days PT/OT Pt in process of being added to 's insurance SW informed that pt's family is unable to afford/provide care for pt at home Pt tolerating decannulation of tracheostomy Prostat with tube feeds ENT, Dr. Nuno, to evaluate for vocal cord dysfunction. Per evaluation, vocal cord dysfunction present as they do not come together fully. Suggests reflux management and follow-up as outpatient for vocal cord injections. Case management will be following up with family in regards to ability to provide PEG feeds if patient discharged home. <Johny Saldana - Last Filed: 12/10/16 11:59> Objective - Vital Signs/Intake and Output Vital Signs (last 24 hours): Temp Pulse Resp BP Pulse Ox 98.1 F 88 20 118/76 100 12/10/16 07:44 12/10/16 07:44 12/10/16 07:44 12/10/16 07:44 12/10/16 07:44 Intake and Output: 12/10/16 12/10/16 06:59 18:59 Intake Total 680 Output Total 500 Balance 180 - Medications Medications: Current Medications Acetaminophen (Tylenol 325mg Tab) 650 mg PO Q6 PRN PRN Reason: Fever >100.4 F Last Admin: 11/29/16 13:19 Dose: 650 mg Albuterol Sulfate (Albuterol 0.083% Inhal Kim (2.5 Mg/3 Ml) Ud) 2.5 mg INH RQ6 [facility] Last Admin: 12/10/16 08:51 Dose: 2.5 mg Aspirin (Aspirin Chewable) 81 mg GT DAILY [facility] Last Admin: 12/10/16 10:06 Dose: 81 mg Pantoprazole Sodium (Protonix Susp) 40 mg GT DAILY [facility] Last Admin: 12/10/16 10:06 Dose: 40 mg Rosuvastatin Calcium (Crestor) 5 mg GT HS [facility] Last Admin: 12/09/16 21:48 Dose: 5 mg Saccharomyces Boulardii (Florastor) 250 mg PO BID [facility] Last Admin: 12/10/16 10:05 Dose: 250 mg - Labs Labs: 12/07/16 07:53 12/07/16 07:53 PT 12.9 SECONDS (9.7-12.2) H 11/15/16 13:58 INR 1.2 11/15/16 13:58 APTT 39 SECONDS (21-34) H 11/15/16 13:58 Attending/Attestation - Attestation I have personally seen and examined this patient.: Yes I have fully participated in the care of the patient.: Yes I have reviewed all pertinent clinical information, including history, physical exam and plan: Yes Notes (Text): 12/10/16 11:58 Medical Attending: Patient was seen and examined by me. Agree with the above note by the resident - the urine is now growing out VRE. Need the cather changed again and will reach out to ID. In other news, the patient is very alert - and he understands basic commands in [place]. He denied chest pain, denied abodminal pain, and denied respiratory difficulties. He lifted his arms bilaterally as well as legs bilaterally. I am really glad for him and hopefully will progress further. thank you Johny Saldana
[2016-12-10] MEDS: Albuterol 0.083% Inhal Sol (2.5 mg/3 mL) UD INH SCH ×4 (01:45→20:22)
[2016-12-10] MEDS ORDERED: Pneumococcal 23-Valent Vaccine IM ONE (10:00)
[2016-12-10] MEDS: Saccharomyces Boulardi 250 mg Cap PO SCH ×2 (10:05→18:36)
[2016-12-10] MEDS: Pantoprazole 40 mg Susp UD GT SCH (10:06)
--- NOTE | 2016-12-11 02:09 | CP.PCM.PN ---
<JulissaOh - Last Filed: 12/11/16 02:12> Subjective - Date & Time of Evaluation Date of Evaluation: 12/11/16 Time of Evaluation: 02:06 - Subjective Subjective: PGY-1 Medicine Progress Note for Dr. Vidal Patient seen and examined at bedside. No acute event overnight. Patient resting in bed comfortably. He can use his right sided extremities. Urine culture grew VRE so tygacil started and [place] catheter ordered. Denies fever/chills, cp, palpitations, SOB, abd pain, n/v/d and constipation. Objective - Vital Signs/Intake and Output Vital Signs (last 24 hours): Temp Pulse Resp BP Pulse Ox 98 F 101 H 20 126/84 99 12/10/16 23:57 12/10/16 23:57 12/10/16 23:57 12/10/16 23:57 12/10/16 23:57 Intake and Output: 12/10/16 12/11/16 18:59 06:59 Intake Total 880 880 Output Total 500 500 Balance 380 380 - Medications Medications: Current Medications Acetaminophen (Tylenol 325mg Tab) 650 mg PO Q6 PRN PRN Reason: Fever >100.4 F Last Admin: 11/29/16 13:19 Dose: 650 mg Albuterol Sulfate (Albuterol 0.083% Inhal Kim (2.5 Mg/3 Ml) Ud) 2.5 mg INH RQ6 [facility] Last Admin: 12/10/16 20:22 Dose: 2.5 mg Aspirin (Aspirin Chewable) 81 mg GT DAILY [facility] Last Admin: 12/10/16 10:06 Dose: 81 mg Tigecycline 50 mg/ Sodium (Chloride) 50 mls @ 50 mls/hr IVPB Q12H [facility] Pantoprazole Sodium (Protonix Susp) 40 mg GT DAILY [facility] Last Admin: 12/10/16 10:06 Dose: 40 mg Rosuvastatin Calcium (Crestor) 5 mg GT HS [facility] Last Admin: 12/10/16 22:02 Dose: 5 mg Saccharomyces Boulardii (Florastor) 250 mg PO BID [facility] Last Admin: 12/10/16 18:36 Dose: 250 mg - Labs Labs: 12/07/16 07:53 12/07/16 07:53 PT 12.9 SECONDS (9.7-12.2) H 11/15/16 13:58 INR 1.2 11/15/16 13:58 APTT 39 SECONDS (21-34) H 11/15/16 13:58 - Constitutional Appears: No Acute Distress - Head Exam Head Exam: ATRAUMATIC, NORMOCEPHALIC - Eye Exam Eye Exam: EOMI, Normal appearance Pupil Exam: PERRL - ENT Exam ENT Exam: Mucous Membranes Moist - Neck Exam Neck Exam: Normal Inspection - Respiratory Exam Respiratory Exam: Clear to Ausculation Bilateral, NORMAL BREATHING PATTERN - Cardiovascular Exam Cardiovascular Exam: Tachycardia, REGULAR RHYTHM, +S1, +S2 - GI/Abdominal Exam GI & Abdominal Exam: Soft, Normal Bowel Sounds. absent: Tenderness Additional comments: PEG tube functioning properly - Extremities Exam Extremities Exam: Normal Capillary Refill - Back Exam Back Exam: absent: CVA tenderness (L), CVA tenderness (R) - Neurological Exam Neurological Exam: Alert, Awake Neuro motor strength exam: Left Upper Extremity: 5, Right Upper Extremity: 3, Left Lower Extremity: 5, Right Lower Extremity: 3 - Psychiatric Exam Psychiatric exam: Normal Affect, Normal Mood - Skin Skin Exam: Dry, Intact, Normal Color, Warm Assessment and Plan - Assessment and Plan (Free Text) Plan: UTI 12/11: Urine Culture grew VRE, sensitive to Tigecycline. ID, Dr. Chavez, is aware. [place] condom catheter placed. 12/09: Urine culture preliminary- gram positive cocci 12/06: Continue Cipro. Repeat UA (12/05): color yellow, clarity hazy, pH 6.0, sp gravity 1.019, nitrate negative, leukocyte esterase negative, WBC 2. Urine culture grew multiple species, likely contamination. Will repeat UA and culture. 12/05: Continue Cipro. Follow-up repeat UA and culture. WIll change condom catheter. 11/30-: Cont Cipro as per ID for UTI 11/29: Repeat urine cxr grew multiple species, prior urine cx pos for pseudomonas - per ID- d/c Diflucan, start Cipro 400mg Q12H 11/28: Will repeat Urine Cx tomorrow, continue Diflucan 11/25: Cont Diflucan as per ID, FU repeat Urine cx ordered today 11/24: Cont diflucan 11/23: urine cx pos for yeast again. ID informed, told to continue Diflucan. 11/22: FU urine cx- if negative, will d/c Diflucan. Pt off Merrem and vanc. 11/21: Per ID- ok to de-escalate Antibiotics- Vanc discontinued last week, Merrem discontinued today, will continue Diflucan until repeat Urine cx resulted - [place] catheter changed on 11/18 11/19: no changes, afebrile 11/18: Afebrile over last 24H, no labs today, per ID- de-escalate Abx- do not renew Vanc, will cont merrem over the weekend, then d/c on 11/21. Change the [place] catheter if urine cx still positive for yeast. 11/17: Afebrile over last 24H, no leukocytosis- stable, no changes 11/16: Afebrile over last 24H, no leukocytosis- stable, no changes 11/15: Afebrile over last 24H, no leukocytosis- stable FU Vanc trough at 1pm 11/15 11/14: Afebrile over last 24H, no leukocytosis 11/13: Afebrile, labs stable 11/12: Afebrile overnight, f/u am labs 11/11: Afebrile over last 24H, WBC down trending, now 12.3 from 12.6, per ID: resume vancomcyin; trough 10-15; and monitor wbc count FU sputum cxr- talked to lab- results will be available on 11/12- so far only normal kalin growing FU vanc trough on 11/12 before 3rd dose 11/10: Afebrile over last 24H, WBC down trending, no w 12.6 from 14.1, Blood cx neg x 4 D, repeat urine cxr pos for yeast 11/09: Afebrile over last 24H, WBC increased from 11.9 to 14.1; Blood/urine/ sputum cxr sent Vanc trough 8.4 Urine cx pos for yeast Diflucan 200mg Q24H ordered ID consulted for adjustement of antibiotics/antifungals- awaiting recs 11/08: Afebrile over last 24H, WBC 11.9, Bands 3 11/07: Afebrile over last 24H, WBC 16.3, Bands 6 Trach asp pos for Gram neg rods Blood cxr neg x 48H 11/06: Continue to monitor WBC 11/05: Leukocytosis 21.8 from 19.4, 16.7 - trending up 11/05: Vanc trough - 5.1 Afebrile over last 24H -Started Vanco 1gm Q24H vanco through 11/02 - 5.1 11/01- apr work up sent: blood cxr, urine cxr, CXR, C diff stool Blood cxr neg x 48H urine cxr neg Bandemia 5 10/31- Trach asp cx - normal kalin 10/31 - Urine ([place]) cxr neg 10/25 Sputum cx: Serratia marcescens and Enterobactor aerogenes 10/21 Sputum cx: Klebsiella pneumoniae Hold change of antibiotics. Fully aware of the low grade temperature, and increase in WBCs. Patient is hemodynamically stable. 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 12/07: Demonstrates increased movement of right upper and lower extremity. 12/06: Continues to demonstrate some movement of RUE 12/03: Pt able to lift RUE a little, RLE a little 12/01: Increased ROM of RUE 11/30: Pt with increased ROM of RUE after rehab efforts of family 11/29: Trach collar with secretions, asked pulm to re-evaluate for either weaning or valve 11/28: Trach collar in place with secretions- cleaned up, respiratory informed that pt needs suctioning 11/25: Trach care being provided by nursing, secretions noted, trach collar in place 11/24: Trach collar with copious secretions, trach care as per nursing 11/23: Stable, trach collar care as per nursing, continues with copious secretions 11/22: Trach collar in place, no secretions audible this morning, cont ASA daily 11/21: Trach collar in place, secretions audible- nursing notified; ASA 81 mg daily started as per neuro 11/19: Minimal secretions at trach, stable 11/18: Trach collar in place, stable 4/6: On trach collar, stable, lots of secretions 11/16: Stable on trach collar, no changes 11/15: Stable, no changes, trach collar in place 11/14: trach collar in place 11/13: Pt still with secretions, respiratory informed and will address 11/11: Secretions continued, started duonebs and mucomyst, informed nursing to do trach care and suctioning 11/10: Pt with audible secretions on trach collar- nursing informed, OGT in place 11/09: Pt resting comfortably in bed, trach to trach collar- tolerating w/some secretions as per respiratory, OGT In place 11/08: Resting comfortably, trach in place, OGT in place, does not 11/07: Resting comfortably, trach in place 11/06: Trach in place, resting comfortably. Follows simple commands to protrude tongue and move L arm 11/05: did not follow simple commands 11/04: Continues to follows simple commands in [place] Neurology consult - Dr. Simpson advise to schedule trach and PEG. Hold antiplatelets for 4-6 weeks and maintain blood pressure above 100 systolic. Sedation as needed 10/24 CT Head: little interval change in the size of left thalamic hemorrhage 2.4x2.9 cm with intraventricular extension of hemorrhage and mild obstructive hydrocephalus. 2 mm midline shift from left to right with no evidence of herniation. Near complete resolution of hemorrhage within 4th ventricle. 10/19 CT Head: little interval change in the known 2.0 x 2.7 acute hematoma in left thalamus with intra ventricular extension of hemorrhage. Interval mild worsening of obstructive hydrocephalus. 10/18 CT Head: Left basal ganglia acute hemorrhage, possibly hypertensive with associated intraventricular hemorrhage and mass effect upon the left lateral aspect of the 3rd ventricle with the tip shift of the 3rd ventricle towards the right side. No generalized midline shift. Air-fluid level in sphenoid sinus common nonspecific. Please correlate for concern regarding acute sinusitis. Mild involutional changes. GCS - 8T (E4 VT M4) PAI[place] OF [place] II 10.0, 12% estimated non-operative mortality 11/03- CT brain w/o cont for re-evaluation of bleed w/findings of Interval decrease in size and density left basal ganglia hematoma however well- circumscribed peripheral rim of low-attenuation edema about the hematoma likely represent some combination of brain edema as well as of brain necrosis. Intraventricular hemorrhage has diminished. Ventricles have also decreased in size though the temporal horns and atria remain prominent compared to the compressed remaining ventricular system. There is persistent compression of the 3rd and left lateral ventricle Chronic white matter and basal nuclei ischemic changes. December 07- reassess pt need for anticoagulation with neurology HTN: Amlodipine 10 mg POQD Hydralazine 25 mg PO BID - currently being held- BP WNL Losartan 100 mg POQD Labetalol 200 mg PO Q12H Respiratory failure - resolved 12/11: stable 12/10: Pt tolerating room air- dressing over trach site C/D/I Imaging 11/08 CXR-Tracheostomy tube in place. Other lines and tubes in stable position. Mild patchy increased markings in the right infrahilar region. Biapical pleural thickening. 11/02/CXR - repeat CXR for replacement of OGT w/Support lines tubes - normally positioned No interval pathology noted 11/02 CXR - Interval improvement in the right lower lung since the previous study. Appropriate position of the right-sided PICC line with the tip is likely at the SVC right atrium junction 11/01 CXR - The in situ tracheostomy tube and NG tube positions are as before. Mild interval prominence of the right infrahilar bronchovascular markings either due to technique or subtle interval patchy infiltrate. Clinical follow- up recommended 10/31 CXR -In situ tracheostomy tube remains in good position. NGT w/tip overlying LUQ of the abdomen unchanged. Continued improvement right lung base. 10/28 CXR No focal airspace opacity 10/27 CXR No active disease 10/26 CXR - Mild venous congestion. Right hilar prominence 10/24 CXR Mild venous congestion. Mild right infrahilar prominence 10/23 CXR - Mild venous congestion. right hilar prominence. Biapical pleural thickening upper lobe granulomatous changes. lines and tubes in stable position. 10/22 CXR - Worsening consolidative changes to right mid to lower lung zone. lines and tubes in stable position. 10/20 CXR - Distal tip of an endotracheal tube terminates approximately 4.6 cm above the brisa. Left IJ approach Central venous catheter terminates at expected location of the left innominate vein. Nasogastric tube extends to expected location of the stomach 10/19 CXR New nasogastric tube extends to distal esophagus, above the diaphragm. Repositioning is advised. ET tube unchanged. No infiltrate. 10/18 CXR ET tube proximal to brisa, no acute pulmonary pathology official read pending Head of bed to 30* Keep O2 Sat >92% Dysphagia 12/10: DC planning 12/09: PEG in place, tolerating tube feedings well. Will need to get in touch with family regarding PEG feedings at home to determine if patient is candidate for discharge. 11/05: OGT removed due to possible contribution to fever/sepsis. Feeding tube via oropharynx replaced 11/02 after pt removed position verified by CXR Feeding tube via oropharynx replaced 11/01 Position verified by CXR NGT was advanced 10/20 - d/c'd Consulted GI- Dr. Renteria- PEG tube placement when not having fevers/ leukocytosis Anemia- stable Hemoglobin stable Intracranial bleed No coagulopathy Contraindication for anticoagulation Monitor Muscular deconditioning due to being bed bound Cont PT/OT Pt and family member at bedside instructed on self-rehab exercises Monitor tracheostomy site for drainage, erythema, hematoma, signs of infection. Prophylaxis: GI - Protonix 40 mg IVP daily DVT - contraindicated 09/15 to intracranial bleed WIll re-asses VTE needs on 12/07 Dispo: Assess patient for possible transfer to LTAC or [facility] ID following Pulm following Cont condom catheter Cont general body care SW eval for possible LTAC after PEG placement PEG tube with tube feeding in place @ goal of 60 cc/hour per dietary Labs Q7days PT/OT Pt in process of being added to 's insurance SW informed that pt's family is unable to afford/provide care for pt at home Pt tolerating decannulation of tracheostomy Prostat with tube feeds ENT, Dr. Nuno, to evaluate for vocal cord dysfunction. Per evaluation, vocal cord dysfunction present as they do not come together fully. Suggests reflux management and follow-up as outpatient for vocal cord injections. Case management will be following up with family in regards to ability to provide PEG feeds if patient discharged home. <Apple Vidal V - Last Filed: 12/11/16 14:56> Objective - Vital Signs/Intake and Output Vital Signs (last 24 hours): Temp Pulse Resp BP Pulse Ox 98.5 F 92 H 20 110/68 98 12/11/16 09:02 12/11/16 09:02 12/11/16 09:02 12/11/16 09:02 12/11/16 09:02 Intake and Output: 12/11/16 12/11/16 06:59 18:59 Intake Total 880 880 Output Total 500 1800 Balance 380 -920 - Medications Medications: Current Medications Acetaminophen (Tylenol 325mg Tab) 650 mg PO Q6 PRN PRN Reason: Fever >100.4 F Last Admin: 11/29/16 13:19 Dose: 650 mg Albuterol Sulfate (Albuterol 0.083% Inhal Kim (2.5 Mg/3 Ml) Ud) 2.5 mg INH RQ6 [facility] Last Admin: 12/11/16 13:05 Dose: 2.5 mg Aspirin (Aspirin Chewable) 81 mg GT DAILY [facility] Last Admin: 12/11/16 09:55 Dose: 81 mg Tigecycline 50 mg/ Sodium (Chloride) 50 mls @ 50 mls/hr IVPB Q12H [facility] Last Admin: 12/11/16 08:29 Dose: 50 mls/hr Pantoprazole Sodium (Protonix Susp) 40 mg GT DAILY [facility] Last Admin: 12/11/16 09:55 Dose: 40 mg Rosuvastatin Calcium (Crestor) 5 mg GT HS [facility] Last Admin: 12/10/16 22:02 Dose: 5 mg Saccharomyces Boulardii (Florastor) 250 mg PO BID [facility] Last Admin: 12/11/16 09:55 Dose: 250 mg - Labs Labs: 12/07/16 07:53 12/07/16 07:53 PT 12.9 SECONDS (9.7-12.2) H 11/15/16 13:58 INR 1.2 11/15/16 13:58 APTT 39 SECONDS (21-34) H 11/15/16 13:58 Attending/Attestation - Attestation I have personally seen and examined this patient.: Yes I have fully participated in the care of the patient.: Yes I have reviewed all pertinent clinical information, including history, physical exam and plan: Yes Notes (Text): Patient seen, examined, and case discussed with day-time resident. Patient seen, examined this morning. no family at bedside. Patient is moving right upper and lower extremities passively, which is marked improvement and when asked to say hello and will speak back. Making strides. Re-consulted PT/OT and swallow given improvements in motor function in regards to right upper/lower extremity weakness. Patient has VRE UTI; Patient started on Tigecycline IV per ID. Family trying to arrange for insurance for the patient at this time. D iscussed with case management, will need to clarify with family the type of care patient will need include 24 hour monitoring, being taught and administer peg feedings, and will need PT/OT. Ideally, patient should go to acute rehab, but due to lack of insurance this remains a problem. does not to be taught peg feedings and has not lived with patient for quite sometime. Assessment/Plan (1) Intracranial hemorrhage Assessment & Plan: 10/18 CT Head: Left basal ganglia acute hemorrhage, possibly hypertensive with associated intraventricular hemorrhage and mass effect upon the left lateral aspect of the 3rd ventricle with the tip shift of the 3rd ventricle towards the right side. No generalized midline shift. Air-fluid level in sphenoid sinus common nonspecific. Please correlate for concern regarding acute sinusitis. Mild involutional changes. 10/19 CT Head: little interval change in the known 2.0 x 2.7 acute hematoma in left thalamus with intra ventricular extension of hemorrhage. Interval mild worsening of obstructive hydrocephalus. 10/24 CT Head: little interval change in the size of left thalamic hemorrhage 2.4x2.9 cm with intraventricular extension of hemorrhage and mild obstructive hydrocephalus. 2 mm midline shift from left to right with no evidence of herniation. Near complete resolution of hemorrhage within 4th ventricle. 11/03/16 CT Head; Interval decrease in size and density left basal ganglia hematoma; well-circumscribed peripheral rim of low attentuation edema about hematoma; combination of brain edema and brain necrosis; intraventricular hemorrhage has diminished. Ventricles hae also decreased in size temporal horns and atria remain prominent. Persistent compression of the 3rd and left lateral ventricle * Neurosurgery per initial consult-->patient's prognosis dismal at beginning of admission * Neurology (Dr. Simpson) on board-->per 10/26 note: patient has attained maximum response from neuro point of view from this admission; keep nutritional status and avoid infectious; treat with peg/trach; no antiplatelets for next 4-6 weeks (; maintain MAP ~100) * On baby aspirin 81mg PO daily; discussed with neurology with 11/22/16 Status: Acute (2) Hypertensive emergency Assessment & Plan: * Controlled * Norvasc 5mg PO daily * monitor vital signs (3) Acute respiratory failure Assessment & Plan: * s/p tracheostomy 10/28/16 * Patient completed trach collar. * Weaning completed; off ventilator * Saturating well. * Monitor dressing change of trach site * Pulmonary (Dr. Bailey) consulted to assist with weaning protocol * Mucomyst PRN to help thin out secretions * Duonebs PRN shortness of breathe * monitor and may need suctioning PRN * Completed decannulation on 10/30/16; saturating well * Consulted speech-->patient not appropriate for speak-easy valve status post decannulation; encourage speaking * Discussed with ENT Status: resolved (4) CVA (cerebral vascular accident) Assessment & Plan: * Hemorrhagic stroke with associated hypotension and basal ganglia involvement * [id number]:5.7 * Cholestrol: 202, TG: LDL:130 HDL:52 * Aspirin 81mg PO daily * Blood pressure control monitoring * Start on Crestor 5mg POqHS * s/p peg placement; feedings via peg started on 11/17/16; monitor for residual * Patient currently on 60cc/hr with 400cc Q 8 hours of water flushes (5) Sepsis Assessment & Plan: Per 11/05; Fever 103F and associated leukocytosis: 21.8; infection: pneumonia Infectious disease on board (Dr. Chavez) 10/21 Sputum-Klebsiella (sensitive to Maxipime) 10/25 Serratia and Enterobacter (sensitive to Maxipime) 10/31 Sputum: normal 11/06: Enterobacter which is sensitive Meropenem (switch from Maxipime) 11/06 Urine culture: yeast 11/09 Urine culture: yeast 11/09 Blood culture: no growth for 5 days X2 11/21 Urine culture: yeast 11/26: Urine culture: Pseudomonas 12/08: Urine culture: VRE UTI * Tigecycline 50mg IV Q 12hours (active since 12/11/16) * Florastor 250mg PO bid (6) Urinary Tract Infection * 12/08/16 VRE UTI * Infectious disease (Dr. Chavez) on board * Tigecycline 50mg IV Q 12hours (active since 12/11/16) * Florastor 250mg PO bid (6) Hypernatremia * Free water: 400 water Q 8hours flushes peg * sodium normalized (7) Prophylactic care * s/p peg placement * Weaned off vent; saturating well s/p decanulation * Continue with aggressive PT/OT-->latest PT noted recommending for subacute/ LTAC * Family trying to secure insurance for the patient and coordinate with case management * follow-up with dietary for further recommendations * on peg feedings/fluid flushes * Reconsult PT/OT and swallow given improvements in motor function Disposition * Pending insurance for senior living care facility for rehabilitation and peg feedings, will need constant monitoring. Patient currently wears mittens to prevent him from pulling on his tubes and is unsafe for home. Will need to clarify with family regarding the type of care patient will need with both patient's son and daughters. * Patient will need IV abx for VRE UTI at this time. Not stable for discharge given resistant antibiotic for current UTI
[2016-12-11] MEDS: Albuterol 0.083% Inhal Sol (2.5 mg/3 mL) UD INH SCH ×4 (02:56→20:13)
[2016-12-11] MEDS: Pantoprazole 40 mg Susp UD GT SCH (09:55)
[2016-12-11] MEDS: Saccharomyces Boulardi 250 mg Cap PO SCH ×2 (09:55→19:57)
--- NOTE | 2016-12-11 15:54 | US ---
PROCEDURE: Ultrasound of the Kidneys HISTORY: frequent uti r/o hydro,stones COMPARISON: None available. TECHNIQUE: Sonogram of the kidneys. FINDINGS: RIGHT KIDNEY: Measures: 7.1 x 3.2 x 4.4 cm. Echogenic renal parenchyma. No obstructing calculus or hydronephrosis identified. LEFT KIDNEY: Measures: 9.5 x 5.9 x 5.3 cm. No obstructing calculus or hydronephrosis identified. OTHER FINDINGS: Limited visualization of the urinary bladder. IMPRESSION: Echogenic diminutive right kidney. Correlate for medical renal disease.
[2016-12-12] MEDS ORDERED: Sodium Chloride 0.9% 500 ML IV ONE ×3 (01:34→12:57)
[2016-12-12] MEDS: Sodium Chloride 0.9% 1,000 ML IV SCH ×4 (02:03→15:19)
[2016-12-12] MEDS ORDERED: Sodium Chloride 0.9% 1,000 ML IV SCH (03:51)
[2016-12-12] MEDS ORDERED: Sodium Chloride 0.9% 1,000 ML IV ONE (05:32)
[2016-12-12 07:42] LABS: BASO % 0.4 % (0.0-2.0); EOS # 0.3 K/uL (0.0-0.7); EOS % 2.5 % (0.0-4.0); LYMPH # 2.3 K/uL (1.0-4.3); LYMPH % 22.7 % (20.0-40.0); MEAN CELL VOLUME 82.9 fL (80.0-94.0); MEAN CORPUSCULAR HEMOGLOBIN 26.6 pg (27.0-31.0); MEAN CORPUSCULAR HGB CONC 32.1 g/dL (33.0-37.0); MEAN PLATELET VOLUME 10.2 fL (7.2-11.7); MONO # 1.2 K/uL (0.0-0.8); MONO % 11.8 % (0.0-10.0); RED CELL DISTRIBUTION WIDTH 15.2 % (11.5-14.5); WHITE BLOOD COUNT 10.2 K/uL (4.8-10.8)
[2016-12-12 07:51] LABS: PHOSPHOROUS 4.1 mg/dL (2.5-4.5)
[2016-12-12 08:02] LABS: CHLORIDE 103 mmol/L (98-107); POTASSIUM 4.2 mmol/L (3.6-5.2); SODIUM 138 mmol/L (132-148)
[2016-12-12 08:04] LABS: AST/SGOT 41 U/L (17-59); BILIRUBIN,TOTAL 0.6 mg/dL (0.2-1.3); CARBON DIOXIDE 24 mmol/L (22-30); GFR AFRICAN-AMERICAN > 60
[2016-12-12 08:05] LABS: ALB/GLOB RATIO 0.9 (1.0-2.1); ALKALINE PHOSPHATASE 127 U/L (38-126); ALT/SGPT 88 U/L (21-72); BLOOD UREA NITROGEN 28 mg/dL (9-20); CALCIUM 7.8 mg/dl (8.6-10.4); GLUCOSE,RANDOM 92 mg/dL (75-110); TOTAL PROTEIN 6.3 g/dL (6.3-8.3)
[2016-12-12 08:36] LABS: PROSTATE SPECIFIC ANTIGEN 2.56 ng/mL (0.00-4.0)
[2016-12-12] MEDS ORDERED: Sodium Bicarbonate (8.4%) 50 Meq Syringe IVP ONE ×2 (09:08→10:30)
[2016-12-12] MEDS: Pantoprazole 40 mg Susp UD GT SCH (10:23)
[2016-12-12] MEDS: Saccharomyces Boulardi 250 mg Cap PO SCH ×2 (10:23→19:18)
--- NOTE | 2016-12-12 10:44 | RAD ---
HISTORY: tachycardia COMPARISON: No prior. FINDINGS: LUNGS: Mild venous congestion. PLEURA: No significant pleural effusion identified, no pneumothorax apparent. CARDIOVASCULAR: Normal. OSSEOUS STRUCTURES: No significant abnormalities. VISUALIZED UPPER ABDOMEN: Normal. OTHER FINDINGS: None. IMPRESSION: Mild venous congestion.
--- NOTE | 2016-12-12 11:52 | CP.PCM.PN ---
<Karena Acuña - Last Filed: 12/12/16 15:50> Subjective - Date & Time of Evaluation Date of Evaluation: 12/12/16 Time of Evaluation: 11:52 - Subjective Subjective: Patient seen and examined at bedside. Patient developed sinus tachycardia in the 150s overnight. Patient was also noted to be hypotensive with pressure of 96 /63. Patient was found to be asymptomatic, resting comfortably, in no acute distress when examined. Respiratory rate was noted to be 20 and he was saturating 100% on room air. He was given a 500cc bolus of normal saline followed by another 2 boluses. Patient was also given an amp of sodium bicarbonate to rule out adrenal insufficiency. Of note, patient was started on Tigecycline 50 mg IVPB Q12H on 12/11/16 to treat VRE+ urinary tract infection. EKG, CMP, CBC with differential, Magnesium, Blood Culture x2, ABG shock panel, Procalcitonin, RAKAN, TSH, free T4, and order was placed to monitor patient on telemetry stat. Venous duplex of bilateral upper and lower extremities were also ordered. Electrolytes were found to be normal. hemoglobin 11.2, glucose 121, troponin I 0.0160, and ABG as follows: pH 7.51, pCO2 29, pO2 193, bicarb of 24, and lactate 0.7. Other labs are pending. Patient continued to be tachycardic rate of 156. Medicine team re-assessed patient; he remained asymptomatic. His pressure was 102/66, saturating 98% on room air. Lopressor 2.5 mg IVP was given stat; however patient remained tachycardic at rate of 154. His blood pressure was re-checked and stable and second Lopressor 2.5 mg IVP stat pushed. Rapid response was called at 1:49 PM as tachycardia persisted and heart rate increased as high as 200s. Another EKG was ordered stat. Cardiology, Dr. 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 Patient was transferred to ICU telemetry bed. Plan per cardiology to administer Adenosine 6 mg IVP stat. Following Adenosine IVP, patient was noted to be in atrial flutter. Plan to give Digoxin 0.125 mg IVP, Cardizem 10 mg IVP stat, and Cardizem 5 mg IV drip. D-dimer resulted elevated 642. CT angiography ordered stat to evaluate for pulmonary embolism. Objective - Vital Signs/Intake and Output Vital Signs (last 24 hours): Temp Pulse Resp BP Pulse Ox 98.4 F 154 H 20 102/66 100 12/12/16 08:00 12/12/16 08:00 12/12/16 08:00 12/12/16 08:00 12/12/16 08:00 Intake and Output: 12/12/16 12/12/16 06:59 18:59 Intake Total 930 Output Total 1600 Balance -670 - Medications Medications: Current Medications Acetaminophen (Tylenol 325mg Tab) 650 mg PO Q6 PRN PRN Reason: Fever >100.4 F Last Admin: 11/29/16 13:19 Dose: 650 mg Aspirin (Aspirin Chewable) 81 mg GT DAILY [facility] Last Admin: 12/11/16 09:55 Dose: 81 mg Tigecycline 50 mg/ Sodium (Chloride) 50 mls @ 50 mls/hr IVPB Q12H [facility] Last Admin: 12/12/16 07:51 Dose: 50 mls/hr Sodium Chloride (Sodium Chloride 0.9%) 1,000 mls @ 100 mls/hr IV .Q10H [facility] Last Admin: 12/12/16 03:55 Dose: 100 mls/hr Pantoprazole Sodium (Protonix Susp) 40 mg GT DAILY [facility] Last Admin: 12/12/16 10:23 Dose: 40 mg Rosuvastatin Calcium (Crestor) 5 mg GT HS [facility] Last Admin: 12/11/16 21:07 Dose: 5 mg Saccharomyces Boulardii (Florastor) 250 mg PO BID [facility] Last Admin: 12/12/16 10:23 Dose: 250 mg - Labs Labs: 12/12/16 07:27 12/12/16 07:27 PT 12.9 SECONDS (9.7-12.2) H 11/15/16 13:58 INR 1.2 11/15/16 13:58 APTT 39 SECONDS (21-34) H 11/15/16 13:58 - Constitutional Appears: Non-toxic, No Acute Distress - Head Exam Head Exam: ATRAUMATIC, NORMAL INSPECTION, NORMOCEPHALIC - Eye Exam Eye Exam: EOMI, PERRL - ENT Exam ENT Exam: Mucous Membranes Moist - Respiratory Exam Respiratory Exam: Clear to Ausculation Bilateral, NORMAL BREATHING PATTERN. absent: Rales, Rhonchi, Wheezes - Cardiovascular Exam Cardiovascular Exam: Tachycardia, +S1, +S2 - GI/Abdominal Exam GI & Abdominal Exam: Soft, Normal Bowel Sounds - Extremities Exam Extremities Exam: Tenderness Additional comments: tenderness to left upper extremity. No swelling noted. no tenderness to bilateral lower extremities - Back Exam Back Exam: NORMAL INSPECTION - Neurological Exam Neurological Exam: Alert, Awake, Oriented x3 - Psychiatric Exam Psychiatric exam: Normal Affect, Normal Mood - Skin Skin Exam: Intact, Normal Color Assessment and Plan - Assessment and Plan (Free Text) Assessment: Tachycardia Patient tachycardic in 150s d-dimer elevated 642 f/u CTA, bilateral venous duplex of upper and lower extremities Lopressor 5 mg IVP stat given, tachycardic did not resolve Cardiology, Dr. Brock, consulted. Patient transferred to ICU as telemetry patient and given Adenosine 6 mg IVP stat. Atrial flutter noted Patient started on Digoxin 0.125 mg IVP daily, Cardizem 10 mg IVP once, and Cardizem drip at 5 mg/hr. Will adjust as needed. UTI 12/11: Patient continued on Tigecycline IVPB. Patient tachycardic in 150s. Blood cultures x2, procalcitonin, ABG Shock, CBC with differential and CMP ordered to rule out sepsis. 12/11: Urine Culture grew VRE, sensitive to Tigecycline. ID, Dr. Chavez, is aware. [place] condom catheter placed. Patient started on Tigecycline 50 mg IVPB Q12H. 12/09: Urine culture preliminary- gram positive cocci 12/06: Continue Cipro. Repeat UA (12/05): color yellow, clarity hazy, pH 6.0, sp gravity 1.019, nitrate negative, leukocyte esterase negative, WBC 2. Urine culture grew multiple species, likely contamination. Will repeat UA and culture. 12/05: Continue Cipro. Follow-up repeat UA and culture. WIll change condom catheter. 11/30-: Cont Cipro as per ID for UTI 11/29: Repeat urine cxr grew multiple species, prior urine cx pos for pseudomonas - per ID- d/c Diflucan, start Cipro 400mg Q12H 11/28: Will repeat Urine Cx tomorrow, continue Diflucan 11/25: Cont Diflucan as per ID, FU repeat Urine cx ordered today 11/24: Cont diflucan 11/23: urine cx pos for yeast again. ID informed, told to continue Diflucan. 11/22: FU urine cx- if negative, will d/c Diflucan. Pt off Merrem and vanc. 11/21: Per ID- ok to de-escalate Antibiotics- Vanc discontinued last week, Merrem discontinued today, will continue Diflucan until repeat Urine cx resulted - [place] catheter changed on 11/18 11/19: no changes, afebrile 11/18: Afebrile over last 24H, no labs today, per ID- de-escalate Abx- do not renew Vanc, will cont merrem over the weekend, then d/c on 11/21. Change the [place] catheter if urine cx still positive for yeast. 11/17: Afebrile over last 24H, no leukocytosis- stable, no changes 11/16: Afebrile over last 24H, no leukocytosis- stable, no changes 11/15: Afebrile over last 24H, no leukocytosis- stable FU Vanc trough at 1pm 11/15 11/14: Afebrile over last 24H, no leukocytosis 11/13: Afebrile, labs stable 11/12: Afebrile overnight, f/u am labs 11/11: Afebrile over last 24H, WBC down trending, now 12.3 from 12.6, per ID: resume vancomcyin; trough 10-15; and monitor wbc count FU sputum cxr- talked to lab- results will be available on 11/12- so far only normal kalin growing FU vanc trough on 11/12 before 3rd dose 11/10: Afebrile over last 24H, WBC down trending, no w 12.6 from 14.1, Blood cx neg x 4 D, repeat urine cxr pos for yeast 11/09: Afebrile over last 24H, WBC increased from 11.9 to 14.1; Blood/urine/ sputum cxr sent Vanc trough 8.4 Urine cx pos for yeast Diflucan 200mg Q24H ordered ID consulted for adjustement of antibiotics/antifungals- awaiting recs 11/08: Afebrile over last 24H, WBC 11.9, Bands 3 11/07: Afebrile over last 24H, WBC 16.3, Bands 6 Trach asp pos for Gram neg rods Blood cxr neg x 48H 11/06: Continue to monitor WBC 11/05: Leukocytosis 21.8 from 19.4, 16.7 - trending up 11/05: Vanc trough - 5.1 Afebrile over last 24H -Started Vanco 1gm Q24H vanco through 11/02 - 5.1 11/01- apr work up sent: blood cxr, urine cxr, CXR, C diff stool Blood cxr neg x 48H urine cxr neg Bandemia 5 10/31- Trach asp cx - normal kalin 10/31 - Urine ([place]) cxr neg 10/25 Sputum cx: Serratia marcescens and Enterobactor aerogenes 10/21 Sputum cx: Klebsiella pneumoniae Hold change of antibiotics. Fully aware of the low grade temperature, and increase in WBCs. Patient is hemodynamically stable. 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 Aspirin held in case of bleed as patient tachycardic. 12/07: Demonstrates increased movement of right upper and lower extremity. 12/06: Continues to demonstrate some movement of RUE 12/03: Pt able to lift RUE a little, RLE a little 12/01: Increased ROM of RUE 11/30: Pt with increased ROM of RUE after rehab efforts of family 11/29: Trach collar with secretions, asked pulm to re-evaluate for either weaning or valve 11/28: Trach collar in place with secretions- cleaned up, respiratory informed that pt needs suctioning 11/25: Trach care being provided by nursing, secretions noted, trach collar in place 11/24: Trach collar with copious secretions, trach care as per nursing 11/23: Stable, trach collar care as per nursing, continues with copious secretions 11/22: Trach collar in place, no secretions audible this morning, cont ASA daily 11/21: Trach collar in place, secretions audible- nursing notified; ASA 81 mg daily started as per neuro 11/19: Minimal secretions at trach, stable 11/18: Trach collar in place, stable 11/17: On trach collar, stable, lots of secretions 11/16: Stable on trach collar, no changes 11/15: Stable, no changes, trach collar in place 11/14: trach collar in place 11/13: Pt still with secretions, respiratory informed and will address 11/11: Secretions continued, started duonebs and mucomyst, informed nursing to do trach care and suctioning 11/10: Pt with audible secretions on trach collar- nursing informed, OGT in place 11/09: Pt resting comfortably in bed, trach to trach collar- tolerating w/some secretions as per respiratory, OGT In place 11/08: Resting comfortably, trach in place, OGT in place, does not 11/07: Resting comfortably, trach in place 11/06: Trach in place, resting comfortably. Follows simple commands to protrude tongue and move L arm 11/05: did not follow simple commands 11/04: Continues to follows simple commands in [place] Neurology consult - Dr. Simpson advise to schedule trach and PEG. Hold antiplatelets for 4-6 weeks and maintain blood pressure above 100 systolic. Sedation as needed 10/24 CT Head: little interval change in the size of left thalamic hemorrhage 2.4x2.9 cm with intraventricular extension of hemorrhage and mild obstructive hydrocephalus. 2 mm midline shift from left to right with no evidence of herniation. Near complete resolution of hemorrhage within 4th ventricle. 10/19 CT Head: little interval change in the known 2.0 x 2.7 acute hematoma in left thalamus with intra ventricular extension of hemorrhage. Interval mild worsening of obstructive hydrocephalus. 10/18 CT Head: Left basal ganglia acute hemorrhage, possibly hypertensive with associated intraventricular hemorrhage and mass effect upon the left lateral aspect of the 3rd ventricle with the tip shift of the 3rd ventricle towards the right side. No generalized midline shift. Air-fluid level in sphenoid sinus common nonspecific. Please correlate for concern regarding acute sinusitis. Mild involutional changes. GCS - 8T (E4 VT M4) [place] II 10.0, 12% estimated non-operative mortality 11/03- CT brain w/o cont for re-evaluation of bleed w/findings of Interval decrease in size and density left basal ganglia hematoma however well- circumscribed peripheral rim of low-attenuation edema about the hematoma likely represent some combination of brain edema as well as of brain necrosis. Intraventricular hemorrhage has diminished. Ventricles have also decreased in size though the temporal horns and atria remain prominent compared to the compressed remaining ventricular system. There is persistent compression of the 3rd and left lateral ventricle Chronic white matter and basal nuclei ischemic changes. December 07- reassess pt need for anticoagulation with neurology HTN: 12/12: Patient hypotensive today, 96/53. 1 amp of Sodium bicarbonate given, however, pressure not responsive. Patient given 500cc bolus of normal saline x4. Pressure responded. Respiratory failure - resolved 12/12: Saturating well on room air. 12/10: Pt tolerating room air- dressing over trach site C/D/I Imaging 11/08 CXR-Tracheostomy tube in place. Other lines and tubes in stable position. Mild patchy increased markings in the right infrahilar region. Biapical pleural thickening. 11/02/CXR - repeat CXR for replacement of OGT w/Support lines tubes - normally positioned No interval pathology noted 11/02 CXR - Interval improvement in the right lower lung since the previous study. Appropriate position of the right-sided PICC line with the tip is likely at the SVC right atrium junction 11/01 CXR - The in situ tracheostomy tube and NG tube positions are as before. Mild interval prominence of the right infrahilar bronchovascular markings either due to technique or subtle interval patchy infiltrate. Clinical follow- up recommended 10/31 CXR -In situ tracheostomy tube remains in good position. NGT w/tip overlying LUQ of the abdomen unchanged. Continued improvement right lung base. 10/28 CXR No focal airspace opacity 10/27 CXR No active disease 10/26 CXR - Mild venous congestion. Right hilar prominence 10/24 CXR Mild venous congestion. Mild right infrahilar prominence 10/23 CXR - Mild venous congestion. right hilar prominence. Biapical pleural thickening upper lobe granulomatous changes. lines and tubes in stable position. 10/22 CXR - Worsening consolidative changes to right mid to lower lung zone. lines and tubes in stable position. 10/20 CXR - Distal tip of an endotracheal tube terminates approximately 4.6 cm above the brisa. Left IJ approach Central venous catheter terminates at expected location of the left innominate vein. Nasogastric tube extends to expected location of the stomach 10/19 CXR New nasogastric tube extends to distal esophagus, above the diaphragm. Repositioning is advised. ET tube unchanged. No infiltrate. 10/18 CXR ET tube proximal to brisa, no acute pulmonary pathology official read pending Head of bed to 30* Keep O2 Sat >92% Dysphagia 12/10: DC planning 12/09: PEG in place, tolerating tube feedings well. Will need to get in touch with family regarding PEG feedings at home to determine if patient is candidate for discharge. 11/05: OGT removed due to possible contribution to fever/sepsis. Feeding tube via oropharynx replaced 11/02 after pt removed position verified by CXR Feeding tube via oropharynx replaced 11/01 Position verified by CXR NGT was advanced 10/20 - d/c'd Consulted GI- Dr. Renteria- PEG tube placement when not having fevers/ leukocytosis Anemia- stable Hemoglobin stable Intracranial bleed No coagulopathy Contraindication for anticoagulation Monitor Muscular deconditioning due to being bed bound Cont PT/OT Pt and family member at bedside instructed on self-rehab exercises Monitor tracheostomy site for drainage, erythema, hematoma, signs of infection. Prophylaxis: GI - Protonix 40 mg IVP daily DVT - contraindicated 09/15 to intracranial bleed WIll re-asses VTE needs on 12/07 Dispo: Assess patient for possible transfer to LTAC or [facility] ID following Pulm following Cont condom catheter Cont general body care SW eval for possible LTAC after PEG placement PEG tube with tube feeding in place @ goal of 60 cc/hour per dietary Labs Q7days PT/OT Pt in process of being added to 's insurance SW informed that pt's family is unable to afford/provide care for pt at home Pt tolerating decannulation of tracheostomy Prostat with tube feeds ENT, Dr. Nuno, to evaluate for vocal cord dysfunction. Per evaluation, vocal cord dysfunction present as they do not come together fully. Suggests reflux management and follow-up as outpatient for vocal cord injections. Case management will be following up with family in regards to ability to provide PEG feeds if patient discharged home. <Apple Vidal V - Last Filed: 12/12/16 21:27> Objective - Vital Signs/Intake and Output Vital Signs (last 24 hours): Temp Pulse Resp BP Pulse Ox 98.4 F 153 H 14 94/64 L 99 12/12/16 15:00 12/12/16 19:00 12/12/16 19:00 12/12/16 18:47 12/12/16 19:00 Intake and Output: 12/12/16 12/13/16 18:59 06:59 Intake Total 342.5 110 Output Total 1000 Balance -657.5 110 - Medications Medications: Current Medications Acetaminophen (Tylenol 325mg Tab) 650 mg PO Q6 PRN PRN Reason: Fever >100.4 F Last Admin: 11/29/16 13:19 Dose: 650 mg Aspirin (Aspirin Chewable) 81 mg GT DAILY [facility] Last Admin: 12/11/16 09:55 Dose: 81 mg Digoxin (Lanoxin) 0.125 mg IVP DAILY@1800 [facility] Last Admin: 12/12/16 18:36 Dose: 0.125 mg Tigecycline 50 mg/ Sodium (Chloride) 50 mls @ 50 mls/hr IVPB Q12H [facility] Last Admin: 12/12/16 07:51 Dose: 50 mls/hr Sodium Chloride (Sodium Chloride 0.9%) 1,000 mls @ 100 mls/hr IV .Q10H [facility] Last Admin: 12/12/16 15:19 Dose: 100 mls/hr Diltiazem HCl 125 mg/ Dextrose 125 mls @ 5 mls/hr IV .Q24H [facility]; 5 MG/HR PRN Reason: Protocol Last Titration: 12/12/16 18:35 Dose: 15 mg/hr, 15 mls/hr Esmolol HCl 2,500 mg/ Sodium (Chloride) 250 mls @ 19.05 mls/hr IV .Q13H8M [facility]; 50 MCG/KG/MIN PRN Reason: Protocol Rosuvastatin Calcium (Crestor) 5 mg GT HS [facility] Last Admin: 12/11/16 21:07 Dose: 5 mg Saccharomyces Boulardii (Florastor) 250 mg PO BID [facility] Last Admin: 12/12/16 19:18 Dose: 250 mg - Labs Labs: 12/12/16 07:27 12/12/16 07:27 PT 12.9 SECONDS (9.7-12.2) H 11/15/16 13:58 INR 1.2 11/15/16 13:58 APTT 39 SECONDS (21-34) H 11/15/16 13:58 Attending/Attestation - Attestation I have personally seen and examined this patient.: Yes I have fully participated in the care of the patient.: Yes I have reviewed all pertinent clinical information, including history, physical exam and plan: Yes Notes (Text): Patient seen, examined, and case discussed with day-time resident. Patient seen multiple times during the day because of his HR: 150s; pending telemetry bed. Per discussion with day-time resident, patient had received 3 fluid boluses this morning about 5AM for associated hypotension and with tachycardia starting AM today. I went down see the patient, patient is asymptomatic. Patient ordered for stat labs, d-dimer, TSH, procalcitonin this morning. Patient seen again during rounds in the morning. Patient denies acute complaints. Patient seen again during swallow eval when he is tolerated pleasure feedings, and denies acute complaints. Patient's EKG from ~5AM noting for sinus tachycardia, troponin negative (drawn in AM labs). Patient does not have leukocytosis, does not have an elevated lactate, afebrile, breathing with ease, and saturating at 100% with no associated platelet dysfunction, kidney numbers, and remains asymptomatic. Discussed with charge nurse, patient's primary care nurse, and telemetry nurse monitoring patient up on 6th floor while patient is awaiting telemetry bed throughout the day, and patient healthcare insurance sales agent. Chest xray also completed this morning and reviewed prior to rapid; and mild venous congestion noted on report. Prior Echo completed 10/21/16 noted for mild to moderate concentric hypertrophy, normal systolic function, and normal doppler. Given lack of telemetry beds, coordinating with telemetry 6th floor nurse, Naye, viewing monitoring to attempt to rate control with Lopressor 2.5mg IV which was given twice and vitals monitored with resident Arianne and medical student. Subsequent VS: BP: 107/70 HR: 150s, and repeat EKG appears to be in sinus tachycardia and given additional 500cc bolus of NS at bedside. Glucagon ampule ready at bedside but was not given. Cardiology consulted: new-onset tachycardia. Discussed with ICU, patient is not ICU candidate. Asymptomatic and will need to treat cause. Rapid response called for heart rate in the 150s in [place], unable to get EKG in spite several attempts due to EKG machine not working properly to repeat for 3rd EKG today. D-dimer, TSH, and procalcitonin collected at [facility]. Dr. Bailey came to see the patient at [facility]. Patient transferred to telemetry-ICU. Patient remains asymptomatic. Discussed with cardiology, recommended for Adenosine 6 units, and patient is in atrial flutter. Recommended for IV Digoxin and IV Cardizem 10mg X1 and Cardizem 5mg drip and may need sync cardioversion given onset within 24 hours. Patient's d-dimer resulted which is elevated. Patient was ordered for CT angio r/o PE and upper/lower dopplers r/o DVT given that this is a patient who is high risk for PE given his immobility, and given his recent hemorrhagic basal ganglia/interventricular hemorrhage on 10/18/16 CT scan. Patient currently on aspirin as anti-platelet therapy. CT angio is negative for PE, showing right lower lobe consolidation. Thyroid studies negative. Patient is currently on IV tigecycline for VRE-UTI. Awaiting dopplers. Assessment/Plan (1) Intracranial hemorrhage Assessment & Plan: 10/18 CT Head: Left basal ganglia acute hemorrhage, possibly hypertensive with associated intraventricular hemorrhage and mass effect upon the left lateral aspect of the 3rd ventricle with the tip shift of the 3rd ventricle towards the right side. No generalized midline shift. Air-fluid level in sphenoid sinus common nonspecific. Please correlate for concern regarding acute sinusitis. Mild involutional changes. 10/19 CT Head: little interval change in the known 2.0 x 2.7 acute hematoma in left thalamus with intra ventricular extension of hemorrhage. Interval mild worsening of obstructive hydrocephalus. 10/24 CT Head: little interval change in the size of left thalamic hemorrhage 2.4x2.9 cm with intraventricular extension of hemorrhage and mild obstructive hydrocephalus. 2 mm midline shift from left to right with no evidence of herniation. Near complete resolution of hemorrhage within 4th ventricle. 11/03/16 CT Head; Interval decrease in size and density left basal ganglia hematoma; well-circumscribed peripheral rim of low attentuation edema about hematoma; combination of brain edema and brain necrosis; intraventricular hemorrhage has diminished. Ventricles hae also decreased in size temporal horns and atria remain prominent. Persistent compression of the 3rd and left lateral ventricle * Neurosurgery per initial consult-->patient's prognosis dismal at beginning of admission * Neurology (Dr. Simpson) on board-->per 10/26 note: patient has attained maximum response from neuro point of view from this admission; keep nutritional status and avoid infectious; treat with peg/trach; no antiplatelets for next 4-6 weeks (; maintain MAP ~100) * On baby aspirin 81mg PO daily; discussed with neurology with 11/22/16 Status: Acute (2) Tachycardia (acute) Assessment & Plan: * Ultimately transferred to Telemetry bed available in the ICU * elevated D-dimer-->Ct angio negative for PE; awaiting dopplers * 12/12/16 tachycardia-->Adenosine given --> Atrial flutter-->on IV digoxin and IV cardizem drip * Cardiology consulted (Dr. Brock) on board; case discussed * Thyroid studies negative * Awaiting procalcitonin (3) Hypertension Assessment & Plan: * monitor vital signs * controlled (4) Acute respiratory failure (resolved) Assessment & Plan: * s/p tracheostomy 10/28/16 * Patient completed trach collar. * Weaning completed; off ventilator * Saturating well. * Monitor dressing change of trach site * Pulmonary (Dr. Bailey) consulted to assist with weaning protocol * Mucomyst PRN to help thin out secretions * Duonebs PRN shortness of breathe * monitor and may need suctioning PRN * Completed decannulation on 10/30/16; saturating well * Consulted speech-->patient not appropriate for speak-easy valve status post decannulation; encourage speaking * Discussed with ENT-->outpatient due to mild vocal cord dysfunction * Discussed with swallow-->patient has a strong cough, can be started on pleasure feedings and/or pureed diet to try to transition off peg Status: resolved (4) CVA (cerebral vascular accident) Assessment & Plan: * Hemorrhagic stroke with associated hypotension and basal ganglia involvement on admission * [id number]:5.7 * Cholestrol: 202, TG: LDL:130 HDL:52 * Aspirin 81mg PO daily * Blood pressure control monitoring * Start on Crestor 5mg POqHS * s/p peg placement; feedings via peg started on 11/17/16; monitor for residual * Patient currently on 60cc/hr feeds with 400cc Q 8 hours of water flushes (5) Sepsis (resolved) Assessment & Plan: Per 11/05; Fever 103F and associated leukocytosis: 21.8; infection: pneumonia ( which was treated with Meropenem during the course of hospitalization) Infectious disease on board (Dr. Chavez) 10/21 Sputum-Klebsiella (sensitive to Maxipime) 10/25 Serratia and Enterobacter (sensitive to Maxipime) 10/31 Sputum: normal 11/06: Enterobacter which is sensitive Meropenem (switch from Maxipime) 11/06 Urine culture: yeast 11/09 Urine culture: yeast 11/09 Blood culture: no growth for 5 days X2 11/21 Urine culture: yeast 11/26: Urine culture: Pseudomonas 12/08: Urine culture: VRE UTI (patient not septic at time of current UTI) (6) Urinary Tract Infection (current) * 12/08/16 VRE UTI * Multiple UTI infections * Yeast urine treated with Diflucan during hospitalization * Pseudomonas treated with Cipro during hospitalization * VRE UTI currently treated with Tigecycline and contact isolation * [place] condom catheter changed recently * Infectious disease (Dr. Chavez) on board * Tigecycline 50mg IV Q 12hours (active since 12/11/16) * Florastor 250mg PO bid * Monitor LFTS (7) Hypernatremia * Free water: 400 water Q 8hours flushes peg * sodium normalized (8) Prophylactic care * s/p peg placement * Weaned off vent; saturating well s/p decanulation * Continue with aggressive PT/OT-->latest PT noted recommending for subacute/ LTAC * on peg feedings/fluid flushes * Reconsult PT/OT and swallow given improvements in motor function * Palliative care reconsult for goals of care * Family trying to secure insurance for the patient and coordinate with case management Disposition * Transferred to tele-ICU given atrial flutter requiring IV Digoxin and IV Cardizem and monitoring of heart rate, may need cardioversion; discussed with cardiology * Patient will need IV abx for VRE UTI at this time. Not stable for discharge given resistant antibiotic for current UTI; will need IV abx to address pneumonia when heart rate is stablized * Pending insurance for jail care facility for rehabilitation and peg feedings, will need constant monitoring. Patient currently wears mittens to prevent him from pulling on his tubes and is unsafe for home. Will need to clarify with family regarding the type of care patient will need with both patient's son and daughters.
[2016-12-12] MEDS ORDERED: Metoprolol 1 mg/ml Inj IVP ONE ×2 (12:38→13:19)
[2016-12-12] MEDS ORDERED: Glucagon Recombinant 1 mg Inj IV ONE (12:58)
--- NOTE | 2016-12-12 17:05 | CP.PCM.CON ---
History of Present Illness - History of Present Illness History of Present Illness: Cardiology Consultation Note Dr. Brock CC: Tachycardia HPI: This is a 56 year old male with a PMH notable for HTN and intracranial bleed presenting for cardiac evaluation of acute onset tachycardia. Patient initially presented for intracranial bleed on 10/18/16. The patient was managed in the ICU until 10/29/16 then transferred to the [facility] floor. The patient was found to have tachycardia today at bedside exceeding 200bpm. Bedside EKG was obtained and a supraventricular tachycardia vs atrial flutter was identified. Lopressor 2.5 mg IVP was given stat; however patient remained tachycardic at rate of 154. His blood pressure was re-checked and stable and second Lopressor 2.5 mg IVP stat pushed. Rapid response was called at 1:49 PM as tachycardia persisted and heart rate increased as high as 200s. Another EKG was ordered stat. Cardiology, Dr. 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 Patient was transferred to ICU telemetry bed. Adenosine 6 mg IVP was given, A-flutter was identified. Patient denies all cardiopulmonary symptoms at this time. Patient will remain in ICU for monitoring. PMH: HTN, intracranial bleed PSH: none Allergies: NKDA Meds: unknown Social: recent immigrant from [place] Review of Systems - Constitutional Constitutional: absent: Chills, Fatigue, Fever - EENT Eyes: absent: Blurred Vision, Change in Vision Nose/Mouth/Throat: absent: Nose Pain, Facial Pain, Neck Pain - Cardiovascular Cardiovascular: absent: Chest Pain, Claudication, Lightheadedness, Orthopnea, Paroxysmal Nocturnal Dyspnea, Rapid Heart Rate, Syncope - Respiratory Respiratory: absent: Cough, Dyspnea, Dyspnea on Exertion - Gastrointestinal Gastrointestinal: absent: Abdominal Pain, Constipation, Diarrhea, Nausea, Vomiting - Genitourinary Genitourinary: absent: Change in Urinary Stream, Difficulty Urinating - Musculoskeletal Musculoskeletal: absent: Arthralgias, Stiffness, Tingling - Integumentary Integumentary: absent: Lesions, Rash, Wounds - Neurological Neurological: absent: Memory Loss, Sensory Deficit, Syncope, Tingling, Tremor, Vertigo, Weakness - Endocrine Endocrine: absent: Cold Intolorance, Heat Intolorance, Polydipsia, Polyphagia Past Patient History - Infectious Disease Hx of Infectious Diseases: None - Past Medical History & Family History Past Medical History?: No - Past Social History Smoking Status: Former Smoker - CARDIAC Hx Cardiac Disorders: Yes Hx Hypertension: Yes - PULMONARY Hx Respiratory Disorders: Yes - NEUROLOGICAL Hx Neurological Disorder: Yes - HEENT Hx HEENT Problems: Yes - RENAL Hx Chronic Kidney Disease: Yes - ENDOCRINE/METABOLIC Hx Endocrine Disorders: Yes - HEMATOLOGICAL/ONCOLOGICAL Hx Blood Disorders: Yes - INTEGUMENTARY Hx Dermatological Problems: Yes - MUSCULOSKELETAL/RHEUMATOLOGICAL Hx Arthritis: Yes - GASTROINTESTINAL Hx Gastrointestinal Disorders: Yes - GENITOURINARY/GYNECOLOGICAL Hx Genitourinary Disorders: Yes - PSYCHIATRIC Hx Psychophysiologic Disorder: Yes Hx Substance Use: No - SURGICAL HISTORY Hx Surgeries: No - ANESTHESIA Hx Anesthesia: No Meds Allergies/Adverse Reactions: Allergies Allergy/AdvReac Type Severity Reaction Status Date / Time No Known Allergies Allergy Verified 10/18/16 15:57 - Medications Medications: Current Medications Acetaminophen (Tylenol 325mg Tab) 650 mg PO Q6 PRN PRN Reason: Fever >100.4 F Last Admin: 11/29/16 13:19 Dose: 650 mg Aspirin (Aspirin Chewable) 81 mg GT DAILY [facility] Last Admin: 12/11/16 09:55 Dose: 81 mg Digoxin (Lanoxin) 0.125 mg IVP DAILY@1800 [facility] Tigecycline 50 mg/ Sodium (Chloride) 50 mls @ 50 mls/hr IVPB Q12H [facility] Last Admin: 12/12/16 07:51 Dose: 50 mls/hr Sodium Chloride (Sodium Chloride 0.9%) 1,000 mls @ 100 mls/hr IV .Q10H [facility] Last Admin: 12/12/16 15:19 Dose: 100 mls/hr Diltiazem HCl 125 mg/ Dextrose 125 mls @ 5 mls/hr IV .Q24H [facility]; 5 MG/HR PRN Reason: Protocol Last Titration: 12/12/16 16:15 Dose: 7.5 mg/hr, 7.5 mls/hr Pantoprazole Sodium (Protonix Susp) 40 mg GT DAILY [facility] Last Admin: 12/12/16 10:23 Dose: 40 mg Rosuvastatin Calcium (Crestor) 5 mg GT HS [facility] Last Admin: 12/11/16 21:07 Dose: 5 mg Saccharomyces Boulardii (Florastor) 250 mg PO BID [facility] Last Admin: 12/12/16 10:23 Dose: 250 mg Physical Exam - Constitutional Appears: Chronically Ill - Head Exam Head Exam: ATRAUMATIC, NORMAL INSPECTION, NORMOCEPHALIC - Eye Exam Eye Exam: EOMI, Normal appearance Pupil Exam: NORMAL ACCOMODATION - ENT Exam ENT Exam: Mucous Membranes Moist, Normal Exam - Neck Exam Neck exam: Positive for: Full Rom, Normal Inspection. Negative for: Tenderness - Respiratory Exam Respiratory Exam: Clear to Auscultation Bilateral, NORMAL BREATHING PATTERN. absent: Decreased Breath Sounds, Rhonchi, Wheezes - Cardiovascular Exam Cardiovascular Exam: Tachycardia, REGULAR RHYTHM, +S1, +S2. absent: Diastolic murmur, RRR, Systolic Murmur - GI/Abdominal Exam GI & Abdominal Exam: Normal Bowel Sounds, Soft. absent: Distended, Firm, Guarding, Tenderness - Extremities Exam Extremities exam: Positive for: normal capillary refill, normal inspection, pedal pulses present - Neurological Exam Neurological exam: Alert, CN II-XII Intact, Oriented x3 - Skin Skin Exam: Dry, Intact, Normal Color, Warm Results - Vital Signs Recent Vital Signs: Last Vital Signs Temp 98.4 F 12/12/16 15:00 Pulse 152 H 12/12/16 16:29 Resp 13 12/12/16 16:29 BP 102/72 12/12/16 16:29 Pulse Ox 99 12/12/16 16:29 - Labs Result Diagrams: 12/12/16 07:27 12/12/16 07:27 Labs: Laboratory Results - last 24 hr 12/11/16 12/11/16 12/12/16 16:16 21:24 07:25 WBC RBC Hgb Hct MCV MCH MCHC RDW Plt Count MPV Neut % (Auto) Lymph % (Auto) [place] % (Auto) Eos % (Auto) Baso % (Auto) Neut # Lymph # [place] # Eos # Baso # D-Dimer, Quantitative pCO2 pO2 HCO3 ABG pH ABG Total CO2 ABG O2 Saturation ABG Base Excess ABG Potassium Glucose Lactate Sodium Potassium Chloride Carbon Dioxide Anion Gap BUN Creatinine Est GFR ( Amer) Est GFR (Non-Af Amer) POC Glucose (mg/dL) 88 121 H 85 Random Glucose Calcium Phosphorus Magnesium Total Bilirubin AST ALT Alkaline Phosphatase Total Creatine Kinase CK-MB (Mass) Troponin I, Quant Total Protein Albumin Globulin Albumin/Globulin Ratio Prostate Specific Ag TSH 3rd Generation Arterial Blood Potassium 12/12/16 12/12/16 12/12/16 07:27 07:27 07:27 WBC 10.2 RBC 4.22 L Hgb 11.2 L Hct 35.0 MCV 82.9 MCH 26.6 L MCHC 32.1 L RDW 15.2 H Plt Count 322 MPV 10.2 Neut % (Auto) 62.6 Lymph % (Auto) 22.7 [place] % (Auto) 11.8 H Eos % (Auto) 2.5 Baso % (Auto) 0.4 Neut # 6.4 Lymph # 2.3 [place] # 1.2 H Eos # 0.3 Baso # 0.0 D-Dimer, Quantitative pCO2 pO2 HCO3 ABG pH ABG Total CO2 ABG O2 Saturation ABG Base Excess ABG Potassium Glucose Lactate Sodium 138 Potassium 4.2 Chloride 103 Carbon Dioxide 24 Anion Gap 15 BUN 28 H Creatinine 0.6 L Est GFR ( Amer) > 60 Est GFR (Non-Af Amer) > 60 POC Glucose (mg/dL) Random Glucose 92 Calcium 7.8 L Phosphorus 4.1 Magnesium 2.0 Total Bilirubin 0.6 AST 41 ALT 88 H D Alkaline Phosphatase 127 H Total Creatine Kinase 52 L CK-MB (Mass) 0.78 Troponin I, Quant 0.0160 Total Protein 6.3 Albumin 2.9 L Globulin 3.4 Albumin/Globulin Ratio 0.9 L Prostate Specific Ag 2.56 TSH 3rd Generation Arterial Blood Potassium 12/12/16 12/12/16 12/12/16 09:17 11:25 13:54 WBC RBC Hgb Hct MCV MCH MCHC RDW Plt Count MPV Neut % (Auto) Lymph % (Auto) [place] % (Auto) Eos % (Auto) Baso % (Auto) Neut # Lymph # [place] # Eos # Baso # D-Dimer, Quantitative pCO2 29 L pO2 193 H HCO3 25.8 ABG pH 7.51 H ABG Total CO2 24.0 ABG O2 Saturation 99.7 H ABG Base Excess 1.0 ABG Potassium 4.4 Glucose 127 H Lactate 0.7 Sodium 137.0 Potassium Chloride 115.0 H Carbon Dioxide Anion Gap BUN Creatinine Est GFR ( Amer) Est GFR (Non-Af Amer) POC Glucose (mg/dL) 114 H 103 Random Glucose Calcium Phosphorus Magnesium Total Bilirubin AST ALT Alkaline Phosphatase Total Creatine Kinase CK-MB (Mass) Troponin I, Quant Total Protein Albumin Globulin Albumin/Globulin Ratio Prostate Specific Ag TSH 3rd Generation Arterial Blood Potassium 4.4 12/12/16 12/12/16 14:15 14:15 WBC RBC Hgb Hct MCV MCH MCHC RDW Plt Count MPV Neut % (Auto) Lymph % (Auto) [place] % (Auto) Eos % (Auto) Baso % (Auto) Neut # Lymph # [place] # Eos # Baso # D-Dimer, Quantitative 642 H pCO2 pO2 HCO3 ABG pH ABG Total CO2 ABG O2 Saturation ABG Base Excess ABG Potassium Glucose Lactate Sodium Potassium Chloride Carbon Dioxide Anion Gap BUN Creatinine Est GFR ( Amer) Est GFR (Non-Af Amer) POC Glucose (mg/dL) Random Glucose Calcium Phosphorus Magnesium Total Bilirubin AST ALT Alkaline Phosphatase Total Creatine Kinase CK-MB (Mass) Troponin I, Quant Total Protein Albumin Globulin Albumin/Globulin Ratio Prostate Specific Ag TSH 3rd Generation 2.10 Arterial Blood Potassium Assessment & Plan (1) Supraventricular tachycardia Assessment and Plan: AVNRT vs Atrial flutter identified at bedside s/p 6mg Adenosine Digoxin 0.125 mg IVP Cardizem 10 mg IVP stat followed by Cardizem 5 mg IV drip continue telemetric monitoring repeat EKG Echo ordered will continue to monitor possible need for electric cardioversion 12/12/16 16:45 EKG- Supraventricular tachycardia (151bpm), normal axis, normal intervals, LVH 10/21/16 Echo- 72% EF with normal systolic and diastolic function 10/21/16- EKG sinus tachy (120bpm), jackelin axis, LVH, St and T wave abnormality in lateral leads (consider ischemia), normal intervals 10/18/16- EKG- normal sinus rhythm, normal axis, normal intervals, LVH Case Discussed with Dr. Vinod Salas PGY1 Status: Acute
[2016-12-12] MEDS ORDERED: Iodixanol 320 MG/ML 100 ML BOTTLE IV ONE (17:36)
[2016-12-12] MEDS ORDERED: Digoxin 500 mcg/2ml (0.5 mg/2ml) Inj IVP SCH (18:00)
--- NOTE | 2016-12-12 18:23 | CT ---
CT chest with IV contrast Indication: Sinus tachycardia. Technique: Contiguous axial images were obtained through the chest with intravenous contrast enhancement. Sagittal and coronal reconstructions were generated and reviewed. This CT exam was performed using 1 or more of the falling dose reduction techniques: Automated exposure control, adjustment of the MAA and/or kV according to patient size, and/or use of iterative reconstruction technique. IV Contrast: 100 mL Visipaque 320 Radiation dose (DLP): 562.64 MGy-cm. Comparison: Chest x-ray performed 12/12/16 Findings: Visualized portions of the inferior thyroid gland appear unremarkable. The mediastinal and hilar vascular structures appear within normal limits. The SVC is inadequately assessed due to admixture of venous contents. The heart appears within normal limits of size. No large central or segmental pulmonary embolus evident. Right lower lobe consolidation. Dependent atelectasis, left lung base. Linear atelectasis left midlung zone. No pleural effusion. No pneumothorax. No suspicious pulmonary nodules measuring greater than 5 mm. Limited visualization of the upper abdomen demonstrates severe constipation. Degenerative changes. Impression: No large central or segmental pulmonary embolus identified. Right lower lobe consolidation. Dependent atelectasis, left lung base. Linear atelectasis left midlung zone. Severe constipation, partially imaged.
[2016-12-12 18:37] VITALS: PULSE 152
[2016-12-12] MEDS ORDERED: Magnesium Sulfate 1 gm in D5W 1 GM/100 ML BAG IVPB ONE (19:32)
[2016-12-12] MEDS ORDERED: Potassium Chloride 20 mEq/15 ml LIQ UD PO ONE ×2 (19:33→21:36)
[2016-12-12] MEDS ORDERED: Labetalol 25mg/5ml Syringe IVP STA (19:54)
[2016-12-12] MEDS ORDERED: Esmolol 2,500 MG in Sodium Chloride 0.9% 240 ML IV SCH (20:15)
[2016-12-12] MEDS ORDERED: Midazolam 2 MG/2 ML VIAL IVP ONE ×2 (20:44→23:22)
[2016-12-12] MEDS ORDERED: Amiodarone 150mg/3 ml vial ONE (20:54)
--- NOTE | 2016-12-12 21:34 | CP.PCM.CON ---
History of Present Illness - History of Present Illness History of Present Illness: Aurelia seen and examined at 7:15 pm. Tranferred to ICU for a telemetry bed for cardizem drip ordered for a. flutter. No previous arrythmias, but today the patient went into a. flutter, not respondingHe als to cardizem drip or digoxin. Patient is not asymptomatic. Labetalol and esmolol drip have no effect. Before shocking will try amiodarone as a last resort. Upgrade to ICU. Past Patient History - Infectious Disease Hx of Infectious Diseases: None - Past Medical History & Family History Past Medical History?: No - Past Social History Smoking Status: Former Smoker - CARDIAC Hx Cardiac Disorders: Yes Hx Hypertension: Yes - PULMONARY Hx Respiratory Disorders: Yes - NEUROLOGICAL Hx Neurological Disorder: Yes - HEENT Hx HEENT Problems: Yes - RENAL Hx Chronic Kidney Disease: Yes - ENDOCRINE/METABOLIC Hx Endocrine Disorders: Yes - HEMATOLOGICAL/ONCOLOGICAL Hx Blood Disorders: Yes - INTEGUMENTARY Hx Dermatological Problems: Yes - MUSCULOSKELETAL/RHEUMATOLOGICAL Hx Arthritis: Yes - GASTROINTESTINAL Hx Gastrointestinal Disorders: Yes - GENITOURINARY/GYNECOLOGICAL Hx Genitourinary Disorders: Yes - PSYCHIATRIC Hx Psychophysiologic Disorder: Yes Hx Substance Use: No - SURGICAL HISTORY Hx Surgeries: No - ANESTHESIA Hx Anesthesia: No Meds Allergies/Adverse Reactions: Allergies Allergy/AdvReac Type Severity Reaction Status Date / Time No Known Allergies Allergy Verified 10/18/16 15:57 - Medications Medications: Current Medications Acetaminophen (Tylenol 325mg Tab) 650 mg PO Q6 PRN PRN Reason: Fever >100.4 F Last Admin: 11/29/16 13:19 Dose: 650 mg Aspirin (Aspirin Chewable) 81 mg GT DAILY [facility] Last Admin: 12/11/16 09:55 Dose: 81 mg Tigecycline 50 mg/ Sodium (Chloride) 50 mls @ 50 mls/hr IVPB Q12H [facility] Last Admin: 12/12/16 21:15 Dose: 50 mls/hr Sodium Chloride (Sodium Chloride 0.9%) 1,000 mls @ 100 mls/hr IV .Q10H [facility] Last Admin: 12/12/16 15:19 Dose: 100 mls/hr Diltiazem HCl 125 mg/ Dextrose 125 mls @ 5 mls/hr IV .Q24H [facility]; 5 MG/HR PRN Reason: Protocol Last Titration: 12/12/16 18:35 Dose: 15 mg/hr, 15 mls/hr Amiodarone HCl 900 mg/ (Dextrose) 500 mls @ 33.33 mls/hr IV .Q15H1M OMAR; 1 MG/ MIN PRN Reason: Protocol Stop: 12/13/16 03:30 Amiodarone HCl 900 mg/ (Dextrose) 500 mls @ 16.66 mls/hr IV .Q24H OMAR; 0.5 MG/ MIN PRN Reason: Protocol Stop: 12/13/16 22:00 Rosuvastatin Calcium (Crestor) 5 mg GT HS [facility] Last Admin: 12/11/16 21:07 Dose: 5 mg Saccharomyces Boulardii (Florastor) 250 mg PO BID [facility] Last Admin: 12/12/16 19:18 Dose: 250 mg Results - Vital Signs Recent Vital Signs: Last Vital Signs Temp 98.4 F 12/12/16 15:00 Pulse 145 H 12/12/16 21:10 Resp 20 12/12/16 21:10 BP 90/48 L 12/12/16 21:10 Pulse Ox 99 12/12/16 21:10 - Labs Result Diagrams: 12/12/16 07:27 12/12/16 07:27 Labs: Laboratory Results - last 24 hr 12/11/16 12/12/16 12/12/16 21:24 07:25 07:27 WBC RBC Hgb Hct MCV MCH MCHC RDW Plt Count MPV Neut % (Auto) Lymph % (Auto) [place] % (Auto) Eos % (Auto) Baso % (Auto) Neut # Lymph # [place] # Eos # Baso # D-Dimer, Quantitative pCO2 pO2 HCO3 ABG pH ABG Total CO2 ABG O2 Saturation ABG Base Excess ABG Potassium Glucose Lactate Sodium 138 Potassium 4.2 Chloride 103 Carbon Dioxide 24 Anion Gap 15 BUN 28 H Creatinine 0.6 L Est GFR ( Amer) > 60 Est GFR (Non-Af Amer) > 60 POC Glucose (mg/dL) 121 H 85 Random Glucose 92 Calcium 7.8 L Phosphorus Magnesium 2.0 Total Bilirubin 0.6 AST 41 ALT 88 H D Alkaline Phosphatase 127 H Total Creatine Kinase CK-MB (Mass) Troponin I, Quant Total Protein 6.3 Albumin 2.9 L Globulin 3.4 Albumin/Globulin Ratio 0.9 L Prostate Specific Ag 2.56 Procalcitonin Free T4 TSH 3rd Generation Arterial Blood Potassium 12/12/16 12/12/16 12/12/16 07:27 07:27 09:17 WBC 10.2 RBC 4.22 L Hgb 11.2 L Hct 35.0 MCV 82.9 MCH 26.6 L MCHC 32.1 L RDW 15.2 H Plt Count 322 MPV 10.2 Neut % (Auto) 62.6 Lymph % (Auto) 22.7 [place] % (Auto) 11.8 H Eos % (Auto) 2.5 Baso % (Auto) 0.4 Neut # 6.4 Lymph # 2.3 [place] # 1.2 H Eos # 0.3 Baso # 0.0 D-Dimer, Quantitative pCO2 29 L pO2 193 H HCO3 25.8 ABG pH 7.51 H ABG Total CO2 24.0 ABG O2 Saturation 99.7 H ABG Base Excess 1.0 ABG Potassium 4.4 Glucose 127 H Lactate 0.7 Sodium 137.0 Potassium Chloride 115.0 H Carbon Dioxide Anion Gap BUN Creatinine Est GFR ( Amer) Est GFR (Non-Af Amer) POC Glucose (mg/dL) Random Glucose Calcium Phosphorus 4.1 Magnesium Total Bilirubin AST ALT Alkaline Phosphatase Total Creatine Kinase 52 L CK-MB (Mass) 0.78 Troponin I, Quant 0.0160 Total Protein Albumin Globulin Albumin/Globulin Ratio Prostate Specific Ag Procalcitonin Free T4 TSH 3rd Generation Arterial Blood Potassium 4.4 12/12/16 12/12/16 12/12/16 11:25 13:54 14:15 WBC RBC Hgb Hct MCV MCH MCHC RDW Plt Count MPV Neut % (Auto) Lymph % (Auto) [place] % (Auto) Eos % (Auto) Baso % (Auto) Neut # Lymph # [place] # Eos # Baso # D-Dimer, Quantitative pCO2 pO2 HCO3 ABG pH ABG Total CO2 ABG O2 Saturation ABG Base Excess ABG Potassium Glucose Lactate Sodium Potassium Chloride Carbon Dioxide Anion Gap BUN Creatinine Est GFR ( Amer) Est GFR (Non-Af Amer) POC Glucose (mg/dL) 114 H 103 Random Glucose Calcium Phosphorus Magnesium Total Bilirubin AST ALT Alkaline Phosphatase Total Creatine Kinase CK-MB (Mass) Troponin I, Quant Total Protein Albumin Globulin Albumin/Globulin Ratio Prostate Specific Ag Procalcitonin 0.11 L Free T4 TSH 3rd Generation Arterial Blood Potassium 12/12/16 12/12/16 12/12/16 14:15 14:15 17:02 WBC RBC Hgb Hct MCV MCH MCHC RDW Plt Count MPV Neut % (Auto) Lymph % (Auto) [place] % (Auto) Eos % (Auto) Baso % (Auto) Neut # Lymph # [place] # Eos # Baso # D-Dimer, Quantitative 642 H pCO2 pO2 HCO3 ABG pH ABG Total CO2 ABG O2 Saturation ABG Base Excess ABG Potassium Glucose Lactate Sodium Potassium Chloride Carbon Dioxide Anion Gap BUN Creatinine Est GFR ( Amer) Est GFR (Non-Af Amer) POC Glucose (mg/dL) Random Glucose Calcium Phosphorus Magnesium Total Bilirubin AST ALT Alkaline Phosphatase Total Creatine Kinase CK-MB (Mass) Troponin I, Quant Total Protein Albumin Globulin Albumin/Globulin Ratio Prostate Specific Ag Procalcitonin Free T4 1.11 TSH 3rd Generation 2.10 Arterial Blood Potassium
[2016-12-12] MEDS ORDERED: Phenylephrine 30 MG in Dextrose 5% In Water 250 ML IV PRN (22:58)
[2016-12-13] MEDS: Sodium Chloride 0.9% 1,000 ML IV SCH ×3 (00:25→20:45)
[2016-12-13 06:43] LABS: BASO % 0.5 % (0.0-2.0); EOS # 0.1 K/uL (0.0-0.7); EOS % 1.5 % (0.0-4.0); HEMATOCRIT 29.7 % (35.0-51.0); LYMPH # 2.1 K/uL (1.0-4.3); LYMPH % 26.3 % (20.0-40.0); MEAN CELL VOLUME 81.8 fL (80.0-94.0); MEAN CORPUSCULAR HEMOGLOBIN 26.8 pg (27.0-31.0); MEAN CORPUSCULAR HGB CONC 32.8 g/dL (33.0-37.0); MEAN PLATELET VOLUME 10.3 fL (7.2-11.7); MONO # 0.5 K/uL (0.0-0.8); MONO % 6.7 % (0.0-10.0); NRBC % 0.1 % (0.0-2.0); RED CELL DISTRIBUTION WIDTH 15.3 % (11.5-14.5); WHITE BLOOD COUNT 8.1 K/uL (4.8-10.8)
[2016-12-13 06:45] LABS: CHLORIDE 103 mmol/L (98-107); POTASSIUM 4.2 mmol/L (3.6-5.2); SODIUM 137 mmol/L (132-148)
[2016-12-13 06:47] LABS: GFR AFRICAN-AMERICAN > 60
[2016-12-13 06:48] LABS: BLOOD UREA NITROGEN 24 mg/dL (9-20); CALCIUM 7.7 mg/dl (8.6-10.4); CARBON DIOXIDE 24 mmol/L (22-30); GLUCOSE,RANDOM 84 mg/dL (75-110); PHOSPHOROUS 4.8 mg/dL (2.5-4.5)
[2016-12-13 06:49] LABS: MAGNESIUM 2.2 mg/dL (1.6-2.3)
--- NOTE | 2016-12-13 07:37 | CP.PCM.PN ---
Subjective - Date & Time of Evaluation Date of Evaluation: 12/13/16 Time of Evaluation: 07:35 - Subjective Subjective: Cardiology Progress Note Dr. Brock Patient seen and examined at the bedside. No acute distress. Patient became hypotensive overnight while on cardizem and amiodarone drips. His SVT was non- responsive to cardizem, amiodarone, and digoxin. The patient was electrically cardioverted at 23:39 on 12/12/16 with 50J (synchronized and biphasic). Following the cardioversion, the patient returned to normal sinus rhythm. Nursing staff reports no issues. Patient is no longer tachycardic on telemetric monitor. Patient continues to deny all cardiopulmonary complaints at this time. 12 point review of systems completes and negative for acute complaints. Objective - Vital Signs/Intake and Output Vital Signs (last 24 hours): Temp Pulse Resp BP Pulse Ox 97.7 F 65 10 L 101/70 100 12/13/16 04:00 12/13/16 07:00 12/13/16 07:00 12/13/16 07:00 12/13/16 07:00 Intake and Output: 12/13/16 12/13/16 06:59 18:59 Intake Total 1736.8 100 Output Total 525 Balance 1211.8 100 - Medications Medications: Current Medications Acetaminophen (Tylenol 325mg Tab) 650 mg PO Q6 PRN PRN Reason: Fever >100.4 F Last Admin: 11/29/16 13:19 Dose: 650 mg Aspirin (Aspirin Chewable) 81 mg GT DAILY [facility] Last Admin: 12/11/16 09:55 Dose: 81 mg Tigecycline 50 mg/ Sodium (Chloride) 50 mls @ 50 mls/hr IVPB Q12H [facility] Last Admin: 12/12/16 21:15 Dose: 50 mls/hr Sodium Chloride (Sodium Chloride 0.9%) 1,000 mls @ 100 mls/hr IV .Q10H [facility] Last Admin: 12/13/16 00:25 Dose: 100 mls/hr Rosuvastatin Calcium (Crestor) 5 mg GT HS [facility] Last Admin: 12/12/16 21:45 Dose: 5 mg Saccharomyces Boulardii (Florastor) 250 mg PO BID [facility] Last Admin: 12/12/16 19:18 Dose: 250 mg - Labs Labs: 12/13/16 06:29 05/02/17 06:29 PT 12.9 SECONDS (9.7-12.2) H 11/15/16 13:58 INR 1.2 11/15/16 13:58 APTT 39 SECONDS (21-34) H 11/15/16 13:58 - Additional Findings Additional findings: - Constitutional Appears: Chronically Ill - Head Exam Head Exam: ATRAUMATIC, NORMAL INSPECTION, NORMOCEPHALIC - Eye Exam Eye Exam: EOMI, Normal appearance Pupil Exam: NORMAL ACCOMODATION - ENT Exam ENT Exam: Mucous Membranes Moist, Normal Exam - Neck Exam Neck exam: Positive for: Full Rom, Normal Inspection. Negative for: Tenderness - Respiratory Exam Respiratory Exam: Clear to Auscultation Bilateral, NORMAL BREATHING PATTERN. absent: Decreased Breath Sounds, Rhonchi, Wheezes - Cardiovascular Exam Cardiovascular Exam: REGULAR RHYTHM, +S1, +S2, RRR. absent: Tachycardia, Diastolic murmur, RRR, Systolic Murmur - GI/Abdominal Exam GI & Abdominal Exam: Normal Bowel Sounds, Soft. absent: Distended, Firm, Guarding, Tenderness - Extremities Exam Extremities exam: Positive for: normal capillary refill, normal inspection, pedal pulses present - Neurological Exam Neurological exam: Alert, CN II-XII Intact, Oriented x3 - Skin Skin Exam: Dry, Intact, Normal Color, Warm Assessment and Plan (1) Supraventricular tachycardia Assessment & Plan: AVNRT vs Atrial flutter resolution s/p 50J synchronized/biphasic electric cardioversion overnight ( @ 23:39pm) Resume Amiodarone 200mg PO Daily DC digoxin, cardizem continue telemetric monitoring repeat EKG Echo ordered will continue to monitor continue aspirin 81mg GT daily continue crestor 5mg GT daily 12/12/16 16:45 EKG- Supraventricular tachycardia (151bpm), normal axis, normal intervals, LVH 10/21/16 Echo- 72% EF with normal systolic and diastolic function 10/21/16- EKG sinus tachy (120bpm), jackelin axis, LVH, St and T wave abnormality in lateral leads (consider ischemia), normal intervals 10/18/16- EKG- normal sinus rhythm, normal axis, normal intervals, LVH Case Discussed with Dr. Vinod Salas PGY1 Status: Resolved
--- NOTE | 2016-12-13 09:36 | CP.PCM.CON ---
<Alexandria Gilman - Last Filed: 12/13/16 15:40> History of Present Illness - History of Present Illness History of Present Illness: Critical Care Note HPI: 56 M with a PMH notable for HTN and intracranial bleed presenting for ICU evaluation of acute onset tachycardia. Patient initially presented for intracranial bleed on 10/18/16. The patient was managed in the ICU until 10/29/16 then transferred to the med-surg floor. Yesterday the patient was found to have supraventricular tachycardia vs atrial flutter. When brought down to the ICU, he became hypotensive overnight while on cardizem and amiodarone drips. His SVT was non-responsive to cardizem, amiodarone, and digoxin. The patient was electrically cardioverted at 23:39 on 12/12/16 with 50J (synchronized and biphasic). Following the cardioversion, the patient returned to normal sinus rhythm. Nursing staff reports no issues. Patient is no longer tachycardic on telemetric monitor. No further events overnight as per nursing. Currently patient has no acute complaints. PMHx: HTN PSHx: Unknown Meds: As per MAR All: NKDA SHx: Physician, recent immigrant from [facility] FHx: Unknown Past Patient History - Infectious Disease Hx of Infectious Diseases: None - Past Medical History & Family History Past Medical History?: No - Past Social History Smoking Status: Former Smoker - CARDIAC Hx Cardiac Disorders: Yes Hx Hypertension: Yes - PULMONARY Hx Respiratory Disorders: Yes - NEUROLOGICAL Hx Neurological Disorder: Yes - HEENT Hx HEENT Problems: Yes - RENAL Hx Chronic Kidney Disease: Yes - ENDOCRINE/METABOLIC Hx Endocrine Disorders: Yes - HEMATOLOGICAL/ONCOLOGICAL Hx Blood Disorders: Yes - INTEGUMENTARY Hx Dermatological Problems: Yes - MUSCULOSKELETAL/RHEUMATOLOGICAL Hx Arthritis: Yes - GASTROINTESTINAL Hx Gastrointestinal Disorders: Yes - GENITOURINARY/GYNECOLOGICAL Hx Genitourinary Disorders: Yes - PSYCHIATRIC Hx Psychophysiologic Disorder: Yes Hx Substance Use: No - SURGICAL HISTORY Hx Surgeries: No - ANESTHESIA Hx Anesthesia: No Meds Allergies/Adverse Reactions: Allergies Allergy/AdvReac Type Severity Reaction Status Date / Time No Known Allergies Allergy Verified 10/18/16 15:57 - Medications Medications: Current Medications Acetaminophen (Tylenol 325mg Tab) 650 mg PO Q6 PRN PRN Reason: Fever >100.4 F Last Admin: 11/29/16 13:19 Dose: 650 mg Aspirin (Aspirin Chewable) 81 mg GT DAILY [facility] Last Admin: 12/11/16 09:55 Dose: 81 mg Tigecycline 50 mg/ Sodium (Chloride) 50 mls @ 50 mls/hr IVPB Q12H [facility] Last Admin: 12/12/16 21:15 Dose: 50 mls/hr Sodium Chloride (Sodium Chloride 0.9%) 1,000 mls @ 100 mls/hr IV .Q10H [facility] Last Admin: 12/13/16 00:25 Dose: 100 mls/hr Rosuvastatin Calcium (Crestor) 5 mg GT HS [facility] Last Admin: 12/12/16 21:45 Dose: 5 mg Saccharomyces Boulardii (Florastor) 250 mg PO BID [facility] Last Admin: 12/12/16 19:18 Dose: 250 mg Results - Vital Signs Recent Vital Signs: Last Vital Signs Temp 98.0 F 12/13/16 08:00 Pulse 81 12/13/16 08:00 Resp 10 L 12/13/16 08:00 BP 105/72 12/13/16 08:00 Pulse Ox 100 12/13/16 08:00 - Labs Result Diagrams: 12/13/16 06:29 12/13/16 06:29 Labs: Laboratory Results - last 24 hr 12/12/16 12/12/16 12/12/16 11:25 13:54 14:15 WBC RBC Hgb Hct MCV MCH MCHC RDW Plt Count MPV Neut % (Auto) Lymph % (Auto) [place] % (Auto) Eos % (Auto) Baso % (Auto) Neut # Lymph # [place] # Eos # Baso # D-Dimer, Quantitative Sodium Potassium Chloride Carbon Dioxide Anion Gap BUN Creatinine Est GFR ( Amer) Est GFR (Non-Af Amer) POC Glucose (mg/dL) 114 H 103 Random Glucose Calcium Phosphorus Magnesium Procalcitonin 0.11 L Free T4 TSH 3rd Generation 12/12/16 12/12/16 12/12/16 14:15 14:15 17:02 WBC RBC Hgb Hct MCV MCH MCHC RDW Plt Count MPV Neut % (Auto) Lymph % (Auto) [place] % (Auto) Eos % (Auto) Baso % (Auto) Neut # Lymph # [place] # Eos # Baso # D-Dimer, Quantitative 642 H Sodium Potassium Chloride Carbon Dioxide Anion Gap BUN Creatinine Est GFR ( Amer) Est GFR (Non-Af Amer) POC Glucose (mg/dL) Random Glucose Calcium Phosphorus Magnesium Procalcitonin Free T4 1.11 TSH 3rd Generation 2.10 12/13/16 12/13/16 06:29 06:29 WBC 8.1 RBC 3.63 L Hgb 9.8 L Hct 29.7 L MCV 81.8 MCH 26.8 L MCHC 32.8 L RDW 15.3 H Plt Count 285 MPV 10.3 Neut % (Auto) 65.0 Lymph % (Auto) 26.3 [place] % (Auto) 6.7 Eos % (Auto) 1.5 Baso % (Auto) 0.5 Neut # 5.2 Lymph # 2.1 [place] # 0.5 Eos # 0.1 Baso # 0.0 D-Dimer, Quantitative Sodium 137 Potassium 4.2 Chloride 103 Carbon Dioxide 24 Anion Gap 14 BUN 24 H Creatinine 0.7 L Est GFR ( Amer) > 60 Est GFR (Non-Af Amer) > 60 POC Glucose (mg/dL) Random Glucose 84 Calcium 7.7 L Phosphorus 4.8 H Magnesium 2.2 Procalcitonin Free T4 TSH 3rd Generation Assessment & Plan - Assessment and Plan (Free Text) Plan: Tachycardia (acute) * Elevated D-dimer--> Ct angio negative for PE; awaiting dopplers - right peroneal thrombosis (started on Heparin 5000 Q12H). * 12/12/16 tachycardia-->Adenosine given --> Atrial flutter-->on IV digoxin and IV cardizem drip * Cardiology consulted (Dr. Brock) on board; case discussed. * SVT was non-responsive to cardizem, amiodarone, and digoxin. The patient was electrically cardioverted at 23:39 on 12/12/16 with 50J (synchronized and biphasic ). Following the cardioversion, the patient returned to normal sinus rhythm. Nursing staff reports no issues. Patient is no longer tachycardic on telemetric monitor. Intracranial hemorrhage 11/03/16 CT Head; Interval decrease in size and density left basal ganglia hematoma; well-circumscribed peripheral rim of low attentuation edema about hematoma; combination of brain edema and brain necrosis; intraventricular hemorrhage has diminished. Ventricles hae also decreased in size temporal horns and atria remain prominent. Persistent compression of the 3rd and left lateral ventricle * Neurosurgery per initial consult-->patient's prognosis dismal at beginning of admission * Neurology (Dr. Simpson) on board-->per 10/26 note: patient has attained maximum response from neuro point of view from this admission; keep nutritional status and avoid infectious; treat with peg/trach; no antiplatelets for next 4-6 weeks (maintain MAP ~100) * On baby aspirin 81mg PO daily; discussed with neurology with 11/22/16 Urinary Tract Infection (current) * 12/08/16 VRE UTI * Multiple UTI infections * Yeast urine treated with Diflucan during hospitalization * Pseudomonas treated with Cipro during hospitalization * VRE UTI currently treated with Tigecycline and contact isolation * [place] condom catheter changed recently * Infectious disease (Dr. Chavez) on board * Tigecycline 50mg IV Q 12hours (active since 12/11/16) * Florastor 250mg PO bid * Monitor LFTS Acute respiratory failure (resolved) * s/p tracheostomy 10/28/16 * Patient completed trach collar. Prophylactic care * s/p peg placement * Weaned off vent; saturating well s/p decanulation * Continue with aggressive PT/OT--> latest PT noted recommending for subacute/ LTAC * on peg feedings/fluid flushes * Reconsult PT/OT and swallow given improvements in motor function * Palliative care reconsult for goals of care * Family trying to secure insurance for the patient and coordinate with case management Disposition * Transferred to tele-ICU given atrial flutter requiring IV Digoxin and IV Cardizem and monitoring of heart rate, may need cardioversion; discussed with cardiology * Patient will need IV abx for VRE UTI at this time. Not stable for discharge given resistant antibiotic for current UTI; will need IV abx to address pneumonia when heart rate is stablized * Pending insurance for [facility] care facility for rehabilitation and peg feedings, will need constant monitoring. Patient currently wears mittens to prevent him from pulling on his tubes and is unsafe for home. Will need to clarify with family regarding the type of care patient will need with both patient's son and daughters. DW Kalina Avendaño DO, PGY-1 <Elfego Zamarripa - Last Filed: 12/13/16 19:15> Meds - Medications Medications: Current Medications Acetaminophen (Tylenol 325mg Tab) 650 mg PO Q6 PRN PRN Reason: Fever >100.4 F Last Admin: 11/29/16 13:19 Dose: 650 mg Amiodarone HCl (Cordarone) 200 mg GT DAILY [facility] Aspirin (Aspirin Chewable) 81 mg GT DAILY [facility] Last Admin: 12/13/16 12:40 Dose: 81 mg Famotidine (Pepcid) 20 mg PO DAILY [facility] Heparin Sodium (Porcine) (Heparin) 5,000 units SC Q12 [facility] Tigecycline 50 mg/ Sodium (Chloride) 50 mls @ 50 mls/hr IVPB Q12H [facility] Last Admin: 12/13/16 09:52 Dose: 50 mls/hr Sodium Chloride (Sodium Chloride 0.9%) 1,000 mls @ 100 mls/hr IV .Q10H [facility] Last Admin: 12/13/16 10:08 Dose: 100 mls/hr Rosuvastatin Calcium (Crestor) 5 mg GT HS [facility] Last Admin: 12/12/16 21:45 Dose: 5 mg Saccharomyces Boulardii (Florastor) 250 mg PO BID [facility] Last Admin: 12/13/16 18:04 Dose: 250 mg Results - Vital Signs Recent Vital Signs: Last Vital Signs Temp 98.3 F 12/13/16 16:00 Pulse 85 12/13/16 19:01 Resp 13 12/13/16 19:01 BP 130/88 12/13/16 19:00 Pulse Ox 100 12/13/16 19:01 - Labs Result Diagrams: 12/13/16 06:29 12/13/16 06:29 Labs: Laboratory Results - last 24 hr 12/13/16 12/13/16 12/13/16 06:29 06:29 10:12 WBC 8.1 RBC 3.63 L Hgb 9.8 L Hct 29.7 L MCV 81.8 MCH 26.8 L MCHC 32.8 L RDW 15.3 H Plt Count 285 MPV 10.3 Neut % (Auto) 65.0 Lymph % (Auto) 26.3 [place] % (Auto) 6.7 Eos % (Auto) 1.5 Baso % (Auto) 0.5 Neut # 5.2 Lymph # 2.1 [place] # 0.5 Eos # 0.1 Baso # 0.0 Sodium 137 Potassium 4.2 Chloride 103 Carbon Dioxide 24 Anion Gap 14 BUN 24 H Creatinine 0.7 L Est GFR ( Amer) > 60 Est GFR (Non-Af Amer) > 60 Random Glucose 84 Calcium 7.7 L Phosphorus 4.8 H Magnesium 2.2 Urine Color Yellow Urine Clarity Clear Urine pH 5.0 Ur Specific [place] 1.035 H Urine Protein Negative Urine Glucose (UA) Normal Urine Ketones Negative Urine Blood Negative Urine Nitrate Negative Urine Bilirubin Negative Urine Urobilinogen 2.0 Ur Leukocyte Esterase Neg Urine WBC (Auto) 2 Urine RBC (Auto) 5 H Ur Squamous Epith Cells 3 Attending/Attestation - Attestation I have personally seen and examined this patient.: Yes I have fully participated in the care of the patient.: Yes I have reviewed all pertinent clinical information: Yes Notes (Text): 12/13/16 19:15 Patient is doing well currently continue the current treatment.
[2016-12-13] MEDS: Saccharomyces Boulardi 250 mg Cap PO SCH ×2 (09:53→18:04)
[2016-12-13 10:20] LABS: RBC URINE 5 /hpf (0-3); URINE BILIRUBIN NEGATIVE (NEGATIVE); URINE BLOOD NEGATIVE (NEGATIVE); URINE COLOR Yellow (YELLOW); URINE GLUCOSE (UA) NORMAL (Normal); URINE KETONE NEGATIVE (NEGATIVE); URINE LEUKOCYTE ESTERASE NEG Leu/uL (Negative); URINE PROTEIN NEGATIVE (NEGATIVE); WBC URINE 2 /hpf (0-5)
--- NOTE | 2016-12-13 14:25 | CP.PCM.CON ---
History of Present Illness - History of Present Illness History of Present Illness: Palliative consult requested by Marcy MALCOLM Reason: Goals of care discussion Patient is a 56 yo male , has been at the hospital for about 2 months now. On 10/18/2016 patient sustained CVA with right hemiparesis, , acute respiratory distress, was intubated and brought to the hospital. Over the last two months of this hospital stay, patient has recovered to certain point; he is now S/P trach, breaths on his own , and being fed via PEG. On 12/12/2016 patient underwent A flutter, thr rythm converted to SR and patient transferred to ICU for further care. Patient found to have VRE in the urine and Cipro and Tugacil IV on board. PMH: HTN, was not taking any medication, except garlic supplement Soc. Hx: Came from [place] in April of last year, but , lives with his daughter Ludmila Sal.Hx: Unknown Review of Systems - Review of Systems Systems not reviewed;Unavailable: Acuity of Condition Past Patient History - Infectious Disease Hx of Infectious Diseases: None - Past Medical History & Family History Past Medical History?: No - Past Social History Smoking Status: Former Smoker - CARDIAC Hx Cardiac Disorders: Yes Hx Hypertension: Yes - PULMONARY Hx Respiratory Disorders: Yes - NEUROLOGICAL Hx Neurological Disorder: Yes - HEENT Hx HEENT Problems: Yes - RENAL Hx Chronic Kidney Disease: Yes - ENDOCRINE/METABOLIC Hx Endocrine Disorders: Yes - HEMATOLOGICAL/ONCOLOGICAL Hx Blood Disorders: Yes - INTEGUMENTARY Hx Dermatological Problems: Yes - MUSCULOSKELETAL/RHEUMATOLOGICAL Hx Arthritis: Yes - GASTROINTESTINAL Hx Gastrointestinal Disorders: Yes - GENITOURINARY/GYNECOLOGICAL Hx Genitourinary Disorders: Yes - PSYCHIATRIC Hx Psychophysiologic Disorder: Yes Hx Substance Use: No - SURGICAL HISTORY Hx Surgeries: No - ANESTHESIA Hx Anesthesia: No Meds Allergies/Adverse Reactions: Allergies Allergy/AdvReac Type Severity Reaction Status Date / Time No Known Allergies Allergy Verified 10/18/16 15:57 - Medications Medications: Current Medications Acetaminophen (Tylenol 325mg Tab) 650 mg PO Q6 PRN PRN Reason: Fever >100.4 F Last Admin: 11/29/16 13:19 Dose: 650 mg Aspirin (Aspirin Chewable) 81 mg GT DAILY [facility] Last Admin: 12/13/16 12:40 Dose: 81 mg Famotidine (Pepcid) 20 mg PO DAILY [facility] Heparin Sodium (Porcine) (Heparin) 5,000 units SC Q12 [facility] Tigecycline 50 mg/ Sodium (Chloride) 50 mls @ 50 mls/hr IVPB Q12H [facility] Last Admin: 12/13/16 09:52 Dose: 50 mls/hr Sodium Chloride (Sodium Chloride 0.9%) 1,000 mls @ 100 mls/hr IV .Q10H [facility] Last Admin: 12/13/16 10:08 Dose: 100 mls/hr Rosuvastatin Calcium (Crestor) 5 mg GT HS [facility] Last Admin: 12/12/16 21:45 Dose: 5 mg Saccharomyces Boulardii (Florastor) 250 mg PO BID [facility] Last Admin: 12/13/16 09:53 Dose: 250 mg Physical Exam - Constitutional Appears: Chronically Ill - Head Exam Head Exam: ATRAUMATIC, NORMAL INSPECTION, NORMOCEPHALIC - Eye Exam Eye Exam: EOMI, Normal appearance, PERRL Pupil Exam: NORMAL ACCOMODATION, PERRL - ENT Exam ENT Exam: Mucous Membranes Dry, Normal Exam - Neck Exam Additional comments: S/P Trach - Respiratory Exam Respiratory Exam: Clear to Auscultation Bilateral, NORMAL BREATHING PATTERN - Cardiovascular Exam Cardiovascular Exam: Tachycardia, REGULAR RHYTHM - GI/Abdominal Exam GI & Abdominal Exam: Diminished Bowel Sounds Additional comments: PEG - Rectal Exam Rectal Exam: Deferred - Exam Exam: NORMAL INSPECTION - Extremities Exam Extremities exam: Positive for: normal inspection - Back Exam Back exam: NORMAL INSPECTION - Neurological Exam Neurological exam: Alert, Altered - Psychiatric Exam Psychiatric exam: Flat Affect - Skin Skin Exam: Normal Color, Warm Results - Vital Signs Recent Vital Signs: Last Vital Signs Temp 98.0 F 12/13/16 12:00 Pulse 85 12/13/16 13:00 Resp 13 12/13/16 13:00 BP 123/82 12/13/16 13:00 Pulse Ox 100 12/13/16 13:00 - Labs Result Diagrams: 12/13/16 06:29 12/13/16 06:29 Labs: Laboratory Results - last 24 hr 12/12/16 12/12/16 12/12/16 14:15 14:15 14:15 WBC RBC Hgb Hct MCV MCH MCHC RDW Plt Count MPV Neut % (Auto) Lymph % (Auto) [place] % (Auto) Eos % (Auto) Baso % (Auto) Neut # Lymph # [place] # Eos # Baso # D-Dimer, Quantitative 642 H Sodium Potassium Chloride Carbon Dioxide Anion Gap BUN Creatinine Est GFR ( Amer) Est GFR (Non-Af Amer) Random Glucose Calcium Phosphorus Magnesium Procalcitonin 0.11 L Free T4 TSH 3rd Generation 2.10 Urine Color Urine Clarity Urine pH Ur Specific [place] Urine Protein Urine Glucose (UA) Urine Ketones Urine Blood Urine Nitrate Urine Bilirubin Urine Urobilinogen Ur Leukocyte Esterase Urine WBC (Auto) Urine RBC (Auto) Ur Squamous Epith Cells 12/12/16 12/13/16 12/13/16 17:02 06:29 06:29 WBC 8.1 RBC 3.63 L Hgb 9.8 L Hct 29.7 L MCV 81.8 MCH 26.8 L MCHC 32.8 L RDW 15.3 H Plt Count 285 MPV 10.3 Neut % (Auto) 65.0 Lymph % (Auto) 26.3 [place] % (Auto) 6.7 Eos % (Auto) 1.5 Baso % (Auto) 0.5 Neut # 5.2 Lymph # 2.1 [place] # 0.5 Eos # 0.1 Baso # 0.0 D-Dimer, Quantitative Sodium 137 Potassium 4.2 Chloride 103 Carbon Dioxide 24 Anion Gap 14 BUN 24 H Creatinine 0.7 L Est GFR ( Amer) > 60 Est GFR (Non-Af Amer) > 60 Random Glucose 84 Calcium 7.7 L Phosphorus 4.8 H Magnesium 2.2 Procalcitonin Free T4 1.11 TSH 3rd Generation Urine Color Urine Clarity Urine pH Ur Specific [place] Urine Protein Urine Glucose (UA) Urine Ketones Urine Blood Urine Nitrate Urine Bilirubin Urine Urobilinogen Ur Leukocyte Esterase Urine WBC (Auto) Urine RBC (Auto) Ur Squamous Epith Cells 12/13/16 10:12 WBC RBC Hgb Hct MCV MCH MCHC RDW Plt Count MPV Neut % (Auto) Lymph % (Auto) [place] % (Auto) Eos % (Auto) Baso % (Auto) Neut # Lymph # [place] # Eos # Baso # D-Dimer, Quantitative Sodium Potassium Chloride Carbon Dioxide Anion Gap BUN Creatinine Est GFR ( Amer) Est GFR (Non-Af Amer) Random Glucose Calcium Phosphorus Magnesium Procalcitonin Free T4 TSH 3rd Generation Urine Color Yellow Urine Clarity Clear Urine pH 5.0 Ur Specific [place] 1.035 H Urine Protein Negative Urine Glucose (UA) Normal Urine Ketones Negative Urine Blood Negative Urine Nitrate Negative Urine Bilirubin Negative Urine Urobilinogen 2.0 Ur Leukocyte Esterase Neg Urine WBC (Auto) 2 Urine RBC (Auto) 5 H Ur Squamous Epith Cells 3 Assessment & Plan - Assessment and Plan (Free Text) Assessment: Palliative consult Code status Full Code, no advance directive on chart, PPS 20%, ROS unobtainable due to acuity of condition I reviewed medical records, all diagnostic studies, examined patient in the bed , discussed his condition with nursing and his daughter Ludmila over the phone. ROS obtained from the daughter Ludmila. Patient is alert, makes eye contacts, tries to answer questions but seems not able to. Voice very soft. As per nursing patient is able to answer simple questions. I asked patient who Ludmila was and he could not answer it. Patient is not in acute distress. His VS are WNL. HB 9.8 and WBC 8.1. There is Right hemiparesis. Patient was OOB to chair with assistance, today. His PEG is functioning. I discussed goals of care with his daughter Ludmila over the phone. Patient's Shalini ( [phone]) is not speaking Arabic and is from the patient. Patient lives with his daughter Ludmila. Ludmila is concerned once her father lives the hospital , she will not be able to help him at home since she has work and school. I suggested family gets together and arrange network of support once patient gets home. Impression * This is young male recovering after the CVA and intracranial hemorrhage * Patient is S/P trach, with PEG * S/P recent A flutter * Right hemiparesis * Significantly limited quality of life due to above mentioned * As per family, there is lack of support at home Suggestion * Assist with ADls * Aspiration precautions * Change dressing to old trach site daily and PRN * PT * Symptomatic Therapy Palliative care will continue to fallow up with this patient on as needed basis. Thank you for consulting palliative care
--- NOTE | 2016-12-13 18:20 | VASCLAB ---
PROCEDURE: Lower Extremity Venous Duplex Exam. HISTORY: Deep vein thrombosis PRIORS: None. TECHNIQUE: Bilateral common femoral, femoral, popliteal and posterior tibial, peroneal and great saphenous veins were evaluated. Flow was assessed with color Doppler, compressibility, assessment of phasic flow and augmentation response. Report prepared by PAULINO Syed FINDINGS: RIGHT: 1. Common Femoral Vein: 1.1. Compressibility - Fully compressible: Thrombus - None : Flow - Phasic: Augmentation -Normal: Reflux - None. 2. Femoral Vein: 2.1. Compressibility - Fully compressible: Thrombus - None : Flow - Phasic: Augmentation -Normal: Reflux - None. 3. Popliteal Vein: 3.1. Compressibility - Fully compressible: Thrombus - None : Flow - Phasic: Augmentation -Normal: Reflux - None. 4. Posterior Tibial Vein: 4.1. Compressibility - Fully compressible: Thrombus - None: Flow - Phasic: Augmentation -Normal: Reflux - None. 5. Peroneal Vein: 5.1. Compressibility - Incompressible: Thrombus - Acute 6. Great Saphenous Vein: 6.1. Not visualized LEFT: 1. Common Femoral Vein: 1.1. Compressibility - Fully compressible: Thrombus - None: Flow - Phasic: Augmentation -Normal: Reflux - None. 2. Femoral Vein: 2.1. Compressibility - Fully compressible: Thrombus - None: Flow - Phasic: Augmentation -Normal: Reflux - None. 3. Popliteal Vein: 3.1. Compressibility - Fully compressible: Thrombus - None : Flow - Phasic: Augmentation -Normal: Reflux - None. 4. Posterior Tibial Vein: 4.1. Compressibility - Fully compressible: Thrombus - None: Flow - Phasic: Augmentation -Normal: Reflux - None. 5. Peroneal Vein: 5.1. Compressibility - Fully compressible: Thrombus - None: Flow - Phasic: Augmentation -Normal: Reflux - None. 6. Great Saphenous Vein: 6.1. Not visualized OTHER FINDINGS: Right: One of the paired peroneal veins, was non compressible. Findings were reported by the vascular manager to Louise Tirado upon completion of this exam. Left: None significant. IMPRESSION: Right: Deep vein thrombosis of the right peroneal vein. Normal valve function noted of the right side. Left: No evidence of deep vein thrombosis of the left lower extremity. Normal valve function noted of the left side.
[2016-12-14 06:45] LABS: BASO # 0.1 K/uL (0.0-0.2); BASO % 0.8 % (0.0-2.0); EOS # 0.4 K/uL (0.0-0.7); EOS % 5.7 % (0.0-4.0); LYMPH # 1.7 K/uL (1.0-4.3); LYMPH % 23.3 % (20.0-40.0); MEAN CELL VOLUME 82.5 fL (80.0-94.0); MEAN CORPUSCULAR HGB CONC 32.8 g/dL (33.0-37.0); MEAN PLATELET VOLUME 10.2 fL (7.2-11.7); MONO # 0.6 K/uL (0.0-0.8); MONO % 7.8 % (0.0-10.0); RED CELL DISTRIBUTION WIDTH 15.3 % (11.5-14.5); WHITE BLOOD COUNT 7.4 K/uL (4.8-10.8)
[2016-12-14] MEDS: Sodium Chloride 0.9% 1,000 ML IV SCH (06:45)
[2016-12-14 06:53] LABS: CHLORIDE 104 mmol/L (98-107); POTASSIUM 4.1 mmol/L (3.6-5.2); SODIUM 134 mmol/L (132-148)
[2016-12-14 06:55] LABS: BILIRUBIN,TOTAL 0.7 mg/dL (0.2-1.3); GFR AFRICAN-AMERICAN > 60
[2016-12-14 06:56] LABS: ALB/GLOB RATIO 0.8 (1.0-2.1); ALKALINE PHOSPHATASE 97 U/L (38-126); ALT/SGPT 65 U/L (21-72); AST/SGOT 23 U/L (17-59); BLOOD UREA NITROGEN 24 mg/dL (9-20); CARBON DIOXIDE 26 mmol/L (22-30); GLUCOSE,RANDOM 80 mg/dL (75-110); PHOSPHOROUS 4.4 mg/dL (2.5-4.5); TOTAL PROTEIN 5.8 g/dL (6.3-8.3)
[2016-12-14 06:57] LABS: CALCIUM 7.9 mg/dl (8.6-10.4)
--- NOTE | 2016-12-14 09:02 | CP.PCM.PN ---
Subjective - Date & Time of Evaluation Date of Evaluation: 12/14/16 Time of Evaluation: 08:45 - Subjective Subjective: Patient was seen and examined. He looks very well at this time. He is able to say that he is not having chest pain, denied palpitations, denied shortness of breath, denied abdominal pain. He was recently brought down to the ICU, with SVT that was difficult to control with cardizem, amiodarone, and digoxin. The patient was electrically cardioverted and then has been in NSR. Nursing staff reports no issues. Patient is no longer tachycardic on tele, most HR are in the 80s to 90s. He is getting PO amiodraone at this time. Hopefully can be moved to the floors today. Objective - Vital Signs/Intake and Output Vital Signs (last 24 hours): Temp Pulse Resp BP Pulse Ox 98.7 F 84 11 L 121/86 98 12/14/16 04:00 12/14/16 07:00 12/14/16 07:00 12/14/16 07:00 12/14/16 07:00 Intake and Output: 12/14/16 12/14/16 06:59 18:59 Intake Total 1650 150 Output Total 2050 Balance -400 150 - Medications Medications: Current Medications Acetaminophen (Tylenol 325mg Tab) 650 mg PO Q6 PRN PRN Reason: Fever >100.4 F Last Admin: 11/29/16 13:19 Dose: 650 mg Amiodarone HCl (Cordarone) 200 mg GT DAILY [facility] Aspirin (Aspirin Chewable) 81 mg GT DAILY [facility] Last Admin: 12/13/16 12:40 Dose: 81 mg Famotidine (Pepcid) 20 mg PO DAILY [facility] Heparin Sodium (Porcine) (Heparin) 5,000 units SC Q12 [facility] Last Admin: 12/13/16 21:13 Dose: 5,000 units Tigecycline 50 mg/ Sodium (Chloride) 50 mls @ 50 mls/hr IVPB Q12H [facility] Last Admin: 12/14/16 08:17 Dose: 50 mls/hr Sodium Chloride (Sodium Chloride 0.9%) 1,000 mls @ 100 mls/hr IV .Q10H [facility] Last Admin: 12/14/16 06:45 Dose: 100 mls/hr Rosuvastatin Calcium (Crestor) 5 mg GT HS [facility] Last Admin: 12/13/16 21:13 Dose: 5 mg Saccharomyces Boulardii (Florastor) 250 mg PO BID [facility] Last Admin: 12/13/16 18:04 Dose: 250 mg - Labs Labs: 12/14/16 06:24 12/14/16 04:00 PT 12.9 SECONDS (9.7-12.2) H 11/15/16 13:58 INR 1.2 11/15/16 13:58 APTT 39 SECONDS (21-34) H 11/15/16 13:58 - Constitutional Appears: No Acute Distress - Head Exam Head Exam: NORMAL INSPECTION - Eye Exam Eye Exam: EOMI - ENT Exam ENT Exam: Mucous Membranes Moist - Respiratory Exam Respiratory Exam: Clear to Ausculation Bilateral, NORMAL BREATHING PATTERN - Cardiovascular Exam Cardiovascular Exam: REGULAR RHYTHM - Neurological Exam Neurological Exam: Alert, Awake Assessment and Plan - Assessment and Plan (Free Text) Assessment: Assessment/Plan (1) Tachycardia (acute) Assessment & Plan: 12/14: Doing well. Telemetry appears to be NSR in the 80s to 90s. As mentioned previously the patient required electrically cardioversion. And after the cardioversion, the patient returned to normal sinus rhythm. Nursing staff reports no issues. Patient is no longer tachycardic on telemetric monitor. Will be getting PO amiodarone now. * elevated D-dimer-->Ct angio negative for PE; awaiting dopplers * 12/12/16 tachycardia-->Adenosine given --> Atrial flutter-->on IV digoxin and IV cardizem drip * Cardiology consulted (Dr. Brock) on board; case discussed (2) Intracranial hemorrhage Assessment & Plan: 12/14: Stable. He is very alert, answering questions in basic occitan and following commands. 10/18 CT Head: Left basal ganglia acute hemorrhage, possibly hypertensive with associated intraventricular hemorrhage and mass effect upon the left lateral aspect of the 3rd ventricle with the tip shift of the 3rd ventricle towards the right side. No generalized midline shift. Air-fluid level in sphenoid sinus common nonspecific. Please correlate for concern regarding acute sinusitis. Mild involutional changes. 10/19 CT Head: little interval change in the known 2.0 x 2.7 acute hematoma in left thalamus with intra ventricular extension of hemorrhage. Interval mild worsening of obstructive hydrocephalus. 10/24 CT Head: little interval change in the size of left thalamic hemorrhage 2.4x2.9 cm with intraventricular extension of hemorrhage and mild obstructive hydrocephalus. 2 mm midline shift from left to right with no evidence of herniation. Near complete resolution of hemorrhage within 4th ventricle. 11/03/16 CT Head; Interval decrease in size and density left basal ganglia hematoma; well-circumscribed peripheral rim of low attentuation edema about hematoma; combination of brain edema and brain necrosis; intraventricular hemorrhage has diminished. Ventricles hae also decreased in size temporal horns and atria remain prominent. Persistent compression of the 3rd and left lateral ventricle * Neurosurgery per initial consult-->patient's prognosis dismal at beginning of admission * Neurology (Dr. Simpson) on board-->per 10/26 note: patient has attained maximum response from neuro point of view from this admission; keep nutritional status and avoid infectious; treat with peg/trach; no antiplatelets for next 4-6 weeks (; maintain MAP ~100) * On baby aspirin 81mg PO daily; discussed with neurology with 11/22/16 (3) Hypertension Assessment & Plan: 12/14: Systolic BPs stable, 120s and 110 * monitor vital signs * controlled (4) Acute respiratory failure (resolved) Assessment & Plan: 12/14: Site of the former trach area appears to be healing well. * s/p tracheostomy 10/28/16 * Patient completed trach collar. * Weaning completed; off ventilator * Saturating well. * Monitor dressing change of trach site * Pulmonary (Dr. Bailey) consulted to assist with weaning protocol * Mucomyst PRN to help thin out secretions * Duonebs PRN shortness of breathe * monitor and may need suctioning PRN * Completed decannulation on 10/30/16; saturating well * Consulted speech-->patient not appropriate for speak-easy valve status post decannulation; encourage speaking * Discussed with ENT-->outpatient due to mild vocal cord dysfunction * Discussed with swallow-->patient has a strong cough, can be started on pleasure feedings and/or pureed diet to try to transition off peg (4) CVA (cerebral vascular accident) Assessment & Plan: * Hemorrhagic stroke with associated hypotension and basal ganglia involvement on admission * [id number]:5.7 * Cholestrol: 202, TG: LDL:130 HDL:52 * Aspirin 81mg PO daily * Blood pressure control monitoring * Start on Crestor 5mg POqHS * s/p peg placement; feedings via peg started on 11/17/16; monitor for residual * Patient currently on 60cc/hr feeds with 400cc Q 8 hours of water flushes (5) Sepsis (resolved) Assessment & Plan: Per 11/05; Fever 103F and associated leukocytosis: 21.8; infection: pneumonia ( which was treated with Meropenem during the course of hospitalization) Infectious disease on board (Dr. Chavez) 10/21 Sputum-Klebsiella (sensitive to Maxipime) 10/25 Serratia and Enterobacter (sensitive to Maxipime) 10/31 Sputum: normal 11/06: Enterobacter which is sensitive Meropenem (switch from Maxipime) 11/06 Urine culture: yeast 11/09 Urine culture: yeast 11/09 Blood culture: no growth for 5 days X2 11/21 Urine culture: yeast 11/26: Urine culture: Pseudomonas 12/08: Urine culture: VRE UTI (patient not septic at time of current UTI) (6) Urinary Tract Infection (current) 12/14: Continued on tigecycline. Patient has chronic UTIs * 12/08/16 VRE UTI * Multiple UTI infections * Yeast urine treated with Diflucan during hospitalization * Pseudomonas treated with Cipro during hospitalization * VRE UTI currently treated with Tigecycline and contact isolation * [place] condom catheter changed recently * Infectious disease (Dr. Chavez) on board * Tigecycline 50mg IV Q 12hours (active since 12/11/16) * Florastor 250mg PO bid * Monitor LFTS (7) Prophylactic care * s/p peg placement * Weaned off vent; saturating well s/p decanulation * Continue with aggressive PT/OT-->latest PT noted recommending for subacute/ LTAC * on peg feedings/fluid flushes * Reconsult PT/OT and swallow given improvements in motor function * Palliative care reconsult for goals of care * Family trying to secure insurance for the patient and coordinate with case management
[2016-12-14] MEDS: Saccharomyces Boulardi 250 mg Cap PO SCH ×2 (10:00→18:20)
--- NOTE | 2016-12-14 10:31 | CP.PCM.PN ---
Subjective - Date & Time of Evaluation Date of Evaluation: 12/14/16 Time of Evaluation: 10:18 - Subjective Subjective: Cardiology Progress Note Dr. Brock Patient seen and examined at the bedside. No acute distress. Nursing staff reports no issues. Patient continues to deny all cardiopulmonary complaints at this time. 12 point review of systems completes and negative for acute complaints. Objective - Vital Signs/Intake and Output Vital Signs (last 24 hours): Temp Pulse Resp BP Pulse Ox 98.2 F 86 14 129/88 100 12/14/16 08:00 12/14/16 09:00 12/14/16 09:00 12/14/16 09:00 12/14/16 09:00 Intake and Output: 12/14/16 12/14/16 06:59 18:59 Intake Total 1650 450 Output Total 2050 440 Balance -400 10 - Medications Medications: Current Medications Acetaminophen (Tylenol 325mg Tab) 650 mg PO Q6 PRN PRN Reason: Fever >100.4 F Last Admin: 11/29/16 13:19 Dose: 650 mg Amiodarone HCl (Cordarone) 200 mg GT DAILY [facility] Aspirin (Aspirin Chewable) 81 mg GT DAILY [facility] Last Admin: 12/13/16 12:40 Dose: 81 mg Famotidine (Pepcid) 20 mg PO DAILY [facility] Heparin Sodium (Porcine) (Heparin) 5,000 units SC Q12 [facility] Last Admin: 12/13/16 21:13 Dose: 5,000 units Tigecycline 50 mg/ Sodium (Chloride) 50 mls @ 50 mls/hr IVPB Q12H [facility] Last Admin: 12/14/16 08:17 Dose: 50 mls/hr Sodium Chloride (Sodium Chloride 0.9%) 1,000 mls @ 100 mls/hr IV .Q10H [facility] Last Admin: 12/14/16 06:45 Dose: 100 mls/hr Rosuvastatin Calcium (Crestor) 5 mg GT HS [facility] Last Admin: 12/13/16 21:13 Dose: 5 mg Saccharomyces Boulardii (Florastor) 250 mg PO BID [facility] Last Admin: 12/13/16 18:04 Dose: 250 mg - Labs Labs: 12/14/16 06:24 12/14/16 04:00 PT 12.9 SECONDS (9.7-12.2) H 11/15/16 13:58 INR 1.2 11/15/16 13:58 APTT 39 SECONDS (21-34) H 11/15/16 13:58 - Additional Findings Additional findings: - Constitutional Appears: Chronically Ill - Head Exam Head Exam: ATRAUMATIC, NORMAL INSPECTION, NORMOCEPHALIC - Eye Exam Eye Exam: EOMI, Normal appearance Pupil Exam: NORMAL ACCOMODATION - ENT Exam ENT Exam: Mucous Membranes Moist, Normal Exam - Neck Exam Neck exam: Positive for: Full Rom, Normal Inspection. Negative for: Tenderness - Respiratory Exam Respiratory Exam: Clear to Auscultation Bilateral, NORMAL BREATHING PATTERN. absent: Decreased Breath Sounds, Rhonchi, Wheezes - Cardiovascular Exam Cardiovascular Exam: REGULAR RHYTHM, +S1, +S2, RRR. absent: Tachycardia, Diastolic murmur, RRR, Systolic Murmur - GI/Abdominal Exam GI & Abdominal Exam: Normal Bowel Sounds, Soft. absent: Distended, Firm, Guarding, Tenderness - Extremities Exam Extremities exam: Positive for: normal capillary refill, normal inspection, pedal pulses present - Neurological Exam Neurological exam: Alert, CN II-XII Intact, Oriented x3 - Skin Skin Exam: Dry, Intact, Normal Color, Warm Assessment and Plan (1) Supraventricular tachycardia Assessment & Plan: AVNRT vs Atrial flutter resolution s/p 50J synchronized/biphasic electric cardioversion overnight ( @ 23:39pm) Continue Amiodarone 200mg GT Daily continue telemetric monitoring will continue to monitor continue aspirin 81mg GT daily continue crestor 5mg GT daily 12/14/16 EKG- Normal sinus rhythm (85bmp), normal intervals, physiologic axis, minimal voltage criteria for LVH 12/12/16 CT Chest- Negative for PE 12/12/16 16:45 EKG- Supraventricular tachycardia (151bpm), normal axis, normal intervals, LVH 10/21/16 Echo- 72% EF with normal systolic and diastolic function 10/21/16- EKG sinus tachy (120bpm), jackelin axis, LVH, St and T wave abnormality in lateral leads (consider ischemia), normal intervals 10/18/16- EKG- normal sinus rhythm, normal axis, normal intervals, LVH Case Discussed with Dr. Vinod Salas PGY1 Status: Resolved
--- NOTE | 2016-12-14 10:40 | CP.CCUPN ---
<Alexandria Gilman - Last Filed: 12/14/16 10:35> CCU Subjective - Physician Review Subjective (Free Text): Patient was seen and examined at bedside. NSR after being cardioverted yesterday. Started on Amiodarone 200mg GT daily. Patient to have PT and OT. Transferred to MED/SURG. CCU Objective - Vital Signs / Intake & Output Vital Signs (Last 4 hours): Vital Signs Temp Pulse Resp BP Pulse Ox 12/14/16 09:00 86 14 129/88 100 12/14/16 08:00 98.2 F 83 13 121/79 100 12/14/16 07:00 84 11 L 121/86 98 Intake and Output (Last 8hrs): Intake & Output 12/13/16 12/14/16 12/14/16 22:59 06:59 14:59 Intake Total 1060 1120 450 Output Total 600 1450 440 Balance 460 -330 10 Weight 141 lb Intake: Intake, IV Amount 800 800 300 Right Forearm 800 800 300 Tube Feeding 260 320 150 Output: Urine 600 1450 440 Condom 600 1450 440 - Physical Exam Head: Positive for: Atraumatic, Normocephalic Pupils: Positive for: PERRL (minimal reactivity, intact corneal reflex), Other ( some spontaneous eye movements) Extroacular Muscles: Positive for: EOMI Conjunctiva: Positive for: Normal Ears: Positive for: Normal Mouth: Positive for: Moist Mucous Membranes Pharnyx: Positive for: Other (cough and gag reflex intact) Nose (External): Positive for: Atraumatic Neck: Positive for: Other (trach in place) Respiratory/Chest: Positive for: Clear to Auscultation, Good Air Exchange. Negative for: Respiratory Distress, Accessory Muscle Use Cardiovascular: Positive for: Regular Rate and Rhythm, Normal S1, S2. Negative for: Murmurs Abdomen: Positive for: Normal Bowel Sounds. Negative for: Tenderness, Distention, Peritoneal Signs Upper Extremity: Positive for: Normal Inspection. Negative for: Cyanosis, Edema Lower Extremity: Positive for: Normal Inspection. Negative for: Edema Neurological: Positive for: Other (minimal 0-1/5 strength R extremities, (-) Babinski B/L, no response to pain right extremities; some response in left extremitied. left sided respones are nonpurposeful and increased in comparison to the right side) Skin: Positive for: Warm, Dry, Normal Color. Negative for: Rashes Psychiatric: Positive for: Alert - Medications Active Medications: Active Medications Generic Name Dose Route Start Last Admin Trade Name Freq PRN Reason Stop Dose Admin Acetaminophen 650 mg 10/21/16 20:56 11/29/16 13:19 Tylenol 325mg Tab PO 650 mg Q6 PRN Administration Fever >100.4 F Amiodarone HCl 200 mg 12/14/16 10:00 12/14/16 10:32 Cordarone GT 200 mg DAILY O[facility] Administration Aspirin 81 mg 12/07/16 10:00 12/14/16 10:32 Aspirin Chewable GT 81 mg DAILY O[facility] Administration Famotidine 20 mg 12/14/16 10:00 12/14/16 10:32 Pepcid PO 20 mg DAILY O[facility] Administration Heparin Sodium (Porcine) 5,000 units 12/13/16 22:00 12/14/16 10:33 Heparin SC 5,000 units Q12 O[facility] Administration Tigecycline 50 mg/ Sodium 50 mls @ 50 mls/hr 12/11/16 08:00 12/14/16 08:17 Chloride IVPB 50 mls/hr Q12H O[facility] Administration Sodium Chloride 1,000 mls @ 100 mls/hr 12/12/16 03:54 12/14/16 06:45 Sodium Chloride 0.9% IV 100 mls/hr .Q10H OMAR Administration Rosuvastatin Calcium 5 mg 11/22/16 22:00 12/13/16 21:13 Crestor GT 5 mg HS OMAR Administration Saccharomyces Boulardii 250 mg 11/09/16 10:00 12/13/16 18:04 Florastor PO 250 mg BID OMAR Administration - Patient Studies Lab Studies: Lab Studies 12/14/16 12/14/16 Range/Units 06:24 04:00 WBC 7.4 (4.8-10.8) K/uL RBC 3.88 L (4.40-5.90) Mil/uL Hgb 10.5 L (12.0-18.0) g/dL Hct 32.0 L (35.0-51.0) % MCV 82.5 (80.0-94.0) fL MCH 27.0 (27.0-31.0) pg MCHC 32.8 L (33.0-37.0) g/dL RDW 15.3 H (11.5-14.5) % Plt Count 296 (130-400) K/uL MPV 10.2 (7.2-11.7) fL Neut % (Auto) 62.4 (50.0-75.0) % Lymph % (Auto) 23.3 (20.0-40.0) % Morrison % (Auto) 7.8 (0.0-10.0) % Eos % (Auto) 5.7 H (0.0-4.0) % Baso % (Auto) 0.8 (0.0-2.0) % Neut # 4.6 (1.8-7.0) K/uL Lymph # 1.7 (1.0-4.3) K/uL Morrison # 0.6 (0.0-0.8) K/uL Eos # 0.4 (0.0-0.7) K/uL Baso # 0.1 (0.0-0.2) K/uL Sodium 134 (132-148) mmol/L Potassium 4.1 (3.6-5.2) mmol/L Chloride 104 (98-107) mmol/L Carbon Dioxide 26 (22-30) mmol/L Anion Gap 9 L (10-20) BUN 24 H (9-20) mg/dL Creatinine 0.7 L (0.8-1.5) MG/DL Est GFR ( Amer) > 60 Est GFR (Non-Af Amer) > 60 Random Glucose 80 (75-110) mg/dL Calcium 7.9 L (8.6-10.4) mg/dl Phosphorus 4.4 (2.5-4.5) mg/dL Magnesium 2.0 (1.6-2.3) mg/dL Total Bilirubin 0.7 (0.2-1.3) mg/dL AST 23 (17-59) U/L ALT 65 (21-72) U/L Alkaline Phosphatase 97 (38-126) U/L Total Protein 5.8 L (6.3-8.3) g/dL Albumin 2.5 L (3.5-5.0) g/dL Globulin 3.2 (2.2-3.9) gm/dL Albumin/Globulin Ratio 0.8 L (1.0-2.1) Laboratory Results - last 24 hr 12/14/16 12/14/16 04:00 06:24 WBC 7.4 RBC 3.88 L Hgb 10.5 L Hct 32.0 L MCV 82.5 MCH 27.0 MCHC 32.8 L RDW 15.3 H Plt Count 296 MPV 10.2 Neut % (Auto) 62.4 Lymph % (Auto) 23.3 Morrison % (Auto) 7.8 Eos % (Auto) 5.7 H Baso % (Auto) 0.8 Neut # 4.6 Lymph # 1.7 Morrison # 0.6 Eos # 0.4 Baso # 0.1 Sodium 134 Potassium 4.1 Chloride 104 Carbon Dioxide 26 Anion Gap 9 L BUN 24 H Creatinine 0.7 L Est GFR ( Amer) > 60 Est GFR (Non-Af Amer) > 60 Random Glucose 80 Calcium 7.9 L Phosphorus 4.4 Magnesium 2.0 Total Bilirubin 0.7 AST 23 ALT 65 Alkaline Phosphatase 97 Total Protein 5.8 L Albumin 2.5 L Globulin 3.2 Albumin/Globulin Ratio 0.8 L Fingerstick Blood Sugar Results: 139 Critical Care Progress Note - Nutrition Nutrition: Nutrition Category Date Time Status NPO Diet [DIET] Diets 11/16/16 Breakfast Active Assessment/Plan - Assessment and Plan (Free Text) Plan: Tachycardia (acute) * Elevated D-dimer--> Ct angio negative for PE; awaiting dopplers - right peroneal thrombosis (started on Heparin 5000 Q12H). * 12/12/16 tachycardia-->Adenosine given --> Atrial flutter-->on IV digoxin and IV cardizem drip * Cardiology consulted (Dr. Brock) on board; case discussed. * SVT was non-responsive to cardizem, amiodarone, and digoxin. The patient was electrically cardioverted at 23:39 on 12/12/16 with 50J (synchronized and biphasic ). Following the cardioversion, the patient returned to normal sinus rhythm. Nursing staff reports no issues. Patient is no longer tachycardic on educational speech language clinician. Intracranial hemorrhage 11/03/16 CT Head; Interval decrease in size and density left basal ganglia hematoma; well-circumscribed peripheral rim of low attentuation edema about hematoma; combination of brain edema and brain necrosis; intraventricular hemorrhage has diminished. Ventricles hae also decreased in size temporal horns and atria remain prominent. Persistent compression of the 3rd and left lateral ventricle * Neurosurgery per initial consult-->patient's prognosis dismal at beginning of admission * Neurology (Dr. Simpson) on board-->per 10/26 note: patient has attained maximum response from neuro point of view from this admission; keep nutritional status and avoid infectious; treat with peg/trach; no antiplatelets for next 4-6 weeks (maintain MAP ~100) * On baby aspirin 81mg PO daily; discussed with neurology with 11/22/16 Urinary Tract Infection (current) * 12/08/16 VRE UTI on Tygacil * Multiple UTI infections * Yeast urine treated with Diflucan during hospitalization * Pseudomonas treated with Cipro during hospitalization * VRE UTI currently treated with Tigecycline and contact isolation * [place] condom catheter changed recently * Infectious disease (Dr. Chavez) on board * Tigecycline 50mg IV Q 12hours (active since 12/11/16) * Florastor 250mg PO bid * Monitor LFTS Acute respiratory failure (resolved) * s/p tracheostomy 10/28/16 * Patient completed trach collar. Prophylactic care * s/p peg placement * Weaned off vent; saturating well s/p decanulation * Continue with aggressive PT/OT--> latest PT noted recommending for subacute/ LTAC * on peg feedings/fluid flushes * Reconsult PT/OT and swallow given improvements in motor function * Palliative care reconsult for goals of care * Family trying to secure insurance for the patient and coordinate with case management Disposition * Transferred to tele-ICU given atrial flutter requiring IV Digoxin and IV Cardizem and monitoring of heart rate, may need cardioversion; discussed with cardiology * Patient will need IV abx for VRE UTI at this time. Not stable for discharge given resistant antibiotic for current UTI; will need IV abx to address pneumonia when heart rate is stablized * Pending insurance for senior living care facility for rehabilitation and peg feedings, will need constant monitoring. Patient currently wears mittens to prevent him from pulling on his tubes and is unsafe for home. Will need to clarify with family regarding the type of care patient will need with both patient's son and daughters. Patient transferred to Telemetry DW Kalina Edwards DO, PGY-1 <Mathew Bailey S - Last Filed: 12/14/16 18:34> CCU Objective - Vital Signs / Intake & Output Vital Signs (Last 4 hours): Vital Signs Temp Pulse Resp BP Pulse Ox 12/14/16 17:00 82 14 136/88 100 12/14/16 16:00 98.1 F 71 10 L 143/86 12/14/16 15:04 83 17 144/75 Intake and Output (Last 8hrs): Intake & Output 12/14/16 12/14/16 12/14/16 06:59 14:59 22:59 Intake Total 1120 1070 280 Output Total 1450 640 95 Balance -330 430 185 Weight 141 lb Intake: Intake, IV Amount 800 700 100 Right Forearm 800 700 100 Tube Feeding 320 370 180 Output: Urine 1450 640 95 Condom 1450 640 95 Other: # Bowel Movements 2 - Medications Active Medications: Active Medications Generic Name Dose Route Start Last Admin Trade Name Freq PRN Reason Stop Dose Admin Acetaminophen 650 mg 10/21/16 20:56 11/29/16 13:19 Tylenol 325mg Tab PO 650 mg Q6 PRN Administration Fever >100.4 F Amiodarone HCl 200 mg 12/14/16 10:00 12/14/16 10:32 Cordarone GT 200 mg DAILY OMAR Administration Aspirin 81 mg 12/07/16 10:00 12/14/16 10:32 Aspirin Chewable GT 81 mg DAILY OMAR Administration Famotidine 20 mg 12/14/16 10:00 12/14/16 10:32 Pepcid PO 20 mg DAILY OMAR Administration Heparin Sodium (Porcine) 5,000 units 12/13/16 22:00 12/14/16 10:33 Heparin SC 5,000 units Q12 OMAR Administration Tigecycline 50 mg/ Sodium 50 mls @ 50 mls/hr 12/11/16 08:00 12/14/16 08:17 Chloride IVPB 50 mls/hr Q12H OMAR Administration Rosuvastatin Calcium 5 mg 11/22/16 22:00 12/13/16 21:13 Crestor GT 5 mg HS OMAR Administration Saccharomyces Boulardii 250 mg 11/09/16 10:00 12/14/16 18:20 Florastor PO 250 mg BID OMAR Administration - Patient Studies Lab Studies: Lab Studies 12/14/16 12/14/16 Range/Units 06:24 04:00 WBC 7.4 (4.8-10.8) K/uL RBC 3.88 L (4.40-5.90) Mil/uL Hgb 10.5 L (12.0-18.0) g/dL Hct 32.0 L (35.0-51.0) % MCV 82.5 (80.0-94.0) fL MCH 27.0 (27.0-31.0) pg MCHC 32.8 L (33.0-37.0) g/dL RDW 15.3 H (11.5-14.5) % Plt Count 296 (130-400) K/uL MPV 10.2 (7.2-11.7) fL Neut % (Auto) 62.4 (50.0-75.0) % Lymph % (Auto) 23.3 (20.0-40.0) % Morrison % (Auto) 7.8 (0.0-10.0) % Eos % (Auto) 5.7 H (0.0-4.0) % Baso % (Auto) 0.8 (0.0-2.0) % Neut # 4.6 (1.8-7.0) K/uL Lymph # 1.7 (1.0-4.3) K/uL Morrison # 0.6 (0.0-0.8) K/uL Eos # 0.4 (0.0-0.7) K/uL Baso # 0.1 (0.0-0.2) K/uL Sodium 134 (132-148) mmol/L Potassium 4.1 (3.6-5.2) mmol/L Chloride 104 (98-107) mmol/L Carbon Dioxide 26 (22-30) mmol/L Anion Gap 9 L (10-20) BUN 24 H (9-20) mg/dL Creatinine 0.7 L (0.8-1.5) MG/DL Est GFR ( Amer) > 60 Est GFR (Non-Af Amer) > 60 Random Glucose 80 (75-110) mg/dL Calcium 7.9 L (8.6-10.4) mg/dl Phosphorus 4.4 (2.5-4.5) mg/dL Magnesium 2.0 (1.6-2.3) mg/dL Total Bilirubin 0.7 (0.2-1.3) mg/dL AST 23 (17-59) U/L ALT 65 (21-72) U/L Alkaline Phosphatase 97 (38-126) U/L Total Protein 5.8 L (6.3-8.3) g/dL Albumin 2.5 L (3.5-5.0) g/dL Globulin 3.2 (2.2-3.9) gm/dL Albumin/Globulin Ratio 0.8 L (1.0-2.1) Laboratory Results - last 24 hr 12/14/16 12/14/16 04:00 06:24 WBC 7.4 RBC 3.88 L Hgb 10.5 L Hct 32.0 L MCV 82.5 MCH 27.0 MCHC 32.8 L RDW 15.3 H Plt Count 296 MPV 10.2 Neut % (Auto) 62.4 Lymph % (Auto) 23.3 Morrison % (Auto) 7.8 Eos % (Auto) 5.7 H Baso % (Auto) 0.8 Neut # 4.6 Lymph # 1.7 Morrison # 0.6 Eos # 0.4 Baso # 0.1 Sodium 134 Potassium 4.1 Chloride 104 Carbon Dioxide 26 Anion Gap 9 L BUN 24 H Creatinine 0.7 L Est GFR ( Amer) > 60 Est GFR (Non-Af Amer) > 60 Random Glucose 80 Calcium 7.9 L Phosphorus 4.4 Magnesium 2.0 Total Bilirubin 0.7 AST 23 ALT 65 Alkaline Phosphatase 97 Total Protein 5.8 L Albumin 2.5 L Globulin 3.2 Albumin/Globulin Ratio 0.8 L Critical Care Progress Note - Nutrition Nutrition: Nutrition Category Date Time Status NPO Diet [DIET] Diets 11/16/16 Breakfast Active Attending/Attestation - Attestation I have personally seen and examined this patient.: Yes I have fully participated in the care of the patient.: Yes I have reviewed all pertinent clinical information: Yes Notes (Text): 12/14/16 18:32 Patient seen and examined in the intensive care unit. Case discussed with house staff in the morning rounds. Continue amiodarone and transfer patient to floor
--- NOTE | 2016-12-14 12:03 | CARD ---
APPROVED REPORT EKG Measurement Heart [id number] <Conclusion> Atrial flutter with 2:[address] abnormality Abnormal ECG
[2016-12-14] MEDS: Mupirocin 2% Ointment (NASAL) NAS SCH (21:45)
[2016-12-15 06:41] LABS: HEMATOCRIT 32.1 % (35.0-51.0); MEAN CELL VOLUME 81.7 fL (80.0-94.0); MEAN CORPUSCULAR HEMOGLOBIN 26.3 pg (27.0-31.0); MEAN CORPUSCULAR HGB CONC 32.2 g/dL (33.0-37.0); MEAN PLATELET VOLUME 10.7 fL (7.2-11.7); RED CELL DISTRIBUTION WIDTH 15.2 % (11.5-14.5); WHITE BLOOD COUNT 8.3 K/uL (4.8-10.8)
[2016-12-15 06:46] LABS: CHLORIDE 104 mmol/L (98-107); SODIUM 138 mmol/L (132-148)
[2016-12-15 06:47] LABS: POTASSIUM 4.2 mmol/L (3.6-5.2)
[2016-12-15 06:48] LABS: GFR AFRICAN-AMERICAN > 60
[2016-12-15 06:49] LABS: ALB/GLOB RATIO 0.8 (1.0-2.1); ALKALINE PHOSPHATASE 111 U/L (38-126); ALT/SGPT 44 U/L (21-72); AST/SGOT 23 U/L (17-59); BILIRUBIN,TOTAL 0.6 mg/dL (0.2-1.3); BLOOD UREA NITROGEN 23 mg/dL (9-20); CARBON DIOXIDE 26 mmol/L (22-30); GLUCOSE,RANDOM 103 mg/dL (75-110); TOTAL PROTEIN 5.7 g/dL (6.3-8.3)
[2016-12-15 06:50] LABS: MAGNESIUM 1.9 mg/dL (1.6-2.3); PHOSPHOROUS 4.8 mg/dL (2.5-4.5)
--- NOTE | 2016-12-15 07:24 | CP.PCM.PN ---
<AjitKarena slade - Last Filed: 12/15/16 18:49> Subjective - Date & Time of Evaluation Date of Evaluation: 12/15/16 Time of Evaluation: 07:23 - Subjective Subjective: Patient seen and examined at bedside. Patient transferred from ICU to telemetry. He continues to display mobility of right upper and lower extremity and is able to sustain elevation of right lower extremity for >5 seconds. Patient had barium swallow today and tolerated well. Plan to start on soft regular diet, small bites. Will continue to evaluate for possible discontinuation of PEG. Objective - Vital Signs/Intake and Output Vital Signs (last 24 hours): Temp Pulse Resp BP Pulse Ox 98.5 F 71 12 128/89 100 12/15/16 04:00 12/15/16 04:00 12/15/16 04:00 12/15/16 04:07 12/15/16 04:00 Intake and Output: 12/15/16 12/15/16 06:59 18:59 Intake Total 930 Output Total 1500 Balance -570 - Medications Medications: Current Medications Acetaminophen (Tylenol 325mg Tab) 650 mg PO Q6 PRN PRN Reason: Fever >100.4 F Last Admin: 11/29/16 13:19 Dose: 650 mg Amiodarone HCl (Cordarone) 200 mg GT DAILY [facility] Last Admin: 12/14/16 10:32 Dose: 200 mg Aspirin (Aspirin Chewable) 81 mg GT DAILY [facility] Last Admin: 12/14/16 10:32 Dose: 81 mg Famotidine (Pepcid) 20 mg PO DAILY [facility] Last Admin: 12/14/16 10:32 Dose: 20 mg Heparin Sodium (Porcine) (Heparin) 5,000 units SC Q12 [facility] Last Admin: 12/14/16 21:05 Dose: 5,000 units Tigecycline 50 mg/ Sodium (Chloride) 50 mls @ 50 mls/hr IVPB Q12H [facility] Last Admin: 12/14/16 21:00 Dose: 50 mls/hr Mupirocin (Bactroban 2% Nasal) 0.5 gm FAN BID [facility] Last Admin: 12/14/16 21:45 Dose: 0.5 gm Rosuvastatin Calcium (Crestor) 5 mg GT HS [facility] Last Admin: 12/14/16 21:05 Dose: 5 mg Saccharomyces Boulardii (Florastor) 250 mg PO BID [facility] Last Admin: 05/03/17 18:20 Dose: 250 mg - Labs Labs: 12/15/16 06:24 12/15/16 06:24 PT 12.9 SECONDS (9.7-12.2) H 11/15/16 13:58 INR 1.2 11/15/16 13:58 APTT 39 SECONDS (21-34) H 11/15/16 13:58 - Constitutional Appears: Non-toxic, No Acute Distress - Head Exam Head Exam: ATRAUMATIC, NORMAL INSPECTION, NORMOCEPHALIC - Eye Exam Eye Exam: EOMI, Normal appearance, PERRL - ENT Exam ENT Exam: Mucous Membranes Moist - Neck Exam Neck Exam: Full ROM, Normal Inspection - Respiratory Exam Respiratory Exam: Clear to Ausculation Bilateral, NORMAL BREATHING PATTERN. absent: Rales, Rhonchi, Wheezes - Cardiovascular Exam Cardiovascular Exam: +S1, +S2. absent: Tachycardia - GI/Abdominal Exam GI & Abdominal Exam: Soft, Normal Bowel Sounds. absent: Tenderness Additional comments: PEG in place - Extremities Exam Extremities Exam: Normal Inspection. absent: Pedal Edema, Tenderness - Neurological Exam Neurological Exam: Alert, Awake, Oriented x3 Neuro motor strength exam: Left Upper Extremity: 5, Right Upper Extremity: 4, Left Lower Extremity: 5, Right Lower Extremity: 4 - Psychiatric Exam Psychiatric exam: Normal Affect, Normal Mood - Skin Skin Exam: Intact, Normal Color Assessment and Plan - Assessment and Plan (Free Text) Assessment: Tachycardia (acute) * Elevated D-dimer--> Ct angio negative for PE; LE Dopplers positive for right peroneal thrombosis (started on Heparin 5000 Q12H). * 12/15/16 Amiodarone 200 mg GT daily * 12/12/16 tachycardia-->Adenosine given --> Atrial flutter-->on IV digoxin and IV cardizem drip. * Cardiology consulted (Dr. Brock) on board; case discussed. * SVT was non-responsive to cardizem, amiodarone, and digoxin. The patient was electrically cardioverted at 23:39 on 12/12/16 with 50J (synchronized and biphasic ). Following the cardioversion, the patient returned to normal sinus rhythm. Nursing staff reports no issues. Patient is no longer tachycardic on playground monitor. DVT of RLE LE Dopplers positive for right peroneal thrombosis (started on Heparin 5000 Q12H ) Repeat CT Head without contrast Pending if bleed increased/new bleed present, consider starting therapeutic heparin and convert to Coumadin Intracranial hemorrhage 12/15/16 f/u CT head 11/03/16 CT Head; Interval decrease in size and density left basal ganglia hematoma; well-circumscribed peripheral rim of low attentuation edema about hematoma; combination of brain edema and brain necrosis; intraventricular hemorrhage has diminished. Ventricles hae also decreased in size temporal horns and atria remain prominent. Persistent compression of the 3rd and left lateral ventricle * Neurosurgery per initial consult-->patient's prognosis dismal at beginning of admission * Neurology (Dr. Simpson) on board-->per 10/26 note: patient has attained maximum response from neuro point of view from this admission; keep nutritional status and avoid infectious; treat with peg/trach; no antiplatelets for next 4-6 weeks (maintain MAP ~100) * On baby aspirin 81mg PO daily; discussed with neurology with 11/22/16 Urinary Tract Infection (current) * 12/08/16 VRE UTI on Tygacil * Multiple UTI infections * Yeast urine treated with Diflucan during hospitalization * Pseudomonas treated with Cipro during hospitalization * VRE UTI currently treated with Tigecycline and contact isolation * [place] condom catheter changed recently * Infectious disease (Dr. Chavez) on board * Tigecycline 50mg IV Q 12hours (active since 12/11/16) * Florastor 250mg PO bid * Monitor LFTS Acute respiratory failure (resolved) * Patient decannulated * s/p tracheostomy 10/28/16 * Patient completed trach collar. Prophylactic care * Patient passed barium swallow. Started on soft diet, small bites. Nurse instructed to feed slowly. Will evaluate for discontinuation of PEG. * s/p peg placement * Weaned off vent; saturating well s/p decanulation * Continue with aggressive PT/OT--> latest PT noted recommending for subacute/ LTAC * on peg feedings/fluid flushes * Reconsult PT/OT and swallow given improvements in motor function * Palliative care reconsult for goals of care * Family trying to secure insurance for the patient and coordinate with case management Disposition * Transferred to tele-ICU given atrial flutter requiring IV Digoxin and IV Cardizem and monitoring of heart rate, may need cardioversion; discussed with cardiology * Patient will need IV abx for VRE UTI at this time. Not stable for discharge given resistant antibiotic for current UTI; will need IV abx to address pneumonia when heart rate is stablized * Pending insurance for assisted care facility for rehabilitation and peg feedings, will need constant monitoring. Patient currently wears mittens to prevent him from pulling on his tubes and is unsafe for home. Will need to clarify with family regarding the type of care patient will need with both patient's son and daughters. <Johny Saldana H - Last Filed: 12/16/16 09:13> Objective - Vital Signs/Intake and Output Vital Signs (last 24 hours): Temp Pulse Resp BP Pulse Ox 97.7 F 84 20 132/80 100 12/16/16 07:00 12/16/16 07:00 12/16/16 07:00 12/16/16 07:00 12/16/16 07:00 Intake and Output: 12/16/16 12/16/16 06:59 18:59 Intake Total 400 Output Total 1000 Balance -600 - Medications Medications: Current Medications Acetaminophen (Tylenol 325mg Tab) 650 mg PO Q6 PRN PRN Reason: Fever >100.4 F Last Admin: 11/29/16 13:19 Dose: 650 mg Amiodarone HCl (Cordarone) 200 mg GT DAILY [facility] Last Admin: 12/15/16 09:17 Dose: 200 mg Aspirin (Aspirin Chewable) 81 mg GT DAILY [facility] Last Admin: 12/15/16 09:17 Dose: 81 mg Famotidine (Pepcid) 20 mg PO DAILY [facility] Last Admin: 12/15/16 09:17 Dose: 20 mg Heparin Sodium (Porcine) (Heparin) 5,000 units SC Q12 [facility] Last Admin: 12/15/16 21:05 Dose: 5,000 units Tigecycline 50 mg/ Sodium (Chloride) 50 mls @ 50 mls/hr IVPB Q12H [facility] Last Admin: 12/16/16 07:55 Dose: 50 mls/hr Mupirocin (Bactroban 2% Nasal) 0.5 gm FAN BID [facility] Last Admin: 12/15/16 17:25 Dose: 0.5 gm Rosuvastatin Calcium (Crestor) 5 mg GT HS [facility] Last Admin: 12/15/16 21:05 Dose: 5 mg Saccharomyces Boulardii (Florastor) 250 mg PO BID [facility] Last Admin: 12/15/16 17:25 Dose: 250 mg - Labs Labs: 12/15/16 06:24 12/15/16 06:24 PT 12.9 SECONDS (9.7-12.2) H 11/15/16 13:58 INR 1.2 11/15/16 13:58 APTT 39 SECONDS (21-34) H 11/15/16 13:58 Attending/Attestation - Attestation I have personally seen and examined this patient.: Yes I have fully participated in the care of the patient.: Yes I have reviewed all pertinent clinical information, including history, physical exam and plan: Yes Notes (Text): Medical Attending: Patient was seen and examined by me. Agree with the above note by the resident The patient looked and was able to say in Greek that he felt ok. He denied chest pain, denied shortness of breath. Currently on amiodarone PO. He was able to raise leg > 5 seconds bilaterally. His condition has improved a lot Johny Saldana
[2016-12-15] MEDS: Saccharomyces Boulardi 250 mg Cap PO SCH ×2 (09:17→17:25)
[2016-12-15] MEDS: Mupirocin 2% Ointment (NASAL) NAS SCH ×2 (09:17→17:25)
--- NOTE | 2016-12-15 09:22 | CP.PCM.PN ---
Subjective - Date & Time of Evaluation Date of Evaluation: 12/15/16 Time of Evaluation: 09:20 - Subjective Subjective: Cardiology Progress Note Dr. Brock Patient seen and examined at the bedside. No acute distress. Nursing staff reports no issues. Patient continues to deny all cardiopulmonary complaints. 12 point review of systems completes and negative for acute complaints. Objective - Vital Signs/Intake and Output Vital Signs (last 24 hours): Temp Pulse Resp BP Pulse Ox 98.1 F 77 11 L 117/74 100 12/15/16 08:00 12/15/16 08:07 12/15/16 08:07 12/15/16 08:07 12/15/16 08:07 Intake and Output: 12/15/16 12/15/16 06:59 18:59 Intake Total 930 Output Total 1500 Balance -570 - Medications Medications: Current Medications Acetaminophen (Tylenol 325mg Tab) 650 mg PO Q6 PRN PRN Reason: Fever >100.4 F Last Admin: 11/29/16 13:19 Dose: 650 mg Amiodarone HCl (Cordarone) 200 mg GT DAILY [facility] Last Admin: 12/15/16 09:17 Dose: 200 mg Aspirin (Aspirin Chewable) 81 mg GT DAILY [facility] Last Admin: 12/15/16 09:17 Dose: 81 mg Famotidine (Pepcid) 20 mg PO DAILY [facility] Last Admin: 12/15/16 09:17 Dose: 20 mg Heparin Sodium (Porcine) (Heparin) 5,000 units SC Q12 [facility] Last Admin: 12/15/16 09:17 Dose: 5,000 units Tigecycline 50 mg/ Sodium (Chloride) 50 mls @ 50 mls/hr IVPB Q12H [facility] Last Admin: 12/15/16 07:23 Dose: 50 mls/hr Mupirocin (Bactroban 2% Nasal) 0.5 gm FAN BID [facility] Last Admin: 12/15/16 09:17 Dose: 0.5 gm Rosuvastatin Calcium (Crestor) 5 mg GT HS [facility] Last Admin: 12/14/16 21:05 Dose: 5 mg Saccharomyces Boulardii (Florastor) 250 mg PO BID [facility] Last Admin: 12/15/16 09:17 Dose: 250 mg - Labs Labs: 12/15/16 06:24 12/15/16 06:24 PT 12.9 SECONDS (9.7-12.2) H 11/15/16 13:58 INR 1.2 11/15/16 13:58 APTT 39 SECONDS (21-34) H 11/15/16 13:58 - Additional Findings Additional findings: - Constitutional Appears: Chronically Ill - Head Exam Head Exam: ATRAUMATIC, NORMAL INSPECTION, NORMOCEPHALIC - Eye Exam Eye Exam: EOMI, Normal appearance Pupil Exam: NORMAL ACCOMODATION - ENT Exam ENT Exam: Mucous Membranes Moist, Normal Exam - Neck Exam Neck exam: Positive for: Full Rom, Normal Inspection. Negative for: Tenderness - Respiratory Exam Respiratory Exam: Clear to Auscultation Bilateral, NORMAL BREATHING PATTERN. absent: Decreased Breath Sounds, Rhonchi, Wheezes - Cardiovascular Exam Cardiovascular Exam: REGULAR RHYTHM, +S1, +S2, RRR. absent: Tachycardia, Diastolic murmur, RRR, Systolic Murmur - GI/Abdominal Exam GI & Abdominal Exam: Normal Bowel Sounds, Soft. absent: Distended, Firm, Guarding, Tenderness - Extremities Exam Extremities exam: Positive for: normal capillary refill, normal inspection, pedal pulses present - Neurological Exam Neurological exam: Alert, CN II-XII Intact, Oriented x3 - Skin Skin Exam: Dry, Intact, Normal Color, Warm Assessment and Plan (1) Supraventricular tachycardia Assessment & Plan: AVNRT vs Atrial flutter resolution s/p 50J synchronized/biphasic electric cardioversion overnight ( @ 23:39pm) Continue Amiodarone 200mg GT Daily continue telemetric monitoring will continue to monitor continue aspirin 81mg GT daily continue crestor 5mg GT daily Cardiac Stable Hemodynamically Stable Troponin Negative x 1 (12/12/16: 0.0160) 12/14/16 EKG- Normal sinus rhythm (85bmp), normal intervals, physiologic axis, minimal voltage criteria for LVH 12/12/16 CT Chest- Negative for PE 12/12/16 16:45 EKG- Supraventricular tachycardia (151bpm), normal axis, normal intervals, LVH 10/21/16 Echo- 72% EF with normal systolic and diastolic function 10/21/16- EKG sinus tachy (120bpm), jackelin axis, LVH, St and T wave abnormality in lateral leads (consider ischemia), normal intervals 10/18/16- EKG- normal sinus rhythm, normal axis, normal intervals, LVH Case Discussed with Dr. Vinod Salas PGY1 Status: Resolved
[2016-12-15] MEDS ORDERED: Barium Sulfate for Susp 98% w/w 340g Bottle ONE (11:01)
--- NOTE | 2016-12-15 12:31 | RAD ---
PROCEDURE: Modified barium swallow study. HISTORY: evaluate COMPARISON: None available. TECHNIQUE: Under fluoroscopic guidance, barium meals of various consistency were administered to the patient by the speech pathologist. FINDINGS: No penetration or aspiration was observed during this study. Pooling in the valleculae and piriform sinuses was noted upon swallowing various food substances. IMPRESSION: No penetration or aspiration observed. Please refer to the detailed report and recommendations of the speech pathologist.
--- NOTE | 2016-12-16 06:34 | CP.PCM.PN ---
<ArianneKarena - Last Filed: 12/16/16 07:02> Subjective - Date & Time of Evaluation Date of Evaluation: 12/16/16 Time of Evaluation: 06:32 - Subjective Subjective: Patient seen and examined at bedside. No acute events overnight per nursing. Patient started on soft diet yesterday. Will evaluate how patient is tolerating diet. Patient denies abdominal discomfort, nausea, and vomiting. He also denies chest pain, palpitations, shortness of breath, and pain to lower extremities. Plan to obtain repeat CT of head without contrast to evaluate for increased/new intracranial hemorrhage prior to starting therapeutic anticoagulation for right lower extremity peroneal DVT. Objective - Vital Signs/Intake and Output Vital Signs (last 24 hours): Temp Pulse Resp BP Pulse Ox 98.8 F 75 20 134/87 97 12/15/16 23:25 12/16/16 01:11 12/15/16 23:25 12/15/16 23:25 12/15/16 23:25 Intake and Output: 12/15/16 12/16/16 18:59 06:59 Intake Total 560 400 Output Total 800 300 Balance -240 100 - Medications Medications: Current Medications Acetaminophen (Tylenol 325mg Tab) 650 mg PO Q6 PRN PRN Reason: Fever >100.4 F Last Admin: 11/29/16 13:19 Dose: 650 mg Amiodarone HCl (Cordarone) 200 mg GT DAILY [facility] Last Admin: 12/15/16 09:17 Dose: 200 mg Aspirin (Aspirin Chewable) 81 mg GT DAILY [facility] Last Admin: 12/15/16 09:17 Dose: 81 mg Famotidine (Pepcid) 20 mg PO DAILY [facility] Last Admin: 12/15/16 09:17 Dose: 20 mg Heparin Sodium (Porcine) (Heparin) 5,000 units SC Q12 [facility] Last Admin: 12/15/16 21:05 Dose: 5,000 units Tigecycline 50 mg/ Sodium (Chloride) 50 mls @ 50 mls/hr IVPB Q12H [facility] Last Admin: 12/15/16 19:35 Dose: 50 mls/hr Mupirocin (Bactroban 2% Nasal) 0.5 gm FAN BID [facility] Last Admin: 12/15/16 17:25 Dose: 0.5 gm Rosuvastatin Calcium (Crestor) 5 mg GT HS [facility] Last Admin: 12/15/16 21:05 Dose: 5 mg Saccharomyces Trinitydii (Florastor) 250 mg PO BID [facility] Last Admin: 12/15/16 17:25 Dose: 250 mg - Labs Labs: 12/15/16 06:24 12/15/16 06:24 PT 12.9 SECONDS (9.7-12.2) H 11/15/16 13:58 INR 1.2 11/15/16 13:58 APTT 39 SECONDS (21-34) H 11/15/16 13:58 - Constitutional Appears: Non-toxic, No Acute Distress - Head Exam Head Exam: ATRAUMATIC, NORMAL INSPECTION, NORMOCEPHALIC - Eye Exam Eye Exam: EOMI, Normal appearance, PERRL - ENT Exam ENT Exam: Mucous Membranes Moist - Neck Exam Neck Exam: Normal Inspection Additional comments: trach decannulated - Respiratory Exam Respiratory Exam: Clear to Ausculation Bilateral, NORMAL BREATHING PATTERN. absent: Rales, Rhonchi, Wheezes - Cardiovascular Exam Cardiovascular Exam: +S1, +S2. absent: Bradycardia, Tachycardia - GI/Abdominal Exam GI & Abdominal Exam: Soft, Normal Bowel Sounds. absent: Distended, Firm Additional comments: PEG in place. No discharge. - Extremities Exam Extremities Exam: Normal Inspection. absent: Pedal Edema, Tenderness - Neurological Exam Neurological Exam: Alert, Awake, Oriented x3 - Psychiatric Exam Psychiatric exam: Normal Affect, Normal Mood - Skin Skin Exam: Intact, Normal Color Assessment and Plan - Assessment and Plan (Free Text) Assessment: Tachycardia (acute) * Heart rate currently controlled * Elevated D-dimer--> Ct angio negative for PE; LE Dopplers positive for right peroneal thrombosis (started on Heparin 5000 Q12H). * 12/15/16 Amiodarone 200 mg GT daily * 12/12/16 tachycardia-->Adenosine given --> Atrial flutter-->on IV digoxin and IV cardizem drip. * Cardiology consulted (Dr. Brock) on board; case discussed. * SVT was non-responsive to cardizem, amiodarone, and digoxin. The patient was electrically cardioverted at 23:39 on 12/12/16 with 50J (synchronized and biphasic ). Following the cardioversion, the patient returned to normal sinus rhythm. Nursing staff reports no issues. Patient is no longer tachycardic on monitoring analyst. DVT of RLE LE Dopplers positive for right peroneal thrombosis (started on Heparin 5000 Q12H ) Repeat CT Head without contrast Pending if bleed increased/new bleed present, consider starting therapeutic heparin and convert to Coumadin Intracranial hemorrhage 12/15/16 f/u CT head 11/03/16 CT Head; Interval decrease in size and density left basal ganglia hematoma; well-circumscribed peripheral rim of low attentuation edema about hematoma; combination of brain edema and brain necrosis; intraventricular hemorrhage has diminished. Ventricles hae also decreased in size temporal horns and atria remain prominent. Persistent compression of the 3rd and left lateral ventricle * Neurosurgery per initial consult-->patient's prognosis dismal at beginning of admission * Neurology (Dr. Simpson) on board-->per 10/26 note: patient has attained maximum response from neuro point of view from this admission; keep nutritional status and avoid infectious; treat with peg/trach; no antiplatelets for next 4-6 weeks (maintain MAP ~100) * On baby aspirin 81mg PO daily; discussed with neurology with 11/22/16 Urinary Tract Infection (current) * 12/08/16 VRE UTI on Tygacil. Will order follow-up urinalysis/culture * Multiple UTI infections * Yeast urine treated with Diflucan during hospitalization * Pseudomonas treated with Cipro during hospitalization * VRE UTI currently treated with Tigecycline and contact isolation * [place] condom catheter changed recently * Infectious disease (Dr. Chavez) on board * Tigecycline 50mg IV Q 12hours (active since 12/11/16) * Florastor 250mg PO bid * Monitor LFTS Acute respiratory failure (resolved) * Patient decannulated * s/p tracheostomy 10/28/16 * Patient completed trach collar. Prophylactic care * Patient passed barium swallow. No penetration or aspiration observed. Started on soft diet, small bites. Nurse instructed to feed slowly. Will evaluate for discontinuation of PEG. * s/p peg placement. HOLD PEG feedings. * Weaned off vent; saturating well s/p decanulation * Continue with aggressive PT/OT--> latest PT noted recommending for subacute/ LTAC * on peg feedings/fluid flushes * Reconsult PT/OT and swallow given improvements in motor function * Palliative care reconsult for goals of care * Family trying to secure insurance for the patient and coordinate with case management Disposition * Transferred to tele-ICU given atrial flutter requiring IV Digoxin and IV Cardizem and monitoring of heart rate, may need cardioversion; discussed with cardiology * Patient will need IV abx for VRE UTI at this time. Not stable for discharge given resistant antibiotic for current UTI; will need IV abx to address pneumonia when heart rate is stablized * Pending insurance for [facility] care facility for rehabilitation and peg feedings, will need constant monitoring. PEG feedings currently on hold. * Patient currently wears mittens to prevent him from pulling on his tubes and is unsafe for home. Will need to clarify with family regarding the type of care patient will need with both patient's son and daughters. <Johny Saldana H - Last Filed: 12/16/16 16:04> Objective - Vital Signs/Intake and Output Vital Signs (last 24 hours): Temp Pulse Resp BP Pulse Ox 97.8 F 90 20 139/90 100 12/16/16 15:00 12/16/16 15:00 12/16/16 15:00 12/16/16 15:00 12/16/16 15:00 Intake and Output: 12/16/16 12/16/16 06:59 18:59 Intake Total 400 400 Output Total 1000 900 Balance -600 -500 - Medications Medications: Current Medications Acetaminophen (Tylenol 325mg Tab) 650 mg PO Q6 PRN PRN Reason: Fever >100.4 F Last Admin: 11/29/16 13:19 Dose: 650 mg Amiodarone HCl (Cordarone) 200 mg GT DAILY [facility] Last Admin: 12/16/16 09:29 Dose: 200 mg Aspirin (Aspirin Chewable) 81 mg GT DAILY [facility] Last Admin: 12/16/16 09:29 Dose: 81 mg Famotidine (Pepcid) 20 mg PO DAILY [facility] Last Admin: 12/16/16 09:29 Dose: 20 mg Heparin Sodium (Porcine) (Heparin) 5,000 units SC Q12 [facility] Last Admin: 12/16/16 09:28 Dose: 5,000 units Tigecycline 50 mg/ Sodium (Chloride) 50 mls @ 50 mls/hr IVPB Q12H [facility] Last Admin: 12/16/16 07:55 Dose: 50 mls/hr Mupirocin (Bactroban 2% Nasal) 0.5 gm FAN BID [facility] Last Admin: 12/16/16 09:29 Dose: 0.5 gm Rosuvastatin Calcium (Crestor) 5 mg GT HS [facility] Last Admin: 12/15/16 21:05 Dose: 5 mg Saccharomyces Boulardii (Florastor) 250 mg PO BID [facility] Last Admin: 12/16/16 09:29 Dose: 250 mg - Labs Labs: 12/15/16 06:24 12/15/16 06:24 PT 12.9 SECONDS (9.7-12.2) H 11/15/16 13:58 INR 1.2 11/15/16 13:58 APTT 39 SECONDS (21-34) H 11/15/16 13:58 Attending/Attestation - Attestation I have personally seen and examined this patient.: Yes I have fully participated in the care of the patient.: Yes I have reviewed all pertinent clinical information, including history, physical exam and plan: Yes
[2016-12-16] MEDS: Saccharomyces Boulardi 250 mg Cap PO SCH ×2 (09:29→17:18)
[2016-12-16] MEDS: Mupirocin 2% Ointment (NASAL) NAS SCH ×2 (09:29→17:18)
--- NOTE | 2016-12-16 10:27 | CT ---
PROCEDURE: CT HEAD WITHOUT CONTRAST. HISTORY: evaluate for further bleed COMPARISON: Comparison is made to the previous study dated 11/03/2016 TECHNIQUE: Axial computed tomography images were obtained through the head/brain without intravenous contrast. Radiation dose: Total exam DLP = 1119.06 mGy-cm. This CT exam was performed using one or more of the following dose reduction techniques: Automated exposure control, adjustment of the mA and/or kV according to patient size, and/or use of iterative reconstruction technique. FINDINGS: HEMORRHAGE: No intracranial hemorrhage. BRAIN: Small focal hypodensity at the left basal ganglia corresponding to the area of previous intraparenchymal hemorrhage. Mild chronic microvascular ischemic disease. VENTRICLES: Unremarkable. No hydrocephalus. CALVARIUM: Unremarkable. PARANASAL SINUSES: Unremarkable as visualized. No significant inflammatory changes. MASTOID AIR CELLS: Unremarkable as visualized. No inflammatory changes. OTHER FINDINGS: None. IMPRESSION: No evidence of acute intracranial hemorrhage mass effect or midline shift. Chronic changes in the brain noted. No CT evidence of acute pathology.
--- NOTE | 2016-12-16 11:35 | CP.PCM.PN ---
Subjective - Date & Time of Evaluation Date of Evaluation: 12/16/16 Time of Evaluation: 11:34 - Subjective Subjective: Cardiology Progress Note Dr. Brock Patient seen and examined at the bedside. No acute distress. Nursing staff reports no issues. Patient continues to deny all cardiopulmonary complaints. No interval change from prior examination. 12 point review of systems completes and negative for acute complaints. Objective - Vital Signs/Intake and Output Vital Signs (last 24 hours): Temp Pulse Resp BP Pulse Ox 97.7 F 70 20 132/80 100 12/16/16 07:00 12/16/16 07:00 12/16/16 07:00 12/16/16 07:00 12/16/16 07:00 Intake and Output: 12/16/16 12/16/16 06:59 18:59 Intake Total 400 Output Total 1000 Balance -600 - Medications Medications: Current Medications Acetaminophen (Tylenol 325mg Tab) 650 mg PO Q6 PRN PRN Reason: Fever >100.4 F Last Admin: 11/29/16 13:19 Dose: 650 mg Amiodarone HCl (Cordarone) 200 mg GT DAILY [facility] Last Admin: 12/16/16 09:29 Dose: 200 mg Aspirin (Aspirin Chewable) 81 mg GT DAILY [facility] Last Admin: 12/16/16 09:29 Dose: 81 mg Famotidine (Pepcid) 20 mg PO DAILY [facility] Last Admin: 12/16/16 09:29 Dose: 20 mg Heparin Sodium (Porcine) (Heparin) 5,000 units SC Q12 [facility] Last Admin: 12/16/16 09:28 Dose: 5,000 units Tigecycline 50 mg/ Sodium (Chloride) 50 mls @ 50 mls/hr IVPB Q12H [facility] Last Admin: 12/16/16 07:55 Dose: 50 mls/hr Mupirocin (Bactroban 2% Nasal) 0.5 gm FAN BID [facility] Last Admin: 12/16/16 09:29 Dose: 0.5 gm Rosuvastatin Calcium (Crestor) 5 mg GT HS [facility] Last Admin: 12/15/16 21:05 Dose: 5 mg Saccharomyces Boulardii (Florastor) 250 mg PO BID [facility] Last Admin: 12/16/16 09:29 Dose: 250 mg - Labs Labs: 12/15/16 06:24 12/15/16 06:24 PT 12.9 SECONDS (9.7-12.2) H 11/15/16 13:58 INR 1.2 11/15/16 13:58 APTT 39 SECONDS (21-34) H 11/15/16 13:58 - Additional Findings Additional findings: - Constitutional Appears: Chronically Ill - Head Exam Head Exam: ATRAUMATIC, NORMAL INSPECTION, NORMOCEPHALIC - Eye Exam Eye Exam: EOMI, Normal appearance Pupil Exam: NORMAL ACCOMODATION - ENT Exam ENT Exam: Mucous Membranes Moist, Normal Exam - Neck Exam Neck exam: Positive for: Full Rom, Normal Inspection. Negative for: Tenderness - Respiratory Exam Respiratory Exam: Clear to Auscultation Bilateral, NORMAL BREATHING PATTERN. absent: Decreased Breath Sounds, Rhonchi, Wheezes - Cardiovascular Exam Cardiovascular Exam: REGULAR RHYTHM, +S1, +S2, RRR. absent: Tachycardia, Diastolic murmur, RRR, Systolic Murmur - GI/Abdominal Exam GI & Abdominal Exam: Normal Bowel Sounds, Soft. absent: Distended, Firm, Guarding, Tenderness - Extremities Exam Extremities exam: Positive for: normal capillary refill, normal inspection, pedal pulses present - Neurological Exam Neurological exam: Alert, CN II-XII Intact, Oriented x3 - Skin Skin Exam: Dry, Intact, Normal Color, Warm Assessment and Plan (1) Supraventricular tachycardia Assessment & Plan: AVNRT vs Atrial flutter resolution s/p 50J synchronized/biphasic electric cardioversion overnight ( @ 23:39pm) Continue Amiodarone 200mg GT Daily continue telemetric monitoring will continue to monitor continue aspirin 81mg GT daily continue crestor 5mg GT daily Cardiac Stable Hemodynamically Stable Troponin Negative x 1 (12/12/16: 0.0160) 12/14/16 EKG- Normal sinus rhythm (85bmp), normal intervals, physiologic axis, minimal voltage criteria for LVH 12/12/16 CT Chest- Negative for PE 12/12/16 16:45 EKG- Supraventricular tachycardia (151bpm), normal axis, normal intervals, LVH 10/21/16 Echo- 72% EF with normal systolic and diastolic function 10/21/16- EKG sinus tachy (120bpm), jackelin axis, LVH, St and T wave abnormality in lateral leads (consider ischemia), normal intervals 10/18/16- EKG- normal sinus rhythm, normal axis, normal intervals, LVH Case Discussed with Dr. Vinod Salas PGY1 Status: Resolved
--- NOTE | 2016-12-17 01:48 | CP.PCM.PN ---
Subjective - Date & Time of Evaluation Date of Evaluation: 12/17/16 Time of Evaluation: 01:45 - Subjective Subjective: PGY 1 Medicine Note- Dr. Saldana's service Patient seen and examined in no acute distress. No acute events overnight per nursing. Patient tolerating soft diet. Patient denies abdominal discomfort, nausea,vomiting, chest pain, headaches, palpitations, shortness of breath or pain to lower extremities. Objective - Vital Signs/Intake and Output Vital Signs (last 24 hours): Temp Pulse Resp BP Pulse Ox 97.9 F 87 20 146/88 97 12/16/16 23:25 12/16/16 23:25 12/16/16 23:25 12/16/16 23:25 12/16/16 23:25 Intake and Output: 12/16/16 12/17/16 18:59 06:59 Intake Total 880 Output Total 1300 Balance -420 - Medications Medications: Current Medications Acetaminophen (Tylenol 325mg Tab) 650 mg PO Q6 PRN PRN Reason: Fever >100.4 F Last Admin: 11/29/16 13:19 Dose: 650 mg Amiodarone HCl (Cordarone) 200 mg GT DAILY [facility] Last Admin: 12/16/16 09:29 Dose: 200 mg Aspirin (Aspirin Chewable) 81 mg GT DAILY [facility] Last Admin: 12/16/16 09:29 Dose: 81 mg Famotidine (Pepcid) 20 mg PO DAILY [facility] Last Admin: 12/16/16 09:29 Dose: 20 mg Tigecycline 50 mg/ Sodium (Chloride) 50 mls @ 50 mls/hr IVPB Q12H [facility] Last Admin: 12/16/16 20:00 Dose: 50 mls/hr Mupirocin (Bactroban 2% Nasal) 0.5 gm FAN BID [facility] Last Admin: 12/16/16 17:18 Dose: 0.5 gm Rosuvastatin Calcium (Crestor) 5 mg GT HS [facility] Last Admin: 12/16/16 20:59 Dose: 5 mg Saccharomyces Boulardii (Florastor) 250 mg PO BID [facility] Last Admin: 12/16/16 17:18 Dose: 250 mg - Labs Labs: 12/15/16 06:24 12/15/16 06:24 PT 12.9 SECONDS (9.7-12.2) H 11/15/16 13:58 INR 1.2 11/15/16 13:58 APTT 39 SECONDS (21-34) H 11/15/16 13:58 - Constitutional Appears: Non-toxic, No Acute Distress - Head Exam Head Exam: ATRAUMATIC, NORMAL INSPECTION, NORMOCEPHALIC - Eye Exam Eye Exam: EOMI, Normal appearance, PERRL Pupil Exam: NORMAL ACCOMODATION - ENT Exam ENT Exam: Mucous Membranes Moist Additional comments: prior trach site noted - Neck Exam Neck Exam: Full ROM - Respiratory Exam Respiratory Exam: absent: Wheezes - Cardiovascular Exam Cardiovascular Exam: +S1, +S2 - GI/Abdominal Exam GI & Abdominal Exam: Soft, Normal Bowel Sounds Additional comments: PEG in place. - Extremities Exam Extremities Exam: Normal Capillary Refill, Normal Inspection. absent: Tenderness - Back Exam Back Exam: NORMAL INSPECTION - Neurological Exam Neurological Exam: Alert, Awake, Oriented x3 - Psychiatric Exam Psychiatric exam: Normal Affect, Normal Mood - Skin Skin Exam: Normal Color, Warm Assessment and Plan - Assessment and Plan (Free Text) Assessment: Tachycardia (acute) * Heart rate currently controlled * Elevated D-dimer--> Ct angio negative for PE; LE Dopplers positive for right peroneal thrombosis (started on Heparin 5000 Q12H). * 12/15/16 Amiodarone 200 mg GT daily * 12/12/16 tachycardia-->Adenosine given --> Atrial flutter-->on IV digoxin and IV cardizem drip. * Cardiology consulted (Dr. Brock) on board; case discussed. * SVT was non-responsive to cardizem, amiodarone, and digoxin. The patient was electrically cardioverted at 23:39 on 12/12/16 with 50J (synchronized and biphasic ). Following the cardioversion, the patient returned to normal sinus rhythm. Nursing staff reports no issues. Patient is no longer tachycardic on medical typist. DVT of RLE LE Dopplers positive for right peroneal thrombosis (started on Heparin 5000 Q12H ) Repeat CT Head without contrast - no new intracranial bleed noted 12/16 F/u coags. To begin heparin drip this AM Intracranial hemorrhage 12/15/16 CT head -no new intracranial bleed noted 12/1611/03/16 CT Head; Interval decrease in size and density left basal ganglia hematoma; well-circumscribed peripheral rim of low attentuation edema about hematoma; combination of brain edema and brain necrosis; intraventricular hemorrhage has diminished. Ventricles hae also decreased in size temporal horns and atria remain prominent. Persistent compression of the 3rd and left lateral ventricle * Neurosurgery per initial consult-->patient's prognosis dismal at beginning of admission * Neurology (Dr. Simpson) on board-->per 10/26 note: patient has attained maximum response from neuro point of view from this admission; keep nutritional status and avoid infectious; treat with peg/trach; no antiplatelets for next 4-6 weeks (maintain MAP ~100) * On baby aspirin 81mg PO daily; discussed with neurology with 11/22/16 Urinary Tract Infection (current) * 12/08/16 VRE UTI on Tygacil. Will order follow-up urinalysis/culture * Multiple UTI infections * Yeast urine treated with Diflucan during hospitalization * Pseudomonas treated with Cipro during hospitalization * VRE UTI currently treated with Tigecycline and contact isolation * [place] condom catheter changed recently * Infectious disease (Dr. Chavez) on board * Tigecycline 50mg IV Q 12hours (active since 12/11/16) * Florastor 250mg PO bid * Monitor LFTS Acute respiratory failure (resolved) * Patient decannulated * s/p tracheostomy 10/28/16 * Patient completed trach collar. Prophylactic care * Patient passed barium swallow. No penetration or aspiration observed. Started on soft diet, small bites. Nurse instructed to feed slowly. Will evaluate for discontinuation of PEG. * s/p peg placement. HOLD PEG feedings. * Weaned off vent; saturating well s/p decanulation * Continue with aggressive PT/OT--> latest PT noted recommending for subacute/ LTAC * on peg feedings/fluid flushes * Reconsult PT/OT and swallow given improvements in motor function * Palliative care reconsult for goals of care * Family trying to secure insurance for the patient and coordinate with case management Disposition * Transferred to tele-ICU given atrial flutter requiring IV Digoxin and IV Cardizem and monitoring of heart rate, may need cardioversion; discussed with cardiology * Patient will need IV abx for VRE UTI at this time. Not stable for discharge given resistant antibiotic for current UTI; will need IV abx to address pneumonia when heart rate is stabilized * Pending insurance for [facility] care facility for rehabilitation and peg feedings, will need constant monitoring. PEG feedings currently on hold. * Patient currently wears mittens to prevent him from pulling on his tubes and is unsafe for home. Will need to clarify with family regarding the type of care patient will need with both patient's son and daughters.
[2016-12-17 06:43] LABS: INR 1.2
[2016-12-17 06:58] LABS: CHLORIDE 100 mmol/L (98-107)
[2016-12-17 06:59] LABS: BASO % 0.7 % (0.0-2.0); EOS # 0.2 K/uL (0.0-0.7); EOS % 3.8 % (0.0-4.0); HEMATOCRIT 32.7 % (35.0-51.0); LYMPH # 2.2 K/uL (1.0-4.3); LYMPH % 35.4 % (20.0-40.0); MEAN CELL VOLUME 82.7 fL (80.0-94.0); MEAN CORPUSCULAR HEMOGLOBIN 27.3 pg (27.0-31.0); MEAN PLATELET VOLUME 10.1 fL (7.2-11.7); MONO # 0.6 K/uL (0.0-0.8); MONO % 9.2 % (0.0-10.0); NRBC % 0.1 % (0.0-2.0); POTASSIUM 4.1 mmol/L (3.6-5.2); RED CELL DISTRIBUTION WIDTH 15.4 % (11.5-14.5); SODIUM 136 mmol/L (132-148); WHITE BLOOD COUNT 6.3 K/uL (4.8-10.8)
[2016-12-17 07:01] LABS: ALB/GLOB RATIO 0.8 (1.0-2.1); ALKALINE PHOSPHATASE 104 U/L (38-126); ALT/SGPT 51 U/L (21-72); AST/SGOT 22 U/L (17-59); BILIRUBIN,TOTAL 0.9 mg/dL (0.2-1.3); BLOOD UREA NITROGEN 20 mg/dL (9-20); CARBON DIOXIDE 25 mmol/L (22-30); GFR AFRICAN-AMERICAN > 60; GLUCOSE,RANDOM 73 mg/dL (75-110); TOTAL PROTEIN 6.1 g/dL (6.3-8.3)
[2016-12-17 07:02] LABS: CALCIUM 7.9 mg/dl (8.6-10.4); MAGNESIUM 1.8 mg/dL (1.6-2.3); PHOSPHOROUS 4.4 mg/dL (2.5-4.5)
--- NOTE | 2016-12-17 08:03 | CP.PCM.PN ---
Subjective - Date & Time of Evaluation Date of Evaluation: 12/17/16 Time of Evaluation: 08:00 Objective - Vital Signs/Intake and Output Vital Signs (last 24 hours): Temp Pulse Resp BP Pulse Ox 97.9 F 73 20 146/88 97 12/16/16 23:25 12/17/16 02:40 12/16/16 23:25 12/16/16 23:25 12/16/16 23:25 Intake and Output: 12/17/16 12/17/16 06:59 18:59 Output Total 0 Balance 0 - Medications Medications: Current Medications Acetaminophen (Tylenol 325mg Tab) 650 mg PO Q6 PRN PRN Reason: Fever >100.4 F Last Admin: 11/29/16 13:19 Dose: 650 mg Amiodarone HCl (Cordarone) 200 mg GT DAILY [facility] Last Admin: 12/16/16 09:29 Dose: 200 mg Aspirin (Aspirin Chewable) 81 mg GT DAILY [facility] Last Admin: 12/16/16 09:29 Dose: 81 mg Famotidine (Pepcid) 20 mg PO DAILY [facility] Last Admin: 12/16/16 09:29 Dose: 20 mg Tigecycline 50 mg/ Sodium (Chloride) 50 mls @ 50 mls/hr IVPB Q12H [facility] Last Admin: 12/17/16 07:18 Dose: 50 mls/hr Heparin Sodium/Sodium Chloride (Heparin 41050 Units/250ml 1/2 Normal Saline) 25 ,000 units in 250 mls @ 0 mls/hr IV .Q0M PRN; Protocol; Per Protocol PRN Reason: PROTOCOL Mupirocin (Bactroban 2% Nasal) 0.5 gm FAN BID [facility] Last Admin: 12/16/16 17:18 Dose: 0.5 gm Rosuvastatin Calcium (Crestor) 5 mg GT HS [facility] Last Admin: 12/16/16 20:59 Dose: 5 mg Saccharomyces Boulardii (Florastor) 250 mg PO BID [facility] Last Admin: 12/16/16 17:18 Dose: 250 mg - Labs Labs: 12/17/16 06:27 12/17/16 06:27 PT 13.8 SECONDS (9.7-12.2) H 12/17/16 06:27 INR 1.2 12/17/16 06:27 APTT 41 SECONDS (21-34) H 12/17/16 06:27
[2016-12-17] MEDS ORDERED: Heparin25000 units/250ml 1/2NS 25,000 UNITS/250 ML BAG IV PRN (09:00)
[2016-12-17] MEDS: Mupirocin 2% Ointment (NASAL) NAS SCH ×2 (09:20→18:25)
[2016-12-17] MEDS: Saccharomyces Boulardi 250 mg Cap PO SCH ×2 (09:21→18:25)
--- NOTE | 2016-12-18 01:31 | CP.PCM.PN ---
<Serg Ledbetter - Last Filed: 12/18/16 01:37> Subjective - Date & Time of Evaluation Date of Evaluation: 12/18/16 Time of Evaluation: 01:25 - Subjective Subjective: PGY 1 Medicine Note- Dr. Saldana's service Patient seen and examined in no acute distress. No acute events overnight per nursing. Patient denies any specific pain. He states that he attempts ambulating. Patient denies abdominal discomfort, nausea,vomiting, chest pain, headaches, palpitations, shortness of breath or pain to lower extremities. Objective - Vital Signs/Intake and Output Vital Signs (last 24 hours): Temp Pulse Resp BP Pulse Ox 97.9 F 89 20 148/90 100 12/17/16 23:10 12/17/16 23:10 12/17/16 23:10 12/17/16 23:10 12/17/16 23:10 Intake and Output: 12/17/16 12/18/16 18:59 06:59 Intake Total 600 400 Output Total 1150 650 Balance -550 -250 - Medications Medications: Current Medications Acetaminophen (Tylenol 325mg Tab) 650 mg PO Q6 PRN PRN Reason: Fever >100.4 F Last Admin: 11/29/16 13:19 Dose: 650 mg Amiodarone HCl (Cordarone) 200 mg GT DAILY [facility] Last Admin: 12/17/16 09:21 Dose: 200 mg Aspirin (Aspirin Chewable) 81 mg GT DAILY [facility] Last Admin: 12/17/16 09:21 Dose: 81 mg Famotidine (Pepcid) 20 mg PO DAILY [facility] Last Admin: 12/17/16 09:21 Dose: 20 mg Tigecycline 50 mg/ Sodium (Chloride) 100 mls @ 50 mls/hr IVPB Q12H [facility] Last Admin: 12/17/16 21:41 Dose: 50 mls/hr Mupirocin (Bactroban 2% Nasal) 0.5 gm FAN BID [facility] Last Admin: 12/17/16 18:25 Dose: 0.5 gm Rosuvastatin Calcium (Crestor) 5 mg GT HS [facility] Last Admin: 12/17/16 21:40 Dose: 5 mg Saccharomyces Boulardii (Florastor) 250 mg PO BID [facility] Last Admin: 12/17/16 18:25 Dose: 250 mg - Labs Labs: 12/17/16 06:27 12/17/16 06:27 PT 13.8 SECONDS (9.7-12.2) H 12/17/16 06:27 INR 1.2 12/17/16 06:27 APTT 41 SECONDS (21-34) H 12/17/16 06:27 - Constitutional Appears: Non-toxic, No Acute Distress - Head Exam Head Exam: ATRAUMATIC, NORMAL INSPECTION, NORMOCEPHALIC - Eye Exam Eye Exam: EOMI, Normal appearance, PERRL Pupil Exam: NORMAL ACCOMODATION - ENT Exam ENT Exam: Mucous Membranes Moist Additional comments: prior trach incision site noted - Neck Exam Neck Exam: Full ROM - Respiratory Exam Respiratory Exam: Clear to Ausculation Bilateral. absent: Wheezes - Cardiovascular Exam Cardiovascular Exam: +S1, +S2 - GI/Abdominal Exam GI & Abdominal Exam: Soft, Normal Bowel Sounds - Extremities Exam Extremities Exam: Normal Capillary Refill, Normal Inspection - Back Exam Back Exam: Full ROM, NORMAL INSPECTION - Neurological Exam Neurological Exam: Alert, Awake, CN II-XII Intact, Oriented x3 - Psychiatric Exam Psychiatric exam: Normal Affect, Normal Mood - Skin Skin Exam: Dry, Normal Color, Warm Assessment and Plan - Assessment and Plan (Free Text) Assessment: Tachycardia (acute) * Heart rate currently controlled * Elevated D-dimer--> Ct angio negative for PE; LE Dopplers positive for right peroneal thrombosis (started on Heparin 5000 Q12H). * 12/15/16 Amiodarone 200 mg GT daily * 12/12/16 tachycardia-->Adenosine given --> Atrial flutter-->on IV digoxin and IV cardizem drip. * Cardiology consulted (Dr. Brock) on board; case discussed. * SVT was non-responsive to cardizem, amiodarone, and digoxin. The patient was electrically cardioverted at 23:39 on 12/12/16 with 50J (synchronized and biphasic ). Following the cardioversion, the patient returned to normal sinus rhythm. Nursing staff reports no issues. 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 DVT of RLE LE Dopplers positive for right peroneal thrombosis (started on Heparin 5000 Q12H ) Repeat CT Head without contrast - no new intracranial bleed noted 5/5 F/u coags. Heparin order discontinued in light of prior intracranial hemorrhage. (The heparin drip was not actualy started) Will opt for Lovenox instead. Lovenox 60 SC Q12 Intracranial hemorrhage 12/15/16 CT head -no new intracranial bleed noted 12/1611/03/16 CT Head; Interval decrease in size and density left basal ganglia hematoma; well-circumscribed peripheral rim of low attentuation edema about hematoma; combination of brain edema and brain necrosis; intraventricular hemorrhage has diminished. Ventricles hae also decreased in size temporal horns and atria remain prominent. Persistent compression of the 3rd and left lateral ventricle * Neurosurgery per initial consult-->patient's prognosis dismal at beginning of admission * Neurology (Dr. Simpson) on board-->per 10/26 note: patient has attained maximum response from neuro point of view from this admission; keep nutritional status and avoid infectious; treat with peg/trach; no antiplatelets for next 4-6 weeks (maintain MAP ~100) * On baby aspirin 81mg PO daily; discussed with neurology with 11/22/16 Urinary Tract Infection (current) * 12/08/16 VRE UTI on Tygacil. Will order follow-up urinalysis/culture * Multiple UTI infections * Yeast urine treated with Diflucan during hospitalization * Pseudomonas treated with Cipro during hospitalization * VRE UTI currently treated with Tigecycline and contact isolation * [place] condom catheter changed recently * Infectious disease (Dr. Chavez) on board * Tigecycline 50mg IV Q 12hours (active since 12/11/16) * Florastor 250mg PO bid * Monitor LFTS Acute respiratory failure (resolved) * Patient decannulated * s/p tracheostomy 10/28/16 * Patient completed trach collar. Prophylactic care * Patient passed barium swallow. No penetration or aspiration observed. Started on soft diet, small bites. Nurse instructed to feed slowly. Will evaluate for discontinuation of PEG. * s/p peg placement. HOLD PEG feedings. * Weaned off vent; saturating well s/p decanulation * Continue with aggressive PT/OT--> latest PT noted recommending for subacute/ LTAC * on peg feedings/fluid flushes * Reconsult PT/OT and swallow given improvements in motor function * Palliative care reconsult for goals of care * Family trying to secure insurance for the patient and coordinate with case management * Lovenox 60 SC Q12 for DVT treatment Disposition * Transferred to tele-ICU given atrial flutter requiring IV Digoxin and IV Cardizem and monitoring of heart rate, may need cardioversion; discussed with cardiology * Patient will need IV abx for VRE UTI at this time. Not stable for discharge given resistant antibiotic for current UTI; will need IV abx to address pneumonia when heart rate is stabilized * Pending insurance for [employer] intermediary care facility for rehabilitation and peg feedings, will need constant monitoring. PEG feedings currently on hold. * Patient currently wears mittens to prevent him from pulling on his tubes and is unsafe for home. Will need to clarify with family regarding the type of care patient will need with both patient's son and daughters. <Johny Saldana H - Last Filed: 12/18/16 08:30> Objective - Vital Signs/Intake and Output Vital Signs (last 24 hours): Temp Pulse Resp BP Pulse Ox 98.7 F 79 20 132/87 100 12/18/16 07:15 12/18/16 07:15 12/18/16 07:15 12/18/16 07:15 12/18/16 07:15 Intake and Output: 12/18/16 12/18/16 06:59 18:59 Intake Total 640 Output Total 650 Balance -10 - Medications Medications: Current Medications Acetaminophen (Tylenol 325mg Tab) 650 mg PO Q6 PRN PRN Reason: Fever >100.4 F Last Admin: 11/29/16 13:19 Dose: 650 mg Amiodarone HCl (Cordarone) 200 mg GT DAILY [facility] Last Admin: 12/17/16 09:21 Dose: 200 mg Aspirin (Aspirin Chewable) 81 mg GT DAILY [facility] Last Admin: 12/17/16 09:21 Dose: 81 mg Enoxaparin Sodium (Lovenox) 60 mg SC Q12 [facility] Famotidine (Pepcid) 20 mg PO DAILY [facility] Last Admin: 12/17/16 09:21 Dose: 20 mg Tigecycline 50 mg/ Sodium (Chloride) 100 mls @ 50 mls/hr IVPB Q12H [facility] Last Admin: 12/17/16 21:41 Dose: 50 mls/hr Mupirocin (Bactroban 2% Nasal) 0.5 gm FAN BID [facility] Last Admin: 12/17/16 18:25 Dose: 0.5 gm Rosuvastatin Calcium (Crestor) 5 mg GT HS [facility] Last Admin: 12/17/16 21:40 Dose: 5 mg Saccharomyces Boulardii (Florastor) 250 mg PO BID [facility] Last Admin: 12/17/16 18:25 Dose: 250 mg - Labs Labs: 12/17/16 06:27 12/17/16 06:27 PT 14.5 SECONDS (9.7-12.2) H 12/18/16 06:50 INR 1.3 12/18/16 06:50 APTT 41 SECONDS (21-34) H 12/17/16 06:27 Attending/Attestation - Attestation I have personally seen and examined this patient.: Yes I have fully participated in the care of the patient.: Yes I have reviewed all pertinent clinical information, including history, physical exam and plan: Yes Notes (Text): Medical Attending: Patient was seen and examined by me. Started on lovenox SC BID as he does have a DVT, the head CT was stable He looks very well. I watched him eating breakfast this morning and he was able to use the fork and knives slowy and take 100% of the food As before he is moving legs as well. thank you Johny Saldana
[2016-12-18 07:05] LABS: INR 1.3
--- NOTE | 2016-12-18 07:23 | CP.PCM.PN ---
Subjective - Date & Time of Evaluation Date of Evaluation: 12/18/16 Time of Evaluation: 06:55 Objective - Vital Signs/Intake and Output Vital Signs (last 24 hours): Temp Pulse Resp BP Pulse Ox 97.9 F 89 20 148/90 100 12/17/16 23:10 12/17/16 23:10 12/17/16 23:10 12/17/16 23:10 12/17/16 23:10 Intake and Output: 12/18/16 12/18/16 06:59 18:59 Intake Total 640 Output Total 650 Balance -10 - Medications Medications: Current Medications Acetaminophen (Tylenol 325mg Tab) 650 mg PO Q6 PRN PRN Reason: Fever >100.4 F Last Admin: 11/29/16 13:19 Dose: 650 mg Amiodarone HCl (Cordarone) 200 mg GT DAILY [facility] Last Admin: 12/17/16 09:21 Dose: 200 mg Aspirin (Aspirin Chewable) 81 mg GT DAILY [facility] Last Admin: 12/17/16 09:21 Dose: 81 mg Enoxaparin Sodium (Lovenox) 60 mg SC Q12 [facility] Famotidine (Pepcid) 20 mg PO DAILY [facility] Last Admin: 12/17/16 09:21 Dose: 20 mg Tigecycline 50 mg/ Sodium (Chloride) 100 mls @ 50 mls/hr IVPB Q12H [facility] Last Admin: 12/17/16 21:41 Dose: 50 mls/hr Mupirocin (Bactroban 2% Nasal) 0.5 gm FAN BID [facility] Last Admin: 12/17/16 18:25 Dose: 0.5 gm Rosuvastatin Calcium (Crestor) 5 mg GT HS [facility] Last Admin: 12/17/16 21:40 Dose: 5 mg Saccharomyces Boulardii (Florastor) 250 mg PO BID [facility] Last Admin: 12/17/16 18:25 Dose: 250 mg - Labs Labs: 12/17/16 06:27 12/17/16 06:27 PT 14.5 SECONDS (9.7-12.2) H 12/18/16 06:50 INR 1.3 12/18/16 06:50 APTT 41 SECONDS (21-34) H 12/17/16 06:27
--- NOTE | 2016-12-18 07:31 | CP.PCM.PN ---
Subjective - Date & Time of Evaluation Date of Evaluation: 12/18/16 Time of Evaluation: 07:30 Objective - Vital Signs/Intake and Output Vital Signs (last 24 hours): Temp Pulse Resp BP Pulse Ox 97.9 F 89 20 148/90 100 12/17/16 23:10 12/17/16 23:10 12/17/16 23:10 12/17/16 23:10 12/17/16 23:10 Intake and Output: 12/18/16 12/18/16 06:59 18:59 Intake Total 640 Output Total 650 Balance -10 - Medications Medications: Current Medications Acetaminophen (Tylenol 325mg Tab) 650 mg PO Q6 PRN PRN Reason: Fever >100.4 F Last Admin: 11/29/16 13:19 Dose: 650 mg Amiodarone HCl (Cordarone) 200 mg GT DAILY [facility] Last Admin: 12/17/16 09:21 Dose: 200 mg Aspirin (Aspirin Chewable) 81 mg GT DAILY [facility] Last Admin: 12/17/16 09:21 Dose: 81 mg Enoxaparin Sodium (Lovenox) 60 mg SC Q12 [facility] Famotidine (Pepcid) 20 mg PO DAILY [facility] Last Admin: 12/17/16 09:21 Dose: 20 mg Tigecycline 50 mg/ Sodium (Chloride) 100 mls @ 50 mls/hr IVPB Q12H [facility] Last Admin: 12/17/16 21:41 Dose: 50 mls/hr Mupirocin (Bactroban 2% Nasal) 0.5 gm FAN BID [facility] Last Admin: 12/17/16 18:25 Dose: 0.5 gm Rosuvastatin Calcium (Crestor) 5 mg GT HS [facility] Last Admin: 12/17/16 21:40 Dose: 5 mg Saccharomyces Boulardii (Florastor) 250 mg PO BID [facility] Last Admin: 12/17/16 18:25 Dose: 250 mg - Labs Labs: 12/17/16 06:27 12/17/16 06:27 PT 14.5 SECONDS (9.7-12.2) H 12/18/16 06:50 INR 1.3 12/18/16 06:50 APTT 41 SECONDS (21-34) H 12/17/16 06:27
[2016-12-18] MEDS: Mupirocin 2% Ointment (NASAL) NAS SCH ×2 (10:03→18:12)
[2016-12-18] MEDS: Saccharomyces Boulardi 250 mg Cap PO SCH ×2 (10:03→18:12)
[2016-12-18] MEDS: Enoxaparin 60 mg Syringe SC SCH ×2 (12:46→21:13)
[2016-12-19 08:15] LABS: BASO # 0.1 K/uL (0.0-0.2); BASO % 0.9 % (0.0-2.0); EOS # 0.2 K/uL (0.0-0.7); EOS % 2.2 % (0.0-4.0); HEMATOCRIT 32.8 % (35.0-51.0); LYMPH # 2.3 K/uL (1.0-4.3); LYMPH % 28.2 % (20.0-40.0); MEAN CELL VOLUME 83.5 fL (80.0-94.0); MEAN CORPUSCULAR HEMOGLOBIN 27.4 pg (27.0-31.0); MEAN CORPUSCULAR HGB CONC 32.9 g/dL (33.0-37.0); MEAN PLATELET VOLUME 10.2 fL (7.2-11.7); MONO # 0.7 K/uL (0.0-0.8); MONO % 8.7 % (0.0-10.0); NRBC % 0.2 % (0.0-2.0); WHITE BLOOD COUNT 8.1 K/uL (4.8-10.8)
[2016-12-19 08:41] LABS: CHLORIDE 100 mmol/L (98-107)
[2016-12-19 08:42] LABS: POTASSIUM 4.4 mmol/L (3.6-5.2); SODIUM 136 mmol/L (132-148)
[2016-12-19 08:44] LABS: ALB/GLOB RATIO 0.8 (1.0-2.1); AST/SGOT 21 U/L (17-59); BILIRUBIN,TOTAL 0.8 mg/dL (0.2-1.3); BLOOD UREA NITROGEN 27 mg/dL (9-20); CARBON DIOXIDE 26 mmol/L (22-30); GFR AFRICAN-AMERICAN > 60; TOTAL PROTEIN 6.2 g/dL (6.3-8.3)
[2016-12-19 08:45] LABS: ALKALINE PHOSPHATASE 106 U/L (38-126); ALT/SGPT 45 U/L (21-72); CALCIUM 7.7 mg/dl (8.6-10.4); GLUCOSE,RANDOM 67 mg/dL (75-110); MAGNESIUM 1.8 mg/dL (1.6-2.3); PHOSPHOROUS 4.4 mg/dL (2.5-4.5)
--- NOTE | 2016-12-19 10:33 | CP.PCM.PN ---
Subjective - Date & Time of Evaluation Date of Evaluation: 12/19/16 Time of Evaluation: 10:31 - Subjective Subjective: Cardiology. PGY-[address] rBock Pt laying comfortable in bed. Denies palpitation, dizziness, CP, SOB. Objective - Vital Signs/Intake and Output Vital Signs (last 24 hours): Temp Pulse Resp BP Pulse Ox 98.0 F 79 20 133/86 100 12/19/16 08:41 12/19/16 08:41 12/19/16 08:41 12/19/16 08:41 12/19/16 08:41 Intake and Output: 12/19/16 12/19/16 06:59 18:59 Intake Total 940 Output Total 1050 Balance -110 - Medications Medications: Current Medications Acetaminophen (Tylenol 325mg Tab) 650 mg PO Q6 PRN PRN Reason: Fever >100.4 F Last Admin: 11/29/16 13:19 Dose: 650 mg Amiodarone HCl (Cordarone) 200 mg GT DAILY [facility] Last Admin: 12/18/16 10:03 Dose: 200 mg Aspirin (Aspirin Chewable) 81 mg GT DAILY [facility] Last Admin: 12/18/16 10:03 Dose: 81 mg Enoxaparin Sodium (Lovenox) 60 mg SC Q12 [facility] Last Admin: 12/18/16 21:13 Dose: 60 mg Famotidine (Pepcid) 20 mg PO DAILY [facility] Last Admin: 12/18/16 10:03 Dose: 20 mg Tigecycline 50 mg/ Sodium (Chloride) 100 mls @ 50 mls/hr IVPB Q12H [facility] Last Admin: 12/18/16 20:44 Dose: 50 mls/hr Mupirocin (Bactroban 2% Nasal) 0.5 gm FAN BID [facility] Last Admin: 12/18/16 18:12 Dose: 0.5 gm Rosuvastatin Calcium (Crestor) 5 mg GT HS [facility] Last Admin: 12/18/16 21:13 Dose: 5 mg Saccharomyces Boulardii (Florastor) 250 mg PO BID [facility] Last Admin: 12/18/16 18:12 Dose: 250 mg - Labs Labs: 12/19/16 08:04 12/19/16 08:04 PT 14.5 SECONDS (9.7-12.2) H 12/18/16 06:50 INR 1.3 12/18/16 06:50 APTT 41 SECONDS (21-34) H 12/17/16 06:27 - Constitutional Appears: No Acute Distress - Head Exam Head Exam: ATRAUMATIC, NORMOCEPHALIC - Eye Exam Eye Exam: EOMI, Normal appearance, PERRL. absent: Scleral icterus - ENT Exam ENT Exam: Mucous Membranes Moist - Respiratory Exam Respiratory Exam: Clear to Ausculation Bilateral, NORMAL BREATHING PATTERN. absent: Rales, Rhonchi, Wheezes - Cardiovascular Exam Cardiovascular Exam: REGULAR RHYTHM, +S1, +S2. absent: Murmur - GI/Abdominal Exam GI & Abdominal Exam: Soft, Normal Bowel Sounds. absent: Guarding, Tenderness - Extremities Exam Extremities Exam: Normal Capillary Refill. absent: Calf Tenderness, Pedal Edema - Neurological Exam Neurological Exam: Alert, Awake, Oriented x3 - Psychiatric Exam Psychiatric exam: Normal Affect, Normal Mood Assessment and Plan - Assessment and Plan (Free Text) Plan: 56 M with a PMH for HTN and intracranial bleed s/p tracheostomy (10/18/16), downgraded from ICU for new onset tachycardia -- supraventricular tachycardia vs atrial flutter, non responsive to IV cardizem, amiodarone, and IV digioxin. Cardioverted at 50J (synchronized and biphasic, 12/12/16), successfully converted to NSR. Started amiodarone 200mg GT daily last week. Downgraded from ICU. AVNRT vs A flutter - Amiodarone 200 - VS stable CV risk modification - ASA, crestor DVT-R peroneal thromosis - CTA negative for PE - Lovenox 60 SC q12 Hx ICH - repeat CT head negative for bleed 12/16 VRE UTI - managed by primary team S/D/R/w Dr. Brock
[2016-12-19] MEDS: Enoxaparin 60 mg Syringe SC SCH ×2 (11:20→21:10)
[2016-12-19] MEDS: Saccharomyces Boulardi 250 mg Cap PO SCH ×2 (11:21→17:53)
[2016-12-19] MEDS: Mupirocin 2% Ointment (NASAL) NAS SCH ×2 (11:23→17:53)
--- NOTE | 2016-12-19 18:21 | CP.PCM.PN ---
<Jh Minor - Last Filed: 12/19/16 18:25> Subjective - Date & Time of Evaluation Date of Evaluation: 12/19/16 Time of Evaluation: 18:20 - Subjective Subjective: Medicine progress note. Attending: Dr. Vidal Pt seen and examined at bedside. No acute distress. No events overnight. Pt is getting meds through PEG tube. Can start to do calorie count in order to see if pt can be titrated off of PEG tube. Pt has much improved neurologic function. Denies fevers, chills, vomiting, diarrhea, chest pain, shortness of breath. Objective - Vital Signs/Intake and Output Vital Signs (last 24 hours): Temp Pulse Resp BP Pulse Ox 97.4 F L 80 20 150/96 H 100 12/19/16 15:30 12/19/16 15:30 12/19/16 15:30 12/19/16 15:30 12/19/16 15:30 Intake and Output: 12/19/16 12/19/16 06:59 18:59 Intake Total 940 Output Total 1050 265 Balance -110 -265 - Medications Medications: Current Medications Acetaminophen (Tylenol 325mg Tab) 650 mg PO Q6 PRN PRN Reason: Fever >100.4 F Last Admin: 11/29/16 13:19 Dose: 650 mg Amiodarone HCl (Cordarone) 200 mg GT DAILY [facility] Last Admin: 12/19/16 11:21 Dose: 200 mg Aspirin (Aspirin Chewable) 81 mg GT DAILY [facility] Last Admin: 12/19/16 11:21 Dose: 81 mg Enoxaparin Sodium (Lovenox) 60 mg SC Q12 [facility] Last Admin: 12/19/16 11:20 Dose: 60 mg Famotidine (Pepcid) 20 mg PO DAILY [facility] Last Admin: 12/19/16 11:21 Dose: 20 mg Tigecycline 50 mg/ Sodium (Chloride) 100 mls @ 50 mls/hr IVPB Q12H [facility] Last Admin: 12/19/16 08:00 Dose: 50 mls/hr Mupirocin (Bactroban 2% Nasal) 0.5 gm FAN BID [facility] Last Admin: 12/19/16 17:53 Dose: 0.5 gm Rosuvastatin Calcium (Crestor) 5 mg GT HS [facility] Last Admin: 12/18/16 21:13 Dose: 5 mg Saccharomyces Boulardii (Florastor) 250 mg PO BID [facility] Last Admin: 12/19/16 17:53 Dose: 250 mg - Labs Labs: 12/19/16 08:04 12/19/16 08:04 PT 14.5 SECONDS (9.7-12.2) H 12/18/16 06:50 INR 1.3 12/18/16 06:50 APTT 41 SECONDS (21-34) H 12/17/16 06:27 - Constitutional Appears: Non-toxic, No Acute Distress - Head Exam Head Exam: ATRAUMATIC, NORMOCEPHALIC - Eye Exam Eye Exam: EOMI - ENT Exam ENT Exam: Mucous Membranes Moist - Neck Exam Neck Exam: absent: Normal Inspection - Respiratory Exam Respiratory Exam: Decreased Breath Sounds, NORMAL BREATHING PATTERN. absent: Respiratory Distress - Cardiovascular Exam Cardiovascular Exam: +S1, +S2 - GI/Abdominal Exam GI & Abdominal Exam: Soft, Normal Bowel Sounds. absent: Tenderness - Extremities Exam Extremities Exam: Full ROM - Neurological Exam Neurological Exam: Alert, Awake - Psychiatric Exam Psychiatric exam: Normal Affect, Normal Mood - Skin Skin Exam: Dry, Intact, Normal Color, Warm Assessment and Plan - Assessment and Plan (Free Text) Assessment: 1. Tachycardia -Heart rate currently controlled -Elevated D-dimer--> Ct angio negative for PE; LE Dopplers positive for right peroneal thrombosis -pt cardioverted on 5-1 -continue amiodarone daily -continue asa 81 daily 2. DVT of RLE -LE Dopplers positive for right peroneal thrombosis -Repeat CT Head without contrast - no new intracranial bleed noted 12/16 -continue lovenox 60 q 12. 3. Intracranial hemorrhage -12/15/16 CT head -no new intracranial bleed noted 12/16 -no further intervention from neurology or neurosx -continue to monitor for bleeding 4. Urinary Tract Infection - repeat urine culture pending -continue tigecycline 50 mg q 12 -urine cultures have grown VRE -Dr. Chavez has been consulted. recs appreciated -continue florastor BID 5. Acute respiratory failure -resolved -pt has been decannulated 6. Hx of HLD -continue crestor HS 7. Prophylactic care - Patient passed barium swallow. No penetration or aspiration observed. Will evaluate for discontinuation of PEG. -pt to have calorie count in order to titrate off peg -continue pepcid 20 daily -continue lovenox q 12 daily Disposition -Pending insurance for [facility] facility for rehabilitation and peg feedings, will need constant monitoring discussed with Dr. Vidal <Apple Vidal V - Last Filed: 12/19/16 23:33> Objective - Vital Signs/Intake and Output Vital Signs (last 24 hours): Temp Pulse Resp BP Pulse Ox 97.4 F L 79 20 150/96 H 100 12/19/16 15:30 12/19/16 15:30 12/19/16 15:30 12/19/16 15:30 12/19/16 15:30 Intake and Output: 12/19/16 12/20/16 18:59 06:59 Output Total 265 Balance -265 - Medications Medications: Current Medications Acetaminophen (Tylenol 325mg Tab) 650 mg PO Q6 PRN PRN Reason: Fever >100.4 F Last Admin: 11/29/16 13:19 Dose: 650 mg Amiodarone HCl (Cordarone) 200 mg GT DAILY [facility] Last Admin: 12/19/16 11:21 Dose: 200 mg Aspirin (Aspirin Chewable) 81 mg GT DAILY [facility] Last Admin: 12/19/16 11:21 Dose: 81 mg Enoxaparin Sodium (Lovenox) 60 mg SC Q12 [facility] Last Admin: 12/19/16 21:10 Dose: 60 mg Famotidine (Pepcid) 20 mg PO DAILY [facility] Last Admin: 12/19/16 11:21 Dose: 20 mg Tigecycline 50 mg/ Sodium (Chloride) 100 mls @ 50 mls/hr IVPB Q12H [facility] Last Admin: 12/19/16 21:10 Dose: 50 mls/hr Mupirocin (Bactroban 2% Nasal) 0.5 gm FAN BID [facility] Last Admin: 12/19/16 17:53 Dose: 0.5 gm Rosuvastatin Calcium (Crestor) 5 mg GT HS [facility] Last Admin: 12/19/16 21:10 Dose: 5 mg Saccharomyces Boulardii (Florastor) 250 mg PO BID [facility] Last Admin: 12/19/16 17:53 Dose: 250 mg - Labs Labs: 12/19/16 08:04 12/19/16 08:04 PT 14.5 SECONDS (9.7-12.2) H 12/18/16 06:50 INR 1.3 12/18/16 06:50 APTT 41 SECONDS (21-34) H 12/17/16 06:27 Attending/Attestation - Attestation I have personally seen and examined this patient.: Yes I have fully participated in the care of the patient.: Yes I have reviewed all pertinent clinical information, including history, physical exam and plan: Yes Notes (Text): Patient seen, examined and case discussed with day-time resident. Patient see at bedside. Patient denies acute complaints. Patient ordered for calorie counts. Patient is currently on Tigecycline IV for VRE UTI, contact isolation, will order for repeat urine culture. Will order for INR tomorrow to attempt to bridge for DVT+. Assessment/Plan (1) Intracranial hemorrhage Assessment & Plan: 10/18 CT Head: Left basal ganglia acute hemorrhage, possibly hypertensive with associated intraventricular hemorrhage and mass effect upon the left lateral aspect of the 3rd ventricle with the tip shift of the 3rd ventricle towards the right side. No generalized midline shift. Air-fluid level in sphenoid sinus common nonspecific. Please correlate for concern regarding acute sinusitis. Mild involutional changes. 10/19 CT Head: little interval change in the known 2.0 x 2.7 acute hematoma in left thalamus with intra ventricular extension of hemorrhage. Interval mild worsening of obstructive hydrocephalus. 10/24 CT Head: little interval change in the size of left thalamic hemorrhage 2.4x2.9 cm with intraventricular extension of hemorrhage and mild obstructive hydrocephalus. 2 mm midline shift from left to right with no evidence of herniation. Near complete resolution of hemorrhage within 4th ventricle. 11/03/16 CT Head; Interval decrease in size and density left basal ganglia hematoma; well-circumscribed peripheral rim of low attentuation edema about hematoma; combination of brain edema and brain necrosis; intraventricular hemorrhage has diminished. Ventricles hae also decreased in size temporal horns and atria remain prominent. Persistent compression of the 3rd and left lateral ventricle 12/16/16 CT Head: no acute findings noted * Neurosurgery per initial consult-->patient's prognosis dismal at beginning of admission * Neurology (Dr. Simpson) on board-->per 10/26 note: patient has attained maximum response from neuro point of view from this admission; keep nutritional status and avoid infectious; treat with peg/trach; no antiplatelets for next 4-6 weeks (; maintain MAP ~100) * On baby aspirin 81mg PO daily; discussed with neurology with 11/22/16 * Patient started on therapeutic Lovenox for DVT+, will follow-up INR Status: Chronic (2) Atrial Flutter Assessment & Plan: * Cardiology consulted (Dr. Brock) on board; case discussed * elevated D-dimer-->Ct angio negative for PE * 12/12/16 tachycardia-->Adenosine given --> Atrial flutter--> did not improve with digoxin, cardizem, and amiodarone, requiring cardioversion, which converted * Cardiology consulted (Dr. Brock) on board; case discussed * Thyroid studies negative * Amiodarone 200mg GT daily (3) Hypertension Assessment & Plan: * monitor vital signs * controlled * elevated in the afternoon-->restarted Norvasc 5mg PO daily (4) Deep vein thrombosis * per 12/12/16 Doppler: right peroneal vein DVT+ * Patient is currently on therapuetic lovenox * Ordered for INR in AM (5) Acute respiratory failure (resolved) Assessment & Plan: * s/p tracheostomy 10/28/16 * Patient completed trach collar. * Weaning completed; off ventilator * Saturating well. * Monitor dressing change of trach site * Pulmonary (Dr. Bailey) consulted to assist with weaning protocol * Mucomyst PRN to help thin out secretions * Duonebs PRN shortness of breathe * monitor and may need suctioning PRN * Completed decannulation on 10/30/16; saturating well * Consulted speech-->patient not appropriate for speak-easy valve status post decannulation; encourage speaking * Discussed with ENT-->outpatient due to mild vocal cord dysfunction * Discussed with swallow-->patient has a strong cough, can be started on pleasure feedings and/or pureed diet to try to transition off peg Status: resolved (6) CVA (cerebral vascular accident) Assessment & Plan: * Hemorrhagic stroke with associated hypotension and basal ganglia involvement on admission * [id number]:5.7 * Cholestrol: 202, TG: LDL:130 HDL:52 * Aspirin 81mg PO daily * Blood pressure control monitoring * Start on Crestor 5mg POqHS * s/p peg placement; feedings via peg started on 11/17/16; monitor for residual * Patient currently on 60cc/hr feeds with 400cc Q 8 hours of water flushes (7) Sepsis (resolved) Assessment & Plan: Per 11/05; Fever 103F and associated leukocytosis: 21.8; infection: pneumonia ( which was treated with Meropenem during the course of hospitalization) Infectious disease on board (Dr. Chavez) 10/21 Sputum-Klebsiella (sensitive to Maxipime) 10/25 Serratia and Enterobacter (sensitive to Maxipime) 10/31 Sputum: normal 11/06: Enterobacter which is sensitive Meropenem (switch from Maxipime) 11/06 Urine culture: yeast 11/09 Urine culture: yeast 11/09 Blood culture: no growth for 5 days X2 11/21 Urine culture: yeast 11/26: Urine culture: Pseudomonas 12/08: Urine culture: VRE UTI (patient not septic at time of current UTI) (8) Urinary Tract Infection (current) * 12/08/16 VRE UTI * Multiple UTI infections * Yeast urine treated with Diflucan during hospitalization * Pseudomonas treated with Cipro during hospitalization * VRE UTI currently treated with Tigecycline and contact isolation * [place] condom catheter changed recently * Infectious disease (Dr. Chavez) on board * Tigecycline 50mg IV Q 12hours (active since 12/11/16) * Florastor 250mg PO bid * Monitor LFTS * pending repeat urine culture to possible d/c tigecycline (7) Hypernatremia * Free water: 400 water Q 8hours flushes peg * sodium normalized (8) Prophylactic care * s/p peg placement * Weaned off vent; saturating well s/p decanulation * Continue with aggressive PT/OT-->latest PT noted recommending for subacute/ LTAC * on peg feedings/fluid flushes * PT/OT * Monitor calorie count, to attempt to transition patient off peg feedings * Patient is on therapeutic lovenox for DVT+ first time, follow-up INR Disposition * Patient is currently on IV abx for VRE UTI at this time. Pending repeat urine culture. * Ordered for calorie count to determine if we can transition patient off peg feedings * Will need anticoagulation for for DVT+ * Pending insurance for [facility] facility for rehabilitation and peg feedings, will need constant monitoring. Patient currently wears mittens to prevent him from pulling on his tubes and is unsafe for home. Will need to clarify with family regarding the type of care patient will need with both patient's son and daughters.
[2016-12-20 07:49] LABS: INR 1.3
--- NOTE | 2016-12-20 09:51 | CP.PCM.PN ---
Subjective - Date & Time of Evaluation Date of Evaluation: 12/20/16 Time of Evaluation: 09:15 - Subjective Subjective: Cardiology Progress Note- Dr. Brock Service Patient seen and examined at bedside this AM. Patient is laying comfortably in bed in NAD. He just finished his breakfast. He denies chest pain, SOB, palpitations, or other cardiopulmonary complaints. No acute events overnight per nursing. 12 point review of systems completes and negative for acute complaints. Objective - Vital Signs/Intake and Output Vital Signs (last 24 hours): Temp Pulse Resp BP Pulse Ox 98.1 F 81 20 132/85 99 12/20/16 07:24 12/20/16 07:24 12/20/16 07:24 12/20/16 07:24 12/20/16 07:24 Intake and Output: 12/20/16 12/20/16 06:59 18:59 Intake Total 240 Output Total 400 Balance -160 - Medications Medications: Current Medications Acetaminophen (Tylenol 325mg Tab) 650 mg PO Q6 PRN PRN Reason: Fever >100.4 F Last Admin: 11/29/16 13:19 Dose: 650 mg Amiodarone HCl (Cordarone) 200 mg GT DAILY [facility] Last Admin: 12/19/16 11:21 Dose: 200 mg Amlodipine Besylate (Norvasc) 5 mg PO DAILY [facility] Aspirin (Aspirin Chewable) 81 mg GT DAILY [facility] Last Admin: 12/19/16 11:21 Dose: 81 mg Enoxaparin Sodium (Lovenox) 60 mg SC Q12 [facility] Last Admin: 12/19/16 21:10 Dose: 60 mg Famotidine (Pepcid) 20 mg PO DAILY [facility] Last Admin: 12/19/16 11:21 Dose: 20 mg Tigecycline 50 mg/ Sodium (Chloride) 100 mls @ 50 mls/hr IVPB Q12H [facility] Last Admin: 12/19/16 21:10 Dose: 50 mls/hr Mupirocin (Bactroban 2% Nasal) 0.5 gm FAN BID [facility] Last Admin: 12/19/16 17:53 Dose: 0.5 gm Rosuvastatin Calcium (Crestor) 5 mg GT HS [facility] Last Admin: 12/19/16 21:10 Dose: 5 mg Saccharomyces Boulardii (Florastor) 250 mg PO BID [facility] Last Admin: 12/19/16 17:53 Dose: 250 mg - Labs Labs: 12/19/16 08:04 12/19/16 08:04 PT 15.5 SECONDS (9.7-12.2) H 12/20/16 07:12 INR 1.3 12/20/16 07:12 APTT 41 SECONDS (21-34) H 12/17/16 06:27 - Constitutional Appears: No Acute Distress, Chronically Ill - Head Exam Head Exam: NORMAL INSPECTION, NORMOCEPHALIC - Eye Exam Eye Exam: EOMI, Normal appearance - ENT Exam ENT Exam: Mucous Membranes Moist - Respiratory Exam Respiratory Exam: Clear to Ausculation Bilateral, NORMAL BREATHING PATTERN. absent: Rales, Rhonchi, Wheezes - Cardiovascular Exam Cardiovascular Exam: REGULAR RHYTHM, +S1, +S2 - GI/Abdominal Exam GI & Abdominal Exam: Soft. absent: Distended, Tenderness - Extremities Exam Extremities Exam: Normal Inspection. 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 Atrial flutter Resolution s/p 50J synchronized/biphasic electric cardioversion overnight ( @ 23:39pm) Continue Amiodarone 200mg GT Daily Continue telemetry monitoring Continue to monitor on Tele Continue aspirin 81mg GT daily Continue crestor 5mg GT daily Cardiac Stable Hemodynamically Stable Troponin Negative x 1 (12/12/16: 0.0160) 12/14/16 EKG- Normal sinus rhythm (85bmp), normal intervals, physiologic axis, minimal voltage criteria for LVH 12/12/16 CT Chest- Negative for PE 12/12/16 16:45 EKG- Supraventricular tachycardia (151bpm), normal axis, normal intervals, LVH 10/21/16 Echo- 72% EF with normal systolic and diastolic function 10/21/16- EKG sinus tachy (120bpm), jackelin axis, LVH, St and T wave abnormality in lateral leads (consider ischemia), normal intervals 10/18/16- EKG- normal sinus rhythm, normal axis, normal intervals, LVH Case Discussed with Dr. Brock Status: Resolved Lashae Arnold, PGY 2
[2016-12-20] MEDS: Saccharomyces Boulardi 250 mg Cap PO SCH ×2 (10:32→19:00)
[2016-12-20] MEDS: Enoxaparin 60 mg Syringe SC SCH ×2 (10:32→21:35)
[2016-12-20] MEDS: Mupirocin 2% Ointment (NASAL) NAS SCH ×2 (10:33→17:26)
[2016-12-20 12:55] LABS: BASO # 0.1 K/uL (0.0-0.2); BASO % 0.7 % (0.0-2.0); EOS # 0.1 K/uL (0.0-0.7); EOS % 1.6 % (0.0-4.0); HEMATOCRIT 32.4 % (35.0-51.0); LYMPH # 2.6 K/uL (1.0-4.3); MEAN CELL VOLUME 82.7 fL (80.0-94.0); MEAN CORPUSCULAR HEMOGLOBIN 26.8 pg (27.0-31.0); MEAN CORPUSCULAR HGB CONC 32.4 g/dL (33.0-37.0); MEAN PLATELET VOLUME 9.2 fL (7.2-11.7); MONO # 0.7 K/uL (0.0-0.8); MONO % 9.3 % (0.0-10.0); NRBC % 0.1 % (0.0-2.0); RED CELL DISTRIBUTION WIDTH 15.9 % (11.5-14.5); WHITE BLOOD COUNT 7.2 K/uL (4.8-10.8)
[2016-12-20 13:08] LABS: CHLORIDE 98 mmol/L (98-107)
[2016-12-20 13:09] LABS: POTASSIUM 4.2 mmol/L (3.6-5.2); SODIUM 133 mmol/L (132-148)
[2016-12-20 13:11] LABS: ALB/GLOB RATIO 0.8 (1.0-2.1); AST/SGOT 27 U/L (17-59); BILIRUBIN,TOTAL 0.7 mg/dL (0.2-1.3); CARBON DIOXIDE 28 mmol/L (22-30); GFR AFRICAN-AMERICAN > 60; TOTAL PROTEIN 6.4 g/dL (6.3-8.3)
[2016-12-20 13:12] LABS: ALKALINE PHOSPHATASE 100 U/L (38-126); ALT/SGPT 50 U/L (21-72); BLOOD UREA NITROGEN 24 mg/dL (9-20); CALCIUM 8.1 mg/dl (8.6-10.4); GLUCOSE,RANDOM 73 mg/dL (75-110)
--- NOTE | 2016-12-20 13:28 | CP.PCM.PN ---
<Jh Minor - Last Filed: 12/20/16 13:39> Subjective - Date & Time of Evaluation Date of Evaluation: 12/20/16 Time of Evaluation: 13:25 - Subjective Subjective: Medicine progress note. Attending: Dr. Vidal Pt seen and examined at bedside. No acute distress. No events overnight. Pt has not been getting feeds or meds through PEG tube per nursing. We will continue with calorie count. Neurology has said pt can be transitioned to warfarin. Denies fevers, chills, chest pain, shortness of breath. Objective - Vital Signs/Intake and Output Vital Signs (last 24 hours): Temp Pulse Resp BP Pulse Ox 98.1 F 81 20 132/85 99 12/20/16 07:24 12/20/16 07:24 12/20/16 07:24 12/20/16 07:24 12/20/16 07:24 Intake and Output: 12/20/16 12/20/16 06:59 18:59 Intake Total 240 Output Total 400 Balance -160 - Medications Medications: Current Medications Acetaminophen (Tylenol 325mg Tab) 650 mg PO Q6 PRN PRN Reason: Fever >100.4 F Last Admin: 11/29/16 13:19 Dose: 650 mg Amiodarone HCl (Cordarone) 200 mg GT DAILY [facility] Last Admin: 12/20/16 10:33 Dose: 200 mg Amlodipine Besylate (Norvasc) 5 mg PO DAILY [facility] Last Admin: 12/20/16 10:33 Dose: 5 mg Aspirin (Aspirin Chewable) 81 mg GT DAILY [facility] Last Admin: 12/20/16 10:33 Dose: 81 mg Enoxaparin Sodium (Lovenox) 60 mg SC Q12 [facility] Last Admin: 12/20/16 10:32 Dose: 60 mg Famotidine (Pepcid) 20 mg PO DAILY [facility] Last Admin: 12/20/16 10:33 Dose: 20 mg Tigecycline 50 mg/ Sodium (Chloride) 100 mls @ 50 mls/hr IVPB Q12H [facility] Last Admin: 12/20/16 11:10 Dose: 50 mls/hr Mupirocin (Bactroban 2% Nasal) 0.5 gm FAN BID [facility] Last Admin: 12/20/16 10:33 Dose: 0.5 gm Rosuvastatin Calcium (Crestor) 5 mg GT HS [facility] Last Admin: 12/19/16 21:10 Dose: 5 mg Saccharomyces Boherbdii (Florastor) 250 mg PO BID [facility] Last Admin: 12/20/16 10:32 Dose: 250 mg - Labs Labs: 12/20/16 12:49 12/20/16 12:49 PT 15.5 SECONDS (9.7-12.2) H 12/20/16 07:12 INR 1.3 12/20/16 07:12 APTT 41 SECONDS (21-34) H 12/17/16 06:27 - Constitutional Appears: Non-toxic, No Acute Distress - Head Exam Head Exam: ATRAUMATIC, NORMAL INSPECTION, NORMOCEPHALIC - Eye Exam Eye Exam: EOMI - ENT Exam ENT Exam: Mucous Membranes Moist - Neck Exam Neck Exam: absent: Lymphadenopathy, Normal Inspection - Respiratory Exam Respiratory Exam: NORMAL BREATHING PATTERN. absent: Respiratory Distress - Cardiovascular Exam Cardiovascular Exam: REGULAR RHYTHM, +S1 - GI/Abdominal Exam GI & Abdominal Exam: Soft, Normal Bowel Sounds. absent: Tenderness - Extremities Exam Extremities Exam: Normal Inspection - Neurological Exam Neurological Exam: Alert, Awake - Psychiatric Exam Psychiatric exam: Normal Affect, Normal Mood - Skin Skin Exam: Dry, Intact, Normal Color, Warm Assessment and Plan - Assessment and Plan (Free Text) Assessment: (1) Intracranial hemorrhage 10/18 CT Head: Left basal ganglia acute hemorrhage, possibly hypertensive with associated intraventricular hemorrhage and mass effect upon the left lateral aspect of the 3rd ventricle with the tip shift of the 3rd ventricle towards the right side. No generalized midline shift. Air-fluid level in sphenoid sinus common nonspecific. Please correlate for concern regarding acute sinusitis. Mild involutional changes. 10/19 CT Head: little interval change in the known 2.0 x 2.7 acute hematoma in left thalamus with intra ventricular extension of hemorrhage. Interval mild worsening of obstructive hydrocephalus. 10/24 CT Head: little interval change in the size of left thalamic hemorrhage 2.4x2.9 cm with intraventricular extension of hemorrhage and mild obstructive hydrocephalus. 2 mm midline shift from left to right with no evidence of herniation. Near complete resolution of hemorrhage within 4th ventricle. 11/03/16 CT Head; Interval decrease in size and density left basal ganglia hematoma; well-circumscribed peripheral rim of low attentuation edema about hematoma; combination of brain edema and brain necrosis; intraventricular hemorrhage has diminished. Ventricles hae also decreased in size temporal horns and atria remain prominent. Persistent compression of the 3rd and left lateral ventricle 12/16/16 CT Head: no acute findings noted * Neurosurgery per initial consult-->patient's prognosis dismal at beginning of admission * Neurology (Dr. Simpson) on board-->per 10/26 note: patient has attained maximum response from neuro point of view from this admission; keep nutritional status optimized and avoid infections; treat with peg/trach; no antiplatelets for next 4-6 weeks (maintain MAP ~100) * On baby aspirin 81mg PO daily; discussed with neurology on 11/22/16 * Patient started on therapeutic Lovenox for DVT+, will follow-up INR * Pt is ok to start warfarin per neuro (2) Atrial Flutter * Cardiology consulted (Dr. Brock) on board; case discussed * elevated D-dimer-->Ct angio negative for PE * 12/12/16 tachycardia-->Adenosine given --> Atrial flutter--> did not improve with digoxin, cardizem, and amiodarone, requiring cardioversion, which converted * Thyroid studies negative * Amiodarone 200mg PO daily * has been in NSR (3) Hypertension * monitor vital signs * controlled * elevated yesterday afternoon-->restarted Norvasc 5mg PO daily (4) Deep vein thrombosis * per 12/12/16 Doppler: right peroneal vein DVT+ * Patient is currently on therapuetic lovenox * pt is ok to start warfarin per neuro Dr. Simpson * warfarin 5 mg PO tonight (5) Dyslipidemia -continue crestor 5 daily (6) Acute respiratory failure (resolved) * s/p tracheostomy 10/28/16 * Patient completed trach collar. * Weaning completed; off ventilator * Saturating well. * Monitor dressing change of trach site * Pulmonary (Dr. Bailey) consulted to assist with weaning protocol * Completed decannulation on 10/30/16; saturating well * Consulted speech-->patient not appropriate for speak-easy valve status post decannulation; encourage speaking * Discussed with ENT-->outpatient due to mild vocal cord dysfunction * Discussed with swallow-->patient has a strong cough, can be started on pleasure feedings and/or pureed diet to try to transition off peg * pt now on regular diet, tolerating well (6) CVA * Hemorrhagic stroke with associated hypotension and basal ganglia involvement on admission * hemoglobin a1c:5.7 * Cholesterol: 202, LDL:130 HDL:52 * Aspirin 81mg PO daily * Blood pressure control monitoring * continue Crestor 5mg PO qHS * s/p peg placement (7) Sepsis (resolved) Per 11/05; Fever 103F and associated leukocytosis: 21.8; infection: pneumonia ( which was treated with Meropenem during the course of hospitalization) Infectious disease on board (Dr. Chavez) 10/21 Sputum-Klebsiella (sensitive to Maxipime) 10/25 Serratia and Enterobacter (sensitive to Maxipime) 10/31 Sputum: normal 11/06: Enterobacter which is sensitive Meropenem (switch from Maxipime) 11/06 Urine culture: yeast 11/09 Urine culture: yeast 11/09 Blood culture: no growth for 5 days X2 11/21 Urine culture: yeast 11/26: Urine culture: Pseudomonas 12/08: Urine culture: VRE UTI (patient not septic at time of current UTI) -repeat urine culture pending -continue tylenol PRN for fevers (8) Urinary Tract Infection (current) * 12/08/16 VRE UTI * Multiple UTI infections * Yeast urine treated with Diflucan during hospitalization * Pseudomonas treated with Cipro during hospitalization * VRE UTI currently treated with Tigecycline and contact isolation * [place] condom catheter changed recently * Infectious disease (Dr. Chavez) on board * Tigecycline 50mg IV Q 12hours (active since 12/11/16) * Florastor 250mg PO bid * Monitor LFTS/renal function * pending repeat urine culture to possible d/c tigecycline (7) Hypernatremia -resolved (8) Prophylactic care * s/p peg placement * Weaned off vent; saturating well s/p decanulation * Continue with aggressive PT/OT-->latest PT noted recommending for subacute/ LTAC * PT/OT * Monitor calorie count * Patient is on therapeutic lovenox for DVT+ first time, follow-up INR * pepcid 20 PO daily Disposition * Patient is currently on IV abx for VRE UTI at this time. Pending repeat urine culture. 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 Patient currently wears mittens to prevent him from pulling on his tubes and is unsafe for home. Will need to clarify with family regarding the type of care patient will need with both patient's son and daughters * Discussed with Dr. Vidal <Apple Vidal V - Last Filed: 12/20/16 22:15> Objective - Vital Signs/Intake and Output Vital Signs (last 24 hours): Temp Pulse Resp BP Pulse Ox 98.4 F 80 20 136/83 100 12/20/16 15:00 12/20/16 16:00 12/20/16 15:00 12/20/16 15:00 12/20/16 15:00 - Medications Medications: Current Medications Acetaminophen (Tylenol 325mg Tab) 650 mg PO Q6 PRN PRN Reason: Fever >100.4 F Last Admin: 11/29/16 13:19 Dose: 650 mg Amiodarone HCl (Cordarone) 200 mg GT DAILY [facility] Last Admin: 12/20/16 10:33 Dose: 200 mg Amlodipine Besylate (Norvasc) 5 mg PO DAILY [facility] Last Admin: 12/20/16 10:33 Dose: 5 mg Aspirin (Aspirin Chewable) 81 mg GT DAILY [facility] Last Admin: 12/20/16 10:33 Dose: 81 mg Enoxaparin Sodium (Lovenox) 60 mg SC Q12 [facility] Last Admin: 12/20/16 21:35 Dose: 60 mg Famotidine (Pepcid) 20 mg PO DAILY [facility] Last Admin: 12/20/16 10:33 Dose: 20 mg Tigecycline 50 mg/ Sodium (Chloride) 100 mls @ 50 mls/hr IVPB Q12H [facility] Last Admin: 12/20/16 19:43 Dose: 50 mls/hr Mupirocin (Bactroban 2% Nasal) 0.5 gm FAN BID [facility] Last Admin: 12/20/16 17:26 Dose: 0.5 gm Rosuvastatin Calcium (Crestor) 5 mg GT HS [facility] Last Admin: 12/20/16 21:35 Dose: 5 mg Saccharomyces Boulardii (Florastor) 250 mg PO BID [facility] Last Admin: 12/20/16 19:00 Dose: 250 mg - Labs Labs: 12/20/16 12:49 12/20/16 12:49 PT 15.5 SECONDS (9.7-12.2) H 12/20/16 07:12 INR 1.3 12/20/16 07:12 APTT 41 SECONDS (21-34) H 12/17/16 06:27 Attending/Attestation - Attestation I have personally seen and examined this patient.: Yes I have fully participated in the care of the patient.: Yes I have reviewed all pertinent clinical information, including history, physical exam and plan: Yes Notes (Text): Patient seen, examined and case discussed with day-time resident. Patient see at bedside. Patient denies acute complaints. Discussed and confirmed with nursing, patient is eating 100% of his meals for the past several days. Patient is not receiving feeds nor free fluid flushes. Ordered for calorie count. Will need to discuss with GI when it is appropriate for PEG to be removed Patient ordered for calorie counts. Patient is currently on Tigecycline IV for VRE UTI, contact isolation, awaiting result of repeat urine culture collected yesterday. Discussed with neurology, patient may start Coumadin in light of history. Patient started on Coumadin 5mg PO tonight, monitor INR while transitioning on therapuetic Lovenox for 1st time DVT. Assessment/Plan (1) Intracranial hemorrhage Assessment & Plan: 10/18 CT Head: Left basal ganglia acute hemorrhage, possibly hypertensive with associated intraventricular hemorrhage and mass effect upon the left lateral aspect of the 3rd ventricle with the tip shift of the 3rd ventricle towards the right side. No generalized midline shift. Air-fluid level in sphenoid sinus common nonspecific. Please correlate for concern regarding acute sinusitis. Mild involutional changes. 10/19 CT Head: little interval change in the known 2.0 x 2.7 acute hematoma in left thalamus with intra ventricular extension of hemorrhage. Interval mild worsening of obstructive hydrocephalus. 10/24 CT Head: little interval change in the size of left thalamic hemorrhage 2.4x2.9 cm with intraventricular extension of hemorrhage and mild obstructive hydrocephalus. 2 mm midline shift from left to right with no evidence of herniation. Near complete resolution of hemorrhage within 4th ventricle. 11/03/16 CT Head; Interval decrease in size and density left basal ganglia hematoma; well-circumscribed peripheral rim of low attentuation edema about hematoma; combination of brain edema and brain necrosis; intraventricular hemorrhage has diminished. Ventricles hae also decreased in size temporal horns and atria remain prominent. Persistent compression of the 3rd and left lateral ventricle 12/16/16 CT Head: no acute findings noted * Neurosurgery per initial consult-->patient's prognosis dismal at beginning of admission * Neurology (Dr. Simpson) on board-->per 10/26 note: patient has attained maximum response from neuro point of view from this admission; keep nutritional status and avoid infectious; treat with peg/trach; no antiplatelets for next 4-6 weeks (; maintain MAP ~100) * On baby aspirin 81mg PO daily; discussed with neurology with 11/22/16 * Patient started on therapeutic Lovenox for DVT+, started on Coumadin 5mg PO tonight, f/u INR tomorrow Status: Chronic (2) Atrial Flutter Assessment & Plan: * Cardiology consulted (Dr. Brock) on board; case discussed * elevated D-dimer-->Ct angio negative for PE * 12/12/16 tachycardia-->Adenosine given --> Atrial flutter--> did not improve with digoxin, cardizem, and amiodarone, requiring cardioversion, which converted * Cardiology consulted (Dr. Brock) on board; case discussed * Thyroid studies negative * Amiodarone 200mg PO daily (3) Hypertension Assessment & Plan: * monitor vital signs * controlled * restarted Norvasc 5mg PO daily (4) Deep vein thrombosis * per 12/12/16 Doppler: right peroneal vein DVT+ * Patient is currently on therapuetic lovenox * Started on Coumadin 5mg PO tonight * Ordered for INR in AM (5) Acute respiratory failure (resolved) Assessment & Plan: * s/p tracheostomy 10/28/16 * Patient completed trach collar. * Weaning completed; off ventilator * Saturating well. * Monitor dressing change of trach site * Pulmonary (Dr. Bailey) consulted to assist with weaning protocol * Mucomyst PRN to help thin out secretions * Duonebs PRN shortness of breathe * monitor and may need suctioning PRN * Completed decannulation on 10/30/16; saturating well * Consulted speech-->patient not appropriate for speak-easy valve status post decannulation; encourage speaking * Discussed with ENT-->outpatient due to mild vocal cord dysfunction * Discussed with swallow-->patient has a strong cough, can be started on pleasure feedings and/or pureed diet to try to transition off peg Status: resolved (6) CVA (cerebral vascular accident) Assessment & Plan: * Hemorrhagic stroke with associated hypotension and basal ganglia involvement on admission * [id number]:5.7 * Cholestrol: 202, TG: LDL:130 HDL:52 * Aspirin 81mg PO daily * Blood pressure control monitoring * Start on Crestor 5mg POqHS * Patient is tolerating PO feeds and medications (7) Sepsis (resolved) Assessment & Plan: Per 11/05; Fever 103F and associated leukocytosis: 21.8; infection: pneumonia ( which was treated with Meropenem during the course of hospitalization) Infectious disease on board (Dr. Chavez) 10/21 Sputum-Klebsiella (sensitive to Maxipime) 10/25 Serratia and Enterobacter (sensitive to Maxipime) 10/31 Sputum: normal 11/06: Enterobacter which is sensitive Meropenem (switch from Maxipime) 11/06 Urine culture: yeast 11/09 Urine culture: yeast 11/09 Blood culture: no growth for 5 days X2 11/21 Urine culture: yeast 11/26: Urine culture: Pseudomonas 12/08: Urine culture: VRE UTI (patient not septic at time of current UTI)--> pending repeat urine culture to determine to stop IV abx and to stop contact isolation (8) Urinary Tract Infection (current) * 12/08/16 VRE UTI * Multiple UTI infections * Yeast urine treated with Diflucan during hospitalization * Pseudomonas treated with Cipro during hospitalization * VRE UTI currently treated with Tigecycline and contact isolation * [place] condom catheter changed recently * Infectious disease (Dr. Chavez) on board * Tigecycline 50mg IV Q 12hours (active since 12/11/16) * Florastor 250mg PO bid * Monitor LFTS * pending repeat urine culture to possible d/c tigecycline (7) Hypernatremia * normalized * Patient is not receiving free fluid flushes (8) Prophylactic care * s/p peg placement * Weaned off vent; saturating well s/p decanulation * Continue with aggressive PT/OT-->latest PT (12/19):Pt was motivated during PT. Pt was able to take steps with the rolling walker inspite of unsteadiness and postural sway. Placed back to bed with the head of the bed elevated to 60 degrees. Pt was instructed to call nursing when going out of bed for safety. ( acute rehab vs [facility]) * Patient is tolerating PO feeds and medication per nursing * Patient is on therapeutic lovenox for DVT+ first time, follow-up INR Disposition * Patient is currently on IV abx for VRE UTI at this time. Pending repeat urine culture to stop IV abx and stop contact isolation * Patient is tolerating PO feeding and PO medications, discussed with nursing staff, will need to discuss with GI, when appropriate to remove peg tube * Will need anticoagulation for for DVT+, started on Coumadin, after consulting with neurology * Patient is doing remarkable. Patient will need continue aggressive PT/OT, started on rolling walker per PT.
--- NOTE | 2016-12-20 22:20 | CP.PCM.PN ---
Subjective - Date & Time of Evaluation Date of Evaluation: 12/20/16 Time of Evaluation: 03:00 - Subjective Subjective: dictated Objective - Vital Signs/Intake and Output Vital Signs (last 24 hours): Temp Pulse Resp BP Pulse Ox 98.4 F 80 20 136/83 100 12/20/16 15:00 12/20/16 16:00 12/20/16 15:00 12/20/16 15:00 12/20/16 15:00 - Medications Medications: Current Medications Acetaminophen (Tylenol 325mg Tab) 650 mg PO Q6 PRN PRN Reason: Fever >100.4 F Last Admin: 11/29/16 13:19 Dose: 650 mg Amiodarone HCl (Cordarone) 200 mg PO DAILY [facility] Amlodipine Besylate (Norvasc) 5 mg PO DAILY [facility] Last Admin: 12/20/16 10:33 Dose: 5 mg Aspirin (Aspirin Chewable) 81 mg PO DAILY [facility] Enoxaparin Sodium (Lovenox) 60 mg SC Q12 [facility] Last Admin: 12/20/16 21:35 Dose: 60 mg Famotidine (Pepcid) 20 mg PO DAILY [facility] Last Admin: 12/20/16 10:33 Dose: 20 mg Tigecycline 50 mg/ Sodium (Chloride) 100 mls @ 50 mls/hr IVPB Q12H [facility] Last Admin: 12/20/16 19:43 Dose: 50 mls/hr Mupirocin (Bactroban 2% Nasal) 0.5 gm FAN BID [facility] Last Admin: 12/20/16 17:26 Dose: 0.5 gm Rosuvastatin Calcium (Crestor) 5 mg PO [facility] Saccharomyces Boulardii (Florastor) 250 mg PO BID [facility] Last Admin: 12/20/16 19:00 Dose: 250 mg - Labs Labs: 12/20/16 12:49 12/20/16 12:49 PT 15.5 SECONDS (9.7-12.2) H 12/20/16 07:12 INR 1.3 12/20/16 07:12 APTT 41 SECONDS (21-34) H 12/17/16 06:27
[2016-12-21 06:37] LABS: BASO # 0.1 K/uL (0.0-0.2); BASO % 0.9 % (0.0-2.0); EOS # 0.2 K/uL (0.0-0.7); EOS % 2.5 % (0.0-4.0); HEMATOCRIT 32.7 % (35.0-51.0); LYMPH # 2.2 K/uL (1.0-4.3); LYMPH % 34.5 % (20.0-40.0); MEAN CELL VOLUME 82.4 fL (80.0-94.0); MEAN CORPUSCULAR HEMOGLOBIN 26.8 pg (27.0-31.0); MEAN CORPUSCULAR HGB CONC 32.5 g/dL (33.0-37.0); MEAN PLATELET VOLUME 9.5 fL (7.2-11.7); MONO # 0.6 K/uL (0.0-0.8); MONO % 9.7 % (0.0-10.0); NRBC % 0.1 % (0.0-2.0); RED CELL DISTRIBUTION WIDTH 15.9 % (11.5-14.5); WHITE BLOOD COUNT 6.4 K/uL (4.8-10.8)
[2016-12-21 06:43] LABS: INR 1.3
[2016-12-21 07:05] LABS: CHLORIDE 99 mmol/L (98-107); SODIUM 131 mmol/L (132-148)
[2016-12-21 07:06] LABS: POTASSIUM 4.2 mmol/L (3.6-5.2)
[2016-12-21 07:08] LABS: ALB/GLOB RATIO 0.7 (1.0-2.1); ALKALINE PHOSPHATASE 104 U/L (38-126); AST/SGOT 18 U/L (17-59); BILIRUBIN,TOTAL 0.4 mg/dL (0.2-1.3); BLOOD UREA NITROGEN 24 mg/dL (9-20); CARBON DIOXIDE 26 mmol/L (22-30); GFR AFRICAN-AMERICAN > 60; GLUCOSE,RANDOM 76 mg/dL (75-110); PHOSPHOROUS 4.5 mg/dL (2.5-4.5); TOTAL PROTEIN 5.7 g/dL (6.3-8.3)
[2016-12-21 07:09] LABS: ALT/SGPT 50 U/L (21-72); CALCIUM 8.1 mg/dl (8.6-10.4); MAGNESIUM 1.8 mg/dL (1.6-2.3)
[2016-12-21] MEDS: Mupirocin 2% Ointment (NASAL) NAS SCH ×2 (09:00→21:37)
[2016-12-21] MEDS: Saccharomyces Boulardi 250 mg Cap PO SCH ×2 (09:00→19:07)
[2016-12-21] MEDS: Enoxaparin 60 mg Syringe SC SCH ×2 (09:00→21:37)
--- NOTE | 2016-12-21 09:10 | PN ---
DATE: 12/20/2016 PHYSICAL EXAMINATION: VITAL SIGNS: The patient afebrile. T-max is 98.4, pulse 85, blood pressure 136/ 83, respirations are 20. GENERAL: His family member was feeding him and he looked very alert, awake. HEENT: Head is atraumatic, normocephalic. NECK: Supple. LUNGS: Clear. No crackles or rales present. HEART: S1, S2 regular. ABDOMEN: Soft, nontender. He had a condom catheter. EXTREMITIES: Have no edema, clubbing, or cyanosis. LABORATORY DATA: His urine culture had grown VRE and he was placed on Tygacil and I think part of this may be due to _lack of meatal___ care and I would suggest to discontinue the condom catheter and leave him with diaper if needed and needs some __meatal__ care. He is on Tygacil for VRE and it was started on _ ___. After tomorrow's dose it can be discontinued. I also asked for a repeat culture, but I guess with the condom catheter they have not done after 12/13. I am still waiting for to 12/13 culture report then. Lisa Chavez MD cc: [id number] TT: 12/21/2016 00:49:48 Confirmation # [id number] Dictation # [id number]
--- NOTE | 2016-12-21 10:37 | CP.PCM.PN ---
<Selam Connell - Last Filed: 12/21/16 10:35> Subjective - Date & Time of Evaluation Date of Evaluation: 12/21/16 Time of Evaluation: 10:35 - Subjective Subjective: Cardiology. PGY-[address] Brock Pt laying comfortable in bed. Denies palpitation, dizziness, CP, SOB. Objective - Vital Signs/Intake and Output Vital Signs (last 24 hours): Temp Pulse Resp BP Pulse Ox 97.8 F 73 20 157/72 H 100 12/21/16 07:20 12/21/16 10:03 12/21/16 07:20 12/21/16 07:20 12/21/16 07:20 Intake and Output: 12/21/16 12/21/16 06:59 18:59 Intake Total 100 Output Total 800 Balance -700 - Medications Medications: Current Medications Acetaminophen (Tylenol 325mg Tab) 650 mg PO Q6 PRN PRN Reason: Fever >100.4 F Last Admin: 11/29/16 13:19 Dose: 650 mg Amiodarone HCl (Cordarone) 200 mg PO DAILY [facility] Amlodipine Besylate (Norvasc) 10 mg PO DAILY [facility] Aspirin (Aspirin Chewable) 81 mg PO DAILY [facility] Last Admin: 12/21/16 09:00 Dose: 81 mg Enoxaparin Sodium (Lovenox) 60 mg SC Q12 [facility] Last Admin: 12/21/16 09:00 Dose: 60 mg Famotidine (Pepcid) 20 mg PO DAILY [facility] Last Admin: 12/21/16 08:59 Dose: 20 mg Tigecycline 50 mg/ Sodium (Chloride) 100 mls @ 50 mls/hr IVPB Q12H [facility] Last Admin: 12/21/16 08:54 Dose: 50 mls/hr Mupirocin (Bactroban 2% Nasal) 0.5 gm FAN BID [facility] Last Admin: 12/21/16 09:00 Dose: 0.5 gm Rosuvastatin Calcium (Crestor) 5 mg PO HS [facility] Saccharomyces Boulardii (Florastor) 250 mg PO BID [facility] Last Admin: 12/21/16 09:00 Dose: 250 mg - Labs Labs: 12/21/16 06:25 12/21/16 06:25 PT 14.6 SECONDS (9.7-12.2) H 12/21/16 06:25 INR 1.3 12/21/16 06:25 APTT 41 SECONDS (21-34) H 12/17/16 06:27 - Constitutional Appears: Well, No Acute Distress - Head Exam Head Exam: ATRAUMATIC, NORMAL INSPECTION, NORMOCEPHALIC - Eye Exam Eye Exam: EOMI, Normal appearance, PERRL Pupil Exam: NORMAL ACCOMODATION, PERRL - Respiratory Exam Respiratory Exam: Clear to Ausculation Bilateral, NORMAL BREATHING PATTERN - Cardiovascular Exam Cardiovascular Exam: REGULAR RHYTHM, +S1, +S2. absent: Murmur - GI/Abdominal Exam GI & Abdominal Exam: Soft, Normal Bowel Sounds. absent: Tenderness - Neurological Exam Neurological Exam: Alert, Awake, Oriented x3 - Psychiatric Exam Psychiatric exam: Normal Affect, Normal Mood - Skin Skin Exam: Dry, Normal Color, Warm Assessment and Plan - Assessment and Plan (Free Text) Plan: 56 M with a PMH for HTN and intracranial bleed s/p tracheostomy (10/18/16), downgraded from ICU for new onset tachycardia -- supraventricular tachycardia vs atrial flutter, non responsive to IV cardizem, amiodarone, and IV digioxin. Cardioverted at 50J (synchronized and biphasic, 12/12/16), successfully converted to NSR. Started amiodarone 200mg GT daily last week. Downgraded from ICU. SVT AVNRT vs A flutter - Amiodarone 200 - Continue tele CV risk modification - ASA, crestor DVT-R peroneal thromosis - CTA negative for PE - Lovenox 60 SC q12 Hx ICH - repeat CT head negative for bleed 12/16 VRE UTI - managed by primary team Troponin Negative x 1 (12/12/16: 0.0160) 12/14/16 EKG- Normal sinus rhythm (85bmp), normal intervals, physiologic axis, minimal voltage criteria for LVH 12/12/16 CT Chest- Negative for PE 12/12/16 16:45 EKG- Supraventricular tachycardia (151bpm), normal axis, normal intervals, LVH 10/21/16 Echo- 72% EF with normal systolic and diastolic function 10/21/16- EKG sinus tachy (120bpm), jackelin axis, LVH, St and T wave abnormality in lateral leads (consider ischemia), normal intervals 10/18/16- EKG- normal sinus rhythm, normal axis, normal intervals, LVH S/D/R/w Dr. Brock <Alejandro Brock - Last Filed: 01/19/17 13:19> Objective - Vital Signs/Intake and Output Vital Signs (last 24 hours): Temp Pulse Resp BP Pulse Ox 98.7 F 89 20 108/66 100 01/07/17 15:12 01/07/17 15:12 01/07/17 15:12 01/07/17 15:12 01/07/17 15:12 - Labs Labs: 01/06/17 07:26 01/06/17 07:26 PT 27.3 SECONDS (9.7-12.2) H 01/07/17 07:13 INR 2.4 01/07/17 07:13 APTT 55 SECONDS (21-34) H D 01/05/17 06:14 Attending/Attestation - Attestation I have personally seen and examined this patient.: Yes I have fully participated in the care of the patient.: Yes I have reviewed all pertinent clinical information, including history, physical exam and plan: Yes Notes (Text): 01/19/17 13:18 successfully cardioverted to NSR amiodorone maintainance
--- NOTE | 2016-12-21 16:31 | CP.PCM.PN ---
<Jh Minor - Last Filed: 12/21/16 16:39> Subjective - Date & Time of Evaluation Date of Evaluation: 12/21/16 Time of Evaluation: 16:30 - Subjective Subjective: Medicine progress note. Attending: Dr. Vidal Pt seen and examined at bedside. No acute distress. No events overnight. Denies fevers, chills, vomiting, diarrhea, syncope, cp, sob. Will stop condom catheter. Objective - Vital Signs/Intake and Output Vital Signs (last 24 hours): Temp Pulse Resp BP Pulse Ox 98.2 F 89 20 121/72 100 12/21/16 15:44 12/21/16 15:44 12/21/16 15:44 12/21/16 15:44 12/21/16 15:44 Intake and Output: 12/21/16 12/21/16 06:59 18:59 Intake Total 100 Output Total 800 Balance -700 - Medications Medications: Current Medications Acetaminophen (Tylenol 325mg Tab) 650 mg PO Q6 PRN PRN Reason: Fever >100.4 F Last Admin: 11/29/16 13:19 Dose: 650 mg Amiodarone HCl (Cordarone) 200 mg PO DAILY [facility] Amlodipine Besylate (Norvasc) 10 mg PO DAILY [facility] Aspirin (Aspirin Chewable) 81 mg PO DAILY [facility] Last Admin: 12/21/16 09:00 Dose: 81 mg Enoxaparin Sodium (Lovenox) 60 mg SC Q12 [facility] Last Admin: 12/21/16 09:00 Dose: 60 mg Famotidine (Pepcid) 20 mg PO DAILY [facility] Last Admin: 12/21/16 08:59 Dose: 20 mg Tigecycline 50 mg/ Sodium (Chloride) 100 mls @ 50 mls/hr IVPB Q12H [facility] Last Admin: 12/21/16 08:54 Dose: 50 mls/hr Mupirocin (Bactroban 2% Nasal) 0.5 gm FAN BID [facility] Last Admin: 12/21/16 09:00 Dose: 0.5 gm Rosuvastatin Calcium (Crestor) 5 mg PO HS [facility] Saccharomyces Boulardii (Florastor) 250 mg PO BID [facility] Last Admin: 12/21/16 09:00 Dose: 250 mg Warfarin Sodium (Coumadin) 5 mg PO 1800 [facility] Stop: 12/21/16 18:01 - Labs Labs: 12/21/16 06:25 12/21/16 06:25 PT 14.6 SECONDS (9.7-12.2) H 12/21/16 06:25 INR 1.3 12/21/16 06:25 APTT 41 SECONDS (21-34) H 12/17/16 06:27 - Constitutional Appears: Non-toxic, No Acute Distress - Head Exam Head Exam: ATRAUMATIC, NORMAL INSPECTION, NORMOCEPHALIC - Eye Exam Eye Exam: EOMI - ENT Exam ENT Exam: Mucous Membranes Moist - Neck Exam Neck Exam: Full ROM, Normal Inspection. absent: Lymphadenopathy - Respiratory Exam Respiratory Exam: Clear to Ausculation Bilateral, NORMAL BREATHING PATTERN. absent: Respiratory Distress - Cardiovascular Exam Cardiovascular Exam: +S1, +S2 - GI/Abdominal Exam GI & Abdominal Exam: Soft, Normal Bowel Sounds. absent: Tenderness - Extremities Exam Extremities Exam: Full ROM, Normal Inspection - Neurological Exam Neurological Exam: Alert, Awake - Psychiatric Exam Psychiatric exam: Normal Affect, Normal Mood - Skin Skin Exam: Dry, Intact, Normal Color, Warm Assessment and Plan - Assessment and Plan (Free Text) Assessment: (1) Intracranial hemorrhage 10/18 CT Head: Left basal ganglia acute hemorrhage, possibly hypertensive with associated intraventricular hemorrhage and mass effect upon the left lateral aspect of the 3rd ventricle with the tip shift of the 3rd ventricle towards the right side. No generalized midline shift. Air-fluid level in sphenoid sinus common nonspecific. Please correlate for concern regarding acute sinusitis. Mild involutional changes. 10/19 CT Head: little interval change in the known 2.0 x 2.7 acute hematoma in left thalamus with intra ventricular extension of hemorrhage. Interval mild worsening of obstructive hydrocephalus. 10/24 CT Head: little interval change in the size of left thalamic hemorrhage 2.4x2.9 cm with intraventricular extension of hemorrhage and mild obstructive hydrocephalus. 2 mm midline shift from left to right with no evidence of herniation. Near complete resolution of hemorrhage within 4th ventricle. 11/03/16 CT Head; Interval decrease in size and density left basal ganglia hematoma; well-circumscribed peripheral rim of low attentuation edema about hematoma; combination of brain edema and brain necrosis; intraventricular hemorrhage has diminished. Ventricles hae also decreased in size temporal horns and atria remain prominent. Persistent compression of the 3rd and left lateral ventricle 12/16/16 CT Head: no acute findings noted * Neurosurgery per initial consult-->patient's prognosis dismal at beginning of admission * Neurology (Dr. Simpson) on board-->per 10/26 note: patient has attained maximum response from neuro point of view from this admission; keep nutritional status optimized and avoid infections; treat with peg/trach; no antiplatelets for next 4-6 weeks (maintain MAP ~100) * On baby aspirin 81mg PO daily; discussed with neurology on 11/22/16 * Patient started on therapeutic Lovenox for DVT+, will follow-up INR * Pt is ok to start warfarin per neuro * will resume warfarin 5 mg tonight (2) Atrial Flutter * Cardiology consulted (Dr. Brock) on board; case discussed * elevated D-dimer-->Ct angio negative for PE * 12/12/16 tachycardia-->Adenosine given --> Atrial flutter--> did not improve with digoxin, cardizem, and amiodarone, requiring cardioversion, which converted * Thyroid studies negative * Amiodarone 200mg PO daily * has been in NSR * we will renew tele (3) Hypertension * monitor vital signs * controlled * elevated yesterday afternoon-->restarted Norvasc 5mg PO daily (4) Deep vein thrombosis * per 12/12/16 Doppler: right peroneal vein DVT+ * Patient is currently on therapuetic lovenox * pt is ok to start warfarin per neuro Dr. Simpson * warfarin 5 mg PO tonight (5) Dyslipidemia -continue crestor 5 daily (6) Acute respiratory failure (resolved) * s/p tracheostomy 10/28/16 * Patient completed trach collar. * Weaning completed; off ventilator * Saturating well. * Monitor dressing change of trach site * Pulmonary (Dr. Bailey) consulted to assist with weaning protocol * Completed decannulation on 10/30/16; saturating well * Consulted speech-->patient not appropriate for speak-easy valve status post decannulation; encourage speaking * Discussed with ENT-->outpatient due to mild vocal cord dysfunction * Discussed with swallow-->patient has a strong cough, can be started on pleasure feedings and/or pureed diet to try to transition off peg * pt now on regular diet, tolerating well (6) CVA * Hemorrhagic stroke with associated hypotension and basal ganglia involvement on admission * hemoglobin a1c:5.7 * Cholesterol: 202, LDL:130 HDL:52 * Aspirin 81mg PO daily * Blood pressure control monitoring * continue Crestor 5mg PO qHS * s/p peg placement (7) Sepsis (resolved) Per 11/05; Fever 103F and associated leukocytosis: 21.8; infection: pneumonia ( which was treated with Meropenem during the course of hospitalization) Infectious disease on board (Dr. Chavez) 10/21 Sputum-Klebsiella (sensitive to Maxipime) 10/25 Serratia and Enterobacter (sensitive to Maxipime) 10/31 Sputum: normal 11/06: Enterobacter which is sensitive Meropenem (switch from Maxipime) 11/06 Urine culture: yeast 11/09 Urine culture: yeast 11/09 Blood culture: no growth for 5 days X2 11/21 Urine culture: yeast 11/26: Urine culture: Pseudomonas 12/08: Urine culture: VRE UTI (patient not septic at time of current UTI) -repeat urine culture shows contamination -continue tylenol PRN for fevers (8) Urinary Tract Infection (current) * 12/08/16 VRE UTI * Multiple UTI infections * Yeast urine treated with Diflucan during hospitalization * Pseudomonas treated with Cipro during hospitalization * VRE UTI currently treated with Tigecycline and contact isolation * [place] condom catheter changed recently * Infectious disease (Dr. Chavez) on board * Tigecycline 50mg IV Q 12hours (active since 12/11/16) * Florastor 250mg PO bid * Monitor LFTS/renal function * dumas has been discontinued * pending repeat urine culture to possible d/c tigecycline * will follow up about dc contact precautions (7) Hypernatremia -resolved (8) Prophylactic care * s/p peg placement * Weaned off vent; saturating well s/p decanulation * Continue with aggressive PT/OT-->latest PT noted recommending for subacute/ LTAC * PT/OT * Monitor calorie count * Patient is on therapeutic lovenox for DVT+ first time, follow-up INR * pepcid 20 PO daily Disposition * Patient is currently on IV abx for VRE UTI at this time. Pending repeat urine culture. * Ordered for calorie count * Will need anticoagulation for for DVT+ * Pending insurance for [facility] facility for rehabilitation and peg feedings, will need constant monitoring. Patient currently wears mittens to prevent him from pulling on his tubes and is unsafe for home. Will need to clarify with family regarding the type of care patient will need with both patient's son and daughters * Discussed with Dr. Vidal <MarcyApple V - Last Filed: 12/22/16 09:50> Objective - Vital Signs/Intake and Output Vital Signs (last 24 hours): Temp Pulse Resp BP Pulse Ox 98.6 F 84 20 138/86 100 12/22/16 07:30 12/22/16 07:30 12/22/16 07:30 12/22/16 07:30 12/22/16 07:30 Intake and Output: 12/22/16 12/22/16 06:59 18:59 Intake Total 550 Output Total 350 Balance 200 - Medications Medications: Current Medications Acetaminophen (Tylenol 325mg Tab) 650 mg PO Q6 PRN PRN Reason: Fever >100.4 F Last Admin: 11/29/16 13:19 Dose: 650 mg Amiodarone HCl (Cordarone) 200 mg PO DAILY [facility] Amlodipine Besylate (Norvasc) 10 mg PO DAILY [facility] Aspirin (Aspirin Chewable) 81 mg PO DAILY [facility] Last Admin: 12/21/16 09:00 Dose: 81 mg Enoxaparin Sodium (Lovenox) 60 mg SC Q12 [facility] Last Admin: 12/21/16 21:37 Dose: 60 mg Famotidine (Pepcid) 20 mg PO DAILY [facility] Last Admin: 12/21/16 08:59 Dose: 20 mg Mupirocin (Bactroban 2% Nasal) 0.5 gm FAN BID [facility] Last Admin: 12/21/16 21:37 Dose: 0.5 gm Rosuvastatin Calcium (Crestor) 5 mg PO [facility] Saccharomyces Boulardii (Florastor) 250 mg PO BID [facility] Last Admin: 12/21/16 19:07 Dose: 250 mg - Labs Labs: 12/22/16 08:09 12/22/16 08:09 PT 14.5 SECONDS (9.7-12.2) H 12/22/16 08:09 INR 1.3 12/22/16 08:09 APTT 43 SECONDS (21-34) H 12/22/16 08:09 Attending/Attestation - Attestation I have personally seen and examined this patient.: Yes I have fully participated in the care of the patient.: Yes I have reviewed all pertinent clinical information, including history, physical exam and plan: Yes Notes (Text): This is late computer entry for 12/21/16. Patient seen, examined and case discussed with day-time resident. Patient see at bedside. Patient denies acute complaints. Discussed and confirmed with nursing, patient is eating 100% of his meals for the past several days. Per infectious disease, patient recommended to d/c condom catheter, and possible diaper, discussed with nursing, diaper is not possible. Patient reports urge, and is able to use urinal at bedside. Patient collected for urine culture again, because prior was contaminated. Will need to discuss with GI regarding when peg should be removed Patient to finish dose Tigecycline IV for VRE UTI per infectious disease. Patient is being bridged from therapuetic Lovenox to Coumadin. Patient given Coumadin 5mg PO tonight. Blood pressure medication increased to Norvasc 10mg PO daily Assessment/Plan (1) Intracranial hemorrhage Assessment & Plan: 10/18 CT Head: Left basal ganglia acute hemorrhage, possibly hypertensive with associated intraventricular hemorrhage and mass effect upon the left lateral aspect of the 3rd ventricle with the tip shift of the 3rd ventricle towards the right side. No generalized midline shift. Air-fluid level in sphenoid sinus common nonspecific. Please correlate for concern regarding acute sinusitis. Mild involutional changes. 10/19 CT Head: little interval change in the known 2.0 x 2.7 acute hematoma in left thalamus with intra ventricular extension of hemorrhage. Interval mild worsening of obstructive hydrocephalus. 10/24 CT Head: little interval change in the size of left thalamic hemorrhage 2.4x2.9 cm with intraventricular extension of hemorrhage and mild obstructive hydrocephalus. 2 mm midline shift from left to right with no evidence of herniation. Near complete resolution of hemorrhage within 4th ventricle. 11/03/16 CT Head; Interval decrease in size and density left basal ganglia hematoma; well-circumscribed peripheral rim of low attentuation edema about hematoma; combination of brain edema and brain necrosis; intraventricular hemorrhage has diminished. Ventricles hae also decreased in size temporal horns and atria remain prominent. Persistent compression of the 3rd and left lateral ventricle 12/16/16 CT Head: no acute findings noted * Neurosurgery per initial consult-->patient's prognosis dismal at beginning of admission * Neurology (Dr. Simpson) on board-->per 10/26 note: patient has attained maximum response from neuro point of view from this admission; keep nutritional status and avoid infectious; treat with peg/trach; no antiplatelets for next 4-6 weeks (; maintain MAP ~100) * On baby aspirin 81mg PO daily; discussed with neurology with 11/22/16 * Patient started on therapeutic Lovenox for DVT+, ordered for Coumadin 5mg PO tonight, f/u INR tomorrow Status: Chronic (2) Atrial Flutter Assessment & Plan: * Cardiology consulted (Dr. Brock) on board; case discussed * elevated D-dimer-->Ct angio negative for PE * 12/12/16 tachycardia-->Adenosine given --> Atrial flutter--> did not improve with digoxin, cardizem, and amiodarone, requiring cardioversion, which converted * Cardiology consulted (Dr. Brock) on board; case discussed * Thyroid studies negative * Amiodarone 200mg PO daily (3) Hypertension Assessment & Plan: * monitor vital signs * controlled * Increased Norvasc 10mg PO daily (4) Deep vein thrombosis * per 12/12/16 Doppler: right peroneal vein DVT+ * Patient is currently on therapuetic lovenox * Started on Coumadin 5mg PO tonight, f/u INR in the morning (5) Acute respiratory failure (resolved) Assessment & Plan: * s/p tracheostomy 10/28/16 * Patient completed trach collar. * Weaning completed; off ventilator * Saturating well. * Monitor dressing change of trach site * Pulmonary (Dr. Bailey) consulted to assist with weaning protocol * Mucomyst PRN to help thin out secretions * Duonebs PRN shortness of breathe * monitor and may need suctioning PRN * Completed decannulation on 10/30/16; saturating well * Consulted speech-->patient not appropriate for speak-easy valve status post decannulation; encourage speaking * Discussed with ENT-->outpatient due to mild vocal cord dysfunction * Discussed with swallow-->patient has a strong cough, can be started on pleasure feedings and/or pureed diet to try to transition off peg Status: resolved (6) CVA (cerebral vascular accident) Assessment & Plan: * Hemorrhagic stroke with associated hypotension and basal ganglia involvement on admission * [id number]:5.7 * Cholestrol: 202, TG: LDL:130 HDL:52 * Aspirin 81mg PO daily * Blood pressure control monitoring * Start on Crestor 5mg POqHS * Patient is tolerating PO feeds and medications (7) Sepsis (resolved) Assessment & Plan: Per 11/05; Fever 103F and associated leukocytosis: 21.8; infection: pneumonia ( which was treated with Meropenem during the course of hospitalization) Infectious disease on board (Dr. Chavez) 10/21 Sputum-Klebsiella (sensitive to Maxipime) 10/25 Serratia and Enterobacter (sensitive to Maxipime) 10/31 Sputum: normal 11/06: Enterobacter which is sensitive Meropenem (switch from Maxipime) 11/06 Urine culture: yeast 11/09 Urine culture: yeast 11/09 Blood culture: no growth for 5 days X2 11/21 Urine culture: yeast 11/26: Urine culture: Pseudomonas 12/08: Urine culture: VRE UTI (patient not septic at time of current UTI)--> pending repeat urine culture; patient complete last dose of Tigecycline per infectious disease. (8) Urinary Tract Infection (current) * 12/08/16 VRE UTI * Multiple UTI infections * Yeast urine treated with Diflucan during hospitalization * Pseudomonas treated with Cipro during hospitalization * VRE UTI currently treated with Tigecycline and contact isolation * [place] condom catheter changed recently * Infectious disease (Dr. Chavez) on board * Tigecycline 50mg IV Q 12hours (active since 12/11/16) to finish last dose on 05/30 per ID * Florastor 250mg PO bid * Monitor LFTS * Ordered for repeat urine culture; prior contaminated (7) Hypernatremia * normalized * Patient is not receiving free fluid flushes (8) Prophylactic care * s/p peg placement * Weaned off vent; saturating well s/p decanulation * Continue with aggressive PT/OT-->latest PT (12/19):Pt was motivated during PT. Pt was able to take steps with the rolling walker inspite of unsteadiness and postural sway. Placed back to bed with the head of the bed elevated to 60 degrees. Pt was instructed to call nursing when going out of bed for safety. ( acute rehab vs [facility]) * Patient is tolerating PO feeds and medication per nursing * Patient is on therapeutic lovenox for DVT+ first time, follow-up INR Disposition * Patient is currently on IV abx for VRE UTI at this time. Pending repeat urine culture to stop isolation. Dumas discontinued. Patient instructed to use urinal. * Patient is tolerating PO feeding and PO medications, discussed with nursing staff, will need to discuss with GI, when appropriate to remove peg tube * Will need anticoagulation for for DVT+, started on Coumadin, after consulting with neurology * Patient is doing remarkable. Patient will need continue aggressive PT/OT, started on rolling walker per PT.
[2016-12-22 08:44] LABS: BASO % 0.4 % (0.0-2.0); EOS # 0.1 K/uL (0.0-0.7); HEMATOCRIT 33.6 % (35.0-51.0); LYMPH # 2.3 K/uL (1.0-4.3); LYMPH % 34.1 % (20.0-40.0); MEAN CELL VOLUME 82.9 fL (80.0-94.0); MEAN CORPUSCULAR HEMOGLOBIN 27.1 pg (27.0-31.0); MEAN CORPUSCULAR HGB CONC 32.7 g/dL (33.0-37.0); MEAN PLATELET VOLUME 9.4 fL (7.2-11.7); MONO # 0.5 K/uL (0.0-0.8); MONO % 8.2 % (0.0-10.0); NRBC % 0.1 % (0.0-2.0); RED CELL DISTRIBUTION WIDTH 16.2 % (11.5-14.5); WHITE BLOOD COUNT 6.7 K/uL (4.8-10.8)
[2016-12-22 08:51] LABS: ALB/GLOB RATIO 0.8 (1.0-2.1); ALKALINE PHOSPHATASE 104 U/L (38-126); ALT/SGPT 46 U/L (21-72); AST/SGOT 31 U/L (17-59); BILIRUBIN,TOTAL 0.7 mg/dL (0.2-1.3); BLOOD UREA NITROGEN 21 mg/dL (9-20); CARBON DIOXIDE 26 mmol/L (22-30); CHLORIDE 97 mmol/L (98-107); GFR AFRICAN-AMERICAN > 60; GLUCOSE,RANDOM 74 mg/dL (75-110); MAGNESIUM 1.9 mg/dL (1.6-2.3); PHOSPHOROUS 4.4 mg/dL (2.5-4.5); SODIUM 132 mmol/L (132-148); TOTAL PROTEIN 6.2 g/dL (6.3-8.3)
[2016-12-22 09:10] LABS: INR 1.3
[2016-12-22] MEDS: Mupirocin 2% Ointment (NASAL) NAS SCH ×2 (10:02→17:46)
[2016-12-22] MEDS: Enoxaparin 60 mg Syringe SC SCH ×2 (10:02→21:47)
[2016-12-22] MEDS: Saccharomyces Boulardi 250 mg Cap PO SCH ×2 (10:03→17:46)
--- NOTE | 2016-12-22 11:28 | CP.PCM.PN ---
<Salena Arnold - Last Filed: 12/22/16 11:34> Subjective - Date & Time of Evaluation Date of Evaluation: 12/22/16 Time of Evaluation: 09:30 - Subjective Subjective: Cardiology Progress Note- Dr. Brock Service Patient seen and examined at bedside this AM. Patient is laying comfortably in bed in NAD. Answers appropriately. No acute events overnight per nursing. 12 point review of systems completes and negative for acute complaints. Objective - Vital Signs/Intake and Output Vital Signs (last 24 hours): Temp Pulse Resp BP Pulse Ox 98.6 F 84 20 138/86 100 12/22/16 07:30 12/22/16 07:30 12/22/16 07:30 12/22/16 07:30 12/22/16 07:30 Intake and Output: 12/22/16 12/22/16 06:59 18:59 Intake Total 550 Output Total 350 Balance 200 - Medications Medications: Current Medications Acetaminophen (Tylenol 325mg Tab) 650 mg PO Q6 PRN PRN Reason: Fever >100.4 F Last Admin: 11/29/16 13:19 Dose: 650 mg Amiodarone HCl (Cordarone) 200 mg PO DAILY [facility] Last Admin: 12/22/16 10:03 Dose: 200 mg Amlodipine Besylate (Norvasc) 10 mg PO DAILY [facility] Last Admin: 12/22/16 10:03 Dose: 10 mg Aspirin (Aspirin Chewable) 81 mg PO DAILY [facility] Last Admin: 12/22/16 10:02 Dose: 81 mg Enoxaparin Sodium (Lovenox) 60 mg SC Q12 [facility] Last Admin: 12/22/16 10:02 Dose: 60 mg Famotidine (Pepcid) 20 mg PO DAILY [facility] Last Admin: 12/22/16 10:03 Dose: 20 mg Mupirocin (Bactroban 2% Nasal) 0.5 gm FAN BID [facility] Last Admin: 12/22/16 10:02 Dose: 0.5 gm Rosuvastatin Calcium (Crestor) 5 mg PO HS [facility] Saccharomyces Boulardii (Florastor) 250 mg PO BID [facility] Last Admin: 12/22/16 10:03 Dose: 250 mg - Labs Labs: 12/22/16 08:09 12/22/16 08:09 PT 14.5 SECONDS (9.7-12.2) H 12/22/16 08:09 INR 1.3 12/22/16 08:09 APTT 43 SECONDS (21-34) H 12/22/16 08:09 - Constitutional Appears: No Acute Distress - Head Exam Head Exam: NORMAL INSPECTION, NORMOCEPHALIC - Eye Exam Eye Exam: EOMI, Normal appearance - Respiratory Exam Respiratory Exam: Clear to Ausculation Bilateral, NORMAL BREATHING PATTERN - Cardiovascular Exam Cardiovascular Exam: REGULAR RHYTHM, +S1, +S2 - GI/Abdominal Exam GI & Abdominal Exam: Soft. 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 Atrial flutter Resolution s/p 50J synchronized/biphasic electric cardioversion overnight ( @ 23:39pm) Continue to monitor on Tele Continue Amiodarone 200mg PO Daily Continue aspirin 81mg PO daily Continue crestor 5mg PO daily Cardiac Stable Hemodynamically Stable Troponin Negative x 1 (12/12/16: 0.0160) 12/14/16 EKG- Normal sinus rhythm (85bmp), normal intervals, physiologic axis, minimal voltage criteria for LVH 12/12/16 CT Chest- Negative for PE 12/12/16 16:45 EKG- Supraventricular tachycardia (151bpm), normal axis, normal intervals, LVH 10/21/16 Echo- 72% EF with normal systolic and diastolic function 10/21/16- EKG sinus tachy (120bpm), jackelin axis, LVH, St and T wave abnormality in lateral leads (consider ischemia), normal intervals 10/18/16- EKG- normal sinus rhythm, normal axis, normal intervals, LVH Status: Resolved (2) HTN Assessment & Plan: Continue Norvasc 10mg PO daily Status: Chronic Case Discussed with Dr. Vinod Arnold, PGY 2 <Alejandro Brock - Last Filed: 01/19/17 13:17> Objective - Vital Signs/Intake and Output Vital Signs (last 24 hours): Temp Pulse Resp BP Pulse Ox 98.7 F 89 20 108/66 100 01/07/17 15:12 01/07/17 15:12 01/07/17 15:12 01/07/17 15:12 01/07/17 15:12 - Labs Labs: 01/06/17 07:26 01/06/17 07:26 PT 27.3 SECONDS (9.7-12.2) H 01/07/17 07:13 INR 2.4 01/07/17 07:13 APTT 55 SECONDS (21-34) H D 01/05/17 06:14 Attending/Attestation - Attestation I have personally seen and examined this patient.: Yes I have fully participated in the care of the patient.: Yes I have reviewed all pertinent clinical information, including history, physical exam and plan: Yes Notes (Text): 01/19/17 13:17 continue amiodorone for svt no complaits
--- NOTE | 2016-12-22 16:51 | CP.PCM.PN ---
<Jh Minor - Last Filed: 12/22/16 16:53> Subjective - Date & Time of Evaluation Date of Evaluation: 12/22/16 Time of Evaluation: 16:50 - Subjective Subjective: Med progress note. Attending: Dr. Vidal Pt seen and examined at bedside. No acute distress. No events overnight. Pt has no complaints, resting comfortably. Will increase warfarin and dc condom cath. Objective - Vital Signs/Intake and Output Vital Signs (last 24 hours): Temp Pulse Resp BP Pulse Ox 98.5 F 87 20 116/69 100 12/22/16 15:54 12/22/16 15:54 12/22/16 15:54 12/22/16 15:54 12/22/16 15:54 Intake and Output: 12/22/16 12/22/16 06:59 18:59 Intake Total 550 Output Total 350 Balance 200 - Medications Medications: Current Medications Acetaminophen (Tylenol 325mg Tab) 650 mg PO Q6 PRN PRN Reason: Fever >100.4 F Last Admin: 11/29/16 13:19 Dose: 650 mg Amiodarone HCl (Cordarone) 200 mg PO DAILY [facility] Last Admin: 12/22/16 10:03 Dose: 200 mg Amlodipine Besylate (Norvasc) 10 mg PO DAILY [facility] Last Admin: 12/22/16 10:03 Dose: 10 mg Aspirin (Aspirin Chewable) 81 mg PO DAILY [facility] Last Admin: 12/22/16 10:02 Dose: 81 mg Enoxaparin Sodium (Lovenox) 60 mg SC Q12 [facility] Last Admin: 12/22/16 10:02 Dose: 60 mg Famotidine (Pepcid) 20 mg PO DAILY [facility] Last Admin: 12/22/16 10:03 Dose: 20 mg Mupirocin (Bactroban 2% Nasal) 0.5 gm FAN BID [facility] Last Admin: 12/22/16 10:02 Dose: 0.5 gm Rosuvastatin Calcium (Crestor) 5 mg PO HS [facility] Saccharomyces Boulardii (Florastor) 250 mg PO BID [facility] Last Admin: 12/22/16 10:03 Dose: 250 mg Warfarin Sodium (Coumadin) 7.5 mg PO 1800 [facility] Stop: 12/22/16 18:01 - Labs Labs: 12/22/16 08:09 12/22/16 08:09 PT 14.5 SECONDS (9.7-12.2) H 12/22/16 08:09 INR 1.3 12/22/16 08:09 APTT 43 SECONDS (21-34) H 12/22/16 08:09 - Constitutional Appears: Non-toxic, No Acute Distress - Head Exam Head Exam: ATRAUMATIC, NORMAL INSPECTION, NORMOCEPHALIC - Eye Exam Eye Exam: EOMI - ENT Exam ENT Exam: Mucous Membranes Moist - Neck Exam Neck Exam: Full ROM, Normal Inspection. absent: Lymphadenopathy - Respiratory Exam Respiratory Exam: NORMAL BREATHING PATTERN. absent: Respiratory Distress - Cardiovascular Exam Cardiovascular Exam: +S1, +S2 - GI/Abdominal Exam GI & Abdominal Exam: Soft, Normal Bowel Sounds. absent: Tenderness - Extremities Exam Extremities Exam: Full ROM, Normal Inspection - Neurological Exam Neurological Exam: Alert, Awake, Oriented x3 - Psychiatric Exam Psychiatric exam: Normal Affect, Normal Mood - Skin Skin Exam: Dry, Intact, Normal Color, Warm Assessment and Plan - Assessment and Plan (Free Text) Assessment: (1) Intracranial hemorrhage 10/18 CT Head: Left basal ganglia acute hemorrhage, possibly hypertensive with associated intraventricular hemorrhage and mass effect upon the left lateral aspect of the 3rd ventricle with the tip shift of the 3rd ventricle towards the right side. No generalized midline shift. Air-fluid level in sphenoid sinus common nonspecific. Please correlate for concern regarding acute sinusitis. Mild involutional changes. 10/19 CT Head: little interval change in the known 2.0 x 2.7 acute hematoma in left thalamus with intra ventricular extension of hemorrhage. Interval mild worsening of obstructive hydrocephalus. 10/24 CT Head: little interval change in the size of left thalamic hemorrhage 2.4x2.9 cm with intraventricular extension of hemorrhage and mild obstructive hydrocephalus. 2 mm midline shift from left to right with no evidence of herniation. Near complete resolution of hemorrhage within 4th ventricle. 11/03/16 CT Head; Interval decrease in size and density left basal ganglia hematoma; well-circumscribed peripheral rim of low attentuation edema about hematoma; combination of brain edema and brain necrosis; intraventricular hemorrhage has diminished. Ventricles hae also decreased in size temporal horns and atria remain prominent. Persistent compression of the 3rd and left lateral ventricle 12/16/16 CT Head: no acute findings noted * Neurosurgery per initial consult-->patient's prognosis dismal at beginning of admission * Neurology (Dr. Simpson) on board-->per 10/26 note: patient has attained maximum response from neuro point of view from this admission; keep nutritional status optimized and avoid infections; treat with peg/trach; no antiplatelets for next 4-6 weeks (maintain MAP ~100) * On baby aspirin 81mg PO daily; discussed with neurology on 11/22/16 * Patient started on therapeutic Lovenox for DVT+, will follow-up INR * Pt is ok to start warfarin per neuro * will resume warfarin 7.5 mg tonight f/u inr tomorrow (2) Atrial Flutter * Cardiology consulted (Dr. Brock) on board; case discussed * elevated D-dimer-->Ct angio negative for PE * 12/12/16 tachycardia-->Adenosine given --> Atrial flutter--> did not improve with digoxin, cardizem, and amiodarone, requiring cardioversion, which converted * Thyroid studies negative * Amiodarone 200mg PO daily * has been in NSR * we will renew tele (3) Hypertension * monitor vital signs * controlled * elevated yesterday afternoon-->restarted Norvasc 5mg PO daily, we will increase to 10 daily (4) Deep vein thrombosis * per 12/12/16 Doppler: right peroneal vein DVT+ * Patient is currently on therapuetic lovenox and warfarin as well * pt is ok to start warfarin per neuro Dr. Simpson * warfarin 7.5 mg PO tonight (5) Dyslipidemia -continue crestor 5 daily (6) Acute respiratory failure (resolved) * s/p tracheostomy 10/28/16 * Patient completed trach collar. * Weaning completed; off ventilator * Saturating well. * Monitor dressing change of trach site * Pulmonary (Dr. Bailey) consulted to assist with weaning protocol * Completed decannulation on 10/30/16; saturating well * Consulted speech-->patient not appropriate for speak-easy valve status post decannulation; encourage speaking * Discussed with ENT-->outpatient due to mild vocal cord dysfunction * Discussed with swallow-->patient has a strong cough, can be started on pleasure feedings and/or pureed diet to try to transition off peg * pt now on regular diet, tolerating well * we will f.u with gi about removal of peg (6) CVA * Hemorrhagic stroke with associated hypotension and basal ganglia involvement on admission * hemoglobin a1c:5.7 * Cholesterol: 202, LDL:130 HDL:52 * Aspirin 81mg PO daily * Blood pressure control monitoring * continue Crestor 5mg PO qHS * s/p peg placement (7) Sepsis (resolved) Per 11/05; Fever 103F and associated leukocytosis: 21.8; infection: pneumonia ( which was treated with Meropenem during the course of hospitalization) Infectious disease on board (Dr. Chavez) 10/21 Sputum-Klebsiella (sensitive to Maxipime) 10/25 Serratia and Enterobacter (sensitive to Maxipime) 10/31 Sputum: normal 11/06: Enterobacter which is sensitive Meropenem (switch from Maxipime) 11/06 Urine culture: yeast 11/09 Urine culture: yeast 11/09 Blood culture: no growth for 5 days X2 11/21 Urine culture: yeast 11/26: Urine culture: Pseudomonas 12/08: Urine culture: VRE UTI (patient not septic at time of current UTI) -repeat urine culture shows contamination -continue tylenol PRN for fevers (8) Urinary Tract Infection (current) * 12/08/16 VRE UTI * Multiple UTI infections * Yeast urine treated with Diflucan during hospitalization * Pseudomonas treated with Cipro during hospitalization * VRE UTI currently treated with Tigecycline and contact isolation * [place] condom catheter changed recently * Infectious disease (Dr. Chavez) on board * Tigecycline 50mg IV Q 12hours (active since 12/11/16), dc today * Florastor 250mg PO bid * Monitor LFTS/renal function * dumas has been discontinued * repeat urine negative, tigecycline has been discontinued * will follow up about dc contact precautions (7) Hypernatremia -resolved (8) Prophylactic care * s/p peg placement * Weaned off vent; saturating well s/p decanulation * Continue with aggressive PT/OT-->latest PT noted recommending for subacute/ LTAC * PT/OT * Monitor calorie count * Patient is on therapeutic lovenox for DVT+ first time, follow-up INR, warfarin 7.5 as well tonight * pepcid 20 PO daily Disposition * repeat urine negative. * Ordered for calorie count * Will need anticoagulation for for DVT+ * Pending insurance for prison care facility for rehabilitation and peg feedings, will need constant monitoring. Patient currently wears mittens to prevent him from pulling on his tubes and is unsafe for home. Will need to clarify with family regarding the type of care patient will need with both patient's son and daughters * Discussed with Dr. Vidal <Apple Vidal V - Last Filed: 12/24/16 16:52> Objective - Vital Signs/Intake and Output Vital Signs (last 24 hours): Temp Pulse Resp BP Pulse Ox 98.3 F 88 20 112/70 100 12/24/16 16:07 12/24/16 16:07 12/24/16 16:07 12/24/16 16:07 12/24/16 16:07 Intake and Output: 12/24/16 12/24/16 06:59 18:59 Intake Total 360 Output Total 1150 Balance -790 - Medications Medications: Current Medications Acetaminophen (Tylenol 325mg Tab) 650 mg PO Q6 PRN PRN Reason: Fever >100.4 F Last Admin: 11/29/16 13:19 Dose: 650 mg Amiodarone HCl (Cordarone) 200 mg PO DAILY [facility] Last Admin: 12/24/16 09:37 Dose: 200 mg Amlodipine Besylate (Norvasc) 10 mg PO DAILY [facility] Last Admin: 12/24/16 09:37 Dose: 10 mg Aspirin (Aspirin Chewable) 81 mg PO DAILY [facility] Last Admin: 12/24/16 09:37 Dose: 81 mg Famotidine (Pepcid) 20 mg PO DAILY [facility] Last Admin: 12/24/16 09:37 Dose: 20 mg Mupirocin (Bactroban 2% Nasal) 0.5 gm FAN BID [facility] Last Admin: 12/24/16 09:38 Dose: 0.5 gm Rosuvastatin Calcium (Crestor) 5 mg PO HS [facility] Last Admin: 12/23/16 22:00 Dose: 5 mg Saccharomyces Boulardii (Florastor) 250 mg PO BID [facility] Last Admin: 12/24/16 09:38 Dose: 250 mg Warfarin Sodium (Coumadin) 5 mg PO 1800 [facility] Stop: 12/24/16 18:01 - Labs Labs: 12/24/16 07:15 12/24/16 07:15 PT 24.9 SECONDS (9.7-12.2) H D 12/24/16 07:15 INR 2.2 D 12/24/16 07:15 APTT 47 SECONDS (21-34) H 12/23/16 07:05 Attending/Attestation - Attestation I have personally seen and examined this patient.: Yes I have fully participated in the care of the patient.: Yes I have reviewed all pertinent clinical information, including history, physical exam and plan: Yes Notes (Text): This is a late computer entry for 12/22/16. Patient seen, examined, and case discussed with day-time resident. Patient denies acute complaints. Patient is currently on Lovenox bridge to Coumadin for Coumadin for DVT. Patient to be given Coumadin tonight. Patient's blood pressure medication increased to Norvasc 10mg PO daily. Assessment/Plan (1) Intracranial hemorrhage Assessment & Plan: 10/18 CT Head: Left basal ganglia acute hemorrhage, possibly hypertensive with associated intraventricular hemorrhage and mass effect upon the left lateral aspect of the 3rd ventricle with the tip shift of the 3rd ventricle towards the right side. No generalized midline shift. Air-fluid level in sphenoid sinus common nonspecific. Please correlate for concern regarding acute sinusitis. Mild involutional changes. 10/19 CT Head: little interval change in the known 2.0 x 2.7 acute hematoma in left thalamus with intra ventricular extension of hemorrhage. Interval mild worsening of obstructive hydrocephalus. 10/24 CT Head: little interval change in the size of left thalamic hemorrhage 2.4x2.9 cm with intraventricular extension of hemorrhage and mild obstructive hydrocephalus. 2 mm midline shift from left to right with no evidence of herniation. Near complete resolution of hemorrhage within 4th ventricle. 11/03/16 CT Head; Interval decrease in size and density left basal ganglia hematoma; well-circumscribed peripheral rim of low attentuation edema about hematoma; combination of brain edema and brain necrosis; intraventricular hemorrhage has diminished. Ventricles hae also decreased in size temporal horns and atria remain prominent. Persistent compression of the 3rd and left lateral ventricle 12/16/16 CT Head: no acute findings noted * Neurosurgery per initial consult-->patient's prognosis dismal at beginning of admission * Neurology (Dr. Simpson) on board-->per 10/26 note: patient has attained maximum response from neuro point of view from this admission; keep nutritional status and avoid infectious; treat with peg/trach; no antiplatelets for next 4-6 weeks (; maintain MAP ~100) * On baby aspirin 81mg PO daily; discussed with neurology with 11/22/16 * On bridge lovenox to Coumadin for DVT Status: Chronic (2) Atrial Flutter Assessment & Plan: * Cardiology consulted (Dr. Brock) on board; case discussed * elevated D-dimer-->Ct angio negative for PE * 12/12/16 tachycardia-->Adenosine given --> Atrial flutter--> did not improve with digoxin, cardizem, and amiodarone, requiring cardioversion, which converted * Cardiology consulted (Dr. Brock) on board; case discussed * Thyroid studies negative * Amiodarone 200mg PO daily (3) Hypertension Assessment & Plan: * monitor vital signs * Increased to Norvasc 10mg PO daily (4) Deep vein thrombosis * per 12/12/16 Doppler: right peroneal vein DVT+ * On therapeutic Lovenox * Started on Coumadin 7.5mg PO tonight (5) Acute respiratory failure (resolved) Assessment & Plan: * s/p tracheostomy 10/28/16 * Patient completed trach collar. * Weaning completed; off ventilator * Saturating well. * Monitor dressing change of trach site * Pulmonary (Dr. Bailey) consulted to assist with weaning protocol * Mucomyst PRN to help thin out secretions * Duonebs PRN shortness of breathe * monitor and may need suctioning PRN * Completed decannulation on 10/30/16; saturating well * Consulted speech-->patient not appropriate for speak-easy valve status post decannulation; encourage speaking * Discussed with ENT-->outpatient due to mild vocal cord dysfunction * Discussed with swallow-->patient has a strong cough, can be started on pleasure feedings and/or pureed diet to try to transition off peg Status: resolved (6) CVA (cerebral vascular accident) Assessment & Plan: * Hemorrhagic stroke with associated hypotension and basal ganglia involvement on admission * [id number]:5.7 * Cholestrol: 202, TG: LDL:130 HDL:52 * Aspirin 81mg PO daily * Blood pressure control monitoring * Start on Crestor 5mg POqHS * Patient is tolerating PO feeds and medications (7) Sepsis (resolved) Assessment & Plan: * Per 11/05; Fever 103F and associated leukocytosis: 21.8; infection: pneumonia ( which was treated with Meropenem during the course of hospitalization) * Infectious disease on board (Dr. Chavez) * 10/21 Sputum-Klebsiella (sensitive to Maxipime) * 10/25 Serratia and Enterobacter (sensitive to Maxipime) * 10/31 Sputum: normal= * 11/06: Enterobacter which is sensitive Meropenem (switch from Maxipime) * 11/06 Urine culture: yeast * 11/09 Urine culture: yeast * 11/09 Blood culture: no growth for 5 days X2 * 11/21 Urine culture: yeast * 11/26: Urine culture: Pseudomonas * 12/08: Urine culture: VRE UTI (patient not septic at time of current UTI) * 12/21: Urine culture: no growth * Patient is off IV abx since 12/21/16 (8) Urinary Tract Infection (current) * 12/08/16 VRE UTI * Multiple UTI infections * Yeast urine treated with Diflucan during hospitalization * Pseudomonas treated with Cipro during hospitalization * VRE UTI currently treated with Tigecycline and contact isolation * Discontinue [place] catheter * Infectious disease (Dr. Chavez) on board * Florastor 250mg PO bid * 12/08: Urine culture: VRE UTI (patient not septic at time of current UTI) * 12/21: Urine culture: no growth * Patient is off IV abx since 12/21/16 (9) Hypernatremia * normalized * Patient is not receiving free fluid flushes (10) Prophylactic care * s/p peg placement-->will require follow-up with GI outpatient to remove peg tube * Weaned off vent; saturating well s/p decanulation * Continue with aggressive PT/OT-->latest PT (12/19):Pt was motivated during PT. Pt was able to take steps with the rolling walker inspite of unsteadiness and postural sway. Placed back to bed with the head of the bed elevated to 60 degrees. Pt was instructed to call nursing when going out of bed for safety. ( acute rehab vs [facility]) * Patient is tolerating PO feeds and medication per nursing * Patient is bridge of Lovenox to Coumadin for DVT+, Ordered for Coumadin tonight Disposition * Patient is tolerating PO feeding and PO medications, discussed with nursing staff. * Patient is currently on Lovenox bridge to Coumadin. * Patient is doing remarkable. Patient will need continue aggressive PT/OT, started on rolling walker per PT.
[2016-12-23 07:28] LABS: INR 1.5
[2016-12-23 07:38] LABS: BASO % 0.5 % (0.0-2.0); EOS # 0.1 K/uL (0.0-0.7); EOS % 1.5 % (0.0-4.0); HEMATOCRIT 32.2 % (35.0-51.0); LYMPH # 2.2 K/uL (1.0-4.3); LYMPH % 33.2 % (20.0-40.0); MEAN CELL VOLUME 83.2 fL (80.0-94.0); MEAN CORPUSCULAR HEMOGLOBIN 27.4 pg (27.0-31.0); MEAN PLATELET VOLUME 9.2 fL (7.2-11.7); MONO # 0.5 K/uL (0.0-0.8); MONO % 7.6 % (0.0-10.0); NRBC % 0.1 % (0.0-2.0); RED CELL DISTRIBUTION WIDTH 16.6 % (11.5-14.5); WHITE BLOOD COUNT 6.6 K/uL (4.8-10.8)
[2016-12-23 07:44] LABS: CHLORIDE 99 mmol/L (98-107); SODIUM 132 mmol/L (132-148)
[2016-12-23 07:46] LABS: AST/SGOT 33 U/L (17-59); BILIRUBIN,TOTAL 0.6 mg/dL (0.2-1.3); CARBON DIOXIDE 25 mmol/L (22-30); GFR AFRICAN-AMERICAN > 60; TOTAL PROTEIN 5.8 g/dL (6.3-8.3)
[2016-12-23 07:47] LABS: ALB/GLOB RATIO 0.8 (1.0-2.1); ALKALINE PHOSPHATASE 94 U/L (38-126); ALT/SGPT 42 U/L (21-72); BLOOD UREA NITROGEN 19 mg/dL (9-20); CALCIUM 7.9 mg/dl (8.6-10.4); GLUCOSE,RANDOM 77 mg/dL (75-110)
--- NOTE | 2016-12-23 10:30 | CP.PCM.PN ---
<Salena Arnold - Last Filed: 12/23/16 10:27> Subjective - Date & Time of Evaluation Date of Evaluation: 12/23/16 Time of Evaluation: 10:00 - Subjective Subjective: Cardiology Progress Note- Dr. Brock Service Patient seen and examined at bedside this AM. No acute events overnight per nursing. Patient is laying comfortably in bed in NAD. Patient has hoarse voice but answers appropriately. 12 point review of systems completes and negative for acute complaints. Objective - Vital Signs/Intake and Output Vital Signs (last 24 hours): Temp Pulse Resp BP Pulse Ox 98.4 F 84 20 134/83 100 12/23/16 07:30 12/23/16 07:30 12/23/16 07:30 12/23/16 07:30 12/23/16 07:30 Intake and Output: 12/23/16 12/23/16 06:59 18:59 Output Total 450 Balance -450 - Medications Medications: Current Medications Acetaminophen (Tylenol 325mg Tab) 650 mg PO Q6 PRN PRN Reason: Fever >100.4 F Last Admin: 11/29/16 13:19 Dose: 650 mg Amiodarone HCl (Cordarone) 200 mg PO DAILY [facility] Last Admin: 12/22/16 10:03 Dose: 200 mg Amlodipine Besylate (Norvasc) 10 mg PO DAILY [facility] Last Admin: 12/22/16 10:03 Dose: 10 mg Aspirin (Aspirin Chewable) 81 mg PO DAILY [facility] Last Admin: 12/22/16 10:02 Dose: 81 mg Enoxaparin Sodium (Lovenox) 60 mg SC Q12 [facility] Last Admin: 12/22/16 21:47 Dose: 60 mg Famotidine (Pepcid) 20 mg PO DAILY [facility] Last Admin: 12/22/16 10:03 Dose: 20 mg Mupirocin (Bactroban 2% Nasal) 0.5 gm FNA BID [facility] Last Admin: 12/22/16 17:46 Dose: 0.5 gm Rosuvastatin Calcium (Crestor) 5 mg PO HS [facility] Last Admin: 12/22/16 21:47 Dose: 5 mg Saccharomyces Boulardii (Florastor) 250 mg PO BID [facility] Last Admin: 12/22/16 17:46 Dose: 250 mg - Labs Labs: 12/23/16 07:05 12/23/16 07:05 PT 17.5 SECONDS (9.7-12.2) H 12/23/16 07:05 INR 1.5 12/23/16 07:05 APTT 47 SECONDS (21-34) H 12/23/16 07:05 - Constitutional Appears: No Acute Distress - Head Exam Head Exam: NORMAL INSPECTION, NORMOCEPHALIC - Eye Exam Eye Exam: EOMI, Normal appearance - ENT Exam ENT Exam: Mucous Membranes Moist - Neck Exam Neck Exam: Full ROM - Respiratory Exam Respiratory Exam: Clear to Ausculation Bilateral, NORMAL BREATHING PATTERN - Cardiovascular Exam Cardiovascular Exam: REGULAR RHYTHM, +S1, +S2 Assessment and Plan - Assessment and Plan (Free Text) Assessment: (1) Supraventricular tachycardia Assessment & Plan: 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 Atrial flutter Resolution s/p 50J synchronized/biphasic electric cardioversion overnight ( @ 23:39pm) Continue to monitor on Tele Continue Amiodarone 200mg PO Daily Continue aspirin 81mg PO daily Continue crestor 5mg PO daily Cardiac Stable Hemodynamically Stable Troponin Negative x 1 (12/12/16: 0.0160) 12/14/16 EKG- Normal sinus rhythm (85bmp), normal intervals, physiologic axis, minimal voltage criteria for LVH 12/12/16 CT Chest- Negative for PE 12/12/16 16:45 EKG- Supraventricular tachycardia (151bpm), normal axis, normal intervals, LVH 10/21/16 Echo- 72% EF with normal systolic and diastolic function 10/21/16- EKG sinus tachy (120bpm), jackelin axis, LVH, St and T wave abnormality in lateral leads (consider ischemia), normal intervals 10/18/16- EKG- normal sinus rhythm, normal axis, normal intervals, LVH Status: Resolved (2) HTN Assessment & Plan: Continue Norvasc 10mg PO daily Status: Chronic Case Discussed with Dr. Vinod Arnold, PGY 2 <Alejandro Brock - Last Filed: 01/19/17 13:16> Objective - Vital Signs/Intake and Output Vital Signs (last 24 hours): Temp Pulse Resp BP Pulse Ox 98.7 F 89 20 108/66 100 01/07/17 15:12 01/07/17 15:12 01/07/17 15:12 01/07/17 15:12 01/07/17 15:12 - Labs Labs: 01/06/17 07:26 01/06/17 07:26 PT 27.3 SECONDS (9.7-12.2) H 01/07/17 07:13 INR 2.4 01/07/17 07:13 APTT 55 SECONDS (21-34) H D 01/05/17 06:14 Attending/Attestation - Attestation I have personally seen and examined this patient.: Yes I have fully participated in the care of the patient.: Yes I have reviewed all pertinent clinical information, including history, physical exam and plan: Yes Notes (Text): 01/19/17 13:16 svt stable no cp tolerating meds
[2016-12-23] MEDS: Enoxaparin 60 mg Syringe SC SCH ×2 (10:43→22:00)
[2016-12-23] MEDS: Mupirocin 2% Ointment (NASAL) NAS SCH ×2 (10:43→17:52)
[2016-12-23] MEDS: Saccharomyces Boulardi 250 mg Cap PO SCH ×2 (10:44→17:52)
--- NOTE | 2016-12-23 15:06 | CP.PCM.PN ---
<Jh Minor - Last Filed: 12/23/16 15:07> Subjective - Date & Time of Evaluation Date of Evaluation: 12/23/16 Time of Evaluation: 15:05 - Subjective Subjective: Med progress note. Attending: Dr. Vidal Pt seen and examined at bedside. No acute distress. No events overnight. No complaints. Condom cath discontinued. Warfarin 7.5 tonight . Objective - Vital Signs/Intake and Output Vital Signs (last 24 hours): Temp Pulse Resp BP Pulse Ox 98.4 F 84 20 134/83 100 12/23/16 07:30 12/23/16 07:30 12/23/16 07:30 12/23/16 07:30 12/23/16 07:30 Intake and Output: 12/23/16 12/23/16 06:59 18:59 Output Total 450 Balance -450 - Medications Medications: Current Medications Acetaminophen (Tylenol 325mg Tab) 650 mg PO Q6 PRN PRN Reason: Fever >100.4 F Last Admin: 11/29/16 13:19 Dose: 650 mg Amiodarone HCl (Cordarone) 200 mg PO DAILY [facility] Last Admin: 12/23/16 10:43 Dose: 200 mg Amlodipine Besylate (Norvasc) 10 mg PO DAILY [facility] Last Admin: 12/23/16 10:43 Dose: 10 mg Aspirin (Aspirin Chewable) 81 mg PO DAILY [facility] Last Admin: 12/23/16 10:42 Dose: 81 mg Enoxaparin Sodium (Lovenox) 60 mg SC Q12 [facility] Last Admin: 12/23/16 10:43 Dose: 60 mg Famotidine (Pepcid) 20 mg PO DAILY [facility] Last Admin: 12/23/16 10:43 Dose: 20 mg Mupirocin (Bactroban 2% Nasal) 0.5 gm FAN BID [facility] Last Admin: 12/23/16 10:43 Dose: 0.5 gm Rosuvastatin Calcium (Crestor) 5 mg PO HS [facility] Last Admin: 12/22/16 21:47 Dose: 5 mg Saccharomyces Boulardii (Florastor) 250 mg PO BID [facility] Last Admin: 12/23/16 10:44 Dose: 250 mg Warfarin Sodium (Coumadin) 7.5 mg PO 1800 [facility] Stop: 12/23/16 18:01 - Labs Labs: 12/23/16 07:05 12/23/16 07:05 PT 17.5 SECONDS (9.7-12.2) H 12/23/16 07:05 INR 1.5 12/23/16 07:05 APTT 47 SECONDS (21-34) H 12/23/16 07:05 - Constitutional Appears: Non-toxic, No Acute Distress - Head Exam Head Exam: ATRAUMATIC, NORMAL INSPECTION, NORMOCEPHALIC - Eye Exam Eye Exam: EOMI - ENT Exam ENT Exam: Mucous Membranes Moist - Neck Exam Neck Exam: Full ROM, Normal Inspection. absent: Lymphadenopathy - Respiratory Exam Respiratory Exam: NORMAL BREATHING PATTERN. absent: Respiratory Distress - Cardiovascular Exam Cardiovascular Exam: +S1, +S2 - GI/Abdominal Exam GI & Abdominal Exam: Soft, Normal Bowel Sounds. absent: Tenderness - Extremities Exam Extremities Exam: Full ROM, Normal Inspection - Neurological Exam Neurological Exam: Alert, Awake, Oriented x3 - Psychiatric Exam Psychiatric exam: Normal Affect, Normal Mood - Skin Skin Exam: Dry, Intact, Normal Color, Warm Assessment and Plan - Assessment and Plan (Free Text) Assessment: (1) Intracranial hemorrhage 10/18 CT Head: Left basal ganglia acute hemorrhage, possibly hypertensive with associated intraventricular hemorrhage and mass effect upon the left lateral aspect of the 3rd ventricle with the tip shift of the 3rd ventricle towards the right side. No generalized midline shift. Air-fluid level in sphenoid sinus common nonspecific. Please correlate for concern regarding acute sinusitis. Mild involutional changes. 10/19 CT Head: little interval change in the known 2.0 x 2.7 acute hematoma in left thalamus with intra ventricular extension of hemorrhage. Interval mild worsening of obstructive hydrocephalus. 10/24 CT Head: little interval change in the size of left thalamic hemorrhage 2.4x2.9 cm with intraventricular extension of hemorrhage and mild obstructive hydrocephalus. 2 mm midline shift from left to right with no evidence of herniation. Near complete resolution of hemorrhage within 4th ventricle. 11/03/16 CT Head; Interval decrease in size and density left basal ganglia hematoma; well-circumscribed peripheral rim of low attentuation edema about hematoma; combination of brain edema and brain necrosis; intraventricular hemorrhage has diminished. Ventricles hae also decreased in size temporal horns and atria remain prominent. Persistent compression of the 3rd and left lateral ventricle 12/16/16 CT Head: no acute findings noted * Neurosurgery per initial consult-->patient's prognosis dismal at beginning of admission * Neurology (Dr. Simpson) on board-->per 10/26 note: patient has attained maximum response from neuro point of view from this admission; keep nutritional status optimized and avoid infections; treat with peg/trach; no antiplatelets for next 4-6 weeks (maintain MAP ~100) * On baby aspirin 81mg PO daily; discussed with neurology on 11/22/16 * Patient started on therapeutic Lovenox for DVT+, will follow-up INR * Pt is ok to start warfarin per neuro * will resume warfarin 7.5 mg tonight f/u inr tomorrow (2) Atrial Flutter * Cardiology consulted (Dr. Brock) on board; case discussed * elevated D-dimer-->Ct angio negative for PE * 12/12/16 tachycardia-->Adenosine given --> Atrial flutter--> did not improve with digoxin, cardizem, and amiodarone, requiring cardioversion, which converted * Thyroid studies negative * Amiodarone 200mg PO daily * has been in NSR * we will renew tele (3) Hypertension * monitor vital signs * controlled * elevated yesterday afternoon-->restarted Norvasc 5mg PO daily, we will increase to 10 daily (4) Deep vein thrombosis * per 12/12/16 Doppler: right peroneal vein DVT+ * Patient is currently on therapuetic lovenox and warfarin as well * pt is ok to start warfarin per neuro Dr. Simpson * warfarin 7.5 mg PO tonight (5) Dyslipidemia -continue crestor 5 daily (6) Acute respiratory failure (resolved) * s/p tracheostomy 10/28/16 * Patient completed trach collar. * Weaning completed; off ventilator * Saturating well. * Monitor dressing change of trach site * Pulmonary (Dr. Bailey) consulted to assist with weaning protocol * Completed decannulation on 10/30/16; saturating well * Consulted speech-->patient not appropriate for speak-easy valve status post decannulation; encourage speaking * Discussed with ENT-->outpatient due to mild vocal cord dysfunction * Discussed with swallow-->patient has a strong cough, can be started on pleasure feedings and/or pureed diet to try to transition off peg * pt now on regular diet, tolerating well * we will f.u with gi about removal of peg * calorie count pending (6) CVA * Hemorrhagic stroke with associated hypotension and basal ganglia involvement on admission * hemoglobin a1c:5.7 * Cholesterol: 202, LDL:130 HDL:52 * Aspirin 81mg PO daily * Blood pressure control monitoring * continue Crestor 5mg PO qHS * s/p peg placement (7) Sepsis (resolved) Per 11/05; Fever 103F and associated leukocytosis: 21.8; infection: pneumonia ( which was treated with Meropenem during the course of hospitalization) Infectious disease on board (Dr. Chavez) 10/21 Sputum-Klebsiella (sensitive to Maxipime) 10/25 Serratia and Enterobacter (sensitive to Maxipime) 10/31 Sputum: normal 11/06: Enterobacter which is sensitive Meropenem (switch from Maxipime) 11/06 Urine culture: yeast 11/09 Urine culture: yeast 11/09 Blood culture: no growth for 5 days X2 11/21 Urine culture: yeast 11/26: Urine culture: Pseudomonas 12/08: Urine culture: VRE UTI (patient not septic at time of current UTI) -repeat urine culture shows contamination, urine culture 12/21 negative -continue tylenol PRN for fevers (8) Urinary Tract Infection (current) * 12/08/16 VRE UTI * Multiple UTI infections * Yeast urine treated with Diflucan during hospitalization * Pseudomonas treated with Cipro during hospitalization * VRE UTI currently treated with Tigecycline and contact isolation * [place] condom catheter changed recently * Infectious disease (Dr. Chavez) on board * Tigecycline 50mg IV Q 12hours (active since 12/11/16), dc today * Florastor 250mg PO bid * Monitor LFTS/renal function * dumas has been discontinued * repeat urine negative, tigecycline has been discontinued * will follow up about dc contact precautions (7) Hypernatremia -resolved (8) Prophylactic care * s/p peg placement * Weaned off vent; saturating well s/p decannulation * Continue with aggressive PT/OT-->latest PT noted recommending for subacute/ LTAC * PT/OT * Monitor calorie count * Patient is on therapeutic lovenox for DVT+ first time, follow-up INR, warfarin 7.5 as well tonight * pepcid 20 PO daily Disposition * repeat urine negative. 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 Patient currently wears mittens to prevent him from pulling on his tubes and is unsafe for home. Will need to clarify with family regarding the type of care patient will need with both patient's son and daughters * Discussed with Dr. Vidal <Apple Vidal V - Last Filed: 12/24/16 16:47> Objective - Vital Signs/Intake and Output Vital Signs (last 24 hours): Temp Pulse Resp BP Pulse Ox 98.3 F 88 20 112/70 100 12/24/16 16:07 12/24/16 16:07 12/24/16 16:07 12/24/16 16:07 12/24/16 16:07 Intake and Output: 12/24/16 12/24/16 06:59 18:59 Intake Total 360 Output Total 1150 Balance -790 - Medications Medications: Current Medications Acetaminophen (Tylenol 325mg Tab) 650 mg PO Q6 PRN PRN Reason: Fever >100.4 F Last Admin: 11/29/16 13:19 Dose: 650 mg Amiodarone HCl (Cordarone) 200 mg PO DAILY [facility] Last Admin: 12/24/16 09:37 Dose: 200 mg Amlodipine Besylate (Norvasc) 10 mg PO DAILY [facility] Last Admin: 12/24/16 09:37 Dose: 10 mg Aspirin (Aspirin Chewable) 81 mg PO DAILY [facility] Last Admin: 12/24/16 09:37 Dose: 81 mg Famotidine (Pepcid) 20 mg PO DAILY [facility] Last Admin: 12/24/16 09:37 Dose: 20 mg Mupirocin (Bactroban 2% Nasal) 0.5 gm FAN BID [facility] Last Admin: 12/24/16 09:38 Dose: 0.5 gm Rosuvastatin Calcium (Crestor) 5 mg PO HS [facility] Last Admin: 12/23/16 22:00 Dose: 5 mg Saccharomyces Boulardii (Florastor) 250 mg PO BID [facility] Last Admin: 12/24/16 09:38 Dose: 250 mg Warfarin Sodium (Coumadin) 5 mg PO 1800 [facility] Stop: 12/24/16 18:01 - Labs Labs: 12/24/16 07:15 12/24/16 07:15 PT 24.9 SECONDS (9.7-12.2) H D 12/24/16 07:15 INR 2.2 D 12/24/16 07:15 APTT 47 SECONDS (21-34) H 12/23/16 07:05 Attending/Attestation - Attestation I have personally seen and examined this patient.: Yes I have fully participated in the care of the patient.: Yes I have reviewed all pertinent clinical information, including history, physical exam and plan: Yes Notes (Text): This is a late computer entry for 12/23/16. Patient seen, examined and case discussed with day-time resident. Patient see at bedside. Patient denies acute complaints. Patient is currently being bridge from Lovenox to Coumadin for DVT. Will give Coumadin 7.5 mg PO tonight. Assessment/Plan (1) Intracranial hemorrhage Assessment & Plan: 10/18 CT Head: Left basal ganglia acute hemorrhage, possibly hypertensive with associated intraventricular hemorrhage and mass effect upon the left lateral aspect of the 3rd ventricle with the tip shift of the 3rd ventricle towards the right side. No generalized midline shift. Air-fluid level in sphenoid sinus common nonspecific. Please correlate for concern regarding acute sinusitis. Mild involutional changes. 10/19 CT Head: little interval change in the known 2.0 x 2.7 acute hematoma in left thalamus with intra ventricular extension of hemorrhage. Interval mild worsening of obstructive hydrocephalus. 10/24 CT Head: little interval change in the size of left thalamic hemorrhage 2.4x2.9 cm with intraventricular extension of hemorrhage and mild obstructive hydrocephalus. 2 mm midline shift from left to right with no evidence of herniation. Near complete resolution of hemorrhage within 4th ventricle. 11/03/16 CT Head; Interval decrease in size and density left basal ganglia hematoma; well-circumscribed peripheral rim of low attentuation edema about hematoma; combination of brain edema and brain necrosis; intraventricular hemorrhage has diminished. Ventricles hae also decreased in size temporal horns and atria remain prominent. Persistent compression of the 3rd and left lateral ventricle 12/16/16 CT Head: no acute findings noted * Neurosurgery per initial consult-->patient's prognosis dismal at beginning of admission * Neurology (Dr. Simpson) on board-->per 10/26 note: patient has attained maximum response from neuro point of view from this admission; keep nutritional status and avoid infectious; treat with peg/trach; no antiplatelets for next 4-6 weeks (; maintain MAP ~100) * On baby aspirin 81mg PO daily; discussed with neurology with 11/22/16 * On bridge lovenox to Coumadin for DVT Status: Chronic (2) Atrial Flutter Assessment & Plan: * Cardiology consulted (Dr. Brock) on board; case discussed * elevated D-dimer-->Ct angio negative for PE * 12/12/16 tachycardia-->Adenosine given --> Atrial flutter--> did not improve with digoxin, cardizem, and amiodarone, requiring cardioversion, which converted * Cardiology consulted (Dr. Brock) on board; case discussed * Thyroid studies negative * Amiodarone 200mg PO daily (3) Hypertension Assessment & Plan: * monitor vital signs * controlled * Norvasc 10mg PO daily (4) Deep vein thrombosis * per 12/12/16 Doppler: right peroneal vein DVT+ * On therapeutic Lovenox * Started on Coumadin 7.5mg PO tonight (5) Acute respiratory failure (resolved) Assessment & Plan: * s/p tracheostomy 10/28/16 * Patient completed trach collar. * Weaning completed; off ventilator * Saturating well. * Monitor dressing change of trach site * Pulmonary (Dr. Bailey) consulted to assist with weaning protocol * Mucomyst PRN to help thin out secretions * Duonebs PRN shortness of breathe * monitor and may need suctioning PRN * Completed decannulation on 10/30/16; saturating well * Consulted speech-->patient not appropriate for speak-easy valve status post decannulation; encourage speaking * Discussed with ENT-->outpatient due to mild vocal cord dysfunction * Discussed with swallow-->patient has a strong cough, can be started on pleasure feedings and/or pureed diet to try to transition off peg Status: resolved (6) CVA (cerebral vascular accident) Assessment & Plan: * Hemorrhagic stroke with associated hypotension and basal ganglia involvement on admission * [id number]:5.7 * Cholestrol: 202, TG: LDL:130 HDL:52 * Aspirin 81mg PO daily * Blood pressure control monitoring * Start on Crestor 5mg POqHS * Patient is tolerating PO feeds and medications (7) Sepsis (resolved) Assessment & Plan: * Per 11/05; Fever 103F and associated leukocytosis: 21.8; infection: pneumonia ( which was treated with Meropenem during the course of hospitalization) * Infectious disease on board (Dr. Chavez) * 10/21 Sputum-Klebsiella (sensitive to Maxipime) * 10/25 Serratia and Enterobacter (sensitive to Maxipime) * 10/31 Sputum: normal= * 11/06: Enterobacter which is sensitive Meropenem (switch from Maxipime) * 11/06 Urine culture: yeast * 11/09 Urine culture: yeast * 11/09 Blood culture: no growth for 5 days X2 * 11/21 Urine culture: yeast * 11/26: Urine culture: Pseudomonas * 12/08: Urine culture: VRE UTI (patient not septic at time of current UTI) * 12/21: Urine culture: no growth * Patient is off IV abx since 12/21/16 (8) Urinary Tract Infection (current) * 12/08/16 VRE UTI * Multiple UTI infections * Yeast urine treated with Diflucan during hospitalization * Pseudomonas treated with Cipro during hospitalization * VRE UTI currently treated with Tigecycline and contact isolation * Discontinue [place] catheter * Infectious disease (Dr. Chavez) on board * Florastor 250mg PO bid * 12/08: Urine culture: VRE UTI (patient not septic at time of current UTI) * 12/21: Urine culture: no growth * Patient is off IV abx since 12/21/16 (9) Hypernatremia * normalized * Patient is not receiving free fluid flushes (10) Prophylactic care * s/p peg placement-->will require follow-up with GI outpatient to remove peg tube * Weaned off vent; saturating well s/p decanulation * Continue with aggressive PT/OT-->latest PT (12/19):Pt was motivated during PT. Pt was able to take steps with the rolling walker inspite of unsteadiness and postural sway. Placed back to bed with the head of the bed elevated to 60 degrees. Pt was instructed to call nursing when going out of bed for safety. ( acute rehab vs [facility]) * Patient is tolerating PO feeds and medication per nursing * Patient is bridge of Lovenox to Coumadin for DVT+, Ordered for Coumadin tonight Disposition * Patient is tolerating PO feeding and PO medications, discussed with nursing staff. Will need outpatient followup for peg tube removal. * Patient is doing remarkable. Patient will need continue aggressive PT/OT, started on rolling walker per PT.
--- NOTE | 2016-12-24 01:41 | CP.PCM.PN ---
<LuisaElizabeth - Last Filed: 12/24/16 02:01> Subjective - Date & Time of Evaluation Date of Evaluation: 12/24/16 Time of Evaluation: 02:01 - Subjective Subjective: PGY1 Medicine Note for Dr. Vidal Patient seen and examined at beside, sitting up, watching TV. Patient denied headache, dizziness, fever, chills, chest pain, palpitations, SOB, cough, abdominal pain, nausea, vomiting, bowel/bladder complaints, pain in his legs. As per patient and nursing, patient has been eating by mouth and has a strong appetite. Objective - Vital Signs/Intake and Output Vital Signs (last 24 hours): Temp Pulse Resp BP Pulse Ox 98.1 F 85 20 128/74 97 12/23/16 16:00 12/23/16 16:00 12/23/16 16:00 12/23/16 16:00 12/23/16 16:00 Intake and Output: 12/23/16 12/24/16 18:59 06:59 Intake Total 360 Output Total 800 Balance -440 - Medications Medications: Current Medications Acetaminophen (Tylenol 325mg Tab) 650 mg PO Q6 PRN PRN Reason: Fever >100.4 F Last Admin: 11/29/16 13:19 Dose: 650 mg Amiodarone HCl (Cordarone) 200 mg PO DAILY [facility] Last Admin: 12/23/16 10:43 Dose: 200 mg Amlodipine Besylate (Norvasc) 10 mg PO DAILY [facility] Last Admin: 12/23/16 10:43 Dose: 10 mg Aspirin (Aspirin Chewable) 81 mg PO DAILY [facility] Last Admin: 12/23/16 10:42 Dose: 81 mg Enoxaparin Sodium (Lovenox) 60 mg SC Q12 [facility] Last Admin: 12/23/16 22:00 Dose: 60 mg Famotidine (Pepcid) 20 mg PO DAILY [facility] Last Admin: 12/23/16 10:43 Dose: 20 mg Mupirocin (Bactroban 2% Nasal) 0.5 gm FAN BID [facility] Last Admin: 12/23/16 17:52 Dose: 0.5 gm Rosuvastatin Calcium (Crestor) 5 mg PO HS [facility] Last Admin: 12/23/16 22:00 Dose: 5 mg Saccharomyces Boulardii (Florastor) 250 mg PO BID [facility] Last Admin: 12/23/16 17:52 Dose: 250 mg - Labs Labs: 12/23/16 07:05 12/23/16 07:05 PT 17.5 SECONDS (9.7-12.2) H 12/23/16 07:05 INR 1.5 12/23/16 07:05 APTT 47 SECONDS (21-34) H 12/23/16 07:05 - Constitutional Appears: Non-toxic, No Acute Distress - Head Exam Head Exam: NORMAL INSPECTION - Eye Exam Eye Exam: Normal appearance. absent: Conjunctival injection, Scleral icterus - ENT Exam ENT Exam: Mucous Membranes Moist - Neck Exam Neck Exam: Normal Inspection - Respiratory Exam Respiratory Exam: Clear to Ausculation Bilateral, NORMAL BREATHING PATTERN. absent: Rales, Rhonchi, Wheezes - Cardiovascular Exam Cardiovascular Exam: +S1, +S2 - GI/Abdominal Exam GI & Abdominal Exam: Soft, Normal Bowel Sounds. absent: Tenderness Additional comments: PEG tube in place- no erythema noted at site - Extremities Exam Extremities Exam: Normal Inspection - Neurological Exam Neurological Exam: Alert, Awake, Oriented x3 - Psychiatric Exam Psychiatric exam: Normal Affect, Normal Mood - Skin Skin Exam: Dry, Intact, Normal Color, Warm Assessment and Plan - Assessment and Plan (Free Text) Assessment: 56yo M with unknown past medical history presenting for medical evaluation of intracranial bleed. Plan: (1) Intracranial hemorrhage 10/18 CT Head: Left basal ganglia acute hemorrhage, possibly hypertensive with associated intraventricular hemorrhage and mass effect upon the left lateral aspect of the 3rd ventricle with the tip shift of the 3rd ventricle towards the right side. No generalized midline shift. Air-fluid level in sphenoid sinus common nonspecific. Please correlate for concern regarding acute sinusitis. Mild involutional changes. 10/19 CT Head: little interval change in the known 2.0 x 2.7 acute hematoma in left thalamus with intra ventricular extension of hemorrhage. Interval mild worsening of obstructive hydrocephalus. 10/24 CT Head: little interval change in the size of left thalamic hemorrhage 2.4x2.9 cm with intraventricular extension of hemorrhage and mild obstructive hydrocephalus. 2 mm midline shift from left to right with no evidence of herniation. Near complete resolution of hemorrhage within 4th ventricle. 11/03/16 CT Head; Interval decrease in size and density left basal ganglia hematoma; well-circumscribed peripheral rim of low attentuation edema about hematoma; combination of brain edema and brain necrosis; intraventricular hemorrhage has diminished. Ventricles hae also decreased in size temporal horns and atria remain prominent. Persistent compression of the 3rd and left lateral ventricle 12/16/16 CT Head: no acute findings noted * Neurosurgery per initial consult-->patient's prognosis dismal at beginning of admission * Neurology (Dr. Simpson) on board-->per 10/26 note: patient has attained maximum response from neuro point of view from this admission; keep nutritional status optimized and avoid infections; treat with peg/trach; no antiplatelets for next 4-6 weeks (maintain MAP ~100) * On baby aspirin 81mg PO daily; discussed with neurology on 11/22/16 * Patient started on therapeutic Lovenox for DVT+, will follow-up INR * Pt is ok to start warfarin per neuro * will resume warfarin 7.5 mg tonight f/u inr tomorrow (2) Atrial Flutter * Cardiology consulted (Dr. Brock) on board; case discussed * elevated D-dimer-->Ct angio negative for PE * 12/12/16 tachycardia-->Adenosine given --> Atrial flutter--> did not improve with digoxin, cardizem, and amiodarone, requiring cardioversion, which converted * Thyroid studies negative * Amiodarone 200mg PO daily * has been in NSR * we will renew tele (3) Hypertension * monitor vital signs * controlled * elevated yesterday afternoon-->restarted Norvasc 5mg PO daily, we will increase to 10 daily (4) Deep vein thrombosis * per 12/12/16 Doppler: right peroneal vein DVT+ * Patient is currently on therapuetic lovenox and warfarin as well * pt is ok to start warfarin per neuro Dr. Simpson * warfarin 7.5 mg PO tonight (5) Dyslipidemia -continue crestor 5 daily (6) Acute respiratory failure (resolved) * s/p tracheostomy 10/28/16 * Patient completed trach collar. * Weaning completed; off ventilator * Saturating well. * Monitor dressing change of trach site * Pulmonary (Dr. Bailey) consulted to assist with weaning protocol * Completed decannulation on 10/30/16; saturating well * Consulted speech-->patient not appropriate for speak-easy valve status post decannulation; encourage speaking * Discussed with ENT-->outpatient due to mild vocal cord dysfunction * Discussed with swallow-->patient has a strong cough, can be started on pleasure feedings and/or pureed diet to try to transition off peg * pt now on regular diet, tolerating well * we will f.u with gi about removal of peg * calorie count pending (6) CVA * Hemorrhagic stroke with associated hypotension and basal ganglia involvement on admission * hemoglobin a1c:5.7 * Cholesterol: 202, LDL:130 HDL:52 * Aspirin 81mg PO daily * Blood pressure control monitoring * continue Crestor 5mg PO qHS * s/p peg placement (7) Sepsis (resolved) Per 11/05; Fever 103F and associated leukocytosis: 21.8; infection: pneumonia ( which was treated with Meropenem during the course of hospitalization) Infectious disease on board (Dr. Chavez) 10/21 Sputum-Klebsiella (sensitive to Maxipime) 10/25 Serratia and Enterobacter (sensitive to Maxipime) 10/31 Sputum: normal 11/06: Enterobacter which is sensitive Meropenem (switch from Maxipime) 11/06 Urine culture: yeast 11/09 Urine culture: yeast 11/09 Blood culture: no growth for 5 days X2 11/21 Urine culture: yeast 11/26: Urine culture: Pseudomonas 12/08: Urine culture: VRE UTI (patient not septic at time of current UTI) -repeat urine culture shows contamination, urine culture 12/21 negative -continue tylenol PRN for fevers (8) Urinary Tract Infection (current) * 12/08/16 VRE UTI * Multiple UTI infections * Yeast urine treated with Diflucan during hospitalization * Pseudomonas treated with Cipro during hospitalization * VRE UTI currently treated with Tigecycline and contact isolation * [place] condom catheter changed recently * Infectious disease (Dr. Chavez) on board * Tigecycline 50mg IV Q 12hours (active since 12/11/16), dc today * Florastor 250mg PO bid * Monitor LFTS/renal function * dumas has been discontinued * repeat urine negative, tigecycline has been discontinued * will follow up about dc contact precautions (7) Hypernatremia -resolved (8) Prophylactic care * s/p peg placement * Weaned off vent; saturating well s/p decannulation * Continue with aggressive PT/OT-->latest PT noted recommending for subacute/ LTAC * PT/OT * Monitor calorie count * Patient is on therapeutic lovenox for DVT+ first time, follow-up INR, warfarin 7.5 as well tonight * pepcid 20 PO daily Disposition * repeat urine negative. * Ordered for calorie count * Will need anticoagulation for for DVT+ * Pending insurance for [facility] for rehabilitation and peg feedings, will need constant monitoring. Patient currently wears mittens to prevent him from pulling on his tubes and is unsafe for home. Will need to clarify with family regarding the type of care patient will need with both patient's son and daughters Will discuss plan w/ Dr. Marcy Moran PGY1 <Apple Vidal V - Last Filed: 12/24/16 16:41> Objective - Vital Signs/Intake and Output Vital Signs (last 24 hours): Temp Pulse Resp BP Pulse Ox 98.3 F 88 20 112/70 100 12/24/16 16:07 12/24/16 16:07 12/24/16 16:07 12/24/16 16:07 12/24/16 16:07 Intake and Output: 12/24/16 12/24/16 06:59 18:59 Intake Total 360 Output Total 1150 Balance -790 - Medications Medications: Current Medications Acetaminophen (Tylenol 325mg Tab) 650 mg PO Q6 PRN PRN Reason: Fever >100.4 F Last Admin: 11/29/16 13:19 Dose: 650 mg Amiodarone HCl (Cordarone) 200 mg PO DAILY [facility] Last Admin: 12/24/16 09:37 Dose: 200 mg Amlodipine Besylate (Norvasc) 10 mg PO DAILY [facility] Last Admin: 12/24/16 09:37 Dose: 10 mg Aspirin (Aspirin Chewable) 81 mg PO DAILY [facility] Last Admin: 12/24/16 09:37 Dose: 81 mg Famotidine (Pepcid) 20 mg PO DAILY [facility] Last Admin: 12/24/16 09:37 Dose: 20 mg Mupirocin (Bactroban 2% Nasal) 0.5 gm FAN BID [facility] Last Admin: 12/24/16 09:38 Dose: 0.5 gm Rosuvastatin Calcium (Crestor) 5 mg PO HS [facility] Last Admin: 12/23/16 22:00 Dose: 5 mg Saccharomyces Boulardii (Florastor) 250 mg PO BID [facility] Last Admin: 12/24/16 09:38 Dose: 250 mg Warfarin Sodium (Coumadin) 5 mg PO 1800 OMAR Stop: 12/24/16 18:01 - Labs Labs: 12/24/16 07:15 12/24/16 07:15 PT 24.9 SECONDS (9.7-12.2) H D 12/24/16 07:15 INR 2.2 D 12/24/16 07:15 APTT 47 SECONDS (21-34) H 12/23/16 07:05 Attending/Attestation - Attestation I have personally seen and examined this patient.: Yes I have fully participated in the care of the patient.: Yes I have reviewed all pertinent clinical information, including history, physical exam and plan: Yes Notes (Text): Patient seen, examined and case discussed with day-time resident. Patient see at bedside. Patient denies acute complaints. Discontinue contact isolation. Patient's INR is therapeutic for DVT+. Discontinue Lovenox. Discussed with patient at bedside. Patient's home requires him to use stairs. Will need to discuss with family regarding structure regarding stair case because will need staircase training. Assessment/Plan (1) Intracranial hemorrhage Assessment & Plan: 10/18 CT Head: Left basal ganglia acute hemorrhage, possibly hypertensive with associated intraventricular hemorrhage and mass effect upon the left lateral aspect of the 3rd ventricle with the tip shift of the 3rd ventricle towards the right side. No generalized midline shift. Air-fluid level in sphenoid sinus common nonspecific. Please correlate for concern regarding acute sinusitis. Mild involutional changes. 10/19 CT Head: little interval change in the known 2.0 x 2.7 acute hematoma in left thalamus with intra ventricular extension of hemorrhage. Interval mild worsening of obstructive hydrocephalus. 10/24 CT Head: little interval change in the size of left thalamic hemorrhage 2.4x2.9 cm with intraventricular extension of hemorrhage and mild obstructive hydrocephalus. 2 mm midline shift from left to right with no evidence of herniation. Near complete resolution of hemorrhage within 4th ventricle. 11/03/16 CT Head; Interval decrease in size and density left basal ganglia hematoma; well-circumscribed peripheral rim of low attentuation edema about hematoma; combination of brain edema and brain necrosis; intraventricular hemorrhage has diminished. Ventricles hae also decreased in size temporal horns and atria remain prominent. Persistent compression of the 3rd and left lateral ventricle 12/16/16 CT Head: no acute findings noted * Neurosurgery per initial consult-->patient's prognosis dismal at beginning of admission * Neurology (Dr. Simpson) on board-->per 10/26 note: patient has attained maximum response from neuro point of view from this admission; keep nutritional status and avoid infectious; treat with peg/trach; no antiplatelets for next 4-6 weeks (; maintain MAP ~100) * On baby aspirin 81mg PO daily; discussed with neurology with 11/22/16 * Patient is therapeutic for 1st time DVT Status: Chronic (2) Atrial Flutter Assessment & Plan: * Cardiology consulted (Dr. Brock) on board; case discussed * elevated D-dimer-->Ct angio negative for PE * 12/12/16 tachycardia-->Adenosine given --> Atrial flutter--> did not improve with digoxin, cardizem, and amiodarone, requiring cardioversion, which converted * Cardiology consulted (Dr. Brock) on board; case discussed * Thyroid studies negative * Amiodarone 200mg PO daily (3) Hypertension Assessment & Plan: * monitor vital signs * controlled * Norvasc 10mg PO daily (4) Deep vein thrombosis * per 12/12/16 Doppler: right peroneal vein DVT+ * Patient is therapuetic. will discontinue therapuetic Lovenox * Started on Coumadin 5mg PO tonight (5) Acute respiratory failure (resolved) Assessment & Plan: * s/p tracheostomy 10/28/16 * Patient completed trach collar. * Weaning completed; off ventilator * Saturating well. * Monitor dressing change of trach site * Pulmonary (Dr. Bailey) consulted to assist with weaning protocol * Mucomyst PRN to help thin out secretions * Duonebs PRN shortness of breathe * monitor and may need suctioning PRN * Completed decannulation on 10/30/16; saturating well * Consulted speech-->patient not appropriate for speak-easy valve status post decannulation; encourage speaking * Discussed with ENT-->outpatient due to mild vocal cord dysfunction * Discussed with swallow-->patient has a strong cough, can be started on pleasure feedings and/or pureed diet to try to transition off peg Status: resolved (6) CVA (cerebral vascular accident) Assessment & Plan: * Hemorrhagic stroke with associated hypotension and basal ganglia involvement on admission * [id number]:5.7 * Cholestrol: 202, TG: LDL:130 HDL:52 * Aspirin 81mg PO daily * Blood pressure control monitoring * Start on Crestor 5mg POqHS * Patient is tolerating PO feeds and medications (7) Sepsis (resolved) Assessment & Plan: * Per 11/05; Fever 103F and associated leukocytosis: 21.8; infection: pneumonia ( which was treated with Meropenem during the course of hospitalization) * Infectious disease on board (Dr. Chavez) * 10/21 Sputum-Klebsiella (sensitive to Maxipime) * 10/25 Serratia and Enterobacter (sensitive to Maxipime) * 10/31 Sputum: normal= * 11/06: Enterobacter which is sensitive Meropenem (switch from Maxipime) * 11/06 Urine culture: yeast * 11/09 Urine culture: yeast * 11/09 Blood culture: no growth for 5 days X2 * 11/21 Urine culture: yeast * 11/26: Urine culture: Pseudomonas * 12/08: Urine culture: VRE UTI (patient not septic at time of current UTI) * 12/21: Urine culture: no growth * Patient is off IV abx, * D/C contact isolation (8) Urinary Tract Infection (current) * 12/08/16 VRE UTI * Multiple UTI infections * Yeast urine treated with Diflucan during hospitalization * Pseudomonas treated with Cipro during hospitalization * VRE UTI currently treated with Tigecycline and contact isolation * Discontinue [place] catheter * Infectious disease (Dr. Chavez) on board * Florastor 250mg PO bid * 12/08: Urine culture: VRE UTI (patient not septic at time of current UTI) * 12/21: Urine culture: no growth * Patient is off IV abx, * D/C contact isolation (9) Hypernatremia * normalized * Patient is not receiving free fluid flushes (10) Prophylactic care * s/p peg placement-->will require follow-up with GI outpatient to remove peg tube * Weaned off vent; saturating well s/p decanulation * Continue with aggressive PT/OT-->latest PT (12/19):Pt was motivated during PT. Pt was able to take steps with the rolling walker inspite of unsteadiness and postural sway. Placed back to bed with the head of the bed elevated to 60 degrees. Pt was instructed to call nursing when going out of bed for safety. ( acute rehab vs [facility]) * Patient is tolerating PO feeds and medication per nursing * Patient is therapuetic on Coumadin for DVT+, Ordered for Coumadin tonight Disposition * Patient is tolerating PO feeding and PO medications, discussed with nursing staff. Will need outpatient followup for peg tube removal. * Patient is doing remarkable. Patient will need continue aggressive PT/OT, started on rolling walker per PT. Patient's home has stair cases. Will need to determine how many stairs and patient to show progress w stairs.
[2016-12-24 07:26] LABS: BASO % 0.5 % (0.0-2.0); EOS # 0.1 K/uL (0.0-0.7); EOS % 1.8 % (0.0-4.0); HEMATOCRIT 32.3 % (35.0-51.0); LYMPH # 2.6 K/uL (1.0-4.3); LYMPH % 35.6 % (20.0-40.0); MEAN CELL VOLUME 83.1 fL (80.0-94.0); MEAN CORPUSCULAR HEMOGLOBIN 26.7 pg (27.0-31.0); MEAN CORPUSCULAR HGB CONC 32.1 g/dL (33.0-37.0); MEAN PLATELET VOLUME 9.2 fL (7.2-11.7); MONO # 0.5 K/uL (0.0-0.8); MONO % 6.2 % (0.0-10.0); RED CELL DISTRIBUTION WIDTH 16.4 % (11.5-14.5); WHITE BLOOD COUNT 7.4 K/uL (4.8-10.8)
[2016-12-24 07:47] LABS: INR 2.2
[2016-12-24 07:58] LABS: CHLORIDE 98 mmol/L (98-107); POTASSIUM 3.9 mmol/L (3.6-5.2); SODIUM 133 mmol/L (132-148)
[2016-12-24 08:00] LABS: AST/SGOT 37 U/L (17-59); BILIRUBIN,TOTAL 0.7 mg/dL (0.2-1.3); CARBON DIOXIDE 27 mmol/L (22-30); GFR AFRICAN-AMERICAN > 60
[2016-12-24 08:01] LABS: ALB/GLOB RATIO 0.8 (1.0-2.1); ALKALINE PHOSPHATASE 83 U/L (38-126); ALT/SGPT 51 U/L (21-72); BLOOD UREA NITROGEN 13 mg/dL (9-20); GLUCOSE,RANDOM 73 mg/dL (75-110); TOTAL PROTEIN 5.5 g/dL (6.3-8.3)
[2016-12-24] MEDS: Enoxaparin 60 mg Syringe SC SCH (09:37)
[2016-12-24] MEDS: Saccharomyces Boulardi 250 mg Cap PO SCH ×2 (09:38→17:33)
[2016-12-24] MEDS: Mupirocin 2% Ointment (NASAL) NAS SCH ×2 (09:38→17:33)
--- NOTE | 2016-12-25 03:15 | CP.PCM.PN ---
<LuisaElizabeth - Last Filed: 12/25/16 03:12> Subjective - Date & Time of Evaluation Date of Evaluation: 12/25/16 Time of Evaluation: 03:12 - Subjective Subjective: PGY1 Medicine Note for Dr. Vidal Patient seen and examined at beside. Patient denied headache, dizziness, fever, chills, chest pain, palpitations, SOB, cough, abdominal pain, nausea, vomiting, bowel/bladder complaints, pain in his legs. Patient has been eating by mouth and has a strong appetite. Objective - Vital Signs/Intake and Output Vital Signs (last 24 hours): Temp Pulse Resp BP Pulse Ox 98.0 F 73 20 115/72 100 12/24/16 23:20 12/24/16 23:30 12/24/16 23:20 12/24/16 23:20 12/24/16 23:20 Intake and Output: 12/24/16 12/25/16 18:59 06:59 Intake Total 420 Output Total 400 Balance 20 - Medications Medications: Current Medications Acetaminophen (Tylenol 325mg Tab) 650 mg PO Q6 PRN PRN Reason: Fever >100.4 F Last Admin: 11/29/16 13:19 Dose: 650 mg Amiodarone HCl (Cordarone) 200 mg PO DAILY [facility] Last Admin: 12/24/16 09:37 Dose: 200 mg Amlodipine Besylate (Norvasc) 10 mg PO DAILY [facility] Last Admin: 12/24/16 09:37 Dose: 10 mg Aspirin (Aspirin Chewable) 81 mg PO DAILY [facility] Last Admin: 12/24/16 09:37 Dose: 81 mg Famotidine (Pepcid) 20 mg PO DAILY [facility] Last Admin: 12/24/16 09:37 Dose: 20 mg Mupirocin (Bactroban 2% Nasal) 0.5 gm FAN BID [facility] Last Admin: 12/24/16 17:33 Dose: 0.5 gm Rosuvastatin Calcium (Crestor) 5 mg PO HS [facility] Last Admin: 12/24/16 21:14 Dose: 5 mg Saccharomyces Boulardii (Florastor) 250 mg PO BID [facility] Last Admin: 12/24/16 17:33 Dose: 250 mg - Labs Labs: 12/24/16 07:15 12/24/16 07:15 PT 24.9 SECONDS (9.7-12.2) H D 12/24/16 07:15 INR 2.2 D 12/24/16 07:15 APTT 47 SECONDS (21-34) H 12/23/16 07:05 - Constitutional Appears: Non-toxic, No Acute Distress - Head Exam Head Exam: NORMAL INSPECTION - Eye Exam Eye Exam: Normal appearance. absent: Conjunctival injection, Scleral icterus - ENT Exam ENT Exam: Mucous Membranes Moist - Neck Exam Neck Exam: Normal Inspection. absent: Tenderness - Respiratory Exam Respiratory Exam: Clear to Ausculation Bilateral, NORMAL BREATHING PATTERN. absent: Rales, Rhonchi, Wheezes - Cardiovascular Exam Cardiovascular Exam: +S1, +S2 - GI/Abdominal Exam GI & Abdominal Exam: Soft, Normal Bowel Sounds. absent: Tenderness Additional comments: PEG tube in place- no erythema noted at site - Extremities Exam Extremities Exam: Normal Inspection - Neurological Exam Neurological Exam: Alert, Awake, Oriented x3 - Psychiatric Exam Psychiatric exam: Normal Affect, Normal Mood - Skin Skin Exam: Dry, Intact, Normal Color, Warm Assessment and Plan - Assessment and Plan (Free Text) Assessment: 56yo M with unknown past medical history presenting for medical evaluation of intracranial bleed. Plan: (1) Intracranial hemorrhage 10/18 CT Head: Left basal ganglia acute hemorrhage, possibly hypertensive with associated intraventricular hemorrhage and mass effect upon the left lateral aspect of the 3rd ventricle with the tip shift of the 3rd ventricle towards the right side. No generalized midline shift. Air-fluid level in sphenoid sinus common nonspecific. Please correlate for concern regarding acute sinusitis. Mild involutional changes. 10/19 CT Head: little interval change in the known 2.0 x 2.7 acute hematoma in left thalamus with intra ventricular extension of hemorrhage. Interval mild worsening of obstructive hydrocephalus. 10/24 CT Head: little interval change in the size of left thalamic hemorrhage 2.4x2.9 cm with intraventricular extension of hemorrhage and mild obstructive hydrocephalus. 2 mm midline shift from left to right with no evidence of herniation. Near complete resolution of hemorrhage within 4th ventricle. 11/03/16 CT Head; Interval decrease in size and density left basal ganglia hematoma; well-circumscribed peripheral rim of low attentuation edema about hematoma; combination of brain edema and brain necrosis; intraventricular hemorrhage has diminished. Ventricles hae also decreased in size temporal horns and atria remain prominent. Persistent compression of the 3rd and left lateral ventricle 12/16/16 CT Head: no acute findings noted * Neurosurgery per initial consult-->patient's prognosis dismal at beginning of admission * Neurology (Dr. Simpson) on board-->per 10/26 note: patient has attained maximum response from neuro point of view from this admission; keep nutritional status optimized and avoid infections; treat with peg/trach; no antiplatelets for next 4-6 weeks (maintain MAP ~100) * On baby aspirin 81mg PO daily; discussed with neurology on 11/22/16 * Patient started on therapeutic Lovenox for DVT+, will follow-up INR * Pt is ok to start warfarin per neuro * will resume warfarin 7.5 mg tonight f/u inr tomorrow (2) Atrial Flutter * Cardiology consulted (Dr. Brock) on board; case discussed * elevated D-dimer-->Ct angio negative for PE * 12/12/16 tachycardia-->Adenosine given --> Atrial flutter--> did not improve with digoxin, cardizem, and amiodarone, requiring cardioversion, which converted * Thyroid studies negative * Amiodarone 200mg PO daily * has been in NSR * we will renew tele (3) Hypertension * monitor vital signs * controlled * elevated yesterday afternoon-->restarted Norvasc 5mg PO daily, we will increase to 10 daily (4) Deep vein thrombosis * per 12/12/16 Doppler: right peroneal vein DVT+ * Patient is currently on therapuetic lovenox and warfarin as well * pt is ok to start warfarin per neuro Dr. Simpson * warfarin 7.5 mg PO tonight (5) Dyslipidemia -continue crestor 5 daily (6) Acute respiratory failure (resolved) * s/p tracheostomy 10/28/16 * Patient completed trach collar. * Weaning completed; off ventilator * Saturating well. * Monitor dressing change of trach site * Pulmonary (Dr. Bailey) consulted to assist with weaning protocol * Completed decannulation on 10/30/16; saturating well * Consulted speech-->patient not appropriate for speak-easy valve status post decannulation; encourage speaking * Discussed with ENT-->outpatient due to mild vocal cord dysfunction * Discussed with swallow-->patient has a strong cough, can be started on pleasure feedings and/or pureed diet to try to transition off peg * pt now on regular diet, tolerating well * we will f.u with gi about removal of peg * calorie count pending (6) CVA * Hemorrhagic stroke with associated hypotension and basal ganglia involvement on admission * hemoglobin a1c:5.7 * Cholesterol: 202, LDL:130 HDL:52 * Aspirin 81mg PO daily * Blood pressure control monitoring * continue Crestor 5mg PO qHS * s/p peg placement (7) Sepsis (resolved) Per 11/05; Fever 103F and associated leukocytosis: 21.8; infection: pneumonia ( which was treated with Meropenem during the course of hospitalization) Infectious disease on board (Dr. Chavez) 10/21 Sputum-Klebsiella (sensitive to Maxipime) 10/25 Serratia and Enterobacter (sensitive to Maxipime) 10/31 Sputum: normal 11/06: Enterobacter which is sensitive Meropenem (switch from Maxipime) 11/06 Urine culture: yeast 11/09 Urine culture: yeast 11/09 Blood culture: no growth for 5 days X2 11/21 Urine culture: yeast 11/26: Urine culture: Pseudomonas 12/08: Urine culture: VRE UTI (patient not septic at time of current UTI) -repeat urine culture shows contamination, urine culture 12/21 negative -continue tylenol PRN for fevers (8) Urinary Tract Infection (current) * 12/08/16 VRE UTI * Multiple UTI infections * Yeast urine treated with Diflucan during hospitalization * Pseudomonas treated with Cipro during hospitalization * VRE UTI currently treated with Tigecycline and contact isolation * [place] condom catheter changed recently * Infectious disease (Dr. Chavez) on board * Tigecycline 50mg IV Q 12hours (active since 12/11/16), dc today * Florastor 250mg PO bid * Monitor LFTS/renal function * dumas has been discontinued * repeat urine negative, tigecycline has been discontinued * will follow up about dc contact precautions (7) Hypernatremia -resolved (8) Prophylactic care * s/p peg placement * Weaned off vent; saturating well s/p decannulation * Continue with aggressive PT/OT-->latest PT noted recommending for subacute/ LTAC * PT/OT * Monitor calorie count * INR is therapeutic- lovenox discontinued * coumadin tonight * pepcid 20 PO daily Disposition * repeat urine negative. * Ordered for calorie count * Will need anticoagulation for for DVT+ * Pending insurance for [facility] facility for rehabilitation and peg feedings, will need constant monitoring. Patient currently wears mittens to prevent him from pulling on his tubes and is unsafe for home. Will need to clarify with family regarding the type of care patient will need with both patient's son and daughters Will discuss plan w/ Dr. Marcy Moran PGY1 <Apple Vidal V - Last Filed: 12/25/16 22:33> Objective - Vital Signs/Intake and Output Vital Signs (last 24 hours): Temp Pulse Resp BP Pulse Ox 98.4 F 83 20 133/83 99 12/25/16 16:06 12/25/16 16:06 12/25/16 16:06 12/25/16 16:06 12/25/16 16:06 - Medications Medications: Current Medications Acetaminophen (Tylenol 325mg Tab) 650 mg PO Q6 PRN PRN Reason: Fever >100.4 F Last Admin: 11/29/16 13:19 Dose: 650 mg Amiodarone HCl (Cordarone) 200 mg PO DAILY [facility] Last Admin: 12/25/16 09:21 Dose: 200 mg Amlodipine Besylate (Norvasc) 10 mg PO DAILY [facility] Last Admin: 12/25/16 09:22 Dose: 10 mg Aspirin (Aspirin Chewable) 81 mg PO DAILY [facility] Last Admin: 12/25/16 09:21 Dose: 81 mg Famotidine (Pepcid) 20 mg PO DAILY [facility] Last Admin: 12/25/16 09:21 Dose: 20 mg Mupirocin (Bactroban 2% Nasal) 0.5 gm FAN BID [facility] Last Admin: 12/25/16 18:21 Dose: 0.5 gm Rosuvastatin Calcium (Crestor) 5 mg PO HS [facility] Last Admin: 12/25/16 21:40 Dose: 5 mg Saccharomyces Boulardii (Florastor) 250 mg PO BID [facility] Last Admin: 12/25/16 18:21 Dose: 250 mg - Labs Labs: 12/25/16 06:40 12/25/16 06:40 PT 33.1 SECONDS (9.7-12.2) H* D 12/25/16 06:40 INR 2.8 D 12/25/16 06:40 APTT 55 SECONDS (21-34) H D 12/25/16 06:40 Attending/Attestation - Attestation I have personally seen and examined this patient.: Yes I have fully participated in the care of the patient.: Yes I have reviewed all pertinent clinical information, including history, physical exam and plan: Yes Notes (Text): Patient seen, examined and case discussed with day-time resident. Patient see at bedside. Patient denies acute complaints. Discontinue contact isolation. Patient's INR is therapeutic for DVT+. Patient given Coumadin 2mg PO tonight. Follow-up INR Discussed with patient at bedside. Patient's home requires him to use stairs. Will need to discuss with family regarding structure regarding stair case because will need staircase training. Assessment/Plan (1) Intracranial hemorrhage Assessment & Plan: 10/18 CT Head: Left basal ganglia acute hemorrhage, possibly hypertensive with associated intraventricular hemorrhage and mass effect upon the left lateral aspect of the 3rd ventricle with the tip shift of the 3rd ventricle towards the right side. No generalized midline shift. Air-fluid level in sphenoid sinus common nonspecific. Please correlate for concern regarding acute sinusitis. Mild involutional changes. 10/19 CT Head: little interval change in the known 2.0 x 2.7 acute hematoma in left thalamus with intra ventricular extension of hemorrhage. Interval mild worsening of obstructive hydrocephalus. 10/24 CT Head: little interval change in the size of left thalamic hemorrhage 2.4x2.9 cm with intraventricular extension of hemorrhage and mild obstructive hydrocephalus. 2 mm midline shift from left to right with no evidence of herniation. Near complete resolution of hemorrhage within 4th ventricle. 11/03/16 CT Head; Interval decrease in size and density left basal ganglia hematoma; well-circumscribed peripheral rim of low attentuation edema about hematoma; combination of brain edema and brain necrosis; intraventricular hemorrhage has diminished. Ventricles hae also decreased in size temporal horns and atria remain prominent. Persistent compression of the 3rd and left lateral ventricle 12/16/16 CT Head: no acute findings noted * Neurosurgery per initial consult-->patient's prognosis dismal at beginning of admission * Neurology (Dr. Simpson) on board-->per 10/26 note: patient has attained maximum response from neuro point of view from this admission; keep nutritional status and avoid infectious; treat with peg/trach; no antiplatelets for next 4-6 weeks (; maintain MAP ~100) * On baby aspirin 81mg PO daily; discussed with neurology with 4/11/17 * Patient is therapeutic for 1st time DVT-->given Coumadin for tonight Status: Chronic (2) Atrial Flutter Assessment & Plan: * Cardiology consulted (Dr. Brock) on board; case discussed * elevated D-dimer-->Ct angio negative for PE * 12/12/16 tachycardia-->Adenosine given --> Atrial flutter--> did not improve with digoxin, cardizem, and amiodarone, requiring cardioversion, which converted * Cardiology consulted (Dr. Brock) on board; case discussed * Thyroid studies negative * Amiodarone 200mg PO daily (3) Hypertension Assessment & Plan: * monitor vital signs * controlled * Norvasc 10mg PO daily (4) Deep vein thrombosis * per 12/12/16 Doppler: right peroneal vein DVT+ * Patient is therapuetic. will discontinue therapuetic Lovenox * Started on Coumadin 2mg PO tonight (5) Acute respiratory failure (resolved) Assessment & Plan: * s/p tracheostomy 10/28/16 * Patient completed trach collar. * Weaning completed; off ventilator * Saturating well. * Monitor dressing change of trach site * Pulmonary (Dr. Bailey) consulted to assist with weaning protocol * Mucomyst PRN to help thin out secretions * Duonebs PRN shortness of breathe * monitor and may need suctioning PRN * Completed decannulation on 10/30/16; saturating well * Consulted speech-->patient not appropriate for speak-easy valve status post decannulation; encourage speaking * Discussed with ENT-->outpatient due to mild vocal cord dysfunction * Discussed with swallow-->patient has a strong cough, can be started on pleasure feedings and/or pureed diet to try to transition off peg Status: resolved (6) CVA (cerebral vascular accident) Assessment & Plan: * Hemorrhagic stroke with associated hypotension and basal ganglia involvement on admission * [id number]:5.7 * Cholestrol: 202, TG: LDL:130 HDL:52 * Aspirin 81mg PO daily * Blood pressure control monitoring * Start on Crestor 5mg POqHS * Patient is tolerating PO feeds and medications (7) Sepsis (resolved) Assessment & Plan: * Per 11/05; Fever 103F and associated leukocytosis: 21.8; infection: pneumonia ( which was treated with Meropenem during the course of hospitalization) * Infectious disease on board (Dr. Chavez) * 10/21 Sputum-Klebsiella (sensitive to Maxipime) * 10/25 Serratia and Enterobacter (sensitive to Maxipime) * 10/31 Sputum: normal= * 11/06: Enterobacter which is sensitive Meropenem (switch from Maxipime) * 11/06 Urine culture: yeast * 11/09 Urine culture: yeast * 11/09 Blood culture: no growth for 5 days X2 * 11/21 Urine culture: yeast * 11/26: Urine culture: Pseudomonas * 12/08: Urine culture: VRE UTI (patient not septic at time of current UTI) * 12/21: Urine culture: no growth * Patient is off IV abx, * D/C contact isolation (8) Urinary Tract Infection (current) * 12/08/16 VRE UTI * Multiple UTI infections * Yeast urine treated with Diflucan during hospitalization * Pseudomonas treated with Cipro during hospitalization * VRE UTI currently treated with Tigecycline and contact isolation * Discontinue [place] catheter * Infectious disease (Dr. Chavez) on board * Florastor 250mg PO bid * 12/08: Urine culture: VRE UTI (patient not septic at time of current UTI) * 12/21: Urine culture: no growth * Patient is off IV abx, * D/C contact isolation (9) Hypernatremia * normalized * Patient is not receiving free fluid flushes (10) Prophylactic care * s/p peg placement-->will require follow-up with GI outpatient to remove peg tube * Weaned off vent; saturating well s/p decanulation * Continue with aggressive PT/OT-->latest PT (12/19):Pt was motivated during PT. Pt was able to take steps with the rolling walker inspite of unsteadiness and postural sway. Placed back to bed with the head of the bed elevated to 60 degrees. Pt was instructed to call nursing when going out of bed for safety. ( acute rehab vs [facility]) * Patient is tolerating PO feeds and medication per nursing * Patient is therapuetic on Coumadin for DVT+, Ordered for Coumadin tonight Disposition * Patient is tolerating PO feeding and PO medications, discussed with nursing staff. Will need outpatient followup for peg tube removal. * Patient is doing remarkable. Patient will need continue aggressive PT/OT, started on rolling walker per PT. Patient's home has stair cases. Will need to determine how many stairs and patient to show progress w stair * Monitor INR for Coumadin dosing .
[2016-12-25 06:48] LABS: BASO % 0.5 % (0.0-2.0); EOS # 0.1 K/uL (0.0-0.7); EOS % 1.6 % (0.0-4.0); HEMATOCRIT 30.9 % (35.0-51.0); LYMPH % 29.7 % (20.0-40.0); MEAN CELL VOLUME 82.8 fL (80.0-94.0); MEAN CORPUSCULAR HEMOGLOBIN 27.1 pg (27.0-31.0); MEAN CORPUSCULAR HGB CONC 32.7 g/dL (33.0-37.0); MEAN PLATELET VOLUME 8.9 fL (7.2-11.7); MONO # 0.5 K/uL (0.0-0.8); MONO % 7.1 % (0.0-10.0); RED CELL DISTRIBUTION WIDTH 16.6 % (11.5-14.5); WHITE BLOOD COUNT 6.8 K/uL (4.8-10.8)
[2016-12-25 07:03] LABS: INR 2.8
[2016-12-25 07:09] LABS: CHLORIDE 100 mmol/L (98-107)
[2016-12-25 07:10] LABS: POTASSIUM 3.9 mmol/L (3.6-5.2); SODIUM 134 mmol/L (132-148)
[2016-12-25 07:12] LABS: ALB/GLOB RATIO 0.7 (1.0-2.1); AST/SGOT 45 U/L (17-59); BILIRUBIN,TOTAL < 0.1 mg/dL (0.2-1.3); CARBON DIOXIDE 29 mmol/L (22-30); GFR AFRICAN-AMERICAN > 60; TOTAL PROTEIN 5.7 g/dL (6.3-8.3)
[2016-12-25 07:13] LABS: ALKALINE PHOSPHATASE 83 U/L (38-126); ALT/SGPT 70 U/L (21-72); BLOOD UREA NITROGEN 18 mg/dL (9-20); CALCIUM 8.3 mg/dl (8.6-10.4); GLUCOSE,RANDOM 81 mg/dL (75-110)
[2016-12-25] MEDS: Saccharomyces Boulardi 250 mg Cap PO SCH ×2 (09:21→18:21)
[2016-12-25] MEDS: Mupirocin 2% Ointment (NASAL) NAS SCH ×2 (09:22→18:21)
[2016-12-26 06:14] LABS: BASO # 0.1 K/uL (0.0-0.2); BASO % 0.8 % (0.0-2.0); EOS # 0.2 K/uL (0.0-0.7); EOS % 2.3 % (0.0-4.0); HEMATOCRIT 30.7 % (35.0-51.0); LYMPH # 2.4 K/uL (1.0-4.3); LYMPH % 29.3 % (20.0-40.0); MEAN CELL VOLUME 82.7 fL (80.0-94.0); MEAN CORPUSCULAR HEMOGLOBIN 26.9 pg (27.0-31.0); MEAN CORPUSCULAR HGB CONC 32.5 g/dL (33.0-37.0); MEAN PLATELET VOLUME 8.9 fL (7.2-11.7); MONO # 0.6 K/uL (0.0-0.8); MONO % 6.9 % (0.0-10.0); RED CELL DISTRIBUTION WIDTH 16.8 % (11.5-14.5)
[2016-12-26 06:33] LABS: CHLORIDE 100 mmol/L (98-107); POTASSIUM 3.9 mmol/L (3.6-5.2); SODIUM 133 mmol/L (132-148)
[2016-12-26 06:35] LABS: GFR AFRICAN-AMERICAN > 60
[2016-12-26 06:36] LABS: ALB/GLOB RATIO 0.8 (1.0-2.1); ALKALINE PHOSPHATASE 80 U/L (38-126); ALT/SGPT 95 U/L (21-72); AST/SGOT 82 U/L (17-59); BILIRUBIN,TOTAL 0.6 mg/dL (0.2-1.3); BLOOD UREA NITROGEN 18 mg/dL (9-20); CALCIUM 8.1 mg/dl (8.6-10.4); CARBON DIOXIDE 28 mmol/L (22-30); GLUCOSE,RANDOM 78 mg/dL (75-110); PHOSPHOROUS 4.7 mg/dL (2.5-4.5)
[2016-12-26 06:37] LABS: MAGNESIUM 1.8 mg/dL (1.6-2.3)
[2016-12-26 06:38] LABS: INR 2.5
[2016-12-26] MEDS: Saccharomyces Boulardi 250 mg Cap PO SCH ×2 (09:29→17:35)
--- NOTE | 2016-12-26 10:43 | CP.PCM.PN ---
<King Crespo - Last Filed: 12/26/16 10:40> Subjective - Date & Time of Evaluation Date of Evaluation: 12/26/16 Time of Evaluation: 07:35 - Subjective Subjective: Cardiology progress note Dr Brock Patient seen and examined at the bedside. No acute distress. No acute events overnight as per patient and nursing. Denies chest pain, shortness of breath, or pain with respiration. The patient denies other cardiopulmonary complaints. 12 point review of systems was completed and returned negative aside from the above stated complaints. Objective - Vital Signs/Intake and Output Vital Signs (last 24 hours): Temp Pulse Resp BP Pulse Ox 98.5 F 83 20 119/75 97 12/26/16 07:55 12/26/16 07:55 12/26/16 07:55 12/26/16 07:55 12/26/16 07:55 Intake and Output: 12/26/16 12/26/16 06:59 18:59 Intake Total 420 Output Total 500 Balance -80 - Medications Medications: Current Medications Acetaminophen (Tylenol 325mg Tab) 650 mg PO Q6 PRN PRN Reason: Fever >100.4 F Last Admin: 11/29/16 13:19 Dose: 650 mg Amiodarone HCl (Cordarone) 200 mg PO DAILY [facility] Last Admin: 12/26/16 09:29 Dose: 200 mg Amlodipine Besylate (Norvasc) 10 mg PO DAILY [facility] Last Admin: 12/26/16 09:29 Dose: 10 mg Aspirin (Aspirin Chewable) 81 mg PO DAILY [facility] Last Admin: 12/26/16 09:29 Dose: 81 mg Famotidine (Pepcid) 20 mg PO DAILY [facility] Last Admin: 12/26/16 09:29 Dose: 20 mg Mupirocin (Bactroban 2% Nasal) 0.5 gm FAN BID [facility] Last Admin: 12/25/16 18:21 Dose: 0.5 gm Rosuvastatin Calcium (Crestor) 5 mg PO HS [facility] Last Admin: 12/25/16 21:40 Dose: 5 mg Saccharomyces Boulardii (Florastor) 250 mg PO BID [facility] Last Admin: 12/26/16 09:29 Dose: 250 mg - Labs Labs: 12/26/16 06:06 12/26/16 06:06 PT 28.9 SECONDS (9.7-12.2) H 12/26/16 06:06 INR 2.5 12/26/16 06:06 APTT 55 SECONDS (21-34) H D 12/25/16 06:40 - Constitutional Appears: Well, Non-toxic, No Acute Distress - Head Exam Head Exam: ATRAUMATIC, NORMAL INSPECTION, NORMOCEPHALIC - Eye Exam Eye Exam: EOMI, Normal appearance. absent: Conjunctival injection, Scleral icterus Pupil Exam: absent: Irregular, Unequal - ENT Exam ENT Exam: Mucous Membranes Moist - Neck Exam Neck Exam: absent: Tenderness Additional comments: No JVD - Respiratory Exam Respiratory Exam: Clear to Ausculation Bilateral, NORMAL BREATHING PATTERN. absent: Chest Wall Tenderness, Decreased Breath Sounds - Cardiovascular Exam Cardiovascular Exam: REGULAR RHYTHM, RRR, +S1, +S2. absent: Bradycardia, Tachycardia, Irregular Rhythm, +S4 - GI/Abdominal Exam GI & Abdominal Exam: Soft, Normal Bowel Sounds. absent: Distended, Diminished Bowel Sounds, Hyperactive Bowel Sounds, Hypoactive Bowel Sounds - Extremities Exam Extremities Exam: Normal Capillary Refill, Normal Inspection. absent: Calf Tenderness, Pedal Edema, Tenderness - Neurological Exam Neurological Exam: Alert, Awake - Psychiatric Exam Psychiatric exam: Normal Affect, Normal Mood - Skin Skin Exam: Dry, Intact, Normal Color, Warm Assessment and Plan (1) Supraventricular tachycardia Assessment & Plan: 12/13/16 EKG- Normal sinus rhythm (85bmp), normal intervals, physiologic axis, minimal voltage criteria for LVH 12/12/16 CT Chest- Negative for PE 12/12/16 16:45 EKG- Supraventricular tachycardia (151bpm), normal axis, normal intervals, LVH 10/21/16 Echo- 72% EF with normal systolic and diastolic function 10/21/16- EKG sinus tachy (120bpm), jackelin axis, LVH, St and T wave abnormality in lateral leads (consider ischemia), normal intervals 10/18/16- EKG- normal sinus rhythm, normal axis, normal intervals, LVH Troponin Negative x 1 (12/12/16: 0.0160) -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 Will sign off. If patient condition worsens or new condition develops, please feel free to re- consult us. Thank you for this interesting consult. Case discussed with Dr. Brock. <Alejandro Brock - Last Filed: 12/26/16 19:41> Objective - Vital Signs/Intake and Output Vital Signs (last 24 hours): Temp Pulse Resp BP Pulse Ox 98.1 F 82 18 113/69 98 12/26/16 16:14 12/26/16 16:14 12/26/16 16:14 12/26/16 16:14 12/26/16 16:14 - Medications Medications: Current Medications Acetaminophen (Tylenol 325mg Tab) 650 mg PO Q6 PRN PRN Reason: Fever >100.4 F Last Admin: 11/29/16 13:19 Dose: 650 mg Amiodarone HCl (Cordarone) 200 mg PO DAILY [facility] Last Admin: 12/26/16 09:29 Dose: 200 mg Amlodipine Besylate (Norvasc) 10 mg PO DAILY [facility] Last Admin: 12/26/16 09:29 Dose: 10 mg Aspirin (Aspirin Chewable) 81 mg PO DAILY [facility] Last Admin: 12/26/16 09:29 Dose: 81 mg Famotidine (Pepcid) 20 mg PO DAILY [facility] Last Admin: 12/26/16 09:29 Dose: 20 mg Mupirocin (Bactroban 2% Nasal) 0.5 gm FAN BID [facility] Last Admin: 12/26/16 17:34 Dose: 0.5 gm Rosuvastatin Calcium (Crestor) 5 mg PO HS [facility] Last Admin: 12/25/16 21:40 Dose: 5 mg Saccharomyces Boulardii (Florastor) 250 mg PO BID [facility] Last Admin: 12/26/16 17:35 Dose: 250 mg - Labs Labs: 12/26/16 06:06 12/26/16 06:06 PT 28.9 SECONDS (9.7-12.2) H 12/26/16 06:06 INR 2.5 12/26/16 06:06 APTT 55 SECONDS (21-34) H D 12/25/16 06:40 Attending/Attestation - Attestation I have personally seen and examined this patient.: Yes I have fully participated in the care of the patient.: Yes I have reviewed all pertinent clinical information, including history, physical exam and plan: Yes Notes (Text): 12/26/16 19:41 Pt cardiac stable will sign off
[2016-12-26] MEDS: Mupirocin 2% Ointment (NASAL) NAS SCH (17:34)
--- NOTE | 2016-12-26 17:36 | CP.PCM.PN ---
<Jh Minor - Last Filed: 12/26/16 17:37> Subjective - Date & Time of Evaluation Date of Evaluation: 12/26/16 Time of Evaluation: 17:35 - Subjective Subjective: Med progress note. Attending: Dr. Saldana. Pt seen and examined at bedside. No acute distress. No events overnight. Pt has no complaints. No fevers, chills, vomiting, diarrhea. Warfarin 2 tonight. Objective - Vital Signs/Intake and Output Vital Signs (last 24 hours): Temp Pulse Resp BP Pulse Ox 98.1 F 82 18 113/69 98 12/26/16 16:14 12/26/16 16:14 12/26/16 16:14 12/26/16 16:14 12/26/16 16:14 Intake and Output: 12/26/16 12/26/16 06:59 18:59 Intake Total 420 Output Total 500 Balance -80 - Medications Medications: Current Medications Acetaminophen (Tylenol 325mg Tab) 650 mg PO Q6 PRN PRN Reason: Fever >100.4 F Last Admin: 11/29/16 13:19 Dose: 650 mg Amiodarone HCl (Cordarone) 200 mg PO DAILY [facility] Last Admin: 12/26/16 09:29 Dose: 200 mg Amlodipine Besylate (Norvasc) 10 mg PO DAILY [facility] Last Admin: 12/26/16 09:29 Dose: 10 mg Aspirin (Aspirin Chewable) 81 mg PO DAILY [facility] Last Admin: 12/26/16 09:29 Dose: 81 mg Famotidine (Pepcid) 20 mg PO DAILY [facility] Last Admin: 12/26/16 09:29 Dose: 20 mg Mupirocin (Bactroban 2% Nasal) 0.5 gm FAN BID [facility] Last Admin: 12/26/16 17:34 Dose: 0.5 gm Rosuvastatin Calcium (Crestor) 5 mg PO HS [facility] Last Admin: 12/25/16 21:40 Dose: 5 mg Saccharomyces Boulardii (Florastor) 250 mg PO BID [facility] Last Admin: 12/26/16 17:35 Dose: 250 mg - Labs Labs: 12/26/16 06:06 12/26/16 06:06 PT 28.9 SECONDS (9.7-12.2) H 12/26/16 06:06 INR 2.5 12/26/16 06:06 APTT 55 SECONDS (21-34) H D 12/25/16 06:40 - Constitutional Appears: Non-toxic, No Acute Distress - Head Exam Head Exam: ATRAUMATIC, NORMAL INSPECTION, NORMOCEPHALIC - Eye Exam Eye Exam: EOMI - ENT Exam ENT Exam: Mucous Membranes Moist - Neck Exam Neck Exam: Full ROM, Normal Inspection - Respiratory Exam Respiratory Exam: NORMAL BREATHING PATTERN. absent: Respiratory Distress - Cardiovascular Exam Cardiovascular Exam: +S1, +S2 - GI/Abdominal Exam GI & Abdominal Exam: Soft, Normal Bowel Sounds. absent: Tenderness - Extremities Exam Extremities Exam: Full ROM, Normal Inspection - Neurological Exam Neurological Exam: Alert, Awake, Oriented x3 - Psychiatric Exam Psychiatric exam: Normal Affect, Normal Mood - Skin Skin Exam: Dry, Intact, Normal Color, Warm Assessment and Plan - Assessment and Plan (Free Text) Assessment: 56yo M with unknown past medical history presenting for medical evaluation of intracranial bleed. (1) Intracranial hemorrhage 10/18 CT Head: Left basal ganglia acute hemorrhage, possibly hypertensive with associated intraventricular hemorrhage and mass effect upon the left lateral aspect of the 3rd ventricle with the tip shift of the 3rd ventricle towards the right side. No generalized midline shift. Air-fluid level in sphenoid sinus common nonspecific. Please correlate for concern regarding acute sinusitis. Mild involutional changes. 10/19 CT Head: little interval change in the known 2.0 x 2.7 acute hematoma in left thalamus with intra ventricular extension of hemorrhage. Interval mild worsening of obstructive hydrocephalus. 10/24 CT Head: little interval change in the size of left thalamic hemorrhage 2.4x2.9 cm with intraventricular extension of hemorrhage and mild obstructive hydrocephalus. 2 mm midline shift from left to right with no evidence of herniation. Near complete resolution of hemorrhage within 4th ventricle. 11/03/16 CT Head; Interval decrease in size and density left basal ganglia hematoma; well-circumscribed peripheral rim of low attentuation edema about hematoma; combination of brain edema and brain necrosis; intraventricular hemorrhage has diminished. Ventricles hae also decreased in size temporal horns and atria remain prominent. Persistent compression of the 3rd and left lateral ventricle 12/16/16 CT Head: no acute findings noted * Neurosurgery per initial consult-->patient's prognosis dismal at beginning of admission * Neurology (Dr. Simpson) on board-->per 10/26 note: patient has attained maximum response from neuro point of view from this admission; keep nutritional status optimized and avoid infections; treat with peg/trach; no antiplatelets for next 4-6 weeks (maintain MAP ~100) * On baby aspirin 81mg PO daily; discussed with neurology on 11/22/16 * Patient started on therapeutic Lovenox for DVT+, will follow-up INR * Pt is ok to start warfarin per neuro * will resume warfarin 2 mg tonight f/u inr tomorrow (2) Atrial Flutter * Cardiology consulted (Dr. Brock) on board; case discussed * elevated D-dimer-->Ct angio negative for PE * 12/12/16 tachycardia-->Adenosine given --> Atrial flutter--> did not improve with digoxin, cardizem, and amiodarone, requiring cardioversion, which converted * Thyroid studies negative * Amiodarone 200mg PO daily * has been in NSR * we will renew tele (3) Hypertension * monitor vital signs * controlled * elevated yesterday afternoon-->restarted Norvasc 5mg PO daily, we will increase to 10 daily (4) Deep vein thrombosis * per 12/12/16 Doppler: right peroneal vein DVT+ * Patient is currently on therapuetic lovenox and warfarin as well * pt is ok to start warfarin per neuro Dr. Simpson * warfarin 2 mg PO tonight (5) Dyslipidemia -continue crestor 5 daily (6) Acute respiratory failure (resolved) * s/p tracheostomy 10/28/16 * Patient completed trach collar. * Weaning completed; off ventilator * Saturating well. * Monitor dressing change of trach site * Pulmonary (Dr. Bailey) consulted to assist with weaning protocol * Completed decannulation on 10/30/16; saturating well * Consulted speech-->patient not appropriate for speak-easy valve status post decannulation; encourage speaking * Discussed with ENT-->outpatient due to mild vocal cord dysfunction * Discussed with swallow-->patient has a strong cough, can be started on pleasure feedings and/or pureed diet to try to transition off peg * pt now on regular diet, tolerating well * we will f.u with gi about removal of peg * calorie count pending (6) CVA * Hemorrhagic stroke with associated hypotension and basal ganglia involvement on admission * hemoglobin a1c:5.7 * Cholesterol: 202, LDL:130 HDL:52 * Aspirin 81mg PO daily * Blood pressure control monitoring * continue Crestor 5mg PO qHS * s/p peg placement (7) Sepsis (resolved) Per 11/05; Fever 103F and associated leukocytosis: 21.8; infection: pneumonia ( which was treated with Meropenem during the course of hospitalization) Infectious disease on board (Dr. Chavez) 10/21 Sputum-Klebsiella (sensitive to Maxipime) 10/25 Serratia and Enterobacter (sensitive to Maxipime) 10/31 Sputum: normal 11/06: Enterobacter which is sensitive Meropenem (switch from Maxipime) 11/06 Urine culture: yeast 11/09 Urine culture: yeast 11/09 Blood culture: no growth for 5 days X2 11/21 Urine culture: yeast 11/26: Urine culture: Pseudomonas 12/08: Urine culture: VRE UTI (patient not septic at time of current UTI) -repeat urine culture shows contamination, urine culture 12/21 negative -continue tylenol PRN for fevers (8) Urinary Tract Infection (current) * 12/08/16 VRE UTI * Multiple UTI infections * Yeast urine treated with Diflucan during hospitalization * Pseudomonas treated with Cipro during hospitalization * VRE UTI currently treated with Tigecycline and contact isolation * [place] condom catheter changed recently * Infectious disease (Dr. Chavez) on board * Tigecycline 50mg IV Q 12hours (active since 12/11/16), dc today * Florastor 250mg PO bid * Monitor LFTS/renal function * dumas has been discontinued * repeat urine negative, tigecycline has been discontinued * contact dc (7) Hypernatremia -resolved (8) Prophylactic care * s/p peg placement * Weaned off vent; saturating well s/p decannulation * Continue with aggressive PT/OT-->latest PT noted recommending for subacute/ LTAC * PT/OT * Monitor calorie count * INR is therapeutic- lovenox discontinued * coumadin tonight * pepcid 20 PO daily Disposition * repeat urine negative. * Ordered for calorie count * Will need anticoagulation for for DVT+ * Pending insurance for snf care facility for rehabilitation and peg feedings, will need constant monitoring. Patient currently wears mittens to prevent him from pulling on his tubes and is unsafe for home. Will need to clarify with family regarding the type of care patient will need with both patient's son and daughters * discussed with Dr. Saldana <Johny Saldana H - Last Filed: 12/26/16 19:24> Objective - Vital Signs/Intake and Output Vital Signs (last 24 hours): Temp Pulse Resp BP Pulse Ox 98.1 F 82 18 113/69 98 12/26/16 16:14 12/26/16 16:14 12/26/16 16:14 12/26/16 16:14 12/26/16 16:14 - Medications Medications: Current Medications Acetaminophen (Tylenol 325mg Tab) 650 mg PO Q6 PRN PRN Reason: Fever >100.4 F Last Admin: 11/29/16 13:19 Dose: 650 mg Amiodarone HCl (Cordarone) 200 mg PO DAILY [facility] Last Admin: 12/26/16 09:29 Dose: 200 mg Amlodipine Besylate (Norvasc) 10 mg PO DAILY [facility] Last Admin: 12/26/16 09:29 Dose: 10 mg Aspirin (Aspirin Chewable) 81 mg PO DAILY [facility] Last Admin: 12/26/16 09:29 Dose: 81 mg Famotidine (Pepcid) 20 mg PO DAILY [facility] Last Admin: 12/26/16 09:29 Dose: 20 mg Mupirocin (Bactroban 2% Nasal) 0.5 gm FAN BID [facility] Last Admin: 12/26/16 17:34 Dose: 0.5 gm Rosuvastatin Calcium (Crestor) 5 mg PO HS [facility] Last Admin: 12/25/16 21:40 Dose: 5 mg Saccharomyces Boulardii (Florastor) 250 mg PO BID [facility] Last Admin: 12/26/16 17:35 Dose: 250 mg - Labs Labs: 12/26/16 06:06 12/26/16 06:06 PT 28.9 SECONDS (9.7-12.2) H 12/26/16 06:06 INR 2.5 12/26/16 06:06 APTT 55 SECONDS (21-34) H D 12/25/16 06:40 Attending/Attestation - Attestation I have personally seen and examined this patient.: Yes I have fully participated in the care of the patient.: Yes I have reviewed all pertinent clinical information, including history, physical exam and plan: Yes Notes (Text): Medical Attending: Patient was seen and examined by me, agree with the above note by the resident. The patient is as before awake and alert. Continue with the PO coumadin at this time. The patient is tolerating diet. The patient is moving all extremities and taking PO diet as well and has not had to use PEG tube. From what I understand the patient has steps in his house and this is a concern of the family thank you Johny Saldana
[2016-12-27 08:00] LABS: INR 2.1
[2016-12-27 08:05] LABS: BASO % 0.4 % (0.0-2.0); EOS # 0.2 K/uL (0.0-0.7); EOS % 2.9 % (0.0-4.0); HEMATOCRIT 29.4 % (35.0-51.0); LYMPH # 1.9 K/uL (1.0-4.3); LYMPH % 24.9 % (20.0-40.0); MEAN CELL VOLUME 83.5 fL (80.0-94.0); MEAN CORPUSCULAR HEMOGLOBIN 27.4 pg (27.0-31.0); MEAN CORPUSCULAR HGB CONC 32.8 g/dL (33.0-37.0); MEAN PLATELET VOLUME 8.9 fL (7.2-11.7); MONO # 0.6 K/uL (0.0-0.8); MONO % 8.6 % (0.0-10.0); NRBC % 0.1 % (0.0-2.0); RED CELL DISTRIBUTION WIDTH 17.1 % (11.5-14.5); WHITE BLOOD COUNT 7.6 K/uL (4.8-10.8)
[2016-12-27 08:26] LABS: CHLORIDE 100 mmol/L (98-107); POTASSIUM 3.8 mmol/L (3.6-5.2); SODIUM 136 mmol/L (132-148)
[2016-12-27 08:28] LABS: GFR AFRICAN-AMERICAN > 60
[2016-12-27 08:29] LABS: ALB/GLOB RATIO 0.9 (1.0-2.1); ALKALINE PHOSPHATASE 75 U/L (38-126); ALT/SGPT 107 U/L (21-72); AST/SGOT 76 U/L (17-59); BILIRUBIN,TOTAL 0.5 mg/dL (0.2-1.3); BLOOD UREA NITROGEN 18 mg/dL (9-20); CALCIUM 8.1 mg/dl (8.6-10.4); CARBON DIOXIDE 28 mmol/L (22-30); GLUCOSE,RANDOM 78 mg/dL (75-110)
[2016-12-27] MEDS: Mupirocin 2% Ointment (NASAL) NAS SCH ×2 (10:51→17:35)
[2016-12-27] MEDS: Saccharomyces Boulardi 250 mg Cap PO SCH ×2 (10:51→17:34)
--- NOTE | 2016-12-27 11:56 | CP.PCM.PN ---
<Jh Minor - Last Filed: 12/27/16 11:56> Subjective - Date & Time of Evaluation Date of Evaluation: 12/27/16 Time of Evaluation: 11:55 - Subjective Subjective: Med progress note. Attending: Dr. Saldana Pt seen and examined at bedside. No acute distress. No events overnight. Warfarin 5 tonight. Pt denies fevers, chills, vomiting, diarrhea. No daily labs. Objective - Vital Signs/Intake and Output Vital Signs (last 24 hours): Temp Pulse Resp BP Pulse Ox 98.2 F 75 20 118/69 99 12/27/16 08:13 12/27/16 08:20 12/27/16 08:13 12/27/16 08:13 12/27/16 08:13 Intake and Output: 12/27/16 12/27/16 06:59 18:59 Intake Total 600 240 Output Total 500 Balance 100 240 - Medications Medications: Current Medications Acetaminophen (Tylenol 325mg Tab) 650 mg PO Q6 PRN PRN Reason: Fever >100.4 F Last Admin: 11/29/16 13:19 Dose: 650 mg Amiodarone HCl (Cordarone) 200 mg PO DAILY [facility] Last Admin: 12/27/16 10:51 Dose: 200 mg Amlodipine Besylate (Norvasc) 10 mg PO DAILY [facility] Last Admin: 12/27/16 10:50 Dose: 10 mg Aspirin (Aspirin Chewable) 81 mg PO DAILY [facility] Last Admin: 12/26/16 09:29 Dose: 81 mg Famotidine (Pepcid) 20 mg PO DAILY [facility] Last Admin: 12/27/16 10:50 Dose: 20 mg Mupirocin (Bactroban 2% Nasal) 0.5 gm FAN BID [facility] Last Admin: 12/27/16 10:51 Dose: 0.5 gm Rosuvastatin Calcium (Crestor) 5 mg PO HS [facility] Last Admin: 12/26/16 21:28 Dose: 5 mg Saccharomyces Boulardii (Florastor) 250 mg PO BID [facility] Last Admin: 12/27/16 10:51 Dose: 250 mg Warfarin Sodium (Coumadin) 5 mg PO 1800 [facility] Stop: 12/27/16 18:01 - Labs Labs: 12/27/16 07:40 12/27/16 07:40 PT 23.6 SECONDS (9.7-12.2) H D 12/27/16 07:40 INR 2.1 12/27/16 07:40 APTT 55 SECONDS (21-34) H D 12/25/16 06:40 - Constitutional Appears: Non-toxic, No Acute Distress - Head Exam Head Exam: ATRAUMATIC, NORMAL INSPECTION, NORMOCEPHALIC - Neck Exam Neck Exam: Full ROM, Normal Inspection - Respiratory Exam Respiratory Exam: NORMAL BREATHING PATTERN. absent: Respiratory Distress - Cardiovascular Exam Cardiovascular Exam: +S1, +S2 - GI/Abdominal Exam GI & Abdominal Exam: Soft, Normal Bowel Sounds. absent: Tenderness - Extremities Exam Extremities Exam: Full ROM, Normal Inspection - Back Exam Back Exam: NORMAL INSPECTION - Neurological Exam Neurological Exam: Alert, Awake, Oriented x3 - Psychiatric Exam Psychiatric exam: Normal Affect, Normal Mood - Skin Skin Exam: Dry, Intact, Normal Color, Warm Assessment and Plan - Assessment and Plan (Free Text) Assessment: 56yo M with unknown past medical history presenting for medical evaluation of intracranial bleed. (1) Intracranial hemorrhage 10/18 CT Head: Left basal ganglia acute hemorrhage, possibly hypertensive with associated intraventricular hemorrhage and mass effect upon the left lateral aspect of the 3rd ventricle with the tip shift of the 3rd ventricle towards the right side. No generalized midline shift. Air-fluid level in sphenoid sinus common nonspecific. Please correlate for concern regarding acute sinusitis. Mild involutional changes. 10/19 CT Head: little interval change in the known 2.0 x 2.7 acute hematoma in left thalamus with intra ventricular extension of hemorrhage. Interval mild worsening of obstructive hydrocephalus. 10/24 CT Head: little interval change in the size of left thalamic hemorrhage 2.4x2.9 cm with intraventricular extension of hemorrhage and mild obstructive hydrocephalus. 2 mm midline shift from left to right with no evidence of herniation. Near complete resolution of hemorrhage within 4th ventricle. 11/03/16 CT Head; Interval decrease in size and density left basal ganglia hematoma; well-circumscribed peripheral rim of low attentuation edema about hematoma; combination of brain edema and brain necrosis; intraventricular hemorrhage has diminished. Ventricles hae also decreased in size temporal horns and atria remain prominent. Persistent compression of the 3rd and left lateral ventricle 12/16/16 CT Head: no acute findings noted * Neurosurgery per initial consult-->patient's prognosis dismal at beginning of admission * Neurology (Dr. Simpson) on board-->per 10/26 note: patient has attained maximum response from neuro point of view from this admission; keep nutritional status optimized and avoid infections; treat with peg/trach; no antiplatelets for next 4-6 weeks (maintain MAP ~100) * On baby aspirin 81mg PO daily; discussed with neurology on 11/22/16 * Patient started on therapeutic Lovenox for DVT+, will follow-up INR * Pt is ok to start warfarin per neuro * will resume warfarin 5 mg tonight f/u inr tomorrow (2) Atrial Flutter * Cardiology consulted (Dr. Brock) on board; case discussed * elevated D-dimer-->Ct angio negative for PE * 12/12/16 tachycardia-->Adenosine given --> Atrial flutter--> did not improve with digoxin, cardizem, and amiodarone, requiring cardioversion, which converted * Thyroid studies negative * Amiodarone 200mg PO daily * has been in NSR * we will renew tele (3) Hypertension * monitor vital signs * controlled * elevated yesterday afternoon-->restarted Norvasc 5mg PO daily, we will increase to 10 daily (4) Deep vein thrombosis * per 12/12/16 Doppler: right peroneal vein DVT+ * Patient is currently on therapuetic lovenox and warfarin as well * pt is ok to start warfarin per neuro Dr. Simpson * warfarin 5 mg PO tonight (5) Dyslipidemia -continue crestor 5 daily (6) Acute respiratory failure (resolved) * s/p tracheostomy 10/28/16 * Patient completed trach collar. * Weaning completed; off ventilator * Saturating well. * Monitor dressing change of trach site * Pulmonary (Dr. Bailey) consulted to assist with weaning protocol * Completed decannulation on 10/30/16; saturating well * Consulted speech-->patient not appropriate for speak-easy valve status post decannulation; encourage speaking * Discussed with ENT-->outpatient due to mild vocal cord dysfunction * Discussed with swallow-->patient has a strong cough, can be started on pleasure feedings and/or pureed diet to try to transition off peg * pt now on regular diet, tolerating well * we will f.u with gi about removal of peg * calorie count pending (6) CVA * Hemorrhagic stroke with associated hypotension and basal ganglia involvement on admission * hemoglobin a1c:5.7 * Cholesterol: 202, LDL:130 HDL:52 * Aspirin 81mg PO daily * Blood pressure control monitoring * continue Crestor 5mg PO qHS * s/p peg placement (7) Sepsis (resolved) Per 11/05; Fever 103F and associated leukocytosis: 21.8; infection: pneumonia ( which was treated with Meropenem during the course of hospitalization) Infectious disease on board (Dr. Chavez) 10/21 Sputum-Klebsiella (sensitive to Maxipime) 10/25 Serratia and Enterobacter (sensitive to Maxipime) 10/31 Sputum: normal 11/06: Enterobacter which is sensitive Meropenem (switch from Maxipime) 11/06 Urine culture: yeast 11/09 Urine culture: yeast 11/09 Blood culture: no growth for 5 days X2 11/21 Urine culture: yeast 11/26: Urine culture: Pseudomonas 12/08: Urine culture: VRE UTI (patient not septic at time of current UTI) -repeat urine culture shows contamination, urine culture 12/21 negative -continue tylenol PRN for fevers (8) Urinary Tract Infection (current) * 12/08/16 VRE UTI * Multiple UTI infections * Yeast urine treated with Diflucan during hospitalization * Pseudomonas treated with Cipro during hospitalization * VRE UTI currently treated with Tigecycline and contact isolation * [place] condom catheter changed recently * Infectious disease (Dr. Chavez) on board * Tigecycline 50mg IV Q 12hours (active since 12/11/16), dc today * Florastor 250mg PO bid * Monitor LFTS/renal function * dumas has been discontinued * repeat urine negative, tigecycline has been discontinued * contact dc (7) Hypernatremia -resolved (8) Prophylactic care * s/p peg placement * Weaned off vent; saturating well s/p decannulation * Continue with aggressive PT/OT-->latest PT noted recommending for subacute/ LTAC * PT/OT * Monitor calorie count * INR is therapeutic- lovenox discontinued * coumadin tonight * pepcid 20 PO daily Disposition * repeat urine negative. * Ordered for calorie count * Will need anticoagulation for for DVT+ * Pending insurance for snf care facility for rehabilitation and peg feedings, will need constant monitoring. Patient currently wears mittens to prevent him from pulling on his tubes and is unsafe for home. Will need to clarify with family regarding the type of care patient will need with both patient's son and daughters * discussed with Dr. Saldana <Johny Saldana H - Last Filed: 12/27/16 17:31> Objective - Vital Signs/Intake and Output Vital Signs (last 24 hours): Temp Pulse Resp BP Pulse Ox 98.2 F 84 20 103/67 99 12/27/16 15:00 12/27/16 15:00 12/27/16 15:00 12/27/16 15:00 12/27/16 15:00 Intake and Output: 12/27/16 12/27/16 06:59 18:59 Intake Total 600 240 Output Total 500 Balance 100 240 - Medications Medications: Current Medications Acetaminophen (Tylenol 325mg Tab) 650 mg PO Q6 PRN PRN Reason: Fever >100.4 F Last Admin: 11/29/16 13:19 Dose: 650 mg Amiodarone HCl (Cordarone) 200 mg PO DAILY [facility] Last Admin: 12/27/16 10:51 Dose: 200 mg Amlodipine Besylate (Norvasc) 10 mg PO DAILY [facility] Last Admin: 12/27/16 10:50 Dose: 10 mg Aspirin (Aspirin Chewable) 81 mg PO DAILY [facility] Last Admin: 12/27/16 14:21 Dose: 81 mg Famotidine (Pepcid) 20 mg PO DAILY [facility] Last Admin: 12/27/16 10:50 Dose: 20 mg Mupirocin (Bactroban 2% Nasal) 0.5 gm FAN BID [facility] Last Admin: 12/27/16 10:51 Dose: 0.5 gm Rosuvastatin Calcium (Crestor) 5 mg PO HS [facility] Last Admin: 12/26/16 21:28 Dose: 5 mg Saccharomyces Boulardii (Florastor) 250 mg PO BID [facility] Last Admin: 12/27/16 10:51 Dose: 250 mg Warfarin Sodium (Coumadin) 5 mg PO 1800 [facility] Stop: 12/27/16 18:01 - Labs Labs: 12/27/16 07:40 12/27/16 07:40 PT 23.6 SECONDS (9.7-12.2) H D 12/27/16 07:40 INR 2.1 12/27/16 07:40 APTT 55 SECONDS (21-34) H D 12/25/16 06:40 Attending/Attestation - Attestation I have personally seen and examined this patient.: Yes I have fully participated in the care of the patient.: Yes I have reviewed all pertinent clinical information, including history, physical exam and plan: Yes Notes (Text): 12/27/16 17:30 Medical Attending: Patient was seen and examined by me. Agree with the above note by the resident. Later in the day patient's daughter was present at bedside and I gave her an update with anabelas to patient's condition which is better than before. She explains they have two flights of about [address] they live. Patient is still not strong enough for this. thank you Johny Saldana
--- NOTE | 2016-12-27 19:22 | CARD ---
APPROVED REPORT EKG Measurement Heart [id number] <Conclusion> Normal sinus rhythm Normal ECG
[2016-12-28 06:45] LABS: INR 2.2
[2016-12-28 07:21] LABS: CHLORIDE 103 mmol/L (98-107)
[2016-12-28 07:22] LABS: POTASSIUM 3.9 mmol/L (3.6-5.2); SODIUM 139 mmol/L (132-148)
[2016-12-28 07:24] LABS: ALB/GLOB RATIO 0.9 (1.0-2.1); ALKALINE PHOSPHATASE 73 U/L (38-126); ALT/SGPT 102 U/L (21-72); AST/SGOT 58 U/L (17-59); BILIRUBIN,TOTAL 0.5 mg/dL (0.2-1.3); BLOOD UREA NITROGEN 16 mg/dL (9-20); CARBON DIOXIDE 28 mmol/L (22-30); GFR AFRICAN-AMERICAN > 60; GLUCOSE,RANDOM 82 mg/dL (75-110); TOTAL PROTEIN 5.9 g/dL (6.3-8.3)
[2016-12-28 07:25] LABS: CALCIUM 8.2 mg/dl (8.6-10.4)
[2016-12-28] MEDS: Mupirocin 2% Ointment (NASAL) NAS SCH ×2 (09:22→19:07)
[2016-12-28] MEDS: Saccharomyces Boulardi 250 mg Cap PO SCH ×2 (09:23→19:07)
--- NOTE | 2016-12-28 12:02 | CP.PCM.PN ---
<Jh Minor - Last Filed: 12/28/16 12:02> Subjective - Date & Time of Evaluation Date of Evaluation: 12/28/16 Time of Evaluation: 12:00 - Subjective Subjective: Med progress note. Attending: Dr. Saldana Pt seen and examined at bedside. No acute distress. No events overnight. Awaiting placement. Continue warfarin 5 tonight. Denies fevers, chills, cp, sob. Objective - Vital Signs/Intake and Output Vital Signs (last 24 hours): Temp Pulse Resp BP Pulse Ox 98.1 F 72 20 118/77 99 12/28/16 07:00 12/28/16 07:30 12/28/16 07:00 12/28/16 07:00 12/28/16 07:00 Intake and Output: 12/28/16 12/28/16 06:59 18:59 Output Total 400 Balance -400 - Medications Medications: Current Medications Acetaminophen (Tylenol 325mg Tab) 650 mg PO Q6 PRN PRN Reason: Fever >100.4 F Last Admin: 11/29/16 13:19 Dose: 650 mg Amiodarone HCl (Cordarone) 200 mg PO DAILY [facility] Last Admin: 12/28/16 09:23 Dose: 200 mg Amlodipine Besylate (Norvasc) 10 mg PO DAILY [facility] Last Admin: 12/28/16 09:23 Dose: 10 mg Aspirin (Aspirin Chewable) 81 mg PO DAILY [facility] Last Admin: 12/28/16 09:23 Dose: 81 mg Famotidine (Pepcid) 20 mg PO DAILY [facility] Last Admin: 12/28/16 09:23 Dose: 20 mg Mupirocin (Bactroban 2% Nasal) 0.5 gm FAN BID [facility] Last Admin: 12/28/16 09:22 Dose: 0.5 gm Rosuvastatin Calcium (Crestor) 5 mg PO HS [facility] Last Admin: 12/27/16 21:23 Dose: 5 mg Saccharomyces Boulardii (Florastor) 250 mg PO BID [facility] Last Admin: 12/28/16 09:23 Dose: 250 mg Warfarin Sodium (Coumadin) 5 mg PO 1800 [facility] Stop: 12/28/16 18:01 - Labs Labs: 12/27/16 07:40 12/28/16 06:16 PT 25.5 SECONDS (9.7-12.2) H 12/28/16 06:16 INR 2.2 12/28/16 06:16 APTT 55 SECONDS (21-34) H D 12/25/16 06:40 - Constitutional Appears: Non-toxic, No Acute Distress - Head Exam Head Exam: ATRAUMATIC, NORMAL INSPECTION, NORMOCEPHALIC - Eye Exam Eye Exam: EOMI - ENT Exam ENT Exam: Mucous Membranes Moist - Neck Exam Neck Exam: Full ROM, Normal Inspection - Respiratory Exam Respiratory Exam: NORMAL BREATHING PATTERN. absent: Respiratory Distress - Cardiovascular Exam Cardiovascular Exam: REGULAR RHYTHM, +S1, +S2 - GI/Abdominal Exam GI & Abdominal Exam: Soft, Normal Bowel Sounds. absent: Tenderness - Extremities Exam Extremities Exam: Full ROM, Normal Inspection - Back Exam Back Exam: NORMAL INSPECTION - Neurological Exam Neurological Exam: Alert, Awake, Oriented x3 - Psychiatric Exam Psychiatric exam: Normal Affect, Normal Mood - Skin Skin Exam: Dry, Intact, Normal Color, Warm Assessment and Plan - Assessment and Plan (Free Text) Assessment: This is a 56yo male with unknown past medical history presenting for medical evaluation of intracranial bleed. (1) Intracranial hemorrhage 10/18 CT Head: Left basal ganglia acute hemorrhage, possibly hypertensive with associated intraventricular hemorrhage and mass effect upon the left lateral aspect of the 3rd ventricle with the tip shift of the 3rd ventricle towards the right side. No generalized midline shift. Air-fluid level in sphenoid sinus common nonspecific. Please correlate for concern regarding acute sinusitis. Mild involutional changes. 10/19 CT Head: little interval change in the known 2.0 x 2.7 acute hematoma in left thalamus with intra ventricular extension of hemorrhage. Interval mild worsening of obstructive hydrocephalus. 10/24 CT Head: little interval change in the size of left thalamic hemorrhage 2.4x2.9 cm with intraventricular extension of hemorrhage and mild obstructive hydrocephalus. 2 mm midline shift from left to right with no evidence of herniation. Near complete resolution of hemorrhage within 4th ventricle. 11/03/16 CT Head; Interval decrease in size and density left basal ganglia hematoma; well-circumscribed peripheral rim of low attentuation edema about hematoma; combination of brain edema and brain necrosis; intraventricular hemorrhage has diminished. Ventricles hae also decreased in size temporal horns and atria remain prominent. Persistent compression of the 3rd and left lateral ventricle 12/16/16 CT Head: no acute findings noted * Neurosurgery per initial consult-->patient's prognosis dismal at beginning of admission * Neurology (Dr. Simpson) on board-->per 10/26 note: patient has attained maximum response from neuro point of view from this admission; keep nutritional status optimized and avoid infections; treat with peg/trach; no antiplatelets for next 4-6 weeks (maintain MAP ~100) * On baby aspirin 81mg PO daily; discussed with neurology on 11/22/16 * Patient started on therapeutic Lovenox for DVT+, will follow-up INR * Pt is ok to start warfarin per neuro * will resume warfarin 5 mg tonight f/u inr tomorrow (2) Atrial Flutter * Cardiology consulted (Dr. Brock) on board; case discussed * elevated D-dimer-->Ct angio negative for PE * 12/12/16 tachycardia-->Adenosine given --> Atrial flutter--> did not improve with digoxin, cardizem, and amiodarone, requiring cardioversion, which converted * Thyroid studies negative * Amiodarone 200mg PO daily * has been in NSR * we will renew tele (3) Hypertension * monitor vital signs * controlled * elevated yesterday afternoon-->restarted Norvasc 5mg PO daily, we will increase to 10 daily (4) Deep vein thrombosis * per 12/12/16 Doppler: right peroneal vein DVT+ * Patient is currently on warfarin * pt is ok to start warfarin per neuro Dr. Simpson * warfarin 5 mg PO tonight (5) Dyslipidemia -continue crestor 5 daily (6) Acute respiratory failure (resolved) * s/p tracheostomy 10/28/16 * Patient completed trach collar. * Weaning completed; off ventilator * Saturating well. * Monitor dressing change of trach site * Pulmonary (Dr. Bailey) consulted to assist with weaning protocol * Completed decannulation on 10/30/16; saturating well * Consulted speech-->patient not appropriate for speak-easy valve status post decannulation; encourage speaking * Discussed with ENT-->outpatient due to mild vocal cord dysfunction * Discussed with swallow-->patient has a strong cough, can be started on pleasure feedings and/or pureed diet to try to transition off peg * pt now on regular diet, tolerating well * we will f.u with gi about removal of peg * calorie count pending (6) CVA * Hemorrhagic stroke with associated hypotension and basal ganglia involvement on admission * hemoglobin a1c:5.7 * Cholesterol: 202, LDL:130 HDL:52 * Aspirin 81mg PO daily * Blood pressure control monitoring * continue Crestor 5mg PO qHS * s/p peg placement (7) Sepsis (resolved) Per 11/05; Fever 103F and associated leukocytosis: 21.8; infection: pneumonia ( which was treated with Meropenem during the course of hospitalization) Infectious disease on board (Dr. Chavez) 10/21 Sputum-Klebsiella (sensitive to Maxipime) 10/25 Serratia and Enterobacter (sensitive to Maxipime) 10/31 Sputum: normal 11/06: Enterobacter which is sensitive Meropenem (switch from Maxipime) 11/06 Urine culture: yeast 11/09 Urine culture: yeast 11/09 Blood culture: no growth for 5 days X2 11/21 Urine culture: yeast 11/26: Urine culture: Pseudomonas 12/08: Urine culture: VRE UTI (patient not septic at time of current UTI) -repeat urine culture shows contamination, urine culture 12/21 negative -continue tylenol PRN for fevers (8) Urinary Tract Infection (current) * 12/08/16 VRE UTI * Multiple UTI infections * Yeast urine treated with Diflucan during hospitalization * Pseudomonas treated with Cipro during hospitalization * VRE UTI treated with Tigecycline and contact isolation * [place] condom catheter changed recently * Infectious disease (Dr. Chavez) on board * Tigecycline 50mg IV Q 12hours (active since 12/11/16, no longer active), dc recently * Florastor 250mg PO bid * Monitor LFTS/renal function * dumas has been discontinued * repeat urine negative, tigecycline has been discontinued * contact dc (7) Hypernatremia -resolved (8) Prophylactic care * s/p peg placement * Weaned off vent; saturating well s/p decannulation * Continue with aggressive PT/OT-->latest PT noted recommending for subacute/ LTAC * PT/OT * Monitor calorie count * INR is therapeutic- lovenox discontinued * coumadin tonight * pepcid 20 PO daily Disposition * repeat urine negative. * Ordered for calorie count * Will need anticoagulation for for DVT+ * Pending insurance for fdc care facility for rehabilitation and peg feedings, will need constant monitoring. Patient currently wears mittens to prevent him from pulling on his tubes and is unsafe for home. Will need to clarify with family regarding the type of care patient will need with both patient's son and daughters * discussed with Dr. Saldana <Johny Saldana H - Last Filed: 12/28/16 17:35> Objective - Vital Signs/Intake and Output Vital Signs (last 24 hours): Temp Pulse Resp BP Pulse Ox 99.0 F 93 H 20 115/68 99 12/28/16 15:46 12/28/16 15:46 12/28/16 15:46 12/28/16 15:46 12/28/16 15:46 Intake and Output: 12/28/16 12/28/16 06:59 18:59 Output Total 400 Balance -400 - Medications Medications: Current Medications Amiodarone HCl (Cordarone) 200 mg PO DAILY [facility] Last Admin: 12/28/16 09:23 Dose: 200 mg Amlodipine Besylate (Norvasc) 10 mg PO DAILY [facility] Last Admin: 12/28/16 09:23 Dose: 10 mg Aspirin (Aspirin Chewable) 81 mg PO DAILY [facility] Last Admin: 12/28/16 09:23 Dose: 81 mg Famotidine (Pepcid) 20 mg PO DAILY [facility] Last Admin: 12/28/16 09:23 Dose: 20 mg Mupirocin (Bactroban 2% Nasal) 0.5 gm FAN BID [facility] Last Admin: 12/28/16 09:22 Dose: 0.5 gm Rosuvastatin Calcium (Crestor) 5 mg PO HS [facility] Last Admin: 12/27/16 21:23 Dose: 5 mg Saccharomyces Boulardii (Florastor) 250 mg PO BID [facility] Last Admin: 12/28/16 09:23 Dose: 250 mg Warfarin Sodium (Coumadin) 5 mg PO 1800 [facility] Stop: 12/28/16 18:01 - Labs Labs: 12/27/16 07:40 12/28/16 06:16 PT 25.5 SECONDS (9.7-12.2) H 12/28/16 06:16 INR 2.2 12/28/16 06:16 APTT 55 SECONDS (21-34) H D 12/25/16 06:40 Attending/Attestation - Attestation I have personally seen and examined this patient.: Yes I have fully participated in the care of the patient.: Yes I have reviewed all pertinent clinical information, including history, physical exam and plan: Yes
[2016-12-29 07:10] LABS: INR 2.5
[2016-12-30 06:47] LABS: INR 2.6
[2016-12-30] MEDS: Saccharomyces Boulardi 250 mg Cap PO SCH ×2 (09:37→18:36)
--- NOTE | 2016-12-30 11:51 | CP.PCM.PN ---
<Jh Minor - Last Filed: 12/30/16 11:51> Subjective - Date & Time of Evaluation Date of Evaluation: 12/30/16 Time of Evaluation: 11:50 - Subjective Subjective: Med progress note. Attending: Dr Saldana Pt seen and examined at bedside. No acute distress. No events overnight. Pt needs to have dc the condom cath. No fevers, chills, vomiting, diarrhea. Objective - Vital Signs/Intake and Output Vital Signs (last 24 hours): Temp Pulse Resp BP Pulse Ox 985 F H 84 20 122/76 100 12/30/16 08:30 12/30/16 08:30 12/30/16 08:30 12/30/16 08:30 12/30/16 08:30 Intake and Output: 12/30/16 12/30/16 06:59 18:59 Intake Total 350 Output Total 300 Balance 50 - Medications Medications: Current Medications Amiodarone HCl (Cordarone) 200 mg PO DAILY [facility] Last Admin: 12/30/16 09:37 Dose: 200 mg Amlodipine Besylate (Norvasc) 10 mg PO DAILY [facility] Last Admin: 12/30/16 09:37 Dose: 10 mg Aspirin (Aspirin Chewable) 81 mg PO DAILY [facility] Last Admin: 12/30/16 09:37 Dose: 81 mg Rosuvastatin Calcium (Crestor) 5 mg PO HS [facility] Last Admin: 12/29/16 22:00 Dose: 5 mg Saccharomyces Boulardii (Florastor) 250 mg PO BID [facility] Last Admin: 12/30/16 09:37 Dose: 250 mg - Labs Labs: 12/27/16 07:40 12/28/16 06:16 PT 30.3 SECONDS (9.7-12.2) H* 12/30/16 06:16 INR 2.6 12/30/16 06:16 APTT 55 SECONDS (21-34) H D 12/25/16 06:40 - Constitutional Appears: Non-toxic, No Acute Distress - Head Exam Head Exam: ATRAUMATIC, NORMAL INSPECTION, NORMOCEPHALIC - Eye Exam Eye Exam: EOMI - ENT Exam ENT Exam: Mucous Membranes Moist - Neck Exam Neck Exam: Full ROM, Normal Inspection - Respiratory Exam Respiratory Exam: NORMAL BREATHING PATTERN. absent: Respiratory Distress - Cardiovascular Exam Cardiovascular Exam: +S1, +S2 - GI/Abdominal Exam GI & Abdominal Exam: Soft, Normal Bowel Sounds. absent: Tenderness - Extremities Exam Extremities Exam: Full ROM, Normal Inspection - Neurological Exam Neurological Exam: Alert, Awake, Oriented x3 - Psychiatric Exam Psychiatric exam: Normal Affect, Normal Mood - Skin Skin Exam: Dry, Intact, Normal Color, Warm Assessment and Plan - Assessment and Plan (Free Text) Assessment: This is a 56 year old male with unknown past medical history presenting for medical evaluation of intracranial bleed. (1) Intracranial hemorrhage 10/18 CT Head: Left basal ganglia acute hemorrhage, possibly hypertensive with associated intraventricular hemorrhage and mass effect upon the left lateral aspect of the 3rd ventricle with the tip shift of the 3rd ventricle towards the right side. No generalized midline shift. Air-fluid level in sphenoid sinus common nonspecific. Please correlate for concern regarding acute sinusitis. Mild involutional changes. 10/19 CT Head: little interval change in the known 2.0 x 2.7 acute hematoma in left thalamus with intra ventricular extension of hemorrhage. Interval mild worsening of obstructive hydrocephalus. 10/24 CT Head: little interval change in the size of left thalamic hemorrhage 2.4x2.9 cm with intraventricular extension of hemorrhage and mild obstructive hydrocephalus. 2 mm midline shift from left to right with no evidence of herniation. Near complete resolution of hemorrhage within 4th ventricle. 11/03/16 CT Head; Interval decrease in size and density left basal ganglia hematoma; well-circumscribed peripheral rim of low attentuation edema about hematoma; combination of brain edema and brain necrosis; intraventricular hemorrhage has diminished. Ventricles hae also decreased in size temporal horns and atria remain prominent. Persistent compression of the 3rd and left lateral ventricle 12/16/16 CT Head: no acute findings noted * Neurosurgery per initial consult-->patient's prognosis dismal at beginning of admission * Neurology (Dr. Simpson) on board-->per 10/26 note: patient has attained maximum response from neuro point of view from this admission; keep nutritional status optimized and avoid infections; treat with peg/trach; no antiplatelets for next 4-6 weeks (maintain MAP ~100) * On baby aspirin 81mg PO daily; discussed with neurology on 11/22/16 * Patient started on therapeutic Lovenox for DVT+, stopped and transitioned to warfarin, will follow-up INR * Pt is ok to start warfarin per neuro * will resume warfarin 5 mg tonight f/u inr tomorrow (2) Atrial Flutter * Cardiology consulted (Dr. Brock) on board; case discussed * elevated D-dimer-->Ct angio negative for PE * 12/12/16 tachycardia-->Adenosine given --> Atrial flutter--> did not improve with digoxin, cardizem, and amiodarone, requiring cardioversion, which converted * Thyroid studies negative * Amiodarone 200mg PO daily * has been in NSR * we will renew tele (3) Hypertension * monitor vital signs * controlled * elevated yesterday afternoon-->restarted Norvasc 5mg PO daily, we will increase to 10 daily (4) Deep vein thrombosis * per 12/12/16 Doppler: right peroneal vein DVT+ * Patient is currently on warfarin * pt is ok to start warfarin per neuro Dr. Simpson * warfarin 5 mg PO tonight (5) Dyslipidemia -continue crestor 5 daily (6) Acute respiratory failure (resolved) * s/p tracheostomy 10/28/16 * Patient completed trach collar. * Weaning completed; off ventilator * Saturating well. * Monitor dressing change of trach site * Pulmonary (Dr. Bailey) consulted to assist with weaning protocol * Completed decannulation on 10/30/16; saturating well * Consulted speech-->patient not appropriate for speak-easy valve status post decannulation; encourage speaking * Discussed with ENT-->outpatient due to mild vocal cord dysfunction * Discussed with swallow-->patient has a strong cough, can be started on pleasure feedings and/or pureed diet to try to transition off peg * pt now on regular diet, tolerating well * we will f.u with gi about removal of peg * calorie count pending (6) CVA * Hemorrhagic stroke with associated hypotension and basal ganglia involvement on admission * hemoglobin a1c:5.7 * Cholesterol: 202, LDL:130 HDL:52 * Aspirin 81mg PO daily * Blood pressure control monitoring * continue Crestor 5mg PO qHS * s/p peg placement (7) Sepsis (resolved) Per 11/05; Fever 103F and associated leukocytosis: 21.8; infection: pneumonia ( which was treated with Meropenem during the course of hospitalization) Infectious disease on board (Dr. Chavez) 10/21 Sputum-Klebsiella (sensitive to Maxipime) 10/25 Serratia and Enterobacter (sensitive to Maxipime) 10/31 Sputum: normal 11/06: Enterobacter which is sensitive Meropenem (switch from Maxipime) 11/06 Urine culture: yeast 11/09 Urine culture: yeast 11/09 Blood culture: no growth for 5 days X2 11/21 Urine culture: yeast 11/26: Urine culture: Pseudomonas 12/08: Urine culture: VRE UTI (patient not septic at time of current UTI) -repeat urine culture shows contamination, urine culture 12/21 negative -continue tylenol PRN for fevers (8) Urinary Tract Infection (current) * 12/08/16 VRE UTI * Multiple UTI infections * Yeast urine treated with Diflucan during hospitalization * Pseudomonas treated with Cipro during hospitalization * VRE UTI treated with Tigecycline and contact isolation * [place] condom catheter changed recently * Infectious disease (Dr. Chavez) on board * Tigecycline 50mg IV Q 12hours (active since 12/11/16, no longer active), dc recently * Florastor 250mg PO bid * Monitor LFTS/renal function * dumas has been discontinued * repeat urine negative, tigecycline has been discontinued * contact dc (7) Hypernatremia -resolved (8) Prophylactic care * s/p peg placement * Weaned off vent; saturating well s/p decannulation * Continue with aggressive PT/OT-->latest PT noted recommending for subacute/ LTAC * PT/OT * Monitor calorie count * INR is therapeutic- lovenox discontinued * coumadin tonight * pepcid 20 PO daily Disposition * repeat urine negative. * Ordered for calorie count * Will need anticoagulation for for DVT+ * Pending insurance for [facility] care facility for rehabilitation and peg feedings, will need constant monitoring. Patient currently wears mittens to prevent him from pulling on his tubes and is unsafe for home. Will need to clarify with family regarding the type of care patient will need with both patient's son and daughters * discussed with Dr. Saldana <Johny Saldana - Last Filed: 12/31/16 07:38> Objective - Vital Signs/Intake and Output Vital Signs (last 24 hours): Temp Pulse Resp BP Pulse Ox 98.3 F 76 20 107/65 99 12/30/16 23:10 12/31/16 04:17 12/30/16 23:10 12/30/16 23:10 12/30/16 23:10 Intake and Output: 12/31/16 12/31/16 06:59 18:59 Intake Total 120 Output Total 550 Balance -430 - Medications Medications: Current Medications Amiodarone HCl (Cordarone) 200 mg PO DAILY [facility] Last Admin: 12/30/16 09:37 Dose: 200 mg Amlodipine Besylate (Norvasc) 10 mg PO DAILY [facility] Last Admin: 12/30/16 09:37 Dose: 10 mg Aspirin (Aspirin Chewable) 81 mg PO DAILY [facility] Last Admin: 12/30/16 09:37 Dose: 81 mg Rosuvastatin Calcium (Crestor) 5 mg PO HS [facility] Last Admin: 12/30/16 21:35 Dose: 5 mg Saccharomyces Boulardii (Florastor) 250 mg PO BID [facility] Last Admin: 12/30/16 18:36 Dose: 250 mg - Labs Labs: 12/27/16 07:40 12/28/16 06:16 PT 39.6 SECONDS (9.7-12.2) H* D 12/31/16 06:13 INR 3.4 12/31/16 06:13 APTT 55 SECONDS (21-34) H D 12/25/16 06:40 Attending/Attestation - Attestation I have personally seen and examined this patient.: Yes I have fully participated in the care of the patient.: Yes I have reviewed all pertinent clinical information, including history, physical exam and plan: Yes Notes (Text): 12/31/16 07:36 Medical Attending: Patient was seen and examined by me. Agree with the above by resident. At this time the patient is not under any acute distress, he is alert and following commands. Tolerating PO diet Encouraged further PT, out of bed to chair. Hopefully will become stronger as time goes by thank you Johny Saldana
--- NOTE | 2016-12-31 04:20 | CP.PCM.PN ---
<Onofre Quiroz - Last Filed: 12/31/16 07:36> Subjective - Date & Time of Evaluation Date of Evaluation: 12/31/16 Time of Evaluation: 06:30 - Subjective Subjective: Hospitalist Note- Dr. Saldana's service Patient seen and evaluated at bedside. He appears to be in no acute distress and resting comfortably. No f/c/n/v/d or cp. Objective - Vital Signs/Intake and Output Vital Signs (last 24 hours): Temp Pulse Resp BP Pulse Ox 98.3 F 97 H 20 107/65 99 12/30/16 23:10 12/30/16 23:10 12/30/16 23:10 12/30/16 23:10 12/30/16 23:10 - Medications Medications: Current Medications Amiodarone HCl (Cordarone) 200 mg PO DAILY [facility] Last Admin: 12/30/16 09:37 Dose: 200 mg Amlodipine Besylate (Norvasc) 10 mg PO DAILY [facility] Last Admin: 12/30/16 09:37 Dose: 10 mg Aspirin (Aspirin Chewable) 81 mg PO DAILY [facility] Last Admin: 12/30/16 09:37 Dose: 81 mg Rosuvastatin Calcium (Crestor) 5 mg PO HS [facility] Last Admin: 12/30/16 21:35 Dose: 5 mg Saccharomyces Boulardii (Florastor) 250 mg PO BID [facility] Last Admin: 12/30/16 18:36 Dose: 250 mg - Labs Labs: 12/27/16 07:40 12/28/16 06:16 PT 30.3 SECONDS (9.7-12.2) H* 12/30/16 06:16 INR 2.6 12/30/16 06:16 APTT 55 SECONDS (21-34) H D 12/25/16 06:40 - Constitutional Appears: Non-toxic, No Acute Distress - Head Exam Head Exam: ATRAUMATIC, NORMOCEPHALIC - Eye Exam Eye Exam: Normal appearance - ENT Exam ENT Exam: Mucous Membranes Moist - Neck Exam Neck Exam: Normal Inspection - Respiratory Exam Respiratory Exam: Clear to Ausculation Bilateral, NORMAL BREATHING PATTERN. absent: Rales, Rhonchi, Wheezes - Cardiovascular Exam Cardiovascular Exam: REGULAR RHYTHM, +S1, +S2 - GI/Abdominal Exam GI & Abdominal Exam: Soft, Normal Bowel Sounds. absent: Tenderness - Extremities Exam Extremities Exam: Normal Inspection - Neurological Exam Neurological Exam: Alert, Awake - Psychiatric Exam Psychiatric exam: Normal Affect, Normal Mood - Skin Skin Exam: Dry, Intact, Warm Assessment and Plan - Assessment and Plan (Free Text) Assessment: This is a 56 year old male with unknown past medical history presenting for medical evaluation of intracranial bleed. Plan: (1) Intracranial hemorrhage 10/18 CT Head: Left basal ganglia acute hemorrhage, possibly hypertensive with associated intraventricular hemorrhage and mass effect upon the left lateral aspect of the 3rd ventricle with the tip shift of the 3rd ventricle towards the right side. No generalized midline shift. Air-fluid level in sphenoid sinus common nonspecific. Please correlate for concern regarding acute sinusitis. Mild involutional changes. 10/19 CT Head: little interval change in the known 2.0 x 2.7 acute hematoma in left thalamus with intra ventricular extension of hemorrhage. Interval mild worsening of obstructive hydrocephalus. 10/24 CT Head: little interval change in the size of left thalamic hemorrhage 2.4x2.9 cm with intraventricular extension of hemorrhage and mild obstructive hydrocephalus. 2 mm midline shift from left to right with no evidence of herniation. Near complete resolution of hemorrhage within 4th ventricle. 11/03/16 CT Head; Interval decrease in size and density left basal ganglia hematoma; well-circumscribed peripheral rim of low attentuation edema about hematoma; combination of brain edema and brain necrosis; intraventricular hemorrhage has diminished. Ventricles hae also decreased in size temporal horns and atria remain prominent. Persistent compression of the 3rd and left lateral ventricle 12/16/16 CT Head: no acute findings noted * Neurosurgery per initial consult-->patient's prognosis dismal at beginning of admission * Neurology (Dr. Simpson) on board-->per 10/26 note: patient has attained maximum response from neuro point of view from this admission; keep nutritional status optimized and avoid infections; treat with peg/trach; no antiplatelets for next 4-6 weeks (maintain MAP ~100) * On baby aspirin 81mg PO daily; discussed with neurology on 11/22/16 * Patient started on therapeutic Lovenox for DVT+, stopped and transitioned to warfarin, will follow-up INR * Pt is ok to start warfarin per neuro * given warfarin 5 mg overnight * continue to monitor INR (2) Atrial Flutter * Cardiology consulted (Dr. Brock) on board; case discussed * elevated D-dimer-->Ct angio negative for PE * 12/12/16 tachycardia-->Adenosine given --> Atrial flutter--> did not improve with digoxin, cardizem, and amiodarone, requiring cardioversion, which converted * Thyroid studies negative * Amiodarone 200mg PO daily * has been in NSR * we will renew tele (3) Hypertension * monitor vital signs * controlled * restarted Norvasc 5mg PO daily (4) Deep vein thrombosis * per 12/12/16 Doppler: right peroneal vein DVT+ * Patient is currently on warfarin * pt is ok to start warfarin per neuro Dr. Simpson * warfarin 5 mg PO (5) Dyslipidemia * continue crestor 5 daily (6) Acute respiratory failure (resolved) * s/p tracheostomy 10/28/16 * Patient completed trach collar. * Weaning completed; off ventilator * Saturating well. * Monitor dressing change of trach site * Pulmonary (Dr. Bailey) consulted to assist with weaning protocol * Completed decannulation on 10/30/16; saturating well * Consulted speech-->patient not appropriate for speak-easy valve status post decannulation; encourage speaking * Discussed with ENT-->outpatient due to mild vocal cord dysfunction * Discussed with swallow-->patient has a strong cough, can be started on pleasure feedings and/or pureed diet to try to transition off peg * pt now on regular diet, tolerating well * we will f.u with gi about removal of peg * calorie count pending (6) CVA * Hemorrhagic stroke with associated hypotension and basal ganglia involvement on admission * hemoglobin a1c:5.7 * Cholesterol: 202, LDL:130 HDL:52 * Aspirin 81mg PO daily * Blood pressure control monitoring * continue Crestor 5mg PO qHS * s/p peg placement (7) Sepsis (resolved) Per 11/05; Fever 103F and associated leukocytosis: 21.8; infection: pneumonia ( which was treated with Meropenem during the course of hospitalization) Infectious disease on board (Dr. Chavez) 10/21 Sputum-Klebsiella (sensitive to Maxipime) 10/25 Serratia and Enterobacter (sensitive to Maxipime) 10/31 Sputum: normal 11/06: Enterobacter which is sensitive Meropenem (switch from Maxipime) 11/06 Urine culture: yeast 11/09 Urine culture: yeast 11/09 Blood culture: no growth for 5 days X2 11/21 Urine culture: yeast 11/26: Urine culture: Pseudomonas 12/08: Urine culture: VRE UTI (patient not septic at time of current UTI) -repeat urine culture shows contamination, urine culture 12/21 negative -continue tylenol PRN for fevers (8) Urinary Tract Infection (current) * 12/08/16 VRE UTI * Multiple UTI infections * Yeast urine treated with Diflucan during hospitalization * Pseudomonas treated with Cipro during hospitalization * VRE UTI treated with Tigecycline and contact isolation * [place] condom catheter changed recently * Infectious disease (Dr. Chavez) on board * Tigecycline 50mg IV Q 12hours (active since 12/11/16, no longer active), dc recently * Florastor 250mg PO bid * Monitor LFTS/renal function * dumas has been discontinued * repeat urine negative, tigecycline has been discontinued * contact dc (7) Hypernatremia -resolved (8) Prophylactic care * s/p peg placement * Weaned off vent; saturating well s/p decannulation * Continue with aggressive PT/OT-->latest PT noted recommending for subacute/ LTAC * PT/OT * Monitor calorie count * INR is therapeutic- lovenox discontinued * coumadin tonight * pepcid 20 PO daily Disposition * repeat urine negative. * Ordered for calorie count * Will need anticoagulation for for DVT+ * Pending insurance for [facility] care facility for rehabilitation and peg feedings, will need constant monitoring. Patient currently wears mittens to prevent him from pulling on his tubes and is unsafe for home. Will need to clarify with family regarding the type of care patient will need with both patient's son and daughters * discussed with attending <Johny Saldana - Last Filed: 12/31/16 10:55> Objective - Vital Signs/Intake and Output Vital Signs (last 24 hours): Temp Pulse Resp BP Pulse Ox 98.3 F 72 20 136/78 100 12/31/16 07:07 12/31/16 08:00 12/31/16 07:07 12/31/16 07:07 12/31/16 07:07 Intake and Output: 12/31/16 12/31/16 06:59 18:59 Intake Total 120 Output Total 550 Balance -430 - Medications Medications: Current Medications Amiodarone HCl (Cordarone) 200 mg PO DAILY [facility] Last Admin: 12/31/16 09:35 Dose: 200 mg Amlodipine Besylate (Norvasc) 10 mg PO DAILY [facility] Last Admin: 12/31/16 09:35 Dose: 10 mg Aspirin (Aspirin Chewable) 81 mg PO DAILY [facility] Last Admin: 12/31/16 09:35 Dose: 81 mg Rosuvastatin Calcium (Crestor) 5 mg PO HS [facility] Last Admin: 12/30/16 21:35 Dose: 5 mg Saccharomyces Boulardii (Florastor) 250 mg PO BID [facility] Last Admin: 12/31/16 09:34 Dose: 250 mg - Labs Labs: 12/27/16 07:40 12/28/16 06:16 PT 39.6 SECONDS (9.7-12.2) H* D 12/31/16 06:13 INR 3.4 12/31/16 06:13 APTT 55 SECONDS (21-34) H D 12/25/16 06:40 Attending/Attestation - Attestation I have personally seen and examined this patient.: Yes I have fully participated in the care of the patient.: Yes I have reviewed all pertinent clinical information, including history, physical exam and plan: Yes Notes (Text): 12/31/16 10:54 Medical Attnd: Today will hold the coumadin tonight. Recheck INR tommorow. thank you Johny Saldana
[2016-12-31 06:30] LABS: INR 3.4
[2016-12-31] MEDS: Saccharomyces Boulardi 250 mg Cap PO SCH ×2 (09:34→17:46)
--- NOTE | 2017-01-01 03:13 | CP.PCM.PN ---
<Onofre Quiroz - Last Filed: 01/01/17 06:51> Subjective - Date & Time of Evaluation Date of Evaluation: 01/01/17 Time of Evaluation: 06:30 - Subjective Subjective: Hospitalist note- Dr. Saldana's service Pt seen and examined at bedside. No acute distress. No fevers, chills, vomiting , diarrhea. No adverse events over night. Objective - Vital Signs/Intake and Output Vital Signs (last 24 hours): Temp Pulse Resp BP Pulse Ox 99.3 F 95 H 20 120/75 100 01/01/17 00:25 01/01/17 00:25 01/01/17 00:25 01/01/17 00:25 01/01/17 00:25 Intake and Output: 12/31/16 01/01/17 18:59 06:59 Intake Total 320 Balance 320 - Medications Medications: Current Medications Amiodarone HCl (Cordarone) 200 mg PO DAILY [facility] Last Admin: 12/31/16 09:35 Dose: 200 mg Amlodipine Besylate (Norvasc) 10 mg PO DAILY [facility] Last Admin: 12/31/16 09:35 Dose: 10 mg Aspirin (Aspirin Chewable) 81 mg PO DAILY [facility] Last Admin: 12/31/16 09:35 Dose: 81 mg Rosuvastatin Calcium (Crestor) 5 mg PO HS [facility] Last Admin: 12/31/16 21:00 Dose: 5 mg Saccharomyces Boulardii (Florastor) 250 mg PO BID [facility] Last Admin: 12/31/16 17:46 Dose: 250 mg - Labs Labs: 12/27/16 07:40 12/28/16 06:16 PT 39.6 SECONDS (9.7-12.2) H* D 12/31/16 06:13 INR 3.4 12/31/16 06:13 APTT 55 SECONDS (21-34) H D 12/25/16 06:40 - Constitutional Appears: Non-toxic, No Acute Distress - Head Exam Head Exam: ATRAUMATIC, NORMOCEPHALIC - Eye Exam Eye Exam: Normal appearance - ENT Exam ENT Exam: Mucous Membranes Moist - Neck Exam Neck Exam: Normal Inspection - Respiratory Exam Respiratory Exam: NORMAL BREATHING PATTERN. absent: Decreased Breath Sounds, Respiratory Distress - Cardiovascular Exam Cardiovascular Exam: REGULAR RHYTHM, +S1, +S2 - GI/Abdominal Exam GI & Abdominal Exam: Soft, Normal Bowel Sounds. absent: Tenderness - Extremities Exam Extremities Exam: Normal Inspection. absent: Pedal Edema - Neurological Exam Neurological Exam: Alert, Awake - Skin Skin Exam: Dry, Intact, Warm Assessment and Plan - Assessment and Plan (Free Text) Plan: This is a 56 year old male with unknown past medical history presenting for medical evaluation of intracranial bleed. (1) Intracranial hemorrhage 10/18 CT Head: Left basal ganglia acute hemorrhage, possibly hypertensive with associated intraventricular hemorrhage and mass effect upon the left lateral aspect of the 3rd ventricle with the tip shift of the 3rd ventricle towards the right side. No generalized midline shift. Air-fluid level in sphenoid sinus common nonspecific. Please correlate for concern regarding acute sinusitis. Mild involutional changes. 10/19 CT Head: little interval change in the known 2.0 x 2.7 acute hematoma in left thalamus with intra ventricular extension of hemorrhage. Interval mild worsening of obstructive hydrocephalus. 10/24 CT Head: little interval change in the size of left thalamic hemorrhage 2.4x2.9 cm with intraventricular extension of hemorrhage and mild obstructive hydrocephalus. 2 mm midline shift from left to right with no evidence of herniation. Near complete resolution of hemorrhage within 4th ventricle. 11/03/16 CT Head; Interval decrease in size and density left basal ganglia hematoma; well-circumscribed peripheral rim of low attentuation edema about hematoma; combination of brain edema and brain necrosis; intraventricular hemorrhage has diminished. Ventricles hae also decreased in size temporal horns and atria remain prominent. Persistent compression of the 3rd and left lateral ventricle 12/16/16 CT Head: no acute findings noted * Neurosurgery per initial consult-->patient's prognosis dismal at beginning of admission * Neurology (Dr. Simpson) on board-->per 10/26 note: patient has attained maximum response from neuro point of view from this admission; keep nutritional status optimized and avoid infections; treat with peg/trach; no antiplatelets for next 4-6 weeks (maintain MAP ~100) * On baby aspirin 81mg PO daily; discussed with neurology on 11/22/16 * Patient started on therapeutic Lovenox for DVT+, stopped and transitioned to warfarin, will follow-up INR * Pt is ok to start warfarin per neuro * f/u repeat INR (2) Atrial Flutter * Cardiology consulted (Dr. Brock) on board; case discussed * elevated D-dimer-->Ct angio negative for PE * 12/12/16 tachycardia-->Adenosine given --> Atrial flutter--> did not improve with digoxin, cardizem, and amiodarone, requiring cardioversion, which converted * Thyroid studies negative * Amiodarone 200mg PO daily * has been in NSR * cont tele (3) Hypertension * monitor vital signs * controlled * elevated yesterday afternoon-->restarted Norvasc 5mg PO daily, we will increase to 10 daily (4) Deep vein thrombosis * per 12/12/16 Doppler: right peroneal vein DVT+ * Patient is currently on warfarin * pt is ok to start warfarin per neuro Dr. Simpson * warfarin 5 mg PO tonight (5) Dyslipidemia -continue crestor 5 daily (6) Acute respiratory failure (resolved) * s/p tracheostomy 10/28/16 * Patient completed trach collar. * Weaning completed; off ventilator * Saturating well. * Monitor dressing change of trach site * Pulmonary (Dr. Bailey) consulted to assist with weaning protocol * Completed decannulation on 10/30/16; saturating well * Consulted speech-->patient not appropriate for speak-easy valve status post decannulation; encourage speaking * Discussed with ENT-->outpatient due to mild vocal cord dysfunction * Discussed with swallow-->patient has a strong cough, can be started on pleasure feedings and/or pureed diet to try to transition off peg * pt now on regular diet, tolerating well * we will f.u with gi about removal of peg * calorie count pending (6) CVA * Hemorrhagic stroke with associated hypotension and basal ganglia involvement on admission * hemoglobin a1c:5.7 * Cholesterol: 202, LDL:130 HDL:52 * Aspirin 81mg PO daily * Blood pressure control monitoring * continue Crestor 5mg PO qHS * s/p peg placement (7) Sepsis (resolved) Per 11/05; Fever 103F and associated leukocytosis: 21.8; infection: pneumonia ( which was treated with Meropenem during the course of hospitalization) Infectious disease on board (Dr. Chavez) 10/21 Sputum-Klebsiella (sensitive to Maxipime) 10/25 Serratia and Enterobacter (sensitive to Maxipime) 10/31 Sputum: normal 11/06: Enterobacter which is sensitive Meropenem (switch from Maxipime) 11/06 Urine culture: yeast 11/09 Urine culture: yeast 11/09 Blood culture: no growth for 5 days X2 11/21 Urine culture: yeast 11/26: Urine culture: Pseudomonas 12/08: Urine culture: VRE UTI (patient not septic at time of current UTI) -repeat urine culture shows contamination, urine culture 12/21 negative -continue tylenol PRN for fevers (8) Urinary Tract Infection (current) * 12/08/16 VRE UTI * Multiple UTI infections * Yeast urine treated with Diflucan during hospitalization * Pseudomonas treated with Cipro during hospitalization * VRE UTI treated with Tigecycline and contact isolation * [place] condom catheter changed recently * Infectious disease (Dr. Chavez) on board * Tigecycline 50mg IV Q 12hours (active since 12/11/16, no longer active), dc recently * Florastor 250mg PO bid * Monitor LFTS/renal function * dumas has been discontinued * repeat urine negative, tigecycline has been discontinued * contact dc (7) Hypernatremia -resolved (8) Prophylactic care * s/p peg placement * Weaned off vent; saturating well s/p decannulation * Continue with aggressive PT/OT-->latest PT noted recommending for subacute/ LTAC * PT/OT * Monitor calorie count * INR is therapeutic- lovenox discontinued * coumadin tonight * pepcid 20 PO daily Disposition * repeat urine negative. * Ordered for calorie count * Will need anticoagulation for for DVT+ * Pending insurance for shelter care facility for rehabilitation and peg feedings, will need constant monitoring. Patient currently wears mittens to prevent him from pulling on his tubes and is unsafe for home. Will need to clarify with family regarding the type of care patient will need with both patient's son and daughters * discussed with Dr. Saldana <Johny Saldana - Last Filed: 01/01/17 09:10> Objective - Vital Signs/Intake and Output Vital Signs (last 24 hours): Temp Pulse Resp BP Pulse Ox 99.2 F 88 18 116/76 99 01/01/17 07:15 01/01/17 08:00 01/01/17 07:15 01/01/17 07:15 01/01/17 07:15 Intake and Output: 01/01/17 01/01/17 06:59 18:59 Intake Total 420 Balance 420 - Medications Medications: Current Medications Amiodarone HCl (Cordarone) 200 mg PO DAILY [facility] Last Admin: 12/31/16 09:35 Dose: 200 mg Amlodipine Besylate (Norvasc) 10 mg PO DAILY [facility] Last Admin: 12/31/16 09:35 Dose: 10 mg Aspirin (Aspirin Chewable) 81 mg PO DAILY [facility] Last Admin: 12/31/16 09:35 Dose: 81 mg Rosuvastatin Calcium (Crestor) 5 mg PO HS [facility] Last Admin: 12/31/16 21:00 Dose: 5 mg Saccharomyces Boulardii (Florastor) 250 mg PO BID [facility] Last Admin: 12/31/16 17:46 Dose: 250 mg - Labs Labs: 12/27/16 07:40 12/28/16 06:16 PT 35.4 SECONDS (9.7-12.2) H* 01/01/17 07:33 INR 3.0 01/01/17 07:33 APTT 55 SECONDS (21-34) H D 12/25/16 06:40 Attending/Attestation - Attestation I have personally seen and examined this patient.: Yes I have fully participated in the care of the patient.: Yes I have reviewed all pertinent clinical information, including history, physical exam and plan: Yes Notes (Text): Medical Attending: Patient was seen and examined by me. Agree with the above note by the resident The patient INR was elevated so will hold coumadin tonight. thank you Johny Saldana
[2017-01-01] MEDS: Saccharomyces Boulardi 250 mg Cap PO SCH ×2 (10:04→17:58)
[2017-01-02 07:15] LABS: BASO % 0.4 % (0.0-2.0); EOS # 0.3 K/uL (0.0-0.7); EOS % 3.2 % (0.0-4.0); HEMATOCRIT 30.3 % (35.0-51.0); LYMPH # 1.9 K/uL (1.0-4.3); LYMPH % 24.3 % (20.0-40.0); MEAN CELL VOLUME 84.1 fL (80.0-94.0); MEAN CORPUSCULAR HEMOGLOBIN 27.8 pg (27.0-31.0); MEAN PLATELET VOLUME 8.4 fL (7.2-11.7); MONO # 0.6 K/uL (0.0-0.8); MONO % 7.5 % (0.0-10.0); NRBC % 0.1 % (0.0-2.0); RED CELL DISTRIBUTION WIDTH 17.5 % (11.5-14.5); WHITE BLOOD COUNT 7.8 K/uL (4.8-10.8)
[2017-01-02 07:19] LABS: CHLORIDE 100 mmol/L (98-107); POTASSIUM 4.2 mmol/L (3.6-5.2); SODIUM 136 mmol/L (132-148)
[2017-01-02 07:22] LABS: ALB/GLOB RATIO 0.9 (1.0-2.1); CARBON DIOXIDE 30 mmol/L (22-30); INR 2.1; TOTAL PROTEIN 6.4 g/dL (6.3-8.3)
[2017-01-02 07:23] LABS: ALKALINE PHOSPHATASE 75 U/L (38-126); ALT/SGPT 66 U/L (21-72); AST/SGOT 37 U/L (17-59); BILIRUBIN,TOTAL 0.6 mg/dL (0.2-1.3); BLOOD UREA NITROGEN 15 mg/dL (9-20); CALCIUM 8.6 mg/dl (8.6-10.4); GFR AFRICAN-AMERICAN > 60; GLUCOSE,RANDOM 81 mg/dL (75-110); PHOSPHOROUS 4.7 mg/dL (2.5-4.5)
[2017-01-02 07:24] LABS: MAGNESIUM 1.9 mg/dL (1.6-2.3)
[2017-01-02] MEDS: Saccharomyces Boulardi 250 mg Cap PO SCH ×2 (09:25→17:40)
--- NOTE | 2017-01-02 10:59 | CP.PCM.PN ---
<Jh Minor - Last Filed: 01/02/17 10:59> Subjective - Date & Time of Evaluation Date of Evaluation: 01/02/17 Time of Evaluation: 10:55 - Subjective Subjective: Med progress note. Attending: Dr. Saldana Pt seen and examined at bedside. No acute distress. No events overnight. Pt now using urinal. Warfarin 3 mg tonight. No complaints. Objective - Vital Signs/Intake and Output Vital Signs (last 24 hours): Temp Pulse Resp BP Pulse Ox 97.6 F 75 20 127/79 100 01/02/17 07:10 01/02/17 08:01 01/02/17 07:10 01/02/17 07:10 01/02/17 07:10 Intake and Output: 01/02/17 01/02/17 06:59 18:59 Intake Total 440 Output Total 1500 Balance -1060 - Medications Medications: Current Medications Amiodarone HCl (Cordarone) 200 mg PO DAILY [facility] Last Admin: 01/02/17 09:24 Dose: 200 mg Amlodipine Besylate (Norvasc) 10 mg PO DAILY [facility] Last Admin: 01/02/17 09:24 Dose: 10 mg Aspirin (Aspirin Chewable) 81 mg PO DAILY [facility] Last Admin: 01/02/17 09:24 Dose: 81 mg Rosuvastatin Calcium (Crestor) 5 mg PO HS [facility] Last Admin: 01/01/17 22:20 Dose: 5 mg Saccharomyces Boulardii (Florastor) 250 mg PO BID [facility] Last Admin: 01/02/17 09:25 Dose: 250 mg - Labs Labs: 01/02/17 06:56 01/02/17 06:56 PT 23.8 SECONDS (9.7-12.2) H D 01/02/17 06:56 INR 2.1 D 01/02/17 06:56 APTT 55 SECONDS (21-34) H D 12/25/16 06:40 - Constitutional Appears: Non-toxic, No Acute Distress - Head Exam Head Exam: ATRAUMATIC, NORMAL INSPECTION, NORMOCEPHALIC - Eye Exam Eye Exam: EOMI - ENT Exam ENT Exam: Mucous Membranes Moist - Neck Exam Neck Exam: Full ROM, Normal Inspection - Respiratory Exam Respiratory Exam: NORMAL BREATHING PATTERN. absent: Respiratory Distress - Cardiovascular Exam Cardiovascular Exam: +S1, +S2 - GI/Abdominal Exam GI & Abdominal Exam: Soft, Normal Bowel Sounds. absent: Tenderness - Extremities Exam Extremities Exam: Full ROM, Normal Inspection - Neurological Exam Neurological Exam: Alert, Awake, Oriented x3 - Psychiatric Exam Psychiatric exam: Normal Affect, Normal Mood - Skin Skin Exam: Dry, Intact, Normal Color, Warm Assessment and Plan - Assessment and Plan (Free Text) Assessment: This is a 56 year old male with unknown past medical history presenting for medical evaluation of intracranial bleed. (1) Intracranial hemorrhage 10/18 CT Head: Left basal ganglia acute hemorrhage, possibly hypertensive with associated intraventricular hemorrhage and mass effect upon the left lateral aspect of the 3rd ventricle with the tip shift of the 3rd ventricle towards the right side. No generalized midline shift. Air-fluid level in sphenoid sinus common nonspecific. Please correlate for concern regarding acute sinusitis. Mild involutional changes. 10/19 CT Head: little interval change in the known 2.0 x 2.7 acute hematoma in left thalamus with intra ventricular extension of hemorrhage. Interval mild worsening of obstructive hydrocephalus. 10/24 CT Head: little interval change in the size of left thalamic hemorrhage 2.4x2.9 cm with intraventricular extension of hemorrhage and mild obstructive hydrocephalus. 2 mm midline shift from left to right with no evidence of herniation. Near complete resolution of hemorrhage within 4th ventricle. 11/03/16 CT Head; Interval decrease in size and density left basal ganglia hematoma; well-circumscribed peripheral rim of low attentuation edema about hematoma; combination of brain edema and brain necrosis; intraventricular hemorrhage has diminished. Ventricles hae also decreased in size temporal horns and atria remain prominent. Persistent compression of the 3rd and left lateral ventricle 12/16/16 CT Head: no acute findings noted * Neurosurgery per initial consult-->patient's prognosis dismal at beginning of admission * Neurology (Dr. Simpson) on board-->per 10/26 note: patient has attained maximum response from neuro point of view from this admission; keep nutritional status optimized and avoid infections; treat with peg/trach; no antiplatelets for next 4-6 weeks (maintain MAP ~100) * On baby aspirin 81mg PO daily; discussed with neurology on 11/22/16 * Patient started on therapeutic Lovenox for DVT+, stopped and transitioned to warfarin, will follow-up INR * Pt is ok to start warfarin per neuro * f/u repeat INR (2) Atrial Flutter * Cardiology consulted (Dr. Brock) on board; case discussed * elevated D-dimer-->Ct angio negative for PE * 12/12/16 tachycardia-->Adenosine given --> Atrial flutter--> did not improve with digoxin, cardizem, and amiodarone, requiring cardioversion, which converted * Thyroid studies negative * Amiodarone 200mg PO daily * has been in NSR * cont tele (3) Hypertension * monitor vital signs * controlled * elevated yesterday afternoon-->restarted Norvasc 5mg PO daily, we will increase to 10 daily (4) Deep vein thrombosis * per 12/12/16 Doppler: right peroneal vein DVT+ * Patient is currently on warfarin * pt is ok to start warfarin per neuro Dr. Simpson * warfarin 3 mg PO tonight (5) Dyslipidemia -continue crestor 5 daily (6) Acute respiratory failure (resolved) * s/p tracheostomy 10/28/16 * Patient completed trach collar. * Weaning completed; off ventilator * Saturating well. * Monitor dressing change of trach site * Pulmonary (Dr. Bailey) consulted to assist with weaning protocol * Completed decannulation on 10/30/16; saturating well * Consulted speech-->patient not appropriate for speak-easy valve status post decannulation; encourage speaking * Discussed with ENT-->outpatient due to mild vocal cord dysfunction * Discussed with swallow-->patient has a strong cough, can be started on pleasure feedings and/or pureed diet to try to transition off peg * pt now on regular diet, tolerating well * we will f.u with gi about removal of peg * calorie count pending (6) CVA * Hemorrhagic stroke with associated hypotension and basal ganglia involvement on admission * hemoglobin a1c:5.7 * Cholesterol: 202, LDL:130 HDL:52 * Aspirin 81mg PO daily * Blood pressure control monitoring * continue Crestor 5mg PO qHS * s/p peg placement (7) Sepsis (resolved) Per 11/05; Fever 103F and associated leukocytosis: 21.8; infection: pneumonia ( which was treated with Meropenem during the course of hospitalization) Infectious disease on board (Dr. Chavez) 10/21 Sputum-Klebsiella (sensitive to Maxipime) 10/25 Serratia and Enterobacter (sensitive to Maxipime) 10/31 Sputum: normal 11/06: Enterobacter which is sensitive Meropenem (switch from Maxipime) 11/06 Urine culture: yeast 11/09 Urine culture: yeast 11/09 Blood culture: no growth for 5 days X2 11/21 Urine culture: yeast 11/26: Urine culture: Pseudomonas 12/08: Urine culture: VRE UTI (patient not septic at time of current UTI) -repeat urine culture shows contamination, urine culture 12/21 negative -continue tylenol PRN for fevers (8) Urinary Tract Infection (current) * 12/08/16 VRE UTI * Multiple UTI infections * Yeast urine treated with Diflucan during hospitalization * Pseudomonas treated with Cipro during hospitalization * VRE UTI treated with Tigecycline and contact isolation * [place] condom catheter changed recently * Infectious disease (Dr. Chavez) on board * Tigecycline 50mg IV Q 12hours (active since 12/11/16, no longer active), dc recently * Florastor 250mg PO bid * Monitor LFTS/renal function * dumas has been discontinued * repeat urine negative, tigecycline has been discontinued * contact dc (7) Hypernatremia -resolved (8) Prophylactic care * s/p peg placement * Weaned off vent; saturating well s/p decannulation * Continue with aggressive PT/OT-->latest PT noted recommending for subacute/ LTAC * PT/OT * Monitor calorie count * INR is therapeutic- lovenox discontinued * coumadin tonight * pepcid 20 PO daily Disposition * repeat urine negative. 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 Patient currently wears mittens to prevent him from pulling on his tubes and is unsafe for home. Will need to clarify with family regarding the type of care patient will need with both patient's son and daughters * discussed with Dr. Saldana <Johny Saldana - Last Filed: 01/02/17 17:11> Objective - Vital Signs/Intake and Output Vital Signs (last 24 hours): Temp Pulse Resp BP Pulse Ox 98.5 F 88 20 119/75 98 01/02/17 15:00 01/02/17 15:00 01/02/17 15:00 01/02/17 15:00 01/02/17 15:00 Intake and Output: 01/02/17 01/02/17 06:59 18:59 Intake Total 440 Output Total 1500 Balance -1060 - Medications Medications: Current Medications Amiodarone HCl (Cordarone) 200 mg PO DAILY [facility] Last Admin: 01/02/17 09:24 Dose: 200 mg Amlodipine Besylate (Norvasc) 10 mg PO DAILY [facility] Last Admin: 01/02/17 09:24 Dose: 10 mg Aspirin (Aspirin Chewable) 81 mg PO DAILY [facility] Last Admin: 01/02/17 09:24 Dose: 81 mg Rosuvastatin Calcium (Crestor) 5 mg PO HS [facility] Last Admin: 01/01/17 22:20 Dose: 5 mg Saccharomyces Boulardii (Florastor) 250 mg PO BID [facility] Last Admin: 01/02/17 09:25 Dose: 250 mg Warfarin Sodium (Coumadin) 3 mg PO 1800 [facility] Stop: 01/02/17 18:01 - Labs Labs: 01/02/17 06:56 01/02/17 06:56 PT 23.8 SECONDS (9.7-12.2) H D 01/02/17 06:56 INR 2.1 D 01/02/17 06:56 APTT 55 SECONDS (21-34) H D 12/25/16 06:40 Attending/Attestation - Attestation I have personally seen and examined this patient.: Yes I have fully participated in the care of the patient.: Yes I have reviewed all pertinent clinical information, including history, physical exam and plan: Yes Notes (Text): 01/02/17 17:11 Medical Attending: Agree with the above note by the resident. I do not have much in the way of new news to report. 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
[2017-01-03 06:33] LABS: INR 1.8
[2017-01-03] MEDS: Saccharomyces Boulardi 250 mg Cap PO SCH ×2 (10:30→17:19)
--- NOTE | 2017-01-03 15:46 | CP.PCM.PN ---
Subjective - Date & Time of Evaluation Date of Evaluation: 01/03/17 Time of Evaluation: 15:45 - Subjective Subjective: Med progress note. Attending: Dr. Adamson Pt seen and examined at bedside. No acute distress. No events overnight. Pt will get dose of lovenox and warfarin 5 tonight. Pending placement. Objective - Vital Signs/Intake and Output Vital Signs (last 24 hours): Temp Pulse Resp BP Pulse Ox 98.9 F 81 18 127/76 100 01/03/17 07:35 01/03/17 12:24 01/03/17 07:35 01/03/17 10:31 01/03/17 07:35 Intake and Output: 01/03/17 01/03/17 06:59 18:59 Intake Total 150 400 Output Total 900 500 Balance -750 -100 - Medications Medications: Current Medications Amiodarone HCl (Cordarone) 200 mg PO DAILY [facility] Last Admin: 01/03/17 10:29 Dose: 200 mg Amlodipine Besylate (Norvasc) 10 mg PO DAILY [facility] Last Admin: 01/03/17 10:29 Dose: 10 mg Aspirin (Aspirin Chewable) 81 mg PO DAILY [facility] Last Admin: 01/03/17 10:29 Dose: 81 mg Enoxaparin Sodium (Lovenox) 33 mg SC ONCE ONE Stop: 01/03/17 15:45 Rosuvastatin Calcium (Crestor) 5 mg PO HS [facility] Last Admin: 01/02/17 21:25 Dose: 5 mg Saccharomyces Boulardii (Florastor) 250 mg PO BID [facility] Last Admin: 01/03/17 10:30 Dose: 250 mg - Labs Labs: 01/02/17 06:56 01/02/17 06:56 PT 21.0 SECONDS (9.7-12.2) H 01/03/17 06:15 INR 1.8 01/03/17 06:15 APTT 55 SECONDS (21-34) H D 12/25/16 06:40 - Constitutional Appears: Non-toxic, No Acute Distress - Head Exam Head Exam: ATRAUMATIC, NORMAL INSPECTION, NORMOCEPHALIC - Eye Exam Eye Exam: EOMI - ENT Exam ENT Exam: Mucous Membranes Moist - Neck Exam Neck Exam: Full ROM, Normal Inspection - Respiratory Exam Respiratory Exam: NORMAL BREATHING PATTERN. absent: Respiratory Distress - Cardiovascular Exam Cardiovascular Exam: +S1, +S2 - GI/Abdominal Exam GI & Abdominal Exam: Soft, Normal Bowel Sounds. absent: Tenderness - Extremities Exam Extremities Exam: Full ROM, Normal Inspection - Neurological Exam Neurological Exam: Alert, Awake, Oriented x3 - Psychiatric Exam Psychiatric exam: Normal Affect, Normal Mood - Skin Skin Exam: Dry, Intact, Normal Color, Warm Assessment and Plan - Assessment and Plan (Free Text) Assessment: This is a 56 year old male with unknown past medical history presenting for medical evaluation of intracranial bleed. (1) Intracranial hemorrhage 10/18 CT Head: Left basal ganglia acute hemorrhage, possibly hypertensive with associated intraventricular hemorrhage and mass effect upon the left lateral aspect of the 3rd ventricle with the tip shift of the 3rd ventricle towards the right side. No generalized midline shift. Air-fluid level in sphenoid sinus common nonspecific. Please correlate for concern regarding acute sinusitis. Mild involutional changes. 10/19 CT Head: little interval change in the known 2.0 x 2.7 acute hematoma in left thalamus with intra ventricular extension of hemorrhage. Interval mild worsening of obstructive hydrocephalus. 10/24 CT Head: little interval change in the size of left thalamic hemorrhage 2.4x2.9 cm with intraventricular extension of hemorrhage and mild obstructive hydrocephalus. 2 mm midline shift from left to right with no evidence of herniation. Near complete resolution of hemorrhage within 4th ventricle. 11/03/16 CT Head; Interval decrease in size and density left basal ganglia hematoma; well-circumscribed peripheral rim of low attentuation edema about hematoma; combination of brain edema and brain necrosis; intraventricular hemorrhage has diminished. Ventricles hae also decreased in size temporal horns and atria remain prominent. Persistent compression of the 3rd and left lateral ventricle 12/16/16 CT Head: no acute findings noted * Neurosurgery per initial consult-->patient's prognosis dismal at beginning of admission * Neurology (Dr. Simpson) on board-->per 10/26 note: patient has attained maximum response from neuro point of view from this admission; keep nutritional status optimized and avoid infections; treat with peg/trach; no antiplatelets for next 4-6 weeks (maintain MAP ~100) * On baby aspirin 81mg PO daily; discussed with neurology on 11/22/16 * Patient started on therapeutic Lovenox for DVT+, stopped and transitioned to warfarin, will follow-up INR * Pt is ok to start warfarin per neuro * f/u repeat INR (2) Atrial Flutter * Cardiology consulted (Dr. Brock) on board; case discussed * elevated D-dimer-->Ct angio negative for PE * 12/12/16 tachycardia-->Adenosine given --> Atrial flutter--> did not improve with digoxin, cardizem, and amiodarone, requiring cardioversion, which converted * Thyroid studies negative * Amiodarone 200mg PO daily * has been in NSR * cont tele (3) Hypertension * monitor vital signs * controlled * elevated yesterday afternoon-->restarted Norvasc 5mg PO daily, we will increase to 10 daily (4) Deep vein thrombosis * per 12/12/16 Doppler: right peroneal vein DVT+ * Patient is currently on warfarin * pt is ok to start warfarin per neuro Dr. Simpson * warfarin 5 mg PO tonight plus stat dose of lovenox to bridge due to subtherapeutic inr (5) Dyslipidemia -continue crestor 5 daily (6) Acute respiratory failure (resolved) * s/p tracheostomy 10/28/16 * Patient completed trach collar. * Weaning completed; off ventilator * Saturating well. * Monitor dressing change of trach site * Pulmonary (Dr. Bailey) consulted to assist with weaning protocol * Completed decannulation on 10/30/16; saturating well * Consulted speech-->patient not appropriate for speak-easy valve status post decannulation; encourage speaking * Discussed with ENT-->outpatient due to mild vocal cord dysfunction * Discussed with swallow-->patient has a strong cough, can be started on pleasure feedings and/or pureed diet to try to transition off peg * pt now on regular diet, tolerating well * we will f.u with gi about removal of peg * calorie count pending (6) CVA * Hemorrhagic stroke with associated hypotension and basal ganglia involvement on admission * hemoglobin a1c:5.7 * Cholesterol: 202, LDL:130 HDL:52 * Aspirin 81mg PO daily * Blood pressure control monitoring * continue Crestor 5mg PO qHS * s/p peg placement (7) Sepsis (resolved) Per 11/05; Fever 103F and associated leukocytosis: 21.8; infection: pneumonia ( which was treated with Meropenem during the course of hospitalization) Infectious disease on board (Dr. Chavez) 10/21 Sputum-Klebsiella (sensitive to Maxipime) 10/25 Serratia and Enterobacter (sensitive to Maxipime) 10/31 Sputum: normal 11/06: Enterobacter which is sensitive Meropenem (switch from Maxipime) 11/06 Urine culture: yeast 11/09 Urine culture: yeast 11/09 Blood culture: no growth for 5 days X2 11/21 Urine culture: yeast 11/26: Urine culture: Pseudomonas 12/08: Urine culture: VRE UTI (patient not septic at time of current UTI) -repeat urine culture shows contamination, urine culture 12/21 negative -continue tylenol PRN for fevers (8) Urinary Tract Infection (current) * 12/08/16 VRE UTI * Multiple UTI infections * Yeast urine treated with Diflucan during hospitalization * Pseudomonas treated with Cipro during hospitalization * VRE UTI treated with Tigecycline and contact isolation * [place] condom catheter changed recently * Infectious disease (Dr. Chavez) on board * Tigecycline 50mg IV Q 12hours (active since 12/11/16, no longer active), dc recently * Florastor 250mg PO bid * Monitor LFTS/renal function * dumas has been discontinued * repeat urine negative, tigecycline has been discontinued * contact dc (7) Hypernatremia -resolved (8) Prophylactic care * s/p peg placement * Weaned off vent; saturating well s/p decannulation * Continue with aggressive PT/OT-->latest PT noted recommending for subacute/ LTAC * PT/OT * Monitor calorie count * INR is subtherapeutic- lovenox one dose today * coumadin tonight * pepcid 20 PO daily Disposition * repeat urine negative. * Ordered for calorie count * Will need anticoagulation for for DVT+ * Pending insurance for waterm[facility] care facility for rehabilitation, will need constant monitoring. Will need to clarify with family regarding the type of care patient will need with both patient's son and daughters. Pt awaiting improvement to climb stairs * discussed with Dr. Adamson.
[2017-01-03] MEDS ORDERED: Enoxaparin 40 mg Syringe SC ONE (16:30)
[2017-01-04 06:27] LABS: INR 1.8
[2017-01-04 06:35] LABS: CHLORIDE 103 mmol/L (98-107); SODIUM 139 mmol/L (132-148)
[2017-01-04 06:38] LABS: ALB/GLOB RATIO 0.9 (1.0-2.1); ALKALINE PHOSPHATASE 75 U/L (38-126); AST/SGOT 52 U/L (17-59); BILIRUBIN,TOTAL 0.4 mg/dL (0.2-1.3); BLOOD UREA NITROGEN 18 mg/dL (9-20); CARBON DIOXIDE 29 mmol/L (22-30); GFR AFRICAN-AMERICAN > 60; GLUCOSE,RANDOM 104 mg/dL (75-110); TOTAL PROTEIN 6.4 g/dL (6.3-8.3)
[2017-01-04 06:39] LABS: ALT/SGPT 84 U/L (21-72); CALCIUM 8.5 mg/dl (8.6-10.4)
[2017-01-04] MEDS: Saccharomyces Boulardi 250 mg Cap PO SCH (09:50)
--- NOTE | 2017-01-04 11:22 | CP.PCM.PN ---
<Jh Minor - Last Filed: 01/04/17 11:23> Subjective - Date & Time of Evaluation Date of Evaluation: 01/04/17 Time of Evaluation: 11:20 - Subjective Subjective: Med progress note. Attending: Dr. Vidal Pt seen and examined at bedside. No acute distress. No events overnight. Will order cbc for next morning, and inr. warfarin and lovenox today. No fevers, chills, vomiting, diarrhea. Objective - Vital Signs/Intake and Output Vital Signs (last 24 hours): Temp Pulse Resp BP Pulse Ox 98.3 F 78 18 123/76 100 01/04/17 08:01 01/04/17 08:01 01/04/17 08:01 01/04/17 08:01 01/04/17 08:01 Intake and Output: 01/04/17 01/04/17 06:59 18:59 Output Total 150 Balance -150 - Medications Medications: Current Medications Amiodarone HCl (Cordarone) 200 mg PO DAILY [facility] Last Admin: 01/04/17 09:51 Dose: 200 mg Amlodipine Besylate (Norvasc) 10 mg PO DAILY [facility] Last Admin: 01/04/17 09:50 Dose: 10 mg Aspirin (Aspirin Chewable) 81 mg PO DAILY [facility] Last Admin: 01/04/17 09:50 Dose: 81 mg Rosuvastatin Calcium (Crestor) 5 mg PO HS [facility] Last Admin: 01/03/17 22:32 Dose: 5 mg Warfarin Sodium (Coumadin) 5 mg PO 1800 [facility] Stop: 01/04/17 18:01 - Labs Labs: 01/02/17 06:56 01/04/17 06:03 PT 20.3 SECONDS (9.7-12.2) H 01/04/17 06:03 INR 1.8 01/04/17 06:03 APTT 43 SECONDS (21-34) H 01/04/17 06:03 - Constitutional Appears: Non-toxic, No Acute Distress - Head Exam Head Exam: ATRAUMATIC, NORMAL INSPECTION, NORMOCEPHALIC - Eye Exam Eye Exam: EOMI - ENT Exam ENT Exam: Mucous Membranes Moist - Neck Exam Neck Exam: Full ROM, Normal Inspection - Respiratory Exam Respiratory Exam: NORMAL BREATHING PATTERN. absent: Respiratory Distress - Cardiovascular Exam Cardiovascular Exam: +S1, +S2 - GI/Abdominal Exam GI & Abdominal Exam: Soft, Normal Bowel Sounds. absent: Tenderness - Extremities Exam Extremities Exam: Full ROM, Normal Inspection - Neurological Exam Neurological Exam: Alert, Awake, Oriented x3 - Psychiatric Exam Psychiatric exam: Normal Affect, Normal Mood - Skin Skin Exam: Dry, Intact, Normal Color, Warm Assessment and Plan - Assessment and Plan (Free Text) Assessment: This is a 56 year old male with unknown past medical history presenting for medical evaluation of intracranial bleed. (1) Intracranial hemorrhage 10/18 CT Head: Left basal ganglia acute hemorrhage, possibly hypertensive with associated intraventricular hemorrhage and mass effect upon the left lateral aspect of the 3rd ventricle with the tip shift of the 3rd ventricle towards the right side. No generalized midline shift. Air-fluid level in sphenoid sinus common nonspecific. Please correlate for concern regarding acute sinusitis. Mild involutional changes. 10/19 CT Head: little interval change in the known 2.0 x 2.7 acute hematoma in left thalamus with intra ventricular extension of hemorrhage. Interval mild worsening of obstructive hydrocephalus. 10/24 CT Head: little interval change in the size of left thalamic hemorrhage 2.4x2.9 cm with intraventricular extension of hemorrhage and mild obstructive hydrocephalus. 2 mm midline shift from left to right with no evidence of herniation. Near complete resolution of hemorrhage within 4th ventricle. 11/03/16 CT Head; Interval decrease in size and density left basal ganglia hematoma; well-circumscribed peripheral rim of low attentuation edema about hematoma; combination of brain edema and brain necrosis; intraventricular hemorrhage has diminished. Ventricles hae also decreased in size temporal horns and atria remain prominent. Persistent compression of the 3rd and left lateral ventricle 12/16/16 CT Head: no acute findings noted * Neurosurgery per initial consult-->patient's prognosis dismal at beginning of admission * Neurology (Dr. Simpson) on board-->per 10/26 note: patient has attained maximum response from neuro point of view from this admission; keep nutritional status optimized and avoid infections; treat with peg/trach; no antiplatelets for next 4-6 weeks (maintain MAP ~100) * On baby aspirin 81mg PO daily; discussed with neurology on 11/22/16 * Patient started on therapeutic Lovenox for DVT+, stopped and transitioned to warfarin, will follow-up INR * Pt is ok to start warfarin per neuro * f/u repeat INR * warfarin 5 mg po tonight as well as therapeutic lovenox dose weight based (2) Atrial Flutter * Cardiology consulted (Dr. Brock) on board; case discussed * elevated D-dimer-->Ct angio negative for PE * 12/12/16 tachycardia-->Adenosine given --> Atrial flutter--> did not improve with digoxin, cardizem, and amiodarone, requiring cardioversion, which converted * Thyroid studies negative * Amiodarone 200mg PO daily * has been in NSR * cont tele (3) Hypertension * monitor vital signs * controlled * elevated yesterday afternoon-->restarted Norvasc 5mg PO daily, we will increase to 10 daily (4) Deep vein thrombosis * per 12/12/16 Doppler: right peroneal vein DVT+ * Patient is currently on warfarin >> 5 mg po tonight as well as 1 dose of lovenox, wt based, today * pt is ok to start warfarin per neuro Dr. Simpson * warfarin 5 mg PO tonight plus stat dose of lovenox to bridge due to subtherapeutic inr (5) Dyslipidemia -continue crestor 5 daily (6) Acute respiratory failure (resolved) * s/p tracheostomy 10/28/16 * Patient completed trach collar. * Weaning completed; off ventilator * Saturating well. * Monitor dressing change of trach site * Pulmonary (Dr. Bailey) consulted to assist with weaning protocol * Completed decannulation on 10/30/16; saturating well * Consulted speech-->patient not appropriate for speak-easy valve status post decannulation; encourage speaking * Discussed with ENT-->outpatient due to mild vocal cord dysfunction * Discussed with swallow-->patient has a strong cough, can be started on pleasure feedings and/or pureed diet to try to transition off peg * pt now on regular diet, tolerating well * we will f.u with gi about removal of peg (6) CVA * Hemorrhagic stroke with associated hypotension and basal ganglia involvement on admission * hemoglobin a1c:5.7 * Cholesterol: 202, LDL:130 HDL:52 * Aspirin 81mg PO daily * Blood pressure control monitoring * continue Crestor 5mg PO qHS * s/p peg placement (7) Sepsis (resolved) Per 11/05; Fever 103F and associated leukocytosis: 21.8; infection: pneumonia ( which was treated with Meropenem during the course of hospitalization) Infectious disease on board (Dr. Chavez) 10/21 Sputum-Klebsiella (sensitive to Maxipime) 10/25 Serratia and Enterobacter (sensitive to Maxipime) 10/31 Sputum: normal 11/06: Enterobacter which is sensitive Meropenem (switch from Maxipime) 11/06 Urine culture: yeast 11/09 Urine culture: yeast 11/09 Blood culture: no growth for 5 days X2 11/21 Urine culture: yeast 11/26: Urine culture: Pseudomonas 12/08: Urine culture: VRE UTI (patient not septic at time of current UTI) -repeat urine culture shows contamination, urine culture 12/21 negative -continue tylenol PRN for fevers (8) Urinary Tract Infection (current) * 12/08/16 VRE UTI * Multiple UTI infections * Yeast urine treated with Diflucan during hospitalization * Pseudomonas treated with Cipro during hospitalization * VRE UTI treated with Tigecycline and contact isolation * [place] condom catheter changed recently * Infectious disease (Dr. Chavez) on board * Tigecycline 50mg IV Q 12hours (active since 12/11/16, no longer active), dc recently * Florastor 250mg PO bid * Monitor LFTS/renal function * dumas has been discontinued * repeat urine negative, tigecycline has been discontinued * contact dc * we have discontinued florastor (7) Hypernatremia -resolved (8) Prophylactic care * s/p peg placement * Weaned off vent; saturating well s/p decannulation * Continue with aggressive PT/OT-->latest PT noted recommending for subacute/ LTAC * PT/OT * INR is subtherapeutic- lovenox one dose today * coumadin tonight * pepcid 20 PO daily Disposition * repeat urine negative. * Will need anticoagulation for DVT+ to continue * Pending insurance for fdc care facility for rehabilitation, will need constant monitoring. Will need to clarify with family regarding the type of care patient will need with both patient's son and daughters. Pt awaiting improvement in physical abilities to climb stairs * Discussed with Dr. Vidal. <Apple Viadl V - Last Filed: 01/04/17 17:27> Objective - Vital Signs/Intake and Output Vital Signs (last 24 hours): Temp Pulse Resp BP Pulse Ox 98.5 F 84 20 119/77 100 01/04/17 16:00 01/04/17 16:00 01/04/17 16:00 01/04/17 16:00 01/04/17 16:00 Intake and Output: 01/04/17 01/04/17 06:59 18:59 Output Total 150 Balance -150 - Medications Medications: Current Medications Amiodarone HCl (Cordarone) 200 mg PO DAILY [facility] Last Admin: 01/04/17 09:51 Dose: 200 mg Amlodipine Besylate (Norvasc) 10 mg PO DAILY [facility] Last Admin: 01/04/17 09:50 Dose: 10 mg Aspirin (Aspirin Chewable) 81 mg PO DAILY [facility] Last Admin: 01/04/17 09:50 Dose: 81 mg Enoxaparin Sodium (Lovenox) 60 mg SC Q12H [facility] Rosuvastatin Calcium (Crestor) 5 mg PO HS [facility] Last Admin: 01/03/17 22:32 Dose: 5 mg Warfarin Sodium (Coumadin) 5 mg PO 1800 [facility] Stop: 01/04/17 18:01 - Labs Labs: 01/02/17 06:56 01/04/17 06:03 PT 20.3 SECONDS (9.7-12.2) H 01/04/17 06:03 INR 1.8 01/04/17 06:03 APTT 43 SECONDS (21-34) H 01/04/17 06:03 Attending/Attestation - Attestation I have personally seen and examined this patient.: Yes I have fully participated in the care of the patient.: Yes I have reviewed all pertinent clinical information, including history, physical exam and plan: Yes Notes (Text): Patient seen, examined and case discussed with day-time resident. Patient see at bedside. Patient denies acute complaints. Patient's INR is sub-therapeutic for DVT+. Patient restarted on therapeutic Lovenox and bridge to Coumadin. Patient to be given Coumadin 5mg PO tonight. Discussed with patient at bedside. Patient's home requires him to use stairs. Patient will need to continue working with physical therapy, until physical therapy clears for discharge. Assessment/Plan (1) Intracranial hemorrhage Assessment & Plan: 10/18 CT Head: Left basal ganglia acute hemorrhage, possibly hypertensive with associated intraventricular hemorrhage and mass effect upon the left lateral aspect of the 3rd ventricle with the tip shift of the 3rd ventricle towards the right side. No generalized midline shift. Air-fluid level in sphenoid sinus common nonspecific. Please correlate for concern regarding acute sinusitis. Mild involutional changes. 10/19 CT Head: little interval change in the known 2.0 x 2.7 acute hematoma in left thalamus with intra ventricular extension of hemorrhage. Interval mild worsening of obstructive hydrocephalus. 10/24 CT Head: little interval change in the size of left thalamic hemorrhage 2.4x2.9 cm with intraventricular extension of hemorrhage and mild obstructive hydrocephalus. 2 mm midline shift from left to right with no evidence of herniation. Near complete resolution of hemorrhage within 4th ventricle. 11/03/16 CT Head; Interval decrease in size and density left basal ganglia hematoma; well-circumscribed peripheral rim of low attentuation edema about hematoma; combination of brain edema and brain necrosis; intraventricular hemorrhage has diminished. Ventricles hae also decreased in size temporal horns and atria remain prominent. Persistent compression of the 3rd and left lateral ventricle 12/16/16 CT Head: no acute findings noted * Neurosurgery per initial consult-->patient's prognosis dismal at beginning of admission * Neurology (Dr. Simpson) on board-->per 10/26 note: patient has attained maximum response from neuro point of view from this admission; keep nutritional status and avoid infectious; treat with peg/trach; no antiplatelets for next 4-6 weeks (; maintain MAP ~100) * On baby aspirin 81mg PO daily; discussed with neurology with 11/22/16 * Bridge therapeutic Lovenox to Coumadin for DVT, subtherapeutic Status: Chronic (2) Atrial Flutter Assessment & Plan: * Cardiology consulted (Dr. Brock) on board; case discussed * elevated D-dimer-->Ct angio negative for PE * 12/12/16 tachycardia-->Adenosine given --> Atrial flutter--> did not improve with digoxin, cardizem, and amiodarone, requiring cardioversion, which converted * Cardiology consulted (Dr. Brock) on board; case discussed * Thyroid studies negative * Amiodarone 200mg PO daily (3) Hypertension Assessment & Plan: * monitor vital signs * controlled * Norvasc 10mg PO daily (4) Deep vein thrombosis * per 12/12/16 Doppler: right peroneal vein DVT+ * Therapuetic Lovenox restarted today * Started on Coumadin 5mg PO tonight (5) Acute respiratory failure (resolved) Assessment & Plan: * s/p tracheostomy 10/28/16 * Patient completed trach collar. * Weaning completed; off ventilator * Saturating well. * Monitor dressing change of trach site * Pulmonary (Dr. Bailey) consulted to assist with weaning protocol * Mucomyst PRN to help thin out secretions * Duonebs PRN shortness of breathe * monitor and may need suctioning PRN * Completed decannulation on 10/30/16; saturating well * Consulted speech-->patient not appropriate for speak-easy valve status post decannulation; encourage speaking * Discussed with ENT-->outpatient due to mild vocal cord dysfunction * Discussed with swallow-->patient has a strong cough, can be started on pleasure feedings and/or pureed diet to try to transition off peg Status: resolved (6) CVA (cerebral vascular accident) Assessment & Plan: * Hemorrhagic stroke with associated hypotension and basal ganglia involvement on admission * [id number]:5.7 * Cholestrol: 202, TG: LDL:130 HDL:52 * Aspirin 81mg PO daily * Blood pressure control monitoring * Start on Crestor 5mg POqHS * Patient is tolerating PO feeds and medications (7) Sepsis (resolved) Assessment & Plan: * Per 11/05; Fever 103F and associated leukocytosis: 21.8; infection: pneumonia ( which was treated with Meropenem during the course of hospitalization) * Infectious disease on board (Dr. Chavez) * 10/21 Sputum-Klebsiella (sensitive to Maxipime) * 10/25 Serratia and Enterobacter (sensitive to Maxipime) * 10/31 Sputum: normal= * 11/06: Enterobacter which is sensitive Meropenem (switch from Maxipime) * 11/06 Urine culture: yeast * 11/09 Urine culture: yeast * 11/09 Blood culture: no growth for 5 days X2 * 11/21 Urine culture: yeast * 11/26: Urine culture: Pseudomonas * 12/08: Urine culture: VRE UTI (patient not septic at time of current UTI) * 12/21: Urine culture: no growth * Patient is off IV abx, off contact isolation, no condom catheter (8) Urinary Tract Infection (resolved) * 12/08/16 VRE UTI * Multiple UTI infections * Yeast urine treated with Diflucan during hospitalization * Pseudomonas treated with Cipro during hospitalization * VRE UTI currently treated with Tigecycline and contact isolation * Discontinue [place] catheter * Infectious disease (Dr. Chavez) on board * Florastor 250mg PO bid * 12/08: Urine culture: VRE UTI (patient not septic at time of current UTI) * 12/21: Urine culture: no growth * Patient is off IV abx, off contact isolation, no condom catheter (9) Hypernatremia (resolved) * normalized (10) Prophylactic care * s/p peg placement-->will require follow-up with GI outpatient to remove peg tube * Weaned off vent; saturating well s/p decanulation; and speaking * Continue with aggressive PT/OT until cleared for stairs * Patient is tolerating PO feeds and medication per nursing * Patient is subtherapuetic INR; will restart bridge to Coumadin for DVT+, Ordered for Coumadin tonight Disposition * Patient is tolerating PO feeding and PO medications, discussed with nursing staff. Will need outpatient followup for peg tube removal. * Patient is doing remarkable. Patient will need continue aggressive PT/OT, started on rolling walker per PT. Patient's home has stair cases. Will need to coordinate with PT to determine when he is cleared for by PT for stairs * Monitor INR for Coumadin dosing; re-started therapuetic Lovenox. * Discussed with daughter at bedside today
[2017-01-04] MEDS: Enoxaparin 60 mg Syringe SC SCH (17:54)
[2017-01-05] MEDS: Enoxaparin 60 mg Syringe SC SCH ×2 (05:19→14:05)
[2017-01-05 06:30] LABS: BASO % 0.5 % (0.0-2.0); EOS # 0.2 K/uL (0.0-0.7); EOS % 3.3 % (0.0-4.0); HEMATOCRIT 32.5 % (35.0-51.0); INR 1.9; LYMPH # 1.8 K/uL (1.0-4.3); LYMPH % 27.5 % (20.0-40.0); MEAN CELL VOLUME 82.5 fL (80.0-94.0); MEAN CORPUSCULAR HEMOGLOBIN 27.2 pg (27.0-31.0); MEAN CORPUSCULAR HGB CONC 32.9 g/dL (33.0-37.0); MEAN PLATELET VOLUME 8.3 fL (7.2-11.7); MONO # 0.5 K/uL (0.0-0.8); MONO % 7.5 % (0.0-10.0); RED CELL DISTRIBUTION WIDTH 17.8 % (11.5-14.5); WHITE BLOOD COUNT 6.7 K/uL (4.8-10.8)
--- NOTE | 2017-01-05 10:57 | CP.PCM.PN ---
<Jh Minor - Last Filed: 01/05/17 10:57> Subjective - Date & Time of Evaluation Date of Evaluation: 01/05/17 Time of Evaluation: 10:55 - Subjective Subjective: Medicine progress note. Attending: Dr. Vidal Pt seen and examined at bedside. No acute distress. No events overnight. INR subtherapeutic, will continue to bridge and warfarin 5 mg tonight. No fevers, chills, vomiting, diarrhea. Objective - Vital Signs/Intake and Output Vital Signs (last 24 hours): Temp Pulse Resp BP Pulse Ox 98.5 F 85 20 138/85 100 01/05/17 07:00 01/05/17 07:00 01/05/17 07:00 01/05/17 07:00 01/05/17 07:00 Intake and Output: 01/05/17 01/05/17 06:59 18:59 Output Total 600 Balance -600 - Medications Medications: Current Medications Amiodarone HCl (Cordarone) 200 mg PO DAILY [facility] Last Admin: 01/04/17 09:51 Dose: 200 mg Amlodipine Besylate (Norvasc) 10 mg PO DAILY [facility] Last Admin: 01/04/17 09:50 Dose: 10 mg Aspirin (Aspirin Chewable) 81 mg PO DAILY [facility] Last Admin: 01/04/17 09:50 Dose: 81 mg Enoxaparin Sodium (Lovenox) 60 mg SC Q12H [facility] Last Admin: 01/05/17 05:19 Dose: 60 mg Rosuvastatin Calcium (Crestor) 5 mg PO HS [facility] Last Admin: 01/04/17 22:54 Dose: 5 mg Warfarin Sodium (Coumadin) 5 mg PO 1800 [facility] Stop: 01/05/17 18:01 - Labs Labs: 01/05/17 06:14 01/04/17 06:03 PT 22.1 SECONDS (9.7-12.2) H 01/05/17 06:14 INR 1.9 01/05/17 06:14 APTT 55 SECONDS (21-34) H D 01/05/17 06:14 - Constitutional Appears: Non-toxic, No Acute Distress - Head Exam Head Exam: ATRAUMATIC, NORMAL INSPECTION, NORMOCEPHALIC - Eye Exam Eye Exam: EOMI - ENT Exam ENT Exam: Mucous Membranes Moist - Neck Exam Neck Exam: Full ROM, Normal Inspection - Respiratory Exam Respiratory Exam: NORMAL BREATHING PATTERN. absent: Respiratory Distress - Cardiovascular Exam Cardiovascular Exam: +S1, +S2 - GI/Abdominal Exam GI & Abdominal Exam: Soft, Normal Bowel Sounds. absent: Tenderness - Extremities Exam Extremities Exam: Full ROM, Normal Inspection - Neurological Exam Neurological Exam: Alert, Awake, Oriented x3 - Psychiatric Exam Psychiatric exam: Normal Affect, Normal Mood - Skin Skin Exam: Dry, Intact, Normal Color, Warm Assessment and Plan - Assessment and Plan (Free Text) Assessment: This is a 56 year old male with unknown past medical history presenting for medical evaluation of intracranial bleed. (1) Intracranial hemorrhage 10/18 CT Head: Left basal ganglia acute hemorrhage, possibly hypertensive with associated intraventricular hemorrhage and mass effect upon the left lateral aspect of the 3rd ventricle with the tip shift of the 3rd ventricle towards the right side. No generalized midline shift. Air-fluid level in sphenoid sinus common nonspecific. Please correlate for concern regarding acute sinusitis. Mild involutional changes. 10/19 CT Head: little interval change in the known 2.0 x 2.7 acute hematoma in left thalamus with intra ventricular extension of hemorrhage. Interval mild worsening of obstructive hydrocephalus. 10/24 CT Head: little interval change in the size of left thalamic hemorrhage 2.4x2.9 cm with intraventricular extension of hemorrhage and mild obstructive hydrocephalus. 2 mm midline shift from left to right with no evidence of herniation. Near complete resolution of hemorrhage within 4th ventricle. 11/03/16 CT Head; Interval decrease in size and density left basal ganglia hematoma; well-circumscribed peripheral rim of low attentuation edema about hematoma; combination of brain edema and brain necrosis; intraventricular hemorrhage has diminished. Ventricles hae also decreased in size temporal horns and atria remain prominent. Persistent compression of the 3rd and left lateral ventricle 12/16/16 CT Head: no acute findings noted * Neurosurgery per initial consult-->patient's prognosis dismal at beginning of admission * Neurology (Dr. Simpson) on board-->per 10/26 note: patient has attained maximum response from neuro point of view from this admission; keep nutritional status optimized and avoid infections; treat with peg/trach; no antiplatelets for next 4-6 weeks (maintain MAP ~100) * On baby aspirin 81mg PO daily; discussed with neurology on 11/22/16 * Patient started on therapeutic Lovenox for DVT+, stopped and transitioned to warfarin, will follow-up INR * Pt is ok to start warfarin per neuro * f/u repeat INR * warfarin 5 mg po tonight as well as bridge with lovenox dose weight based as INR is subtherapeutic this morning (2) Atrial Flutter * Cardiology consulted (Dr. Brock) on board; case discussed * elevated D-dimer-->Ct angio negative for PE * 12/12/16 tachycardia-->Adenosine given --> Atrial flutter--> did not improve with digoxin, cardizem, and amiodarone, requiring cardioversion, which converted * Thyroid studies negative * Amiodarone 200mg PO daily * has been in NSR * continue telemetry (3) Hypertension * monitor vital signs * controlled * continue norvasc 10 mg po daily (4) Deep vein thrombosis * per 12/12/16 Doppler: right peroneal vein DVT+ * Patient is currently on warfarin >> 5 mg po tonight as well as lovenox, wt based, q 12 hrs today * pt is ok to start warfarin per neuro Dr. Simpson * warfarin 5 mg PO tonight plus dose of lovenox to bridge due to subtherapeutic inr (5) Dyslipidemia -continue crestor 5mg PO HS (6) Acute respiratory failure (resolved) * s/p tracheostomy 10/28/16 * Patient completed trach collar. * Weaning completed; off ventilator * Saturating well. * Monitor dressing change of trach site * Pulmonary (Dr. Bailey) consulted to assist with weaning protocol * Completed decannulation on 10/30/16; saturating well * Consulted speech-->patient not appropriate for speak-easy valve status post decannulation; encourage speaking * Discussed with ENT-->outpatient due to mild vocal cord dysfunction * Discussed with swallow-->patient has a strong cough, can be started on pleasure feedings and/or pureed diet to try to transition off peg * pt now on regular diet, tolerating well * we will f.u with gi about removal of peg (6) CVA * Hemorrhagic stroke with associated hypotension and basal ganglia involvement on admission * hemoglobin a1c:5.7 * Cholesterol: 202, LDL:130 HDL:52 * Aspirin 81mg PO daily * Blood pressure control monitoring * continue Crestor 5mg PO qHS * s/p peg placement (7) Sepsis (resolved) Per 11/05; Fever 103F and associated leukocytosis: 21.8; infection: pneumonia ( which was treated with Meropenem during the course of hospitalization) Infectious disease on board (Dr. Chavez) 10/21 Sputum-Klebsiella (sensitive to Maxipime) 10/25 Serratia and Enterobacter (sensitive to Maxipime) 10/31 Sputum: normal 11/06: Enterobacter which is sensitive Meropenem (switch from Maxipime) 11/06 Urine culture: yeast 11/09 Urine culture: yeast 11/09 Blood culture: no growth for 5 days X2 11/21 Urine culture: yeast 11/26: Urine culture: Pseudomonas 12/08: Urine culture: VRE UTI (patient not septic at time of current UTI) -repeat urine culture shows contamination, urine culture 12/21 negative -continue tylenol PRN for fevers (8) Urinary Tract Infection (current) * 12/08/16 VRE UTI * Multiple UTI infections * Yeast urine treated with Diflucan during hospitalization * Pseudomonas treated with Cipro during hospitalization * VRE UTI treated with Tigecycline and contact isolation * [place] condom catheter changed recently * Infectious disease (Dr. Chavez) on board * Tigecycline 50mg IV Q 12hours (active since 12/11/16, no longer active), dc recently * Florastor 250mg PO bid * Monitor LFTS/renal function * dumas has been discontinued * repeat urine negative, tigecycline has been discontinued * contact dc * we have discontinued florastor (7) Hypernatremia -resolved (8) Prophylactic care * s/p peg placement * Weaned off vent; saturating well s/p decannulation * Continue with aggressive PT/OT-->latest PT noted recommending for subacute/ LTAC * PT/OT * INR is subtherapeutic- lovenox q 12 to continue to bridge * coumadin tonight * pepcid 20 mg PO daily Disposition * repeat urine negative. 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 Will need to clarify with family regarding the type of care patient will need with both patient's son and daughters. Pt awaiting improvement in physical abilities to climb stairs * Discussed with Dr. Vidal. <Apple Vidal V - Last Filed: 01/05/17 21:20> Objective - Vital Signs/Intake and Output Vital Signs (last 24 hours): Temp Pulse Resp BP Pulse Ox 98.2 F 88 18 121/78 100 01/05/17 15:40 01/05/17 15:40 01/05/17 15:40 01/05/17 15:40 01/05/17 15:40 Intake and Output: 01/05/17 01/06/17 18:59 06:59 Output Total 250 Balance -250 - Medications Medications: Current Medications Amiodarone HCl (Cordarone) 200 mg PO DAILY [facility] Last Admin: 01/05/17 10:13 Dose: 200 mg Amlodipine Besylate (Norvasc) 10 mg PO DAILY [facility] Last Admin: 01/05/17 10:14 Dose: 10 mg Aspirin (Aspirin Chewable) 81 mg PO DAILY [facility] Last Admin: 01/05/17 10:12 Dose: 81 mg Enoxaparin Sodium (Lovenox) 60 mg SC Q12H [facility] Last Admin: 01/05/17 14:05 Dose: 60 mg Famotidine (Pepcid) 20 mg PO DAILY [facility] Last Admin: 01/05/17 12:14 Dose: 20 mg Rosuvastatin Calcium (Crestor) 5 mg PO HS [facility] Last Admin: 01/04/17 22:54 Dose: 5 mg - Labs Labs: 01/05/17 06:14 01/04/17 06:03 PT 22.1 SECONDS (9.7-12.2) H 01/05/17 06:14 INR 1.9 01/05/17 06:14 APTT 55 SECONDS (21-34) H D 01/05/17 06:14 Attending/Attestation - Attestation I have personally seen and examined this patient.: Yes I have fully participated in the care of the patient.: Yes I have reviewed all pertinent clinical information, including history, physical exam and plan: Yes Notes (Text): Patient seen, examined and case discussed with day-time resident. Patient denies acute complaints at bedside. Discussed with case management, patient is working with physical therapy regarding stair-training. Patient is currently on therapeutic Lovenox to Coumadin for DVT+. Assessment/Plan (1) Intracranial hemorrhage Assessment & Plan: 10/18 CT Head: Left basal ganglia acute hemorrhage, possibly hypertensive with associated intraventricular hemorrhage and mass effect upon the left lateral aspect of the 3rd ventricle with the tip shift of the 3rd ventricle towards the right side. No generalized midline shift. Air-fluid level in sphenoid sinus common nonspecific. Please correlate for concern regarding acute sinusitis. Mild involutional changes. 10/19 CT Head: little interval change in the known 2.0 x 2.7 acute hematoma in left thalamus with intra ventricular extension of hemorrhage. Interval mild worsening of obstructive hydrocephalus. 10/24 CT Head: little interval change in the size of left thalamic hemorrhage 2.4x2.9 cm with intraventricular extension of hemorrhage and mild obstructive hydrocephalus. 2 mm midline shift from left to right with no evidence of herniation. Near complete resolution of hemorrhage within 4th ventricle. 11/03/16 CT Head; Interval decrease in size and density left basal ganglia hematoma; well-circumscribed peripheral rim of low attentuation edema about hematoma; combination of brain edema and brain necrosis; intraventricular hemorrhage has diminished. Ventricles hae also decreased in size temporal horns and atria remain prominent. Persistent compression of the 3rd and left lateral ventricle 12/16/16 CT Head: no acute findings noted * Neurosurgery per initial consult-->patient's prognosis dismal at beginning of admission * Neurology (Dr. Simpson) on board-->per 10/26 note: patient has attained maximum response from neuro point of view from this admission; keep nutritional status and avoid infectious; treat with peg/trach; no antiplatelets for next 4-6 weeks (; maintain MAP ~100) * On baby aspirin 81mg PO daily; discussed with neurology with 11/22/16 * Bridge therapeutic Lovenox to Coumadin for DVT, subtherapeutic Status: Chronic (2) Atrial Flutter Assessment & Plan: * Cardiology consulted (Dr. Brock) on board; case discussed * elevated D-dimer-->Ct angio negative for PE * 12/12/16 tachycardia-->Adenosine given --> Atrial flutter--> did not improve with digoxin, cardizem, and amiodarone, requiring cardioversion, which converted * Cardiology consulted (Dr. Brock) on board; case discussed * Thyroid studies negative * Amiodarone 200mg PO daily (3) Hypertension Assessment & Plan: * monitor vital signs * controlled * Norvasc 10mg PO daily (4) Deep vein thrombosis * per 12/12/16 Doppler: right peroneal vein DVT+ * Therapuetic Lovenox restarted today * Started on Coumadin 5mg PO tonight (5) Acute respiratory failure (resolved) Assessment & Plan: * s/p tracheostomy 10/28/16 * Patient completed trach collar. * Weaning completed; off ventilator * Saturating well. * Monitor dressing change of trach site * Pulmonary (Dr. Bailey) consulted to assist with weaning protocol * Mucomyst PRN to help thin out secretions * Duonebs PRN shortness of breathe * monitor and may need suctioning PRN * Completed decannulation on 10/30/16; saturating well * Consulted speech-->patient not appropriate for speak-easy valve status post decannulation; encourage speaking * Discussed with ENT-->outpatient due to mild vocal cord dysfunction * Discussed with swallow-->patient has a strong cough, can be started on pleasure feedings and/or pureed diet to try to transition off peg Status: resolved (6) CVA (cerebral vascular accident) Assessment & Plan: * Hemorrhagic stroke with associated hypotension and basal ganglia involvement on admission * [id number]:5.7 * Cholestrol: 202, TG: LDL:130 HDL:52 * Aspirin 81mg PO daily * Blood pressure control monitoring * Start on Crestor 5mg POqHS * Patient is tolerating PO feeds and medications (7) Sepsis (resolved) Assessment & Plan: * Per 11/05; Fever 103F and associated leukocytosis: 21.8; infection: pneumonia ( which was treated with Meropenem during the course of hospitalization) * Infectious disease on board (Dr. Chavez) * 10/21 Sputum-Klebsiella (sensitive to Maxipime) * 10/25 Serratia and Enterobacter (sensitive to Maxipime) * 10/31 Sputum: normal= * 11/06: Enterobacter which is sensitive Meropenem (switch from Maxipime) * 11/06 Urine culture: yeast * 11/09 Urine culture: yeast * 11/09 Blood culture: no growth for 5 days X2 * 11/21 Urine culture: yeast * 11/26: Urine culture: Pseudomonas * 12/08: Urine culture: VRE UTI (patient not septic at time of current UTI) * 12/21: Urine culture: no growth * Patient is off IV abx, off contact isolation, no condom catheter (8) Urinary Tract Infection (resolved) * 12/08/16 VRE UTI * Multiple UTI infections * Yeast urine treated with Diflucan during hospitalization * Pseudomonas treated with Cipro during hospitalization * VRE UTI currently treated with Tigecycline and contact isolation * Discontinue [place] catheter * Infectious disease (Dr. Chavez) on board * Florastor 250mg PO bid * 12/08: Urine culture: VRE UTI (patient not septic at time of current UTI) * 12/21: Urine culture: no growth * Patient is off IV abx, off contact isolation, no condom catheter (9) Hypernatremia (resolved) * normalized (10) Prophylactic care * s/p peg placement-->will require follow-up with GI outpatient to remove peg tube * Weaned off vent; saturating well s/p decanulation; and speaking * Continue with aggressive PT/OT until cleared for stairs * Patient is tolerating PO feeds and medication per nursing * Patient is subtherapuetic INR; will restart bridge to Coumadin for DVT+, Ordered for Coumadin tonight Disposition * Patient is tolerating PO feeding and PO medications, discussed with nursing staff. Will need outpatient followup for peg tube removal. * Patient is doing remarkable. Patient will need continue aggressive PT/OT, started on rolling walker per PT. Patient's home has stair cases. * Monitor INR for Coumadin dosing; re-started therapuetic Lovenox.
[2017-01-06] MEDS: Enoxaparin 60 mg Syringe SC SCH (05:08)
[2017-01-06 07:34] LABS: BASO % 0.6 % (0.0-2.0); EOS # 0.3 K/uL (0.0-0.7); HEMATOCRIT 31.1 % (35.0-51.0); LYMPH % 31.7 % (20.0-40.0); MEAN CELL VOLUME 83.2 fL (80.0-94.0); MEAN CORPUSCULAR HEMOGLOBIN 27.3 pg (27.0-31.0); MEAN CORPUSCULAR HGB CONC 32.8 g/dL (33.0-37.0); MONO # 0.4 K/uL (0.0-0.8); MONO % 6.2 % (0.0-10.0); RED CELL DISTRIBUTION WIDTH 17.6 % (11.5-14.5); WHITE BLOOD COUNT 6.4 K/uL (4.8-10.8)
[2017-01-06 07:35] LABS: INR 2.2
[2017-01-06 07:57] LABS: CHLORIDE 103 mmol/L (98-107); POTASSIUM 3.8 mmol/L (3.6-5.2); SODIUM 140 mmol/L (132-148)
[2017-01-06 07:59] LABS: ALB/GLOB RATIO 0.9 (1.0-2.1); AST/SGOT 37 U/L (17-59); BILIRUBIN,TOTAL 0.6 mg/dL (0.2-1.3); BLOOD UREA NITROGEN 16 mg/dL (9-20); CARBON DIOXIDE 29 mmol/L (22-30); GFR AFRICAN-AMERICAN > 60; TOTAL PROTEIN 6.6 g/dL (6.3-8.3)
[2017-01-06 08:00] LABS: ALKALINE PHOSPHATASE 76 U/L (38-126); ALT/SGPT 74 U/L (21-72); CALCIUM 8.8 mg/dl (8.6-10.4); GLUCOSE,RANDOM 81 mg/dL (75-110)
--- NOTE | 2017-01-06 14:00 | CP.PCM.PN ---
<Jennifer Freed - Last Filed: 01/06/17 13:56> Subjective - Date & Time of Evaluation Date of Evaluation: 01/06/17 Time of Evaluation: 07:40 - Subjective Subjective: Pt seen and examined at bedside. No acute distress. No events overnight. He has no new complaints today. INR subtherapeutic, will continue to bridge and warfarin 5 mg tonight. No fevers, chills, chest pain, SOB, abd pain, vomiting, diarrhea, numbness. Objective - Vital Signs/Intake and Output Vital Signs (last 24 hours): Temp Pulse Resp BP Pulse Ox 98.2 F 92 H 18 116/73 97 01/06/17 07:05 01/06/17 08:00 01/06/17 07:05 01/06/17 07:05 01/06/17 07:05 Intake and Output: 01/06/17 01/06/17 06:59 18:59 Intake Total 120 Output Total 750 Balance -630 - Medications Medications: Current Medications Amiodarone HCl (Cordarone) 200 mg PO DAILY [facility] Last Admin: 01/06/17 09:46 Dose: 200 mg Amlodipine Besylate (Norvasc) 10 mg PO DAILY [facility] Last Admin: 01/06/17 09:46 Dose: 10 mg Aspirin (Aspirin Chewable) 81 mg PO DAILY [facility] Last Admin: 01/06/17 09:46 Dose: 81 mg Famotidine (Pepcid) 20 mg PO DAILY [facility] Last Admin: 01/06/17 09:46 Dose: 20 mg Rosuvastatin Calcium (Crestor) 5 mg PO HS [facility] Last Admin: 01/05/17 21:39 Dose: 5 mg Warfarin Sodium (Coumadin) 5 mg PO 1800 [facility] Stop: 01/06/17 18:01 - Labs Labs: 01/06/17 07:26 01/06/17 07:26 PT 25.5 SECONDS (9.7-12.2) H 01/06/17 07:26 INR 2.2 01/06/17 07:26 APTT 55 SECONDS (21-34) H D 01/05/17 06:14 - Constitutional Appears: Non-toxic, No Acute Distress - Head Exam Head Exam: ATRAUMATIC, NORMAL INSPECTION - Eye Exam Eye Exam: EOMI - ENT Exam ENT Exam: Mucous Membranes Moist - Neck Exam Neck Exam: Normal Inspection - Respiratory Exam Respiratory Exam: Clear to Ausculation Bilateral, NORMAL BREATHING PATTERN. absent: Respiratory Distress - Cardiovascular Exam Cardiovascular Exam: REGULAR RHYTHM, +S1, +S2 - GI/Abdominal Exam GI & Abdominal Exam: Soft, Normal Bowel Sounds. absent: Distended, Firm, Guarding, Tenderness - Extremities Exam Extremities Exam: Normal Inspection. absent: Calf Tenderness, Pedal Edema - Back Exam Back Exam: NORMAL INSPECTION. absent: CVA tenderness (L), CVA tenderness (R), paraspinal tenderness - Neurological Exam Neurological Exam: Alert, Awake, Oriented x3 - Psychiatric Exam Psychiatric exam: Normal Affect, Normal Mood - Skin Skin Exam: Dry, Intact, Normal Color, Warm Assessment and Plan - Assessment and Plan (Free Text) Assessment: (1) Intracranial hemorrhage Assessment & Plan: 10/18 CT Head: Left basal ganglia acute hemorrhage, possibly hypertensive with associated intraventricular hemorrhage and mass effect upon the left lateral aspect of the 3rd ventricle with the tip shift of the 3rd ventricle towards the right side. No generalized midline shift. Air-fluid level in sphenoid sinus common nonspecific. Please correlate for concern regarding acute sinusitis. Mild involutional changes. 10/19 CT Head: little interval change in the known 2.0 x 2.7 acute hematoma in left thalamus with intra ventricular extension of hemorrhage. Interval mild worsening of obstructive hydrocephalus. 10/24 CT Head: little interval change in the size of left thalamic hemorrhage 2.4x2.9 cm with intraventricular extension of hemorrhage and mild obstructive hydrocephalus. 2 mm midline shift from left to right with no evidence of herniation. Near complete resolution of hemorrhage within 4th ventricle. 11/03/16 CT Head; Interval decrease in size and density left basal ganglia hematoma; well-circumscribed peripheral rim of low attentuation edema about hematoma; combination of brain edema and brain necrosis; intraventricular hemorrhage has diminished. Ventricles hae also decreased in size temporal horns and atria remain prominent. Persistent compression of the 3rd and left lateral ventricle 12/16/16 CT Head: no acute findings noted * Neurosurgery per initial consult-->patient's prognosis dismal at beginning of admission * Neurology (Dr. Simpson) on board-->per 10/26 note: patient has attained maximum response from neuro point of view from this admission; keep nutritional status and avoid infectious; treat with peg/trach; no antiplatelets for next 4-6 weeks (; maintain MAP ~100) * On baby aspirin 81mg PO daily; discussed with neurology with 11/22/16 * Bridge therapeutic Lovenox to Coumadin for DVT, subtherapeutic Status: Chronic (2) Atrial Flutter Assessment & Plan: * Cardiology consulted (Dr. Brock) on board; case discussed * elevated D-dimer-->Ct angio negative for PE * 12/12/16 tachycardia-->Adenosine given --> Atrial flutter--> did not improve with digoxin, cardizem, and amiodarone, requiring cardioversion, which converted * Cardiology consulted (Dr. Brock) on board; case discussed * Thyroid studies negative * Amiodarone 200mg PO daily (3) Hypertension Assessment & Plan: * monitor vital signs * controlled * Norvasc 10mg PO daily (4) Deep vein thrombosis * per 12/12/16 Doppler: right peroneal vein DVT+ * Therapuetic Lovenox restarted today - discontinued * Coumadin 5mg PO tonight, f/u INR in the morning * 10/09: INR 2.2 (5) Acute respiratory failure (resolved) Assessment & Plan: * s/p tracheostomy 10/28/16 * Patient completed trach collar. * Weaning completed; off ventilator * Saturating well. * Monitor dressing change of trach site * Pulmonary (Dr. Bailey) consulted to assist with weaning protocol * Mucomyst PRN to help thin out secretions * Duonebs PRN shortness of breathe * monitor and may need suctioning PRN * Completed decannulation on 10/30/16; saturating well * Consulted speech-->patient not appropriate for speak-easy valve status post decannulation; encourage speaking * Discussed with ENT-->outpatient due to mild vocal cord dysfunction * Discussed with swallow-->patient has a strong cough, can be started on pleasure feedings and/or pureed diet to try to transition off peg Status: resolved (6) CVA (cerebral vascular accident) Assessment & Plan: * Hemorrhagic stroke with associated hypotension and basal ganglia involvement on admission * [id number]:5.7 * Cholestrol: 202, TG: LDL:130 HDL:52 * Aspirin 81mg PO daily * Blood pressure control monitoring * Start on Crestor 5mg POqHS * Patient is tolerating PO feeds and medications (7) Sepsis (resolved) Assessment & Plan: * Per 11/05; Fever 103F and associated leukocytosis: 21.8; infection: pneumonia ( which was treated with Meropenem during the course of hospitalization) * Infectious disease on board (Dr. Chavez) * 10/21 Sputum-Klebsiella (sensitive to Maxipime) * 10/25 Serratia and Enterobacter (sensitive to Maxipime) * 10/31 Sputum: normal= * 11/06: Enterobacter which is sensitive Meropenem (switch from Maxipime) * 11/06 Urine culture: yeast * 11/09 Urine culture: yeast * 11/09 Blood culture: no growth for 5 days X2 * 11/21 Urine culture: yeast * 11/26: Urine culture: Pseudomonas * 12/08: Urine culture: VRE UTI (patient not septic at time of current UTI) * 12/21: Urine culture: no growth * Patient is off IV abx, off contact isolation, no condom catheter (8) Urinary Tract Infection (resolved) * 12/08/16 VRE UTI * Multiple UTI infections * Yeast urine treated with Diflucan during hospitalization * Pseudomonas treated with Cipro during hospitalization * VRE UTI currently treated with Tigecycline and contact isolation * Discontinue [place] catheter * Infectious disease (Dr. Chavez) on board * Florastor 250mg PO bid * 12/08: Urine culture: VRE UTI (patient not septic at time of current UTI) * 12/21: Urine culture: no growth * Patient is off IV abx, off contact isolation, no condom catheter (9) Hypernatremia (resolved) * normalized (10) Prophylactic care * s/p peg placement-->will require follow-up with GI outpatient to remove peg tube * Weaned off vent; saturating well s/p decanulation; and speaking * Continue with aggressive PT/OT until cleared for stairs - per PT patient is now able to do stairs * Patient is tolerating PO feeds and medication per nursing * Patient is subtherapuetic INR; will restart bridge to Coumadin for DVT+, Ordered for Coumadin tonight 5mg Disposition * Patient is tolerating PO feeding and PO medications, discussed with nursing staff. Will need outpatient followup for peg tube removal. * Patient is doing remarkable. Patient will need continue aggressive PT/OT, started on rolling walker per PT. Patient's home has stair cases. * Monitor INR for Coumadin dosing; Lovenox discontinued <Apple Vidal V - Last Filed: 01/06/17 16:23> Objective - Vital Signs/Intake and Output Vital Signs (last 24 hours): Temp Pulse Resp BP Pulse Ox 98.6 F 86 20 104/69 100 01/06/17 15:30 01/06/17 15:30 01/06/17 15:30 01/06/17 15:30 01/06/17 15:30 Intake and Output: 01/06/17 01/06/17 06:59 18:59 Intake Total 120 Output Total 750 Balance -630 - Medications Medications: Current Medications Amiodarone HCl (Cordarone) 200 mg PO DAILY [facility] Last Admin: 01/06/17 09:46 Dose: 200 mg Amlodipine Besylate (Norvasc) 10 mg PO DAILY [facility] Last Admin: 01/06/17 09:46 Dose: 10 mg Aspirin (Aspirin Chewable) 81 mg PO DAILY [facility] Last Admin: 01/06/17 09:46 Dose: 81 mg Famotidine (Pepcid) 20 mg PO DAILY [facility] Last Admin: 01/06/17 09:46 Dose: 20 mg Rosuvastatin Calcium (Crestor) 5 mg PO HS [facility] Last Admin: 01/05/17 21:39 Dose: 5 mg Warfarin Sodium (Coumadin) 5 mg PO 1800 [facility] Stop: 01/06/17 18:01 - Labs Labs: 01/06/17 07:26 01/06/17 07:26 PT 25.5 SECONDS (9.7-12.2) H 01/06/17 07:26 INR 2.2 01/06/17 07:26 APTT 55 SECONDS (21-34) H D 01/05/17 06:14 Attending/Attestation - Attestation I have personally seen and examined this patient.: Yes I have fully participated in the care of the patient.: Yes I have reviewed all pertinent clinical information, including history, physical exam and plan: Yes Notes (Text): Patient seen, examined, and case discussed with day-time resident. Patient denies acute complaints. No family at bedside today. Patient is currently therapeutic today. Discontinued therapeutic Lovenox. Ordered for Coumadin 5mg PO X1. Will start to arrange for discharge planning. Patient will need to follow-up for INR checks for treatment for first time DVT for 3 months and will need to follow-up with GI outpatient for removal of peg tube. Assessment/Plan (1) Intracranial hemorrhage Assessment & Plan: 10/18 CT Head: Left basal ganglia acute hemorrhage, possibly hypertensive with associated intraventricular hemorrhage and mass effect upon the left lateral aspect of the 3rd ventricle with the tip shift of the 3rd ventricle towards the right side. No generalized midline shift. Air-fluid level in sphenoid sinus common nonspecific. Please correlate for concern regarding acute sinusitis. Mild involutional changes. 10/19 CT Head: little interval change in the known 2.0 x 2.7 acute hematoma in left thalamus with intra ventricular extension of hemorrhage. Interval mild worsening of obstructive hydrocephalus. 10/24 CT Head: little interval change in the size of left thalamic hemorrhage 2.4x2.9 cm with intraventricular extension of hemorrhage and mild obstructive hydrocephalus. 2 mm midline shift from left to right with no evidence of herniation. Near complete resolution of hemorrhage within 4th ventricle. 11/03/16 CT Head; Interval decrease in size and density left basal ganglia hematoma; well-circumscribed peripheral rim of low attentuation edema about hematoma; combination of brain edema and brain necrosis; intraventricular hemorrhage has diminished. Ventricles hae also decreased in size temporal horns and atria remain prominent. Persistent compression of the 3rd and left lateral ventricle 12/16/16 CT Head: no acute findings noted * Neurosurgery per initial consult-->patient's prognosis dismal at beginning of admission * Neurology (Dr. Simpson) on board-->per 10/26 note: patient has attained maximum response from neuro point of view from this admission; keep nutritional status and avoid infectious; treat with peg/trach; no antiplatelets for next 4-6 weeks (; maintain MAP ~100) * On baby aspirin 81mg PO daily; discussed with neurology with 11/22/16 * patient is therapeutic on Coumadin today. D/C Lovenox. Status: Chronic (2) Atrial Flutter Assessment & Plan: * Cardiology consulted (Dr. Brock) on board; case discussed * elevated D-dimer-->Ct angio negative for PE * 12/12/16 tachycardia-->Adenosine given --> Atrial flutter--> did not improve with digoxin, cardizem, and amiodarone, requiring cardioversion, which converted * Cardiology consulted (Dr. Brock) on board; case discussed * Thyroid studies negative * Amiodarone 200mg PO daily (3) Hypertension Assessment & Plan: * monitor vital signs * controlled * Norvasc 10mg PO daily (4) Deep vein thrombosis * per 12/12/16 Doppler: right peroneal vein DVT+ * Started on Coumadin 5mg PO tonight; discontinued Lovenox (5) Acute respiratory failure (resolved) Assessment & Plan: * s/p tracheostomy 10/28/16 * Patient completed trach collar. * Weaning completed; off ventilator * Saturating well. * Monitor dressing change of trach site * Pulmonary (Dr. Bailey) consulted to assist with weaning protocol * Mucomyst PRN to help thin out secretions * Duonebs PRN shortness of breathe * monitor and may need suctioning PRN * Completed decannulation on 10/30/16; saturating well * Consulted speech-->patient not appropriate for speak-easy valve status post decannulation; encourage speaking * Discussed with ENT-->outpatient due to mild vocal cord dysfunction * Discussed with swallow-->patient has a strong cough, can be started on pleasure feedings and/or pureed diet to try to transition off peg Status: resolved (6) CVA (cerebral vascular accident) Assessment & Plan: * Hemorrhagic stroke with associated hypotension and basal ganglia involvement on admission * [id number]:5.7 * Cholestrol: 202, TG: LDL:130 HDL:52 * Aspirin 81mg PO daily * Blood pressure control monitoring * Start on Crestor 5mg POqHS * Patient is tolerating PO feeds and medications (7) Sepsis (resolved) Assessment & Plan: * Per 11/05; Fever 103F and associated leukocytosis: 21.8; infection: pneumonia ( which was treated with Meropenem during the course of hospitalization) * Infectious disease on board (Dr. Chavez) * 10/21 Sputum-Klebsiella (sensitive to Maxipime) * 10/25 Serratia and Enterobacter (sensitive to Maxipime) * 10/31 Sputum: normal= * 11/06: Enterobacter which is sensitive Meropenem (switch from Maxipime) * 11/06 Urine culture: yeast * 11/09 Urine culture: yeast * 11/09 Blood culture: no growth for 5 days X2 * 11/21 Urine culture: yeast * 11/26: Urine culture: Pseudomonas * 12/08: Urine culture: VRE UTI (patient not septic at time of current UTI) * 12/21: Urine culture: no growth * Patient is off IV abx, off contact isolation, no condom catheter (8) Urinary Tract Infection (resolved) * 12/08/16 VRE UTI * Multiple UTI infections * Yeast urine treated with Diflucan during hospitalization * Pseudomonas treated with Cipro during hospitalization * VRE UTI currently treated with Tigecycline and contact isolation * Discontinue [place] catheter * Infectious disease (Dr. Chavez) on board * Florastor 250mg PO bid * 12/08: Urine culture: VRE UTI (patient not septic at time of current UTI) * 12/21: Urine culture: no growth * Patient is off IV abx, off contact isolation, no condom catheter (9) Hypernatremia (resolved) * normalized (10) Prophylactic care * s/p peg placement-->will require follow-up with GI outpatient to remove peg tube * Weaned off vent; saturating well s/p decanulation; and speaking * Continue with aggressive PT/OT with stair trainiing * Patient is tolerating PO feeds and medication per nursing * Patient has therapeutic INR; ordered for Coumadin for DVT+ Disposition * Patient is tolerating PO feeding and PO medications, discussed with nursing staff. Will need outpatient followup for peg tube removal. * Patient is doing remarkable. Patient will need continue aggressive PT/OT, started on rolling walker per PT. Patient's home has stair cases. * Monitor INR for Coumadin dosing
[2017-01-06 15:31] VITALS: RESP 20; O2SAT 100
[2017-01-07 07:35] LABS: INR 2.4
[2017-01-07 18:13] VITALS: BP 108/66; PULSE 89; TEMP 98.7
--- NOTE | 2017-01-07 21:46 | CP.PCM.DIS ---
Provider - Provider Date of Admission: 10/18/16 18:01 Attending physician: Johny Saldana DO Consults: consults 1. Critical care- Leo 2. Surgery- [place] 3. ID- Kathy 4. Neuro- Calvin 5. ENT- Behin 6. Palliative care 7. Pulm- Leo 8. Neurosurgery- [facility] Time Spent in preparation of Discharge (in minutes): 45 Hospital Course - Lab Results Lab Results: Micro Results 12/21/16 15:26 Urine Urine Culture - Final No Growth (<1,000 CFU/ML) 12/19/16 19:30 Urine,Clean Catch Urine Culture - Final 10-50,000 CFU/ML. MULTIPLE SPECIES. PROBABLE CONTAMINATION. 12/15/16 15:30 Nose MRSA Culture - Final MRSA NOT DETECTED 12/12/16 Unknown Nose MRSA Culture (Admit) - Final MRSA DETECTED 12/08/16 12:37 Urine,Clean Catch Urine Culture - Final Vancomycin Res E.faecalis 12/05/16 12:45 Urine Urine Culture - Final 10-50,000 CFU/ML. MULTIPLE SPECIES. PROBABLE CONTAMINATION. 11/28/16 12:58 Urine,Clean Catch Urine Culture - Final 50-100,000 CFU/ML. MULTIPLE SPECIES. SUGGEST REPEAT SPECIMEM. 11/26/16 22:32 Urine,Clean Catch Urine Culture - Final Pseudomonas Aeruginosa 11/25/16 12:10 Urine,Clean Catch Urine Culture - Final MULTIPLE SPECIES. SUGGEST REPEAT SPECIMEN. 11/21/16 Unknown Urine,Clean Catch Urine Culture - Final Yeast Species 11/09/16 15:00 Blood-Venous Blood Culture - Final NO GROWTH AFTER 5 DAYS 11/09/16 15:00 Blood-Venous Gram Stain - Final TEST NOT PERFORMED 11/09/16 13:40 Blood-Venous Blood Culture - Final NO GROWTH AFTER 5 DAYS 11/09/16 13:40 Blood-Venous Gram Stain - Final TEST NOT PERFORMED 11/09/16 Unknown Sputum Gram Stain - Final 11/09/16 Unknown Sputum Sputum Culture - Final NORMAL ORAL TODD 11/05/16 16:00 Blood-Venous Blood Culture - Final NO GROWTH AFTER 5 DAYS 11/05/16 16:00 Blood-Venous Gram Stain - Final TEST NOT PERFORMED 11/05/16 14:23 Blood-Venous Blood Culture - Final NO GROWTH AFTER 5 DAYS 11/05/16 14:23 Blood-Venous Gram Stain - Final TEST NOT PERFORMED 11/09/16 Unknown Urine Urine Culture - Final Yeast Species 11/06/16 12:13 Trachasp Gram Stain - Final 11/06/16 12:13 Trachasp Sputum Culture - Final Enterobacter Aerogenes 11/06/16 12:22 Urine,Clean Catch Urine Culture - Final Yeast Species 11/01/16 17:30 Blood-Venous Blood Culture - Final NO GROWTH AFTER 5 DAYS 11/01/16 17:30 Blood-Venous Gram Stain - Final TEST NOT PERFORMED 11/01/16 15:09 Blood-Venous Blood Culture - Final NO GROWTH AFTER 5 DAYS 11/01/16 15:09 Blood-Venous Gram Stain - Final TEST NOT PERFORMED 11/01/16 22:40 Urine Urine Culture - Final No Growth (<1,000 CFU/ML) 10/31/16 Unknown Naris MRSA Culture - Final MRSA NOT DETECTED 10/31/16 10:30 Trachasp Gram Stain - Final 10/31/16 10:30 Trachasp Sputum Culture - Final NORMAL ORAL TODD 10/31/16 10:21 Urine,Plaza Urine Culture - Final No Growth (<1,000 CFU/ML) 10/25/16 16:07 Blood-Venous Blood Culture - Final NO GROWTH AFTER 5 DAYS 10/25/16 16:07 Blood-Venous Gram Stain - Final TEST NOT PERFORMED 10/25/16 16:07 Blood-Venous Blood Culture - Final NO GROWTH AFTER 5 DAYS 10/25/16 16:07 Blood-Venous Gram Stain - Final TEST NOT PERFORMED 10/25/16 16:07 Trachasp Gram Stain - Final 10/25/16 16:07 Trachasp Sputum Culture - Final Serratia Marcescens Enterobacter Aerogenes 10/21/16 16:39 Blood-Venous Blood Culture - Final NO GROWTH AFTER 5 DAYS 10/21/16 16:39 Blood-Venous Gram Stain - Final TEST NOT PERFORMED 10/21/16 16:39 Blood-Venous Blood Culture - Final NO GROWTH AFTER 5 DAYS 10/21/16 16:39 Blood-Venous Gram Stain - Final TEST NOT PERFORMED 10/25/16 16:07 Urine,Plaza Urine Culture - Final No Growth (<1,000 CFU/ML) 10/22/16 Unknown Urine,Plaza Urine Culture - Final No Growth (<1,000 CFU/ML) 10/21/16 16:54 Trachasp Gram Stain - Final 10/21/16 16:54 Trachasp Sputum Culture - Final Klebsiella Pneumoniae Ssp Pneu 10/18/16 Unknown Nose MRSA Culture (Admit) - Final MRSA NOT DETECTED Most Recent Lab Values WBC 6.4 K/uL (4.8-10.8) 01/06/17 07: RBC 3.73 Mil/uL (4.40-5.90) L 01/06/17 07: Hgb 10.2 g/dL (12.0-18.0) L 01/06/17 07: Hct 31.1 % (35.0-51.0) L 01/06/17 07: MCV 83.2 fL (80.0-94.0) 01/06/17 07: MCH 27.3 pg (27.0-31.0) 01/06/17 07: MCHC 32.8 g/dL (33.0-37.0) L 01/06/17 07: RDW 17.6 % (11.5-14.5) H 01/06/17 07: Plt Count 356 K/uL (130-400) 01/06/17 07: MPV 8.0 fL (7.2-11.7) 01/06/17 07: Neut % (Auto) 57.5 % (50.0-75.0) 01/06/17 07: Lymph % (Auto) 31.7 % (20.0-40.0) 01/06/17 07: [place] % (Auto) 6.2 % (0.0-10.0) 01/06/17 07: Eos % (Auto) 4.0 % (0.0-4.0) 01/06/17 07: Baso % (Auto) 0.6 % (0.0-2.0) 01/06/17 07: Neut # 3.7 K/uL (1.8-7.0) 01/06/17 07: Lymph # 2.0 K/uL (1.0-4.3) 01/06/17 07: Haskell # 0.4 K/uL (0.0-0.8) 01/06/17 07: Eos # 0.3 K/uL (0.0-0.7) 01/06/17 07: Baso # 0.0 K/uL (0.0-0.2) 01/06/17 07:26 Neutrophils % (Manual) 82 % (50-75) H 11/13/16 07:01 Band Neutrophils % 3 % (0-2) H 11/08/16 06:56 Lymphocytes % (Manual) 9 % (20-40) L 11/13/16 07:01 Monocytes % (Manual) 7 % (0-10) 11/13/16 07:01 Eosinophils % (Manual) 2 % (0-4) 11/13/16 07:01 Basophils % (Manual) 1 % (0-2) 11/04/16 06:51 Myelocytes % 1 % (0-0) H 11/04/16 06:51 Differential Comment 12/15/16 06:24 Toxic Granulation Present 11/06/16 07:09 Platelet Estimate Normal (NORMAL) 11/13/16 07:01 Large Platelets Present 11/10/16 07:06 Giant Platelets Present 11/01/16 08:03 RBC Morphology Normal 11/13/16 07:01 Polychromasia Slight 11/09/16 07:37 Hypochromasia (manual) Slight 11/10/16 07:06 Poikilocytosis (manual Slight 11/10/16 07:06 Anisocytosis (manual) Slight 11/10/16 07:06 Microcytosis (manual) Slight 10/20/16 05:57 Macrocytosis (manual) Slight 10/20/16 05:57 Target Cells Slight 11/09/16 07:37 Tear Drop Cells Slight 11/09/16 07:37 Ovalocytes Slight 11/10/16 07:06 [place] Cells Slight 11/10/16 07:06 Schistocytes Slight 11/02/16 07:10 PT 27.3 SECONDS (9.7-12.2) H 01/07/17 07:13 INR 2.4 01/07/17 07:13 APTT 55 SECONDS (21-34) H D 01/05/17 06:14 D-Dimer, Quantitative 642 ng/mlDDU (0-243) H 12/12/16 14:15 Puncture Site Rb 10/29/16 04:35 pCO2 29 mm/Hg (35-45) L 12/12/16 09:17 pO2 193 mm/Hg (80-100) H 12/12/16 09:17 HCO3 25.8 mmol/L (21-28) 12/12/16 09:17 ABG pH 7.51 (7.35-7.45) H 12/12/16 09:17 ABG Total CO2 24.0 mmol/L (22-28) 12/12/16 09:17 ABG O2 Saturation 99.7 % (95-98) H 12/12/16 09:17 ABG Base Excess 1.0 mmol/L (-2.0-3.0) 12/12/16 09:17 ABG Hemoglobin 15.2 g/dL (11.7-17.4) 10/29/16 04:35 ABG Carboxyhemoglobin 0.9 % (0.5-1.5) 10/29/16 04:35 POC ABG HHb (Measured) 2.7 % (0.0-5.0) 10/29/16 04:35 ABG Methemoglobin 0.7 % (0.0-3.0) 10/29/16 04:35 Kalyan Test Na 10/29/16 04:35 ABG Potassium 4.4 mmol/L (3.6-5.2) 12/12/16 09:17 A-a O2 Difference 80.0 mm/Hg 10/29/16 04:35 Respiratory Index 0.9 10/29/16 04:35 Hgb O2 Saturation 95.7 % (95.0-98.0) 10/29/16 04:35 Sodium 137.0 mmol/l (132-148) 12/12/16 09: Chloride 115.0 mmol/L (98-107) H 12/12/16 09: Glucose 127 mg/dl (75-110) H 12/12/16 09:17 Lactate 0.7 mmol/L (0.7-2.1) 12/12/16 09:17 Mechanical Rate 24 10/29/16 04:35 FiO2 30.0 % 10/29/16 04:35 Tidal Volume 500 10/29/16 04:35 PEEP 5 10/29/16 04:35 Sodium 140 mmol/L (132-148) 01/06/17 07:26 Potassium 3.8 mmol/L (3.6-5.2) 01/06/17 07:26 Chloride 103 mmol/L (98-107) 01/06/17 07:26 Carbon Dioxide 29 mmol/L (22-30) 01/06/17 07:26 Anion Gap 12 (10-20) 01/06/17 07:26 BUN 16 mg/dL (9-20) 01/06/17 07:26 Creatinine 1.0 MG/DL (0.8-1.5) 01/06/17 07:26 Est GFR ( Amer) > 60 01/06/17 07:26 Est GFR (Non-Af Amer) > 60 01/06/17 07:26 POC Glucose (mg/dL) 103 mg/dL (65-110) 12/12/16 13:54 Random Glucose 81 mg/dL (75-110) 01/06/17 07:26 Hemoglobin A1c 5.7 % (4.2-6.5) 10/19/16 04:00 Serum Osmolality 310 mosm/kg (272-300) H 10/21/16 13:03 Calcium 8.8 mg/dl (8.6-10.4) 01/06/17 07:26 Phosphorus 4.7 mg/dL (2.5-4.5) H 01/02/17 06:56 Magnesium 2.0 mg/dL (1.6-2.3) 01/04/17 06:03 Total Bilirubin 0.6 mg/dL (0.2-1.3) 01/06/17 07:26 AST 37 U/L (17-59) 01/06/17 07:26 ALT 74 U/L (21-72) H 01/06/17 07:26 Alkaline Phosphatase 76 U/L (38-126) 01/06/17 07:26 Ammonia < 9 umol/L (9-33) L 10/18/16 16:09 Total Creatine Kinase 52 U/L (55-170) L 12/12/16 07:27 CK-MB (Mass) 0.78 ng/mL (0.0-3.38) 12/12/16 07:27 Troponin I 0.0180 ng/mL (0.00-0.120) 10/18/16 16:09 Troponin I, Quant 0.0160 ng/mL (0.00-0.120) 12/12/16 07:27 Total Protein 6.6 g/dL (6.3-8.3) 01/06/17 07:26 Albumin 3.2 g/dL (3.5-5.0) L 01/06/17 07:26 Globulin 3.4 gm/dL (2.2-3.9) 01/06/17 07:26 Albumin/Globulin Ratio 0.9 (1.0-2.1) L 01/06/17 07:26 Triglycerides 63 mg/dL (0-149) 10/18/16 16:09 Cholesterol 202 mg/dL (0-199) H 10/18/16 16:09 LDL Cholesterol Direct 130 mg/dL (0-129) H 10/18/16 16:09 HDL Cholesterol 52 mg/dL (30-70) 10/18/16 16:09 Prostate Specific Ag 2.56 ng/mL (0.00-4.0) 12/12/16 07:27 Procalcitonin 0.11 NG/ML (0.19-0.49) L 12/12/16 14:15 Free T4 1.11 ng/dL (0.78-2.19) 12/12/16 17:02 TSH 3rd Generation 2.10 mIU/L (0.46-4.68) 12/12/16 14:15 Arterial Blood Potassium 4.4 mmol/L (3.6-5.2) 12/12/16 09:17 Urine Color Yellow (YELLOW) 12/13/16 10:12 Urine Clarity Clear (Clear) 12/13/16 10:12 Urine pH 5.0 (5.0-8.0) 12/13/16 10:12 Ur Specific Superior 1.035 (1.003-1.030) H 12/13/16 10:12 Urine Protein Negative mg/dL (NEGATIVE) 12/13/16 10:12 Urine Glucose (UA) Normal mg/dL (Normal) 12/13/16 10:12 Urine Ketones Negative mg/dL (NEGATIVE) 12/13/16 10:12 Urine Blood Negative (NEGATIVE) 12/13/16 10:12 Urine Nitrate Negative (NEGATIVE) 12/13/16 10:12 Urine Bilirubin Negative (NEGATIVE) 12/13/16 10:12 Urine Urobilinogen 2.0 mg/dL (0.2-1.0) 12/13/16 10:12 Ur Leukocyte Esterase Neg Eula/uL (Negative) 12/13/16 10:12 Urine WBC (Auto) 2 /hpf (0-5) 12/13/16 10:12 Urine RBC (Auto) 5 /hpf (0-3) H 12/13/16 10:12 Ur Squamous Epith Cells 3 /hpf (0-5) 12/13/16 10:12 Calcium Oxalate Crystal Few /hpf (<OCC) H 11/29/16 07:27 Uric Acid Crystals Occ /hpf (<OCC) H 10/31/16 10:21 Urine Bacteria Many (<OCC) H 11/29/16 07:27 Hyaline Casts 0-2 /lpf (0-2) 11/29/16 07:27 Vancomycin Trough 18.2 ug/mL (5.0-10.0) H 11/15/16 13:58 Random Vancomycin 17.95 ug/mL 11/13/16 12:05 Urine Opiates Screen Negative (NEGATIVE) 10/19/16 07:20 Urine Methadone Screen Negative (NEGATIVE) 10/19/16 07:20 Ur Barbiturates Screen Negative (NEGATIVE) 10/19/16 07:20 Ur Phencyclidine Scrn Negative (NEGATIVE) 10/19/16 07:20 Ur Amphetamines Screen Negative (NEGATIVE) 10/19/16 07:20 U Benzodiazepines Scrn Negative (NEGATIVE) 10/19/16 07:20 U Oth Cocaine Metabols Negative (NEGATIVE) 10/19/16 07:20 U Cannabinoids Screen Negative (NEGATIVE) 10/19/16 07:20 Alcohol, Quantitative < 10 mg/dl (0-10) 10/18/16 16:09 Hepatitis A IgM Ab Negative (NEGATIVE) 12/08/16 06:35 Hep Bs Antigen Negative (NEGATIVE) 12/08/16 06:35 Hep B Core IgM Ab Negative (NEGATIVE) 12/08/16 06:35 Hepatitis C Antibody Negative (NEGATIVE) 12/08/16 06:35 Blood Type O POSITIVE 10/18/16 16:13 Antibody Screen Negative 10/18/16 16:13 - Hospital Course Hospital Course: Admit date: 10/18/16 DC date: 01/07/17 Attending : Dr. Vidal Consults 1. Critical care- Leo 2. Surgery- [place] 3. ID- Kathy 4. Neuro- Calvin 5. ENT- Behin 6. Palliative care 7. Pulm- Leo 8. Neurosurgery- [place] Procedures- intubation, tracheostomy, PEG tube, cardioversion Stable upon discharge HPI: see H/P Lab data: see lab section Discharge diagnoses 1. s/p basal ganglia hemorrhage 2. Cerebrovascular accident 3. Deep vein thrombosis 4. acute respiratory failure (resolved) 5. sepsis (resolved) 6. urinary tract infection (resolved) 7. Hypernatremia (resolved) Hospital course This is a 56 year old M with unknown past medical history presenting for medical evaluation of intracranial bleed. The patient arrived to the ED intubated and sedated. The patients ventilator was set to FiO2 100%, PEEP 5, tidal volume 500mL, and a respiratory rate of 14. The patient was accompanied by his daughter who last saw the patient in the morning around 10-11AM. The patient was asymptomatic at that time according to the daughter. The patient recently immigrated to the from the [facility] [place] in [place]. The daughter is unsure of the patient's past medical history. The patient is per the daughter, but is currently . (1) Intracranial hemorrhage Assessment & Plan: 10/18 CT Head: Left basal ganglia acute hemorrhage, possibly hypertensive with associated intraventricular hemorrhage and mass effect upon the left lateral aspect of the 3rd ventricle with the tip shift of the 3rd ventricle towards the right side. No generalized midline shift. Air-fluid level in sphenoid sinus common nonspecific. Please correlate for concern regarding acute sinusitis. Mild involutional changes. 10/19 CT Head: little interval change in the known 2.0 x 2.7 acute hematoma in left thalamus with intra ventricular extension of hemorrhage. Interval mild worsening of obstructive hydrocephalus. 10/24 CT Head: little interval change in the size of left thalamic hemorrhage 2.4x2.9 cm with intraventricular extension of hemorrhage and mild obstructive hydrocephalus. 2 mm midline shift from left to right with no evidence of herniation. Near complete resolution of hemorrhage within 4th ventricle. 11/03/16 CT Head; Interval decrease in size and density left basal ganglia hematoma; well-circumscribed peripheral rim of low attentuation edema about hematoma; combination of brain edema and brain necrosis; intraventricular hemorrhage has diminished. Ventricles hae also decreased in size temporal horns and atria remain prominent. Persistent compression of the 3rd and left lateral ventricle 12/16/16 CT Head: no acute findings noted * Neurosurgery per initial consult-->patient's prognosis dismal at beginning of admission * Neurology (Dr. Simpson) on board-->per 10/26 note: patient has attained maximum response from neuro point of view from this admission; keep nutritional status and avoid infections; treat with peg/trach; no antiplatelets for next 4-6 weeks (maintain MAP ~100) * On baby aspirin 81mg PO daily; discussed with neurology with 11/22/16 * Bridge therapeutic Lovenox to Coumadin for DVT, subtherapeutic Status: Chronic (2) Atrial Flutter Assessment & Plan: * Cardiology consulted (Dr. Brock) on board; case discussed * elevated D-dimer-->Ct angio negative for PE * 12/12/16 tachycardia-->Adenosine given --> Atrial flutter--> did not improve with digoxin, cardizem, and amiodarone, requiring cardioversion, which converted * Cardiology consulted (Dr. Brcok) on board; case discussed * Thyroid studies negative * Amiodarone 200mg PO daily (3) Hypertension Assessment & Plan: * monitor vital signs * controlled * Norvasc 10mg PO daily (4) Deep vein thrombosis * per 12/12/16 Doppler: right peroneal vein DVT+ * Therapuetic Lovenox restarted today - discontinued * Coumadin 5mg PO tonight, f/u INR in the morning * 10/09: INR 2.2 (5) Acute respiratory failure (resolved) Assessment & Plan: * s/p tracheostomy 10/28/16 * Patient completed trach collar. * Weaning completed; off ventilator * Saturating well. * Monitor dressing change of trach site * Pulmonary (Dr. Bailey) consulted to assist with weaning protocol * Mucomyst PRN to help thin out secretions * Duonebs PRN shortness of breathe * monitor and may need suctioning PRN * Completed decannulation on 10/30/16; saturating well * Consulted speech-->patient not appropriate for speak-easy valve status post decannulation; encourage speaking * Discussed with ENT-->outpatient due to mild vocal cord dysfunction * Discussed with swallow-->patient has a strong cough, can be started on pleasure feedings and/or pureed diet to try to transition off peg Status: resolved (6) CVA (cerebral vascular accident) Assessment & Plan: * Hemorrhagic stroke with associated hypotension and basal ganglia involvement on admission * hemoglobin A1c:5.7 * Cholestrol: 202, TG: LDL:130 HDL:52 * Aspirin 81mg PO daily * Blood pressure control monitoring * Start on Crestor 5mg POqHS * Patient is tolerating PO feeds and medications (7) Sepsis (resolved) Assessment & Plan: * Per 11/05; Fever 103F and associated leukocytosis: 21.8; infection: pneumonia ( which was treated with Meropenem during the course of hospitalization) * Infectious disease on board (Dr. Chavez) * 10/21 Sputum-Klebsiella (sensitive to Maxipime) * 10/25 Serratia and Enterobacter (sensitive to Maxipime) * 10/31 Sputum: normal= * 11/06: Enterobacter which is sensitive Meropenem (switch from Maxipime) * 11/06 Urine culture: yeast * 11/09 Urine culture: yeast * 11/09 Blood culture: no growth for 5 days X2 * 11/21 Urine culture: yeast * 11/26: Urine culture: Pseudomonas * 12/08: Urine culture: VRE UTI (patient not septic at time of current UTI) * 12/21: Urine culture: no growth * Patient is off IV abx, off contact isolation, no condom catheter (8) Urinary Tract Infection (resolved) * 12/08/16 VRE UTI * Multiple UTI infections * Yeast urine treated with Diflucan during hospitalization * Pseudomonas treated with Cipro during hospitalization * VRE UTI currently treated with Tigecycline and contact isolation * Discontinue [place] catheter * Infectious disease (Dr. Chavez) on board * Florastor 250mg PO bid * 12/08: Urine culture: VRE UTI (patient not septic at time of current UTI) * 12/21: Urine culture: no growth * Patient is off IV abx, off contact isolation, no condom catheter (9) Hypernatremia (resolved) * normalized (10) Prophylactic care * s/p peg placement-->will require follow-up with GI outpatient to remove peg tube * Weaned off vent; saturating well s/p decannulation; and speaking * Continue with aggressive PT/OT until cleared for stairs - per PT patient is now able to do stairs * Patient is tolerating PO feeds and medication per nursing * Patient is subtherapuetic INR; will restart bridge to Coumadin for DVT+, Ordered for Coumadin tonight 5mg Disposition * Patient is tolerating PO feeding and PO medications, discussed with nursing staff. Will need outpatient followup for peg tube removal. * Patient is doing remarkable. Patient will need continue aggressive PT/OT, started on rolling walker per PT. Patient's home has stair cases. * Monitor INR for Coumadin dosing; Lovenox discontinued Discharge instructions Please discharge patient to home as per Dr. Vidal. Patient to go some with rolling walker. Please take the following new medications as prescribed: Aspirin 81 mg PO daily for stroke prevention Simvastatin 40 mg PO daily for cholesterol Amiodarone 200 mg PO daily for heart rate control Norvasc 10 mg PO daily for high blood pressure Coumadin 5 mg PO daily until Monday01/10/17. Go to the [facility] on 01/10/17 to have INR checked and Coumadin dose will be adjusted based on INR at that time. You will need your INR checked weekly for correct medication dose. INR goal 2- 3. You will need to be on Coumadin for the next 3-6 months. The soonest date to stop medication is March 14, 2017 (3 month travis). Please take over the counter Pepcid 20 mg by mouth daily for acid reflux. Will need to see stomach doctor Dr. Farfan to remove PEG tube. Will need to see speech therapy for hoarseness of voice. Continue physical therapy at home. Instructions explained to son and daughter at bedside who understand and agree. Discharge meds Aspirin 81 mg PO daily for stroke prevention Simvastatin 40 mg PO daily for cholesterol Amiodarone 200 mg PO daily for heart rate control Norvasc 10 mg PO daily for high blood pressure Coumadin 5 mg PO daily - Date & Time of H&P Date of H&P: 10/18/16 Time of H&P: 17:30 Discharge Exam - Head Exam Head Exam: ATRAUMATIC, NORMAL INSPECTION, NORMOCEPHALIC - Eye Exam Eye Exam: EOMI - ENT Exam ENT Exam: Mucous Membranes Moist - Neck Exam Neck exam: Full Rom, Normal Inspection - Respiratory Exam Respiratory Exam: NORMAL BREATHING PATTERN, UNREMARKABLE - Cardiovascular Exam Cardiovascular Exam: +S1, +S2 - GI/Abdominal Exam GI & Abdominal Exam: Normal Bowel Sounds - Extremities Exam Extremities exam: full ROM, normal inspection - Neurological Exam Neurological exam: Alert, Oriented x3 - Psychiatric Exam Psychiatric exam: Normal Affect, Normal Mood - Skin Skin Exam: Dry, Intact, Normal Color, Warm Discharge Plan - Discharge Medications Prescriptions: Amiodarone Hydrochloride [Cordarone] 200 mg PO DAILY #30 tab amLODIPine [Norvasc] 10 mg PO DAILY #30 tab Aspirin [Aspirin Chewable] 81 mg PO DAILY #30 Simvastatin 40 mg PO DAILY #30 tablet Warfarin [Coumadin] 5 mg PO 1800 #14 tab - Follow Up Plan Condition: STABLE Disposition: HOME/ ROUTINE Instructions: Warfarin (By mouth), Aspirin (By mouth), Amiodarone (By mouth), Amlodipine (By mouth), Hemorrhagic Stroke (DC), Hemorrhagic Stroke (GEN), Hypertension (DC), Altered Mental Status (GEN), Pneumonia (DC) Additional Instructions: Please discharge patient to home as per Dr. Vidal. Patient to go some with rolling walker. Please take the following new medications as prescribed: Aspirin 81 mg PO daily for stroke prevention Simvastatin 40 mg PO daily for cholesterol Amiodarone 200 mg PO daily for heart rate control Norvasc 10 mg PO daily for high blood pressure Coumadin 5 mg PO daily until Monday01/10/17. Go to the [facility] on 01/10/17 to have INR checked and Coumadin dose adjusted based on INR. You will need your INR checked weekly for correct medication dose. INR goal 2- 3. You will need to be on Coumadin for the next 3-6 months. The soonest date to stop medication is March 14, 2017 (3 month travis). Please take over the counter Pepcid 20 mg by mouth daily for acid reflux. Will need to see stomach doctor Dr. Farfan to remove PEG tube. Will need to see speech therapy for hoarseness of voice. Continue physical therapy at home. Instructions explained to son and daughter at bedside who understand and agree. Referrals: [facility] [Provider Group] Geo Farfan MD [Staff Provider] - Enoc Simpson MD [Staff Provider] -
== END 2017-01-07 20:11 | disposition home or self-care (01) | DRG 878 ==
LOC: C.ER 15:42 → C.9I 18:01 → C.3T 10-31 15:48 → C.9I 12-12 14:45 → C.6T 12-15 16:29
PROVIDERS: ADMIT Hospitalist; ATTEND Hospitalist
PROC: 5A1955Z Respiratory Ventilation, Greater than 96 Consecutive Hours (ICD-10-PCS; 2016-10-18)
PROC: 02HV33Z Insertion of Infusion Device into Superior Vena Cava, Percutaneous Approach (ICD-10-PCS; 2016-10-19)
PROC: 0B113F4 Bypass Trachea to Cutaneous with Tracheostomy Device, Percutaneous Approach (ICD-10-PCS; principal; 2016-10-28 12:00)
PROC: 0DH63UZ Insertion of Feeding Device into Stomach, Percutaneous Approach (ICD-10-PCS; 2016-11-16)
PROC: 3E0G76Z Introduction of Nutritional Substance into Upper GI, Via Natural or Artificial Opening (ICD-10-PCS; 2016-11-17)
PROC: 0CJS8ZZ Inspection of Larynx, Via Natural or Artificial Opening Endoscopic (ICD-10-PCS; 2016-12-07)
PROC: 5A2204Z Restoration of Cardiac Rhythm, Single (ICD-10-PCS; 2016-12-12)
DX: I61.5 Nontraumatic intracerebral hemorrhage, intraventricular (principal); R40.20 Unspecified coma; R65.20 Severe sepsis without septic shock; G93.6 Cerebral edema; J69.0 Pneumonitis due to inhalation of food and vomit; G93.1 Anoxic brain damage, not elsewhere classified; A41.9 Sepsis, unspecified organism; J15.0 Pneumonia due to Klebsiella pneumoniae; J96.90 Respiratory failure, unspecified, unspecified whether with hypoxia or hypercapnia; T85.79XA Infection and inflammatory reaction due to other internal prosthetic devices, implants and grafts, initial encounter; I82.491 Acute embolism and thrombosis of other specified deep vein of right lower extremity; N18.9 Chronic kidney disease, unspecified; I48.92 Unspecified atrial flutter; N39.0 Urinary tract infection, site not specified; G91.1 Obstructive hydrocephalus; E87.0 Hyperosmolality and hypernatremia; G81.91 Hemiplegia, unspecified affecting right dominant side; R49.0 Dysphonia; Z51.5 Encounter for palliative care; J01.90 Acute sinusitis, unspecified; Z87.891 Personal history of nicotine dependence; I12.9 Hypertensive chronic kidney disease with stage 1 through stage 4 chronic kidney disease, or unspecified chronic kidney disease; M19.90 Unspecified osteoarthritis, unspecified site; I47.1 Supraventricular tachycardia; Y84.8 Other medical procedures as the cause of abnormal reaction of the patient, or of later complication, without mention of misadventure at the time of the procedure; D64.9 Anemia, unspecified; R47.01 Aphasia; B95.2 Enterococcus as the cause of diseases classified elsewhere; Z16.21 Resistance to vancomycin; E78.5 Hyperlipidemia, unspecified

== ENCOUNTER 2017-02-18 20:38 | Emergency (ER) | payer MEDICAID, OTHER ==
[2017-02-18 20:39] VITALS: PULSE 152
[2017-02-18 20:55] VITALS: BP 160/86; PULSE 100; RESP 18; TEMP 97.9; O2SAT 100
--- NOTE | 2017-02-18 21:01 | C.PDOC ---
Time Seen by Provider: 02/18/17 21:01 Chief Complaint (Nursing): GI Problem History Per: Patient History/Exam Limitations: no limitations Onset/Duration Of Symptoms: Days Current Symptoms Are (Timing): Still Present Context: Other Severity: None Radiation Of Pain To:: None Associated Symptoms: denies: Fever, Chills, Nausea, Vomiting Exacerbating Factors: None Alleviating Factors: None Last Bowel Movement: Today Recent travel outside of the [place]: No Additional History Per: Family Past Medical History Reviewed: Historical Data, Nursing Documentation, Vital Signs Vital Signs: Last Vital Signs Temp 97.9 F 02/18/17 20:51 Pulse 100 H 02/18/17 20:51 Resp 18 02/18/17 20:51 BP 160/86 H 02/18/17 20:51 Pulse Ox 100 02/18/17 21:01 - Medical History PMH: Arthritis, HTN Denies: Chronic Kidney Disease - [facility] Procedures BYPASS TRACHEA TO CUTANEOUS WITH TRACH DEV, PERC APPROACH (10/18/16) INSERTION OF FEEDING DEVICE INTO STOMACH, PERC APPROACH (10/18/16) INSERTION OF INFUSION DEV INTO SUP VENA CAVA, PERC APPROACH (10/18/16) INSPECTION OF LARYNX, ENDO (10/18/16) INTRODUCTION OF NUTRITIONAL INTO UP GI, VIA OPENING (10/18/16) RESPIRATORY VENTILATION, GREATER THAN 96 CONSECUTIVE HOURS (10/18/16) SABIANISM OF CARDIAC RHYTHM, SINGLE (10/18/16) Family History: States: No Known Family Hx - Social History Hx Alcohol Use: No Hx Substance Use: No Review Of Systems Constitutional: Negative for: Fever, Chills Gastrointestinal: Positive for: Other (peg in place). Negative for: Nausea, Vomiting, Abdominal Pain Genitourinary: Negative for: Dysuria Musculoskeletal: Negative for: Back Pain Skin: Positive for: Rash, Other (around peg insertion site) Neurological: Negative for: Weakness Physical Exam - Physical Exam Appears: Non-toxic, No Acute Distress Skin: Warm, Dry Chest: Symmetrical Cardiovascular: Rhythm Regular Respiratory: No Rales, No Rhonchi, No Wheezing Gastrointestinal/Abdominal: Soft, No Tenderness, No Distention, Other (peg in place with small area of abrassion and small amount of dried blood) Back: No CVA Tenderness ED Course And Treatment O2 Sat by Pulse Oximetry: 100 Pulse Ox Interpretation: Normal Reevaluation Time: 21:12 Reassessment Condition: Improved Medical Decision Making Medical Decision Making: Upon provider reevaluation patient is feeling better, is medically stable, and requires no further treatment in the ED at this time. Patient will be discharged home . Counseling was provided and all questions were answered regarding diagnosis and need for follow up with the referred clinic. There is agreement to discharge plan. Return if symptoms persist or worsen. Disposition Counseled Patient/Family Regarding: Studies Performed, Diagnosis, Need For Followup - Disposition Referrals: [facility] [Outside] [facility] [Outside] Disposition: HOME/ ROUTINE Disposition Time: 21:01 Condition: FAIR Instructions: How to Use and Care for Your PEG Tube (ED) - Clinical Impression Clinical Impression: PEG tube malfunction
== END 2017-02-18 21:16 | disposition home or self-care (01) ==
LOC: C.ER 20:38
DX: K94.23 Gastrostomy malfunction (principal); Y84.8 Other medical procedures as the cause of abnormal reaction of the patient, or of later complication, without mention of misadventure at the time of the procedure